=== PATIENT | male | born 1960 | race Caucasian/White ===

== ENCOUNTER 2020-03-19 06:40 | Emergency (ER) | payer MEDICARE, MEDICAID, SELFPAY ==
[2020-03-19] VITALS (7 sets, daily range): BP systolic 140–151; BP diastolic 86–101; PULSE 89–94; RESP 12–20; TEMP 36.6; O2SAT 95–98; BMI 44.0
--- NOTE | 2020-03-19 06:55 | CT_ITS ---
EXAMINATION: CT ANGIOGRAM OF THE CHEST WITH AND WITHOUT CONTRAST (CT PULMONARY ANGIOGRAM FOR PE) CLINICAL INFORMATION: Reason for Exam Chest pain with history of PE. COMPARISON: None TECHNIQUE: Prior to contrast administration, noncontrast localization images were obtained. Subsequently, multidetector volumetric imaging was performed from the thoracic inlet to below the diaphragms following the administration of 65 mL Omnipaque 350 intravenous contrast. No contrast reaction reported Sagittal, coronal, and MIP oblique sagittal reformatted images were obtained on the CT workstation, uploaded to PACS, and reviewed. This CT examination was performed using dose optimization techniques as appropriate, variously including the following: *Automated exposure control *Adjustment of mA and/or kV according to patient size (this includes techniques or standardized protocols for targeted exams where dose is matched to indication/reason for exam; i.e. extremities or head) *Use of iterative reconstruction technique Total exam dose-length product 615 mGy-cm FINDINGS: QUALITY OF STUDY/CONTRAST BOLUS: Satisfactory. PULMONARY ARTERIES: No central or segmental pulmonary emboli. THORACIC AORTA: No evidence of numerous on. LUNG: No focal consolidation, nodules or masses. PLEURA: No pleural effusion or pneumothorax. MEDIASTINUM: Normal heart size. No pericardial effusion. No hilar or mediastinal lymphadenopathy. No evidence of septal bowing or right heart strain. CHEST WALL/AXILLA: No axillary or internal mammary lymphadenopathy. OSSEOUS STRUCTURES: There is a healing right lateral sixth rib fracture. No additional fracture seen. There is moderate spondylosis seen throughout dorsal spine. UPPER ABDOMEN: Visualized liver, spleen and pancreas appears unremarkable. There is a gastric bypass/sleeve surgery. The gallbladder has been surgically removed. No reflux of contrast into the hepatic veins to suggest elevated right heart pressures. CT/CT angio chest PE protocol IMPRESSION: No acute intrathoracic process seen. No evidence of PE. No evidence of aortic dissection. The lungs are clear. Healing right lateral sixth rib fracture. VTE: negative
--- NOTE | 2020-03-19 06:56 | ED_ITS ---
HPI - Chest Pain General Chief Complaint: Chest Pain Stated Complaint: CHEST PAIN Time Seen by Provider: 03/19/20 06:55 Source: patient and EMS Mode of arrival: EMS Limitations: no limitations History of Present Illness HPI narrative: Left-sided chest pain, patient describes the pain as a constant dull aching pain to the left side of the chest radiating to the left shoulder, patient stated that the pain is constant started 2 days ago, associated with cannot take a deep breath, nothing worsens the pain or improve the pain. Patient stated he was evaluated at [facility] yesterday for the pain and he was told is not cardiac related. 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 Related Data Allergies Allergy/AdvReac Type Severity Reaction Status Date / Time bupropion [From WELLBUTRIN] AdvReac Unknown SEIZURE Verified 03/19/20 06:59 Review of Systems Review of Systems: All other systems are reviewed and are negative Constitutional: Reports as per HPI and Reports no additional constitutional complaints Eyes: Reports as per HPI and Reports no additional eye complaints Reports system reviewed and no additional complaints, except as documented Cardiovascular: Reports as per HPI and Reports no additional cardiovascular complaints Respiratory: Reports as per HPI and Reports no additional respiratory complaints Gastrointestinal: Reports as per HPI and Reports no additional gastrointestinal complaints Genitourinary: Reports no additional female genitourinary complaints Musculoskeletal: Reports no additional musculoskeletal complaints Skin/Breast: Reports system reviewed and no additional complaints, except as docu Psychiatric: Reports no additional psychiatric complaints Endocrine: Reports no additional endocrine complaints Hematologic/Lymphatic: Reports no additional hematologic/lymphatic complaints Allergic/Immunologic: Reports no additional allergic/immunologic complaints Reports system reviewed and no additional complaints, except as documented and R eports Abnormal speech present [facility] Past Medical History Medical History (Updated 03/19/20 @ 13:48 by Santosh Camejo MD) Atrial fibrillation Obesity Pulmonary embolism Surgical History History of inguinal hernia repair Hx of gastric bypass S/P cholecystectomy Social History Social History Alcohol intake: current Alcohol intake frequency: 3 or more drinks per day Alcohol type: hard liquor Smoking Status: Never smoker Use of substances other than those prescribed or required for medical reasons: No Advance Directives: No Advance Directives Information Provided: No Physical Exam Vital Signs: Vital Signs: Last Vital Signs Temp 98 F 03/19/20 06:49 Pulse 94 03/19/20 11:46 Resp 20 03/19/20 11:46 BP 140/91 H 03/19/20 11:46 Pulse Ox 97 03/19/20 11:46 Body Mass Index 44.0 Vital signs have been reviewed as normal and appeared to be correct. Blood pressure normal. Heart rate normal. Respiration rate normal. Temperature normal. Oxygen saturation normal. Appearance: Alert. Oriented X3. No acute distress. Head: Normal external exam. Normocephalic. Atraumatic. No Richardson signs noted. No raccoon eyes noted Eyes: PERRLA. EOMI. Conjunctiva and sclera normal. Eyelids normal. ENT: EAC normal. TM's Normal. Pharynx normal. Uvula midline. Moist mucous membranes. No trismus noted. No drooling noted. No muffled voice noted. Neck: Normal inspection. Neck supple. FROM. No adenopathy. Thyroid Normal. No meningeal signs. No neck mass noted. CVS: Normal heart rate and rhythm. Heart sound normal. No murmurs noted. Pulses normal throughout. Respiratory: No respiratory distress. Painless inspiration. Breath sounds normal. No wheezes/rales/rhonchi noted. Chest nontender. No accessory muscle usage noted or decreased air movement noted. Abdomen: Soft and nontender. Bowel sounds normal in all 4 quadrants. No distention noted. No organomegaly noted. No visible injury noted. Back: No CVA tenderness. Full range of motion noted. Skin: Skin warm and dry. Normal skin color. Normal skin turgor. No rashes/lesions/lacerations noted. Extremities: No lower extremity edema. Extremities exhibit normal range of motion. Extremities nontender. Neuro: Oriented X 3. No motor deficit. No sensory deficit. Reflexes normal. MDM - Chest Pain MDM Narrative Medical decision making narrative: Assessment and plan. This is a 59-year-old male presented with left-sided constant chest pain for the past few days, patient has been evaluated at [facility] yesterday and patient was discharged home after he was reassured, patient today had 2-ve troponin, unremarkable CT of the chest for intrathoracic pathology, EKG is unremarkable. Given patient had a negative cardiac marker at a different facility acute ACS is extremely unlikely. Patient now is more concern of detoxing from alcohol, care team input is appreciated, patient will be discharged to a detox place at [facility]. Lab Data Result diagrams: 03/19/20 07:37 03/19/20 07:37 Labs: Lab Results 03/19/20 03/19/20 03/19/20 Range/Units 07:37 07:37 07:37 WBC 7.1 (4.8-10.8) X10*3/uL RBC 3.85 L (4.60-5.80) X10*6/uL Hgb 10.2 L (14.0-18.0) g/dl Hct 32.9 L (42-52) % MCV 85.5 (80-98) fL MCH 26.5 L (27.0-33.0) pg MCHC 31.0 (31.0-36.0) g/dl RDW 16.5 H (11.0-16.0) % Plt Count 172 (160-400) X10*3/uL MPV 10.3 (9.4-12.4) fL Immature Gran % (Auto) 0.6 H (0.0-0.4) % Neut % (Auto) 78.7 H (45-73) % Lymph % (Auto) 10.4 L (20-40) % [place] % (Auto) 8.0 (2-11) % Eos % (Auto) 1.7 (0-4) % Baso % (Auto) 0.6 (0-2) % Lymph # (Auto) 0.7 L (1.2-4.9) X10*3/uL [place] # (Auto) 0.6 (0.1-1.2) X10*3/uL Eos # (Auto) 0.1 (0.0-0.4) X10*3/uL Baso # (Auto) 0.0 (0.0-0.2) X10*3/uL Abs Immat Gran (auto) 0.04 H (0.00-0.03) X10*3/uL Absolute Neuts (auto) 5.6 (2.0-8.3) X10*3/uL Absolute Nucleated RBC 0.000 (0.0-0.012) X10*3/uL Nucleated RBC % (auto) 0.0 (0.0-0.2) /100WBC D-Dimer 250 NG/ML Sodium 144 (135-145) mmol/L Potassium 4.2 (3.3-5.1) mmol/l Chloride 113 H (96-108) mmol/L Carbon Dioxide 22 (22-29) mmol/L Anion Gap 13 (12-20) BUN 17 H (9-16) mg/dL Creatinine 0.82 (0.5-1.4) mg/dL Estim Creat Clear Calc 141.2 Estimated GFR > 60 Random Glucose 91 (60-115) mg/dL Calcium 7.8 L (8.4-10.2) mg/dL Total Bilirubin 0.4 (0.0-1.0) mg/dL Direct Bilirubin 0.2 (0.0-0.5) mg/dL AST 32 (5-37) U/L ALT 40 (0-40) U/L Alkaline Phosphatase 80 (39-117) U/L Troponin I High Sens (<3.5-35.0) ng/L B-Natriuretic Peptide (<100) pg/mL Total Protein 6.1 L (6.5-8.0) g/dL Albumin 3.5 (3.5-5.0) g/dL Lipase 25 (8-78) U/L Urine Color Urine Appearance Urine pH (5.0-8.0) Ur Specific [place] (1.005-1.025) Urine Protein (NEG-TRACE) MG/DL Urine Glucose (UA) (NEG) MG/DL Urine Ketones (NEG) MG/DL Urine Blood (NEG) Urine Nitrite (NEG) Ur Leukocyte Esterase (NEG) Urine RBC (0) /HPF Urine WBC (0-4) /HPF Ur Squamous Epith Cells /LPF Urine Bacteria /LPF 03/19/20 03/19/20 03/19/20 Range/Units 07:37 07:59 11:18 WBC (4.8-10.8) X10*3/uL RBC (4.60-5.80) X10*6/uL Hgb (14.0-18.0) g/dl Hct (42-52) % MCV (80-98) fL MCH (27.0-33.0) pg MCHC (31.0-36.0) g/dl RDW (11.0-16.0) % Plt Count (160-400) X10*3/uL MPV (9.4-12.4) fL Immature Gran % (Auto) (0.0-0.4) % Neut % (Auto) (45-73) % Lymph % (Auto) (20-40) % [place] % (Auto) (2-11) % Eos % (Auto) (0-4) % Baso % (Auto) (0-2) % Lymph # (Auto) (1.2-4.9) X10*3/uL [place] # (Auto) (0.1-1.2) X10*3/uL Eos # (Auto) (0.0-0.4) X10*3/uL Baso # (Auto) (0.0-0.2) X10*3/uL Abs Immat Gran (auto) (0.00-0.03) X10*3/uL Absolute Neuts (auto) (2.0-8.3) X10*3/uL Absolute Nucleated RBC (0.0-0.012) X10*3/uL Nucleated RBC % (auto) (0.0-0.2) /100WBC D-Dimer NG/ML Sodium (135-145) mmol/L Potassium (3.3-5.1) mmol/l Chloride (96-108) mmol/L Carbon Dioxide (22-29) mmol/L Anion Gap (12-20) BUN (9-16) mg/dL Creatinine (0.5-1.4) mg/dL Estim Creat Clear Calc Estimated GFR Random Glucose (60-115) mg/dL Calcium (8.4-10.2) mg/dL Total Bilirubin (0.0-1.0) mg/dL Direct Bilirubin (0.0-0.5) mg/dL AST (5-37) U/L ALT (0-40) U/L Alkaline Phosphatase (39-117) U/L Troponin I High Sens 20.9 19.1 (<3.5-35.0) ng/L B-Natriuretic Peptide 286 H (<100) pg/mL Total Protein (6.5-8.0) g/dL Albumin (3.5-5.0) g/dL Lipase (8-78) U/L Urine Color YELLOW Urine Appearance CLEAR Urine pH 5.5 (5.0-8.0) Ur Specific [place] >= 1.030 H (1.005-1.025) Urine Protein TRACE (NEG-TRACE) MG/DL Urine Glucose (UA) NEG (NEG) MG/DL Urine Ketones NEG (NEG) MG/DL Urine Blood 1+ H (NEG) Urine Nitrite NEG (NEG) Ur Leukocyte Esterase NEG (NEG) Urine RBC 1-4 (0) /HPF Urine WBC 0 (0-4) /HPF Ur Squamous Epith Cells TRACE /LPF Urine Bacteria NONE /LPF Imaging Data CT angio chest: Radiologist's impression: No acute intrathoracic process seen. No evidence of PE. No evidence of aortic dissection. The lungs are clear. Healing right lateral sixth rib fracture. ECG Data ECG #1: Interpretation: Atrial fibrillation at 89 beats per minute, right bundle branch block, normal intervals, no acute ST-T changes. Discharge Plan Discharge Clinical Impression: Chest pain, non-cardiac, Alcohol abuse Patient Disposition: Xfer SNF Instructions: Alcohol Withdrawal (ED), Noncardiac Chest Pain (ED) Referrals: Maty Darnell MD [Primary Care Provider] - 2 days
[2020-03-19 07:54] LABS: MANUAL DIFF FLAG NO
[2020-03-19] MEDS: Morphine Sulfate 2 MG/ML CARTRIDGE 1 MG IVPUSH (07:55)
--- NOTE | 2020-03-19 08:02 | ECG_ITS ---
Test Reason : CHEST WALL PAIN Blood Pressure : / mmHG Vent. Rate : 089 BPM Atrial Rate : 090 BPM P-R Int : 000 ms QRS Dur : 138 ms QT Int : 408 ms P-R-T Axes : 000 016 001 degrees QTc Int : 496 ms Atrial fibrillation Right bundle branch block Abnormal ECG When compared with ECG of 20-SEP-2019 07:09, Right bundle branch block is now Present Referred By: Santosh Camejo Electronically Signed By:SARA CERVANTES
[2020-03-19 08:04] LABS: Basophils Percent Auto 0.6 % (0-2); Eosinophils Absolute Auto 0.1 X10*3/uL (0.0-0.4); Eosinophils Percent Auto 1.7 % (0-4); Hematocrit 32.9 % (42-52); Hemoglobin 10.2 g/dl (14.0-18.0); Imm Gran Abs Auto 0.04 X10*3/uL (0.00-0.03); Imm Gran Pct Auto 0.6 % (0.0-0.4); Lymphocytes Absolute Auto 0.7 X10*3/uL (1.2-4.9); Lymphocytes Percent Auto 10.4 % (20-40); Mean Corpuscular Hemoglobin 26.5 pg (27.0-33.0); Mean Corpuscular Volume 85.5 fL (80-98); Mean Platelet Volume 10.3 fL (9.4-12.4); Monocytes Absolute Auto 0.6 X10*3/uL (0.1-1.2); Neutrophils Absolute Auto 5.6 X10*3/uL (2.0-8.3); Neutrophils Percent Auto 78.7 % (45-73); Platelet Count 172 X10*3/uL (160-400); Red Blood Count 3.85 X10*6/uL (4.60-5.80); Red Cell Distribution Width 16.5 % (11.0-16.0); White Blood Count 7.1 X10*3/uL (4.8-10.8)
[2020-03-19 08:09] LABS: Glucose Urine UA NEG (NEG); Leukocyte Esterase Urine NEG (NEG); Nitrite Urine NEG (NEG); PH 5.5 (5.0-8.0); Specific Gravity - Urine >= 1.030 (1.005-1.025); Urine Blood 1+ (NEG); Urine Ketones NEG (NEG); Urine Protein TRACE MG/DL (NEG-TRACE)
[2020-03-19 08:11] LABS: Appearance Urine CLEAR; Color Urine YELLOW
[2020-03-19 08:19] LABS: D Dimer 250 NG/ML
[2020-03-19 08:28] LABS: Squamous Epithelial Cell Urine TRACE /LPF; WBC Urine 0 /HPF (0-4)
[2020-03-19 08:29] LABS: Alanine Aminotransferase 40 U/L (0-40); Albumin Level 3.5 g/dL (3.5-5.0); Alkaline Phosphatase 80 U/L (39-117); Anion Gap 13 (12-20); Aspartate Amino Transferase 32 U/L (5-37); Bilirubin Direct 0.2 mg/dL (0.0-0.5); Bilirubin Total 0.4 mg/dL (0.0-1.0); Blood Urea Nitrogen 17 mg/dL (9-16); Calcium 7.8 mg/dL (8.4-10.2); Carbon Dioxide 22 mmol/L (22-29); Chloride 113 mmol/L (96-108); Creatinine Clr Calc Pharmacy 141.2; Estimated Glomerular Filt Rate > 60; Glucose Random 91 mg/dL (60-115); Lipase 25 U/L (8-78); Potassium 4.2 mmol/l (3.3-5.1); Sodium 144 mmol/L (135-145); Total Protein 6.1 g/dL (6.5-8.0)
[2020-03-19 08:32] LABS: B Type Natriuretic Peptide 286 pg/mL (<100); Troponin-I High Sensitivity 20.9 ng/L (<3.5-35.0)
[2020-03-19] MEDS: iohexoL 350 MG/ML 100 ML INFUS..BTL IV (09:34)
--- NOTE | 2020-03-19 11:58 | PC.NURSE ---
Pt expressed a need to go to detox for etoh withdrawal. Stated he has been trying to get into [facility]. Dr Camejo made aware and ordered a care team consult. Call placed to care to notify them of consult.
[2020-03-19 12:07] LABS: Troponin-I High Sensitivity 19.1 ng/L (<3.5-35.0)
--- NOTE | 2020-03-19 14:00 | MHC.CARE ---
1245 Met with patient in ED bed 9 who came to the ED by ambulance with reported chest pain and requested help to detox from alcohol today. He stated that yesterday afternoon he went to [facility] as a walk-in and after a 5hr wait there were no beds, still seeking help at this time. Multiple calls to [facility] and [place], [facility] had opening but was unable do an intake with patient. Ultimately they advised him to come for a walk-in now--said coming by taxi from [place] to [place] he would be in good shape to secure a bed today. Called [employer], patient will pay for this himself, sent all patient's labs, test results and summary with him. Communicated with MD and RN
[2020-03-19 14:07] LABS: COVID-19 Test Negative (Negative)
== END 2020-03-19 13:57 | disposition skilled nursing facility (03) ==
PROVIDERS: Emergency Provider Emergency Medicine
DX: R07.89 Other chest pain (principal); F10.10 Alcohol abuse, uncomplicated; Y90.9 Presence of alcohol in blood, level not specified; Z20.828 Contact with and (suspected) exposure to other viral communicable diseases; I48.91 Unspecified atrial fibrillation; Z86.711 Personal history of pulmonary embolism; Z90.49 Acquired absence of other specified parts of digestive tract; Z98.84 Bariatric surgery status
CPT/HCPCS: 36415; 71275; 80048; 80076; 81001; 83690; 83880; 84484; 85025; 85379; 87635; 93005; 96374; 99285; J2270; Q9967

== ENCOUNTER → 2020-06-14 15:13 | Outpatient (BNVA) | payer MEDICARE, MEDICAID, SELFPAY | PROVIDERS: PCP Internal Medicine; Visit Provider Internal Medicine Cardiovascular Disease | DX: I48.20 Chronic atrial fibrillation, unspecified (principal) | CPT/HCPCS: 93005; 99212 ==

== ENCOUNTER → 2020-07-22 08:09 | Outpatient (REF) | payer MEDICARE, MEDICAID, SELFPAY ==
--- NOTE | 2020-07-22 08:12 | CA_ITS ---
Transthoracic Echocardiogram Patient (Last, First, Middle): Bennie Potts X Gender: Male Date of : 1960 Age: 60 Procedure Date: 07/22/2020 Procedure Type: Transthoracic Echocardiogram Location: OP Height: 182.88 cm Weight: 145.15 kg BSA: 2.60 m2 Heart Rate: bpm BP: 132 / 78 mmHg Mechanical Sound Technician: RADHA Referring MD: Jose Huff MD Symptoms: I48.20 - Chronic atrial fibrillation, unspecified Study Quality: Fair ECG Rhythm: Atrial Fibrillation Conclusions: - The left ventricular systolic function is normal. The visually estimated ejection fraction is between 60-65%. - The left atrium is severely dilated. - There is mild dilatation of the ascending aorta measuring 4.33 cm. - No obvious valvular pathology seen on this study. Findings Left Ventricle Normal left ventricular cavity size. There is mildly increased left ventricular wall thickness. The left ventricular systolic function is normal. The visually estimated ejection fraction is between 60-65%. There is no evidence of regional wall motion abnormalities. Diastolic function is indeterminate on the basis of available data. Right Ventricle Normal right ventricular cavity size and systolic function. Atria The left atrium is severely dilated. The right atrium is mildly dilated. Aortic Valve The aortic valve was not well visualized. There is no aortic valve stenosis. There is trace (trivial) aortic valve regurgitation. Mitral Valve The mitral valve appears normal. There is trace mitral valve regurgitation. There is no mitral valve stenosis. Pulmonic Valve The pulmonic valve was not well visualized. Tricuspid Valve There is trace tricuspid valve regurgitation. The pulmonary artery systolic pressure is normal. Great Vessels There is mild dilatation of the ascending aorta measuring 4.33 cm. Venous The inferior vena cava is normal in size and collapses greater than 50% with inspiration. Pericardium/Pleural There is no evidence of pericardial effusion. Prior Study Comparison Changes noted compared to prior study dated: 09/14/2015. LVEF improved. See comments on ascending aorta. Recommendations, Care & Conclusions No obvious valvular pathology seen on this study. Measurements 2D Linear Measurements IVSd: 1.16 0.6-0.9/0.6-1.0 cm LVIDd: 5.33 3.9-5.3/4.2-5.9 cm LVIDs: 4.28 2.0-3.6 cm LVPWd: 1.14 0.7-1.1 cm LV Mass: 302.97 67-162/88-224 g LVOT Diam: 1.99 3.0+(-)1.3 cm 2D Systolic Function EF 4C: 65.00 >55% EF 2C: 56.00 >55% EF BiP: 60.00 >55% Mitral Valve MV Pk E: 0.12 MV Decel Time: 243.01 Aortic Valve AoV Pk Marvin: 1.79 AoV Pk Grad: 12.78 AI Pk Marvin: 3.63 AI Hinds: 1.61 LVOT LVOT Pk Marvin: 1.22 LVOT Mn Marvin: 0.81 LVOT VTI: 0.21 LVOT Pk Grad: 6.00 LVOT Mn Grad: 3.06 LVOT Diam: 1.99 LVOT Area: 3.12 Diastolic Function MV Pk E: 0.12 Tricuspid Valve TR Pk Marvin: 2.59 TR Pk Grad: 26.93 RA Press: 3.00 RVSP: 30.00 Great Vessels Aorta Ao Asc: 4.33 2.1-3.4 cm Updated in Other Vendor System with Status of Final Sigifredo Kearns MD electronically signed on 07/26/2020 10:52:22 AM with status of Final
--- NOTE | 2020-07-22 08:12 | ECG_ITS ---
Hook-up date: 2020-07-22 09:48:00 Duration: 47:59:00 Test Indications: i48.20 CHRONIC AFIB Medications: 054380 QRS complexes 442 Ventricular ectopics which represent <1 % of total QRS comp. * Supraventricular ectopics which represent % of total QRS comp. * Paced QRS complexs which represent % of total QRS comp. VENTRICULAR ECTOPY 416 Isolated 3 Bigeminal Cycles 13 Couplets 0 Runs 0 Beats in Runs * Beats LONGEST at * BPM at :: -- * Beats FASTEST at * BPM at :: -- SUPRAVENTRICULAR ECTOPY * Isolated * Couplets * Runs * Beats in Runs * Beats LONGEST at * BPM at :: -- * Beats FASTEST at * BPM at :: -- HEART RATES 60 MIN at 12:25:12 2020-07-22 105 AVG 190 MAX at 04:31:07 2020-07-23 LONGEST RR 1.7840 secs at 06:46:17 2020-07-23 S-T LEVELS Channel 1 - 128 mm at 09:48:00 2020-07-22 - 128 mm at 09:48:00 2020-07-22 Channel 2 - 128 mm at 09:48:00 2020-07-22 - 128 mm at 09:48:00 2020-07-22 Channel 3 - 128 mm at 02:90:71 -- - 128 mm at 02:90:71 Underlying rhythm is atrial fbrillation; Average ventricular rate 105/min; About 58% of the time, rate >100/min; There is tachycardia during sleep hours as well; Occasional PVCs; isolated; Patient did not report any symptoms in the diary Referred By: Jose Huff Overread By: SARA CERVANTES
== END ==
LOC: HO.CARD 08:09
PROVIDERS: Visit Provider Internal Medicine Cardiovascular Disease
DX: I48.20 Chronic atrial fibrillation, unspecified (principal); I49.3 Ventricular premature depolarization
CPT/HCPCS: 93225; 93226; 93306

== ENCOUNTER → 2020-08-08 14:06 | Outpatient (BNVA) | payer MEDICARE, MEDICAID, SELFPAY | PROVIDERS: PCP Internal Medicine; Referring Provider Internal Medicine; Visit Provider Internal Medicine Cardiovascular Disease | DX: I48.20 Chronic atrial fibrillation, unspecified (principal); I71.2 Thoracic aortic aneurysm, without rupture; Z79.899 Other long term (current) drug therapy | CPT/HCPCS: 99212 ==

== ENCOUNTER 2020-08-23 23:26 | Emergency (ER) | payer MEDICARE, MEDICAID, SELFPAY ==
--- NOTE | 2020-08-23 | ECG_ITS ---
Test Reason : CP Blood Pressure : / mmHG Vent. Rate : 096 BPM Atrial Rate : 159 BPM P-R Int : 000 ms QRS Dur : 148 ms QT Int : 392 ms P-R-T Axes : 000 -01 -07 degrees QTc Int : 495 ms Atrial fibrillation Right bundle branch block Abnormal ECG When compared with ECG of 19-MAR-2020 08:14, T wave inversion now evident in Anterior leads Referred By: Generic ED Physician Electronically Signed By:JASWANT PAYNE MD
--- NOTE | ~2020-08-23 | XR_ITS ---
EXAMINATION: XR CHEST CLINICAL INFORMATION: Chest pain COMPARISON: 03/19/2020 TECHNIQUE: Frontal view of the chest was obtained. FINDINGS: The lungs are hypoinflated. No focal consolidation is seen. No evidence of pneumothorax, pleural effusion, or pulmonary edema. Mildly enlarged cardiac silhouette. No acute osseous findings are seen. XR/XR chest 1V IMPRESSION: Low lung volumes without acute findings.
[2020-08-23 23:31] VITALS: BP 130/86; PULSE 90; O2SAT 95
[2020-08-23 23:33] VITALS: BP 107/70; PULSE 98; RESP 20; TEMP 37.2; O2SAT 96; BMI 45.1
[2020-08-23 23:41] VITALS: PULSE 95
--- NOTE | 2020-08-23 23:53 | ED.CHESTPAIN ---
HPI - Chest Pain General Chief Complaint: Chest Pain Stated Complaint: chest pain Time Seen by Provider: 08/23/20 23:41 Source: patient and EMS Mode of arrival: EMS Limitations: no limitations History of Present Illness HPI narrative: 60-year-old male came in by ambulance for evaluation of chest pain. Chest pain started about 2 hours ago, patient was watching TV, pain started to the left side of his chest going down his left arm, patient reported was associated with shortness of breath, felt like sharp pain to his left side of the chest, severe 10/10, and constant for 2 hours, nothing relieves the pain, nothing make it worse. Patient had history of chest pain patient was evaluated 5 months ago in the emergency department for exactly similar presentation patient was alcohol intoxicated then. Patient admitted that he drank alcohol last night. Related Data Previous Rx's Medication Instructions Recorded apixaban 5 mg tablet 5 mg PO BID 90 Days #180 tab 05/25/20 aripiprazole 5 mg tablet 5 mg PO DAILY 90 Days #90 tab 05/25/20 atorvastatin 40 mg tablet 40 mg PO BEDTIME 90 Days #90 tab 05/25/20 venlafaxine 150 mg 150 mg PO DAILY 90 Days #90 cap 05/25/20 capsule,extended release 24 hr zolpidem 10 mg tablet 10 mg PO BEDTIME PRN 30 Days #30 05/25/20 tab venlafaxine 75 mg tablet 75 mg PO DAILY 90 Days #90 tab 05/26/20 diltiazem HCl 240 mg 240 mg PO DAILY #30 cap 08/02/20 capsule,extended release 24 hr metoprolol tartrate 100 mg tablet 100 mg PO TID 30 Days #90 tab 08/08/20 Allergies Allergy/AdvReac Type Severity Reaction Status Date / Time No Known Allergies Allergy Verified 05/25/20 15:45 Review of Systems Review of Systems: All other systems are reviewed and are negative Constitutional: Reports as per HPI and Reports no additional constitutional complaints Eyes: Reports as per HPI and Reports no additional eye complaints Reports system reviewed and no additional complaints, except as documented Cardiovascular: Reports as per HPI and Reports no additional cardiovascular complaints Respiratory: Reports as per HPI and Reports no additional respiratory complaints Gastrointestinal: Reports as per HPI and Reports no additional gastrointestinal complaints Genitourinary: Reports no additional female genitourinary complaints Musculoskeletal: Reports no additional musculoskeletal complaints Skin/Breast: Reports system reviewed and no additional complaints, except as docu Psychiatric: Reports no additional psychiatric complaints Endocrine: Reports no additional endocrine complaints Hematologic/Lymphatic: Reports no additional hematologic/lymphatic complaints Allergic/Immunologic: Reports no additional allergic/immunologic complaints Reports system reviewed and no additional complaints, except as documented and Reports Abnormal speech present [facility] Past Medical History Medical History Anemia Chronic atrial fibrillation Depression Dyslipidemia History of alcohol abuse Insomnia Morbid obesity Obesity Pulmonary embolism Thoracic aortic aneurysm Toenail deformity Surgical History History of inguinal hernia repair Hx of gastric bypass S/P cholecystectomy Family History Family History Mother No problems noted. Father No problems noted. Social History Social History Alcohol intake: current Alcohol intake frequency: 0-2 drinks per day Alcohol type: wine Smoking Status: Never smoker Smoked in Last 30 Days: No Use of substances other than those prescribed or required for medical reasons: No Advance Directives: No Advance Directives Information Provided: No Physical Exam Vital Signs: Vital Signs: Last Vital Signs Temp 98.9 F 08/23/20 23:33 Pulse 98 08/23/20 23:33 Resp 20 08/23/20 23:33 BP 107/70 08/23/20 23:33 Pulse Ox 96 08/23/20 23:33 Body Mass Index 45.1 Vital signs have been reviewed as appeared to be correct. Blood pressure normal. Heart rate normal. Respiration rate normal. Temperature normal. Oxygen saturation normal. Appearance: Alert. Oriented X3. No acute distress. Head: Normal external exam. Normocephalic. Atraumatic. No Richardson signs noted. No raccoon eyes noted Eyes: PERRLA. EOMI. Conjunctiva and sclera normal. Eyelids normal. ENT: TM's Normal. Pharynx normal. Uvula midline. Moist mucous membranes. No trismus noted. No drooling noted. No muffled voice noted. Neck: Normal inspection. Neck supple. FROM. No adenopathy. Thyroid Normal. No meningeal signs. No neck mass noted. CVS: Normal heart rate and rhythm. Heart sound normal. No murmurs noted. Pulses normal throughout. Respiratory: No respiratory distress. Painless inspiration. Breath sounds normal. No wheezes/rales/rhonchi noted. Chest nontender. No accessory muscle usage noted or decreased air movement noted. Abdomen: Soft and nontender. Bowel sounds normal in all 4 quadrants. No distention noted. No organomegaly noted. No visible injury noted. Back: No CVA tenderness. Full range of motion noted. Skin: Skin warm and dry. Normal skin color. Normal skin turgor. No rashes/lesions/lacerations noted. Extremities: No lower extremity edema. Extremities exhibit normal range of motion. Extremities nontender. Neuro: Oriented X 3. No motor deficit. No sensory deficit. Reflexes normal. Course Course Course Narrative: Assessment and plan. 60-year-old male came in with chest pain patient has unchanged EKG with known history of atrial fibrillation, initial troponin is undetermined, patient is intoxicated with alcohol alcohol level is 198. Will sign out patient for repeat troponin in 3 hours, and re-evaluate patient was more sober. MDM - Chest Pain Lab Data Result diagrams: 08/23/20 23:51 08/23/20 23:51 Labs: Lab Results 08/23/20 08/23/20 08/23/20 Range/Units 23:51 23:51 23:51 WBC 7.8 (4.8-10.8) X10*3/uL RBC 4.27 L (4.60-5.80) X10*6/uL Hgb 11.1 L (14.0-18.0) g/dl Hct 36.0 L (42-52) % MCV 84.3 (80-98) fL MCH 26.0 L (27.0-33.0) pg MCHC 30.8 L (31.0-36.0) g/dl RDW 20.3 H (11.0-16.0) % Plt Count 263 D (160-400) X10*3/uL MPV 9.5 (9.4-12.4) fL Immature Gran % (Auto) 0.8 H (0.0-0.4) % Neut % (Auto) 68.7 (45-73) % Lymph % (Auto) 18.8 L (20-40) % [place] % (Auto) 9.3 (2-11) % Eos % (Auto) 1.9 (0-4) % Baso % (Auto) 0.5 (0-2) % Lymph # (Auto) 1.5 (1.2-4.9) X10*3/uL [place] # (Auto) 0.7 (0.1-1.2) X10*3/uL Eos # (Auto) 0.2 (0.0-0.4) X10*3/uL Baso # (Auto) 0.0 (0.0-0.2) X10*3/uL Abs Immat Gran (auto) 0.06 H (0.00-0.03) X10*3/uL Absolute Neuts (auto) 5.4 (2.0-8.3) X10*3/uL Absolute Nucleated RBC 0.000 (0.0-0.012) X10*3/uL Nucleated RBC % (auto) 0.0 (0.0-0.2) /100WBC PT 12.6 (10.8-13.0) SEC INR 1.1 (0.9-1.1) APTT 31.4 (24.1-38.0) SEC Sodium 144 (135-145) mmol/L Potassium 4.0 (3.3-5.1) mmol/L Chloride 112 H (96-108) mmol/L Carbon Dioxide 22 (22-29) mmol/L Anion Gap 14 (12-20) BUN 10 (9-16) mg/dL Creatinine 0.85 (0.5-1.4) mg/dL Estim Creat Clear Calc 136.3 Estimated GFR > 60 Random Glucose 88 (60-115) mg/dL Calcium 8.3 L D (8.4-10.2) mg/dL Total Bilirubin < 0.2 (0.0-1.0) mg/dL Direct Bilirubin < 0.2 (0.0-0.5) mg/dL AST 21 (5-37) U/L ALT 23 (0-40) U/L Alkaline Phosphatase 78 (39-117) U/L Troponin I High Sens (<3.5-35.0) ng/L B-Natriuretic Peptide (<100) pg/mL Total Protein 6.4 L (6.5-8.0) g/dL Albumin 3.6 (3.5-5.0) g/dL Ethyl Alcohol mg/dL COVID-19 ([facility]OLAN) (Negative) COVID-19 Clin Com 08/23/20 08/23/20 08/23/20 Range/Units 23:52 23:52 23:53 WBC (4.8-10.8) X10*3/uL RBC (4.60-5.80) X10*6/uL Hgb (14.0-18.0) g/dl Hct (42-52) % MCV (80-98) fL MCH (27.0-33.0) pg MCHC (31.0-36.0) g/dl RDW (11.0-16.0) % Plt Count (160-400) X10*3/uL MPV (9.4-12.4) fL Immature Gran % (Auto) (0.0-0.4) % Neut % (Auto) (45-73) % Lymph % (Auto) (20-40) % [place] % (Auto) (2-11) % Eos % (Auto) (0-4) % Baso % (Auto) (0-2) % Lymph # (Auto) (1.2-4.9) X10*3/uL [place] # (Auto) (0.1-1.2) X10*3/uL Eos # (Auto) (0.0-0.4) X10*3/uL Baso # (Auto) (0.0-0.2) X10*3/uL Abs Immat Gran (auto) (0.00-0.03) X10*3/uL Absolute Neuts (auto) (2.0-8.3) X10*3/uL Absolute Nucleated RBC (0.0-0.012) X10*3/uL Nucleated RBC % (auto) (0.0-0.2) /100WBC PT (10.8-13.0) SEC INR (0.9-1.1) APTT (24.1-38.0) SEC Sodium (135-145) mmol/L Potassium (3.3-5.1) mmol/L Chloride (96-108) mmol/L Carbon Dioxide (22-29) mmol/L Anion Gap (12-20) BUN (9-16) mg/dL Creatinine (0.5-1.4) mg/dL Estim Creat Clear Calc Estimated GFR Random Glucose (60-115) mg/dL Calcium (8.4-10.2) mg/dL Total Bilirubin (0.0-1.0) mg/dL Direct Bilirubin (0.0-0.5) mg/dL AST (5-37) U/L ALT (0-40) U/L Alkaline Phosphatase (39-117) U/L Troponin I High Sens 13.4 (<3.5-35.0) ng/L B-Natriuretic Peptide 125 H (<100) pg/mL Total Protein (6.5-8.0) g/dL Albumin (3.5-5.0) g/dL Ethyl Alcohol 194 mg/dL COVID-19 ([facility]OLAN) Negative (Negative) COVID-19 Clin Com See Note Imaging Data Chest x-ray: Radiologist's impression: Known lung volumes without acute findings. ECG Data ECG #1: Interpretation: Atrial fibrillation at 96 beats per minute, right bundle branch block, normal axis deviation. No change from old EKG on 03/19/2020. Discharge Plan Discharge Clinical Impression: Chest pain, Alcohol intoxication Prescriptions: No Action venlafaxine 75 mg tablet 75 mg PO DAILY 90 Days Qty: 90 RF: 3 diltiazem HCl [Cardizem CD] 240 mg capsule,extended release 24hr 240 mg PO DAILY Qty: 30 RF: 5 Eliquis 5 mg tablet 5 mg PO BID 90 Days Qty: 180 RF: 3 aripiprazole [Abilify] 5 mg tablet 5 mg PO DAILY 90 Days Qty: 90 RF: 1 atorvastatin 40 mg tablet 40 mg PO BEDTIME 90 Days Qty: 90 RF: 3 venlafaxine [Effexor XR] 150 mg capsule,extended release 24hr 150 mg PO DAILY 90 Days Qty: 90 RF: 3 zolpidem [Ambien] 10 mg tablet 10 mg PO BEDTIME PRN (Reason: insomnia) 30 Days Qty: 30 RF: 0 metoprolol tartrate 100 mg tablet 100 mg PO TID 30 Days Qty: 90 RF: 5
[2020-08-23 23:57] LABS: MANUAL DIFF FLAG NO
[2020-08-23 23:59] LABS: Basophils Percent Auto 0.5 % (0-2); Eosinophils Absolute Auto 0.2 X10*3/uL (0.0-0.4); Eosinophils Percent Auto 1.9 % (0-4); Hemoglobin 11.1 g/dl (14.0-18.0); Imm Gran Abs Auto 0.06 X10*3/uL (0.00-0.03); Imm Gran Pct Auto 0.8 % (0.0-0.4); Lymphocytes Absolute Auto 1.5 X10*3/uL (1.2-4.9); Lymphocytes Percent Auto 18.8 % (20-40); Mean Corpuscular HGB Conc 30.8 g/dl (31.0-36.0); Mean Corpuscular Volume 84.3 fL (80-98); Mean Platelet Volume 9.5 fL (9.4-12.4); Monocytes Absolute Auto 0.7 X10*3/uL (0.1-1.2); Monocytes Percent Auto 9.3 % (2-11); Neutrophils Absolute Auto 5.4 X10*3/uL (2.0-8.3); Neutrophils Percent Auto 68.7 % (45-73); Platelet Count 263 X10*3/uL (160-400); Red Blood Count 4.27 X10*6/uL (4.60-5.80); Red Cell Distribution Width 20.3 % (11.0-16.0); White Blood Count 7.8 X10*3/uL (4.8-10.8)
[2020-08-24 00:08] LABS: INTERNATIONAL NORM RATIO 1.1 (0.9-1.1); Prothrombin Time 12.6 SEC (10.8-13.0)
[2020-08-24 00:11] LABS: Partial Thromboplastin Time 31.4 SEC (24.1-38.0)
[2020-08-24 00:14] LABS: COVID-19 Test Negative (Negative); IDNOW Serial# 9DD0AD1C
[2020-08-24 00:28] LABS: Alanine Aminotransferase 23 U/L (0-40); Albumin Level 3.6 g/dL (3.5-5.0); Alkaline Phosphatase 78 U/L (39-117); Anion Gap 14 (12-20); Aspartate Amino Transferase 21 U/L (5-37); Bilirubin Direct < 0.2 mg/dL (0.0-0.5); Bilirubin Total < 0.2 mg/dL (0.0-1.0); Blood Urea Nitrogen 10 mg/dL (9-16); Calcium 8.3 mg/dL (8.4-10.2); Carbon Dioxide 22 mmol/L (22-29); Chloride 112 mmol/L (96-108); Creatinine Clr Calc Pharmacy 136.3; Estimated Glomerular Filt Rate > 60; Glucose Random 88 mg/dL (60-115); Sodium 144 mmol/L (135-145); Total Protein 6.4 g/dL (6.5-8.0)
[2020-08-24 00:29] LABS: Ethanol 194 mg/dL
[2020-08-24 00:32] LABS: B Type Natriuretic Peptide 125 pg/mL (<100); Troponin-I High Sensitivity 13.4 ng/L (<3.5-35.0)
[2020-08-24 01:00] LABS: Glucose Urine UA NEG (NEG); Leukocyte Esterase Urine NEG (NEG); Nitrite Urine NEG (NEG); PH 5.5 (5.0-8.0); Specific Gravity - Urine <= 1.005 (1.005-1.025); Urine Blood NEG (NEG); Urine Ketones NEG (NEG); Urine Protein NEG (NEG-TRACE)
[2020-08-24] MEDS: 0.9 % Sodium Chloride 1,000 ML 999 ML IVCONT (01:00)
[2020-08-24 01:02] LABS: Appearance Urine CLEAR; Color Urine YELLOW
[2020-08-24 02:00] VITALS: BP 108/68; PULSE 98; RESP 20; TEMP 37.2; O2SAT 96
[2020-08-24 03:31] LABS: Troponin-I High Sensitivity 13.3 ng/L (<3.5-35.0)
[2020-08-24 04:00] VITALS: BP 138/85; BP 94/55; PULSE 89; PULSE 98; RESP 15; RESP 22; O2SAT 97
== END 2020-08-24 05:25 | disposition home or self-care (01) ==
PROVIDERS: Emergency Provider Emergency Medicine
DX: R07.9 Chest pain, unspecified (principal); F10.120 Alcohol abuse with intoxication, uncomplicated; Y90.9 Presence of alcohol in blood, level not specified; Z20.822 Contact with and (suspected) exposure to COVID-19; E78.5 Hyperlipidemia, unspecified; I48.20 Chronic atrial fibrillation, unspecified; Z86.711 Personal history of pulmonary embolism; Z79.02 Long term (current) use of antithrombotics/antiplatelets; Z79.01 Long term (current) use of anticoagulants
CPT/HCPCS: 36415; 71045; 80048; 80076; 80320; 81003; 83880; 84484; 85025; 85610; 85730; 87635; 93005; 96360; 99284; 99285

== ENCOUNTER 2020-10-24 02:34 | Emergency (ER) | payer MEDICARE, MEDICAID, SELFPAY ==
[2020-10-24] VITALS (9 sets, daily range): BP systolic 100–154; BP diastolic 50–92; PULSE 112–170; RESP 14–22; TEMP 36.6; O2SAT 93–96; BMI 43.7
--- NOTE | ~2020-10-24 | XR_ITS ---
EXAMINATION: XR CHEST CLINICAL INFORMATION: Chest pain, shortness of breath COMPARISON: 08/23/2020 TECHNIQUE: Frontal view of the chest was obtained. FINDINGS: The lungs are clear with no focal consolidation. No evidence of pneumothorax, pulmonary edema, or pleural effusions. The cardiomediastinal silhouette is unremarkable. No acute osseous findings. XR/XR chest 1V IMPRESSION: No acute cardiopulmonary findings.
--- NOTE | ~2020-10-24 | CT_ITS ---
EXAMINATION: CT CHEST WITHOUT CONTRAST CLINICAL INFORMATION: Suspect left rib fracture, fall yesterday COMPARISON: 03/19/2020 TECHNIQUE: Multidetector volumetric CT imaging of the chest was done. Axial MIP volume rendering provided. Sagittal and coronal reformatted images were obtained. This CT examination was performed using dose optimization techniques as appropriate, variously including the following: *Automated exposure control *Adjustment of mA and/or kV according to patient size (this includes techniques or standardized protocols for targeted exams where dose is matched to indication/reason for exam; i.e. extremities or head) *Use of iterative reconstruction technique DLP: 739 mGy-cm FINDINGS: LUNGS: Mild streaky bilateral lower lobe opacities favor subsegmental atelectasis or scarring. No additional consolidation is seen. A right middle lobe nodule measuring 4-5 mm on image [id number] appears unchanged from 07/11/2017, most consistent with a benign etiology. A subpleural 4 mm right lower lobe nodule on image 339 appears new from prior. MEDIASTINUM: The visualized thyroid gland is unremarkable. Small hiatal hernia is present. There are subcentimeter mediastinal lymph nodes within the range of normal variation. Cardiac size is within normal limits; no pericardial effusion. The aorta appears mildly prominent, measuring approximately 4.0 cm in diameter. Calcification is present at the aortic arch. PLEURA: There is no pleural effusion. No pleural mass or thickening. AXILLA: No lymphadenopathy. UPPER ABDOMEN: Patient is status post cholecystectomy. Suture line is present along the stomach. OSSEOUS STRUCTURES: No acute rib fracture is seen. A few healed bilateral rib fractures are redemonstrated. There are changes of diffuse idiopathic skeletal hyperostosis in the spine. CT/CT chest wo con IMPRESSION: 1. No acute fracture identified. 2. Subpleural 4 mm right lower lobe nodule appears new from prior. According to the UPDATED 2017 Fleischner Society recommendations, the advised follow-up imaging for solid nodules < 6 mm is: LOW RISK PATIENT: No routine follow-up. HIGH RISK PATIENT: Optional CT at 12 months. 3. Mildly prominent aorta measuring 4.0 cm in diameter. 4. Small hiatal hernia.
--- NOTE | 2020-10-24 02:50 | ECG_ITS ---
Test Reason : CHEST PAIN Blood Pressure : / mmHG Vent. Rate : 115 BPM Atrial Rate : 110 BPM P-R Int : 000 ms QRS Dur : 140 ms QT Int : 354 ms P-R-T Axes : 000 -08 -18 degrees QTc Int : 489 ms Atrial fibrillation with rapid ventricular response Right bundle branch block Abnormal ECG When compared to the previous EKG of Vent. rate has increased Referred By: Doris Snowden Electronically Signed By:JASWANT PAYNE MD
--- NOTE | 2020-10-24 02:51 | ED_ITS ---
HPI - Chest Pain General Chief Complaint: Chest Pain Stated Complaint: sob/cp Time Seen by Provider: 10/24/20 02:49 Source: patient and EMS Mode of arrival: EMS History of Present Illness HPI narrative: 60-year-old male who is morbidly obese in brought in by EMS for onset of epigastric/chest pain that started while watching TV and he states radiates down his left arm and worsens with deep inspiration and movement. He denies any fever, chills, nausea, vomiting, diarrhea and states that he had 4 glasses of wine yesterday after he was discharged from [facility]. He states his last drink was at approximately 3:30 p.m. yesterday afternoon. He states he took all of his prescribed medications yesterday. As per EMS patient was noted to be diaphoretic and pale on arrival. Related Data Previous Rx's Medication Instructions Recorded apixaban 5 mg tablet 5 mg PO BID 90 Days #180 tab 05/25/20 aripiprazole 5 mg tablet 5 mg PO DAILY 90 Days #90 tab 05/25/20 atorvastatin 40 mg tablet 40 mg PO BEDTIME 90 Days #90 tab 05/25/20 venlafaxine 150 mg 150 mg PO DAILY 90 Days #90 cap 05/25/20 capsule,extended release 24 hr zolpidem 10 mg tablet 10 mg PO BEDTIME PRN 30 Days #30 05/25/20 tab diltiazem HCl 240 mg 240 mg PO DAILY #30 cap 08/02/20 capsule,extended release 24 hr metoprolol tartrate 100 mg tablet 100 mg PO TID 30 Days #90 tab 08/08/20 Allergies Allergy/AdvReac Type Severity Reaction Status Date / Time No Known Allergies Allergy Verified 10/24/20 02:47 Review of Systems Review of Systems: Pertinent positives and negatives as stated in HPI 10 point review of systems is otherwise negative. [facility] Past Medical History Source: nursing notes reviewed Medical History Anemia Chronic atrial fibrillation Depression Dyslipidemia History of alcohol abuse Insomnia Morbid obesity Obesity Pulmonary embolism Thoracic aortic aneurysm Toenail deformity Surgical History History of inguinal hernia repair Hx of gastric bypass S/P cholecystectomy Family History Family History Mother No problems noted. Father No problems noted. Family/Other Substance use disorder Social History Social History Housing: House Alcohol intake: current Alcohol intake frequency: 0-2 drinks per day Patient Tobacco Use Status: Never used Tobacco e-Cigarette/Vaping Use: Never Used Second Hand Smoke Exposure: No Use of substances other than those prescribed or required for medical reasons: No Advance Directives: No Advance Directives Information Provided: No service: No Current occupational status: retired Physical Exam Vital Signs: Vital Signs: Last Vital Signs Temp 98 F 10/24/20 02:48 Pulse 129 H 10/24/20 09:04 Resp 20 10/24/20 09:03 BP 124/82 10/24/20 09:04 Pulse Ox 96 10/24/20 09:03 Body Mass Index 43.7 VITAL SIGNS: Reviewed. GENERAL: Well developed, well nourished, in no acute distress. HEAD: Normocephalic/atraumatic EYES: PERRLA, EOMI intact without pain, no nystagmus EARS: Ext canals without abnormality, TMs non-bulging and non-erythematous NOSE: Nares patent bilateral OROPHARYNX: no oral lesions noted, posterior pharynx clear, tacky mucosa NECK: Supple, no adenopathy LUNGS: Normal breath sounds, no tachypnea, no rales/rhonchi. SpO2<93>, reproducible pain on palpation at lower sternum and epigastrium as well as along left lower ribs CARDIOVASCULAR: Regular rate and rhythm without noted murmurs, no JVD but 1+ pitting edema to right lower extremity, symmetrical pulses bilaterally ABDOMEN: Morbidly obese, exam limited by body habitus, Soft, non-tender, non-distended with bowel sounds. MUSCULOSKELETAL: No tenderness, deformities, or effusions noted on gross in spection. EXTREMITIES: No cyanosis, clubbing or edema. SKIN: Inspection of the skin reveals no rashes NEUROLOGIC: Alert and oriented x 4. Strength and sensation to light touch were grossly intact x 4. Course Course Course Narrative: This is a 60-year-old male with history and clinical presentation possible pancreatitis, gastritis, rib fracture (given recent fall), less likely felt to be pneumonia or cardiac in nature as quick review of EKG is without acute changes and pain is reproducible on palpation and on deep inspiration. Of note, patient has reported history of PE and thoracic aortic an eurysm (on review of CTA from 03/2020 there is no mention of thoracic aortic aneurysm). Reviewed collateral information obtained from [facility] [place]: Patient was evaluated 10/23 for fall chest pain and had received aspirin and nitro EN route by EMS. Patient underwent CT of head and C-spine as well as cardiac workup without acute findings. Patient was then discharged home. It was noted in the records that patient drinks a qt of liquor a day. Review of all investigations without acute findings and serial troponins without reaching delta 50% and no changes in EKG tracing when compared to prior. The patient is currently chest pain-free and review of imaging negative for acute findings to suggest rib fracture. Patient was informed of results and discharged in stable condition with instructions follow-up with his primary care provider. MDM - Chest Pain Lab Data Result diagrams: 10/24/20 03:23 10/24/20 03:22 Labs: Lab Results 10/24/20 10/24/20 10/24/20 Range/Units 03:22 03:22 03:22 WBC (4.8-10.8) X10*3/uL RBC (4.60-5.80) X10*6/uL Hgb (14.0-18.0) g/dl Hct (42-52) % MCV (80-98) fL MCH (27.0-33.0) pg MCHC (31.0-36.0) g/dl RDW (11.0-16.0) % Plt Count (160-400) X10*3/uL MPV (9.4-12.4) fL Immature Gran % (Auto) (0.0-0.4) % Neut % (Auto) (45-73) % Lymph % (Auto) (20-40) % [place] % (Auto) (2-11) % Eos % (Auto) (0-4) % Baso % (Auto) (0-2) % Lymph # (Auto) (1.2-4.9) X10*3/uL [place] # (Auto) (0.1-1.2) X10*3/uL Eos # (Auto) (0.0-0.4) X10*3/uL Baso # (Auto) (0.0-0.2) X10*3/uL Abs Immat Gran (auto) (0.00-0.03) X10*3/uL Absolute Neuts (auto) (2.0-8.3) X10*3/uL Absolute Nucleated RBC (0.0-0.012) X10*3/uL Nucleated RBC % (auto) (0.0-0.2) /100WBC PT 12.1 (9.9-13.0) SEC INR 1.1 (0.9-1.1) Sodium 144 (135-145) mmol/L Potassium 3.9 (3.3-5.1) mmol/L Chloride 113 H (96-108) mmol/L Carbon Dioxide 20 L (22-29) mmol/L Anion Gap 15 (12-20) BUN 20 H D (9-16) mg/dL Creatinine 1.00 (0.5-1.4) mg/dL Estim Creat Clear Calc 113.7 Estimated GFR > 60 Random Glucose 94 (60-115) mg/dL Lactic Acid (0.5-2.0) mmol/L Calcium 8.2 L (8.4-10.2) mg/dL Magnesium 2.2 (1.6-2.6) mg/dL Total Bilirubin 0.4 (0.0-1.0) mg/dL AST 29 (5-37) U/L ALT 23 (0-40) U/L Alkaline Phosphatase 90 (39-117) U/L Troponin I High Sens 24.3 D (<3.5-35.0) ng/L B-Natriuretic Peptide 104 H (<100) pg/mL Total Protein 6.7 (6.5-8.0) g/dL Albumin 3.7 (3.5-5.0) g/dL Lipase 55 (8-78) U/L Urine Color Urine Appearance Urine pH (5.0-8.0) Ur Specific [place] (1.005-1.025) Urine Protein (NEG-TRACE) MG/DL Urine Glucose (UA) (NEG) MG/DL Urine Ketones (NEG) MG/DL Urine Blood (NEG) Urine Nitrite (NEG) Ur Leukocyte Esterase (NEG) Urine RBC (0) /HPF Urine WBC (0-4) /HPF Ur Squamous Epith Cells /LPF Urine Bacteria /LPF Urine Mucus /LPF Urine Opiates Screen (Not Detect) Ur Barbiturates Screen (Not Detect) Ur Phencyclidine Scrn (Not Detect) Ur Amphetamines Screen (Not Detect) U Benzodiazepines Scrn (Not Detect) Urine Cocaine Screen (Not Detect) U Marijuana (THC) Screen (Not Detect) Ethyl Alcohol mg/dL 10/24/20 10/24/20 10/24/20 Range/Units 03:22 03:23 03:23 WBC 6.4 (4.8-10.8) X10*3/uL RBC 4.17 L (4.60-5.80) X10*6/uL Hgb 11.3 L (14.0-18.0) g/dl Hct 37.3 L (42-52) % MCV 89.4 (80-98) fL MCH 27.1 (27.0-33.0) pg MCHC 30.3 L (31.0-36.0) g/dl RDW 20.2 H (11.0-16.0) % Plt Count 191 D (160-400) X10*3/uL MPV 9.5 (9.4-12.4) fL Immature Gran % (Auto) 0.3 (0.0-0.4) % Neut % (Auto) 75.3 H (45-73) % Lymph % (Auto) 12.6 L (20-40) % [place] % (Auto) 9.3 (2-11) % Eos % (Auto) 1.9 (0-4) % Baso % (Auto) 0.6 (0-2) % Lymph # (Auto) 0.8 L (1.2-4.9) X10*3/uL [place] # (Auto) 0.6 (0.1-1.2) X10*3/uL Eos # (Auto) 0.1 (0.0-0.4) X10*3/uL Baso # (Auto) 0.0 (0.0-0.2) X10*3/uL Abs Immat Gran (auto) 0.02 (0.00-0.03) X10*3/uL Absolute Neuts (auto) 4.8 (2.0-8.3) X10*3/uL Absolute Nucleated RBC 0.000 (0.0-0.012) X10*3/uL Nucleated RBC % (auto) 0.0 (0.0-0.2) /100WBC PT (9.9-13.0) SEC INR (0.9-1.1) Sodium (135-145) mmol/L Potassium (3.3-5.1) mmol/L Chloride (96-108) mmol/L Carbon Dioxide (22-29) mmol/L Anion Gap (12-20) BUN (9-16) mg/dL Creatinine (0.5-1.4) mg/dL Estim Creat Clear Calc Estimated GFR Random Glucose (60-115) mg/dL Lactic Acid 1.4 (0.5-2.0) mmol/L Calcium (8.4-10.2) mg/dL Magnesium (1.6-2.6) mg/dL Total Bilirubin (0.0-1.0) mg/dL AST (5-37) U/L ALT (0-40) U/L Alkaline Phosphatase (39-117) U/L Troponin I High Sens (<3.5-35.0) ng/L B-Natriuretic Peptide (<100) pg/mL Total Protein (6.5-8.0) g/dL Albumin (3.5-5.0) g/dL Lipase (8-78) U/L Urine Color Urine Appearance Urine pH (5.0-8.0) Ur Specific [place] (1.005-1.025) Urine Protein (NEG-TRACE) MG/DL Urine Glucose (UA) (NEG) MG/DL Urine Ketones (NEG) MG/DL Urine Blood (NEG) Urine Nitrite (NEG) Ur Leukocyte Esterase (NEG) Urine RBC (0) /HPF Urine WBC (0-4) /HPF Ur Squamous Epith Cells /LPF Urine Bacteria /LPF Urine Mucus /LPF Urine Opiates Screen (Not Detect) Ur Barbiturates Screen (Not Detect) Ur Phencyclidine Scrn (Not Detect) Ur Amphetamines Screen (Not Detect) U Benzodiazepines Scrn (Not Detect) Urine Cocaine Screen (Not Detect) U Marijuana (THC) Screen (Not Detect) Ethyl Alcohol 163 mg/dL 10/24/20 10/24/20 10/24/20 Range/Units 05:22 05:22 07:20 WBC (4.8-10.8) X10*3/uL RBC (4.60-5.80) X10*6/uL Hgb (14.0-18.0) g/dl Hct (42-52) % MCV (80-98) fL MCH (27.0-33.0) pg MCHC (31.0-36.0) g/dl RDW (11.0-16.0) % Plt Count (160-400) X10*3/uL MPV (9.4-12.4) fL Immature Gran % (Auto) (0.0-0.4) % Neut % (Auto) (45-73) % Lymph % (Auto) (20-40) % [place] % (Auto) (2-11) % Eos % (Auto) (0-4) % Baso % (Auto) (0-2) % Lymph # (Auto) (1.2-4.9) X10*3/uL [place] # (Auto) (0.1-1.2) X10*3/uL Eos # (Auto) (0.0-0.4) X10*3/uL Baso # (Auto) (0.0-0.2) X10*3/uL Abs Immat Gran (auto) (0.00-0.03) X10*3/uL Absolute Neuts (auto) (2.0-8.3) X10*3/uL Absolute Nucleated RBC (0.0-0.012) X10*3/uL Nucleated RBC % (auto) (0.0-0.2) /100WBC PT (9.9-13.0) SEC INR (0.9-1.1) Sodium (135-145) mmol/L Potassium (3.3-5.1) mmol/L Chloride (96-108) mmol/L Carbon Dioxide (22-29) mmol/L Anion Gap (12-20) BUN (9-16) mg/dL Creatinine (0.5-1.4) mg/dL Estim Creat Clear Calc Estimated GFR Random Glucose (60-115) mg/dL Lactic Acid (0.5-2.0) mmol/L Calcium (8.4-10.2) mg/dL Magnesium (1.6-2.6) mg/dL Total Bilirubin (0.0-1.0) mg/dL AST (5-37) U/L ALT (0-40) U/L Alkaline Phosphatase (39-117) U/L Troponin I High Sens 28.6 (<3.5-35.0) ng/L B-Natriuretic Peptide (<100) pg/mL Total Protein (6.5-8.0) g/dL Albumin (3.5-5.0) g/dL Lipase (8-78) U/L Urine Color YELLOW Urine Appearance CLEAR Urine pH 5.5 (5.0-8.0) Ur Specific [place] >= 1.030 H (1.005-1.025) Urine Protein TRACE (NEG-TRACE) MG/DL Urine Glucose (UA) NEG (NEG) MG/DL Urine Ketones NEG (NEG) MG/DL Urine Blood TRACE (NEG) Urine Nitrite NEG (NEG) Ur Leukocyte Esterase NEG (NEG) Urine RBC 0-2 (0) /HPF Urine WBC 0 (0-4) /HPF Ur Squamous Epith Cells 1+ /LPF Urine Bacteria NONE /LPF Urine Mucus 1+ /LPF Urine Opiates Screen Not Detected (Not Detect) Ur Barbiturates Screen Not Detected (Not Detect) Ur Phencyclidine Scrn Not Detected (Not Detect) Ur Amphetamines Screen Not Detected (Not Detect) U Benzodiazepines Scrn Not Detected (Not Detect) Urine Cocaine Screen Not Detected (Not Detect) U Marijuana (THC) Screen Not Detected (Not Detect) Ethyl Alcohol mg/dL ECG Data ECG #1: Attestation: I personally reviewed and interpreted this ECG as follows: Prior ECG tracings: available for review (08/23/2020 no acute changes on comparison) Interpretation: Atrial fibrillation with RVR, heart rate-115, RBBB, no STEMI Discharge Plan Discharge Clinical Impression: Atypical chest pain, Costochondritis, Alcohol intoxication Patient Disposition: Home, Self-Care Instructions: Costochondritis (ED) Additional Instructions: 1. Resume all home medications as prescribed. 2. 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 3. Recommend [id number] Tylenol/lidocaine patch for symptom relief of suspected costochondritis. Return to the ER for acute worsening of symptoms. Prescriptions: No Action diltiazem HCl [Cardizem CD] 240 mg capsule,extended release 24hr 240 mg PO DAILY Qty: 30 RF: 5 Eliquis 5 mg tablet 5 mg PO BID 90 Days Qty: 180 RF: 3 aripiprazole [Abilify] 5 mg tablet 5 mg PO DAILY 90 Days Qty: 90 RF: 1 atorvastatin 40 mg tablet 40 mg PO BEDTIME 90 Days Qty: 90 RF: 3 venlafaxine [Effexor XR] 150 mg capsule,extended release 24hr 150 mg PO DAILY 90 Days Qty: 90 RF: 3 zolpidem [Ambien] 10 mg tablet 10 mg PO BEDTIME PRN (Reason: insomnia) 30 Days Qty: 30 RF: 0 metoprolol tartrate 100 mg tablet 100 mg PO TID 30 Days Qty: 90 RF: 5 Referrals: Physician,Unknown [Primary Care Provider] - 2 days
--- NOTE | 2020-10-24 02:56 | PC.NURSE ---
Called [facility] at [phone] for medical records per
[2020-10-24 03:29] LABS: MANUAL DIFF FLAG NO
[2020-10-24 03:31] LABS: Basophils Percent Auto 0.6 % (0-2); Eosinophils Absolute Auto 0.1 X10*3/uL (0.0-0.4); Eosinophils Percent Auto 1.9 % (0-4); Hematocrit 37.3 % (42-52); Hemoglobin 11.3 g/dl (14.0-18.0); Imm Gran Abs Auto 0.02 X10*3/uL (0.00-0.03); Imm Gran Pct Auto 0.3 % (0.0-0.4); Lymphocytes Absolute Auto 0.8 X10*3/uL (1.2-4.9); Lymphocytes Percent Auto 12.6 % (20-40); Mean Corpuscular HGB Conc 30.3 g/dl (31.0-36.0); Mean Corpuscular Hemoglobin 27.1 pg (27.0-33.0); Mean Corpuscular Volume 89.4 fL (80-98); Mean Platelet Volume 9.5 fL (9.4-12.4); Monocytes Absolute Auto 0.6 X10*3/uL (0.1-1.2); Monocytes Percent Auto 9.3 % (2-11); Neutrophils Absolute Auto 4.8 X10*3/uL (2.0-8.3); Neutrophils Percent Auto 75.3 % (45-73); Platelet Count 191 X10*3/uL (160-400); Red Blood Count 4.17 X10*6/uL (4.60-5.80); Red Cell Distribution Width 20.2 % (11.0-16.0); White Blood Count 6.4 X10*3/uL (4.8-10.8)
[2020-10-24 03:36] LABS: INTERNATIONAL NORM RATIO 1.1 (0.9-1.1); Prothrombin Time 12.1 SEC (9.9-13.0)
[2020-10-24 03:50] LABS: Ethanol 163 mg/dL
[2020-10-24 03:50] LABS: Lactic Acid 1.4 mmol/L (0.5-2.0)
[2020-10-24 03:54] LABS: Alanine Aminotransferase 23 U/L (0-40); Albumin Level 3.7 g/dL (3.5-5.0); Alkaline Phosphatase 90 U/L (39-117); Anion Gap 15 (12-20); Aspartate Amino Transferase 29 U/L (5-37); Bilirubin Total 0.4 mg/dL (0.0-1.0); Blood Urea Nitrogen 20 mg/dL (9-16); Calcium 8.2 mg/dL (8.4-10.2); Carbon Dioxide 20 mmol/L (22-29); Chloride 113 mmol/L (96-108); Creatinine Clr Calc Pharmacy 113.7; Estimated Glomerular Filt Rate > 60; Glucose Random 94 mg/dL (60-115); Lipase 55 U/L (8-78); Magnesium 2.2 mg/dL (1.6-2.6); Potassium 3.9 mmol/L (3.3-5.1); Sodium 144 mmol/L (135-145); Total Protein 6.7 g/dL (6.5-8.0)
[2020-10-24 03:56] LABS: Troponin-I High Sensitivity 24.3 ng/L (<3.5-35.0)
[2020-10-24] MEDS: Magnesium Hydrox/Alum Hydrox 30 ML ORAL.SUSP PO (04:34)
[2020-10-24] MEDS: Lidocaine HCl Viscous 2 % 15 ML SOLUTION 10 ML MUCOUS MEM (04:34)
[2020-10-24 04:38] LABS: B Type Natriuretic Peptide 104 pg/mL (<100)
[2020-10-24 05:28] LABS: Appearance Urine CLEAR; Color Urine YELLOW; Glucose Urine UA NEG (NEG); Leukocyte Esterase Urine NEG (NEG); Nitrite Urine NEG (NEG); PH 5.5 (5.0-8.0); Specific Gravity - Urine >= 1.030 (1.005-1.025); Urine Blood TRACE (NEG); Urine Ketones NEG (NEG); Urine Protein TRACE MG/DL (NEG-TRACE)
[2020-10-24] MEDS: LORazepam 2 MG/ML VIAL 1 MG IVPUSH ×2 (05:36→08:42)
[2020-10-24 05:37] LABS: Mucus Urine 1+ /LPF; RBC Urine 0-2 /HPF (0); Squamous Epithelial Cell Urine 1+ /LPF; WBC Urine 0 /HPF (0-4)
[2020-10-24 05:49] LABS: Amphetamine Screen Urine Not Detected (Not Detect); Barbiturates, Urine Not Detected (Not Detect); Benzodiazepines Screen Urine Not Detected (Not Detect); Cannabinoid Screen Urine Not Detected (Not Detect); Cocaine Screen Urine Not Detected (Not Detect); Opiate Screen Urine Not Detected (Not Detect); Phencyclidine Screen Urine Not Detected (Not Detect)
[2020-10-24] MEDS: Metoprolol Tartrate 5 MG/5 ML VIAL IVPUSH ×2 (07:00→09:04)
[2020-10-24 08:00] LABS: Troponin-I High Sensitivity 28.6 ng/L (<3.5-35.0)
--- NOTE | 2020-10-24 08:57 | PC.NURSE ---
pt states that he wants to leave, aware.
--- NOTE | 2020-10-24 09:05 | PC.NURSE ---
dr. gabriel at bedside conversing/explaining with/to pt that all his lab work were negative and he needs to take his prescribed meds when he gets home and he needs to follow up with his pcp.
== END 2020-10-24 09:33 | disposition home or self-care (01) ==
PROVIDERS: Emergency Provider Student in an Organized Health Care Education/Training Program
DX: M94.0 Chondrocostal junction syndrome [Tietze] (principal); F10.129 Alcohol abuse with intoxication, unspecified; Y90.6 Blood alcohol level of 120-199 mg/100 ml; I48.20 Chronic atrial fibrillation, unspecified; E78.5 Hyperlipidemia, unspecified; Z86.711 Personal history of pulmonary embolism; Z79.01 Long term (current) use of anticoagulants; Z79.899 Other long term (current) drug therapy
CPT/HCPCS: 36415; 71045; 71250; 80053; 80307; 81001; 82077; 83605; 83690; 83735; 83880; 84484; 85025; 85610; 87040; 93005; 96374; 96375; 96376; 99285; J2060

== ENCOUNTER 2020-12-15 05:09 | Inpatient (IN) | payer MEDICARE, MEDICAID, SELFPAY ==
[2020-12-15] VITALS (21 sets, daily range): BP systolic 106–147; BP diastolic 57–93; PULSE 90–149; RESP 12–20; TEMP 36.3–36.9; O2SAT 83–99; BMI 47.9
--- NOTE | 2020-12-15 | ECG_ITS ---
Test Reason : CP Blood Pressure : / mmHG Vent. Rate : 086 BPM Atrial Rate : 127 BPM P-R Int : 000 ms QRS Dur : 148 ms QT Int : 420 ms P-R-T Axes : 000 -04 -07 degrees QTc Int : 502 ms Atrial fibrillation Right bundle branch block Abnormal ECG When compared with ECG of 15-DEC-2020 05:20, Premature ventricular complexes are no longer Present Vent. rate has decreased Referred By: Wanda Saucedo Electronically Signed By:ADEEL ARMENDARIZ
--- NOTE | 2020-12-15 | ECG_ITS ---
Test Reason : CP Blood Pressure : / mmHG Vent. Rate : 147 BPM Atrial Rate : 131 BPM P-R Int : 000 ms QRS Dur : 140 ms QT Int : 322 ms P-R-T Axes : 000 -10 -12 degrees QTc Int : 503 ms Atrial fibrillation with rapid ventricular response with premature ventricular or aberrantly conducted complexes Right bundle branch block Abnormal ECG When compared with ECG of 24-OCT-2020 02:49, No significant change was found Referred By: Doris Snowden Electronically Signed By:ADEEL ARMENDARIZ
--- NOTE | ~2020-12-15 | CT_ITS ---
EXAMINATION: CT ANGIOGRAM OF THE CHEST WITH AND WITHOUT CONTRAST (CT PULMONARY ANGIOGRAM FOR PE) CLINICAL INFORMATION: Reason for Exam chest pain, SOB COMPARISON: Previous chest x-ray from earlier the same day chest CT scans most recent October 2020 TECHNIQUE: Prior to contrast administration, noncontrast localization images were obtained. Subsequently, multidetector volumetric imaging was performed from the thoracic inlet to below the diaphragms following the administration of 80 mL Omnipaque 350 intravenous contrast. No contrast reaction reported Sagittal, coronal, and MIP oblique sagittal reformatted images were obtained on the CT workstation, uploaded to PACS, and reviewed. This CT examination was performed using dose optimization techniques as appropriate, variously including the following: *Automated exposure control *Adjustment of mA and/or kV according to patient size (this includes techniques or standardized protocols for targeted exams where dose is matched to indication/reason for exam; i.e. extremities or head) *Use of iterative reconstruction technique Total exam dose-length product 717 mGy-cm FINDINGS: QUALITY OF STUDY/CONTRAST BOLUS: Satisfactory. PULMONARY ARTERIES: No central or segmental pulmonary emboli. THORACIC AORTA: No aneurysm or dissection. LUNG: The lung volumes are low. There is subsegmental atelectasis at the lung bases. PLEURA: No pleural effusion or pneumothorax. MEDIASTINUM: The heart is enlarged. No pericardial effusion. No hilar or mediastinal lymphadenopathy. No evidence of septal bowing or right heart strain. CHEST WALL/AXILLA: No axillary or internal mammary lymphadenopathy. OSSEOUS STRUCTURES: No acute or suspicious osseous abnormality. There are degenerative changes of the spine. UPPER ABDOMEN: There are postsurgical changes to the stomach. There may be a small esophageal hernia.. The liver is low in attenuation. The gallbladder is been removed. No reflux of contrast into the hepatic veins to suggest elevated right heart pressures. CT/CT angio chest PE protocol IMPRESSION: No evidence of pulmonary embolism. Low lung volumes and bibasilar subsegmental atelectasis. Enlarged heart. VTE: negative
--- NOTE | ~2020-12-15 | XR_ITS ---
EXAMINATION: XR CHEST CLINICAL INFORMATION: Chest pain COMPARISON: Chest radiograph and chest CT 10/24/2020 TECHNIQUE: Frontal view of the chest was obtained. FINDINGS: Lungs are hypoinflated. No other Significant abnormality is noted involving the heart, lungs, mediastinum, bony thorax or soft tissues. XR/XR chest 1V IMPRESSION: No acute intrathoracic disease
--- NOTE | ~2020-12-15 | US_ITS ---
EXAMINATION: US VENOUS ULTRASOUND WITH DOPPLER LOWER EXTREMITY, RIGHT CLINICAL INFORMATION: Right lower extremity erythema, swelling. Assess for occult DVT. COMPARISON: Bilateral leg venous ultrasound 09/20/2015 TECHNIQUE: Ultrasound of the deep veins is performed from the hip to the calf with compression sonography and color and pulse Doppler assessment. Spectral analysis with color-flow imaging is performed. FINDINGS: There is normal venous compression and respiratory variation and augmented flow. The visualized common femoral vein, superficial femoral vein, profunda femoral vein, popliteal vein, and the trifurcation region shows no evidence of deep venous thrombosis. Assessment of the calf veins is limited due to the edema/habitus. Visualized calf veins show no thrombus. No visible popliteal fossa cyst. US/US venous duplex LE RT IMPRESSION: 1. No DVT demonstrated in the right lower extremity. 2. Technical limitations in region of the calf. Visualized calf veins are unremarkable. If the patient's symptoms persist, followup ultrasound in 5 days 7 days might be of value to exclude proximal propagation from a non-visualized calf vein.
[2020-12-15] MEDS: Metoprolol Tartrate 5 MG/5 ML VIAL IVPUSH ×2 (05:40→06:16)
--- NOTE | 2020-12-15 05:47 | ED_ITS ---
HPI - Chest Pain General Chief Complaint: Chest Pain Stated Complaint: CHEST PAIN X'S 2 HOURS Time Seen by Provider: 12/15/20 05:30 Source: patient Mode of arrival: EMS History of Present Illness HPI narrative: 60-year-old male with history of alcohol dependency, atrial fibrillation who is brought in by EMS for complaints midsternal chest pain for approximately 6 hours. Patient states that he woke from sleep with chest pain, tried calling 911 but was not able to get through. Patient endorses that he has been drinking alcohol with his last drink last night and states that he developed abdominal pain with nausea/vomiting/diarrhea approximately 2 hours ago. As per EMS patient was noted to be on atrial fibrillation in 140s and endorses that he is anticoagulated with Eliquis. Patient is noted to be on 2 L nasal cannula for findings of 80% oxygenation on room air. Related Data Previous Rx's Medication Instructions Recorded apixaban 5 mg tablet (Eliquis) 5 mg PO BID 90 Days #180 tab 05/25/20 aripiprazole 5 mg tablet (Abilify) 5 mg PO DAILY 90 Days #90 tab 05/25/20 atorvastatin 40 mg tablet 40 mg PO BEDTIME 90 Days #90 tab 05/25/20 venlafaxine 150 mg 150 mg PO DAILY 90 Days #90 cap 05/25/20 capsule,extended release 24 hr (Effexor XR) zolpidem 10 mg tablet (Ambien) 10 mg PO BEDTIME PRN 30 Days #30 05/25/20 tab diltiazem HCl 240 mg 240 mg PO DAILY #30 cap 11/23/20 capsule,extended release 24 hr (Cardizem CD) metoprolol tartrate 100 mg tablet 100 mg PO TID 30 Days #90 tab 11/23/20 Allergies Allergy/AdvReac Type Severity Reaction Status Date / Time No Known Allergies Allergy Verified 12/15/20 05:52 Review of Systems Review of Systems: Pertinent positives and negatives as stated in HPI 10 point review of systems is otherwise negative. [facility] Past Medical History Source: nursing notes reviewed Medical History Anemia Chronic atrial fibrillation Depression Dyslipidemia History of alcohol abuse Insomnia Morbid obesity Obesity Pulmonary embolism Thoracic aortic aneurysm Toenail deformity Surgical History History of inguinal hernia repair Hx of gastric bypass S/P cholecystectomy Family History Family History Mother No problems noted. Father No problems noted. Family/Other Substance use disorder Social History Social History Housing: House Alcohol intake: current Alcohol intake frequency: 0-2 drinks per day Patient Tobacco Use Status: Never used Tobacco e-Cigarette/Vaping Use: Never Used Second Hand Smoke Exposure: No Advance Directives: No Advance Directives Information Provided: Yes service: No Current occupational status: retired Physical Exam Vital Signs: Vital Signs: Last Vital Signs Temp 97.9 F 12/15/20 06:17 Pulse 116 H 12/15/20 06:53 Resp 17 12/15/20 06:53 BP 114/75 12/15/20 06:53 Pulse Ox 97 12/15/20 06:53 Oxygen Flow Rate 2 12/15/20 05:24 Body Mass Index 47.9 VITAL SIGNS: Reviewed. GENERAL: Morbidly obese, chronically ill, in no acute distress. HEAD: Normocephalic/atraumatic EYES: PERRLA, EOMI OROPHARYNX: no oral lesions noted, posterior pharynx clear, dry mucous LUNGS: Decreased in both bases, No adventitious sounds or accessory muscle use. SpO2<98> CARDIOVASCULAR: Regular rate and rhythm without noted murmurs, no JVD but right greater than left edema with 2 to 3+ pitting on the right ABDOMEN: Morbidly obese, Soft, non-tender, non-distended with bowel sounds. MUSCULOSKELETAL: No tenderness, deformities, or effusions noted on gross inspe ction, abrasions noted to the posterior aspect of a lower extremity EXTREMITIES: No cyanosis, clubbing. SKIN: Inspection of the skin reveals no rashes NEUROLOGIC: Alert and oriented x 4. Strength and sensation to light touch were grossly intact x 4. Course Course Course Narrative: 60-year-old male history of alcohol dependency and abuse presenting with likely alcohol related symptoms. Patient was treated twice with 5mg of IV Lopressor and gradual reduction in heart rate. Otherwise BAL-272 and D-dimer noted to be slightly elevated and taken in conjunction with right lower extremity swelling and patient's requirement of nasal cannula will pursue CT angio with PE protocol. Signed out to Dr Choi: f/u CTA and rpt Trop MDM - Chest Pain Lab Data Result diagrams: 12/15/20 05:44 12/15/20 05:44 Labs: Lab Results 12/15/20 12/15/20 12/15/20 Range/Units 05:32 05:44 05:44 WBC 5.1 (4.8-10.8) X10*3/uL RBC 4.15 L (4.60-5.80) X10*6/uL Hgb 11.6 L (14.0-18.0) g/dl Hct 37.8 L (42-52) % MCV 91.1 (80-98) fL MCH 28.0 (27.0-33.0) pg MCHC 30.7 L (31.0-36.0) g/dl RDW 19.8 H (11.0-16.0) % Plt Count 188 (160-400) X10*3/uL MPV 9.6 (9.4-12.4) fL Immature Gran % (Auto) 0.6 H (0.0-0.4) % Neut % (Auto) 64.7 (45-73) % Lymph % (Auto) 20.9 (20-40) % [place] % (Auto) 10.4 (2-11) % Eos % (Auto) 2.4 (0-4) % Baso % (Auto) 1.0 (0-2) % Lymph # (Auto) 1.1 L (1.2-4.9) X10*3/uL [place] # (Auto) 0.5 (0.1-1.2) X10*3/uL Eos # (Auto) 0.1 (0.0-0.4) X10*3/uL Baso # (Auto) 0.1 (0.0-0.2) X10*3/uL Abs Immat Gran (auto) 0.03 (0.00-0.03) X10*3/uL Absolute Neuts (auto) 3.3 (2.0-8.3) X10*3/uL Absolute Nucleated RBC 0.000 (0.0-0.012) X10*3/uL Nucleated RBC % (auto) 0.0 (0.0-0.2) /100WBC PT (9.9-13.0) SEC INR (0.9-1.1) D-Dimer NG/ML Sodium 145 (135-145) mmol/L Potassium 4.0 (3.3-5.1) mmol/L Chloride 110 H (96-108) mmol/L Carbon Dioxide 21 L (22-29) mmol/L Anion Gap 18 (12-20) BUN 13 (9-16) mg/dL Creatinine 1.10 (0.5-1.4) mg/dL Estim Creat Clear Calc 115.3 Estimated GFR > 60 Random Glucose 95 (60-115) mg/dL Lactic Acid (0.5-2.0) mmol/L Calcium 8.5 (8.4-10.2) mg/dL Total Bilirubin 0.4 (0.0-1.0) mg/dL AST 56 H (5-37) U/L ALT 30 (0-40) U/L Alkaline Phosphatase 84 (39-117) U/L Troponin I High Sens (<3.5-35.0) ng/L B-Natriuretic Peptide Total Protein 6.9 (6.5-8.0) g/dL Albumin 4.0 (3.5-5.0) g/dL Ethyl Alcohol mg/dL COVID-19 (NOLAN) Negative (Negative) COVID-19 Clin Com See Note 12/15/20 12/15/20 12/15/20 Range/Units 05:44 05:44 05:44 WBC (4.8-10.8) X10*3/uL RBC (4.60-5.80) X10*6/uL Hgb (14.0-18.0) g/dl Hct (42-52) % MCV (80-98) fL MCH (27.0-33.0) pg MCHC (31.0-36.0) g/dl RDW (11.0-16.0) % Plt Count (160-400) X10*3/uL MPV (9.4-12.4) fL Immature Gran % (Auto) (0.0-0.4) % Neut % (Auto) (45-73) % Lymph % (Auto) (20-40) % [place] % (Auto) (2-11) % Eos % (Auto) (0-4) % Baso % (Auto) (0-2) % Lymph # (Auto) (1.2-4.9) X10*3/uL [place] # (Auto) (0.1-1.2) X10*3/uL Eos # (Auto) (0.0-0.4) X10*3/uL Baso # (Auto) (0.0-0.2) X10*3/uL Abs Immat Gran (auto) (0.00-0.03) X10*3/uL Absolute Neuts (auto) (2.0-8.3) X10*3/uL Absolute Nucleated RBC (0.0-0.012) X10*3/uL Nucleated RBC % (auto) (0.0-0.2) /100WBC PT 11.9 (9.9-13.0) SEC INR 1.0 (0.9-1.1) D-Dimer 394 NG/ML Sodium (135-145) mmol/L Potassium (3.3-5.1) mmol/L Chloride (96-108) mmol/L Carbon Dioxide (22-29) mmol/L Anion Gap (12-20) BUN (9-16) mg/dL Creatinine (0.5-1.4) mg/dL Estim Creat Clear Calc Estimated GFR Random Glucose (60-115) mg/dL Lactic Acid 2.2 H* (0.5-2.0) mmol/L Calcium (8.4-10.2) mg/dL Total Bilirubin (0.0-1.0) mg/dL AST (5-37) U/L ALT (0-40) U/L Alkaline Phosphatase (39-117) U/L Troponin I High Sens (<3.5-35.0) ng/L B-Natriuretic Peptide Cancelled Total Protein (6.5-8.0) g/dL Albumin (3.5-5.0) g/dL Ethyl Alcohol mg/dL COVID-19 (NOLAN) (Negative) COVID-19 Clin Com 12/15/20 12/15/20 Range/Units 05:44 05:45 WBC (4.8-10.8) X10*3/uL RBC (4.60-5.80) X10*6/uL Hgb (14.0-18.0) g/dl Hct (42-52) % MCV (80-98) fL MCH (27.0-33.0) pg MCHC (31.0-36.0) g/dl RDW (11.0-16.0) % Plt Count (160-400) X10*3/uL MPV (9.4-12.4) fL Immature Gran % (Auto) (0.0-0.4) % Neut % (Auto) (45-73) % Lymph % (Auto) (20-40) % [place] % (Auto) (2-11) % Eos % (Auto) (0-4) % Baso % (Auto) (0-2) % Lymph # (Auto) (1.2-4.9) X10*3/uL [place] # (Auto) (0.1-1.2) X10*3/uL Eos # (Auto) (0.0-0.4) X10*3/uL Baso # (Auto) (0.0-0.2) X10*3/uL Abs Immat Gran (auto) (0.00-0.03) X10*3/uL Absolute Neuts (auto) (2.0-8.3) X10*3/uL Absolute Nucleated RBC (0.0-0.012) X10*3/uL Nucleated RBC % (auto) (0.0-0.2) /100WBC PT (9.9-13.0) SEC INR (0.9-1.1) D-Dimer NG/ML Sodium (135-145) mmol/L Potassium (3.3-5.1) mmol/L Chloride (96-108) mmol/L Carbon Dioxide (22-29) mmol/L Anion Gap (12-20) BUN (9-16) mg/dL Creatinine (0.5-1.4) mg/dL Estim Creat Clear Calc Estimated GFR Random Glucose (60-115) mg/dL Lactic Acid (0.5-2.0) mmol/L Calcium (8.4-10.2) mg/dL Total Bilirubin (0.0-1.0) mg/dL AST (5-37) U/L ALT (0-40) U/L Alkaline Phosphatase (39-117) U/L Troponin I High Sens 35.0 (<3.5-35.0) ng/L B-Natriuretic Peptide 42 Total Protein (6.5-8.0) g/dL Albumin (3.5-5.0) g/dL Ethyl Alcohol 272 mg/dL COVID-19 (NOLAN) (Negative) COVID-19 Clin Com ECG Data ECG #1: Attestation: I personally reviewed and interpreted this ECG as follows: Prior ECG tracings: available for review (10/24/2020 no acute changes on comparison other than currently in atrial fibrillation with RVR) Interpretation: Atrial fibrillation with RVR, HR -147, RBBB Discharge Plan Discharge Clinical Impression: Alcohol intoxication, Alcohol dependence, Atrial fibrillation with RVR Prescriptions: No Action diltiazem HCl [Cardizem CD] 240 mg capsule,extended release 24hr 240 mg PO DAILY Qty: 30 RF: 5 metoprolol tartrate 100 mg tablet 100 mg PO TID 30 Days Qty: 90 RF: 5 Eliquis 5 mg tablet 5 mg PO BID 90 Days Qty: 180 RF: 3 aripiprazole [Abilify] 5 mg tablet 5 mg PO DAILY 90 Days Qty: 90 RF: 1 atorvastatin 40 mg tablet 40 mg PO BEDTIME 90 Days Qty: 90 RF: 3 venlafaxine [Effexor XR] 150 mg capsule,extended release 24hr 150 mg PO DAILY 90 Days Qty: 90 RF: 3 zolpidem [Ambien] 10 mg tablet 10 mg PO BEDTIME PRN (Reason: insomnia) 30 Days Qty: 30 RF: 0
[2020-12-15 05:55] LABS: COVID-19 Test Negative (Negative)
[2020-12-15 05:55] LABS: MANUAL DIFF FLAG NO
[2020-12-15 05:57] LABS: Basophils Absolute Auto 0.1 X10*3/uL (0.0-0.2); Eosinophils Absolute Auto 0.1 X10*3/uL (0.0-0.4); Eosinophils Percent Auto 2.4 % (0-4); Hematocrit 37.8 % (42-52); Hemoglobin 11.6 g/dl (14.0-18.0); Imm Gran Abs Auto 0.03 X10*3/uL (0.00-0.03); Imm Gran Pct Auto 0.6 % (0.0-0.4); Lymphocytes Absolute Auto 1.1 X10*3/uL (1.2-4.9); Lymphocytes Percent Auto 20.9 % (20-40); Mean Corpuscular HGB Conc 30.7 g/dl (31.0-36.0); Mean Corpuscular Volume 91.1 fL (80-98); Mean Platelet Volume 9.6 fL (9.4-12.4); Monocytes Absolute Auto 0.5 X10*3/uL (0.1-1.2); Monocytes Percent Auto 10.4 % (2-11); Neutrophils Absolute Auto 3.3 X10*3/uL (2.0-8.3); Neutrophils Percent Auto 64.7 % (45-73); Platelet Count 188 X10*3/uL (160-400); Red Blood Count 4.15 X10*6/uL (4.60-5.80); Red Cell Distribution Width 19.8 % (11.0-16.0); White Blood Count 5.1 X10*3/uL (4.8-10.8)
[2020-12-15 06:04] LABS: Prothrombin Time 11.9 SEC (9.9-13.0)
[2020-12-15 06:11] LABS: Ethanol 272 mg/dL; Lactic Acid 2.2 mmol/L (0.5-2.0)
[2020-12-15 06:13] LABS: Alanine Aminotransferase 30 U/L (0-40); Alkaline Phosphatase 84 U/L (39-117); Anion Gap 18 (12-20); Aspartate Amino Transferase 56 U/L (5-37); Bilirubin Total 0.4 mg/dL (0.0-1.0); Blood Urea Nitrogen 13 mg/dL (9-16); Calcium 8.5 mg/dL (8.4-10.2); Carbon Dioxide 21 mmol/L (22-29); Chloride 110 mmol/L (96-108); Creatinine Clr Calc Pharmacy 115.3; Estimated Glomerular Filt Rate > 60; Glucose Random 95 mg/dL (60-115); Sodium 145 mmol/L (135-145); Total Protein 6.9 g/dL (6.5-8.0)
[2020-12-15 06:20] LABS: B Type Natriuretic Peptide 42 pg/mL (<100)
[2020-12-15 07:02] LABS: D Dimer 394 NG/ML
--- NOTE | 2020-12-15 07:51 | PC.NURSE ---
Pt sleeping at this rn arrival. wakes to voice. reports CP radiating to left arm. rapid afib in 110-120 range on monitor. no pitting edema,, redness, warmth BLE R>L. no palpable pulse but extremities are warm. awaits U/S Pt denies withdrawal sx at this time. no tremor noted. LS dim throughout.
[2020-12-15 07:52] LABS: Reflex Lactate? Lactic Acid Added
[2020-12-15] MEDS: iohexoL 350 MG/ML 100 ML INFUS..BTL 65 ML IV (08:44)
[2020-12-15 09:12] LABS: ~Lactic Acid-LAB USE ONLY 1.5 mmol/L (0.5-2.0)
[2020-12-15 09:21] LABS: Troponin-I High Sensitivity 33.4 ng/L (<3.5-35.0)
--- NOTE | 2020-12-15 10:05 | PC.NURSE ---
sao2 dropped to low/mid 80's when sleeping. quickly improves when awake. 95/rokm air when awake
--- NOTE | 2020-12-15 11:12 | PC.NURSE ---
Pt was able to stand and ambulate to bed 13 without incident, SOB, or dizziness. HR up to 135. At rest in bed HR is upper 120's even after recovering.
[2020-12-15] MEDS: Metoprolol Tartrate 5 MG in 0.9 % Sodium Chloride 50 ML 230 MG IV (11:46)
--- NOTE | 2020-12-15 11:57 | PHA.MEDREC ---
Pharmacy Consult ? Medication Reconciliation Pharmacy has completed the medication reconciliation. There are no remarkable issues. Patient seem to be out of it, I called [facility] to verify that all his medications he reported were filled and picked up. Kerry Farris, NoraD
[2020-12-15 12:05] LABS: Magnesium 2.3 mg/dL (1.6-2.6)
[2020-12-15 13:36] LABS: Prothrombin Time 11.8 SEC (9.9-13.0)
[2020-12-15 13:39] LABS: Partial Thromboplastin Time 29.6 SEC (24.1-38.0)
[2020-12-15] MEDS: PHENobarbitaL sodium 130 MG/ML VIAL 329 MG IM (14:37)
[2020-12-15] MEDS: Metoprolol Tartrate 100 MG TABLET PO ×2 (14:45→21:07)
[2020-12-15] MEDS: dilTIAZem HCL CD 240 MG CAP.ER.DEG PO (14:55)
--- NOTE | 2020-12-15 15:04 | PC.NURSE ---
pharmacy called to switch schedule of phenobarbital d/t late admin
--- NOTE | 2020-12-15 15:13 | PM.IMHP ---
History of Present Illness Date of Service: 12/15/20 Chief Complaint: Palpitation, difficulty breathing A 60 years old male with PMH of alcohol abuse, atrial fibrillation, obesity among others who presented to the hospital with a complaint of chest tightness and palpitations. The patient reported that he woke up from sleep feeding chest tightness and difficulty breathing and he called EMS who brought home to the hospital with reported nausea, vomiting as he was drinking alcohol the night before and started having nausea and vomiting 2 hours prior to this chest pain. Noted to have atrial fibrillation with rapid ventricular response in the emergency treated with IV metoprolol with fair response. He was noted to have a drop in his oxygen to 80% on 2 L of oxygen. In the emergency CT scan, ultrasound were negative for PE or DVT. Oxygen level improved but continued to feel shortness of breath as his heart rate was around 150 responded to IV metoprolol. Review of Systems Review of Systems: No fever, chills or weakness No chest pain, palpitation Shortness of breath and dyspnea on exertion No abdominal pain, nausea or vomiting No urinary symptoms No any rash or wounds [facility] Medical History Anemia Chronic atrial fibrillation Depression Dyslipidemia History of alcohol abuse Insomnia Morbid obesity Obesity Pulmonary embolism Thoracic aortic aneurysm Toenail deformity Family History Mother No problems noted. Father No problems noted. Family/Other Substance use disorder Surgical History History of inguinal hernia repair Hx of gastric bypass S/P cholecystectomy Social History Housing: House Alcohol intake: current Alcohol intake frequency: 3 or more drinks per day Patient Tobacco Use Status: Never used Tobacco e-Cigarette/Vaping Use: Never Used Second Hand Smoke Exposure: No Advance Directives: No Advance Directives Information Provided: Yes service: No Current occupational status: retired Meds Allergies Allergy/AdvReac Type Severity Reaction Status Date / Time No Known Allergies Allergy Verified 12/15/20 05:52 Active Medications: Current Medications Generic Name Dose Route Start Last Admin Trade Name Freq PRN Reason Stop Dose Admin Acetaminophen 650 mg 12/15/20 12:40 Acetaminophen 325 Mg Tablet PO Q6H PRN Pain, Mild (Pain Scale 1-3) Aripiprazole 5 mg 12/16/20 09:00 Aripiprazole 5 Mg Tablet PO DAILY [facility] Atorvastatin Calcium 40 mg 12/15/20 21:00 Atorvastatin Calcium 40 Mg Tablet PO BEDTIME [facility] Diltiazem HCl 240 mg 12/15/20 12:40 12/15/20 14:55 Diltiazem Hcl Cd 240 Mg Cap.Er.Deg PO 240 mg DAILY [facility] Administration Protocol Enoxaparin Sodium 120 mg 12/15/20 17:00 Enoxaparin Sodium 120 Mg/0.8 Ml Syringe SUBCUT Q12H [facility] Medication 1 each 12/15/20 12:00 No Benzodiazepines MISCELLANE DAILY [facility] Metoprolol Tartrate 100 mg 12/15/20 15:00 12/15/20 14:45 Metoprolol Tartrate 100 Mg Tablet PO 100 mg TID [facility] Administration Protocol Ondansetron HCl 4 mg 12/15/20 12:40 Ondansetron Hcl 4 Mg/2 Ml Vial IVPUSH Q8H PRN Nausea and Vomiting Pharmacy Consult 1 each 12/15/20 11:29 Consult Rx Perform Med Rec MISCELLANE ONCE PRN Consult order Phenobarbital 60 mg 12/16/20 09:00 Phenobarbital 30 Mg Tablet PO 12/17/20 21:01 BID [facility] Protocol Phenobarbital 30 mg 12/18/20 09:00 Phenobarbital 30 Mg Tablet PO 12/19/20 21:01 BID [facility] Protocol Phenobarbital 30 mg 12/20/20 09:00 Phenobarbital 30 Mg Tablet PO 12/21/20 09:01 DAILY [facility] Protocol Phenobarbital Sodium 246 mg 12/15/20 15:15 Phenobarbital Sodium 130 Mg/Ml Vial IM 12/15/20 18:16 Q3H [facility] Protocol Sodium Chloride 3 ml 12/15/20 16:00 0.9 % Sodium Chloride Flush 3 [facility] HCl 150 mg 12/16/20 09:00 Venlafaxine Hcl Er 150 Mg Cap.Er.24h PO DAILY [facility] Venlafaxine HCl 75 mg 12/16/20 09:00 Venlafaxine Hcl Er 75 Mg Cap.Er.24h PO DAILY [facility] Zolpidem Tartrate 10 mg 12/15/20 21:00 Zolpidem Tartrate 5 Mg Tablet PO BEDTIME [facility] Home Medications Medication Instructions Recorded Confirmed Last Taken Type venlafaxine 75 mg capsule,extended 75 mg PO DAILY 12/15/20 12/15/20 Unknown History release 24 hr zolpidem 10 mg tablet (Ambien) 10 mg PO BEDTIME 12/15/20 12/15/20 Unknown History Physical Exam Vital Signs and Narrative: Vital Signs: Last Vital Signs Temp 97.6 F 12/15/20 10:47 Pulse 111 H 12/15/20 14:45 Resp 18 12/15/20 11:51 BP 124/84 12/15/20 14:55 Pulse Ox 93 12/15/20 11:51 Oxygen Flow Rate 2 12/15/20 05:24 Body Mass Index 47.9 Const: Other: Constitutional : Alert with stimulation, oriented about self but not place not in distress, morbidly obese Neck : Normal inspection, Supple Cardiovascular : RRR, S1 S2, no lower extremity edema Respiratory : Decreased bilateral air entry, no crackles, wheezes or rhonchi Gastrointestinal: soft, lax, Normal bowel sounds, Non tender Skin : Warm, Dry Neurological : Alert & oriented about self, No focal deficit Results Labs CBC and Chem 7: 12/15/20 05:44 12/15/20 05:44 Labs: Laboratory Results - last 24 hr 12/15/20 12/15/20 12/15/20 05:32 05:44 05:44 MCV 91.1 MCH 28.0 MCHC 30.7 L RDW 19.8 H Plt Count 188 MPV 9.6 Immature Gran % (Auto) 0.6 H Neut % (Auto) 64.7 Lymph % (Auto) 20.9 [place] % (Auto) 10.4 Eos % (Auto) 2.4 Baso % (Auto) 1.0 Lymph # (Auto) 1.1 L [place] # (Auto) 0.5 Eos # (Auto) 0.1 Baso # (Auto) 0.1 Abs Immat Gran (auto) 0.03 Absolute Neuts (auto) 3.3 Absolute Nucleated RBC 0.000 Nucleated RBC % (auto) 0.0 PT INR APTT D-Dimer Anion Gap 18 Estim Creat Clear Calc 115.3 Estimated GFR > 60 Random Glucose 95 Lactic Acid Lactic Acid Fup @ 2Hr Calcium 8.5 Magnesium 2.3 Total Bilirubin 0.4 AST 56 H ALT 30 Alkaline Phosphatase 84 Troponin I High Sens B-Natriuretic Peptide Total Protein 6.9 Albumin 4.0 Ethyl Alcohol COVID-19 (NOLAN) Negative [employer] See Note 12/15/20 12/15/20 12/15/20 05:44 05:44 05:44 MCV MCH MCHC RDW Plt Count MPV Immature Gran % (Auto) Neut % (Auto) Lymph % (Auto) [place] % (Auto) Eos % (Auto) Baso % (Auto) Lymph # (Auto) [place] # (Auto) Eos # (Auto) Baso # (Auto) Abs Immat Gran (auto) Absolute Neuts (auto) Absolute Nucleated RBC Nucleated RBC % (auto) PT 11.9 INR 1.0 APTT D-Dimer 394 Anion Gap Estim Creat Clear Calc Estimated GFR Random Glucose Lactic Acid 2.2 H* Lactic Acid Fup @ 2Hr Calcium Magnesium Total Bilirubin AST ALT Alkaline Phosphatase Troponin I High Sens B-Natriuretic Peptide Cancelled Total Protein Albumin Ethyl Alcohol COVID-19 (NOLAN) [place] 12/15/20 12/15/20 12/15/20 05:44 05:45 08:54 MCV MCH MCHC RDW Plt Count MPV Immature Gran % (Auto) Neut % (Auto) Lymph % (Auto) [place] % (Auto) Eos % (Auto) Baso % (Auto) Lymph # (Auto) [place] # (Auto) Eos # (Auto) Baso # (Auto) Abs Immat Gran (auto) Absolute Neuts (auto) Absolute Nucleated RBC Nucleated RBC % (auto) PT INR APTT D-Dimer Anion Gap Estim Creat Clear Calc Estimated GFR Random Glucose Lactic Acid Lactic Acid Fup @ 2Hr Calcium Magnesium Total Bilirubin AST ALT Alkaline Phosphatase Troponin I High Sens 35.0 33.4 B-Natriuretic Peptide 42 Total Protein Albumin Ethyl Alcohol 272 COVID-19 (NOLAN) [facility]-[employer] 12/15/20 12/15/20 08:54 13:23 MCV MCH MCHC RDW Plt Count MPV Immature Gran % (Auto) Neut % (Auto) Lymph % (Auto) [place] % (Auto) Eos % (Auto) Baso % (Auto) Lymph # (Auto) [place] # (Auto) Eos # (Auto) Baso # (Auto) Abs Immat Gran (auto) Absolute Neuts (auto) Absolute Nucleated RBC Nucleated RBC % (auto) PT 11.8 INR 1.0 APTT 29.6 D-Dimer Anion Gap Estim Creat Clear Calc Estimated GFR Random Glucose Lactic Acid Lactic Acid Fup @ 2Hr 1.5 Calcium Magnesium Total Bilirubin AST ALT Alkaline Phosphatase Troponin I High Sens B-Natriuretic Peptide Total Protein Albumin Ethyl Alcohol COVID-19 (NOLAN) COVID-19 Clin Com Imaging Radiologist's Impressions: Impressions Chest X-Ray 12/15/20 05:30 IMPRESSION: No acute intrathoracic disease Venous Duplex 12/15/20 06:25 IMPRESSION: 1. No DVT demonstrated in the right lower extremity. 2. Technical limitations in region of the calf. Visualized calf veins are unremarkable. If the patient's symptoms persist, followup ultrasound in 5 days 7 days might be of value to exclude proximal propagation from a non-visualized calf vein. Chest CTA 12/15/20 07:18 IMPRESSION: No evidence of pulmonary embolism. Low lung volumes and bibasilar subsegmental atelectasis. Enlarged heart. VTE: negative Assessment and Plan (1) Atrial fibrillation with RVR: Status: Acute (2) Alcohol withdrawal: Status: Acute (3) Alcohol dependence: Status: Acute A 60 years old male with PMH of alcohol abuse, atrial fibrillation, obesity among others who presented to the hospital with a complaint of chest tightness and palpitations. Atrial fibrillation with RVR Heart rate 110 to 130s Received metoprolol IV Start home medication of p.o. metoprolol and Cardizem Change Eliquis to Lovenox for anticoagulation Given telemetry Alcohol withdrawal Start patient on phenobarbital protocol Start thiamine and folic acid To get care team involved HLD Atorvastatin Depression Venlafaxine DVT PPX Lovenox Quality Stroke Does the patient have a stroke diagnosis?: No VTE Prior VTE?: No VTE Risk Level:: Medical - moderate - high VTE Device Contraindication: Treatment Not Indicated VTE Drug Contraindication: N/A - Med Ordered
[2020-12-15] MEDS: Thiamine HCL 100 MG TABLET PO (16:29)
[2020-12-15] MEDS: Folic Acid 1 MG TABLET PO (16:29)
[2020-12-15] MEDS: PHENobarbitaL sodium 130 MG/ML VIAL 246 MG IM ×2 (17:44→21:06)
[2020-12-15] MEDS: 0.9 % Sodium Chloride Flush 3 ML SYRINGE IVFLUSH ×2 (17:44→21:19)
[2020-12-15] MEDS: Enoxaparin Sodium 120 MG/0.8 ML SYRINGE SUBCUT (18:06)
[2020-12-15] MEDS: Zolpidem Tartrate 5 MG TABLET 10 MG PO (21:07)
[2020-12-15] MEDS: Atorvastatin Calcium 40 MG TABLET PO (21:07)
[2020-12-15] MEDS: Acetaminophen 325 MG TABLET 650 MG PO (21:07)
[2020-12-15 22:55] LABS: Troponin-I High Sensitivity 24.9 ng/L (<3.5-35.0)
[2020-12-15] MEDS: Morphine Sulfate 2 MG/ML CARTRIDGE IVPUSH (23:11)
[2020-12-16] VITALS (10 sets, daily range): BP systolic 104–136; BP diastolic 72–98; PULSE 80–98; RESP 18–20; TEMP 36.1–36.9; O2SAT 93–96
[2020-12-16] MEDS: oxyCODONE HCl Immed Release 5 MG TABLET PO (02:57)
[2020-12-16] MEDS: Enoxaparin Sodium 120 MG/0.8 ML SYRINGE SUBCUT ×2 (05:53→17:24)
[2020-12-16 07:07] LABS: Hematocrit 36.6 % (42-52); Hemoglobin 11.2 g/dl (14.0-18.0); Mean Corpuscular HGB Conc 30.6 g/dl (31.0-36.0); Mean Corpuscular Hemoglobin 28.1 pg (27.0-33.0); Platelet Count 158 X10*3/uL (160-400); Red Blood Count 3.98 X10*6/uL (4.60-5.80); Red Cell Distribution Width 19.4 % (11.0-16.0); White Blood Count 5.8 X10*3/uL (4.8-10.8)
[2020-12-16 07:36] LABS: Anion Gap 14 (12-20); Blood Urea Nitrogen 15 mg/dL (9-16); Carbon Dioxide 25 mmol/L (22-29); Chloride 105 mmol/L (96-108); Creatinine Clr Calc Pharmacy 121.9; Estimated Glomerular Filt Rate > 60; Glucose Random 84 mg/dL (60-115); Potassium 3.7 mmol/L (3.3-5.1); Sodium 140 mmol/L (135-145)
[2020-12-16 07:57] LABS: Thyroid Stimulating Hormone 4.21 uIU/mL (0.32-4.0)
[2020-12-16] MEDS: Venlafaxine HCl ER 75 MG CAP.ER.24H PO (10:19)
[2020-12-16] MEDS: Venlafaxine HCl ER 150 MG CAP.ER.24H PO (10:19)
[2020-12-16] MEDS: Metoprolol Tartrate 100 MG TABLET PO ×3 (10:19→20:08)
[2020-12-16] MEDS: ARIPiprazole 5 MG TABLET PO (10:19)
[2020-12-16] MEDS: Folic Acid 1 MG TABLET PO (10:20)
[2020-12-16] MEDS: PHENobarbitaL 30 MG TABLET 60 MG PO ×2 (10:20→20:08)
[2020-12-16] MEDS: dilTIAZem HCL CD 240 MG CAP.ER.DEG PO (10:20)
[2020-12-16] MEDS: 0.9 % Sodium Chloride Flush 3 ML SYRINGE IVFLUSH ×3 (10:20→20:08)
[2020-12-16] MEDS: Thiamine HCL 100 MG TABLET PO (10:20)
--- NOTE | 2020-12-16 11:11 | P.CDIC_ITS ---
CDI Concurrent Query Documentation Clarification: PHYSICIAN'S DOCUMENTATION REQUEST Date of Query: 12/16/20 1113 Patient Name: Bennie Potts JR Admit Date: 12/15/20 Dear Doctor, A review of the medical record indicates additional documentation may be needed. Please review below and update the documentation accordingly. Clinical Indicators: Risk Factors/Clinical Indicators/Treatments HR 150 history Chronic Atrial Fibrillation On Elaquis Per ED Impression: Atrial Fibrillation rapid ventricular response If possible, please provide further specificity regarding atrial fibrillation, such as: * Paroxysmal atrial fibrillation: terminates spontaneously or with intervention within 7 days of onset. * Persistent atrial fibrillation: episodes of continuous AF that last more than 7 days and do not self-terminate. * Long lasting persistent atrial fibrillation: episodes of continuous AF that last more than 12 months, * Chronic or Permanent atrial fibrillation: when a decision has been made to accept the presence of AF and there is no further attempt to restore or maintain sinus rhythm. * Other (please specify) * Unable to determine Use of terms such as suspected, likely, concern for, or probable (associated with a specific diagnosis that is being evaluated, monitored, or treated as if it exists) are acceptable and can be coded in the inpatient setting, when documented at the time of discharge. Thank you, Latisha Harris RN Extension: [phone] Please use your independent medical judgment in providing your response. THIS QUERY IS PART OF THE PERMANENT MEDICAL RECORD Provider Response: Other Other Diagnosis: Chronic atrial fibrillation with acute rapid ventricular response
--- NOTE | 2020-12-16 11:41 | MHC.CM.PN ---
Addendum entered by Valencia Schaeffer 12/16/20 13:13: CM MET WITH PT WHO REPORTS HE LIVES NEARBY AND IS FULLY INDEPENDENT WITH ALL CARE AND MOBILITY. PT DENIES USING ANY DME. PT REPORTS BEING ACTIVE WITH [facility]. PT REPORTS HE HAS A HCP COMPLETED NAMING HIS BROTHER HIS AGENT. PTS PCP IS MATTHEW MARTINES. P-T WILL NEED THE SHUTTLE VS [facility]. CM DID DISCUSS THE CONCERNS PRESENTED BY THE A TO PT WHO WAS MINIMALLY ENGAGED. PT DID ACKNOWLEDGE HE RELAPSED ON ALCOHOL AND STATED HE WOULD BE WILLING TO CONSIDER TREATMENT WHEN HE MEETS WITH THE CARE TEAM. Addendum entered by Valencia Schaeffer 12/16/20 11:54: CM DID ATTEMPT TO SEE PT EARLIER TODAY. PT SLEEPING. CM TO RETURN Original Note: JACKIE RECEIVED A CALL FROM AMADOU ([phone]) AT [facility]. SHE REPORTS THE NURSE WHO WAS SEEING THE PT AT HOME REPORTED CONCERNS TO HER SO SHE CONTACTED THE PTS MOTHER WITH WHOM HE LIVES. AMADOU REPORTS THE PTS MOTHER TOLD HER THE PT HAD RECENTLY RELAPSED AND WAS DRINKING DAILY. SHE REPORTS, WHILE INTOXICATED, THE PT WAS YELLING AT THE MOTHER AND MAKING HER FEEL UNSAFE . AMADOU REPORTS THE PTS MOTHER SAYS UNLESS THE PT GOES TO SOME TYPE OF TREATMENT FOR THE ALCOHOL USE, HE CANNOT RETURN TO HER HOME. JACKIE AGREED TO DISCUSS THIS WITH THE PT HOWEVER ENCOURAGED AMADOU TO HAVE PTS MOTHER CONTACT HIM DIRECTLY TO INFORM HIM HE CANNOT RETURN. CM WILL ALSO INFORM PT OF CONCERNS AND ENCOURAGE HE ENTER TREATMENT AND FURTHER DISCUSS THESE CONCERNS WITH HIS MOTHER. AMADOU ALSO INDICATED SHE WOULD BE FILING AN ELDER AT RISK. PT WILL ALSO BE SEEN BY CARE TEAM
[2020-12-16] MEDS: ondansetron HCL 4 MG/2 ML VIAL IVPUSH (13:40)
--- NOTE | 2020-12-16 16:02 | P.PNIM_ITS ---
Subjective Subjective Date of Service: 12/16/20 Interval History: The patient was seen and evaluated this morning Laying in bed, feels little bit better today with decreased chest tightness Denies any fever, chills or chest pain No reported other overnight events. Review of Systems No fever, chills or weakness No chest pain, palpitation Shortness of breath and dyspnea on exertion No abdominal pain, nausea or vomiting No urinary symptoms No any rash or wounds Physical Exam Vital Signs: Vital Signs: Last Vital Signs Temp 97.0 F 12/16/20 15:20 Pulse 83 12/16/20 15:20 Resp 18 12/16/20 15:20 BP 104/72 12/16/20 15:20 Pulse Ox 94 12/16/20 15:20 Oxygen Flow Rate 2 12/15/20 05:24 Body Mass Index 47.9 Const: Other: Constitutional : Alert with stimulation, oriented about self and place, not in distress, morbidly obese Neck : Normal inspection, Supple Cardiovascular : RRR, S1 S2, no lower extremity edema Respiratory : Decreased bilateral air entry, no crackles, wheezes or rhonchi Gastrointestinal: soft, lax, Normal bowel sounds, Non tender Skin : Warm, Dry Neurological : Alert & oriented about self, No focal deficit Objective Data Active Medications Acetaminophen (Acetaminophen 325 Mg Tablet) 650 mg PO Q6H PRN PRN Reason: Pain, Mild (Pain Scale 1-3) Last Admin: 12/15/20 21:07 Dose: 650 mg Documented by: ZULY Aripiprazole (Aripiprazole 5 Mg Tablet) 5 mg PO DAILY [facility] Last Admin: 12/16/20 10:19 Dose: 5 mg Documented by: NADIA Atorvastatin Calcium (Atorvastatin Calcium 40 Mg Tablet) 40 mg PO BEDTIME [facility] Last Admin: 12/15/20 21:07 Dose: 40 mg Documented by: ZULY Diltiazem HCl (Diltiazem Hcl Cd 240 Mg Cap.Er.Deg) 240 mg PO DAILY [facility]; Protocol Last Admin: 12/16/20 10:20 Dose: 240 mg Documented by: NADIA Enoxaparin Sodium (Enoxaparin Sodium 120 Mg/0.8 Ml Syringe) 120 mg SUBCUT Q12H [facility] Last Admin: 12/16/20 05:53 Dose: 120 mg Documented by: ZULY Folic Acid (Folic Acid 1 Mg Tablet) 1 mg PO DAILY [facility] Last Admin: 12/16/20 10:20 Dose: 1 mg Documented by: NADIA Medication (No Benzodiazepines) 1 each MISCELLANE DAILY [facility] Metoprolol Tartrate (Metoprolol Tartrate 100 Mg Tablet) 100 mg PO TID [facility]; Protocol Last Admin: 12/16/20 10:19 Dose: 100 mg Documented by: NADIA Ondansetron HCl (Ondansetron Hcl 4 Mg/2 Ml Vial) 4 mg IVPUSH Q8H PRN PRN Reason: Nausea and Vomiting Last Admin: 12/16/20 13:40 Dose: 4 mg Documented by: NADIA Pharmacy Consult (Consult Rx Perform Med Rec) 1 each MISCELLANE ONCE PRN PRN Reason: Consult order Phenobarbital (Phenobarbital 30 Mg Tablet) 60 mg PO BID [facility]; Protocol Stop: 12/17/20 21:01 Last Admin: 12/16/20 10:20 Dose: 60 mg Documented by: NADIA Phenobarbital (Phenobarbital 30 Mg Tablet) 30 mg PO BID [facility]; Protocol Stop: 12/19/20 21:01 Phenobarbital (Phenobarbital 30 Mg Tablet) 30 mg PO DAILY [facility]; Protocol Stop: 12/21/20 09:01 Sodium Chloride (0.9 % Sodium Chloride Flush 3 Ml Syringe) 3 ml IV[facility] Last Admin: 12/16/20 10:20 Dose: 3 ml Documented by: NADIA Thiamine HCl (Thiamine Hcl 100 Mg Tablet) 100 mg PO DAILY [facility] Last Admin: 12/16/20 10:20 Dose: 100 mg Documented by: NADIA Venlafaxine HCl (Venlafaxine Hcl Er 150 Mg Cap.Er.24h) 150 mg PO DAILY [facility] Last Admin: 12/16/20 10:19 Dose: 150 mg Documented by: NADIA Venlafaxine HCl (Venlafaxine Hcl Er 75 Mg Cap.Er.24h) 75 mg PO DAILY [facility] Last Admin: 12/16/20 10:19 Dose: 75 mg Documented by: NADIA Zolpidem Tartrate (Zolpidem Tartrate 5 Mg Tablet) 10 mg PO BEDTIME [facility] Last Admin: 12/15/20 21:07 Dose: 10 mg Documented by: ZULY Labs CBC & Chem 7: 12/16/20 06:05 12/16/20 06:05 Labs: Laboratory Results - last 24 hr 12/15/20 12/16/20 12/16/20 22:30 06:05 06:05 MCV 92.0 MCH 28.1 MCHC 30.6 L RDW 19.4 H Plt Count 158 L MPV 10.0 Absolute Nucleated RBC 0.000 Nucleated RBC % (auto) 0.0 Anion Gap 14 Estim Creat Clear Calc 121.9 Estimated GFR > 60 Random Glucose 84 Calcium 8.0 L Magnesium 2.0 Troponin I High Sens 24.9 TSH 4.21 H Microbiology Microbiology Results: Microbiology 12/15/20 05:48 Blood Culture - Preliminary Blood - Venous No growth after 24 hours. 12/15/20 05:48 Blood Culture - Preliminary Blood - Venous No growth after 24 hours. Assessment and Plan (1) Alcohol withdrawal: Status: Acute (2) Atrial fibrillation with RVR: Status: Acute (3) Alcohol dependence: Status: Acute Assessment and Plan: A 60 years old male with PMH of alcohol abuse, atrial fibrillation, obesity among others who presented to the hospital with a complaint of chest tightness and palpitations. Atrial fibrillation with RVR Heart rate better controlled today in 80s Continue home medication of p.o. metoprolol and Cardizem Change Eliquis to Lovenox for anticoagulation while on phenobarbital Given telemetry Alcohol withdrawal Less symptomatic continue phenobarbital protocol Continue thiamine and folic acid care team evaluation HLD Atorvastatin Depression Venlafaxine DVT PPX Lovenox Quality Stroke Does the patient have a stroke diagnosis?: No VTE Prior VTE?: No VTE Risk Level:: Medical - moderate - high VTE Device Contraindication: Treatment Not Indicated VTE Drug Contraindication: N/A - Med Ordered
[2020-12-16] MEDS: Atorvastatin Calcium 40 MG TABLET PO (20:08)
[2020-12-16] MEDS: Zolpidem Tartrate 5 MG TABLET 10 MG PO (20:08)
[2020-12-17] VITALS (9 sets, daily range): BP systolic 118–136; BP diastolic 79–86; PULSE 72–90; RESP 16–20; TEMP 36.1–36.6; O2SAT 94–96
[2020-12-17] MEDS: Enoxaparin Sodium 120 MG/0.8 ML SYRINGE SUBCUT ×2 (04:13→16:44)
[2020-12-17] MEDS: Acetaminophen 325 MG TABLET 650 MG PO (04:13)
[2020-12-17 07:46] LABS: Hematocrit 36.1 % (42-52); Mean Corpuscular HGB Conc 30.5 g/dl (31.0-36.0); Mean Corpuscular Hemoglobin 27.9 pg (27.0-33.0); Mean Corpuscular Volume 91.6 fL (80-98); Mean Platelet Volume 10.3 fL (9.4-12.4); Platelet Count 140 X10*3/uL (160-400); Red Blood Count 3.94 X10*6/uL (4.60-5.80); Red Cell Distribution Width 19.2 % (11.0-16.0); White Blood Count 4.3 X10*3/uL (4.8-10.8)
[2020-12-17 08:04] LABS: Anion Gap 12 (12-20); Blood Urea Nitrogen 16 mg/dL (9-16); Calcium 8.2 mg/dL (8.4-10.2); Carbon Dioxide 26 mmol/L (22-29); Chloride 106 mmol/L (96-108); Creatinine Clr Calc Pharmacy 136.3; Estimated Glomerular Filt Rate > 60; Glucose Random 80 mg/dL (60-115); Potassium 3.6 mmol/L (3.3-5.1); Sodium 140 mmol/L (135-145)
[2020-12-17] MEDS: Venlafaxine HCl ER 150 MG CAP.ER.24H PO (08:20)
[2020-12-17] MEDS: dilTIAZem HCL CD 240 MG CAP.ER.DEG PO (08:20)
[2020-12-17] MEDS: Venlafaxine HCl ER 75 MG CAP.ER.24H PO (08:20)
[2020-12-17] MEDS: ARIPiprazole 5 MG TABLET PO (08:21)
[2020-12-17] MEDS: Metoprolol Tartrate 100 MG TABLET PO ×3 (08:21→20:13)
[2020-12-17] MEDS: Omeprazole 40 MG CAPSULE.DR PO (08:21)
[2020-12-17] MEDS: Magnesium Hydrox/Alum Hydrox 30 ML ORAL.SUSP PO (08:21)
[2020-12-17] MEDS: Thiamine HCL 100 MG TABLET PO (08:21)
[2020-12-17] MEDS: PHENobarbitaL 30 MG TABLET 60 MG PO ×2 (08:21→20:13)
[2020-12-17] MEDS: Folic Acid 1 MG TABLET PO (08:21)
[2020-12-17] MEDS: 0.9 % Sodium Chloride Flush 3 ML SYRINGE IVFLUSH ×3 (08:22→20:13)
[2020-12-17] MEDS: Cyclobenzaprine HCl 5 MG TABLET PO (11:40)
[2020-12-17] MEDS: oxyCODONE HCl Immed Release 5 MG TABLET PO (11:41)
--- NOTE | 2020-12-17 13:39 | HO.PM.IMPN ---
Subjective Subjective Date of Service: 12/17/20 Interval History: The patient was seen and evaluated this morning Laying in bed, comfortable overall Feels better today but continue to have episodes of chest tightness No reported other overnight events. Review of Systems No fever, chills or weakness No chest pain, palpitation Shortness of breath and dyspnea on exertion No abdominal pain, nausea or vomiting No urinary symptoms No any rash or wounds Physical Exam Vital Signs: Vital Signs: Last Vital Signs Temp 97.0 F 12/17/20 12:00 Pulse 86 12/17/20 12:00 Resp 20 12/17/20 12:00 BP 136/86 12/17/20 12:00 Pulse Ox 94 12/17/20 12:00 Oxygen Flow Rate 2 12/15/20 05:24 Body Mass Index 47.9 Const: Other: Constitutional : Alert with stimulation, oriented about self and place, not in distress, morbidly obese Neck : Normal inspection, Supple Cardiovascular : RRR, S1 S2, no lower extremity edema Respiratory : Decreased bilateral air entry, no crackles, wheezes or rhonchi Gastrointestinal: soft, lax, Normal bowel sounds, Non tender Skin : Warm, Dry Neurological : Alert & oriented about self, No focal deficit Objective Data Active Medications Acetaminophen (Acetaminophen 325 Mg Tablet) 650 mg PO Q6H PRN PRN Reason: Pain, Mild (Pain Scale 1-3) Last Admin: 12/17/20 04:13 Dose: 650 mg Documented by: MELI Aripiprazole (Aripiprazole 5 Mg Tablet) 5 mg PO DAILY [facility] Last Admin: 12/17/20 08:21 Dose: 5 mg Documented by: NADIA Atorvastatin Calcium (Atorvastatin Calcium 40 Mg Tablet) 40 mg PO BEDTIME [facility] Last Admin: 12/16/20 20:08 Dose: 40 mg Documented by: MELI Diltiazem HCl (Diltiazem Hcl Cd 240 Mg Cap.Er.Deg) 240 mg PO DAILY [facility]; Protocol Last Admin: 12/17/20 08:20 Dose: 240 mg Documented by: NADIA Enoxaparin Sodium (Enoxaparin Sodium 120 Mg/0.8 Ml Syringe) 120 mg SUBCUT Q12H [facility] Last Admin: 12/17/20 04:13 Dose: 120 mg Documented by: MELI Folic Acid (Folic Acid 1 Mg Tablet) 1 mg PO DAILY [facility] Last Admin: 12/17/20 08:21 Dose: 1 mg Documented by: NADIA Medication (No Benzodiazepines) 1 each MISCELLANE DAILY [facility] Metoprolol Tartrate (Metoprolol Tartrate 100 Mg Tablet) 100 mg PO TID [facility]; Protocol Last Admin: 12/17/20 08:21 Dose: 100 mg Documented by: NADIA Omeprazole (Omeprazole 40 Mg Capsule.Dr) 40 mg PO DAILY@0630 [facility] Last Admin: 12/17/20 08:21 Dose: 40 mg Documented by: NADIA Ondansetron HCl (Ondansetron Hcl 4 Mg/2 Ml Vial) 4 mg IVPUSH Q8H PRN PRN Reason: Nausea and Vomiting Last Admin: 12/16/20 13:40 Dose: 4 mg Documented by: NADIA Pharmacy Consult (Consult Rx Perform Med Rec) 1 each MISCELLANE ONCE PRN PRN Reason: Consult order Phenobarbital (Phenobarbital 30 Mg Tablet) 60 mg PO BID [facility]; Protocol Stop: 12/17/20 21:01 Last Admin: 12/17/20 08:21 Dose: 60 mg Documented by: NAIDA Phenobarbital (Phenobarbital 30 Mg Tablet) 30 mg PO BID [facility]; Protocol Stop: 12/19/20 21:01 Phenobarbital (Phenobarbital 30 Mg Tablet) 30 mg PO DAILY [facility]; Protocol Stop: 12/21/20 09:01 Sodium Chloride (0.9 % Sodium Chloride Flush 3 Ml Syringe) [facility] Last Admin: 12/17/20 08:22 Dose: 3 ml Documented by: NADIA Thiamine HCl (Thiamine Hcl 100 Mg Tablet) 100 mg PO DAILY [facility] Last Admin: 12/17/20 08:21 Dose: 100 mg Documented by: NADIA Venlafaxine HCl (Venlafaxine Hcl Er 150 Mg Cap.Er.24h) 150 mg PO DAILY [facility] Last Admin: 12/17/20 08:20 Dose: 150 mg Documented by: NADIA Venlafaxine HCl (Venlafaxine Hcl Er 75 Mg Cap.Er.24h) 75 mg PO DAILY [facility] Last Admin: 12/17/20 08:20 Dose: 75 mg Documented by: NADIA Zolpidem Tartrate (Zolpidem Tartrate 5 Mg Tablet) 10 mg PO BEDTIME [facility] Last Admin: 12/16/20 20:08 Dose: 10 mg Documented by: MELI Labs CBC & Chem 7: 12/17/20 06:37 12/17/20 06:37 Labs: Laboratory Results - last 24 hr 12/17/20 12/17/20 06:37 06:37 MCV 91.6 MCH 27.9 MCHC 30.5 L RDW 19.2 H Plt Count 140 L MPV 10.3 Absolute Nucleated RBC 0.000 Nucleated RBC % (auto) 0.0 Anion Gap 12 Estim Creat Clear Calc 136.3 Estimated GFR > 60 Random Glucose 80 Calcium 8.2 L Microbiology Microbiology Results: Microbiology 12/15/20 05:48 Blood Culture - Preliminary Blood - Venous No growth after 48 hours. 12/15/20 05:48 Blood Culture - Preliminary Blood - Venous No growth after 48 hours. Assessment and Plan (1) Alcohol withdrawal: Status: Acute (2) Alcohol dependence: Status: Acute (3) Atrial fibrillation with RVR: Status: Acute Assessment and Plan: A 60 years old male with PMH of alcohol abuse, atrial fibrillation, obesity among others who presented to the hospital with a complaint of chest tightness and palpitations. Atrial fibrillation with RVR Heart rate better controlled today Continue home medication of p.o. metoprolol and Cardizem Change Eliquis to Lovenox for anticoagulation while on phenobarbital Given telemetry Alcohol withdrawal Less symptomatic continue phenobarbital protocol Continue thiamine and folic acid care team evaluation Chest discomfort Likely musculoskeletal in origin with negative EKG for any acute changes and troponin Use pain medication as needed HLD Atorvastatin Depression Venlafaxine DVT PPX Lovenox Quality Stroke Does the patient have a stroke diagnosis?: No VTE Prior VTE?: No VTE Risk Level:: Medical - moderate - high VTE Device Contraindication: Treatment Not Indicated VTE Drug Contraindication: N/A - Med Ordered
[2020-12-17] MEDS: Atorvastatin Calcium 40 MG TABLET PO (20:13)
[2020-12-17] MEDS: Zolpidem Tartrate 5 MG TABLET 10 MG PO (20:13)
[2020-12-18] VITALS: BP 107/58; PULSE 85; RESP 18; TEMP 36.5; O2SAT 94
[2020-12-18 04:00] VITALS: BP 118/82; PULSE 79; RESP 18; TEMP 36.8; O2SAT 96
[2020-12-18] MEDS: Acetaminophen 325 MG TABLET 650 MG PO (04:29)
[2020-12-18] MEDS: Enoxaparin Sodium 120 MG/0.8 ML SYRINGE SUBCUT (04:29)
[2020-12-18] MEDS: Omeprazole 40 MG CAPSULE.DR PO (04:29)
[2020-12-18 07:38] VITALS: BP 116/73; PULSE 77; RESP 20; TEMP 36.5; O2SAT 93
[2020-12-18] MEDS: ARIPiprazole 5 MG TABLET PO (08:55)
[2020-12-18] MEDS: Venlafaxine HCl ER 75 MG CAP.ER.24H PO (08:55)
[2020-12-18] MEDS: Folic Acid 1 MG TABLET PO (08:55)
[2020-12-18] MEDS: dilTIAZem HCL CD 240 MG CAP.ER.DEG PO (08:55)
[2020-12-18] MEDS: Thiamine HCL 100 MG TABLET PO (08:55)
[2020-12-18] MEDS: Metoprolol Tartrate 100 MG TABLET PO (08:55)
[2020-12-18] MEDS: Venlafaxine HCl ER 150 MG CAP.ER.24H PO (08:55)
[2020-12-18] MEDS: PHENobarbitaL 30 MG TABLET PO (08:56)
[2020-12-18] MEDS: 0.9 % Sodium Chloride Flush 3 ML SYRINGE IVFLUSH (08:57)
[2020-12-18 10:52] VITALS: BP 125/87; PULSE 77; RESP 20; TEMP 36.1; O2SAT 97
--- NOTE | 2020-12-18 10:58 | PM.DS ---
DS: Providers Provider Date of Service: 12/18/20 Date of admission: 12/15/20 12:41 Primary care physician: Unknown Physician DS: Diagnosis Discharge Diagnosis (1) Alcohol withdrawal: Status: Acute (2) Alcohol dependence: Status: Acute (3) Atrial fibrillation with RVR: Status: Acute DS: Summary Hospital Course Hospital Course: Admission note HPI A 60 years old male with PMH of alcohol abuse, atrial fibrillation, obesity among others who presented to the hospital with a complaint of chest tightness and palpitations.? The patient reported that he woke up from sleep feeding chest tightness and difficulty breathing and he called EMS who brought home to the hospital with reported nausea, vomiting as he was drinking alcohol the night before and started having nausea and vomiting 2 hours prior to this chest pain. Noted to have atrial fibrillation with rapid ventricular response in the emergency treated with IV metoprolol with fair response.? He was noted to have a drop in his oxygen to 80% on 2 L of oxygen. In the emergency CT scan, ultrasound were negative for PE or DVT.? Oxygen level improved but continued to feel shortness of breath as his heart rate was around 150 responded to IV metoprolol. Hospital course The patient was admitted for atrial fibrillation with rapid resistant regular response as a result of alcohol withdrawal. Treated with IV doses of metoprolol and addition of his home medications with some of movement in the heart rate as he was treated with phenobarbital protocol for withdrawal with good response over the course hospital stay as withdrawal symptoms resolved and he was able to ambulate and tolerate diet well. His heart rhythm remained irregular but rate controlled in 70s. To be discharged home on folic acid and thiamine. Time Spent with Patient Time attestation: Total time spent providing and/or coordinating discharge services: Discharge coordination time: Greater than 30 minutes Quality: Stroke Does the patient have a stroke diagnosis?: No Physical Exam Vital Signs: Vital Signs: Last Vital Signs Temp 97.0 F 12/18/20 10:52 Pulse 77 12/18/20 10:52 Resp 20 12/18/20 10:52 BP 125/87 12/18/20 10:52 Pulse Ox 97 12/18/20 10:52 Oxygen Flow Rate 2 12/15/20 05:24 Body Mass Index 47.9 Const: Other: Constitutional : Alert with stimulation, oriented about self and place, not in distress, morbidly obese Neck : Normal inspection, Supple Cardiovascular : RRR, S1 S2, no lower extremity edema Respiratory : Decreased bilateral air entry, no crackles, wheezes or rhonchi Gastrointestinal: soft, lax, Normal bowel sounds, Non tender Skin : Warm, Dry Neurological : Alert & oriented about self, No focal deficit DS: Data Data Completed and Pending Labs on day of discharge: Preliminary micro results at discharge 12/15/20 05:48 Blood Culture - Preliminary Blood - Venous No growth after 48 hours. 12/15/20 05:48 Blood Culture - Preliminary Blood - Venous No growth after 48 hours. Discharge Plan Discharge Patient Disposition: Home, Self-Care Discharge Diagnosis: Alcohol withdrawal Atrial fibrillation with rapid ventricular response Referrals: Physician,Unknown [Primary Care Provider] - 1 Week Discharge Medications: New folic acid 1 mg Tablet 1 mg PO DAILY 210 Days Qty: 30 RF: 0 thiamine mononitrate (vit B1) 100 mg Tablet 100 mg PO DAILY Qty: 30 RF: 0 oxycodone 5 mg tablet 2.5 mg PO Q8H PRN (Reason: pain (scale score 7-10)) Qty: 7 RF: 0 Continued diltiazem HCl [Cardizem CD] 240 mg capsule,extended release 24hr 240 mg PO DAILY Qty: 30 RF: 5 metoprolol tartrate 100 mg tablet 100 mg PO TID 30 Days Qty: 90 RF: 5 venlafaxine 75 mg Capsule,Extended Release 24hr 75 mg PO DAILY RF: 0 zolpidem [Ambien] 10 mg tablet 10 mg PO BEDTIME RF: 0 Eliquis 5 mg tablet 5 mg PO BID 90 Days Qty: 180 RF: 3 aripiprazole [Abilify] 5 mg tablet 5 mg PO DAILY 90 Days Qty: 90 RF: 1 atorvastatin 40 mg tablet 40 mg PO BEDTIME 90 Days Qty: 90 RF: 3 venlafaxine [Effexor XR] 150 mg capsule,extended release 24hr 150 mg PO DAILY 90 Days Qty: 90 RF: 3 Discharge Orders: Discharge Order (Routine); Ordered 12/18/20 Ordered By: Wanda Saucedo Diet: advance to usual diet Activity on Discharge: As tolerated Stand Alone Forms: Patient Portal Discharge page Care Plan Goals: Read below Health Concerns: Read below Plan of Treatment: You were admitted to the hospital with rapid irregular heart rhythm and alcohol withdrawal treated with IV medications, phenobarbital and vitamins with good response over the course of hospital stay. Assessment: Advise you complete abstinence from alcohol To use folic acid and thiamine daily Oxycodone can be used for pain control as needed
--- NOTE | 2020-12-18 12:18 | MHC.CM.PN ---
MD order: home, self care; per CM sticky note, cab needed. Cab voucher formulated and printed. Upon arroval to patient's room, he already left. Voucher put in shredder bin.
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
== END 2020-12-18 12:18 | disposition home or self-care (01) | DRG 309 ==
LOC: HO.ED 11:45 → HO.EDOVER 13:09 → HO.IMC 15:58
PROVIDERS: Internal Medicine; Student in an Organized Health Care Education/Training Program; Admitting Provider Student in an Organized Health Care Education/Training Program; Emergency Provider Emergency Medicine; Visit Provider Student in an Organized Health Care Education/Training Program
DX: I48.20 Chronic atrial fibrillation, unspecified (principal); F10.239 Alcohol dependence with withdrawal, unspecified; F10.229 Alcohol dependence with intoxication, unspecified; F32.9 Major depressive disorder, single episode, unspecified; E78.5 Hyperlipidemia, unspecified; Z20.822 Contact with and (suspected) exposure to COVID-19; Z79.01 Long term (current) use of anticoagulants; Z79.899 Other long term (current) drug therapy
CPT/HCPCS: 36415; 71045; 71275; 80048; 80053; 82077; 83605; 83735; 83880; 84443; 84484; 85025; 85027; 85379; 85610; 85730; 87040; 87635; 93005; 93971; 96374; 96375; 96376; 99285; J1650; J2270; J2405; J2560; Q9967

== ENCOUNTER 2021-02-08 01:13 | Inpatient (IN) | payer MEDICARE, MEDICAID, SELFPAY ==
[2021-02-08] VITALS (32 sets, daily range): BP systolic 102–194; BP diastolic 33–116; PULSE 81–160; RESP 16–24; TEMP 35.8–37.6; O2SAT 89–100; BMI 46.2
--- NOTE | ~2021-02-08 | CT_ITS ---
EXAMINATION: CT CHEST WITH CONTRAST CT ABDOMEN AND PELVIS WITH CONTRAST CLINICAL INFORMATION: Pain. Tachycardia. COMPARISON: CT chest dated 12/15/2020 and abdomen pelvis dated 04/19/2015.. TECHNIQUE: Multidetector volumetric imaging was performed from the thoracic inlet through the pubic symphysis following administration of intravenous contrast material. A total of 100 mL Omnipaque 350 was administered intravenously. Sagittal and coronal images were reformatted. This CT examination was performed using dose optimization techniques as appropriate, variously including the following: *Automated exposure control *Adjustment of mA and/or kV according to patient size (this includes techniques or standardized protocols for targeted exams where dose is matched to indication/reason for exam; i.e. extremities or head) *Use of iterative reconstruction technique DOSE: 2635 mGy-cm FINDINGS: -CHEST- LUNG: Minimal dependent atelectasis in the posterior aspect of the right lower lobe. The lungs are otherwise clear without focal opacity or nodule. The supraspinatus tendon limited by respiratory motion. MEDIASTINUM: Global cardiomegaly. Calcific atherosclerosis in the thoracic aorta. No aneurysmal dilatation. The pulmonary vascular structures are unremarkable. No hilar or mediastinal lymphadenopathy. There is circumferential wall thickening at the distal esophagus with a small hiatal hernia. PERICARDIUM/PLEURA: No significant effusion. No pleural mass or thickening. CHEST WALL/AXILLA: Unremarkable. -ABDOMEN/PELVIS- LIVER, GALLBLADDER, BILIARY TREE: Relative hypoattenuation of the hepatic parenchyma is consistent with steatosis. Liver measures 23 cm craniocaudally, consistent with hepatomegaly. Hepatic contour is normal. Gallbladder is surgically absent. No focal hepatic lesions are identified. No biliary ductal dilatation. PANCREAS: Normal; no mass or surrounding fluid. SPLEEN: Normal size. No focal lesion. ADRENAL GLANDS: Normal; no mass. KIDNEYS AND URETERS: The kidneys are normal in size, shape, and attenuation. No hydronephrosis, hydroureter, or calculi seen. No perinephric stranding. BLADDER: Moderately distended. No wall thickening, surrounding fat stranding, or calcifications. GASTROINTESTINAL TRACT: Status post Luis Fernando-en-Y gastric bypass. There is mild generalized small bowel distention throughout the abdomen without a discrete transition point. There are 2 tandem Ovalle's type hernias involving the transverse colon in the mid abdomen (image 53/111 of series 11). There is mild surrounding fat stranding in this region, likely due to local irritation. No evidence of strangulation. There is mild colonic diverticulosis. No evidence of acute diverticulitis. Air-fluid levels are evident within the colon, consistent with liquid stool. No hemorrhage. No free fluid or free air. Of note, there is also mild wall thickening in the distal ileum which is of uncertain etiology. There is mild surrounding fat stranding in this region. Appendix is normal. ABDOMINAL WALL: In addition to the 2 bowel containing ventral abdominal hernias noted above, there are additional adjacent fat-containing ventral abdominal hernias in the supraumbilical region. No inguinal hernias. VASCULATURE: Aorta is normal in size. No significant calcific atherosclerotic disease. LYMPH NODES: No lymphadenopathy. PELVIC VISCERA: Unremarkable. OSSEUS STRUCTURES: Diffuse idiopathic skeletal hyperostosis is evident in the thoracic spine large bridging anterior osteophytes. There is mild multilevel degenerative spondylosis. No acute fractures are identified. Ribs appear intact. CT/CT abdomen pelvis w con IMPRESSION: 1..Two tandem Ovalle's type hernias in the ventral abdomen involving the transverse colon. Subtle surrounding inflammatory changes and wall thickening in this region suggest local irritation and possible strangulation. No pneumatosis. Additional fat-containing mental abdominal hernias are noted. 2. Diffuse small bowel distention, most likely corresponding to a reactive ileus related to the aforementioned hernias. Small bowel obstruction is felt to be less likely. 3. Focal wall thickening at the terminal ileum is of uncertain etiology. This may correspond to a second region of inflammation, but is not specific. Query symptoms of terminal ileitis. 4. Small hiatal hernia. Circumferential wall thickening in distal esophagus may be due to reflux esophagitis. 5. Global cardiomegaly. No acute pulmonary findings. 6. Hepatic steatosis. 7. Moderately distended bladder.
--- NOTE | ~2021-02-08 | US_ITS ---
EXAMINATION: US VENOUS ULTRASOUND WITH DOPPLER LOWER EXTREMITY, RIGHT CLINICAL INFORMATION: Edema. Erythema. COMPARISON: 12/15/2020 TECHNIQUE: Ultrasound of the deep veins is performed from the hip to the calf with compression sonography and color and pulse Doppler assessment. Spectral analysis with color-flow imaging is performed. FINDINGS: There is normal venous compression and respiratory variation and augmented flow. The visualized common femoral vein, superficial femoral vein, profunda femoral vein, popliteal vein, and the trifurcation region shows no evidence of deep venous thrombosis. There is no significant popliteal fossa cyst. If the patient's symptoms persist, followup ultrasound in 5 days 7 days might be of value to exclude proximal propagation from a non-visualized calf vein. US/US venous duplex LE RT IMPRESSION: No DVT demonstrated in the right lower extremity.
--- NOTE | ~2021-02-08 | XR_ITS ---
EXAMINATION: XR chest 1V CLINICAL INFORMATION: Reason for Exam new CVP line COMPARISON: Prior chest x-ray 02/08/2021 TECHNIQUE: XR chest 1V Tubes and lines: Right IJ central line catheter tip projecting over the right atrium. Endotracheal tube tip is about 4 cm above aneesh. Gastric tube passing below the diaphragm into the stomach. Lungs and pleura: Linear density at right lung base probably platelike atelectasis. No radiographic evidence of infiltrates or failure. Heart and mediastinum: The mediastinum is within normal limits.. Bones/soft tissue: Skeletal structures included are normal for patient's age. XR/XR chest 1V IMPRESSION: ET tube, gastric tube and right IJ central line in place properly positioned. Probably platelike atelectasis right lung base.
--- NOTE | ~2021-02-08 | XR_ITS ---
EXAMINATION: XR CHEST CLINICAL INFORMATION: Chest pain COMPARISON: 12/15/2020 TECHNIQUE: Frontal view of the chest was obtained. FINDINGS: Cardiac silhouette is borderline enlarged for technique. Pulmonary vasculature is normal. No pneumothorax or pleural effusion. No pulmonary edema or focal consolidation. Osseous structures are unremarkable. XR/XR chest 1V IMPRESSION: Borderline cardiomegaly. No acute pulmonary findings.
--- NOTE | 2021-02-08 01:16 | ECG_ITS ---
Test Reason : cp Blood Pressure : / mmHG Vent. Rate : 146 BPM Atrial Rate : 000 BPM P-R Int : 000 ms QRS Dur : 144 ms QT Int : 282 ms P-R-T Axes : 000 -22 -26 degrees QTc Int : 439 ms Atrial fibrillation with rapid ventricular response Right bundle branch block T wave abnormality, consider lateral ischemia Abnormal ECG Heart rate has increased T-wave inversion in Anterolateral leads is new Referred By: Doris Snowden Electronically Signed By:JACKELYN BARON MD
--- NOTE | 2021-02-08 01:28 | ED.CHESTPAIN ---
HPI - Chest Pain General Chief Complaint: Chest Pain Stated Complaint: MID SUBSTERNAL CHEST PAIN/UNMEDICATED AFIB Time Seen by Provider: 02/08/21 01:15 Source: patient Mode of arrival: EMS History of Present Illness HPI narrative: 60-year-old male presents via EMS for chest pain that is substernal in nature and has been present since this morning and patient states that it radiates into his left arm, has remained constant, and worsens with deep inspiration but denies any association with movement or change in position. He states he did feel nauseous as well as sweaty and reports his last alcoholic drink was approximately an hour ago and that was also his last episode of vomiting. Patient states he has not been taking his medications for couple of days. Related Data Home Medications Medication Instructions Recorded Confirmed venlafaxine 75 mg capsule,extended 75 mg PO DAILY 12/15/20 12/15/20 release 24 hr zolpidem 10 mg tablet (Ambien) 10 mg PO BEDTIME 12/15/20 12/15/20 Previous Rx's Medication Instructions Recorded apixaban 5 mg tablet (Eliquis) 5 mg PO BID 90 Days #180 tab 05/25/20 aripiprazole 5 mg tablet (Abilify) 5 mg PO DAILY 90 Days #90 tab 05/25/20 atorvastatin 40 mg tablet 40 mg PO BEDTIME 90 Days #90 tab 05/25/20 venlafaxine 150 mg 150 mg PO DAILY 90 Days #90 cap 05/25/20 capsule,extended release 24 hr (Effexor XR) diltiazem HCl 240 mg 240 mg PO DAILY #30 cap 11/23/20 capsule,extended release 24 hr (Cardizem CD) metoprolol tartrate 100 mg tablet 100 mg PO TID 30 Days #90 tab 11/23/20 folic acid 1 mg tablet 1 mg PO DAILY 210 Days #30 tab 12/18/20 oxycodone 5 mg tablet 2.5 mg PO Q8H PRN #7 tab 12/18/20 thiamine mononitrate (vit B1) 100 100 mg PO DAILY #30 tab 12/18/20 mg tablet Allergies Allergy/AdvReac Type Severity Reaction Status Date / Time No Known Allergies Allergy Verified 12/15/20 05:52 Review of Systems Review of Systems: Pertinent positives and negatives as stated in HPI 10 point review of symptoms is otherwise negative. PMFSH Past Medical History Source: nursing notes reviewed Medical History Alcohol dependence Alcohol intoxication Anemia Chronic atrial fibrillation Depression Dyslipidemia History of alcohol abuse Insomnia Morbid obesity Obesity Pulmonary embolism Thoracic aortic aneurysm Toenail deformity Surgical History History of inguinal hernia repair Hx of gastric bypass S/P cholecystectomy Family History Family History Mother No problems noted. Father No problems noted. Family/Other Substance use disorder Social History Social History Household Members: Family Household Members Other:: lives with mother Housing: House Alcohol intake: current Alcohol intake frequency: 3 or more drinks per day Alcohol type: beer and wine Patient Tobacco Use Status: Never used Tobacco e-Cigarette/Vaping Use: Never Used Second Hand Smoke Exposure: No Use of substances other than those prescribed or required for medical reasons: No Advance Directives: No Advance Directives Information Provided: No service: No Current occupational status: retired Physical Exam Vital Signs: Vital Signs: Last Vital Signs Temp 98.7 F 02/08/21 07:12 Pulse 118 H 02/08/21 07:12 Resp 18 02/08/21 07:12 BP 121/79 02/08/21 07:12 Pulse Ox 98 02/08/21 07:12 Body Mass Index 46.2 VITAL SIGNS: Reviewed. GENERAL: Morbidly obese, intoxicated, in mild distress. HEAD: Normocephalic/atraumatic EYES: PERRLA, EOMI EARS: Ext canals without abnormality NOSE: Nares patent bilateral OROPHARYNX: no oral lesions noted, posterior pharynx clear LUNGS: Normal breath sounds. No adventitious sounds or accessory muscle use. SpO2<95> CARDIOVASCULAR: Regular rate and rhythm without noted murmurs, no JVD but there is right lower extremity 2 to 3+ pitting edema up to the knee ABDOMEN: Obese, exam is limited by body habitus, Soft, tenderness in epigastrium/left lower quadrant without rebound, non-distended with bowel sounds. MUSCULOSKELETAL: No tenderness, deformities, or effusions noted on gross inspection. EXTREMITIES: No cyanosis, clubbing or edema. SKIN: Inspection of the skin reveals no rashes NEUROLOGIC: Alert and oriented x 4. Course Course Course Narrative: This is a 60-year-old male with history and clinical presentation consistent with atrial fibrillation with RVR likely secondary to poor medication compliance as well as alcohol intoxication. Patient is hemodynamically stable and review of EKG is negative for STEMI consistent with an atypical presentation. Will obtain rate control, treat for pain, and follow remaining investigations.. Review of all investigations consistent with persistent atrial fibrillation with RVR, CT scan read for small-bowel ileus felt to be reactive to questionable Ovalle hernia and surrounding inflammation. Patient was noted to be in urinary retention and Young catheter was placed. He has remained hemodynamically stable, receiving IV fluids/pain medication as well as rate control medication. Reevaluation(s) Reevaluation #1: Consulted surgical services, Dr Blunt, who recommends OR if patient medically cleared. Time: 07:00 Reevaluation #2: I discussed the case with the inpatient hospitalist who accepts admission and discussed surgery recommendations. Time: 07:20 MDM - Chest Pain Lab Data Result diagrams: 02/08/21 01:30 02/08/21 01:30 Labs: Lab Results 02/08/21 02/08/21 02/08/21 Range/Units 01:30 01:30 01:30 WBC 4.7 L (4.8-10.8) X10*3/uL RBC 4.70 (4.60-5.80) X10*6/uL Hgb 13.4 L (14.0-18.0) g/dl Hct 40.9 L (42.0-52.0) % MCV 87.0 (80.0-98.0) fL MCH 28.5 (27.0-33.0) pg MCHC 32.8 (31.0-36.0) g/dl RDW 19.8 H (11.0-16.0) % Plt Count 164 (160-400) X10*3/uL MPV 10.5 (9.4-12.4) fL Immature Gran % (Auto) 0.2 (0.0-0.4) % Neut % (Auto) 72.5 (45-73) % Lymph % (Auto) 5.3 L (20-40) % [place] % (Auto) 21.6 H (2-11) % Eos % (Auto) 0.0 (0-4) % Baso % (Auto) 0.4 (0-2) % Lymph # (Auto) 0.3 L (1.2-4.9) X10*3/uL [place] # (Auto) 1.0 (0.1-1.2) X10*3/uL Eos # (Auto) 0.0 (0.0-0.4) X10*3/uL Baso # (Auto) 0.0 (0.0-0.2) X10*3/uL Abs Immat Gran (auto) 0.01 (0.00-0.03) X10*3/uL Absolute Neuts (auto) 3.39 (2.0-8.3) x10*3/uL Absolute Nucleated RBC 0.000 (0.0-0.012) X10*3/uL Nucleated RBC % (auto) 0.0 (0.0-0.2) /100WBC Smear Tech's Comments VERIFIED PT 12.7 (9.9-13.0) SEC INR 1.1 (0.9-1.1) Sodium 135 (135-145) mmol/L Potassium 3.8 (3.3-5.1) mmol/L Chloride 99 (96-108) mmol/L Carbon Dioxide 17 L (22-29) mmol/L Anion Gap 23 H (12-20) BUN 15 (9-16) mg/dL Creatinine 0.95 (0.5-1.4) mg/dL Estim Creat Clear Calc 123.6 Estimated GFR > 60 Random Glucose 108 (60-115) mg/dL Calcium 8.0 L (8.4-10.2) mg/dL Magnesium 2.3 (1.6-2.6) mg/dL Total Bilirubin 0.5 (0.0-1.0) mg/dL AST 38 H (5-37) U/L ALT 28 (0-40) U/L Alkaline Phosphatase 100 (39-117) U/L Troponin I High Sens (<3.5-35.0) ng/L B-Natriuretic Peptide (<100) pg/mL Total Protein 7.1 (6.5-8.0) g/dL Albumin 3.9 (3.5-5.0) g/dL Lipase 16 (8-78) U/L Urine Color Urine Appearance Urine pH (5.0-8.0) Ur Specific [place] (1.005-1.025) Urine Protein (NEG-TRACE) MG/DL Urine Glucose (UA) (NEG) MG/DL Urine Ketones (NEG) MG/DL Urine Blood (NEG) Urine Nitrite (NEG) Ur Leukocyte Esterase (NEG) Urine RBC (0) /HPF Urine WBC (0-4) /HPF Ur Squamous Epith Cells /LPF Urine Bacteria /LPF Hyaline Casts /LPF Granular Casts /LPF Urine Mucus /LPF Ethyl Alcohol mg/dL COVID-19 (NOLAN) (Negative) COVID-19 Clin Com 02/08/21 02/08/21 02/08/21 Range/Units 01:30 01:30 01:30 WBC (4.8-10.8) X10*3/uL RBC (4.60-5.80) X10*6/uL Hgb (14.0-18.0) g/dl Hct (42.0-52.0) % MCV (80.0-98.0) fL MCH (27.0-33.0) pg MCHC (31.0-36.0) g/dl RDW (11.0-16.0) % Plt Count (160-400) X10*3/uL MPV (9.4-12.4) fL Immature Gran % (Auto) (0.0-0.4) % Neut % (Auto) (45-73) % Lymph % (Auto) (20-40) % [place] % (Auto) (2-11) % Eos % (Auto) (0-4) % Baso % (Auto) (0-2) % Lymph # (Auto) (1.2-4.9) X10*3/uL [place] # (Auto) (0.1-1.2) X10*3/uL Eos # (Auto) (0.0-0.4) X10*3/uL Baso # (Auto) (0.0-0.2) X10*3/uL Abs Immat Gran (auto) (0.00-0.03) X10*3/uL Absolute Neuts (auto) (2.0-8.3) x10*3/uL Absolute Nucleated RBC (0.0-0.012) X10*3/uL Nucleated RBC % (auto) (0.0-0.2) /100WBC Smear Tech's Comments PT (9.9-13.0) SEC INR (0.9-1.1) Sodium (135-145) mmol/L Potassium (3.3-5.1) mmol/L Chloride (96-108) mmol/L Carbon Dioxide (22-29) mmol/L Anion Gap (12-20) BUN (9-16) mg/dL Creatinine (0.5-1.4) mg/dL Estim Creat Clear Calc Estimated GFR Random Glucose (60-115) mg/dL Calcium (8.4-10.2) mg/dL Magnesium (1.6-2.6) mg/dL Total Bilirubin (0.0-1.0) mg/dL AST (5-37) U/L ALT (0-40) U/L Alkaline Phosphatase (39-117) U/L Troponin I High Sens 25.4 (<3.5-35.0) ng/L B-Natriuretic Peptide 54 (<100) pg/mL Total Protein (6.5-8.0) g/dL Albumin (3.5-5.0) g/dL Lipase (8-78) U/L Urine Color Urine Appearance Urine pH (5.0-8.0) Ur Specific [place] (1.005-1.025) Urine Protein (NEG-TRACE) MG/DL Urine Glucose (UA) (NEG) MG/DL Urine Ketones (NEG) MG/DL Urine Blood (NEG) Urine Nitrite (NEG) Ur Leukocyte Esterase (NEG) Urine RBC (0) /HPF Urine WBC (0-4) /HPF Ur Squamous Epith Cells /LPF Urine Bacteria /LPF Hyaline Casts /LPF Granular Casts /LPF Urine Mucus /LPF Ethyl Alcohol 279 mg/dL COVID-19 (NOLAN) Negative (Negative) COVID-19 Clin Com See Note 02/08/21 Range/Units 06:27 WBC (4.8-10.8) X10*3/uL RBC (4.60-5.80) X10*6/uL Hgb (14.0-18.0) g/dl Hct (42.0-52.0) % MCV (80.0-98.0) fL MCH (27.0-33.0) pg MCHC (31.0-36.0) g/dl RDW (11.0-16.0) % Plt Count (160-400) X10*3/uL MPV (9.4-12.4) fL Immature Gran % (Auto) (0.0-0.4) % Neut % (Auto) (45-73) % Lymph % (Auto) (20-40) % [place] % (Auto) (2-11) % Eos % (Auto) (0-4) % Baso % (Auto) (0-2) % Lymph # (Auto) (1.2-4.9) X10*3/uL [place] # (Auto) (0.1-1.2) X10*3/uL Eos # (Auto) (0.0-0.4) X10*3/uL Baso # (Auto) (0.0-0.2) X10*3/uL Abs Immat Gran (auto) (0.00-0.03) X10*3/uL Absolute Neuts (auto) (2.0-8.3) x10*3/uL Absolute Nucleated RBC (0.0-0.012) X10*3/uL Nucleated RBC % (auto) (0.0-0.2) /100WBC Smear Tech's Comments PT (9.9-13.0) SEC INR (0.9-1.1) Sodium (135-145) mmol/L Potassium (3.3-5.1) mmol/L Chloride (96-108) mmol/L Carbon Dioxide (22-29) mmol/L Anion Gap (12-20) BUN (9-16) mg/dL Creatinine (0.5-1.4) mg/dL Estim Creat Clear Calc Estimated GFR Random Glucose (60-115) mg/dL Calcium (8.4-10.2) mg/dL Magnesium (1.6-2.6) mg/dL Total Bilirubin (0.0-1.0) mg/dL AST (5-37) U/L ALT (0-40) U/L Alkaline Phosphatase (39-117) U/L Troponin I High Sens (<3.5-35.0) ng/L B-Natriuretic Peptide (<100) pg/mL Total Protein (6.5-8.0) g/dL Albumin (3.5-5.0) g/dL Lipase (8-78) U/L Urine Color YELLOW Urine Appearance CLEAR Urine pH 6.0 (5.0-8.0) Ur Specific [place] 1.025 (1.005-1.025) Urine Protein 2+ H (NEG-TRACE) MG/DL Urine Glucose (UA) NEG (NEG) MG/DL Urine Ketones 15 (NEG) MG/DL Urine Blood 1+ H (NEG) Urine Nitrite NEG (NEG) Ur Leukocyte Esterase NEG (NEG) Urine RBC 1-4 (0) /HPF Urine WBC 1-4 (0-4) /HPF Ur Squamous Epith Cells 2+ /LPF Urine Bacteria 2+ /LPF Hyaline Casts 1-4 /LPF Granular Casts 1-4 /LPF Urine Mucus 2+ /LPF Ethyl Alcohol mg/dL COVID-19 (NOLAN) (Negative) COVID-19 Clin Com Discharge Plan Discharge Clinical Impression: Atrial fibrillation with RVR, Urinary retention, Alcohol intoxication, Ileus, Incisional hernia Patient Disposition: Admitted As Inpatient
[2021-02-08] MEDS: Metoprolol Tartrate 5 MG/5 ML VIAL IVPUSH ×2 (01:31→02:54)
[2021-02-08 01:40] LABS: Basophils Percent Auto 0.4 % (0-2); Hematocrit 40.9 % (42.0-52.0); Hemoglobin 13.4 g/dl (14.0-18.0); Imm Gran Abs Auto 0.01 X10*3/uL (0.00-0.03); Imm Gran Pct Auto 0.2 % (0.0-0.4); Lymphocytes Absolute Auto 0.3 X10*3/uL (1.2-4.9); Lymphocytes Percent Auto 5.3 % (20-40); MANUAL DIFF FLAG SCAN; Mean Corpuscular HGB Conc 32.8 g/dl (31.0-36.0); Mean Corpuscular Hemoglobin 28.5 pg (27.0-33.0); Mean Platelet Volume 10.5 fL (9.4-12.4); Monocytes Percent Auto 21.6 % (2-11); Neutrophils Absolute Auto 3.39 x10*3/uL (2.0-8.3); Neutrophils Percent Auto 72.5 % (45-73); Platelet Count 164 X10*3/uL (160-400); Red Cell Distribution Width 19.8 % (11.0-16.0); SCAN SMEAR FLAG 1; White Blood Count 4.7 X10*3/uL (4.8-10.8)
[2021-02-08 01:45] LABS: INTERNATIONAL NORM RATIO 1.1 (0.9-1.1); Prothrombin Time 12.7 SEC (9.9-13.0)
[2021-02-08 02:00] LABS: Alanine Aminotransferase 28 U/L (0-40); Albumin Level 3.9 g/dL (3.5-5.0); Alkaline Phosphatase 100 U/L (39-117); Anion Gap 23 (12-20); Aspartate Amino Transferase 38 U/L (5-37); Bilirubin Total 0.5 mg/dL (0.0-1.0); Blood Urea Nitrogen 15 mg/dL (9-16); Carbon Dioxide 17 mmol/L (22-29); Chloride 99 mmol/L (96-108); Creatinine Clr Calc Pharmacy 123.6; Estimated Glomerular Filt Rate > 60; Glucose Random 108 mg/dL (60-115); Lipase 16 U/L (8-78); Magnesium 2.3 mg/dL (1.6-2.6); Potassium 3.8 mmol/L (3.3-5.1); Sodium 135 mmol/L (135-145); Total Protein 7.1 g/dL (6.5-8.0)
[2021-02-08] MEDS: Morphine Sulfate 2 MG/ML CARTRIDGE 1 MG IVPUSH (02:01)
[2021-02-08] MEDS: Pantoprazole Sodium 40 MG/10 ML VIAL IVPUSH ×2 (02:01→17:17)
[2021-02-08 02:04] LABS: B Type Natriuretic Peptide 54 pg/mL (<100); Troponin-I High Sensitivity 25.4 ng/L (<3.5-35.0)
[2021-02-08 02:09] LABS: SLIDE REVIEW VERIFIED
[2021-02-08 02:17] LABS: Ethanol 279 mg/dL
[2021-02-08 02:53] LABS: COVID-19 Test Negative (Negative)
[2021-02-08] MEDS: dilTIAZem HCL 50 MG/10 ML VIAL 10 MG IVPUSH (03:36)
[2021-02-08] MEDS: Morphine Sulfate 2 MG/ML CARTRIDGE IVPUSH (04:11)
[2021-02-08] MEDS: dilTIAZem HCL 125 MG in 0.9 % Sodium Chloride 100 ML IVCONT (04:52)
[2021-02-08] MEDS: iohexoL 350 MG/ML 100 ML INFUS..BTL IV (06:09)
[2021-02-08 06:37] LABS: Appearance Urine CLEAR; Color Urine YELLOW; Glucose Urine UA NEG (NEG); Leukocyte Esterase Urine NEG (NEG); Nitrite Urine NEG (NEG); Specific Gravity - Urine 1.025 (1.005-1.025); UACC Culture Trigger NO; Urine Blood 1+ (NEG); Urine Ketones 15 MG/DL (NEG); Urine Protein 2+ MG/DL (NEG-TRACE)
[2021-02-08 06:51] LABS: Bacteria Urine 2+ /LPF; Mucus Urine 2+ /LPF; Squamous Epithelial Cell Urine 2+ /LPF
[2021-02-08] MEDS: LORazepam 2 MG/ML VIAL 1 MG IVPUSH (07:15)
--- NOTE | 2021-02-08 07:56 | PC.NURSE ---
a/o x 3 no sob/funmi noted, diarrhea x 1. pt aware of plan of care for admission to hosp.
[2021-02-08] MEDS: 0.9 % Sodium Chloride 1,000 ML 999 ML IV (07:58)
[2021-02-08 08:12] LABS: Lactic Acid 2.5 mmol/L (0.5-2.0)
--- NOTE | 2021-02-08 09:00 | PC.NURSE ---
pt is on the commode.
--- NOTE | 2021-02-08 09:25 | PM.CNGS ---
History of Present Illness Consult details Consult date: 02/08/21 Requesting physician: Dorsi Snowden Narrative: 60-year-old male patient presenting to the emergency department intoxicated in atrial fibrillation presenting with chest pain and abdominal pain. He was transported to emergency department by EMS for chest pain and a substernal location with pain radiating down the left arm which is constant in nature. He also reports nausea, vomiting, chills and shakiness. His last alcoholic drink was 1 hour prior to presentation. He apparently has not been taking his cardiac medications and was found to be in rapid AFib. Workup in the emergency department with CT of the abdomen and pelvis reveals strangulated Ovalle's hernia which is associated with his previous abdominal surgery. He reports a previous midline incision for a gastric bypass surgery. Patient was found to have an elevated lactate level but normal WBC. Review of Systems Constitutional: Constitutional: Reports anorexia, Reports chills, Reports fatigue and Reports night sweats Eyes: Eyes: Reports no additional eye complaints ENT: Denies sore throat Cardiovascular: Cardiovascular: Reports chest pain, Reports Epigastric Pain and Reports palpitations Respiratory: Respiratory: Denies cough and Reports pain on inspiration Gastrointestinal: Gastrointestinal: Reports abdominal pain, Reports diarrhea, Reports nausea and Reports vomiting Genitourinary: Genitourinary: Reports no additional male genitourinary complaints Neurologic: Reports system reviewed and no additional complaints, except as documented Psychiatric: Comments: Alcohol intoxication Endocrine: Endocrine: Reports fatigue and Reports palpitations PMFSH Past Medical History Medical History Alcohol dependence Alcohol intoxication Anemia Chronic atrial fibrillation Depression Dyslipidemia History of alcohol abuse Insomnia Morbid obesity Obesity Pulmonary embolism Thoracic aortic aneurysm Toenail deformity Family History Family History Mother No problems noted. Father No problems noted. Family/Other Substance use disorder Surgical History Surgical History History of inguinal hernia repair Hx of gastric bypass S/P cholecystectomy Social History Social History Household Members: Family Household Members Other:: lives with mother Housing: House Alcohol intake: current Alcohol intake frequency: 3 or more drinks per day Alcohol type: beer and wine Patient Tobacco Use Status: Never used Tobacco e-Cigarette/Vaping Use: Never Used Second Hand Smoke Exposure: No Use of substances other than those prescribed or required for medical reasons: No Advance Directives: No Advance Directives Information Provided: No service: No Current occupational status: retired Meds Allergies Allergy/AdvReac Type Severity Reaction Status Date / Time No Known Allergies Allergy Verified 12/15/20 05:52 Active Medications: Current Medications Diltiazem HCl 125 mg/ Sodium (Chloride) 125 mls @ 0 mls/hr IVCONT .Q0M MARILEE; Protocol Last Admin: 02/08/21 04:52 Dose: 5 mg/hr, 5 mls/hr Documented by: Piperacillin Sod/Tazobactam (Sod 3.375 gm/ Sodium Chloride) 50 mls @ 100 mls/hr IV ONCE ONE Stop: 02/08/21 09:50 Home Medications Medication Instructions Recorded Confirmed Last Taken Type venlafaxine 75 mg capsule,extended 75 mg PO DAILY 12/15/20 12/15/20 Unknown History release 24 hr zolpidem 10 mg tablet (Ambien) 10 mg PO BEDTIME 12/15/20 12/15/20 Unknown History Physical Exam Vital Signs: Vital Signs: Last Vital Signs Temp 98.7 F 02/08/21 07:12 Pulse 118 H 02/08/21 07:12 Resp 18 02/08/21 07:12 BP 121/79 02/08/21 07:12 Pulse Ox 98 02/08/21 07:12 Body Mass Index 46.2 Const: General: alert and anxious Nutritional Appearance: obese Orientation/consciousness: patient oriented x3 Limitations: no limitations Eyes: Sclerae: sclerae normal EOM: EOMs intact bilaterally Cardio: Rate: tachycardic Rhythm: abnormal rhythm GI: Inspection: Yes obesity Palpation (GI): Tenderness to palpation present (GI) and Hernia present Percussion: Yes tympanic to percussion Auscultation: abnormal bowel sounds Rectal Exam - Male: Yes deferred Abdomen image: 1. Palpable hernia Skin: General skin exam: no rashes or lesions noted Neuro: General: patient oriented x3 Results Labs Result diagrams: 02/08/21 01:30 02/08/21 01:30 Labs: Abnormal lab results 02/08/21 02/08/21 02/08/21 Range/Units 01:30 01:30 06:27 WBC 4.7 L (4.8-10.8) X10*3/uL Hgb 13.4 L (14.0-18.0) g/dl Hct 40.9 L (42.0-52.0) % RDW 19.8 H (11.0-16.0) % Lymph % (Auto) 5.3 L (20-40) % [place] % (Auto) 21.6 H (2-11) % Lymph # (Auto) 0.3 L (1.2-4.9) X10*3/uL Carbon Dioxide 17 L (22-29) mmol/L Anion Gap 23 H (12-20) Lactic Acid (0.5-2.0) mmol/L Calcium 8.0 L (8.4-10.2) mg/dL AST 38 H (5-37) U/L Urine Protein 2+ H (NEG-TRACE) MG/DL Urine Blood 1+ H (NEG) 02/08/21 Range/Units 07:23 WBC (4.8-10.8) X10*3/uL Hgb (14.0-18.0) g/dl Hct (42.0-52.0) % RDW (11.0-16.0) % Lymph % (Auto) (20-40) % [place] % (Auto) (2-11) % Lymph # (Auto) (1.2-4.9) X10*3/uL Carbon Dioxide (22-29) mmol/L Anion Gap (12-20) Lactic Acid 2.5 H* (0.5-2.0) mmol/L Calcium (8.4-10.2) mg/dL AST (5-37) U/L Urine Protein (NEG-TRACE) MG/DL Urine Blood (NEG) Short CBC 02/08/21 Range/Units 01:30 WBC 4.7 L (4.8-10.8) X10*3/uL Hgb 13.4 L (14.0-18.0) g/dl Hct 40.9 L (42.0-52.0) % Plt Count 164 (160-400) X10*3/uL BMP 02/08/21 01:30 Sodium 135 Potassium 3.8 Chloride 99 Carbon Dioxide 17 L BUN 15 Creatinine 0.95 Calcium 8.0 L Liver Function 02/08/21 Range/Units 01:30 Total Bilirubin 0.5 (0.0-1.0) mg/dL AST 38 H (5-37) U/L ALT 28 (0-40) U/L Alkaline Phosphatase 100 (39-117) U/L Albumin 3.9 (3.5-5.0) g/dL Urine 02/08/21 Range/Units 06:27 Urine Color YELLOW Urine Appearance CLEAR Urine pH 6.0 (5.0-8.0) Ur Specific [place] 1.025 (1.005-1.025) Urine Protein 2+ H (NEG-TRACE) MG/DL Urine Glucose (UA) NEG (NEG) MG/DL All other labs normal. Assessment and Plan (1) Morbid obesity: Status: Acute (2) Alcohol intoxication: Status: Acute (3) Atrial fibrillation with RVR: Status: Acute (4) Incarcerated incisional hernia: Status: Acute 60-year-old male patient with multiple medical problems including AFib with a rapid ventricular response, alcohol intoxication, morbid obesity presenting with an incarcerated incisional/Ovalle's hernia in the upper midline. Patient has an elevated lactate level which may indicate bowel ischemia/necrosis. Patient will need an emergent repair of incisional hernia with possible bowel resection. I reviewed the procedure, risks, and alternatives with the patient he consents to the surgery. He has been added onto the operative schedule for today. Patient is at high risk due to his multiple co-morbidities with surgery is necessary to prevent bowel perforation. Procedures Date of Service Date of Service: 02/08/21
[2021-02-08 09:26] LABS: Reflex Lactate? Lactic Acid Added
--- NOTE | 2021-02-08 09:26 | PC.NURSE ---
pt seen by dr. handy, pt aware of plan of care.
--- NOTE | 2021-02-08 09:27 | PM.CNCAR ---
History of Present Illness History of Present Illness Date of Service: 02/08/21 Requesting physician: [facility] Consult reason: chest pain, atrial fibrillation and pre-op evaluation Chief complaint: MID SUBSTERNAL CHEST PAIN/UNMEDICATED AFIB Narrative: I was requested to see Bennie in cardiology consultation today emergently for patient needing to go to the operating room urgently/emergently for possible bowel strangulation suspected. Patient said he has been having abdominal plain and not been able to take his medications or has been not taking his medications for rate control for atrial fibrillation for last 2 days. Not sure if he is also taking any oral anticoagulation. Came to the hospital with retrosternal chest pressure along with abdominal pain. His initial EKG shows atrial fibrillation rapid ventricular response with right bundle-branch block with no acute ST T wave changes. His troponin is in the mid 24 range, similar to his troponin when he presented in December with atrial fibrillation rapid ventricular response. On questioning why he had atrial fibrillation rapid ventricular response December, he said he drinks alcohol and sometimes forgets to take his medications and has atrial fibrillation. He has a last myocardial perfusion imaging in 2014 which was negative for myocardial ischemia. He does not recall having ever been told that he has coronary artery disease or has had any coronary revascularization a myocardial infarction. Currently appears comfortable and says his pain got better after he got IV morphine and his rate is better controlled on IV Cardizem but still remains difficult control. He is currently on 10 mg an hour of Cardizem drip. Plan to undergo surgery as mention as soon as possible for pending bowel strangulation for Ovalle's hernia. Patient has continued to use alcohol and was using alcohol up to an however before his presentation to the emergency room. He also had episodes of vomiting. Review of Systems Constitutional: Constitutional: Reports no additional constitutional complaints Eyes: Eyes: Reports no additional eye complaints Cardiovascular: Cardiovascular: Reports chest pain, Denies lightheadedness, Denies Loss of Consciousness, Reports palpitations and Denies dyspnea Respiratory: Respiratory: Reports no additional respiratory complaints and Denies dyspnea Gastrointestinal: Gastrointestinal: Reports abdominal pain, Reports diarrhea and Reports vomiting Genitourinary: Genitourinary: Reports no additional male genitourinary complaints Musculoskeletal: Musculoskeletal: Reports no additional musculoskeletal complaints Integumentary/Breasts: Skin/Breast: Reports system reviewed and no additional complaints, except as docu Neurologic: Reports system reviewed and no additional complaints, except as documented Psychiatric: Psychiatric: Reports no additional psychiatric complaints Endocrine: Endocrine: Reports no additional endocrine complaints and Reports palpitations Hematologic/Lymphatic: Hematologic/Lymphatic: Reports no additional hematologic/lymphatic complaints [facility] Past Medical History Medical History Alcohol dependence Alcohol intoxication Anemia Chronic atrial fibrillation Depression Dyslipidemia History of alcohol abuse Insomnia Morbid obesity Obesity Pulmonary embolism Thoracic aortic aneurysm Toenail deformity Family History Family History Mother No problems noted. Father No problems noted. Family/Other Substance use disorder Surgical History Surgical History History of inguinal hernia repair Hx of gastric bypass S/P cholecystectomy Social History Social History Household Members: Family Household Members Other:: lives with mother Housing: House Alcohol intake: current Alcohol intake frequency: 3 or more drinks per day Alcohol type: beer and wine Patient Tobacco Use Status: Never used Tobacco e-Cigarette/Vaping Use: Never Used Second Hand Smoke Exposure: No Use of substances other than those prescribed or required for medical reasons: No Advance Directives: No Advance Directives Information Provided: No service: No Current occupational status: retired [employer] Allergies Allergy/AdvReac Type Severity Reaction Status Date / Time No Known Allergies Allergy Verified 12/15/20 05:52 Active Medications: Current Medications Diltiazem HCl 125 mg/ Sodium (Chloride) 125 mls @ 0 mls/hr IVCONT .Q0M [facility]; Protocol Last Admin: 02/08/21 04:52 Dose: 5 mg/hr, 5 mls/hr Documented by: Piperacillin Sod/Tazobactam (Sod 3.375 gm/ Sodium Chloride) 50 mls @ 100 mls/hr IV ONCE ONE Stop: 02/08/21 09:50 Home Medications Medication Instructions Recorded Confirmed Last Taken Type venlafaxine 75 mg capsule,extended 75 mg PO DAILY 12/15/20 12/15/20 Unknown History release 24 hr zolpidem 10 mg tablet (Ambien) 10 mg PO BEDTIME 12/15/20 12/15/20 Unknown History Physical Exam Vital Signs: Vital Signs: Last Vital Signs Temp 98.7 F 02/08/21 07:12 Pulse 118 H 02/08/21 07:12 Resp 18 02/08/21 07:12 BP 121/79 02/08/21 07:12 Pulse Ox 98 02/08/21 07:12 Body Mass Index 46.2 Const: General: cooperative, alert, awake, anxious and ill appearing Nutritional Appearance: obese morbidly obese Orientation/consciousness: patient oriented x3 HENMT: Head: Yes normocephalic and Yes atraumatic Neck: Neck: Yes trachea midline, Yes supple and Yes no JVD Chest: Chest palpation & inspection: normal inspection of the chest Resp: Effort & Inspection: decreased respiratory effort Auscultation: clear to auscultation bilaterally and diminished lung sounds Cardio: Jugular venous distension: no JVD Rate: tachycardic Rhythm: abnormal rhythm irregularly irregular Heart sounds: S1 normal heart sound present, S2 normal heart sound present, no click, no gallops, no murmurs and no rubs GI: Inspection: Yes distended and Yes obesity Auscultation: Absent bowel sounds Skin: General skin exam: no rashes or lesions noted and erythema (Bilateral lower extremities) Neuro: General: patient oriented x3 and no focal motor deficits Extrem: General: No clubbing, No cyanosis and Yes edema Psych: Appearance: grossly normal Results Labs and Meds Result diagrams: 02/08/21 01:30 02/08/21 01:30 Lab results: Laboratory Results - last 24 hr 02/08/21 02/08/21 02/08/21 01:30 01:30 01:30 WBC 4.7 L RBC 4.70 Hgb 13.4 L Hct 40.9 L MCV 87.0 MCH 28.5 MCHC 32.8 RDW 19.8 H Plt Count 164 MPV 10.5 Immature Gran % (Auto) 0.2 Neut % (Auto) 72.5 Lymph % (Auto) 5.3 L [place] % (Auto) 21.6 H Eos % (Auto) 0.0 Baso % (Auto) 0.4 Lymph # (Auto) 0.3 L [place] # (Auto) 1.0 Eos # (Auto) 0.0 Baso # (Auto) 0.0 Abs Immat Gran (auto) 0.01 Absolute Neuts (auto) 3.39 Absolute Nucleated RBC 0.000 Nucleated RBC % (auto) 0.0 Smear Tech's Comments VERIFIED PT 12.7 INR 1.1 Sodium 135 Potassium 3.8 Chloride 99 Carbon Dioxide 17 L Anion Gap 23 H BUN 15 Creatinine 0.95 Estim Creat Clear Calc 123.6 Estimated GFR > 60 Random Glucose 108 Lactic Acid Calcium 8.0 L Magnesium 2.3 Total Bilirubin 0.5 AST 38 H ALT 28 Alkaline Phosphatase 100 Troponin I High Sens B-Natriuretic Peptide Total Protein 7.1 Albumin 3.9 Lipase 16 Urine Color Urine Appearance Urine pH Ur Specific [place] Urine Protein Urine Glucose (UA) Urine Ketones Urine Blood Urine Nitrite Ur Leukocyte Esterase Urine RBC Urine WBC Ur Squamous Epith Cells Urine Bacteria Hyaline Casts Granular Casts Urine Mucus Ethyl Alcohol COVID-19 ([facility]) CN [employer] 02/08/21 02/08/21 02/08/21 01:30 01:30 01:30 WBC RBC Hgb Hct MCV MCH MCHC RDW Plt Count MPV Immature Gran % (Auto) Neut % (Auto) Lymph % (Auto) [place] % (Auto) Eos % (Auto) Baso % (Auto) Lymph # (Auto) [place] # (Auto) Eos # (Auto) Baso # (Auto) Abs Immat Gran (auto) Absolute Neuts (auto) Absolute Nucleated RBC Nucleated RBC % (auto) Smear Tech's Comments PT INR Sodium Potassium Chloride Carbon Dioxide Anion Gap BUN Creatinine Estim Creat Clear Calc Estimated GFR Random Glucose Lactic Acid Calcium Magnesium Total Bilirubin AST ALT Alkaline Phosphatase Troponin I High Sens 25.4 B-Natriuretic Peptide 54 Total Protein Albumin Lipase Urine Color Urine Appearance Urine pH Ur Specific [place] Urine Protein Urine Glucose (UA) Urine Ketones Urine Blood Urine Nitrite Ur Leukocyte Esterase Urine RBC Urine WBC Ur Squamous Epith Cells Urine Bacteria Hyaline Casts Granular Casts Urine Mucus Ethyl Alcohol 279 COVID-19 ([facility]) Negative [employer] See Note 02/08/21 02/08/21 06:27 07:23 WBC RBC Hgb Hct MCV MCH MCHC RDW Plt Count MPV Immature Gran % (Auto) Neut % (Auto) Lymph % (Auto) [place] % (Auto) Eos % (Auto) Baso % (Auto) Lymph # (Auto) [place] # (Auto) Eos # (Auto) Baso # (Auto) Abs Immat Gran (auto) Absolute Neuts (auto) Absolute Nucleated RBC Nucleated RBC % (auto) Smear Tech's Comments PT INR Sodium Potassium Chloride Carbon Dioxide Anion Gap BUN Creatinine Estim Creat Clear Calc Estimated GFR Random Glucose Lactic Acid 2.5 H* Calcium Magnesium Total Bilirubin AST ALT Alkaline Phosphatase Troponin I High Sens B-Natriuretic Peptide Total Protein Albumin Lipase Urine Color YELLOW Urine Appearance CLEAR Urine pH 6.0 Ur Specific [place] 1.025 Urine Protein 2+ H Urine Glucose (UA) NEG Urine Ketones 15 Urine Blood 1+ H Urine Nitrite NEG Ur Leukocyte Esterase NEG Urine RBC 1-4 Urine WBC 1-4 Ur Squamous Epith Cells 2+ Urine Bacteria 2+ Hyaline Casts 1-4 Granular Casts 1-4 Urine Mucus 2+ Ethyl Alcohol COVID-19 ([facility]) COVID-19 Clin Com EKG shows atrial fibrillation rapid ventricular response with right bundle-branch block which is chronic with no acute ST T wave changes in non precordial leads Imaging Radiologist's impression: Impressions Chest X-Ray 02/08/21 01:16 IMPRESSION: Borderline cardiomegaly. No acute pulmonary findings. Venous Duplex 02/08/21 01:55 IMPRESSION: No DVT demonstrated in the right lower extremity. Abdomen/Pelvis CT 02/08/21 04:07 IMPRESSION: 1..Two tandem Ovalle's type hernias in the ventral abdomen involving the transverse colon. Subtle surrounding inflammatory changes and wall thickening in this region suggest local irritation and possible strangulation. No pneumatosis. Additional fat-containing mental abdominal hernias are noted. 2. Diffuse small bowel distention, most likely corresponding to a reactive ileus related to the aforementioned hernias. Small bowel obstruction is felt to be less likely. 3. Focal wall thickening at the terminal ileum is of uncertain etiology. This may correspond to a second region of inflammation, but is not specific. Query symptoms of terminal ileitis. 4. Small hiatal hernia. Circumferential wall thickening in distal esophagus may be due to reflux esophagitis. 5. Global cardiomegaly. No acute pulmonary findings. 6. Hepatic steatosis. 7. Moderately distended bladder. Chest CT 02/08/21 04:07 IMPRESSION: 1..Two tandem Ovalle's type hernias in the ventral abdomen involving the transverse colon. Subtle surrounding inflammatory changes and wall thickening in this region suggest local irritation and possible strangulation. No pneumatosis. Additional fat-containing mental abdominal hernias are noted. 2. Diffuse small bowel distention, most likely corresponding to a reactive ileus related to the aforementioned hernias. Small bowel obstruction is felt to be less likely. 3. Focal wall thickening at the terminal ileum is of uncertain etiology. This may correspond to a second region of inflammation, but is not specific. Query symptoms of terminal ileitis. 4. Small hiatal hernia. Circumferential wall thickening in distal esophagus may be due to reflux esophagitis. 5. Global cardiomegaly. No acute pulmonary findings. 6. Hepatic steatosis. 7. Moderately distended bladder. Assessment and Plan (1) Pre-operative cardiovascular examination: Status: Acute Preoperative cardiovascular examination in this middle-aged man with severe obesity, chronic atrial fibrillation, alcohol use and having active chest pain. Patient also currently in atrial fibrillation with rapid ventricular response related to both the medical/surgical acute process going on as well as not taking his medications. He also appears mildly toxic. It seems like his surgical intervention is deemed to be emergent/urgent. I do not thing is active chest pain is related to myocardial ischemia. He has had similar presentation in the past with atrial fibrillation rapid ventricular response and chest pain is been control with rate control. His chest pain is better with rate control and morphine. Currently not having any signs of acute myocardial ischemia by troponins as well as EKG changes. Would repeat under troponin. Given the unstable nature of his presentation, he is high risk for surgery but currently seems like that is his only option given his incarcerated hernia. Continue IV Cardizem for rate control. May add IV esmolol for rate control as well. Use morphine p.r.n.. Close hemodynamic monitoring during surgery. Please consult us in the perioperative time if needed. I think given patient's acute presentation and multiple abnormalities may be monitor in ICU setting. Discussed the case with Dr. Calvin who will evaluate the patient as well. (2) Atrial fibrillation with RVR: Status: Acute Atrial fibrillation rapid ventricular response secondary to not taking his medications for 2 days as well as acute medical/surgical process. This is causing his chest pain syndrome as it has in the past. Unfortunately he has issues with noncompliance related to alcohol use. Has had alcohol intake up to an hour before his presentation to the emergency room. Discussed importance of medical compliance. For now continue IV Cardizem and may add IV esmolol if blood pressure allows for rate control through the acute process. Eventually once the oral route is established can switch to his chronic medications. He also has not taken his oral anticoagulation. This can be reestablished after surgery when deemed appropriate by surgery. S abstinence from alcohol was discussed. Will follow with the patient. Procedures Date of Service Date of Service: 02/08/21
--- NOTE | 2021-02-08 10:06 | PC.NURSE ---
atemped lab draw times 2 going to call lab for help
--- NOTE | 2021-02-08 10:12 | PC.NURSE ---
dr. koroma (icu) at bedside, pt aware of plan of care.
--- NOTE | 2021-02-08 10:32 | PC.NURSE ---
diarrhea x 1
--- NOTE | 2021-02-08 10:49 | W.PM.CCCN ---
History of Present Illness Data of Consult Service Date: 02/08/21 Requesting physician: Jose Huff Primary Care Provider: Unknown Physician HPI Reason for consult: Atrial fibrillation with RVR/restrictive diastolic dysfunction/chest pain/a 60-year-old obese male status post gastric bypass surgery who had a 200 lb weight loss but a regain of 100 lb and is known to be chronic atrial fibrillation with right bundle branch block and diffuse nonspecific ST-T changes and currently on Cardizem drip for some degree of rate control who presents with combination of abdominal pain which is which is overwhelmingly hypogastric with inability to eat or drink for 4 days but he did drink alcohol last drink last night well over 12 hours ago any presented with an alcohol level of 279 at 1:30 a.m. this morning currently shaky he feels he is having withdrawal problems but he remains oriented at this point and says he has got sharp chest discomfort which before was helped by a morphine He did have fever or shaking chills at home and he did have nausea vomiting just severe diarrhea Bedside echo shows a small hyperdynamic left ventricle with all valve structures normal and no significant mitral regurgitation but there is significant dilatation of the left atrium therefore presumably based on diastolic dysfunction coupled with the persistent atrial fibrillation and he has got significant 4+ bilateral pretibial edema No respiratory distress and lab work shows lactic acid 2.5 with an elevated anion gap of 23 and reduced serum bicarb to [address] scan in a just shows the left atrial dilatation no other particular chest pathology and the abdomen is no free air a distended loops of small bowel with some bowel wall thickening and transverse colon in 2 spots in the ventral wall appears to be in hernia sac Review of Systems Review of Systems: Pertinent positives on 10 point review of systems were a waxing waning degree of sharp chest discomfort and a sense of withdrawal in by virtue of the shakes and some degree of that tachycardia Yes all other systems are reviewed and are negative [facility] Past Medical History Medical History (Updated 02/08/21 @ 11:00 by Zully Calix MD) Alcohol dependence Alcohol intoxication Anemia Chronic atrial fibrillation Depression Dyslipidemia Heart failure with left ventricular ejection fraction greater than or equal to 50 percent History of alcohol abuse Insomnia Morbid obesity Obesity Pulmonary embolism Thoracic aortic aneurysm Toenail deformity Family History Family History Mother No problems noted. Father No problems noted. Family/Other Substance use disorder Surgical History Surgical History History of inguinal hernia repair Hx of gastric bypass S/P cholecystectomy Social History Social History Household Members: Family Household Members Other:: lives with mother Housing: House Alcohol intake: current Alcohol intake frequency: 3 or more drinks per day Alcohol type: beer and wine Patient Tobacco Use Status: Never used Tobacco e-Cigarette/Vaping Use: Never Used Second Hand Smoke Exposure: No Use of substances other than those prescribed or required for medical reasons: No Advance Directives: No Advance Directives Information Provided: No service: No Current occupational status: retired [employer] Allergies Allergy/AdvReac Type Severity Reaction Status Date / Time No Known Allergies Allergy Verified 12/15/20 05:52 Active Medications: Current Medications Diltiazem HCl 125 mg/ Sodium (Chloride) 125 mls @ 0 mls/hr IVCONT .Q0M [facility]; Protocol Last Admin: 02/08/21 04:52 Dose: 5 mg/hr, 5 mls/hr Documented by: Home Medications Medication Instructions Recorded Confirmed Last Taken Type venlafaxine 75 mg capsule,extended 75 mg PO DAILY 12/15/20 12/15/20 Unknown History release 24 hr zolpidem 10 mg tablet (Ambien) 10 mg PO BEDTIME 12/15/20 12/15/20 Unknown History Physical Exam Vital Signs: Vital Signs: Last Vital Signs Temp 98.7 F 02/08/21 07:12 Pulse 112 H 02/08/21 10:12 Resp 17 02/08/21 10:12 BP 102/33 L 02/08/21 10:12 Pulse Ox 95 02/08/21 10:12 Body Mass Index 46.2 Currently normotensive and afebrile with modest elevation of heart rate in AFib at about 115 very significant increase in body mass index of 46 and by pulse ox saturation is 95% Awaken oriented and nonfocal Lungs clear by CT scan and cardiac function hyperdynamic with globally normal systolic wall motion normal right and left ventricular systolic reserve just dilatation of left atrium Abdomen is silent no guarding no palpable organomegaly 4+ bilateral pretibial edema with some stasis dermatitis Results Labs CBC & Chem 7: 02/08/21 01:30 02/08/21 01:30 Labs: Short CBC 02/08/21 Range/Units 01:30 WBC 4.7 L (4.8-10.8) X10*3/uL Hgb 13.4 L (14.0-18.0) g/dl Hct 40.9 L (42.0-52.0) % Plt Count 164 (160-400) X10*3/uL BMP 02/08/21 01:30 Sodium 135 Potassium 3.8 Chloride 99 Carbon Dioxide 17 L BUN 15 Creatinine 0.95 Calcium 8.0 L Liver Function 02/08/21 Range/Units 01:30 Total Bilirubin 0.5 (0.0-1.0) mg/dL AST 38 H (5-37) U/L ALT 28 (0-40) U/L Alkaline Phosphatase 100 (39-117) U/L Albumin 3.9 (3.5-5.0) g/dL Urine 02/08/21 Range/Units 06:27 Urine Color YELLOW Urine Appearance CLEAR Urine pH 6.0 (5.0-8.0) Ur Specific [place] 1.025 (1.005-1.025) Urine Protein 2+ H (NEG-TRACE) MG/DL Urine Glucose (UA) NEG (NEG) MG/DL Assessment and Plan (1) Incarcerated incisional hernia: Status: Acute (2) Atrial fibrillation with RVR: Status: Acute (3) Urinary retention: Status: Acute (4) Alcohol intoxication: Status: Acute (5) Depression: Status: Acute (6) Insomnia: Status: Acute (7) Morbid obesity: Status: Acute (8) Dyslipidemia: Status: Acute (9) Chronic atrial fibrillation: Status: Acute (10) Thoracic aortic aneurysm: Status: Acute (11) Incisional hernia: Status: Acute (12) Ileus: Status: Acute (13) Heart failure with left ventricular ejection fraction greater than or equal to 50 percent: Status: Acute (14) Alcohol withdrawal: Status: Acute (15) Metabolic acidosis with increased anion gap and accumulation of organic acids: Status: Acute Spoke with Anesthesia and then hopefully with surgery about placing a central line to guide fluid management and probably to keep him intubated postoperatively at least for 24-36 hours to help with the acute alcohol withdrawal and continue with the IV Zosyn until we find out what the appearance of the bowel is from the surgeon and control heart rate to a degree with the ability to follow central venous oxygen saturation to follow cardiac output and potentially follow troponins as well
--- NOTE | 2021-02-08 11:08 | PC.NURSE ---
pt is npo, to have surgery sometime today per dr. koroma(icu). dr. handy at bedside, pt aware of plan of care.
[2021-02-08] MEDS: Piperacillin Sodium/Tazobactam 3.375 GM in 0.9 % Sodium Chloride 50 ML IV (11:35)
[2021-02-08] MEDS: Lactated Ringers 1,000 ML 150 ML IVCONT (11:46)
[2021-02-08 11:56] LABS: ~Lactic Acid-LAB USE ONLY 2.5 mmol/L (0.5-2.0)
[2021-02-08 12:29] LABS: CDiff Gene PCR NEGATIVE (Negative)
--- NOTE | 2021-02-08 13:18 | P.CONAN_ITS ---
HPI - Anesthesia Eval Consult details Narrative: repair incarcer hernia. [facility]LY [facility] Active Problems Active Problems: All Active Problems (Updated 02/08/21 @ 11:00 by Zully Calix MD) Metabolic acidosis with increased anion gap and accumulation of organic acids (Acute) Alcohol withdrawal (Acute) Heart failure with left ventricular ejection fraction greater than or equal to 50 percent (Acute) Pre-operative cardiovascular examination (Acute) Incarcerated incisional hernia (Acute) Atrial fibrillation with RVR (Acute) Urinary retention (Acute) Alcohol intoxication (Acute) Ileus (Acute) Incisional hernia (Acute) Thoracic aortic aneurysm (Acute) Chronic atrial fibrillation (Acute) Toenail deformity (Acute) Dyslipidemia (Acute) Anemia (Acute) Morbid obesity (Acute) Insomnia (Acute) Depression (Acute) Past Medical History Medical History (Updated 02/08/21 @ 11:00 by Zully Calix MD) Alcohol dependence Alcohol intoxication Anemia Chronic atrial fibrillation Depression Dyslipidemia Heart failure with left ventricular ejection fraction greater than or equal to 50 percent History of alcohol abuse Insomnia Morbid obesity Obesity Pulmonary embolism Thoracic aortic aneurysm Toenail deformity Family History Family History Mother No problems noted. Father No problems noted. Family/Other Substance use disorder Family history of problems with anesthesia: No Surgical History Surgical History History of inguinal hernia repair Hx of gastric bypass S/P cholecystectomy History of Problems with Anesthesia: No Social History Social History Household Members: Family Household Members Other:: lives with mother Housing: House Alcohol intake: current Alcohol intake frequency: other Alcohol type: beer and wine Patient Tobacco Use Status: Never used Tobacco e-Cigarette/Vaping Use: Never Used Second Hand Smoke Exposure: No Use of substances other than those prescribed or required for medical reasons: No Are you DNR?: No Advance Directives: No Advance Directives Information Provided: No service: No Current occupational status: retired Meds Allergies Allergy/AdvReac Type Severity Reaction Status Date / Time No Known Allergies Allergy Verified 12/15/20 05:52 Active Medications: Current Medications Diltiazem HCl 125 mg/ Sodium (Chloride) 125 mls @ 0 mls/hr IVCONT .Q0M MARILEE; Protocol Last Titration: 02/08/21 11:45 Dose: 15 mg/hr, 15 mls/hr Documented by: Lactated Ringer's (Lr) 1,000 mls @ 150 mls/hr IVCONT .Q6H40M [facility] Last Admin: 02/08/21 11:46 Dose: 150 mls/hr Documented by: Cefazolin Sodium/Dextrose (Ancef) 2 gm in 50 mls @ 100 mls/hr IV PREOP ONE Stop: 02/08/21 13:25 Ondansetron HCl (Ondansetron Hcl 4 Mg/2 Ml Vial) 4 mg IVPUSH QID PRN PRN Reason: Nausea Home Medications Medication Instructions Recorded Confirmed Last Taken Type venlafaxine 75 mg capsule,extended 75 mg PO DAILY 12/15/20 12/15/20 Unknown History release 24 hr zolpidem 10 mg tablet (Ambien) 10 mg PO BEDTIME 12/15/20 12/15/20 Unknown History Exam Exam Date and Time: February 08, 2021 1318 Height,Weight and Vital Signs: Height 6 ft Weight 154.675 kg Last Vital Signs Temp 98.9 F 02/08/21 12:43 Pulse 114 H 02/08/21 12:43 Resp 18 02/08/21 12:43 BP 106/76 02/08/21 12:43 Pulse Ox 96 02/08/21 12:43 Pertinent Lab Results Pertinent Lab Results: Laboratory Tests 02/08/21 02/08/21 02/08/21 01:30 01:30 01:30 WBC 4.7 L RBC 4.70 Hgb 13.4 L Hct 40.9 L MCV 87.0 MCH 28.5 MCHC 32.8 RDW 19.8 H Plt Count 164 MPV 10.5 Immature Gran % (Auto) 0.2 Neut % (Auto) 72.5 Lymph % (Auto) 5.3 L Stephens % (Auto) 21.6 H Eos % (Auto) 0.0 Baso % (Auto) 0.4 Lymph # (Auto) 0.3 L Stephens # (Auto) 1.0 Eos # (Auto) 0.0 Baso # (Auto) 0.0 Abs Immat Gran (auto) 0.01 Absolute Neuts (auto) 3.39 Absolute Nucleated RBC 0.000 Nucleated RBC % (auto) 0.0 Smear Tech's Comments VERIFIED PT 12.7 INR 1.1 Sodium 135 Potassium 3.8 Chloride 99 Carbon Dioxide 17 L Anion Gap 23 H BUN 15 Creatinine 0.95 Estim Creat Clear Calc 123.6 Estimated GFR > 60 Random Glucose 108 Lactic Acid Lactic Acid Fup @ 2Hr Calcium 8.0 L Magnesium 2.3 Total Bilirubin 0.5 AST 38 H ALT 28 Alkaline Phosphatase 100 Troponin I High Sens B-Natriuretic Peptide Total Protein 7.1 Albumin 3.9 Lipase 16 Urine Color Urine Appearance Urine pH Ur Specific [place] Urine Protein Urine Glucose (UA) Urine Ketones Urine Blood Urine Nitrite Ur Leukocyte Esterase Urine RBC Urine WBC Ur Squamous Epith Cells Urine Bacteria Hyaline Casts Granular Casts Urine Mucus Ethyl Alcohol C. difficile Tox B Gene COVID-19 (NOLNA) [employer] 02/08/21 02/08/21 02/08/21 01:30 01:30 01:30 WBC RBC Hgb Hct MCV MCH MCHC RDW Plt Count MPV Immature Gran % (Auto) Neut % (Auto) Lymph % (Auto) Stephens % (Auto) Eos % (Auto) Baso % (Auto) Lymph # (Auto) Stephens # (Auto) Eos # (Auto) Baso # (Auto) Abs Immat Gran (auto) Absolute Neuts (auto) Absolute Nucleated RBC Nucleated RBC % (auto) Smear Tech's Comments PT INR Sodium Potassium Chloride Carbon Dioxide Anion Gap BUN Creatinine Estim Creat Clear Calc Estimated GFR Random Glucose Lactic Acid Lactic Acid Fup @ 2Hr Calcium Magnesium Total Bilirubin AST ALT Alkaline Phosphatase Troponin I High Sens 25.4 B-Natriuretic Peptide 54 Total Protein Albumin Lipase Urine Color Urine Appearance Urine pH Ur Specific [place] Urine Protein Urine Glucose (UA) Urine Ketones Urine Blood Urine Nitrite Ur Leukocyte Esterase Urine RBC Urine WBC Ur Squamous Epith Cells Urine Bacteria Hyaline Casts Granular Casts Urine Mucus Ethyl Alcohol 279 C. difficile Tox B Gene COVID-19 (NOLAN) Negative COVID-[employer] See Note 02/08/21 02/08/21 02/08/21 06:27 07:23 10:00 WBC RBC Hgb Hct MCV MCH MCHC RDW Plt Count MPV Immature Gran % (Auto) Neut % (Auto) Lymph % (Auto) Stephens % (Auto) Eos % (Auto) Baso % (Auto) Lymph # (Auto) Stephens # (Auto) Eos # (Auto) Baso # (Auto) Abs Immat Gran (auto) Absolute Neuts (auto) Absolute Nucleated RBC Nucleated RBC % (auto) Smear Tech's Comments PT INR Sodium Potassium Chloride Carbon Dioxide Anion Gap BUN Creatinine Estim Creat Clear Calc Estimated GFR Random Glucose Lactic Acid 2.5 H* Lactic Acid Fup @ 2Hr Calcium Magnesium Total Bilirubin AST ALT Alkaline Phosphatase Troponin I High Sens B-Natriuretic Peptide Total Protein Albumin Lipase Urine Color YELLOW Urine Appearance CLEAR Urine pH 6.0 Ur Specific [place] 1.025 Urine Protein 2+ H Urine Glucose (UA) NEG Urine Ketones 15 Urine Blood 1+ H Urine Nitrite NEG Ur Leukocyte Esterase NEG Urine RBC 1-4 Urine WBC 1-4 Ur Squamous Epith Cells 2+ Urine Bacteria 2+ Hyaline Casts 1-4 Granular Casts 1-4 Urine Mucus 2+ Ethyl Alcohol C. difficile Tox B Gene NEGATIVE COVID-19 (NOLAN) COVID-[employer] 02/08/21 02/08/21 11:15 11:18 WBC RBC Hgb Hct MCV MCH MCHC RDW Plt Count MPV Immature Gran % (Auto) Neut % (Auto) Lymph % (Auto) Stephens % (Auto) Eos % (Auto) Baso % (Auto) Lymph # (Auto) Stephens # (Auto) Eos # (Auto) Baso # (Auto) Abs Immat Gran (auto) Absolute Neuts (auto) Absolute Nucleated RBC Nucleated RBC % (auto) Smear Tech's Comments PT INR Sodium Potassium Chloride Carbon Dioxide Anion Gap BUN Creatinine Estim Creat Clear Calc Estimated GFR Random Glucose Lactic Acid Lactic Acid Fup @ 2Hr 2.5 H* Calcium Magnesium Total Bilirubin AST ALT Alkaline Phosphatase Troponin I High Sens 27.0 B-Natriuretic Peptide Total Protein Albumin Lipase Urine Color Urine Appearance Urine pH Ur Specific [place] Urine Protein Urine Glucose (UA) Urine Ketones Urine Blood Urine Nitrite Ur Leukocyte Esterase Urine RBC Urine WBC Ur Squamous Epith Cells Urine Bacteria Hyaline Casts Granular Casts Urine Mucus Ethyl Alcohol C. difficile Tox B Gene COVID-19 (NOLAN) COVID-19 [employer] Surve[employer] Com Airway Mallampati Class: II TM Dist: >3cm Neck ROM: Full Denture: Upper Loose/Missing/Broken Teeth: Yes and Lower Heart: afib, diast HF Lungs: clear. Other: Sat 94% on rm air. Incipient alcohol withdrawal. Uncontrolled afib, on dilt gtt 15mg/hr. Assessment and Plan Assessment Anesthesia Assessment: Anesthesia Plan Discussed and Chart Reviewed Final Anesthetic Review Family History of Problems with Anesthesia: No History of Problems with Anesthesia: No NPO: Yes ASA Class: IV and Emergency Final Preanesthetic Review: No Changes in Pt Med Stat, Meds/Allgs Chart Reviewed, Consent Obtained/Reviewed, Anes Risks/Benef Reviewed and DNR Form (If Appl.) Patient Risk: High Procedure Risk: High Anesthetic Plan Anesthetic Plan: GA and Agree w/ Assess. and Plan Disposition: Inp. Admit - ICU
[2021-02-08 13:25] LABS: Reflex Lactate? 2 Y
--- NOTE | 2021-02-08 15:18 | P.OP_ITS ---
Operative Note Operative Note Date of Service: 02/08/21 Narrative: Preoperative diagnosis: Strangulated incisional hernia Postoperative diagnosis: Incarcerated incisional hernia Procedure: Repair of incisional hernia without mesh Surgeon: Parker Blunt MD Tax Manager Public: Iman Conway PA-C Anesthesia: General endotracheal Indications for procedure: 60-year-old male patient with multiple medical problems presenting with complaints of chest and abdominal pain found on CT of the abdomen and pelvis to have a possible strangulated Ovalle's hernia. Operative findings: Incarcerated incisional hernia with multiple openings involving the upper midline abdomen. Ovalle's hernia was identified but bowel remained viable without evidence of necrosis. Specimen: None Estimated blood loss: 20 mL Complications: None Procedure details: Patient was brought to the OR placed in a supine position. After administering general anesthesia the patient's abdomen was prepped with ChloraPrep and draped in a sterile fashion. A surgical time-out was called and the consent confirmed. Patient received preoperative antibiotics and Venodyne boots were in place. Local anesthesia consisting of 0.5% Sensorcaine without epinephrine was infiltrated in the midline. Midline incision was then created with scalpel. This carried out through subcutaneous tissue up to the hernia sac. The multiple hernia sacs were identified with a [place]-cheese type deformity. Each individual hernia was freed from the subcutaneous tissue and the fascial defects combined into 1 defect measuring approximately 15 cm in diameter. Each of the hernia sacs were opened and any bowel released from the hernia sac. No infarcted/necrotic bowel was identified. The bowel and omentum returned to the abdominal cavity. The edges of the fascia were then freshened. Fascia was then closed transversely using a running 1 Maxon suture and tied in the center. Wounds were then irrigated with saline and suctioned dry. Subcutaneous tissue and dermis were then reapproximated using interrupted 3-0 Polysorb sutures. Skin was then closed using skin atif. Sterile dressings were applied. The patient tolerated the procedure well. Sponge, instrument, needle counts reported as correct. The patient was transferred to intensive care unit in stable condition.
[2021-02-08] MEDS: propofoL 200 MG/20 ML VIAL 40 MG IVPUSH ×2 (15:20→16:00)
[2021-02-08] MEDS: fentaNYL citrate/PF 100 MCG/2 ML VIAL 200 MCG IVPUSH (15:25)
[2021-02-08] MEDS: propofoL 1,000 MG/100 ML VIAL 23.2 MG IVCONT (15:30)
[2021-02-08] MEDS: propofoL 200 MG/20 ML VIAL 20 MG IVPUSH (16:25)
--- NOTE | 2021-02-08 16:26 | P.CONCC_ITS ---
History of Present Illness Data of Consult Service Date: 02/08/21 Primary Care Provider: Unknown Physician [facility] Past Medical History Medical History (Updated 02/08/21 @ 11:00 by Zully Calix MD) Alcohol dependence Alcohol intoxication Anemia Chronic atrial fibrillation Depression Dyslipidemia Heart failure with left ventricular ejection fraction greater than or equal to 50 percent History of alcohol abuse Insomnia Morbid obesity Obesity Pulmonary embolism Thoracic aortic aneurysm Toenail deformity Family History Family History Mother No problems noted. Father No problems noted. Family/Other Substance use disorder Surgical History Surgical History History of inguinal hernia repair Hx of gastric bypass S/P cholecystectomy Social History Social History Household Members: Family Household Members Other:: lives with mother Housing: House Alcohol intake: current Alcohol intake frequency: other Alcohol type: beer and wine Patient Tobacco Use Status: Never used Tobacco e-Cigarette/Vaping Use: Never Used Second Hand Smoke Exposure: No Use of substances other than those prescribed or required for medical reasons: No Are you DNR?: No Advance Directives: No Advance Directives Information Provided: No service: No Current occupational status: retired Meds Allergies Allergy/AdvReac Type Severity Reaction Status Date / Time No Known Allergies Allergy Verified 12/15/20 05:52 Active Medications: Current Medications Chlorhexidine Gluconate (Chlorhexidine Gluc Oral Rinse 15 Ml Mouthwash) 15 ml BUCCAL TID MARILEE Heparin Sodium (Porcine) (Heparin Sodium,Porcine 5,000 Unit/Ml Vial) 5,000 unit SUBCUT Q8H MARILEE Diltiazem HCl 125 mg/ Sodium (Chloride) 125 mls @ 0 mls/hr IVCONT .Q0M MARILEE; Protocol Last Titration: 02/08/21 11:45 Dose: 15 mg/hr, 15 mls/hr Documented by: Propofol (Diprivan) 1,000 mg in 100 mls @ 0 mls/hr IVCONT .Q0M MARILEE; Protocol Fentanyl (Sublimaze/Ns) 1,000 mcg in 100 mls @ 0 mls/hr IVCONT .Q0M [facility]ILEE; Protocol Lactated Ringer's (Lr) 1,000 mls @ 150 mls/hr IVCONT .Q6H40M [facility] Thiamine HCl 100 mg/ Sodium (Chloride) 101 mls @ 202 mls/hr IV DAILY [facility] Metoprolol Tartrate (Metoprolol Tartrate 5 Mg/5 Ml Vial) 2.5 mg IVPUSH Q6H PRN PRN Reason: Heart Rate >100 Naloxone HCl (Naloxone Hcl 0.4 Mg/Ml Vial) 0.2 mg IVPUSH Q2M PRN PRN Reason: Excessive sedation or RR < 8 Ondansetron HCl (Ondansetron Hcl 4 Mg/2 Ml Vial) 4 mg IVPUSH QID PRN PRN Reason: Nausea Pantoprazole Sodium (Pantoprazole Sodium 40 Mg/10 Ml Vial) 40 mg IVPUSH DAILY@0630 [facility] Home Medications Medication Instructions Recorded Confirmed Last Taken Type venlafaxine 75 mg capsule,extended 75 mg PO DAILY 12/15/20 12/15/20 Unknown History release 24 hr zolpidem 10 mg tablet (Ambien) 10 mg PO BEDTIME 12/15/20 12/15/20 Unknown History Physical Exam Vital Signs: Vital Signs: Last Vital Signs Temp 98.9 F 02/08/21 12:43 Pulse 113 H 02/08/21 16:00 Resp 16 02/08/21 16:00 BP 134/88 02/08/21 16:00 Pulse Ox 96 02/08/21 16:00 Body Mass Index 46.2 Results Labs CBC & Chem 7: 02/08/21 01:30 02/08/21 01:30 Labs: Short CBC 02/08/21 Range/Units 01:30 WBC 4.7 L (4.8-10.8) X10*3/uL Hgb 13.4 L (14.0-18.0) g/dl Hct 40.9 L (42.0-52.0) % Plt Count 164 (160-400) X10*3/uL BMP 02/08/21 01:30 Sodium 135 Potassium 3.8 Chloride 99 Carbon Dioxide 17 L BUN 15 Creatinine 0.95 Calcium 8.0 L Liver Function 02/08/21 Range/Units 01:30 Total Bilirubin 0.5 (0.0-1.0) mg/dL AST 38 H (5-37) U/L ALT 28 (0-40) U/L Alkaline Phosphatase 100 (39-117) U/L Albumin 3.9 (3.5-5.0) g/dL Urine 02/08/21 Range/Units 06:27 Urine Color YELLOW Urine Appearance CLEAR Urine pH 6.0 (5.0-8.0) Ur Specific [place] 1.025 (1.005-1.025) Urine Protein 2+ H (NEG-TRACE) MG/DL Urine Glucose (UA) NEG (NEG) MG/DL
--- NOTE | 2021-02-08 16:29 | W.PM.CCHP ---
Procedures Date of Service Date of Service: 02/08/21 Central Line Placement Right IJ: Central Line Comments: Due to persistent rapid atrial fibrillation and apparent significant diastolic CHF in a patient with postoperative ileus and combined with acute alcohol withdrawal central line placement was deemed necessary After sterile preparation and draping and utilizing ultrasound guidance gained easy entry to the right internal jugular vein passing retrograde with Seldinger technique a J tipped guidewire to the right atrium over which a triple-lumen 20 cm length central venous pressure line was then advanced and it was sewn into place and secured and a and sterilely dressed and awaiting chest x-ray and will set up central venous pressure measurement Consent for Procedure: Emergent-no informed consent obtained Time out performed: Yes Sterile Technique Used: Yes Patient placed on monitor/pulse ox: Yes prep: mask, gown and gloves Central line prep: Chlorhexidine scrub Ultrasound used for placement: Yes Central line lumen inserted: triple Post procedure: sutured in place, good blood return, all ports aspirated, flushed, capped and sterile dressing applied Post procedure x-ray: tip of catheter in good position and no pneumothorax seen Patient tolerated procedure: well and no complications
[2021-02-08] MEDS: Lactated Ringers 1,000 ML 75 ML IVCONT (17:14)
[2021-02-08] MEDS: Heparin Sodium,Porcine 5,000 UNIT/ML VIAL 5000 UNIT SUBCUT (17:17)
[2021-02-08] MEDS: fentaNYL citrate/NS 1,000 MCG/100 ML PLAST..BAG 10 MCG IVCONT (17:17)
[2021-02-08] MEDS: propofoL 1,000 MG/100 ML VIAL 46.4 MG IVCONT ×4 (17:22→23:10)
[2021-02-08] MEDS: dilTIAZem HCL 125 MG in 0.9 % Sodium Chloride 100 ML 15 MG IVCONT ×2 (17:56→21:51)
--- NOTE | 2021-02-08 19:21 | PC.NURSE ---
Patient received from OR at 1530. Sedation started of Propofol and Fentanyl drips after IVP doses given by provider. Fluids of LR started at 75mL/hr. Cardizem infusing at 15mg/hr upon arrival. TLC cath placed to Right IJ. 16Fr OGT placed. PCXR obtained, confirming placement. Remains intubated. Vent settingsAC 16, vT 500, FiO2 60% with PEEP 5. Spo2 99% Oral secretions suctioned with mouth care. Mouth moisturizer used for dry, flaky lips. Lower lip has a notable pencil eraser size bruise/hematoma. Tele shows Afib, controlled Vrate since sedation took effect. Abdomen with surgical dressing C/D/I, abdominal binder present. Medium loose stool cleaned at 1800. Young draining clear yellow urine. Airloss bariatric bed in use, Prevalon pad and boots also in use. SCDs on bilateral lower extremities.
[2021-02-08] MEDS: Chlorhexidine Gluc Oral Rinse 15 ML MOUTHWASH BUCCAL (21:13)
[2021-02-09] VITALS (30 sets, daily range): BP systolic 99–139; BP diastolic 49–89; PULSE 77–128; RESP 15–17; TEMP 37.1–38; O2SAT 94–100; BMI 42.0
[2021-02-09] MEDS: Metoprolol Tartrate 5 MG/5 ML VIAL 2.5 MG IVPUSH (00:47)
[2021-02-09] MEDS: fentaNYL citrate/NS 1,000 MCG/100 ML PLAST..BAG 12.5 MCG IVCONT ×3 (00:58→16:57)
[2021-02-09] MEDS: propofoL 1,000 MG/100 ML VIAL 46.4 MG IVCONT ×12 (00:58→23:07)
[2021-02-09] MEDS: Heparin Sodium,Porcine 5,000 UNIT/ML VIAL 5000 UNIT SUBCUT ×3 (00:59→17:00)
[2021-02-09] MEDS: Lactated Ringers 1,000 ML 75 ML IVCONT ×2 (04:45→16:59)
[2021-02-09 05:48] LABS: PLT CLUMP 1
[2021-02-09 05:50] LABS: Hematocrit 36.4 % (42.0-52.0); Hemoglobin 11.1 g/dl (14.0-18.0); Mean Corpuscular HGB Conc 30.5 g/dl (31.0-36.0); Mean Corpuscular Hemoglobin 27.8 pg (27.0-33.0); Mean Platelet Volume 11.3 fL (9.4-12.4); Platelet Count 128 X10*3/uL (160-400); Red Cell Distribution Width 20.1 % (11.0-16.0)
[2021-02-09 05:55] LABS: WBC ABN SCTR FOR CBC 1; White Blood Count 3.8 X10*3/uL (4.8-10.8)
[2021-02-09] MEDS: dilTIAZem HCL 125 MG in 0.9 % Sodium Chloride 100 ML 15 MG IVCONT (06:01)
[2021-02-09] MEDS: Pantoprazole Sodium 40 MG/10 ML VIAL IVPUSH (06:01)
[2021-02-09 06:08] LABS: Alanine Aminotransferase 21 U/L (0-40); Albumin Level 3.2 g/dL (3.5-5.0); Alkaline Phosphatase 75 U/L (39-117); Anion Gap 13 (12-20); Aspartate Amino Transferase 22 U/L (5-37); Bilirubin Total 0.4 mg/dL (0.0-1.0); Blood Urea Nitrogen 12 mg/dL (9-16); Calcium 7.6 mg/dL (8.4-10.2); Carbon Dioxide 28 mmol/L (22-29); Chloride 101 mmol/L (96-108); Creatinine Clr Calc Pharmacy 106.7; Estimated Glomerular Filt Rate > 60; Glucose Random 102 mg/dL (60-115); Magnesium 2.2 mg/dL (1.6-2.6); Phosphorus 2.3 mg/dL (2.7-4.5); Potassium 3.8 mmol/L (3.3-5.1); Sodium 138 mmol/L (135-145); Total Protein 5.9 g/dL (6.5-8.0)
[2021-02-09 06:23] LABS: Band Neutrophils Percent 29 % (3-5); Lymphocytes Absolute Manual 0.3 X10*3/uL (1.2-4.9); Lymphocytes Percent Manual 9 % (20-40); Monocytes Absolute Manual 0.8 X10*3/uL (0.1-1.2); Monocytes Percent Manual 22 % (2-11); Neutrophils Absolute Manual 2.6 X10*3/uL (2.0-8.3); Neutrophils Percent Manual 40 % (45-73)
[2021-02-09 06:24] LABS: Large Platelet PRESENT; Platelet Estimate SLIGHTLY DECREASED (NORMAL); Platelet Morphology Comment NORMAL
[2021-02-09 06:25] LABS: RBC Morphology NOTED
[2021-02-09 06:26] LABS: Burr Cells 1+ (0-2) /OIF; Hypochromasia 1+ (5-14) /OIF; Ovalocytes 1+ (5-14) /OIF
[2021-02-09 06:27] LABS: Dohle Bodies PRES; Toxic Vacuolation PRESENT
--- NOTE | 2021-02-09 08:03 | PM.PNGS ---
Subjective Subjective Date of Service: 02/09/21 <Iman Conway PA-C - Last Filed: 02/09/21 08:11> 02/09/21 <Parker Blunt MD - Last Filed: 02/09/21 08:19> Interval history: No significant events overnight. Central line placed for a fib with RVR and fluid management. Remains on vent. <Iman Conway PA-C - Last Filed: 02/09/21 08:11> Physical Exam Vital Signs: Vital Signs: Last Vital Signs Temp 99.9 F 02/09/21 07:00 Pulse 102 H 02/09/21 07:00 Resp 16 02/09/21 07:00 BP 115/68 02/09/21 07:00 Pulse Ox 98 02/09/21 07:00 Body Mass Index 42.0 <Iman Conway PA-C - Last Filed: 02/09/21 08:11> Const: General: no acute distress <Iman Conway PA-C - Last Filed: 02/09/21 08:11> Resp: Other: intubated on vent <Iman Conway PA-C - Last Filed: 02/09/21 08:11> Cardio: Rate: tachycardic <Iman Conway PA-C - Last Filed: 02/09/21 08:11> GI: Other: protuberant, abdominal binder in place, dressing clean, abdomen very soft to palpation, nondistended, no tympany <Iman Conway PA-C - Last Filed: 02/09/21 08:11> : Other: hernandez in place <Iman Conway PA-C - Last Filed: 02/09/21 08:11> Skin: General skin exam: no rashes or lesions noted <Iman Conway PA-C - Last Filed: 02/09/21 08:11> Procedures Date of Service Date of Service: 02/09/21 <Iman Conway PA-C - Last Filed: 02/09/21 08:11> Progress Note: A&P Assessment and plan (1) Incarcerated incisional hernia: Status: Acute <Iman Conway PA-C - Last Filed: 02/09/21 08:11> (2) Morbid obesity: Status: Acute <Iman Conway PA-C - Last Filed: 02/09/21 08:11> (3) Alcohol withdrawal: Status: Acute <Iman Conway PA-C - Last Filed: 02/09/21 08:11> (4) Atrial fibrillation with RVR: Status: Acute <Iman Conway PA-C - Last Filed: 02/09/21 08:11> Assessment and Plan: 60 year old male admitted with incisional hernias containing bowel with concern for strangulation, ETOH withdrawals now POD #1 s/p repair of incarcerated incisional hernias. Found to have incarcerated incisional hernia with multiple defects involving the upper midline abdomen. Ovalle's hernia was identified but bowel remained viable without evidence of necrosis. He remained intubated post operatively and transferred to ICU with plans to keep intubated for 24-48h largely on the basis of comorbidities including his rapid atrial fibrillation along with his alcohol withdrawal. His abdomen is benign- soft, nondistended, dressing clean. No acute surgical issues. Cont abdominal binder. Remainder of care per ICU team. <Iman Conway PA-C - Last Filed: 02/09/21 08:11> 60 year old male admitted with incisional hernias containing bowel with concern for strangulation, ETOH withdrawals now POD #1 s/p repair of incarcerated incisional hernias. Found to have incarcerated incisional hernia with multiple defects involving the upper midline abdomen. Ovalle's hernia was identified but bowel remained viable without evidence of necrosis. He remained intubated post operatively and transferred to ICU with plans to keep intubated for 24-48h largely on the basis of comorbidities including his rapid atrial fibrillation along with his alcohol withdrawal. His abdomen is benign- soft, nondistended, dressing clean. No acute surgical issues. Cont abdominal binder. Remainder of care per ICU team. Patient and examined independently and care discussed with ICU team. He remains intubated and sedated due to ETOH withdrawal. He is hemodynamically stable. Abdominal wounds are clean, dry, and abdominal binder is intact. Agree with the above assessment and plan. Will continue to monitor with you. <Parker Blunt MD - Last Filed: 02/09/21 08:19> Fall Risk Details Current Medications: Current Medications Chlorhexidine Gluconate (Chlorhexidine Gluc Oral Rinse 15 Ml Mouthwash) 15 ml BUCCAL TID [facility] Last Admin: 02/08/21 21:13 Dose: 15 ml Documented by: Heparin Sodium (Porcine) (Heparin Sodium,Porcine 5,000 Unit/Ml Vial) 5,000 unit SUBCUT Q8H [facility] Last Admin: 02/09/21 00:59 Dose: 5,000 unit Documented by: Diltiazem HCl 125 mg/ Sodium (Chloride) 125 mls @ 0 mls/hr IVCONT .Q0M [facility]; Protocol Last Admin: 02/09/21 06:01 Dose: 15 mg/hr, 15 mls/hr Documented by: Propofol (Diprivan) 1,000 mg in 100 mls @ 0 mls/hr IVCONT .Q0M [facility]; Protocol Last Admin: 02/09/21 07:30 Dose: 50 mcg/kg/min, 46.4 mls/hr Documented by: Fentanyl (Sublimaze/Ns) 1,000 mcg in 100 mls @ 0 mls/hr IVCONT .Q0M [facility]; Protocol Last Admin: 02/09/21 00:58 Dose: 125 mcg/hr, 12.5 mls/hr Documented by: Lactated Ringer's (Lr) 1,000 mls @ 75 mls/hr IVCONT .[id number] [facility] Last Admin: 02/09/21 04:45 Dose: 75 mls/hr Documented by: Thiamine HCl 100 mg/ Sodium (Chloride) 101 mls @ 202 mls/hr IV DAILY [facility] Metoprolol Tartrate (Metoprolol Tartrate 5 Mg/5 Ml Vial) 2.5 mg IVPUSH Q6H PRN PRN Reason: Heart Rate >100 Last Admin: 02/09/21 00:47 Dose: 2.5 mg Documented by: Naloxone HCl (Naloxone Hcl 0.4 Mg/Ml Vial) 0.2 mg IVPUSH Q2M PRN PRN Reason: Excessive sedation or RR < 8 Pantoprazole Sodium (Pantoprazole Sodium 40 Mg/10 Ml Vial) 40 mg IVPUSH DAILY@0630 [facility] Last Admin: 02/09/21 06:01 Dose: 40 mg Documented by: <Iman Conway PA-C - Last Filed: 02/09/21 08:11> Time Spent With Patient Time: Total time spent is greater than 50% in coordination of care (as documented) at patient's floor/unit and/or counseling patient: <Iman Conway PA-C - Last Filed: 02/09/21 08:11> Time with patient: 15 - 24 minutes <Iman Conway PA-C - Last Filed: 02/09/21 08:11> Quality Stroke Does the patient have a stroke diagnosis?: No <Iman Conway PA-C - Last Filed: 02/09/21 08:11> VTE Prior VTE?: No <Iman Conway PA-C - Last Filed: 02/09/21 08:11> VTE Risk Level:: Surgical - high <CARLO Gong Last Filed: 02/09/21 08:11> VTE Device Contraindication: N/A - Device Ordered <Iman Conway PA-C - Last Filed: 02/09/21 08:11> VTE Drug Contraindication: N/A - Med Ordered <Iman Conway PA-C - Last Filed: 02/09/21 08:11>
[2021-02-09] MEDS: Thiamine HCL 100 MG in 0.9 % Sodium Chloride 100 ML 202 MG IV (09:10)
[2021-02-09] MEDS: Chlorhexidine Gluc Oral Rinse 15 ML MOUTHWASH BUCCAL ×3 (09:10→22:17)
--- NOTE | 2021-02-09 16:11 | PM.CCPN ---
Subjective Subjective Date of Service: 02/09/21 Interval History: 60-year-old morbidly obese male status post previous gastric bypass procedure and subsequently lost 200 lb and regained 100 of that now is over 300 lb presented with acute hypogastric abdominal pain 4 days of no eating or drinking except for alcohol and came in with a significant alcohol level of 279 and was already beginning to withdraw about 12 hours after his last drink when I saw him in the emergency room and he also has persistent atrial fibrillation but with a rapid ventricular response and partially driven by the withdrawal process He went to the OR and found to have a partial small-bowel obstruction he had 2 areas of incarcerated transverse colon in a ventral scar which was fixed and there was no compromised bowel he is doing very well but he remains on the ventilator and in a because of the active withdrawal issue and and remains on IV Cardizem along with propofol sedation maintaining heart rates of about 90 excellent end-tidal CO2 excellent oxygen saturation excellent urine output excellent laboratory work doing beautifully during this withdrawal. Critical Care Time (minutes): 45 Physical Exam Vital Signs: Vital Signs: Last Vital Signs Temp 99.3 F 02/09/21 16:00 Pulse 97 02/09/21 16:00 Resp 16 02/09/21 16:00 BP 112/74 02/09/21 16:00 Pulse Ox 96 02/09/21 16:00 Body Mass Index 42.0 Sedated and intubated CVP on IV fluid remained stable at 14 as are the rest of his vital signs Bedside echo with with preserved left ventricular function and no primary valve or pericardial disease Chest is clear without adventitious sounds Abdomen still quiet but soft no organomegaly Peripheral edema substantial with bilateral stasis dermatitis Objective Data Labs CBC & Chem 7: 02/09/21 05:17 02/09/21 05:17 Labs: Laboratory Results - last 24 hr 02/08/21 02/09/21 02/09/21 16:31 05:17 05:17 WBC 3.8 L RBC 4.00 L Hgb 11.1 L Hct 36.4 L MCV 91.0 MCH 27.8 MCHC 30.5 L RDW 20.1 H Plt Count 128 L MPV 11.3 Immature Gran % (Auto) Cancelled Neut % (Auto) Cancelled Lymph % (Auto) Cancelled [place] % (Auto) Cancelled Eos % (Auto) Cancelled Baso % (Auto) Cancelled Lymph # (Auto) Cancelled [place] # (Auto) Cancelled Eos # (Auto) Cancelled Baso # (Auto) Cancelled Abs Immat Gran (auto) Cancelled Absolute Neuts (auto) Cancelled Absolute Nucleated RBC 0.000 Nucleated RBC % (auto) 0.0 Neutrophils % (Manual) 40 L Band Neutrophils % 29 H Lymphocytes % (Manual) 9 L Monocytes % (Manual) 22 H Abs Neuts (Manual) 2.6 Lymphocytes # (Manual) 0.3 L Monocytes # (Manual) 0.8 Toxic Vacuolation PRESENT Dohle Bodies PRES Platelet Estimate SLIGHTLY DECREASED Large Platelets PRESENT Plt Morphology Comment NORMAL RBC Morphology NOTED Hypochromasia 1+ (5-14) Ovalocytes 1+ (5-14) Vanessa Cells 1+ (0-2) Sodium 138 Potassium 3.8 Chloride 101 Carbon Dioxide 28 Anion Gap 13 BUN 12 Creatinine 1.10 Estim Creat Clear Calc 106.7 Estimated GFR > 60 Random Glucose 102 Lactic Acid Fup @ 4Hr 1.0 Calcium 7.6 L Phosphorus 2.3 L Magnesium 2.2 Total Bilirubin 0.4 AST 22 D ALT 21 Alkaline Phosphatase 75 D Total Protein 5.9 L Albumin 3.2 L Microbiology Microbiology Results: Microbiology 02/08/21 11:14 Blood - Venous Blood Culture - Preliminary No growth after 24 hours. 02/08/21 11:19 Blood - Venous Blood Culture - Preliminary No growth after 24 hours. Quality Stroke Does the patient have a stroke diagnosis?: No VTE Prior VTE?: No VTE Risk Level:: Surgical - high VTE Device Contraindication: N/A - Device Ordered VTE Drug Contraindication: N/A - Med Ordered Progress Note: A&P Assessment and plan (1) Metabolic acidosis with increased anion gap and accumulation of organic acids: Status: Acute (2) Alcohol withdrawal: Status: Acute (3) Heart failure with left ventricular ejection fraction greater than or equal to 50 percent: Status: Acute (4) Pre-operative cardiovascular examination: Status: Acute (5) Incarcerated incisional hernia: Status: Acute (6) Atrial fibrillation with RVR: Status: Acute (7) Urinary retention: Status: Acute (8) Alcohol intoxication: Status: Acute (9) Ileus: Status: Acute (10) Incisional hernia: Status: Acute (11) Thoracic aortic aneurysm: Status: Acute (12) Chronic atrial fibrillation: Status: Acute (13) Toenail deformity: Status: Acute (14) Dyslipidemia: Status: Acute (15) Anemia: Status: Acute (16) Morbid obesity: Status: Acute (17) Insomnia: Status: Acute (18) Depression: Status: Acute Assessment and Plan: Plan is to keep him sedated and intubated least until tomorrow morning at which point I am going to withhold sedation awaken him and if cognitive function looks adequate I will try to wean the ventilator if he appears delirious I am just going to recent date for another 24 hours
[2021-02-09] MEDS: Albumin Human 25 % 100 ML IV ×2 (19:41→21:25)
[2021-02-09] MEDS: Folic Acid 1 MG in 0.9 % Sodium Chloride 50 ML 100.4 MG IV (20:14)
[2021-02-10] VITALS (28 sets, daily range): BP systolic 93–133; BP diastolic 61–89; PULSE 81–123; RESP 8–18; TEMP 36.2–37.6; O2SAT 2–100; BMI 41.5
[2021-02-10] MEDS: fentaNYL citrate/NS 1,000 MCG/100 ML PLAST..BAG 15 MCG IVCONT (00:42)
[2021-02-10] MEDS: propofoL 1,000 MG/100 ML VIAL 46.4 MG IVCONT ×4 (01:18→07:55)
[2021-02-10] MEDS: Heparin Sodium,Porcine 5,000 UNIT/ML VIAL 5000 UNIT SUBCUT ×3 (01:19→17:38)
[2021-02-10] MEDS: Lactated Ringers 1,000 ML 75 ML IVCONT (05:26)
[2021-02-10 05:29] LABS: Venous Blood Gas Refer to POC result
[2021-02-10] MEDS: Pantoprazole Sodium 40 MG/10 ML VIAL IVPUSH (05:29)
[2021-02-10 05:30] LABS: VBG HCO3 33 mmol/L (22-26); VBG pCO2 48 mmHg; VBG pH 7.44 (7.32-7.43); VBG pO2 70 mmHg
[2021-02-10 05:41] LABS: Eosinophils Percent Auto 0.5 % (0-4); Neutrophils Absolute Auto 2.6 x10*3/uL (2.0-8.3); PLT CLUMP 1; Red Blood Count 3.37 X10*6/uL (4.60-5.80); Red Cell Distribution Width 19.9 % (11.0-16.0); SCAN SMEAR FLAG 1
[2021-02-10 05:43] LABS: Basophils Percent Auto 0.3 % (0-2); Hematocrit 31.1 % (42.0-52.0); Hemoglobin 9.5 g/dl (14.0-18.0); Imm Gran Abs Auto 0.04 X10*3/uL (0.00-0.03); Imm Gran Pct Auto 1.1 % (0.0-0.4); Lymphocytes Absolute Auto 0.4 X10*3/uL (1.2-4.9); Lymphocytes Percent Auto 11.2 % (20-40); Mean Corpuscular HGB Conc 30.5 g/dl (31.0-36.0); Mean Corpuscular Hemoglobin 28.2 pg (27.0-33.0); Mean Corpuscular Volume 92.3 fL (80.0-98.0); Mean Platelet Volume 10.9 fL (9.4-12.4); Monocytes Absolute Auto 0.6 X10*3/uL (0.1-1.2); Monocytes Percent Auto 15.6 % (2-11); Neutrophils Percent Auto 71.3 % (45-73); Platelet Count 106 X10*3/uL (160-400); White Blood Count 3.7 X10*3/uL (4.8-10.8)
[2021-02-10 05:53] LABS: Alanine Aminotransferase 15 U/L (0-40); Alkaline Phosphatase 58 U/L (39-117); Anion Gap 9 (12-20); Aspartate Amino Transferase 20 U/L (5-37); Bilirubin Total 0.6 mg/dL (0.0-1.0); Blood Urea Nitrogen 11 mg/dL (9-16); Calcium 7.5 mg/dL (8.4-10.2); Carbon Dioxide 30 mmol/L (22-29); Chloride 104 mmol/L (96-108); Creatinine Clr Calc Pharmacy 123.7; Estimated Glomerular Filt Rate > 60; Glucose Random 90 mg/dL (60-115); Magnesium 2.3 mg/dL (1.6-2.6); Phosphorus 1.1 mg/dL (2.7-4.5); Potassium 3.1 mmol/L (3.3-5.1); Sodium 140 mmol/L (135-145); Total Protein 5.1 g/dL (6.5-8.0)
[2021-02-10 06:02] LABS: MANUAL DIFF FLAG no
[2021-02-10] MEDS: fentaNYL citrate/NS 1,000 MCG/100 ML PLAST..BAG 12.5 MCG IVCONT (07:55)
[2021-02-10] MEDS: Folic Acid 1 MG in 0.9 % Sodium Chloride 50 ML 100.4 MG IV (08:00)
[2021-02-10] MEDS: Thiamine HCL 100 MG in 0.9 % Sodium Chloride 100 ML 202 MG IV (08:00)
[2021-02-10] MEDS: Chlorhexidine Gluc Oral Rinse 15 ML MOUTHWASH BUCCAL (08:00)
[2021-02-10] MEDS: Metoprolol Tartrate 5 MG/5 ML VIAL 2.5 MG IVPUSH (09:12)
--- NOTE | 2021-02-10 09:57 | MHC.CM.PN ---
Pt continues care in ICU : plans are to vent wean today: pt has not exhibited ETOH w/d signs: s/p emergent hernia repair: DC planning dependent on pt's ability to self manage: referred to VNA - may need STR but doubtful pt would accept: Unsure of VAX status and no HCP on file. CM to follow
--- NOTE | 2021-02-10 10:07 | P.PNGS_ITS ---
Subjective Subjective Date of Service: 02/10/21 <Iman Conway PA-C - Last Filed: 02/10/21 10:15> 02/10/21 <Parker Blunt MD - Last Filed: 02/10/21 13:14> Interval history: Remains vented, on sedation vacation. <Iman Conway PA-C - Last Filed: 02/10/21 10:15> Physical Exam Vital Signs: Vital Signs: Last Vital Signs Temp 99.5 F 02/10/21 10:00 Pulse 100 02/10/21 10:00 Resp 11 L 02/10/21 10:00 BP 119/75 02/10/21 10:00 Pulse Ox 95 02/10/21 10:00 Body Mass Index 41.5 <Iman Conway PA-C - Last Filed: 02/10/21 10:15> Const: General: no acute distress and other (opening eyes) <Iman Conway PA-C - Last Filed: 02/10/21 10:15> GI: Inspection: No distended and Yes incision (clean, no erythema) <Iman Conway PA-C - Last Filed: 02/10/21 10:15> Palpation (GI): Soft to palpation, no guarding and not rigid <Iman Conway PA-C - Last Filed: 02/10/21 10:15> Percussion: Yes normal to percussion <Iman Conway PA-C - Last Filed: 02/10/21 10:15> Rectal Exam - Male: Yes other (rectal tube in place, brown stool present) <Iman Conway PA-C - Last Filed: 02/10/21 10:15> Skin: General skin exam: no rashes or lesions noted <Iman Conway PA-C - Last Filed: 02/10/21 10:15> Extrem: Other: anasarca <Iman Conway PA-C - Last Filed: 02/10/21 10:15> Procedures Date of Service Date of Service: 02/10/21 <Iman Conway PA-C - Last Filed: 02/10/21 10:15> Progress Note: A&P Assessment and plan (1) Alcohol withdrawal: Status: Acute <Iman Conway PA-C - Last Filed: 02/10/21 10:15> (2) Incarcerated incisional hernia: Status: Acute <Iman Conway PA-C - Last Filed: 02/10/21 10:15> (3) Atrial fibrillation with RVR: Status: Acute <Iman Conway PA-C - Last Filed: 02/10/21 10:15> Assessment and Plan: ??60 year old male admitted with incisional hernias containing bowel with concern for strangulation, ETOH withdrawals now POD #2 s/p repair of incarcerated incisional hernias. Found to have incarcerated incisional hernia with multiple defects involving the upper midline abdomen.? Ovalle's hernia was identified but bowel remained viable without evidence of necrosis. Transferred to ICU post op and remains intubated for his active alcohol withdrawal. He remains hemodynamically stable and doing well. His abdomen is benign- soft, nondistended, incision clean. Stool in rectal tube. No acute surgical issues. Will continue to follow. Remainder of care per ICU team. Currently on sedation vacation- they will attempt to wean from the ventilator if he does not appear delirious. <Iman Conway PA-C - Last Filed: 02/10/21 10:15> ??60 year old male admitted with incisional hernias containing bowel with concern for strangulation, ETOH withdrawals now POD #2 s/p repair of incarcerated incisional hernias. Found to have incarcerated incisional hernia with multiple defects involving the upper midline abdomen.? Ovalle's hernia was identified but bowel remained viable without evidence of necrosis. Transferred to ICU post op and remains intubated for his active alcohol withdrawal. He remains hemodynamically stable and doing well. His abdomen is benign- soft, nondistended, incision clean. Stool in rectal tube. No acute surgical issues. Will continue to follow. Remainder of care per ICU team. Currently on sedation vacation- they will attempt to wean from the ventilator if he does not appear delirious. Agree with the above assessment and plan. Management per ICU team. <Parker Blunt MD - Last Filed: 02/10/21 13:14> Fall Risk Details Current Medications: Current Medications Chlorhexidine Gluconate (Chlorhexidine Gluc Oral Rinse 15 Ml Mouthwash) 15 ml BUCCAL TID [facility] Last Admin: 02/10/21 08:00 Dose: 15 ml Documented by: Heparin Sodium (Porcine) (Heparin Sodium,Porcine 5,000 Unit/Ml Vial) 5,000 unit SUBCUT Q8H [facility] Last Admin: 02/10/21 09:14 Dose: 5,000 unit Documented by: Diltiazem HCl 125 mg/ Sodium (Chloride) 125 mls @ 0 mls/hr IVCONT .Q0M [facility]; Protocol Last Titration: 02/09/21 13:58 Dose: 0 mg/hr, 0 mls/hr Documented by: Propofol (Diprivan) 1,000 mg in 100 mls @ 0 mls/hr IVCONT .Q0M [facility]; Protocol Last Titration: 02/10/21 09:20 Dose: 0 mcg/kg/min, 0 mls/hr Documented by: Fentanyl (Sublimaze/Ns) 1,000 mcg in 100 mls @ 0 mls/hr IVCONT .Q0M [facility]; Protocol Last Titration: 02/10/21 09:20 Dose: 0 mcg/hr, 0 mls/hr Documented by: Thiamine HCl 100 mg/ Sodium (Chloride) 101 mls @ 202 mls/hr IV DAILY [facility] Last Infusion: 02/10/21 08:56 Dose: Infused Documented by: Folic Acid 1 mg/ Sodium (Chloride) 50.2 mls @ 100.4 mls/hr IV DAILY [facility] Last Infusion: 02/10/21 08:56 Dose: Infused Documented by: Potassium Phosphate 15 mmol/ (Sodium Chloride) 505 mls @ 84.17 mls/hr IV Q6H [facility] Stop: 02/10/21 19:59 Last Admin: 02/10/21 07:59 Dose: 84.17 mls/hr Documented by: Metoprolol Tartrate (Metoprolol Tartrate 5 Mg/5 Ml Vial) 2.5 mg IVPUSH Q6H PRN PRN Reason: Heart Rate >100 Last Admin: 02/10/21 09:12 Dose: 2.5 mg Documented by: Naloxone HCl (Naloxone Hcl 0.4 Mg/Ml Vial) 0.2 mg IVPUSH Q2M PRN PRN Reason: Excessive sedation or RR < 8 Pantoprazole Sodium (Pantoprazole Sodium 40 Mg/10 Ml Vial) 40 mg IVPUSH DAILY@0630 [facility] Last Admin: 02/10/21 05:29 Dose: 40 mg Documented by: <Iman Conway PA-C - Last Filed: 02/10/21 10:15> Time Spent With Patient Time: Total time spent is greater than 50% in coordination of care (as documented) at patient's floor/unit and/or counseling patient: <Iman Conway PA-C - Last Filed: 02/10/21 10:15> Time with patient: less than 15 minutes <Iman Conway PA-C - Last Filed: 02/10/21 10:15> Quality Stroke Does the patient have a stroke diagnosis?: No <Iman Conway PA-C - Last Filed: 02/10/21 10:15> VTE Prior VTE?: No <Iman Conway PA-C - Last Filed: 02/10/21 10:15> VTE Risk Level:: Surgical - high <Iman Conway PA-C - Last Filed: 02/10/21 10:15> VTE Device Contraindication: N/A - Device Ordered <Iman Conway PA-C - Last Filed: 02/10/21 10:15> VTE Drug Contraindication: N/A - Med Ordered <Iman Conway PA-C - Last Filed: 02/10/21 10:15>
--- NOTE | 2021-02-10 10:09 | HO.POSTANES ---
Post Anesthesia Evaluation Post Anesthesia Evaluation Vital Signs: Vital Signs Temp Pulse Resp BP Pulse Ox 02/10/21 10:00 99.5 F 100 11 L 119/75 95 02/10/21 09:12 123 H 100/63 02/10/21 09:00 99.3 F 102 H 12 100/63 95 02/10/21 08:00 99.1 F 95 16 100/63 96 02/10/21 07:00 99.3 F 90 16 100/67 98 02/10/21 06:00 99.3 F 90 16 94/72 97 02/10/21 05:00 99.0 F 91 16 99/61 99 02/10/21 04:00 99.1 F 103 H 16 93/72 100 02/10/21 03:00 99.0 F 84 16 98/68 97 02/10/21 02:00 98.8 F 81 14 102/67 97 02/10/21 01:00 98.6 F 89 16 111/69 98 02/10/21 00:00 87 104/63 02/09/21 23:00 99.0 F 95 16 106/71 95 Anesthesia: General Endotracheal-GETA Mental Status: Sedated (Still on ventilator due to ETOH withdrawal) Pain Control: Satisfactory Nausea/Vomiting: None Hydration: Adequate Anesthesia-Related Issues: No Anes. Related Issues
--- NOTE | 2021-02-10 11:33 | MHC.CLN ---
Addendum entered by Sis Cadena RD 02/10/21 14:01: AGREE WITH PROVIDER'S ASSESSMENT BELOW Original Note: F/U THE PLAN IS TO EXTUBATE THE PT TODAY PER MD IF EXTUBATION IS UNSUCCESSFUL RECOMMEND TUBE FEEDING OF PROMOTE AT MAX GOAL RATE 35 ML/HOUR AND 30 ML PROSOURCE BID TO PROVIDE 960 KCALS (1820 KCALS WITH SEDATION), 82 GRAMS PROTEIN, 705 CC FREE WATER FROM FORMULA WITH 240 CC WATER FLUSHES Q 4 HOURS TO PROVIDE 2145 CC TOTAL FREE WATER MONITOR LYTES AND TOLERANCE IF TPN NEEDED SECONDARY TO PARTIAL SBO CONSULT RD
[2021-02-10] MEDS: Metoprolol Tartrate 12.5 MG HALFTAB PO (12:27)
[2021-02-10] MEDS: LORazepam 2 MG/ML VIAL 0.25 MG IVPUSH ×3 (12:28→23:50)
--- NOTE | 2021-02-10 15:28 | PM.CCPN ---
Subjective Subjective Date of Service: 02/10/21 Interval History: 60-year-old morbidly obese male who is status post gastric bypass surgery and as result had lost 200 lb initially regained 100 lb back and he is a chronic persistent atrial fibrillation on metoprolol and diltiazem hypertensive with the chronic diastolic CHF and a dyslipidemic and a chronic alcoholic who presented to the hospital with the hypogastric abdominal pain and had not been eating or drinking the no for 4 days prior except you continue to drink alcohol and had an alcohol level of 279 and less than 12 hours later was already beginning to withdraw in the emergency room He underwent a laparotomy they found that he had incarcerated transverse colon with small bowel obstruction this was relieved and all bowel was viable and so there was no resection of any sort and he was simply reclosed kept on the ventilator for a day and half and when he awoke he had good cognitive function and no signs of alcohol withdrawal so he is now extubated starting on clear liquids and out of bed no antibiotics because there was no evidence of infection and there are pending blood cultures which are negative to date Critical Care Time (minutes): 60 Physical Exam Vital Signs: Vital Signs: Last Vital Signs Temp 99.0 F 02/10/21 12:00 Pulse 99 02/10/21 15:00 Resp 12 02/10/21 15:00 BP 127/76 02/10/21 15:00 Pulse Ox 97 02/10/21 15:00 Body Mass Index 41.5 He did awaken briskly after stopping his fentanyl and propofol drips with good cognitive function and excellent ventilatory status and he was successfully extubated and doing very well Cardiac showed bedside echo with normal LV function if anything hyperdynamic and controlled atrial fib with good bilateral carotid upstrokes Lungs are clear Good bowel sounds soft abdomen no again a megaly Skin intact Objective Data Labs CBC & Chem 7: 02/10/21 05:14 02/10/21 05:14 Labs: Laboratory Results - last 24 hr 02/10/21 02/10/21 02/10/21 05:14 05:14 05:22 WBC 3.7 L RBC 3.37 L Hgb 9.5 L Hct 31.1 L MCV 92.3 MCH 28.2 MCHC 30.5 L RDW 19.9 H Plt Count 106 L MPV 10.9 Immature Gran % (Auto) 1.1 H Neut % (Auto) 71.3 Lymph % (Auto) 11.2 L [place] % (Auto) 15.6 H Eos % (Auto) 0.5 Baso % (Auto) 0.3 Lymph # (Auto) 0.4 L [place] # (Auto) 0.6 Eos # (Auto) 0.0 Baso # (Auto) 0.0 Abs Immat Gran (auto) 0.04 H Absolute Neuts (auto) 2.6 Absolute Nucleated RBC 0.000 Nucleated RBC % (auto) 0.0 VBG pH 7.44 H VBG pCO2 48 VBG pO2 70 VBG HCO3 33 H VBG O2 Saturation 93.0 VBG Base Excess 8.0 Sodium 140 Potassium 3.1 L Chloride 104 Carbon Dioxide 30 H Anion Gap 9 L BUN 11 Creatinine 0.90 Estim Creat Clear Calc 123.7 Estimated GFR > 60 Random Glucose 90 Calcium 7.5 L Phosphorus 1.1 L Magnesium 2.3 Total Bilirubin 0.6 AST 20 ALT 15 Alkaline Phosphatase 58 D Total Protein 5.1 L Albumin 3.0 L Microbiology Microbiology Results: Microbiology 02/08/21 11:19 Blood - Venous Blood Culture - Preliminary No growth after 48 hours. 02/08/21 11:14 Blood - Venous Blood Culture - Preliminary No growth after 48 hours. Quality Stroke Does the patient have a stroke diagnosis?: No VTE Prior VTE?: No VTE Risk Level:: Surgical - high VTE Device Contraindication: N/A - Device Ordered VTE Drug Contraindication: N/A - Med Ordered Progress Note: A&P Assessment and plan (1) Metabolic acidosis with increased anion gap and accumulation of organic acids: Status: Acute (2) Alcohol withdrawal: Status: Acute (3) Heart failure with left ventricular ejection fraction greater than or equal to 50 percent: Status: Acute (4) Pre-operative cardiovascular examination: Status: Acute (5) Incarcerated incisional hernia: Status: Acute (6) Atrial fibrillation with RVR: Status: Acute (7) Urinary retention: Status: Acute (8) Alcohol intoxication: Status: Acute (9) Ileus: Status: Acute (10) Incisional hernia: Status: Acute (11) Thoracic aortic aneurysm: Status: Acute (12) Chronic atrial fibrillation: Status: Acute (13) Toenail deformity: Status: Acute (14) Dyslipidemia: Status: Acute (15) Anemia: Status: Acute (16) Morbid obesity: Status: Acute (17) Insomnia: Status: Acute (18) Depression: Status: Acute Assessment and Plan: Doing beautifully now that he is extubated with no signs of alcohol withdrawal on going to put him on a prophylactic dose of Ativan and being that he was using Oxy code own at home and he is asking for pain medicine up probably start him on something in that category for pain control and diet can be advanced as tolerated
[2021-02-10] MEDS: HYDROmorphone HCl 0.5 MG/0.5 ML SYRINGE IVPUSH ×2 (16:03→20:47)
[2021-02-10] MEDS: Metoprolol Tartrate 25 MG TABLET PO (20:48)
[2021-02-11] MEDS: Heparin Sodium,Porcine 5,000 UNIT/ML VIAL 5000 UNIT SUBCUT ×3 (01:18→17:29)
[2021-02-11] MEDS: HYDROmorphone HCl 0.5 MG/0.5 ML SYRINGE IVPUSH ×5 (01:38→20:39)
[2021-02-11 04:00] VITALS: BP 160/69; PULSE 98; RESP 18; TEMP 36; O2SAT 98
[2021-02-11] MEDS: Pantoprazole Sodium 40 MG/10 ML VIAL IVPUSH (05:35)
[2021-02-11] MEDS: LORazepam 2 MG/ML VIAL 0.25 MG IVPUSH ×4 (05:35→23:30)
[2021-02-11 08:00] VITALS: BP 125/75; PULSE 111; RESP 20; TEMP 36.3; O2SAT 96
[2021-02-11] MEDS: Metoprolol Tartrate 25 MG TABLET PO ×2 (09:11→20:35)
[2021-02-11] MEDS: Venlafaxine HCl ER 150 MG CAP.ER.24H PO (09:11)
[2021-02-11] MEDS: Folic Acid 1 MG in 0.9 % Sodium Chloride 50 ML 100.4 MG IV (09:58)
[2021-02-11] MEDS: Thiamine HCL 100 MG in 0.9 % Sodium Chloride 100 ML 202 MG IV (09:59)
[2021-02-11 12:00] VITALS: BP 134/83; PULSE 107; RESP 18; TEMP 36.6; O2SAT 97
[2021-02-11 16:00] VITALS: BP 142/84; PULSE 99; RESP 16; TEMP 36.1; O2SAT 95
[2021-02-11 20:00] VITALS: BP 123/96; PULSE 108; RESP 14; TEMP 36.2; O2SAT 97
[2021-02-11 20:35] VITALS: BP 123/96; PULSE 108
[2021-02-12] VITALS (8 sets, daily range): BP systolic 132–170; BP diastolic 86–98; PULSE 92–118; RESP 18; TEMP 35.9–36.8; O2SAT 94–97
[2021-02-12] MEDS: Heparin Sodium,Porcine 5,000 UNIT/ML VIAL 5000 UNIT SUBCUT ×3 (01:27→17:07)
[2021-02-12] MEDS: HYDROmorphone HCl 0.5 MG/0.5 ML SYRINGE IVPUSH ×4 (01:27→21:11)
[2021-02-12] MEDS: LORazepam 2 MG/ML VIAL 0.25 MG IVPUSH ×4 (05:51→23:54)
[2021-02-12] MEDS: Folic Acid 1 MG in 0.9 % Sodium Chloride 50 ML 100.4 MG IV (10:00)
[2021-02-12] MEDS: Metoprolol Tartrate 25 MG TABLET PO (10:00)
[2021-02-12] MEDS: Venlafaxine HCl ER 150 MG CAP.ER.24H PO (10:00)
[2021-02-12] MEDS: Thiamine HCL 100 MG in 0.9 % Sodium Chloride 100 ML 202 MG IV (10:34)
--- NOTE | 2021-02-12 13:48 | PM.PNGS ---
Subjective Subjective Date of Service: 02/12/21 Interval history: pt awake and communicating but a little confused complaining of having diarrhea and with stool rectal bag Physical Exam Vital Signs: Vital Signs: Last Vital Signs Temp 97.4 F 02/12/21 12:00 Pulse 109 H 02/12/21 12:00 Resp 18 02/12/21 12:00 BP 152/86 H 02/12/21 12:00 Pulse Ox 95 02/12/21 12:00 Body Mass Index 41.5 Const: General: cooperative, comfortable and no acute distress Nutritional Appearance: obese Resp: Effort & Inspection: normal respiratory effort Auscultation: clear to auscultation bilaterally Cardio: Rate: regular rate Rhythm: abnormal rhythm GI: Other: abdo - obese, soft, incsion clean and intact - having good bowel sounds and loose stools : Other: hernandez in and looks like good urine output Skin: Other: healthy abdo incision Procedures Date of Service Date of Service: 02/11/21 Progress Note: A&P Assessment and plan (1) Incarcerated incisional hernia: Status: Acute Assessment and Plan: pt sp open repair of incarcerated but not strangulated ventral hernia -s/p gastric bypass surgery and lost nd gained lots of weight again - now etoh abuse and afib extubated yesterday from icu and doing well - hemodynamics etc plan to slow advance diet as tolerated and med team to help with other issues. ? his risk with afib as well at DT from etoh. Fall Risk Details Current Medications: Current Medications Heparin Sodium (Porcine) (Heparin Sodium,Porcine 5,000 Unit/Ml Vial) 5,000 unit SUBCUT Q8H [facility] Last Admin: 02/12/21 10:00 Dose: 5,000 unit Documented by: Hydromorphone HCl (Hydromorphone Hcl 0.5 Mg/0.5 Ml Syringe) 0.5 mg IVPUSH Q4H PRN; Protocol PRN Reason: Pain, Moderate (Pain Scale 4-6 Last Admin: 02/12/21 12:52 Dose: 0.5 mg Documented by: Folic Acid 1 mg/ Sodium (Chloride) 50.2 mls @ 100.4 mls/hr IV DAILY [facility] Last Infusion: 02/12/21 10:35 Dose: Infused Documented by: Thiamine HCl 100 mg/ Sodium (Chloride) 101 mls @ 202 mls/hr IV DAILY [facility] Last Infusion: 02/12/21 11:04 Dose: Infused Documented by: Lorazepam (Lorazepam 2 Mg/Ml Vial) 0.25 mg IVPUSH Q6H [facility] Last Admin: 02/12/21 11:34 Dose: 0.25 mg Documented by: Metoprolol Tartrate (Metoprolol Tartrate 5 Mg/5 Ml Vial) 2.5 mg IVPUSH Q6H PRN PRN Reason: Heart Rate >100 Last Admin: 02/10/21 09:12 Dose: 2.5 mg Documented by: Metoprolol Tartrate (Metoprolol Tartrate 25 Mg Tablet) 25 mg PO BID [facility]; Protocol Last Admin: 02/12/21 10:00 Dose: 25 mg Documented by: Venlafaxine HCl (Venlafaxine Hcl Er 150 Mg Cap.Er.24h) 150 mg PO DAILY [facility] Last Admin: 02/12/21 10:00 Dose: 150 mg Documented by: Time Spent With Patient Time: Total time spent is greater than 50% in coordination of care (as documented) at patient's floor/unit and/or counseling patient: Time with patient: 25 - 35 minutes Quality Stroke Does the patient have a stroke diagnosis?: No VTE Prior VTE?: No VTE Risk Level:: Surgical - high VTE Device Contraindication: N/A - Device Ordered VTE Drug Contraindication: N/A - Med Ordered
--- NOTE | 2021-02-12 14:07 | PM.PNGS ---
Subjective Subjective Date of Service: 02/12/21 Interval history: pt more awake and alert today, talking feeing well, less pain, moving all limbs Physical Exam Vital Signs: Vital Signs: Last Vital Signs Temp 97.4 F 02/12/21 12:00 Pulse 109 H 02/12/21 12:00 Resp 18 02/12/21 12:00 BP 152/86 H 02/12/21 12:00 Pulse Ox 95 02/12/21 12:00 Body Mass Index 41.5 Const: General: cooperative, alert and awake Nutritional Appearance: obese Orientation/consciousness: oriented to person, oriented to place and oriented to time Eyes: General: appearance normal, both eyes and all related structures Neck: Other: right side central line Resp: Effort & Inspection: normal respiratory effort Auscultation: clear to auscultation bilaterally tactile fremitus present: other (little decreased at bases) Cardio: Other: irregular GI: Other: soft nontender- incision ok active bowel sounds : Other: hernandez in Skin: Other: fine Neuro: General: oriented to person, oriented to place and oriented to time Cranial nerves: Yes CN's II-XII intact bilaterally Procedures Date of Service Date of Service: 02/12/21 Progress Note: A&P Assessment and plan (1) Incarcerated incisional hernia: Status: Acute Assessment and Plan: 60 year old male with etoh abuse hx and afib presented with incarcerated ventral wall abdo hernias and elevated lactate -? ischemci bowel so underwent urgery explor surgery but bowel was fine and viable and hernias reduced and fascia reapproximated.- postop was icu for DT and rapid afib then extubated and now day 2 on floor doing well neuro - iv pain meds as needed - will start some po resp - doing well but large man so needs to be oob ambulating in chair and incentive spirometer to be ordered cardiac - still afib, hr ok - on iv metoprolol =- med team to follow and adjust to po as needed gi -pt with diarrhea and rectal tube an stool collecting -? why will check cdif, bowel functioning so keep on clear liquid diet now gu- hernandez in good u/o - keep in for strict ins and outs after surgery fen- cont with clear liquids - on thiamine, folic acid etc for etoh abuse, needs good protein intake - nutrition to see and adjust as we advance his diet heme- not anticoagulated - on hep sq q 8 hrs - by tomorrow should be ok to resume therapeutic anticoagulation re afib - check his labs first though, needs to ambulate with PT - cont with compression stockings id - no ongoing issues wounds - abdominal binder is helpful for support but he is at risk for recurrent hernia Fall Risk Details Current Medications: Current Medications Heparin Sodium (Porcine) (Heparin Sodium,Porcine 5,000 Unit/Ml Vial) 5,000 unit SUBCUT Q8H [facility] Last Admin: 02/12/21 10:00 Dose: 5,000 unit Documented by: Hydromorphone HCl (Hydromorphone Hcl 0.5 Mg/0.5 Ml Syringe) 0.5 mg IVPUSH Q4H PRN; Protocol PRN Reason: Pain, Moderate (Pain Scale 4-6 Last Admin: 02/12/21 12:52 Dose: 0.5 mg Documented by: Folic Acid 1 mg/ Sodium (Chloride) 50.2 mls @ 100.4 mls/hr IV DAILY [facility] Last Infusion: 02/12/21 10:35 Dose: Infused Documented by: Thiamine HCl 100 mg/ Sodium (Chloride) 101 mls @ 202 mls/hr IV DAILY [facility] Last Infusion: 02/12/21 11:04 Dose: Infused Documented by: Lorazepam (Lorazepam 2 Mg/Ml Vial) 0.25 mg IVPUSH Q6H [facility] Last Admin: 02/12/21 11:34 Dose: 0.25 mg Documented by: Metoprolol Tartrate (Metoprolol Tartrate 5 Mg/5 Ml Vial) 2.5 mg IVPUSH Q6H PRN PRN Reason: Heart Rate >100 Last Admin: 02/10/21 09:12 Dose: 2.5 mg Documented by: Metoprolol Tartrate (Metoprolol Tartrate 25 Mg Tablet) 25 mg PO BID [facility]; Protocol Last Admin: 02/12/21 10:00 Dose: 25 mg Documented by: Venlafaxine HCl (Venlafaxine Hcl Er 150 Mg Cap.Er.24h) 150 mg PO DAILY [facility] Last Admin: 02/12/21 10:00 Dose: 150 mg Documented by: Time Spent With Patient Time: Total time spent is greater than 50% in coordination of care (as documented) at patient's floor/unit and/or counseling patient: Time with patient: Greater than 35 minutes Quality Stroke Does the patient have a stroke diagnosis?: No VTE Prior VTE?: No VTE Risk Level:: Surgical - high VTE Device Contraindication: N/A - Device Ordered VTE Drug Contraindication: N/A - Med Ordered
[2021-02-12 14:57] LABS: MANUAL DIFF FLAG NO
[2021-02-12 14:59] LABS: Basophils Percent Auto 0.3 % (0-2); Eosinophils Percent Auto 0.3 % (0-4); Hematocrit 36.8 % (42.0-52.0); Hemoglobin 11.4 g/dl (14.0-18.0); Imm Gran Abs Auto 0.29 X10*3/uL (0.00-0.03); Imm Gran Pct Auto 4.7 % (0.0-0.4); Lymphocytes Absolute Auto 0.5 X10*3/uL (1.2-4.9); Lymphocytes Percent Auto 8.5 % (20-40); Mean Corpuscular Hemoglobin 28.6 pg (27.0-33.0); Mean Corpuscular Volume 92.2 fL (80.0-98.0); Mean Platelet Volume 10.1 fL (9.4-12.4); Monocytes Absolute Auto 1.1 X10*3/uL (0.1-1.2); Monocytes Percent Auto 16.9 % (2-11); Neutrophils Absolute Auto 4.3 x10*3/uL (2.0-8.3); Neutrophils Percent Auto 69.3 % (45-73); Platelet Count 157 X10*3/uL (160-400); Red Blood Count 3.99 X10*6/uL (4.60-5.80); Red Cell Distribution Width 19.2 % (11.0-16.0); White Blood Count 6.2 X10*3/uL (4.8-10.8)
[2021-02-12 15:15] LABS: Anion Gap 10 (12-20); Blood Urea Nitrogen 13 mg/dL (9-16); Carbon Dioxide 30 mmol/L (22-29); Chloride 104 mmol/L (96-108); Creatinine Clr Calc Pharmacy 143.8; Estimated Glomerular Filt Rate > 60; Glucose Random 99 mg/dL (60-115); Magnesium 2.2 mg/dL (1.6-2.6); Phosphorus 1.8 mg/dL (2.7-4.5); Potassium 3.3 mmol/L (3.3-5.1); Sodium 141 mmol/L (135-145)
--- NOTE | 2021-02-12 16:32 | PM.IMCN ---
History of Present Illness Data of Consult Service Date: 02/12/21 Requesting physician: Ca Doe Primary Care Provider: Unknown Physician HPI Reason for consult: Medical co-morbidities This is a 60-year-old male with history of atrial fibrillation on Eliquis, morbid obesity, dyslipidemia, alcohol abuse who presented on 02/08 with chest pain, abdominal pain, nausea, vomiting. He was acutely intoxicated with alcohol, and noted to be in atrial fibrillation with rapid ventricular response. Workup in the emergency department was significant for strangulated hernia and he was admitted to the surgical service and taken to the OR for emergent repair of incarcerated hernia. He remained intubated postoperatively primarily for control of alcohol withdrawal in AFib with RVR. He was extubated on February 10 and downgraded to the medical floor. The hospitalists were asked to see him in consultation for assistance in managing comorbid medical conditions. He has ongoing abdominal pain around the surgical site. His main concern is his ongoing diarrhea. C diff was checked on February 08 return negative. He is currently not eating much because of his diarrhea. He denies any chest pain, palpitations, shortness of breath. Review of Systems Review of Systems: Yes all other systems are reviewed and are negative Constitutional: Constitutional: Denies chills and Denies fever(s) Cardiovascular: Cardiovascular: Denies chest pain, Denies palpitations and Denies dyspnea Respiratory: Respiratory: Denies cough and Denies dyspnea Gastrointestinal: Gastrointestinal: Reports diarrhea, Denies nausea and Denies vomiting Endocrine: Endocrine: Denies palpitations [facility] Medical History Alcohol dependence Alcohol intoxication Anemia Chronic atrial fibrillation Depression Dyslipidemia Heart failure with left ventricular ejection fraction greater than or equal to 50 percent History of alcohol abuse Insomnia Morbid obesity Obesity Pulmonary embolism Thoracic aortic aneurysm Toenail deformity Family History Mother No problems noted. Father No problems noted. Family/Other Substance use disorder Surgical History History of inguinal hernia repair Hx of gastric bypass S/P cholecystectomy Social History Household Members: Unknown / Unable to assess Household Members Other:: lives with mother Housing: Unknown / Unable to assess Unable to assess alcohol history related to: Unable to respond Alcohol intake: current Alcohol intake frequency: other Alcohol type: beer and wine Patient Tobacco Use Status: Never used Tobacco e-Cigarette/Vaping Use: Never Used Second Hand Smoke Exposure: No service: No Current occupational status: retired Meds Allergies Allergy/AdvReac Type Severity Reaction Status Date / Time No Known Allergies Allergy Verified 12/15/20 05:52 Active Medications: Current Medications Heparin Sodium (Porcine) (Heparin Sodium,Porcine 5,000 Unit/Ml Vial) 5,000 unit SUBCUT Q8H [facility] Last Admin: 02/12/21 10:00 Dose: 5,000 unit Documented by: Hydromorphone HCl (Hydromorphone Hcl 0.5 Mg/0.5 Ml Syringe) 0.5 mg IVPUSH Q4H PRN; Protocol PRN Reason: Pain, Moderate (Pain Scale 4-6 Last Admin: 02/12/21 12:52 Dose: 0.5 mg Documented by: Folic Acid 1 mg/ Sodium (Chloride) 50.2 mls @ 100.4 mls/hr IV DAILY [facility] Last Infusion: 02/12/21 10:35 Dose: Infused Documented by: Thiamine HCl 100 mg/ Sodium (Chloride) 101 mls @ 202 mls/hr IV DAILY [facility] Last Infusion: 02/12/21 11:04 Dose: Infused Documented by: Lorazepam (Lorazepam 2 Mg/Ml Vial) 0.25 mg IVPUSH Q6H [facility] Last Admin: 02/12/21 11:34 Dose: 0.25 mg Documented by: Metoprolol Tartrate (Metoprolol Tartrate 5 Mg/5 Ml Vial) 2.5 mg IVPUSH Q6H PRN PRN Reason: Heart Rate >100 Last Admin: 02/10/21 09:12 Dose: 2.5 mg Documented by: Metoprolol Tartrate (Metoprolol Tartrate 25 Mg Tablet) 25 mg PO BID [facility]; Protocol Last Admin: 02/12/21 10:00 Dose: 25 mg Documented by: Oxycodone HCl (Oxycodone Hcl Immed Release 5 Mg Tablet) 10 mg PO Q4H PRN PRN Reason: Pain, Severe (Pain Scale 7-10) Venlafaxine HCl (Venlafaxine Hcl Er 150 Mg Cap.Er.24h) 150 mg PO DAILY [facility] Last Admin: 02/12/21 10:00 Dose: 150 mg Documented by: Home Medications Medication Instructions Recorded Confirmed Last Taken Type venlafaxine 75 mg capsule,extended 75 mg PO DAILY 12/15/20 12/15/20 Unknown History release 24 hr zolpidem 10 mg tablet (Ambien) 10 mg PO BEDTIME 12/15/20 12/15/20 Unknown History Physical Exam Vital Signs and Narrative: Vital Signs: Last Vital Signs Temp 98.3 F 02/12/21 16:00 Pulse 118 H 02/12/21 16:00 Resp 18 02/12/21 16:00 BP 140/98 H 02/12/21 16:00 Pulse Ox 94 02/12/21 16:00 Body Mass Index 41.5 Const: General: comfortable, alert, awake and Physically active Nutritional Appearance: obese Orientation/consciousness: patient oriented x3 HENMT: Head: Yes normocephalic and Yes atraumatic Eyes: Sclerae: sclerae normal Pupils: Equal, round and reactive pupils present Neck: Other: Right IJ Resp: Effort & Inspection: normal respiratory effort and no respiratory distress Cardio: Rate: bradycardic Rhythm: abnormal rhythm irregularly irregular GI: Other: abdominal binder in place; rectal tube Palpation (GI): Soft to palpation : Other: hernandez in place Neuro: General: patient oriented x3 Cranial nerves: Yes CN's II-XII intact bilaterally, Yes Equal, round and reactive pupils present and Yes Bilaterally intact EOM present Extrem: Other: b/l leg edema Results Labs CBC and Chem 7: 02/12/21 14:45 02/12/21 14:45 Labs: Laboratory Results - last 24 hr 02/12/21 02/12/21 14:45 14:45 MCV 92.2 MCH 28.6 MCHC 31.0 RDW 19.2 H Plt Count 157 L D MPV 10.1 Immature Gran % (Auto) 4.7 H Neut % (Auto) 69.3 Lymph % (Auto) 8.5 L [place] % (Auto) 16.9 H Eos % (Auto) 0.3 Baso % (Auto) 0.3 Lymph # (Auto) 0.5 L [place] # (Auto) 1.1 Eos # (Auto) 0.0 Baso # (Auto) 0.0 Abs Immat Gran (auto) 0.29 H Absolute Neuts (auto) 4.3 Absolute Nucleated RBC 0.000 Nucleated RBC % (auto) 0.0 Anion Gap 10 L Estim Creat Clear Calc 143.8 Estimated GFR > 60 Random Glucose 99 Calcium 8.0 L D Phosphorus 1.8 L Magnesium 2.2 Prealbumin 10.0 L Assessment and Plan (1) Alcohol withdrawal: Status: Acute (2) Atrial fibrillation with RVR: Status: Acute This is a 60-year-old male with history of atrial fibrillation on Eliquis, morbid obesity, dyslipidemia, alcohol abuse who presented on 02/08 with chest pain, abdominal pain, nausea, vomiting. He was acutely intoxicated with alcohol, and noted to be in atrial fibrillation with rapid ventricular response. Workup in the emergency department was significant for strangulated hernia and he was admitted to the surgical service and taken to the OR for emergent repair of incarcerated hernia. He remained intubated postoperatively primarily for control of alcohol withdrawal in AFib with RVR. He was extubated on February 10 and downgraded to the medical floor. Chronic atrial fibrillation HR continues to be uncontrolled Currently receiving Lopressor 25 mg b.i.d, will increase to 50bid Eliquis on hold following surgery, plan to resume tomorrow per surgical team Alcohol withdrawal Has been receiving scheduled Ativan since extubation Does not appear to be in acute alcohol withdrawal at this time change ativan to prn care team eval diarrhea cdif negative mood continue effexor s/p repair of incarcerated incisional hernia management per surgical team morbid obesity bmi 41.6 s/p gastric bypass, has since gained back 100 lbs Med reconciliation never completed. Will discuss with pharmacy dvt ppx - heparin Thank you for allowing us to participate in the care of this patient. We will follow along with you attending - dr. mcdonnell
[2021-02-12] MEDS: Loperamide HCl 2 MG CAPSULE 4 MG PO (17:16)
--- NOTE | 2021-02-12 20:04 | MHC.CARE ---
CARE team consult received for alcohol use/withdrawal. Recovery team will be made aware of this pt in the morning.
[2021-02-12] MEDS: Metoprolol Tartrate 50 MG TABLET PO (21:07)
[2021-02-13] VITALS (8 sets, daily range): BP systolic 133–163; BP diastolic 90–104; PULSE 86–104; RESP 16–20; TEMP 35.7–36.4; O2SAT 95–97
[2021-02-13] MEDS: Heparin Sodium,Porcine 5,000 UNIT/ML VIAL 5000 UNIT SUBCUT ×2 (01:47→09:58)
[2021-02-13] MEDS: HYDROmorphone HCl 0.5 MG/0.5 ML SYRINGE IVPUSH ×4 (01:51→21:20)
[2021-02-13 07:57] LABS: Hematocrit 35.3 % (42.0-52.0); Mean Corpuscular HGB Conc 31.2 g/dl (31.0-36.0); Mean Corpuscular Hemoglobin 28.4 pg (27.0-33.0); Mean Corpuscular Volume 91.2 fL (80.0-98.0); Platelet Count 168 X10*3/uL (160-400); Red Blood Count 3.87 X10*6/uL (4.60-5.80); Red Cell Distribution Width 19.2 % (11.0-16.0); White Blood Count 5.2 X10*3/uL (4.8-10.8)
[2021-02-13 08:06] LABS: Anion Gap 10 (12-20); Blood Urea Nitrogen 13 mg/dL (9-16); Calcium 7.7 mg/dL (8.4-10.2); Carbon Dioxide 30 mmol/L (22-29); Chloride 105 mmol/L (96-108); Creatinine Clr Calc Pharmacy 151.7; Estimated Glomerular Filt Rate > 60; Glucose Random 91 mg/dL (60-115); Sodium 142 mmol/L (135-145)
[2021-02-13 08:21] LABS: Atypical Lymph Absolute Manual 0.1 x10*3/uL; Atypical Lymphs Percent Manual 1 % (0-6); Band Neutrophils Percent 2 % (3-5); Lymphocytes Absolute Manual 0.4 X10*3/uL (1.2-4.9); Lymphocytes Percent Manual 7 % (20-40); Metamyelocytes Absolute 0.1 X10*3/uL; Metamyelocytes Percent 2 %; Monocytes Absolute Manual 0.6 X10*3/uL (0.1-1.2); Monocytes Percent Manual 11 % (2-11); Neutrophils Absolute Manual 4.1 X10*3/uL (2.0-8.3); Neutrophils Percent Manual 77 % (45-73)
[2021-02-13 08:22] LABS: Hypochromasia 1+ (5-14) /OIF; Ovalocytes 1+ (5-14) /OIF; Platelet Estimate NORMAL (NORMAL); Platelet Morphology Comment NORMAL; RBC Morphology NOTED
--- NOTE | 2021-02-13 08:36 | PM.PNGS ---
Subjective Subjective Date of Service: 02/13/21 Interval history: Patient reports some incisional pain but otherwise feeling improved. He reports drinking liquids and Jell-O. Not interested in much more. Feels too weak to get out of bed today over like to try. Physical Exam Vital Signs: Vital Signs: Last Vital Signs Temp 97.2 F 02/13/21 08:00 Pulse 96 02/13/21 08:00 Resp 20 02/13/21 08:00 BP 133/97 H 02/13/21 08:00 Pulse Ox 95 02/13/21 08:00 Body Mass Index 41.5 Const: General: cooperative and no acute distress Nutritional Appearance: obese Orientation/consciousness: patient oriented x3 Resp: Other: Breathing comfortably on room air, no respiratory distress GI: Other: Soft, nondistended, incision is clean, dry, intact without redness or discharge. Auscultation: normal bowel sounds Skin: Other: Warm, dry, no rash, normal color Neuro: General: patient oriented x3 Extrem: Other: Mild peripheral edema Procedures Date of Service Date of Service: 02/13/21 Progress Note: A&P Assessment and plan (1) Alcohol withdrawal: Status: Acute (2) Incarcerated incisional hernia: Status: Acute (3) Atrial fibrillation with RVR: Status: Acute Assessment and Plan: 60-year-old male patient presenting with an incarcerated and possibly strangulated incisional hernia in the abdomen following open gastric bypass surgery. He subsequently was taken to the OR for exploration and repair of the incisional hernias. No necrotic bowel was identified. The incisional hernia was repaired primarily. He was kept intubated for several days postoperatively due to alcohol withdrawal. He is now on the 3rd floor and is awake and oriented. Abdominal exam is improved with his abdominal incision clean, dry, and intact. He will continue with physical therapy and occupation therapy today. He will probably require short-term rehab upon discharge. Will keep on clear liquids for now. Fall Risk Details Current Medications: Current Medications Folic Acid (Folic Acid 1 Mg Tablet) 1 mg PO DAILY [facility] Heparin Sodium (Porcine) (Heparin Sodium,Porcine 5,000 Unit/Ml Vial) 5,000 unit SUBCUT Q8H [facility] Last Admin: 02/13/21 01:47 Dose: 5,000 unit Documented by: Hydromorphone HCl (Hydromorphone Hcl 0.5 Mg/0.5 Ml Syringe) 0.5 mg IVPUSH Q4H PRN; Protocol PRN Reason: Pain, Moderate (Pain Scale 4-6 Last Admin: 02/13/21 06:15 Dose: 0.5 mg Documented by: Lorazepam (Lorazepam 2 Mg/Ml Vial) 0.25 mg IVPUSH Q6H PRN PRN Reason: Alcohol Withdrawal Last Admin: 02/12/21 23:54 Dose: 0.25 mg Documented by: Metoprolol Tartrate (Metoprolol Tartrate 50 Mg Tablet) 50 mg PO BID [facility]; Protocol Last Admin: 02/12/21 21:07 Dose: 50 mg Documented by: Oxycodone HCl (Oxycodone Hcl Immed Release 5 Mg Tablet) 10 mg PO Q4H PRN PRN Reason: Pain, Severe (Pain Scale 7-10) Thiamine HCl (Thiamine Hcl 100 Mg Tablet) 100 mg PO DAILY [facility] Venlafaxine HCl (Venlafaxine Hcl Er 150 Mg Cap.Er.24h) 150 mg PO DAILY [facility] Last Admin: 02/12/21 10:00 Dose: 150 mg Documented by: Time Spent With Patient Time: Total time spent is greater than 50% in coordination of care (as documented) at patient's floor/unit and/or counseling patient: Time with patient: 15 - 24 minutes Quality Stroke Does the patient have a stroke diagnosis?: No VTE Prior VTE?: No VTE Risk Level:: Surgical - high VTE Device Contraindication: N/A - Device Ordered VTE Drug Contraindication: N/A - Med Ordered
--- NOTE | 2021-02-13 09:13 | PHA.MEDREC ---
Pharmacy Consult ? Medication Reconciliation Pharmacy has completed the medication reconciliation. Patient reports that he goes to [facility]. He was able to confirm medication previously on his medication list. I contacted [facility] to verify that the medications were being picked. All medications are delivered to the patient. Pharmacist report that Jesse was DC'd by the doctor on 02/09/2021. There were also additional medication not on the medical record that the patient should be taking; Campral and Viibyrd. Kerry Farris, NoraD
[2021-02-13] MEDS: Venlafaxine HCl ER 150 MG CAP.ER.24H PO (09:58)
[2021-02-13] MEDS: Metoprolol Tartrate 50 MG TABLET PO ×2 (09:58→21:20)
[2021-02-13] MEDS: oxyCODONE HCl Immed Release 5 MG TABLET 10 MG PO (09:58)
[2021-02-13] MEDS: Thiamine HCL 100 MG TABLET PO (09:58)
[2021-02-13] MEDS: Nystatin Oral Susp 500,000 UNIT/5 ML ORAL.SUSP 500000 UNIT PO ×2 (09:58→21:20)
[2021-02-13] MEDS: Folic Acid 1 MG TABLET PO (09:58)
--- NOTE | 2021-02-13 10:54 | HO.PM.IMPN ---
Subjective Subjective Date of Service: 02/13/21 <IRAM Rendon - Last Filed: 02/13/21 11:07> 03/04/21 <Harvey Oro MD - Last Filed: 03/04/21 16:23> Interval History: seen and examined this morning follow up medical consultation some pain at surgical site; ongoing diarrhea not eating much <IRAM Rendon - Last Filed: 02/13/21 11:07> Review of Systems Review of Systems: Yes all other systems are reviewed and are negative <IRAM Rendon - Last Filed: 02/13/21 11:07> Constitutional Constitutional: Denies chills and Denies fever(s) <IRAM Rendon - Last Filed: 02/13/21 11:07> Cardiovascular Cardiovascular: Denies chest pain <IRAM Rendon - Last Filed: 02/13/21 11:07> Respiratory Respiratory: Denies cough <IRAM Rendon - Last Filed: 02/13/21 11:07> Gastrointestinal Gastrointestinal: Reports diarrhea <IRAM Rendon - Last Filed: 02/13/21 11:07> Physical Exam Vital Signs: Vital Signs: Last Vital Signs Temp 97.2 F 02/13/21 08:00 Pulse 96 02/13/21 10:43 Resp 20 02/13/21 08:00 BP 133/97 H 02/13/21 10:43 Pulse Ox 95 02/13/21 10:43 Body Mass Index 41.5 <IRAM Rendon - Last Filed: 02/13/21 11:07> Const: General: comfortable, alert, awake and Physically active <IRAM Rendon - Last Filed: 02/13/21 11:07> Nutritional Appearance: obese <IRAM Rendon - Last Filed: 02/13/21 11:07> Orientation/consciousness: patient oriented x3 <IRAM Rendon - Last Filed: 02/13/21 11:07> HENMT: Head: Yes normocephalic and Yes atraumatic <IRAM Rendon - Last Filed: 02/13/21 11:07> Eyes: Sclerae: sclerae normal <IRAM Rendon - Last Filed: 02/13/21 11:07> Pupils: Equal, round and reactive pupils present <IRAM Rendon - Last Filed: 02/13/21 11:07> Neck: Other: Right IJ <IRAM Rendon - Last Filed: 02/13/21 11:07> Resp: Effort & Inspection: normal respiratory effort and no respiratory distress <IRAM Rendon - Last Filed: 02/13/21 11:07> Cardio: Rate: regular rate <IRAM Rendon - Last Filed: 02/13/21 11:07> Rhythm: abnormal rhythm irregularly irregular <IRAM Rendon - Last Filed: 02/13/21 11:07> GI: Other: abdominal binder in place; rectal tube <IRAM Rendon - Last Filed: 02/13/21 11:07> Palpation (GI): Soft to palpation <IRAM Rendon - Last Filed: 02/13/21 11:07> : Other: hernandez in place <IRAM Rendon - Last Filed: 02/13/21 11:07> Neuro: General: patient oriented x3 <IRAM Rendon - Last Filed: 02/13/21 11:07> Cranial nerves: Yes CN's II-XII intact bilaterally, Yes Equal, round and reactive pupils present and Yes Bilaterally intact EOM present <IRAM Rendon - Last Filed: 02/13/21 11:07> Extrem: Other: b/l leg edema <IRAM Rendon - Last Filed: 02/13/21 11:07> Objective Data Active Medications Folic Acid (Folic Acid 1 Mg Tablet) 1 mg PO DAILY [facility] Last Admin: 02/13/21 09:58 Dose: 1 mg Documented by: LYNN Heparin Sodium (Porcine) (Heparin Sodium,Porcine 5,000 Unit/Ml Vial) 5,000 unit SUBCUT Q8H [facility] Last Admin: 02/13/21 09:58 Dose: 5,000 unit Documented by: LYNN Hydromorphone HCl (Hydromorphone Hcl 0.5 Mg/0.5 Ml Syringe) 0.5 mg IVPUSH Q4H PRN; Protocol PRN Reason: Pain, Moderate (Pain Scale 4-6 Last Admin: 02/13/21 06:15 Dose: 0.5 mg Documented by: CLAYTON Lorazepam (Lorazepam 2 Mg/Ml Vial) 0.25 mg IVPUSH Q6H PRN PRN Reason: Alcohol Withdrawal Last Admin: 02/12/21 23:54 Dose: 0.25 mg Documented by: CLAYTON Metoprolol Tartrate (Metoprolol Tartrate 50 Mg Tablet) 50 mg PO BID [facility]; Protocol Last Admin: 02/13/21 09:58 Dose: 50 mg Documented by: LYNN Nystatin (Nystatin Oral Susp 500,000 Unit/5 Ml Oral.Susp) 500,000 unit PO QID [facility]; Protocol Stop: 02/23/21 09:44 Last Admin: 02/13/21 09:58 Dose: 500,000 unit Documented by: LYNN Oxycodone HCl (Oxycodone Hcl Immed Release 5 Mg Tablet) 10 mg PO Q4H PRN PRN Reason: Pain, Severe (Pain Scale 7-10) Last Admin: 02/13/21 09:58 Dose: 10 mg Documented by: LYNN Pharmacy Consult (Consult Rx Perform Med Rec) 1 each MISCELLANE ONCE PRN PRN Reason: Consult order Thiamine HCl (Thiamine Hcl 100 Mg Tablet) 100 mg PO DAILY [facility] Last Admin: 02/13/21 09:58 Dose: 100 mg Documented by: LYNN Venlafaxine HCl (Venlafaxine Hcl Er 150 Mg Cap.Er.24h) 150 mg PO DAILY [facility] Last Admin: 02/13/21 09:58 Dose: 150 mg Documented by: LYNN <IRAM Rendon - Last Filed: 02/13/21 11:07> Labs CBC & Chem 7: : 02/16/21 05:52 02/16/21 05:52 <IRAM Rendon - Last Filed: 02/13/21 11:07> Labs: Laboratory Results - last 24 hr 02/12/21 02/12/21 02/13/21 14:45 14:45 07:43 MCV 92.2 91.2 MCH 28.6 28.4 MCHC 31.0 31.2 RDW 19.2 H 19.2 H Plt Count 157 L D 168 MPV 10.1 10.0 Immature Gran % (Auto) 4.7 H Cancelled Neut % (Auto) 69.3 Cancelled Lymph % (Auto) 8.5 L Cancelled [place] % (Auto) 16.9 H Cancelled Eos % (Auto) 0.3 Cancelled Baso % (Auto) 0.3 Cancelled Lymph # (Auto) 0.5 L Cancelled [place] # (Auto) 1.1 Cancelled Eos # (Auto) 0.0 Cancelled Baso # (Auto) 0.0 Cancelled Abs Immat Gran (auto) 0.29 H Cancelled Absolute Neuts (auto) 4.3 Cancelled Absolute Nucleated RBC 0.000 0.000 Nucleated RBC % (auto) 0.0 0.0 Neutrophils % (Manual) 77 H Band Neutrophils % 2 L Lymphocytes % (Manual) 7 L Atypical Lymphs % (Man) 1 Monocytes % (Manual) 11 Metamyelocytes % 2 Abs Neuts (Manual) 4.1 Lymphocytes # (Manual) 0.4 L Atyp Lymphs # (Manual) 0.1 Monocytes # (Manual) 0.6 Metamyelocytes # 0.1 Platelet Estimate NORMAL Plt Morphology Comment NORMAL RBC Morphology NOTED Hypochromasia 1+ (5-14) Ovalocytes 1+ (5-14) Anion Gap 10 L Estim Creat Clear Calc 143.8 Estimated GFR > 60 Random Glucose 99 Calcium 8.0 L D Phosphorus 1.8 L Magnesium 2.2 Prealbumin 10.0 L 02/13/21 07:43 MCV MCH MCHC RDW Plt Count MPV Immature Gran % (Auto) Neut % (Auto) Lymph % (Auto) [place] % (Auto) Eos % (Auto) Baso % (Auto) Lymph # (Auto) [place] # (Auto) Eos # (Auto) Baso # (Auto) Abs Immat Gran (auto) Absolute Neuts (auto) Absolute Nucleated RBC Nucleated RBC % (auto) Neutrophils % (Manual) Band Neutrophils % Lymphocytes % (Manual) Atypical Lymphs % (Man) Monocytes % (Manual) Metamyelocytes % Abs Neuts (Manual) Lymphocytes # (Manual) Atyp Lymphs # (Manual) Monocytes # (Manual) Metamyelocytes # Platelet Estimate Plt Morphology Comment RBC Morphology Hypochromasia Ovalocytes Anion Gap 10 L Estim Creat Clear Calc 151.7 Estimated GFR > 60 Random Glucose 91 Calcium 7.7 L Phosphorus Magnesium Prealbumin <IRAM Rendon - Last Filed: 02/13/21 11:07> Assessment and Plan (1) Alcohol withdrawal: (2) Atrial fibrillation with RVR: (3) Oral thrush: Assessment and Plan: This is a 60-year-old male with history of atrial fibrillation on Eliquis, morbid obesity, dyslipidemia, alcohol abuse who presented on 02/08 with chest pain, abdominal pain, nausea, vomiting. He was acutely intoxicated with alcohol, and noted to be in atrial fibrillation with rapid ventricular response. Workup in the emergency department was significant for strangulated hernia and he was admitted to the surgical service and taken to the OR for emergent repair of incarcerated hernia. He remained intubated postoperatively primarily for control of alcohol withdrawal in AFib with RVR. He was extubated on February 10 and downgraded to the medical floor. Chronic atrial fibrillation HR improving Continue lopressor 50 bid, may need further med titration discussed with surgery, will resume Eliquis oral thrush nystatin [id number] Alcohol withdrawal Has been receiving scheduled Ativan since extubation Does not appear to be in acute alcohol withdrawal at this time change ativan to prn care team eval diarrhea cdif negative prn imodium mood continue effexor s/p repair of incarcerated incisional hernia management per surgical team morbid obesity bmi 41.6 s/p gastric bypass, has since gained back 100 lbs dvt ppx - eliquis attending - dr. oro <IRAM Rendon - Last Filed: 02/13/21 11:07> This is a 60-year-old male with history of atrial fibrillation on Eliquis, morbid obesity, dyslipidemia, alcohol abuse who presented on 02/08 with chest pain, abdominal pain, nausea, vomiting. He was acutely intoxicated with alcohol, and noted to be in atrial fibrillation with rapid ventricular response. Workup in the emergency department was significant for strangulated hernia and he was admitted to the surgical service and taken to the OR for emergent repair of incarcerated hernia. He remained intubated postoperatively primarily for control of alcohol withdrawal in AFib with RVR. He was extubated on February 10 and downgraded to the medical floor. Chronic atrial fibrillation HR improving Continue lopressor 50 bid, may need further med titration discussed with surgery, will resume Eliquis oral thrush nystatin [id number] Alcohol withdrawal Has been receiving scheduled Ativan since extubation Does not appear to be in acute alcohol withdrawal at this time change ativan to prn care team eval diarrhea cdif negative prn imodium mood continue effexor s/p repair of incarcerated incisional hernia management per surgical team morbid obesity bmi 41.6 s/p gastric bypass, has since gained back 100 lbs dvt ppx - eliquis attending - dr. oro I saw patient and discussed finding with midlevel provider and i agree with the above <Harveyjeanette Oro MD - Last Filed: 03/04/21 16:23> Quality Stroke Does the patient have a stroke diagnosis?: No <IRAM Rendon - Last Filed: 02/13/21 11:07> VTE Prior VTE?: No <IRAM Rendon - Last Filed: 02/13/21 11:07> VTE Risk Level:: Surgical - high <IRAM Rendon - Last Filed: 02/13/21 11:07> VTE Device Contraindication: N/A - Device Ordered <IRAM Rendon - Last Filed: 02/13/21 11:07> VTE Drug Contraindication: N/A - Med Ordered <IRAM Rendon - Last Filed: 02/13/21 11:07>
[2021-02-13] MEDS: Apixaban 5 MG TABLET PO ×2 (11:54→21:20)
[2021-02-13] MEDS: Potassium Chloride Packet 20 MEQ PACKET 60 MEQ PO (11:54)
[2021-02-13] MEDS: LORazepam 2 MG/ML VIAL 0.25 MG IVPUSH ×2 (12:33→21:29)
--- NOTE | 2021-02-13 13:05 | MHC.RECOVRN ---
60 year old male presented to [facility] ED on 02/08 via EMS due to chest pain onset 02/07, has not been taking meds for a couple of days per bandmill operator. Upon evaluation, pt admitted for management of atrial fibrillation with RVR, urinary retention, alcohol intoxication, ileus, and incisional hernia. Pt underwent surgery, postoperative findings were incarcerated hernia but no strangulation. Pt brought to ICU and remained intubated due to comorbidities which included persistently rapid atrial fibrillation along with progressive alcohol withdrawal. Pt extubated on 02/10 and downgraded to the medical floor.? T/w met with pt in 360 after consult placed to CARE Team for alcohol use. Pt reports drinking 1 liter of wine daily x 4-5 days, last drink prior to admission. Prior to recent use, pt had been in recovery x 3 months. Pts first drink at age 9 and has been drinking on and off since then. Pts longest time in recovery was 5 years, 5 years ago. Pt attributes this to AA and the associated camaraderie.? Pt reports hx AUD treatment including ATS a bunch, , CSS, [facility] x 1 year in 2019, as well as medications for AUD. Pt has trialed campral and naltrexone, however, states I don't think medications are going to help. If I'm going to not drink, I'm going to do it without medication. ? Pts current supports include kids, mother, and ex-. 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 Pt interested in returning to , is aware of local in person meetings as pt prefers in person.? Pt provided with information regarding other resources and supports, declines referrals at this time.? Also provided pt with t/w card if questions arise or if pt would like to discuss other resources. Discussed with Aury Hernandez APRN.? T/w available if needed.??
--- NOTE | 2021-02-13 13:12 | MHC.CM.PN ---
NURSE WAREHOUSE SORTER NOTE ELECTRONIC MEDICAL RECORD REVIEWED ALONG WITH CASE DISCUSSED ON MULTIPLE DISCIPLINARY ROUNDS. S/P INCARCERATED HERNIA S/P REP[AIRE OF INCARCERATED HERNIA WITH MESH, CONTINUES WITH IV HYDROMORPHINE AND PO OANALGEICS , REMAISN O LIQUID DIET DISCHARGE PLAN HOME WITH NEW [facility] FOR NURSING
--- NOTE | 2021-02-13 13:36 | MHC.CLN ---
F/U PATIENT EXTUBATED 02/10. ON CLEAR LIQUID DIET. ADD ENSURE CLEAR TID TO PROVIDE ADDITIONAL 720 KCAL, 24 G PROTEIN.
[2021-02-14] VITALS (8 sets, daily range): BP systolic 111–146; BP diastolic 75–96; PULSE 85–99; RESP 16–18; TEMP 36–37; O2SAT 94–97
[2021-02-14] MEDS: HYDROmorphone HCl 0.5 MG/0.5 ML SYRINGE IVPUSH ×3 (02:21→11:12)
[2021-02-14 06:32] LABS: Anion Gap 9 (12-20); Blood Urea Nitrogen 14 mg/dL (9-16); Calcium 7.9 mg/dL (8.4-10.2); Carbon Dioxide 31 mmol/L (22-29); Chloride 107 mmol/L (96-108); Estimated Glomerular Filt Rate > 60; Glucose Random 88 mg/dL (60-115); Potassium 3.1 mmol/L (3.3-5.1); Sodium 144 mmol/L (135-145)
[2021-02-14] MEDS: LORazepam 2 MG/ML VIAL 0.25 MG IVPUSH ×2 (06:42→12:59)
--- NOTE | 2021-02-14 08:19 | PM.PNGS ---
Subjective Subjective Date of Service: 02/14/21 Interval history: Patient out of bed sitting up in chair. Reports he did not tolerate liquid diet yesterday, wants to remain on liquids. Complaining of wounds stool still. Denies significant abdominal pain, well controlled with current medications. Physical Exam Vital Signs: Vital Signs: Last Vital Signs Temp 97.4 F 02/14/21 07:40 Pulse 92 02/14/21 07:40 Resp 16 02/14/21 07:40 BP 134/96 H 02/14/21 07:40 Pulse Ox 96 02/14/21 07:40 Body Mass Index 41.5 Const: General: cooperative and no acute distress Nutritional Appearance: obese Orientation/consciousness: patient oriented x3 Limitations: physical limitations HENMT: Head: Yes normocephalic and Yes atraumatic Ears: hearing grossly normal bilaterally Resp: Effort & Inspection: normal respiratory effort and no stridor GI: Inspection: Yes normal to inspection, Yes incision and Yes Abdominal panniculus present Palpation (GI): Soft to palpation, nontender and no guarding Percussion: Yes normal to percussion Auscultation: normal bowel sounds Skin: Other: Warm, dry, no rash Neuro: General: patient oriented x3 Extrem: Other: pedal edema Procedures Date of Service Date of Service: 02/14/21 Progress Note: A&P Assessment and plan (1) Incarcerated incisional hernia: Status: Acute (2) Alcohol withdrawal: Status: Acute (3) Atrial fibrillation with RVR: Status: Acute Assessment and Plan: 60-year-old male patient presenting with an incarcerated incisional hernia, alcohol intoxication, AFib with rapid ventricular response, status post repair of incisional hernia without mesh. Patient with a prolonged intubation due to a home withdrawal. Patient is making slow progress, taking a liquid diet. Diarrhea is still a problem. Rectal tube and hernandez in place. PT/OT underway; recommend STR. Discussed with patient and he agrees. Fall Risk Details Current Medications: Current Medications Apixaban (Apixaban 5 Mg Tablet) 5 mg PO BID [facility] Last Admin: 02/13/21 21:20 Dose: 5 mg Documented by: Folic Acid (Folic Acid 1 Mg Tablet) 1 mg PO DAILY [facility] Last Admin: 02/13/21 09:58 Dose: 1 mg Documented by: Hydromorphone HCl (Hydromorphone Hcl 0.5 Mg/0.5 Ml Syringe) 0.5 mg IVPUSH Q4H PRN; Protocol PRN Reason: Pain, Moderate (Pain Scale 4-6 Last Admin: 02/14/21 06:42 Dose: 0.5 mg Documented by: Loperamide HCl (Loperamide Hcl 2 Mg Capsule) 4 mg PO Q6H PRN PRN Reason: Diarrhea Lorazepam (Lorazepam 2 Mg/Ml Vial) 0.25 mg IVPUSH Q6H PRN PRN Reason: Alcohol Withdrawal Last Admin: 02/14/21 06:42 Dose: 0.25 mg Documented by: Metoprolol Tartrate (Metoprolol Tartrate 50 Mg Tablet) 50 mg PO BID [facility]; Protocol Last Admin: 02/13/21 21:20 Dose: 50 mg Documented by: Nystatin (Nystatin Oral Susp 500,000 Unit/5 Ml Oral.Susp) 500,000 unit PO QID [facility]; Protocol Stop: 02/23/21 09:44 Last Admin: 02/13/21 21:20 Dose: 500,000 unit Documented by: Oxycodone HCl (Oxycodone Hcl Immed Release 5 Mg Tablet) 10 mg PO Q4H PRN PRN Reason: Pain, Severe (Pain Scale 7-10) Last Admin: 02/13/21 09:58 Dose: 10 mg Documented by: Pharmacy Consult (Consult Rx Perform Med Rec) 1 each MISCELLANE ONCE PRN PRN Reason: Consult order Thiamine HCl (Thiamine Hcl 100 Mg Tablet) 100 mg PO DAILY [facility] Last Admin: 02/13/21 09:58 Dose: 100 mg Documented by: Venlafaxine HCl (Venlafaxine Hcl Er 150 Mg Cap.Er.24h) 150 mg PO DAILY [facility] Last Admin: 02/13/21 09:58 Dose: 150 mg Documented by: Time Spent With Patient Time: Total time spent is greater than 50% in coordination of care (as documented) at patient's floor/unit and/or counseling patient: Time with patient: 15 - 24 minutes Quality Stroke Does the patient have a stroke diagnosis?: No VTE Prior VTE?: No VTE Risk Level:: Surgical - high VTE Device Contraindication: N/A - Device Ordered VTE Drug Contraindication: N/A - Med Ordered
--- NOTE | 2021-02-14 09:14 | HO.PM.IMPN ---
Subjective Subjective Date of Service: 02/14/21 Interval History: seen and examined this morning follow up consult; afib, alcohol withdrawal having diarrhea, some abdominal pain at incision site Review of Systems Review of Systems: Yes all other systems are reviewed and are negative Constitutional Constitutional: Denies chills and Denies fever(s) Cardiovascular Cardiovascular: Denies chest pain Respiratory Respiratory: Denies cough Physical Exam Vital Signs: Vital Signs: Last Vital Signs Temp 97.4 F 02/14/21 07:40 Pulse 92 02/14/21 08:19 Resp 16 02/14/21 07:40 BP 134/96 H 02/14/21 08:19 Pulse Ox 96 02/14/21 08:19 Body Mass Index 41.5 Const: General: comfortable, alert, awake and Physically active Nutritional Appearance: obese Orientation/consciousness: patient oriented x3 HENMT: Head: Yes normocephalic and Yes atraumatic Eyes: Sclerae: sclerae normal Pupils: Equal, round and reactive pupils present Neck: Other: Right IJ Resp: Effort & Inspection: normal respiratory effort and no respiratory distress Cardio: Rate: regular rate Rhythm: abnormal rhythm irregularly irregular GI: Other: rectal tube Palpation (GI): Soft to palpation : Other: hernandez in place Neuro: General: patient oriented x3 Cranial nerves: Yes CN's II-XII intact bilaterally, Yes Equal, round and reactive pupils present and Yes Bilaterally intact EOM present Objective Data Active Medications Apixaban (Apixaban 5 Mg Tablet) 5 mg PO BID [facility] Last Admin: 02/13/21 21:20 Dose: 5 mg Documented by: CLAYTON Folic Acid (Folic Acid 1 Mg Tablet) 1 mg PO DAILY [facility] Last Admin: 02/13/21 09:58 Dose: 1 mg Documented by: LYNN Hydromorphone HCl (Hydromorphone Hcl 0.5 Mg/0.5 Ml Syringe) 0.5 mg IVPUSH Q4H PRN; Protocol PRN Reason: Pain, Moderate (Pain Scale 4-6 Last Admin: 02/14/21 06:42 Dose: 0.5 mg Documented by: CLAYTON Loperamide HCl (Loperamide Hcl 2 Mg Capsule) 4 mg PO Q6H PRN PRN Reason: Diarrhea Lorazepam (Lorazepam 2 Mg/Ml Vial) 0.25 mg IVPUSH Q6H PRN PRN Reason: Alcohol Withdrawal Last Admin: 02/14/21 06:42 Dose: 0.25 mg Documented by: CLAYTON Metoprolol Tartrate (Metoprolol Tartrate 50 Mg Tablet) 50 mg PO BID [facility]; Protocol Last Admin: 02/13/21 21:20 Dose: 50 mg Documented by: CLAYTON Nystatin (Nystatin Oral Susp 500,000 Unit/5 Ml Oral.Susp) 500,000 unit PO QID [facility]; Protocol Stop: 02/23/21 09:44 Last Admin: 02/13/21 21:20 Dose: 500,000 unit Documented by: CLAYTON Oxycodone HCl (Oxycodone Hcl Immed Release 5 Mg Tablet) 10 mg PO Q4H PRN PRN Reason: Pain, Severe (Pain Scale 7-10) Last Admin: 02/13/21 09:58 Dose: 10 mg Documented by: LYNN Pharmacy Consult (Consult Rx Perform Med Rec) 1 each MISCELLANE ONCE PRN PRN Reason: Consult order Thiamine HCl (Thiamine Hcl 100 Mg Tablet) 100 mg PO DAILY [facility] Last Admin: 02/13/21 09:58 Dose: 100 mg Documented by: LYNN Venlafaxine HCl (Venlafaxine Hcl Er 150 Mg Cap.Er.24h) 150 mg PO DAILY [facility] Last Admin: 02/13/21 09:58 Dose: 150 mg Documented by: LYNN Labs CBC & Chem 7: 02/13/21 07:43 02/14/21 05:27 Labs: Laboratory Results - last 24 hr 02/14/21 05:27 Anion Gap 9 L Estim Creat Clear Calc 156.0 Estimated GFR > 60 Random Glucose 88 Calcium 7.9 L Microbiology Microbiology Results: Microbiology 02/08/21 11:19 Blood Culture - Final Blood - Venous No growth after 5 days. 02/08/21 11:14 Blood Culture - Final Blood - Venous No growth after 5 days. Assessment and Plan (1) Alcohol withdrawal: Status: Acute (2) Atrial fibrillation with RVR: Status: Acute (3) Oral thrush: Status: Acute Assessment and Plan: This is a 60-year-old male with history of atrial fibrillation on Eliquis, morbid obesity, dyslipidemia, alcohol abuse who presented on 02/08 with chest pain, abdominal pain, nausea, vomiting. He was acutely intoxicated with alcohol, and noted to be in atrial fibrillation with rapid ventricular response. Workup in the emergency department was significant for strangulated hernia and he was admitted to the surgical service and taken to the OR for emergent repair of incarcerated hernia. He remained intubated postoperatively primarily for control of alcohol withdrawal in AFib with RVR. He was extubated on February 10 and downgraded to the medical floor. Chronic atrial fibrillation HR improving Continue lopressor 50 bid, may need further med titration Eliquis resumed 02/14 oral thrush nystatin [id number] hypokalemia likely secondary to GI losses replace prn follow BMP Alcohol withdrawal Has been receiving scheduled Ativan since extubation Does not appear to be in acute alcohol withdrawal at this time seen by care team, resources provided wean ativan diarrhea cdif negative prn imodium mood continue effexor s/p repair of incarcerated incisional hernia management per surgical team morbid obesity bmi 41.6 s/p gastric bypass, has since gained back 100 lbs dvt ppx - barbara attending - dr. mcdonnell Quality Stroke Does the patient have a stroke diagnosis?: No VTE Prior VTE?: No VTE Risk Level:: Surgical - high VTE Device Contraindication: N/A - Device Ordered VTE Drug Contraindication: N/A - Med Ordered
[2021-02-14] MEDS: Potassium Chloride Packet 20 MEQ PACKET 40 MEQ PO (09:31)
[2021-02-14] MEDS: Loperamide HCl 2 MG CAPSULE 4 MG PO (09:33)
[2021-02-14] MEDS: Metoprolol Tartrate 50 MG TABLET PO ×2 (09:34→20:21)
[2021-02-14] MEDS: Apixaban 5 MG TABLET PO ×2 (09:34→20:21)
[2021-02-14] MEDS: Folic Acid 1 MG TABLET PO (09:35)
[2021-02-14] MEDS: Thiamine HCL 100 MG TABLET PO (09:35)
[2021-02-14] MEDS: Venlafaxine HCl ER 150 MG CAP.ER.24H PO (09:35)
[2021-02-14] MEDS: Nystatin Oral Susp 500,000 UNIT/5 ML ORAL.SUSP 500000 UNIT PO ×4 (09:35→20:21)
--- NOTE | 2021-02-14 11:11 | MHC.RECOVSUP ---
? Reason for consult:Recovery Support o Current location: [facility] o Identified substance use concern: ETOH - Withdrawal - Support ? Intervention: o Community resources provided o Harm reduction discussion ? Plan: o Follow up tomorrow o Patient to follow up with [facility] after discharge ? Additional information: Referred patient to a [facility] Insurance Agents Supervisor. salesperson sheet music:Reinaldo. Referred patient to AA meetings, [facility], and gave patient a copy of the calendar for [facility] and it's meetings.
--- NOTE | 2021-02-14 12:38 | MHC.CM.PN ---
Addendum entered by Josie Gill 02/14/21 14:03: CORRECTION: CALL FROM BRENDA AT [facility] PATIENT IS ACTIVE WITH THEM. [facility] REFERRAL UPDATED TO REFLECT THIS Original Note: PER BILL FROM [facility], PATIENT IS ACTIVE WITH [facility] (NOT [facility]) AGENCY FOUND IN INTERNET SEARCH [address] [place] [id number] CALL TO BE PLACED OT AGENCY ONCE DC IS NEAR. FAX NUMBER FOR DC PAPERWORK TO BE OBTAINED
--- NOTE | 2021-02-14 15:59 | MHC.CM.PN ---
nurse critical care technician cynthia met with patient and explained that the physicians and physical and occuptaional thearpist recomends short term rehab and could possibly be d/c tomorrow [facility] as he was there in the past, he will need a bariatric bed. other referrals sent to [facility], [facility] , [facility] ,[facility] and ([facility]- do not take bariatric patient s) he reported he recived his moderma vaccines february and march of 2020 and has not as yet recived a booster. he will complete hcp tomorrow after he is able to reach his son and get his new address caseworker protective services to follow up with str offers tomorrow
[2021-02-14] MEDS: oxyCODONE HCl Immed Release 5 MG TABLET 10 MG PO ×2 (16:50→20:43)
[2021-02-15] VITALS (11 sets, daily range): BP systolic 127–158; BP diastolic 84–97; PULSE 97–116; RESP 15–20; TEMP 36.1–37.7; O2SAT 95–98
[2021-02-15] MEDS: HYDROmorphone HCl 0.5 MG/0.5 ML SYRINGE IVPUSH ×5 (00:29→21:48)
[2021-02-15 06:25] LABS: Anion Gap 11 (12-20); Blood Urea Nitrogen 15 mg/dL (9-16); Calcium 8.2 mg/dL (8.4-10.2); Carbon Dioxide 31 mmol/L (22-29); Chloride 106 mmol/L (96-108); Creatinine Clr Calc Pharmacy 151.7; Estimated Glomerular Filt Rate > 60; Glucose Random 91 mg/dL (60-115); Potassium 3.1 mmol/L (3.3-5.1); Sodium 145 mmol/L (135-145)
--- NOTE | 2021-02-15 08:29 | P.PNGS_ITS ---
Subjective Subjective Date of Service: 02/15/21 Interval history: Bowels improved today; tolerated removal of hernandez, voiding well. Still not hungry. Physical Exam Vital Signs: Vital Signs: Last Vital Signs Temp 98.5 F 02/15/21 08:00 Pulse 101 H 02/15/21 08:00 Resp 16 02/15/21 08:00 BP 140/84 H 02/15/21 08:00 Pulse Ox 98 02/15/21 08:00 Body Mass Index 41.5 Const: General: cooperative and no acute distress Nutritional Appearance: obese Orientation/consciousness: patient oriented x3 Resp: Effort & Inspection: normal respiratory effort GI: Inspection: Yes normal to inspection, Yes incision (CD, and I) and Yes Abdominal panniculus present Palpation (GI): Soft to palpation, nontender, no guarding and not rigid Percussion: Yes normal to percussion Auscultation: normal bowel sounds Skin: General skin exam: no rashes or lesions noted Neuro: General: patient oriented x3 Extrem: General: Yes no clubbing, cyanosis or edema Procedures Date of Service Date of Service: 02/15/21 Progress Note: A&P Assessment and plan (1) Incarcerated incisional hernia: Status: Acute (2) Alcohol withdrawal: Status: Acute (3) Atrial fibrillation with RVR: Status: Acute Assessment and Plan: S/P repair of large incisional hernia without mesh, wounds clean, dry and intact. Patient tolerating liquid diet, will advance to regular diet tomorrow. Continue PT. Diarrhea is improved. HR controlled. Patient back on oral anticoagulant. No evidence of EtOH withdrawal at this time. Fall Risk Details Current Medications: Current Medications Apixaban (Apixaban 5 Mg Tablet) 5 mg PO BID [facility] Last Admin: 02/14/21 20:21 Dose: 5 mg Documented by: Folic Acid (Folic Acid 1 Mg Tablet) 1 mg PO DAILY [facility] Last Admin: 02/14/21 09:35 Dose: 1 mg Documented by: Hydromorphone HCl (Hydromorphone Hcl 0.5 Mg/0.5 Ml Syringe) 0.5 mg IVPUSH Q4H PRN; Protocol PRN Reason: Pain, Moderate (Pain Scale 4-6 Last Admin: 02/15/21 04:32 Dose: 0.5 mg Documented by: Loperamide HCl (Loperamide Hcl 2 Mg Capsule) 4 mg PO Q6H PRN PRN Reason: Diarrhea Last Admin: 02/14/21 09:33 Dose: 4 mg Documented by: Lorazepam (Lorazepam 2 Mg/Ml Vial) 0.25 mg IVPUSH Q6H PRN PRN Reason: Alcohol Withdrawal Last Admin: 02/14/21 12:59 Dose: 0.25 mg Documented by: Metoprolol Tartrate (Metoprolol Tartrate 50 Mg Tablet) 50 mg PO BID [facility]; Pr otocol Last Admin: 02/14/21 20:21 Dose: 50 mg Documented by: Nystatin (Nystatin Oral Susp 500,000 Unit/5 Ml Oral.Susp) 500,000 unit PO QID [facility]; Protocol Stop: 02/23/21 09:44 Last Admin: 02/14/21 20:21 Dose: 500,000 unit Documented by: Oxycodone HCl (Oxycodone Hcl Immed Release 5 Mg Tablet) 10 mg PO Q4H PRN PRN Reason: Pain, Severe (Pain Scale 7-10) Last Admin: 02/14/21 20:43 Dose: 10 mg Documented by: Pharmacy Consult (Consult Rx Perform Med Rec) 1 each MISCELLANE ONCE PRN PRN Reason: Consult order Thiamine HCl (Thiamine Hcl 100 Mg Tablet) 100 mg PO DAILY [facility] Last Admin: 02/14/21 09:35 Dose: 100 mg Documented by: Venlafaxine HCl (Venlafaxine Hcl Er 150 Mg Cap.Er.24h) 150 mg PO DAILY [facility] Last Admin: 02/14/21 09:35 Dose: 150 mg Documented by: Time Spent With Patient Time: Total time spent is greater than 50% in coordination of care (as documented) at patient's floor/unit and/or counseling patient: Time with patient: 15 - 24 minutes Quality Stroke Does the patient have a stroke diagnosis?: No VTE Prior VTE?: No VTE Risk Level:: Surgical - high VTE Device Contraindication: N/A - Device Ordered VTE Drug Contraindication: N/A - Med Ordered
[2021-02-15] MEDS: Thiamine HCL 100 MG TABLET PO (08:43)
[2021-02-15] MEDS: oxyCODONE HCl Immed Release 5 MG TABLET 10 MG PO ×3 (08:43→18:50)
[2021-02-15] MEDS: Nystatin Oral Susp 500,000 UNIT/5 ML ORAL.SUSP 500000 UNIT PO ×4 (08:43→20:25)
[2021-02-15] MEDS: Metoprolol Tartrate 50 MG TABLET PO ×2 (08:43→20:24)
[2021-02-15] MEDS: Apixaban 5 MG TABLET PO ×2 (08:43→20:25)
[2021-02-15] MEDS: Venlafaxine HCl ER 150 MG CAP.ER.24H PO (08:43)
[2021-02-15] MEDS: Folic Acid 1 MG TABLET PO (08:43)
--- NOTE | 2021-02-15 09:43 | MHC.CM.PN ---
nurse watch caser note electronic medical record reviewed along with case discussed with staff nurse and surgeron, plan is for discharge tomorrow if tolerating regular diet . patient will need str per pt/ot recomendations. patient is in agreement referrals to [facility] ist choice they arw following him , and [facility] pending reviews . updates sent today
--- NOTE | 2021-02-15 12:45 | MHC.CM.PN ---
nurse career coach note jarod discussed with surgeon cristi durbin hospit[facility] PLAN TO START REG DIET LATE TODAY OR TOMORROW AND SEE IF PATIENT WILL TOPLERATE IT PATIENT ISS STILL HAVING DIARRHEA BUT IMPROVED IN NUMBER OF ACCURANCES PLAN FOR DISCHARGE 1-2 DAYS PER SURGEON REFERRA;S INIATED HOWEVER PATIENT NEEDS TO BE OFF ATIVAN FOR 24 HRS , HE HAS BEEN OFF THE CIWA SCORING FOR SOME TIME NOW DISCHARGE TO SHORT TERM REHAB WHEN MEDICALLY STABLE [facility] FOLLOWING WT 302 NEED BARIATRIC BED, [facility]SO FOLLOWING HE WILL NEED PT/OT SERVICES AND NEED AMBULANCE TRANSFER ONCE DISCHARGE MEDICARE UPDATE 02/14/21
[2021-02-15] MEDS: LORazepam 1 MG TABLET PO (12:48)
--- NOTE | 2021-02-15 13:14 | MHC.RECOVSUP ---
? Reason for consult:Recovery Support o Current location:[facility] o Identified substance use concern: ETOH - Withdrawal - Support ? Intervention: ? Plan:Bed search in progress to o Follow up tomorrow ? Additional information: F/U on the referral to our Recovery Coachs to see if patient was contacted. Patient was not, but will F/U tomorrow
--- NOTE | 2021-02-15 13:36 | HO.PM.IMPN ---
Subjective Subjective Date of Service: 02/15/21 Interval History: cc: abd pain interval history: feels a little jittery Cardiovascular Cardiovascular: Reports no additional cardiovascular complaints Gastrointestinal Gastrointestinal: Reports no additional gastrointestinal complaints Physical Exam Vital Signs: Vital Signs: Last Vital Signs Temp 99.9 F 02/15/21 12:00 Pulse 105 H 02/15/21 12:00 Resp 15 02/15/21 12:00 BP 158/95 H 02/15/21 12:00 Pulse Ox 95 02/15/21 12:00 Body Mass Index 41.5 General: AO X 3, no acute distress, tremulous Resp: CTA bilateral, no accessory muscles used CVS: S1,S2,RRR GI: soft, non tender, non distended Neuro: motor grossly intact, alert Psych: appropriate affect, appropriate insight Objective Data Active Medications Apixaban (Apixaban 5 Mg Tablet) 5 mg PO BID [facility] Last Admin: 02/15/21 08:43 Dose: 5 mg Documented by: LYNN Folic Acid (Folic Acid 1 Mg Tablet) 1 mg PO DAILY [facility] Last Admin: 02/15/21 08:43 Dose: 1 mg Documented by: LYNN Hydromorphone HCl (Hydromorphone Hcl 0.5 Mg/0.5 Ml Syringe) 0.5 mg IVPUSH Q4H PRN; Protocol PRN Reason: Pain, Moderate (Pain Scale 4-6 Last Admin: 02/15/21 10:02 Dose: 0.5 mg Documented by: SHIV Loperamide HCl (Loperamide Hcl 2 Mg Capsule) 4 mg PO Q6H PRN PRN Reason: Diarrhea Last Admin: 02/14/21 09:33 Dose: 4 mg Documented by: MARIA ELENA Lorazepam (Lorazepam 2 Mg/Ml Vial) 0.25 mg IVPUSH Q6H PRN PRN Reason: Alcohol Withdrawal Last Admin: 02/14/21 12:59 Dose: 0.25 mg Documented by: MARIA ELENA Lorazepam (Lorazepam 1 Mg Tablet) 1 mg PO Q4H PRN PRN Reason: anxiety Last Admin: 02/15/21 12:48 Dose: 1 mg Documented by: SHIV Metoprolol Tartrate (Metoprolol Tartrate 50 Mg Tablet) 50 mg PO BID [facility]; Protocol Last Admin: 02/15/21 08:43 Dose: 50 mg Documented by: LYNN Nystatin (Nystatin Oral Susp 500,000 Unit/5 Ml Oral.Susp) 500,000 unit PO QID [facility]; Protocol Stop: 02/23/21 09:44 Last Admin: 02/15/21 08:43 Dose: 500,000 unit Documented by: LYNN Oxycodone HCl (Oxycodone Hcl Immed Release 5 Mg Tablet) 10 mg PO Q4H PRN PRN Reason: Pain, Severe (Pain Scale 7-10) Last Admin: 02/15/21 08:43 Dose: 10 mg Documented by: LYNN Pharmacy Consult (Consult Rx Perform Med Rec) 1 each MISCELLANE ONCE PRN PRN Reason: Consult order Thiamine HCl (Thiamine Hcl 100 Mg Tablet) 100 mg PO DAILY [facility] Last Admin: 02/15/21 08:43 Dose: 100 mg Documented by: LYNN Venlafaxine HCl (Venlafaxine Hcl Er 150 Mg Cap.Er.24h) 150 mg PO DAILY [facility] Last Admin: 02/15/21 08:43 Dose: 150 mg Documented by: LYNN Labs CBC & Chem 7: 02/13/21 07:43 02/15/21 05:48 Labs: Laboratory Results - last 24 hr 02/15/21 05:48 Anion Gap 11 L Estim Creat Clear Calc 151.7 Estimated GFR > 60 Random Glucose 91 Calcium 8.2 L Assessment and Plan (1) Alcohol withdrawal: Status: Acute (2) Atrial fibrillation with RVR: Status: Acute (3) Oral thrush: Status: Acute Assessment and Plan: This is a 60-year-old male with history of atrial fibrillation on Eliquis, morbid obesity, dyslipidemia, alcohol abuse who presented on 02/08 with chest pain, abdominal pain, nausea, vomiting. He was acutely intoxicated with alcohol, and noted to be in atrial fibrillation with rapid ventricular response. Workup in the emergency department was significant for strangulated hernia and he was admitted to the surgical service and taken to the OR for emergent repair of incarcerated hernia. He remained intubated postoperatively primarily for control of alcohol withdrawal in AFib with RVR. He was extubated on February 10 and downgraded to the medical floor. Chronic atrial fibrillation HR improving, now low 100s Continue lopressor 50 bid, may need further med titration Eliquis resumed 02/14 oral thrush nystatin [id number] hypokalemia replace follow BMP Alcohol dependence with withdrawal as needed ativan diarrhea cdif negative prn imodium mood continue effexor s/p repair of incarcerated incisional hernia management per surgical team morbid obesity bmi 41.6 s/p gastric bypass, has since gained back 100 lbs dvt ppx - eliquis Quality Stroke Does the patient have a stroke diagnosis?: No VTE Prior VTE?: No VTE Risk Level:: Surgical - high VTE Device Contraindication: N/A - Device Ordered VTE Drug Contraindication: N/A - Med Ordered
[2021-02-15] MEDS: Potassium Chloride ER 20 MEQ TAB.ER.PRT 40 MEQ PO (14:26)
[2021-02-15] MEDS: Loperamide HCl 2 MG CAPSULE 4 MG PO (14:26)
--- NOTE | 2021-02-15 16:34 | PC.NURSE ---
surgical atif intact in the middle of abdomen,bruises present around surgical site
[2021-02-16] VITALS (8 sets, daily range): BP systolic 137–154; BP diastolic 87–100; PULSE 89–100; RESP 16–18; TEMP 36–36.3; O2SAT 94–98
[2021-02-16] MEDS: oxyCODONE HCl Immed Release 5 MG TABLET 10 MG PO ×5 (00:38→23:59)
[2021-02-16] MEDS: HYDROmorphone HCl 0.5 MG/0.5 ML SYRINGE IVPUSH ×3 (02:19→21:59)
[2021-02-16] MEDS: Loperamide HCl 2 MG CAPSULE 4 MG PO (03:35)
[2021-02-16 06:19] LABS: Hematocrit 35.6 % (42.0-52.0); Mean Corpuscular HGB Conc 30.9 g/dl (31.0-36.0); Mean Corpuscular Hemoglobin 28.3 pg (27.0-33.0); Mean Corpuscular Volume 91.5 fL (80.0-98.0); Mean Platelet Volume 10.4 fL (9.4-12.4); Platelet Count 239 X10*3/uL (160-400); Red Blood Count 3.89 X10*6/uL (4.60-5.80); Red Cell Distribution Width 19.7 % (11.0-16.0)
[2021-02-16 06:47] LABS: Anion Gap 14 (12-20); Blood Urea Nitrogen 12 mg/dL (9-16); Carbon Dioxide 28 mmol/L (22-29); Chloride 104 mmol/L (96-108); Creatinine Clr Calc Pharmacy 158.2; Estimated Glomerular Filt Rate > 60; Glucose Fasting 86 mg/dL (60-99); Magnesium 2.1 mg/dL (1.6-2.6); Potassium 3.6 mmol/L (3.3-5.1); Sodium 142 mmol/L (135-145)
--- NOTE | 2021-02-16 08:01 | PM.PNGS ---
Subjective Subjective Date of Service: 02/16/21 Interval history: Patient reports ambulating yesterday and sitting up in a chair for approximately 2 hours. He did develop some back pain while sitting. His bowels remain solid without any further diarrhea. He is willing to try regular diet today. Physical Exam Vital Signs: Vital Signs: Last Vital Signs Temp 97 F 02/16/21 03:52 Pulse 89 02/16/21 03:52 Resp 18 02/16/21 03:52 BP 140/87 H 02/16/21 03:52 Pulse Ox 95 02/16/21 03:52 Body Mass Index 41.5 Const: General: cooperative and no acute distress Nutritional Appearance: obese Orientation/consciousness: patient oriented x3 Limitations: no limitations HENMT: Head: Yes normocephalic and Yes atraumatic Ears: hearing grossly normal bilaterally Resp: Effort & Inspection: normal respiratory effort, no audible wheezes, no cough and no respiratory distress GI: Inspection: Yes normal to inspection and Yes incision (Clean dry and intact) Palpation (GI): Soft to palpation, nontender, no guarding and not rigid Percussion: Yes normal to percussion Auscultation: normal bowel sounds Skin: Other: Warm, dry, no rash Neuro: General: patient oriented x3 Extrem: General: No edema Procedures Date of Service Date of Service: 02/16/21 Progress Note: A&P Assessment and plan (1) Incarcerated incisional hernia: Status: Acute (2) Alcohol withdrawal: Status: Acute (3) Atrial fibrillation with RVR: Status: Acute Assessment and Plan: 60-year-old male presenting with an incarcerated incisional hernia, alcohol withdrawal, AFib with RVR, now S/P repair of incisional hernia without mesh. He is making great improvement with ambulation. He will start regular diet today. If this is tolerated he would be ready for discharge tomorrow to [facility] if medically cleared. Continue physical and occupational therapy. Will order COVID test today. Fall Risk Details Current Medications: Current Medications Apixaban (Apixaban 5 Mg Tablet) 5 mg PO BID [facility] Last Admin: 02/15/21 20:25 Dose: 5 mg Documented by: Folic Acid (Folic Acid 1 Mg Tablet) 1 mg PO DAILY [facility] Last Admin: 02/15/21 08:43 Dose: 1 mg Documented by: Hydromorphone HCl (Hydromorphone Hcl 0.5 Mg/0.5 Ml Syringe) 0.5 mg IVPUSH Q4H PRN; Protocol PRN Reason: Pain, Moderate (Pain Scale 4-6 Last Admin: 02/16/21 06:42 Dose: 0.5 mg Documented by: Loperamide HCl (Loperamide Hcl 2 Mg Capsule) 4 mg PO Q6H PRN PRN Reason: Diarrhea Last Admin: 02/16/21 03:35 Dose: 4 mg Documented by: Lorazepam (Lorazepam 2 Mg/Ml Vial) 0.25 mg IVPUSH Q6H PRN PRN Reason: Alcohol Withdrawal Last Admin: 02/14/21 12:59 Dose: 0.25 mg Documented by: Lorazepam (Lorazepam 1 Mg Tablet) 1 mg PO Q4H PRN PRN Reason: anxiety Last Admin: 02/15/21 12:48 Dose: 1 mg Documented by: Metoprolol Tartrate (Metoprolol Tartrate 50 Mg Tablet) 50 mg PO BID [facility]; Protocol Last Admin: 02/15/21 20:24 Dose: 50 mg Documented by: Nystatin (Nystatin Oral Susp 500,000 Unit/5 Ml Oral.Susp) 500,000 unit PO QID [facility]; Protocol Stop: 02/23/21 09:44 Last Admin: 02/15/21 20:25 Dose: 500,000 unit Documented by: Oxycodone HCl (Oxycodone Hcl Immed Release 5 Mg Tablet) 10 mg PO Q4H PRN PRN Reason: Pain, Severe (Pain Scale 7-10) Last Admin: 02/16/21 00:38 Dose: 10 mg Documented by: Pharmacy Consult (Consult Rx Perform Med Rec) 1 each MISCELLANE ONCE PRN PRN Reason: Consult order Thiamine HCl (Thiamine Hcl 100 Mg Tablet) 100 mg PO DAILY [facility] Last Admin: 02/15/21 08:43 Dose: 100 mg Documented by: Venlafaxine HCl (Venlafaxine Hcl Er 150 Mg Cap.Er.24h) 150 mg PO DAILY [facility] Last Admin: 02/15/21 08:43 Dose: 150 mg Documented by: Time Spent With Patient Time: Total time spent is greater than 50% in coordination of care (as documented) at patient's floor/unit and/or counseling patient: Time with patient: 15 - 24 minutes Quality Stroke Does the patient have a stroke diagnosis?: No VTE Prior VTE?: No VTE Risk Level:: Surgical - high VTE Device Contraindication: N/A - Device Ordered VTE Drug Contraindication: N/A - Med Ordered
[2021-02-16] MEDS: Metoprolol Tartrate 50 MG TABLET PO (09:16)
[2021-02-16] MEDS: Folic Acid 1 MG TABLET PO (09:16)
[2021-02-16] MEDS: Nystatin Oral Susp 500,000 UNIT/5 ML ORAL.SUSP 500000 UNIT PO ×4 (09:17→21:27)
[2021-02-16] MEDS: Apixaban 5 MG TABLET PO ×2 (09:17→21:27)
[2021-02-16] MEDS: Thiamine HCL 100 MG TABLET PO (09:17)
[2021-02-16] MEDS: Venlafaxine HCl ER 150 MG CAP.ER.24H PO (09:17)
[2021-02-16 09:47] LABS: COVID-19 Test Negative (Negative)
--- NOTE | 2021-02-16 11:13 | HO.PM.IMPN ---
Subjective Subjective Date of Service: 02/16/21 Interval History: cc: abd pain interval history: less jittery Cardiovascular Cardiovascular: Reports no additional cardiovascular complaints Respiratory Respiratory: Reports no additional respiratory complaints Physical Exam Vital Signs: Vital Signs: Last Vital Signs Temp 96.8 F 02/16/21 08:00 Pulse 100 02/16/21 09:10 Resp 18 02/16/21 08:00 BP 137/100 H 02/16/21 08:00 Pulse Ox 98 02/16/21 09:10 Body Mass Index 41.5 General: AO X 3, no acute distress, Resp:? CTA bilateral, no accessory muscles used CVS: S1,S2,RRR GI: soft, non tender, non distended Neuro:? motor grossly intact, alert Psych: appropriate affect, appropriate insight? Objective Data Active Medications Apixaban (Apixaban 5 Mg Tablet) 5 mg PO BID [facility] Last Admin: 02/16/21 09:17 Dose: 5 mg Documented by: EUNICE Folic Acid (Folic Acid 1 Mg Tablet) 1 mg PO DAILY [facility] Last Admin: 02/16/21 09:16 Dose: 1 mg Documented by: EUNICE Hydromorphone HCl (Hydromorphone Hcl 0.5 Mg/0.5 Ml Syringe) 0.5 mg IVPUSH Q4H PRN; Protocol PRN Reason: Pain, Moderate (Pain Scale 4-6 Last Admin: 02/16/21 06:42 Dose: 0.5 mg Documented by: MENDEZ Loperamide HCl (Loperamide Hcl 2 Mg Capsule) 4 mg PO Q6H PRN PRN Reason: Diarrhea Last Admin: 02/16/21 03:35 Dose: 4 mg Documented by: MENDEZ Lorazepam (Lorazepam 2 Mg/Ml Vial) 0.25 mg IVPUSH Q6H PRN PRN Reason: Alcohol Withdrawal Last Admin: 02/14/21 12:59 Dose: 0.25 mg Documented by: MARIA ELENA Lorazepam (Lorazepam 1 Mg Tablet) 1 mg PO Q4H PRN PRN Reason: anxiety Last Admin: 02/15/21 12:48 Dose: 1 mg Documented by: SHIV Metoprolol Tartrate (Metoprolol Tartrate 50 Mg Tablet) 50 mg PO BID [facility]; Protocol Last Admin: 02/16/21 09:16 Dose: 50 mg Documented by: EUNICE Nystatin (Nystatin Oral Susp 500,000 Unit/5 Ml Oral.Susp) 500,000 unit PO QID [facility]; Protocol Stop: 02/23/21 09:44 Last Admin: 02/16/21 09:17 Dose: 500,000 unit Documented by: EUNICE Oxycodone HCl (Oxycodone Hcl Immed Release 5 Mg Tablet) 10 mg PO Q4H PRN PRN Reason: Pain, Severe (Pain Scale 7-10) Last Admin: 02/16/21 09:33 Dose: 10 mg Documented by: EUNICE Pharmacy Consult (Consult Rx Perform Med Rec) 1 each MISCELLANE ONCE PRN PRN Reason: Consult order Thiamine HCl (Thiamine Hcl 100 Mg Tablet) 100 mg PO DAILY [facility] Last Admin: 02/16/21 09:17 Dose: 100 mg Documented by: EUNICE Venlafaxine HCl (Venlafaxine Hcl Er 150 Mg Cap.Er.24h) 150 mg PO DAILY [facility] Last Admin: 02/16/21 09:17 Dose: 150 mg Documented by: EUNICE Labs CBC & Chem 7: 02/16/21 05:52 02/16/21 05:52 Labs: Laboratory Results - last 24 hr 02/16/21 02/16/21 02/16/21 05:52 05:52 09:10 MCV 91.5 MCH 28.3 MCHC 30.9 L RDW 19.7 H Plt Count 239 D MPV 10.4 Absolute Nucleated RBC 0.000 Nucleated RBC % (auto) 0.0 Anion Gap 14 Estim Creat Clear Calc 158.2 Estimated GFR > 60 Fasting Glucose 86 Calcium 8.0 L Magnesium 2.1 COVID-19 ([facility]) Negative COVID-19 Clin Com See Note Assessment and Plan (1) Alcohol withdrawal: Status: Acute (2) Atrial fibrillation with RVR: Status: Acute (3) Oral thrush: Status: Acute Assessment and Plan: This is a 60-year-old male with history of atrial fibrillation on Eliquis, morbid obesity, dyslipidemia, alcohol abuse who presented on 02/08 with chest pain, abdominal pain, nausea, vomiting. He was acutely intoxicated with alcohol, and noted to be in atrial fibrillation with rapid ventricular response. Workup in the emergency department was significant for strangulated hernia and he was admitted to the surgical service and taken to the OR for emergent repair of incarcerated hernia. He remained intubated postoperatively primarily for control of alcohol withdrawal in AFib with RVR. He was extubated on February 10 and downgraded to the medical floor. Chronic atrial fibrillation HR improving, now low 100s Continue lopressor will increase to 75mg bid Eliquis resumed 02/14 oral thrush nystatin [id number] hypokalemia resolved Alcohol dependence with withdrawal as needed ativan much improved diarrhea cdif negative prn imodium mood continue effexor s/p repair of incarcerated incisional hernia management per surgical team morbid obesity bmi 41.6 s/p gastric bypass, has since gained back 100 lbs dvt ppx - eliquis Quality Stroke Does the patient have a stroke diagnosis?: No VTE Prior VTE?: No VTE Risk Level:: Surgical - high VTE Device Contraindication: N/A - Device Ordered VTE Drug Contraindication: N/A - Med Ordered
[2021-02-16] MEDS: Metoprolol Tartrate 25 MG TABLET 75 MG PO (21:27)
[2021-02-17] VITALS (8 sets, daily range): BP systolic 131–173; BP diastolic 87–96; PULSE 82–97; RESP 17–18; TEMP 36.2–36.8; O2SAT 96–98
[2021-02-17] MEDS: oxyCODONE HCl Immed Release 5 MG TABLET 10 MG PO ×6 (04:59→21:02)
--- NOTE | 2021-02-17 07:57 | PM.PNGS ---
Subjective Subjective Date of Service: 02/17/21 Interval history: Patient feels improved and tolerated a regular diet. He was able to get out of bed and walk yesterday as well. Bowels are solid without diarrhea. He has not received Ativan 3 days. Physical Exam Vital Signs: Vital Signs: Last Vital Signs Temp 97.6 F 02/17/21 07:44 Pulse 87 02/17/21 07:44 Resp 18 02/17/21 07:44 BP 158/96 H 02/17/21 07:44 Pulse Ox 98 02/17/21 07:44 Body Mass Index 41.5 Const: General: cooperative, comfortable and no acute distress Nutritional Appearance: obese Orientation/consciousness: patient oriented x3 HENMT: Head: Yes normocephalic and Yes atraumatic Ears: hearing grossly normal bilaterally Resp: Effort & Inspection: normal respiratory effort, no audible wheezes, no cough and no respiratory distress GI: Other: Soft and nondistended, incision clean, dry, and intact without redness or discharge. Skin: Other: Warm, dry, no rash Neuro: General: patient oriented x3 Extrem: Other: No edema Procedures Date of Service Date of Service: 02/17/21 Progress Note: A&P Assessment and plan (1) Incarcerated incisional hernia: Status: Acute (2) Alcohol withdrawal: Status: Acute (3) Atrial fibrillation with RVR: Status: Acute Assessment and Plan: Patient tolerated a regular diet without nausea or vomiting. He is ambulating and tolerating this well. Bowels are normal once again. Incisions clean, dry, and intact without evidence of hernia recurrence or infection. Patient is ready for discharge to short-term rehab today if bed is available. COVID-19 testing performed yesterday and was negative. Fall Risk Details Current Medications: Current Medications Apixaban (Apixaban 5 Mg Tablet) 5 mg PO BID [facility] Last Admin: 02/16/21 21:27 Dose: 5 mg Documented by: Folic Acid (Folic Acid 1 Mg Tablet) 1 mg PO DAILY [facility] Last Admin: 02/16/21 09:16 Dose: 1 mg Documented by: Hydromorphone HCl (Hydromorphone Hcl 0.5 Mg/0.5 Ml Syringe) 0.5 mg IVPUSH Q4H PRN; Protocol PRN Reason: Pain, Moderate (Pain Scale 4-6 Last Admin: 02/16/21 21:59 Dose: 0.5 mg Documented by: Loperamide HCl (Loperamide Hcl 2 Mg Capsule) 4 mg PO Q6H PRN PRN Reason: Diarrhea Last Admin: 02/16/21 03:35 Dose: 4 mg Documented by: Lorazepam (Lorazepam 2 Mg/Ml Vial) 0.25 mg IVPUSH Q6H PRN PRN Reason: Alcohol Withdrawal Last Admin: 02/14/21 12:59 Dose: 0.25 mg Documented by: Lorazepam (Lorazepam 1 Mg Tablet) 1 mg PO Q4H PRN PRN Reason: anxiety Last Admin: 02/15/21 12:48 Dose: 1 mg Documented by: Metoprolol Tartrate (Metoprolol Tartrate 25 Mg Tablet) 75 mg PO BID [facility]; Protocol Last Admin: 02/16/21 21:27 Dose: 75 mg Documented by: Nystatin (Nystatin Oral Susp 500,000 Unit/5 Ml Oral.Susp) 500,000 unit PO QID [facility]; Protocol Stop: 02/23/21 09:44 Last Admin: 02/16/21 21:27 Dose: 500,000 unit Documented by: Oxycodone HCl (Oxycodone Hcl Immed Release 5 Mg Tablet) 10 mg PO Q4H PRN PRN Reason: Pain, Severe (Pain Scale 7-10) Last Admin: 02/17/21 04:59 Dose: 10 mg Documented by: Pharmacy Consult (Consult Rx Perform Med Rec) 1 each MISCELLANE ONCE PRN PRN Reason: Consult order Thiamine HCl (Thiamine Hcl 100 Mg Tablet) 100 mg PO DAILY [facility] Last Admin: 02/16/21 09:17 Dose: 100 mg Documented by: Venlafaxine HCl (Venlafaxine Hcl Er 150 Mg Cap.Er.24h) 150 mg PO DAILY [facility] Last Admin: 02/16/21 09:17 Dose: 150 mg Documented by: Time Spent With Patient Time: Total time spent is greater than 50% in coordination of care (as documented) at patient's floor/unit and/or counseling patient: Time with patient: 15 - 24 minutes Quality Stroke Does the patient have a stroke diagnosis?: No VTE Prior VTE?: No VTE Risk Level:: Surgical - high VTE Device Contraindication: N/A - Device Ordered VTE Drug Contraindication: N/A - Med Ordered
[2021-02-17] MEDS: Nystatin Oral Susp 500,000 UNIT/5 ML ORAL.SUSP 500000 UNIT PO ×4 (08:22→21:02)
[2021-02-17] MEDS: Thiamine HCL 100 MG TABLET PO (08:22)
[2021-02-17] MEDS: Metoprolol Tartrate 25 MG TABLET 75 MG PO ×2 (08:22→21:01)
[2021-02-17] MEDS: Folic Acid 1 MG TABLET PO (08:22)
[2021-02-17] MEDS: Venlafaxine HCl ER 150 MG CAP.ER.24H PO (08:22)
[2021-02-17] MEDS: Apixaban 5 MG TABLET PO ×2 (08:22→21:02)
--- NOTE | 2021-02-17 10:11 | HO.PM.IMPN ---
Subjective Subjective Date of Service: 02/17/21 Interval History: cc: abd pain interval history: feels well Cardiovascular Cardiovascular: Reports no additional cardiovascular complaints Respiratory Respiratory: Reports no additional respiratory complaints Physical Exam Vital Signs: Vital Signs: Last Vital Signs Temp 97.6 F 02/17/21 07:44 Pulse 87 02/17/21 09:53 Resp 18 02/17/21 07:44 BP 158/96 H 02/17/21 09:53 Pulse Ox 98 02/17/21 09:53 Body Mass Index 41.5 General: AO X 3, no acute distress, Resp:? CTA bilateral, no accessory muscles used CVS: S1,S2,RRR GI: soft, non tender, non distended Neuro:? motor grossly intact, alert Psych: appropriate affect, appropriate insight? Objective Data Active Medications Apixaban (Apixaban 5 Mg Tablet) 5 mg PO BID [facility] Last Admin: 02/17/21 08:22 Dose: 5 mg Documented by: LYNN Folic Acid (Folic Acid 1 Mg Tablet) 1 mg PO DAILY [facility] Last Admin: 02/17/21 08:22 Dose: 1 mg Documented by: LYNN Hydromorphone HCl (Hydromorphone Hcl 0.5 Mg/0.5 Ml Syringe) 0.5 mg IVPUSH Q4H PRN; Protocol PRN Reason: Pain, Moderate (Pain Scale 4-6 Last Admin: 02/16/21 21:59 Dose: 0.5 mg Documented by: BAL Loperamide HCl (Loperamide Hcl 2 Mg Capsule) 4 mg PO Q6H PRN PRN Reason: Diarrhea Last Admin: 02/16/21 03:35 Dose: 4 mg Documented by: MENDEZ Lorazepam (Lorazepam 2 Mg/Ml Vial) 0.25 mg IVPUSH Q6H PRN PRN Reason: Alcohol Withdrawal Last Admin: 02/14/21 12:59 Dose: 0.25 mg Documented by: MARIA ELENA Lorazepam (Lorazepam 1 Mg Tablet) 1 mg PO Q4H PRN PRN Reason: anxiety Last Admin: 02/15/21 12:48 Dose: 1 mg Documented by: SHIV Metoprolol Tartrate (Metoprolol Tartrate 25 Mg Tablet) 75 mg PO BID [facility]; Protocol Last Admin: 02/17/21 08:22 Dose: 75 mg Documented by: LYNN Nystatin (Nystatin Oral Susp 500,000 Unit/5 Ml Oral.Susp) 500,000 unit PO QID [facility]; Protocol Stop: 02/23/21 09:44 Last Admin: 02/17/21 08:22 Dose: 500,000 unit Documented by: LYNN Oxycodone HCl (Oxycodone Hcl Immed Release 5 Mg Tablet) 10 mg PO Q4H PRN PRN Reason: Pain, Severe (Pain Scale 7-10) Last Admin: 02/17/21 08:53 Dose: 10 mg Documented by: LYNN Pharmacy Consult (Consult Rx Perform Med Rec) 1 each MISCELLANE ONCE PRN PRN Reason: Consult order Thiamine HCl (Thiamine Hcl 100 Mg Tablet) 100 mg PO DAILY [facility] Last Admin: 02/17/21 08:22 Dose: 100 mg Documented by: LYNN Venlafaxine HCl (Venlafaxine Hcl Er 150 Mg Cap.Er.24h) 150 mg PO DAILY [facility] Last Admin: 02/17/21 08:22 Dose: 150 mg Documented by: LYNN Labs CBC & Chem 7: 02/16/21 05:52 02/16/21 05:52 Assessment and Plan (1) Alcohol withdrawal: Status: Acute (2) Atrial fibrillation with RVR: Status: Acute (3) Oral thrush: Status: Acute Assessment and Plan: This is a 60-year-old male with history of atrial fibrillation on Eliquis, morbid obesity, dyslipidemia, alcohol abuse who presented on 02/08 with chest pain, abdominal pain, nausea, vomiting. He was acutely intoxicated with alcohol, and noted to be in atrial fibrillation with rapid ventricular response. Workup in the emergency department was significant for strangulated hernia and he was admitted to the surgical service and taken to the OR for emergent repair of incarcerated hernia. He remained intubated postoperatively primarily for control of alcohol withdrawal in AFib with RVR. He was extubated on February 10 and downgraded to the medical floor. Chronic atrial fibrillation rate controlled Continue lopressor increased to 75mg bid on 02/16 Eliquis resumed 02/14 hypokalemia resolved Alcohol dependence with withdrawal resolved diarrhea cdif negative prn imodium mood continue effexor s/p repair of incarcerated incisional hernia management per surgical team morbid obesity bmi 41.6 s/p gastric bypass, has since gained back 100 lbs dvt ppx - eliquis Quality Stroke Does the patient have a stroke diagnosis?: No VTE Prior VTE?: No VTE Risk Level:: Surgical - high VTE Device Contraindication: N/A - Device Ordered VTE Drug Contraindication: N/A - Med Ordered
--- NOTE | 2021-02-17 12:03 | MHC.CM.PN ---
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 will need bariatric bed discharge plan short term rehab <length of stay less than 30 days transportation action blella
[2021-02-18] VITALS (8 sets, daily range): BP systolic 136–165; BP diastolic 87–110; PULSE 72–95; RESP 16–18; TEMP 36–36.7; O2SAT 97–98
[2021-02-18] MEDS: oxyCODONE HCl Immed Release 5 MG TABLET 10 MG PO ×5 (01:16→20:59)
[2021-02-18] MEDS: Thiamine HCL 100 MG TABLET PO (09:31)
[2021-02-18] MEDS: Metoprolol Tartrate 25 MG TABLET 75 MG PO ×2 (09:31→21:00)
[2021-02-18] MEDS: Venlafaxine HCl ER 150 MG CAP.ER.24H PO (09:31)
[2021-02-18] MEDS: Folic Acid 1 MG TABLET PO (09:31)
[2021-02-18] MEDS: Apixaban 5 MG TABLET PO ×2 (09:31→21:00)
[2021-02-18] MEDS: Nystatin Oral Susp 500,000 UNIT/5 ML ORAL.SUSP 500000 UNIT PO ×2 (09:32→14:37)
--- NOTE | 2021-02-18 10:01 | HO.PM.IMPN ---
Subjective Subjective Date of Service: 02/18/21 Interval History: cc: abd pain interval history: feels well Cardiovascular Cardiovascular: Reports no additional cardiovascular complaints Respiratory Respiratory: Reports no additional respiratory complaints Physical Exam Vital Signs: Vital Signs: Last Vital Signs Temp 96.8 F 02/18/21 08:00 Pulse 76 02/18/21 09:31 Resp 18 02/18/21 08:00 BP 157/110 H 02/18/21 09:31 Pulse Ox 98 02/18/21 08:00 Body Mass Index 41.5 General: AO X 3, no acute distress, Resp:? CTA bilateral, no accessory muscles used CVS: S1,S2,RRR GI: soft, non tender, non distended Neuro:? motor grossly intact, alert Psych: appropriate affect, appropriate insight? Objective Data Active Medications Apixaban (Apixaban 5 Mg Tablet) 5 mg PO BID [facility] Last Admin: 02/18/21 09:31 Dose: 5 mg Documented by: WENDIE Folic Acid (Folic Acid 1 Mg Tablet) 1 mg PO DAILY [facility] Last Admin: 02/18/21 09:31 Dose: 1 mg Documented by: WENDIE Hydromorphone HCl (Hydromorphone Hcl 0.5 Mg/0.5 Ml Syringe) 0.5 mg IVPUSH Q4H PRN; Protocol PRN Reason: Pain, Moderate (Pain Scale 4-6 Last Admin: 02/16/21 21:59 Dose: 0.5 mg Documented by: BAL Loperamide HCl (Loperamide Hcl 2 Mg Capsule) 4 mg PO Q6H PRN PRN Reason: Diarrhea Last Admin: 02/16/21 03:35 Dose: 4 mg Documented by: MENDEZ Lorazepam (Lorazepam 2 Mg/Ml Vial) 0.25 mg IVPUSH Q6H PRN PRN Reason: Alcohol Withdrawal Last Admin: 02/14/21 12:59 Dose: 0.25 mg Documented by: MARIA ELENA Lorazepam (Lorazepam 1 Mg Tablet) 1 mg PO Q4H PRN PRN Reason: anxiety Last Admin: 02/15/21 12:48 Dose: 1 mg Documented by: SHIV Metoprolol Tartrate (Metoprolol Tartrate 25 Mg Tablet) 75 mg PO BID [facility]; Protocol Last Admin: 02/18/21 09:31 Dose: 75 mg Documented by: WENDIE Nystatin (Nystatin Oral Susp 500,000 Unit/5 Ml Oral.Susp) 500,000 unit PO QID [facility]; Protocol Stop: 02/23/21 09:44 Last Admin: 02/18/21 09:32 Dose: 500,000 unit Documented by: WENDIE Oxycodone HCl (Oxycodone Hcl Immed Release 5 Mg Tablet) 10 mg PO Q4H PRN PRN Reason: Pain, Severe (Pain Scale 7-10) Last Admin: 02/18/21 09:32 Dose: 10 mg Documented by: WENDIE Pharmacy Consult (Consult Rx Perform Med Rec) 1 each MISCELLANE ONCE PRN PRN Reason: Consult order Thiamine HCl (Thiamine Hcl 100 Mg Tablet) 100 mg PO DAILY [facility] Last Admin: 02/18/21 09:31 Dose: 100 mg Documented by: WENDIE Venlafaxine HCl (Venlafaxine Hcl Er 150 Mg Cap.Er.24h) 150 mg PO DAILY [facility] Last Admin: 02/18/21 09:31 Dose: 150 mg Documented by: WENDIE Labs CBC & Chem 7: 02/16/21 05:52 02/16/21 05:52 Assessment and Plan (1) Alcohol withdrawal: Status: Acute (2) Atrial fibrillation with RVR: Status: Acute (3) Oral thrush: Status: Acute Assessment and Plan: This is a 60-year-old male with history of atrial fibrillation on Eliquis, morbid obesity, dyslipidemia, alcohol abuse who presented on 02/08 with chest pain, abdominal pain, nausea, vomiting. He was acutely intoxicated with alcohol, and noted to be in atrial fibrillation with rapid ventricular response. Workup in the emergency department was significant for strangulated hernia and he was admitted to the surgical service and taken to the OR for emergent repair of incarcerated hernia. He remained intubated postoperatively primarily for control of alcohol withdrawal in AFib with RVR. He was extubated on February 10 and downgraded to the medical floor. Chronic atrial fibrillation rate controlled Continue lopressor 75mg bid Eliquis resumed 02/14 hypokalemia resolved Alcohol dependence with withdrawal resolved diarrhea cdif negative prn imodium mood continue effexor s/p repair of incarcerated incisional hernia management per surgical team morbid obesity bmi 41.6 s/p gastric bypass, has since gained back 100 lbs dvt ppx - eliquis Quality Stroke Does the patient have a stroke diagnosis?: No VTE Prior VTE?: No VTE Risk Level:: Surgical - high VTE Device Contraindication: N/A - Device Ordered VTE Drug Contraindication: N/A - Med Ordered
[2021-02-18] MEDS: HYDROmorphone HCl 0.5 MG/0.5 ML SYRINGE IVPUSH (12:48)
--- NOTE | 2021-02-18 13:21 | PM.PNGS ---
Subjective Subjective Date of Service: 02/18/21 Interval history: No new complaints. Reports incision area is still quite sore. Tolerating solid diet. Looking forward to rehab transfer. Physical Exam Vital Signs: Vital Signs: Last Vital Signs Temp 98.1 F 02/18/21 11:48 Pulse 84 02/18/21 11:48 Resp 18 02/18/21 11:48 BP 165/99 H 02/18/21 11:48 Pulse Ox 97 02/18/21 11:48 Body Mass Index 41.5 Const: General: cooperative, no acute distress and well developed Resp: Effort & Inspection: normal respiratory effort Auscultation: clear to auscultation bilaterally Cardio: Rate: regular rate Rhythm: regular rhythm GI: Other: Slightly round, soft, incision clean dry and intact, bowel sounds active, tender centrally in area of incision Objective Data Active Medications Apixaban (Apixaban 5 Mg Tablet) 5 mg PO BID [facility] Last Admin: 02/18/21 09:31 Dose: 5 mg Documented by: WENDIE Folic Acid (Folic Acid 1 Mg Tablet) 1 mg PO DAILY [facility] Last Admin: 02/18/21 09:31 Dose: 1 mg Documented by: WENDIE Hydromorphone HCl (Hydromorphone Hcl 0.5 Mg/0.5 Ml Syringe) 0.5 mg IVPUSH Q4H PRN; Protocol PRN Reason: Pain, Moderate (Pain Scale 4-6 Last Admin: 02/18/21 12:48 Dose: 0.5 mg Documented by: WENDIE Loperamide HCl (Loperamide Hcl 2 Mg Capsule) 4 mg PO Q6H PRN PRN Reason: Diarrhea Last Admin: 02/16/21 03:35 Dose: 4 mg Documented by: MENDEZ Lorazepam (Lorazepam 2 Mg/Ml Vial) 0.25 mg IVPUSH Q6H PRN PRN Reason: Alcohol Withdrawal Last Admin: 02/14/21 12:59 Dose: 0.25 mg Documented by: MARIA ELENA Lorazepam (Lorazepam 1 Mg Tablet) 1 mg PO Q4H PRN PRN Reason: anxiety Last Admin: 02/15/21 12:48 Dose: 1 mg Documented by: SHIV Metoprolol Tartrate (Metoprolol Tartrate 25 Mg Tablet) 75 mg PO BID [facility]; Protocol Last Admin: 02/18/21 09:31 Dose: 75 mg Documented by: WENDIE Nystatin (Nystatin Oral Susp 500,000 Unit/5 Ml Oral.Susp) 500,000 unit PO QID [facility]; Protocol Stop: 02/23/21 09:44 Last Admin: 02/18/21 09:32 Dose: 500,000 unit Documented by: WENDIE Oxycodone HCl (Oxycodone Hcl Immed Release 5 Mg Tablet) 10 mg PO Q4H PRN PRN Reason: Pain, Severe (Pain Scale 7-10) Last Admin: 02/18/21 09:32 Dose: 10 mg Documented by: WENDIE Pharmacy Consult (Consult Rx Perform Med Rec) 1 each MISCELLANE ONCE PRN PRN Reason: Consult order Thiamine HCl (Thiamine Hcl 100 Mg Tablet) 100 mg PO DAILY [facility] Last Admin: 02/18/21 09:31 Dose: 100 mg Documented by: WENDIE Venlafaxine HCl (Venlafaxine Hcl Er 150 Mg Cap.Er.24h) 150 mg PO DAILY [facility] Last Admin: 02/18/21 09:31 Dose: 150 mg Documented by: WENDIE Labs CBC & Chem 7: 02/16/21 05:52 02/16/21 05:52 Procedures Date of Service Date of Service: 02/18/21 Progress Note: A&P Assessment and plan (1) Incarcerated incisional hernia: Status: Acute Assessment and Plan: He appears stable following repair of incarcerated incisional hernia. Tolerating solid diet. Ambulate with assist as tolerated. Transfer to short-term rehabilitation once bed is available. Fall Risk Details Current Medications: Current Medications Apixaban (Apixaban 5 Mg Tablet) 5 mg PO BID [facility] Last Admin: 02/18/21 09:31 Dose: 5 mg Documented by: Folic Acid (Folic Acid 1 Mg Tablet) 1 mg PO DAILY [facility] Last Admin: 02/18/21 09:31 Dose: 1 mg Documented by: Hydromorphone HCl (Hydromorphone Hcl 0.5 Mg/0.5 Ml Syringe) 0.5 mg IVPUSH Q4H PRN; Protocol PRN Reason: Pain, Moderate (Pain Scale 4-6 Last Admin: 02/18/21 12:48 Dose: 0.5 mg Documented by: Loperamide HCl (Loperamide Hcl 2 Mg Capsule) 4 mg PO Q6H PRN PRN Reason: Diarrhea Last Admin: 02/16/21 03:35 Dose: 4 mg Documented by: Lorazepam (Lorazepam 2 Mg/Ml Vial) 0.25 mg IVPUSH Q6H PRN PRN Reason: Alcohol Withdrawal Last Admin: 02/14/21 12:59 Dose: 0.25 mg Documented by: Lorazepam (Lorazepam 1 Mg Tablet) 1 mg PO Q4H PRN PRN Reason: anxiety Last Admin: 02/15/21 12:48 Dose: 1 mg Documented by: Metoprolol Tartrate (Metoprolol Tartrate 25 Mg Tablet) 75 mg PO BID [facility]; Protocol Last Admin: 02/18/21 09:31 Dose: 75 mg Documented by: Nystatin (Nystatin Oral Susp 500,000 Unit/5 Ml Oral.Susp) 500,000 unit PO QID [facility]; Protocol Stop: 02/23/21 09:44 Last Admin: 02/18/21 09:32 Dose: 500,000 unit Documented by: Oxycodone HCl (Oxycodone Hcl Immed Release 5 Mg Tablet) 10 mg PO Q4H PRN PRN Reason: Pain, Severe (Pain Scale 7-10) Last Admin: 02/18/21 09:32 Dose: 10 mg Documented by: Pharmacy Consult (Consult Rx Perform Med Rec) 1 each MISCELLANE ONCE PRN PRN Reason: Consult order Thiamine HCl (Thiamine Hcl 100 Mg Tablet) 100 mg PO DAILY [facility] Last Admin: 02/18/21 09:31 Dose: 100 mg Documented by: Venlafaxine HCl (Venlafaxine Hcl Er 150 Mg Cap.Er.24h) 150 mg PO DAILY [facility] Last Admin: 02/18/21 09:31 Dose: 150 mg Documented by: Time Spent With Patient Time: Total time spent is greater than 50% in coordination of care (as documented) at patient's floor/unit and/or counseling patient: Time with patient: less than 15 minutes Quality Stroke Does the patient have a stroke diagnosis?: No VTE Prior VTE?: No VTE Risk Level:: Surgical - high VTE Device Contraindication: N/A - Device Ordered VTE Drug Contraindication: N/A - Med Ordered
[2021-02-19] VITALS (7 sets, daily range): BP systolic 157–173; BP diastolic 83–104; PULSE 77–86; RESP 17–20; TEMP 36–37; O2SAT 94–98
[2021-02-19] MEDS: oxyCODONE HCl Immed Release 5 MG TABLET 10 MG PO ×6 (01:17→22:38)
[2021-02-19] MEDS: Folic Acid 1 MG TABLET PO (07:50)
[2021-02-19] MEDS: Venlafaxine HCl ER 150 MG CAP.ER.24H PO (07:50)
[2021-02-19] MEDS: Metoprolol Tartrate 25 MG TABLET 75 MG PO ×2 (07:50→21:17)
[2021-02-19] MEDS: Thiamine HCL 100 MG TABLET PO (07:50)
[2021-02-19] MEDS: Nystatin Oral Susp 500,000 UNIT/5 ML ORAL.SUSP 500000 UNIT PO ×4 (07:50→21:18)
[2021-02-19] MEDS: Apixaban 5 MG TABLET PO ×2 (07:51→21:17)
--- NOTE | 2021-02-19 10:05 | P.PNIM_ITS ---
Subjective Subjective Date of Service: 02/19/21 Interval History: cc: abd pain interval history: feels well Cardiovascular Cardiovascular: Reports no additional cardiovascular complaints Gastrointestinal Gastrointestinal: Reports no additional gastrointestinal complaints Physical Exam Vital Signs: Vital Signs: Last Vital Signs Temp 96.8 F 02/19/21 07:42 Pulse 80 02/19/21 07:50 Resp 18 02/19/21 07:42 BP 159/104 H 02/19/21 07:50 Pulse Ox 96 02/19/21 07:42 Body Mass Index 41.5 General: AO X 3, no acute distress, Resp:? CTA bilateral, no accessory muscles used CVS: S1,S2,RRR GI: soft, non tender, non distended Neuro:? motor grossly intact, alert Psych: appropriate affect, appropriate insight? Objective Data Active Medications Apixaban (Apixaban 5 Mg Tablet) 5 mg PO BID [facility] Last Admin: 02/19/21 07:51 Dose: 5 mg Documented by: WENDIE Folic Acid (Folic Acid 1 Mg Tablet) 1 mg PO DAILY [facility] Last Admin: 02/19/21 07:50 Dose: 1 mg Documented by: WENDIE Hydromorphone HCl (Hydromorphone Hcl 0.5 Mg/0.5 Ml Syringe) 0.5 mg IVPUSH Q4H PRN; Protocol PRN Reason: Pain, Moderate (Pain Scale 4-6 Last Admin: 02/18/21 12:48 Dose: 0.5 mg Documented by: WENDIE Loperamide HCl (Loperamide Hcl 2 Mg Capsule) 4 mg PO Q6H PRN PRN Reason: Diarrhea Last Admin: 02/16/21 03:35 Dose: 4 mg Documented by: MENDEZ Lorazepam (Lorazepam 2 Mg/Ml Vial) 0.25 mg IVPUSH Q6H PRN PRN Reason: Alcohol Withdrawal Last Admin: 02/14/21 12:59 Dose: 0.25 mg Documented by: MARIA ELENA Lorazepam (Lorazepam 1 Mg Tablet) 1 mg PO Q4H PRN PRN Reason: anxiety Last Admin: 02/15/21 12:48 Dose: 1 mg Documented by: SHIV Metoprolol Tartrate (Metoprolol Tartrate 25 Mg Tablet) 75 mg PO BID [facility]; Protocol Last Admin: 02/19/21 07:50 Dose: 75 mg Documented by: WENDIE Nystatin (Nystatin Oral Susp 500,000 Unit/5 Ml Oral.Susp) 500,000 unit PO QID [facility]; Protocol Stop: 02/23/21 09:44 Last Admin: 02/19/21 07:50 Dose: 500,000 unit Documented by: WENDIE Oxycodone HCl (Oxycodone Hcl Immed Release 5 Mg Tablet) 10 mg PO Q4H PRN PRN Reason: Pain, Severe (Pain Scale 7-10) Last Admin: 02/19/21 10:02 Dose: 10 mg Documented by: WENDIE Pharmacy Consult (Consult Rx Perform Med Rec) 1 each MISCELLANE ONCE PRN PRN Reason: Consult order Thiamine HCl (Thiamine Hcl 100 Mg Tablet) 100 mg PO DAILY [facility] Last Admin: 02/19/21 07:50 Dose: 100 mg Documented by: WENDIE Venlafaxine HCl (Venlafaxine Hcl Er 150 Mg Cap.Er.24h) 150 mg PO DAILY [facility] Last Admin: 02/19/21 07:50 Dose: 150 mg Documented by: WENDIE Labs CBC & Chem 7: 02/16/21 05:52 02/16/21 05:52 Assessment and Plan (1) Alcohol withdrawal: Status: Acute (2) Atrial fibrillation with RVR: Status: Acute (3) Oral thrush: Status: Acute Assessment and Plan: This is a 60-year-old male with history of atrial fibrillation on Eliquis, morbid obesity, dyslipidemia, alcohol abuse who presented on 02/08 with chest pain, abdominal pain, nausea, vomiting. He was acutely intoxicated with alcohol, and noted to be in atrial fibrillation with rapid ventricular response. Workup in the emergency department was significant for strangulated hernia and he was admitted to the surgical service and taken to the OR for emergent repair of incarcerated hernia. He remained intubated postoperatively primarily for control of alcohol withdrawal in AFib with RVR. He was extubated on February 10 and downgraded to the medical floor. Chronic atrial fibrillation rate controlled Continue lopressor 75mg bid Eliquis resumed 02/14 HTN elevated, will restart diltiazem cd 240mg daily monitor hypokalemia resolved Alcohol dependence with withdrawal resolved diarrhea cdif negative prn imodium mood continue effexor s/p repair of incarcerated incisional hernia management per surgical team morbid obesity bmi 41.6 s/p gastric bypass, has since gained back 100 lbs dvt ppx - eliquis Quality Stroke Does the patient have a stroke diagnosis?: No VTE Prior VTE?: No VTE Risk Level:: Surgical - high VTE Device Contraindication: N/A - Device Ordered VTE Drug Contraindication: N/A - Med Ordered
--- NOTE | 2021-02-19 13:09 | PM.PNGS ---
Subjective Subjective Date of Service: 02/19/21 Interval history: No new complaints. Continues to have incisional soreness. Would like to get out of bed, but afraid to do so without assistance of physical therapy. Physical Exam Vital Signs: Vital Signs: Last Vital Signs Temp 98.6 F 02/19/21 11:35 Pulse 86 02/19/21 11:35 Resp 18 02/19/21 11:35 BP 157/104 H 02/19/21 11:35 Pulse Ox 98 02/19/21 11:35 Body Mass Index 41.5 Const: General: cooperative, alert and awake Resp: Effort & Inspection: normal respiratory effort Auscultation: clear to auscultation bilaterally Cardio: Rate: regular rate Rhythm: regular rhythm GI: Other: Round, soft, mildly tender centrally in area of midline incision. Incision clean dry and intact. Bowel sounds active. Skin: Other: Warm and dry General skin exam: no rashes or lesions noted Objective Data Active Medications Apixaban (Apixaban 5 Mg Tablet) 5 mg PO BID [facility] Last Admin: 02/19/21 07:51 Dose: 5 mg Documented by: WENDIE Diltiazem HCl (Diltiazem Hcl Cd 240 Mg Cap.Er.Deg) 240 mg PO DAILY [facility]; Protocol Folic Acid (Folic Acid 1 Mg Tablet) 1 mg PO DAILY [facility] Last Admin: 02/19/21 07:50 Dose: 1 mg Documented by: WENDIE Hydromorphone HCl (Hydromorphone Hcl 0.5 Mg/0.5 Ml Syringe) 0.5 mg IVPUSH Q4H PRN; Protocol PRN Reason: Pain, Moderate (Pain Scale 4-6 Last Admin: 02/18/21 12:48 Dose: 0.5 mg Documented by: WENDIE Loperamide HCl (Loperamide Hcl 2 Mg Capsule) 4 mg PO Q6H PRN PRN Reason: Diarrhea Last Admin: 02/16/21 03:35 Dose: 4 mg Documented by: MENDEZ Lorazepam (Lorazepam 2 Mg/Ml Vial) 0.25 mg IVPUSH Q6H PRN PRN Reason: Alcohol Withdrawal Last Admin: 02/14/21 12:59 Dose: 0.25 mg Documented by: MARIA ELENA Lorazepam (Lorazepam 1 Mg Tablet) 1 mg PO Q4H PRN PRN Reason: anxiety Last Admin: 02/15/21 12:48 Dose: 1 mg Documented by: SHIV Metoprolol Tartrate (Metoprolol Tartrate 25 Mg Tablet) 75 mg PO BID [facility]; Protocol Last Admin: 02/19/21 07:50 Dose: 75 mg Documented by: WENIDE Nystatin (Nystatin Oral Susp 500,000 Unit/5 Ml Oral.Susp) 500,000 unit PO QID [facility]; Protocol Stop: 02/23/21 09:44 Last Admin: 02/19/21 07:50 Dose: 500,000 unit Documented by: WENDIE Oxycodone HCl (Oxycodone Hcl Immed Release 5 Mg Tablet) 10 mg PO Q4H PRN PRN Reason: Pain, Severe (Pain Scale 7-10) Last Admin: 02/19/21 10:02 Dose: 10 mg Documented by: WENDIE Pharmacy Consult (Consult Rx Perform Med Rec) 1 each MISCELLANE ONCE PRN PRN Reason: Consult order Thiamine HCl (Thiamine Hcl 100 Mg Tablet) 100 mg PO DAILY [facility] Last Admin: 02/19/21 07:50 Dose: 100 mg Documented by: WENDIE Venlafaxine HCl (Venlafaxine Hcl Er 150 Mg Cap.Er.24h) 150 mg PO DAILY [facility] Last Admin: 02/19/21 07:50 Dose: 150 mg Documented by: WENDIE Labs CBC & Chem 7: 02/16/21 05:52 02/16/21 05:52 Procedures Date of Service Date of Service: 02/19/21 Progress Note: A&P Assessment and plan (1) Incarcerated incisional hernia: Status: Acute (2) Morbid obesity: Status: Acute Assessment and Plan: 60-year-old male with history of heart failure, atrial fibrillation, morbid obesity and alcohol use disorder, presented with incarcerated incisional hernia, now status post repair and awaiting transfer to short-term rehabilitation. Continue physical therapy. Hypertension-diltiazem restarted today Fall Risk Details Current Medications: Current Medications Apixaban (Apixaban 5 Mg Tablet) 5 mg PO BID [facility] Last Admin: 02/19/21 07:51 Dose: 5 mg Documented by: Diltiazem HCl (Diltiazem Hcl Cd 240 Mg Cap.Er.Deg) 240 mg PO DAILY [facility]; Protocol Folic Acid (Folic Acid 1 Mg Tablet) 1 mg PO DAILY [facility] Last Admin: 02/19/21 07:50 Dose: 1 mg Documented by: Hydromorphone HCl (Hydromorphone Hcl 0.5 Mg/0.5 Ml Syringe) 0.5 mg IVPUSH Q4H PRN; Protocol PRN Reason: Pain, Moderate (Pain Scale 4-6 Last Admin: 02/18/21 12:48 Dose: 0.5 mg Documented by: Loperamide HCl (Loperamide Hcl 2 Mg Capsule) 4 mg PO Q6H PRN PRN Reason: Diarrhea Last Admin: 02/16/21 03:35 Dose: 4 mg Documented by: Lorazepam (Lorazepam 2 Mg/Ml Vial) 0.25 mg IVPUSH Q6H PRN PRN Reason: Alcohol Withdrawal Last Admin: 02/14/21 12:59 Dose: 0.25 mg Documented by: Lorazepam (Lorazepam 1 Mg Tablet) 1 mg PO Q4H PRN PRN Reason: anxiety Last Admin: 02/15/21 12:48 Dose: 1 mg Documented by: Metoprolol Tartrate (Metoprolol Tartrate 25 Mg Tablet) 75 mg PO BID [facility]; Protocol Last Admin: 02/19/21 07:50 Dose: 75 mg Documented by: Nystatin (Nystatin Oral Susp 500,000 Unit/5 Ml Oral.Susp) 500,000 unit PO QID [facility]; Protocol Stop: 02/23/21 09:44 Last Admin: 02/19/21 07:50 Dose: 500,000 unit Documented by: Oxycodone HCl (Oxycodone Hcl Immed Release 5 Mg Tablet) 10 mg PO Q4H PRN PRN Reason: Pain, Severe (Pain Scale 7-10) Last Admin: 02/19/21 10:02 Dose: 10 mg Documented by: Pharmacy Consult (Consult Rx Perform Med Rec) 1 each MISCELLANE ONCE PRN PRN Reason: Consult order Thiamine HCl (Thiamine Hcl 100 Mg Tablet) 100 mg PO DAILY [facility] Last Admin: 02/19/21 07:50 Dose: 100 mg Documented by: Venlafaxine HCl (Venlafaxine Hcl Er 150 Mg Cap.Er.24h) 150 mg PO DAILY [facility] Last Admin: 02/19/21 07:50 Dose: 150 mg Documented by: Time Spent With Patient Time: Total time spent is greater than 50% in coordination of care (as documented) at patient's floor/unit and/or counseling patient: Time with patient: less than 15 minutes Quality Stroke Does the patient have a stroke diagnosis?: No VTE Prior VTE?: No VTE Risk Level:: Surgical - high VTE Device Contraindication: N/A - Device Ordered VTE Drug Contraindication: N/A - Med Ordered
--- NOTE | 2021-02-19 19:34 | MHC.HEMONC ---
Patient called at 15:30 that his PICC line got dislodged/removed. Pressure dressing was applied to the site (neck). Both MD and nurse supervisor heading aware.
[2021-02-20] VITALS: BP 161/100; PULSE 82; RESP 18; TEMP 36.4; O2SAT 97
[2021-02-20] MEDS: oxyCODONE HCl Immed Release 5 MG TABLET 10 MG PO ×5 (02:37→17:56)
[2021-02-20 04:00] VITALS: BP 171/104; PULSE 80; RESP 20; TEMP 36.1; O2SAT 97
[2021-02-20 07:40] VITALS: BP 165/107; PULSE 88; RESP 18; TEMP 37.2; O2SAT 96
--- NOTE | 2021-02-20 08:50 | P.PNIM_ITS ---
Subjective Subjective Date of Service: 02/20/21 Interval History: cc: abd pain interval history: feels well Cardiovascular Cardiovascular: Reports no additional cardiovascular complaints Respiratory Respiratory: Reports no additional respiratory complaints Physical Exam Vital Signs: Vital Signs: Last Vital Signs Temp 98.9 F 02/20/21 07:40 Pulse 88 02/20/21 07:40 Resp 18 02/20/21 07:40 BP 165/107 H 02/20/21 07:40 Pulse Ox 96 02/20/21 07:40 Body Mass Index 41.5 General: AO X 3, no acute distress, Resp:? CTA bilateral, no accessory muscles used CVS: S1,S2,RRR GI: soft, non tender, non distended Neuro:? motor grossly intact, alert Psych: appropriate affect, appropriate insight? Objective Data Active Medications Apixaban (Apixaban 5 Mg Tablet) 5 mg PO BID [facility] Last Admin: 02/19/21 21:17 Dose: 5 mg Documented by: YFN Diltiazem HCl (Diltiazem Hcl Cd 240 Mg Cap.Er.Deg) 240 mg PO DAILY [facility]; Protocol Folic Acid (Folic Acid 1 Mg Tablet) 1 mg PO DAILY [facility] Last Admin: 02/19/21 07:50 Dose: 1 mg Documented by: WENDIE Loperamide HCl (Loperamide Hcl 2 Mg Capsule) 4 mg PO Q6H PRN PRN Reason: Diarrhea Last Admin: 02/16/21 03:35 Dose: 4 mg Documented by: MENDEZ Lorazepam (Lorazepam 2 Mg/Ml Vial) 0.25 mg IVPUSH Q6H PRN PRN Reason: Alcohol Withdrawal Last Admin: 02/14/21 12:59 Dose: 0.25 mg Documented by: CORNELIOEHBRENDAC Lorazepam (Lorazepam 1 Mg Tablet) 1 mg PO Q4H PRN PRN Reason: anxiety Last Admin: 02/15/21 12:48 Dose: 1 mg Documented by: SHIV Metoprolol Tartrate (Metoprolol Tartrate 25 Mg Tablet) 75 mg PO BID [facility]; Protocol Last Admin: 02/19/21 21:17 Dose: 75 mg Documented by: YFN Nystatin (Nystatin Oral Susp 500,000 Unit/5 Ml Oral.Susp) 500,000 unit PO QID [facility]; Protocol Stop: 02/23/21 09:44 Last Admin: 02/19/21 21:18 Dose: 500,000 unit Documented by: YFN Oxycodone HCl (Oxycodone Hcl Immed Release 5 Mg Tablet) 10 mg PO Q4H PRN PRN Reason: Pain, Severe (Pain Scale 7-10) Last Admin: 02/20/21 06:44 Dose: 10 mg Documented by: CHARITY Pharmacy Consult (Consult Rx Perform Med Rec) 1 each MISCELLANE ONCE PRN PRN Reason: Consult order Thiamine HCl (Thiamine Hcl 100 Mg Tablet) 100 mg PO DAILY [facility] Last Admin: 02/19/21 07:50 Dose: 100 mg Documented by: WENDIE Venlafaxine HCl (Venlafaxine Hcl Er 150 Mg Cap.Er.24h) 150 mg PO DAILY [facility] Last Admin: 02/19/21 07:50 Dose: 150 mg Documented by: WENDIE Labs CBC & Chem 7: 02/16/21 05:52 02/16/21 05:52 Assessment and Plan (1) Alcohol withdrawal: Status: Acute (2) Atrial fibrillation with RVR: Status: Acute (3) Oral thrush: Status: Acute Assessment and Plan: This is a 60-year-old male with history of atrial fibrillation on Eliquis, morbid obesity, dyslipidemia, alcohol abuse who presented on 02/08 with chest pain, abdominal pain, nausea, vomiting. He was acutely intoxicated with alcohol, and noted to be in atrial fibrillation with rapid ventricular response. Workup in the emergency department was significant for strangulated hernia and he was admitted to the surgical service and taken to the OR for emergent repair of incarcerated hernia. He remained intubated postoperatively primarily for control of alcohol withdrawal in AFib with RVR. He was extubated on February 10 and downgraded to the medical floor. Chronic atrial fibrillation rate controlled Continue lopressor 75mg bid Eliquis resumed 02/14 HTN elevated, restarted diltiazem cd 240mg daily monitor hypokalemia resolved Alcohol dependence with withdrawal resolved diarrhea cdif negative prn imodium mood continue effexor s/p repair of incarcerated incisional hernia management per surgical team morbid obesity bmi 41.6 s/p gastric bypass, has since gained back 100 lbs dvt ppx - eliquis Quality Stroke Does the patient have a stroke diagnosis?: No VTE Prior VTE?: No VTE Risk Level:: Surgical - high VTE Device Contraindication: N/A - Device Ordered VTE Drug Contraindication: N/A - Med Ordered
--- NOTE | 2021-02-20 09:12 | P.PNGS_ITS ---
Subjective Subjective Date of Service: 02/20/21 Interval history: Minimal abdominal pain, denies diarrhea, nausea, vomiting. Tolerating regular diet without increased pain. Physical Exam Vital Signs: Vital Signs: Last Vital Signs Temp 98.9 F 02/20/21 07:40 Pulse 88 02/20/21 07:40 Resp 18 02/20/21 07:40 BP 165/107 H 02/20/21 07:40 Pulse Ox 96 02/20/21 07:40 Body Mass Index 41.5 Const: General: comfortable and no acute distress Nutritional Appearance: obese Orientation/consciousness: patient oriented x3 Limitations: no limitations Resp: Effort & Inspection: normal respiratory effort, no audible wheezes, no cough and no respiratory distress GI: Inspection: Yes normal to inspection and Yes incision (C,D,I) Palpation (GI): Soft to palpation, nontender, no guarding and not rigid Skin: General skin exam: no rashes or lesions noted, no ecchymosis and no erythema Neuro: General: patient oriented x3 Extrem: General: Yes normal to inspection and Yes no clubbing, cyanosis or edema Objective Data Active Medications Apixaban (Apixaban 5 Mg Tablet) 5 mg PO BID [facility] BEDS AT [facility] Last Admin: 02/19/21 21:17 Dose: 5 mg Documented by: YFN Diltiazem HCl (Diltiazem Hcl Cd 240 Mg Cap.Er.Deg) 240 mg PO DAILY [facility] 234 BEDS AT [facility]; Protocol Folic Acid (Folic Acid 1 Mg Tablet) 1 mg PO DAILY [facility] 234 BEDS AT [facility] Last Admin: 02/19/21 07:50 Dose: 1 mg Documented by: WENDIE Loperamide HCl (Loperamide Hcl 2 Mg Capsule) 4 mg PO Q6H PRN PRN Reason: Diarrhea Last Admin: 02/16/21 03:35 Dose: 4 mg Documented by: MENDEZ Lorazepam (Lorazepam 2 Mg/Ml Vial) 0.25 mg IVPUSH Q6H PRN PRN Reason: Alcohol Withdrawal Last Admin: 02/14/21 12:59 Dose: 0.25 mg Documented by: MARIA ELENA Lorazepam (Lorazepam 1 Mg Tablet) 1 mg PO Q4H PRN PRN Reason: anxiety Last Admin: 02/15/21 12:48 Dose: 1 mg Documented by: SHIV Metoprolol Tartrate (Metoprolol Tartrate 25 Mg Tablet) 75 mg PO BID [facility]CLUDE 234 BEDS AT [facility]; Protoc ol Last Admin: 02/19/21 21:17 Dose: 75 mg Documented by: YFN Nystatin (Nystatin Oral Susp 500,000 Unit/5 Ml Oral.Susp) 500,000 unit PO QID [facility] 234 BEDS AT [facility]; Protocol Stop: 02/23/21 09:44 Last Admin: 02/19/21 21:18 Dose: 500,000 unit Documented by: YFN Oxycodone HCl (Oxycodone Hcl Immed Release 5 Mg Tablet) 10 mg PO Q4H PRN PRN Reason: Pain, Severe (Pain Scale 7-10) Last Admin: 02/20/21 06:44 Dose: 10 mg Documented by: CHARITY Pharmacy Consult (Consult Rx Perform Med Rec) 1 each MISCELLANE ONCE PRN PRN Reason: Consult order Thiamine HCl (Thiamine Hcl 100 Mg Tablet) 100 mg PO DAILY [facility] 234 BEDS AT [facility] Last Admin: 02/19/21 07:50 Dose: 100 mg Documented by: WENDIE Venlafaxine HCl (Venlafaxine Hcl Er 150 Mg Cap.Er.24h) 150 mg PO DAILY [facility] 234 BEDS AT [facility] Last Admin: 02/19/21 07:50 Dose: 150 mg Documented by: WENDIE Labs CBC & Chem 7: 02/16/21 05:52 02/16/21 05:52 Procedures Date of Service Date of Service: 02/20/21 Progress Note: A&P Assessment and plan (1) Incarcerated incisional hernia: Status: Acute (2) Alcohol withdrawal: Status: Acute (3) Atrial fibrillation with RVR: Status: Acute Assessment and Plan: Patient remains hemodynamically stable incision, incision is clean, dry, and intact without evidence of recurrence hernia. Patient is tolerating regular diet without issues. Patient is awaiting placement and short-term rehab. He should continue physical therapy in the meantime. Fall Risk Details Current Medications: Current Medications Apixaban (Apixaban 5 Mg Tablet) 5 mg PO BID [facility]CLUDE 234 BEDS AT [facility] Last Admin: 02/19/21 21:17 Dose: 5 mg Documented by: Diltiazem HCl (Diltiazem Hcl Cd 240 Mg Cap.Er.Deg) 240 mg PO DAILY [facility] 234 BEDS AT [facility]; Protocol Folic Acid (Folic Acid 1 Mg Tablet) 1 mg PO DAILY [facility] 234 BEDS AT [facility] Last Admin: 02/19/21 07:50 Dose: 1 mg Documented by: Loperamide HCl (Loperamide Hcl 2 Mg Capsule) 4 mg PO Q6H PRN PRN Reason: Diarrhea Last Admin: 02/16/21 03:35 Dose: 4 mg Documented by: Lorazepam (Lorazepam 2 Mg/Ml Vial) 0.25 mg IVPUSH Q6H PRN PRN Reason: Alcohol Withdrawal Last Admin: 02/14/21 12:59 Dose: 0.25 mg Documented by: Lorazepam (Lorazepam 1 Mg Tablet) 1 mg PO Q4H PRN PRN Reason: anxiety Last Admin: 02/15/21 12:48 Dose: 1 mg Documented by: Metoprolol Tartrate (Metoprolol Tartrate 25 Mg Tablet) 75 mg PO BID [facility]S INCLUDE 234 BEDS AT THE [facility]; Antoinette col Last Admin: 02/19/21 21:17 Dose: 75 mg Documented by: Nystatin (Nystatin Oral Susp 500,000 Unit/5 Ml Oral.Susp) 500,000 unit PO QID [facility]CLUDE 234 BEDS AT THE [facility]; Protocol Stop: 02/23/21 09:44 Last Admin: 02/19/21 21:18 Dose: 500,000 unit Documented by: Oxycodone HCl (Oxycodone Hcl Immed Release 5 Mg Tablet) 10 mg PO Q4H PRN PRN Reason: Pain, Severe (Pain Scale 7-10) Last Admin: 02/20/21 06:44 Dose: 10 mg Documented by: Pharmacy Consult (Consult Rx Perform Med Rec) 1 each MISCELLANE ONCE PRN PRN Reason: Consult order Thiamine HCl (Thiamine Hcl 100 Mg Tablet) 100 mg PO DAILY [facility]CLUDE 234 BEDS AT [facility] Last Admin: 02/19/21 07:50 Dose: 100 mg Documented by: Venlafaxine HCl (Venlafaxine Hcl Er 150 Mg Cap.Er.24h) 150 mg PO DAILY [facility]CLUDE 234 BEDS AT [facility] Last Admin: 02/19/21 07:50 Dose: 150 mg Documented by: Time Spent With Patient Time: Total time spent is greater than 50% in coordination of care (as documented) at patient's floor/unit and/or counseling patient: Time with patient: 15 - 24 minutes Quality Stroke Does the patient have a stroke diagnosis?: No VTE Prior VTE?: No VTE Risk Level:: Surgical - high VTE Device Contraindication: N/A - Device Ordered VTE Drug Contraindication: N/A - Med Ordered
[2021-02-20] MEDS: Venlafaxine HCl ER 150 MG CAP.ER.24H PO (09:48)
[2021-02-20] MEDS: Folic Acid 1 MG TABLET PO (09:48)
[2021-02-20] MEDS: Nystatin Oral Susp 500,000 UNIT/5 ML ORAL.SUSP 500000 UNIT PO ×3 (09:48→17:09)
[2021-02-20] MEDS: Apixaban 5 MG TABLET PO (09:48)
[2021-02-20] MEDS: Thiamine HCL 100 MG TABLET PO (09:48)
[2021-02-20] MEDS: Metoprolol Tartrate 25 MG TABLET 75 MG PO (09:48)
[2021-02-20] MEDS: dilTIAZem HCL CD 240 MG CAP.ER.DEG PO (09:48)
[2021-02-20 09:52] VITALS: BP 165/107; PULSE 88; O2SAT 96
[2021-02-20 11:41] VITALS: BP 142/88; PULSE 75; RESP 18; TEMP 36.3; O2SAT 97
--- NOTE | 2021-02-20 12:23 | MHC.CM.PN ---
Addendum entered by Valencia Schaeffer 02/20/21 16:10: PT WILL DC AT 1800 HOURS TO [facility] DC SUMMARY SENT VIA [facility] TRANSPORT ARRANGED Addendum entered by Valencia Schaeffer 02/20/21 14:19: CM SPOKE TO PT WHO REPORTS HIS FIRST CHOICE FACILITY IS [facility]. [facility] IS OFFERING A BED PENDING A NEW COVID SWAB. PT IS AWARE HE WILL DC TO [facility] TODAY VIA BLS TIME TBD Original Note: CM RECEIVED A MESSAGE FROM [facility] THIS MORNING INDICATING THE DON HAD REVIEWED AND DETERMINED THEY WOULD NOT BE ABLE TO OFFER PT A BED. UPDATES WERE ATTACHED AND THE REFERRAL WAS RESENT TO ALL AREA STRS
--- NOTE | 2021-02-20 14:13 | PM.DS ---
DS: Providers Provider Date of Service: 02/18/21 <Iman Conway PA-C - Last Filed: 02/17/21 14:42> Date of admission: 02/08/21 16:01 <Iman Conway PA-C - Last Filed: 02/17/21 14:42> Primary care physician: Bambi Kim MD <Iman Conway PA-C - Last Filed: 02/17/21 14:42> Attending physician on admission: Parker Blunt <Iman Conway PA-C - Last Filed: 02/17/21 14:42> Consults: 02/08/21 08:54 Consult to Cardiology Routine Consulting Provider: Jose Huff Reason for consultation: chest pain, AFIB with RVR, and needs preo-op clearance Has provider been notified: No 02/12/21 13:56 Consult to Hospitalist Routine Consulting Provider: Hospitalist Reason For Exam: help w med issues- text Dr Doe 02/12/21 16:50 Consult to Care Team Routine Comment: Reason for consultation: alcohol abuse/withdrawal <Iman Conway PA-C - Last Filed: 02/17/21 14:42> DS: Transfer Hospital Acceptance Reason for Transfer: s/p repair of incarcerated incisional hernias requiring intubation post op for 3 days due to medical comorbidities and alcohol withdrawal; deconditioned <Iman Conway PA-C - Last Filed: 02/17/21 14:42> DS: Diagnosis Discharge Diagnosis (1) Alcohol withdrawal: Status: Acute <Iman Conway PA-C - Last Filed: 02/17/21 14:42> (2) Atrial fibrillation with RVR: Status: Acute <Iman Conway PA-C - Last Filed: 02/17/21 14:42> (3) Oral thrush: Status: Acute <mIan Conway PA-C - Last Filed: 02/17/21 14:42> DS: Summary Hospital Course Hospital Course: BRIEF HPI: 60-year-old male patient with multiple medical problems including AFib with a rapid ventricular response, alcohol intoxication, morbid obesity presenting with an incarcerated incisional/Ovalle's hernia in the upper midline.? Patient has an elevated lactate level which may indicate bowel ischemia/necrosis.? Patient will need an emergent repair of incisional hernia with possible bowel resection.? I reviewed the procedure, risks, and alternatives with the patient he consents to the surgery.? He has been added onto the operative schedule for today.? Patient is at high risk due to his multiple co-morbidities with surgery is necessary to prevent bowel perforation. HOSPITAL COURSE: On 02/08/21, repair of incarcerated incisional hernias was performed by Dr. Blunt without complication. Intraoperative findings included an incarcerated incisional hernia with multiple defects involving the upper midline abdomen.? Ovalle's hernia was identified but bowel remained viable without evidence of necrosis. The patient was transferred to ICU intubated with plans to keep intubated for 24-48h largely on the basis of comorbidities including his rapid atrial fibrillation along with his alcohol withdrawal. The patient had no acute surgical issues post operatively and a fairly uncomplicated recovery course. He remained intubated for 2 days post op. On Feb 10, his sedation was weaned. He had good cognitive function and no signs of alcohol withdrawal?and was therefore extubated. He remained stable and was transferred to the medical/surgical floor. He was started on scheduled ativan for withdrawal which was eventually changed to PRN. He was also seen by the CARE/recovery team regarding his alcohol abuse during his stay. Hospitalist consult was obtained for management of his medical comorbidities. He was started on nystatin for oral thrush. He was started on metoprolol 25 mg PO BID which was titrated up to metoprolol 75mg PO BID with good HR control. His home diltiazem was held. His eliquis was resumed. He was started on clear liquids. His PO intake remained poor because of his diarrhea. C diff was checked which was negative and he was started on PRN imodium. He was ambulated. PT consult was obtained to get the patient OOB, increase his activity and disposition planning. His PO intake began to increase as his diarrhea resolved. His diet was advanced to solid diet. His pain was well controlled on PRN analgesics. His abdomen remained benign with clean incision and no evidence of hernia recurrence. He felt ready for discharge to [facility]. He was discharged on 02/20/21 with 3 more days in his nystatin course. <Iman Conway PA-C - Last Filed: 02/17/21 14:42> Time spent discussing smoking cessation with patient: 3 to 10 minutes <Parker Blunt MD - Last Filed: 02/20/21 14:12> Status at Discharge Functional status at discharge: uses cane/walker <Iman Conway PA-C - Last Filed: 02/17/21 14:42> Overall status at discharge: patient is progressing back to baseline <Iman Conway PA-C - Last Filed: 02/17/21 14:42> Time Spent with Patient Time attestation: Total time spent providing and/or coordinating discharge services: <Iman Conway PA-C - Last Filed: 02/17/21 14:42> Discharge coordination time: Greater than 30 minutes <Iman Conway PA-C - Last Filed: 02/17/21 14:42> Quality: Stroke Does the patient have a stroke diagnosis?: No <Iman Conway PA-C - Last Filed: 02/17/21 14:42> Physical Exam Vital Signs: Vital Signs: Last Vital Signs Temp 97.6 F 02/17/21 07:44 Pulse 87 02/17/21 09:53 Resp 18 02/17/21 07:44 BP 158/96 H 02/17/21 09:53 Pulse Ox 98 02/17/21 09:53 Body Mass Index 41.5 <Iman Conway PA-C - Last Filed: 02/17/21 14:42> Const: General: comfortable, no acute distress and alert <Iman Conway PA-C - Last Filed: 02/17/21 14:42> Orientation/consciousness: patient oriented x3 <Iman Conway PA-C - Last Filed: 02/17/21 14:42> Resp: Effort & Inspection: normal respiratory effort <Iman Conway PA-C - Last Filed: 02/17/21 14:42> Cardio: Rate: regular rate <Iman Conway PA-C - Last Filed: 02/17/21 14:42> Rhythm: abnormal rhythm <Iman Conway PA-C - Last Filed: 02/17/21 14:42> GI: Inspection: No distended, Yes incision (clean) and Yes obesity <Iman Conway PA-C - Last Filed: 02/17/21 14:42> Palpation (GI): Soft to palpation, Tenderness to palpation present (GI) (very mild, incisional), no guarding and not rigid <Iman Conway PA-C - Last Filed: 02/17/21 14:42> Percussion: Yes normal to percussion <Iman Conway PA-C - Last Filed: 02/17/21 14:42> Skin: General skin exam: no rashes or lesions noted <Iman Conway PA-C - Last Filed: 02/17/21 14:42> Neuro: General: patient oriented x3 <Iman Conway PA-C - Last Filed: 02/17/21 14:42> DS: Data Data Completed and Pending Completed studies during hospitalization [Text1]: Procedures Detoxification Services for Substance Abuse Treatment (12/15/20) <Iman Conway PA-C - Last Filed: 02/17/21 14:42> Discharge Plan Discharge Patient Disposition: Xfer SNF <Iman Conway PA-C - Last Filed: 02/17/21 14:42> Discharge Diagnosis: incarcerated incisional hernias, alcohol withdrawal <Iman Conway PA-C - Last Filed: 02/17/21 14:42> incarcerated incisional hernias, alcohol withdrawal <Parker Blunt MD - Last Filed: 02/20/21 14:12> Referrals: [facility] [Other] - 1 Week Parker Blunt MD [Physician] - 1 Week Bambi Machuca MD [Primary Care Provider] - 1 Week <Iman Conway PA-C - Last Filed: 02/17/21 14:42> Discharge Medications: New metoprolol tartrate 25 mg Tablet 75 mg PO BID 60 Days Qty: 360 RF: 0 loperamide [Imodium A-D] 2 mg capsule 2 mg PO Q6H PRN (Reason: diarrhea) Qty: 30 RF: 0 nystatin 100,000 unit/mL suspension 500,000 unit PO QID 6 Days Qty: 120 RF: 0 Continued venlafaxine 75 mg Capsule,Extended Release 24hr 75 mg PO DAILY RF: 0 acamprosate 333 mg tablet,delayed release (DR/EC) 666 mg PO TID RF: 0 Viibryd 20 mg Tablet 20 mg PO DAILY RF: 0 Eliquis 5 mg tablet 5 mg PO BID 90 Days Qty: 180 RF: 3 aripiprazole [Abilify] 5 mg tablet 5 mg PO DAILY 90 Days Qty: 90 RF: 1 atorvastatin 40 mg tablet 40 mg PO BEDTIME 90 Days Qty: 90 RF: 3 venlafaxine [Effexor XR] 150 mg capsule,extended release 24hr 150 mg PO DAILY 90 Days Qty: 90 RF: 3 Held diltiazem HCl [Cardizem CD] 240 mg capsule,extended release 24hr 240 mg PO DAILY Qty: 30 RF: 5 Hold Instructions: Resume on 03/03/21. Until you follow up with PCP Discontinued metoprolol tartrate 100 mg tablet 100 mg PO TID 30 Days Qty: 90 RF: 5 <Iman Conway PA-C - Last Filed: 02/17/21 14:42> Discharge Orders: Discharge Order (Routine); Ordered 02/20/21 Ordered By: Parker Blunt <Iman Conway PA-C - Last Filed: 02/17/21 14:42> Diet: advance to usual diet <Iman Conway PA-C - Last Filed: 02/17/21 14:42> advance to usual diet <Parker Blunt MD - Last Filed: 02/20/21 14:12> Activity on Discharge: No heavy lifting <Iman Conway PA-C - Last Filed: 02/17/21 14:42> No heavy lifting <Parker Blunt MD - Last Filed: 02/20/21 14:12> Stand Alone Forms: Patient Portal Discharge page <Iman Conway PA-C - Last Filed: 02/17/21 14:42> Activity Restrictions/Additional Instructions: If the incision area is tender, you may apply an ice pack for short intervals (No more than 20 minutes on, followed by at least 20 minutes off). Do not apply heat. Do not use creams, lotions, or topical antibiotics unless instructed to do so by your surgeon. These can cause infection or allergic reaction. Ok to shower. You have atif closing your incision and these will be removed approximately 10-14 days after surgery. NO HEAVY LIFTING (>10lbs). Follow up in office. ([phone]) Call Your Doctor If: -Your temperature exceeds 101.5? F -You experience excessive pain or swelling -You have an unexpected reaction to medication -You have excessive bleeding -You experience continued vomiting/nausea -Your incision begins to separate -Your incision shows signs of infection such as increased redness, swelling, excessive pain, drainage (light blood or clear fluid is normal) or heat <Iman Conway PA-C - Last Filed: 02/17/21 14:42> Care Plan Goals: Return to baseline health and gradual return to activity following recovery period. Abstain from alcohol. <Iman Conway PA-C - Last Filed: 02/17/21 14:42> Health Concerns: s/p repair of incarcerated incisional hernias, alcohol withdrawal, A fib, CHF, <Iman Conway PA-C - Last Filed: 02/17/21 14:42> Plan of Treatment: Discharge to [facility]. F/u in offce with Dr. Blunt F/u with PCP <Iman Conway PA-C - Last Filed: 02/17/21 14:42> Assessment: Improved. <Iman Conway PA-C - Last Filed: 02/17/21 14:42>
[2021-02-20 14:42] LABS: COVID-19 Test Negative (Negative); IDNOW Serial# 9DD0AD1C
[2021-02-20 15:35] VITALS: BP 157/88; PULSE 88; RESP 16; TEMP 36.4; O2SAT 96
== END 2021-02-20 18:43 | disposition skilled nursing facility (03) | DRG 354 ==
LOC: HO.ED 10:39 → HO.SSS 11:34 → HO.ICU 16:15 → HO.S3 02-10 16:57
PROVIDERS: Emergency Medicine; Internal Medicine; Physician Assistant Medical; Surgery; Admitting Provider Surgery; Emergency Provider Student in an Organized Health Care Education/Training Program; PCP Internal Medicine; Visit Provider Surgery
PROC: 0WQF0ZZ Repair Abdominal Wall, Open Approach (ICD-10-PCS; principal; 2021-02-08 13:40)
DX: K43.0 Incisional hernia with obstruction, without gangrene (principal); Z68.41 Body mass index [BMI] 40.0-44.9, adult; I48.20 Chronic atrial fibrillation, unspecified; E87.2 Acidosis; B37.0 Candidal stomatitis; F10.239 Alcohol dependence with withdrawal, unspecified; E66.01 Morbid (severe) obesity due to excess calories; Z98.84 Bariatric surgery status; Y90.8 Blood alcohol level of 240 mg/100 ml or more; F10.229 Alcohol dependence with intoxication, unspecified; R19.7 Diarrhea, unspecified; E87.6 Hypokalemia; F32.A Depression, unspecified; E78.5 Hyperlipidemia, unspecified; G47.00 Insomnia, unspecified; Z20.822 Contact with and (suspected) exposure to COVID-19; Z79.01 Long term (current) use of anticoagulants; Z79.899 Other long term (current) drug therapy
CPT/HCPCS: 36415; 71045; 71260; 74177; 80048; 80053; 81001; 82077; 82803; 83605; 83690; 83735; 83880; 84100; 84134; 84484; 85007; 85025; 85027; 85610; 87040; 87493; 87635; 93005; 93971; 94002; 94003; 94799; 96361; 96365; 96367; 96375; 96376; 97110; 97116; 97163; 97166; 97167; 97535; 99024; 99285; J0690; J1170; J2060; J2250; J2270; J3010; J3411; P9047; Q9967

== ENCOUNTER 2021-03-06 01:03 | Inpatient (IN) | payer MEDICARE, MEDICAID, SELFPAY ==
[2021-03-06] VITALS (23 sets, daily range): BP systolic 108–151; BP diastolic 51–97; PULSE 85–155; RESP 16–23; TEMP 36.2–36.9; O2SAT 96–98; BMI 43.5; BMI 42.7
--- NOTE | 2021-03-06 | ECG_ITS ---
Test Reason : SEPSIS Blood Pressure : / mmHG Vent. Rate : 120 BPM Atrial Rate : 000 BPM P-R Int : 000 ms QRS Dur : 156 ms QT Int : 380 ms P-R-T Axes : 000 -17 006 degrees QTc Int : 537 ms Atrial fibrillation with rapid ventricular response with premature ventricular or aberrantly conducted complexes Right bundle branch block Abnormal ECG When compared with ECG of 08-FEB-2021 01:26, T wave inversion less evident in Inferior leads T wave inversion no longer evident in Lateral leads Referred By: Generic ED Physician Electronically Signed By:JACKELYN BARON MD
--- NOTE | ~2021-03-06 | XR_ITS ---
EXAMINATION: XR CHEST CLINICAL INFORMATION: Shortness of breath COMPARISON: 02/08/2021 TECHNIQUE: Frontal view of the chest was obtained. FINDINGS: The lungs are symmetrically expanded. No focal consolidation is seen. No evidence of pneumothorax, pleural effusion, or pulmonary edema. Cardiac silhouette appears near the upper limits of normal in size. No acute osseous findings are seen. XR/XR chest 1V IMPRESSION: No acute cardiopulmonary findings.
--- NOTE | ~2021-03-06 | CT_ITS ---
EXAMINATION: CT HEAD WITHOUT CONTRAST CLINICAL INFORMATION: Altered mental status COMPARISON: 09/15/2019 TECHNIQUE: Contiguous axial imaging was performed from the skull base to vertex without intravenous administration of contrast. This CT examination was performed using dose optimization techniques as appropriate, variously including the following: *Automated exposure control *Adjustment of mA and/or kV according to patient size (this includes techniques or standardized protocols for targeted exams where dose is matched to indication/reason for exam; i.e. extremities or head) *Use of iterative reconstruction technique DLP: 906 mGy-cm FINDINGS: There is no evidence of acute intracranial hemorrhage or territorial infarction. No abnormal mass effect or midline shift is seen. [place] to white matter differentiation is well preserved. No extra-axial fluid collections are identified. The ventricles are normal in size. There is no abnormal attenuation within the brain parenchyma. The osseous structures and soft tissues are normal. The mastoid air cells and visualized portions of the paranasal sinuses are well aerated. CT/CT head/brain wo con IMPRESSION: No acute intracranial pathology.
[2021-03-06 01:24] LABS: Glucose, Whole Blood 100 mg/dL (60-115)
[2021-03-06 01:26] LABS: MANUAL DIFF FLAG NO
[2021-03-06 01:29] LABS: Basophils Percent Auto 0.3 % (0-2); Eosinophils Absolute Auto 0.1 X10*3/uL (0.0-0.4); Eosinophils Percent Auto 1.2 % (0-4); Hemoglobin 11.5 g/dl (14.0-18.0); PLT ABN DIST 1; Red Cell Distribution Width 19.4 % (11.0-16.0); SCAN SMEAR FLAG 1
[2021-03-06 01:31] LABS: Hematocrit 36.4 % (42.0-52.0); Imm Gran Abs Auto 0.03 X10*3/uL (0.00-0.03); Imm Gran Pct Auto 0.4 % (0.0-0.4); Lymphocytes Absolute Auto 0.5 X10*3/uL (1.2-4.9); Lymphocytes Percent Auto 7.1 % (20-40); Mean Corpuscular HGB Conc 31.6 g/dl (31.0-36.0); Mean Corpuscular Volume 88.6 fL (80.0-98.0); Monocytes Absolute Auto 0.5 X10*3/uL (0.1-1.2); Monocytes Percent Auto 7.7 % (2-11); Neutrophils Absolute Auto 5.6 x10*3/uL (2.0-8.3); Neutrophils Percent Auto 83.3 % (45-73); PLT CLUMP 1; Red Blood Count 4.11 X10*6/uL (4.60-5.80)
[2021-03-06 01:35] LABS: White Blood Count 6.7 X10*3/uL (4.8-10.8)
[2021-03-06 01:39] LABS: Lactic Acid 1.3 mmol/L (0.5-2.0)
[2021-03-06 01:42] LABS: Ammonia 30 umol/L (13-55)
[2021-03-06 01:43] LABS: COVID-19 Test Negative (Negative); IDNOW Serial# 9DD0AD1C
[2021-03-06 01:46] LABS: Platelet Count 144 X10*3/uL (160-400)
--- NOTE | 2021-03-06 01:56 | ED_ITS ---
HPI - Altered Mental Status General Chief Complaint: Altered Mental Status Stated Complaint: sepsis Time Seen by Provider: 03/06/21 01:26 Source: patient and EMS Mode of arrival: EMS History of Present Illness HPI narrative: 60-year-old male with history of chronic atrial fibrillation currently on anticoagulation, morbid obesity as well as alcohol dependence is brought in for altered mental status that started today. There is a reported history of UTI being treated for 3 days on p.o. antibiotics of Keflex. Patient himself denies any pain or shortness of breath, although he appears to be altered as he is not answering questions appropriately and seems to be picking at things that are not there. Related Data Home Medications Medication Instructions Recorded Confirmed venlafaxine 75 mg capsule,extended 75 mg PO DAILY 12/15/20 02/13/21 release 24 hr acamprosate 333 mg tablet,delayed 666 mg PO TID 02/13/21 02/13/21 release vilazodone 20 mg tablet (Viibryd) 20 mg PO DAILY 02/13/21 02/13/21 Previous Rx's Medication Instructions Recorded apixaban 5 mg tablet (Eliquis) 5 mg PO BID 90 Days #180 tab 05/25/20 aripiprazole 5 mg tablet (Abilify) 5 mg PO DAILY 90 Days #90 tab 05/25/20 atorvastatin 40 mg tablet 40 mg PO BEDTIME 90 Days #90 tab 05/25/20 venlafaxine 150 mg 150 mg PO DAILY 90 Days #90 cap 05/25/20 capsule,extended release 24 hr (Effexor XR) diltiazem HCl 240 mg 240 mg PO DAILY #30 cap 11/23/20 capsule,extended release 24 hr (Cardizem CD) loperamide 2 mg capsule (Imodium 2 mg PO Q6H PRN #30 cap 02/17/21 A-D) metoprolol tartrate 25 mg tablet 75 mg PO BID 60 Days #360 tab 02/17/21 nystatin 100,000 unit/mL oral 500,000 unit (5 mL) PO QID 6 Days 02/17/21 suspension #120 ml oxycodone 5 mg tablet 10 mg PO Q4H PRN #20 tab 02/20/21 zolpidem 5 mg tablet (Ambien) 5 mg PO BEDTIME PRN #30 tab 02/20/21 Allergies Allergy/AdvReac Type Severity Reaction Status Date / Time No Known Allergies Allergy Verified 12/15/20 05:52 Review of Systems Review of Systems: Yes Unobtainable due to mental condition [facility] Past Medical History Source: nursing notes reviewed Medical History Alcohol dependence Alcohol intoxication Alcohol withdrawal Anemia Atrial fibrillation with RVR Chronic atrial fibrillation Depression Dyslipidemia Heart failure with left ventricular ejection fraction greater than or equal to 50 percent History of alcohol abuse Incarcerated incisional hernia Insomnia Metabolic acidosis with increased anion gap and accumulation of organic acids Morbid obesity Obesity Oral thrush Pulmonary embolism Thoracic aortic aneurysm Toenail deformity Surgical History History of inguinal hernia repair Hx of gastric bypass S/P cholecystectomy Family History Family History Mother No problems noted. Father No problems noted. Family/Other Substance use disorder Social History Social History Household Members: Unknown / Unable to assess Household Members Other:: lives with mother Housing: Unknown / Unable to assess Unable to assess alcohol history related to: Unable to respond Alcohol intake: current Alcohol intake frequency: other Alcohol type: beer and wine Patient Tobacco Use Status: Never used Tobacco e-Cigarette/Vaping Use: Never Used Second Hand Smoke Exposure: No Advance Directives: No service: No Current occupational status: retired Physical Exam Vital Signs: Vital Signs: Last Vital Signs Temp 98.5 F 03/06/21 01:09 Pulse 108 H 03/06/21 03:07 Resp 17 03/06/21 03:07 BP 117/89 03/06/21 03:07 Pulse Ox 97 03/06/21 03:07 Body Mass Index 43.5 VITAL SIGNS: Reviewed. GENERAL: Morbidly obese, chronically ill, in no acute distress. HEAD: Normocephalic/atraumatic EYES: PERRLA, EOMI OROPHARYNX: no oral lesions noted, posterior pharynx clear, dry mucosa NECK: Supple, no adenopathy LUNGS: Normal breath sounds. No adventitious sounds or accessory muscle use. SpO2<97> CARDIOVASCULAR: Regular rate and rhythm without noted murmurs, no JVD but bilateral 1 to 2+ pitting edema to mid tibia ABDOMEN: Obese, Soft, non-tender, midline/well-healing incision with intact atif and no surrounding erythema or induration, non-distended with bowel sounds. SKIN: Inspection of the skin reveals no rashes NEUROLOGIC: Alert and oriented x 2. Strength and sensation to light touch were grossly intact x 4, nonfocal PSYCH: Appears to be picking at non-existent items in the air Course Course Course Narrative: 60-year-old male with history and clinical presentation consistent with after review of all laboratory and imaging workup with alcohol delirium. There is no evidence of acute anemia or infection, of note patient does have ARIAN and otherwise ammonia level is negligible. This case was discussed with inpatient hospitalist who accepts admission. MDM - Altered Mental Status Lab Data Result diagrams: 03/06/21 01:21 03/06/21 01:40 Labs: Lab Results 03/06/21 03/06/21 03/06/21 Range/Units 01:21 01:21 01:21 WBC 6.7 (4.8-10.8) X10*3/uL RBC 4.11 L (4.60-5.80) X10*6/uL Hgb 11.5 L (14.0-18.0) g/dl Hct 36.4 L (42.0-52.0) % MCV 88.6 (80.0-98.0) fL MCH 28.0 (27.0-33.0) pg MCHC 31.6 (31.0-36.0) g/dl RDW 19.4 H (11.0-16.0) % Plt Count 144 L D (160-400) X10*3/uL MPV TNP Immature Gran % (Auto) 0.4 (0.0-0.4) % Neut % (Auto) 83.3 H (45-73) % Lymph % (Auto) 7.1 L (20-40) % [place] % (Auto) 7.7 (2-11) % Eos % (Auto) 1.2 (0-4) % Baso % (Auto) 0.3 (0-2) % Lymph # (Auto) 0.5 L (1.2-4.9) X10*3/uL [place] # (Auto) 0.5 (0.1-1.2) X10*3/uL Eos # (Auto) 0.1 (0.0-0.4) X10*3/uL Baso # (Auto) 0.0 (0.0-0.2) X10*3/uL Abs Immat Gran (auto) 0.03 (0.00-0.03) X10*3/uL Absolute Neuts (auto) 5.6 (2.0-8.3) x10*3/uL Absolute Nucleated RBC 0.000 (0.0-0.012) X10*3/uL Nucleated RBC % (auto) 0.0 (0.0-0.2) /100WBC Sodium (135-145) mmol/L Potassium (3.3-5.1) mmol/L Chloride (96-108) mmol/L Carbon Dioxide (22-29) mmol/L Anion Gap (12-20) BUN (9-16) mg/dL Creatinine (0.5-1.4) mg/dL Estim Creat Clear Calc Estimated GFR POC Glucose (60-115) mg/dL Random Glucose (60-115) mg/dL Lactic Acid 1.3 (0.5-2.0) mmol/L Calcium (8.4-10.2) mg/dL Magnesium (1.6-2.6) mg/dL Ammonia 30 (13-55) umol/L B-Natriuretic Peptide (<100) pg/mL Ethyl Alcohol mg/dL COVID-19 (NOLAN) (Negative) COVID-19 Clin Com 03/06/21 03/06/21 03/06/21 Range/Units 01:21 01:21 01:40 WBC (4.8-10.8) X10*3/uL RBC (4.60-5.80) X10*6/uL Hgb (14.0-18.0) g/dl Hct (42.0-52.0) % MCV (80.0-98.0) fL MCH (27.0-33.0) pg MCHC (31.0-36.0) g/dl RDW (11.0-16.0) % Plt Count (160-400) X10*3/uL MPV Immature Gran % (Auto) (0.0-0.4) % Neut % (Auto) (45-73) % Lymph % (Auto) (20-40) % [place] % (Auto) (2-11) % Eos % (Auto) (0-4) % Baso % (Auto) (0-2) % Lymph # (Auto) (1.2-4.9) X10*3/uL [place] # (Auto) (0.1-1.2) X10*3/uL Eos # (Auto) (0.0-0.4) X10*3/uL Baso # (Auto) (0.0-0.2) X10*3/uL Abs Immat Gran (auto) (0.00-0.03) X10*3/uL Absolute Neuts (auto) (2.0-8.3) x10*3/uL Absolute Nucleated RBC (0.0-0.012) X10*3/uL Nucleated RBC % (auto) (0.0-0.2) /100WBC Sodium 140 (135-145) mmol/L Potassium 3.2 L (3.3-5.1) mmol/L Chloride 104 (96-108) mmol/L Carbon Dioxide 22 (22-29) mmol/L Anion Gap 17 (12-20) BUN 25 H D (9-16) mg/dL Creatinine 1.45 H (0.5-1.4) mg/dL Estim Creat Clear Calc 78.3 Estimated GFR 49 POC Glucose 100 (60-115) mg/dL Random Glucose 101 (60-115) mg/dL Lactic Acid (0.5-2.0) mmol/L Calcium 8.1 L (8.4-10.2) mg/dL Magnesium 2.4 (1.6-2.6) mg/dL Ammonia (13-55) umol/L B-Natriuretic Peptide (<100) pg/mL Ethyl Alcohol mg/dL COVID-19 (NOLAN) Negative (Negative) COVID-19 Clin Com See Note 03/06/21 03/06/21 Range/Units 01:40 01:40 WBC (4.8-10.8) X10*3/uL RBC (4.60-5.80) X10*6/uL Hgb (14.0-18.0) g/dl Hct (42.0-52.0) % MCV (80.0-98.0) fL MCH (27.0-33.0) pg MCHC (31.0-36.0) g/dl RDW (11.0-16.0) % Plt Count (160-400) X10*3/uL MPV Immature Gran % (Auto) (0.0-0.4) % Neut % (Auto) (45-73) % Lymph % (Auto) (20-40) % [place] % (Auto) (2-11) % Eos % (Auto) (0-4) % Baso % (Auto) (0-2) % Lymph # (Auto) (1.2-4.9) X10*3/uL [place] # (Auto) (0.1-1.2) X10*3/uL Eos # (Auto) (0.0-0.4) X10*3/uL Baso # (Auto) (0.0-0.2) X10*3/uL Abs Immat Gran (auto) (0.00-0.03) X10*3/uL Absolute Neuts (auto) (2.0-8.3) x10*3/uL Absolute Nucleated RBC (0.0-0.012) X10*3/uL Nucleated RBC % (auto) (0.0-0.2) /100WBC Sodium (135-145) mmol/L Potassium (3.3-5.1) mmol/L Chloride (96-108) mmol/L Carbon Dioxide (22-29) mmol/L Anion Gap (12-20) BUN (9-16) mg/dL Creatinine (0.5-1.4) mg/dL Estim Creat Clear Calc Estimated GFR POC Glucose (60-115) mg/dL Random Glucose (60-115) mg/dL Lactic Acid (0.5-2.0) mmol/L Calcium (8.4-10.2) mg/dL Magnesium (1.6-2.6) mg/dL Ammonia (13-55) umol/L B-Natriuretic Peptide 126 H (<100) pg/mL Ethyl Alcohol < 10 mg/dL COVID-19 (NOLAN) (Negative) COVID-19 Clin Com ECG Data ECG #1: Attestation: I personally reviewed and interpreted this ECG as follows: Prior ECG tracings: available for review (02/08/2021 no acute changes on comparison) Interpretation: Atrial fibrillation with RVR, HR-120, no STEMI Critical Care Time Critical Care Time Critical Care Time: Yes Total Critical Care Time: 30 Attestation: I personally attest to this time spent taking care of the patient. Discharge Plan Discharge Clinical Impression: Alcohol withdrawal delirium, Atrial fibrillation with RVR, ARIAN (acute kidney injury) Patient Disposition: Admitted As Inpatient
[2021-03-06 02:08] LABS: B Type Natriuretic Peptide 126 pg/mL (<100)
[2021-03-06 02:15] LABS: Ethanol < 10 mg/dL
[2021-03-06 02:16] LABS: Anion Gap 17 (12-20); Blood Urea Nitrogen 25 mg/dL (9-16); Calcium 8.1 mg/dL (8.4-10.2); Carbon Dioxide 22 mmol/L (22-29); Chloride 104 mmol/L (96-108); Creatinine Clr Calc Pharmacy 78.3; Estimated Glomerular Filt Rate 49; Glucose Random 101 mg/dL (60-115); Potassium 3.2 mmol/L (3.3-5.1); Sodium 140 mmol/L (135-145)
[2021-03-06] MEDS: Metoprolol Tartrate 5 MG/5 ML VIAL IVPUSH (02:39)
[2021-03-06 02:50] LABS: Magnesium 2.4 mg/dL (1.6-2.6)
--- NOTE | 2021-03-06 03:30 | PC.NURSE ---
This PCT and PCT Symone inserted a straight cath with zero output.
[2021-03-06] MEDS: 0.9 % Sodium Chloride 1,000 ML 999 ML IV (04:11)
[2021-03-06] MEDS: LORazepam 2 MG/ML VIAL IVPUSH (04:55)
[2021-03-06] MEDS: PHENobarbitaL sodium 130 MG/ML VIAL 310 MG IM (05:14)
--- NOTE | 2021-03-06 05:18 | P.HPHOSP_ITS ---
History of Present Illness Date of Service: 03/06/21 Chief Complaint: confusion 60-year-old male with a past medical history of hypertension, hyperlipidemia, CHF, history of pulmonary embolism, AFib on Eliquis, anemia, anxiety, depression, history of thoracic aortic aneurysm, history of gastric bypass surgery, alcohol abuse presented to the hospital today with a chief complaint of confusion. Patient is alert and awake, oriented times 1-2, most of the history obtained from the ER staff/ records. I tried to call the patient's son Royer unable to reach over the phone-left voice message with call back number. Reportedly patient was sent to the hospital because of the confusion. Patient recently finished antibiotic course for urinary tract infection. patient denied any chest pain or palpitations. Denied any cough or sputum production. Denied any fevers. review of the systems is limited as patient is confused. ER course: Per ER team patient labs noted to have elevated creatinine consistent with ARIAN; CT head showed no acute findings; grossly nonfocal examination; patient noted to be tachycardic and tachypneic, hallucinating and confused in the ER concern for alcohol withdrawal; patient was given phenobarbital. On telemetry patient also noted to be in rapid ventricular response. Chest x-ray showed no acute findings; admitted to the hospital for further management. [facility] Medical History Alcohol dependence Alcohol intoxication Alcohol withdrawal Anemia Atrial fibrillation with RVR Chronic atrial fibrillation Depression Dyslipidemia Heart failure with left ventricular ejection fraction greater than or equal to 50 percent History of alcohol abuse Incarcerated incisional hernia Insomnia Metabolic acidosis with increased anion gap and accumulation of organic acids Morbid obesity Obesity Oral thrush Pulmonary embolism Thoracic aortic aneurysm Toenail deformity Family History Mother No problems noted. Father No problems noted. Family/Other Substance use disorder Pertinent family history: as above Surgical History History of inguinal hernia repair Hx of gastric bypass S/P cholecystectomy Social History Household Members: Unknown / Unable to assess Household Members Other:: lives with mother Housing: Unknown / Unable to assess Unable to assess alcohol history related to: Unable to respond Alcohol intake: current Alcohol intake frequency: other Alcohol type: beer and wine Patient Tobacco Use Status: Never used Tobacco e-Cigarette/Vaping Use: Never Used Second Hand Smoke Exposure: No Advance Directives: No service: No Current occupational status: retired Meds Allergies Allergy/AdvReac Type Severity Reaction Status Date / Time No Known Allergies Allergy Verified 12/15/20 05:52 Active Medications: Current Medications Acetaminophen (Acetaminophen 325 Mg Tablet) 650 mg PO Q6H PRN PRN Reason: Pain, Mild (Pain Scale 1-3) Apixaban (Apixaban 5 Mg Tablet) 5 mg PO BID [facility] Aripiprazole (Aripiprazole 5 Mg Tablet) 5 mg PO DAILY [facility] Atorvastatin Calcium (Atorvastatin Calcium 40 Mg Tablet) 40 mg PO BEDTIME [facility] Diltiazem HCl (Diltiazem Hcl Cd 240 Mg Cap.Er.Deg) 240 mg PO DAILY [facility]; Protocol Famotidine (Famotidine 20 Mg Tablet) 20 mg PO BID [facility] Folic Acid (Folic Acid 1 Mg Tablet) 1 mg PO DAILY [facility] Stop: 03/09/21 08:59 Dextrose/Sodium Chloride (D51/2ns) 1,000 mls @ 50 mls/hr IVCONT .Q20H [facility] Medication (No Benzodiazepines) 1 each MISCELLANE DAILY [facility] Melatonin (Melatonin 3 Mg Tablet) 6 mg PO BEDTIME PRN PRN Reason: Insomnia Metoprolol Tartrate (Metoprolol Tartrate 25 Mg Tablet) 75 mg PO BID [facility]; Protocol Multivitamins/Vitamin C (Multivitamin Tablet) 1 tab PO DAILY [facility] Stop: 03/09/21 08:59 Phenobarbital Sodium (Phenobarbital Sodium 130 Mg/Ml Vial) 233 mg IM Q3H [facility] Stop: 03/06/21 11:31 Senna (Sennosides 8.6 Mg Tablet) 17.2 mg PO BEDTIME PRN PRN Reason: Constipation Sodium Chloride (0.9 % Sodium Chloride Flush 3 Ml Syringe) 3 ml IVFLUSH QSHIFT [facility] Thiamine HCl (Thiamine Hcl 100 Mg Tablet) 100 mg PO DAILY [facility] Stop: 03/09/21 08:59 Vilazodone HCl (Vilazodone Hcl 20 Mg Tablet) 20 mg PO DAILY [facility] Home Medications Medication Instructions Recorded Confirmed Last Taken Type venlafaxine 75 mg capsule,extended 75 mg PO DAILY 12/15/20 03/06/21 Unknown History release 24 hr acamprosate 333 mg tablet,delayed 666 mg PO TID 02/13/21 03/06/21 Unknown His tory release vilazodone 20 mg tablet (Viibryd) 20 mg PO DAILY 02/13/21 03/06/21 Unknown Hist ory Physical Exam Vital Signs and Narrative: Vital Signs: Last Vital Signs Temp 98.5 F 03/06/21 01:09 Pulse 129 H 03/06/21 04:58 Resp 23 H 03/06/21 04:58 BP 130/93 H 03/06/21 04:58 Pulse Ox 96 03/06/21 04:58 Body Mass Index 43.5 Results Labs CBC and Chem 7: 03/06/21 01:21 03/06/21 01:40 Labs: Laboratory Results - last 24 hr 03/06/21 03/06/21 03/06/21 01:21 01:21 01:21 MCV 88.6 MCH 28.0 MCHC 31.6 RDW 19.4 H Plt Count 144 L D MPV TNP Immature Gran % (Auto) 0.4 Neut % (Auto) 83.3 H Lymph % (Auto) 7.1 L [place] % (Auto) 7.7 Eos % (Auto) 1.2 Baso % (Auto) 0.3 Lymph # (Auto) 0.5 L [place] # (Auto) 0.5 Eos # (Auto) 0.1 Baso # (Auto) 0.0 Abs Immat Gran (auto) 0.03 Absolute Neuts (auto) 5.6 Absolute Nucleated RBC 0.000 Nucleated RBC % (auto) 0.0 Anion Gap Estim Creat Clear Calc Estimated GFR POC Glucose Random Glucose Lactic Acid 1.3 Calcium Magnesium Ammonia 30 B-Natriuretic Peptide Ethyl Alcohol COVID-19 ([facility]) COVID-19 Clin Com 03/06/21 03/06/21 03/06/21 01:21 01:21 01:40 MCV MCH MCHC RDW Plt Count MPV Immature Gran % (Auto) Neut % (Auto) Lymph % (Auto) [place] % (Auto) Eos % (Auto) Baso % (Auto) Lymph # (Auto) [place] # (Auto) Eos # (Auto) Baso # (Auto) Abs Immat Gran (auto) Absolute Neuts (auto) Absolute Nucleated RBC Nucleated RBC % (auto) Anion Gap 17 Estim Creat Clear Calc 78.3 Estimated GFR 49 POC Glucose 100 Random Glucose 101 Lactic Acid Calcium 8.1 L Magnesium 2.4 Ammonia B-Natriuretic Peptide Ethyl Alcohol COVID-19 ([facility]) Negative COVID-19 Clin Com See Note 03/06/21 03/06/21 01:40 01:40 MCV MCH MCHC RDW Plt Count MPV Immature Gran % (Auto) Neut % (Auto) Lymph % (Auto) [place] % (Auto) Eos % (Auto) Baso % (Auto) Lymph # (Auto) [place] # (Auto) Eos # (Auto) Baso # (Auto) Abs Immat Gran (auto) Absolute Neuts (auto) Absolute Nucleated RBC Nucleated RBC % (auto) Anion Gap Estim Creat Clear Calc Estimated GFR POC Glucose Random Glucose Lactic Acid Calcium Magnesium Ammonia B-Natriuretic Peptide 126 H Ethyl Alcohol < 10 COVID-19 ([facility]) COVID-19 Clin Com Imaging Radiologist's Impressions: Impressions Chest X-Ray 03/06/21 02:15 IMPRESSION: No acute cardiopulmonary findings. Head CT 03/06/21 02:43 IMPRESSION: No acute intracranial pathology. Assessment and Plan (1) Atrial fibrillation with RVR: Status: Acute (2) Alcohol withdrawal delirium: Status: Acute (3) ARIAN (acute kidney injury): Status: Acute 60-year-old male with a past medical history of hypertension, hyperlipidemia, CHF, history of pulmonary embolism, AFib on Eliquis, anemia, anxiety, depression, history of thoracic aortic aneurysm, history of gastric bypass surgery, alcohol abuse presented to the hospital today with a chief complaint of confusion. Altered mental status: Likely toxic metabolic encephalopathy/ alcohol withdrawal. Supportive care. CT head showed no acute findings. Fall precautions. PT /OT eventually. Ammonia level within normal limits Liver panel pending Alcohol withdrawal: Continue phenobarb protocol. Thiamine, folate, multivitamins. ARIAN: Likely prerenal. Gentle IV fluids. Avoid nephrotoxins. hypokalemia: Repleted Recent UTI: Patient finished course of Keflex as outpatient. Repeat urinalysis pending. AFib with rapid ventricular response: Likely in the setting of alcohol withdrawal. Monitor telemetry. Continue home metoprolol and diltiazem. If not improving will defer to the a.m. team to consider Cardiology consul. continue home Eliquis. History of thoracic aortic aneurysm: Patient denies any chest pain. Blood pressure control. History of hypertension /hyperlipidemia: Continue home medications. history of anxiety / depression: Continue home medications. DVT prophylaxis: Patient on Eliquis Code status: Presumed full code For now. Unable to reach the patient's son over the phone. Will defer to the a.m. team to confirm. Off note: things to follow up by the day hospitalist once care taken over at 7:00 a.m. on 03/06/2021: Urinalysis Tachycardia / cardiology consult if needed code status with the family. Quality Stroke Does the patient have a stroke diagnosis?: No VTE Prior VTE?: No VTE Risk Level:: Medical - moderate - high VTE Device Contraindication: Treatment Not Indicated VTE Drug Contraindication: N/A - Med Ordered
[2021-03-06] MEDS: Dextrose 5 % and 0.45 % NaCl 1,000 ML 50 ML IVCONT (05:25)
[2021-03-06 05:30] LABS: Alanine Aminotransferase 280 U/L (0-40); Albumin Level 3.1 g/dL (3.5-5.0); Alkaline Phosphatase 131 U/L (39-117); Aspartate Amino Transferase 565 U/L (5-37); Bilirubin Direct 0.4 mg/dL (0.0-0.5); Bilirubin Total 0.5 mg/dL (0.0-1.0); Total Protein 6.1 g/dL (6.5-8.0)
[2021-03-06] MEDS: Potassium Chloride Packet 20 MEQ PACKET 40 MEQ PO (06:09)
--- NOTE | 2021-03-06 06:44 | PC.NURSE ---
pt heart rate elevated, MD aware nothing to be given at this time. Pt remains confused, pt tries to climb out of bed at times, very re-directable.
[2021-03-06 06:48] LABS: Appearance Urine CLEAR; Color Urine YELLOW; Glucose Urine UA NEG (NEG); Leukocyte Esterase Urine NEG (NEG); Nitrite Urine NEG (NEG); Specific Gravity - Urine >= 1.030 (1.005-1.025); UACC Culture Trigger NO; Urine Blood 2+ (NEG); Urine Ketones 15 MG/DL (NEG); Urine Protein 2+ MG/DL (NEG-TRACE)
--- NOTE | 2021-03-06 07:19 | PC.NURSE ---
tigered dr mcdonnell in regards to this pt's elevated hr, requesting cardizem iv or something to control the rate, he currently in the 150's
[2021-03-06 07:27] LABS: UACC CULT YES
[2021-03-06 07:28] LABS: Calcium Oxalate Crystals Urine TRACE /LPF; Mucus Urine 1+ /LPF; Squamous Epithelial Cell Urine TRACE /LPF
[2021-03-06] MEDS: PHENobarbitaL sodium 130 MG/ML VIAL 233 MG IM ×2 (08:11→11:49)
[2021-03-06] MEDS: dilTIAZem HCL 50 MG/10 ML VIAL 10 MG IVPUSH (08:11)
[2021-03-06] MEDS: 0.9 % Sodium Chloride Flush 3 ML SYRINGE IVFLUSH ×3 (08:12→20:07)
--- NOTE | 2021-03-06 08:24 | PC.NURSE ---
pt oriented, to self only, pt restless attempting to get out of bed but at this time is redirectable, pt has a slight visible tremor, keeps having visual hallucinations hr in a-fib anywhere from 155-125, bp stable
[2021-03-06] MEDS: Famotidine 20 MG TABLET PO ×2 (08:49→20:06)
[2021-03-06] MEDS: Multivitamin TABLET 1 TAB PO (08:49)
[2021-03-06] MEDS: Thiamine HCL 100 MG TABLET PO (08:49)
[2021-03-06] MEDS: Apixaban 5 MG TABLET PO ×2 (08:49→20:06)
[2021-03-06] MEDS: Folic Acid 1 MG TABLET PO (08:49)
[2021-03-06] MEDS: Vilazodone HCL 20 MG TABLET PO (08:50)
[2021-03-06] MEDS: dilTIAZem HCL CD 240 MG CAP.ER.DEG PO (08:50)
[2021-03-06] MEDS: Metoprolol Tartrate 25 MG TABLET 75 MG PO ×2 (08:53→20:06)
[2021-03-06] MEDS: ARIPiprazole 5 MG TABLET PO (08:57)
--- NOTE | 2021-03-06 10:59 | PHA.MEDREC ---
Pharmacy Consult ? Medication Reconciliation Pharmacy has reviewed the medication reconciliation compeleted by Joan. Patient came from [facility]. There were multiple discprenacies with list from SNF and home medication list. Patient is only taking Effexor 150 mg however 150 mg and 75 mg were on list as well as being filled at [facility]. Patient is no longer taking Ambien per SNF list and [facility]. Patient is on Ciprofloxacin 500 mg Q12H which was no included on the home medication list. Patient is also no on oxycodone at the SNF, there are recent fills on PDMP. Kerry Farris, NoraD
--- NOTE | 2021-03-06 11:54 | PC.NURSE ---
pt is currently calmer, not as restless, continuous on reaching out for things, slight visible tremor hr improved ranges from 110-90 s still in a-fib
--- NOTE | 2021-03-06 12:05 | PM.EVENT ---
Event Note Date of Service: 03/06/21 Event Note: 60-year-old gentleman with past medical history of hypertension, hyperlipidemia, history of PE, AFib on Eliquis anemia, anxiety depression history of thoracic aortic aneurysm history of gastric bypass surgery history of alcohol abuse was brought into [facility] due to confusion 60-year-old male with a past medical history of hypertension, hyperlipidemia, CHF, history of pulmonary embolism, AFib on Eliquis, anemia, anxiety, depression, history of thoracic aortic aneurysm, history of gastric bypass surgery, alcohol abuse presented to the hospital today with a chief complaint of confusion. Toxic metabolic encephalopathy/ alcohol withdrawal.? Supportive care.? CT head showed no acute findings, normal ammonia level Fall precautions.? PT /OT eventually.? Ammonia level within normal limits Alcoholic hepatitis, will obtain care team consult for alcohol abuse continue supportive care follow LFTs, avoid hepatotoxins. Alcohol withdrawal: Continue phenobarb protocol.? Thiamine, folate, multivitamins.? ARIAN: Likely prerenal.? Continue IV fluids avoid nephrotoxins follow BMP Hypokalemia:? Repleted follow labs at a.m. Recent UTI:? Patient finished course of? Keflex as outpatient.? Repeat urinalysis negative Chronic atrial fibrillation with rapid ventricular response Give 1 dose of IV Cardizem 10 mg, will give home dose of metoprolol and diltiazem early and follow ventricular rate continue tele monitor , continue Eliquis History of thoracic aortic aneurysm: Maintain good blood pressure control no complain of chest pain. History of hypertension /hyperlipidemia:? Continue home medications.? History of anxiety / depression: Continue home medications. DVT prophylaxis:? Patient on Eliquis Code status:? full code?spoke with patient's son Royer Pierson [phone] and he wishes him to be full code.
--- NOTE | 2021-03-06 14:20 | MHC.CM.PN ---
CM MET WITH PT WHO REPORTS HE LEFT [facility] TWO DAYS AGO. HE REPORTS HE IS STILL ACTIVE WITH [facility] AT HOME. PT DENIES USING DME PT CONFIRMS HIS PCP IS JOAQUIN TADEO AND HE HAS A HCP ON FILE PT CONFIRMS HE RECEIVED THE MODERNA COVID VACCINES IN FEBRUARY AND MARCH OF 2020. IMM DELIVERED AND A COPY WAS SENT TO [facility] CURRENTLY DC PLAN IS TBD PENDING PT AND CARE TEAM [facility] VS RETURN TO STR VS ETOH TREATMENT FACILITY
[2021-03-06 18:53] LABS: Glucose, Whole Blood 91 mg/dL (60-115)
[2021-03-06] MEDS: Atorvastatin Calcium 40 MG TABLET PO (20:06)
[2021-03-06] MEDS: PHENobarbitaL 30 MG TABLET 60 MG PO (20:06)
--- NOTE | 2021-03-06 21:28 | PC.NURSE ---
Report given to Susanna BEAVERS on [facility].
[2021-03-07] VITALS (9 sets, daily range): BP systolic 112–134; BP diastolic 70–88; PULSE 70–100; RESP 16–20; TEMP 36.2–36.6; O2SAT 95–98
[2021-03-07] MEDS: Dextrose 5 % and 0.45 % NaCl 1,000 ML 50 ML IVCONT (01:51)
[2021-03-07 05:49] LABS: MANUAL DIFF FLAG NO
[2021-03-07 05:55] LABS: Basophils Percent Auto 0.2 % (0-2); Eosinophils Absolute Auto 0.1 X10*3/uL (0.0-0.4); Eosinophils Percent Auto 0.9 % (0-4); Hematocrit 36.6 % (42.0-52.0); Imm Gran Abs Auto 0.03 X10*3/uL (0.00-0.03); Imm Gran Pct Auto 0.5 % (0.0-0.4); Lymphocytes Absolute Auto 0.5 X10*3/uL (1.2-4.9); Mean Corpuscular HGB Conc 30.1 g/dl (31.0-36.0); Mean Corpuscular Hemoglobin 27.3 pg (27.0-33.0); Mean Corpuscular Volume 90.8 fL (80.0-98.0); Mean Platelet Volume 12.7 fL (9.4-12.4); Monocytes Absolute Auto 0.4 X10*3/uL (0.1-1.2); Monocytes Percent Auto 7.4 % (2-11); Neutrophils Absolute Auto 4.6 x10*3/uL (2.0-8.3); Platelet Count 174 X10*3/uL (160-400); Red Blood Count 4.03 X10*6/uL (4.60-5.80); Red Cell Distribution Width 19.7 % (11.0-16.0); White Blood Count 5.6 X10*3/uL (4.8-10.8)
[2021-03-07 06:34] LABS: Alanine Aminotransferase 210 U/L (0-40); Albumin Level 2.9 g/dL (3.5-5.0); Alkaline Phosphatase 122 U/L (39-117); Anion Gap 14 (12-20); Aspartate Amino Transferase 250 U/L (5-37); Bilirubin Direct 0.4 mg/dL (0.0-0.5); Bilirubin Total 0.6 mg/dL (0.0-1.0); Blood Urea Nitrogen 17 mg/dL (9-16); Calcium 8.2 mg/dL (8.4-10.2); Carbon Dioxide 26 mmol/L (22-29); Chloride 108 mmol/L (96-108); Creatinine Clr Calc Pharmacy 109.1; Estimated Glomerular Filt Rate > 60; Glucose Random 98 mg/dL (60-115); Potassium 3.5 mmol/L (3.3-5.1); Sodium 144 mmol/L (135-145); Total Protein 5.7 g/dL (6.5-8.0)
[2021-03-07] MEDS: PHENobarbitaL 30 MG TABLET 60 MG PO ×2 (07:49→20:16)
[2021-03-07] MEDS: Apixaban 5 MG TABLET PO ×2 (07:49→20:15)
[2021-03-07] MEDS: Multivitamin TABLET 1 TAB PO (07:50)
[2021-03-07] MEDS: dilTIAZem HCL CD 240 MG CAP.ER.DEG PO (07:50)
[2021-03-07] MEDS: Vilazodone HCL 20 MG TABLET PO (07:51)
[2021-03-07] MEDS: ARIPiprazole 5 MG TABLET PO (07:51)
[2021-03-07] MEDS: Folic Acid 1 MG TABLET PO (07:51)
[2021-03-07] MEDS: Venlafaxine HCl ER 150 MG CAP.ER.24H PO (07:51)
[2021-03-07] MEDS: Metoprolol Tartrate 25 MG TABLET 75 MG PO ×2 (07:52→20:15)
[2021-03-07] MEDS: Famotidine 20 MG TABLET PO ×2 (07:53→20:15)
[2021-03-07] MEDS: Thiamine HCL 100 MG TABLET PO (07:53)
[2021-03-07] MEDS: 0.9 % Sodium Chloride Flush 3 ML SYRINGE IVFLUSH ×2 (07:54→20:15)
[2021-03-07] MEDS: ondansetron HCL 4 MG/2 ML VIAL IVPUSH (10:32)
--- NOTE | 2021-03-07 13:07 | P.PNIM_ITS ---
Subjective Subjective Date of Service: 03/07/21 Interval History: Patient awake alert this morning answering questions appropriately feels nauseous, otherwise offers no other acute complaints. No issues overnight Review of Systems General no headache, no dizziness, no fever chills. CVS no chest pain, no palpitation. Respiratory no cough, no sob Gastrointestinal nausea, no vomiting, no abdominal pain Review of Systems: Yes all other systems are reviewed and are negative Physical Exam Vital Signs: Vital Signs: Last Vital Signs Temp 97.8 F 03/07/21 11:41 Pulse 77 03/07/21 11:41 Resp 18 03/07/21 11:41 BP 119/72 03/07/21 11:41 Pulse Ox 95 03/07/21 11:41 Body Mass Index 42.7 General awake alert x3, no acute distress. Neck no JVD. CVS irregular rate rhythm, Respiratory lungs clear to auscultation, no respiratory distress, no wheeze, no rhonchi. Gastrointestinal abdomen soft,obese, nontender, bowel sounds audible,no guarding , no rigidity. Extremities no edema. Neuro nonfocal , speech clear. Skin no rash Musculoskeletal no deformity Objective Data Active Medications Acetaminophen (Acetaminophen 325 Mg Tablet) 650 mg PO Q6H PRN PRN Reason: Pain, Mild (Pain Scale 1-3) Apixaban (Apixaban 5 Mg Tablet) 5 mg PO BID [facility] Last Admin: 03/07/21 07:49 Dose: 5 mg Documented by: [facility] Aripiprazole (Aripiprazole 5 Mg Tablet) 5 mg PO DAILY [facility] Last Admin: 03/07/21 07:51 Dose: 5 mg Documented by: VALERIA Atorvastatin Calcium (Atorvastatin Calcium 40 Mg Tablet) 40 mg PO BEDTIME [facility] Last Admin: 03/06/21 20:06 Dose: 40 mg Documented by: [facility] Diltiazem HCl (Diltiazem Hcl Cd 240 Mg Cap.Er.Deg) 240 mg PO DAILY [facility]; Protocol Last Admin: 03/07/21 07:50 Dose: 240 mg Documented by: VALERIA Famotidine (Famotidine 20 Mg Tablet) 20 mg PO BID [facility] Last Admin: 03/07/21 07:53 Dose: 20 mg Documented by: VALERIA Folic Acid (Folic Acid 1 Mg Tablet) 1 mg PO DAILY [facility] Stop: 03/09/21 08:59 Last Admin: 03/07/21 07:51 Dose: 1 mg Documented by: VALERIA Loperamide HCl (Loperamide Hcl 2 Mg Capsule) 2 mg PO Q6H PRN PRN Reason: diarrhea Medication (No Benzodiazepines) 1 each MISCELLANE DAILY [facility] Melatonin (Melatonin 3 Mg Tablet) 6 mg PO BEDTIME PRN PRN Reason: Insomnia Metoprolol Tartrate (Metoprolol Tartrate 25 Mg Tablet) 75 mg PO BID [facility]; Protocol Last Admin: 03/07/21 07:52 Dose: 75 mg Documented by: VALERIA Multivitamins/Vitamin C (Multivitamin Tablet) 1 tab PO DAILY [facility] Stop: 03/09/21 08:59 Last Admin: 03/07/21 07:50 Dose: 1 tab Documented by: VALERIA Ondansetron HCl (Ondansetron Hcl 4 Mg/2 Ml Vial) 4 mg IVPUSH Q8H PRN PRN Reason: Nausea Last Admin: 03/07/21 10:32 Dose: 4 mg Documented by: VALERIA Phenobarbital (Phenobarbital 30 Mg Tablet) 60 mg PO BID [facility]; Protocol Stop: 03/08/21 09:01 Last Admin: 03/07/21 07:49 Dose: 60 mg Documented by: VALERIA Phenobarbital (Phenobarbital 30 Mg Tablet) 30 mg PO BID [facility]; Protocol Stop: 03/10/21 09:01 Phenobarbital (Phenobarbital 30 Mg Tablet) 30 mg PO DAILY [facility]; Protocol Stop: 03/12/21 09:01 Senna (Sennosides 8.6 Mg Tablet) 17.2 mg PO BEDTIME PRN PRN Reason: Constipation Sodium Chloride (0.9 % Sodium Chloride Flush 3 Ml Syringe) 3 ml IVFLUSH QSHIFT [facility] Last Admin: 03/07/21 07:54 Dose: 3 ml Documented by: VALERIA Thiamine HCl (Thiamine Hcl 100 Mg Tablet) 100 mg PO DAILY [facility] Stop: 03/09/21 08:59 Last Admin: 03/07/21 07:53 Dose: 100 mg Documented by: VALERIA Venlafaxine HCl (Venlafaxine Hcl Er 150 Mg Cap.Er.24h) 150 mg PO DAILY [facility] Last Admin: 03/07/21 07:51 Dose: 150 mg Documented by: VALERIA Vilazodone HCl (Vilazodone Hcl 20 Mg Tablet) 20 mg PO DAILY [facility] Last Admin: 03/07/21 07:51 Dose: 20 mg Documented by: VALERIA Labs CBC & Chem 7: 03/07/21 05:07 03/07/21 05:07 Labs: Laboratory Results - last 24 hr 03/06/21 03/07/21 03/07/21 18:33 05:07 05:07 MCV 90.8 MCH 27.3 MCHC 30.1 L RDW 19.7 H Plt Count 174 MPV 12.7 H Immature Gran % (Auto) 0.5 H Neut % (Auto) 82.0 H Lymph % (Auto) 9.0 L [place] % (Auto) 7.4 Eos % (Auto) 0.9 Baso % (Auto) 0.2 Lymph # (Auto) 0.5 L [place] # (Auto) 0.4 Eos # (Auto) 0.1 Baso # (Auto) 0.0 Abs Immat Gran (auto) 0.03 Absolute Neuts (auto) 4.6 Absolute Nucleated RBC 0.000 Nucleated RBC % (auto) 0.0 Anion Gap 14 Estim Creat Clear Calc 109.1 Estimated GFR > 60 POC Glucose 91 Random Glucose 98 Calcium 8.2 L Total Bilirubin 0.6 Direct Bilirubin 0.4 AST 250 H ALT 210 H Alkaline Phosphatase 122 H Total Protein 5.7 L Albumin 2.9 L 03/07/21 05:07 MCV MCH MCHC RDW Plt Count MPV Immature Gran % (Auto) Neut % (Auto) Lymph % (Auto) [place] % (Auto) Eos % (Auto) Baso % (Auto) Lymph # (Auto) [place] # (Auto) Eos # (Auto) Baso # (Auto) Abs Immat Gran (auto) Absolute Neuts (auto) Absolute Nucleated RBC Nucleated RBC % (auto) Anion Gap Estim Creat Clear Calc Estimated GFR POC Glucose Random Glucose Calcium Total Bilirubin Cancelled Direct Bilirubin Cancelled AST Cancelled ALT Cancelled Alkaline Phosphatase Cancelled Total Protein Cancelled Albumin Cancelled Microbiology Microbiology Results: Microbiology 03/06/21 Unknown Urine Culture - Final Urine clean catch - Urine mane top No growth. 03/06/21 01:21 Blood Culture - Preliminary Blood - Venous No growth after 24 hours. 03/06/21 01:21 Blood Culture - Preliminary Blood - Venous No growth after 24 hours. Assessment and Plan (1) Atrial fibrillation with RVR: Status: Acute (2) ARIAN (acute kidney injury): Status: Acute (3) Morbid obesity: Status: Acute (4) Dyslipidemia: Status: Acute Assessment and Plan: 60-year-old male with a past medical history of hypertension, hyperlipidemia, CHF, history of pulmonary embolism, AFib on Eliquis, anemia, anxiety, depression, history of thoracic aortic aneurysm, history of gastric bypass surgery, alcohol abuse presented to the hospital today with a chief complaint of confusion. Toxic metabolic encephalopathy/ alcohol withdrawal.? Resolved patient awake alert seems to be at baseline CT head showed no acute findings, normal ammonia level Alcoholic hepatitis, mild nausea otherwise no abdominal pain, LFTs trending down, will strongly recommend to abstain from alcohol , continue supportive care follow LFTs, avoid hepatotoxins. Alcohol abuse and withdrawal: Continue phenobarb protocol.? Thiamine, folate, multivitamins.? Care team consult. ARIAN: Likely prerenal.? Creatinine normalized will discontinue IV fluids Hypokalemia:? Repleted and normalized. Recent UTI:? Patient finished course of? Keflex as outpatient.? Repeat urinalysis negative Chronic atrial fibrillation with rapid ventricular response Ventricular rate improved after IV Cardizem, continue home dose of metoprolol and diltiazem , continue Eliquis History of thoracic aortic aneurysm:? Maintain good blood pressure control no complain of chest pain. Morbid obesity will recommend weight reduction and low-calorie diet History of hypertension /hyperlipidemia:? Continue home medications.? History of anxiety / depression: Continue home medications. DVT prophylaxis:?on Eliquis Code status:? full code?spoke with patient's son Royer Pierson [phone] and he wishes him to be full code. Quality Stroke Does the patient have a stroke diagnosis?: No VTE Prior VTE?: No VTE Risk Level:: Medical - moderate - high VTE Device Contraindication: Treatment Not Indicated VTE Drug Contraindication: N/A - Med Ordered
--- NOTE | 2021-03-07 19:54 | MHC.RECOVSUP ---
? Reason for consult:Recovery Support o ? ? ?Current location: ?[facility] o ? ? ?Identified substance use concern: Alcohol? Support ? ?Intervention: o Harm reduction discussion ? Plan: o Follow up tomorrow ? Patient to follow up with [facility] after discharge ? Additional information:?Was able to connect with patient and reviewed harm reduction strategies. Patient is interested in treatment for substance use disorder to alcohol. Care team was notified.
[2021-03-07] MEDS: Atorvastatin Calcium 40 MG TABLET PO (20:16)
[2021-03-07] MEDS: Zolpidem Tartrate 5 MG TABLET PO (23:41)
[2021-03-08] VITALS (7 sets, daily range): BP systolic 111–165; BP diastolic 70–90; PULSE 78–114; RESP 18–20; TEMP 35.7–36.8; O2SAT 95–97
[2021-03-08] MEDS: Acetaminophen 325 MG TABLET 650 MG PO ×2 (00:19→16:39)
--- NOTE | 2021-03-08 03:17 | MHC.PIE ---
P: Pt requested for Ambien for sleep and refused Melatonin at around 2100 I: Dr. Boyd was notified and ordered Ambien, pt was asleep when med was available then awaken around midnight, med given. E: slept fairly after.
[2021-03-08] MEDS: Multivitamin TABLET 1 TAB PO (09:11)
[2021-03-08] MEDS: Metoprolol Tartrate 25 MG TABLET 75 MG PO ×2 (09:11→20:06)
[2021-03-08] MEDS: Thiamine HCL 100 MG TABLET PO (09:11)
[2021-03-08] MEDS: dilTIAZem HCL CD 240 MG CAP.ER.DEG PO (09:11)
[2021-03-08] MEDS: ARIPiprazole 5 MG TABLET PO (09:11)
[2021-03-08] MEDS: Vilazodone HCL 20 MG TABLET PO (09:11)
[2021-03-08] MEDS: Famotidine 20 MG TABLET PO ×2 (09:11→20:09)
[2021-03-08] MEDS: Venlafaxine HCl ER 150 MG CAP.ER.24H PO (09:12)
[2021-03-08] MEDS: Folic Acid 1 MG TABLET PO (09:12)
[2021-03-08] MEDS: PHENobarbitaL 30 MG TABLET 60 MG PO (09:12)
[2021-03-08] MEDS: Apixaban 5 MG TABLET PO ×2 (09:12→20:06)
[2021-03-08] MEDS: 0.9 % Sodium Chloride Flush 3 ML SYRINGE IVFLUSH ×3 (09:14→20:08)
--- NOTE | 2021-03-08 10:27 | HO.PM.IMPN ---
Subjective Subjective Date of Service: 03/08/21 Interval History: Being followed for confusion/alcohol withdrawal patient awake alert this morning complaining of lack of sleep, admits that he takes Ambien 10 mg at night, denies chest pain, no palpitation, no fever no chills tolerating diet. Review of Systems General no headache, no dizziness, no fever chills.? CVS no chest pain, no palpitation.? Respiratory no cough, no sob Gastrointestinal? no nausea, no vomiting, no abdominal pain Review of Systems: Yes all other systems are reviewed and are negative Physical Exam Vital Signs: Vital Signs: Last Vital Signs Temp 97.2 F 03/08/21 08:00 Pulse 114 H 03/08/21 08:00 Resp 18 03/08/21 08:00 BP 165/90 H 03/08/21 08:00 Pulse Ox 97 03/08/21 08:00 Body Mass Index 42.7 General awake alert x3, no acute distress.? Neck? no JVD. CVS? irregular rate rhythm, tachy Respiratory lungs clear to auscultation, no respiratory distress, no wheeze, no rhonchi. Gastrointestinal abdomen soft,obese, nontender, bowel sounds audible,no guarding , no rigidity. Extremities no edema. Neuro nonfocal , speech clear. Skin no rash Musculoskeletal no deformity Objective Data Active Medications Acetaminophen (Acetaminophen 325 Mg Tablet) 650 mg PO Q6H PRN PRN Reason: Pain, Mild (Pain Scale 1-3) Last Admin: 03/08/21 00:19 Dose: 650 mg Documented by: HUSEYIN Apixaban (Apixaban 5 Mg Tablet) 5 mg PO BID [facility] Last Admin: 03/08/21 09:12 Dose: 5 mg Documented by: EMMA Aripiprazole (Aripiprazole 5 Mg Tablet) 5 mg PO DAILY [facility] Last Admin: 03/08/21 09:11 Dose: 5 mg Documented by: EMMA Atorvastatin Calcium (Atorvastatin Calcium 40 Mg Tablet) 40 mg PO BEDTIME [facility] Last Admin: 03/07/21 20:16 Dose: 40 mg Documented by: HUSEYIN Diltiazem HCl (Diltiazem Hcl Cd 240 Mg Cap.Er.Deg) 240 mg PO DAILY [facility]; Protocol Last Admin: 03/08/21 09:11 Dose: 240 mg Documented by: EMMA Famotidine (Famotidine 20 Mg Tablet) 20 mg PO BID [facility] Last Admin: 03/08/21 09:11 Dose: 20 mg Documented by: EMMA Folic Acid (Folic Acid 1 Mg Tablet) 1 mg PO DAILY [facility] Stop: 03/09/21 08:59 Last Admin: 03/08/21 09:12 Dose: 1 mg Documented by: EMMA Loperamide HCl (Loperamide Hcl 2 Mg Capsule) 2 mg PO Q6H PRN PRN Reason: diarrhea Medication (No Benzodiazepines) 1 each MISCELLANE DAILY [facility] Melatonin (Melatonin 3 Mg Tablet) 6 mg PO BEDTIME PRN PRN Reason: Insomnia Metoprolol Tartrate (Metoprolol Tartrate 25 Mg Tablet) 75 mg PO BID [facility]; Protocol Last Admin: 03/08/21 09:11 Dose: 75 mg Documented by: EMMA Multivitamins/Vitamin C (Multivitamin Tablet) 1 tab PO DAILY [facility] Stop: 03/09/21 08:59 Last Admin: 03/08/21 09:11 Dose: 1 tab Documented by: EMMA Ondansetron HCl (Ondansetron Hcl 4 Mg/2 Ml Vial) 4 mg IVPUSH Q8H PRN PRN Reason: Nausea Last Admin: 03/07/21 10:32 Dose: 4 mg Documented by: VALERIA Phenobarbital (Phenobarbital 30 Mg Tablet) 30 mg PO BID [facility]; Protocol Stop: 03/10/21 09:01 Phenobarbital (Phenobarbital 30 Mg Tablet) 30 mg PO DAILY [facility]; Protocol Stop: 03/12/21 09:01 Senna (Sennosides 8.6 Mg Tablet) 17.2 mg PO BEDTIME PRN PRN Reason: Constipation Sodium Chloride (0.9 % Sodium Chloride Flush 3 Ml Syringe) 3 ml IVFLUSH QSHIFT [facility] Last Admin: 03/08/21 09:14 Dose: 3 ml Documented by: EMMA Thiamine HCl (Thiamine Hcl 100 Mg Tablet) 100 mg PO DAILY [facility] Stop: 03/09/21 08:59 Last Admin: 03/08/21 09:11 Dose: 100 mg Documented by: EMMA Venlafaxine HCl (Venlafaxine Hcl Er 150 Mg Cap.Er.24h) 150 mg PO DAILY [facility] Last Admin: 03/08/21 09:12 Dose: 150 mg Documented by: EMMA Vilazodone HCl (Vilazodone Hcl 20 Mg Tablet) 20 mg PO DAILY [facility] Last Admin: 03/08/21 09:11 Dose: 20 mg Documented by: EMMA Labs CBC & Chem 7: 03/07/21 05:07 03/07/21 05:07 Microbiology Microbiology Results: Microbiology 03/06/21 01:21 Blood Culture - Preliminary Blood - Venous No growth after 48 hours. 03/06/21 01:21 Blood Culture - Preliminary Blood - Venous No growth after 48 hours. 03/06/21 Unknown Urine Culture - Final Urine clean catch - Urine mane top No growth. Assessment and Plan (1) Alcohol withdrawal delirium: Status: Acute (2) Atrial fibrillation with RVR: Status: Acute (3) ARIAN (acute kidney injury): Status: Acute (4) Morbid obesity: Status: Acute (5) Insomnia: Status: Acute Assessment and Plan: 60-year-old male with a past medical history of hypertension, hyperlipidemia, CHF, history of pulmonary embolism, AFib on Eliquis, anemia, anxiety, depression, history of thoracic aortic aneurysm, history of gastric bypass surgery, alcohol abuse presented to the hospital today with a chief complaint of confusion. Toxic metabolic encephalopathy/ alcohol withdrawal Resolved patient awake alert seems to be at baseline CT head showed no acute findings, normal ammonia level Alcoholic hepatitis, no abdominal pain, LFTs trending down, strongly recommend to abstain from alcohol , continue supportive care follow LFTs, avoid hepatotoxins. Low albumin receiving supplements. Alcohol abuse and withdrawal: Continue phenobarb protocol.? Thiamine, folate, multivitamins.? Care team consult pending ARIAN: Resolved was Likely prerenal.? Hypokalemia:? Repleted and normalized. Recent UTI:? Patient finished course of? Keflex as outpatient.? Repeat urinalysis negative Chronic atrial fibrillation with rapid ventricular response Noted to have rapid ventricular rate this morning likely due to lack of sleep, continue home dose of metoprolol and diltiazem , continue Eliquis If continued to have rapid ventricular rate will increase dose of metoprolol History of thoracic aortic aneurysm:? Maintain good blood pressure control no complain of chest pain. Morbid obesity recommend weight reduction and low-calorie diet History of hypertension /hyperlipidemia:? Continue home medications.? History of anxiety / depression: Continue home medications. History of insomnia will place on Ambien 10 mg at bedtime DVT prophylaxis:?on Eliquis Code status:? full code? Quality Stroke Does the patient have a stroke diagnosis?: No VTE Prior VTE?: No VTE Risk Level:: Medical - moderate - high VTE Device Contraindication: Treatment Not Indicated VTE Drug Contraindication: N/A - Med Ordered
--- NOTE | 2021-03-08 14:25 | MHC.RECOVRN ---
T/w met with pt in 443 after consult placed to CARE Team for alcohol use. T/w familiar with pt from previous consults. Pt disinterested in discussion regarding alcohol use and recovery. Pt denies alcohol use since last admission and declines all supports and services, including medication for alcohol use disorder. Pt reports interest in CSS down the road. Pt provided with resources and list of CSS facilities. Denies questions or concerns. T/w available as needed.
--- NOTE | 2021-03-08 14:44 | MHC.CM.PN ---
per rounds pt not ready for dc the plan remanins home with cher
[2021-03-08] MEDS: Atorvastatin Calcium 40 MG TABLET PO (20:06)
[2021-03-08] MEDS: Zolpidem Tartrate 5 MG TABLET 10 MG PO (20:07)
[2021-03-08] MEDS: traMADoL HCL 50 MG TABLET PO (20:07)
[2021-03-08] MEDS: PHENobarbitaL 30 MG TABLET PO (20:07)
[2021-03-09] VITALS (8 sets, daily range): BP systolic 116–152; BP diastolic 75–95; PULSE 78–110; RESP 16–20; TEMP 36.1–36.2; O2SAT 95–97
[2021-03-09] MEDS: Acetaminophen 325 MG TABLET 650 MG PO ×3 (00:09→21:20)
[2021-03-09 07:14] LABS: Alanine Aminotransferase 151 U/L (0-40); Alkaline Phosphatase 114 U/L (39-117); Anion Gap 13 (12-20); Aspartate Amino Transferase 110 U/L (5-37); Bilirubin Direct 0.3 mg/dL (0.0-0.5); Bilirubin Total 0.5 mg/dL (0.0-1.0); Blood Urea Nitrogen 12 mg/dL (9-16); Calcium 8.5 mg/dL (8.4-10.2); Carbon Dioxide 27 mmol/L (22-29); Chloride 105 mmol/L (96-108); Creatinine Clr Calc Pharmacy 119.5; Estimated Glomerular Filt Rate > 60; Glucose Random 92 mg/dL (60-115); Potassium 3.6 mmol/L (3.3-5.1); Sodium 141 mmol/L (135-145); Total Protein 6.1 g/dL (6.5-8.0)
[2021-03-09] MEDS: PHENobarbitaL 30 MG TABLET PO (08:35)
[2021-03-09] MEDS: ARIPiprazole 5 MG TABLET PO (08:35)
[2021-03-09] MEDS: Vilazodone HCL 20 MG TABLET PO (08:35)
[2021-03-09] MEDS: Venlafaxine HCl ER 150 MG CAP.ER.24H PO (08:35)
[2021-03-09] MEDS: Apixaban 5 MG TABLET PO ×2 (08:35→21:18)
[2021-03-09] MEDS: 0.9 % Sodium Chloride Flush 3 ML SYRINGE IVFLUSH ×3 (08:35→21:20)
[2021-03-09] MEDS: dilTIAZem HCL CD 240 MG CAP.ER.DEG PO (08:35)
[2021-03-09] MEDS: Famotidine 20 MG TABLET PO ×2 (08:36→21:18)
[2021-03-09] MEDS: Metoprolol Tartrate 25 MG TABLET 75 MG PO ×2 (08:36→21:18)
--- NOTE | 2021-03-09 12:23 | MHC.CM.PN ---
pt cannot return to [facility] today as he had pheno at 8:30 this am
--- NOTE | 2021-03-09 12:30 | HO.PM.IMPN ---
Subjective Subjective Date of Service: 03/09/21 Interval History: Being followed for confusion, at present patient awake alert complaining of right hip and leg pain requesting for narcotics, denies fall, denies use of alcohol since in nursing facility, denies illicit drug use, has been ambulating in room with walker, feels he needs more help in rehab due to poor balance. Review of Systems General no headache, no dizziness, no fever chills.? CVS no chest pain, no palpitation.? Respiratory no cough, no sob Gastrointestinal? no nausea, no vomiting, no abdominal pain Skin no rash Musculoskeletal right hip and leg pain Review of Systems: Yes all other systems are reviewed and are negative Physical Exam Vital Signs: Vital Signs: Last Vital Signs Temp 97.2 F 03/09/21 11:13 Pulse 87 03/09/21 11:13 Resp 16 03/09/21 11:13 BP 122/91 H 03/09/21 11:13 Pulse Ox 95 03/09/21 11:13 BMI result Body Mass Index 42.7 General awake aler t x3, no acute dis tress.? Neck? no J VD. CVS? irregular rate rhythm, tach y Respiratory lung s clear to auscult ation, no respirat ory distress, no w heeze, no rhonchi. Gastrointestinal abdomen soft,obese , nontender, bowel sounds audible,no guarding , no rig idity. Extremities no edema. Neuro n onfocal , speech c lear. Skin no rash Musculoskeletal r ight hip, right kn ee ,good range of motion, no limitat ion of activity, n o deformity Objective Data Active Medications Acetaminophen (Acetaminophen 325 Mg Tablet) 650 mg PO Q6H PRN PRN Reason: Pain, Mild (Pain Scale 1-3) Last Admin: 03/09/21 00:09 Dose: 650 mg Documented by: NAZARIO Apixaban (Apixaban 5 Mg Tablet) 5 mg PO BID [facility] Last Admin: 03/09/21 08:35 Dose: 5 mg Documented by: MARIBEL Aripiprazole (Aripiprazole 5 Mg Tablet) 5 mg PO DAILY [facility] Last Admin: 03/09/21 08:35 Dose: 5 mg Documented by: MARIBEL Atorvastatin Calcium (Atorvastatin Calcium 40 Mg Tablet) 40 mg PO BEDTIME [facility] Last Admin: 03/08/21 20:06 Dose: 40 mg Documented by: NAZARIO Diltiazem HCl (Diltiazem Hcl Cd 240 Mg Cap.Er.Deg) 240 mg PO DAILY [facility]; Protocol Last Admin: 03/09/21 08:35 Dose: 240 mg Documented by: MARIBEL Famotidine (Famotidine 20 Mg Tablet) 20 mg PO BID [facility] Last Admin: 03/09/21 08:36 Dose: 20 mg Documented by: MARIBEL Loperamide HCl (Loperamide Hcl 2 Mg Capsule) 2 mg PO Q6H PRN PRN Reason: diarrhea Medication (No Benzodiazepines) 1 each MISCELLANE DAILY [facility] Melatonin (Melatonin 3 Mg Tablet) 6 mg PO BEDTIME PRN PRN Reason: Insomnia Metoprolol Tartrate (Metoprolol Tartrate 25 Mg Tablet) 75 mg PO BID [facility]; Protocol Last Admin: 03/09/21 08:36 Dose: 75 mg Documented by: MARIBEL Ondansetron HCl (Ondansetron Hcl 4 Mg/2 Ml Vial) 4 mg IVPUSH Q8H PRN PRN Reason: Nausea Last Admin: 03/07/21 10:32 Dose: 4 mg Documented by: VALERIA Senna (Sennosides 8.6 Mg Tablet) 17.2 mg PO BEDTIME PRN PRN Reason: Constipation Sodium Chloride (0.9 % Sodium Chloride Flush 3 Ml Syringe) 3 ml IVFLUSH QSHIFT [facility] Last Admin: 03/09/21 08:35 Dose: 3 ml Documented by: MARIBEL Venlafaxine HCl (Venlafaxine Hcl Er 150 Mg Cap.Er.24h) 150 mg PO DAILY [facility] Last Admin: 03/09/21 08:35 Dose: 150 mg Documented by: MARIBEL Vilazodone HCl (Vilazodone Hcl 20 Mg Tablet) 20 mg PO DAILY [facility] Last Admin: 03/09/21 08:35 Dose: 20 mg Documented by: MARIBEL Zolpidem Tartrate (Zolpidem Tartrate 5 Mg Tablet) 10 mg PO BEDTIME [facility] Last Admin: 03/08/21 20:07 Dose: 10 mg Documented by: NAZARIO Labs CBC & Chem 7: 03/07/21 05:07 03/09/21 05:56 Labs: Laboratory Results - last 24 hr 03/09/21 05:56 Anion Gap 13 Estim Creat Clear Calc 119.5 Estimated GFR > 60 Random Glucose 92 Calcium 8.5 Total Bilirubin 0.5 Direct Bilirubin 0.3 AST 110 H ALT 151 H Alkaline Phosphatase 114 Total Protein 6.1 L Albumin 3.0 L Assessment and Plan (1) Atrial fibrillation with RVR: Status: Acute (2) ARIAN (acute kidney injury): Status: Acute (3) Chronic atrial fibrillation: Status: Acute (4) Morbid obesity: Status: Acute (5) Insomnia: Status: Acute Assessment and Plan: 60-year-old male with a past medical history of hypertension, hyperlipidemia, CHF, history of pulmonary embolism, AFib on Eliquis, anemia, anxiety, depression, history of thoracic aortic aneurysm, history of gastric bypass surgery, alcohol abuse presented to the hospital today with a chief complaint of confusion. Toxic metabolic encephalopathy Unknown etiology, all workup including CT head, ammonia level, lactic acid, urinalysis all within normal range, except noted to have elevated LFTs Confusion resolved, patient awake alert denies alcohol use currently residing in rehab recuperating from recent abdominal surgery Initially confusion thought to be related to alcohol withdrawal therefore treated with phenobarb Will DC phenobarb protocol, alcohol level less than 10 on admission. Transaminitis, patient denies recent use of alcohol, question viral hepatitis versus Alcoholic hepatitis, no abdominal pain, LFTs trending down, strongly recommend to abstain from alcohol , continue supportive care avoid hepatotoxins. Check hepatitis serology, no new medication. Low albumin receiving supplements. History of Alcohol abuse and withdrawal: Treated with phenobarb protocol initially with concern for alcohol withdrawal, however patient denies use of alcohol. Continue Thiamine, folate, multivitamins. Seen by care team? ARIAN:? Resolved was Likely prerenal.? Hypokalemia:? Repleted and normalized. Recent UTI:? Patient finished course of? Keflex as outpatient.? Repeat urinalysis negative Chronic atrial fibrillation with rapid ventricular response Noted to have rapid ventricular rate initially treated with IV Cardizem, now on metoprolol and diltiazem , continue Eliquis, noted to have few elevated heart rates patient remained asymptomatic. If continued to have rapid ventricular rate will increase dose of metoprolol History of thoracic aortic aneurysm:? Maintain good blood pressure control, no complain of chest pain. Morbid obesity recommend weight reduction and low-calorie diet History of hypertension /hyperlipidemia:? Continue home medications.? History of anxiety / depression: Continue home medications. History of insomnia will place on Ambien 10 mg at bedtime DVT prophylaxis:?on Eliquis Disposition seen by physical therapy they recommend to return back to nursing facility Code status:? full code? Quality Stroke Does the patient have a stroke diagnosis?: No VTE Prior VTE?: No VTE Risk Level:: Medical - moderate - high VTE Device Contraindication: Treatment Not Indicated VTE Drug Contraindication: N/A - Med Ordered
[2021-03-09] MEDS: Atorvastatin Calcium 40 MG TABLET PO (21:18)
[2021-03-09] MEDS: Zolpidem Tartrate 5 MG TABLET 10 MG PO (21:20)
[2021-03-10] VITALS (8 sets, daily range): BP systolic 109–153; BP diastolic 62–90; PULSE 85–105; RESP 18–20; TEMP 36.1–36.9; O2SAT 94–99
[2021-03-10 05:02] LABS: Hepatitis A Antibody IgM 0.15 Index (0-0.79); Hepatitis B Core Antibody Nonreactive (Nonreactive); Hepatitis B Surface Antigen Negative (Negative); ~Hepatitis A Antibody IgM Nonreactive (Nonreactive)
[2021-03-10 05:06] LABS: ~Hepatitis B Surface Antibody NONREACTIVE (Nonreactive); ~Hepatitis C Antibody Nonreactive (Nonreactive)
[2021-03-10 05:23] LABS: Appearance Urine CLEAR; Color Urine YELLOW; Glucose Urine UA NEG (NEG); Leukocyte Esterase Urine NEG (NEG); Nitrite Urine NEG (NEG); Specific Gravity - Urine <= 1.005 (1.005-1.025); Urine Blood TRACE (NEG); Urine Ketones NEG (NEG); Urine Protein NEG (NEG-TRACE)
[2021-03-10 08:39] LABS: RBC Urine 0-2 /HPF (0); WBC Urine 0-2 /HPF (0-4)
[2021-03-10] MEDS: Apixaban 5 MG TABLET PO ×2 (08:57→20:41)
[2021-03-10] MEDS: Vilazodone HCL 20 MG TABLET PO (08:57)
[2021-03-10] MEDS: Famotidine 20 MG TABLET PO ×2 (08:57→20:40)
[2021-03-10] MEDS: dilTIAZem HCL CD 240 MG CAP.ER.DEG PO (08:57)
[2021-03-10] MEDS: ARIPiprazole 5 MG TABLET PO (08:57)
[2021-03-10] MEDS: Venlafaxine HCl ER 150 MG CAP.ER.24H PO (08:57)
[2021-03-10] MEDS: Metoprolol Tartrate 25 MG TABLET 75 MG PO (08:57)
[2021-03-10] MEDS: 0.9 % Sodium Chloride Flush 3 ML SYRINGE IVFLUSH ×3 (08:58→20:41)
--- NOTE | 2021-03-10 10:39 | PC.NURSE ---
1030 HR elevated to 160's when ambulating. Denies any s/s
--- NOTE | 2021-03-10 12:15 | MHC.CM.PN ---
pt denied by [facility] , before he was dcd from [facility] he was defacating on facilities chairs and running around the facility naked he has azar to [facility] in in [place] referrals made to additional rehab facilities
[2021-03-10] MEDS: Loperamide HCl 2 MG CAPSULE PO (14:35)
--- NOTE | 2021-03-10 16:00 | P.PNIM_ITS ---
Subjective Subjective Date of Service: 03/10/21 Interval History: HR up to 160s with ambulation/asymptomatic c/o back pain Review of Systems Review of Systems: Yes all other systems are reviewed and are negative Physical Exam Vital Signs: Vital Signs: Last Vital Signs Temp 98.1 F 03/10/21 15:17 Pulse 89 03/10/21 15:17 Resp 18 03/10/21 15:17 BP 109/62 03/10/21 15:17 Pulse Ox 98 03/10/21 15:17 BMI result Body Mass Index 42.7 Gen: in no acute distress HEENT: sclera anicteric, moist mucus membranes Neck: supple Lungs: clear to auscultation bilaterally Heart: irregularly irregular Abd: soft, non-tender, non-distended Ext: no edema Skin: warm/well-perfused Neuro: alert and oriented x3, no focal findings Psych: appropriate affect Objective Data Active Medications Acetaminophen (Acetaminophen 325 Mg Tablet) 650 mg PO Q6H PRN PRN Reason: Pain, Mild (Pain Scale 1-3) Last Admin: 03/09/21 21:20 Dose: 650 mg Documented by: AMBER Apixaban (Apixaban 5 Mg Tablet) 5 mg PO BID [facility] BEDS AT [facility] Last Admin: 03/10/21 08:57 Dose: 5 mg Documented by: QUIN Aripiprazole (Aripiprazole 5 Mg Tablet) 5 mg PO DAILY [facility] 234 BEDS AT [facility] Last Admin: 03/10/21 08:57 Dose: 5 mg Documented by: QUIN Atorvastatin Calcium (Atorvastatin Calcium 40 Mg Tablet) 40 mg PO BEDTIME [facility] 234 BEDS AT [facility] Last Admin: 03/09/21 21:18 Dose: 40 mg Documented by: AMBER Diltiazem HCl (Diltiazem Hcl Cd 240 Mg Cap.Er.Deg) 240 mg PO DAILY [facility] 234 BEDS AT [facility]; Protocol Last Admin: 03/10/21 08:57 Dose: 240 mg Documented by: QUIN Famotidine (Famotidine 20 Mg Tablet) 20 mg PO BID [facility] 234 BEDS AT [facility] Last Admin: 03/10/21 08:57 Dose: 20 mg Documented by: QUIN Loperamide HCl (Loperamide Hcl 2 Mg Capsule) 2 mg PO Q6H PRN PRN Reason: diarrhea Last Admin: 03/10/21 14:35 Dose: 2 mg Documented by: QUIN Medication (No Benzodiazepines) 1 each MISCELLANE DAILY [facility] 234 BEDS AT [facility] Melatonin (Melatonin 3 Mg Tablet) 6 mg PO BEDTIME PRN PRN Reason: Insomnia Metoprolol Tartrate (Metoprolol Tartrate 25 Mg Tablet) 75 mg PO BID [facility] 234 BEDS AT [facility]; Protocol Last Admin: 03/10/21 08:57 Dose: 75 mg Documented by: QUIN Ondansetron HCl (Ondansetron Hcl 4 Mg/2 Ml Vial) 4 mg IVPUSH Q8H PRN PRN Reason: Nausea Last Admin: 03/07/21 10:32 Dose: 4 mg Documented by: VALERIA Senna (Sennosides 8.6 Mg Tablet) 17.2 mg PO BEDTIME PRN PRN Reason: Constipation Sodium Chloride (0.9 % Sodium Chloride Flush 3 Ml Syringe) 3 ml IVFLUSH QSHIFT [facility]S [facility]CLUDE 234 BEDS AT [facility] Last Admin: 03/10/21 14:36 Dose: 3 ml Documented by: QUIN Venlafaxine HCl (Venlafaxine Hcl Er 150 Mg Cap.Er.24h) 150 mg PO DAILY [facility] 234 BEDS AT [facility] Last Admin: 03/10/21 08:57 Dose: 150 mg Documented by: QUIN Vilazodone HCl (Vilazodone Hcl 20 Mg Tablet) 20 mg PO DAILY [facility] 234 BEDS AT [facility] Last Admin: 03/10/21 08:57 Dose: 20 mg Documented by: QUIN Zolpidem Tartrate (Zolpidem Tartrate 5 Mg Tablet) 10 mg PO BEDTIME [facility] 234 BEDS AT [facility] Last Admin: 03/09/21 21:20 Dose: 10 mg Documented by: AMBER Labs CBC & Chem 7: 03/07/21 05:07 03/09/21 05:56 Labs: Laboratory Results - last 24 hr 03/09/21 03/10/21 14:15 05:08 Urine Color YELLOW Urine Appearance CLEAR Urine pH 6.0 Ur Specific [place] <= 1.005 Urine Protein NEG Urine Glucose (UA) NEG Urine Ketones NEG Urine Blood TRACE Urine Nitrite NEG Ur Leukocyte Esterase NEG Urine RBC 0-2 Urine WBC 0-2 Ur Squamous Epith Cells NONE Urine Bacteria NONE Hepatitis A IgM Ab Nonreactive Hep Bs Antigen Negative Hep Bs Antibody NONREACTIVE Hep B Core Total Ab Nonreactive Hepatitis C Ab (EIA) Nonreactive Assessment and Plan (1) Atrial fibrillation with RVR: Status: Acute (2) ARIAN (acute kidney injury): Status: Acute (3) Chronic atrial fibrillation: Status: Acute (4) Morbid obesity: Status: Acute (5) Insomnia: Status: Acute Assessment and Plan: hospital d#5 60yo M with HTN, HLD, HFpEF, hx PE, AF on apxiaban, anxiety, depression, thoracic aortic aneurysm, hx gastric bypass surgery, EtOH abuse admitted with confusion, encephalopathy # AF/RVR - initially got IV diltiazem; now on diltiazem PO + metoprolol. increase metoprolol dose. # toxic metabolic encephalopathy - unknown etiology; all workup including CT head, ammonia level, lactic acid, urinalysis all within normal range, except noted to have elevated LFTs - confusion resolved; patient awake and alert and denies alcohol use for past month; currently residing in rehab recuperating from recent abdominal surgery - initially confusion thought to be related to alcohol withdrawal and therefore treated with phenobarb- discontinued # transaminasemia - AST>ALT but pt denies EtOH - viral serologies negative - LFTs improving - recommended abstinence from EtOH # hx alcohol abuse - continue MVI, thiamine, folate # malnutrition - dietary supplements # ARIAN - resolved, likely was prerenal # hypoK - repleted # recent UTI - s/p cephalexin course # thoracic aortic aneurysm - tight BP control # HTN - diltiazem, metoprolol # HLD - statin # morbid obesity - consider outpt bariatrics referral # anxiety/depression - continue vilazodone, aripiprazole, venlafaxine # VTE ppx - apixaban # dispo - plan STR @ [facility] Quality Stroke Does the patient have a stroke diagnosis?: No VTE Prior VTE?: No VTE Risk Level:: Medical - moderate - high VTE Device Contraindication: Treatment Not Indicated VTE Drug Contraindication: N/A - Med Ordered
[2021-03-10] MEDS: Cyclobenzaprine HCl 5 MG TABLET PO (17:53)
[2021-03-10] MEDS: Zolpidem Tartrate 5 MG TABLET 10 MG PO (20:40)
[2021-03-10] MEDS: Metoprolol Tartrate 100 MG TABLET PO (20:40)
[2021-03-10] MEDS: Atorvastatin Calcium 40 MG TABLET PO (20:41)
[2021-03-10] MEDS: Melatonin 3 MG TABLET 6 MG PO (20:50)
[2021-03-10] MEDS: oxyCODONE HCl ER 10 MG TAB.ER.12H PO (23:05)
[2021-03-11] VITALS (9 sets, daily range): BP systolic 119–147; BP diastolic 65–98; PULSE 80–92; RESP 18–20; TEMP 36.1–37.3; O2SAT 96–98
[2021-03-11] MEDS: Cyclobenzaprine HCl 5 MG TABLET PO (02:22)
[2021-03-11] MEDS: Famotidine 20 MG TABLET PO ×2 (08:00→20:15)
[2021-03-11] MEDS: ARIPiprazole 5 MG TABLET PO (08:00)
[2021-03-11] MEDS: Apixaban 5 MG TABLET PO ×2 (08:00→20:15)
[2021-03-11] MEDS: Vilazodone HCL 20 MG TABLET PO (08:00)
[2021-03-11] MEDS: 0.9 % Sodium Chloride Flush 3 ML SYRINGE IVFLUSH ×2 (08:01→16:16)
[2021-03-11] MEDS: dilTIAZem HCL CD 240 MG CAP.ER.DEG PO (08:01)
[2021-03-11] MEDS: Venlafaxine HCl ER 150 MG CAP.ER.24H PO (08:01)
[2021-03-11] MEDS: Metoprolol Tartrate 100 MG TABLET PO ×2 (08:01→20:15)
--- NOTE | 2021-03-11 10:03 | P.CONGS_ITS ---
History of Present Illness Consult details Consult date: 03/11/21 Narrative: 60M admitted last [id number] for confusion, referred for removal of skin atif. He had undergone repair of an incisionl hernia asn an inpatient with Dr. Blunt last February 08, 2021. It does not appear that he has gone for his office ffup. He has multiple medical problems, including ETOH, obesity, and now has atrial fibrillation. He currently denies Gi complaints or any complaints with regards to his hernia repair. Review of Systems Constitutional: Constitutional: Denies chills and Denies fever(s) Cardiovascular: Cardiovascular: Denies chest pain, Denies dyspnea and Denies dyspnea on exertion Respiratory: Respiratory: Denies cough, Denies dyspnea and Denies dyspnea on exertion Gastrointestinal: Gastrointestinal: Denies hematochezia and Denies change in bowel habits Genitourinary: Genitourinary: Denies hematuria and Denies difficulty urinating Musculoskeletal: Musculoskeletal: Reports back pain, Reports arthralgias and Reports limited range of motion Neurologic: Denies focal weakness and Denies convulsions Psychiatric: Psychiatric: Denies depression and Denies mood swings [facility] Past Medical History Medical History Alcohol dependence Alcohol intoxication Alcohol withdrawal Anemia Atrial fibrillation with RVR Chronic atrial fibrillation Depression Dyslipidemia Heart failure with left ventricular ejection fraction greater than or equal to 50 percent History of alcohol abuse Incarcerated incisional hernia Insomnia Metabolic acidosis with increased anion gap and accumulation of organic acids Morbid obesity Obesity Oral thrush Pulmonary embolism Thoracic aortic aneurysm Toenail deformity Family History Family History Mother No problems noted. Father No problems noted. Family/Other Substance use disorder Surgical History Surgical History (Updated 03/11/21 @ 10:04 by Bennie Rangel MD) History of incisional hernia repair History of inguinal hernia repair Hx of gastric bypass S/P cholecystectomy Social History Social History Household Members: None Household Members Other:: lives with mother Housing: Apartment Do you presently have visiting nurse or other home services: Yes Unable to assess alcohol history related to: Unable to respond Alcohol intake: current Alcohol intake frequency: other Alcohol type: beer and wine Patient Tobacco Use Status: Never used Tobacco e-Cigarette/Vaping Use: Never Used Second Hand Smoke Exposure: No Use of substances other than those prescribed or required for medical reasons: No Currently Displaying Signs/Symptoms of Drug Intoxication Withdrawal: No Advance Directives: No Advance Directives Information Provided: No (declined) Advance Directives on File: No Do you have thoughts of harming others: None Do you have a plan to hurt others: No Plan Recently lost weight without trying: Unsure How much weight loss: Unsure Nutrition Risks: No Nutritional Risk Poor oral hygiene: No service: No Current occupational status: retired [employer] Allergies Allergy/AdvReac Type Severity Reaction Status Date / Time No Known Allergies Allergy Verified 12/15/20 05:52 Active Medications: Current Medications Acetaminophen (Acetaminophen 325 Mg Tablet) 650 mg PO Q6H PRN PRN Reason: Pain, Mild (Pain Scale 1-3) Last Admin: 03/09/21 21:20 Dose: 650 mg Documented by: Apixaban (Apixaban 5 Mg Tablet) 5 mg PO BID [facility] Last Admin: 03/11/21 08:00 Dose: 5 mg Documented by: Aripiprazole (Aripiprazole 5 Mg Tablet) 5 mg PO DAILY [facility] Last Admin: 03/11/21 08:00 Dose: 5 mg Documented by: Atorvastatin Calcium (Atorvastatin Calcium 40 Mg Tablet) 40 mg PO BEDTIME [facility] Last Admin: 03/10/21 20:41 Dose: 40 mg Documented by: Cyclobenzaprine HCl (Cyclobenzaprine Hcl 5 Mg Tablet) 5 mg PO TID PRN PRN Reason: back pain Last Admin: 03/11/21 02:22 Dose: 5 mg Documented by: Diltiazem HCl (Diltiazem Hcl Cd 240 Mg Cap.Er.Deg) 240 mg PO DAILY [facility]; Protocol Last Admin: 03/11/21 08:01 Dose: 240 mg Documented by: Famotidine (Famotidine 20 Mg Tablet) 20 mg PO BID [facility] Last Admin: 03/11/21 08:00 Dose: 20 mg Documented by: Loperamide HCl (Loperamide Hcl 2 Mg Capsule) 2 mg PO Q6H PRN PRN Reason: diarrhea Last Admin: 03/10/21 14:35 Dose: 2 mg Documented by: Medication (No Benzodiazepines) 1 each MISCELLANE DAILY [facility] Melatonin (Melatonin 3 Mg Tablet) 6 mg PO BEDTIME PRN PRN Reason: Insomnia Last Admin: 03/10/21 20:50 Dose: 6 mg Documented by: Metoprolol Tartrate (Metoprolol Tartrate 100 Mg Tablet) 100 mg PO BID [facility]; Protocol Last Admin: 03/11/21 08:01 Dose: 100 mg Documented by: Ondansetron HCl (Ondansetron Hcl 4 Mg/2 Ml Vial) 4 mg IVPUSH Q8H PRN PRN Reason: Nausea Last Admin: 03/07/21 10:32 Dose: 4 mg Documented by: Senna (Sennosides 8.6 Mg Tablet) 17.2 mg PO BEDTIME PRN PRN Reason: Constipation Sodium Chloride (0.9 % Sodium Chloride Flush 3 Ml Syringe) 3 ml IVFLUSH QSHIFT [facility] Last Admin: 03/11/21 08:01 Dose: 3 ml Documented by: Venlafaxine HCl (Venlafaxine Hcl Er 150 Mg Cap.Er.24h) 150 mg PO DAILY [facility] Last Admin: 03/11/21 08:01 Dose: 150 mg Documented by: Vilazodone HCl (Vilazodone Hcl 20 Mg Tablet) 20 mg PO DAILY [facility] Last Admin: 03/11/21 08:00 Dose: 20 mg Documented by: Zolpidem Tartrate (Zolpidem Tartrate 5 Mg Tablet) 10 mg PO BEDTIME [facility] Last Admin: 03/10/21 20:40 Dose: 10 mg Documented by: Home Medications Medication Instructions Recorded Confirmed Last Taken Type acamprosate 333 mg tablet,delayed 666 mg PO TID 02/13/21 03/06/21 Unknown History release vilazodone 20 mg tablet (Viibryd) 20 mg PO DAILY 02/13/21 03/06/21 Unknown History Lactobacillus acidophilus 1 cap PO BID 03/06/21 03/06/21 Unknown History ciprofloxacin HCl 500 mg tablet 500 mg PO BID 03/06/21 03/06/21 Unknown History ondansetron HCl 4 mg tablet 4 mg PO Q8H PRN 03/06/21 03/06/21 Unknown History (Mindy) Physical Exam Vital Signs: Vital Signs: Last Vital Signs Temp 97.4 F 03/11/21 07:24 Pulse 81 03/11/21 08:01 Resp 18 03/11/21 07:24 BP 147/98 H 03/11/21 08:01 Pulse Ox 97 03/11/21 07:24 BMI result Body Mass Index 42.7 Const: General: comfortable and no acute distress Orientation/consciousness: patient oriented x3 Neck: Neck: Yes no lymphadenopathy Resp: Auscultation: clear to auscultation bilaterally Cardio: Rhythm: abnormal rhythm GI: Other: midline incision wellhealed, repair intact, atif in place Palpation (GI): Soft to palpation, nontender and no guarding Neuro: General: patient oriented x3 Results Labs Result diagrams: 03/07/21 05:07 03/09/21 05:56 Labs: Urine 03/06/21 03/10/21 Range/Units 06:40 05:08 Urine Color YELLOW YELLOW Urine Appearance CLEAR CLEAR Urine pH 6.0 6.0 (5.0-8.0) Ur Specific Orange >= 1.030 H <= 1.005 (1.005-1.025) Urine Protein 2+ H NEG (NEG-TRACE) MG/DL Urine Glucose (UA) NEG NEG (NEG) MG/DL All other labs normal. Assessment and Plan (1) History of incisional hernia repair: Status: Acute S/P repair of an incisional hernia last February 08. His incision is wellhealed. I removed all his skin atif. He is admitted for an unrelated medical problem. Ther rest of his management will be as per the Hospitalist service. Procedures Date of Service Date of Service: 03/11/21
[2021-03-11 10:33] LABS: COVID-19 Test Negative (Negative); IDNOW Serial# 08D9AD1C
[2021-03-11 10:37] LABS: Hematocrit 38.8 % (42.0-52.0); Mean Corpuscular HGB Conc 30.9 g/dl (31.0-36.0); Mean Corpuscular Hemoglobin 27.8 pg (27.0-33.0); Mean Corpuscular Volume 89.8 fL (80.0-98.0); Mean Platelet Volume 10.5 fL (9.4-12.4); Platelet Count 307 X10*3/uL (160-400); Red Blood Count 4.32 X10*6/uL (4.60-5.80); Red Cell Distribution Width 19.5 % (11.0-16.0); White Blood Count 7.1 X10*3/uL (4.8-10.8)
[2021-03-11 11:23] LABS: Alanine Aminotransferase 130 U/L (0-40); Albumin Level 3.3 g/dL (3.5-5.0); Alkaline Phosphatase 113 U/L (39-117); Anion Gap 10 (12-20); Aspartate Amino Transferase 104 U/L (5-37); Bilirubin Total 0.5 mg/dL (0.0-1.0); Blood Urea Nitrogen 12 mg/dL (9-16); Calcium 8.6 mg/dL (8.4-10.2); Carbon Dioxide 27 mmol/L (22-29); Chloride 106 mmol/L (96-108); Creatinine Clr Calc Pharmacy 130.7; Estimated Glomerular Filt Rate > 60; Glucose Random 102 mg/dL (60-115); Magnesium 2.1 mg/dL (1.6-2.6); Potassium 3.4 mmol/L (3.3-5.1); Sodium 140 mmol/L (135-145); Total Protein 6.4 g/dL (6.5-8.0)
--- NOTE | 2021-03-11 11:41 | HO.PM.IMPN ---
Subjective Subjective Date of Service: 03/11/21 Interval History: C/o R lower back pain radiating down leg No saddle anesthesia No bladder/bowel dysfunction No LE weakness but c/o R foot numbness RVR up to 120s this am; asymptomatic Review of Systems Review of Systems: Yes all other systems are reviewed and are negative Physical Exam Vital Signs: Vital Signs: Last Vital Signs Temp 97.0 F 03/11/21 11:10 Pulse 86 03/11/21 11:10 Resp 18 03/11/21 11:10 BP 138/91 H 03/11/21 11:10 Pulse Ox 98 03/11/21 11:10 BMI result Body Mass Index 42.7 Gen: in no acute distress HEENT: sclera anicteric, moist mucus membranes Neck: supple Lungs: clear to auscultation bilaterally Heart: irregularly irregular Abd: soft, non-tender, non-distended Ext: no edema Skin: warm/well-perfused Neuro: alert and oriented x3, no focal findings Psych: appropriate affect Objective Data Active Medications Acetaminophen (Acetaminophen 325 Mg Tablet) 650 mg PO Q6H PRN PRN Reason: Pain, Mild (Pain Scale 1-3) Last Admin: 03/09/21 21:20 Dose: 650 mg Documented by: AMBER Apixaban (Apixaban 5 Mg Tablet) 5 mg PO BID [facility] Last Admin: 03/11/21 08:00 Dose: 5 mg Documented by: FLORY Aripiprazole (Aripiprazole 5 Mg Tablet) 5 mg PO DAILY [facility] Last Admin: 03/11/21 08:00 Dose: 5 mg Documented by: FLORY Atorvastatin Calcium (Atorvastatin Calcium 40 Mg Tablet) 40 mg PO BEDTIME [facility] Last Admin: 03/10/21 20:41 Dose: 40 mg Documented by: NAZARIO Cyclobenzaprine HCl (Cyclobenzaprine Hcl 5 Mg Tablet) 5 mg PO TID PRN PRN Reason: back pain Last Admin: 03/11/21 02:22 Dose: 5 mg Documented by: YADY Diltiazem HCl (Diltiazem Hcl Cd 240 Mg Cap.Er.Deg) 240 mg PO DAILY [facility]; Protocol Last Admin: 03/11/21 08:01 Dose: 240 mg Documented by: FLORY Famotidine (Famotidine 20 Mg Tablet) 20 mg PO BID [facility] Last Admin: 03/11/21 08:00 Dose: 20 mg Documented by: FLORY Loperamide HCl (Loperamide Hcl 2 Mg Capsule) 2 mg PO Q6H PRN PRN Reason: diarrhea Last Admin: 03/10/21 14:35 Dose: 2 mg Documented by: QUIN Medication (No Benzodiazepines) 1 each MISCELLANE DAILY [facility] Melatonin (Melatonin 3 Mg Tablet) 6 mg PO BEDTIME PRN PRN Reason: Insomnia Last Admin: 03/10/21 20:50 Dose: 6 mg Documented by: NAZARIO Metoprolol Tartrate (Metoprolol Tartrate 100 Mg Tablet) 100 mg PO BID [facility]; Protocol Last Admin: 03/11/21 08:01 Dose: 100 mg Documented by: FLORY Ondansetron HCl (Ondansetron Hcl 4 Mg/2 Ml Vial) 4 mg IVPUSH Q8H PRN PRN Reason: Nausea Last Admin: 03/07/21 10:32 Dose: 4 mg Documented by: VALERIA Senna (Sennosides 8.6 Mg Tablet) 17.2 mg PO BEDTIME PRN PRN Reason: Constipation Sodium Chloride (0.9 % Sodium Chloride Flush 3 Ml Syringe) 3 ml IVFLUSH QSHIFT [facility] Last Admin: 03/11/21 08:01 Dose: 3 ml Documented by: FLORY Venlafaxine HCl (Venlafaxine Hcl Er 150 Mg Cap.Er.24h) 150 mg PO DAILY [facility] Last Admin: 03/11/21 08:01 Dose: 150 mg Documented by: FLORY Vilazodone HCl (Vilazodone Hcl 20 Mg Tablet) 20 mg PO DAILY [facility] Last Admin: 03/11/21 08:00 Dose: 20 mg Documented by: FLORY Zolpidem Tartrate (Zolpidem Tartrate 5 Mg Tablet) 10 mg PO BEDTIME [facility] Last Admin: 03/10/21 20:40 Dose: 10 mg Documented by: NAZARIO Labs CBC & Chem 7: 03/11/21 10:26 03/11/21 10:26 Labs: Laboratory Results - last 24 hr 03/11/21 03/11/21 03/11/21 10:10 10:26 10:26 MCV 89.8 MCH 27.8 MCHC 30.9 L RDW 19.5 H Plt Count 307 D MPV 10.5 Absolute Nucleated RBC 0.000 Nucleated RBC % (auto) 0.0 Anion Gap 10 L Estim Creat Clear Calc 130.7 Estimated GFR > 60 Random Glucose 102 Calcium 8.6 Magnesium 2.1 Total Bilirubin 0.5 AST 104 H ALT 130 H Alkaline Phosphatase 113 Total Protein 6.4 L Albumin 3.3 L COVID-19 (NOLAN) Negative COVID-19 Clin Com See Note Microbiology Microbiology Results: Microbiology 03/06/21 01:21 Blood Culture - Final Blood - Venous No growth after 5 days. 03/06/21 01:21 Blood Culture - Final Blood - Venous No growth after 5 days. Assessment and Plan (1) Atrial fibrillation with RVR: Status: Acute (2) ARIAN (acute kidney injury): Status: Acute (3) Chronic atrial fibrillation: Status: Acute (4) Morbid obesity: Status: Acute (5) Insomnia: Status: Acute Assessment and Plan: hospital d#6 60yo M with HTN, HLD, HFpEF, hx PE, AF on apxiaban, anxiety, depression, thoracic aortic aneurysm, hx gastric bypass surgery, EtOH abuse admitted with confusion, encephalopathy # AF/RVR - initially got IV diltiazem; now on diltiazem PO + metoprolol. metoprolol dose increased yesterday, will increase diltiazem today - AC with apixaban # toxic metabolic encephalopathy - unknown etiology; all workup including CT head, ammonia level, lactic acid, urinalysis all within normal range, except noted to have elevated LFTs - confusion resolved; patient awake and alert and denies alcohol use for past month; currently residing in rehab recuperating from recent abdominal surgery - initially confusion thought to be related to alcohol withdrawal and therefore treated with phenobarb- discontinued # transaminasemia - AST>ALT but pt denies EtOH - viral serologies negative - LFTs improving - recommended abstinence from EtOH # hx alcohol abuse - continue MVI, thiamine, folate # malnutrition - dietary supplements # ARIAN - resolved, likely was prerenal # hypoK - repleted # recent UTI - s/p cephalexin course # thoracic aortic aneurysm - tight BP control # HTN - diltiazem, metoprolol # HLD - statin # morbid obesity - consider outpt bariatrics referral # anxiety/depression - continue vilazodone, aripiprazole, venlafaxine # VTE ppx - apixaban # dispo - plan STR @ [facility], possibly tomorrow Quality Stroke Does the patient have a stroke diagnosis?: No VTE Prior VTE?: No VTE Risk Level:: Medical - moderate - high VTE Device Contraindication: Treatment Not Indicated VTE Drug Contraindication: N/A - Med Ordered
[2021-03-11] MEDS: Cyclobenzaprine HCl 10 MG TABLET PO (11:58)
[2021-03-11] MEDS: dilTIAZem HCL CD 120 MG CAP.ER.DEG PO (11:59)
[2021-03-11] MEDS: oxyCODONE HCl Immed Release 5 MG TABLET PO ×2 (16:16→22:37)
[2021-03-11] MEDS: Atorvastatin Calcium 40 MG TABLET PO (20:15)
[2021-03-11] MEDS: Zolpidem Tartrate 5 MG TABLET 10 MG PO (20:17)
[2021-03-12] MEDS: 0.9 % Sodium Chloride Flush 3 ML SYRINGE IVFLUSH ×3 (00:07→15:42)
[2021-03-12 03:17] VITALS: BP 133/88; PULSE 93; RESP 18; TEMP 36.3; O2SAT 96
[2021-03-12] MEDS: oxyCODONE HCl Immed Release 5 MG TABLET PO ×3 (04:21→16:54)
[2021-03-12 07:47] VITALS: BP 138/84; PULSE 82; RESP 18; TEMP 36.3; O2SAT 94
[2021-03-12 08:54] VITALS: BP 143/94; PULSE 77
[2021-03-12] MEDS: Famotidine 20 MG TABLET PO (08:54)
[2021-03-12] MEDS: Vilazodone HCL 20 MG TABLET PO (08:54)
[2021-03-12] MEDS: ARIPiprazole 5 MG TABLET PO (08:54)
[2021-03-12] MEDS: Apixaban 5 MG TABLET PO (08:54)
[2021-03-12] MEDS: Metoprolol Tartrate 100 MG TABLET PO (08:54)
[2021-03-12 08:55] VITALS: BP 143/94; PULSE 77
[2021-03-12] MEDS: dilTIAZem HCL CD 180 MG CAP.ER.24H 360 MG PO (08:55)
[2021-03-12] MEDS: Venlafaxine HCl ER 150 MG CAP.ER.24H PO (08:55)
[2021-03-12 11:58] VITALS: BP 124/82; PULSE 74; RESP 18; TEMP 35.9; O2SAT 95
--- NOTE | 2021-03-12 14:42 | HO.PM.IMPN ---
Subjective Subjective Date of Service: 03/12/21 Interval History: Sciatica improved Short bursts of RVR without symptoms Review of Systems Review of Systems: Yes all other systems are reviewed and are negative Physical Exam Vital Signs: Vital Signs: Last Vital Signs Temp 96.6 F L 03/12/21 11:58 Pulse 74 03/12/21 11:58 Resp 18 03/12/21 11:58 BP 124/82 03/12/21 11:58 Pulse Ox 95 03/12/21 11:58 BMI result Body Mass Index 42.7 Gen: in no acute distress HEENT: sclera anicteric, moist mucus membranes Neck: supple Lungs: clear to auscultation bilaterally Heart: irregularly irregular Abd: soft, non-tender, non-distended, morbidly obese Ext: no edema Skin: warm/well-perfused Neuro: alert and oriented x3, no focal findings Psych: appropriate affect Objective Data Active Medications Acetaminophen (Acetaminophen 325 Mg Tablet) 650 mg PO Q6H PRN PRN Reason: Pain, Mild (Pain Scale 1-3) Last Admin: 03/09/21 21:20 Dose: 650 mg Documented by: AMBER Apixaban (Apixaban 5 Mg Tablet) 5 mg PO BID [facility] Last Admin: 03/12/21 08:54 Dose: 5 mg Documented by: GABRIELLE Aripiprazole (Aripiprazole 5 Mg Tablet) 5 mg PO DAILY [facility] Last Admin: 03/12/21 08:54 Dose: 5 mg Documented by: GABRIELLE Atorvastatin Calcium (Atorvastatin Calcium 40 Mg Tablet) 40 mg PO BEDTIME [facility] Last Admin: 03/11/21 20:15 Dose: 40 mg Documented by: DON Cyclobenzaprine HCl (Cyclobenzaprine Hcl 10 Mg Tablet) 10 mg PO TID PRN PRN Reason: back pain Last Admin: 03/11/21 11:58 Dose: 10 mg Documented by: FLORY Diltiazem HCl (Diltiazem Hcl Cd 180 Mg Cap.Er.24h) 360 mg PO DAILY [facility]; Protocol Last Admin: 03/12/21 08:55 Dose: 360 mg Documented by: GABRIELLE Famotidine (Famotidine 20 Mg Tablet) 20 mg PO BID [facility] Last Admin: 03/12/21 08:54 Dose: 20 mg Documented by: GABRIELLE Loperamide HCl (Loperamide Hcl 2 Mg Capsule) 2 mg PO Q6H PRN PRN Reason: diarrhea Last Admin: 03/10/21 14:35 Dose: 2 mg Documented by: QUIN Medication (No Benzodiazepines) 1 each MISCELLANE DAILY [facility] Melatonin (Melatonin 3 Mg Tablet) 6 mg PO BEDTIME PRN PRN Reason: Insomnia Last Admin: 03/10/21 20:50 Dose: 6 mg Documented by: NAZARIO Metoprolol Tartrate (Metoprolol Tartrate 100 Mg Tablet) 100 mg PO BID [facility]; Protocol Last Admin: 03/12/21 08:54 Dose: 100 mg Documented by: GABRIELLE Ondansetron HCl (Ondansetron Hcl 4 Mg/2 Ml Vial) 4 mg IVPUSH Q8H PRN PRN Reason: Nausea Last Admin: 03/07/21 10:32 Dose: 4 mg Documented by: VALERIA Oxycodone HCl (Oxycodone Hcl Immed Release 5 Mg Tablet) 5 mg PO Q6H PRN PRN Reason: severe pain Last Admin: 03/12/21 11:02 Dose: 5 mg Documented by: GABRIELLE Senna (Sennosides 8.6 Mg Tablet) 17.2 mg PO BEDTIME PRN PRN Reason: Constipation Sodium Chloride (0.9 % Sodium Chloride Flush 3 Ml Syringe) 3 ml IVFLUSH QSHIFT [facility] Last Admin: 03/12/21 08:53 Dose: 3 ml Documented by: GABRIELLE Venlafaxine HCl (Venlafaxine Hcl Er 150 Mg Cap.Er.24h) 150 mg PO DAILY [facility] Last Admin: 03/12/21 08:55 Dose: 150 mg Documented by: GABRIELLE Vilazodone HCl (Vilazodone Hcl 20 Mg Tablet) 20 mg PO DAILY [facility] Last Admin: 03/12/21 08:54 Dose: 20 mg Documented by: GABRIELLE Zolpidem Tartrate (Zolpidem Tartrate 5 Mg Tablet) 10 mg PO BEDTIME [facility] Last Admin: 03/11/21 20:17 Dose: 10 mg Documented by: DON Labs CBC & Chem 7: 03/11/21 10:26 03/11/21 10:26 Assessment and Plan (1) Atrial fibrillation with RVR: Status: Acute (2) ARIAN (acute kidney injury): Status: Acute (3) Chronic atrial fibrillation: Status: Acute (4) Morbid obesity: Status: Acute (5) Insomnia: Status: Acute Assessment and Plan: hospital d#7 60yo M with HTN, HLD, HFpEF, hx PE, AF on apxiaban, anxiety, depression, thoracic aortic aneurysm, hx gastric bypass surgery, EtOH abuse admitted with confusion, encephalopathy # AF/RVR - initially got IV diltiazem; now on diltiazem PO + metoprolol- doses increased - AC with apixaban # toxic metabolic encephalopathy - unknown etiology; all workup including CT head, ammonia level, lactic acid, urinalysis all within normal range, except noted to have elevated LFTs - confusion resolved; patient awake and alert and denies alcohol use for past month; currently residing in rehab recuperating from recent abdominal surgery - initially confusion thought to be related to alcohol withdrawal and therefore treated with phenobarb- discontinued # transaminasemia - AST>ALT but pt denies EtOH - viral serologies negative - LFTs improving- monitor - recommended abstinence from EtOH # hx alcohol abuse - continue MVI, thiamine, folate # malnutrition - dietary supplements # ARIAN - resolved, likely was prerenal # hypoK - repleted # recent UTI - s/p cephalexin course # thoracic aortic aneurysm - tight BP control # HTN - diltiazem, metoprolol # HLD - statin # morbid obesity - consider outpt bariatrics referral # anxiety/depression - continue vilazodone, aripiprazole, venlafaxine # VTE ppx - apixaban # dispo - plan STR but cannot return to [facility] [see CM note for details]; awaiting bed at [facility] Stroke Does the patient have a stroke diagnosis?: No VTE Prior VTE?: No VTE Risk Level:: Medical - moderate - high VTE Device Contraindication: Treatment Not Indicated VTE Drug Contraindication: N/A - Med Ordered
[2021-03-12 15:13] VITALS: BP 128/79; PULSE 80; RESP 18; TEMP 36.1; O2SAT 98
--- NOTE | 2021-03-12 15:23 | PM.DS ---
DS: Providers Provider Date of Service: 03/12/21 Date of admission: 03/06/21 05:08 Primary care physician: Bambi Kim MD Consults: 03/07/21 13:17 Consult to Care Team Routine Comment: Reason for consultation: etoh 03/10/21 17:45 Consult to General Surgery Routine Consulting Provider: [facility] General Surgeons Reason for consultation: hernai repair 02/08- wound check + staple removal DS: Diagnosis Discharge Diagnosis (1) Atrial fibrillation with RVR: Status: Acute (2) ARIAN (acute kidney injury): Status: Acute (3) Chronic atrial fibrillation: Status: Acute (4) Morbid obesity: Status: Acute (5) Insomnia: Status: Acute (6) History of incisional hernia repair: Status: Acute (7) Encephalopathy: Status: Acute (8) Sciatica: Status: Acute (9) Transaminasemia: Status: Acute DS: Summary Hospital Course Hospital Course: Per admission H+P by hospitalist Dieter Gama, 03/06/21: 60-year-old male with a past medical history of hypertension, hyperlipidemia, CHF, history of pulmonary embolism, AFib on Eliquis, anemia, anxiety, depression, history of thoracic aortic aneurysm, history of gastric bypass surgery, alcohol abuse presented to the hospital today with a chief complaint of confusion. Patient is alert and awake, oriented times 1-2, most of the history obtained from the ER staff/ records.? I tried to call the patient's son Royer unable to reach over the phone-left voice message with call back number. Reportedly patient was sent to the hospital because of the confusion.? Patient recently finished antibiotic course for urinary tract infection. ?patient denied any chest pain or palpitations.? Denied any cough or sputum production.? Denied any fevers. ?review of the systems is limited as patient is confused.? ER course: Per ER team patient labs noted to have elevated creatinine consistent with ARIAN; CT head showed no acute findings; grossly nonfocal examination; patient noted to be tachycardic and tachypneic, hallucinating and confused in the ER concern for alcohol withdrawal; patient was given phenobarbital.? On telemetry patient also noted to be in rapid ventricular response. Chest x-ray showed no acute findings; admitted to the hospital for further management. This 60yo M with HTN, HLD, HFpEF, anticaouglated with apixaban for hx PE and atrial fibrillation, anxiety, depression, thoracic aortic aneurysm, hx gastric bypass surgery, and EtOH abuse was admitted with confusion/encephalopathy to the [facility]. Hospital course by problem: # AF/RVR Initially got IV diltiazem then back on PO diltiazem and metoprolol; doses of these were increased. Apixaban was continued for anticoagulation. # toxic metabolic encephalopathy Unknown etiology; all workup including CT head, ammonia level, lactic acid, urinalysis all within normal range, except noted to have elevated LFTs. Confusion resolved; patient awake and alert and denies alcohol use for past month; currently residing in rehab recuperating from recent abdominal surgery. But initially, confusion thought to be related to alcohol withdrawal and therefore treated with phenobarbital taper, which was discontinued after a few days. # transaminasemia AST>ALT but patient denied recent alcohol intake. Viral serologies negative. LFTs improving. Recommend abstinence from alcohol for life and repeat CMP in 1 week. # alcohol use disorder Continue acamprosate and vitamins # acute kidney injury Resolved with IV hydration; likely was prerenal. # hypokalemia Repleted. # recent incisional hernia surgery Surgery was consulted and atif were removed. Wound is healing as expected. # sciatica Started on cyclobenzaprine; also received a few doses of oxycodone. Pain was relieved appropriately. He was discharged to [facility] for short-term rehabilitation. Time Spent with Patient Time attestation: Total time spent providing and/or coordinating discharge services: Discharge coordination time: Greater than 30 minutes Quality: Stroke Does the patient have a stroke diagnosis?: No Physical Exam Vital Signs: Vital Signs: Last Vital Signs Temp 97 F 03/12/21 15:13 Pulse 80 03/12/21 15:13 Resp 18 03/12/21 15:13 BP 128/79 03/12/21 15:13 Pulse Ox 98 03/12/21 15:13 BMI result Body Mass Index 42.7 Gen: in no acute distress HEENT: sclera anicteric, moist mucus membranes Neck: supple Lungs: clear to auscultation bilaterally Heart: irregularly irregular Abd: soft, non-tender, non-distended, morbidly obese Ext: no edema Skin: warm/well-perfused Neuro: alert and oriented x3, no focal findings Psych: appropriate affect DS: Data Data Completed and Pending Completed studies during hospitalization [Text1]: Laboratory Results WBC 7.1 X10*3/uL (4.8-10.8) 03/11/21 10:26 RBC 4.32 X10*6/uL (4.60-5.80) L 03/11/21 10:26 Hgb 12.0 g/dl (14.0-18.0) L 03/11/21 10:26 Hct 38.8 % (42.0-52.0) L 03/11/21 10:26 MCV 89.8 fL (80.0-98.0) 03/11/21 10:26 MCH 27.8 pg (27.0-33.0) 03/11/21 10:26 MCHC 30.9 g/dl (31.0-36.0) L 03/11/21 10:26 RDW 19.5 % (11.0-16.0) H 03/11/21 10:26 Plt Count 307 X10*3/uL (160-400) D 03/11/21 10:26 MPV 10.5 fL (9.4-12.4) 03/11/21 10:26 Immature Gran % (Auto) 0.5 % (0.0-0.4) H 03/07/21 05:07 Neut % (Auto) 82.0 % (45-73) H 03/07/21 05:07 Lymph % (Auto) 9.0 % (20-40) L 03/07/21 05:07 Fisher % (Auto) 7.4 % (2-11) 03/07/21 05:07 Eos % (Auto) 0.9 % (0-4) 03/07/21 05:07 Baso % (Auto) 0.2 % (0-2) 03/07/21 05:07 Lymph # (Auto) 0.5 X10*3/uL (1.2-4.9) L 03/07/21 05:07 Fisher # (Auto) 0.4 X10*3/uL (0.1-1.2) 03/07/21 05:07 Eos # (Auto) 0.1 X10*3/uL (0.0-0.4) 03/07/21 05:07 Baso # (Auto) 0.0 X10*3/uL (0.0-0.2) 03/07/21 05:07 Abs Immat Gran (auto) 0.03 X10*3/uL (0.00-0.03) 03/07/21 05:07 Absolute Neuts (auto) 4.6 x10*3/uL (2.0-8.3) 03/07/21 05:07 Absolute Nucleated RBC 0.000 X10*3/uL (0.0-0.012) 03/11/21 10:26 Nucleated RBC % (auto) 0.0 /100WBC (0.0-0.2) 03/11/21 10:26 Sodium 140 mmol/L (135-145) 03/11/21 10:26 Potassium 3.4 mmol/L (3.3-5.1) 03/11/21 10:26 Chloride 106 mmol/L (96-108) 03/11/21 10:26 Carbon Dioxide 27 mmol/L (22-29) 03/11/21 10:26 Anion Gap 10 (12-20) L 03/11/21 10:26 BUN 12 mg/dL (9-16) 03/11/21 10:26 Creatinine 0.86 mg/dL (0.5-1.4) 03/11/21 10:26 Estim Creat Clear Calc 130.7 03/11/21 10:26 Estimated GFR > 60 03/11/21 10:26 POC Glucose 91 mg/dL (60-115) 03/06/21 18:33 Random Glucose 102 mg/dL (60-115) 03/11/21 10:26 Lactic Acid 1.3 mmol/L (0.5-2.0) 03/06/21 01:21 Calcium 8.6 mg/dL (8.4-10.2) 03/11/21 10:26 Magnesium 2.1 mg/dL (1.6-2.6) 03/11/21 10:26 Total Bilirubin 0.5 mg/dL (0.0-1.0) 03/11/21 10:26 Direct Bilirubin 0.3 mg/dL (0.0-0.5) 03/09/21 05:56 AST 104 U/L (5-37) H 03/11/21 10:26 ALT 130 U/L (0-40) H 03/11/21 10:26 Alkaline Phosphatase 113 U/L (39-117) 03/11/21 10:26 Ammonia 30 umol/L (13-55) 03/06/21 01:21 B-Natriuretic Peptide 126 pg/mL (<100) H 03/06/21 01:40 Total Protein 6.4 g/dL (6.5-8.0) L 03/11/21 10:26 Albumin 3.3 g/dL (3.5-5.0) L 03/11/21 10:26 Urine Color YELLOW 03/10/21 05:08 Urine Appearance CLEAR 03/10/21 05:08 Urine pH 6.0 (5.0-8.0) 03/10/21 05:08 Ur Specific [place] <= 1.005 (1.005-1.025) 03/10/21 05:08 Urine Protein NEG MG/DL (NEG-TRACE) 03/10/21 05:08 Urine Glucose (UA) NEG MG/DL (NEG) 03/10/21 05:08 Urine Ketones NEG MG/DL (NEG) 03/10/21 05:08 Urine Blood TRACE (NEG) 03/10/21 05:08 Urine Nitrite NEG (NEG) 03/10/21 05:08 Ur Leukocyte Esterase NEG (NEG) 03/10/21 05:08 Urine RBC 0-2 /HPF (0) 03/10/21 05:08 Urine WBC 0-2 /HPF (0-4) 03/10/21 05:08 Ur Squamous Epith Cells NONE /LPF 03/10/21 05:08 Calcium Oxalate Crystal TRACE /LPF 03/06/21 06:40 Urine Bacteria NONE /LPF 03/10/21 05:08 Urine Mucus 1+ /LPF 03/06/21 06:40 Ethyl Alcohol < 10 mg/dL 03/06/21 01:40 COVID-19 (NOLAN) Negative (Negative) 03/11/21 10:10 COVID-19 Clin Com See Note 03/11/21 10:10 Hepatitis A IgM Ab Nonreactive (Nonreactive) 03/09/21 14:15 Hep Bs Antigen Negative (Negative) 03/09/21 14:15 Hep Bs Antibody NONREACTIVE (Nonreactive) 03/09/21 14:15 Hep B Core Total Ab Nonreactive (Nonreactive) 03/09/21 14:15 Hepatitis C Ab (EIA) Nonreactive (Nonreactive) 03/09/21 14:15 Impressions Chest X-Ray 03/06/21 02:15 IMPRESSION: No acute cardiopulmonary findings. Head CT 03/06/21 02:43 IMPRESSION: No acute intracranial pathology. Discharge Plan Discharge Patient Disposition: [facility] Discharge Diagnosis: atrial fibrillation, encephalopathy, transaminasemia, alcohol use disorder, acute kidney injury Referrals: [facility] [Outside] - 1 Week Bambi Machuca MD [Primary Care Provider] - 1 Week Jose Huff MD [Physician] - 1 Week Discharge Medications: New cyclobenzaprine 10 mg Tablet 10 mg PO TID PRN (Reason: back pain) Qty: 30 RF: 0 diltiazem HCl [Cardizem CD] 180 mg Capsule,Extended Release 24hr 360 mg PO DAILY Qty: 30 RF: 0 metoprolol tartrate 100 mg Tablet 100 mg PO BID Qty: 60 RF: 0 Continued acamprosate 333 mg tablet,delayed release (DR/EC) 666 mg PO TID RF: 0 Viibryd 20 mg Tablet 20 mg PO DAILY RF: 0 loperamide [Imodium A-D] 2 mg capsule 2 mg PO Q6H PRN (Reason: diarrhea) Qty: 30 RF: 0 nystatin 100,000 unit/mL suspension 500,000 unit PO QID 6 Days Qty: 120 RF: 0 ondansetron HCl [Zofran] 4 mg Tablet 4 mg PO Q8H PRN (Reason: Nausea) RF: 0 Eliquis 5 mg tablet 5 mg PO BID 90 Days Qty: 180 RF: 3 aripiprazole [Abilify] 5 mg tablet 5 mg PO DAILY 90 Days Qty: 90 RF: 1 atorvastatin 40 mg tablet 40 mg PO BEDTIME 90 Days Qty: 90 RF: 3 venlafaxine [Effexor XR] 150 mg capsule,extended release 24hr 150 mg PO DAILY 90 Days Qty: 90 RF: 3 Discontinued diltiazem HCl [Cardizem CD] 240 mg capsule,extended release 24hr 240 mg PO DAILY Qty: 30 RF: 5 Hold Instructions: Resume on 03/03/21. Until you follow up with PCP metoprolol tartrate 25 mg Tablet 75 mg PO BID 60 Days Qty: 360 RF: 0 ciprofloxacin HCl 500 mg Tablet 500 mg PO BID RF: 0 Lactobacillus acidophilus 1 cap PO BID RF: 0 Discharge Orders: Discharge Order (Routine); Ordered 03/12/21 Ordered By: Darcy Parisi Diet: advance to usual diet Activity on Discharge: no alcohol Stand Alone Forms: Patient Portal Discharge page Other Ambulatory Orders: Comprehensive Met. Panel (Routine) Timeframe: 1 Week Facility: [facility] - Location: Laboratory Ordered By: Darcy Parisi Activity Restrictions/Additional Instructions: anticipated length of stay <30 days at [facility]/SNF Care Plan Goals: avoid hospitalization Health Concerns: atrial fibrillation, encephalopathy, transaminasemia, alcohol use disorder, acute kidney injury Plan of Treatment: increase metoprolol to 100 mg 2x a day increase diltiazem to 360 mg 1x a day follow up with [facility] Cardiology within 2 weeks avoid all alcohol recheck labs [CMP] in 1 week Assessment: see Discharge Summary Patient Instructions: A-fib (Atrial Fibrillation) (DC)
--- NOTE | 2021-03-12 15:24 | MHC.CM.PN ---
per MD, Patient is medically cleared for dc to SNF/STR today.Patient will dc to [facility] today at 5:30 PM, via [facility].Second IMM addressed with Patient at bedside and original has been given to Patient and a copy has been placed on the chart.Patient is aware of and in agreement with the dc plan.
[2021-03-12] MEDS: Cyclobenzaprine HCl 10 MG TABLET PO (15:44)
--- NOTE | 2021-03-12 15:56 | MHC.CM.PN ---
CM met with Patient, who had questions about how he will get his belongings from [facility].CM left a detailed message for [employer]/Tee and spoke with the Nurse, who answered the phone at [facility]. The Nurse indicated that he is sure that Patient's belongings have been packed up and are safely being stored somewhere. Per this Nurse's recommendation, CM asked Patient if his Friend/Temo would be able to picking table worker his belongings tomorrow morning, rather than tonight. Patient is agreeable to wait for tomorrow for his Friend to retrieve his belongings.
== END 2021-03-12 17:45 | disposition skilled nursing facility (03) | DRG 308 ==
LOC: HO.ED 03:53 → HO.EDOVER 05:19 → HO.IMC 19:42
PROVIDERS: Hospitalist; Admitting Provider Hospitalist; Emergency Provider Student in an Organized Health Care Education/Training Program; PCP Internal Medicine; Visit Provider Family Medicine
DX: I48.20 Chronic atrial fibrillation, unspecified (principal); G92.8 Other toxic encephalopathy; N17.9 Acute kidney failure, unspecified; Z68.41 Body mass index [BMI] 40.0-44.9, adult; I50.32 Chronic diastolic (congestive) heart failure; K70.10 Alcoholic hepatitis without ascites; I10 Essential (primary) hypertension; I71.2 Thoracic aortic aneurysm, without rupture; E87.6 Hypokalemia; E66.01 Morbid (severe) obesity due to excess calories; G47.00 Insomnia, unspecified; M54.30 Sciatica, unspecified side; R74.01 Elevation of levels of liver transaminase levels; E78.5 Hyperlipidemia, unspecified; I11.0 Hypertensive heart disease with heart failure; F10.10 Alcohol abuse, uncomplicated; F41.9 Anxiety disorder, unspecified; Z86.711 Personal history of pulmonary embolism; F32.A Depression, unspecified; Z20.822 Contact with and (suspected) exposure to COVID-19; Z98.84 Bariatric surgery status; Z79.01 Long term (current) use of anticoagulants; Z79.899 Other long term (current) drug therapy
CPT/HCPCS: 36415; 70450; 71045; 80048; 80053; 80076; 81001; 81003; 82077; 82140; 82947; 83605; 83735; 83880; 85025; 85027; 86704; 86706; 86709; 86803; 87040; 87086; 87340; 87635; 93005; 96361; 96372; 96374; 96375; 97116; 97162; 99285; J2060; J2405; J2560

== ENCOUNTER → 2021-03-20 11:49 | Outpatient (BNVA) | payer MEDICARE, MEDICAID, SELFPAY | PROVIDERS: PCP Internal Medicine; Referring Provider Internal Medicine; Visit Provider Internal Medicine Cardiovascular Disease | DX: I48.20 Chronic atrial fibrillation, unspecified (principal); I71.2 Thoracic aortic aneurysm, without rupture | CPT/HCPCS: 93005; 99212 ==

== ENCOUNTER 2021-03-25 16:43 | Inpatient (IN) | payer MEDICARE, MEDICAID, SELFPAY ==
[2021-03-25] VITALS (11 sets, daily range): BP systolic 119–160; BP diastolic 83–105; PULSE 85–148; RESP 16–18; TEMP 36.7; O2SAT 95–99; BMI 41.6
--- NOTE | 2021-03-25 | ECG_ITS ---
Test Reason : RAPID HEART RATE Blood Pressure : / mmHG Vent. Rate : 156 BPM Atrial Rate : 000 BPM P-R Int : 000 ms QRS Dur : 130 ms QT Int : 302 ms P-R-T Axes : 000 -13 -14 degrees QTc Int : 486 ms Atrial fibrillation with rapid ventricular response Right bundle branch block Abnormal ECG When compared with ECG of 06-MAR-2021 01:14, QRS duration has decreased Referred By: Kristen Choi Electronically Signed By:JASWANT PAYNE MD
--- NOTE | ~2021-03-25 | CT_ITS ---
EXAMINATION: CT HEAD WITHOUT CONTRAST CLINICAL INFORMATION: Fall, on blood thinners. COMPARISON: CT head dated from 03/06/2021. TECHNIQUE: Contiguous axial imaging was performed from the skull base to vertex without intravenous administration of contrast. This CT examination was performed using dose optimization techniques as appropriate, variously including the following: *Automated exposure control *Adjustment of mA and/or kV according to patient size (this includes techniques or standardized protocols for targeted exams where dose is matched to indication/reason for exam; i.e. extremities or head) *Use of iterative reconstruction technique DLP: 849 mGy-cm FINDINGS: Evaluation is significantly limited due to streak artifacts. There is no evidence of acute intracranial hemorrhage or edematous territorial infarction. A few foci of hypoattenuation in the periventricular and deep white matter are consistent with mild microangiopathy. [place]-white matter differentiation is preserved. The ventricles are normal in size and configuration. No evidence for obstructive hydrocephalus. No abnormal mass effect or midline shift. No extra-axial fluid collections. No acute soft tissue or osseous abnormalities. The mastoid air cells and paranasal sinuses are clear. CT/CT head/brain wo con IMPRESSION: Limited evaluation as above. Accounting for these limitations, there is no evidence of acute intracranial hemorrhage or edematous territorial infarction.
--- NOTE | ~2021-03-25 | CT_ITS ---
EXAMINATION: CT ANGIOGRAM OF THE CHEST WITH AND WITHOUT CONTRAST (CT PULMONARY ANGIOGRAM FOR PE) CLINICAL INFORMATION: Reason for Exam chest pain with pmh of thoracic AA and PE COMPARISON: CT chest dated from 02/08/2021. TECHNIQUE: Prior to contrast administration, noncontrast localization images were obtained. Subsequently, multidetector volumetric imaging was performed from the thoracic inlet to below the diaphragms following the administration of 75 mL Omnipaque 350 intravenous contrast. No contrast reaction reported Sagittal, coronal, and MIP oblique sagittal reformatted images were obtained on the CT workstation, uploaded to PACS, and reviewed. This CT examination was performed using dose optimization techniques as appropriate, variously including the following: *Automated exposure control *Adjustment of mA and/or kV according to patient size (this includes techniques or standardized protocols for targeted exams where dose is matched to indication/reason for exam; i.e. extremities or head) *Use of iterative reconstruction technique Total exam dose-length product 529 mGy-cm FINDINGS: QUALITY OF STUDY/CONTRAST BOLUS: Satisfactory. PULMONARY ARTERIES: No central or segmental pulmonary emboli. THORACIC AORTA: No aneurysm or dissection. Atherosclerotic disease. LUNG: Low lung volumes with subsegmental atelectases. No focal airspace opacities. The main airways are patent. PLEURA: No pleural effusion or pneumothorax. MEDIASTINUM: Global cardiomegaly. No pericardial effusion. Coronary calcifications. No mediastinal or hilar lymphadenopathy. No evidence of septal bowing or right heart strain. CHEST WALL/AXILLA: No axillary or internal mammary lymphadenopathy. OSSEOUS STRUCTURES: Diffuse idiopathic skeletal hyperostosis is identified in the thoracic spine with large bridging anterior osteophytes. No acute fractures or malalignment. UPPER ABDOMEN: As before, there is mild circumferential thickening of the lower esophagus with a small hiatal hernia and postoperative changes from prior Luis Fernando-en-Y gastric bypass. Hypoattenuation of the liver parenchyma suggesting hepatic steatosis. Cholecystectomy. There is mild reflux of contrast into the IVC but not up to the level of the hepatic veins. CT/CT angio chest PE protocol IMPRESSION: No evidence of pulmonary embolism. Cardiomegaly with some degree of reflux of contrast into the IVC but not into the hepatic veins questioning the presence of increased right-sided heart pressures. Low lung volumes with subsegmental atelectasis. Small hiatal hernia with circumferential wall thickening of the distal esophagus which might be due to reflux esophagitis. Hepatic steatosis. VTE: negative
--- NOTE | 2021-03-25 17:14 | ED_ITS ---
HPI - General Adult General Chief complaint: Back Pain/Injury Stated complaint: BACK PAIN Time Seen by Provider: 03/25/21 17:02 Source: patient Mode of arrival: EMS Limitations: no limitations History of Present Illness HPI narrative: 60-year-old male who left his intermediate rehab facility a week ago and checked himself into a hotel, presents with chest pain, palpitations, left shoulder pain, cramps in his left foot and cramps in his left arm. Patient states the chest pain and palpitations and extremity cramping started yesterday. No PND, no leg edema, no orthopnea, no bleeding. Patient is not currently short of breath, no fevers, no cough. Patient states he drank 2 beers prior to arrival. States sometimes he drinks more than 10 beers at a time, sometimes he does not. States he has not been taking his medication for the last week. Patient recently had abdominal surgery for an incarcerated ventral hernia. He was in a care home facility for rehab. Recently, he has been having trouble walking and having frequent falls. Patient on Cardizem and metoprolol for AFib, as well as Eliquis, per cardiology note March 22, 2021 Patient has a history of alcohol abuse, AFib with RVR in Eliquis, pulmonary embolism, toxic metabolic encephalopathy, morbid obesity, alcohol abuse, congestive heart failure, ARIAN, depression, thoracic aortic aneurysm, and sciatica. Patient has had multiple emergency rooms visits for alcohol intoxication. Patient states he would like to go back to care home facility, he is having a hard time caring for himself in the hotel Onset (ago): day(s) (1) Related Data Home Medications Medication Instructions Recorded Confirmed melatonin 3 mg capsule 3 mg PO BEDTIME PRN 03/20/21 03/25/21 zolpidem 10 mg tablet 10 mg PO BEDTIME PRN 03/25/21 03/25/21 Previous Rx's Medication Instructions Recorded apixaban 5 mg tablet (Eliquis) 5 mg PO BID 90 Days #180 tab 05/25/20 aripiprazole 5 mg tablet (Abilify) 5 mg PO DAILY 90 Days #90 tab 05/25/20 atorvastatin 40 mg tablet 40 mg PO BEDTIME 90 Days #90 tab 05/25/20 venlafaxine 150 mg 150 mg PO DAILY 90 Days #90 cap 05/25/20 capsule,extended release 24 hr (Effexor XR) loperamide 2 mg capsule (Imodium 2 mg PO Q6H PRN #30 cap 02/17/21 A-D) cyclobenzaprine 10 mg tablet 10 mg PO TID PRN #30 tab 03/12/21 diltiazem HCl 180 mg 360 mg PO DAILY #30 cap 03/12/21 capsule,extended release 24 hr (Cardizem CD) metoprolol tartrate 100 mg tablet 100 mg PO BID #60 tab 03/12/21 Allergies Allergy/AdvReac Type Severity Reaction Status Date / Time No Known Allergies Allergy Verified 12/15/20 05:52 Review of Systems Constitutional: Constitutional: Reports body ache(s), Denies chills, Reports fatigue, Denies fever(s), Denies headache(s), Reports malaise and Reports weakness Eyes: Eyes: Denies blurry vision, Denies change in vision and Denies diplopia ENT: Denies vertigo, Denies dizziness, Denies headache(s), Denies post nasal drip and Denies sore throat Cardiovascular: Cardiovascular: Reports chest pain, Denies syncope, Denies lightheadedness, Denies Loss of Consciousness, Reports palpitations and Denies dyspnea Respiratory: Respiratory: Denies chest congestion, Denies cough and Denies dyspnea Gastrointestinal: Gastrointestinal: Denies abdominal pain, Denies hematochezia, Denies constipation, Denies diarrhea and Denies vomiting Genitourinary: Genitourinary: Reports no additional male genitourinary complaints Musculoskeletal: Musculoskeletal: Reports myalgias and Reports muscle cramps Neurologic: Reports Abnormal speech present, Denies confusion, Denies vertigo, Denies dizziness, Denies syncope, Denies headache(s) and Reports weakness Psychiatric: Psychiatric: Denies anxiety, Denies confusion and Denies depression Endocrine: Endocrine: Reports fatigue and Reports palpitations PMFSH Past Medical History Medical History ARIAN (acute kidney injury) Alcohol dependence Alcohol intoxication Alcohol withdrawal Alcohol withdrawal delirium Anemia Atrial fibrillation with RVR Atrial fibrillation with RVR Chronic atrial fibrillation Depression Dyslipidemia Heart failure with left ventricular ejection fraction greater than or equal to 50 percent History of alcohol abuse Incarcerated incisional hernia Insomnia Metabolic acidosis with increased anion gap and accumulation of organic acids Morbid obesity Obesity Oral thrush Pulmonary embolism Thoracic aortic aneurysm Toenail deformity Surgical History History of incisional hernia repair History of inguinal hernia repair Hx of gastric bypass S/P cholecystectomy Family History Family History Mother No problems noted. Father No problems noted. Family/Other Substance use disorder Social History Social History Household Members: None Household Members Other:: lives with mother Housing: Apartment Do you presently have visiting nurse or other home services: Yes Unable to assess alcohol history related to: Unable to respond Alcohol intake: current Alcohol intake frequency: other Alcohol type: beer and wine Patient Tobacco Use Status: Never used Tobacco e-Cigarette/Vaping Use: Never Used Second Hand Smoke Exposure: No Advance Directives: No Advance Directives Information Provided: No service: No Current occupational status: retired Physical Exam Vital Signs: Vital Signs: Last Vital Signs Temp 98.0 F 03/25/21 16:58 Pulse 107 H 03/25/21 22:40 Resp 16 03/25/21 22:40 BP 152/104 H 03/25/21 22:05 Pulse Ox 99 03/25/21 22:05 BMI result Body Mass Index 41.6 Const: General: alert, awake and poor hygiene; No confusion or diaphoretic Nutritional Appearance: well nourished and obese morbidly obese Orientation/consciousness: patient oriented x3 and No confusion Limitations: no limitations HENMT: Head: Yes abrasion Head images: 1. abrasion Ears: hearing grossly normal bilaterally General nose exam: Normal external nose present Face and sinus: Yes normal facial exam Mouth: Normal oral and palatal mucosa present Throat: Yes posterior oropharynx normal Eyes: Conjunctivae: conjunctivae normal Pupils: Equal, round and reactive pupils present EOM: EOMs intact bilaterally Neck: Neck: Yes full ROM, Yes no lymphadenopathy and Yes supple Resp: Effort & Inspection: normal respiratory effort and able to speak in complete sentences Auscultation: clear to auscultation bilaterally, no crackles, no rales, no rhonchi and no wheezes Cardio: Rate: regular rate and tachycardic Rhythm: abnormal rhythm GI: Inspection: Yes incision, Yes Abdominal panniculus present and Yes obesity Palpation (GI): Soft to palpation, nontender, no guarding and not rigid Percussion: Yes normal to percussion Auscultation: normal bowel sounds Skin: Other: Healing incision mid abdomen, abrasion right forehead, abrasion left knee Avulsion injury right knee, right anterior lower blackburn is erythematous Neuro: General: patient oriented x3, No confusion and Unable to assess gait Cranial nerves: Yes CN's II-XII intact bilaterally, Yes Facial sensation int act/muscles of mastication intact, Yes Equal, round and reactive pupils present, Yes Bilaterally intact EOM present, Yes Nystagmus not present, Yes Ability to bilaterally rotate head present and Yes Ability to bilaterally elevate shoulders present Cognition (Neuro): normal cognition Speech: Abnormal speech present slurred (mildly) Gait exam (Neuro): Unable to assess gait Extrem: Right lower extremity: knee Details: tenderness Location: of the medial joint line, abnormal ROM and abrasion knee lateral Psych: Appearance: grossly normal Affect: normal affect Attitude: cooperative Thought process: Normal thought process present Course Course Course Narrative: 60-year-old male with a past medical history of atrial fibrillation with RVR, alcohol abuse, congestive heart failure, depression, thoracic aortic aneurysm, sciatica, morbid obesity, acute kidney injury, pulmonary embolism, and toxic metabolic encephalopathy presents for chest pain, left shoulder pain, and cramps in his left arm and left foot. Patient states he has not been taking his medications since he left the intermediate He is unable to care for himself, and would like to be admitted to a different care home facility On exam, patient is in a fib with RVR, rate of 156. Patient is alert and oriented, has mildly slurred speech, patient has an abrasion in his right forehead, and an abrasion and effusion in his left knee, and an avulsion on his right knee, with mild erythema his anterior right blackburn. Patient states he had a fall at the intermediate 6 days ago. Will give diltiazem, 10 mg IV push, as this is what patient takes at home. Patient's blood pressure is 119/83, Will get EKG, chest x-ray, troponin, BNP, labs, magnesium phosphorus, alcohol level, will CT head as patient is on Eliquis and has not had head injury evaluated. Reevaluation(s) Reevaluation #1: Patient has obstructive sleep apnea and was dropping his oxygen saturation and is now on 4 L of oxygen After 10 mg diltiazem, patient is still in AFib with RVR with a rate of 136. Blood pressure now 146/82. Will give another 10 of diltiazem With 2nd dose diltiazem, patient's heart rate is between 100-110 Patient's heart rate back up in the 140s, AFib with RVR. Started diltiazem drip. Reevaluation #2: Patient's heart rate still AFib in RVR, rate in the 140s, despite being on a diltiazem drip. Gave 5 mg of Lopressor. Reevaluation #3: CT/CT angio chest PE protocol IMPRESSION: No evidence of pulmonary embolism. ? Cardiomegaly with some degree of reflux of contrast into the IVC but not into the hepatic veins questioning the presence of increased right-sided heart pressures. ? Low lung volumes with subsegmental atelectasis. ? Small hiatal hernia with circumferential wall thickening of the distal esophagus which might be due to reflux esophagitis. ? Hepatic steatosis. ? VTE: negative CT/CT head/brain wo con IMPRESSION: Limited evaluation as above. Accounting for these limitations, there is no evidence of acute intracranial hemorrhage or edematous territorial infarction. ? EKG shows AFib with RVR, no elevated troponin, no elevated BNP. Labs are remarkable for sodium of 146. COVID negative, urine negative. CT of head and CTA of chest are as above. Will admit for a fib with RVR Medical Decision Making Lab Data Result diagrams: 03/25/21 19:47 03/25/21 19:59 Labs: Lab Results 03/25/21 03/25/21 03/25/21 Range/Units 19:47 19:47 19:47 WBC 5.1 (4.8-10.8) X10*3/uL RBC 3.81 L (4.60-5.80) X10*6/uL Hgb 11.0 L (14.0-18.0) g/dl Hct 36.2 L (42.0-52.0) % MCV 95.0 (80.0-98.0) fL MCH 28.9 (27.0-33.0) pg MCHC 30.4 L (31.0-36.0) g/dl RDW 20.7 H (11.0-16.0) % Plt Count 218 D (160-400) X10*3/uL MPV 10.7 (9.4-12.4) fL Immature Gran % (Auto) 1.6 H (0.0-0.4) % Neut % (Auto) 67.6 (45-73) % Lymph % (Auto) 19.7 L (20-40) % [place] % (Auto) 8.5 (2-11) % Eos % (Auto) 2.0 (0-4) % Baso % (Auto) 0.6 (0-2) % Lymph # (Auto) 1.0 L (1.2-4.9) X10*3/uL [place] # (Auto) 0.4 (0.1-1.2) X10*3/uL Eos # (Auto) 0.1 (0.0-0.4) X10*3/uL Baso # (Auto) 0.0 (0.0-0.2) X10*3/uL Abs Immat Gran (auto) 0.08 H (0.00-0.03) X10*3/uL Absolute Neuts (auto) 3.4 (2.0-8.3) x10*3/uL Absolute Nucleated RBC 0.000 (0.0-0.012) X10*3/uL Nucleated RBC % (auto) 0.0 (0.0-0.2) /100WBC Sodium (135-145) mmol/L Potassium (3.3-5.1) mmol/L Chloride (96-108) mmol/L Carbon Dioxide (22-29) mmol/L Anion Gap (12-20) BUN (9-16) mg/dL Creatinine (0.5-1.4) mg/dL Estim Creat Clear Calc Estimated GFR Random Glucose (60-115) mg/dL Calcium (8.4-10.2) mg/dL Phosphorus (2.7-4.5) mg/dL Magnesium (1.6-2.6) mg/dL Total Bilirubin (0.0-1.0) mg/dL AST (5-37) U/L ALT (0-40) U/L Alkaline Phosphatase (39-117) U/L Troponin I High Sens (<3.5-35.0) ng/L B-Natriuretic Peptide (<100) pg/mL Total Protein (6.5-8.0) g/dL Albumin (3.5-5.0) g/dL Urine Color Urine Appearance Urine pH (5.0-8.0) Ur Specific [place] (1.005-1.025) Urine Protein (NEG-TRACE) MG/DL Urine Glucose (UA) (NEG) MG/DL Urine Ketones (NEG) MG/DL Urine Blood (NEG) Urine Nitrite (NEG) Ur Leukocyte Esterase (NEG) Urine RBC (0) /HPF Urine WBC (0-4) /HPF Ur Squamous Epith Cells /LPF Amorphous Sediment /LPF Urine Bacteria /LPF Ethyl Alcohol 17 mg/dL COVID-19 (NOLAN) Negative (Negative) COVID-19 Clin Com See Note 03/25/21 03/25/21 03/25/21 Range/Units 19:47 19:59 19:59 WBC (4.8-10.8) X10*3/uL RBC (4.60-5.80) X10*6/uL Hgb (14.0-18.0) g/dl Hct (42.0-52.0) % MCV (80.0-98.0) fL MCH (27.0-33.0) pg MCHC (31.0-36.0) g/dl RDW (11.0-16.0) % Plt Count (160-400) X10*3/uL MPV (9.4-12.4) fL Immature Gran % (Auto) (0.0-0.4) % Neut % (Auto) (45-73) % Lymph % (Auto) (20-40) % [place] % (Auto) (2-11) % Eos % (Auto) (0-4) % Baso % (Auto) (0-2) % Lymph # (Auto) (1.2-4.9) X10*3/uL [place] # (Auto) (0.1-1.2) X10*3/uL Eos # (Auto) (0.0-0.4) X10*3/uL Baso # (Auto) (0.0-0.2) X10*3/uL Abs Immat Gran (auto) (0.00-0.03) X10*3/uL Absolute Neuts (auto) (2.0-8.3) x10*3/uL Absolute Nucleated RBC (0.0-0.012) X10*3/uL Nucleated RBC % (auto) (0.0-0.2) /100WBC Sodium 146 H (135-145) mmol/L Potassium 4.0 (3.3-5.1) mmol/L Chloride 114 H (96-108) mmol/L Carbon Dioxide 21 L (22-29) mmol/L Anion Gap 15 (12-20) BUN 6 L (9-16) mg/dL Creatinine 0.84 (0.5-1.4) mg/dL Estim Creat Clear Calc 131.8 Estimated GFR > 60 Random Glucose 84 (60-115) mg/dL Calcium 8.5 (8.4-10.2) mg/dL Phosphorus 2.2 L (2.7-4.5) mg/dL Magnesium 2.6 (1.6-2.6) mg/dL Total Bilirubin 0.3 (0.0-1.0) mg/dL AST 29 D (5-37) U/L ALT 47 H (0-40) U/L Alkaline Phosphatase 89 D (39-117) U/L Troponin I High Sens 31.0 (<3.5-35.0) ng/L B-Natriuretic Peptide 62 (<100) pg/mL Total Protein 6.5 (6.5-8.0) g/dL Albumin 3.5 (3.5-5.0) g/dL Urine Color YELLOW Urine Appearance CLEAR Urine pH 5.5 (5.0-8.0) Ur Specific [place] 1.025 (1.005-1.025) Urine Protein NEG (NEG-TRACE) MG/DL Urine Glucose (UA) NEG (NEG) MG/DL Urine Ketones NEG (NEG) MG/DL Urine Blood NEG (NEG) Urine Nitrite NEG (NEG) Ur Leukocyte Esterase NEG (NEG) Urine RBC 0 (0) /HPF Urine WBC 0 (0-4) /HPF Ur Squamous Epith Cells TRACE /LPF Amorphous Sediment TRACE /LPF Urine Bacteria NONE /LPF Ethyl Alcohol mg/dL COVID-19 (NOLAN) (Negative) COVID-19 Clin Com ECG Data Interpretation: Atrial fibrillation with rapid ventricular response of a rate of 156. QRS 130, QTC 486. Discharge Plan Discharge Clinical Impression: Atrial fibrillation with RVR Patient Disposition: Home, Self-Care Prescriptions: No Action loperamide [Imodium A-D] 2 mg capsule 2 mg PO Q6H PRN (Reason: diarrhea) Qty: 30 RF: 0 cyclobenzaprine 10 mg Tablet 10 mg PO TID PRN (Reason: back pain) Qty: 30 RF: 0 diltiazem HCl [Cardizem CD] 180 mg Capsule,Extended Release 24hr 360 mg PO DAILY Qty: 30 RF: 0 metoprolol tartrate 100 mg Tablet 100 mg PO BID Qty: 60 RF: 0 zolpidem 10 mg Tablet 10 mg PO BEDTIME PRN (Reason: Sleep) RF: 0 Eliquis 5 mg tablet 5 mg PO BID 90 Days Qty: 180 RF: 3 aripiprazole [Abilify] 5 mg tablet 5 mg PO DAILY 90 Days Qty: 90 RF: 1 atorvastatin 40 mg tablet 40 mg PO BEDTIME 90 Days Qty: 90 RF: 3 venlafaxine [Effexor XR] 150 mg capsule,extended release 24hr 150 mg PO DAILY 90 Days Qty: 90 RF: 3 melatonin 3 mg capsule 3 mg PO BEDTIME PRN (Reason: Sleep) RF: 0
[2021-03-25] MEDS: dilTIAZem HCL 50 MG/10 ML VIAL 10 MG IVPUSH ×2 (17:54→18:39)
[2021-03-25] MEDS: 0.9 % Sodium Chloride 1,000 ML 999 ML IV (17:58)
[2021-03-25] MEDS: dilTIAZem HCL 125 MG in 0.9 % Sodium Chloride 100 ML 10 MG IVCONT (19:32)
[2021-03-25 19:50] LABS: Appearance Urine CLEAR; Basophils Percent Auto 0.6 % (0-2); Color Urine YELLOW; Eosinophils Absolute Auto 0.1 X10*3/uL (0.0-0.4); Glucose Urine UA NEG (NEG); Hematocrit 36.2 % (42.0-52.0); Imm Gran Abs Auto 0.08 X10*3/uL (0.00-0.03); Imm Gran Pct Auto 1.6 % (0.0-0.4); Leukocyte Esterase Urine NEG (NEG); Lymphocytes Percent Auto 19.7 % (20-40); Mean Corpuscular HGB Conc 30.4 g/dl (31.0-36.0); Mean Corpuscular Hemoglobin 28.9 pg (27.0-33.0); Mean Platelet Volume 10.7 fL (9.4-12.4); Monocytes Absolute Auto 0.4 X10*3/uL (0.1-1.2); Monocytes Percent Auto 8.5 % (2-11); Neutrophils Absolute Auto 3.4 x10*3/uL (2.0-8.3); Neutrophils Percent Auto 67.6 % (45-73); Nitrite Urine NEG (NEG); PH 5.5 (5.0-8.0); Platelet Count 218 X10*3/uL (160-400); Red Blood Count 3.81 X10*6/uL (4.60-5.80); Red Cell Distribution Width 20.7 % (11.0-16.0); Specific Gravity - Urine 1.025 (1.005-1.025); Urine Blood NEG (NEG); Urine Ketones NEG (NEG); Urine Protein NEG (NEG-TRACE); White Blood Count 5.1 X10*3/uL (4.8-10.8)
[2021-03-25 19:51] LABS: MANUAL DIFF FLAG NO
[2021-03-25] MEDS: HYDROmorphone HCl 0.5 MG/0.5 ML SYRINGE IVPUSH (19:54)
[2021-03-25 19:56] LABS: Amorphous Sediment Urine TRACE /LPF; RBC Urine 0 /HPF (0); Squamous Epithelial Cell Urine TRACE /LPF; WBC Urine 0 /HPF (0-4)
[2021-03-25 20:07] LABS: COVID-19 Test Negative (Negative)
[2021-03-25 20:08] LABS: Ethanol 17 mg/dL
[2021-03-25 20:26] LABS: Alanine Aminotransferase 47 U/L (0-40); Albumin Level 3.5 g/dL (3.5-5.0); Alkaline Phosphatase 89 U/L (39-117); Anion Gap 15 (12-20); Aspartate Amino Transferase 29 U/L (5-37); Bilirubin Total 0.3 mg/dL (0.0-1.0); Blood Urea Nitrogen 6 mg/dL (9-16); Calcium 8.5 mg/dL (8.4-10.2); Carbon Dioxide 21 mmol/L (22-29); Chloride 114 mmol/L (96-108); Creatinine Clr Calc Pharmacy 131.8; Estimated Glomerular Filt Rate > 60; Glucose Random 84 mg/dL (60-115); Magnesium 2.6 mg/dL (1.6-2.6); Phosphorus 2.2 mg/dL (2.7-4.5); Sodium 146 mmol/L (135-145); Total Protein 6.5 g/dL (6.5-8.0)
[2021-03-25 20:28] LABS: B Type Natriuretic Peptide 62 pg/mL (<100)
[2021-03-25] MEDS: iohexoL 350 MG/ML 100 ML INFUS..BTL IV (21:42)
[2021-03-25] MEDS: Metoprolol Tartrate 5 MG/5 ML VIAL IVPUSH (21:54)
[2021-03-25] MEDS: oxyCODONE HCl Immed Release 5 MG TABLET 10 MG PO (22:41)
--- NOTE | 2021-03-25 23:46 | P.HPHOSP_ITS ---
History of Present Illness Date of Service: 03/25/21 Chief Complaint: chest pain 60-year-old male with a past medical history of hypertension, hyperlipidemia, CHF, history of pulmonary embolism, AFib on Eliquis,, PE, anemia, anxiety, depression, history of thoracic aortic aneurysm, history of gastric bypass surge ry, alcohol abuse presented to the hospital today with complaints of chest pain, dizziness, and sciatic pain. Patient reports that he was at the jail up until Saturday when he left because he felt that the jail was very dirty and eating 1 to stay there, after leaving the jail he went to a hotel but had none of his medications. And has been without his medication for the past 2 days. He describes the chest pain as midsternal, radiating to his left arm, 810, started at rest, currently resolving, improves with bending over. He has also been feeling palpitations. He otherwise is any headache, change in vision no abdominal pain nausea or vomiting, no diarrhea constipation, no urinary symptoms and no lower extremity edema. On arrival to the ED patient found to have a heart rate in the 140s, blood pressure in the 160s/90s, afebrile, Labs are significant for WBC count of 5.1, hemoglobin of 11, hematocrit 36.2, phosphorus of 2.2, UA negative, BNP negative, troponin negative x2 chest CT angiogram shows no PE, but shows cardiomegaly with some degree of reflux of contrast into the IVC but not into the hepatic veins questioning the presence of increased right heart pressure, low lung volumes with subsegmental atelectasis. EKG shows AFib with RVR with elevated QTC of 486 Patient was started on Cardizem drip and will be admitted for further management Review of Systems Review of Systems: Yes all other systems are reviewed and are negative [facility] Medical History ARIAN (acute kidney injury) Alcohol dependence Alcohol intoxication Alcohol withdrawal Alcohol withdrawal delirium Anemia Atrial fibrillation with RVR Atrial fibrillation with RVR Chronic atrial fibrillation Depression Dyslipidemia Heart failure with left ventricular ejection fraction greater than or equal to 50 percent History of alcohol abuse Incarcerated incisional hernia Insomnia Metabolic acidosis with increased anion gap and accumulation of organic acids Morbid obesity Obesity Oral thrush Pulmonary embolism Thoracic aortic aneurysm Toenail deformity Family History Mother No problems noted. Father No problems noted. Family/Other Substance use disorder Surgical History History of incisional hernia repair History of inguinal hernia repair Hx of gastric bypass S/P cholecystectomy Social History Household Members: None Household Members Other:: lives with mother Housing: Apartment Do you presently have visiting nurse or other home services: Yes Unable to assess alcohol history related to: Unable to respond Alcohol intake: current Alcohol intake frequency: other Alcohol type: beer and wine Patient Tobacco Use Status: Never used Tobacco e-Cigarette/Vaping Use: Never Used Second Hand Smoke Exposure: No Advance Directives: No Advance Directives Information Provided: No service: No Current occupational status: retired [employer] Allergies Allergy/AdvReac Type Severity Reaction Status Date / Time No Known Allergies Allergy Verified 12/15/20 05:52 Active Medications: Current Medications Diltiazem HCl (Diltiazem Hcl Cd 180 Mg Cap.Er.24h) 360 mg PO DAILY [facility]; Protocol Diltiazem HCl 125 mg/ Sodium (Chloride) 125 mls @ 0 mls/hr IVCONT .Q0M [facility]; Protocol Last Titration: 03/25/21 19:47 Dose: 15 mg/hr, 15 mls/hr Documented by: Metoprolol Tartrate (Metoprolol Tartrate 100 Mg Tablet) 100 mg PO BID [facility]E; Protocol Pharmacy Consult (Consult Rx Perform Med Rec) 1 each MISCELLANE ONCE PRN PRN Reason: Consult order Home Medications Medication Instructions Recorded Confirmed Last Taken Type melatonin 3 mg capsule 3 mg PO BEDTIME PRN 03/20/21 03/25/21 Unknown History Physical Exam Vital Signs and Narrative: Vital Signs: Last Vital Signs Temp 98.0 F 03/25/21 16:58 Pulse 107 H 03/25/21 22:40 Resp 16 03/25/21 22:40 BP 152/104 H 03/25/21 22:05 Pulse Ox 99 03/25/21 22:05 BMI result Body Mass Index 41.6 Const: Other: Poor hygiene General: cooperative and no acute distress Orientation/consciousness: patient oriented x3 Eyes: General: appearance normal, both eyes and all related structures Pupils: Equal, round and reactive pupils present Resp: Effort & Inspection: normal respiratory effort Auscultation: clear to auscultation bilaterally Cardio: Other: Irregular rhythm, tachycardic GI: Palpation (GI): Soft to palpation Auscultation: normal bowel sounds Skin: General skin exam: no rashes or lesions noted Neuro: General: patient oriented x3 Cranial nerves: Yes Equal, round and reactive pupils present Cognition (Neuro): normal cognition Extrem: General: Yes normal to inspection and Yes no pedal edema Results Labs CBC and Chem 7: 03/25/21 19:47 03/25/21 19:59 Labs: Laboratory Results - last 24 hr 03/25/21 03/25/21 03/25/21 19:47 19:47 19:47 MCV 95.0 MCH 28.9 MCHC 30.4 L RDW 20.7 H Plt Count 218 D MPV 10.7 Immature Gran % (Auto) 1.6 H Neut % (Auto) 67.6 Lymph % (Auto) 19.7 L [place] % (Auto) 8.5 Eos % (Auto) 2.0 Baso % (Auto) 0.6 Lymph # (Auto) 1.0 L [place] # (Auto) 0.4 Eos # (Auto) 0.1 Baso # (Auto) 0.0 Abs Immat Gran (auto) 0.08 H Absolute Neuts (auto) 3.4 Absolute Nucleated RBC 0.000 Nucleated RBC % (auto) 0.0 Anion Gap Estim Creat Clear Calc Estimated GFR Random Glucose Calcium Phosphorus Magnesium Total Bilirubin AST ALT Alkaline Phosphatase Troponin I High Sens B-Natriuretic Peptide Total Protein Albumin Urine Color Urine Appearance Urine pH Ur Specific [place] Urine Protein Urine Glucose (UA) Urine Ketones Urine Blood Urine Nitrite Ur Leukocyte Esterase Urine RBC Urine WBC Ur Squamous Epith Cells Amorphous Sediment Urine Bacteria Ethyl Alcohol 17 COVID-19 (NOLAN) Negative COVID-19 Clin Com See Note 03/25/21 03/25/21 03/25/21 19:47 19:59 19:59 MCV MCH MCHC RDW Plt Count MPV Immature Gran % (Auto) Neut % (Auto) Lymph % (Auto) [place] % (Auto) Eos % (Auto) Baso % (Auto) Lymph # (Auto) [place] # (Auto) Eos # (Auto) Baso # (Auto) Abs Immat Gran (auto) Absolute Neuts (auto) Absolute Nucleated RBC Nucleated RBC % (auto) Anion Gap 15 Estim Creat Clear Calc 131.8 Estimated GFR > 60 Random Glucose 84 Calcium 8.5 Phosphorus 2.2 L Magnesium 2.6 Total Bilirubin 0.3 AST 29 D ALT 47 H Alkaline Phosphatase 89 D Troponin I High Sens 31.0 B-Natriuretic Peptide 62 Total Protein 6.5 Albumin 3.5 Urine Color YELLOW Urine Appearance CLEAR Urine pH 5.5 Ur Specific [place] 1.025 Urine Protein NEG Urine Glucose (UA) NEG Urine Ketones NEG Urine Blood NEG Urine Nitrite NEG Ur Leukocyte Esterase NEG Urine RBC 0 Urine WBC 0 Ur Squamous Epith Cells TRACE Amorphous Sediment TRACE Urine Bacteria NONE Ethyl Alcohol COVID-19 (NOLAN) COVID-19 Clin Com Imaging Radiologist's Impressions: Impressions Head CT 03/25/21 20:27 IMPRESSION: Limited evaluation as above. Accounting for these limitations, there is no evidence of acute intracranial hemorrhage or edematous territorial infarction. Chest CTA 03/25/21 21:39 IMPRESSION: No evidence of pulmonary embolism. Cardiomegaly with some degree of reflux of contrast into the IVC but not into the hepatic veins questioning the presence of increased right-sided heart pressures. Low lung volumes with subsegmental atelectasis. Small hiatal hernia with circumferential wall thickening of the distal esophagus which might be due to reflux esophagitis. Hepatic steatosis. VTE: negative Assessment and Plan (1) Atrial fibrillation with RVR: Status: Acute (2) Hypophosphatemia: Status: Acute (3) Sciatica: Status: Acute (4) Chest pain: Status: Acute 60-year-old male with 6 stents past medical history that includes AFib presents to the hospital with complaints of chest pain found to have a above with RVR # AFib with RVR - most likely secondary to his noncompliance with his medications for the past 2 days - no evidence of acute infection - UA negative, chest CT negative, afebrile, no leukocytosis - Started on Cardizem drip - will resume his p.o. 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
[2021-03-26] VITALS (10 sets, daily range): BP systolic 101–146; BP diastolic 50–103; PULSE 65–121; RESP 13–18; TEMP 36.4–36.8; O2SAT 64–98
[2021-03-26] MEDS: dilTIAZem HCL CD 180 MG CAP.ER.24H 360 MG PO ×2 (00:08→08:34)
[2021-03-26] MEDS: Metoprolol Tartrate 100 MG TABLET PO ×3 (00:08→21:44)
--- NOTE | 2021-03-26 00:09 | PC.NURSE ---
pt noticed to have o2 sat at 86% on RA while asleep, placed on 2L NC, sat improved to 95%
[2021-03-26] MEDS: Apixaban 5 MG TABLET PO ×3 (02:30→21:44)
[2021-03-26] MEDS: Atorvastatin Calcium 40 MG TABLET PO ×2 (02:30→21:44)
[2021-03-26] MEDS: Lidocaine 4 % Patch ADH..PATCH 1 PATCH TRANSDERMA ×2 (03:16→08:32)
[2021-03-26] MEDS: traMADoL HCL 50 MG TABLET PO (05:56)
[2021-03-26] MEDS: 0.9 % Sodium Chloride Flush 3 ML SYRINGE IVFLUSH ×2 (07:23→15:16)
[2021-03-26 07:28] LABS: MANUAL DIFF FLAG NO
[2021-03-26] MEDS: Acetaminophen 325 MG TABLET 650 MG PO (07:28)
[2021-03-26] MEDS: Cyclobenzaprine HCl 10 MG TABLET PO ×2 (07:28→18:48)
[2021-03-26 07:30] LABS: Basophils Percent Auto 0.7 % (0-2); Eosinophils Absolute Auto 0.1 X10*3/uL (0.0-0.4); Eosinophils Percent Auto 2.6 % (0-4); Hematocrit 35.8 % (42.0-52.0); Hemoglobin 10.7 g/dl (14.0-18.0); Imm Gran Abs Auto 0.04 X10*3/uL (0.00-0.03); Imm Gran Pct Auto 0.7 % (0.0-0.4); Lymphocytes Absolute Auto 0.8 X10*3/uL (1.2-4.9); Lymphocytes Percent Auto 15.3 % (20-40); Mean Corpuscular HGB Conc 29.9 g/dl (31.0-36.0); Mean Corpuscular Hemoglobin 28.4 pg (27.0-33.0); Mean Platelet Volume 10.7 fL (9.4-12.4); Monocytes Absolute Auto 0.5 X10*3/uL (0.1-1.2); Monocytes Percent Auto 8.9 % (2-11); Neutrophils Absolute Auto 3.9 x10*3/uL (2.0-8.3); Neutrophils Percent Auto 71.8 % (45-73); Platelet Count 205 X10*3/uL (160-400); Red Blood Count 3.77 X10*6/uL (4.60-5.80); Red Cell Distribution Width 21.2 % (11.0-16.0); White Blood Count 5.5 X10*3/uL (4.8-10.8)
[2021-03-26 07:47] LABS: Anion Gap 14 (12-20); Blood Urea Nitrogen 9 mg/dL (9-16); Calcium 8.2 mg/dL (8.4-10.2); Carbon Dioxide 22 mmol/L (22-29); Chloride 110 mmol/L (96-108); Creatinine Clr Calc Pharmacy 153.8; Estimated Glomerular Filt Rate > 60; Glucose Random 91 mg/dL (60-115); Potassium 4.6 mmol/L (3.3-5.1); Sodium 141 mmol/L (135-145)
--- NOTE | 2021-03-26 08:23 | HO.PM.IMPN ---
Subjective Subjective Date of Service: 03/26/21 Interval History: uti, afib Review of Systems ventricular rate seem to be improving, was going into 50 and 40s even in the early mornin, Cardizem drip was stopped. Denies any chest pain or shortness of breath or abdominal pain or fever chills or cough or phlegm Physical Exam Vital Signs: Vital Signs: Last Vital Signs Temp 98.2 F 03/26/21 07:24 Pulse 93 03/26/21 07:24 Resp 14 03/26/21 07:24 BP 115/61 03/26/21 07:24 Pulse Ox 97 03/26/21 07:24 BMI result Body Mass Index 41.6 Appearance: Alert.? Oriented X3.? not in distress.? Eyes: Pupils equal, round and reactive to light.? Sclera nonicteric.? ENT: Pharynx normal.? Moist mucous membranes. cvs: irregular rythem, [id number]. res: clear to auscultation ,no rhonchii or wheezing abd: no rebound or guarding ,nt, bs present. ext pulses present , no cyanosis , ch pain neuro: axo3 , nonfocal. Objective Data Active Medications Acetaminophen (Acetaminophen 325 Mg Tablet) 650 mg PO Q6H PRN PRN Reason: Pain, Mild (Pain Scale 1-3) Last Admin: 03/26/21 07:28 Dose: 650 mg Documented by: GABRIELLE Apixaban (Apixaban 5 Mg Tablet) 5 mg PO BID [facility] Last Admin: 03/26/21 02:30 Dose: 5 mg Documented by: SARAH Aripiprazole (Aripiprazole 5 Mg Tablet) 5 mg PO DAILY [facility] Atorvastatin Calcium (Atorvastatin Calcium 40 Mg Tablet) 40 mg PO BEDTIME [facility] Last Admin: 03/26/21 02:30 Dose: 40 mg Documented by: SARAH Cyclobenzaprine HCl (Cyclobenzaprine Hcl 10 Mg Tablet) 10 mg PO TID PRN PRN Reason: back pain Last Admin: 03/26/21 07:28 Dose: 10 mg Documented by: GABRIELLE Diltiazem HCl (Diltiazem Hcl Cd 180 Mg Cap.Er.24h) 360 mg PO DAILY [facility]; Protocol Last Admin: 03/26/21 00:08 Dose: 360 mg Documented by: SARAH Docusate Sodium (Docusate Sodium 100 Mg Capsule) 100 mg PO DAILY PRN PRN Reason: Constipation Diltiazem HCl 125 mg/ Sodium (Chloride) 125 mls @ 0 mls/hr IVCONT .Q0M [facility]; Protocol Last Titration: 03/26/21 05:24 Dose: 0 mg/hr, 0 mls/hr Documented by: AIDA Potassium Phosphate 30 mmol/ (Sodium Chloride) 510 mls @ 85 mls/hr IV ONCE ONE Stop: 03/26/21 13:59 Lidocaine (Lidocaine 4 % Patch Adh..Patch) 1 patch TRANSDERMA DAILY [facility]; Protocol Last Admin: 03/26/21 03:16 Dose: 1 patch Documented by: AIDA Loperamide HCl (Loperamide Hcl 2 Mg Capsule) 2 mg PO Q6H PRN PRN Reason: diarrhea Melatonin (Melatonin 3 Mg Tablet) 3 mg PO BEDTIME PRN PRN Reason: Sleep Metoprolol Tartrate (Metoprolol Tartrate 100 Mg Tablet) 100 mg PO BID [facility]; Protocol Last Admin: 03/26/21 00:08 Dose: 100 mg Documented by: SARAH Ondansetron HCl (Ondansetron Hcl 4 Mg/2 Ml Vial) 4 mg IVPUSH Q8H PRN PRN Reason: Nausea and Vomiting Pharmacy Consult (Consult Rx Perform Med Rec) 1 each MISCELLANE ONCE PRN PRN Reason: Consult order Sodium Chloride (0.9 % Sodium Chloride Flush 3 Ml Syringe) 3 ml IVFLUSH QSHIFT [facility] Last Admin: 03/26/21 07:23 Dose: 3 ml Documented by: GABRIELLE Venlafaxine HCl (Venlafaxine Hcl Er 150 Mg Cap.Er.24h) 150 mg PO DAILY [facility] Labs CBC & Chem 7: 03/26/21 07:06 03/26/21 07:06 Labs: Laboratory Results - last 24 hr 03/25/21 03/25/21 03/25/21 19:47 19:47 19:47 MCV 95.0 MCH 28.9 MCHC 30.4 L RDW 20.7 H Plt Count 218 D MPV 10.7 Immature Gran % (Auto) 1.6 H Neut % (Auto) 67.6 Lymph % (Auto) 19.7 L [place] % (Auto) 8.5 Eos % (Auto) 2.0 Baso % (Auto) 0.6 Lymph # (Auto) 1.0 L [place] # (Auto) 0.4 Eos # (Auto) 0.1 Baso # (Auto) 0.0 Abs Immat Gran (auto) 0.08 H Absolute Neuts (auto) 3.4 Absolute Nucleated RBC 0.000 Nucleated RBC % (auto) 0.0 Anion Gap Estim Creat Clear Calc Estimated GFR Random Glucose Calcium Phosphorus Magnesium Total Bilirubin AST ALT Alkaline Phosphatase Troponin I High Sens B-Natriuretic Peptide Total Protein Albumin Urine Color Urine Appearance Urine pH Ur Specific [place] Urine Protein Urine Glucose (UA) Urine Ketones Urine Blood Urine Nitrite Ur Leukocyte Esterase Urine RBC Urine WBC Ur Squamous Epith Cells Amorphous Sediment Urine Bacteria Ethyl Alcohol 17 COVID-19 ([facility]) Negative COVID-19 Clin Com See Note 03/25/21 03/25/21 03/25/21 19:47 19:59 19:59 MCV MCH MCHC RDW Plt Count MPV Immature Gran % (Auto) Neut % (Auto) Lymph % (Auto) [place] % (Auto) Eos % (Auto) Baso % (Auto) Lymph # (Auto) [place] # (Auto) Eos # (Auto) Baso # (Auto) Abs Immat Gran (auto) Absolute Neuts (auto) Absolute Nucleated RBC Nucleated RBC % (auto) Anion Gap 15 Estim Creat Clear Calc 131.8 Estimated GFR > 60 Random Glucose 84 Calcium 8.5 Phosphorus 2.2 L Magnesium 2.6 Total Bilirubin 0.3 AST 29 D ALT 47 H Alkaline Phosphatase 89 D Troponin I High Sens 31.0 B-Natriuretic Peptide 62 Total Protein 6.5 Albumin 3.5 Urine Color YELLOW Urine Appearance CLEAR Urine pH 5.5 Ur Specific [place] 1.025 Urine Protein NEG Urine Glucose (UA) NEG Urine Ketones NEG Urine Blood NEG Urine Nitrite NEG Ur Leukocyte Esterase NEG Urine RBC 0 Urine WBC 0 Ur Squamous Epith Cells TRACE Amorphous Sediment TRACE Urine Bacteria NONE Ethyl Alcohol COVID-19 ([facility]) COVID-19 Clin Com 03/26/21 03/26/21 03/26/21 00:20 07:06 07:06 MCV 95.0 MCH 28.4 MCHC 29.9 L RDW 21.2 H Plt Count 205 MPV 10.7 Immature Gran % (Auto) 0.7 H Neut % (Auto) 71.8 Lymph % (Auto) 15.3 L [place] % (Auto) 8.9 Eos % (Auto) 2.6 Baso % (Auto) 0.7 Lymph # (Auto) 0.8 L [place] # (Auto) 0.5 Eos # (Auto) 0.1 Baso # (Auto) 0.0 Abs Immat Gran (auto) 0.04 H Absolute Neuts (auto) 3.9 Absolute Nucleated RBC 0.000 Nucleated RBC % (auto) 0.0 Anion Gap 14 Estim Creat Clear Calc 153.8 Estimated GFR > 60 Random Glucose 91 Calcium 8.2 L Phosphorus Magnesium Total Bilirubin AST ALT Alkaline Phosphatase Troponin I High Sens 27.0 B-Natriuretic Peptide Total Protein Albumin Urine Color Urine Appearance Urine pH Ur Specific [place] Urine Protein Urine Glucose (UA) Urine Ketones Urine Blood Urine Nitrite Ur Leukocyte Esterase Urine RBC Urine WBC Ur Squamous Epith Cells Amorphous Sediment Urine Bacteria Ethyl Alcohol COVID-19 ([facility]) COVID-19 Clin Com Assessment and Plan (1) Atrial fibrillation with RVR: Status: Acute (2) UTI (urinary tract infection): Status: Acute Assessment and Plan: 60-year-old male with 6 stents past medical history that includes AFib presents to the hospital with complaints of chest pain found to have a above with RVR 1. AFib with RVR- most likely secondary to his noncompliance with his medications for the past 2 days - no evidence of acute infection UA negative, chest CT negative, afebrile, no leukocytosis off Cardizem drip, resume his p.o. 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 sciatica pain - complaining of flare - will give him 1 dose of oxycodone and lidocaine patch 5.hypophosphatemia: improving , still low - repleted - will repeat level Quality Stroke Does the patient have a stroke diagnosis?: No VTE Prior VTE?: No VTE Risk Level:: Medical - moderate - high VTE Device Contraindication: Treatment Not Indicated VTE Drug Contraindication: N/A - Med Ordered
[2021-03-26] MEDS: Potassium Phosphate 30 MMOL in 0.9 % Sodium Chloride 500 ML 85 MMOL IV (08:34)
[2021-03-26] MEDS: Venlafaxine HCl ER 150 MG CAP.ER.24H PO (08:35)
[2021-03-26] MEDS: ARIPiprazole 5 MG TABLET PO (08:35)
[2021-03-26] MEDS: Nystatin Oral Susp 500,000 UNIT/5 ML ORAL.SUSP 500000 UNIT PO ×3 (11:43→21:45)
[2021-03-26] MEDS: Acamprosate Calcium 333 MG TABLET.DR 666 MG PO ×3 (11:43→21:44)
[2021-03-26] MEDS: oxyCODONE HCl Immed Release 5 MG TABLET 10 MG PO ×2 (11:43→18:48)
[2021-03-26] MEDS: Vilazodone HCL 20 MG TABLET PO (11:44)
[2021-03-26] MEDS: Ibuprofen 400 MG TABLET PO (11:48)
--- NOTE | 2021-03-26 14:26 | MHC.CM.PN ---
IMM 03/25/21 Male 60 DX AFIB RVR. Patient recently discharged from [facility] for STR. He was staying in a hotel at discharge. He did not obtain any medications prescribed. He comes in with weakness deconditioning and AFIB/RVR. He has been ordered a PT evaluation. Met with patient to discuss dc planning. Preferences for STRs were obtained. The referrals have been sent. [facility] [address] [facility] 3rd [facility]. DP STR via BLS.
--- NOTE | 2021-03-26 15:21 | PC.NURSE ---
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
--- NOTE | 2021-03-26 16:01 | PC.NURSE ---
called pharmacy for missing medications
--- NOTE | 2021-03-26 16:12 | PC.NURSE ---
patient medicated for pain per order, poc obtained
--- NOTE | 2021-03-26 16:14 | PC.NURSE ---
Pt oob and assisted to bathroom with Shandra Pepe. RN Aware
[2021-03-26] MEDS: Sodium,Potassium Phosphates POWD.PACK 1 PACKET PO (16:20)
[2021-03-26] MEDS: Sennosides 8.6 MG TABLET 17.2 MG PO (21:44)
[2021-03-26] MEDS: Docusate Sodium 100 MG CAPSULE PO (21:44)
[2021-03-27] MEDS: oxyCODONE HCl Immed Release 5 MG TABLET 10 MG PO ×4 (01:04→21:06)
[2021-03-27] MEDS: Cyclobenzaprine HCl 10 MG TABLET PO ×2 (01:05→14:49)
[2021-03-27 06:20] VITALS: BP 118/60; PULSE 70; RESP 14; TEMP 36.7; O2SAT 96
[2021-03-27] MEDS: Acamprosate Calcium 333 MG TABLET.DR 666 MG PO ×3 (08:54→21:00)
[2021-03-27 08:55] VITALS: BP 126/73; PULSE 87
[2021-03-27] MEDS: Lidocaine 4 % Patch ADH..PATCH 1 PATCH TRANSDERMA ×2 (08:55→08:56)
[2021-03-27] MEDS: dilTIAZem HCL CD 180 MG CAP.ER.24H 360 MG PO (08:55)
[2021-03-27 08:56] VITALS: BP 126/73; PULSE 101
[2021-03-27] MEDS: Metoprolol Tartrate 100 MG TABLET PO ×2 (08:56→21:00)
[2021-03-27] MEDS: ARIPiprazole 5 MG TABLET PO (08:56)
[2021-03-27] MEDS: Vilazodone HCL 20 MG TABLET PO (08:57)
[2021-03-27] MEDS: Venlafaxine HCl ER 150 MG CAP.ER.24H PO (08:57)
[2021-03-27] MEDS: Nystatin Oral Susp 500,000 UNIT/5 ML ORAL.SUSP 500000 UNIT PO ×4 (08:57→20:59)
[2021-03-27] MEDS: 0.9 % Sodium Chloride Flush 3 ML SYRINGE IVFLUSH ×2 (08:59)
--- NOTE | 2021-03-27 09:15 | PC.NURSE ---
Pt Alert and Oriented x 3, pain 8/10 to lower back at this time. A fib on the monitor. Asking why his pain medication isn't just given to him when it is due. Explained the need for pt to request it and he will not be woken up by RN to give pain medication. Pt is aware of how to request pain medication at this time. VS as charted, awaiting bed assignment, approx 75% of breakfast eaten at this time. Will continue to moitor.
--- NOTE | 2021-03-27 10:18 | P.CDIC_ITS ---
CDI Concurrent Query Documentation Clarification: PHYSICIAN'S DOCUMENTATION REQUEST Date of Query: 03/27/21 1019 Patient Name: Bennie Potts JR Admit Date: 03/26/21 Dear Doctor, A review of the medical record indicates additional documentation may be needed. Please review below and update the documentation accordingly. Clinical Indicators: Risk Factors/Clinical Indicators/Treatments PMH Atrial fibrillation on Eliquis HR 138 IV Diltiazem, Lopressor. Patient noncompliant with medications, chest pain. Abnormal ECG If possible, please provide further specificity regarding atrial fibrillation, such as: * Paroxysmal atrial fibrillation: terminates spontaneously or with intervention within 7 days of onset. * Persistent atrial fibrillation: episodes of continuous AF that last more than 7 days and do not self-terminate. * Long lasting persistent atrial fibrillation: episodes of continuous AF that last more than 12 months, * Chronic or Permanent atrial fibrillation: when a decision has been made to accept the presence of AF and there is no further attempt to restore or maintain sinus rhythm. * Other * Unable to determine Use of terms such as suspected, likely, concern for, or probable (associated with a specific diagnosis that is being evaluated, monitored, or treated as if it exists) are acceptable and can be coded in the inpatient setting, when documented at the time of discharge. Thank you, Padmini Duran [facility], CDIS Extension: [phone] Please use your independent medical judgment in providing your response. THIS QUERY IS PART OF THE PERMANENT MEDICAL RECORD Provider Response: Other Other Diagnosis: chronic A fib.
[2021-03-27] MEDS: Apixaban 5 MG TABLET PO ×2 (10:33→21:07)
[2021-03-27] MEDS: Sodium,Potassium Phosphates POWD.PACK 1 PACKET PO (12:01)
[2021-03-27] MEDS: predniSONE 20 MG TABLET 40 MG PO (12:01)
--- NOTE | 2021-03-27 12:07 | PC.NURSE ---
Pt resting at this time, awakes to voice, pt questioning what he is waiting for, explained pt told MD he doesn't have a home, he is waiting for a PT eval and then most likely case management to see how we can help him. Call ortiz within reach, will continue to monitor.
--- NOTE | 2021-03-27 13:07 | PM.DS ---
DS: Providers Provider Date of Service: 03/27/21 Date of admission: 03/26/21 01:28 Primary care physician: Unknown Physician DS: Diagnosis Discharge Diagnosis (1) UTI (urinary tract infection): Status: Acute DS: Summary Hospital Course Hospital Course: Chief Complaint: chest pain 60-year-old male with a past medical history of hypertension, hyperlipidemia, CHF, history of pulmonary embolism, AFib on Eliquis,, PE, anemia, anxiety, depression, history of thoracic aortic aneurysm, history of gastric bypass surgery, alcohol abuse presented to the hospital today with complaints of chest pain, dizziness, and sciatic pain.? Patient reports that he was at [facility] Saturday when he left because he felt that the [facility] was very [facility] and eating 1 to stay there, after leaving the [facility] he went to a hotel but had none of his medications.? And has been without his medication for the past 2 days.? He describes the chest pain as midsternal, radiating to his left arm, 810, started at rest, currently resolving, improves with bending over.? He has also been feeling palpitations. He otherwise is any headache, change in vision no abdominal pain nausea or vomiting, no diarrhea constipation, no urinary symptoms and no lower extremity edema. On arrival to the ED patient found to have a heart rate in the 140s, blood pressure in the 160s/90s, afebrile, Labs are significant for WBC count of 5.1, hemoglobin of 11, hematocrit 36.2, phosphorus of 2.2, UA negative, BNP negative, troponin negative x2 chest CT angiogram shows no PE, but shows cardiomegaly with some degree of reflux of contrast into the IVC but not into the hepatic veins questioning the presence of increased right heart pressure, low lung volumes with subsegmental atelectasis. EKG shows AFib with RVR with elevated QTC of 486 Patient was started on Cardizem drip and will be admitted for further management. Hospital course: 1. Chronic AFib with RVR- most likely secondary to his noncompliance with his medications for the past 2 days, was briefly on cardizem drip and was transitioned back to his home med and to continue Eliquis for stroke prevention. 2.Chest pain-resolved, no evidence of ACS 3. Chronic diastolic CHF, euvolemic - appears volume depleted - continue metoprolol 4. sciatica pain - complaining of flare ?tylenol,oxycodone and lidocaine patch, short course of prednisone 5.hypophosphatemia Supplement given Time Spent with Patient Time attestation: Total time spent providing and/or coordinating discharge services: Discharge coordination time: Greater than 30 minutes Quality: Stroke Does the patient have a stroke diagnosis?: No Physical Exam Vital Signs: Vital Signs: Last Vital Signs Temp 98.0 F 03/27/21 06:20 Pulse 101 H 03/27/21 08:56 Resp 14 03/27/21 06:20 BP 126/73 03/27/21 08:56 Pulse Ox 96 03/27/21 06:20 BMI result Body Mass Index 41.6 DS: Data Data Completed and Pending Completed studies during hospitalization [Text1]: Procedures Detoxification Services for Substance Abuse Treatment (03/06/21) Insertion of Infusion Device into Right Atrium, Percutaneous Approach (02/08/21) Repair Abdominal Wall, Open Approach (02/08/21) Respiratory Ventilation, 24-96 Consecutive Hours (02/08/21) Discharge Plan Discharge Anticipated Discharge Date/Time: 03/28/21 11:10 Patient Disposition: Home Health Service Discharge Diagnosis: afib with rvr , uti Referrals: [facility] [Outside] - 1 Week Physician,Unknown J [Primary Care Provider] - 1 Week Discharge Medications: New omeprazole 20 mg capsule,delayed release(DR/EC) 20 mg PO DAILY Qty: 30 RF: 0 sennosides [Senna Lax] 8.6 mg Tablet 17.2 mg PO BEDTIME Qty: 30 RF: 0 lidocaine [Lidocaine Pain Relief] 4 % Adhesive Patch,Medicated 1 patch transdermal DAILY Qty: 10 RF: 0 docusate sodium [Colace] 100 mg capsule 100 mg PO DAILY PRN (Reason: constipation) Qty: 30 RF: 0 prednisone 20 mg tablet 20 mg PO DAILY Qty: 5 RF: 0 acetaminophen 325 mg Tablet 650 mg PO Q6H PRN (Reason: Pain, Mild (Pain Scale 1-3)) Qty: 30 RF: 0 oxycodone 5 mg Tablet 5 mg PO Q6H PRN (Reason: Pain, Mild (Pain Scale 1-3)) Qty: 5 RF: 0 prednisone 20 mg tablet 20 mg PO DAILY Qty: 3 RF: 0 Continued loperamide [Imodium A-D] 2 mg capsule 2 mg PO Q6H PRN (Reason: diarrhea) Qty: 30 RF: 0 cyclobenzaprine 10 mg Tablet 10 mg PO TID PRN (Reason: back pain) Qty: 30 RF: 0 diltiazem HCl [Cardizem CD] 180 mg Capsule,Extended Release 24hr 360 mg PO DAILY Qty: 30 RF: 0 metoprolol tartrate 100 mg Tablet 100 mg PO BID Qty: 60 RF: 0 nystatin 100,000 unit/mL Suspension 500,000 unit PO QID RF: 0 ondansetron 4 mg Tablet,Disintegrating 4 mg PO Q8H PRN (Reason: Nausea And Vomiting) RF: 0 acamprosate 333 mg tablet,delayed release (DR/EC) 2 tab PO TID RF: 0 vilazodone 20 mg Tablet 20 mg PO DAILY RF: 0 Eliquis 5 mg tablet 5 mg PO BID 90 Days Qty: 180 RF: 3 aripiprazole [Abilify] 5 mg tablet 5 mg PO DAILY 90 Days Qty: 90 RF: 1 atorvastatin 40 mg tablet 40 mg PO BEDTIME 90 Days Qty: 90 RF: 3 venlafaxine [Effexor XR] 150 mg capsule,extended release 24hr 150 mg PO DAILY 90 Days Qty: 90 RF: 3 melatonin 3 mg capsule 3 mg PO BEDTIME PRN (Reason: Sleep) RF: 0 Discharge Orders: Discharge Order (Routine); Ordered 03/28/21 Ordered By: Harvey Oro Diet: advance to usual diet, low fat, low cholesterol and low salt diet Activity on Discharge: As tolerated Stand Alone Forms: Patient Portal Discharge page Care Plan Goals: patient came to the hospital because of AFib with RVR possible related to medication noncompliance. Patient briefly refer received diltiazem drip and seems to be improved, going home with home AFib medications. Strongly encouraged to be compliant with medication. UTI boyd: Seems to be improving, will give antibiotic, complete the course at home. sciatica flare-Leg pain seems to be improving also: : Given prednisone, continue cyclobenzaprine, PT saw the patient. Health Concerns: As above. Plan of Treatment: As above. Assessment: As above. Discharge Date/Time: 03/28/21 15:58
--- NOTE | 2021-03-27 13:08 | P.PNIM_ITS ---
Subjective Subjective Date of Service: 03/27/21 Interval History: uti, afib Review of Systems says heart rate boyd seems to be improving, Denies any chest pain or shortness of breath or abdominal pain or fever chills or cough or phlegm Physical Exam Vital Signs: Vital Signs: Last Vital Signs Temp 98.0 F 03/27/21 06:20 Pulse 101 H 03/27/21 08:56 Resp 14 03/27/21 06:20 BP 126/73 03/27/21 08:56 Pulse Ox 96 03/27/21 06:20 BMI result Body Mass Index 41.6 Appearance: Alert.? Oriented X3.? not in distress.? Eyes: Pupils equal, round and reactive to light.? Sclera nonicteric.? ENT: Pharynx normal.? Moist mucous membranes. cvs: irregular rythem, [id number]. res: clear to auscultation ,no rhonchii or wheezing abd: no rebound or guarding ,nt, bs present. ext pulses present , no cyanosis , ch pain neuro: axo3 , nonfocal. Objective Data Active Medications Acamprosate (Acamprosate Calcium 333 Mg Tablet.) 666 mg PO TID COUNT INCLUDES THE [facility] Last Admin: 03/27/21 08:54 Dose: 666 mg Documented by: VERONICA Acetaminophen (Acetaminophen 325 Mg Tablet) 650 mg PO Q6H PRN PRN Reason: Pain, Mild (Pain Scale 1-3) Last Admin: 03/26/21 07:28 Dose: 650 mg Documented by: COOPEB Apixaban (Apixaban 5 Mg Tablet) 5 mg PO BID COUNT INCLUDES THE [facility] Last Admin: 03/27/21 10:33 Dose: 5 mg Documented by: VERONICA Aripiprazole (Aripiprazole 5 Mg Tablet) 5 mg PO DAILY COUNT INCLUDES THE [facility] Last Admin: 03/27/21 08:56 Dose: 5 mg Documented by: VERONICA Atorvastatin Calcium (Atorvastatin Calcium 40 Mg Tablet) 40 mg PO BEDTIME COUNT INCLUDES THE [facility] Last Admin: 03/26/21 21:44 Dose: 40 mg Documented by: KATTY Cyclobenzaprine HCl (Cyclobenzaprine Hcl 10 Mg Tablet) 10 mg PO TID PRN PRN Reason: back pain Last Admin: 03/27/21 01:05 Dose: 10 mg Documented by: KATTY Diltiazem HCl (Diltiazem Hcl Cd 180 Mg Cap.Er.24h) 360 mg PO DAILY COUNT INCLUDES THE [facility]; Protocol Last Admin: 03/27/21 08:55 Dose: 360 mg Documented by: VERONICA Docusate Sodium (Docusate Sodium 100 Mg Capsule) 100 mg PO DAILY PRN PRN Reason: Constipation Docusate Sodium (Docusate Sodium 100 Mg Capsule) 100 mg PO BEDTIME MARILEE Last Admin: 03/26/21 21:44 Dose: 100 mg Documented by: KATTY Diltiazem HCl 125 mg/ Sodium (Chloride) 125 mls @ 0 mls/hr IVCONT .Q0M COUNT INCLUDES THE [facility]; Protocol Last Titration: 03/26/21 05:24 Dose: 0 mg/hr, 0 mls/hr Documented by: AIDA Lidocaine (Lidocaine 4 % Patch Adh..Patch) 1 patch TRANSDERMA DAILY COUNT INCLUDES THE [facility]; Protocol Last Admin: 03/27/21 08:55 Dose: 1 patch Documented by: VERONICA Lidocaine (Lidocaine 4 % Patch Adh..Patch) 1 patch TRANSDERMA DAILY COUNT INCLUDES THE [facility]; Protocol Last Admin: 03/27/21 08:56 Dose: 1 patch Documented by: VERONICA Loperamide HCl (Loperamide Hcl 2 Mg Capsule) 2 mg PO Q6H PRN PRN Reason: diarrhea Melatonin (Melatonin 3 Mg Tablet) 3 mg PO BEDTIME PRN PRN Reason: Sleep Metoprolol Tartrate (Metoprolol Tartrate 100 Mg Tablet) 100 mg PO BID COUNT INCLUDES THE [facility]; Protocol Last Admin: 03/27/21 08:56 Dose: 100 mg Documented by: VERONICA Nystatin (Nystatin Oral Susp 500,000 Unit/5 Ml Oral.Susp) 500,000 unit PO QID COUNT INCLUDES THE [facility]; Protocol Last Admin: 03/27/21 08:57 Dose: 500,000 unit Documented by: VERONICA Ondansetron HCl (Ondansetron Hcl 4 Mg/2 Ml Vial) 4 mg IVPUSH Q8H PRN PRN Reason: Nausea and Vomiting Ondansetron HCl (Ondansetron Odt 4 Mg Tab.Rapdis) 4 mg TRANSLINGU Q8H PRN PRN Reason: Nausea And Vomiting Oxycodone HCl (Oxycodone Hcl Immed Release 5 Mg Tablet) 10 mg PO Q6H PRN PRN Reason: Pain, Mild (Pain Scale 1-3) Last Admin: 03/27/21 08:56 Dose: 10 mg Documented by: VERONICA Pharmacy Consult (Consult Rx Perform Med Rec) 1 each MISCELLANE ONCE PRN PRN Reason: Consult order Potassium Phos/Sodium Phos (Sodium,Potassium Phosphates Powd.Pack) 1 packet PO DAILY COUNT INCLUDES THE [facility] Last Admin: 03/27/21 12:01 Dose: 1 packet Documented by: VERONICA Senna (Sennosides 8.6 Mg Tablet) 17.2 mg PO BEDTIME COUNT INCLUDES THE [facility] Last Admin: 03/26/21 21:44 Dose: 17.2 mg Documented by: KATTY Sodium Chloride (0.9 % Sodium Chloride Flush 3 Ml Syringe) 3 ml IVFLUSH QSHIFT COUNT INCLUDES THE [facility] Last Admin: 03/27/21 08:59 Dose: 3 ml Documented by: VERONICA Venlafaxine HCl (Venlafaxine Hcl Er 150 Mg Cap.Er.24h) 150 mg PO DAILY COUNT INCLUDES THE [facility] Last Admin: 03/27/21 08:57 Dose: 150 mg Documented by: VERONICA Vilazodone HCl (Vilazodone Hcl 20 Mg Tablet) 20 mg PO DAILY COUNT INCLUDES THE [facility] Last Admin: 03/27/21 08:57 Dose: 20 mg Documented by: VERONICA Labs CBC & Chem 7: 03/26/21 07:06 03/26/21 07:06 Assessment and Plan (1) UTI (urinary tract infection): Status: Acute (2) Hypophosphatemia: Status: Acute (3) Atrial fibrillation with RVR: Status: Acute Assessment and Plan: 60-year-old male with 6 stents past medical history that includes AFib presents to the hospital with complaints of chest pain found to have a above with RVR 1. AFib with RVR- most likely secondary to his noncompliance with his medications for the past 2 days - no evidence of acute infection ?UA negative, chest CT negative, afebrile, no leukocytosis off? Cardizem drip, resume his p.o. medications,continue Eliquis 2.chest pain- denies any chest pain this morning, has no elevated troponin x2, no EKG changes suggestive of ACS will admit to media monitor 3.history of heart failure - appears volume depleted - continue metoprolol 4. sciatica pain - complaining of flare tylenol,oxycodone and lidocaine patch, added small dose prednisone. 5.hypophosphatemia: improving , still low added neutrophos Pt eval - recommended more therapy at present. awaiting placement Quality Stroke Does the patient have a stroke diagnosis?: No VTE Prior VTE?: No VTE Risk Level:: Medical - moderate - high VTE Device Contraindication: Treatment Not Indicated VTE Drug Contraindication: N/A - Med Ordered
--- NOTE | 2021-03-27 14:18 | MHC.CM.PN ---
Received notification from Dr Perez that he would like to discharge patient. Physical therapy eval completed. Physical therapy feels patient is at baseline functional status. Met with patient in regards to discharge planning. Patient doesn't feel he can safely be discharged at this time because I can't walk . Patient is agreeable to referral being broadcasted and understands, placement may be in the [place] area. Referral broadcasted with in [address] Perez aware. Continue to monitor for d/c needs.
--- NOTE | 2021-03-27 14:58 | PC.NURSE ---
Pt A&Ox3, pain 11/15 at this time, medicated as per MAR orders. Pt ambulatory with steady gait, awaiting PT eval. Call ortiz within reach, will continue to monitor.
[2021-03-27 16:24] VITALS: BP 91/66; PULSE 85; RESP 20; TEMP 36.2; O2SAT 96
--- NOTE | 2021-03-27 18:26 | PC.NURSE ---
Pt sitting on side of bed, pain 4/10, pt is aware of when he can ask for more pain medication. A&Ox3, will continue to monitor.
[2021-03-27 21:00] VITALS: BP 122/90; PULSE 92
[2021-03-27] MEDS: Atorvastatin Calcium 40 MG TABLET PO (21:00)
[2021-03-27] MEDS: Docusate Sodium 100 MG CAPSULE PO (21:00)
[2021-03-27 21:05] VITALS: BP 122/90; PULSE 85; RESP 16; O2SAT 96
[2021-03-27] MEDS: Sennosides 8.6 MG TABLET 17.2 MG PO (21:06)
[2021-03-28] MEDS: Cyclobenzaprine HCl 10 MG TABLET PO ×2 (00:58→09:56)
[2021-03-28] MEDS: Melatonin 3 MG TABLET PO (00:58)
[2021-03-28] MEDS: 0.9 % Sodium Chloride Flush 3 ML SYRINGE IVFLUSH ×2 (00:59→09:57)
[2021-03-28] MEDS: oxyCODONE HCl Immed Release 5 MG TABLET 10 MG PO ×2 (03:19→09:56)
[2021-03-28 06:28] VITALS: BP 116/79; PULSE 90; RESP 10; TEMP 36.3; O2SAT 100
[2021-03-28] MEDS: Vilazodone HCL 20 MG TABLET PO (08:50)
[2021-03-28] MEDS: ARIPiprazole 5 MG TABLET PO (08:50)
[2021-03-28] MEDS: Venlafaxine HCl ER 150 MG CAP.ER.24H PO (08:50)
[2021-03-28 08:51] VITALS: BP 111/78; PULSE 104; PULSE 98
[2021-03-28] MEDS: Metoprolol Tartrate 100 MG TABLET PO (08:51)
[2021-03-28] MEDS: dilTIAZem HCL CD 180 MG CAP.ER.24H 360 MG PO (08:51)
[2021-03-28] MEDS: Acamprosate Calcium 333 MG TABLET.DR 666 MG PO ×2 (08:51→15:38)
[2021-03-28] MEDS: Apixaban 5 MG TABLET PO (08:51)
[2021-03-28] MEDS: Nystatin Oral Susp 500,000 UNIT/5 ML ORAL.SUSP 500000 UNIT PO ×2 (08:52→12:26)
--- NOTE | 2021-03-28 08:54 | PC.NURSE ---
Pt A&Ox3, awaiting PT eval at this time, states he is unable to ambulate and needs a facility, explained to pt PT will eval and make recommendations. Pt c/o pain 11/15, explained pain medication not due until 929, but pt refusing lido patches at this time. Otherakrissa offers no complaints, A fib on the monitor, no signs of distres noted, call ortiz within reach. Will continue to monitor.
[2021-03-28] MEDS: Sodium,Potassium Phosphates POWD.PACK 1 PACKET PO (09:56)
--- NOTE | 2021-03-28 11:02 | P.DS_ITS ---
DS: Providers Provider Date of Service: 03/28/21 Date of admission: 03/26/21 01:28 Primary care physician: Unknown Physician DS: Diagnosis Discharge Diagnosis (1) Atrial fibrillation with RVR: (2) UTI (urinary tract infection): Status: Acute DS: Summary Hospital Course Hospital Course: Chief Complaint: chest pain 60-year-old male with a past medical history of hypertension, hyperlipidemia, CHF, history of pulmonary embolism, AFib on Eliquis,, PE, anemia, anxiety, d epression, history of thoracic aortic aneurysm, history of gastric bypass surgery, alcohol abuse presented to the hospital today with complaints of chest pain, dizziness, and sciatic pain.? [facility] when [facility] because he felt that the [facility] was very [facility] and eating 1 to stay there, after leaving the [facility] he went to a hotel but had none of his medications.? And has been without his medication for the past 2 days.? He describes the chest pain as midsternal, radiating to his left arm, 810, started at rest, currently resolving, improves with bending over.? He has also been feeling palpitations. He otherwise is any headache, change in vision no abdominal pain nausea or vomiting, no diarrhea constipation, no urinary symptoms and no lower extremity edema. On arrival to the ED patient found to have a heart rate in the 140s, blood pressure in the 160s/90s, afebrile, Labs are significant for WBC count of 5.1, hemoglobin of 11, hematocrit 36.2, phosphorus of 2.2, UA negative, BNP negative, troponin negative x2 chest CT angiogram shows no PE, but shows cardiomegaly with some degree of reflux of contrast into the IVC but not into the hepatic veins questioning the presence of increased right heart pressure, low lung volumes with subsegmental atelectasis. EKG shows AFib with RVR with elevated QTC of 486 Patient was started on Cardizem drip and will be admitted for further management. Hospital course: 1. Chronic AFib with RVR- most likely secondary to his noncompliance with his medications for the past 2 days, was briefly on cardizem drip and was transitioned back to his home med and to continue Eliquis for stroke prevention. 2.Chest pain... resolved, no evidence of ACS 3. Chronic diastolic CHF, euvolemic - appears volume depleted - continue metoprolol 4. sciatica pain - complaining of flare ?tylenol,oxycodone and lidocaine patch, short course of prednisone 5.hypophosphatemia Supplement given Time Spent with Patient Time attestation: Total time spent providing and/or coordinating discharge services: Discharge coordination time: Greater than 30 minutes Quality: Stroke Does the patient have a stroke diagnosis?: No Physical Exam Verdana 4l Vital Signs: Verdana 4d Verdana 4d Vital Signs: Verdana 4d Verdana 4Bd Last Vital Signs Verdana 4d Extrusion Press Operator New 4d Extrusion Press Operator New 4d Temp 97.3 F 03/28/21 06:28 Extrusion Press Operator New 4d Pulse 98 03/28/21 08:51 Extrusion Press Operator NewNew 4d Resp 10 L 03/28/21 06:28 BP 111/78 03/28/21 08:51 Pulse Ox 100 03/28/21 06:28 BMI result Body Mass Index 41.6 Const: Other: General: AO X 3, no acute distress Resp: CTA bilateral CVS: S1,S2,RRR GI: +BS, NT, no distention Skin: No rash Neuro: motor grossly intact Psych: appropriate affect DS: Data Data Completed and Pending Completed studies during hospitalization [Text1]: Procedures Detoxification Services for Substance Abuse Treatment (03/06/21) Insertion of Infusion Device into Right Atrium, Percutaneous Approach (02/08/21) Repair Abdominal Wall, Open Approach (02/08/21) Respiratory Ventilation, 24-96 Consecutive Hours (02/08/21) Discharge Plan Discharge Anticipated Discharge Date/Time: 03/28/21 11:10 Patient Disposition: Home Health Service Discharge Diagnosis: afib with rvr , uti Referrals: [facility] [Outside] - 1 Week Physician,Unknown J [Primary Care Provider] - 1 Week Discharge Medications: New omeprazole 20 mg capsule,delayed release(DR/EC) 20 mg PO DAILY Qty: 30 RF: 0 sennosides [Senna Lax] 8.6 mg Tablet 17.2 mg PO BEDTIME Qty: 30 RF: 0 lidocaine [Lidocaine Pain Relief] 4 % Adhesive Patch,Medicated 1 patch transdermal DAILY Qty: 10 RF: 0 docusate sodium [Colace] 100 mg capsule 100 mg PO DAILY PRN (Reason: constipation) Qty: 30 RF: 0 prednisone 20 mg tablet 20 mg PO DAILY Qty: 5 RF: 0 acetaminophen 325 mg Tablet 650 mg PO Q6H PRN (Reason: Pain, Mild (Pain Scale 1-3)) Qty: 30 RF: 0 oxycodone 5 mg Tablet 5 mg PO Q6H PRN (Reason: Pain, Mild (Pain Scale 1-3)) Qty: 5 RF: 0 prednisone 20 mg tablet 20 mg PO DAILY Qty: 3 RF: 0 Continued loperamide [Imodium A-D] 2 mg capsule 2 mg PO Q6H PRN (Reason: diarrhea) Qty: 30 RF: 0 cyclobenzaprine 10 mg Tablet 10 mg PO TID PRN (Reason: back pain) Qty: 30 RF: 0 diltiazem HCl [Cardizem CD] 180 mg Capsule,Extended Release 24hr 360 mg PO DAILY Qty: 30 RF: 0 metoprolol tartrate 100 mg Tablet 100 mg PO BID Qty: 60 RF: 0 nystatin 100,000 unit/mL Suspension 500,000 unit PO QID RF: 0 ondansetron 4 mg Tablet,Disintegrating 4 mg PO Q8H PRN (Reason: Nausea And Vomiting) RF: 0 acamprosate 333 mg tablet,delayed release (DR/EC) 2 tab PO TID RF: 0 vilazodone 20 mg Tablet 20 mg PO DAILY RF: 0 Eliquis 5 mg tablet 5 mg PO BID 90 Days Qty: 180 RF: 3 aripiprazole [Abilify] 5 mg tablet 5 mg PO DAILY 90 Days Qty: 90 RF: 1 atorvastatin 40 mg tablet 40 mg PO BEDTIME 90 Days Qty: 90 RF: 3 venlafaxine [Effexor XR] 150 mg capsule,extended release 24hr 150 mg PO DAILY 90 Days Qty: 90 RF: 3 melatonin 3 mg capsule 3 mg PO BEDTIME PRN (Reason: Sleep) RF: 0 Discharge Orders: Discharge Order (Routine); Ordered 03/28/21 Ordered By: Harvey Oro Diet: advance to usual diet, low fat, low cholesterol and low salt diet Activity on Discharge: As tolerated Stand Alone Forms: Patient Portal Discharge page Care Plan Goals: patient came to the hospital because of AFib with RVR possible related to medication noncompliance. Patient briefly refer received diltiazem drip and seems to be improved, going home with home AFib medications. Strongly encouraged to be compliant with medication. UTI boyd: Seems to be improving, will give antibiotic, complete the course at home. sciatica flare-Leg pain seems to be improving also: : Given prednisone, continue cyclobenzaprine, PT saw the patient. Health Concerns: As above. Plan of Treatment: As above. Assessment: As above.
--- NOTE | 2021-03-28 11:20 | MHC.CM.PN ---
Pt is active [facility], a ref has been made. dc plan is for patient to return home c this [facility]na svcs. cm to cont. to follow.
--- NOTE | 2021-03-28 12:10 | P.CDIC_ITS ---
CDI Concurrent Query Documentation Clarification: PHYSICIAN'S DOCUMENTATION REQUEST Date of Query: 03/28/21 1212 Patient Name: Bennie Potts JR Admit Date: 03/26/21 Dear Doctor, A review of the medical record indicates additional documentation may be needed. Please review below and update the documentation accordingly. Clinical Indicators: Risk Factors/Clinical Indicators/Treatments H&P: PMH - CHF No edema BNP 60 Continue Metoprolol PN: Heart failure w left ventricle EF greater than or equal to 50%. Please provide further specificity regarding the most likely type and acuity of CHF you are evaluating, treating, or monitoring. Examples include: Type: * Systolic * Diastolic * Combined Systolic/Diastolic * Other ? please specify * Unable to determine Acuity: * Acute * Chronic * Unable to determine Use of terms such as suspected, likely, concern for, or probable (associated with a specific diagnosis that is being evaluated, monitored, or treated as if it exists) are acceptable and can be coded in the inpatient setting, when documented at the time of discharge. Thank you, Padmini Duran [facility], CDIS Extension: [phone] Please use your independent medical judgment in providing your response. THIS QUERY IS PART OF THE PERMANENT MEDICAL RECORD Provider Response: Other Other Diagnosis: Chronic diastolic CHF
[2021-03-28] MEDS: predniSONE 20 MG TABLET PO (12:26)
--- NOTE | 2021-03-28 14:54 | MHC.CM.PN ---
pt has asked to go to [facility], a ref. was made and facility is willing to take him back. pt is leaving at 330 pm [facility]. md and rn are aware of this dc plan. cm to cont. to follow.
--- NOTE | 2021-03-28 16:12 | PC.NURSE ---
Pt A&Ox3, [facility] at bedside, report given, pt to facility at this time.
== END 2021-03-28 15:58 | disposition home health service (06) | DRG 309 ==
LOC: HO.ED 23:20 → HO.EDOVER 03-26 01:31
PROVIDERS: Physician Assistant; Admitting Provider Internal Medicine; Emergency Provider Emergency Medicine; Visit Provider Internal Medicine
DX: I48.20 Chronic atrial fibrillation, unspecified (principal); N39.0 Urinary tract infection, site not specified; I50.32 Chronic diastolic (congestive) heart failure; E78.5 Hyperlipidemia, unspecified; E83.39 Other disorders of phosphorus metabolism; Z86.711 Personal history of pulmonary embolism; Z91.14 Patient's other noncompliance with medication regimen; M54.30 Sciatica, unspecified side; R29.6 Repeated falls; Z91.81 History of falling; Z98.84 Bariatric surgery status; Z20.822 Contact with and (suspected) exposure to COVID-19; Z79.01 Long term (current) use of anticoagulants; Z79.899 Other long term (current) drug therapy
CPT/HCPCS: 36415; 70450; 71275; 80048; 80053; 81001; 82077; 83735; 83880; 84100; 84484; 85025; 87635; 93005; 96361; 96365; 96366; 96375; 96376; 97161; 99285; J1170; Q9967

== ENCOUNTER 2022-01-18 12:35 | Emergency (ER) | payer MEDICARE, MEDICAID, SELFPAY ==
--- NOTE | 2022-01-18 12:44 | ECG_ITS ---
Test Reason : heart problems Blood Pressure : / mmHG Vent. Rate : 121 BPM Atrial Rate : 000 BPM P-R Int : 000 ms QRS Dur : 148 ms QT Int : 316 ms P-R-T Axes : 000 -23 012 degrees QTc Int : 448 ms Atrial fibrillation with rapid ventricular response Right bundle branch block Abnormal ECG When compared with ECG of 25-MAR-2021 17:16, No significant change was found Referred By: Doris Snowden Electronically Signed By:JACKELYN BARON MD
--- NOTE | 2022-01-18 12:48 | ED.AMS ---
HPI - Altered Mental Status General Chief Complaint: General Medical Stated Complaint: AMS,RT LEG PAIN,ETOH Time Seen by Provider: 01/18/22 12:44 Source: patient Mode of arrival: EMS History of Present Illness HPI narrative: 61-year-old male with history of atrial fibrillation alcohol dependence is brought in by EMS when he was kicked out of his sniff at 01:30 this morning for having non prescribed medications hidden in his cane, however patient reports that he did not have any medications hidden. Patient denies any shortness of breath, chest pain/palpitations, fever, chills, GI or symptoms. Patient states that he and a friend were ?messing around? and drink a couple of beers as well as taking ?a couple of Ambien?. Patient does report that his right lower extremity is red and swollen. Related Data Home Medications Medication Instructions Recorded Confirmed melatonin 3 mg capsule 3 mg PO BEDTIME PRN Sleep 03/20/21 03/25/21 acamprosate 333 mg tablet,delayed 2 tab PO TID 03/26/21 03/26/21 release nystatin 100,000 unit/mL oral 500,000 unit PO QID 03/26/21 03/26/21 suspension ondansetron 4 mg disintegrating 4 mg PO Q8H PRN Nausea And Vomiting 03/26/21 03/26/21 tablet vilazodone 20 mg tablet 20 mg PO DAILY 03/26/21 03/26/21 Previous Rx's Medication Instructions Recorded apixaban 5 mg tablet (Eliquis) 5 mg PO BID 90 days #180 tabs 05/25/20 aripiprazole 5 mg tablet (Abilify) 5 mg PO DAILY 90 days #90 tabs 05/25/20 atorvastatin 40 mg tablet 40 mg PO BEDTIME 90 days #90 tabs 05/25/20 venlafaxine 150 mg 150 mg PO DAILY 90 days #90 caps 05/25/20 capsule,extended release 24 hr (Effexor XR) loperamide 2 mg capsule (Imodium 2 mg PO Q6H PRN diarrhea #30 caps 02/17/21 A-D) cyclobenzaprine 10 mg tablet 10 mg PO TID PRN back pain #30 tabs 03/12/21 diltiazem HCl 180 mg 360 mg PO DAILY #30 caps 03/12/21 capsule,extended release 24 hr (Cardizem CD) metoprolol tartrate 100 mg tablet 100 mg PO BID #60 tabs 03/12/21 acetaminophen 325 mg tablet 650 mg PO Q6H PRN Pain, Mild (Pain 03/27/21 Scale 1-3) #30 tabs docusate sodium 100 mg capsule 100 mg PO DAILY PRN constipation 03/27/21 (Colace) #30 caps lidocaine 4 % topical patch 1 patch transdermal DAILY #10 ea 03/27/21 (Lidocaine Pain Relief) omeprazole 20 mg capsule,delayed 20 mg PO DAILY #30 caps 03/27/21 release oxycodone 5 mg tablet 5 mg PO Q6H PRN Pain, Mild (Pain 03/27/21 Scale 1-3) #5 tabs prednisone 20 mg tablet 20 mg PO DAILY #5 tabs 03/27/21 sennosides 8.6 mg tablet (Senna 17.2 mg PO BEDTIME #30 tabs 03/27/21 Lax) prednisone 20 mg tablet 20 mg PO DAILY #3 tabs 03/28/21 Allergies Allergy/AdvReac Type Severity Reaction Status Date / Time No Known Allergies Allergy Verified 12/15/20 05:52 Review of Systems Review of Systems: Pertinent positives and negatives as stated in HPI 10 point review of systems is otherwise negative. [facility] Past Medical History Source: nursing notes reviewed Medical History ARIAN (acute kidney injury) Alcohol dependence Alcohol intoxication Alcohol withdrawal Alcohol withdrawal delirium Anemia Atrial fibrillation with RVR Atrial fibrillation with RVR Atrial fibrillation with RVR Chest pain Chronic atrial fibrillation Depression Dyslipidemia Heart failure with left ventricular ejection fraction greater than or equal to 50 percent History of alcohol abuse Incarcerated incisional hernia Insomnia Metabolic acidosis with increased anion gap and accumulation of organic acids Morbid obesity Obesity Oral thrush Pulmonary embolism Sciatica Thoracic aortic aneurysm Toenail deformity Surgical History History of incisional hernia repair History of inguinal hernia repair Hx of gastric bypass S/P cholecystectomy Family History Family History Mother No problems noted. Father No problems noted. Family/Other Substance use disorder Social History Social History Household Members: None Household Members Other:: lives with mother Housing: Apartment Do you presently have visiting nurse or other home services: Yes Unable to assess alcohol history related to: Unable to respond Alcohol intake: current Alcohol intake frequency: other Alcohol type: beer and wine Patient Tobacco Use Status: Never used Tobacco e-Cigarette/Vaping Use: Never Used Second Hand Smoke Exposure: No service: No Current occupational status: retired Physical Exam ED Vital Signs: Vital Signs - 24 hr 01/18/22 12:55 Temperature 98.4 F Pulse Rate 100 Respiratory Rate 18 Blood Pressure 102/69 Pulse Oximetry 97 Oxygen Delivery Method Room Air BMI result Body Mass Index 39.5 VITAL SIGNS: Reviewed. GENERAL: Well developed, well nourished, in no acute distress. HEAD: Normocephalic/atraumatic EYES: PERRLA, EOMI EARS: Ext canals without abnormality OROPHARYNX: no oral lesions noted, posterior pharynx clear LUNGS: Normal breath sounds. No adventitious sounds or accessory muscle use. SpO2<97> CARDIOVASCULAR: Regular rate and rhythm without noted murmurs, no JVD or lower extremity edema. ABDOMEN: Soft, non-tender, non-distended with bowel sounds. MUSCULOSKELETAL: No tenderness, deformities, or effusions noted on gross inspection. EXTREMITIES: No cyanosis, clubbing or edema; RIGHT LOWER EXTREMITY: Erythematous and swollen and warm to touch. SKIN: Inspection of the skin reveals no rashes, ulcerations, jaundice, pallor, or petechiae. NEUROLOGIC: Alert and oriented x 4. Strength and sensation to light touch were grossly intact x 4, patient noted to have a steady gait. Course Course Course Narrative: 61-year-old male with history and clinical presentation suggestive of possible lower extremity cellulitis, however he does not appear to be altered. He is not febrile nor is he tachycardic or tachypneic. Patient is requesting to leave and multiple attempts were made to encourage him to stay for complete evaluation but then he is noted to have eloped. Discharge Plan Discharge Clinical Impression: Leg pain, right, Alcohol use disorder, mild, abuse, Polysubstance use disorder Patient Disposition: Elopement Prescriptions: No Action loperamide [Imodium A-D] 2 mg capsule 2 mg PO Q6H PRN (Reason: diarrhea) Qty: 30 0RF cyclobenzaprine 10 mg Tablet 10 mg PO TID PRN (Reason: back pain) Qty: 30 0RF diltiazem HCl [Cardizem CD] 180 mg Capsule,Extended Release 24hr 360 mg PO DAILY Qty: 30 0RF Protocol: Hold for SBP/HR < HOLD for SBP < : 90 HOLD for HR < : 60 metoprolol tartrate 100 mg Tablet 100 mg PO BID Qty: 60 0RF Protocol: Hold for SBP/HR < HOLD for SBP < : 90 HOLD for HR < : 60 nystatin 100,000 unit/mL Suspension 500,000 unit PO QID ondansetron 4 mg Tablet,Disintegrating 4 mg PO Q8H PRN (Reason: Nausea And Vomiting) acamprosate 333 mg tablet,delayed release (DR/EC) 2 tab PO TID vilazodone 20 mg Tablet 20 mg PO DAILY omeprazole 20 mg capsule,delayed release(DR/EC) 20 mg PO DAILY Qty: 30 0RF sennosides [Senna Lax] 8.6 mg Tablet 17.2 mg PO BEDTIME Qty: 30 0RF lidocaine [Lidocaine Pain Relief] 4 % Adhesive Patch,Medicated 1 patch transdermal DAILY Qty: 10 0RF Protocol: Apply to: Apply to: back docusate sodium [Colace] 100 mg capsule 100 mg PO DAILY PRN (Reason: constipation) Qty: 30 0RF prednisone 20 mg tablet 20 mg PO DAILY Qty: 5 0RF acetaminophen 325 mg Tablet 650 mg PO Q6H PRN (Reason: Pain, Mild (Pain Scale 1-3)) Qty: 30 0RF oxycodone 5 mg Tablet 5 mg PO Q6H PRN (Reason: Pain, Mild (Pain Scale 1-3)) Qty: 5 0RF prednisone 20 mg tablet 20 mg PO DAILY Qty: 3 0RF Eliquis 5 mg tablet 5 mg PO BID 90 Days Qty: 180 3RF aripiprazole [Abilify] 5 mg tablet 5 mg PO DAILY 90 Days Qty: 90 1RF atorvastatin 40 mg tablet 40 mg PO BEDTIME 90 Days Qty: 90 3RF venlafaxine [Effexor XR] 150 mg capsule,extended release 24hr 150 mg PO DAILY 90 Days Qty: 90 3RF melatonin 3 mg capsule 3 mg PO BEDTIME PRN (Reason: Sleep)
[2022-01-18 12:55] VITALS: BP 102/69; BP 142/92; PULSE 100; PULSE 115; RESP 18; TEMP 36.9; O2SAT 96; O2SAT 97; BMI 39.5
--- NOTE | 2022-01-18 13:22 | PC.NURSE ---
Pt ambulated to bathroom using cane with a steady gait.
--- OUTSIDE RECORDS SUMMARY | 2022-01-18 13:56 | XMS_ITS | Encounter Summary ---
:1960 Author Care Team Providers Name Role Phone Bambi Kim MD Primary Care Provider [phone] Jose Daria OTHER [phone] [facility] OTHER [phone] Reason for Visit Acute Rounding Visit RLE edema, hyponantremia Assessment and Plan 1. Edema of lower extremity Chronically asymmetric with R >L Back to baseline No pulm sx Continue current diuretic regimen f/u prn 2. Drug-induced hyponatremia Resolved Cr up a tad Follow divalents and renal function Discussion Note: None recorded.Patient educational handouts: No information available. Plan of Care Reminders Provider Appointments None recorded. ? ? Lab None recorded. ? ? Referral None recorded. ? ? Procedures None recorded. ? ? Surgeries None recorded. ? ? Imaging None recorded. ? ? Medications No Medications Reported Notes: meds reviewed; see MAR for deta ils Medications Administered None recorded. Vitals Height Blood Pressure 5 ft 9 in 118/74 mm[Hg] Results Lab Results None recorded. Allergies Code Code System Name Reaction Severity Onset NKDA ? ? ? Problems Name Status Onset Date Source ? Candidiasis of Mouth Active 03/13/2021 ? Dyslipidemia Active 03/13/2021 ? Anemia Active 03/13/2021 ? Major Depressive Disorder Active 03/13/2021 ? Alcohol Dependence Active 03/13/2021 ? Pulmonary Embolism Active 03/13/2021 ? Persistent Atrial Fibrillation Active 03/13/2021 ? Chronic Diastolic Heart Failure Active 03/13/2021 ? Alcoholic Hepatitis Active 03/13/2021 ? Chronic Sciatica Active 03/13/2021 ? Insomnia Co-occurrent and Due to Medical Condition Active 03/13/2021 ? Anxiety Active 03/29/2021 ? Hypertensive Disorder Active 03/29/2021 ? Aneurysm of Thoracic Aorta Active 03/29/2021 ? Gastroesophageal Reflux Disease Active 03/29/2021 ? Constipation Active 03/29/2021 ? SARS-CoV-2 Active 04/27/2021 ? Procedures None recorded. Vaccine List Vaccine Type COVID-19, mRNA, LNP-S, PF, 30 mcg/0.3 mL dose ([employer]) 07/21/2020 08/18/2020 08/10/2021 pneumococcal, unspecified formulation 02/23/2018 Notes: Immunizations reconciled as of 08/11/21 Refused seasonal influenza PCV20 ordered Social History Tobacco Smoking Status Never Smoker What is your level of alcohol Moderate consumption? Has tobacco cessation counseling N Notes: N/A been provided? How many times per week do you 5-7 times per week consume alcohol? 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 not invoked What was the date of your most 05/02/2021 recent tobacco screening? Do you have an advanced directive? N Legal Guardian? N Do you have an out of hospital DNR? N Do you or have you ever used any N other forms of tobacco or nicotine? Have you ever been counseled for Y unhealthy alcohol use? How many years have you consumed 30 alcohol? Do you use any illicit or N recreational drugs? How many days in the past year have 300 you consumed 5 or more drinks? Family History Relation Problem Onset Age of Age Notes Father Coronary arteriosclerosis (No Information) N/A (No Notes) Mother Coronary arteriosclerosis (No Information) N/A (No Notes) Functional Status Unknown. Past Encounters 12/19/2021 Edema of Lower Extremity; Drug-induced H yponatremia YESSICA TorresC: [address] [place], [place] [address] [address], Ph. 12/08/2021 Chronic Diastolic Heart Failure; Persist ent Atrial Fibrillation; Dyslipidemia; Mixed Anxiety and Depressive Disorder; Hypertensive Disorder; Gastroesophageal Reflux Disease; Chronic Pain; Alcohol Dependence Phyllis Harper MD: [address] [place], [place] [address] [address], Ph. 12/05/2021 Edema of Lower Extremity; Drug-induced H yponatremia; Always Hungry; Drug-induced Hypokalemia; Persistent Atrial Fibrillation YESSICA TorresC: [address] [place], [place] [address] [address], Ph. 11/24/2021 Malaise Iesha Reece PA-C: [address] [place] [address], [place] [address], Ph. 11/23/2021 Malaise; Edema of Lower Extremity; Drug- induced Hyponatremia; Drug-induced Hypokalemia; Acute Nontraumatic Kidney Injury Iesha Reece PA-C: [address] [place] [address], [place] [address], Ph. History of Present Illness Note: <div>Pt seen for acute rounding visit today for RLE edema and hyponatremia.</div><div>
</div><div>Pt being followed for the above. See previous notes for details.</div><div>
</div><div>Leg feels good but bruising where previous blister was. Upset that he might have to start contributing financially to his stay at .</div><div>
</div>Review of Systems: ROS as noted in the HPI Review of Systems None recorded. Physical Exam ? Notes: <div>Sitting on edge of bed in NAD</div><div>Breathing non-labored</div><div>Lungs diminished, clear</div><div>Heart irreg irreg without M</div><div>Ext w ith 1+ RLE edema and no LLE edema</div><div>
</div><d iv>Recent diagnostics:</div><div>12/19:</div><div>lytes, BUN/Cr, glu: 135/4.6/96/26, 27/1.7, 122</div><div>Ca 9.5 </div>
--- OUTSIDE RECORDS SUMMARY | 2022-01-18 13:56 | XMS_ITS | Encounter Summary ---
:1960 Author Care Team Providers Name Role Phone Bambi Kim MD Primary Care Provider [phone] Jose Daria OTHER [phone] [facility] OTHER [phone] Reason for Visit Acute Rounding Visit general malaise Assessment and Plan 1. Malaise non-specific labs ok U/A neg Follow clinically 2. Edema of lower extremity Chronically asymmetric with R >L Back to baseline No evidence of cellulitis 3. Drug-induced hyponatremia Continues to improve with increased K Monitor and f/u prn 4. Drug-induced hypokalemia Still therapeutic but trending up May need to adjust dosing Follow divalents 5. Acute nontraumatic kidney injury Lasix held then decreased U/A neg Remains on metolazone and spironolactone BUN slightly improved but Cr slightly up Follow labs Discussion Note: None recorded.Patient educational handouts: No [...] Height Blood Pressure 5 ft 9 in 132/64 mm[Hg] Results Lab Results None recorded. Allergies [...] mRNA, LNP-S, PF, 30 mcg/0.3 mL dose ([employer]) 07/21/2020 08/18/2020 08/10/2021 pneumococcal, unspecified formulation 02/23/2018 [...] of Y Notes: valid copy on chart, city attorney? not invoked What was the date of [...] (No Notes) Functional Status Unknown. Past Encounters 11/23/2021 Malaise; Edema of Lower Extremity; Drug- induced Hyponatremia; Drug-induced Hypokalemia; Acute Nontraumatic Kidney Injury Iesha Reece PA-C: [address] [place], [place] [address] [address], Ph. 11/17/2021 Edema of Lower Extremity; Drug-induced H yponatremia; Acute Nontraumatic Kidney Injury Iesha Reece PA-C: [address] [place] [address], [place] [address], Ph. 11/09/2021 Drug-induced Hyponatremia; Edema of Lowe r Extremity; Drug-induced Hypokalemia Iesha ReeceIRAM-C: [address], [place] [address], Ph. 11/02/2021 Edema of Lower Extremity; Drug-induced H yponatremia Iesha Grover IRAM Reece-C: [address], [place] [address], Ph. 10/27/2021 Serous Bulla of Skin Iesha ReeceIRAM-C: [address], [place] [address], Ph. 10/26/2021 Edema of Lower Extremity; Drug-induced H yponatremia Iesha ReeceIRAM-C: [address], [place] [address], Ph. 10/23/2021 Edema of Lower Extremity; Drug-induced H yponatremia; Serous Bulla of Skin Iesha ReeceIRAM-C: [address], [place] [address], Ph. History of Present Illness Note: <div>Pt seen for acute rounding visit today for general malaise.</div><div>
</div><div>Approached patient because he didn't look to be at his baseline. Says he has not been feeling well. No specific concerns. No pain, dyspnea, f/c/s. Staff says he's been off today. No recent ANDIE or visitors. No recent significant med changes.Is being followed for RLE edema, hypokalemia, and hyponatremia.</div><div>
</div><div>U/A ordered 2 days ago for completeness due to ARIAN.</div><div>
</div><div>PMHx reviewed</div><div>
</div><div>Meds reviewed</div>Review of Systems: ROS as noted in the HPI Review of Systems None recorded. Physical Exam ? Notes: <div>Standing in abdi; defin itely does not look ok</div><div>Speech slow but not dysarthric</div><div>Ski n pasty, warm, moist</div><div>HEENT face symmetric; PERRLA; EOMI with out nystagmus; pink and moist mucous membranes</div><div>Lungs di minished, clear (baseline)</div><div>Heart irreg irreg without M</div><div>Ab d obese, soft, NT, ND with normoactive BS</div><div>Ext with 1+ RLE edema and no LLE edema</div><div>Unsteady gait - holding on to yu, doors</ div><div>Sliver Chopper strong = bilaterally</div><div>Muscle strength 5/5 throughout</div><div>
</d iv><div>Recent diagnostics:</div><div>11/23:</div><div>lytes, BUN/Cr, glu: 129/86/4.7/29, 43/1.6, 95</div><div>Ca 9.7< /div><div>
</div><div>11/21/21: U/A neg</div><div>
</div><div >11/16/21: </div><div>lytes, BUN/Cr, glu: 128/3.6/84/27, 53/1.5, 86 </ div><div>Ca 9.2 </div><div>
</div><div>: </div><div>lytes, BUN/Cr, glu: 128/3.9/85/28, 34/1.4, 60 </ div><div>Ca 9.5 </div><div>
</div><div >10/20/21: </div><div>lytes, BUN/Cr, glu: 124/3.6/82/30, 25/1.2, 84 </ div><div>Ca 8.9 </div><div>SOSM 265 </div><div>UOSM 182 </div><d iv>UCr 20 </div><div>Dov 47 </div><div>
</div><div>: </div><div>lytes, BUN/Cr, glu: 125/3.8/84/26, 29/1.2, 92 </ div><div>Ca 9.3 </div><div>
</div><div>: </div><div>lytes, BUN/Cr, glu: 124/3.3/82/30, 35/1.3, 124 < /div><div>SOsm 268 (289-308) </div><div>UOsm 292, UCr 55, Dov 27 </div><div><b r></div><div>10/11/21: </div><div>lytes, BUN/Cr,glu: 125/3.4/82/29, 3 8/1.3, 88 </div><div>Ca 9.2, Mg 2.2</div>
--- OUTSIDE RECORDS SUMMARY | 2022-01-18 13:56 | XMS_ITS | Encounter Summary ---
:1960 Author Care Team Providers Name Role Phone Bambi Kim MD Primary Care Provider [phone] Jose Daria OTHER [phone] [facility] OTHER [phone] Reason for Visit Acute Rounding Visit ED f/u Assessment and Plan 1. Contusion of face diagnostics non-acute educated pt that ecchymosis will likely spread caudally given Eliquis exam otherwise benign f/u prn 2. Fall on same level from slipping, tr ipping or stumbling Post-fall neuro and nursing assessments per facility protocol PT/OT prn Discussion Note: None recorded.Patient educational handouts: No information available. Plan of Care Reminders Provider Appointments None recorded. ? ? Lab None recorded. ? ? Referral None recorded. ? ? Procedures None recorded. ? ? Surgeries None recorded. ? ? Imaging None recorded. ? ? Medications No Medications Reported Notes: meds reviewed; see MAR for deta ils Medications Administered None recorded. Vitals Height Weight BMI Blood Pressure 5 ft 9 in 291.3 lbs 43 kg/m2 122/68 mm[Hg] Results Lab Results None recorded. Allergies [...] mRNA, LNP-S, PF, 30 mcg/0.3 mL dose ([employer]) 07/21/2020 08/18/2020 08/10/2021 pneumococcal, unspecified formulation 02/23/2018 [...] of Y Notes: valid copy on chart, insurance attorney? not invoked What was the date [...] (No Notes) Functional Status Unknown. Past Encounters 12/25/2021 Contusion of Face; Fall on Same Level fr om Slipping, Tripping or Stumbling Iesha Reece PA-C: [address] [place], [place] [address] [address], Ph. 12/19/2021 Edema of Lower Extremity; Drug-induced H yponatremia Iesha Reece PA-C: [address] [place], [place] [address] [address], Ph. 12/08/2021 Chronic Diastolic Heart Failure; Persist ent Atrial Fibrillation; Dyslipidemia; Mixed Anxiety and Depressive Disorder; Hypertensive Disorder; Gastroesophageal Reflux Disease; Chronic Pain; Alcohol Dependence Phyllis Harper MD: [address] [place], [place] [address] [address], Ph. 12/05/2021 Edema of Lower Extremity; Drug-induced H yponatremia; Always Hungry; Drug-induced Hypokalemia; Persistent Atrial Fibrillation Iesha Reece PA-C: [address] [place], [place] [address], [place], [place] [address], Ph. 11/24/2021 Malaise Iesha Reece PA-C: [address] [place] [address], [place] [address], Ph. History of Present Illness Note: <div>Pt seen today for acute rounding visit for ED f/u.</div><div>
</d iv><div>Pt sent to [facility] ED overnight for eval of fall. Says his roommate woke him up for assistance and he got his feet caught in the privacy curtain and fell, striking his R head/face on the floor. No LOC. Because of being on anticoagulation and associated risk of intracranial bleed, he was sent for eval. Work-up was negative and he returned to for ongoing care.</div><div><b r></div><div>No head, neck, or back pain. No focal neuro complaints.</div><di v>
</div><div>PMHx reviewed</div><div>
</div><div>Meds reviewed</div> Review of Systems: ROS as noted in the HPI Review of Systems None recorded. Physical Exam ? Notes: <div>Weights:</div><div> 8: 291.3 lbs</div><div>12/07: 295.4 lbs</div><div>11/06: 305.6 l bs</div><div>
</div><div>Standing in doorway in NAD; appears comfortable</di v><div>HEENT ecchymosis R forehead and nose without tenderness, crepitus , or deformity; no evidence of bleeding from nares; face symmetric</div&g t;<div>Neck supple without posterior cervical tenderness or deformity</div ><div>Back neg</div><div>Mri Technician strong = bilaterally</div><div>
</ div><div>
</div><div>Recent diagnostics:</div><div>12/25 @ [facility] ED:</div><div>Brain CT- NAD: chronic small vessel ischemic change s</div><div>CT c-spine NAD; multilevel DDD</div><div>CT face NAD</d iv><div>EKG: sinus at 65; QTc 449</div><div>POC 95, 95</div>
--- OUTSIDE RECORDS SUMMARY | 2022-01-18 13:56 | XMS_ITS | Encounter Summary ---
:1960 Author Care Team Providers Name Role Phone Bambi Kim MD Primary Care Provider [phone] Jose Daria OTHER [phone] [facility] OTHER [phone] Reason for Visit Acute Rounding Visit RLE edema, hyponatremia Assessment and Plan 1. Drug-induced hyponatremia Improved with increased K Monitor and f/u prn 2. Edema of lower extremity Chronically asymmetric with R >L Improved and essentially back to baselin e No evidence of cellulitis 3. Drug-induced hypokalemia Therapeutic and tolerated recent increa se in supplement Follow divalents Discussion Note: None recorded.Patient educational handouts: No [...] BMI Blood Pressure 5 ft 9 in 305.6 lbs 45.1 kg/m2 132/64 mm[Hg] Results Lab Results None recorded. [...] mRNA, LNP-S, PF, 30 mcg/0.3 mL dose ([employer]) 07/21/2020 08/18/2020 08/10/2021 pneumococcal, unspecified formulation 02/23/2018 [...] of Y Notes: valid copy on chart, patent prosecution attorney? not invoked What was the date [...] (No Notes) Functional Status Unknown. Past Encounters 11/09/2021 Drug-induced Hyponatremia; Edema of Lowe r Extremity; Drug-induced Hypokalemia Iesha Reece PA-C: [address] [place] [address], [place] [address], Ph. 11/02/2021 Edema of Lower Extremity; Drug-induced H yponatremia Iesha Reece PA-C: [address] [place] [address], [place] [address], Ph. 10/27/2021 Serous Bulla of Skin Iesha Reece PA-C: [address] [place], [place] [address], [place] [address], Ph. 10/26/2021 Edema of Lower Extremity; Drug-induced H yponatremia Iesha Reilly YESSICA ReeceC: [address], [place] [address], Ph. 10/23/2021 Edema of Lower Extremity; Drug-induced H yponatremia; Serous Bulla of Skin YESSICA TorresC: [address], [place] [address], Ph. 10/20/2021 Edema of Lower Extremity; Drug-induced H yponatremia YESSICA TorresC: [address], [place] [address], Ph. 10/17/2021 Drug-induced Hyponatremia YESSICA TorresC: [address], [place] [address], Ph. 10/13/2021 Chronic Hyponatremia; Edema of Lower Ext remity YESSICA TorresC: [address], [place] [address], Ph. 10/11/2021 Drug-induced Hyponatremia; Chronic Diast olic Heart Failure; Persistent Atrial Fibrillation; Edema of Lower Extremity; Obstructive Sleep Apnea Syndrome; Venous Stasis Ulcer with Edema of Right Lower Leg YESSICA TorresC: [address], [place] [address], Ph. History of Present Illness Note: <div>Pt seen today for acute rounding visit for hyponatremia and RLE edema.</div><div>
</div><div>Pt being followed for the above.See prior notes for details. Leg better. Old blistered area better. Upset that double portions were eliminated as an option without RD order.</div><div>
</div><div>PMHx reviewed</div><div>
</div><div>Meds reviewed</div>Review of Systems: ROS as noted in the HPI Review of Systems None recorded. Physical Exam ? Notes: <div>Sitting on edge of bed in NAD; breathing non-labored</div><div>Lungs diminished, clear</div><div> Heart irreg irreg without M</div><div>Abd soft, NT, ND with normoactive BS</ div><div>Ext: RLE with 1+ edema; distal dressing clean, dry, and intact; visi ble skin without erythema, increased warmth, or tenderness; LLE with trace e ike</div><div>
</div><div>Recent diagnostics:</div><div>11/08:</div><div>lytes, BUN/Cr, glu: 128/3.9/85/28, 34/1.4, 60</d iv><div>Ca 9.5</div><div>
</div>< div>10/20/21: </div><div>lytes, BUN/Cr, glu: 124/3.6/82/30, 25/1.2, 84 </ div><div>Ca 8.9 </div><div>SOSM 265 </div><div>UOSM 182 </div><d iv>UCr 20 </div><div>Dov 47 </div><div>
</div><div>: </div><div>lytes, BUN/Cr, glu: 125/3.8/84/26, 29/1.2, 92 </ div><div>Ca 9.3 </div><div>
</div><div>: </div><div>lytes, BUN/Cr, glu: 124/3.3/82/30, 35/1.3, 124 < /div><div>SOsm 268 (289-308) </div><div>UOsm 292, UCr 55, Dov 27 </div><div><b r></div><div>10/11/21: </div><div>lytes, BUN/Cr, glu: 125/3.4/82/29, 38/1.3, 88 </div><div>Ca 9.2, Mg 2.2 </div><div>
</div><div>: </div><div>lytes, BUN/Cr, glu: 126/3.4/83/23, 34/1.2, 95 </ div><div>Ca 9.3 </div><div>
</div><div>: </div><div>lytes, BUN/Cr,glu: 127/3.6/82/31, 36/1.6,122 </ div><div>Ca 9.4 </div><div>
</div><div >09/26/21: </div><div>lytes, BUN/Cr glu: 128/3.4/82/34, 35/1.6, 101 < /div><div>Ca 9.7 </div><div>
</div><div>: </div><div>lytes, BUN/Cr, glu: 129/3.6/85/27, 37/1.3, 102 < /div><div>Ca 9.5 </div><div>Metolazone 2.5 mg po increased to q M-W-F from q T/Sa </div><div>
</div><div>09/07/21: </div><div>lytes, BUN/Cr, gl u: 135/4/93/31, 22/1.3, 98 </div><div>Ca 9.2</div>
--- OUTSIDE RECORDS SUMMARY | 2022-01-18 13:56 | XMS_ITS | Encounter Summary ---
:1960 Author Care Team Providers Name Role Phone Bambi Kim MD Primary Care Provider [phone] Jose Daria OTHER [phone] [facility] OTHER [phone] Reason for Visit Acute Rounding Visit f/u RLE edema Assessment and Plan 1. Edema of lower extremity Chronically asymmetric with R >L Improved and essentially back to baselin e No evidence of cellulitis 2. Drug-induced hyponatremia Clarify status of previously ordered la bs Discussion Note: None recorded.Patient educational handouts: No [...] Height Blood Pressure 5 ft 9 in 126/70 mm[Hg] Results Lab Results None recorded. Allergies [...] mRNA, LNP-S, PF, 30 mcg/0.3 mL dose ([employer]) 07/21/2020 08/18/2020 08/10/2021 pneumococcal, unspecified formulation 02/23/2018 [...] of Y Notes: valid copy on chart, wellness program manager? not invoked What was the date of [...] (No Notes) Functional Status Unknown. Past Encounters 11/02/2021 Edema of Lower Extremity; Drug-induced H yponatremia Iesha Reece PA-C: [address] [place] [address], [place] [address], Ph. 10/27/2021 Serous Bulla of Skin Iesha Reece PA-C: [address] [place] [address], [place] [address], Ph. 10/26/2021 Edema of Lower Extremity; Drug-induced H yponatremia Iesha Reece PA-C: [address] [place] [address], [facility] [place] [address], Ph. 10/23/2021 Edema of Lower Extremity; Drug-induced H yponatremia; Serous Bulla of Skin Iesha Reece PA-C: [address] [place] [address], [facility] [place] [address], Ph. 10/20/2021 Edema of Lower Extremity; Drug-induced H yponatremia YESSICA TorresC: [address], [place] [address], Ph. 10/17/2021 Drug-induced Hyponatremia YESSICA TorresC: [address], [place] [address], Ph. 10/13/2021 Chronic Hyponatremia; Edema of Lower Ext remity YESSICA TorresC: [address], [place] [address], Ph. 10/11/2021 Drug-induced Hyponatremia; Chronic Diast olic Heart Failure; Persistent Atrial Fibrillation; Edema of Lower Extremity; Obstructive Sleep Apnea Syndrome; Venous Stasis Ulcer with Edema of Right Lower Leg YESSICA TorresC: [address], [place] [address], Ph. 10/03/2021 Drug-induced Hyponatremia YESSICA TorresC: [address], [place] [address], Ph. History of Present Illness Note: <div>Pt seen for acute rounding visit today for f/u RLE edema.</div><div>
</div><div>Pt being followed for the above. See prior notes for details. Seen last weekfor edema with bulla. Edema at that time had improved with increased Lasix. Blister burst spontaneously last week. Followed by wound TREATING MACHINE OPERATOR. No evidence of infection when seen last week. Says leg feels bett er. Does not think the area is infected and looks better. Swelling better. No INFANTE. KCl recently increased to help raise serum Na. Folllw-up labs ordered but not yet drawn.</div><div>
</div><div>PMHx reviewed</div><div>
</div><div>Meds reviewed</div>Review of Systems: ROS as noted in the HPI Review of Systems None recorded. Physical Exam ? Notes: <div>Sitting on edge of bed in NAD</div><div>Breathing non-labored</div><div>RLE wi th 1+ edema; distal bandage clean, dry, intact; surrounding skin without inc reased erythema, warmth, or tenderness.</div><div>
</ div><div>No recent diagnostics</div>
--- OUTSIDE RECORDS SUMMARY | 2022-01-18 13:56 | XMS_ITS | Encounter Summary ---
:1960 Author Care Team Providers Name Role Phone Bambi Kim MD Primary Care Provider [phone] Jose Daria OTHER [phone] [facility] OTHER [phone] Reason for Visit Acute Rounding Visit RLE edema, hunger Assessment and Plan 1. 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 Drug-induced hyponatremia near-normal with increased K Follow divalents Monitor and f/u prn 3. Always hungry RD consult 4. Drug-induced hypokalemia Therapeutic Prior Mg ok Follow labs 5. Persistent atrial fibrillation Overall rate-controlled Remains on full anticoagulation with Reina nathan Monitor and f/u prn Discussion Note BMP in 2 weeks -- 12/19/21 Patient educational handouts: No information available. Plan of [...] Height Blood Pressure 5 ft 9 in 122/74 mm[Hg] Results Lab Results None recorded. Allergies [...] mRNA, LNP-S, PF, 30 mcg/0.3 mL dose ([employer]) 07/21/2020 08/18/2020 08/10/2021 pneumococcal, unspecified formulation 02/23/2018 [...] of Y Notes: valid copy on chart, body and frame technician? not invoked What was the date of [...] (No Notes) Functional Status Unknown. Past Encounters 12/05/2021 Edema of Lower Extremity; Drug-induced H yponatremia; Always Hungry; Drug-induced Hypokalemia; Persistent Atrial Fibrillation Iehsa Reece PA-C: [address] [place] [address], Ph. 11/24/2021 Malaise Iesha Reece PA-C: [address] [place], [place] [address] [address], Ph. 11/23/2021 Malaise; Edema of Lower Extremity; Drug- induced Hyponatremia; Drug-induced Hypokalemia; Acute Nontraumatic Kidney Injury Iesha Reece PA-C: [address], [place] [address], Ph. 11/17/2021 Edema of Lower Extremity; Drug-induced H yponatremia; Acute Nontraumatic Kidney Injury Iesha Reece PA-C: [address] [place] [address], [place] [address], Ph. 11/09/2021 Drug-induced Hyponatremia; Edema of Lowe r Extremity; Drug-induced Hypokalemia Iesha Reece PA-C: [address] [place] [address], [place] [address], Ph. History of Present Illness Note: <div>Pt seen for acute rounding visit today for RLE edema and hunger.</div><div>
</div><div>Pt being followed for RLE edema. See prior note for details. Divalents being carefully monitored due to hyponatremia and hypokalemia secondary to diuretics. Had bullae from edema RLE, which have since ruptured. Wound KNIT GOODS MENDER follows him for this. Concerned that RLE dressing &a mp;quot;wet. No RLE pain. Swelling overall down and breathing without issues. Upset that double portions were d/c'd. Continues to feel hungry despite meals and snacks.</div><div>
</div><div>PMHx reviewed</div><div>
</div><div>Meds reviewed</div>Review of Systems: ROS as noted in the HPI Review of Systems None recorded. Physical Exam ? Notes: <div>Sitting on edge of bed in NAD; breathing non-labored</div><div>Lungs diminished, clear</div><div> Heart irreg irreg without M</div><div>Abd obese, soft, NT, ND with normoactiv e BS</div><div>RLE dressing saturated distally without evidence of bleeding ; 1+ RLE edema; no LLE edema; RLE dressing not removed since seen this am b y wound KNIT GOODS MENDER.</div><div>
</div><div>Recent diagnostics:</div><div>12/05 @ 0800: (unclear why drawn twice today)</div><div>lytes, BUN/ Cr, glu: 134/4.1/90/29, 34/1.5, 85</div><div>Ca 9.9</div><div>
</div><div >12/05/21 @ 0541:</div><div>lytes, BUN/Cr, glu: 133/4.2/90/28, 34/1.4, 83</d iv><div>Ca 9.6, Mg 2</div><div>
</div><div>< br></div><div>11/23/21: </div><div>lytes, BUN/Cr, glu: 129/86/4.7/29, 43/1.6, 95 </div><div>Ca 9.7 </div><div>
</div><div>: U/A neg </div><div>
</div><div>: </div><div>lytes, BUN/Cr, glu: 128/3.6/84/27, 53/1.5, 86 </ div><div>Ca 9.2 </div><div>
</div><div>: </div><div>lytes, BUN/Cr, glu: 128/3.9/85/28, 34/1.4, 60 </ div><div>Ca 9.5 </div><div>
</div><div>: </div><div>lytes, BUN/Cr, glu: 124/3.6/82/30, 25/1.2, 84 </ div><div>Ca 8.9 </div><div>SOSM 265 </div><div>UOSM 182 </div><d iv>UCr 20 </div><div>Dov 47 </div><div>
</div><div >10/17/21: </div><div>lytes, BUN/Cr, glu: 125/3.8/84/26, 29/1.2, 92 </ div><div>Ca 9.3 </div><div>
</div><div>: </div><div>lytes, BUN/Cr, glu: 124/3.3/82/30, 35/1.3, 124 < /div><div>SOs 268 ([id number]) </div><div>UOsm 292, UCr 55, Dov 27 </div><div><b r></div><div>10/11/21: </div><div>lytes, BUN/Cr,glu: 125/3.4/82/29, 3 8/1.3, 88 </div><div>Ca 9.2, Mg 2.2</div>
--- OUTSIDE RECORDS SUMMARY | 2022-01-18 13:56 | XMS_ITS | Encounter Summary ---
:1960 Author Care Team Providers Name Role Phone Bambi Kim MD Primary Care Provider [phone] Jose Daria OTHER [phone] [facility] OTHER [phone] Reason for Visit Acute Rounding Visit RLE cellulitis Assessment and Plan 1. Cellulitis of right lower limb Already on Augmentin -benefits of abx outweigh risks of non-t reatment in this patient Follow clinically Discussion Note: None recorded.Patient educational handouts: No [...] Height Blood Pressure 5 ft 9 in 122/68 mm[Hg] Results Lab Results None recorded. [...] mRNA, LNP-S, PF, 30 mcg/0.3 mL dose ([employer]) 07/21/2020 08/18/2020 08/10/2021 pneumococcal, unspecified formulation 02/23/2018 [...] of Y Notes: valid copy on chart, research attorney? not invoked What was the date [...] (No Notes) Functional Status Unknown. Past Encounters 12/28/2021 Cellulitis of Right Lower Limb Iesha Reece PA-C: [address] [place] [address] [facility] [place] [place] [address], Ph. 12/27/2021 Painful Mouth Iesha Reece PA-C: [address] [place] [address] [place] [address], Ph. 12/25/2021 Contusion of Face; Fall on Same Level fr om Slipping, Tripping or Stumbling Iesha Reece PA-C: [address] [place] [address] [facility] [place] [place] [address], Ph. 12/19/2021 Edema of Lower Extremity; Drug-induced H yponatremia Iesha Reece PA-C: [address] [place] [address] [facility] [place] [place] [address], Ph. 12/08/2021 Chronic Diastolic Heart Failure; Persist ent Atrial Fibrillation; Dyslipidemia; Mixed Anxiety and Depressive Disorder; Hypertensive Disorder; Gastroesophageal Reflux Disease; Chronic Pain; Alcohol Dependence Phyllis Harper MD: [address] [place] [address], [place] [address], Ph. 12/05/2021 Edema of Lower Extremity; Drug-induced H yponatremia; Always Hungry; Drug-induced Hypokalemia; Persistent Atrial Fibrillation Iesha Reece PA-C: [address] [place] [address], [place] [address], Ph. History of Present Illness Note: <div>Pt seen today for acute rounding visit for RLE cellulitis.</div><div>
</div><div>Asked to see pt for the above. Was seen this am by wound MAIL CARRIER for RLE open area from site of prior bulla. Concerned that leg cellulitic. Happens to be on Augmentin post dental ext ractions.</div><div>
</div><div>No significant RLE pain. No f/c/s.&l t;/div><div>
</div><div>PMHx reviewed</div><div>
</div><div>Meds reviewed</div>Review of Systems: ROS as noted in the HPI Review of Systems None recorded. Physical Exam ? Notes: <div>In bed in NAD; breathin g non-labored</div><div>RLE with 1+ edema; shiny erythema without increased w armth or tenderness</div>
--- OUTSIDE RECORDS SUMMARY | 2022-01-18 13:56 | XMS_ITS ---
:1960 Author Care Team Providers Name Role Phone MATTHEW MARTINES MD Primary Care Provider [phone] JASWANT PAYNE OTHER [phone] [facility] ([facility] OTHER [phone] Allergies Code Code System Name Reaction Severity Status Onset NKDA ? Medications No Medications Reported Notes: meds reviewed; see MAR for deta ils Problems Name Status Onset Date Source ? [...] SARS-CoV-2 Active 04/27/2021 ? Procedures None recorded. Results Lab Results None recorded. Past Encounters 01/16/2022 Iesha Reece PA-C: [address], [place] [address], Ph. 01/08/2022 Iesha Reece PA-C: [address], [place] [address], Ph. 12/28/2021 Cellulitis of Right Lower Limb Iesha Reece PA-C: [address], [place] [address], Ph. 12/27/2021 Painful Mouth Iesha Reece PA-C: [address] [place] [address], [place] [address], Ph. 12/25/2021 Contusion of Face; Fall on Same Level fr om Slipping, Tripping or Stumbling Iesha Reece PA-C: [address] [place], [place] [address], [place] [address], Ph. 12/19/2021 Edema of Lower Extremity; Drug-induced H yponatremia Iesha Reece PA-C: [address] [place] [address], [place] [address], Ph. 12/08/2021 Chronic Diastolic Heart Failure; Persist ent Atrial Fibrillation; Dyslipidemia; Mixed Anxiety and Depressive Disorder; Hypertensive Disorder; Gastroesophageal Reflux Disease; Chronic Pain; Alcohol Dependence Phyllis Harper MD: [address] [place] [address], [place] [address], Ph. 12/05/2021 Edema of Lower Extremity; Drug-induced H yponatremia; Always Hungry; Drug-induced Hypokalemia; Persistent Atrial Fibrillation Iesha Reece PA-C: [address] [place] [address], [place] [address], Ph. 11/24/2021 Malaise Iesha Reece PA-C: [address] [place] [address], [place] [address], Ph. 11/23/2021 Malaise; Edema of Lower Extremity; Drug- induced Hyponatremia; Drug-induced Hypokalemia; Acute Nontraumatic Kidney Injury Iesha Reece PA-C: [address] [place] [address], [place] [address], Ph. 11/17/2021 Edema of Lower Extremity; Drug-induced H yponatremia; Acute Nontraumatic Kidney Injury Iesha Reece PA-C: [address] [place] [address], [place] [address], Ph. 11/09/2021 Drug-induced Hyponatremia; Edema of Lowe r Extremity; Drug-induced Hypokalemia Iesha H Reece, PA-C: [address], [place] [address], Ph. 11/02/2021 Edema of Lower Extremity; Drug-induced H yponatremia Iesha Grover IRAM Reece-C: [address], [place] [address], Ph. 10/27/2021 Serous Bulla of Skin Iesha Grover Chevy PA-C: [address], [place] [address], Ph. 10/26/2021 Edema of Lower Extremity; Drug-induced H yponatremia Iesha Reece PA-C: [address], [place] [address], Ph. 10/23/2021 Edema of Lower Extremity; Drug-induced H yponatremia; Serous Bulla of Skin Iesha H IRAM Reece-C: [address], [place] [address], Ph. 10/20/2021 Edema of Lower Extremity; Drug-induced H yponatremia Iesha Grover IRAM Reece-C: [address], [place] [address], Ph. 10/17/2021 Drug-induced Hyponatremia Iesha Grover IRAM Reece-C: [address], [place] [address], Ph. 10/13/2021 Chronic Hyponatremia; Edema of Lower Ext remity Iesha Reilly IRAM Reece-C: [address], [place] [address], Ph. 10/11/2021 Drug-induced Hyponatremia; Chronic Diast olic Heart Failure; Persistent Atrial Fibrillation; Edema of Lower Extremity; Obstructive Sleep Apnea Syndrome; Venous Stasis Ulcer with Edema of Right Lower Leg Iesha Reilly IRAM Reece-C: [address], [place] [address], Ph. 10/03/2021 Drug-induced Hyponatremia Iesha Relily IRAM Reece-C: [address], [place] [address], Ph. 09/27/2021 Drug-induced Hyponatremia Iesha Reece PA-C: [address], [place] [address], Ph. 09/26/2021 Edema of Lower Extremity; Drug-induced H yponatremia; Drug-induced Hypokalemia; Azotemia Iesha Reece PA-C: [address], [place] [address], Ph. 09/19/2021 Edema of Lower Extremity; Chronic Diasto lic Heart Failure; Persistent Atrial Fibrillation; Orthopnea; Obstructive Sleep Apnea Syndrome Iesha Reece PA-C: [address], [place] [address], Ph. 09/07/2021 Edema of Lower Extremity; Drug-induced H ypokalemia Iesha Reece PA-C: [address], [place] [address], Ph. 09/06/2021 Edema of Lower Extremity; Persistent Atr ial Fibrillation Iesha Reece PA-C: [address], [place] [address], Ph. 09/01/2021 Edema of Lower Extremity; Drug-induced H ypokalemia Iesha Reece PA-C: [address], [place] [address], Ph. 08/30/2021 Edema of Lower Extremity Iesha Reece PA-C: [address], [place] [address], Ph. 08/29/2021 Edema of Lower Extremity; Drug-induced H ypokalemia; Persistent Atrial Fibrillation Iesha Reece PA-C: [address], [place] [address], Ph. 08/24/2021 Edema of Lower Extremity; Drug-induced H ypokalemia; Chronic Diastolic Heart Failure; Persistent Atrial Fibrillation Iesha Reece PA-C: [address], [place] [address], Ph. 08/22/2021 Edema of Lower Extremity; Drug-induced H ypokalemia Iesha Reece PA-C: [address], [place] [address], Ph. 08/21/2021 Edema of Lower Extremity; Insomnia Co-oc current and Due to Medical Condition; Fall on Same Level from Slipping, Tripping or Stumbling Iesha Reece PA-C: [address], [place] [address], Ph. 08/18/2021 Chronic Diastolic Heart Failure; Chronic Sciatica; Persistent Atrial Fibrillation; Alcohol Dependence; Mixed Anxiety and Depressive Disorder; Hyperlipidemia; Peripheral Edema Phyllis Harper MD: [address], [place] [address], Ph. 08/17/2021 Edema of Lower Extremity; Chronic Diasto lic Heart Failure; Persistent Atrial Fibrillation Iesha Reece PA-C: [address], [place] [address], Ph. 08/14/2021 Edema of Lower Extremity; Pain in Right Lower Limb; Longstanding Persistent Atrial Fibrillation Iesha Reece PA-C: [address], [place] [address], Ph. 08/11/2021 Edema of Lower Extremity Iesha Reece PA-C: [address], [place] [address], Ph. 08/09/2021 Chronic Diastolic Heart Failure; Edema o f Lower Extremity; Persistent Atrial Fibrillation Iesha Reece PA-C: [address], [place] [address], Ph. 08/07/2021 Chronic Diastolic Heart Failure; Edema o f Lower Extremity; Persistent Atrial Fibrillation Iesha Reece PA-C: [address], [place] [address], Ph. 08/04/2021 Chronic Diastolic Heart Failure; Persist ent Atrial Fibrillation Iesha Reece PA-C: [address], [place] [address], Ph. 08/03/2021 Acute on Chronic Diastolic Heart Failure ; Pain in Right Lower Limb; Persistent Atrial Fibrillation YESSICA TorresC: [address], [place] [address], Ph. 08/02/2021 Edema of Lower Extremity; Acute on Chron ic Diastolic Heart Failure YESSICA TorresC: [address], [place] [address], Ph. 08/01/2021 Edema of Lower Extremity; Acute on Chron ic Diastolic Heart Failure YESSICA TorresC: [address], [place] [address], Ph. 07/31/2021 Weight Gain; Edema of Lower Extremity; C hronic Diastolic Heart Failure; Orthopnea; Persistent Atrial Fibrillation; Drug-induced Hypokalemia YESSICA TorresC: [address], [place] [address], Ph. 07/28/2021 Weight Gain; Obstructive Sleep Apnea Syn drome; Drug-induced Hypokalemia; Persistent Atrial Fibrillation YESSICA TorresC: [address], [place] [address], Ph. 07/27/2021 Weight Gain; Drug-induced Hypokalemia YESSICA TorresC: [address], [place] [address], Ph. 07/26/2021 Chronic Diastolic Heart Failure; Chronic Sciatica; Alcohol Dependence; Persistent Atrial Fibrillation; Gastroesophageal Reflux Disease; Hypertensive Disorder; Mixed Anxiety and Depressive Disorder; Peripheral Edema Phyllis Harper MD: [address], [place] [address], Ph. 07/25/2021 Dyspnea; Edema of Lower Extremity Iesha Reece PA-C: [address], [place] [address], Ph. 07/24/2021 Chronic Diastolic Heart Failure; Drug-in duced Hypokalemia; Longstanding Persistent Atrial Fibrillation; Obstructive Sleep Apnea Syndrome Iesha Reece PA-C: [address], [place] [address], Ph. 07/21/2021 Obstructive Sleep Apnea Syndrome; Edema of Lower Extremity; Chronic Diastolic Heart Failure; Drug-induced Hypokalemia Iesha Reece PA-C: [address], [place] [address], Ph. 07/20/2021 Obstructive Sleep Apnea Syndrome Iesha Reece PA-C: [address], [place] [address], Ph. 07/19/2021 Drug-induced Hypokalemia; Acute on Chron ic Diastolic Heart Failure; Orthopnea; Persistent Atrial Fibrillation; Hyponatremia Iesha Reece PA-C: [address], [place] [address], Ph. 07/17/2021 Edema of Lower Extremity; Acute on Chron ic Diastolic Heart Failure; Drug-induced Hypokalemia; Persistent Atrial Fibrillation; Chronic Pain Syndrome Iesha Reece PA-C: [address], [place] [address], Ph. 07/13/2021 Acute on Chronic Diastolic Heart Failure ; Edema of Lower Extremity; Drug-induced Hypokalemia; Persistent Atrial Fibrillation Iesha Reece PA-C: [address], [place] [address], Ph. 07/10/2021 Persistent Atrial Fibrillation Iesha Reece PA-C: [address], [place] [address], Ph. 07/07/2021 Acute on Chronic Diastolic Heart Failure Iesha Reece PA-C: [address], [place] [address], Ph. 07/06/2021 Weight Gain; Drug-induced Hypokalemia Iesha Reece PA-C: [address], [place] [address], Ph. 07/04/2021 Acute on Chronic Diastolic Heart Failure ; Drug-induced Hypokalemia; Persistent Atrial Fibrillation; Dyspnea Iesha Reece PA-C: [address], [place] [address], Ph. 07/03/2021 Chronic Diastolic Heart Failure; Drug-in duced Hypokalemia; Pain in Right Foot Gayle NorrisDANIELLAP: [address], [place] [address], Ph. 06/27/2021 Chronic Diastolic Heart Failure; Drug-in duced Hypokalemia; Tachycardia; Dyspnea Iesha Reece PA-C: [address], [place] [address], Ph. 06/23/2021 Chronic Diastolic Heart Failure Iesha Reece PA-C: [address], [place] [address], Ph. 06/22/2021 Acute on Chronic Diastolic Heart Failure ; Persistent Atrial Fibrillation; Edema of Lower Extremity; Chronic Anemia; Chronic Cough Iesha Reece PA-C: [address], [place] [address], Ph. 06/16/2021 Acute on Chronic Diastolic Heart Failure ; Persistent Atrial Fibrillation Iesha Reece PA-C: [address], [place] [address], Ph. 06/13/2021 Acute on Chronic Diastolic Heart Failure Iesha Reece PA-C: [address], [place] [address], Ph. 06/12/2021 Acute on Chronic Diastolic Heart Failure ; Persistent Atrial Fibrillation Iesha Reece PA-C: [address], [place] [address], Ph. 06/08/2021 Acute on Chronic Diastolic Heart Failure Iesha Reece PA-C: [address], [place] [address], Ph. 06/06/2021 Acute on Chronic Diastolic Heart Failure ; Edema of Lower Extremity Iesha Reece PA-C: [address], [place] [address], Ph. 06/05/2021 Edema of Lower Extremity; Acute on Chron ic Diastolic Heart Failure; Benign Prostatic Hyperplasia without Outflow Obstruction; Insomnia Co-occurrent and Due to Medical Condition Iesha Reece PA-C: [facility] [address], [place] [address], Ph. 05/31/2021 Acute on Chronic Diastolic Heart Failure Iesha Reece PA-C: [address], [place] [place] [address], Ph. 05/30/2021 Acute on Chronic Diastolic Heart Failure Iesha Reece PA-C: [facility] [address], [place] [address], Ph. 05/29/2021 Acute on Chronic Diastolic Heart Failure ; Anemia; Persistent Atrial Fibrillation; Edema of Lower Extremity Iesha Reece PA-C: [address] [place] [address], [place] [address], Ph. 05/26/2021 Chronic Diastolic Heart Failure; Alcohol Dependence; Chronic Sciatica; Dyslipidemia; Hypertensive Disorder; Persistent Atrial Fibrillation; Primary Insomnia; Benign Prostatic Hyperplasia without Outflow Obstruction; Peripheral Edema Phyllis Harper MD: [address] [place] [address], Ph. 05/24/2021 Edema of Lower Extremity; Increased Freq uency of Urination DANIELLA ConradP: [address] [place] [address], Ph. 05/17/2021 Edema of Lower Extremity; Increased Freq uency of Urination; SARS-CoV-2 AMA Conrad: [address] [place] [address], Ph. 05/15/2021 Edema of Lower Extremity AMA Conrad: [address] [place] [address], Ph. 05/01/2021 Weight Loss; Covid-19; Persistent Atrial Fibrillation Iesha Reece PA-C: [facility] [address], [place] [address], Ph. 04/28/2021 Covid-19; Anemia Iesha Reece PA-C: [address] [place] [address], [place] [address], Ph. 04/27/2021 SARS-CoV-2 Tori Batistazak [facility]: [address] [place] [address], [place] [address], Ph. 04/26/2021 Edema Tori Mayaforeign Tidwell [facility]: [address] [place] [address], [place] [address], Ph. 04/21/2021 Chronic Low Back Pain; Recurrent Falls Iesha Reece PA-C: [address] [place] [address], [place] [address], Ph. 04/06/2021 Altered Mental Status Iesha Reece PA-C: [address] [place] [address], [place] [address], Ph. 04/04/2021 Chronic Sciatica; Insomnia Co-occurrent and Due to Medical Condition; Weight Loss; Persistent Atrial Fibrillation; Chronic Diastolic Heart Failure Iesha Reece PA-C: [address] [place] [address], [place] [address], Ph. 03/31/2021 Alcohol Dependence; Chronic Sciatica; Dy slipidemia; Gastroesophageal Reflux Disease; Hypertensive Disorder; Persistent Atrial Fibrillation; Mixed Anxiety and Depressive Disorder; Chronic Diastolic Heart Failure Phyllis Harper MD: [address] [place] [address], [place] [address], Ph. 03/29/2021 Persistent Atrial Fibrillation; Hyperten sive Disorder; Dyslipidemia; Chronic Diastolic Heart Failure; Pulmonary Embolism; Anemia; Major Depressive Disorder; Anxiety; Aneurysm of Thoracic Aorta; Alcohol Dependence; Chronic Sciatica; Gastroesop hageal Reflux Disease; Constipation; Dry Skin Tori Ca Tidwell [facility]: [address] [place] [address], [place] [address], Ph. 03/22/2021 Persistent Atrial Fibrillation; Chronic Sciatica; Chronic Diastolic Heart Failure Iesha Reece PA-C: [address] [place] [address], Ph. 03/20/2021 Insomnia Co-occurrent and Due to Medical Condition; Alcoholic Hepatitis; Chronic Sciatica; Persistent Atrial Fibrillation; Pulmonary Embolism; Chronic Diastolic Heart Failure; Anemia; Alcohol Dependence ; Dyslipidemia; Major Depressive Disorde r; Irreducible Incisional Hernia DANIELLA ConradP: [address] [place] [address], Ph. 03/16/2021 Persistent Atrial Fibrillation; Alcoholi c Hepatitis; Asthenia; Chronic Sciatica; Insomnia; Pulmonary Embolism; Chronic Diastolic Heart Failure; Anemia; Alcohol Dependence; Dyslipidemia; Major Depressive Disorder; Irreducible Incisional Hernia ; Altered Mental Status Allegra Peterson MD: [address] [place] [address], Ph. 03/14/2021 Insomnia Co-occurrent and Due to Medical Condition; Alcoholic Hepatitis; Chronic Sciatica YESSICA TorresC: [address] [place] [address], Ph. 03/13/2021 Persistent Atrial Fibrillation; Pulmonar y Embolism; Chronic Sciatica; Chronic Diastolic Heart Failure; Candidiasis of Mouth; Anemia; Alcoholic Hepatitis; Alcohol Dependence; Dyslipidemia; Insomnia Co-oc current and Due to Medical Condition; Ma josé Depressive Disorder; Irreducible Incisional Hernia; Altered Mental Status Iesha Reece PA-C: [address] [place] [phone], Ph. Social History Tobacco Smoking Status Never Smoker Vaccine List Vaccine Type COVID-19, mRNA, LNP-S, PF, 30 mcg/0.3 mL dose (Contour) 07/21/2020 08/18/2020 08/10/2021 pneumococcal, unspecified formulation 02/23/2018 Notes: Immunizations reconciled as of 08/11/21 Refused seasonal influenza PCV20 ordered Plan of Care Reminders Provider Appointments None recorded. ? ? Lab None recorded. ? ? Referral None recorded. ? ? Procedures None recorded. ? ? Surgeries None recorded. ? ? Imaging None recorded. ? ? Vitals 12/28/2021 04:06PM Acute Rounding Visit Height Blood Pressure 5 ft 9 in 122/68 mm[Hg] 12/27/2021 11:01AM Acute Rounding Visit Height Blood Pressure 5 ft 9 in 122/68 mm[Hg] 12/25/2021 03:38PM Acute Rounding Visit Height Weight BMI Blood Pressure 5 ft 9 in 291.3 lbs 43 kg/m2 122/68 mm[Hg] 12/19/2021 04:37PM Acute Rounding Visit Height Blood Pressure 5 ft 9 in 118/74 mm[Hg] 12/08/2021 08:32AM Routine Rounding Visit Height Blood Pressure 5 ft 9 in 122/74 mm[Hg] 12/05/2021 10:43AM Acute Rounding Visit Height Blood Pressure 5 ft 9 in 122/74 mm[Hg] 11/24/2021 04:14PM Acute Rounding Visit Height Blood Pressure 5 ft 9 in 157/105 mm[Hg] 11/23/2021 02:59PM Acute Rounding Visit Height Blood Pressure 5 ft 9 in 132/64 mm[Hg] 11/17/2021 01:16PM Acute Rounding Visit Height Blood Pressure 5 ft 9 in 132/64 mm[Hg] 11/09/2021 05:55PM Acute Rounding Visit Height Weight BMI Blood Pressure 5 ft 9 in 305.6 lbs 45.1 kg/m2 132/64 mm[Hg] 11/02/2021 04:34PM Acute Rounding Visit Height Blood Pressure 5 ft 9 in 126/70 mm[Hg] 10/27/2021 02:11PM Acute Rounding Visit Height Blood Pressure 5 ft 9 in 126/70 mm[Hg] 10/26/2021 02:04PM Acute Rounding Visit Height Blood Pressure 5 ft 9 in 132/74 mm[Hg] 10/23/2021 04:53PM Acute Rounding Visit Height Blood Pressure 5 ft 9 in 132/74 mm[Hg] 10/20/2021 05:56PM Acute Rounding Visit Height Blood Pressure 5 ft 9 in 132/74 mm[Hg] 10/17/2021 01:43PM Acute Rounding Visit Height Blood Pressure 5 ft 9 in 122/70 mm[Hg] 10/13/2021 02:38PM Acute Rounding Visit Height Blood Pressure 5 ft 9 in 122/70 mm[Hg] 10/11/2021 11:22AM Routine Rounding Visit Height Weight BMI Blood Pressure 5 ft 9 in 306.9 lbs 45.3 kg/m2 130/68 mm[Hg] 10/03/2021 02:08PM Acute Rounding Visit Height Blood Pressure 5 ft 9 in 126/70 mm[Hg] 09/27/2021 08:11PM Acute Rounding Visit Height Blood Pressure 5 ft 9 in 126/74 mm[Hg] 09/26/2021 01:32PM Acute Rounding Visit Height Blood Pressure 5 ft 9 in 126/74 mm[Hg] 09/19/2021 02:02PM Acute Rounding Visit Height Blood Pressure 5 ft 9 in 118/70 mm[Hg] 09/07/2021 12:31PM Acute Rounding Visit Height Blood Pressure 5 ft 9 in 120/76 mm[Hg] 09/06/2021 08:11PM Acute Rounding Visit Height Weight BMI Blood Pressure 5 ft 9 in 315.6 lbs 46.6 kg/m2 120/76 mm[Hg] 09/01/2021 02:26PM Acute Rounding Visit Height Blood Pressure 5 ft 9 in 120/76 mm[Hg] 08/30/2021 06:48PM Acute Rounding Visit Height Blood Pressure 5 ft 9 in 132/70 mm[Hg] 08/29/2021 10:39AM Acute Rounding Visit Height Blood Pressure 5 ft 9 in 132/70 mm[Hg] 08/24/2021 11:24AM Acute Rounding Visit Height Blood Pressure 5 ft 9 in 126/68 mm[Hg] 08/22/2021 02:13PM Acute Rounding Visit Height Blood Pressure 5 ft 9 in 126/68 mm[Hg] 08/21/2021 10:16AM Acute Rounding Visit Height Blood Pressure 5 ft 9 in 126/68 mm[Hg] 08/18/2021 06:54AM Routine Rounding Visit Height Blood Pressure 5 ft 9 in 122/76 mm[Hg] 08/17/2021 04:18PM Acute Rounding Visit Height Blood Pressure 5 ft 9 in 122/76 mm[Hg] 08/14/2021 01:14PM Acute Rounding Visit Height Blood Pressure 5 ft 9 in 122/76 mm[Hg] 08/11/2021 09:35AM Acute Rounding Visit Height Blood Pressure 5 ft 9 in 121/80 mm[Hg] 08/09/2021 09:16AM Acute Rounding Visit Height Blood Pressure 5 ft 9 in 113/71 mm[Hg] 08/07/2021 09:58AM Acute Rounding Visit Height Weight BMI Blood Pressure 5 ft 9 in 326.2 lbs 48.2 kg/m2 113/71 mm[Hg] 08/04/2021 10:20AM Acute Rounding Visit Height Weight BMI Blood Pressure 5 ft 9 in 336.1 lbs 49.6 kg/m2 113/71 mm[Hg] 08/03/2021 02:56PM Acute Rounding Visit Height Weight BMI Blood Pressure 5 ft 9 in 340.1 lbs 50.2 kg/m2 140/92 mm[Hg] 08/02/2021 09:34AM Acute Rounding Visit Height Weight BMI Blood Pressure 5 ft 9 in 339.2 lbs 50.1 kg/m2 140/92 mm[Hg] 08/01/2021 11:05AM Acute Rounding Visit Height Weight BMI Blood Pressure 5 ft 9 in 331.4 lbs 48.9 kg/m2 118/76 mm[Hg] 07/31/2021 11:56AM Acute Rounding Visit Height Weight BMI Blood Pressure 5 ft 9 in 331.2 lbs 48.9 kg/m2 125/77 mm[Hg] 07/28/2021 01:25PM Acute Rounding Visit Height Weight BMI Blood Pressure 5 ft 9 in 336.2 lbs 49.6 kg/m2 125/77 mm[Hg] 07/27/2021 10:48AM Acute Rounding Visit Height Weight BMI Blood Pressure 5 ft 9 in 334.8 lbs 49.4 kg/m2 118/65 mm[Hg] 07/26/2021 07:17AM Acute Rounding Visit Height Blood Pressure 5 ft 9 in 103/70 mm[Hg] 07/25/2021 02:51PM Acute Rounding Visit Height Weight BMI Blood Pressure 5 ft 9 in 324.1 lbs 47.9 kg/m2 103/70 mm[Hg] 07/24/2021 10:44AM Acute Rounding Visit Height Weight BMI Blood Pressure 5 ft 9 in 324.1 lbs 47.9 kg/m2 103/70 mm[Hg] 07/21/2021 01:25PM Acute Rounding Visit Height Weight BMI Blood Pressure 5 ft 9 in 323.4 lbs 47.8 kg/m2 149/86 mm[Hg] 07/20/2021 02:52PM Acute Rounding Visit Height Weight BMI Blood Pressure 5 ft 9 in 321.6 lbs 47.5 kg/m2 102/68 mm[Hg] 07/19/2021 10:40AM Acute Rounding Visit Height Weight BMI Blood Pressure 5 ft 9 in 322.6 lbs 47.6 kg/m2 102/68 mm[Hg] 07/17/2021 09:44AM Acute Rounding Visit Height Weight BMI Blood Pressure 5 ft 9 in 322.6 lbs 47.6 kg/m2 100/65 mm[Hg] 07/13/2021 01:45PM Acute Rounding Visit Height Weight BMI Blood Pressure 5 ft 9 in 321.8 lbs 47.5 kg/m2 120/71 mm[Hg] 07/10/2021 02:46PM Acute Rounding Visit Height Blood Pressure 5 ft 9 in 121/68 mm[Hg] 07/07/2021 03:09PM Acute Rounding Visit Height Weight BMI Blood Pressure 5 ft 9 in 323.2 lbs 47.7 kg/m2 120/80 mm[Hg] 07/06/2021 11:14AM Acute Rounding Visit Height Weight BMI Blood Pressure 5 ft 9 in 322.2 lbs 47.6 kg/m2 115/72 mm[Hg] 07/04/2021 09:52AM Acute Rounding Visit Height Weight BMI Blood Pressure 5 ft 9 in 311 lbs 45.9 kg/m2 118/47 mm[Hg] 07/03/2021 11:32AM Acute Rounding Visit Height Blood Pressure 5 ft 9 in 118/47 mm[Hg] 06/27/2021 10:27AM Acute Rounding Visit Height Blood Pressure 5 ft 9 in 116/75 mm[Hg] 06/23/2021 03:53PM Acute Rounding Visit Height Weight BMI Blood Pressure 5 ft 9 in 317.4 lbs 46.9 kg/m2 115/76 mm[Hg] 06/22/2021 10:16AM Routine Rounding Visit Height Blood Pressure 5 ft 9 in 136/74 mm[Hg] 06/16/2021 12:09PM Acute Rounding Visit Height Blood Pressure 5 ft 9 in 166/86 mm[Hg] 06/13/2021 09:57AM Acute Rounding Visit Height Weight BMI Blood Pressure 5 ft 9 in 323.6 lbs 47.8 kg/m2 166/86 mm[Hg] 06/12/2021 12:39PM Acute Rounding Visit Height Weight BMI Blood Pressure 5 ft 9 in 323.6 lbs 47.8 kg/m2 166/86 mm[Hg] 06/08/2021 11:23AM Acute Rounding Visit Height Weight BMI Blood Pressure 5 ft 9 in 323.6 lbs 47.8 kg/m2 154/88 mm[Hg] 06/06/2021 04:13PM Acute Rounding Visit Height Weight BMI Blood Pressure 5 ft 9 in 325 lbs 48 kg/m2 154/88 mm[Hg] 06/05/2021 02:42PM Acute Rounding Visit Height Weight BMI Blood Pressure 5 ft 9 in 325 lbs 48 kg/m2 164/84 mm[Hg] 05/31/2021 03:37PM Acute Rounding Visit Height Blood Pressure 5 ft 9 in 138/96 mm[Hg] 05/30/2021 05:03PM Acute Rounding Visit Height Blood Pressure 5 ft 9 in 128/74 mm[Hg] 05/29/2021 09:25AM Acute Rounding Visit Height Weight BMI Blood Pressure 5 ft 9 in 318 lbs 47 kg/m2 128/74 mm[Hg] 05/26/2021 08:45AM Routine Rounding Visit Height Blood Pressure 5 ft 9 in 128/74 mm[Hg] 05/24/2021 09:04AM Acute Rounding Visit Height Blood Pressure 5 ft 9 in 128/74 mm[Hg] 05/17/2021 10:25AM Acute Rounding Visit Height Blood Pressure 5 ft 9 in 128/74 mm[Hg] 05/15/2021 08:47AM Acute Rounding Visit Height Blood Pressure 5 ft 9 in 128/74 mm[Hg] 05/01/2021 02:50PM Routine Rounding Visit Height Weight BMI Blood Pressure 5 ft 9 in 299.8 lbs 44.3 kg/m2 105/75 mm[Hg] 04/28/2021 05:39PM Acute Rounding Visit Height Blood Pressure 5 ft 9 in 105/75 mm[Hg] 04/27/2021 11:11AM Acute Rounding Visit Height Blood Pressure 5 ft 9 in 131/50 mm[Hg] 04/26/2021 01:40PM Acute Rounding Visit Height Blood Pressure 5 ft 9 in 105/75 mm[Hg] 04/21/2021 12:01PM Acute Rounding Visit Height Weight BMI Blood Pressure 5 ft 9 in 299.8 lbs 44.3 kg/m2 105/75 mm[Hg] 04/06/2021 05:38PM Acute Rounding Visit Height Blood Pressure 5 ft 9 in 105/75 mm[Hg] 04/04/2021 02:26PM Acute Rounding Visit Height Weight BMI Blood Pressure 5 ft 9 in 298 lbs 44 kg/m2 105/75 mm[Hg] 03/31/2021 07:03AM Admitting H&P Height Blood Pressure 5 ft 9 in 105/75 mm[Hg] 03/29/2021 09:45AM Initial Intake Note Height Blood Pressure 5 ft 9 in 151/85 mm[Hg] 03/22/2021 10:34AM Discharge Summary Height Weight BMI Blood Pressure 5 ft 9 in 308.4 lbs 45.5 kg/m2 151/85 mm[Hg] 03/20/2021 02:12PM Acute Rounding Visit Height Blood Pressure 5 ft 9 in 151/85 mm[Hg] 03/16/2021 03:03PM Admitting H&P Height Weight BMI Blood Pressure 5 ft 9 in 308.4 lbs 45.5 kg/m2 123/89 mm[Hg] 03/14/2021 04:14PM Acute Rounding Visit Blood Pressure 137/98 mm[Hg] 03/13/2021 09:50AM Initial Intake Note Blood Pressure 128/79 mm[Hg]
--- OUTSIDE RECORDS SUMMARY | 2022-01-18 13:56 | XMS_ITS | Encounter Summary ---
:1960 Author Care Team Providers Name Role Phone Bambi Kim MD Primary Care Provider [phone] Jose Daria OTHER [phone] [facility] ([facility] OTHER [phone] Reason for Visit Acute Rounding Visit RLE edema with blister Assessment and Plan 1. Edema of lower extremity Chronically asymmetric with R >L Worse on decreased Lasix -will give Lasix 40 mg po x 1 extra dose today then increase back to 60 mg po bid Follow clinically 2. Drug-induced hyponatremia Has BMP pend again this week Will increase KCl from 20 mEq po daily t o 40 mEq since has room based on prior serum K -increased KCl should also help improve hyponatremia although still may need fluid restriction 3. 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 Allergies [...] mRNA, LNP-S, PF, 30 mcg/0.3 mL dose ([employer]) 07/21/2020 08/18/2020 08/10/2021 pneumococcal, unspecified formulation 02/23/2018 [...] of Y Notes: valid copy on chart, commonwealth attorney? not invoked What was the date [...] (No Notes) Functional Status Unknown. Past Encounters 10/23/2021 Edema of Lower Extremity; Drug-induced H yponatremia; Serous Bulla of Skin Iesha Reece PA-C: [address] [place] [address], [facility] [place] [address], Ph. 10/20/2021 Edema of Lower Extremity; Drug-induced H yponatremia Iesha Reece PA-C: [address] [place], [place] [address] [address], Ph. 10/17/2021 Drug-induced Hyponatremia Iesha Reece PA-C: [address], [place] [address], Ph. 10/13/2021 Chronic Hyponatremia; Edema of Lower Ext remity Iesha Reece PA-C: [address], [place] [address], Ph. 10/11/2021 Drug-induced Hyponatremia; Chronic Diast olic Heart Failure; Persistent Atrial Fibrillation; Edema of Lower Extremity; Obstructive Sleep Apnea Syndrome; Venous Stasis Ulcer with Edema of Right Lower Leg Iesha Reece PA-C: [address], [place] [address], Ph. 10/03/2021 Drug-induced Hyponatremia Iesha Reece PA-C: [address], [place] [address], Ph. 09/27/2021 Drug-induced Hyponatremia Iesha Reece PA-C: [address] [place] [address], [place] [address], Ph. 09/26/2021 Edema of Lower Extremity; Drug-induced H yponatremia; Drug-induced Hypokalemia; Azotemia Iesha Reece PA-C: [address] [place], [place] [address], [place] [address], Ph. History of Present Illness Note: <div>Pt seen for acute rounding visit for edema.</div><div>
</div>& lt;div>Pt being followed for BLE, R>L. See prior notes for details.</div><div>& lt;br></div><div>RLE edema worse on reduced Lasix. Developed a very large blister on lower leg that has not popped. Breathing ok. No leg pain. No f/c/s. Had smaller blister RLE earlier this month.</div><div>
</div><div>PMHx reviewed</div><div>
</div><div>
</div><div>Meds reviewed</div>Review of Systems: ROS as noted in the HPI Review of Systems None recorded. Physical Exam ? Notes: <div>Inn bed in NAD; breathi ng non-labored</div><div>Lungs diminished, clear</div><div>Heart irreg irreg without M</div><div>Abd obese, soft, NT, ND with normoactive BS</div><di v>LLE with trace edema and chronic venous stasis changes</div><div>RLE with 2 + edema, chronic venous stasis changes, and a very large tense bulla mid-distal leg anteromedially and slightly adjacent to previous blister site. Surro unding skin dry but without increased erythema, warmth, or tenderness.</div> <div>
</div><div>Recent diagnostics:</div><div>10/20:</div><div>lytes, BUN/Cr, glu: 124/3.6/82/30, 25/1.2, 84 </div><div>Ca 8.9 </div><div>SOSM 265</div><div>UOSM 182</div><div>UCr 20</div><d iv>Dov 47</div><div>
</div><div>10/17/21: </div><div>lytes, BUN/Cr, gl u: 125/3.8/84/26, 29/1.2, 92 </div><div>Ca 9.3 </div><div>
</div><div>: </div><div>lytes, BUN/Cr, glu: 124/3.3/82/30, 35/1.3, 124 < /div><div>SOsm 268 (289-308) </div><div>UOsm 292, UCr 55, Dov 27 </div><d iv>
</div><div>10/11/21: </div><div>lytes, BUN/Cr, glu: 125/3.4/82/29, 38/1.3, 88 </div><div>Ca 9.2, Mg 2.2 </div><div>
</div><div>: </div><div>lytes, BUN/Cr, glu: 126/3.4/83/23, 34/1.2, 95 </ div><div>Ca 9.3 </div><div>
</div><div>: </div><div>lytes, BUN/Cr, glu: 127/3.6/82/31, 36/1.6,122 </ div><div>Ca 9.4 </div><div>
</div><div>: </div><div>lytes, BUN/Cr glu: 128/3.4/82/34, 35/1.6, 101 < /div><div>Ca 9.7 </div><div>
</div><div>: </div><div>lytes, BUN/Cr, glu: 129/3.6/85/27, 37/1.3, 102 < /div><div>Ca 9.5 </div><div>Metolazone 2.5 mg po increased to q M-W-F from q T/Sa </div><div>
</div><div>09/07/21: </div><div>lytes, BUN/Cr, gl u: 135/4/93/31, 22/1.3, 98 </div><div>Ca 9.2</div>
--- OUTSIDE RECORDS SUMMARY | 2022-01-18 13:56 | XMS_ITS | Encounter Summary ---
:1960 Author Care Team Providers Name Role Phone Bambi Kim MD Primary Care Provider [phone] Jose Daria OTHER [phone] [facility] ([facility]) OTHER [phone] Reason for Visit Acute Rounding Visit edema, hyponatremia Assessment and Plan 1. Edema of lower extremity tolerating decreased Lasix Monitor and f/u prn 2. Drug-induced hyponatremia Wasn't an issue until metolazone was in troduced, which is a thiazide diuretic Could increase spironolactone (max 200 m g/d) to manage edema and allow for d/c KCl and taper of metolazone Follow divalents Discussion Note: None recorded.Patient educational [...] mRNA, LNP-S, PF, 30 mcg/0.3 mL dose ([employer]) 07/21/2020 08/18/2020 08/10/2021 pneumococcal, unspecified formulation 02/23/2018 [...] of Y Notes: valid copy on chart, collections attorney? not invoked What was the date [...] (No Notes) Functional Status Unknown. Past Encounters 10/20/2021 Edema of Lower Extremity; Drug-induced H yponatremia Iesha Reece PA-C: [address] [place], [place] [address], [place] [address], Ph. 10/17/2021 Drug-induced Hyponatremia Iesha Reece PA-C: [address] [place] [address], [facility] [place] [address], Ph. 10/13/2021 Chronic Hyponatremia; Edema of Lower Ext remity Iesha Reece PA-C: [address] [place] [address], [facility] [place] [address], Ph. 10/11/2021 Drug-induced Hyponatremia; Chronic Diast olic Heart Failure; Persistent Atrial Fibrillation; Edema of Lower Extremity; Obstructive Sleep Apnea Syndrome; Venous Stasis Ulcer with Edema of Right Lower Leg Iesha Reilly CARLO Reece: [address], [place] [address], Ph. 10/03/2021 Drug-induced Hyponatremia Iesha Reilly YESSICA ReeceC: [address] [place], [place] [address], [place] [address], Ph. 09/27/2021 Drug-induced Hyponatremia Iesha Reilly YESSICA ReeceC: [address] [place], [place] [address], [place] [address], Ph. 09/26/2021 Edema of Lower Extremity; Drug-induced H yponatremia; Drug-induced Hypokalemia; Azotemia Iesha Reilly CARLO Reece: [address] [place] [address], [place] [address], Ph. History of Present Illness Note: <div>Pt seen for acute rounding visit for edema and hyponatremia.</div><div>
</div><div>Pt being followed for the above. See prior notes for details. Lasix decreased last week from 60 mg po bid to 40 mg po bid. Remains on Aldactone 75 mg po bid and metolazone 2.5 mg po q . No issues with breathing. Edema still under control.</div><div>
</div><div>PMHx reviewed</div><div>
</div><div>Meds reviewed</div>Review of Systems: ROS as noted in the HPI Review of Systems None recorded. Physical Exam ? Notes: <div>In bed in NAD; breathin g non-labored</div><div>Lungs diminished, clear</div><div>Heart irreg irreg without M</div><div>Ext: Trace RLE edema; no LLE edema; chronic venous st asis changes</div><div>
</div><div>Recent diagnostics:</div><div>10/20: </div><div>lytes, BUN/Cr, glu: 124/3.6/82/30, 25/1.2, 84</div><div>Ca 8.9< /div><div>SOSM 265</div><div>
</div><div >10/17/21: </div><div>lytes, BUN/Cr, glu: 125/3.8/84/26, 29/1.2, 92 </ div><div>Ca 9.3 </div><div>
</div><div>: </div><div>lytes, BUN/Cr, glu: 124/3.3/82/30, 35/1.3, 124 < /div><div>SOsm 268 (289-308) </div><div>UOsm 292, UCr 55, Dov 27 </div><div><b r></div><div>10/11/21: </div><div>lytes, BUN/Cr, glu: 125/3.4/82/29, 38/1.3, 88 </div><div>Ca 9.2, Mg 2.2 </div><div>
</div><div>: </div><div>lytes, BUN/Cr, glu: 126/3.4/83/23, 34/1.2, 95 </ div><div>Ca 9.3 </div><div>
</div><div>: </div><div>lytes, BUN/Cr, glu: 127/3.6/82/31, 36/1.6, 122 < /div><div>Ca 9.4 </div><div>
</div><div>: </div><div>lytes, BUN/Cr glu: 128/3.4/82/34, 35/1.6, 101 < /div><div>Ca 9.7 </div><div>
</div><div>: </div><div>lytes, BUN/Cr, glu: 129/3.6/85/27, 37/1.3, 102 < /div><div>Ca 9.5 </div><div>
</div><div >Metolazone 2.5 mg po increased to q M-W- from q T/</div><div>
</div><di v>09/07/21: </div><div>lytes, BUN/Cr, glu: 135/4/93/31, 22/1.3, 98 </di v><div>Ca 9.2</div>
--- OUTSIDE RECORDS SUMMARY | 2022-01-18 13:56 | XMS_ITS | Encounter Summary ---
:1960 Author Care Team Providers Name Role Phone Bambi Kim MD Primary Care Provider [phone] Jose Daria OTHER [phone] [facility] ([facility]) OTHER [phone] Reason for Visit Acute Rounding Visit RLE open area Assessment and Plan 1. 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 not invoked What was the date of [...] (No Notes) Functional Status Unknown. Past Encounters 10/27/2021 Serous Bulla of Skin Iesha Reece PA-C: [address] [place] [address], [place] [address], Ph. 10/26/2021 Edema of Lower Extremity; Drug-induced H yponatremia Iesha Reece PA-C: [address] [place] [address], [place] [address], Ph. 10/23/2021 Edema of Lower Extremity; Drug-induced H yponatremia; Serous Bulla of Skin Iesha Reece PA-C: [address] [place] [address], [place] [address], Ph. 10/20/2021 Edema of Lower Extremity; Drug-induced H yponatremia Iesha Reece PA-C: [address] [place] [address], [place] [address], Ph. 10/17/2021 Drug-induced Hyponatremia Iesha Reece PA-C: [address], [place] [address], Ph. 10/13/2021 Chronic Hyponatremia; Edema of Lower Ext remity Iesha Reece PA-C: [address], [place] [address], Ph. 10/11/2021 Drug-induced Hyponatremia; Chronic Diast olic Heart Failure; Persistent Atrial Fibrillation; Edema of Lower Extremity; Obstructive Sleep Apnea Syndrome; Venous Stasis Ulcer with Edema of Right Lower Leg Iesha Reece PA-C: [address], [place] [address], Ph. 10/03/2021 Drug-induced Hyponatremia Iesha Reece PA-C: [address], [place] [address], Ph. 09/27/2021 Drug-induced Hyponatremia Iesha Reece PA-C: [address], [place] [address], Ph. History of Present Illness Note: <div>Pt seen for acute rounding visit today for RLE open area.</div><div>
</div><div>Pt being followed for RLE edema. Recently developed bulla, which burst. Asked by nurse and patient to assess for possible infection. Denies pain, f/c/s. Thinks it justlooks bad but isn't really infected. </div><div>
</div><div>PMHx reviewed</div><div>
</div><div>Meds reviewed</div>Review of Systems: ROS as noted in the HPI Review of Systems None recorded. Physical Exam ? Notes: <div>In bed in NAD. See colo r pics in Amanda</div><div>RLE with superficial ulceration at site of recent blister with a significant amount of yellow slough. No significant surro unding erythema. No malodor. No increased warmth or tenderness. Slight serous drainage.</div>
--- OUTSIDE RECORDS SUMMARY | 2022-01-18 13:56 | XMS_ITS | Encounter Summary ---
:1960 Author Care Team Providers Name Role Phone Bambi Kim MD Primary Care Provider [phone] Jose Daria OTHER [phone] [facility] ([facility]) OTHER [phone] Reason for Visit Acute Rounding Visit f/u RLE edema Assessment and Plan 1. Edema of lower extremity Chronically asymmetric with R >L Improved with latter day of previous La six dose although was on 80 mg po bid at one point Follow clinically 2. Drug-induced hyponatremia Await labs Discussion Note: None recorded.Patient educational handouts: [...] mRNA, LNP-S, PF, 30 mcg/0.3 mL dose ([employer]) 07/21/2020 08/18/2020 08/10/2021 pneumococcal, unspecified formulation 02/23/2018 [...] of Y Notes: valid copy on chart, managing attorney? not invoked What was the date [...] (No Notes) Functional Status Unknown. Past Encounters 10/26/2021 Edema of Lower Extremity; Drug-induced H yponatremia Iesha Reece PA-C: [address] [place] [address], [place] [address], Ph. 10/23/2021 Edema of Lower Extremity; Drug-induced H yponatremia; Serous Bulla of Skin Iesha Reece PA-C: [address] [place] [address], [facility] [place] [address], Ph. 10/20/2021 Edema of Lower Extremity; Drug-induced H yponatremia Iesha Reece PA-C: [address] [place] [address], [facility] [place] [address], Ph. 10/17/2021 Drug-induced Hyponatremia Iesha Reece PA-C: [address] [place] [address], [place] [address], Ph. 10/13/2021 Chronic Hyponatremia; Edema of Lower Ext remity YESSICA TorresC: [address], [place] [address], Ph. 10/11/2021 Drug-induced Hyponatremia; Chronic Diast olic Heart Failure; Persistent Atrial Fibrillation; Edema of Lower Extremity; Obstructive Sleep Apnea Syndrome; Venous Stasis Ulcer with Edema of Right Lower Leg YESSICA TorresC: [address], [place] [address], Ph. 10/03/2021 Drug-induced Hyponatremia YESSICA TorresC: [address], [place] [address], Ph. 09/27/2021 Drug-induced Hyponatremia YESSICA TorresC: [address], [place] [address], Ph. 09/26/2021 Edema of Lower Extremity; Drug-induced H yponatremia; Drug-induced Hypokalemia; Azotemia YESSICA TorresC: [address], [place] [address], Ph. History of Present Illness Note: <div>Pt seen for acute rounding visit today for f/u RLE edema.</div><div>
</div><div>Pt being followed for the above. See prior notes for details.</div><div>
</div><div>Lasix increased back to 60 mg po bid 3 days ago due to worsening edema with bullae. KCl increased from 20 to 40 mEq po daily since there was room would hopefullyimprove hyponatremia.</div><div>
</div><div>Feeling much better on the increased Lasix. No other recent med changes. Edema better, no CP/INFANTE.</div><div><b r></div><div>PMHx reviewed</div><div>
</div><div>Meds reviewed</div>Review of Systems: ROS as noted in the HPI Review of Systems None recorded. Physical Exam ? Notes: <div>Sitting on edge of bed in NAD; speaks full sentences per breath</div><div>Skin p/w/d< /div><div>HEENT pink and moist mucous membranes</div><div>Neck sup ple</div><div>Lungs diminished, clear</div><div>Heart irreg irreg without M</div><div>Abd obese, soft, NT, ND with normoactive BS</div><di v>Ext with 1+ RLE edema and trace LLE edema</div><div>
</div>
--- OUTSIDE RECORDS SUMMARY | 2022-01-18 13:56 | XMS_ITS | Encounter Summary ---
:1960 Author Care Team Providers Name Role Phone Bambi Kim MD Primary Care Provider [phone] Jose Daria OTHER [phone] [facility] ([facility]) OTHER [phone] Reason for Visit Acute Rounding Visit mouth pain s/p extractions Assessment and Plan 1. Painful mouth s/p extractions continue oxycodone IR 5 mg po qid schedu led Add oxycodone IR 5 mg po q 8 h prn sever e mouth pain x 1 week -ok to give anytime relative to schedule d dose script for oxycodone IR 5 mg #90 no refi lls given to nurse Augmentin as recommended by dentist -benefits of treatment outweigh risks of no-treatment in this patient Follow clinically Discussion Note: [...] mRNA, LNP-S, PF, 30 mcg/0.3 mL dose ([employer]) 07/21/2020 08/18/2020 08/10/2021 pneumococcal, unspecified formulation 02/23/2018 [...] of Y Notes: valid copy on chart, direct mail coordinator? not invoked What was the date of [...] (No Notes) Functional Status Unknown. Past Encounters 12/27/2021 Painful Mouth Iesha Reece PA-C: [address] [place], [place] [address] [address], Ph. 12/25/2021 Contusion of Face; Fall on Same Level fr om Slipping, Tripping or Stumbling Iesha Reece PA-C: [address] [place], [place] [address] [address], Ph. 12/19/2021 Edema of Lower Extremity; Drug-induced H yponatremia Iesha Reece PA-C: [address] [place], [place] [address] [address], Ph. 12/08/2021 Chronic Diastolic Heart Failure; Persist ent Atrial Fibrillation; Dyslipidemia; Mixed Anxiety and Depressive Disorder; Hypertensive Disorder; Gastroesophageal Reflux Disease; Chronic Pain; Alcohol Dependence Phyllis Harper MD: [address] [place], [place] [address] [address], Ph. 12/05/2021 Edema of Lower Extremity; Drug-induced H yponatremia; Always Hungry; Drug-induced Hypokalemia; Persistent Atrial Fibrillation YESSICA TorresC: [address] [place] [address], [place] [address], Ph. History of Present Illness Note: <div>Pt seen today for acute rounding visit for post-dental extraction pain.</div><div>
</div><div>Approached by pt who reported the aforementioned. Says the dentist gave him a rx for Percocet but he told the nurse he didn't need to fill it since he's already on oxycodone. Is requesting a brief course of prn oxycodone to target the acute pain. On Augmentin per dentist.</div><div>
</div><div>PMHx reviewed</div><div>
</div><div>Meds reviewed</div>Review of Systems: ROS as noted in the HPI Review of Systems None recorded. Physical Exam ? Notes: <div>Ambulatory in NAD</div> <div>Mouth with minor bleeding; now full edentulous; face with slight edema</div><div>Neck supple</div>
--- OUTSIDE RECORDS SUMMARY | 2022-01-18 13:56 | XMS_ITS | Encounter Summary ---
:1960 Author Care Team Providers Name Role Phone Bambi Kim MD Primary Care Provider [phone] Jose Daria OTHER [phone] [facility] ([facility]) OTHER [phone] Reason for Visit Acute Rounding Visit f/u malaise Assessment and Plan 1. Malaise Resolved f/u prn Discussion Note: None recorded.Patient educational handouts: [...] Pressure 5 ft 9 in 157/105 mm[Hg] Results Lab Results None recorded. Allergies [...] mRNA, LNP-S, PF, 30 mcg/0.3 mL dose ([employer]) 07/21/2020 08/18/2020 08/10/2021 pneumococcal, unspecified formulation 02/23/2018 [...] of Y Notes: valid copy on chart, commercial real estate attorney? not invoked What was the date [...] (No Notes) Functional Status Unknown. Past Encounters 11/24/2021 Malaise Iesha Reece PA-C: [address] [place] [address] [place] [address], Ph. 11/23/2021 Malaise; Edema of Lower Extremity; Drug- induced Hyponatremia; Drug-induced Hypokalemia; Acute Nontraumatic Kidney Injury Iesha Reece PA-C: [address] [place] [address] [place] [address], Ph. 11/17/2021 Edema of Lower Extremity; Drug-induced H yponatremia; Acute Nontraumatic Kidney Injury Iesha Reece PA-C: [address] [place] [address] [place] [address], Ph. 11/09/2021 Drug-induced Hyponatremia; Edema of Lowe r Extremity; Drug-induced Hypokalemia Iesha Reece PA-C: [address] [place] [address] [place] [address], Ph. 11/02/2021 Edema of Lower Extremity; Drug-induced H yponatremia YESSICA TorresC: [address], [place] [address], Ph. 10/27/2021 Serous Bulla of Skin YESSICA TorresC: [address], [place] [address], Ph. 10/26/2021 Edema of Lower Extremity; Drug-induced H yponatremia YESSICA TorresC: [address], [place] [address], Ph. History of Present Illness Note: <div>Pt seen for acute rounding visit today for f/u malaise.</div><div>
</div><div>Pt seen yesterday for the above. Labs were ok, exam was unrevealing, and plan was to f/u today. Says he feels back to his usual self and still has no explanation as to why he feltpoorly yesterday.</div><div>
</div><div>PMHx reviewed</div>&lt ;div>
</div><div>Meds reviewed</div>Review of Systems: ROS as noted in the HPI Review of Systems None recorded. Physical Exam ? Notes: <div>Sitting on edge of bed in NAD; breathing non-labored</div><div>Skin p/w/d</div><div>HEENT pink a nd moist mucous membranes</div><div>Neck supple</div><div>Lungs dimin ished, clear</div><div>Heart irreg irreg without M</div><div>Abd obese, soft, NT, ND with normoactive BS</div><div>Ext with 1+ RLE edema and no LLE edema</ div>
--- OUTSIDE RECORDS SUMMARY | 2022-01-18 13:56 | XMS_ITS | Encounter Summary ---
:1960 Author Care Team Providers Name Role Phone Bambi Kim MD Primary Care Provider [phone] Jose Daria OTHER [phone] [facility] OTHER [phone] Reason for Visit Acute Rounding Visit hyponatremia, edema, ARIAN Assessment and Plan 1. Edema of lower extremity Chronically asymmetric with R >L Back to baseline No evidence of cellulitis 2. Drug-induced hyponatremia Improved with increased K Monitor and f/u prn 3. Acute nontraumatic kidney injury Trial decrease Lasix from 60 mg po bid to 60 mg po bid alternating with 40 mg po bid - start 11/19 Hold Lasix 11/18 U/A for completeness Repeat labs 1 week Discussion Note: None recorded.Patient educational handouts: No [...] mRNA, LNP-S, PF, 30 mcg/0.3 mL dose ([employer]) 07/21/2020 08/18/2020 08/10/2021 pneumococcal, unspecified formulation 02/23/2018 [...] of Y Notes: valid copy on chart, workers compensation defense attorney? not invoked What was the date [...] (No Notes) Functional Status Unknown. Past Encounters 11/17/2021 Edema of Lower Extremity; Drug-induced H yponatremia; Acute Nontraumatic Kidney Injury Iesha Reece PA-C: [address] [place] [address], [place] [address], Ph. 11/09/2021 Drug-induced Hyponatremia; Edema of Lowe r Extremity; Drug-induced Hypokalemia Iesha Reece PA-C: [address] [place] [address], [place] [address], Ph. 11/02/2021 Edema of Lower Extremity; Drug-induced H yponatremia Iesha Reece PA-C: [address] [place] [address], [place] [address], Ph. 10/27/2021 Serous Bulla of Skin Iesha Grover IRAM Reece-C: [address], [place] [address], Ph. 10/26/2021 Edema of Lower Extremity; Drug-induced H yponatremia Iesha Reece PA-C: [address], [place] [address], Ph. 10/23/2021 Edema of Lower Extremity; Drug-induced H yponatremia; Serous Bulla of Skin Iesha Grover Chevy PA-C: [address], [place] [address], Ph. 10/20/2021 Edema of Lower Extremity; Drug-induced H yponatremia Iesha Grover IRAM Reece-C: [address], [place] [address], Ph. 10/17/2021 Drug-induced Hyponatremia Iesha Grover IRAM Reece-C: [address], [place] [address], Ph. History of Present Illness Note: <div>Pt seen today for acute rounding visit for f/u hyponatremia, edema, and ARIAN.</div><div>
</div><div>Pt being followed for RLE edema and hyponatremia. See prior notes for details. Leg feels better. Still making plenty of urine. No dyspnea.</div><div>
</div><div>PMHx reviewed</div><div>
</div><div>Meds reviewed</div>Review of Systems: ROS as noted in the HPI Review of Systems None recorded. Physical Exam ? Notes: <div>Sitting on edge of bed in NAD</div><div>Skin p/w/d</div><div>HEENT pink and moist mucous membranes</ div><div>Neck supple</div><div>Lungs diminished, clear</div><div>Heart irreg irreg without M</div><div>Abd obese, soft, NT, ND with normoactive BS</div><di v>Ext with 1+ RLE edema and no LLE edema</div><div>
</div ><div>Recent diagnostics:</div><div>11/16:</div><div>lytes, BUN/Cr, glu: 128/3.6/84/27, 53/1.5, 86</div><div>Ca 9.2< /div><div>
</div><div>11/08/21: </div><div>lytes, BUN/Cr, gl u: 128/3.9/85/28, 34/1.4, 60 </div><div>Ca 9.5 </div><div>
</div><div>: </div><div>lytes, BUN/Cr, glu: 124/3.6/82/30, [...]
--- OUTSIDE RECORDS SUMMARY | 2022-01-18 13:56 | XMS_ITS | Encounter Summary ---
:1960 Author Care Team Providers Name Role Phone Bambi Kim MD Primary Care Provider [phone] Jose Daria OTHER [phone] [facility] OTHER [phone] Reason for Visit Routine Rounding routine rounding visit Assessment and Plan 1. Chronic diastolic heart failure metoprolol 100 mg bid digoxin 0.25 mg daily spironolactone 75 mg bid metolazone 2.5 mg daily on M, W, F furosemide 40 mg bid alternating with 60 mg bid fu cardiology 2. Persistent atrial fibrillation diltiazem ER 300 mg daily for rate cont rol metoprolol 100 mg bid for rate control digoxin 0.25 mg daily apixaban 5 mg bid will monitor 3. Dyslipidemia atorvastatin 40 mg daily will monitor 4. Mixed anxiety and depressive disorde r aripiprazole 2.5 mg daily venlafaxine ER 150 mg daily vilazodone 20 mg daily zolpidem 5 mg at hs for insomnia will monitor 5. Hypertensive disorder diltiazem ER 300 mg daily furosemide 40 mg bid alternate with 60 m g bid metolazone 2.5 mg daily on M, W, F spironolactone 75 mg bid metoprolol 100 mg bid will monitor 6. Gastroesophageal reflux disease omeprazole 20 mg daily will monitor 7. Chronic pain cyclobenzaprine 10 mg tid oxycodone 5 mg qid APAP 650 mg q6h prn PT/OT prn will monitor 8. Alcohol dependence acamprosate 666 mg tid social service for support, offer AA, ot her interdisciplinary resources for continued sobriety will monitor Discussion Note: None recorded.Patient educational handouts: No [...] mRNA, LNP-S, PF, 30 mcg/0.3 mL dose ([employer]) 07/21/2020 08/18/2020 08/10/2021 pneumococcal, unspecified formulation 02/23/2018 Notes: Immunizations reconciled as of 08/11/21 Refused seasonal influenza PCV20 ordered Social History Tobacco Smoking Status Never Smoker Do you have a medical power of Y Notes: valid copy on chart, divorce attorney? not invoked What is your level of alcohol Moderate consumption? Legal Guardian? N Do you have an out of hospital DNR? N Do you or have you ever used any N other forms of tobacco or nicotine? Have you ever been counseled for Y unhealthy alcohol use? How many days in the past year have 300 you consumed 5 or more drinks? Has tobacco cessation counseling N Notes: N/A been provided? What was the date of your most 05/02/2021 recent tobacco screening? Do you have an advanced directive? N How many years have you consumed 30 alcohol? Do you use any illicit or N recreational drugs? How many times per week do you 5-7 times per week consume alcohol? Family History Relation Problem Onset Age of Age Notes Father Coronary arteriosclerosis (No Information) N/A (No Notes) Mother Coronary arteriosclerosis (No Information) N/A (No Notes) Functional Status Unknown. Past Encounters 12/08/2021 Chronic Diastolic Heart Failure; Persist ent Atrial Fibrillation; Dyslipidemia; Mixed Anxiety and Depressive Disorder; Hypertensive Disorder; Gastroesophageal Reflux Disease; Chronic Pain; Alcohol Dependence Phyllis Harper MD: [address] [place] [address], [place] [address], Ph. 12/05/2021 Edema of Lower Extremity; Drug-induced H yponatremia; Always Hungry; Drug-induced Hypokalemia; Persistent Atrial Fibrillation YESSICA TorresC: [address] [place] [address], [place] [address], Ph. 11/24/2021 Malaise Iesha Reece PA-C: [address] [place] [address], [place] [address], Ph. 11/23/2021 Malaise; Edema of Lower Extremity; Drug- induced Hyponatremia; Drug-induced Hypokalemia; Acute Nontraumatic Kidney Injury Iesha Reece PA-C: [address] [place] [address], [place] [address], Ph. 11/17/2021 Edema of Lower Extremity; Drug-induced H yponatremia; Acute Nontraumatic Kidney Injury Iesha Reece PA-C: [address] [place] [address], [place] [address], Ph. 11/09/2021 Drug-induced Hyponatremia; Edema of Lowe r Extremity; Drug-induced Hypokalemia Iesha Reece PA-C: [address] [place] [address], [place] [address], Ph. 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 </div><div>
</div><div>Medical history is remarkable for HTN, HLD, CHF, PE, Afib, anemia, anxiety/depression, thoracic aortic aneurysm, gastric bypass surgery, alcohol use disorder</div><div>
</div><div>Patient is followed closely for peripheral edema as well as some malaise over last month. It is of note that GDR of aripiprazole was started 10/18/21 with decrease in dose from 5.0 mg to 2.5 mg daily.</div><div>
</div><div>Today patient is sitting in bed playing a game on his phone. He tells me that he is doing much better, has less swelling in his leg. He complains that he doesn't get enough for supper.</div><div>
</div><div>MOLST: full code - signed 03/28/21</div> Review of Systems: ROS as noted in the HPI Review of Systems ? Notes: <div>All others reviewed and negative unless otherwise stated in the HPI.</div> Physical Exam ? General Adult Exam Reported By: Patient Constitutional: General Appearance: well-nou rished, well-developed. Level of Distress: NAD. Ambulation: a mbulation with walker; sitting on bed Psychiatric: Insight: good judgement. Men ed Status: active and alert, normal mood, normal affect. Orienta tion: to time, to place, to person. Memory: recent memory normal , remote memory normal Head: Head: normocephalic, atrauma tic Eyes: Lids and Conjunctivae: non-i njected. Sclerae: non-icteric ENMT: Hearing: no hearing loss. Or opharynx: moist mucous membranes Neck: Neck: supple Lungs: Auscultation: breath sounds normal Cardiovascular: Heart Auscultation: irregula rly irregular Abdomen: Bowel Sounds: normal, no ten derness Musculoskeletal:: Extremities: no cyanosis, ed sridhar; +1 BLE. Joints, Bones, and Muscles normal movement of all extre mities Neurologic: Cranial Nerves: grossly inta ct Notes: <div>11/23/21: sodium 139, po tassium 4.7, cr 1.4, BUN 23, glucose 83</div><div>12/05/21: sodium 132, potassium 4.1, cr 1.5, BUN 34, glucose 85</div>
--- OUTSIDE RECORDS SUMMARY | 2022-01-18 13:56 | XMS_ITS ---
:1960 Author Name BelenSarai parkerkalen Care Team Providers Name Role Phone Maty Darnell Unavailable Unavailable PROBLEMS Unknown Problems ALLERGIES No Known Allergies ENCOUNTERS Encounter Location Date Diagnosis [address] Feb, [place] [address] Dec, Xer osis cutis L85.3 ; [place] Tinea unguium B 35.1 ; [id number] Pain in left toe (s) M79.675 and Pain in right toe(s) M79 .674 [facility] [address] Nov, [place] [place] [address] Sep, Tin ea unguium B35.1 ; [place] Xerosis cutis L 85.3 ; [address] Pain in right to e(s) M79.674 and Pain in left toe(s) M79.[address] Jun, [place] [address] Jun, Tin ea unguium B35.1 ; [place] Xerosis cutis L 85.3 ; [address] Pain in right to e(s) M79.674 ; Pain i n left toe(s) M79.675 a nd Plantar fascial fibromatosis M72 .[address] Jan, [place] [address] [facility] [address] Oct, Tin ea unguium B35.1 and [place] Pain in left to e(s) [address] M79.[address] [facility] Oct, [place] [address] IMMUNIZATIONS Vaccine Route Administration Date Status COVID-19 Moderna Vaccine Unknown July 21, 2020 Adminis tered SOCIAL HISTORY Qualifiers Date Never Smoker REASON FOR REFERRAL FUNCTIONAL STATUS PLAN OF CARE VITAL SIGNS Height 6 ft in 2020-12-09 Weight 300 lbs 2020-12-09 BMI 40.68 kg/m2 2020-12-09 Heart Rate 111 /min 2017-10-25 Temperature 98.1 degrees Fahrenheit 2020-07-06 Blood pressure systolic 137 mm Hg 2020-12-09 Blood pressure diastolic 82 mm Hg 2020-12-09 MEDICATIONS Medication Instructions Dosage Frequency Start Date End Date Duration S tatus Atorvastatin Active Calcium Effexor Active Eliquis Active Abilify Active Metoprolol Active Succinate ER Ambien Active PROCEDURES Procedure Date Ordered Result Body Site DEBRIDE NAIL, 6 OR MORE September 14, 2020 DEBRIDE NAIL, 6 OR MORE Dec 09, 2020 DEBRIDE NAIL, 6 OR MORE July 06, 2020 DEBRIDE NAIL, 6 OR MORE Nov 22, 2020 RESULTS No Results REASON FOR VISIT Insurance Providers [facility] Health Member Patient Patient Patient Patient Patient Subscriber Subscriber Subscriber Group Insurance Plan Plan Plan Plan ID Relationship Address Phone Name Date of ID Name Date of No Type Insurance Insurance Insurance Coverage to Subscriber Address Phone Name Dates Medicare National [id number] Medicare self Bennie 1960 [address] [id number] [employer] [address] [employer] [address] [place] [address] MEDICAL (GENERAL) HISTORY Type Description Date Medical History Angina Medical History Back,Hip,and Knee pain Medical History Heart disease Medical History Mumps Medical History Measles Medical History Chicken pox Medical History Joint implants/screws Surgical History stomach surgery Surgical History gall bladder Surgical History tendon repair X3 PLanter Fasture
== END 2022-01-18 14:09 | disposition left against medical advice (07) ==
LOC: HO.ED 13:54
PROVIDERS: Emergency Provider Student in an Organized Health Care Education/Training Program
DX: M79.661 Pain in right lower leg (principal); F19.10 Other psychoactive substance abuse, uncomplicated; F10.10 Alcohol abuse, uncomplicated; Y90.9 Presence of alcohol in blood, level not specified; E78.5 Hyperlipidemia, unspecified; I48.20 Chronic atrial fibrillation, unspecified; E66.9 Obesity, unspecified; Z68.39 Body mass index [BMI] 39.0-39.9, adult; Z86.711 Personal history of pulmonary embolism; Z79.01 Long term (current) use of anticoagulants; Z79.899 Other long term (current) drug therapy; Z79.02 Long term (current) use of antithrombotics/antiplatelets
CPT/HCPCS: 93005; 99282; 99283

== ENCOUNTER 2022-01-18 16:48 | Emergency (ER) | payer MEDICARE, MEDICAID, SELFPAY ==
--- NOTE | ~2022-01-18 | US_ITS ---
EXAMINATION: US VENOUS ULTRASOUND WITH DOPPLER LOWER EXTREMITY, BILATERAL CLINICAL INFORMATION: Bilateral leg pain COMPARISON: February 08, 2021, December 15, 2020, and September 20, 2015. TECHNIQUE: Ultrasound of the deep veins is performed from the hip to the calf with compression sonography and color and pulse Doppler assessment. Spectral analysis with color-flow imaging is performed. FINDINGS: RIGHT: There is normal venous compression and respiratory variation and augmented flow. The visualized common femoral vein, superficial femoral vein, profunda femoral vein, popliteal vein, and the trifurcation region shows no evidence of deep venous thrombosis. There is no significant popliteal fossa cyst. No popliteal artery aneurysm. LEFT: There is normal venous compression and respiratory variation and augmented flow. The visualized common femoral vein, superficial femoral vein, profunda femoral vein, popliteal vein, and the trifurcation region shows no evidence of deep venous thrombosis. There is no significant popliteal fossa cyst. No popliteal artery aneurysm. If the patient's symptoms persist, followup ultrasound in 5 days 7 days might be of value to exclude proximal propagation from a non-visualized calf vein. US/US venous duplex LE BI IMPRESSION: No acute DVT demonstrated in the bilateral lower extremity.
--- NOTE | ~2022-01-18 | XR_ITS ---
EXAMINATION: XR CHEST CLINICAL INFORMATION: Atrial fibrillation COMPARISON: Chest 03/06/2021 TECHNIQUE: Frontal view of the chest was obtained. FINDINGS: The lungs are well-expanded and clear. The heart size enlarged. Pulmonary vascularity is within normal limits. No gross bony abnormality seen. XR/XR chest 1V IMPRESSION: Cardiomegaly. No acute process.
--- NOTE | ~2022-01-18 | US_ITS ---
EXAMINATION: US VENOUS ULTRASOUND WITH DOPPLER LOWER EXTREMITY, bilateral CLINICAL INFORMATION: Leg swelling worse on the right. COMPARISON: None TECHNIQUE: Ultrasound of the deep veins is performed from the hip to the calf with compression sonography and color and pulse Doppler assessment. Spectral analysis with color-flow imaging is performed. FINDINGS: RIGHT LEG: There is normal venous compression and respiratory variation and augmented flow. The visualized common femoral vein, superficial femoral vein, profunda femoral vein shows no evidence of deep venous thrombosis. The popliteal and calf veins was not evaluated as patient refused imaging further scanning. There is no significant popliteal fossa cyst. LEFT LEG: The left leg was not imaged as patient terminated the procedure. If the patient's symptoms persist, followup ultrasound in 5 days 7 days might be of value to exclude proximal propagation from a non-visualized calf vein. US/US venous duplex LE RT IMPRESSION: No DVT demonstrated in the right lower extremity above the palpable fossa. Patient refused and terminated the exam hence the right calf and left leg was not evaluated..
[2022-01-18 17:01] VITALS: BP 120/68; PULSE 120; RESP 18; TEMP 36.4; O2SAT 97; BMI 38.2
[2022-01-18 17:37] LABS: MANUAL DIFF FLAG NO
[2022-01-18 17:45] LABS: Basophils Absolute Auto 0.1 X10*3/uL (0.0-0.2); Basophils Percent Auto 0.9 % (0-2); Hematocrit 34.2 % (42.0-52.0); Imm Gran Abs Auto 0.12 X10*3/uL (0.00-0.03); Imm Gran Pct Auto 1.1 % (0.0-0.4); Lymphocytes Absolute Auto 0.8 X10*3/uL (1.2-4.9); Lymphocytes Percent Auto 7.1 % (20-40); Mean Corpuscular HGB Conc 32.2 g/dl (31.0-36.0); Mean Corpuscular Hemoglobin 30.4 pg (27.0-33.0); Mean Corpuscular Volume 94.5 fL (80.0-98.0); Mean Platelet Volume 9.5 fL (9.4-12.4); Monocytes Absolute Auto 0.9 X10*3/uL (0.1-1.2); Monocytes Percent Auto 8.2 % (2-11); Neutrophils Absolute Auto 9.2 x10*3/uL (2.0-8.3); Neutrophils Percent Auto 82.7 % (45-73); Platelet Count 331 X10*3/uL (160-400); Red Blood Count 3.62 X10*6/uL (4.60-5.80); White Blood Count 11.2 X10*3/uL (4.8-10.8)
[2022-01-18 18:01] LABS: B Type Natriuretic Peptide 46 pg/mL (<100); Troponin-I High Sensitivity 63.1 ng/L (<3.5-35.0)
[2022-01-18] MEDS: dilTIAZem HCL 50 MG/10 ML VIAL 10 MG IVPUSH (18:07)
[2022-01-18] MEDS: Thiamine HCL 200 MG in 0.9 % Sodium Chloride 100 ML 204 MG IV (18:07)
[2022-01-18] MEDS: LORazepam 1 MG TABLET 2 MG PO (18:07)
[2022-01-18 18:08] LABS: Alanine Aminotransferase 25 U/L (0-40); Albumin Level 4.2 g/dL (3.5-5.0); Alkaline Phosphatase 90 U/L (39-117); Anion Gap 21 (12-20); Aspartate Amino Transferase 23 U/L (5-37); Bilirubin Total 0.6 mg/dL (0.0-1.0); Blood Urea Nitrogen 26 mg/dL (9-16); Calcium 9.6 mg/dL (8.4-10.2); Carbon Dioxide 22 mmol/L (22-29); Chloride 96 mmol/L (96-108); Creatinine Clr Calc Pharmacy 67.4; Estimated Glomerular Filt Rate 46; Ethanol < 10 mg/dL; Glucose Random 90 mg/dL (60-115); Magnesium 2.4 mg/dL (1.6-2.6); Sodium 135 mmol/L (135-145); Total Protein 7.5 g/dL (6.5-8.0)
[2022-01-18 18:15] VITALS: BP 118/67; PULSE 99; RESP 18; TEMP 36.7; O2SAT 100
--- NOTE | 2022-01-18 18:19 | ED_ITS ---
HPI - Chest Pain General Chief Complaint: Arrhythmia/Palpitations Stated Complaint: mental check, heart problem Time Seen by Provider: 01/18/22 17:08 Source: patient and EMS Mode of arrival: EMS Limitations: other (Poor historian) History of Present Illness HPI narrative: 61-year-old male with a past medical history of anemia, anxiety, depression, history of thoracic aortic aneurysm, hypertension, hyperlipidemia, CHF, history of pulmonary embolism, atrial fibrillation on Eliquis taking as prescribed per patient, alcohol dependence was brought in by EMS was found by [facility] staff in a bar drinking beer after he eloped from here while he was being evaluated earlier today after he was kicked out of the sniff at 01:30 this morning for having non prescribed medications hit in his cane, however patient r eports that he did not have any medications head in. He reports that he is having some right-sided chest pain that radiates to left side of the chest that started earlier today when he was running and hiding behind the bushes. He reports that the pain has been constant. This started shortly after he eloped from here. He reports that he was at the bar and he drank 1 beer. From the earlier providers know it appears that he told them that he took a couple of Ambien. He also endorses pain to bilateral lower extremity and reports it is more swollen than normal. He denies any dizziness, change in vision, lightheadedness, headaches, nausea/vomiting, jaw pain, paresthesias, dyspnea on exertion, orthopnea, palpitations, paresthesias, abdominal pain, back pain, dysuria, hematuria, abnormal penile discharge, black or bloody stools, recent travel or sick contacts, SI/HI/auditory visualizations thoughts of self-injury. Denies any drug usage. 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) Timing of current episode: constant Prior episodes: Yes Onset: during exertion Pain location: left chest and right chest Pain radiation: none Severity: mild Quality: aching Relieving factors: nothing Exacerbating factors: nothing Associated symptoms: leg swelling Treatment prior to arrival: none Risk Factors Coronary artery disease risk factors: hyperlipidemia and hypertension Thoracic aortic dissection risk factors: none Pulmonary embolism risk factors: history of pulmonary embolism Related Data Home Medications Medication Instructions Recorded Confirmed melatonin 3 mg capsule 3 mg PO BEDTIME PRN Sleep 03/20/21 03/25/21 acamprosate 333 mg tablet,delayed 2 tab PO TID 03/26/21 03/26/21 release nystatin 100,000 unit/mL oral 500,000 unit PO QID 03/26/21 03/26/21 suspension ondansetron 4 mg disintegrating 4 mg PO Q8H PRN Nausea And Vomiting 03/26/21 03/26/21 tablet vilazodone 20 mg tablet 20 mg PO DAILY 03/26/21 03/26/21 Previous Rx's Medication Instructions Recorded apixaban 5 mg tablet (Eliquis) 5 mg PO BID 90 days #180 tabs 05/25/20 aripiprazole 5 mg tablet (Abilify) 5 mg PO DAILY 90 days #90 tabs 05/25/20 atorvastatin 40 mg tablet 40 mg PO BEDTIME 90 days #90 tabs 05/25/20 venlafaxine 150 mg 150 mg PO DAILY 90 days #90 caps 05/25/20 capsule,extended release 24 hr (Effexor XR) loperamide 2 mg capsule (Imodium 2 mg PO Q6H PRN diarrhea #30 caps 02/17/21 A-D) cyclobenzaprine 10 mg tablet 10 mg PO TID PRN back pain #30 tabs 03/12/21 diltiazem HCl 180 mg 360 mg PO DAILY #30 caps 03/12/21 capsule,extended release 24 hr (Cardizem CD) metoprolol tartrate 100 mg tablet 100 mg PO BID #60 tabs 03/12/21 acetaminophen 325 mg tablet 650 mg PO Q6H PRN Pain, Mild (Pain 03/27/21 Scale 1-3) #30 tabs docusate sodium 100 mg capsule 100 mg PO DAILY PRN constipation 03/27/21 (Colace) #30 caps lidocaine 4 % topical patch 1 patch transdermal DAILY #10 ea 03/27/21 (Lidocaine Pain Relief) omeprazole 20 mg capsule,delayed 20 mg PO DAILY #30 caps 03/27/21 release oxycodone 5 mg tablet 5 mg PO Q6H PRN Pain, Mild (Pain 03/27/21 Scale 1-3) #5 tabs prednisone 20 mg tablet 20 mg PO DAILY #5 tabs 03/27/21 sennosides 8.6 mg tablet (Senna 17.2 mg PO BEDTIME #30 tabs 03/27/21 Lax) prednisone 20 mg tablet 20 mg PO DAILY #3 tabs 03/28/21 Allergies Allergy/AdvReac Type Severity Reaction Status Date / Time No Known Allergies Allergy Verified 12/15/20 05:52 Review of Systems Review of Systems: Constitutional : No Weight loss, No Fever, No Chills, No Night Sweats, No Fatigue, No Malaise ENT/Mouth : No Hearing loss, No Ear Pain, No Nasal Congestion, No Sinus Pain, No Hoarseness, No sore throat, No Rhinorrhea, No Swallowing Difficulty Eyes: No Eye Pain, No Swelling, No Redness, No Foreign Body, No Discharge, No Vision Changes Cardiovascular : + Chest Pain, + RLE edema, No SOB, No Dyspnea on Exertion, No Orthopnea, No Palpitations Respiratory : No Cough, No Sputum, No Wheezing, No Smoke Exposure, No Dyspnea Gastrointestinal : No Nausea, No Vomiting, No Diarrhea, No Constipation, No a bdominal Pain, No Hematochezia, No Melena Genitourinary : no irregular bleeding, No Dysuria, No Urinary Frequency, No Hematuria, No Urinary Incontinence, No Urgency, No Flank Pain, No Urinary Flow Changes, No Hesitancy Musculoskeletal : No joint pain, No Myalgias, No Joint Swelling Skin : No Skin Lesions, No rash Neuro : No Weakness, No Numbness, No Paresthesias, No Loss of Consciousness, No Dizziness, No Headache Psych : No Anxiety/Panic, No Depression, No SI/HI/AH/VH, No Social Issues, Heme/Lymph: No Bruising, No Bleeding,No Lymphadenopathy Endocrine : No Polyuria, No Polydipsia, No Temperature Intolerance Yes all other systems are reviewed and are negative [facility] Past Medical History Attestation statement: The following information was validated with the patient. Source: old records reviewed and nursing notes reviewed Medical History ARIAN (acute kidney injury) Alcohol dependence Alcohol intoxication Alcohol withdrawal Alcohol withdrawal delirium Anemia Atrial fibrillation with RVR Atrial fibrillation with RVR Atrial fibrillation with RVR Chest pain Chronic atrial fibrillation Depression Dyslipidemia Heart failure with left ventricular ejection fraction greater than or equal to 50 percent History of alcohol abuse Incarcerated incisional hernia Insomnia Metabolic acidosis with increased anion gap and accumulation of organic acids Morbid obesity Obesity Oral thrush Pulmonary embolism Sciatica Thoracic aortic aneurysm Toenail deformity Surgical History History of incisional hernia repair History of inguinal hernia repair Hx of gastric bypass S/P cholecystectomy Family History Family History Mother No problems noted. Father No problems noted. Family/Other Substance use disorder Social History Social History Household Members: None Household Members Other:: lives with mother Housing: Apartment Do you presently have visiting nurse or other home services: Yes Unable to assess alcohol history related to: Unable to respond Alcohol intake: current Alcohol intake frequency: a few times a week Alcohol type: beer Patient Tobacco Use Status: Never used Tobacco e-Cigarette/Vaping Use: Never Used Second Hand Smoke Exposure: No Advance Directives: Yes Advance Directives on File: Yes Advance Directives Date on File: 03/13/21 service: No Current occupational status: retired Physical Exam Vital Signs: Vital Signs: Last Vital Signs Temp 98.0 F 01/18/22 18:15 Pulse 99 01/18/22 18:15 Resp 18 01/18/22 18:15 BP 118/67 01/18/22 18:15 Pulse Ox 100 01/18/22 18:15 O2 Del Method 01/18/22 18:15 BMI result Body Mass Index 38.2 vital signs have been reviewed as normal and appeared to be correct. Blood pressure normal. Heart rate 120 Respiration rate normal. Temperature normal. Oxygen saturation normal. Appearance: Alert. Oriented X3. No acute distress. Head: Normal external exam. Normocephalic. Atraumatic. No Richardson signs noted. No raccoon eyes noted Eyes: PERRLA. EOMI. Conjunctiva and sclera normal. Eyelids normal. ENT: EAC normal. TM's Normal. No septal hematoma noted. No hemotympanum noted. Pharynx normal. Uvula midline. Moist mucous membranes. No lesions/ulcerations or masses noted on the tongue. Normal voice. No trismus noted. No drooling noted. No muffled voice noted. Neck: Normal inspection. Neck supple. FROM. No adenopathy. Thyroid Normal. No tracheal deviation noted. No crepitus is noted. No meningeal signs. No neck mass noted. No signs of trauma noted. CVS: Normal heart rate and rhythm. Heart sound normal. Pulses normal throughout. No murmurs/rales/gallops. Respiratory: No respiratory distress. Painless inspiration. Breath sounds normal. No wheezes/rales/rhonchi noted. Chest nontender. No crepitus is noted. No accessory muscle usage noted or decreased air movement noted. No signs of trauma. Abdomen: Soft and nontender. Nondistended. No guarding. No rigidity. Bowel sounds normal in all 4 quadrants. No distention noted. No organomegaly noted. No visible injury noted. No rebound tenderness. Negative Rovsing sign. Negative obturator's sign. Negative psoas sign. Negative Fregoso sign. Back: No CVA tenderness. Full range of motion noted. Nontender. No signs of trauma. Patient neuro intact bilaterally and distally on all 4 extremities. Patient's reflexes intact bilaterally and distally on all 4 extremities. No rashes/lesion/induration/fluctuance or signs of infection noted. Skin: Skin warm and dry. Normal skin color. Normal skin turgor. No rashes/lesions/lacerations noted. Extremities: Pitting edema to bilateral lower extremity worse on the right side. Patient noted to have bilateral lower extremity calf tenderness. Extremities exhibit normal range of motion and nontender. Neuro: Oriented X 3. No motor deficit. No sensory deficit. Reflexes normal. Normal steady gait. No focal neuro deficits noted. CN's II-XII intact bilaterally? Vascular: + radial pulses/+ 2 distal pedal pulses/+2 dorsalis pedis b/l. Normal cap refill. No cyanosis noted to upper extremity nails and lower extremity toes nails. Course Course Course Narrative: 17pm - 61yoM c PMHx of anemia, anxiety, depression, history of thoracic aortic aneurysm, HTN, HLD, CHF, history of pulmonary embolism, atrial fibrillation on Eliquis taking as prescribed per patient, alcohol dependence was brought in by EMS was found by [facility] staff in a bar drinking beer after he eloped from here while he was being evaluated earlier today after he was kicked out of the sniff at 01:30 this morning for having non prescribed medications hit in his cane, however patient reports that he did not have any medications head in. He reports that he is having some right-sided chest pain that radiates to left side of the chest that started earlier today when he was running and hiding behind the bushes. He reports that the pain has been constant. This started shortly after he eloped from here. He reports that he was at the bar and he drank 1 beer. From the earlier providers know it appears that he told them that he took a couple of Ambien. He also endorses pain to bilateral lower extremity and reports it is more swollen than normal. Patient had an EKG and revealed atrial fibrillation with RVR with ventricular rate of 121 with a right bundle-branch block. Plan: Therefore placed patient on a monitoring analyst, see wall score ordered, chest x-ray, blood cultures, lactic acid, labs, venous duplex ultrasound of bilateral lower extremity. Provide 2 mg of Ativan, 200 mg of IV thiamine, 10 mg of diltiazem, and 2 g of magnesium and re-evaluate. Reevaluation(s) Reevaluation #1: - labs return patient with elevated white blood cell count at 11,000. Mild baseline anemia which is improved when compared to prior with a H&H of 11.0/34.2. - Patient's BUN/creatinine 26/1.55. - Total CPK 246. - Troponin 63.1. Will be repeated. - Ethanol level negative. - Otherwise all other labs are within normal limits. - CXR revealed Cardiomegaly. - Patient is now in normal sinus rhythm. - Therefore will order a L of IV fluids and reassess the patients Kidney function. Time: 19:16 Reevaluation #2: - Sign out to CARLO Abel pending repeat troponin, basic metabolic to assess the patient's kidney function. - then she can assess if the patient needs to go to a new short-term rehab due to patient no longer has an apartment. Denies having a legal guardian. Reports he can make his own decisions. He is alert oriented x3. Time: 20:47 MDM - Chest Pain Medical Records Data Attestation: I reviewed the patient's medical records. Lab Data Attestation: I reviewed the patient's lab results. Result diagrams: 01/18/22 17:28 01/18/22 17:26 Labs: Lab Results 01/18/22 01/18/22 01/18/22 Range/Units 17:26 17:26 17:28 WBC 11.2 H (4.8-10.8) X10*3/uL RBC 3.62 L (4.60-5.80) X10*6/uL Hgb 11.0 L (14.0-18.0) g/dl Hct 34.2 L (42.0-52.0) % MCV 94.5 (80.0-98.0) fL MCH 30.4 (27.0-33.0) pg MCHC 32.2 (31.0-36.0) g/dl RDW 16.0 (11.0-16.0) % Plt Count 331 D (160-400) X10*3/uL MPV 9.5 (9.4-12.4) fL Immature Gran % (Auto) 1.1 H (0.0-0.4) % Neut % (Auto) 82.7 H (45-73) % Lymph % (Auto) 7.1 L (20-40) % [place] % (Auto) 8.2 (2-11) % Eos % (Auto) 0.0 (0-4) % Baso % (Auto) 0.9 (0-2) % Lymph # (Auto) 0.8 L (1.2-4.9) X10*3/uL [place] # (Auto) 0.9 (0.1-1.2) X10*3/uL Eos # (Auto) 0.0 (0.0-0.4) X10*3/uL Baso # (Auto) 0.1 (0.0-0.2) X10*3/uL Abs Immat Gran (auto) 0.12 H (0.00-0.03) X10*3/uL Absolute Neuts (auto) 9.2 H (2.0-8.3) x10*3/uL Absolute Nucleated RBC 0.000 (0.0-0.012) X10*3/uL Nucleated RBC % (auto) 0.0 (0.0-0.2) /100WBC PT (10.0-13.1) SEC INR (0.9-1.1) Sodium 135 (135-145) mmol/L Potassium 4.0 (3.3-5.1) mmol/L Chloride 96 (96-108) mmol/L Carbon Dioxide 22 (22-29) mmol/L Anion Gap 21 H (12-20) BUN 26 H D (9-16) mg/dL Creatinine 1.55 H (0.5-1.4) mg/dL Estim Creat Clear Calc 67.4 Estimated GFR 46 Random Glucose 90 (60-115) mg/dL Lactic Acid (0.5-2.0) mmol/L Calcium 9.6 D (8.4-10.2) mg/dL Magnesium 2.4 (1.6-2.6) mg/dL Total Bilirubin 0.6 (0.0-1.0) mg/dL AST 23 (5-37) U/L ALT 25 (0-40) U/L Alkaline Phosphatase 90 (39-117) U/L Total Creatine Kinase 246 H (38-174) U/L Troponin I High Sens 63.1 H D (<3.5-35.0) ng/L B-Natriuretic Peptide 46 (<100) pg/mL Total Protein 7.5 (6.5-8.0) g/dL Albumin 4.2 (3.5-5.0) g/dL Ethyl Alcohol < 10 mg/dL COVID-19 (NOLAN) (Negative) COVID-19 Clin Com 01/18/22 01/18/22 01/18/22 Range/Units 17:55 18:13 20:06 WBC (4.8-10.8) X10*3/uL RBC (4.60-5.80) X10*6/uL Hgb (14.0-18.0) g/dl Hct (42.0-52.0) % MCV (80.0-98.0) fL MCH (27.0-33.0) pg MCHC (31.0-36.0) g/dl RDW (11.0-16.0) % Plt Count (160-400) X10*3/uL MPV (9.4-12.4) fL Immature Gran % (Auto) (0.0-0.4) % Neut % (Auto) (45-73) % Lymph % (Auto) (20-40) % [place] % (Auto) (2-11) % Eos % (Auto) (0-4) % Baso % (Auto) (0-2) % Lymph # (Auto) (1.2-4.9) X10*3/uL [place] # (Auto) (0.1-1.2) X10*3/uL Eos # (Auto) (0.0-0.4) X10*3/uL Baso # (Auto) (0.0-0.2) X10*3/uL Abs Immat Gran (auto) (0.00-0.03) X10*3/uL Absolute Neuts (auto) (2.0-8.3) x10*3/uL Absolute Nucleated RBC (0.0-0.012) X10*3/uL Nucleated RBC % (auto) (0.0-0.2) /100WBC PT 13.5 H (10.0-13.1) SEC INR 1.2 H (0.9-1.1) Sodium (135-145) mmol/L Potassium (3.3-5.1) mmol/L Chloride (96-108) mmol/L Carbon Dioxide (22-29) mmol/L Anion Gap (12-20) BUN (9-16) mg/dL Creatinine (0.5-1.4) mg/dL Estim Creat Clear Calc Estimated GFR Random Glucose (60-115) mg/dL Lactic Acid 1.7 (0.5-2.0) mmol/L Calcium (8.4-10.2) mg/dL Magnesium (1.6-2.6) mg/dL Total Bilirubin (0.0-1.0) mg/dL AST (5-37) U/L ALT (0-40) U/L Alkaline Phosphatase (39-117) U/L Total Creatine Kinase (38-174) U/L Troponin I High Sens (<3.5-35.0) ng/L B-Natriuretic Peptide (<100) pg/mL Total Protein (6.5-8.0) g/dL Albumin (3.5-5.0) g/dL Ethyl Alcohol mg/dL COVID-19 (NOLAN) Negative (Negative) COVID-19 Clin Com See Note Imaging Data Chest x-ray: Attestation: I personally reviewed and interpreted this imaging study as follows: Radiologist's impression: FINDINGS: The lungs are well-expanded and clear. The heart size enlarged. Pulmonary vascularity is within normal limits. No gross bony abnormality seen. XR/XR chest 1V IMPRESSION: Cardiomegaly. No acute process. ECG Data ECG #1: Attestation: I personally reviewed and interpreted this ECG as follows: ECG interpretation date: 01/18/22 ECG interpretation time: 16:55 Interpretation: Atrial fibrillation with RVR with ventricular rate of 121 with right bundle- branch block no acute ischemic change are noted. Similar compared to prior EKG on 03/25/2021. Critical Care Time Critical Care Time Critical Care Time: Yes Total Critical Care Time: 60 Attestation: I personally attest to this time spent taking care of the patient Discharge Plan Discharge Clinical Impression: Atrial fibrillation with RVR, ARIAN (acute kidney injury), Cardiomegaly Patient Disposition: Still a Patient Prescriptions: No Action loperamide [Imodium A-D] 2 mg capsule 2 mg PO Q6H PRN (Reason: diarrhea) Qty: 30 0RF cyclobenzaprine 10 mg Tablet 10 mg PO TID PRN (Reason: back pain) Qty: 30 0RF diltiazem HCl [Cardizem CD] 180 mg Capsule,Extended Release 24hr 360 mg PO DAILY Qty: 30 0RF Protocol: Hold for SBP/HR < HOLD for SBP < : 90 HOLD for HR < : 60 metoprolol tartrate 100 mg Tablet 100 mg PO BID Qty: 60 0RF Protocol: Hold for SBP/HR < HOLD for SBP < : 90 HOLD for HR < : 60 nystatin 100,000 unit/mL Suspension 500,000 unit PO QID ondansetron 4 mg Tablet,Disintegrating 4 mg PO Q8H PRN (Reason: Nausea And Vomiting) acamprosate 333 mg tablet,delayed release (DR/EC) 2 tab PO TID vilazodone 20 mg Tablet 20 mg PO DAILY omeprazole 20 mg capsule,delayed release(DR/EC) 20 mg PO DAILY Qty: 30 0RF sennosides [Senna Lax] 8.6 mg Tablet 17.2 mg PO BEDTIME Qty: 30 0RF lidocaine [Lidocaine Pain Relief] 4 % Adhesive Patch,Medicated 1 patch transdermal DAILY Qty: 10 0RF Protocol: Apply to: Apply to: back docusate sodium [Colace] 100 mg capsule 100 mg PO DAILY PRN (Reason: constipation) Qty: 30 0RF prednisone 20 mg tablet 20 mg PO DAILY Qty: 5 0RF acetaminophen 325 mg Tablet 650 mg PO Q6H PRN (Reason: Pain, Mild (Pain Scale 1-3)) Qty: 30 0RF oxycodone 5 mg Tablet 5 mg PO Q6H PRN (Reason: Pain, Mild (Pain Scale 1-3)) Qty: 5 0RF prednisone 20 mg tablet 20 mg PO DAILY Qty: 3 0RF Eliquis 5 mg tablet 5 mg PO BID 90 Days Qty: 180 3RF aripiprazole [Abilify] 5 mg tablet 5 mg PO DAILY 90 Days Qty: 90 1RF atorvastatin 40 mg tablet 40 mg PO BEDTIME 90 Days Qty: 90 3RF venlafaxine [Effexor XR] 150 mg capsule,extended release 24hr 150 mg PO DAILY 90 Days Qty: 90 3RF melatonin 3 mg capsule 3 mg PO BEDTIME PRN (Reason: Sleep)
[2022-01-18 18:24] LABS: INTERNATIONAL NORM RATIO 1.2 (0.9-1.1); Prothrombin Time 13.5 SEC (10.0-13.1)
--- OUTSIDE RECORDS SUMMARY | 2022-01-18 18:24 | XMS_ITS | Encounter Summary ---
:1960 Author Care Team Providers Name Role Phone Bambi Kim MD Primary Care Provider [phone] Jose Daria OTHER [phone] [facility] OTHER [phone] Reason for Visit Acute Rounding Visit hyponatremia, [...] mRNA, LNP-S, PF, 30 mcg/0.3 mL dose ([facility]) 07/21/2020 08/18/2020 08/10/2021 pneumococcal, unspecified formulation 02/23/2018 [...] of Y Notes: valid copy on chart, family law attorney? not invoked What was the date [...] Acute Nontraumatic Kidney Injury Iesha Reece PA-C: [address] [place] [address], [place] [address], Ph. 11/09/2021 Drug-induced Hyponatremia; Edema of Lowe r Extremity; Drug-induced Hypokalemia Iesha Reece PA-C: [address] [place] [address], [facility] [place] [address], Ph. 11/02/2021 Edema of Lower Extremity; Drug-induced H yponatremia Iesha Reece PA-C: [address] [place] [address], [place] [phone], Ph. 10/27/2021 Serous Bulla of Skin Iesha Grover IARM Reece-C: [address], [place] [address], Ph. 10/26/2021 Edema of Lower Extremity; Drug-induced H yponatremia Iesha Reece PA-C: [address], [place] [address], Ph. 10/23/2021 Edema of Lower Extremity; Drug-induced H yponatremia; Serous Bulla of Skin Iesha Grover Chevy PA-C: [address], [place] [address], Ph. 10/20/2021 Edema of Lower Extremity; Drug-induced H yponatremia Iesha Grover IRAM Reece-C: [address], [place] [address], Ph. 10/17/2021 Drug-induced Hyponatremia Iesha Grover IRAM Reece-C: [address], [place] [address], Ph. History of Present Illness Note: <div>Pt [...]
--- OUTSIDE RECORDS SUMMARY | 2022-01-18 18:24 | XMS_ITS | Encounter Summary ---
:1960 Author Care Team Providers Name Role Phone Bambi Kim MD Primary Care Provider [phone] Jose Daria OTHER [phone] [facility] OTHER [phone] Reason for Visit Acute Rounding Visit mouth [...] mRNA, LNP-S, PF, 30 mcg/0.3 mL dose ([facility]) 07/21/2020 08/18/2020 08/10/2021 pneumococcal, unspecified formulation 02/23/2018 [...] of Y Notes: valid copy on chart, take away man? not invoked What was the date of [...] Encounters 12/27/2021 Painful Mouth Iesha Reece PA-C: [address] [place], [place] [address] [address], Ph. 12/25/2021 Contusion of Face; Fall on Same Level fr om Slipping, Tripping or Stumbling Iesha Reece PA-C: [address] [place], [place] [address] [address], Ph. 12/19/2021 Edema of Lower Extremity; Drug-induced H yponatremia Iesha Reece PA-C: [address] [place], [place] [address] [address], Ph. 12/08/2021 Chronic Diastolic Heart Failure; Persist ent Atrial Fibrillation; Dyslipidemia; Mixed Anxiety and Depressive Disorder; Hypertensive Disorder; Gastroesophageal Reflux Disease; Chronic Pain; Alcohol Dependence Phyllis Harper MD: [address] [place], [place] [address] [phone], Ph. 12/05/2021 Edema of Lower Extremity; Drug-induced H yponatremia; Always Hungry; Drug-induced Hypokalemia; Persistent Atrial Fibrillation YESSICA TorresC: [address] [place] [address], [place] [address], Ph. History of Present Illness Note: <div>Pt [...]
--- OUTSIDE RECORDS SUMMARY | 2022-01-18 18:24 | XMS_ITS | Encounter Summary ---
:1960 Author Care Team Providers Name Role Phone Bambi Kim MD Primary Care Provider [phone] Jose Daria OTHER [phone] [facility] OTHER [phone] Reason for Visit Routine Rounding routine rounding [...] mRNA, LNP-S, PF, 30 mcg/0.3 mL dose (opentabs) 07/21/2020 08/18/2020 08/10/2021 pneumococcal, unspecified formulation 02/23/2018 [...] of Y Notes: valid copy on chart, deputy commonwealth's attorney? not invoked What was the date [...] Pain; Alcohol Dependence Phyllis Harper MD: [address] [place] [address], [place] [address], Ph. 12/05/2021 Edema of Lower Extremity; Drug-induced H yponatremia; Always Hungry; Drug-induced Hypokalemia; Persistent Atrial Fibrillation YESSICA TorresC: [address] [place] [address], [place] [address], Ph. 11/24/2021 Malaise Iesha Reece PA-C: [address] [place] [address], [place] [address], Ph. 11/23/2021 Malaise; Edema of Lower Extremity; Drug- induced Hyponatremia; Drug-induced Hypokalemia; Acute Nontraumatic Kidney Injury Iesha Reece PA-C: [address] [place] [address], [place] [address], Ph. 11/17/2021 Edema of Lower Extremity; Drug-induced H yponatremia; Acute Nontraumatic Kidney Injury Iesha Reece PA-C: [address] [place] [address], [place] [address], Ph. 11/09/2021 Drug-induced Hyponatremia; Edema of Lowe r Extremity; Drug-induced Hypokalemia Iesha Reece PA-C: [address] [place] [address], [place] [phone], Ph. 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
--- OUTSIDE RECORDS SUMMARY | 2022-01-18 18:24 | XMS_ITS | Encounter Summary ---
:1960 Author Care Team Providers Name Role Phone Bambi Kim MD Primary Care Provider [phone] Jose Daria OTHER [phone] [facility] ([facility] Unit) OTHER [phone] Reason for Visit Acute Rounding Visit general [...] mRNA, LNP-S, PF, 30 mcg/0.3 mL dose ([employer]) 07/21/2020 08/18/2020 08/10/2021 pneumococcal, unspecified formulation 02/23/2018 Notes: Immunizations reconciled as of 08/11/21 Refused seasonal influenza PCV20 ordered Social History Tobacco Smoking Status Never Smoker Has tobacco cessation counseling N Notes: N/A been provided? Do you have a medical power of Y Notes: valid copy on chart, deputy attorney general? not invoked What was the date of your most 05/02/2021 recent tobacco screening? Do you have an advanced directive? N How many years have you consumed 30 alcohol? Do you use any illicit or N recreational drugs? What is your level of alcohol Moderate consumption? How many times per week do you 5-7 times per week consume alcohol? Legal Guardian? N Do you have an [...] Acute Nontraumatic Kidney Injury Iesha Reece PA-C: [address] [place], [place] [address] [address], Ph. 11/17/2021 Edema of Lower Extremity; Drug-induced H yponatremia; Acute Nontraumatic Kidney Injury Iesha Reece PA-C: [address] [place] [address], [place] [address], Ph. 11/09/2021 Drug-induced Hyponatremia; Edema of Lowe r Extremity; Drug-induced Hypokalemia Iesha ReeceIRAM-C: [address], [place] [address], Ph. 11/02/2021 Edema of Lower Extremity; Drug-induced H yponatremia Iesha Grover IRAM Reece-C: [address], [place] [address], Ph. 10/27/2021 Serous Bulla of Skin Iesha ReeceIRAM-C: [address], [place] [address], Ph. 10/26/2021 Edema of Lower Extremity; Drug-induced H yponatremia Iesha ReeceIRAM-C: [address], [place] [address], Ph. 10/23/2021 Edema of Lower Extremity; Drug-induced H yponatremia; Serous Bulla of Skin Iesha ReeceIRAM-C: [address], [place] [address], Ph. 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
</d [...]
--- OUTSIDE RECORDS SUMMARY | 2022-01-18 18:24 | XMS_ITS | Encounter Summary ---
:1960 Author Care Team Providers Name Role Phone Bambi Kim MD Primary Care Provider [phone] Jose Daria OTHER [phone] [facility] ([facility]) OTHER [phone] Reason for Visit Acute Rounding Visit ED [...] mRNA, LNP-S, PF, 30 mcg/0.3 mL dose ([employer] 07/21/2020 08/18/2020 08/10/2021 pneumococcal, unspecified formulation 02/23/2018 [...] of Y Notes: valid copy on chart, business attorney? not invoked What was the date [...] Slipping, Tripping or Stumbling Iesha Reece PA-C: [address] [place], [place] [address] [address], Ph. 12/19/2021 Edema of Lower Extremity; Drug-induced H yponatremia Iesha Reece PA-C: [address] [place], [place] [address] [address], Ph. 12/08/2021 Chronic Diastolic Heart Failure; Persist ent Atrial Fibrillation; Dyslipidemia; Mixed Anxiety and Depressive Disorder; Hypertensive Disorder; Gastroesophageal Reflux Disease; Chronic Pain; Alcohol Dependence Phyllis Harper MD: [address] [place], [place] [address] [address], Ph. 12/05/2021 Edema of Lower Extremity; Drug-induced H yponatremia; Always Hungry; Drug-induced Hypokalemia; Persistent Atrial Fibrillation Iesha Reece PA-C: [address] [place], [place] [address], [place], [place] [address], Ph. 11/24/2021 Malaise Iesha Reece PA-C: [address] [place] [address], [place] [address], Ph. History of Present Illness Note: <div>Pt seen today for acute rounding visit for ED f/u.</div><div>
</d iv><div>Pt sent to [facility] ED overnight for eval of fall. 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
</ div><div>
</div><div>Recent diagnostics:</div><div>12/25 @ [facility] ED:</div><div>Brain CT- NAD: chronic small vessel ischemic change s</div><div>CT c-spine NAD; multilevel DDD</div><div>CT face NAD</d iv><div>EKG: sinus at 65; QTc 449</div><div>POC 95, 95</div>
--- OUTSIDE RECORDS SUMMARY | 2022-01-18 18:24 | XMS_ITS | Encounter Summary ---
:1960 Author Care Team Providers Name Role Phone Bambi Kim MD Primary Care Provider [phone] Jose Daria OTHER [phone] [facility] ([facility] Unit) OTHER [phone] Reason for Visit Acute Rounding Visit RLE edema, hunger Assessment and Plan 1. Edema of lower extremity Chronically asymmetric with R >L Back to baseline No evidence of cellulitis Increase RLE dressing changes to bid due to increased drainage -wound CLIENT SERVICES VICE PRESIDENT following 2. Drug-induced hyponatremia near-normal with increased [...] mRNA, LNP-S, PF, 30 mcg/0.3 mL dose ([employer]) 07/21/2020 08/18/2020 08/10/2021 pneumococcal, unspecified formulation 02/23/2018 [...] of Y Notes: valid copy on chart, banking attorney? not invoked What was the date [...] Hypokalemia; Persistent Atrial Fibrillation Iesha Reece PA-C: [address] [place] [address], Ph. 11/24/2021 Malaise Iesha Reece PA-C: [address] [place], [place] [address] [address], Ph. 11/23/2021 Malaise; Edema of Lower Extremity; Drug- induced Hyponatremia; Drug-induced Hypokalemia; Acute Nontraumatic Kidney Injury Iesha Reece PA-C: [address] [address], Ph. 11/17/2021 Edema of Lower Extremity; Drug-induced H yponatremia; Acute Nontraumatic Kidney Injury Iesha Reece PA-C: [address] [place] [address], [place] [address], Ph. 11/09/2021 Drug-induced Hyponatremia; Edema of Lowe r Extremity; Drug-induced Hypokalemia Iesha Reece PA-C: [address] [place] [address], [facility] [place] [address], Ph. History of Present Illness Note: <div>Pt seen for acute rounding visit today for RLE edema and hunger.</div><div>
</div><div>Pt being followed for RLE edema. See prior note for details. Divalents being carefully monitored due to hyponatremia and hypokalemia secondary to diuretics. Had bullae from edema RLE, which have since ruptured. Wound CLIENT SERVICES VICE PRESIDENT follows him for this. Concerned that RLE [...] since seen this am b y wound CLIENT SERVICES VICE PRESIDENT.</div><div>
</div><div>Recent diagnostics:</div><div>12/05 @ 0800: (unclear why drawn [...]
--- OUTSIDE RECORDS SUMMARY | 2022-01-18 18:24 | XMS_ITS | Encounter Summary ---
:1960 Author Care Team Providers Name Role Phone Bambi Kim MD Primary Care Provider [phone] Jose Daria OTHER [phone] [facility] ([facility] Unit) OTHER [phone] Reason for Visit Acute Rounding Visit f/u [...] mRNA, LNP-S, PF, 30 mcg/0.3 mL dose ([employer]) 07/21/2020 08/18/2020 08/10/2021 pneumococcal, unspecified formulation 02/23/2018 [...] of Y Notes: valid copy on chart, foam dispenser? not invoked What was the date of your most 05/02/2021 recent tobacco screening? Do you have an advanced directive? N Do you have an out of hospital DNR? N Legal Guardian? N Do you or have you ever [...] Past Encounters 11/24/2021 Malaise Iesha Reece PA-C: [address] [place] [address] [place] [address], Ph. 11/23/2021 Malaise; Edema of Lower Extremity; Drug- induced Hyponatremia; Drug-induced Hypokalemia; Acute Nontraumatic Kidney Injury Iesha Reece PA-C: [address] [place] [address] [place] [address], Ph. 11/17/2021 Edema of Lower Extremity; Drug-induced H yponatremia; Acute Nontraumatic Kidney Injury Iesha Reece PA-C: [address] [place] [address] [place] [address], Ph. 11/09/2021 Drug-induced Hyponatremia; Edema of Lowe r Extremity; Drug-induced Hypokalemia Iesha Reece PA-C: [address] [place] [address] [place] [address], Ph. 11/02/2021 Edema of Lower Extremity; Drug-induced H yponatremia YESSICA TorresC: [address], [place] [address], Ph. 10/27/2021 Serous Bulla of Skin YESSICA TorresC: [address], [place] [address], Ph. 10/26/2021 Edema of Lower Extremity; Drug-induced H yponatremia YESSICA TorresC: [address], [place] [address], Ph. History of Present Illness Note: <div>Pt [...]
--- OUTSIDE RECORDS SUMMARY | 2022-01-18 18:24 | XMS_ITS | Encounter Summary ---
:1960 Author Care Team Providers Name Role Phone Bambi Kim MD Primary Care Provider [phone] Jose Daria OTHER [phone] [facility] ([facility]) OTHER [phone] Reason for Visit Acute Rounding Visit RLE [...] mRNA, LNP-S, PF, 30 mcg/0.3 mL dose ([employer]) 07/21/2020 08/18/2020 08/10/2021 pneumococcal, unspecified formulation 02/23/2018 [...] of Right Lower Limb Iesha Reece PA-C: [address] [place] [address] [facility] [address], Ph. 12/27/2021 Painful Mouth Iesha Reece PA-C: [address] [place] [address] [place] [address], Ph. 12/25/2021 Contusion of Face; Fall on Same Level fr om Slipping, Tripping or Stumbling Iesha Reece PA-C: [address] [place] [address] [place] [address], Ph. 12/19/2021 Edema of Lower Extremity; Drug-induced H yponatremia Iesha Reece PA-C: [address] [place] [address] [place] [address], Ph. 12/08/2021 Chronic Diastolic Heart Failure; Persist ent Atrial Fibrillation; Dyslipidemia; Mixed Anxiety and Depressive Disorder; Hypertensive Disorder; Gastroesophageal Reflux Disease; Chronic Pain; Alcohol Dependence Phyllis Harper MD: [address] [place] [address], [place] [address], Ph. 12/05/2021 Edema of Lower Extremity; Drug-induced H yponatremia; Always Hungry; Drug-induced Hypokalemia; Persistent Atrial Fibrillation Iesha Reece PA-C: [address] [place] [address], [place] [address], Ph. History of Present Illness Note: <div>Pt seen today for acute rounding visit for RLE cellulitis.</div><div>
</div><div>Asked to see pt for the above. Was seen this am by wound TRANSPORTATION REFRIGERATION TECHNICIAN for RLE open area from site of [...]
--- OUTSIDE RECORDS SUMMARY | 2022-01-18 18:24 | XMS_ITS | Encounter Summary ---
:1960 Author Care Team Providers Name Role Phone Bambi Kim MD Primary Care Provider [phone] Jose Daria OTHER [phone] [facility] ([facility]) OTHER [phone] Reason for Visit Acute Rounding Visit RLE [...] mRNA, LNP-S, PF, 30 mcg/0.3 mL dose ([employer]) 07/21/2020 08/18/2020 08/10/2021 pneumococcal, unspecified formulation 02/23/2018 Notes: Immunizations reconciled as of 08/11/21 Refused seasonal influenza PCV20 ordered Social History Tobacco Smoking Status Never Smoker Do you have a medical power of Y Notes: valid copy on chart, mastic sprayer? not invoked What is your level of alcohol Moderate consumption? Do you have an out of hospital [...] r Extremity; Drug-induced Hypokalemia Iesha Reece PA-C: [address] [place] [address], [place] [address], Ph. 11/02/2021 Edema of Lower Extremity; Drug-induced H yponatremia Iesha Reece PA-C: [address] [place] [address], [facility] [place] [address], Ph. 10/27/2021 Serous Bulla of Skin Iesha Reece PA-C: [address] [place] [address], [place] [address], Ph. 10/26/2021 Edema of Lower Extremity; Drug-induced H yponatremia Iesha Reilly YESSICA ReeceC: [address], [place] [address], Ph. 10/23/2021 Edema of Lower Extremity; Drug-induced H yponatremia; Serous Bulla of Skin YESSICA TorresC: [address], [place] [address], Ph. 10/20/2021 Edema of Lower Extremity; Drug-induced H yponatremia YESSICA TorresC: [address], [place] [address], Ph. 10/17/2021 Drug-induced Hyponatremia YESSICA TorresC: [address], [place] [address], Ph. 10/13/2021 Chronic Hyponatremia; Edema of Lower Ext remity YESSICA TorresC: [address], [place] [address], Ph. 10/11/2021 Drug-induced Hyponatremia; Chronic Diast olic Heart Failure; Persistent Atrial Fibrillation; Edema of Lower Extremity; Obstructive Sleep Apnea Syndrome; Venous Stasis Ulcer with Edema of Right Lower Leg YESSICA TorresC: [address], [place] [address], Ph. History of Present Illness Note: <div>Pt [...]
--- OUTSIDE RECORDS SUMMARY | 2022-01-18 18:24 | XMS_ITS | Encounter Summary ---
:1960 Author Care Team Providers Name Role Phone Bambi Kim MD Primary Care Provider [phone] Jose Daria OTHER [phone] [facility] ([facility] Unit) OTHER [phone] Reason for Visit Acute Rounding Visit f/u [...] mRNA, LNP-S, PF, 30 mcg/0.3 mL dose ([employer]) 07/21/2020 08/18/2020 08/10/2021 pneumococcal, unspecified formulation 02/23/2018 [...] per week consume alcohol? Do you have an out of hospital [...] Drug-induced H yponatremia Iesha Reece PA-C: [address] [place] [address], [place] [address], Ph. 10/27/2021 Serous Bulla of Skin Iesha Reece PA-C: [address] [place] [address], [place] [address], Ph. 10/26/2021 Edema of Lower Extremity; Drug-induced H yponatremia eIsha Reece PA-C: [address] [place] [address], [facility] [place] [address], Ph. 10/23/2021 Edema of Lower Extremity; Drug-induced H yponatremia; Serous Bulla of Skin Iesha Reece PA-C: [address] [place] [address], [facility] [place] [address], Ph. 10/20/2021 Edema of Lower Extremity; Drug-induced H yponatremia YESSICA TorresC: [address], [place] [address], Ph. 10/17/2021 Drug-induced Hyponatremia YESSICA TorresC: [address], [place] [address], Ph. 10/13/2021 Chronic Hyponatremia; Edema of Lower Ext remity YESSICA TorresC: [address], [place] [address], Ph. 10/11/2021 Drug-induced Hyponatremia; Chronic Diast olic Heart Failure; Persistent Atrial Fibrillation; Edema of Lower Extremity; Obstructive Sleep Apnea Syndrome; Venous Stasis Ulcer with Edema of Right Lower Leg YESSICA TorresC: [address], [place] [address], Ph. 10/03/2021 Drug-induced Hyponatremia YESSICA TorresC: [address], [place] [address], Ph. History of Present Illness Note: <div>Pt seen for acute rounding visit today for f/u RLE edema.</div><div>
</div><div>Pt being followed for the above. See prior notes for details. Seen last weekfor edema with bulla. Edema at that time had improved with increased Lasix. Blister burst spontaneously last week. 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 No evidence of infection when seen last [...]
--- OUTSIDE RECORDS SUMMARY | 2022-01-18 18:24 | XMS_ITS ---
:1960 Author Care Team Providers Name Role Phone MATTHEW MARTINES MD Primary Care Provider [phone] JASWANT PAYNE OTHER [phone] [facility] ([facility]) OTHER [phone] Allergies Code Code System Name Reaction Severity [...] Past Encounters 01/16/2022 Iesha Reece PA-C: [address], [facility] [place] [address], Ph. 01/08/2022 Iesha Reece PA-C: [address], [place] [address], Ph. 12/28/2021 Cellulitis of Right Lower Limb Iesha Reece PA-C: [address], [place] [address], Ph. 12/27/2021 Painful Mouth Iesha Reece PA-C: [address] [place] [address], [place] [address], Ph. 12/25/2021 Contusion of Face; Fall on Same Level fr om Slipping, Tripping or Stumbling Iesha Reece PA-C: [address] [place] [place] [address], [place] [address], Ph. 12/19/2021 Edema of Lower Extremity; Drug-induced H yponatremia Iesha Reece PA-C: [address] [place] [address], [place] [address], Ph. 12/08/2021 Chronic Diastolic Heart Failure; Persist ent Atrial Fibrillation; Dyslipidemia; Mixed Anxiety and Depressive Disorder; Hypertensive Disorder; Gastroesophageal Reflux Disease; Chronic Pain; Alcohol Dependence Phyllis Harper MD: [address] [place] [address], [place] [address], Ph. 12/05/2021 Edema of Lower Extremity; Drug-induced H yponatremia; Always Hungry; Drug-induced Hypokalemia; Persistent Atrial Fibrillation Iesha Reece PA-C: [address] [place] [address], [place] [address], Ph. 11/24/2021 Malaise Iesha Reece PA-C: [address] [place] [address], [place] [address], Ph. 11/23/2021 Malaise; Edema of Lower Extremity; Drug- induced Hyponatremia; Drug-induced Hypokalemia; Acute Nontraumatic Kidney Injury Iesha Reece PA-C: [address] [place] [address], [place] [address], Ph. 11/17/2021 Edema of Lower Extremity; Drug-induced H yponatremia; Acute Nontraumatic Kidney Injury Iesha Reece PA-C: [address] [place] [address], [place] [address], Ph. 11/09/2021 Drug-induced Hyponatremia; Edema of Lowe r Extremity; Drug-induced Hypokalemia Iesha H Reece, PA-C: [address], [place] [address], Ph. 11/02/2021 Edema of Lower Extremity; Drug-induced H yponatremia Iesha Grover IRAM Reece-C: [address], [place] [address], Ph. 10/27/2021 Serous Bulla of Skin Iesha Grover Chevy PA-C: [address], [place] [address], Ph. 10/26/2021 Edema of Lower Extremity; Drug-induced H yponatremia Iesha Reece PA-C: [address], [place] [address], Ph. 10/23/2021 Edema of Lower Extremity; Drug-induced H yponatremia; Serous Bulla of Skin Iesha H IRAM Reece-C: [address], [place] [address], Ph. 10/20/2021 Edema of Lower Extremity; Drug-induced H yponatremia Iesha Grover IRAM Reece-C: [address], [place] [address], Ph. 10/17/2021 Drug-induced Hyponatremia Iesha Grover IRAM Reece-C: [address], [place] [address], Ph. 10/13/2021 Chronic Hyponatremia; Edema of Lower Ext remity Iesha Reilly IRAM Reece-C: [address], [place] [address], Ph. 10/11/2021 Drug-induced Hyponatremia; Chronic Diast olic Heart Failure; Persistent Atrial Fibrillation; Edema of Lower Extremity; Obstructive Sleep Apnea Syndrome; Venous Stasis Ulcer with Edema of Right Lower Leg Iesha Reilly IRAM Reece-C: [address], [place] [address], Ph. 10/03/2021 Drug-induced Hyponatremia Iesha Reilly IRAM Reece-C: [address], [place] [address], Ph. 09/27/2021 Drug-induced Hyponatremia Iesha Reece PA-C: [address], [place] [address], Ph. 09/26/2021 Edema of Lower Extremity; Drug-induced H yponatremia; Drug-induced Hypokalemia; Azotemia Iesha Reece PA-C: [address], [place] [address], Ph. 09/19/2021 Edema of Lower Extremity; Chronic Diasto lic Heart Failure; Persistent Atrial Fibrillation; Orthopnea; Obstructive Sleep Apnea Syndrome Iesha Reece PA-C: [address], [place] [address], Ph. 09/07/2021 Edema of Lower Extremity; Drug-induced H ypokalemia Iesha Reece PA-C: [address], [place] [address], Ph. 09/06/2021 Edema of Lower Extremity; Persistent Atr ial Fibrillation Iesha Reece PA-C: [address], [place] [address], Ph. 09/01/2021 Edema of Lower Extremity; Drug-induced H ypokalemia Iesha Reece PA-C: [address], [place] [address], Ph. 08/30/2021 Edema of Lower Extremity Iesha Reece PA-C: [address], [place] [address], Ph. 08/29/2021 Edema of Lower Extremity; Drug-induced H ypokalemia; Persistent Atrial Fibrillation Iesha Reece PA-C: [address], [place] [address], Ph. 08/24/2021 Edema of Lower Extremity; Drug-induced H ypokalemia; Chronic Diastolic Heart Failure; Persistent Atrial Fibrillation Iesha Reece PA-C: [address], [place] [address], Ph. 08/22/2021 Edema of Lower Extremity; Drug-induced H ypokalemia Iesha Reece PA-C: [address], [place] [address], Ph. 08/21/2021 Edema of Lower Extremity; Insomnia Co-oc current and Due to Medical Condition; Fall on Same Level from Slipping, Tripping or Stumbling Iesha Reece PA-C: [address], [place] [address], Ph. 08/18/2021 Chronic Diastolic Heart Failure; Chronic Sciatica; Persistent Atrial Fibrillation; Alcohol Dependence; Mixed Anxiety and Depressive Disorder; Hyperlipidemia; Peripheral Edema Phyllis Harper MD: [address], [place] [address], Ph. 08/17/2021 Edema of Lower Extremity; Chronic Diasto lic Heart Failure; Persistent Atrial Fibrillation Iesha Reece PA-C: [address], [place] [address], Ph. 08/14/2021 Edema of Lower Extremity; Pain in Right Lower Limb; Longstanding Persistent Atrial Fibrillation Iesha Reece PA-C: [address], [place] [address], Ph. 08/11/2021 Edema of Lower Extremity Iesha Reece PA-C: [address], [place] [address], Ph. 08/09/2021 Chronic Diastolic Heart Failure; Edema o f Lower Extremity; Persistent Atrial Fibrillation Iesha Reece PA-C: [address], [place] [address], Ph. 08/07/2021 Chronic Diastolic Heart Failure; Edema o f Lower Extremity; Persistent Atrial Fibrillation Iesha Reece PA-C: [address], [place] [address], Ph. 08/04/2021 Chronic Diastolic Heart Failure; Persist ent Atrial Fibrillation Iesha Reece PA-C: [address], [place] [address], Ph. 08/03/2021 Acute on Chronic Diastolic Heart Failure ; Pain in Right Lower Limb; Persistent Atrial Fibrillation YESSICA TorresC: [address], [place] [address], Ph. 08/02/2021 Edema of Lower Extremity; Acute on Chron ic Diastolic Heart Failure YESSICA TorresC: [address], [place] [address], Ph. 08/01/2021 Edema of Lower Extremity; Acute on Chron ic Diastolic Heart Failure YESSICA TorresC: [address], [place] [address], Ph. 07/31/2021 Weight Gain; Edema of Lower Extremity; C hronic Diastolic Heart Failure; Orthopnea; Persistent Atrial Fibrillation; Drug-induced Hypokalemia YESSICA TorresC: [address], [place] [address], Ph. 07/28/2021 Weight Gain; Obstructive Sleep Apnea Syn drome; Drug-induced Hypokalemia; Persistent Atrial Fibrillation YESSICA TorresC: [address], [place] [address], Ph. 07/27/2021 Weight Gain; Drug-induced Hypokalemia YESSICA TorresC: [address], [place] [address], Ph. 07/26/2021 Chronic Diastolic Heart Failure; Chronic Sciatica; Alcohol Dependence; Persistent Atrial Fibrillation; Gastroesophageal Reflux Disease; Hypertensive Disorder; Mixed Anxiety and Depressive Disorder; Peripheral Edema Phyllis Harper MD: [address], [place] [address], Ph. 07/25/2021 Dyspnea; Edema of Lower Extremity Iesha Reece PA-C: [address], [place] [address], Ph. 07/24/2021 Chronic Diastolic Heart Failure; Drug-in duced Hypokalemia; Longstanding Persistent Atrial Fibrillation; Obstructive Sleep Apnea Syndrome Iesha Reece PA-C: [address], [place] [address], Ph. 07/21/2021 Obstructive Sleep Apnea Syndrome; Edema of Lower Extremity; Chronic Diastolic Heart Failure; Drug-induced Hypokalemia Iesha Reece PA-C: [address], [place] [address], Ph. 07/20/2021 Obstructive Sleep Apnea Syndrome Iesha Reece PA-C: [address], [place] [address], Ph. 07/19/2021 Drug-induced Hypokalemia; Acute on Chron ic Diastolic Heart Failure; Orthopnea; Persistent Atrial Fibrillation; Hyponatremia Iesha Reece PA-C: [address], [place] [address], Ph. 07/17/2021 Edema of Lower Extremity; Acute on Chron ic Diastolic Heart Failure; Drug-induced Hypokalemia; Persistent Atrial Fibrillation; Chronic Pain Syndrome Iesha Reece PA-C: [address], [place] [address], Ph. 07/13/2021 Acute on Chronic Diastolic Heart Failure ; Edema of Lower Extremity; Drug-induced Hypokalemia; Persistent Atrial Fibrillation Iesha Reece PA-C: [address], [place] [address], Ph. 07/10/2021 Persistent Atrial Fibrillation Iesha Reece PA-C: [address], [place] [address], Ph. 07/07/2021 Acute on Chronic Diastolic Heart Failure Iesha Reece PA-C: [address], [place] [address], Ph. 07/06/2021 Weight Gain; Drug-induced Hypokalemia Iesha Reece PA-C: [address], [place] [address], Ph. 07/04/2021 Acute on Chronic Diastolic Heart Failure ; Drug-induced Hypokalemia; Persistent Atrial Fibrillation; Dyspnea Iesha Reece PA-C: [address], [place] [address], Ph. 07/03/2021 Chronic Diastolic Heart Failure; Drug-in duced Hypokalemia; Pain in Right Foot Gayle NorrisDANIELLAP: [address], [place] [address], Ph. 06/27/2021 Chronic Diastolic Heart Failure; Drug-in duced Hypokalemia; Tachycardia; Dyspnea Iesha Reece PA-C: [address], [place] [address], Ph. 06/23/2021 Chronic Diastolic Heart Failure Iesha Reece PA-C: [address], [place] [address], Ph. 06/22/2021 Acute on Chronic Diastolic Heart Failure ; Persistent Atrial Fibrillation; Edema of Lower Extremity; Chronic Anemia; Chronic Cough Iesha Reece PA-C: [address], [place] [address], Ph. 06/16/2021 Acute on Chronic Diastolic Heart Failure ; Persistent Atrial Fibrillation Iesha Reece PA-C: [address], [place] [address], Ph. 06/13/2021 Acute on Chronic Diastolic Heart Failure Iesha Reece PA-C: [address], [place] [address], Ph. 06/12/2021 Acute on Chronic Diastolic Heart Failure ; Persistent Atrial Fibrillation Iesha Reece PA-C: [address], [place] [address], Ph. 06/08/2021 Acute on Chronic Diastolic Heart Failure Iesha Reece PA-C: [address], [place] [address], Ph. 06/06/2021 Acute on Chronic Diastolic Heart Failure ; Edema of Lower Extremity Iesha Reece PA-C: [address], [place] [address], Ph. 06/05/2021 Edema of Lower Extremity; Acute on Chron ic Diastolic Heart Failure; Benign Prostatic Hyperplasia without Outflow Obstruction; Insomnia Co-occurrent and Due to Medical Condition Iesha Reece PA-C: [facility] [address], [facility] [place] [address], Ph. 05/31/2021 Acute on Chronic Diastolic Heart Failure Iesha Reece PA-C: [address], [place] [place] [address], Ph. 05/30/2021 Acute on Chronic Diastolic Heart Failure Iesha Reece PA-C: [facility] [address], [facility] [place] [address], Ph. 05/29/2021 Acute on Chronic Diastolic Heart Failure ; Anemia; Persistent Atrial Fibrillation; Edema of Lower Extremity Iesha Reece PA-C: [address] [place] [address], [facility] [place] [address], Ph. 05/26/2021 Chronic Diastolic Heart Failure; Alcohol Dependence; Chronic Sciatica; Dyslipidemia; Hypertensive Disorder; Persistent Atrial Fibrillation; Primary Insomnia; Benign Prostatic Hyperplasia without Outflow Obstruction; Peripheral Edema Phyllis Harper MD: [address] [place] [address], Ph. 05/24/2021 Edema of Lower Extremity; Increased Freq uency of Urination DANIELLA ConradP: [address] [place] [address], Ph. 05/17/2021 Edema of Lower Extremity; Increased Freq uency of Urination; SARS-CoV-2 AMA Conrad: [address] [place] [address], Ph. 05/15/2021 Edema of Lower Extremity AMA Conrad: [address] [place] [address], Ph. 05/01/2021 Weight Loss; Covid-19; Persistent Atrial Fibrillation Iesha Reece PA-C: [facility] [address], [facility] [place] [address], Ph. 04/28/2021 Covid-19; Anemia Iesha Reece PA-C: [address] [place] [address], [facility] [address], Ph. 04/27/2021 SARS-CoV-2 Tori Batistazak [facility]: [address] [place] [address], [place] [address], Ph. 04/26/2021 Edema Tori Mayaforeign [place] [facility]: [address] [place] [address], [place] [address], Ph. 04/21/2021 Chronic Low Back Pain; Recurrent Falls Iesha Reece PA-C: [address] [place] [address], [facility] [place] [address], Ph. 04/06/2021 Altered Mental Status Iesha Reece PA-C: [address] [place] [address], [facility] [place] [address], Ph. 04/04/2021 Chronic Sciatica; Insomnia Co-occurrent and Due to Medical Condition; Weight Loss; Persistent Atrial Fibrillation; Chronic Diastolic Heart Failure Iesha Reece PA-C: [address] [place] [address], [place] [address], Ph. 03/31/2021 Alcohol Dependence; Chronic Sciatica; Dy slipidemia; Gastroesophageal Reflux Disease; Hypertensive Disorder; Persistent Atrial Fibrillation; Mixed Anxiety and Depressive Disorder; Chronic Diastolic Heart Failure Phyllis Harper MD: [address] [place] [address], [place] [address], Ph. 03/29/2021 Persistent Atrial Fibrillation; Hyperten sive Disorder; Dyslipidemia; Chronic Diastolic Heart Failure; Pulmonary Embolism; Anemia; Major Depressive Disorder; Anxiety; Aneurysm of Thoracic Aorta; Alcohol Dependence; Chronic Sciatica; Gastroesop hageal Reflux Disease; Constipation; Dry Skin Tori Ca [place] [facility]: [address] [place] [address], [place] [address], Ph. 03/22/2021 Persistent Atrial Fibrillation; Chronic Sciatica; Chronic Diastolic Heart Failure Iesha Reece PA-C: [address] [place] [address], Ph. 03/20/2021 Insomnia Co-occurrent and Due to Medical Condition; Alcoholic Hepatitis; Chronic Sciatica; Persistent Atrial Fibrillation; Pulmonary Embolism; Chronic Diastolic Heart Failure; Anemia; Alcohol Dependence ; Dyslipidemia; Major Depressive Disorde r; Irreducible Incisional Hernia DANIELLA ConradP: [address] [place] [address], Ph. 03/16/2021 Persistent Atrial Fibrillation; Alcoholi c Hepatitis; Asthenia; Chronic Sciatica; Insomnia; Pulmonary Embolism; Chronic Diastolic Heart Failure; Anemia; Alcohol Dependence; Dyslipidemia; Major Depressive Disorder; Irreducible Incisional Hernia ; Altered Mental Status Allegra Peterson MD: [address] [place] [address], Ph. 03/14/2021 Insomnia Co-occurrent and Due to Medical Condition; Alcoholic Hepatitis; Chronic Sciatica YESSICA TorresC: [address] [place] [address], Ph. 03/13/2021 Persistent Atrial Fibrillation; Pulmonar y Embolism; Chronic Sciatica; Chronic Diastolic Heart Failure; Candidiasis of Mouth; Anemia; Alcoholic Hepatitis; Alcohol Dependence; Dyslipidemia; Insomnia Co-oc current and Due to Medical Condition; Ma josé Depressive Disorder; Irreducible Incisional Hernia; Altered Mental Status Iesha Reece PA-C: [address] [place] [address], Ph. Social History Tobacco Smoking Status Never Smoker Vaccine List Vaccine Type COVID-19, mRNA, LNP-S, PF, 30 mcg/0.3 mL dose (Gtxh) 07/21/2020 08/18/2020 08/10/2021 pneumococcal, unspecified formulation 02/23/2018 [...]
--- OUTSIDE RECORDS SUMMARY | 2022-01-18 18:24 | XMS_ITS | Encounter Summary ---
:1960 Author Care Team Providers Name Role Phone Bambi Kim MD Primary Care Provider [phone] Jose Daria OTHER [phone] [facility] OTHER [phone] Reason for Visit Acute Rounding Visit RLE [...] mRNA, LNP-S, PF, 30 mcg/0.3 mL dose (LYYN) 07/21/2020 08/18/2020 08/10/2021 pneumococcal, unspecified formulation 02/23/2018 [...] of Y Notes: valid copy on chart, attorney at law? not invoked What was the date of [...] Lower Extremity; Drug-induced H yponatremia YESSICA TorresC: [address] [place], [place] [address] [address], Ph. 12/08/2021 Chronic Diastolic Heart Failure; Persist ent Atrial Fibrillation; Dyslipidemia; Mixed Anxiety and Depressive Disorder; Hypertensive Disorder; Gastroesophageal Reflux Disease; Chronic Pain; Alcohol Dependence Phyllis Harper MD: [address] [place], [place] [address] [address], Ph. 12/05/2021 Edema of Lower Extremity; Drug-induced H yponatremia; Always Hungry; Drug-induced Hypokalemia; Persistent Atrial Fibrillation YESSICA TorresC: [address] [place], [place] [address] [address], Ph. 11/24/2021 Malaise Iesha Reece PA-C: [address] [place] [address], [place] [address], Ph. 11/23/2021 Malaise; Edema of Lower Extremity; Drug- induced Hyponatremia; Drug-induced Hypokalemia; Acute Nontraumatic Kidney Injury Iesha Reece PA-C: [address] [place] [address], [place] [address], Ph. History of Present Illness Note: <div>Pt [...]
[2022-01-18 18:25] LABS: Lactic Acid 1.7 mmol/L (0.5-2.0)
--- OUTSIDE RECORDS SUMMARY | 2022-01-18 18:25 | XMS_ITS | Encounter Summary ---
:1960 Author Care Team Providers Name Role Phone Bambi Kim MD Primary Care Provider [phone] Jose Daria OTHER [phone] [facility] OTHER [phone] Reason for Visit Acute Rounding Visit RLE open area Assessment and Plan 1. 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 not invoked What was the date [...] Serous Bulla of Skin Iesha Reece PA-C: [address] [place] [address], [place] [address], Ph. 10/26/2021 Edema of Lower Extremity; Drug-induced H yponatremia Iesha Reece PA-C: [address] [place] [address], [place] [address], Ph. 10/23/2021 Edema of Lower Extremity; Drug-induced H yponatremia; Serous Bulla of Skin Iesha Reece PA-C: [address] [place] [address], [place] [address], Ph. 10/20/2021 Edema of Lower Extremity; Drug-induced H yponatremia Iesha Reece PA-C: [address] [place] [address], [place] [address], Ph. 10/17/2021 Drug-induced Hyponatremia Iesha Reece PA-C: [address], [place] [address], Ph. 10/13/2021 Chronic Hyponatremia; Edema of Lower Ext remity Iesha Reece PA-C: [address], [place] [address], Ph. 10/11/2021 Drug-induced Hyponatremia; Chronic Diast olic Heart Failure; Persistent Atrial Fibrillation; Edema of Lower Extremity; Obstructive Sleep Apnea Syndrome; Venous Stasis Ulcer with Edema of Right Lower Leg Iesha Reece PA-C: [address], [place] [address], Ph. 10/03/2021 Drug-induced Hyponatremia Iesha Reece PA-C: [address], [place] [address], Ph. 09/27/2021 Drug-induced Hyponatremia Iesha Reece PA-C: [address], [place] [address], Ph. History of Present Illness Note: <div>Pt [...]
--- OUTSIDE RECORDS SUMMARY | 2022-01-18 18:25 | XMS_ITS | Encounter Summary ---
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 not invoked What was the date [...] Serous Bulla of Skin Iesha Reece PA-C: [address] [place] [address], [facility] [place] [address], Ph. 10/20/2021 Edema of Lower Extremity; Drug-induced H yponatremia Iesha Reece PA-C: [address] [place], [place] [address] [address], Ph. 10/17/2021 Drug-induced Hyponatremia Iesha Reece PA-C: [address] [place], [place] [address], Ph. 10/13/2021 Chronic Hyponatremia; Edema of Lower Ext remity Iesha Reece PA-C: [address], [place] [address], Ph. 10/11/2021 Drug-induced Hyponatremia; Chronic Diast olic Heart Failure; Persistent Atrial Fibrillation; Edema of Lower Extremity; Obstructive Sleep Apnea Syndrome; Venous Stasis Ulcer with Edema of Right Lower Leg Iesha Reece PA-C: [address] [place], [place] [address], Ph. 10/03/2021 Drug-induced Hyponatremia Iesha Reece PA-C: [address] [place], [place] [address], Ph. 09/27/2021 Drug-induced Hyponatremia Iesha Reece PA-C: [address] [place] [address], [place] [address], Ph. 09/26/2021 Edema of Lower Extremity; Drug-induced H yponatremia; Drug-induced Hypokalemia; Azotemia Iesha Reece PA-C: [address] [place], [place] [address], [place] [address], Ph. History of Present Illness Note: <div>Pt [...]
--- OUTSIDE RECORDS SUMMARY | 2022-01-18 18:25 | XMS_ITS | Encounter Summary ---
:1960 Author Care Team Providers Name Role Phone Bambi Kim MD Primary Care Provider [phone] Jose Daria OTHER [phone] [facility] OTHER [phone] Reason for Visit Acute Rounding Visit edema, [...] mRNA, LNP-S, PF, 30 mcg/0.3 mL dose (Genomatica) 07/21/2020 08/18/2020 08/10/2021 pneumococcal, unspecified formulation 02/23/2018 [...] of Y Notes: valid copy on chart, civil rights attorney? not invoked What was the date [...] Extremity; Drug-induced H yponatremia Iesha Reece PA-C: [address] [place], [place] [address], [place] [address], Ph. 10/17/2021 Drug-induced Hyponatremia Iesha Reece PA-C: [address] [place] [address], [facility] [place] [address], Ph. 10/13/2021 Chronic Hyponatremia; Edema of Lower Ext remity Iesha Reece PA-C: [address] [place] [address], [facility] [place] [id number], Ph. 10/11/2021 Drug-induced Hyponatremia; Chronic Diast olic Heart Failure; Persistent Atrial Fibrillation; Edema of Lower Extremity; Obstructive Sleep Apnea Syndrome; Venous Stasis Ulcer with Edema of Right Lower Leg Iesha Reilly CARLO Reece: [address], [place] [address], Ph. 10/03/2021 Drug-induced Hyponatremia Iesha Reilly YESSICA ReeceC: [address] [place], [place] [address], [place] [address], Ph. 09/27/2021 Drug-induced Hyponatremia Iesha Reilly YESSICA ReeceC: [address] [place], [place] [address], [place] [address], Ph. 09/26/2021 Edema of Lower Extremity; Drug-induced H yponatremia; Drug-induced Hypokalemia; Azotemia Iesha Reilly CARLO Reece: [address] [place] [address], [place] [address], Ph. History of Present Illness Note: <div>Pt [...]
--- OUTSIDE RECORDS SUMMARY | 2022-01-18 18:25 | XMS_ITS | Encounter Summary ---
:1960 Author Care Team Providers Name Role Phone Bambi Kim MD Primary Care Provider [phone] Jose Daria OTHER [phone] [facility] OTHER [phone] Reason for Visit Acute Rounding Visit f/u RLE edema Assessment and Plan 1. Edema of lower extremity Chronically asymmetric with R >L Improved with restorationist of previous La six dose although was [...] mRNA, LNP-S, PF, 30 mcg/0.3 mL dose ([employer]) 07/21/2020 08/18/2020 08/10/2021 pneumococcal, unspecified formulation 02/23/2018 [...] of Y Notes: valid copy on chart, associate attorney? not invoked What was the date [...] Extremity; Drug-induced H yponatremia Iesha Reece PA-C: [address] [place] [address], [facility] [place] [address], Ph. 10/23/2021 Edema of Lower Extremity; Drug-induced H yponatremia; Serous Bulla of Skin Iesha Reece PA-C: [address] [place] [address], [facility] [place] [address], Ph. 10/20/2021 Edema of Lower Extremity; Drug-induced H yponatremia Iesha Reece PA-C: [address] [place] [address], [facility] [place] [address], Ph. 10/17/2021 Drug-induced Hyponatremia Iesha Reece PA-C: [address] [place] [address], [facility] [place] [address], Ph. 10/13/2021 Chronic Hyponatremia; Edema of Lower Ext remity YESSICA TorresC: [address], [place] [address], Ph. 10/11/2021 Drug-induced Hyponatremia; Chronic Diast olic Heart Failure; Persistent Atrial Fibrillation; Edema of Lower Extremity; Obstructive Sleep Apnea Syndrome; Venous Stasis Ulcer with Edema of Right Lower Leg YESSICA TorresC: [address], [place] [address], Ph. 10/03/2021 Drug-induced Hyponatremia YESSICA TorresC: [address], [place] [address], Ph. 09/27/2021 Drug-induced Hyponatremia YESSICA TorresC: [address], [place] [address], Ph. 09/26/2021 Edema of Lower Extremity; Drug-induced H yponatremia; Drug-induced Hypokalemia; Azotemia YESSICA TorresC: [address], [place] [address], Ph. History of Present Illness Note: <div>Pt [...]
--- OUTSIDE RECORDS SUMMARY | 2022-01-18 18:25 | XMS_ITS ---
:1960 Author Name BelenSarai parkerkalen Care Team Providers Name Role Phone Maty Darnell Unavailable Unavailable PROBLEMS Unknown Problems ALLERGIES No Known Allergies ENCOUNTERS Encounter Location Date Diagnosis [address] Feb, [place] [address] Dec, Xer osis cutis L85.3 ; [place] Tinea unguium B 35.1 ; [address] Pain in left toe (s) M79.675 and Pain in right toe(s) M79 .674 [facility] [address] Nov, [place] [address] Sep, Tin ea unguium B35.1 ; [place] Xerosis cutis L 85.3 ; [address] Pain in right to e(s) M79.674 and Pain in left toe(s) M79.[address] Jun, [place] [address] Jun, Tin ea unguium B35.1 ; [place] Xerosis cutis L 85.3 ; [address] Pain in right to e(s) M79.674 ; Pain i n left toe(s) M79.675 a nd Plantar fascial fibromatosis M72 .[address] Jan, [place] [address] [facility] [address] Oct, Tin ea unguium B35.1 and [place] Pain in left to e(s) [address] M79.[address] [facility] Oct, [place] [address] IMMUNIZATIONS Vaccine Route Administration Date Status COVID-19 [...] 09, 2020 DEBRIDE NAIL, 6 OR MORE Nov 22, 2020 DEBRIDE NAIL, 6 OR MORE July 06, 2020 RESULTS No Results REASON FOR VISIT Insurance Providers [facility] Patient Patient Patient Patient Patient Subscriber Subscriber Subscriber Group Insurance Plan Plan Plan Plan ID Relationship Address Phone Name Date of ID Name Date of No Type Insurance Insurance Insurance Coverage to Subscriber Address Phone Name Dates Medicare National [id number] Medicare self Bennie 1960 115 [id number] [employer] [address] [employer] [address] [place] [address] MEDICAL (GENERAL) HISTORY Type Description Date Medical History Angina Medical History Back,Hip,and Knee pain Medical History Heart disease Medical History Mumps Medical History Measles Medical History Chicken pox Medical History Joint implants/screws Surgical History stomach surgery Surgical History gall bladder Surgical History tendon repair X3 PLanter Fasture
[2022-01-18] MEDS: Magnesium Sulfate/H2O 2 GM/50 ML PIGGYBACK IV (19:16)
[2022-01-18] MEDS: 0.9 % Sodium Chloride 1,000 ML 999 ML IVCONT (19:40)
[2022-01-18] MEDS: LORazepam 1 MG TABLET PO (20:00)
[2022-01-18 20:28] LABS: COVID-19 Test Negative (Negative)
[2022-01-18 22:09] LABS: Anion Gap 18 (12-20); Blood Urea Nitrogen 24 mg/dL (9-16); Calcium 8.7 mg/dL (8.4-10.2); Carbon Dioxide 21 mmol/L (22-29); Chloride 101 mmol/L (96-108); Creatinine Clr Calc Pharmacy 84.9; Estimated Glomerular Filt Rate 59; Glucose Random 116 mg/dL (60-115); Potassium 3.9 mmol/L (3.3-5.1); Sodium 136 mmol/L (135-145)
[2022-01-18 22:15] LABS: Troponin-I High Sensitivity 54.7 ng/L (<3.5-35.0)
[2022-01-19] VITALS: BP 117/67; PULSE 85; RESP 12; TEMP 36.9; O2SAT 97
[2022-01-19 02:02] LABS: Troponin-I High Sensitivity 52.8 ng/L (<3.5-35.0)
[2022-01-19 04:40] VITALS: BP 121/69; PULSE 67; RESP 18; TEMP 36.2; O2SAT 96
--- NOTE | 2022-01-19 06:03 | PC.NURSE ---
PT ambulatory to BR, gait steady. He was in the BR before staff was aware and urine sample was not obtained. PT reminded we need a urine sample.
[2022-01-19] MEDS: Acetaminophen 325 MG TABLET 650 MG PO ×2 (06:48→12:06)
[2022-01-19] MEDS: oxyCODONE HCl Immed Release 5 MG TABLET PO ×3 (06:48→21:44)
[2022-01-19 15:21] VITALS: BP 125/78; PULSE 91; RESP 18; O2SAT 97
--- NOTE | 2022-01-19 15:26 | MHC.CM.ED ---
Addendum entered by Chantal Mckinney 01/19/22 16:01: Spoke with patient's caregiver, Taylor via telephone at [phone], with patient's approval. T/W explained situation with [facility] and patient leaving AMA and balanced owed. Taylor verbalized understanding. Still waiting to hear if [facility] will accept $2000 of $7000 owed. Original Note: Received case management consult. Patient came to the ER on 01/18. Left AMA from ER and returned to the ER. Patient was at [facility] and wants to return. Referral made to [facility]. He owes the facility $7,000. They will need that money before patient can return to their facility. Patient has $2000 he can give them. T/w reached out to Johanny at [facility] with this info. Waiting to hear back. Continue to monitor for d/c needs.
[2022-01-19 19:04] VITALS: BP 114/61; PULSE 91; RESP 18; TEMP 36.2; O2SAT 100
[2022-01-19 21:19] VITALS: BP 129/71; PULSE 93; RESP 19; O2SAT 95
[2022-01-19 23:53] VITALS: BP 119/76; PULSE 89; RESP 18; TEMP 36.5; O2SAT 98
[2022-01-20 01:05] VITALS: RESP 18
[2022-01-20 02:18] VITALS: BP 108/70; PULSE 79; RESP 18; O2SAT 98
[2022-01-20] MEDS: oxyCODONE HCl Immed Release 5 MG TABLET PO ×5 (03:58→23:29)
[2022-01-20 06:09] VITALS: BP 129/79; PULSE 91; RESP 17; TEMP 36.2; O2SAT 100
--- NOTE | 2022-01-20 08:36 | PC.NURSE ---
pt requesting pain medication. t/w informed pt that he has no pain meds due until 10am. pt tearful, reporting that he ruined his life and now has no where to go. to verbally consoled. informed CM team is working to figure out a plan
--- NOTE | 2022-01-20 12:18 | MHC.CM.ED ---
Addendum entered by Chantal Mckinney 01/20/22 12:26: Patient has expressed to T/W that he is currently homeless. He is requesting to find mcc care in a [facility] facility due to this. He doesn't feel he can safely discharge to a mcc or the streets. Original Note: Patient remains in ER. [facility] will not answer about being able to accept $2000 for admission until Saturday. Referral broadcasted in [employer] to all facilities contracted with [facility] within 40 miles looking for a mcc bed. Continue to monitor for d/c needs.
--- NOTE | 2022-01-20 14:20 | PHA.MEDREC ---
Addendum entered by Rebecca Marroquin [facility] 01/22/22 07:56: Spoke to TATE Adair at [facility] (pharmacy used by [facility]). Was able to confirm the rest of the patients medications. Addendum entered by Wily Torre [facility] 01/20/22 15:23: Patient discharged from [facility] on 01/17. Chart moved from floor to medical record but not open until saturday. technology strategist spoke with patient who confirmed a few of the medications but patient was unsure of others. Medication pended in pharmacy queue to be followed up on saturday. Only continued medications patient was 100 confident in taking per Radha. Pharmacy will call [facility] and confirm remaining meds saturday Original Note: Pharmacy Consult ? Medication Reconciliation Pharmacy has completed the medication reconciliation. Spoke to patient and was able to verify confirmed meds. Patient is unsure whether they take vilazodone, venlafaxine, and metoprolol. Patient states they take zolpidem 10mg at bedtime as well.
[2022-01-20 15:17] VITALS: BP 104/68; PULSE 83; RESP 18; TEMP 36.5; O2SAT 100
--- NOTE | 2022-01-20 15:25 | PC.NURSE ---
report received from NIMESH Jacques Pt is currently resting on stretcher, tearfully stating I am 61 years old and homeless, I cannot take care of myself. This nurse sat and comforted pt and explained that the case management is working to assist in finding somewhere for him to live. Pt states he is grateful for that. Pt also picking at small wound (dime size) on leg, this nurse cleaned wound with saline and placed gauze over it.
[2022-01-20] MEDS: dilTIAZem HCL CD 180 MG CAP.ER.24H 360 MG PO (15:49)
[2022-01-20] MEDS: Apixaban 5 MG TABLET PO ×2 (15:50→20:52)
[2022-01-20] MEDS: ARIPiprazole 5 MG TABLET PO (15:50)
[2022-01-20 19:07] VITALS: BP 109/75; PULSE 80; RESP 18; TEMP 36.4; O2SAT 98
--- NOTE | 2022-01-20 20:19 | PC.NURSE ---
pt called this nurse in the room, pt states the wound began bleeding again so he removed the bandage. Dime size wound present now with redness and warmth surrounding, PA aware
[2022-01-20] MEDS: Zolpidem Tartrate 5 MG TABLET 10 MG PO (20:51)
[2022-01-20 20:52] VITALS: BP 106/70; PULSE 69; RESP 14; TEMP 36.9; O2SAT 98
[2022-01-20] MEDS: Atorvastatin Calcium 40 MG TABLET PO (20:52)
[2022-01-20] MEDS: Amoxicillin/Potassium Clav 875 MG TABLET PO (20:52)
--- NOTE | 2022-01-20 22:46 | PC.NURSE ---
Float RN to bedside to medicate pt per request and MAR for 8/10 right foot pain. Pt up to nurses station to request food with even and steady gait, independently without assistance required. Pt provided with food and beverage per request. Float RN to discuss with primary RN Sherine recommendations for consult with covering physician to discuss alternative interventions for pain management that better aligns with the pt's pain level/reports.
[2022-01-21] MEDS: oxyCODONE HCl Immed Release 5 MG TABLET PO ×3 (05:08→17:48)
[2022-01-21 06:00] VITALS: BP 110/71; PULSE 70; RESP 17
[2022-01-21 06:54] VITALS: BP 131/69; PULSE 81; RESP 16; O2SAT 98
[2022-01-21] MEDS: Apixaban 5 MG TABLET PO ×2 (07:06→19:56)
[2022-01-21] MEDS: ARIPiprazole 5 MG TABLET PO (07:06)
[2022-01-21] MEDS: Amoxicillin/Potassium Clav 875 MG TABLET PO ×2 (07:06→19:56)
[2022-01-21] MEDS: dilTIAZem HCL CD 180 MG CAP.ER.24H 360 MG PO (07:06)
[2022-01-21] MEDS: Zolpidem Tartrate 5 MG TABLET 10 MG PO (19:56)
[2022-01-21] MEDS: Atorvastatin Calcium 40 MG TABLET PO (20:03)
[2022-01-22] VITALS: BP 112/56; PULSE 71; RESP 20; TEMP 36.6; O2SAT 97
[2022-01-22] MEDS: oxyCODONE HCl Immed Release 5 MG TABLET PO ×4 (00:19→18:55)
[2022-01-22 07:24] VITALS: BP 115/75; PULSE 77; RESP 12; TEMP 36.9; O2SAT 97
[2022-01-22] MEDS: dilTIAZem HCL CD 180 MG CAP.ER.24H 360 MG PO (09:31)
[2022-01-22] MEDS: Venlafaxine HCl ER 150 MG CAP.ER.24H PO ×2 (09:31→11:16)
[2022-01-22] MEDS: Amoxicillin/Potassium Clav 875 MG TABLET PO ×2 (09:32→20:35)
[2022-01-22] MEDS: Apixaban 5 MG TABLET PO ×2 (09:32→20:35)
[2022-01-22] MEDS: Metoprolol Tartrate 100 MG TABLET PO ×3 (09:32→20:34)
[2022-01-22] MEDS: ARIPiprazole 5 MG TABLET PO (11:16)
--- NOTE | 2022-01-22 12:36 | PC.NURSE ---
RN called pharmacy requesting missing meds at 1230.
--- NOTE | 2022-01-22 13:38 | MHC.CM.ED ---
[facility] UNABLE TO OFFER A RETURN BED. SNF REFERRALS UPDATED, INDICATING THAT PATIENT IS READY FOR DC IF THEY CAN OFFER.
--- NOTE | 2022-01-22 13:49 | PC.NURSE ---
RN called the pharmacist to order pt 1230 pm meds.
--- NOTE | 2022-01-22 13:54 | PC.NURSE ---
Pt is a/o x4, pt has no apparent of distress. Pt needs placed to lived but the old SNF is not accepting him back. RN has spoken to case management about his living situation. RN will contact healthcare social worker.
[2022-01-22 14:00] VITALS: BP 105/65; PULSE 54; RESP 16; TEMP 36.4; O2SAT 94
[2022-01-22] MEDS: Vilazodone HCL 20 MG TABLET PO (14:03)
--- NOTE | 2022-01-22 14:03 | PC.NURSE ---
PT meds were administered, Pt reported he is not able to leave to a fci d/t he needs assistance with ADLs. RN send a massage to [facility] case management for further assistance.
--- NOTE | 2022-01-22 15:20 | MHC.CM.ED ---
CURRENTLY AWAITING Roya JOHNSON. PATIENT STATES I CAN'T DO ANYTHING FOR MYSELF WHEN ASKED WHAT ADLS HE IS UNABLE TO PERFORM, HE REPLIES I CAN'T BATHE MYSELF. 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 T/W REMINDED PATIENT THAT HE HAS BEEN WALKING IN HIS ROOM. PATIENT STATES THAT HE IS ABLE TO WALK AROUND HIS ED ROOM ONLY.
--- NOTE | 2022-01-22 15:25 | MHC.RECOVRN ---
T/W met w/ pt, pt alert, laying in bed. Pt reports went on a 3 day herbert, pt states drinking at least 12-30 alcoholic beverages per day, beers and hard ETOH. Pt reports drank enough until I blacked out for 3 days . Pt states prior to reoccurrence had one year in recovery, as pt states was staying at a retirement. Pt reports has supports, spoke w/ AA friend Alex today. Pt reports various levels of treatment in the past detox, [facility]. Pt states had [facility] to [facility] the past. Pt states has difficulty ambulating, bathing and ADL's. T/W and pt reviewed that CSS requires pts able to perform ADL's. Pt feels does not meet that level of care at this time. CM aware.
--- NOTE | 2022-01-22 15:27 | PC.NURSE ---
patient a&ox3, vss, c/o 09/15 pain, rle dressing intact, recovery room rn in to see patient, will continue to monitor
--- NOTE | 2022-01-22 18:21 | PC.NURSE ---
PATIENT ASK FOR 6 CANS OF MERLE MARIO .
--- NOTE | 2022-01-22 18:56 | PC.NURSE ---
pt medicated per order
[2022-01-22 19:19] VITALS: BP 108/68; PULSE 70; RESP 16; TEMP 36.7; O2SAT 95
--- NOTE | 2022-01-22 19:20 | PC.NURSE ---
patient a&ox3, pt ambulated with steady gait out to nursing station for pain medications, pt was medicated per order, pt ate dinner, vss, dressing to leg intact, call ortiz within reach, pt able to make needs known, will continue to monitor
[2022-01-22] MEDS: Atorvastatin Calcium 40 MG TABLET PO (20:35)
[2022-01-22 20:36] VITALS: BP 130/88; PULSE 69; RESP 20; TEMP 37; O2SAT 99
--- NOTE | 2022-01-22 20:36 | PC.NURSE ---
Pt meds were administered as order by the provider.
[2022-01-22] MEDS: Zolpidem Tartrate 5 MG TABLET 10 MG PO ×2 (20:58→20:59)
--- NOTE | 2022-01-22 21:00 | PC.NURSE ---
patient a&ox3, pt ambulated out to the nursing station requesting his ambien, also requesting additional po in the form of 2 sandwiches and 6 gingerale, this pt was told we were out of sandwiches and he could have 1 gingerale, pt requested cheese sticks and crackers instead.
--- NOTE | 2022-01-22 23:41 | PC.NURSE ---
this RN assumed care of patient at 2330. pt resting comfortably on stretcher. no apparent distress. will continue to monitor
[2022-01-23] MEDS: oxyCODONE HCl Immed Release 5 MG TABLET PO ×4 (01:56→21:27)
[2022-01-23 05:39] VITALS: BP 125/82; PULSE 72; RESP 18; O2SAT 99
--- NOTE | 2022-01-23 05:39 | PC.NURSE ---
Pt ambulatory to and from room out to nurses station requesting po food and liquids. ambulatory with steady gait.
[2022-01-23 07:35] VITALS: BP 125/82; PULSE 72; O2SAT 99
[2022-01-23] MEDS: Metoprolol Tartrate 100 MG TABLET PO ×2 (08:15→21:27)
[2022-01-23] MEDS: Amoxicillin/Potassium Clav 875 MG TABLET PO ×2 (08:15→21:27)
[2022-01-23] MEDS: Venlafaxine HCl ER 150 MG CAP.ER.24H PO (08:15)
[2022-01-23] MEDS: Apixaban 5 MG TABLET PO ×2 (08:15→21:27)
[2022-01-23] MEDS: dilTIAZem HCL CD 180 MG CAP.ER.24H 360 MG PO (08:15)
[2022-01-23] MEDS: ARIPiprazole 5 MG TABLET PO (08:15)
[2022-01-23] MEDS: Vilazodone HCL 20 MG TABLET PO (08:20)
--- NOTE | 2022-01-23 10:41 | MHC.CM.ED ---
Addendum entered by Chantal Mckinney 01/24/22 16:04: [facility] is able to offer a bed. Patient can leave our ER on 01/25 at 10am. Harper CASTRO booked. [facility] with chart. Patient and Anna KAUFMAN aware. Taylor made aware via telephone at [phone]. Original Note: Patient remains in ER. Physical therapy eval completed. Short term rehab is recommendation. [facility] is not willing to offer a bed. Referral broadcasted in [facility]. Referral broadcasted to [facility] facilities. Continue to monitor for d/c needs.
--- NOTE | 2022-01-23 11:36 | PC.NURSE ---
PT A&Ox3, PO meds given as documented. Ambulates with steady gait to BR and nurses station. No apparent distress. Will continue to observe.
[2022-01-23 15:53] VITALS: BP 111/64; PULSE 67; RESP 18; TEMP 36.5; O2SAT 97
[2022-01-23 21:25] VITALS: BP 127/77; PULSE 64; RESP 18; O2SAT 97
[2022-01-23] MEDS: Zolpidem Tartrate 5 MG TABLET 10 MG PO (21:26)
[2022-01-23] MEDS: Atorvastatin Calcium 40 MG TABLET PO (21:26)
[2022-01-24 00:50] VITALS: BP 93/54; PULSE 58; O2SAT 95
[2022-01-24] MEDS: oxyCODONE HCl Immed Release 5 MG TABLET PO ×4 (03:28→23:19)
[2022-01-24 06:34] VITALS: BP 129/72; PULSE 71; RESP 16; O2SAT 95
[2022-01-24] MEDS: dilTIAZem HCL CD 180 MG CAP.ER.24H 360 MG PO (07:44)
[2022-01-24] MEDS: Metoprolol Tartrate 100 MG TABLET PO ×2 (07:45→20:07)
[2022-01-24] MEDS: Amoxicillin/Potassium Clav 875 MG TABLET PO ×2 (07:45→20:07)
[2022-01-24] MEDS: Venlafaxine HCl ER 150 MG CAP.ER.24H PO (07:45)
[2022-01-24] MEDS: Apixaban 5 MG TABLET PO ×2 (07:45→20:07)
[2022-01-24] MEDS: ARIPiprazole 5 MG TABLET PO (07:45)
[2022-01-24] MEDS: Vilazodone HCL 20 MG TABLET PO (08:29)
--- NOTE | 2022-01-24 10:34 | PC.NURSE ---
pt ate breakfast, took all of hs medications. able to ambulate in room and hallways w slow, steady gait. pt pleasant in conversation. awaiting snf bed for placement.
[2022-01-24 12:15] VITALS: BP 97/61; PULSE 58; RESP 16; O2SAT 97
[2022-01-24 16:01] VITALS: BP 114/59; PULSE 64; RESP 18; TEMP 36.4; O2SAT 98
[2022-01-24 16:29] LABS: COVID-19 Test Negative (Negative)
[2022-01-24 20:06] VITALS: BP 123/65; PULSE 64; RESP 19; TEMP 36.4; O2SAT 98
[2022-01-24] MEDS: Zolpidem Tartrate 5 MG TABLET 10 MG PO (20:07)
[2022-01-24] MEDS: Atorvastatin Calcium 40 MG TABLET PO (20:07)
--- NOTE | 2022-01-24 20:07 | PC.NURSE ---
care of patient assumed this evening. he is alert, oriented x4, and ambulatory around his room. he is changed into a fresh gown before bed. he denies any pain or physical symptoms, states he's excited to be transferred to [facility] tomorrow. call ortiz is within reach.
[2022-01-24 21:38] VITALS: RESP 17
--- NOTE | 2022-01-24 23:20 | PC.NURSE ---
Patient ambulatory into [facility] to request his prn oxycodone. It was due at 10pm. This RN informs patient that he was asleep at that time and appeared comfortable, so he wasn't awoken. He now endorses 8/10 generalized/foot pain bilaterally. He is provided with prn pain medication and is now seated on the side of the bed eating pasta his son brought in for him.Call ortiz is within reach.
[2022-01-25 00:20] VITALS: BP 139/71; PULSE 73; RESP 18; TEMP 36.6; O2SAT 97
[2022-01-25 01:25] VITALS: RESP 20
[2022-01-25 01:38] VITALS: RESP 17
[2022-01-25] MEDS: oxyCODONE HCl Immed Release 5 MG TABLET PO ×2 (05:33→11:06)
[2022-01-25 05:49] VITALS: BP 118/68; PULSE 71; RESP 18; TEMP 36.7; O2SAT 96
[2022-01-25 07:27] VITALS: BP 100/71; PULSE 74; RESP 14; TEMP 36.5; O2SAT 97
[2022-01-25] MEDS: ARIPiprazole 5 MG TABLET PO (07:57)
[2022-01-25] MEDS: Vilazodone HCL 20 MG TABLET PO (07:57)
[2022-01-25] MEDS: Apixaban 5 MG TABLET PO (07:58)
[2022-01-25] MEDS: dilTIAZem HCL CD 180 MG CAP.ER.24H 360 MG PO (07:58)
[2022-01-25] MEDS: Venlafaxine HCl ER 150 MG CAP.ER.24H PO (07:59)
[2022-01-25] MEDS: Metoprolol Tartrate 100 MG TABLET PO (07:59)
[2022-01-25] MEDS: Amoxicillin/Potassium Clav 875 MG TABLET PO (07:59)
== END 2022-01-25 11:29 | disposition skilled nursing facility (03) ==
PROVIDERS: Nurse Practitioner Family; Physician Assistant; Physician Assistant Medical; Emergency Provider Emergency Medicine; PCP Internal Medicine
DX: I48.20 Chronic atrial fibrillation, unspecified (principal); N17.9 Acute kidney failure, unspecified; I51.7 Cardiomegaly; L03.115 Cellulitis of right lower limb; M79.662 Pain in left lower leg; M79.661 Pain in right lower leg; R60.0 Localized edema; E78.5 Hyperlipidemia, unspecified; F10.20 Alcohol dependence, uncomplicated; Y90.0 Blood alcohol level of less than 20 mg/100 ml; Z79.01 Long term (current) use of anticoagulants; Z20.822 Contact with and (suspected) exposure to COVID-19
CPT/HCPCS: 36415; 71045; 80048; 80053; 82077; 82550; 83605; 83735; 83880; 84484; 85025; 85610; 87040; 87635; 93005; 93970; 93971; 96365; 96367; 96375; 97162; 99282; 99283; 99285; J3411; J3475

== ENCOUNTER 2022-03-02 19:20 | Inpatient (IN) | payer MEDICARE, MEDICAID, SELFPAY ==
--- NOTE | ~2022-03-02 | US_ITS ---
EXAMINATION: US VENOUS ULTRASOUND WITH DOPPLER LOWER EXTREMITY, RIGHT CLINICAL INFORMATION: Right lower extremity pain and swelling COMPARISON: DVT study right leg 01/19/2022 TECHNIQUE: Ultrasound of the deep veins is performed from the hip to the calf with compression sonography and color and pulse Doppler assessment. Spectral analysis with color-flow imaging is performed. FINDINGS: There is normal venous compression and respiratory variation and augmented flow. The visualized common femoral vein, superficial femoral vein, profunda femoral vein and popliteal vein shows no evidence of deep venous thrombosis. Posterior tibial veins are seen but the peroneal veins were not visualized as was the case previously. There is no significant popliteal fossa cyst. If the patient's symptoms persist, followup ultrasound in 5 days 7 days might be of value to exclude proximal propagation from a non-visualized calf vein. US/US venous duplex LE RT IMPRESSION: No DVT demonstrated in the right lower extremity.
--- NOTE | ~2022-03-02 | XR_ITS ---
EXAMINATION: XR CHEST CLINICAL INFORMATION: Shortness of breath. COMPARISON: 01/18/2022 chest radiographs. TECHNIQUE: Frontal view of the chest was obtained. FINDINGS: The lungs are clear. The heart is mildly enlarged. The mediastinal structures are unremarkable. XR/XR chest 1V IMPRESSION: Mild cardiac enlargement without significant change. No acute cardiopulmonary process.
--- NOTE | ~2022-03-02 | US_ITS ---
EXAMINATION: NONINVASIVE ASSESSMENT OF THE RIGHT LOWER EXTREMITY Damir Hoffman MD CLINICAL INFORMATION: Redness, swelling and pain TECHNIQUE: Right lower extremity duplex ultrasound was performed with velocity measurements and waveform analysis in the common femoral arteries, profunda femoris arteries, proximal mid and distal superficial femoral arteries, popliteal arteries and tibial vessels. This study was performed only at rest. COMPARISON: CT abdomen pelvis 02/08/2021 FINDINGS: Velocities in cm/sec and phasicity are reported below. It is difficult to assess for the presence of plaque as no images were obtained without color flow. RIGHT LEG: Common Femoral: 125 -triphasic Profunda Femoris: 53 -triphasic Proximal SFA: 134 -triphasic Mid SFA: 150 -triphasic Distal SFA: 119 -triphasic Popliteal: 146 -biphasic Posterior tibial: 75 -biphasic Peroneal: Not seen secondary to edema US/US arterial duplex LE RT IMPRESSION: There is no evidence of any hemodynamically significant lower extremity arterial disease by velocity, waveform or duplex Doppler criteria at rest.
[2022-03-02 19:43] VITALS: BP 106/60; BP 115/58; PULSE 85; PULSE 95; RESP 16; TEMP 36.8; O2SAT 95; O2SAT 96; BMI 41.8
[2022-03-02 19:52] VITALS: BP 106/60; PULSE 95; RESP 16; TEMP 36.8; O2SAT 96
--- NOTE | 2022-03-02 19:54 | PC.NURSE ---
Pt. is on materials management clerk at this time
[2022-03-02 20:42] VITALS: BP 107/56; PULSE 90; RESP 14; TEMP 36.5; O2SAT 95
--- NOTE | 2022-03-02 20:56 | ECG_ITS ---
Test Reason : EXTREMITY PAIN Blood Pressure : / mmHG Vent. Rate : 092 BPM Atrial Rate : 000 BPM P-R Int : 000 ms QRS Dur : 154 ms QT Int : 394 ms P-R-T Axes : 000 -21 -07 degrees QTc Int : 487 ms Atrial fibrillation Right bundle branch block Abnormal ECG When compared with ECG of 18-JAN-2022 16:55, Heart rate has decreased Referred By: Garrison Schmidt Electronically Signed By:JACKELYN BARON MD
--- NOTE | 2022-03-02 21:17 | ED_ITS ---
HPI - Extremity Problem General Chief complaint: Extremity Problem Stated complaint: R LEG ADEMA Time Seen by Provider: 03/02/22 20:55 Source: patient Mode of arrival: ambulatory Limitations: no limitations History of Present Illness HPI Narrative: 61-year-old male history of atrial fibrillation on apixaban, elevated transaminases, thoracic aortic aneurysm, anemia, depression presenting to the emergency department with a red, hot, swollen right lower extremity from the knee down. Patient tells me his lower extremities have been progressively worsening in terms of swelling bilaterally for the past month or so he notes that he has had wounds on his right lower extremity for a week or so that been progressively worsening, he tells me over the past 2 days the wounds have turned infected looking. He tells me his right lower extremities very painful to the touch, he tells me it is weeping fluid and it feels very warm. Patient tells me he has had chills and fevers however unable to tell me what his temperature was. Patient denies chest pain, shortness of breath, nausea, vomiting, abdominal pain, headache, vision changes, dizziness. Patient has not tried any antibiotics for this right lower extremity. Related Data Home Medications Medication Instructions Recorded Confirmed vilazodone 20 mg tablet 20 mg PO DAILY 03/26/21 01/22/22 zolpidem 10 mg tablet 10 mg PO BEDTIME PRN Insomnia 01/20/22 01/20/22 Previous Rx's Medication Instructions Recorded apixaban 5 mg tablet (Eliquis) 5 mg PO BID 90 days #180 tabs 05/25/20 aripiprazole 5 mg tablet (Abilify) 5 mg PO DAILY 90 days #90 tabs 05/25/20 atorvastatin 40 mg tablet 40 mg PO BEDTIME 90 days #90 tabs 05/25/20 venlafaxine 150 mg 150 mg PO DAILY 90 days #90 caps 05/25/20 capsule,extended release 24 hr (Effexor XR) diltiazem HCl 180 mg 360 mg PO DAILY #30 caps 03/12/21 capsule,extended release 24 hr (Cardizem CD) metoprolol tartrate 100 mg tablet 100 mg PO BID #60 tabs 03/12/21 oxycodone 5 mg tablet 5 mg PO Q6H PRN Pain, Mild (Pain 03/27/21 Scale 1-3) #5 tabs oxycodone 5 mg tablet 5 mg PO Q6H PRN pain #14 tabs 01/24/22 zolpidem 10 mg tablet 10 mg PO BEDTIME PRN insomnia #5 01/24/22 tabs Allergies Allergy/AdvReac Type Severity Reaction Status Date / Time No Known Allergies Allergy Verified 12/15/20 05:52 Review of Systems Review of Systems: Constitutional : No Weight loss, + Fever, + Chills, No Fatigue, No Malaise ENT/Mouth : No sore throat, No Rhinorrhea Eyes: No Eye Pain, No Swelling, No Redness Cardiovascular : No Chest Pain, No SOB, No Dyspnea on Exertion, No Orthopnea, No Edema, No Palpitations Respiratory : No Cough, No Sputum, No Wheezing Gastrointestinal : No Nausea, No Vomiting, No Diarrhea, No Constipation, No abdominal Pain, No Hematochezia, No Melena Genitourinary : No Dysuria, No Urinary Frequency, No Hematuria, Musculoskeletal : No joint pain, No Myalgias, No Joint Swelling Skin : No Skin Lesions, + rash Neuro : No Weakness, No Numbness, No Dizziness, No Headache Psych : No Anxiety/Panic, No Depression All other systems reviewed and are negative Yes all other systems are reviewed and are negative [facility] Past Medical History Attestation statement: The following information was validated with the patient. Source: old records reviewed and nursing notes reviewed Medical History ARIAN (acute kidney injury) Alcohol dependence Alcohol intoxication Alcohol withdrawal Alcohol withdrawal delirium Anemia Atrial fibrillation with RVR Atrial fibrillation with RVR Atrial fibrillation with RVR Chest pain Chronic atrial fibrillation Depression Dyslipidemia Heart failure with left ventricular ejection fraction greater than or equal to 50 percent History of alcohol abuse Incarcerated incisional hernia Insomnia Metabolic acidosis with increased anion gap and accumulation of organic acids Morbid obesity Obesity Oral thrush Pulmonary embolism Sciatica Thoracic aortic aneurysm Toenail deformity Surgical History History of incisional hernia repair History of inguinal hernia repair Hx of gastric bypass S/P cholecystectomy Family History Family History Mother No problems noted. Father No problems noted. Family/Other Substance use disorder Social History Social History Household Members: None Household Members Other:: lives with mother Housing: Apartment Do you presently have visiting nurse or other home services: Yes Unable to assess alcohol history related to: Unable to respond Alcohol intake: never Patient Tobacco Use Status: Never used Tobacco Smoked in Last 30 Days: No e-Cigarette/Vaping Use: Never Used Second Hand Smoke Exposure: No Use of substances other than those prescribed or required for medical reasons: No Advance Directives: Yes Advance Directives on File: Yes Advance Directives Date on File: 03/13/21 service: No Current occupational status: retired Physical Exam Vital Signs: Vital Signs: Last Vital Signs Temp 97.7 F 03/02/22 20:42 Pulse 90 03/02/22 20:42 Resp 16 03/02/22 23:18 BP 107/56 L 03/02/22 20:42 Pulse Ox 95 03/02/22 20:42 O2 Del Method 03/02/22 20:42 BMI result Body Mass Index 41.8 vss Appearance: Alert.? Oriented X3.? No acute distress.? Head: Normocephalic, atraumatic, no step-offs or deformities Eyes: Pupils equal, round and reactive to light.? Neck: Normal inspection.? Neck supple.? CVS: Normal heart rate and rhythm.? Pulses normal.? Respiratory: No respiratory distress.? Breath sounds normal.? Abdomen: Soft and nontender.? Skin: Skin warm and dry.? Normal skin color.? Normal skin turgor.? Extremities: 3+ pitting edema b/l? No calf ttp. 5/5 strength to bilateral upper and lower extremities + erythematous, warm, tender right lower extremity from the knee down with abnormal sensation, patient unable to feel microfilament from right ankle down to the toes.. 2+ dorsalis pedis, anterior tibialis and posterior tibialis pulses equal bilateral. There are open wounds to the right lower extremity some of which appear to be blisters. (images below) Neuro: Oriented X 3.? No motor deficit.? No sensory deficit. CN 2-12 intact Course Reevaluation(s) Reevaluation #1: Patient noted to have a leukocytosis and normocytic anemia. Chemistry with no acute electrolyte abnormalities requiring intervention patient's sodium was low however normal saline ordered. Lactic negative. Transaminases elevated however this appears to be around patient's baseline, no tenderness to palpation of abdomen. Troponin slightly elevated ekg appears to be at base line with no s igns of acute ischemia, BNP 109. DVT study negative. Arterial scan pending. Patient's blood pressure soft reporting severe pain will give fentanyl for pain. Time: 23:15 Medications Administered Discontinued Medications Generic Name Dose Route Start Last Admin Trade Name Angel PRN Reason Stop Dose Admin Fentanyl 25 mcg 03/02/22 23:00 03/02/22 23:18 Fentanyl Citrate/Pf 100 Mcg/2 Ml Vial IVPUSH 03/02/22 23:01 25 mcg ONCE ONE Administration Protocol Ceftriaxone Sodium 1 gm/ 50 mls @ 100 mls/hr 03/02/22 21:13 03/02/22 22:30 Sodium Chloride IV 03/02/22 21:42 100 mls/hr ONCE ONE Administration Vancomycin HCl 2,000 mg in 520 mls @ 260 mls/hr 03/02/22 21:13 03/02/22 22:32 Vancomycin/Ns IV 03/02/22 23:12 260 mls/hr ONCE ONE Administration Sodium Chloride 1,000 mls @ 999 mls/hr 03/02/22 21:30 03/02/22 22:27 Ns IV 03/02/22 22:30 999 mls/hr .Q1H1M MARILEE Administration Sodium Chloride 1,000 mls @ 999 mls/hr 03/02/22 22:15 03/02/22 23:18 Ns IV 03/02/22 23:15 999 mls/hr .Q1H1M MARILEE Administration MDM - Extremity (Nontraumatic) MDM Narrative Medical decision making narrative: 2121 61-year-old male presents with red, tender, warm right lower extremity from the knee down. With decreased sensation. Worsening over the past 2 days. Chronic wounds to right lower extremity however worsening over the past few days. Physical examination with redness, swelling and warmth to right lower extremity, images in chart. Decreased sensation from right ankle to toes. 3+ pitting edema bilaterally. Concerns for cellulitis versus erysipelas. Normal neurovascular status in pulses low suspicion for arterial or venous occlusion however will rule these out due to severe pain. Unlikely that this is SJS or necrotizing infection. Plan at this time is labs, cultures, lactic, EKG, troponin, BNP. Will give ceftriaxone and vancomycin for suspected infection. Medical Records Attestation: I reviewed the patient's medical records. Lab Data Attestation: I reviewed the patient's lab results. Result diagrams: 03/02/22 21:41 03/02/22 21:41 Labs: Lab Results 03/02/22 03/02/22 03/02/22 Range/Units 21:41 21:41 21:41 WBC 13.2 H (4.8-10.8) X10*3/uL RBC 3.46 L (4.60-5.80) X10*6/uL Hgb 9.2 L (14.0-18.0) g/dl Hct 30.2 L (42.0-52.0) % MCV 87.3 (80.0-98.0) fL MCH 26.6 L (27.0-33.0) pg MCHC 30.5 L (31.0-36.0) g/dl RDW 16.7 H (11.0-16.0) % Plt Count 273 (160-400) X10*3/uL MPV 10.3 (9.4-12.4) fL Immature Gran % (Auto) 0.5 H (0.0-0.4) % Neut % (Auto) 86.2 H (45-73) % Lymph % (Auto) 4.3 L (20-40) % Curry % (Auto) 8.4 (2-11) % Eos % (Auto) 0.2 (0-4) % Baso % (Auto) 0.4 (0-2) % Lymph # (Auto) 0.6 L (1.2-4.9) X10*3/uL Curry # (Auto) 1.1 (0.1-1.2) X10*3/uL Eos # (Auto) 0.0 (0.0-0.4) X10*3/uL Baso # (Auto) 0.1 (0.0-0.2) X10*3/uL Abs Immat Gran (auto) 0.06 H (0.00-0.03) X10*3/uL Absolute Neuts (auto) 11.4 H (2.0-8.3) x10*3/uL Absolute Nucleated RBC 0.020 H (0.0-0.012) X10*3/uL Nucleated RBC % (auto) 0.2 (0.0-0.2) /100WBC Sodium 133 L (135-145) mmol/L Potassium 3.6 (3.3-5.1) mmol/L Chloride 96 (96-108) mmol/L Carbon Dioxide 25 (22-29) mmol/L Anion Gap 16 (12-20) BUN 21 H (9-16) mg/dL Creatinine 1.15 (0.5-1.4) mg/dL Estim Creat Clear Calc 95.2 Estimated GFR > 60 Random Glucose 94 (60-115) mg/dL Lactic Acid (0.5-2.0) mmol/L Calcium 8.4 (8.4-10.2) mg/dL Magnesium 2.3 (1.6-2.6) mg/dL Total Bilirubin 0.9 (0.0-1.0) mg/dL AST 177 H (5-37) U/L ALT 123 H (0-40) U/L Alkaline Phosphatase 81 (39-117) U/L Troponin I High Sens 17.1 D (<3.5-35.0) ng/L B-Natriuretic Peptide (<100) pg/mL Total Protein 6.7 (6.5-8.0) g/dL Albumin 3.5 (3.5-5.0) g/dL COVID-19 (NOLAN) (Negative) COVID-19 Clin Com 03/02/22 03/02/22 03/02/22 Range/Units 21:41 21:42 21:43 WBC (4.8-10.8) X10*3/uL RBC (4.60-5.80) X10*6/uL Hgb (14.0-18.0) g/dl Hct (42.0-52.0) % MCV (80.0-98.0) fL MCH (27.0-33.0) pg MCHC (31.0-36.0) g/dl RDW (11.0-16.0) % Plt Count (160-400) X10*3/uL MPV (9.4-12.4) fL Immature Gran % (Auto) (0.0-0.4) % Neut % (Auto) (45-73) % Lymph % (Auto) (20-40) % Curry % (Auto) (2-11) % Eos % (Auto) (0-4) % Baso % (Auto) (0-2) % Lymph # (Auto) (1.2-4.9) X10*3/uL Curry # (Auto) (0.1-1.2) X10*3/uL Eos # (Auto) (0.0-0.4) X10*3/uL Baso # (Auto) (0.0-0.2) X10*3/uL Abs Immat Gran (auto) (0.00-0.03) X10*3/uL Absolute Neuts (auto) (2.0-8.3) x10*3/uL Absolute Nucleated RBC (0.0-0.012) X10*3/uL Nucleated RBC % (auto) (0.0-0.2) /100WBC Sodium (135-145) mmol/L Potassium (3.3-5.1) mmol/L Chloride (96-108) mmol/L Carbon Dioxide (22-29) mmol/L Anion Gap (12-20) BUN (9-16) mg/dL Creatinine (0.5-1.4) mg/dL Estim Creat Clear Calc Estimated GFR Random Glucose (60-115) mg/dL Lactic Acid 0.9 (0.5-2.0) mmol/L Calcium (8.4-10.2) mg/dL Magnesium (1.6-2.6) mg/dL Total Bilirubin (0.0-1.0) mg/dL AST (5-37) U/L ALT (0-40) U/L Alkaline Phosphatase (39-117) U/L Troponin I High Sens (<3.5-35.0) ng/L B-Natriuretic Peptide 109 H (<100) pg/mL Total Protein (6.5-8.0) g/dL Albumin (3.5-5.0) g/dL COVID-19 (NOLAN) Negative (Negative) COVID-19 Clin Com See Note Critical Care Time Critical Care Time Critical Care Time: Yes Total Critical Care Time: 35 Attestation: I attest to this time spent taking care of the patient, obtaining history, physical, reviewing labs, imaging, speaking to my attending,. Discharge Plan Discharge Clinical Impression: Erselvinipelas Patient Disposition: Admitted As Inpatient
[2022-03-02 21:54] LABS: MANUAL DIFF FLAG NO
[2022-03-02 21:55] LABS: Basophils Absolute Auto 0.1 X10*3/uL (0.0-0.2); Basophils Percent Auto 0.4 % (0-2); Eosinophils Percent Auto 0.2 % (0-4); Hematocrit 30.2 % (42.0-52.0); Hemoglobin 9.2 g/dl (14.0-18.0); Imm Gran Abs Auto 0.06 X10*3/uL (0.00-0.03); Imm Gran Pct Auto 0.5 % (0.0-0.4); Lymphocytes Absolute Auto 0.6 X10*3/uL (1.2-4.9); Lymphocytes Percent Auto 4.3 % (20-40); Mean Corpuscular HGB Conc 30.5 g/dl (31.0-36.0); Mean Corpuscular Hemoglobin 26.6 pg (27.0-33.0); Mean Corpuscular Volume 87.3 fL (80.0-98.0); Mean Platelet Volume 10.3 fL (9.4-12.4); Monocytes Absolute Auto 1.1 X10*3/uL (0.1-1.2); Monocytes Percent Auto 8.4 % (2-11); NRBC Pct Auto 0.2 /100WBC (0.0-0.2); Neutrophils Absolute Auto 11.4 x10*3/uL (2.0-8.3); Neutrophils Percent Auto 86.2 % (45-73); Platelet Count 273 X10*3/uL (160-400); Red Blood Count 3.46 X10*6/uL (4.60-5.80); Red Cell Distribution Width 16.7 % (11.0-16.0); White Blood Count 13.2 X10*3/uL (4.8-10.8)
[2022-03-02 22:07] LABS: Lactic Acid 0.9 mmol/L (0.5-2.0)
[2022-03-02 22:11] LABS: Alanine Aminotransferase 123 U/L (0-40); Albumin Level 3.5 g/dL (3.5-5.0); Alkaline Phosphatase 81 U/L (39-117); Anion Gap 16 (12-20); Aspartate Amino Transferase 177 U/L (5-37); Bilirubin Total 0.9 mg/dL (0.0-1.0); Blood Urea Nitrogen 21 mg/dL (9-16); Calcium 8.4 mg/dL (8.4-10.2); Carbon Dioxide 25 mmol/L (22-29); Chloride 96 mmol/L (96-108); Creatinine Clr Calc Pharmacy 95.2; Estimated Glomerular Filt Rate > 60; Glucose Random 94 mg/dL (60-115); Magnesium 2.3 mg/dL (1.6-2.6); Potassium 3.6 mmol/L (3.3-5.1); Sodium 133 mmol/L (135-145); Total Protein 6.7 g/dL (6.5-8.0)
[2022-03-02 22:12] LABS: COVID-19 Test Negative (Negative)
[2022-03-02 22:14] LABS: B Type Natriuretic Peptide 109 pg/mL (<100); Troponin-I High Sensitivity 17.1 ng/L (<3.5-35.0)
[2022-03-02] MEDS: 0.9 % Sodium Chloride 1,000 ML 999 ML IV ×2 (22:27→23:18)
[2022-03-02] MEDS: cefTRIAXone sodium 1 GM in 0.9 % Sodium Chloride 50 ML IV (22:30)
[2022-03-02 23:18] VITALS: RESP 16
[2022-03-02] MEDS: fentaNYL citrate/PF 100 MCG/2 ML VIAL 25 MCG IVPUSH (23:18)
[2022-03-03] VITALS (9 sets, daily range): BP systolic 107–130; BP diastolic 66–79; PULSE 72–92; RESP 11–18; TEMP 36.1–36.6; O2SAT 95–100; BMI 43.2
--- NOTE | 2022-03-03 00:23 | PM.IMHP ---
History of Present Illness Date of Service: 03/03/22 Chief Complaint: leg redness 61-year-old male with past medical history of hyperlipidemia hypertension, mood disorder presents to the hospital with complaints of swollen red right lower extremity. Patient reports that he noticed to the day prior, significantly swollen, red, he reports that he has 2 ulcers at the front of his leg which he follows with wound clinic for and have been doing well. He reports feeling febrile and having chills, reports throbbing pain in his right lower extremity. Reports no chest pain, no shortness of breath, no abdominal pain nausea vomiting, diarrhea constipation, and no urinary symptoms. On arrival to the ED patient hemodynamically stable with no significant abnormal vitals Labs are significant for WBC count of 13.2, hemoglobin of 9.2, hematocrit 30.2, sodium 133, AST of 177, ALT of 123, Arterial duplex of lower extremity shows no evidence of any hemodynamically significant lower extremity artery disease by velocity waveform or duplex Doppler Venous duplex shows no DVT Patient started on IV antibiotics will be admitted for further management Review of Systems Review of Systems: Yes all other systems are reviewed and are negative [facility] Medical History ARIAN (acute kidney injury) Alcohol dependence Alcohol intoxication Alcohol withdrawal Alcohol withdrawal delirium Anemia Atrial fibrillation with RVR Atrial fibrillation with RVR Atrial fibrillation with RVR Chest pain Chronic atrial fibrillation Depression Dyslipidemia Heart failure with left ventricular ejection fraction greater than or equal to 50 percent History of alcohol abuse Incarcerated incisional hernia Insomnia Metabolic acidosis with increased anion gap and accumulation of organic acids Morbid obesity Obesity Oral thrush Pulmonary embolism Sciatica Thoracic aortic aneurysm Toenail deformity Family History Mother No problems noted. Father No problems noted. Family/Other Substance use disorder Surgical History History of incisional hernia repair History of inguinal hernia repair Hx of gastric bypass S/P cholecystectomy Social History Household Members: Other Household Members Other:: lives with mother Housing: [facility] Do you presently have visiting nurse or other home services: No Unable to assess alcohol history related to: Unable to respond Alcohol intake: never Patient Tobacco Use Status: Never used Tobacco Smoked in Last 30 Days: No e-Cigarette/Vaping Use: Never Used Second Hand Smoke Exposure: No Use of substances other than those prescribed or required for medical reasons: No Currently Displaying Signs/Symptoms of Drug Intoxication Withdrawal: No Any prior treatment program specific to substance use: No Have you been hit, kicked, punched, or otherwise hurt by someone within the past year? If so, by whom?: No Do you feel safe in your current relationship?: No Current Relationship Is there a partner from a previous relationship who is making you feel unsafe now?: No Are you made to feel afraid or neglected: No Spiritual Healthcare Practices: NA Congregational Healthcare Practices: NA Cultural Healthcare Practices: NA Advance Directives: Yes Advance Directives on File: Yes Advance Directives Date on File: 03/13/21 Do you have thoughts of harming others: None Do you have a plan to hurt others: No Plan Recently lost weight without trying: No Eating poorly because of decreased appetite: No Nutrition Risks: No Nutritional Risk Poor oral hygiene: No service: No Current occupational status: retired [employer] Allergies Allergy/AdvReac Type Severity Reaction Status Date / Time No Known Allergies Allergy Verified 12/15/20 05:52 Active Medications: Current Medications Pharmacy Consult (Consult Rx Perform Med Rec) 1 each MISCELLANE ONCE PRN PRN Reason: Consult order Home Medications Medication Instructions Recorded Confirmed Last Taken Type zolpidem 10 mg tablet 10 mg PO BEDTIME PRN Insomnia 01/20/22 03/03/22 Unknown History Physical Exam Vital Signs and Narrative: Vital Signs: Last Vital Signs Temp 97.6 F 03/03/22 00:08 Pulse 92 03/03/22 00:08 Resp 11 L 03/03/22 00:08 BP 107/71 03/03/22 00:08 Pulse Ox 96 03/03/22 00:08 O2 Del Method 03/03/22 00:08 BMI result Body Mass Index 41.8 Const: General: cooperative and no acute distress Orientation/consciousness: patient oriented x3 Eyes: General: appearance normal, both eyes and all related structures Resp: Effort & Inspection: normal respiratory effort Auscultation: clear to auscultation bilaterally Cardio: Rate: regular rate Rhythm: regular rhythm GI: Palpation (GI): Soft to palpation Auscultation: normal bowel sounds Skin: Other: Right lower extremity erythema, warmth, tenderness, as well as significant edema Has 2 blisters at the anterior of blackburn, with serosanguineous drainage Neuro: General: patient oriented x3 Cognition (Neuro): normal cognition Results Labs CBC and Chem 7: 03/02/22 21:41 03/02/22 21:41 Labs: Laboratory Results - last 24 hr 03/02/22 03/02/22 03/02/22 21:41 21:41 21:41 MCV 87.3 MCH 26.6 L MCHC 30.5 L RDW 16.7 H Plt Count 273 MPV 10.3 Immature Gran % (Auto) 0.5 H Neut % (Auto) 86.2 H Lymph % (Auto) 4.3 L Conway % (Auto) 8.4 Eos % (Auto) 0.2 Baso % (Auto) 0.4 Lymph # (Auto) 0.6 L Conway # (Auto) 1.1 Eos # (Auto) 0.0 Baso # (Auto) 0.1 Abs Immat Gran (auto) 0.06 H Absolute Neuts (auto) 11.4 H Absolute Nucleated RBC 0.020 H Nucleated RBC % (auto) 0.2 Anion Gap 16 Estim Creat Clear Calc 95.2 Estimated GFR > 60 Random Glucose 94 Lactic Acid Calcium 8.4 Magnesium 2.3 Total Bilirubin 0.9 AST 177 H ALT 123 H Alkaline Phosphatase 81 Troponin I High Sens 17.1 D B-Natriuretic Peptide Total Protein 6.7 Albumin 3.5 COVID-19 (NOLAN) COVID-19 Clin Com 03/02/22 03/02/22 03/02/22 21:41 21:42 21:43 MCV MCH MCHC RDW Plt Count MPV Immature Gran % (Auto) Neut % (Auto) Lymph % (Auto) Conway % (Auto) Eos % (Auto) Baso % (Auto) Lymph # (Auto) Conway # (Auto) Eos # (Auto) Baso # (Auto) Abs Immat Gran (auto) Absolute Neuts (auto) Absolute Nucleated RBC Nucleated RBC % (auto) Anion Gap Estim Creat Clear Calc Estimated GFR Random Glucose Lactic Acid 0.9 Calcium Magnesium Total Bilirubin AST ALT Alkaline Phosphatase Troponin I High Sens B-Natriuretic Peptide 109 H Total Protein Albumin COVID-19 (NOLAN) Negative COVID-19 Clin Com See Note Imaging Radiologist's Impressions: Impressions Venous Duplex 03/02/22 22:16 IMPRESSION: No DVT demonstrated in the right lower extremity. Duplex Scan Lower Extremity Artery 03/02/22 22:29 IMPRESSION: There is no evidence of any hemodynamically significant lower extremity arterial disease by velocity, waveform or duplex Doppler criteria at rest. Assessment and Plan (1) Erysipelas: Status: Acute (2) Cellulitis of right lower extremity: Status: Acute Plan 61-year-old male with past medical history of chronic AFib, hypertension, history of alcohol abuse, history of pulmonary embolism presents to the hospital with complaints of right lower extremity edema on redness # acute erysipelas/cellulitis of right lower extremity - erythema, warmth, tenderness and edema right lower extremity - will treat with IV vancomycin given the blackburn blisters and drainage - follow cultures - wound care # chronic AFib - continue metoprolol and Eliquis # mood disorder - continue mood stabilizers # hypertension =- stable - continue home antihypertensive DVT prophylaxis: Eliquis Given patient's significant cellulitis requiring IV antibiotics patient required minimum 2 night inpatient hospitals stay for further management and monitoring Quality Stroke Does the patient have a stroke diagnosis?: No VTE Prior VTE?: No VTE Risk Level:: Medical - moderate - high VTE Device Contraindication: Treatment Not Indicated VTE Drug Contraindication: N/A - Med Ordered
[2022-03-03 01:22] LABS: Troponin-I High Sensitivity 14.4 ng/L (<3.5-35.0)
--- NOTE | 2022-03-03 02:44 | PC.NURSE ---
Pt. requesting HS medications. Notifying Yasmeen Boyd MD
[2022-03-03] MEDS: Atorvastatin Calcium 40 MG TABLET PO ×2 (03:14→20:32)
[2022-03-03] MEDS: Apixaban 5 MG TABLET PO ×3 (03:14→20:32)
[2022-03-03] MEDS: Metoprolol Tartrate 100 MG TABLET PO ×3 (03:15→20:32)
--- NOTE | 2022-03-03 03:17 | PC.NURSE ---
Pt. requesting additional pain medication and dose of HS Ambien (home med.). Notifying Yasmeen Boyd MD at this time for orders.
[2022-03-03] MEDS: oxyCODONE HCl Immed Release 5 MG TABLET PO ×4 (03:31→23:27)
[2022-03-03] MEDS: Zolpidem Tartrate 5 MG TABLET 10 MG PO ×2 (03:31→20:33)
--- NOTE | 2022-03-03 05:33 | PC.NURSE ---
PT has a $100 bill in his pants pocket, which is with PT at bedside.
[2022-03-03 06:09] LABS: MANUAL DIFF FLAG NO
[2022-03-03 06:29] LABS: Basophils Percent Auto 0.3 % (0-2); Eosinophils Absolute Auto 0.1 X10*3/uL (0.0-0.4); Eosinophils Percent Auto 0.8 % (0-4); Hematocrit 28.4 % (42.0-52.0); Hemoglobin 8.6 g/dl (14.0-18.0); Imm Gran Abs Auto 0.05 X10*3/uL (0.00-0.03); Imm Gran Pct Auto 0.4 % (0.0-0.4); Lymphocytes Absolute Auto 0.6 X10*3/uL (1.2-4.9); Lymphocytes Percent Auto 5.1 % (20-40); Mean Corpuscular HGB Conc 30.3 g/dl (31.0-36.0); Mean Corpuscular Volume 89.3 fL (80.0-98.0); Mean Platelet Volume 10.9 fL (9.4-12.4); Monocytes Percent Auto 8.1 % (2-11); Neutrophils Percent Auto 85.3 % (45-73); Platelet Count 257 X10*3/uL (160-400); Red Blood Count 3.18 X10*6/uL (4.60-5.80); Red Cell Distribution Width 16.7 % (11.0-16.0); White Blood Count 11.7 X10*3/uL (4.8-10.8)
[2022-03-03 06:32] LABS: Anion Gap 12 (12-20); Blood Urea Nitrogen 17 mg/dL (9-16); Calcium 7.8 mg/dL (8.4-10.2); Carbon Dioxide 24 mmol/L (22-29); Chloride 99 mmol/L (96-108); Creatinine Clr Calc Pharmacy 121.3; Estimated Glomerular Filt Rate > 60; Glucose Random 89 mg/dL (60-115); Potassium 3.7 mmol/L (3.3-5.1); Sodium 131 mmol/L (135-145)
[2022-03-03] MEDS: ARIPiprazole 5 MG TABLET PO (09:33)
[2022-03-03] MEDS: 0.9 % Sodium Chloride Flush 3 ML SYRINGE IVFLUSH ×3 (09:34→20:35)
[2022-03-03] MEDS: dilTIAZem HCL CD 180 MG CAP.ER.24H 360 MG PO (09:34)
[2022-03-03] MEDS: Venlafaxine HCl ER 150 MG CAP.ER.24H PO (09:34)
--- NOTE | 2022-03-03 10:06 | PHA.PROG ---
Admission Date/Time: March 03, 2022 00:20 Indication: Cellulitis Weight in k.5 kg Adjusted body weight in K kg [place] body weight in K.6 kg Obesity Dosing Indication % IBW: 186% Serum Creatinine - Last 168 Hours 03/02/22 03/03/22 21:41 05:58 Creatinine 1.15 0.92 Estimated CrCl and GFR - Last 168 Hours 03/02/22 03/03/22 21:41 05:58 Estim Creat Clear Calc 95.2 121.3 Estimated GFR > 60 > 60 Vancomycin Loading Dose: 2000 mg Current Vancomycin Dosing Regimen: 1000 mg Q12H Date and Time for next Vancomycin Level to be drawn: 03/04 @ 0900 Pharmacist Comments on Vancomycin Plan: Patient is morbidly obese therefore required careful monitor due to high Vd. Confirmed weight with RNAllegra. Patient received loading dose vanco 2g in the ER 03/02 @ 2232. Maintenance dose vanco 1000 mg Q12H scheduled to start 03/03 @ 1100. Expected AUC 445 with a trough of 12.2. Trough to be drawn prior to 4th dose Pharmacy will monitor renal function daily. Kerry Farris, Blue Vancomycin dosing will take advantage of [employer] as a clinical decision support tool that uses Bayesian modeling to calculate individual patient's pharmacokinetic parameters and forecast the patient's drug concentration time course with the target goal AUC 24 range of 400 - 600 mg/L/hr.
[2022-03-03] MEDS: vancomycin HCL 1,000 MG in 0.9 % Sodium Chloride 250 ML 270 MG IV ×2 (10:52→23:21)
--- NOTE | 2022-03-03 11:09 | PM.EVENT ---
Event Note Date of Service: 03/03/22 Event Note: 61-year-old male with past medical history of chronic AFib, hypertension, history of alcohol abuse, history of pulmonary embolism presents to the hospital with complaints of right lower extremity edema on redness # acute erysipelas/cellulitis of right lower extremity - erythema, warmth, tenderness and edema right lower extremity - will treat with IV vancomycin given the blackburn blisters and drainage - follow cultures - wound care # chronic AFib - continue metoprolol and Eliquis # mood disorder - continue mood stabilizers # hypertension =- stable - continue home antihypertensive DVT prophylaxis: Eliquis Given patient's significant cellulitis requiring IV antibiotics patient required minimum 2 night inpatient hospitals stay for further management and monitoring
--- NOTE | 2022-03-03 11:10 | PHA.MEDREC ---
Pharmacy Consult ? Medication Reconciliation Pharmacy has completed the medication reconciliation. Completed medication reconciliation based on medication list from long term.
[2022-03-03] MEDS: Morphine Sulfate 2 MG/ML CARTRIDGE IVPUSH ×2 (14:46→20:57)
--- NOTE | 2022-03-03 15:11 | MHC.CM.PN ---
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
[2022-03-04] VITALS (7 sets, daily range): BP systolic 111–130; BP diastolic 60–77; PULSE 77–88; RESP 18; TEMP 36–36.8; O2SAT 98–99
[2022-03-04] MEDS: Morphine Sulfate 2 MG/ML CARTRIDGE IVPUSH ×4 (02:57→20:00)
[2022-03-04] MEDS: oxyCODONE HCl Immed Release 5 MG TABLET PO ×4 (05:27→21:01)
[2022-03-04 06:32] LABS: Creatinine Clr Calc Pharmacy 128.2; Estimated Glomerular Filt Rate > 60
[2022-03-04] MEDS: Apixaban 5 MG TABLET PO ×2 (08:43→20:01)
[2022-03-04] MEDS: ARIPiprazole 5 MG TABLET PO (08:43)
[2022-03-04] MEDS: dilTIAZem HCL CD 180 MG CAP.ER.24H 360 MG PO (08:43)
[2022-03-04] MEDS: Metoprolol Tartrate 100 MG TABLET PO ×2 (08:43→20:01)
[2022-03-04] MEDS: Venlafaxine HCl ER 150 MG CAP.ER.24H PO (08:44)
[2022-03-04] MEDS: 0.9 % Sodium Chloride Flush 3 ML SYRINGE IVFLUSH ×2 (08:44→15:50)
[2022-03-04 10:04] LABS: Vancomycin Trough 10.8 mcg/mL (10.0-20.0)
--- NOTE | 2022-03-04 10:08 | HE.PHANOTE ---
RE: vanco Trough on 03/04 came back at 10.8 with predicted AUC 371mg/L; increased dose to 1250mg Q12H with predicted AUC 464mg/L. Next level to be drawn 03/05 @2100
[2022-03-04] MEDS: vancomycin HCL 1,250 MG in 0.9 % Sodium Chloride 250 ML 166.67 MG IV ×2 (10:21→22:29)
--- NOTE | 2022-03-04 13:43 | P.PNIM_ITS ---
Subjective Subjective Date of Service: 03/04/22 Interval History: Follow up cellulitis feeling better but still with pain Review of Systems says heart rate boyd seems to be improving, Denies any chest pain or shortness of breath or abdominal pain or fever chills or cough or phlegm Physical Exam Vital Signs: Vital Signs: Last Vital Signs Temp 98.2 F 03/04/22 11:20 Pulse 79 03/04/22 11:20 Resp 18 03/04/22 11:20 BP 111/66 03/04/22 11:20 Pulse Ox 98 03/04/22 11:20 O2 Del Method 03/04/22 11:20 BMI result Body Mass Index 43.2 Appearing in no acute distress lung sounds are clear to auscultation heart regular rate rhythm, clear S1, S2 positive bowel sounds, abdomen is soft, nontender neuro patient is alert x3, no focal deficits Right LE Objective Data Active Medications Acetaminophen (Acetaminophen 325 Mg Tablet) 650 mg PO Q6H PRN PRN Reason: Pain, Mild (Pain Scale 1-3) Apixaban (Apixaban 5 Mg Tablet) 5 mg PO BID [facility] Last Admin: 03/04/22 08:43 Dose: 5 mg Documented By: ISAIAH Aripiprazole (Aripiprazole 5 Mg Tablet) 5 mg PO DAILY [facility] Last Admin: 03/04/22 08:43 Dose: 5 mg Documented By: ISAIAH Atorvastatin Calcium (Atorvastatin Calcium 40 Mg Tablet) 40 mg PO BEDTIME [facility] Last Admin: 03/03/22 20:32 Dose: 40 mg Documented By: MORRINL Diltiazem HCl (Diltiazem Hcl Cd 180 Mg Cap.Er.24h) 360 mg PO DAILY [facility]; Protocol Last Admin: 03/04/22 08:43 Dose: 360 mg Documented By: ISAIAH Docusate Sodium (Docusate Sodium 100 Mg Capsule) 100 mg PO DAILY PRN PRN Reason: Constipation Vancomycin HCl 1,250 mg/ (Sodium Chloride) 250 mls @ 166.667 mls/hr IV Q12H [facility] Last Infusion: 03/04/22 11:58 Dose: 0 mls/hr Documented By: ISAIAH Metoprolol Tartrate (Metoprolol Tartrate 100 Mg Tablet) 100 mg PO BID [facility]; Protocol Last Admin: 03/04/22 08:43 Dose: 100 mg Documented By: ISAIAH Morphine Sulfate (Morphine Sulfate 2 Mg/Ml Cartridge) 2 mg IVPUSH Q4H PRN; Protocol PRN Reason: Pain, Mild (Pain Scale 1-3) Last Admin: 03/04/22 08:43 Dose: 2 mg Documented By: ISAIAH Ondansetron HCl (Ondansetron Hcl 4 Mg/2 Ml Vial) 4 mg IVPUSH Q8H PRN PRN Reason: Nausea and Vomiting Oxycodone HCl (Oxycodone Hcl Immed Release 5 Mg Tablet) 5 mg PO Q4H PRN PRN Reason: Pain, Mild (Pain Scale 1-3) Last Admin: 03/04/22 12:17 Dose: 5 mg Documented By: ISAIAH Pharmacy Consult (Consult Rx Perform Med Rec) 1 each MISCELLANE ONCE PRN PRN Reason: Consult order Pharmacy Consult (Consult Rx Vancomycin Dosing) 1 each MISCELLANE DAILY PRN PRN Reason: Consult order Sodium Chloride (0.9 % Sodium Chloride Flush 3 Ml Syringe) [facility] Last Admin: 03/04/22 08:44 Dose: 3 ml Documented By: ISAIAH Venlafaxine HCl (Venlafaxine Hcl Er 150 Mg Cap.Er.24h) 150 mg PO DAILY [facility] Last Admin: 03/04/22 08:44 Dose: 150 mg Documented By: ISAIAH Zolpidem Tartrate (Zolpidem Tartrate 5 Mg Tablet) 10 mg PO BEDTIME PRN PRN Reason: Insomnia Last Admin: 03/03/22 20:33 Dose: 10 mg Documented By: ERUM Labs CBC & Chem 7: 03/03/22 05:58 03/04/22 05:56 Labs: Laboratory Results - last 24 hr 03/04/22 03/04/22 05:56 09:09 Estim Creat Clear Calc 128.2 Estimated GFR > 60 Vancomycin Trough 10.8 Microbiology Microbiology Results: Microbiology 03/02/22 21:41 Blood Culture - Preliminary Blood - Venous No growth after 24 hours. 03/02/22 21:41 Blood Culture - Preliminary Blood - Venous No growth after 24 hours. Assessment and Plan (1) Cellulitis of right lower extremity: Status: Acute Plan 61-year-old male with past medical history of chronic AFib, hypertension, history of alcohol abuse, history of pulmonary embolism presents to the hospital with complaints of right lower extremity edema on redness acute erysipelas/cellulitis of right lower extremity. Improving erythema, warmth, tenderness and edema right lower extremity IV vancomycin given the blackburn blisters and drainage follow cultures wound care chronic AFib continue metoprolol and Eliquis mood disorder continue mood stabilizers hypertension stable continue home antihypertensive DVT prophylaxis: Katharina Attending Dr. Oro continue hospitalization for treatment of right lower extremity cellulitis requiring IV antibiotics Quality Stroke Does the patient have a stroke diagnosis?: No VTE Prior VTE?: No VTE Risk Level:: Medical - moderate - high VTE Device Contraindication: Treatment Not Indicated VTE Drug Contraindication: N/A - Med Ordered
[2022-03-04] MEDS: Atorvastatin Calcium 40 MG TABLET PO (20:01)
[2022-03-04] MEDS: Zolpidem Tartrate 5 MG TABLET 10 MG PO (20:07)
[2022-03-05] VITALS (7 sets, daily range): BP systolic 99–133; BP diastolic 54–69; PULSE 70–80; RESP 16–19; TEMP 36–36.6; O2SAT 94–99
[2022-03-05] MEDS: Morphine Sulfate 2 MG/ML CARTRIDGE IVPUSH ×3 (00:01→09:05)
[2022-03-05] MEDS: 0.9 % Sodium Chloride Flush 3 ML SYRINGE IVFLUSH ×5 (00:01→23:02)
[2022-03-05] MEDS: oxyCODONE HCl Immed Release 5 MG TABLET PO ×3 (01:11→10:38)
[2022-03-05 06:40] LABS: Creatinine Clr Calc Pharmacy 146.8; Estimated Glomerular Filt Rate > 60
[2022-03-05] MEDS: Metoprolol Tartrate 100 MG TABLET PO ×2 (08:58→21:00)
[2022-03-05] MEDS: dilTIAZem HCL CD 180 MG CAP.ER.24H 360 MG PO (08:58)
[2022-03-05] MEDS: ARIPiprazole 5 MG TABLET PO (08:58)
[2022-03-05] MEDS: Venlafaxine HCl ER 150 MG CAP.ER.24H PO (08:58)
[2022-03-05] MEDS: Apixaban 5 MG TABLET PO ×2 (08:59→21:00)
--- NOTE | 2022-03-05 09:34 | HO.PM.IMPN ---
Subjective Subjective Date of Service: 03/05/22 Interval History: Follow up cellulitis feeling better but still with pain Review of Systems says heart rate boyd seems to be improving, Denies any chest pain or shortness of breath or abdominal pain or fever chills or cough or phlegm Physical Exam Vital Signs: Vital Signs: Last Vital Signs Temp 98 F 03/05/22 07:19 Pulse 72 03/05/22 07:19 Resp 19 03/05/22 07:19 BP 130/69 03/05/22 07:19 Pulse Ox 98 03/05/22 07:19 O2 Del Method 03/05/22 07:19 BMI result Body Mass Index 43.2 Appearing in no acute distress lung sounds are clear to auscultation heart regular rate rhythm, clear S1, S2 positive bowel sounds, abdomen is soft, nontender neuro patient is alert x3, no focal deficits Objective Data Active Medications Acetaminophen (Acetaminophen 325 Mg Tablet) 650 mg PO Q6H PRN PRN Reason: Pain, Mild (Pain Scale 1-3) Apixaban (Apixaban 5 Mg Tablet) 5 mg PO BID [facility] Last Admin: 03/05/22 08:59 Dose: 5 mg Documented By: EUNICE Aripiprazole (Aripiprazole 5 Mg Tablet) 5 mg PO DAILY [facility] Last Admin: 03/05/22 08:58 Dose: 5 mg Documented By: EUNICE Atorvastatin Calcium (Atorvastatin Calcium 40 Mg Tablet) 40 mg PO BEDTIME [facility] Last Admin: 03/04/22 20:01 Dose: 40 mg Documented By: MIMA Diltiazem HCl (Diltiazem Hcl Cd 180 Mg Cap.Er.24h) 360 mg PO DAILY [facility]; Protocol Last Admin: 03/05/22 08:58 Dose: 360 mg Documented By: EUNICE Docusate Sodium (Docusate Sodium 100 Mg Capsule) 100 mg PO DAILY PRN PRN Reason: Constipation Vancomycin HCl 1,250 mg/ (Sodium Chloride) 250 mls @ 166.667 mls/hr IV Q12H [facility] Last Infusion: 03/05/22 00:05 Dose: 0 mls/hr Documented By: MICHELLE Metoprolol Tartrate (Metoprolol Tartrate 100 Mg Tablet) 100 mg PO BID [facility]; Protocol Last Admin: 03/05/22 08:58 Dose: 100 mg Documented By: EUNICE Morphine Sulfate (Morphine Sulfate 2 Mg/Ml Cartridge) 2 mg IVPUSH Q4H PRN; Protocol PRN Reason: Pain, Mild (Pain Scale 1-3) Last Admin: 03/05/22 09:05 Dose: 2 mg Documented By: EUNICE Ondansetron HCl (Ondansetron Hcl 4 Mg/2 Ml Vial) 4 mg IVPUSH Q8H PRN PRN Reason: Nausea and Vomiting Oxycodone HCl (Oxycodone Hcl Immed Release 5 Mg Tablet) 5 mg PO Q4H PRN PRN Reason: Pain, Mild (Pain Scale 1-3) Last Admin: 03/05/22 06:18 Dose: 5 mg Documented By: MICHELLE Pharmacy Consult (Consult Rx Perform Med Rec) 1 each MISCELLANE ONCE PRN PRN Reason: Consult order Pharmacy Consult (Consult Rx Vancomycin Dosing) 1 each MISCELLANE DAILY PRN PRN Reason: Consult order Sodium Chloride (0.9 % Sodium Chloride Flush 3 Ml Syringe) 3 ml IVFLUSH QSHIFT [facility] Last Admin: 03/05/22 08:59 Dose: 3 ml Documented By: EUNICE Venlafaxine HCl (Venlafaxine Hcl Er 150 Mg Cap.Er.24h) 150 mg PO DAILY [facility] Last Admin: 03/05/22 08:58 Dose: 150 mg Documented By: EUNICE Zolpidem Tartrate (Zolpidem Tartrate 5 Mg Tablet) 10 mg PO BEDTIME PRN PRN Reason: Insomnia Last Admin: 03/04/22 20:07 Dose: 10 mg Documented By: MIMA Labs CBC & Chem 7: 03/03/22 05:58 03/05/22 05:11 Labs: Laboratory Results - last 24 hr 03/04/22 03/05/22 09:09 05:11 Estim Creat Clear Calc 146.8 Estimated GFR > 60 Vancomycin Trough 10.8 Microbiology Microbiology Results: Microbiology 03/02/22 21:41 Blood Culture - Preliminary Blood - Venous No growth after 48 hours. 03/02/22 21:41 Blood Culture - Preliminary Blood - Venous No growth after 48 hours. Assessment and Plan (1) Cellulitis of right lower extremity: Status: Acute Plan 61-year-old male with past medical history of chronic AFib, hypertension, history of alcohol abuse, history of pulmonary embolism presents to the hospital with complaints of right lower extremity edema on redness acute erysipelas/cellulitis of right lower extremity. Improving erythema, warmth, tenderness and edema right lower extremity IV vancomycin given the blackburn blisters and drainage follow cultures wound care pain control chronic AFib continue metoprolol and Eliquis mood disorder continue mood stabilizers hypertension stable continue home antihypertensive DVT prophylaxis: Katharina Attending Dr. Duarte continue hospitalization for treatment of right lower extremity cellulitis requiring IV antibiotics Quality Stroke Does the patient have a stroke diagnosis?: No VTE Prior VTE?: No VTE Risk Level:: Medical - moderate - high VTE Device Contraindication: Treatment Not Indicated VTE Drug Contraindication: N/A - Med Ordered
[2022-03-05] MEDS: vancomycin HCL 1,250 MG in 0.9 % Sodium Chloride 250 ML 166.67 MG IV ×2 (10:57→23:02)
[2022-03-05] MEDS: oxyCODONE HCl Immed Release 5 MG TABLET 10 MG PO ×3 (14:28→23:04)
[2022-03-05] MEDS: Zolpidem Tartrate 5 MG TABLET 10 MG PO (21:00)
[2022-03-05] MEDS: Atorvastatin Calcium 40 MG TABLET PO (21:00)
--- NOTE | 2022-03-05 22:12 | HE.PHANOTE ---
VANCO TROUGH 16. KEEP CURRENT DOSE OF 1250 MG Q12H. EXPECT AUC OF 528
[2022-03-06] MEDS: oxyCODONE HCl Immed Release 5 MG TABLET 10 MG PO ×5 (02:44→21:05)
[2022-03-06 06:38] LABS: Creatinine Clr Calc Pharmacy 128.2; Estimated Glomerular Filt Rate > 60
[2022-03-06] MEDS: Venlafaxine HCl ER 150 MG CAP.ER.24H PO (07:22)
[2022-03-06] MEDS: Metoprolol Tartrate 100 MG TABLET PO ×2 (07:22→21:06)
[2022-03-06] MEDS: ARIPiprazole 5 MG TABLET PO (07:22)
[2022-03-06] MEDS: Apixaban 5 MG TABLET PO ×2 (07:22→21:06)
[2022-03-06] MEDS: dilTIAZem HCL CD 180 MG CAP.ER.24H 360 MG PO (07:22)
[2022-03-06] MEDS: 0.9 % Sodium Chloride Flush 3 ML SYRINGE IVFLUSH ×3 (07:23→22:57)
[2022-03-06 07:25] VITALS: BP 124/81; PULSE 70; RESP 19; TEMP 35.7; O2SAT 98
--- NOTE | 2022-03-06 08:10 | HE.PHANOTE ---
DENNIS ABDI CONTINUE CURRENT DOSE, NEXT TROUGH SCHEDULED 03/07 @0900
[2022-03-06 08:47] LABS: Hematocrit 33.6 % (42.0-52.0); Hemoglobin 9.9 g/dl (14.0-18.0); Mean Corpuscular HGB Conc 29.5 g/dl (31.0-36.0); Mean Corpuscular Hemoglobin 26.5 pg (27.0-33.0); Mean Corpuscular Volume 90.1 fL (80.0-98.0); Mean Platelet Volume 9.9 fL (9.4-12.4); Platelet Count 433 X10*3/uL (160-400); Red Blood Count 3.73 X10*6/uL (4.60-5.80); Red Cell Distribution Width 17.1 % (11.0-16.0); White Blood Count 11.1 X10*3/uL (4.8-10.8)
[2022-03-06 09:46] LABS: Anion Gap 15 (12-20); Blood Urea Nitrogen 17 mg/dL (9-16); Calcium 8.5 mg/dL (8.4-10.2); Carbon Dioxide 23 mmol/L (22-29); Chloride 103 mmol/L (96-108); Creatinine Clr Calc Pharmacy 136.1; Estimated Glomerular Filt Rate > 60; Glucose Random 109 mg/dL (60-115); Potassium 4.3 mmol/L (3.3-5.1); Sodium 137 mmol/L (135-145)
[2022-03-06 10:57] VITALS: BP 126/58; PULSE 55; RESP 19; TEMP 36.2; O2SAT 98
[2022-03-06] MEDS: vancomycin HCL 1,250 MG in 0.9 % Sodium Chloride 250 ML 166.67 MG IV ×2 (11:10→23:09)
--- NOTE | 2022-03-06 14:29 | P.PNIM_ITS ---
Subjective Subjective Date of Service: 03/06/22 Interval History: Follow up cellulitis feeling better but still with pain Review of Systems says heart rate boyd seems to be improving, Denies any chest pain or shortness of breath or abdominal pain or fever chills or cough or phlegm Physical Exam Vital Signs: Vital Signs: Last Vital Signs Temp 97.2 F 03/06/22 10:57 Pulse 55 03/06/22 10:57 Resp 19 03/06/22 10:57 BP 126/58 L 03/06/22 10:57 Pulse Ox 98 03/06/22 10:57 O2 Del Method 03/06/22 10:57 BMI result Body Mass Index 43.2 Appearing in no acute distress lung sounds are clear to auscultation heart regular rate rhythm, clear S1, S2 positive bowel sounds, abdomen is soft, nontender neuro patient is alert x3, no focal deficits Objective Data Active Medications Acetaminophen (Acetaminophen 325 Mg Tablet) 650 mg PO Q6H PRN PRN Reason: Pain, Mild (Pain Scale 1-3) Apixaban (Apixaban 5 Mg Tablet) 5 mg PO BID [facility] Last Admin: 03/06/22 07:22 Dose: 5 mg Documented By: EUNICE Aripiprazole (Aripiprazole 5 Mg Tablet) 5 mg PO DAILY [facility] Last Admin: 03/06/22 07:22 Dose: 5 mg Documented By: EUNICE Atorvastatin Calcium (Atorvastatin Calcium 40 Mg Tablet) 40 mg PO BEDTIME [facility] Last Admin: 03/05/22 21:00 Dose: 40 mg Documented By: DRAKE Diltiazem HCl (Diltiazem Hcl Cd 180 Mg Cap.Er.24h) 360 mg PO DAILY [facility]; Protocol Last Admin: 03/06/22 07:22 Dose: 360 mg Documented By: EUNICE Docusate Sodium (Docusate Sodium 100 Mg Capsule) 100 mg PO DAILY PRN PRN Reason: Constipation Vancomycin HCl 1,250 mg/ (Sodium Chloride) 250 mls @ 166.667 mls/hr IV Q12H [facility] Last Infusion: 03/06/22 13:15 Dose: 166.67 mls/hr Documented By: EUNICE Metoprolol Tartrate (Metoprolol Tartrate 100 Mg Tablet) 100 mg PO BID [facility]; Protocol Last Admin: 03/06/22 07:22 Dose: 100 mg Documented By: EUNICE Ondansetron HCl (Ondansetron Hcl 4 Mg/2 Ml Vial) 4 mg IVPUSH Q8H PRN PRN Reason: Nausea and Vomiting Oxycodone HCl (Oxycodone Hcl Immed Release 5 Mg Tablet) 10 mg PO Q4H PRN PRN Reason: Pain, Mild (Pain Scale 1-3) Last Admin: 03/06/22 11:11 Dose: 10 mg Documented By: EUNICE Pharmacy Consult (Consult Rx Perform Med Rec) 1 each MISCELLANE ONCE PRN PRN Reason: Consult order Pharmacy Consult (Consult Rx Vancomycin Dosing) 1 each MISCELLANE DAILY PRN PRN Reason: Consult order Sodium Chloride (0.9 % Sodium Chloride Flush 3 Ml Syringe) 3 ml IVFLUSH QSHIFT [facility] Last Admin: 03/06/22 07:23 Dose: 3 ml Documented By: EUNICE Venlafaxine HCl (Venlafaxine Hcl Er 150 Mg Cap.Er.24h) 150 mg PO DAILY [facility] Last Admin: 03/06/22 07:22 Dose: 150 mg Documented By: EUNICE Zolpidem Tartrate (Zolpidem Tartrate 5 Mg Tablet) 10 mg PO BEDTIME PRN PRN Reason: Insomnia Last Admin: 03/05/22 21:00 Dose: 10 mg Documented By: DRAKE Labs CBC & Chem 7: 03/06/22 08:42 03/06/22 08:42 Labs: Laboratory Results - last 24 hr 03/05/22 03/06/22 03/06/22 21:04 05:14 08:42 MCV 90.1 MCH 26.5 L MCHC 29.5 L RDW 17.1 H Plt Count 433 H D MPV 9.9 Absolute Nucleated RBC 0.000 Nucleated RBC % (auto) 0.0 Anion Gap Estim Creat Clear Calc 128.2 Estimated GFR > 60 Random Glucose Calcium Vancomycin Trough 16.0 03/06/22 08:42 MCV MCH MCHC RDW Plt Count MPV Absolute Nucleated RBC Nucleated RBC % (auto) Anion Gap 15 Estim Creat Clear Calc 136.1 Estimated GFR > 60 Random Glucose 109 Calcium 8.5 D Vancomycin Trough Assessment and Plan (1) Cellulitis of right lower extremity: Status: Acute Plan 61-year-old male with past medical history of chronic AFib, hypertension, history of alcohol abuse, history of pulmonary embolism presents to the hospital with complaints of right lower extremity edema on redness acute erysipelas/cellulitis of right lower extremity. Improving daily erythema, warmth, tenderness and edema right lower extremity IV vancomycin given the blackburn blisters and drainage cultures neg wound care pain control chronic AFib continue metoprolol and Eliquis mood disorder continue mood stabilizers hypertension stable continue home antihypertensive DVT prophylaxis: Katharina Attending Dr. Duarte DISPSalina 2 more days of IV abx then back to SNF continue hospitalization for treatment of right lower extremity cellulitis requiring IV antibiotics Quality Stroke Does the patient have a stroke diagnosis?: No VTE Prior VTE?: No VTE Risk Level:: Medical - moderate - high VTE Device Contraindication: Treatment Not Indicated VTE Drug Contraindication: N/A - Med Ordered
--- NOTE | 2022-03-06 14:54 | MHC.CM.PN ---
PATIENT UPDATES SENT TO [facility] VIA [employer]. PLAN IS 1-2 MORE DAYS OF IV ABX
[2022-03-06 19:21] VITALS: BP 101/60; PULSE 75; RESP 18; TEMP 36.5; O2SAT 96
[2022-03-06] MEDS: Zolpidem Tartrate 5 MG TABLET 10 MG PO (21:05)
[2022-03-06] MEDS: Atorvastatin Calcium 40 MG TABLET PO (21:06)
[2022-03-06 23:55] VITALS: BP 107/67; PULSE 66; RESP 16; TEMP 36.6; O2SAT 98
[2022-03-07] MEDS: oxyCODONE HCl Immed Release 5 MG TABLET 10 MG PO ×6 (00:42→21:42)
[2022-03-07] MEDS: Apixaban 5 MG TABLET PO ×2 (07:22→19:23)
[2022-03-07] MEDS: Metoprolol Tartrate 100 MG TABLET PO (07:22)
[2022-03-07] MEDS: ARIPiprazole 5 MG TABLET PO (07:23)
[2022-03-07] MEDS: Venlafaxine HCl ER 150 MG CAP.ER.24H PO (07:23)
[2022-03-07] MEDS: 0.9 % Sodium Chloride Flush 3 ML SYRINGE IVFLUSH ×3 (07:23→23:41)
[2022-03-07] MEDS: dilTIAZem HCL CD 180 MG CAP.ER.24H 360 MG PO (07:23)
[2022-03-07 07:35] VITALS: BP 96/53; PULSE 70; RESP 19; TEMP 35.8; O2SAT 98
--- NOTE | 2022-03-07 08:00 | P.PNIM_ITS ---
Subjective Subjective Date of Service: 03/07/22 Interval History: Follow up cellulitis feeling better but still with pain Review of Systems says heart rate boyd seems to be improving, Denies any chest pain or shortness of breath or abdominal pain or fever chills or cough or phlegm Physical Exam Vital Signs: Vital Signs: Last Vital Signs Temp 96.4 F L 03/07/22 07:35 Pulse 70 03/07/22 07:35 Resp 19 03/07/22 07:35 BP 96/53 L 03/07/22 07:35 Pulse Ox 98 03/07/22 07:35 O2 Del Method 03/07/22 07:35 BMI result Body Mass Index 43.2 Appearing in no acute distress lung sounds are clear to auscultation heart regular rate rhythm, clear S1, S2 positive bowel sounds, abdomen is soft, nontender neuro patient is alert x3, no focal deficits Objective Data Active Medications Acetaminophen (Acetaminophen 325 Mg Tablet) 650 mg PO Q6H PRN PRN Reason: Pain, Mild (Pain Scale 1-3) Apixaban (Apixaban 5 Mg Tablet) 5 mg PO BID [facility] Last Admin: 03/07/22 07:22 Dose: 5 mg Documented By: EUNICE Aripiprazole (Aripiprazole 5 Mg Tablet) 5 mg PO DAILY [facility] Last Admin: 03/07/22 07:23 Dose: 5 mg Documented By: EUNICE Atorvastatin Calcium (Atorvastatin Calcium 40 Mg Tablet) 40 mg PO BEDTIME [facility] Last Admin: 03/06/22 21:06 Dose: 40 mg Documented By: DRAKE Diltiazem HCl (Diltiazem Hcl Cd 180 Mg Cap.Er.24h) 360 mg PO DAILY [facility]; Protocol Last Admin: 03/07/22 07:23 Dose: 360 mg Documented By: EUNICE Docusate Sodium (Docusate Sodium 100 Mg Capsule) 100 mg PO DAILY PRN PRN Reason: Constipation Vancomycin HCl 1,250 mg/ (Sodium Chloride) 250 mls @ 166.667 mls/hr IV Q12H [facility] Last Infusion: 03/07/22 00:41 Dose: 0 mls/hr Documented By: DRAKE Metoprolol Tartrate (Metoprolol Tartrate 100 Mg Tablet) 100 mg PO BID [facility]; Protocol Last Admin: 03/07/22 07:22 Dose: 100 mg Documented By: EUNICE Ondansetron HCl (Ondansetron Hcl 4 Mg/2 Ml Vial) 4 mg IVPUSH Q8H PRN PRN Reason: Nausea and Vomiting Oxycodone HCl (Oxycodone Hcl Immed Release 5 Mg Tablet) 10 mg PO Q4H PRN PRN Reason: Pain, Mild (Pain Scale 1-3) Last Admin: 03/07/22 04:35 Dose: 10 mg Documented By: DRAKE Pharmacy Consult (Consult Rx Perform Med Rec) 1 each MISCELLANE ONCE PRN PRN Reason: Consult order Pharmacy Consult (Consult Rx Vancomycin Dosing) 1 each MISCELLANE DAILY PRN PRN Reason: Consult order Sodium Chloride (0.9 % Sodium Chloride Flush 3 Ml Syringe) 3 ml IVFLUSH QSHIFT [facility] Last Admin: 03/07/22 07:23 Dose: 3 ml Documented By: EUNICE Venlafaxine HCl (Venlafaxine Hcl Er 150 Mg Cap.Er.24h) 150 mg PO DAILY [facility] Last Admin: 03/07/22 07:23 Dose: 150 mg Documented By: EUNICE Zolpidem Tartrate (Zolpidem Tartrate 5 Mg Tablet) 10 mg PO BEDTIME PRN PRN Reason: Insomnia Last Admin: 03/06/22 21:05 Dose: 10 mg Documented By: DRAKE Labs CBC & Chem 7: 03/06/22 08:42 03/07/22 05:42 Labs: Laboratory Results - last 24 hr 03/06/22 03/06/22 08:42 08:42 MCV 90.1 MCH 26.5 L MCHC 29.5 L RDW 17.1 H Plt Count 433 H D MPV 9.9 Absolute Nucleated RBC 0.000 Nucleated RBC % (auto) 0.0 Anion Gap 15 Estim Creat Clear Calc 136.1 Estimated GFR > 60 Random Glucose 109 Calcium 8.5 D Assessment and Plan (1) Cellulitis of right lower extremity: Status: Acute Plan 61-year-old male with past medical history of chronic AFib, hypertension, hist ory of alcohol abuse, history of pulmonary embolism presents to the hospital with complaints of right lower extremity edema on redness acute erysipelas/cellulitis of right lower extremity. Improving daily erythema, warmth, tenderness and edema right lower extremity IV vancomycin given the blackburn blisters and drainage cultures neg wound care - silver alginate, Alexandro wrap lower extremity and foot, daily pain control ID consult for recommendation of oral antibiotics chronic AFib continue metoprolol and Katharina mood disorder continue mood stabilizers hypertension stable continue home antihypertensive DVT prophylaxis: Katharina Attending Dr. Gerald FUNES 1 more days of IV abx then back to SNF on oral antibiotics continue hospitalization for treatment of right lower extremity cellulitis requ iring IV antibiotics Quality Stroke Does the patient have a stroke diagnosis?: No VTE Prior VTE?: No VTE Risk Level:: Medical - moderate - high VTE Device Contraindication: Treatment Not Indicated VTE Drug Contraindication: N/A - Med Ordered
[2022-03-07 08:02] LABS: Creatinine Clr Calc Pharmacy 132.8; Estimated Glomerular Filt Rate > 60
[2022-03-07 09:59] LABS: Vancomycin Trough 17.2 mcg/mL (10.0-20.0)
[2022-03-07] MEDS: vancomycin HCL 1,250 MG in 0.9 % Sodium Chloride 250 ML 166.67 MG IV ×2 (10:51→21:47)
[2022-03-07 11:08] VITALS: BP 121/84; PULSE 70; RESP 18; TEMP 35.6; O2SAT 98
--- NOTE | 2022-03-07 12:57 | MHC.CM.PN ---
PLAN IS ONE MORE DAY OF IV ABX AND RETURN TO [facility] Saturday03/08/22 [facility] UPDATED IN [facility].
[2022-03-07 15:27] VITALS: BP 122/70; PULSE 76; RESP 18; TEMP 36.7; O2SAT 99
[2022-03-07] MEDS: Atorvastatin Calcium 40 MG TABLET PO (19:23)
[2022-03-07] MEDS: Zolpidem Tartrate 5 MG TABLET 10 MG PO (19:27)
[2022-03-07 20:00] VITALS: BP 124/68; PULSE 89; RESP 18; TEMP 36.7; O2SAT 99
--- NOTE | 2022-03-07 21:02 | W.PM.IDCN ---
History of Present Illness Data of Consult Service Date: 03/07/22 Requesting physician: Stephanie Recio Primary Care Provider: Bambi Kim MD HPI Reason for consult: right leg cellulitis He presents with at least two weeks weepy hot red leg. He has had leg swelling as well and redness towards knee. He denies fever or chills at this time. Review of Systems Review of Systems: Yes all other systems are reviewed and are negative PMFSH Past Medical History Medical History ARIAN (acute kidney injury) Alcohol dependence Alcohol intoxication Alcohol withdrawal Alcohol withdrawal delirium Anemia Atrial fibrillation with RVR Atrial fibrillation with RVR Atrial fibrillation with RVR Chest pain Chronic atrial fibrillation Depression Dyslipidemia Heart failure with left ventricular ejection fraction greater than or equal to 50 percent History of alcohol abuse Incarcerated incisional hernia Insomnia Metabolic acidosis with increased anion gap and accumulation of organic acids Morbid obesity Obesity Oral thrush Pulmonary embolism Sciatica Thoracic aortic aneurysm Toenail deformity Family History Family History Mother No problems noted. Father No problems noted. Family/Other Substance use disorder Family history: reviewed and not pertinent Surgical History Surgical History History of incisional hernia repair History of inguinal hernia repair Hx of gastric bypass S/P cholecystectomy Social History Social History Household Members: Other Household Members Other:: lives with mother [facility]: [facility] Do you presently have visiting nurse or other home services: No Unable to assess alcohol history related to: Unable to respond Alcohol intake: never Patient Tobacco Use Status: Never used Tobacco Smoked in Last 30 Days: No e-Cigarette/Vaping Use: Never Used Second Hand Smoke Exposure: No Use of substances other than those prescribed or required for medical reasons: No Currently Displaying Signs/Symptoms of Drug Intoxication Withdrawal: No Any prior treatment program specific to substance use: No Have you been hit, kicked, punched, or otherwise hurt by someone within the past year? If so, by whom?: No Do you feel safe in your current relationship?: No Current Relationship Is there a partner from a previous relationship who is making you feel unsafe now?: No Are you made to feel afraid or neglected: No Spiritual Healthcare Practices: NA [facility] Practices: NA Cultural Healthcare Practices: NA Advance Directives: Yes Advance Directives on File: Yes Advance Directives Date on File: 03/13/21 Do you have thoughts of harming others: None Do you have a plan to hurt others: No Plan Recently lost weight without trying: No Eating poorly because of decreased appetite: No Nutrition Risks: No Nutritional Risk Poor oral hygiene: No service: No Current occupational status: retired [employer] Allergies Allergy/AdvReac Type Severity Reaction Status Date / Time No Known Allergies Allergy Verified 12/15/20 05:52 Active Medications: Current Medications Acetaminophen (Acetaminophen 325 Mg Tablet) 650 mg PO Q6H PRN PRN Reason: Pain, Mild (Pain Scale 1-3) Apixaban (Apixaban 5 Mg Tablet) 5 mg PO BID [facility] Last Admin: 03/07/22 19:23 Dose: 5 mg Aripiprazole (Aripiprazole 5 Mg Tablet) 5 mg PO DAILY [facility] Last Admin: 03/07/22 07:23 Dose: 5 mg Atorvastatin Calcium (Atorvastatin Calcium 40 Mg Tablet) 40 mg PO BEDTIME [facility] Last Admin: 03/07/22 19:23 Dose: 40 mg Diltiazem HCl (Diltiazem Hcl Cd 180 Mg Cap.Er.24h) 360 mg PO DAILY [facility]; Protocol Last Admin: 03/07/22 07:23 Dose: 360 mg Docusate Sodium (Docusate Sodium 100 Mg Capsule) 100 mg PO DAILY PRN PRN Reason: Constipation Vancomycin HCl 1,250 mg/ (Sodium Chloride) 250 mls @ 166.667 mls/hr IV Q12H [facility] Last Infusion: 03/07/22 12:26 Dose: Infused Metoprolol Tartrate (Metoprolol Tartrate 100 Mg Tablet) 100 mg PO BID [facility]; Protocol Last Admin: 03/07/22 07:22 Dose: 100 mg Ondansetron HCl (Ondansetron Hcl 4 Mg/2 Ml Vial) 4 mg IVPUSH Q8H PRN PRN Reason: Nausea and Vomiting Oxycodone HCl (Oxycodone Hcl Immed Release 5 Mg Tablet) 10 mg PO Q4H PRN PRN Reason: Pain, Mild (Pain Scale 1-3) Last Admin: 03/07/22 17:21 Dose: 10 mg Pharmacy Consult (Consult Rx Perform Med Rec) 1 each MISCELLANE ONCE PRN PRN Reason: Consult order Pharmacy Consult (Consult Rx Vancomycin Dosing) 1 each MISCELLANE DAILY PRN PRN Reason: Consult order Sodium Chloride (0.9 % Sodium Chloride Flush 3 Ml Syringe) 3 ml IVFLUSH QSHIFT [facility] Last Admin: 03/07/22 17:22 Dose: 3 ml Venlafaxine HCl (Venlafaxine Hcl Er 150 Mg Cap.Er.24h) 150 mg PO DAILY [facility] Last Admin: 03/07/22 07:23 Dose: 150 mg Zolpidem Tartrate (Zolpidem Tartrate 5 Mg Tablet) 10 mg PO BEDTIME PRN PRN Reason: Insomnia Last Admin: 03/07/22 19:27 Dose: 10 mg Home Medications Medication Instructions Recorded Confirmed Last Taken Type zolpidem 10 mg tablet 10 mg PO BEDTIME PRN Insomnia 01/20/22 03/03/22 Unknown History acetaminophen 325 mg tablet 650 mg PO Q4H PRN Fever Or Pain 03/03/22 03/03/22 Unknown History diltiazem HCl 180 mg 180 mg PO DAILY 03/03/22 03/03/22 03/02/22 History capsule,extended release 24 hr, controlled (DILT-XR) doxycycline hyclate 100 mg tablet 100 mg PO BID 03/03/22 03/03/22 03/02/22 History furosemide 80 mg tablet 80 mg PO BID PRN Edema 03/03/22 03/03/22 Unknown History gabapentin 100 mg capsule 200 mg PO TID 03/03/22 03/03/22 03/02/22 History gabapentin 300 mg capsule 300 mg PO TID 03/03/22 03/03/22 03/02/22 History spironolactone 50 mg tablet 50 mg PO BID 03/03/22 03/03/22 03/02/22 History vilazodone 20 mg tablet 20 mg PO DAILY DEPRESSION 03/03/22 03/03/22 03/02/22 History Physical Exam Vital Signs: Vital Signs: Last Vital Signs Temp 98.0 F 03/07/22 20:00 Pulse 89 03/07/22 20:00 Resp 18 03/07/22 20:00 BP 124/68 03/07/22 20:00 Pulse Ox 99 03/07/22 20:00 O2 Del Method 03/07/22 20:00 BMI result Body Mass Index 43.2 Extrem: Other: right leg hot and red Results Labs CBC & Chem 7: 03/06/22 08:42 03/07/22 05:42 Labs: BMP 03/07/22 05:42 Creatinine 0.84 Microbiology Microbiology Results: Microbiology 03/02/22 21:41 Blood - Venous Blood Culture - Preliminary No growth after 48 hours. 03/02/22 21:41 Blood - Venous Blood Culture - Preliminary No growth after 48 hours. Assessment and Plan (1) Cellulitis of right lower extremity: Status: Acute He has gram positive such as MRSA or MSSA. He has worsening redness and swelling Plan Would continue Vancomycin and elevate. Venous stasis treatment per Dr Galarza Possible po Doxycycline 100 mg bid for a week after
[2022-03-08] VITALS: BP 111/66; PULSE 81; RESP 14; TEMP 36; O2SAT 99
[2022-03-08] MEDS: oxyCODONE HCl Immed Release 5 MG TABLET 10 MG PO ×4 (01:36→13:06)
[2022-03-08 04:00] VITALS: BP 103/50; PULSE 79; RESP 14; TEMP 36.1; O2SAT 94
[2022-03-08 06:41] LABS: Creatinine Clr Calc Pharmacy 128.2; Estimated Glomerular Filt Rate > 60
[2022-03-08] MEDS: Venlafaxine HCl ER 150 MG CAP.ER.24H PO (07:21)
[2022-03-08] MEDS: Acetaminophen 325 MG TABLET 650 MG PO (07:21)
[2022-03-08] MEDS: ARIPiprazole 5 MG TABLET PO (07:21)
[2022-03-08] MEDS: Apixaban 5 MG TABLET PO (07:21)
[2022-03-08] MEDS: 0.9 % Sodium Chloride Flush 3 ML SYRINGE IVFLUSH (07:22)
[2022-03-08 07:33] VITALS: BP 120/76; PULSE 88; RESP 16; TEMP 36; O2SAT 100
[2022-03-08 09:30] LABS: Vancomycin Trough 19.5 mcg/mL (10.0-20.0)
--- NOTE | 2022-03-08 10:01 | HE.PHANOTE ---
RE: yeceniao Pt's trough on 03/08 came back at 19.5; decreasing dose to 1000mg Q12H with predicted AUC of 421mg/L. Next level to be drawn 03/09/22 @0900
[2022-03-08] MEDS: vancomycin HCL 1,000 MG in 0.9 % Sodium Chloride 250 ML 270 MG IV (10:17)
[2022-03-08 11:06] VITALS: BP 111/66; PULSE 80; RESP 15; TEMP 35.8; O2SAT 95
--- NOTE | 2022-03-08 12:18 | P.DS_ITS ---
DS: Providers Provider Date of Service: 03/08/22 Date of admission: 03/03/22 00:20 Date of discharge: 03/08/22 Primary care physician: Bambi Kim MD Consults: 03/07/22 08:02 Consult to Infectious Diseases Routine Consulting Provider: Leanne Garcia Reason for consultation: cellulitis Has provider been notified: No Attending physician on discharge: Sudeep Duarte Discharging clinician: Chapis Toussanit DS: Diagnosis Discharge Diagnosis (1) Cellulitis of right lower extremity: Status: Acute DS: Summary Hospital Course Hospital Course: From H&P on day of admission 61-year-old male with past medical history of hyperlipidemia hypertension, mood disorder presents to the hospital with complaints of swollen red right lower extremity.? Patient reports that he noticed to the day prior, significantly swollen, red, he reports that he has 2 ulcers at the front of his leg which he follows with wound clinic for and have been doing well.? He reports feeling febrile and having chills, reports throbbing pain in his right lower extremity.? Reports no chest pain, no shortness of breath, no abdominal pain nausea vomiting, diarrhea constipation, and no urinary symptoms.? On arrival to the ED patient hemodynamically stable with no significant abnormal vitals Labs are significant for WBC count of 13.2, hemoglobin of 9.2, hematocrit 30.2, sodium 133, AST of 177, ALT of 123, Arterial duplex of lower extremity shows no evidence of any hemodynamically significant lower extremity artery disease by velocity waveform or duplex Doppler Venous duplex shows no DVT Patient started on IV antibiotics will be admitted for further management For right leg cellulitis, patient was treated with IV vancomycin. He has been afebrile and wbc trended down. Arterial duplex showed no evidence of hemodynamically significant lower extremity arterial disease. Venous ultrasound demonstrated no evidence of DVT in the right leg. He was seen by infectious diseases who recommended discharge with oral doxycycline for 1 week. Time Spent with Patient Time attestation: Total time spent providing and/or coordinating discharge services: Discharge coordination time: Greater than 30 minutes Quality: Safe Use of Opioids Does Pt have an Active Cancer Diagnosis on the Problem List?: No Quality: Stroke Does the patient have a stroke diagnosis?: No Physical Exam Vital Signs: Vital Signs: Last Vital Signs Temp 96.4 F L 03/08/22 11:06 Pulse 80 03/08/22 11:06 Resp 15 03/08/22 11:06 BP 111/66 03/08/22 11:06 Pulse Ox 95 03/08/22 11:06 O2 Del Method 03/08/22 11:06 BMI result Body Mass Index 43.2 Const: General: cooperative, comfortable, alert and awake Nutritional Appearance: obese Resp: Effort & Inspection: normal respiratory effort and able to speak in complete sentences Cardio: Rate: regular rate Heart sounds: S1 normal heart sound present and S2 normal heart sound present GI: Inspection: No distended Palpation (GI): Soft to palpation Skin: Other: DS: Data Data Completed and Pending Completed studies during hospitalization [Text1]: Procedures Detoxification Services for Substance Abuse Treatment (03/06/21) Insertion of Infusion Device into Right Atrium, Percutaneous Approach (02/08/21) Repair Abdominal Wall, Open Approach (02/08/21) Respiratory Ventilation, 24-96 Consecutive Hours (02/08/21) Labs on day of discharge: Laboratory Results - last 24 hr 03/08/22 03/08/22 05:09 08:44 Creatinine 0.87 Estim Creat Clear Calc 128.2 Estimated GFR > 60 Vancomycin Trough 19.5 Discharge Plan Discharge Anticipated Discharge Date/Time: 03/08/22 12:05 Patient Disposition: Xfer SNF Discharge Diagnosis: Right leg cellulitis Referrals: Lilia Nunez PA [Physician Motion Picture Set Up Worker] - 1 Week Bambi Machuca MD [Primary Care Provider] - 1 Week Discharge Medications: New doxycycline hyclate 100 mg tablet 100 mg PO BID 7 Days Qty: 14 0RF Continued metoprolol tartrate 100 mg Tablet 100 mg PO BID Qty: 60 0RF Protocol: Hold for SBP/HR < HOLD for SBP < : 90 HOLD for HR < : 60 oxycodone 5 mg Tablet 5 mg PO Q6H PRN (Reason: Pain, Mild (Pain Scale 1-3)) Qty: 5 0RF zolpidem 10 mg Tablet 10 mg PO BEDTIME PRN (Reason: Insomnia) acetaminophen 325 mg Tablet 650 mg PO Q4H PRN (Reason: Fever Or Pain) diltiazem HCl [DILT-XR] 180 mg Capsule,Ext.Rel 24h Degradable 180 mg PO DAILY furosemide 80 mg Tablet 80 mg PO BID PRN (Reason: Edema) gabapentin 300 mg Capsule 300 mg PO TID Rx Instructions: TOTAL DAILY DOSE 500 MG TID gabapentin 100 mg Capsule 200 mg PO TID Rx Instructions: TOTAL DAILY DOSE 500 MG TID spironolactone 50 mg Tablet 50 mg PO BID vilazodone 20 mg Tablet 20 mg PO DAILY Rx Instructions: must administer with a meal/food Eliquis 5 mg tablet 5 mg PO BID 90 Days Qty: 180 3RF aripiprazole [Abilify] 5 mg tablet 5 mg PO DAILY 90 Days Qty: 90 1RF atorvastatin 40 mg tablet 40 mg PO BEDTIME 90 Days Qty: 90 3RF venlafaxine [Effexor XR] 150 mg capsule,extended release 24hr 150 mg PO DAILY 90 Days Qty: 90 3RF Discontinued doxycycline hyclate 100 mg Tablet 100 mg PO BID Rx Instructions: FOR INFECTION RELATED TO CELLULITIS OF RIGHT LOWER LIMB FOR 10 DAYS STARTING 03/02/22 Discharge Orders: Discharge Order (Routine); Ordered 03/08/22 Ordered By: Chapis Toussaint Activity on Discharge: As tolerated Stand Alone Forms: Patient Portal Discharge page Care Plan Goals: see below Health Concerns: right leg cellulitis Plan of Treatment: complete course of antibiotics - 7 days of doxycycline follow up in wound care clinic - call to schedule appointment change silver alginate and ryan wrap dressings daily or more if dressing saturated. Recommend to keep leg elevated when able No med changes were made to baseline medications. Assessment: see discharge summary Discharge Date/Time: 03/08/22 15:10
--- NOTE | 2022-03-08 12:51 | MHC.CM.PN ---
PT CLEARED TO DC TODAY BACK TO LTC AT [facility] INFORMED OF PENDING DC VIA [facility] AWAITING RESPONSE WITH TIME THEY ARE ABLE TO ACCEPT
[2022-03-08 13:16] LABS: COVID-19 Test Negative (Negative); IDNOW Serial# 9DB6401D
== END 2022-03-08 15:10 | disposition skilled nursing facility (03) | DRG 603 ==
LOC: HO.ED 21:25 → HO.EDOVER 03-03 00:34 → HO.S3 03-03 04:19
PROVIDERS: Nurse Practitioner Acute Care; Physician Assistant; Admitting Provider Internal Medicine; Emergency Provider Emergency Medicine; PCP Internal Medicine; Visit Provider Physician Assistant Medical
DX: L03.115 Cellulitis of right lower limb (principal); Z68.41 Body mass index [BMI] 40.0-44.9, adult; I48.20 Chronic atrial fibrillation, unspecified; A46 Erysipelas; I11.0 Hypertensive heart disease with heart failure; I50.9 Heart failure, unspecified; F32.A Depression, unspecified; E78.5 Hyperlipidemia, unspecified; E66.01 Morbid (severe) obesity due to excess calories; Z20.822 Contact with and (suspected) exposure to COVID-19; Z86.711 Personal history of pulmonary embolism; Z98.84 Bariatric surgery status; Z79.01 Long term (current) use of anticoagulants; Z79.899 Other long term (current) drug therapy
CPT/HCPCS: 36415; 71045; 80048; 80053; 80202; 82565; 83605; 83735; 83880; 84484; 85025; 85027; 87040; 87635; 93005; 93926; 93971; 99285; J0696; J2270; J3010; J3370

== ENCOUNTER 2022-03-23 07:24 | Outpatient (RCR) | payer MEDICARE, MEDICAID, SELFPAY | END 2022-04-05 14:15 | disposition home or self-care (01) | LOC: HO.WCC 07:24 | PROVIDERS: Visit Provider Physician Assistant | DX: L97.811 Non-pressure chronic ulcer of other part of right lower leg limited to breakdown of skin (principal); L03.115 Cellulitis of right lower limb; I87.2 Venous insufficiency (chronic) (peripheral); R60.9 Edema, unspecified; I48.91 Unspecified atrial fibrillation; G62.9 Polyneuropathy, unspecified; Z86.718 Personal history of other venous thrombosis and embolism | CPT/HCPCS: 99213 ==

== ENCOUNTER 2022-03-30 09:13 | Emergency (ER) | payer MEDICARE, MEDICAID, SELFPAY ==
[2022-03-30 09:25] VITALS: BP 122/69; BP 128/81; PULSE 105; PULSE 99; RESP 18; TEMP 36.5; O2SAT 96; BMI 42.3
--- NOTE | 2022-03-30 11:40 | ED.GENADULT ---
HPI - General Adult General Chief complaint: Extremity Injury, Lower Stated complaint: COMING FROM WOUND CARE FOR ULTRASOUND Time Seen by Provider: 03/30/22 09:26 History of Present Illness HPI narrative: Patient sent in from wound clinic for increased swelling in the right leg to rule out DVT No shortness of breath no chest pain no fever no chills no significant pain from the leg Related Data Home Medications Medication Instructions Recorded Confirmed zolpidem 10 mg tablet 10 mg PO BEDTIME PRN Insomnia 01/20/22 03/03/22 acetaminophen 325 mg tablet 650 mg PO Q4H PRN Fever Or Pain 03/03/22 03/03/22 diltiazem HCl 180 mg 180 mg PO DAILY 03/03/22 03/03/22 capsule,extended release 24 hr, controlled (DILT-XR) furosemide 80 mg tablet 80 mg PO BID PRN Edema 03/03/22 03/03/22 gabapentin 100 mg capsule 200 mg PO TID 03/03/22 03/03/22 gabapentin 300 mg capsule 300 mg PO TID 03/03/22 03/03/22 spironolactone 50 mg tablet 50 mg PO BID 03/03/22 03/03/22 vilazodone 20 mg tablet 20 mg PO DAILY DEPRESSION 03/03/22 03/03/22 Previous Rx's Medication Instructions Recorded apixaban 5 mg tablet (Eliquis) 5 mg PO BID 90 days #180 tabs 05/25/20 aripiprazole 5 mg tablet (Abilify) 5 mg PO DAILY 90 days #90 tabs 05/25/20 atorvastatin 40 mg tablet 40 mg PO BEDTIME 90 days #90 tabs 05/25/20 venlafaxine 150 mg 150 mg PO DAILY 90 days #90 caps 05/25/20 capsule,extended release 24 hr (Effexor XR) metoprolol tartrate 100 mg tablet 100 mg PO BID #60 tabs 03/12/21 oxycodone 5 mg tablet 5 mg PO Q6H PRN Pain, Mild (Pain 03/27/21 Scale 1-3) #5 tabs doxycycline hyclate 100 mg tablet 100 mg PO BID 7 days #14 tabs 03/08/22 cephalexin 500 mg tablet 500 mg PO QID 7 days #28 tabs 03/30/22 doxycycline hyclate 100 mg capsule 100 mg PO BID 7 days #14 caps 03/30/22 Allergies Allergy/AdvReac Type Severity Reaction Status Date / Time No Known Allergies Allergy Verified 12/15/20 05:52 Review of Systems Review of Systems: Positive for right leg redness and swelling Negatives no fever no chills no dizziness no fainting no feeling faint no headache no chest pain no shortness of breath no abdominal pain no nausea or vomiting Yes all other systems are reviewed and are negative PMFSH Past Medical History Source: nursing notes reviewed Medical History ARIAN (acute kidney injury) Alcohol dependence Alcohol intoxication Alcohol withdrawal Alcohol withdrawal delirium Anemia Atrial fibrillation with RVR Atrial fibrillation with RVR Atrial fibrillation with RVR Chest pain Chronic atrial fibrillation Depression Dyslipidemia Heart failure with left ventricular ejection fraction greater than or equal to 50 percent History of alcohol abuse Incarcerated incisional hernia Insomnia Metabolic acidosis with increased anion gap and accumulation of organic acids Morbid obesity Obesity Oral thrush Pulmonary embolism Sciatica Thoracic aortic aneurysm Toenail deformity Surgical History History of incisional hernia repair History of inguinal hernia repair Hx of gastric bypass S/P cholecystectomy Family History Family History Mother No problems noted. Father No problems noted. Family/Other Substance use disorder Social History Social History Household Members: Other Household Members Other:: lives with mother Housing: [facility] Do you presently have visiting nurse or other home services: No Unable to assess alcohol history related to: Unable to respond Alcohol intake: never Patient Tobacco Use Status: Never used Tobacco e-Cigarette/Vaping Use: Never Used Second Hand Smoke Exposure: No Advance Directives: Yes Advance Directives on File: Yes Advance Directives Date on File: 03/13/21 service: No Current occupational status: retired Physical Exam ED Vital Signs: Vital Signs - 24 hr 03/30/22 09:25 Temperature 97.7 F Pulse Rate 99 Respiratory Rate 18 Blood Pressure 122/69 Pulse Oximetry 96 Oxygen Delivery Method Room Air BMI result Body Mass Index 42.3 General appearance is no acute distress, cooperative Head is normocephalic atraumatic Neck is supple Respiratory no distress Abdomen soft nontender Extremities the right leg is swollen in the lower leg area and the skin is red and there is some tenderness There is full range of motion in the right leg Pulses are intact distal The neuro motor is 5/5 x4, patient is A&O x3, comprehension and expression are intact Course Course Course Narrative: Patient sent from Wound Clinic for increased redness and swelling of the right leg The wound he is followed for has actually improved but they noted that the right leg was red and swollen he was sent here for an ultrasound The ultrasound did not show any DVT and we are treating for cellulitis with Keflex and doxycycline I called the bandage assisted in [place] to make them aware of the diagnosis, I spoke to the nurse who said that they can check the leg every day and that the nurse practitioner can follow it and check in 2 or 3 days so he will be discharged on oral antibiotics back to the assisted Right now he is afebrile, comfortable and is being treated for an isolated cellulitis of the right leg with no evidence of systemic disease or sepsis Medications Administered Discontinued Medications Generic Name Dose Route Start Last Admin Trade Name Freq PRN Reason Stop Dose Admin Cephalexin HCl 500 mg 03/30/22 11:46 03/30/22 12:25 Cephalexin 500 Mg Capsule PO 03/30/22 11:47 500 mg ONCE ONE Administration Doxycycline Monohydrate 100 mg 03/30/22 11:46 03/30/22 12:25 Doxycycline Monohydrate 100 Mg Capsule PO 03/30/22 11:47 100 mg ONCE ONE Administration Discharge Plan Discharge Clinical Impression: Cellulitis of leg, right Patient Disposition: Home, Self-Care Additional Instructions: Ultrasound was negative for blood clot As the leg is getting redder and more swollen this is likely a skin infection cellulitis which we are treating with doxycycline and Keflex I gave paper prescriptions, this should be checked daily to make sure it is not spreading and should be checked by the nurse every day If possible nurse practitioner should check as well within 2-3 days Return to the ER any time for spreading redness, worse pain and swelling, fever confusion any worse condition or any concerns Prescriptions: New doxycycline hyclate 100 mg capsule 100 mg PO BID 7 Days Qty: 14 0RF cephalexin 500 mg tablet 500 mg PO QID 7 Days Qty: 28 0RF No Action metoprolol tartrate 100 mg Tablet 100 mg PO BID Qty: 60 0RF Protocol: Hold for SBP/HR < HOLD for SBP < : 90 HOLD for HR < : 60 oxycodone 5 mg Tablet 5 mg PO Q6H PRN (Reason: Pain, Mild (Pain Scale 1-3)) Qty: 5 0RF zolpidem 10 mg Tablet 10 mg PO BEDTIME PRN (Reason: Insomnia) acetaminophen 325 mg Tablet 650 mg PO Q4H PRN (Reason: Fever Or Pain) diltiazem HCl [DILT-XR] 180 mg Capsule,Ext.Rel 24h Degradable 180 mg PO DAILY furosemide 80 mg Tablet 80 mg PO BID PRN (Reason: Edema) gabapentin 300 mg Capsule 300 mg PO TID Rx Instructions: TOTAL DAILY DOSE 500 MG TID gabapentin 100 mg Capsule 200 mg PO TID Rx Instructions: TOTAL DAILY DOSE 500 MG TID spironolactone 50 mg Tablet 50 mg PO BID vilazodone 20 mg Tablet 20 mg PO DAILY Rx Instructions: must administer with a meal/food doxycycline hyclate 100 mg tablet 100 mg PO BID 7 Days Qty: 14 0RF Eliquis 5 mg tablet 5 mg PO BID 90 Days Qty: 180 3RF aripiprazole [Abilify] 5 mg tablet 5 mg PO DAILY 90 Days Qty: 90 1RF atorvastatin 40 mg tablet 40 mg PO BEDTIME 90 Days Qty: 90 3RF venlafaxine [Effexor XR] 150 mg capsule,extended release 24hr 150 mg PO DAILY 90 Days Qty: 90 3RF
[2022-03-30] MEDS: Doxycycline Monohydrate 100 MG CAPSULE PO (12:25)
[2022-03-30] MEDS: cephALEXin 500 MG CAPSULE PO (12:25)
== END 2022-03-30 14:47 | disposition home or self-care (01) ==
PROVIDERS: Emergency Provider Student in an Organized Health Care Education/Training Program; PCP Internal Medicine
DX: R60.0 Localized edema (principal); L03.115 Cellulitis of right lower limb; Z79.899 Other long term (current) drug therapy
CPT/HCPCS: 93971; 99283; 99284

== ENCOUNTER 2022-04-19 01:13 | Inpatient (IN) | payer MEDICARE, MEDICAID, SELFPAY ==
[2022-04-19] VITALS (10 sets, daily range): BP systolic 109–136; BP diastolic 66–84; PULSE 89–116; RESP 11–18; TEMP 36.3–36.8; O2SAT 95–99; BMI 42.0
--- NOTE | ~2022-04-19 | XR_ITS ---
EXAMINATION: XR CHEST CLINICAL INFORMATION: Rule out CHF COMPARISON: 02/25/2022 TECHNIQUE: Frontal view of the chest was obtained. FINDINGS: Cardiac leads overlie the chest. The lungs are well expanded. No consolidation, edema, or effusion. No pneumothorax. The cardiomediastinal silhouette remains enlarged. XR/XR chest 1V IMPRESSION: No acute pulmonary disease. Enlarged cardiac silhouette.
--- NOTE | 2022-04-19 02:01 | ECG_ITS ---
Test Reason : ABD Pain Blood Pressure : / mmHG Vent. Rate : 116 BPM Atrial Rate : 000 BPM P-R Int : 000 ms QRS Dur : 154 ms QT Int : 346 ms P-R-T Axes : 000 -19 009 degrees QTc Int : 480 ms Atrial fibrillation with rapid ventricular response with premature ventricular or aberrantly conducted complexes Right bundle branch block Abnormal ECG When compared with ECG of 19-APR-2022 02:09, No significant changes seen Referred By: Generic ED Physician Electronically Signed By:Jose Elias Bishop
--- NOTE | 2022-04-19 02:20 | ED.GENADULT ---
HPI - General Adult General Chief complaint: General Medical Stated complaint: LEG PAIN Time Seen by Provider: 04/19/22 02:07 Source: patient and EMS Mode of arrival: EMS Limitations: no limitations History of Present Illness HPI narrative: Patient comes to the emergency room Complaining of chronic bilateral leg pain and more swelling than usual. Patient states that the swelling in his legs is chronic, states that he has had multiple ultrasounds in the past and has been negative for blood clots. Patient states that he has not taken his oxycodone today and that is making his legs hurt more. Patient arrived in AFib with a heart rate of 130. Patient states that he is compliant with his medications. Patient admits to drinking 6 beers tonight. Related Data Home Medications Medication Instructions Recorded Confirmed zolpidem 10 mg tablet 10 mg PO BEDTIME PRN Insomnia 01/20/22 03/03/22 acetaminophen 325 mg tablet 650 mg PO Q4H PRN Fever Or Pain 03/03/22 03/03/22 diltiazem HCl 180 mg 180 mg PO DAILY 03/03/22 03/03/22 capsule,extended release 24 hr, controlled (DILT-XR) furosemide 80 mg tablet 80 mg PO BID PRN Edema 03/03/22 03/03/22 gabapentin 100 mg capsule 200 mg PO TID 03/03/22 03/03/22 gabapentin 300 mg capsule 300 mg PO TID 03/03/22 03/03/22 spironolactone 50 mg tablet 50 mg PO BID 03/03/22 03/03/22 vilazodone 20 mg tablet 20 mg PO DAILY DEPRESSION 03/03/22 03/03/22 Previous Rx's Medication Instructions Recorded apixaban 5 mg tablet (Eliquis) 5 mg PO BID 90 days #180 tabs 05/25/20 aripiprazole 5 mg tablet (Abilify) 5 mg PO DAILY 90 days #90 tabs 05/25/20 atorvastatin 40 mg tablet 40 mg PO BEDTIME 90 days #90 tabs 05/25/20 venlafaxine 150 mg 150 mg PO DAILY 90 days #90 caps 05/25/20 capsule,extended release 24 hr (Effexor XR) metoprolol tartrate 100 mg tablet 100 mg PO BID #60 tabs 03/12/21 oxycodone 5 mg tablet 5 mg PO Q6H PRN Pain, Mild (Pain 03/27/21 Scale 1-3) #5 tabs doxycycline hyclate 100 mg tablet 100 mg PO BID 7 days #14 tabs 03/08/22 cephalexin 500 mg tablet 500 mg PO QID 7 days #28 tabs 03/30/22 doxycycline hyclate 100 mg capsule 100 mg PO BID 7 days #14 caps 03/30/22 Allergies Allergy/AdvReac Type Severity Reaction Status Date / Time No Known Allergies Allergy Verified 12/15/20 05:52 Review of Systems Review of Systems: Constitutional : No Weight loss, No Fever, No Chills, No Night Sweats, No Fatigue, No Malaise ENT/Mouth : No Hearing loss, No Ear Pain, No Nasal Congestion, No Sinus Pain, No Hoarseness, No sore throat, No Rhinorrhea, No Swallowing Difficulty Eyes: No Eye Pain, No Swelling, No Redness, No Foreign Body, No Discharge, No Vision Changes Cardiovascular : No Chest Pain, No SOB, No Dyspnea on Exertion, No Orthopnea, No Edema, No Palpitations Respiratory : No Cough, No Sputum, No Wheezing, No Smoke Exposure, No Dyspnea Gastrointestinal : No Nausea, No Vomiting, No Diarrhea, No Constipation, No abdominal Pain, No Hematochezia, No Melena Genitourinary : no irregular bleeding, No Dysuria, No Urinary Frequency, No Hematuria, No Urinary Incontinence, No Urgency, No Flank Pain, No Urinary Flow Changes, No Hesitancy Musculoskeletal : Complaining of bilateral lower extremity pain and swelling which is chronic Skin : No Skin Lesions, No rash Neuro : No Weakness, No Numbness, No Paresthesias, No Loss of Consciousness, No Dizziness, No Headache Psych : No Anxiety/Panic, No Depression, No SI/HI/AH/VH, No Social Issues, Heme/Lymph: No Bruising, No Bleeding,No Lymphadenopathy Endocrine : No Polyuria, No Polydipsia, No Temperature Intolerance [facility] Past Medical History Medical History ARIAN (acute kidney injury) Alcohol dependence Alcohol intoxication Alcohol withdrawal Alcohol withdrawal delirium Anemia Atrial fibrillation with RVR Atrial fibrillation with RVR Atrial fibrillation with RVR Chest pain Chronic atrial fibrillation Depression Dyslipidemia Heart failure with left ventricular ejection fraction greater than or equal to 50 percent History of alcohol abuse Incarcerated incisional hernia Insomnia Metabolic acidosis with increased anion gap and accumulation of organic acids Morbid obesity Obesity Oral thrush Pulmonary embolism Sciatica Thoracic aortic aneurysm Toenail deformity Surgical History History of incisional hernia repair History of inguinal hernia repair Hx of gastric bypass S/P cholecystectomy Family History Family History Mother No problems noted. Father No problems noted. Family/Other Substance use disorder Social History Social History Household Members: Other Household Members Other:: lives with mother Housing: Intermediate Do you presently have visiting nurse or other home services: No Unable to assess alcohol history related to: Unable to respond Alcohol intake: current Alcohol intake frequency: a few times a week Alcohol type: beer Patient Tobacco Use Status: Never used Tobacco Smoked in Last 30 Days: No e-Cigarette/Vaping Use: Never Used Second Hand Smoke Exposure: No Use of substances other than those prescribed or required for medical reasons: No Advance Directives: Yes Advance Directives on File: Yes Advance Directives Date on File: 03/13/21 service: No Current occupational status: retired Physical Exam ED Vital Signs: Vital Signs - 24 hr 04/19/22 01:18 04/19/22 03:25 Temperature 98.2 F Pulse Rate 115 H 112 H Respiratory Rate 16 16 Blood Pressure 112/74 131/66 Pulse Oximetry 96 96 Oxygen Delivery Method Room Air Room Air BMI result Body Mass Index 42.0 Const Other: Appearance: Alert. Oriented X3. No acute distress. Eyes: Pupils equal, round and reactive to light. ENT: Pharynx normal. Neck: Normal inspection. Neck supple. No lymph nodes noted. No crepitus CVS: Heart rate irregularly irregular, tachycardic in the 120s, Pulses normal. Normal S1 and S2 Respiratory: No respiratory distress. Breath sounds normal. No Wheezing. No rales Abdomen: Soft and nontender. No rigidity. No distention. Skin: Skin warm and dry. Normal skin color. Normal skin turgor. Extremities: Patient has +1 nonpitting edema, chronic venous stasis, legs look the same as the picture posted on patient's discharge documents Neuro: Oriented X 3. No motor deficit. No sensory deficit. Moving all extremities. No slurred speech. CN 2 through 12 grossly intact Psych: calm, cooperative, normal affect Course Course Course Narrative: Patient has chronic lower extremity edema and pain. Patient does not have active cellulitis at this time. No pain to palpation on the calves. Patient had a Doppler ultrasound of the lower extremities less than a month ago and it was negative for DVT. Patient is anticoagulated on Eliquis. DVT not suspected at this time. Patient's basic labs are pending. Patient receiving 1 dose of IV metoprolol which is 1 of his home medications. Patient AFib with RVR. No chest pain or shortness of breath. Patient's heart rate improved to the low 80s. Patient has no chest pain or shortness of breath, no palpitations. Blood pressure stable. However, patient's sodium is 124 which is new. Patient is not hyperglycemic. Patient being admitted by hospitalist Medications Administered Discontinued Medications Generic Name Dose Route Start Last Admin Trade Name Freq PRN Reason Stop Dose Admin Metoprolol Tartrate 5 mg 04/19/22 02:17 04/19/22 03:36 Metoprolol Tartrate 5 Mg/5 Ml Vial IVPUSH 04/19/22 02:18 5 mg ONCE ONE Administration Oxycodone HCl 5 mg 04/19/22 02:22 04/19/22 03:29 Oxycodone Hcl Immed Release 5 Mg Tablet PO 04/19/22 02:23 5 mg ONCE ONE Administration Medical Decision Making Differential Diagnosis Differential Diagnoses: The differential diagnosis associated with the presentation includes (Bilateral lower extremity edema, CHF, hypernatremia) Admission/Observation Consideration of admission/observation: Escalation of care including admission/observation considered (Patient's sodium is 124, patient has not been this hypernatremic in the past. Likely secondary to increase intake of fluids/beer) Consult Healthcare Provider Management of the patient was discussed with: Hospitalist (Dr Mary Boyd accepted the pt) Lab Data MDM Lab Attestation statement: I reviewed the patient's lab results. 04/19/22 02:24 04/19/22 02:24 Labs: Lab Results 04/19/22 04/19/22 04/19/22 Range/Units 02: 02:24 02:24 WBC 9.9 (4.8-10.8) X10*3/uL RBC 4.13 L (4.60-5.80) X10*6/uL Hgb 10.3 L (14.0-18.0) g/dl Hct 33.3 L (42.0-52.0) % MCV 80.6 (80.0-98.0) fL MCH 24.9 L (27.0-33.0) pg MCHC 30.9 L (31.0-36.0) g/dl RDW 18.4 H (11.0-16.0) % Plt Count 314 D (160-400) X10*3/uL MPV 9.4 (9.4-12.4) fL Immature Gran % (Auto) 0.5 H (0.0-0.4) % Neut % (Auto) 77.6 H (45-73) % Lymph % (Auto) 10.7 L (20-40) % Douglas % (Auto) 10.8 (2-11) % Eos % (Auto) 0.1 (0-4) % Baso % (Auto) 0.3 (0-2) % Lymph # (Auto) 1.1 L (1.2-4.9) X10*3/uL Douglas # (Auto) 1.1 (0.1-1.2) X10*3/uL Eos # (Auto) 0.0 (0.0-0.4) X10*3/uL Baso # (Auto) 0.0 (0.0-0.2) X10*3/uL Abs Immat Gran (auto) 0.05 H (0.00-0.03) X10*3/uL Absolute Neuts (auto) 7.7 (2.0-8.3) x10*3/uL Absolute Nucleated RBC 0.000 (0.0-0.012) X10*3/uL Nucleated RBC % (auto) 0.0 (0.0-0.2) /100WBC Sodium 124 L (135-145) mmol/L Potassium 3.7 (3.3-5.1) mmol/L Chloride 85 L (96-108) mmol/L Carbon Dioxide 26 (22-29) mmol/L Anion Gap 17 (12-20) BUN 55 H (9-16) mg/dL Creatinine 1.28 (0.5-1.4) mg/dL Estim Creat Clear Calc 85.8 Estimated GFR 57 Random Glucose 93 (60-115) mg/dL Calcium 8.5 (8.4-10.2) mg/dL Magnesium 2.5 (1.6-2.6) mg/dL Total Bilirubin 0.6 (0.0-1.0) mg/dL Direct Bilirubin 0.3 (0.0-0.5) mg/dL AST 25 (5-37) U/L ALT 21 (0-40) U/L Alkaline Phosphatase 99 (39-117) U/L Troponin I High Sens (<3.5-35.0) ng/L B-Natriuretic Peptide (<100) pg/mL Total Protein 7.0 (6.5-8.0) g/dL Albumin 3.6 (3.5-5.0) g/dL Urine Color Urine Appearance Urine pH (5.0-9.0) Ur Specific [place] (1.005-1.025) Urine Protein (Neg-Trace) mg/dL Urine Glucose (UA) (Negative) mg/dL Urine Ketones (Negative) mg/dL Urine Blood (Negative) Urine Nitrite (Negative) Ur Leukocyte Esterase (Negative) Urine RBC (0-2) /HPF Urine WBC (0-5) /HPF Ur Squamous Epith Cells (0-2) /HPF Urine Bacteria (None Seen) Hyaline Casts (0-2) /LPF Urine Osmolality (373-1093) mosm/kg Ur Random Sodium mmol/L Urine Opiates Screen (Not Detect) Urine Fentanyl Screen (Not Detect) Ur Barbiturates Screen (Not Detect) Ur Phencyclidine Scrn (Not Detect) Ur Amphetamines Screen (Not Detect) U Benzodiazepines Scrn (Not Detect) Urine Cocaine Screen (Not Detect) U Marijuana (THC) Screen (Not Detect) COVID-19 (NOLAN) Negative (Negative) COVID-19 Clin Com See Note 04/19/22 04/19/22 04/19/22 Range/Units 02:24 02:24 03:56 WBC (4.8-10.8) X10*3/uL RBC (4.60-5.80) X10*6/uL Hgb (14.0-18.0) g/dl Hct (42.0-52.0) % MCV (80.0-98.0) fL MCH (27.0-33.0) pg MCHC (31.0-36.0) g/dl RDW (11.0-16.0) % Plt Count (160-400) X10*3/uL MPV (9.4-12.4) fL Immature Gran % (Auto) (0.0-0.4) % Neut % (Auto) (45-73) % Lymph % (Auto) (20-40) % [place] % (Auto) (2-11) % Eos % (Auto) (0-4) % Baso % (Auto) (0-2) % Lymph # (Auto) (1.2-4.9) X10*3/uL [place] # (Auto) (0.1-1.2) X10*3/uL Eos # (Auto) (0.0-0.4) X10*3/uL Baso # (Auto) (0.0-0.2) X10*3/uL Abs Immat Gran (auto) (0.00-0.03) X10*3/uL Absolute Neuts (auto) (2.0-8.3) x10*3/uL Absolute Nucleated RBC (0.0-0.012) X10*3/uL Nucleated RBC % (auto) (0.0-0.2) /100WBC Sodium (135-145) mmol/L Potassium (3.3-5.1) mmol/L Chloride (96-108) mmol/L Carbon Dioxide (22-29) mmol/L Anion Gap (12-20) BUN (9-16) mg/dL Creatinine (0.5-1.4) mg/dL Estim Creat Clear Calc Estimated GFR Random Glucose (60-115) mg/dL Calcium (8.4-10.2) mg/dL Magnesium (1.6-2.6) mg/dL Total Bilirubin (0.0-1.0) mg/dL Direct Bilirubin (0.0-0.5) mg/dL AST (5-37) U/L ALT (0-40) U/L Alkaline Phosphatase (39-117) U/L Troponin I High Sens 14.4 (<3.5-35.0) ng/L B-Natriuretic Peptide 65 (<100) pg/mL Total Protein (6.5-8.0) g/dL Albumin (3.5-5.0) g/dL Urine Color Urine Appearance Urine pH (5.0-9.0) Ur Specific [place] (1.005-1.025) Urine Protein (Neg-Trace) mg/dL Urine Glucose (UA) (Negative) mg/dL Urine Ketones (Negative) mg/dL Urine Blood (Negative) Urine Nitrite (Negative) Ur Leukocyte Esterase (Negative) Urine RBC (0-2) /HPF Urine WBC (0-5) /HPF Ur Squamous Epith Cells (0-2) /HPF Urine Bacteria (None Seen) Hyaline Casts (0-2) /LPF Urine Osmolality (373-1093) mosm/kg Ur Random Sodium mmol/L Urine Opiates Screen Not Detected (Not Detect) Urine Fentanyl Screen Not Detected (Not Detect) Ur Barbiturates Screen Not Detected (Not Detect) Ur Phencyclidine Scrn Not Detected (Not Detect) Ur Amphetamines Screen Not Detected (Not Detect) U Benzodiazepines Scrn Not Detected (Not Detect) Urine Cocaine Screen Not Detected (Not Detect) U Marijuana (THC) Screen Not Detected (Not Detect) COVID-19 (NOLAN) (Negative) COVID-19 Clin Com 04/19/22 04/19/22 04/19/22 Range/Units 03:56 03:56 03:56 WBC (4.8-10.8) X10*3/uL RBC (4.60-5.80) X10*6/uL Hgb (14.0-18.0) g/dl Hct (42.0-52.0) % MCV (80.0-98.0) fL MCH (27.0-33.0) pg MCHC (31.0-36.0) g/dl RDW (11.0-16.0) % Plt Count (160-400) X10*3/uL MPV (9.4-12.4) fL Immature Gran % (Auto) (0.0-0.4) % Neut % (Auto) (45-73) % Lymph % (Auto) (20-40) % [place] % (Auto) (2-11) % Eos % (Auto) (0-4) % Baso % (Auto) (0-2) % Lymph # (Auto) (1.2-4.9) X10*3/uL [place] # (Auto) (0.1-1.2) X10*3/uL Eos # (Auto) (0.0-0.4) X10*3/uL Baso # (Auto) (0.0-0.2) X10*3/uL Abs Immat Gran (auto) (0.00-0.03) X10*3/uL Absolute Neuts (auto) (2.0-8.3) x10*3/uL Absolute Nucleated RBC (0.0-0.012) X10*3/uL Nucleated RBC % (auto) (0.0-0.2) /100WBC Sodium (135-145) mmol/L Potassium (3.3-5.1) mmol/L Chloride (96-108) mmol/L Carbon Dioxide (22-29) mmol/L Anion Gap (12-20) BUN (9-16) mg/dL Creatinine (0.5-1.4) mg/dL Estim Creat Clear Calc Estimated GFR Random Glucose (60-115) mg/dL Calcium (8.4-10.2) mg/dL Magnesium (1.6-2.6) mg/dL Total Bilirubin (0.0-1.0) mg/dL Direct Bilirubin (0.0-0.5) mg/dL AST (5-37) U/L ALT (0-40) U/L Alkaline Phosphatase (39-117) U/L Troponin I High Sens (<3.5-35.0) ng/L B-Natriuretic Peptide (<100) pg/mL Total Protein (6.5-8.0) g/dL Albumin (3.5-5.0) g/dL Urine Color Straw Urine Appearance Clear Urine pH 6.0 (5.0-9.0) Ur Specific [place] <= 1.005 (1.005-1.025) Urine Protein Negative (Neg-Trace) mg/dL Urine Glucose (UA) Negative (Negative) mg/dL Urine Ketones Negative (Negative) mg/dL Urine Blood Trace (Negative) Urine Nitrite Negative (Negative) Ur Leukocyte Esterase Negative (Negative) Urine RBC 0-2 (0-2) /HPF Urine WBC 0-5 (0-5) /HPF Ur Squamous Epith Cells 0-2 (0-2) /HPF Urine Bacteria None Seen (None Seen) Hyaline Casts 0-2 (0-2) /LPF Urine Osmolality 275 L (373-1093) mosm/kg Ur Random Sodium 47.0 mmol/L Urine Opiates Screen (Not Detect) Urine Fentanyl Screen (Not Detect) Ur Barbiturates Screen (Not Detect) Ur Phencyclidine Scrn (Not Detect) Ur Amphetamines Screen (Not Detect) U Benzodiazepines Scrn (Not Detect) Urine Cocaine Screen (Not Detect) U Marijuana (THC) Screen (Not Detect) COVID-19 (NOLAN) (Negative) COVID-19 Clin Com Radiology Impression Discussion of test interpretation with radiology: I have reviewed the radiologist's reading. Radiologist Impression: TECHNIQUE: Frontal view of the chest was obtained. FINDINGS: Cardiac leads overlie the chest. The lungs are well expanded. No consolidation, edema, or effusion. No pneumothorax. The cardiomediastinal silhouette remains enlarged. XR/XR chest 1V IMPRESSION: No acute pulmonary disease. Enlarged cardiac silhouette. ? Critical Care Time Critical Care Time Critical Care Time: Yes Total Critical Care Time: 60 Attestation: I have personally provided critical care time. Time includes review of lab data, radiology results, discussion with consultants, and monitoring for potential decompensation. Intervention performed as documented. Discharge Plan Discharge Clinical Impression: Lower extremity pain, Atrial fibrillation with RVR, Acute hyponatremia Patient Disposition: Admitted As Inpatient Prescriptions: No Action doxycycline hyclate 100 mg capsule 100 mg PO BID 7 Days Qty: 14 0RF cephalexin 500 mg tablet 500 mg PO QID 7 Days Qty: 28 0RF metoprolol tartrate 100 mg Tablet 100 mg PO BID Qty: 60 0RF Protocol: Hold for SBP/HR < HOLD for SBP < : 90 HOLD for HR < : 60 oxycodone 5 mg Tablet 5 mg PO Q6H PRN (Reason: Pain, Mild (Pain Scale 1-3)) Qty: 5 0RF zolpidem 10 mg Tablet 10 mg PO BEDTIME PRN (Reason: Insomnia) acetaminophen 325 mg Tablet 650 mg PO Q4H PRN (Reason: Fever Or Pain) diltiazem HCl [DILT-XR] 180 mg Capsule,Ext.Rel 24h Degradable 180 mg PO DAILY furosemide 80 mg Tablet 80 mg PO BID PRN (Reason: Edema) gabapentin 300 mg Capsule 300 mg PO TID Rx Instructions: TOTAL DAILY DOSE 500 MG TID gabapentin 100 mg Capsule 200 mg PO TID Rx Instructions: TOTAL DAILY DOSE 500 MG TID spironolactone 50 mg Tablet 50 mg PO BID vilazodone 20 mg Tablet 20 mg PO DAILY Rx Instructions: must administer with a meal/food doxycycline hyclate 100 mg tablet 100 mg PO BID 7 Days Qty: 14 0RF Eliquis 5 mg tablet 5 mg PO BID 90 Days Qty: 180 3RF aripiprazole [Abilify] 5 mg tablet 5 mg PO DAILY 90 Days Qty: 90 1RF atorvastatin 40 mg tablet 40 mg PO BEDTIME 90 Days Qty: 90 3RF venlafaxine [Effexor XR] 150 mg capsule,extended release 24hr 150 mg PO DAILY 90 Days Qty: 90 3RF
[2022-04-19 02:31] LABS: Basophils Percent Auto 0.3 % (0-2); Eosinophils Percent Auto 0.1 % (0-4); Hematocrit 33.3 % (42.0-52.0); Hemoglobin 10.3 g/dl (14.0-18.0); Imm Gran Abs Auto 0.05 X10*3/uL (0.00-0.03); Imm Gran Pct Auto 0.5 % (0.0-0.4); Lymphocytes Absolute Auto 1.1 X10*3/uL (1.2-4.9); Lymphocytes Percent Auto 10.7 % (20-40); MANUAL DIFF FLAG NO; Mean Corpuscular HGB Conc 30.9 g/dl (31.0-36.0); Mean Corpuscular Hemoglobin 24.9 pg (27.0-33.0); Mean Corpuscular Volume 80.6 fL (80.0-98.0); Mean Platelet Volume 9.4 fL (9.4-12.4); Monocytes Absolute Auto 1.1 X10*3/uL (0.1-1.2); Monocytes Percent Auto 10.8 % (2-11); Neutrophils Absolute Auto 7.7 x10*3/uL (2.0-8.3); Neutrophils Percent Auto 77.6 % (45-73); Platelet Count 314 X10*3/uL (160-400); Red Blood Count 4.13 X10*6/uL (4.60-5.80); Red Cell Distribution Width 18.4 % (11.0-16.0); White Blood Count 9.9 X10*3/uL (4.8-10.8)
[2022-04-19 02:44] LABS: COVID-19 Test Negative (Negative); IDNOW Serial# BCCEAD1C
[2022-04-19 02:51] LABS: Alanine Aminotransferase 21 U/L (0-40); Albumin Level 3.6 g/dL (3.5-5.0); Alkaline Phosphatase 99 U/L (39-117); Anion Gap 17 (12-20); Aspartate Amino Transferase 25 U/L (5-37); Bilirubin Direct 0.3 mg/dL (0.0-0.5); Bilirubin Total 0.6 mg/dL (0.0-1.0); Blood Urea Nitrogen 55 mg/dL (9-16); Calcium 8.5 mg/dL (8.4-10.2); Carbon Dioxide 26 mmol/L (22-29); Chloride 85 mmol/L (96-108); Creatinine Clr Calc Pharmacy 85.8; Estimated Glomerular Filt Rate 57; Glucose Random 93 mg/dL (60-115); Magnesium 2.5 mg/dL (1.6-2.6); Potassium 3.7 mmol/L (3.3-5.1); Sodium 124 mmol/L (135-145)
[2022-04-19 02:54] LABS: B Type Natriuretic Peptide 65 pg/mL (<100); Troponin-I High Sensitivity 14.4 ng/L (<3.5-35.0)
[2022-04-19] MEDS: oxyCODONE HCl Immed Release 5 MG TABLET PO ×4 (03:29→21:09)
[2022-04-19] MEDS: Metoprolol Tartrate 5 MG/5 ML VIAL IVPUSH (03:36)
--- NOTE | 2022-04-19 03:40 | PC.NURSE ---
Pt aox3. Sinus tach on monitor with HR 130's. Pt medicated as ordered. aware.
[2022-04-19 04:12] LABS: Amphetamine Screen Urine Not Detected (Not Detect); Barbiturates, Urine Not Detected (Not Detect); Benzodiazepines Screen Urine Not Detected (Not Detect); Cannabinoid Screen Urine Not Detected (Not Detect); Cocaine Screen Urine Not Detected (Not Detect); Fentanyl, urine Not Detected (Not Detect); Opiate Screen Urine Not Detected (Not Detect); Phencyclidine Screen Urine Not Detected (Not Detect)
[2022-04-19 04:19] LABS: Appearance Urine Clear; Color Urine Straw; Glucose Urine UA Negative (Negative); Leukocyte Esterase Urine Negative (Negative); Nitrite Urine Negative (Negative); Specific Gravity - Urine <= 1.005 (1.005-1.025); UMIC TRIGGER UACC YES; Urine Blood Trace (Negative); Urine Ketones Negative (Negative); Urine Protein Negative (Neg-Trace)
[2022-04-19 04:24] LABS: Bacteria Urine None Seen (None Seen); Hyaline Casts Urine 0-2 /LPF (0-2); RBC Urine 0-2 /HPF (0-2); Squamous Epithelial Cell Urine 0-2 /HPF (0-2); WBC Urine 0-5 /HPF (0-5)
[2022-04-19 04:45] LABS: Osmolality Urine 275 mosm/kg (373-1093)
--- NOTE | 2022-04-19 06:24 | P.HPHOSP_ITS ---
History of Present Illness Date of Service: 04/19/22 Chief Complaint: not taken meds this is a 61 yo M with with pmhx of A fib on Eliquis, history of heart failure with preserved ejection fraction, history of alcohol abuse, history of pulmonary embolism, among others who presents to the hospital stating that he went to visit his mother today and forgot to take his meds specifically his oxycodone and he started having shakes. patient is also stating that he has lower extremity edema that is chronic, denies any chest pain, no shortness of breath, no abdominal pain nausea or vomiting, no diarrhea constipation, no urinary symptoms . Patient reports no increase water intake and but he does drink beer daily, last drink was last night, he does have history of withdrawals but currently denies withdrawing. On arrival to the ED patient found to have temp of 98.2 degrees, heart rate of 115 otherwise no acute findings, heart rate is in AFib with RVR, patient received IV metoprolol with improvement in his heart rate. Labs significant for WBC count of 9.9, hemoglobin of 10.3, hematocrit 33.3, sodium of 124 previously normal Chest x-ray shows no acute pulmonary disease patient will be admitted for further management Review of Systems Review of Systems: Yes all other systems are reviewed and are negative [facility] Medical History ARIAN (acute kidney injury) Alcohol dependence Alcohol intoxication Alcohol withdrawal Alcohol withdrawal delirium Anemia Atrial fibrillation with RVR Atrial fibrillation with RVR Atrial fibrillation with RVR Chest pain Chronic atrial fibrillation Depression Dyslipidemia Heart failure with left ventricular ejection fraction greater than or equal to 50 percent History of alcohol abuse Incarcerated incisional hernia Insomnia Metabolic acidosis with increased anion gap and accumulation of organic acids Morbid obesity Obesity Oral thrush Pulmonary embolism Sciatica Thoracic aortic aneurysm Toenail deformity Family History Mother No problems noted. Father No problems noted. Family/Other Substance use disorder Surgical History History of incisional hernia repair History of inguinal hernia repair Hx of gastric bypass S/P cholecystectomy Social History Household Members: Other Household Members Other:: lives with mother Housing: Detention Do you presently have visiting nurse or other home services: No Unable to assess alcohol history related to: Unable to respond Alcohol intake: current Alcohol intake frequency: a few times a week Alcohol type: beer Patient Tobacco Use Status: Never used Tobacco Smoked in Last 30 Days: No e-Cigarette/Vaping Use: Never Used Second Hand Smoke Exposure: No Use of substances other than those prescribed or required for medical reasons: No Advance Directives: Yes Advance Directives on File: Yes Advance Directives Date on File: 03/13/21 service: No Current occupational status: retired Meds Allergies Allergy/AdvReac Type Severity Reaction Status Date / Time No Known Allergies Allergy Verified 12/15/20 05:52 Active Medications: Current Medications Sodium Chloride (Ns) 1,000 mls @ 80 mls/hr IVCONT .[id number] [facility] Home Medications Medication Instructions Recorded Confirmed Last Taken Type zolpidem 10 mg tablet 10 mg PO BEDTIME PRN Insomnia 01/20/22 03/03/22 Unknown History acetaminophen 325 mg tablet 650 mg PO Q4H PRN Fever Or Pain 03/03/22 03/03/22 Unknown History diltiazem HCl 180 mg 180 mg PO DAILY 03/03/22 03/03/22 03/02/22 History capsule,extended release 24 hr, controlled (DILT-XR) furosemide 80 mg tablet 80 mg PO BID PRN Edema 03/03/22 03/03/22 Unknown History gabapentin 100 mg capsule 200 mg PO TID 03/03/22 03/03/22 03/02/22 History gabapentin 300 mg capsule 300 mg PO TID 03/03/22 03/03/22 03/02/22 History spironolactone 50 mg tablet 50 mg PO BID 03/03/22 03/03/22 03/02/22 History vilazodone 20 mg tablet 20 mg PO DAILY DEPRESSION 03/03/22 03/03/22 03/02/22 History Physical Exam Vital Signs and Narrative: Vital Signs: Last Vital Signs Temp 98.2 F 04/19/22 01:18 Pulse 108 H 04/19/22 06:14 Resp 18 04/19/22 06:14 BP 136/71 04/19/22 06:14 Pulse Ox 95 04/19/22 06:14 O2 Del Method 04/19/22 06:14 BMI result Body Mass Index 42.0 Const: Other: slightly somnolent but arousable, it appears the patient received oxycodone and is very sleepy according to him General: cooperative and no acute distress Orientation/consciousness: patient oriented x3 Eyes: General: appearance normal, both eyes and all related structures Resp: Effort & Inspection: normal respiratory effort Auscultation: clear to auscultation bilaterally Cardio: Rate: regular rate Rhythm: regular rhythm GI: Palpation (GI): Soft to palpation Auscultation: normal bowel sounds Skin: Other: skin changes of chronic lymphedema General skin exam: no rashes or lesions noted Neuro: General: patient oriented x3 Cognition (Neuro): normal cognition Extrem: Other: 2+ pitting edema bilaterally Results Labs 04/19/22 02:24 04/19/22 02:24 Labs: Laboratory Results - last 24 hr 04/19/22 04/19/22 04/19/22 02:23 02:24 02:24 MCV 80.6 MCH 24.9 L MCHC 30.9 L RDW 18.4 H Plt Count 314 D MPV 9.4 Immature Gran % (Auto) 0.5 H Neut % (Auto) 77.6 H Lymph % (Auto) 10.7 L [place] % (Auto) 10.8 Eos % (Auto) 0.1 Baso % (Auto) 0.3 Lymph # (Auto) 1.1 L [place] # (Auto) 1.1 Eos # (Auto) 0.0 Baso # (Auto) 0.0 Abs Immat Gran (auto) 0.05 H Absolute Neuts (auto) 7.7 Absolute Nucleated RBC 0.000 Nucleated RBC % (auto) 0.0 Anion Gap 17 Estim Creat Clear Calc 85.8 Estimated GFR 57 Random Glucose 93 Calcium 8.5 Magnesium 2.5 Total Bilirubin 0.6 Direct Bilirubin 0.3 AST 25 ALT 21 Alkaline Phosphatase 99 Troponin I High Sens B-Natriuretic Peptide Total Protein 7.0 Albumin 3.6 Urine Color Urine Appearance Urine pH Ur Specific [place] Urine Protein Urine Glucose (UA) Urine Ketones Urine Blood Urine Nitrite Ur Leukocyte Esterase Urine RBC Urine WBC Ur Squamous Epith Cells Urine Bacteria Hyaline Casts Urine Osmolality Ur Random Sodium Urine Opiates Screen Urine Fentanyl Screen Ur Barbiturates Screen Ur Phencyclidine Scrn Ur Amphetamines Screen U Benzodiazepines Scrn Urine Cocaine Screen U Marijuana (THC) Screen COVID-19 (NOLAN) Negative COVID-19 Clin Com See Note 04/19/22 04/19/22 04/19/22 02:24 02:24 03:56 MCV MCH MCHC RDW Plt Count MPV Immature Gran % (Auto) Neut % (Auto) Lymph % (Auto) [place] % (Auto) Eos % (Auto) Baso % (Auto) Lymph # (Auto) [place] # (Auto) Eos # (Auto) Baso # (Auto) Abs Immat Gran (auto) Absolute Neuts (auto) Absolute Nucleated RBC Nucleated RBC % (auto) Anion Gap Estim Creat Clear Calc Estimated GFR Random Glucose Calcium Magnesium Total Bilirubin Direct Bilirubin AST ALT Alkaline Phosphatase Troponin I High Sens 14.4 B-Natriuretic Peptide 65 Total Protein Albumin Urine Color Urine Appearance Urine pH Ur Specific [place] Urine Protein Urine Glucose (UA) Urine Ketones Urine Blood Urine Nitrite Ur Leukocyte Esterase Urine RBC Urine WBC Ur Squamous Epith Cells Urine Bacteria Hyaline Casts Urine Osmolality Ur Random Sodium Urine Opiates Screen Not Detected Urine Fentanyl Screen Not Detected Ur Barbiturates Screen Not Detected Ur Phencyclidine Scrn Not Detected Ur Amphetamines Screen Not Detected U Benzodiazepines Scrn Not Detected Urine Cocaine Screen Not Detected U Marijuana (THC) Screen Not Detected COVID-19 (NOLAN) COVID-19 Clin Com 04/19/22 04/19/22 04/19/22 03:56 03:56 03:56 MCV MCH MCHC RDW Plt Count MPV Immature Gran % (Auto) Neut % (Auto) Lymph % (Auto) [place] % (Auto) Eos % (Auto) Baso % (Auto) Lymph # (Auto) [place] # (Auto) Eos # (Auto) Baso # (Auto) Abs Immat Gran (auto) Absolute Neuts (auto) Absolute Nucleated RBC Nucleated RBC % (auto) Anion Gap Estim Creat Clear Calc Estimated GFR Random Glucose Calcium Magnesium Total Bilirubin Direct Bilirubin AST ALT Alkaline Phosphatase Troponin I High Sens B-Natriuretic Peptide Total Protein Albumin Urine Color Straw Urine Appearance Clear Urine pH 6.0 Ur Specific [place] <= 1.005 Urine Protein Negative Urine Glucose (UA) Negative Urine Ketones Negative Urine Blood Trace Urine Nitrite Negative Ur Leukocyte Esterase Negative Urine RBC 0-2 Urine WBC 0-5 Ur Squamous Epith Cells 0-2 Urine Bacteria None Seen Hyaline Casts 0-2 Urine Osmolality 275 L Ur Random Sodium 47.0 Urine Opiates Screen Urine Fentanyl Screen Ur Barbiturates Screen Ur Phencyclidine Scrn Ur Amphetamines Screen U Benzodiazepines Scrn Urine Cocaine Screen U Marijuana (THC) Screen COVID-19 (NOLAN) COVID-19 Clin Com Imaging Radiologist's Impressions: Impressions Chest X-Ray 04/19/22 03:30 IMPRESSION: No acute pulmonary disease. Enlarged cardiac silhouette. Assessment and Plan (1) Acute hyponatremia: Status: Acute (2) Atrial fibrillation with RVR: Status: Acute (3) Opioid withdrawal: Status: Acute (4) Alcohol abuse with withdrawal: Status: Acute Plan 61-year-old male with past medical history of AFib, CHF, alcohol abuse presents to the hospital with complaints of missing his opioid meds and feeling Withdrawal symptoms. # Acute hyponatremia - possibly secondary to beer proteinemia given the fact that he drinks 6-10 beers daily - pending plasma osmolality, urine osmolality less than 300 - urine sodium, creatinine pending - at this time will treat with fluid restriction - nephrology consulted - follow BMP # AFib with RVR - likely secondary to withdrawal - treated with metoprolol - will resume his home medications - continue Eliquis # alcohol abuse with withdrawal - at this time patient received oxycodone, symptoms do not seem to be secondary to alcohol withdrawal but has history of alcohol withdrawal therefore will place him on CIWA with low threshold to start phenobarb protocol - monitor for withdrawal symptoms # opioid withdrawal - resume oxycodone # hyperlipidemia - continue statin # CHF with preserved ejection fraction - not in exacerbation - continue Lasix DVT prophylaxis: Eliquis given patient's hyponatremia patient will require minimum 2 nights inpatient hospital stay for further management and monitoring Time Spent With Patient Time: Total time managing care of this patient today ____ minutes. Quality Stroke Does the patient have a stroke diagnosis?: No VTE Prior VTE?: No VTE Risk Level:: Medical - moderate - high VTE Device Contraindication: Treatment Not Indicated VTE Drug Contraindication: N/A - Med Ordered
[2022-04-19] MEDS: 0.9 % Sodium Chloride 1,000 ML 80 ML IVCONT (06:32)
[2022-04-19 06:46] LABS: Anion Gap 14 (12-20); Blood Urea Nitrogen 49 mg/dL (9-16); Calcium 8.6 mg/dL (8.4-10.2); Carbon Dioxide 30 mmol/L (22-29); Chloride 86 mmol/L (96-108); Creatinine Clr Calc Pharmacy 86.5; Estimated Glomerular Filt Rate 57; Glucose Random 94 mg/dL (60-115); Potassium 3.3 mmol/L (3.3-5.1); Sodium 127 mmol/L (135-145)
[2022-04-19 06:49] LABS: Osmolality, Serum 290 mosm/kg (281-305)
--- NOTE | 2022-04-19 07:09 | ECG_ITS ---
Test Reason : abd pain Blood Pressure : / mmHG Vent. Rate : 108 BPM Atrial Rate : 000 BPM P-R Int : 000 ms QRS Dur : 150 ms QT Int : 402 ms P-R-T Axes : 000 -17 -07 degrees QTc Int : 538 ms Atrial fibrillation with rapid ventricular response with premature ventricular or aberrantly conducted complexes Right bundle branch block Abnormal ECG When compared with ECG of 19-APR-2022 02:26, No significant change was found Referred By: Kristen Choi Electronically Signed By:Jose Elias Bishop
--- NOTE | 2022-04-19 07:45 | PC.NURSE ---
Patient sleeping easily aroused no distress noted denies chest pain or SOB continues on IVF with no ill effect. No facial droop or deviation of tongue no slurring of words. Scaly red skin to BLE noted will CTM
--- NOTE | 2022-04-19 08:40 | PC.NURSE ---
Patient ambulatory to bathroom independently will CTM
[2022-04-19] MEDS: Folic Acid 1 MG TABLET PO (08:57)
[2022-04-19] MEDS: Thiamine HCL 100 MG TABLET PO (08:57)
[2022-04-19] MEDS: Acetaminophen 325 MG TABLET 650 MG PO (08:57)
[2022-04-19 10:43] LABS: Anion Gap 12 (12-20); Blood Urea Nitrogen 45 mg/dL (9-16); Calcium 8.9 mg/dL (8.4-10.2); Carbon Dioxide 33 mmol/L (22-29); Chloride 87 mmol/L (96-108); Creatinine Clr Calc Pharmacy 83.9; Estimated Glomerular Filt Rate 55; Glucose Random 105 mg/dL (60-115); Potassium 3.8 mmol/L (3.3-5.1); Sodium 128 mmol/L (135-145)
--- NOTE | 2022-04-19 10:57 | HE.PHANOTE ---
Spoke to Dr Perez regarding phenobarbital consult, he would only like the maintenance doses not the loading doses.
--- NOTE | 2022-04-19 11:25 | PHA.MEDREC ---
Pharmacy Consult ? Medication Reconciliation Pharmacy has completed the medication reconciliation. After multiple attempts finally got list faxed from [facility]
--- NOTE | 2022-04-19 11:34 | MHC.RECOVRN ---
This gag writer met w/ patient after addiction consult placed. Patient resting in bed under sheets, alert to verbal stimuli. 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 Patient reports has been to detox in the past. Patient request to end conversation, patient reporting in a lot of pain in legs. Patient denied to answer further questions about leg pain and alcohol use. No withdrawal symptoms visibly present.
--- NOTE | 2022-04-19 11:42 | PC.NURSE ---
.pt stood at bedside to use the urinal, recommender per this RN not to ambulate to the BR given pts a.fib RVR. pt standing at bedside and HR 175. I notified MD Perez. order for Diltiazem 5mg IV Push and Dilt gtt. pt sitting back in bed at this time,. HR had a steady decline once pt sitting back to one-teens. pt at rest now, HR low 100s, per dr perez, hold diltiazem gtt and IV Push medication at this time, pt encouraged to stay in bed and use urinal. awaiting continuation of pts home medications at this time.
[2022-04-19 11:52] LABS: Creatinine Urine 24.12 mg/dL
[2022-04-19] MEDS: dilTIAZem HCL CD 180 MG CAP.ER.24H PO (12:04)
[2022-04-19] MEDS: PHENobarbitaL 30 MG TABLET 60 MG PO ×2 (12:04→20:51)
--- NOTE | 2022-04-19 12:09 | PC.NURSE ---
pt standing at bedside, redirected again to use urinal at bedside. pt refusing to listen, pulled of his cardiac leads, last HR 175bpm. pt ambulated to the bathroom independently, Dr Perez made aware for ? new orders. no new orders at this time. pt returned to bad, allowed for HR to slow down. 120s at thsi time.
--- NOTE | 2022-04-19 13:00 | CA_ITS ---
Transthoracic Echocardiogram Patient (Last, First, Middle): Bennie Potts X Gender: Male Date of : 1960 Age: 61 Procedure Date: 04/19/2022 Procedure Type: Transthoracic Echocardiogram Location: ER Height: 182. cm Weight: 140.62 kg BSA: 2.56 m2 Heart Rate: bpm BP: 114 / 77 mmHg Respiratory Care Technician: ROCÍO Referring MD: Josemanuel Perez MD Symptoms: AFIB Study Quality: Technically Difficult, contrast used Conclusions: - Normal left ventricular size and systolic function. There is mildly increased left ventricular wall thickness. The visually estimated ejection fraction is between 55-60%. - There is mildly decreased right ventricular systolic function. Poorly visualized, size appears to be normal. Findings Procedure Information Contrast agent, definity, is being given per protocol without apparent complications. Left Ventricle Normal left ventricular size and systolic function. There is mildly increased left ventricular wall thickness. The visually estimated ejection fraction is between 55-60%. Regional wall motion abnormalities can not be excluded due to suboptimal endocardial definition. Diastolic function is indeterminate on the basis of available data. Right Ventricle There is mildly decreased right ventricular systolic function. Poorly visualized, size appears to be normal. Atria The left atrium is mildly dilated. Aortic Valve The aortic valve was not well visualized. There is no aortic valve stenosis. There is no aortic valve regurgitation. Mitral Valve The mitral valve was not well visualized. There is no mitral valve regurgitation. There is no mitral valve stenosis. Pulmonic Valve The pulmonic valve was not well visualized. Tricuspid Valve Likely normal tricuspid valve structure and function. Tricuspid regurgitation envelope is inadequate for calculation of right ventricular systolic pressure. Normal right atrial pressure. Great Vessels All visible segments of the aorta are normal in size. Venous The inferior vena cava is normal in size and collapses greater than 50% with inspiration. Pericardium/Pleural There is no evidence of pericardial effusion. Measurements 2D Linear Measurements IVSd: 0.93 0.6-0.9/0.6-1.0 cm LVIDd: 4.90 3.9-5.3/4.2-5.9 cm LVIDd Index: 1.91 2.4-3.2/2.2-3.1 cm/m2 LVIDs: 3.42 2.0-3.6 cm LVPWd: 0.98 0.7-1.1 cm LA Diam: 4.80 2.7-3.8/3.0-4.0 cm LAIDs Index: 1.88 1.5-2.3 cm/m2 LV Mass: 206.24 67-162/88-224 g LV Mass Index: 80.56 43-95/49-115 g/m2 LVOT Diam: 2.30 3.0+(-)1.3 cm 2D Systolic Function EF 4C: 67.80 >55% EF 2C: 65.20 >55% EF BiP: 65.80 >55% Mitral Valve E'Lateral: 16.30 E'Medial: 7.94 Aortic Valve AoV Pk Marvin: 1.22 AoV Mn Marvin: 0.89 AoV VTI: 0.21 AoV Pk Grad: 6.00 Aov Mn Grad: 4.00 NILS Cont.VTI: 2.92 LVOT LVOT Pk Marvin: 0.90 LVOT Mn Marvin: 0.64 LVOT VTI: 0.15 LVOT Pk Grad: 3.00 LVOT Mn Grad: 2.00 LVOT Diam: 2.30 LVOT Area: 4.15 Diastolic Function E'Medial: 7.94 E' Laterial: 16.30 Right Ventricle TAPSE (mm): 20.70 TVS' Marvin: 8.27 Tricuspid Valve RA Press: 3.00 Great Vessels Aorta Sinus of Valsalva: 3.90 2.0-3.5 cm Ao Asc: 3.40 2.1-3.4 cm Updated in Other Vendor System with Status of Final Jose Elias Bishop MD electronically signed on 04/19/2022 4:52:40 PM with status of Final
[2022-04-19] MEDS: Metoprolol Tartrate 50 MG TABLET PO (13:09)
--- NOTE | 2022-04-19 14:58 | MHC.CM.PN ---
Met with patient in regards to discharge planning. Patient is a intermediate care resident of [facility]. Patient went out to visit his mother on a day pass and didn't return to the facility. Patient had to come to the ER due to leg pain and was admitted. Patient hoping to return to [facility] via chair van when medically stable. Referral made via [facility]. PCP verified. Copy of HCP verified to be on file. Patient received 2 Moderna vaccines and 3 Pfizer vaccines. IMM explained and signed. Continue to monitor for d/c needs.
--- NOTE | 2022-04-19 15:59 | PM.EVENT ---
Event Note Date of Service: 04/19/22 Event Note: This patient is seen and examined . Patient was admitted for hyponatremia, AFib with RVR, alcohol withdrawal. Lab reviewed Sodium improving Heart rate was in 130s with exertion unfortunately medical reconciliation was not done-given IV metoprolol and started home medications heart rate is improving 100s now. Also ciwa around 2-3 but seems somewhat anxious. Physical exam : unchanged from h&p. assessment and plan coordinated in APCs note, Agree with the plan in addition: hyponatremia : serum andurine labs noted d/w nephro: placed on fluid restrictions moniter for hyponatremia afib: rvr : likely due to missed meds and alcohol withdrawal given iv metoprolol , started on home meds , moniter on tele echo added alcohol withdrawal added po phenobarbital taper moniter ciwa,thiamine,folic acid morbid obesity-encouraged to lose weight. Time Spent With Patient Time: Total time managing care of this patient today ____ minutes.
[2022-04-19] MEDS: Gabapentin 400 MG CAPSULE PO ×2 (16:21→20:51)
[2022-04-19] MEDS: 0.9 % Sodium Chloride Flush 3 ML SYRINGE IVFLUSH (16:21)
[2022-04-19 17:16] LABS: Sodium 130 mmol/L (135-145)
--- NOTE | 2022-04-19 19:01 | P.CONNP_ITS ---
History of Present Illness Reason for Consult Consult date: 04/19/22 Chief Complaint Chief complaint: Hyponatremia History of Present Illness Narrative: 61 yo M with history of alcohol abuse presented to hospital with alcohol withdrawl..? patient is also stating that he has lower extremity edema that is chronic. He denies any chest pain, no shortness of breath, no abdominal pain nausea or vomiting, no diarrhea constipation, no urinary symptoms .? Patient reports no increase? water intake and? but he does drink? beer daily, last drink was last night. His sodium at presentation was 124 which was previously normal. He was admitted for further management. Nephrology has been consulted to assist in his clinical care Review of Systems Review of Systems Yes all other systems are reviewed and are negative [facility] Past Medical History Medical History ARIAN (acute kidney injury) Alcohol dependence Alcohol intoxication Alcohol withdrawal Alcohol withdrawal delirium Anemia Atrial fibrillation with RVR Atrial fibrillation with RVR Atrial fibrillation with RVR Chest pain Chronic atrial fibrillation Depression Dyslipidemia Heart failure with left ventricular ejection fraction greater than or equal to 50 percent History of alcohol abuse Incarcerated incisional hernia Insomnia Metabolic acidosis with increased anion gap and accumulation of organic acids Morbid obesity Obesity Oral thrush Pulmonary embolism Sciatica Thoracic aortic aneurysm Toenail deformity Family History Family History Mother No problems noted. Father No problems noted. Family/Other Substance use disorder Surgical History Surgical History History of incisional hernia repair History of inguinal hernia repair Hx of gastric bypass S/P cholecystectomy Social History Social History Household Members: Other Household Members Other:: lives with mother Housing: Retirement Do you presently have visiting nurse or other home services: No Unable to assess alcohol history related to: Unable to respond Alcohol intake: current Alcohol intake frequency: a few times a week Alcohol type: beer Patient Tobacco Use Status: Never used Tobacco Smoked in Last 30 Days: No e-Cigarette/Vaping Use: Never Used Second Hand Smoke Exposure: No Use of substances other than those prescribed or required for medical reasons: No Advance Directives: Yes Advance Directives on File: Yes Advance Directives Date on File: 03/13/21 service: No Current occupational status: retired Meds Allergies Allergy/AdvReac Type Severity Reaction Status Date / Time No Known Allergies Allergy Verified 12/15/20 05:52 Active Medications: Current Medications Acetaminophen (Acetaminophen 325 Mg Tablet) 650 mg PO Q6H PRN PRN Reason: Pain, Mild (Pain Scale 1-3) Last Admin: 04/19/22 08:57 Dose: 650 mg Acetaminophen (Acetaminophen 325 Mg Tablet) 650 mg PO Q4H PRN PRN Reason: Fever Or Pain Apixaban (Apixaban 5 Mg Tablet) 5 mg PO BID [facility] Aripiprazole (Aripiprazole 5 Mg Tablet) 5 mg PO DAILY [facility] Atorvastatin Calcium (Atorvastatin Calcium 40 Mg Tablet) 40 mg PO BEDTIME [facility] Bisacodyl (Bisacodyl 10 Mg Supp.Rect) 10 mg [place] DAILY PRN PRN Reason: Constipation Diltiazem HCl (Diltiazem Hcl Cd 180 Mg Cap.Er.24h) 180 mg PO DAILY [facility]; Protocol Docusate Sodium (Docusate Sodium 100 Mg Capsule) 100 mg PO DAILY PRN PRN Reason: Constipation Folic Acid (Folic Acid 1 Mg Tablet) 1 mg PO DAILY [facility] Last Admin: 04/19/22 08:57 Dose: 1 mg Furosemide (Furosemide 40 Mg Tablet) 80 mg PO BID PRN; Protocol PRN Reason: Edema Gabapentin (Gabapentin 400 Mg Capsule) 400 mg PO TID [facility] Last Admin: 04/19/22 16:21 Dose: 400 mg Guaifenesin (Guaifenesin 100 Mg/5 Ml Liquid) 10 ml PO Q4H PRN PRN Reason: Cough Lactic Acid (Ammonium Lactate 12 % Cream 140 Gm Tube) 1 appl TOPICAL DAILY [facility]; Protocol Metolazone (Metolazone 2.5 Mg Tablet) 2.5 mg PO DAILY [facility] Metoprolol Tartrate (Metoprolol Tartrate 100 Mg Tablet) 100 mg PO BID [facility]; Protocol Naloxone HCl (Naloxone Hcl Nasal 4 Mg [place]) 4 mg NOSTRILALT Q24H PRN PRN Reason: opioid depression Ondansetron HCl (Ondansetron Hcl 4 Mg/2 Ml Vial) 4 mg IVPUSH Q8H PRN PRN Reason: Nausea and Vomiting Oxycodone HCl (Oxycodone Hcl Immed Release 5 Mg Tablet) 5 mg PO Q4H PRN PRN Reason: Pain, Mild (Pain Scale 1-3) Last Admin: 04/19/22 16:21 Dose: 5 mg Pharmacy Consult (Consult Rx Perform Med Rec) 1 each MISCELLANE ONCE PRN PRN Reason: Consult order Pharmacy Consult (Consult Rx Etoh Phenob Po Only) 1 each MISCELLANE ONCE PRN; Protocol PRN Reason: Consult order Phenobarbital (Phenobarbital 30 Mg Tablet) 60 mg PO BID [facility] Stop: 04/20/22 21:01 Last Admin: 04/19/22 12:04 Dose: 60 mg Phenobarbital (Phenobarbital 30 Mg Tablet) 30 mg PO BID [facility] Stop: 04/22/22 21:01 Phenobarbital (Phenobarbital 30 Mg Tablet) 30 mg PO DAILY [facility] Stop: 04/24/22 09:01 Sodium Chloride (0.9 % Sodium Chloride Flush 3 Ml Syringe) [facility] Last Admin: 04/19/22 16:21 Dose: 3 ml Spironolactone (Spironolactone 25 Mg Tablet) 100 mg PO BID [facility]; Protocol Thiamine HCl (Thiamine Hcl 100 Mg Tablet) 100 mg PO DAILY [facility] Last Admin: 04/19/22 08:57 Dose: 100 mg Venlafaxine HCl (Venlafaxine Hcl Er 150 Mg Cap.Er.24h) 150 mg PO DAILY [facility] Vilazodone HCl (Vilazodone Hcl 20 Mg Tablet) 20 mg PO DAILY [facility] Zolpidem Tartrate (Zolpidem Tartrate 5 Mg Tablet) 5 mg PO BEDTIME PRN PRN Reason: Insomnia Home Medications Medication Instructions Recorded Confirmed Last Taken Type zolpidem 10 mg tablet 10 mg PO BEDTIME PRN Insomnia 01/20/22 04/19/22 Unknown History acetaminophen 325 mg tablet 650 mg PO Q4H PRN Fever Or Pain 03/03/22 04/19/22 Unknown History diltiazem HCl 180 mg 180 mg PO DAILY 03/03/22 04/19/22 03/02/22 History capsule,extended release 24 hr, controlled (DILT-XR) furosemide 80 mg tablet 80 mg PO BID PRN Edema 03/03/22 04/19/22 Unknown History spironolactone 50 mg tablet 100 mg PO BID 03/03/22 04/19/22 03/02/22 History vilazodone 20 mg tablet 20 mg PO DAILY DEPRESSION 03/03/22 04/19/22 03/02/22 History ammonium lactate 12 % topical cream 1 appl topical DAILY 04/19/22 04/19/22 Unknown History bisacodyl 10 mg rectal suppository 10 mg TN DAILY PRN Constipation 04/19/22 04/19/22 Unknown History gabapentin 400 mg capsule 400 mg PO TID 04/19/22 04/19/22 Unknown History guaifenesin 100 mg/5 mL oral liquid 200 mg PO Q4H PRN Cough 04/19/22 04/19/22 Unknown History metolazone 2.5 mg tablet 2.5 mg PO DAILY 04/19/22 04/19/22 Unknown History naloxone 4 mg/actuation nasal 4 mg intranasal Q24H PRN opioid 04/19/22 04/19/22 Unknown History spray (Narcan) depression oxycodone 5 mg tablet 5 mg PO Q4H PRN Pain, Mild (Pain 04/19/22 04/19/22 Unknown History Scale 1-3) Physical Exam Vital Signs: Last Vital Signs Temp 97.3 F 04/19/22 18:20 Pulse 92 04/19/22 18:20 Resp 14 04/19/22 18:20 BP 129/73 04/19/22 18:20 Pulse Ox 98 04/19/22 18:20 O2 Del Method 04/19/22 18:20 BMI result Body Mass Index 42.0 Const General: no acute distress Eyes EOM: EOMs intact bilaterally Neck Neck: Yes supple Resp Auscultation: diminished lung sounds Cardio Rate: regular rate Neuro General: moves all extremities Results Lab Results 04/19/22 02:24 04/19/22 16:41 Lab results: Chemistry 04/19/22 04/19/22 04/19/22 02:24 06:19 10:09 Sodium 124 L 127 L 128 L Potassium 3.7 3.3 3.8 Carbon Dioxide 26 30 H 33 H BUN 55 H 49 H 45 H Creatinine 1.28 1.27 1.31 Calcium 8.5 8.6 8.9 04/19/22 16:41 Sodium 130 L Potassium Carbon Dioxide BUN Creatinine Calcium Hematology 04/19/22 02:24 WBC 9.9 Hgb 10.3 L Plt Count 314 D Urinalysis 04/19/22 03:56 Urine Color Straw Urine Appearance Clear Urine pH 6.0 Ur Specific [place] <= 1.005 Urine Protein Negative Urine Glucose (UA) Negative Urine Ketones Negative Urine Blood Trace Urine Nitrite Negative Ur Leukocyte Esterase Negative Urine RBC 0-2 Urine WBC 0-5 Ur Squamous Epith Cells 0-2 Hyaline Casts 0-2 Urine Studies 04/19/22 04/19/22 03:56 11:24 Urine Osmolality 275 L Urine Creatinine 24.12 Assessment and Plan (1) Hyponatremia: Status: Acute Plan Hyponatremia Low sodium multifactorial Urine studies reviewed Sodium correcting appropriately Shall fluid restrict for now Shall closely follow up Time Spent With Patient Time: Total time managing care of this patient today ____ minutes. Procedures Date of Service Date of Service: 04/19/22
--- NOTE | 2022-04-19 19:19 | PC.NURSE ---
Pt sleeping VSS.
[2022-04-19] MEDS: Metoprolol Tartrate 100 MG TABLET PO (20:51)
[2022-04-19] MEDS: Apixaban 5 MG TABLET PO (20:51)
[2022-04-19] MEDS: Atorvastatin Calcium 40 MG TABLET PO (20:51)
[2022-04-19] MEDS: Spironolactone 25 MG TABLET 100 MG PO (20:51)
--- NOTE | 2022-04-19 21:18 | PC.NURSE ---
Pt resting quietly, pt ambulated to restroom. Pt has steady gait.
[2022-04-19] MEDS: Zolpidem Tartrate 5 MG TABLET PO (22:01)
[2022-04-19 22:23] LABS: Anion Gap 15 (12-20); Blood Urea Nitrogen 40 mg/dL (9-16); Calcium 8.9 mg/dL (8.4-10.2); Carbon Dioxide 28 mmol/L (22-29); Chloride 94 mmol/L (96-108); Estimated Glomerular Filt Rate 41; Glucose Random 76 mg/dL (60-115); Potassium 4.4 mmol/L (3.3-5.1); Sodium 133 mmol/L (135-145)
[2022-04-20 01:04] VITALS: BP 106/56; PULSE 89; RESP 14; O2SAT 98
--- NOTE | 2022-04-20 01:36 | PC.NURSE ---
Pt sleeping at this time, respirations regular.
[2022-04-20] MEDS: oxyCODONE HCl Immed Release 5 MG TABLET PO ×5 (03:17→20:23)
--- NOTE | 2022-04-20 03:27 | PC.NURSE ---
Pt requesting pain med, pt given PRN meds. Pt ambulated to restroom, pt has steady gait.
--- NOTE | 2022-04-20 05:08 | PC.NURSE ---
Pt sleeping, respirations regular.
--- NOTE | 2022-04-20 06:02 | PC.NURSE ---
billing and quality technician at bedside, no needs expressed at this time.
[2022-04-20 06:16] VITALS: BP 128/78; PULSE 78; RESP 14; TEMP 36.4; O2SAT 99
[2022-04-20 07:55] LABS: MANUAL DIFF FLAG NO
[2022-04-20 07:59] LABS: Basophils Percent Auto 0.4 % (0-2); Hematocrit 37.4 % (42.0-52.0); Hemoglobin 11.2 g/dl (14.0-18.0); Imm Gran Abs Auto 0.08 X10*3/uL (0.00-0.03); Imm Gran Pct Auto 0.8 % (0.0-0.4); Lymphocytes Absolute Auto 1.3 X10*3/uL (1.2-4.9); Lymphocytes Percent Auto 13.2 % (20-40); Mean Corpuscular HGB Conc 29.9 g/dl (31.0-36.0); Mean Corpuscular Hemoglobin 25.2 pg (27.0-33.0); Mean Corpuscular Volume 84.2 fL (80.0-98.0); Mean Platelet Volume 9.5 fL (9.4-12.4); Monocytes Absolute Auto 0.6 X10*3/uL (0.1-1.2); Monocytes Percent Auto 6.1 % (2-11); Neutrophils Absolute Auto 7.9 x10*3/uL (2.0-8.3); Neutrophils Percent Auto 79.5 % (45-73); Platelet Count 382 X10*3/uL (160-400); Red Blood Count 4.44 X10*6/uL (4.60-5.80); Red Cell Distribution Width 19.2 % (11.0-16.0)
[2022-04-20 08:17] LABS: Anion Gap 13 (12-20); Blood Urea Nitrogen 37 mg/dL (9-16); Calcium 8.8 mg/dL (8.4-10.2); Carbon Dioxide 27 mmol/L (22-29); Chloride 97 mmol/L (96-108); Creatinine Clr Calc Pharmacy 95.6; Estimated Glomerular Filt Rate > 60; Glucose Random 109 mg/dL (60-115); Potassium 3.8 mmol/L (3.3-5.1); Sodium 133 mmol/L (135-145)
--- NOTE | 2022-04-20 09:09 | MHC.CM.PN ---
Patient remains admitted. Per [facility], they will not accept patient back due to leaving AMA. Referral broadcasted in [facility] within 20 miles. Continue to monitor for d/c needs.
[2022-04-20] MEDS: Thiamine HCL 100 MG TABLET PO (10:45)
[2022-04-20] MEDS: Apixaban 5 MG TABLET PO ×2 (10:45→20:22)
[2022-04-20] MEDS: ARIPiprazole 5 MG TABLET PO (10:45)
[2022-04-20] MEDS: Gabapentin 400 MG CAPSULE PO ×3 (10:45→20:22)
[2022-04-20] MEDS: Venlafaxine HCl ER 150 MG CAP.ER.24H PO (10:45)
[2022-04-20] MEDS: dilTIAZem HCL CD 180 MG CAP.ER.24H PO (10:45)
[2022-04-20] MEDS: Metoprolol Tartrate 100 MG TABLET PO ×2 (10:45→20:24)
[2022-04-20] MEDS: PHENobarbitaL 30 MG TABLET PO (10:46)
[2022-04-20] MEDS: Folic Acid 1 MG TABLET PO (10:46)
[2022-04-20] MEDS: Vilazodone HCL 20 MG TABLET PO (10:50)
[2022-04-20] MEDS: PHENobarbitaL 30 MG TABLET 60 MG PO ×2 (11:00→20:24)
[2022-04-20 11:38] VITALS: BMI 31.3
--- NOTE | 2022-04-20 12:22 | P.PNNP_ITS ---
Subjective Subjective Date of Service: 04/20/22 Interval history: seen and examined no complaints Physical Exam Vital Signs: Vital Signs: Last Vital Signs Temp 97.6 F 04/20/22 06:16 Pulse 78 04/20/22 06:16 Resp 14 04/20/22 06:16 BP 128/78 04/20/22 06:16 Pulse Ox 99 04/20/22 06:16 O2 Del Method 04/20/22 06:16 BMI result Body Mass Index 31.3 Const: General: no acute distress HEENT: Head: Yes normocephalic and Yes atraumatic Neck: Neck: Yes supple Resp: Auscultation: diminished lung sounds Cardio: Heart sounds: S1 normal heart sound present and S2 normal heart sound present GI: Palpation (GI): Soft to palpation and nontender Extrem: Right upper extremity: edema Objective Data Labs 04/20/22 07:42 04/20/22 07:42 Labs: Laboratory Results - last 24 hr 04/19/22 04/19/22 04/20/22 16:41 21:58 07:42 WBC 10.0 RBC 4.44 L Hgb 11.2 L Hct 37.4 L MCV 84.2 MCH 25.2 L MCHC 29.9 L RDW 19.2 H Plt Count 382 MPV 9.5 Immature Gran % (Auto) 0.8 H Neut % (Auto) 79.5 H Lymph % (Auto) 13.2 L [place] % (Auto) 6.1 Eos % (Auto) 0.0 Baso % (Auto) 0.4 Lymph # (Auto) 1.3 [place] # (Auto) 0.6 Eos # (Auto) 0.0 Baso # (Auto) 0.0 Abs Immat Gran (auto) 0.08 H Absolute Neuts (auto) 7.9 Absolute Nucleated RBC 0.000 Nucleated RBC % (auto) 0.0 Sodium 130 L 133 L Potassium 4.4 Chloride 94 L Carbon Dioxide 28 Anion Gap 15 BUN 40 H Creatinine 1.69 H Estim Creat Clear Calc 65.0 Estimated GFR 41 Random Glucose 76 Calcium 8.9 04/20/22 07:42 WBC RBC Hgb Hct MCV MCH MCHC RDW Plt Count MPV Immature Gran % (Auto) Neut % (Auto) Lymph % (Auto) [place] % (Auto) Eos % (Auto) Baso % (Auto) Lymph # (Auto) [place] # (Auto) Eos # (Auto) Baso # (Auto) Abs Immat Gran (auto) Absolute Neuts (auto) Absolute Nucleated RBC Nucleated RBC % (auto) Sodium 133 L Potassium 3.8 Chloride 97 Carbon Dioxide 27 Anion Gap 13 BUN 37 H Creatinine 1.15 Estim Creat Clear Calc 95.6 Estimated GFR > 60 Random Glucose 109 Calcium 8.8 Procedures Date of Service Date of Service: 04/20/22 Assessment & Plan Assessment and plan (1) Hyponatremia: Status: Acute Plan Sna normalizing euvolemic hyponatremia low Uosm high Nathalia c/w poor solute excretion REC fluid restriction follow electrolytes Time Spent With Patient Time: Total time managing care of this patient today ____ minutes. Progress Note: Quality Stroke Does the patient have a stroke diagnosis?: No
--- NOTE | 2022-04-20 12:58 | HO.PM.IMPN ---
Subjective Subjective Date of Service: 04/20/22 Interval History: afib ,arian,alcoholwithdrawal hyponatremia Review of Systems Heart rate seems somewhat improvin -now in 100's Still has some tremors, p.o. intake improving Denies any nausea or vomiting or fever or chills or cough as Physical Exam Vital Signs: Vital Signs: Last Vital Signs Temp 97.6 F 04/20/22 06:16 Pulse 78 04/20/22 06:16 Resp 14 04/20/22 06:16 BP 128/78 04/20/22 06:16 Pulse Ox 99 04/20/22 06:16 O2 Del Method 04/20/22 06:16 BMI result Body Mass Index 31.3 Appearance: Alert.? Oriented X3.? Eyes: Pupils equal, round and reactive to light.? Sclera nonicteric.? ENT: Pharynx normal.? Moist mucous membranes. cvs: irregular rythem, [id number]. res: clear to auscultation ,no rhonchii or wheezing abd: no rebound or guarding ,nt, bs present. ext pulses present , no cyanosis . neuro: axo3 , nonfocal. Objective Data Active Medications Acetaminophen (Acetaminophen 325 Mg Tablet) 650 mg PO Q6H PRN PRN Reason: Pain, Mild (Pain Scale 1-3) Last Admin: 04/19/22 08:57 Dose: 650 mg Documented By: LEONIDAS Acetaminophen (Acetaminophen 325 Mg Tablet) 650 mg PO Q4H PRN PRN Reason: Fever Or Pain Apixaban (Apixaban 5 Mg Tablet) 5 mg PO BID [facility] Last Admin: 04/20/22 10:45 Dose: 5 mg Documented By: BLANCA Aripiprazole (Aripiprazole 5 Mg Tablet) 5 mg PO DAILY [facility] Last Admin: 04/20/22 10:45 Dose: 5 mg Documented By: BLANCA Atorvastatin Calcium (Atorvastatin Calcium 40 Mg Tablet) 40 mg PO BEDTIME [facility] Last Admin: 04/19/22 20:51 Dose: 40 mg Documented By: JONATHAN Bisacodyl (Bisacodyl 10 Mg Supp.Rect) 10 mg [place] DAILY PRN PRN Reason: Constipation Diltiazem HCl (Diltiazem Hcl Cd 180 Mg Cap.Er.24h) 180 mg PO DAILY [facility]; Protocol Last Admin: 04/20/22 10:45 Dose: 180 mg Documented By: BLANCA Docusate Sodium (Docusate Sodium 100 Mg Capsule) 100 mg PO DAILY PRN PRN Reason: Constipation Folic Acid (Folic Acid 1 Mg Tablet) 1 mg PO DAILY [facility] Last Admin: 04/20/22 10:46 Dose: 1 mg Documented By: BLANCA Gabapentin (Gabapentin 400 Mg Capsule) 400 mg PO TID [facility] Last Admin: 04/20/22 10:45 Dose: 400 mg Documented By: BLANCA Guaifenesin (Guaifenesin 100 Mg/5 Ml Liquid) 10 ml PO Q4H PRN PRN Reason: Cough Lactic Acid (Ammonium Lactate 12 % Cream 140 Gm Tube) 1 appl TOPICAL DAILY [facility]; Protocol Last Admin: 04/20/22 11:23 Dose: Not Given Documented By: PAVEL Non-Admin Reason: med not available at this time Metoprolol Tartrate (Metoprolol Tartrate 100 Mg Tablet) 100 mg PO BID [facility]; Protocol Last Admin: 04/20/22 10:45 Dose: 100 mg Documented By: BLANCA Naloxone HCl (Naloxone Hcl Nasal 4 Mg [place]) 4 mg NOSTRILALT Q24H PRN PRN Reason: opioid depression Ondansetron HCl (Ondansetron Hcl 4 Mg/2 Ml Vial) 4 mg IVPUSH Q8H PRN PRN Reason: Nausea and Vomiting Oxycodone HCl (Oxycodone Hcl Immed Release 5 Mg Tablet) 5 mg PO Q4H PRN PRN Reason: Pain, Mild (Pain Scale 1-3) Last Admin: 04/20/22 11:42 Dose: 5 mg Documented By: PAVEL Pharmacy Consult (Consult Rx Perform Med Rec) 1 each MISCELLANE ONCE PRN PRN Reason: Consult order Pharmacy Consult (Consult Rx Etoh Phenob Po Only) 1 each MISCELLANE ONCE PRN; Protocol PRN Reason: Consult order Phenobarbital (Phenobarbital 30 Mg Tablet) 60 mg PO BID [facility] Stop: 04/20/22 21:01 Last Admin: 04/20/22 11:00 Dose: 60 mg Documented By: BLANCA Phenobarbital (Phenobarbital 30 Mg Tablet) 30 mg PO BID [facility] Stop: 04/22/22 21:01 Last Admin: 04/20/22 10:46 Dose: 30 mg Documented By: BLANCA Phenobarbital (Phenobarbital 30 Mg Tablet) 30 mg PO DAILY [facility] Stop: 04/24/22 09:01 Sodium Chloride (0.9 % Sodium Chloride Flush 3 Ml Syringe) 3 ml IVFLUSH QSHIFT [facility] Last Admin: 04/20/22 11:20 Dose: Not Given Documented By: PAVEL Non-Admin Reason: Med Not Available Spironolactone (Spironolactone 25 Mg Tablet) 100 mg PO BID [facility]; Protocol Last Admin: 04/19/22 20:51 Dose: 100 mg Documented By: JONATHAN Thiamine HCl (Thiamine Hcl 100 Mg Tablet) 100 mg PO DAILY [facility] Last Admin: 04/20/22 10:45 Dose: 100 mg Documented By: BLANCA Venlafaxine HCl (Venlafaxine Hcl Er 150 Mg Cap.Er.24h) 150 mg PO DAILY [facility] Last Admin: 04/20/22 10:45 Dose: 150 mg Documented By: BLANCA Vilazodone HCl (Vilazodone Hcl 20 Mg Tablet) 20 mg PO DAILY [facility] Last Admin: 04/20/22 10:50 Dose: 20 mg Documented By: BLANCA Zolpidem Tartrate (Zolpidem Tartrate 5 Mg Tablet) 5 mg PO BEDTIME PRN PRN Reason: Insomnia Last Admin: 04/19/22 22:01 Dose: 5 mg Documented By: JONATHAN Labs 04/20/22 07:42 04/20/22 07:42 Labs: Laboratory Results - last 24 hr 04/19/22 04/20/22 04/20/22 21:58 07:42 07:42 MCV 84.2 MCH 25.2 L MCHC 29.9 L RDW 19.2 H Plt Count 382 MPV 9.5 Immature Gran % (Auto) 0.8 H Neut % (Auto) 79.5 H Lymph % (Auto) 13.2 L [place] % (Auto) 6.1 Eos % (Auto) 0.0 Baso % (Auto) 0.4 Lymph # (Auto) 1.3 [place] # (Auto) 0.6 Eos # (Auto) 0.0 Baso # (Auto) 0.0 Abs Immat Gran (auto) 0.08 H Absolute Neuts (auto) 7.9 Absolute Nucleated RBC 0.000 Nucleated RBC % (auto) 0.0 Anion Gap 15 13 Estim Creat Clear Calc 65.0 95.6 Estimated GFR 41 > 60 Random Glucose 76 109 Calcium 8.9 8.8 Assessment and Plan (1) ARIAN (acute kidney injury): Status: Acute Plan 61-year-old male with past medical history of AFib, CHF, alcohol abuse presents to the hospital with complaints of missing his opioid meds and feeling? Withdrawal symptoms. hyponatremia :hyponatremia improivng serum andurine labs noted d/w nephro: placed on fluid restrictions moniter for hyponatremia/elctrolytes Chronic afib with rvr :hr seems improving, likely due to missed meds and alcohol withdrawal HR still goes in 110-115 range with walkin given iv metoprolol in ed echo seems ef 55-60%- Normal left ventricular size and systolic function. There is ? mildly increased left ventricular wall thickness.? The visually? estimated ejection fraction is between 55-60%. ? - There is mildly decreased right ventricular systolic function. Poorly visualized, size appears to be normal.? continue on cardizem /metorprolol , moniter on tele arian:possible sec to decreased po intake ,diuretics hold diuretics moniter bmp. alcohol withdrawal still tramulous continue po phenobarbital taper,moniter ciwa,thiamine,folic acid morbid obesity-encouraged to lose weight. # opioid withdrawal -? resume oxycodone #? hyperlipidemia -? continue statin #? CHF with preserved ejection fraction -? not in exacerbation -? continue? Lasix ?DVT prophylaxis: Katharina ongoing hospitlisation need:arian, hyponatremia ,alcohol withdrawal,afib -need telemoniterin,ciwa moniterin,renal funtionand electrolytic moniterin Time Spent With Patient Time: Total time managing care of this patient today ____ minutes. Quality Stroke Does the patient have a stroke diagnosis?: No VTE Prior VTE?: No VTE Risk Level:: Medical - moderate - high VTE Device Contraindication: Treatment Not Indicated VTE Drug Contraindication: N/A - Med Ordered
[2022-04-20] MEDS: Ammonium Lactate 12 % Cream 140 GM TUBE 1 APPL TOPICAL (14:13)
--- NOTE | 2022-04-20 14:55 | PC.NURSE ---
all diuretics on hold today per attending, CKD is becoming worse.
[2022-04-20 15:41] VITALS: BP 119/79; PULSE 84; RESP 18; TEMP 36.2; O2SAT 96
--- NOTE | 2022-04-20 16:04 | MHC.RECOVRN ---
Met with pt in ED Overflow after consult placed to Addiction Medicine. Pt sitting in bed, awake, alert, difficult to engage in conversation, watching TV. Pt states I'm not even drinking, I only had a few beers. Pt reports feeling comfortable with where he is at as far as substance use. Declines recovery support/services at this time. Aury Hernandez APRN, aware.
--- NOTE | 2022-04-20 16:19 | PC.NURSE ---
PATIENT REFUSES BED ALARM ,CHAIR ALARM,ALSO REFUSES TELESITER,PRIMARY RN DOMINGO NOTIFIED
[2022-04-20] MEDS: 0.9 % Sodium Chloride Flush 3 ML SYRINGE IVFLUSH (18:42)
[2022-04-20 19:26] VITALS: BP 103/62; PULSE 89; RESP 20; TEMP 36.6; O2SAT 96
--- NOTE | 2022-04-20 20:11 | PC.NURSE ---
patient ambulating himself in the hallway,refuses assistance,steady .
[2022-04-20] MEDS: Atorvastatin Calcium 40 MG TABLET PO (20:22)
[2022-04-20] MEDS: Zolpidem Tartrate 5 MG TABLET PO (20:32)
[2022-04-20 23:51] VITALS: BP 104/67; PULSE 82; RESP 18; TEMP 36; O2SAT 96
[2022-04-21] MEDS: 0.9 % Sodium Chloride Flush 3 ML SYRINGE IVFLUSH ×3 (00:04→16:08)
[2022-04-21] MEDS: oxyCODONE HCl Immed Release 5 MG TABLET PO ×6 (00:30→21:40)
--- NOTE | 2022-04-21 01:10 | PC.NURSE ---
DISCUSSED CIWA MONITORING AND HFR SAFETY WITH A BED ALARM AND OR CAMERA AND PT CONTINUES TO DECLINE BOTH. HE STATES EVERYTIME HE MOVES IN BED THE ALARM SOUNDS. HE DENIES FEELING WEAK, LIGHTHEADED, OR ANY DIZZINESS, BUT TOLD THIS MANAGER LICENSING HE WOULD USE CALL HATCH IF HE DID OR NEEDED ASSISTANCE. PROTOCOL REVIEWED WITH PT AND WILL MONITOR CLOSELY. A/O X3, COLOR GOOD, VSS, ANSWERING APPROPRIATELY, CIWA SCORE =0 AT THIS TIME ON 0000 ASSESSMENT.
[2022-04-21 04:00] VITALS: BP 114/69; PULSE 89; RESP 18; TEMP 36.4; O2SAT 100
[2022-04-21 06:00] VITALS: BMI 42.7
[2022-04-21 06:58] VITALS: BP 120/58; PULSE 84; RESP 19; TEMP 36.4; O2SAT 96
[2022-04-21 07:39] VITALS: BMI 42.1
[2022-04-21 07:40] VITALS: TEMP 36.6
[2022-04-21] MEDS: Apixaban 5 MG TABLET PO ×2 (08:51→20:05)
[2022-04-21] MEDS: Thiamine HCL 100 MG TABLET PO (08:52)
[2022-04-21] MEDS: Metoprolol Tartrate 100 MG TABLET PO ×2 (08:52→20:06)
[2022-04-21] MEDS: ARIPiprazole 5 MG TABLET PO (08:53)
[2022-04-21] MEDS: Gabapentin 400 MG CAPSULE PO ×3 (08:53→20:05)
[2022-04-21] MEDS: Vilazodone HCL 20 MG TABLET PO (08:53)
[2022-04-21] MEDS: Folic Acid 1 MG TABLET PO (08:53)
[2022-04-21] MEDS: Venlafaxine HCl ER 150 MG CAP.ER.24H PO (08:53)
[2022-04-21] MEDS: dilTIAZem HCL CD 180 MG CAP.ER.24H PO (08:53)
--- NOTE | 2022-04-21 09:46 | PM.PNNEP ---
Subjective Subjective Date of Service: 04/21/22 Interval history: seen and examined no complaints Physical Exam Vital Signs: Vital Signs: Last Vital Signs Temp 98 F 04/21/22 07:40 Pulse 84 04/21/22 06:58 Resp 19 04/21/22 06:58 BP 120/58 L 04/21/22 06:58 Pulse Ox 96 04/21/22 06:58 O2 Del Method 04/21/22 06:58 BMI result Body Mass Index 42.1 Const: General: no acute distress HEENT: Head: Yes normocephalic and Yes atraumatic Neck: Neck: Yes supple Resp: Auscultation: diminished lung sounds Cardio: Heart sounds: S1 normal heart sound present and S2 normal heart sound present GI: Palpation (GI): Soft to palpation and nontender Extrem: Right upper extremity: edema Objective Data Labs 04/20/22 07:42 04/20/22 07:42 Procedures Date of Service Date of Service: 04/21/22 Assessment & Plan Assessment and plan (1) Hyponatremia: Status: Acute Plan Sna better euvolemic hyponatremia low Uosm high Nathalia c/w poor solute excretion REC continue fluid restriction follow electrolytes Time Spent With Patient Time: Total time managing care of this patient today ____ minutes. Progress Note: Quality Stroke Does the patient have a stroke diagnosis?: No
--- NOTE | 2022-04-21 10:38 | MHC.CM.PN ---
EMR REVIEWED, NUHA CASTILLO WILLING TO FOLLOW HOWEVER DO NOT HAVE A BED TODAY, HOSPITALIST AWARE. CM WILL CONT TO FOLLOW.
[2022-04-21 11:13] VITALS: PULSE 80; O2SAT 97
--- NOTE | 2022-04-21 15:19 | HO.PM.IMPN ---
Subjective Subjective Date of Service: 04/22/22 Interval History: afib ,arian,alcoholwithdrawal,hyponatremia Review of Systems Tremor seems to be improving denies any chest pain or shortness of breath or abdominal pain Heart rate also improving. Physical Exam Vital Signs: Vital Signs: Last Vital Signs Temp 98 F 04/21/22 07:40 Pulse 80 04/21/22 11:13 Resp 19 04/21/22 06:58 BP 120/58 L 04/21/22 06:58 Pulse Ox 97 04/21/22 11:13 O2 Del Method 04/21/22 06:58 BMI result Body Mass Index 42.1 Appearance: Alert.? Oriented X3.? Eyes: Pupils equal, round and reactive to light.? Sclera nonicteric.? ENT: Pharynx normal.? Moist mucous membranes. cvs: irregular rythem, [id number]. res: clear to auscultation ,no rhonchii or wheezing abd: no rebound or guarding ,nt, bs present. ext pulses present , no cyanosis . neuro: axo3 , nonfocal. Objective Data Active Medications Acetaminophen (Acetaminophen 325 Mg Tablet) 650 mg PO Q6H PRN PRN Reason: Pain, Mild (Pain Scale 1-3) Last Admin: 04/19/22 08:57 Dose: 650 mg Documented By: LEONIDAS Acetaminophen (Acetaminophen 325 Mg Tablet) 650 mg PO Q4H PRN PRN Reason: Fever Or Pain Apixaban (Apixaban 5 Mg Tablet) 5 mg PO BID [facility] Last Admin: 04/21/22 08:51 Dose: 5 mg Documented By: EUNICE Aripiprazole (Aripiprazole 5 Mg Tablet) 5 mg PO DAILY [facility] Last Admin: 04/21/22 08:53 Dose: 5 mg Documented By: EUNICE Atorvastatin Calcium (Atorvastatin Calcium 40 Mg Tablet) 40 mg PO BEDTIME [facility] Last Admin: 04/20/22 20:22 Dose: 40 mg Documented By: KATHE Bisacodyl (Bisacodyl 10 Mg Supp.Rect) 10 mg [place] DAILY PRN PRN Reason: Constipation Diltiazem HCl (Diltiazem Hcl Cd 180 Mg Cap.Er.24h) 180 mg PO DAILY [facility]; Protocol Last Admin: 04/21/22 08:53 Dose: 180 mg Documented By: EUNICE Docusate Sodium (Docusate Sodium 100 Mg Capsule) 100 mg PO DAILY PRN PRN Reason: Constipation Folic Acid (Folic Acid 1 Mg Tablet) 1 mg PO DAILY [facility] Last Admin: 04/21/22 08:53 Dose: 1 mg Documented By: EUNICE Gabapentin (Gabapentin 400 Mg Capsule) 400 mg PO TID [facility] Last Admin: 04/21/22 14:40 Dose: 400 mg Documented By: EUNICE Guaifenesin (Guaifenesin 100 Mg/5 Ml Liquid) 10 ml PO Q4H PRN PRN Reason: Cough Lactic Acid (Ammonium Lactate 12 % Cream 140 Gm Tube) 1 appl TOPICAL DAILY [facility]; Protocol Last Admin: 04/20/22 14:13 Dose: 1 appl Documented By: BLANCA Metoprolol Tartrate (Metoprolol Tartrate 100 Mg Tablet) 100 mg PO BID [facility]; Protocol Last Admin: 04/21/22 08:52 Dose: 100 mg Documented By: EUNICE Naloxone HCl (Naloxone Hcl Nasal 4 Mg [place]) 4 mg NOSTRILALT Q24H PRN PRN Reason: opioid depression Ondansetron HCl (Ondansetron Hcl 4 Mg/2 Ml Vial) 4 mg IVPUSH Q8H PRN PRN Reason: Nausea and Vomiting Oxycodone HCl (Oxycodone Hcl Immed Release 5 Mg Tablet) 5 mg PO Q4H PRN PRN Reason: Pain, Mild (Pain Scale 1-3) Last Admin: 04/21/22 13:26 Dose: 5 mg Documented By: EUNICE Pharmacy Consult (Consult Rx Perform Med Rec) 1 each MISCELLANE ONCE PRN PRN Reason: Consult order Pharmacy Consult (Consult Rx Etoh Phenob Po Only) 1 each MISCELLANE ONCE PRN; Protocol PRN Reason: Consult order Phenobarbital (Phenobarbital 30 Mg Tablet) 30 mg PO BID [facility] Stop: 04/22/22 21:01 Last Admin: 04/20/22 10:46 Dose: 30 mg Documented By: BLANCA Phenobarbital (Phenobarbital 30 Mg Tablet) 30 mg PO DAILY [facility] Stop: 04/24/22 09:01 Sodium Chloride (0.9 % Sodium Chloride Flush 3 Ml Syringe) 3 ml IVFLUSH QSHIFT [facility] Last Admin: 04/21/22 08:53 Dose: 3 ml Documented By: EUNICE Spironolactone (Spironolactone 25 Mg Tablet) 100 mg PO BID [facility]; Protocol Last Admin: 04/19/22 20:51 Dose: 100 mg Documented By: SEE-LITALEXEI Thiamine HCl (Thiamine Hcl 100 Mg Tablet) 100 mg PO DAILY [facility] Last Admin: 04/21/22 08:52 Dose: 100 mg Documented By: EUNICE Venlafaxine HCl (Venlafaxine Hcl Er 150 Mg Cap.Er.24h) 150 mg PO DAILY [facility] Last Admin: 04/21/22 08:53 Dose: 150 mg Documented By: EUNICE Vilazodone HCl (Vilazodone Hcl 20 Mg Tablet) 20 mg PO DAILY [facility] Last Admin: 04/21/22 08:53 Dose: 20 mg Documented By: EUNICE Zolpidem Tartrate (Zolpidem Tartrate 5 Mg Tablet) 5 mg PO BEDTIME PRN PRN Reason: Insomnia Last Admin: 04/20/22 20:32 Dose: 5 mg Documented By: BEIT Labs 04/20/22 07:42 04/20/22 07:42 Assessment and Plan (1) ARIAN (acute kidney injury): Status: Acute (2) Atrial fibrillation with RVR: Status: Acute Plan 61-year-old male with past medical history of AFib, CHF, alcohol abuse presents to the hospital with complaints of missing his opioid meds and feeling? Withdrawal symptoms. hyponatremia :hyponatremia improivng serum andurine labs noted d/w nephro: placed on fluid restrictions moniter for hyponatremia/elctrolytes Chronic afib with rvr :hr seems improving, likely due to missed meds and alcohol withdrawal HR still goes in 110-115 range with walkin given iv metoprolol in ed? echo seems ef? 55-60%- Normal left ventricular size and systolic function. There is ? mildly increased left ventricular wall thickness.? The visually? estimated ejection fraction is between 55-60%. ? - There is mildly decreased right ventricular systolic function. Poorly visualized, size appears to be normal.? continue? on cardizem /metorprolol , moniter on tele arian:possible sec to decreased po intake ,diuretics hold diuretics moniter bmp. alcohol withdrawal still tramulous continue? po phenobarbital taper,moniter ciwa,thiamine,folic acid morbid obesity-encouraged to lose weight. # opioid withdrawal -? resume oxycodone #? hyperlipidemia -? continue statin #? CHF with preserved ejection fraction -? not in exacerbation -? continue? Lasix ?DVT prophylaxis: Katharina ongoing hospitlisation need:snf placement Time Spent With Patient Time: Total time managing care of this patient today ____ minutes. Quality Stroke Does the patient have a stroke diagnosis?: No VTE Prior VTE?: No VTE Risk Level:: Medical - moderate - high VTE Device Contraindication: Treatment Not Indicated VTE Drug Contraindication: N/A - Med Ordered
[2022-04-21 15:56] VITALS: BP 130/77; PULSE 100; RESP 20; TEMP 36.6; O2SAT 97
[2022-04-21] MEDS: Acetaminophen 325 MG TABLET 650 MG PO (16:25)
[2022-04-21 20:00] VITALS: BP 122/77; PULSE 94; RESP 20; TEMP 35.9; O2SAT 100
[2022-04-21] MEDS: Atorvastatin Calcium 40 MG TABLET PO (20:05)
[2022-04-21] MEDS: PHENobarbitaL 30 MG TABLET PO (20:05)
[2022-04-21] MEDS: Zolpidem Tartrate 5 MG TABLET PO (20:12)
[2022-04-22] VITALS (8 sets, daily range): BP systolic 96–134; BP diastolic 55–78; PULSE 84–100; RESP 17–20; TEMP 36–36.8; O2SAT 98–100
[2022-04-22] MEDS: 0.9 % Sodium Chloride Flush 3 ML SYRINGE IVFLUSH ×4 (00:15→23:46)
[2022-04-22] MEDS: oxyCODONE HCl Immed Release 5 MG TABLET PO ×6 (01:41→21:54)
--- NOTE | 2022-04-22 08:31 | PM.PNNEP ---
Subjective Subjective Date of Service: 04/22/22 Interval history: seen and examined complains of lower extremity edema Physical Exam Vital Signs: Vital Signs: Last Vital Signs Temp 96.8 F 04/22/22 07:55 Pulse 100 04/22/22 07:55 Resp 17 04/22/22 07:55 BP 96/55 L 04/22/22 07:55 Pulse Ox 98 04/22/22 07:55 O2 Del Method 04/22/22 07:55 BMI result Body Mass Index 42.1 Const: General: no acute distress HEENT: Head: Yes normocephalic and Yes atraumatic Neck: Neck: Yes supple Resp: Auscultation: diminished lung sounds Cardio: Heart sounds: S1 normal heart sound present and S2 normal heart sound present GI: Palpation (GI): Soft to palpation and nontender Extrem: Right upper extremity: edema Objective Data Labs 04/20/22 07:42 04/20/22 07:42 Procedures Date of Service Date of Service: 04/22/22 Assessment & Plan Assessment and plan (1) Hyponatremia: Status: Acute Plan Sna better euvolemic hyponatremia low Uosm high Nathalia c/w poor solute excretion LVEF 55-60% REC resume oral furosemide 40 mg daily continue fluid restriction follow electrolytes Time Spent With Patient Time: Total time managing care of this patient today ____ minutes. Progress Note: Quality Stroke Does the patient have a stroke diagnosis?: No
[2022-04-22] MEDS: dilTIAZem HCL CD 180 MG CAP.ER.24H PO (09:56)
[2022-04-22] MEDS: Metoprolol Tartrate 100 MG TABLET PO ×2 (09:56→20:06)
[2022-04-22] MEDS: Thiamine HCL 100 MG TABLET PO (09:57)
[2022-04-22] MEDS: Venlafaxine HCl ER 150 MG CAP.ER.24H PO (09:57)
[2022-04-22] MEDS: Gabapentin 400 MG CAPSULE PO ×3 (09:57→20:06)
[2022-04-22] MEDS: PHENobarbitaL 30 MG TABLET PO ×2 (09:57→20:06)
[2022-04-22] MEDS: Ammonium Lactate 12 % Cream 140 GM TUBE 1 APPL TOPICAL (09:57)
[2022-04-22] MEDS: Vilazodone HCL 20 MG TABLET PO (09:57)
[2022-04-22] MEDS: ARIPiprazole 5 MG TABLET PO (09:57)
[2022-04-22] MEDS: Apixaban 5 MG TABLET PO ×2 (09:57→20:06)
[2022-04-22] MEDS: Folic Acid 1 MG TABLET PO (09:57)
--- NOTE | 2022-04-22 11:58 | HO.PM.IMPN ---
Subjective Subjective Date of Service: 04/23/22 Interval History: afib ,arian,alcoholwithdrawal,hyponatremia Review of Systems Tremor improved, denies any chest pain or shortness of breath or abdominal pain Heart rate also acceptable. Asymptomatic Physical Exam Vital Signs: Vital Signs: Last Vital Signs Temp 96.8 F 04/22/22 07:55 Pulse 88 04/22/22 09:54 Resp 20 04/22/22 09:54 BP 127/78 04/22/22 09:54 Pulse Ox 98 04/22/22 09:54 O2 Del Method 04/22/22 09:54 BMI result Body Mass Index 42.1 Appearance: Alert.? Oriented X3.? Eyes: Pupils equal, round and reactive to light.? Sclera nonicteric.? ENT: Pharynx normal.? Moist mucous membranes. cvs: irregular rythem, [id number]. res: clear to auscultation ,no rhonchii or wheezing abd: no rebound or guarding ,nt, bs present. ext pulses present , no cyanosis . neuro: axo3 , nonfocal. Objective Data Active Medications Acetaminophen (Acetaminophen 325 Mg Tablet) 650 mg PO Q6H PRN PRN Reason: Pain, Mild (Pain Scale 1-3) Last Admin: 04/21/22 16:25 Dose: 650 mg Documented By: KATHE Acetaminophen (Acetaminophen 325 Mg Tablet) 650 mg PO Q4H PRN PRN Reason: Fever Or Pain Apixaban (Apixaban 5 Mg Tablet) 5 mg PO BID [facility] Last Admin: 04/22/22 09:57 Dose: 5 mg Documented By: MIRIAM Aripiprazole (Aripiprazole 5 Mg Tablet) 5 mg PO DAILY [facility] Last Admin: 04/22/22 09:57 Dose: 5 mg Documented By: MIRIAM Atorvastatin Calcium (Atorvastatin Calcium 40 Mg Tablet) 40 mg PO BEDTIME [facility] Last Admin: 04/21/22 20:05 Dose: 40 mg Documented By: KATHE Bisacodyl (Bisacodyl 10 Mg Supp.Rect) 10 mg [place] DAILY PRN PRN Reason: Constipation Diltiazem HCl (Diltiazem Hcl Cd 180 Mg Cap.Er.24h) 180 mg PO DAILY [facility]; Protocol Last Admin: 04/22/22 09:56 Dose: 180 mg Documented By: MIRIAM Docusate Sodium (Docusate Sodium 100 Mg Capsule) 100 mg PO DAILY PRN PRN Reason: Constipation Folic Acid (Folic Acid 1 Mg Tablet) 1 mg PO DAILY [facility] Last Admin: 04/22/22 09:57 Dose: 1 mg Documented By: MIRIAM Gabapentin (Gabapentin 400 Mg Capsule) 400 mg PO TID [facility] Last Admin: 04/22/22 09:57 Dose: 400 mg Documented By: MIRIAM Guaifenesin (Guaifenesin 100 Mg/5 Ml Liquid) 10 ml PO Q4H PRN PRN Reason: Cough Lactic Acid (Ammonium Lactate 12 % Cream 140 Gm Tube) 1 appl TOPICAL DAILY [facility]; Protocol Last Admin: 04/22/22 09:57 Dose: 1 appl Documented By: MIRIAM Metoprolol Tartrate (Metoprolol Tartrate 100 Mg Tablet) 100 mg PO BID [facility]; Protocol Last Admin: 04/22/22 09:56 Dose: 100 mg Documented By: MIRIAM Naloxone HCl (Naloxone Hcl Nasal 4 Mg [place]) 4 mg NOSTRILALT Q24H PRN PRN Reason: opioid depression Ondansetron HCl (Ondansetron Hcl 4 Mg/2 Ml Vial) 4 mg IVPUSH Q8H PRN PRN Reason: Nausea and Vomiting Oxycodone HCl (Oxycodone Hcl Immed Release 5 Mg Tablet) 5 mg PO Q4H PRN PRN Reason: Pain, Mild (Pain Scale 1-3) Last Admin: 04/22/22 09:56 Dose: 5 mg Documented By: MIRIAM Pharmacy Consult (Consult Rx Perform Med Rec) 1 each MISCELLANE ONCE PRN PRN Reason: Consult order Pharmacy Consult (Consult Rx Etoh Phenob Po Only) 1 each MISCELLANE ONCE PRN; Protocol PRN Reason: Consult order Phenobarbital (Phenobarbital 30 Mg Tablet) 30 mg PO BID [facility] Stop: 04/22/22 21:01 Last Admin: 04/22/22 09:57 Dose: 30 mg Documented By: MIRIAM Phenobarbital (Phenobarbital 30 Mg Tablet) 30 mg PO DAILY [facility] Stop: 04/24/22 09:01 Sodium Chloride (0.9 % Sodium Chloride Flush 3 Ml Syringe) [facility] Last Admin: 04/22/22 09:56 Dose: 3 ml Documented By: MIRIAM Spironolactone (Spironolactone 25 Mg Tablet) 100 mg PO BID [facility]; Protocol Last Admin: 04/19/22 20:51 Dose: 100 mg Documented By: SEE-LITTA Thiamine HCl (Thiamine Hcl 100 Mg Tablet) 100 mg PO DAILY [facility] Last Admin: 04/22/22 09:57 Dose: 100 mg Documented By: MIRIAM Venlafaxine HCl (Venlafaxine Hcl Er 150 Mg Cap.Er.24h) 150 mg PO DAILY [facility] Last Admin: 04/22/22 09:57 Dose: 150 mg Documented By: MIRIAM Vilazodone HCl (Vilazodone Hcl 20 Mg Tablet) 20 mg PO DAILY [facility] Last Admin: 04/22/22 09:57 Dose: 20 mg Documented By: MIRIAM Zolpidem Tartrate (Zolpidem Tartrate 5 Mg Tablet) 5 mg PO BEDTIME PRN PRN Reason: Insomnia Last Admin: 04/21/22 20:12 Dose: 5 mg Documented By: BEIT Labs 04/20/22 07:42 04/20/22 07:42 Assessment and Plan (1) ARIAN (acute kidney injury): Status: Acute (2) Atrial fibrillation with RVR: Status: Acute Plan 61-year-old male with past medical history of AFib, CHF, alcohol abuse presents to the hospital with complaints of missing his opioid meds and feeling? Withdrawal symptoms. hyponatremia :hyponatremia improivng serum andurine labs noted d/w nephro: placed on fluid restrictions moniter for hyponatremia/elctrolytes Chronic afib with rvr :hr seems improving, likely due to missed meds and alcohol withdrawal HR still goes in 110-115 range with walkin given iv metoprolol in ed? echo seems ef? 55-60%- Normal left ventricular size and systolic function. There is ? mildly increased left ventricular wall thickness.? The visually? estimated ejection fraction is between 55-60%. ? - There is mildly decreased right ventricular systolic function. Poorly visualized, size appears to be normal.? continue? on cardizem /metorprolol , moniter on tele arian:possible sec to decreased po intake ,diuretics hold diuretics moniter bmp. alcohol withdrawal still tramulous continue? po phenobarbital taper,moniter ciwa,thiamine,folic acid morbid obesity-encouraged to lose weight. # opioid withdrawal -? resume oxycodone #? hyperlipidemia -? continue statin #? CHF with preserved ejection fraction -? not in exacerbation -? continue? Lasix ?DVT prophylaxis: Eliquis ongoing hospitlisation need:snf placement Time Spent With Patient Time: Total time managing care of this patient today ____ minutes. Quality Stroke Does the patient have a stroke diagnosis?: No VTE Prior VTE?: No VTE Risk Level:: Medical - moderate - high VTE Device Contraindication: Treatment Not Indicated VTE Drug Contraindication: N/A - Med Ordered
[2022-04-22] MEDS: Atorvastatin Calcium 40 MG TABLET PO (20:06)
[2022-04-22] MEDS: Zolpidem Tartrate 5 MG TABLET PO (20:07)
[2022-04-23] MEDS: oxyCODONE HCl Immed Release 5 MG TABLET PO ×6 (01:59→22:32)
[2022-04-23 03:21] VITALS: BP 114/61; PULSE 98; RESP 18; TEMP 36.6; O2SAT 100
[2022-04-23 08:00] VITALS: BP 99/68; PULSE 93; RESP 17; TEMP 36.1; O2SAT 99
--- NOTE | 2022-04-23 08:32 | P.PNIM_ITS ---
Subjective Subjective Date of Service: 04/23/22 Interval History: afib ,alcohol abuse Review of Systems Tremor improved, denies any chest pain or shortness of breath or abdominal pain Heart rate also acceptable.? Asymptomatic Physical Exam Vital Signs: Vital Signs: Last Vital Signs Temp 96.9 F 04/23/22 08:00 Pulse 93 04/23/22 08:00 Resp 17 04/23/22 08:00 BP 99/68 04/23/22 08:00 Pulse Ox 99 04/23/22 08:00 O2 Del Method 04/23/22 08:00 BMI result Body Mass Index 42.1 Appearance: Alert.? Oriented X3.? cvs: irregular rythem, [id number]. res: clear to auscultation ,no rhonchii or wheezing abd: no rebound or guarding ,nt, bs present. ext pulses present , no cyanosis . neuro: axo3 , nonfocal. Objective Data Active Medications Acetaminophen (Acetaminophen 325 Mg Tablet) 650 mg PO Q6H PRN PRN Reason: Pain, Mild (Pain Scale 1-3) Last Admin: 04/21/22 16:25 Dose: 650 mg Documented By: KATHE Acetaminophen (Acetaminophen 325 Mg Tablet) 650 mg PO Q4H PRN PRN Reason: Fever Or Pain Apixaban (Apixaban 5 Mg Tablet) 5 mg PO BID [facility] Last Admin: 04/22/22 20:06 Dose: 5 mg Documented By: KATHE Aripiprazole (Aripiprazole 5 Mg Tablet) 5 mg PO DAILY [facility] Last Admin: 04/22/22 09:57 Dose: 5 mg Documented By: MIRIAM Atorvastatin Calcium (Atorvastatin Calcium 40 Mg Tablet) 40 mg PO BEDTIME [facility] Last Admin: 04/22/22 20:06 Dose: 40 mg Documented By: KATHE Bisacodyl (Bisacodyl 10 Mg Supp.Rect) 10 mg [place] DAILY PRN PRN Reason: Constipation Diltiazem HCl (Diltiazem Hcl Cd 180 Mg Cap.Er.24h) 180 mg PO DAILY [facility]; Protocol Last Admin: 04/22/22 09:56 Dose: 180 mg Documented By: MIRIAM Docusate Sodium (Docusate Sodium 100 Mg Capsule) 100 mg PO DAILY PRN PRN Reason: Constipation Folic Acid (Folic Acid 1 Mg Tablet) 1 mg PO DAILY [facility] Last Admin: 04/22/22 09:57 Dose: 1 mg Documented By: MIRIAM Gabapentin (Gabapentin 400 Mg Capsule) 400 mg PO TID [facility] Last Admin: 04/22/22 20:06 Dose: 400 mg Documented By: KATHE Guaifenesin (Guaifenesin 100 Mg/5 Ml Liquid) 10 ml PO Q4H PRN PRN Reason: Cough Lactic Acid (Ammonium Lactate 12 % Cream 140 Gm Tube) 1 appl TOPICAL DAILY [facility]; Protocol Last Admin: 04/22/22 09:57 Dose: 1 appl Documented By: MIRIAM Metoprolol Tartrate (Metoprolol Tartrate 100 Mg Tablet) 100 mg PO BID [facility]; Protocol Last Admin: 04/22/22 20:06 Dose: 100 mg Documented By: KATHE Naloxone HCl (Naloxone Hcl Nasal 4 Mg [place]) 4 mg NOSTRILALT Q24H PRN PRN Reason: opioid depression Ondansetron HCl (Ondansetron Hcl 4 Mg/2 Ml Vial) 4 mg IVPUSH Q8H PRN PRN Reason: Nausea and Vomiting Oxycodone HCl (Oxycodone Hcl Immed Release 5 Mg Tablet) 5 mg PO Q4H PRN PRN Reason: Pain, Mild (Pain Scale 1-3) Last Admin: 04/23/22 05:59 Dose: 5 mg Documented By: JAIME Pharmacy Consult (Consult Rx Perform Med Rec) 1 each MISCELLANE ONCE PRN PRN Reason: Consult order Pharmacy Consult (Consult Rx Etoh Phenob Po Only) 1 each MISCELLANE ONCE PRN; Protocol PRN Reason: Consult order Phenobarbital (Phenobarbital 30 Mg Tablet) 30 mg PO DAILY [facility] Stop: 04/24/22 09:01 Sodium Chloride (0.9 % Sodium Chloride Flush 3 Ml Syringe) 3 ml IVFLUSH QSHIFT [facility] Last Admin: 04/22/22 23:46 Dose: 3 ml Documented By: JAIME Spironolactone (Spironolactone 25 Mg Tablet) 100 mg PO BID [facility]; Protocol Last Admin: 04/19/22 20:51 Dose: 100 mg Documented By: SEE-LITTA Thiamine HCl (Thiamine Hcl 100 Mg Tablet) 100 mg PO DAILY [facility] Last Admin: 04/22/22 09:57 Dose: 100 mg Documented By: MIRIAM Venlafaxine HCl (Venlafaxine Hcl Er 150 Mg Cap.Er.24h) 150 mg PO DAILY [facility] Last Admin: 04/22/22 09:57 Dose: 150 mg Documented By: MIRIAM Vilazodone HCl (Vilazodone Hcl 20 Mg Tablet) 20 mg PO DAILY [facility] Last Admin: 04/22/22 09:57 Dose: 20 mg Documented By: MIRIAM Zolpidem Tartrate (Zolpidem Tartrate 5 Mg Tablet) 5 mg PO BEDTIME PRN PRN Reason: Insomnia Last Admin: 04/22/22 20:07 Dose: 5 mg Documented By: BEIT Labs 04/20/22 07:42 04/20/22 07:42 Assessment and Plan (1) ARIAN (acute kidney injury): Status: Acute (2) Atrial fibrillation with RVR: Status: Acute Plan 61-year-old male with past medical history of AFib, CHF, alcohol abuse presents to the hospital with complaints of missing his opioid meds and feeling? Withdrawal symptoms. hyponatremia :hyponatremia improivng serum andurine labs noted d/w nephro: placed on fluid restrictions moniter for hyponatremia/elctrolytes Chronic afib with rvr :hr seems improving, likely due to missed meds and alcohol withdrawal HR still goes in 110-115 range with walkin given iv metoprolol in ed? echo seems ef? 55-60%- Normal left ventricular size and systolic function. There is ? mildly increased left ventricular wall thickness.? The visually? estimated ejection fraction is between 55-60%. ? - There is mildly decreased right ventricular systolic function. Poorly visualized, size appears to be normal.? continue? on cardizem /metorprolol , moniter on tele arian:possible sec to decreased po intake ,diuretics hold diuretics moniter bmp. alcohol withdrawal still tramulous continue? po phenobarbital taper,moniter ciwa,thiamine,folic acid morbid obesity-encouraged to lose weight. # opioid withdrawal -? resume oxycodone #? hyperlipidemia -? continue statin #? CHF with preserved ejection fraction -? not in exacerbation -? continue? Lasix ?DVT prophylaxis: Eliquis ongoing hospitlisation need:snf placement Time Spent With Patient Time: Total time managing care of this patient today ____ minutes. Quality Stroke Does the patient have a stroke diagnosis?: No VTE Prior VTE?: No VTE Risk Level:: Medical - moderate - high VTE Device Contraindication: Treatment Not Indicated VTE Drug Contraindication: N/A - Med Ordered
--- NOTE | 2022-04-23 09:31 | PM.PNNEP ---
Subjective Subjective Date of Service: 04/23/22 Interval history: seen and examined sitting out bed c/o lower extremity edema Physical Exam Vital Signs: Vital Signs: Last Vital Signs Temp 96.9 F 04/23/22 08:00 Pulse 93 04/23/22 08:00 Resp 17 04/23/22 08:00 BP 99/68 04/23/22 08:00 Pulse Ox 99 04/23/22 08:00 O2 Del Method 04/23/22 08:00 BMI result Body Mass Index 42.1 Const: General: no acute distress HEENT: Head: Yes normocephalic and Yes atraumatic Neck: Neck: Yes supple Resp: Auscultation: diminished lung sounds Cardio: Heart sounds: S1 normal heart sound present and S2 normal heart sound present GI: Palpation (GI): Soft to palpation and nontender Extrem: Right upper extremity: edema Objective Data Labs 04/20/22 07:42 04/20/22 07:42 Procedures Date of Service Date of Service: 04/23/22 Assessment & Plan Assessment and plan (1) Hyponatremia: Status: Acute Plan Sna stable euvolemic hyponatremia low Uosm high Nathalia c/w poor solute excretion LVEF 55-60% REC resume home dose diuretics continue fluid restriction follow electrolytes Time Spent With Patient Time: Total time managing care of this patient today ____ minutes. Progress Note: Quality Stroke Does the patient have a stroke diagnosis?: No
[2022-04-23] MEDS: Thiamine HCL 100 MG TABLET PO (10:21)
[2022-04-23] MEDS: Gabapentin 400 MG CAPSULE PO ×3 (10:21→20:32)
[2022-04-23] MEDS: Venlafaxine HCl ER 150 MG CAP.ER.24H PO (10:21)
[2022-04-23] MEDS: Vilazodone HCL 20 MG TABLET PO (10:22)
[2022-04-23] MEDS: ARIPiprazole 5 MG TABLET PO (10:22)
[2022-04-23] MEDS: PHENobarbitaL 30 MG TABLET PO (10:22)
[2022-04-23] MEDS: dilTIAZem HCL CD 180 MG CAP.ER.24H PO (10:22)
[2022-04-23] MEDS: Folic Acid 1 MG TABLET PO (10:22)
[2022-04-23] MEDS: Apixaban 5 MG TABLET PO ×2 (10:22→20:32)
[2022-04-23] MEDS: Ammonium Lactate 12 % Cream 140 GM TUBE 1 APPL TOPICAL (10:23)
[2022-04-23] MEDS: Metoprolol Tartrate 100 MG TABLET PO (10:23)
[2022-04-23] MEDS: 0.9 % Sodium Chloride Flush 3 ML SYRINGE IVFLUSH ×3 (10:23→20:32)
[2022-04-23 11:15] VITALS: BP 105/58; PULSE 92; RESP 17; TEMP 36.2; O2SAT 99
[2022-04-23 15:42] VITALS: BP 97/59; PULSE 85; RESP 16; TEMP 36.3; O2SAT 99
[2022-04-23 19:39] VITALS: BP 96/64; PULSE 73; RESP 16; TEMP 36.6; O2SAT 100
[2022-04-23] MEDS: Zolpidem Tartrate 5 MG TABLET PO (20:32)
[2022-04-23] MEDS: Atorvastatin Calcium 40 MG TABLET PO (20:32)
[2022-04-24] MEDS: oxyCODONE HCl Immed Release 5 MG TABLET PO ×5 (02:29→20:17)
[2022-04-24 04:00] VITALS: BP 111/63; PULSE 86; RESP 18; TEMP 36.1; O2SAT 97
[2022-04-24 07:30] VITALS: BP 103/58; PULSE 93; RESP 16; O2SAT 100
[2022-04-24] MEDS: Apixaban 5 MG TABLET PO ×2 (07:36→20:15)
[2022-04-24] MEDS: Vilazodone HCL 20 MG TABLET PO (07:36)
[2022-04-24] MEDS: dilTIAZem HCL CD 180 MG CAP.ER.24H PO (07:36)
[2022-04-24] MEDS: ARIPiprazole 5 MG TABLET PO (07:36)
[2022-04-24] MEDS: Gabapentin 400 MG CAPSULE PO ×3 (07:36→20:23)
[2022-04-24] MEDS: Venlafaxine HCl ER 150 MG CAP.ER.24H PO (07:36)
[2022-04-24] MEDS: Thiamine HCL 100 MG TABLET PO (07:36)
[2022-04-24] MEDS: Folic Acid 1 MG TABLET PO (07:36)
[2022-04-24] MEDS: Metoprolol Tartrate 100 MG TABLET PO ×2 (07:36→20:17)
[2022-04-24] MEDS: PHENobarbitaL 30 MG TABLET PO (07:37)
[2022-04-24] MEDS: 0.9 % Sodium Chloride Flush 3 ML SYRINGE IVFLUSH ×3 (07:37→20:17)
[2022-04-24] MEDS: Ammonium Lactate 12 % Cream 140 GM TUBE 1 APPL TOPICAL (07:38)
[2022-04-24 08:43] LABS: Anion Gap 10 (12-20); Blood Urea Nitrogen 16 mg/dL (9-16); Calcium 8.2 mg/dL (8.4-10.2); Carbon Dioxide 24 mmol/L (22-29); Chloride 103 mmol/L (96-108); Creatinine Clr Calc Pharmacy 123.5; Estimated Glomerular Filt Rate > 60; Glucose Random 105 mg/dL (60-115); Potassium 4.4 mmol/L (3.3-5.1); Sodium 133 mmol/L (135-145)
--- NOTE | 2022-04-24 09:42 | MHC.CM.PN ---
[facility] [place]PD[facility] (ONLY SNF FACILITIES FOLLOWING)
--- NOTE | 2022-04-24 10:18 | PM.PNNEP ---
Subjective Subjective Date of Service: 04/24/22 Interval history: Events noted c/o edema Physical Exam Vital Signs: Vital Signs: Last Vital Signs Temp 97 F 04/24/22 04:00 Pulse 93 04/24/22 07:30 Resp 16 04/24/22 07:30 BP 103/58 L 04/24/22 07:30 Pulse Ox 100 04/24/22 07:30 O2 Del Method 04/24/22 07:30 BMI result Body Mass Index 42.1 Const: General: cooperative Orientation/consciousness: patient oriented x3 Neck: Neck: Yes supple Resp: Auscultation: clear to auscultation bilaterally Cardio: Jugular venous distension: no JVD Palpation: no palpable S3 GI: Inspection: Yes normal to inspection Palpation (GI): Soft to palpation Auscultation: normal bowel sounds Neuro: General: patient oriented x3 Motor exam (neuro): 5/5 motor strength present throughout Extrem: Right upper extremity: edema Objective Data Labs 04/20/22 07:42 04/24/22 08:17 Labs: Laboratory Results - last 24 hr 04/24/22 08:17 Sodium 133 L Potassium 4.4 Chloride 103 Carbon Dioxide 24 Anion Gap 10 L BUN 16 Creatinine 0.88 Estim Creat Clear Calc 123.5 Estimated GFR > 60 Random Glucose 105 Calcium 8.2 L D Procedures Date of Service Date of Service: 04/24/22 Assessment & Plan Assessment and plan (1) ARIAN (acute kidney injury): Status: Acute (2) Hyponatremia: Status: Acute Plan Renal function at baseline Mild hyponatremia Restrict Free water intake Edema Keep O > I with Loop diuretics if needed Time Spent With Patient Time: Total time managing care of this patient today ____ minutes. Progress Note: Quality Stroke Does the patient have a stroke diagnosis?: No
--- NOTE | 2022-04-24 10:27 | MHC.CM.PN ---
PATIENT TO BE READY FOR DC TUESDAY 04/25. [facility]
[2022-04-24 11:08] VITALS: BP 103/58; PULSE 93; O2SAT 100
[2022-04-24 12:00] VITALS: BP 116/68; PULSE 81; RESP 18; TEMP 36.4; O2SAT 96
--- NOTE | 2022-04-24 14:35 | PM.DS ---
DS: Providers Provider Date of Service: 04/24/22 Date of admission: 04/19/22 06:18 Primary care physician: Bambi Kim MD Consults: 04/19/22 06:07 Consult to Nephrology Stat Consulting Provider: [facility] Reason for consultation: hyponatremia Has provider been notified: No 04/19/22 08:23 Addiction Medicine Routine Consulting Provider: Addiction Covering Reason for consultation: alcohol use Has provider been notified: No DS: Diagnosis Discharge Diagnosis (1) ARIAN (acute kidney injury): Status: Acute (2) Hyponatremia: Status: Acute DS: Summary Hospital Course Hospital Course: Chief Complaint: not taken meds this is a 61 yo M with with pmhx of A fib on Eliquis, history of heart failure with preserved ejection fraction, history of alcohol abuse, history of pulmonary embolism, among others who? presents to the hospital stating that he went to visit his mother today and forgot to take his meds specifically his oxycodone and he started having shakes.? patient is also stating that he has lower extremity edema that is chronic, denies any chest pain, no shortness of breath, no abdominal pain nausea or vomiting, no diarrhea constipation, no urinary symptoms .? Patient reports no increase? water intake and? but he does drink? beer daily, last drink was last night, he does have history of withdrawals but currently denies withdrawing. ? On arrival to the ED patient found to have temp of 98.2 degrees, heart rate of 115 otherwise no acute findings, heart rate is in AFib with RVR, patient received IV metoprolol with improvement in his heart rate. Labs significant for WBC count of 9.9, hemoglobin of 10.3, hematocrit 33.3, sodium of 124 previously normal Chest x-ray shows no acute pulmonary disease ?patient will be admitted for further management Hospital course: Patient presented as above and noted to have ARIAN, hyponatremia and reported has not been taken his opioid and may have exhibited signs opioid withdrawal hyponatremia: Thought to be related to alcohol (beer), sodium has improved and from 124 and stabilized around 130 now and he is assymptomatic. advised to avoid excess water and alcohol. Chronic afib, he presented with RVR due to non compliance withmeds . Was treated with IV metoprolol with now good control of heart rate Echo EF 55-60%- Normal left ventricular size and systolic function. To continue usual metoprolol and cardizem Alcohol withdrawal, treated with phenobarbital and resolved. morbid obesity-encouraged to lose weight. # opioid withdrawal -? resume oxycodone #? hyperlipidemia -? continue statin #? CHF with preserved ejection fraction -? not in exacerbation -? continue? Lasix Time Spent with Patient Time attestation: Total time managing care of this patient today ____ minutes. Discharge coordination time: Greater than 30 minutes Quality: Safe Use of Opioids Does Pt have an Active Cancer Diagnosis on the Problem List?: No Quality: Stroke Does the patient have a stroke diagnosis?: No Physical Exam Vital Signs: Vital Signs: Last Vital Signs Temp 97.5 F 04/24/22 12:00 Pulse 81 04/24/22 12:00 Resp 18 04/24/22 12:00 BP 116/68 04/24/22 12:00 Pulse Ox 96 04/24/22 12:00 O2 Del Method 04/24/22 12:00 BMI result Body Mass Index 42.1 DS: Data Data Completed and Pending Completed studies during hospitalization [Text1]: Procedures Detoxification Services for Substance Abuse Treatment (03/06/21) Insertion of Infusion Device into Right Atrium, Percutaneous Approach (02/08/21) Repair Abdominal Wall, Open Approach (02/08/21) Respiratory Ventilation, 24-96 Consecutive Hours (02/08/21) Labs on day of discharge: Laboratory Results - last 24 hr 04/24/22 08:17 Sodium 133 L Potassium 4.4 Chloride 103 Carbon Dioxide 24 Anion Gap 10 L BUN 16 Creatinine 0.88 Estim Creat Clear Calc 123.5 Estimated GFR > 60 Random Glucose 105 Calcium 8.2 L D Discharge Plan Discharge Anticipated Discharge Date/Time: 04/24/22 14:26 Patient Disposition: Home, Self-Care Discharge Diagnosis: acute hyponatremia Referrals: Bambi Machuca MD [Primary Care Provider] - 1 Week Discharge Medications: Continued naloxone [Narcan] 4 mg/actuation [place],Non-Aerosol 4 mg INTRANASAL Q24H PRN (Reason: opioid depression) Rx Instructions: spray 1 dose into ONE nostril; alternate nostrils w each dose until help arrives oxycodone 5 mg tablet 5 mg PO Q4H PRN (Reason: Pain, Mild (Pain Scale 1-3)) metolazone 2.5 mg Tablet 2.5 mg PO DAILY gabapentin 400 mg Capsule 400 mg PO TID guaifenesin 100 mg/5 mL Liquid 200 mg PO Q4H PRN (Reason: Cough) bisacodyl 10 mg Suppository 10 mg [place] DAILY PRN (Reason: Constipation) ammonium lactate 12 % Cream 1 appl TOPICAL DAILY metoprolol tartrate 100 mg Tablet 100 mg PO BID Qty: 60 0RF Protocol: Hold for SBP/HR < HOLD for SBP < : 90 HOLD for HR < : 60 zolpidem 10 mg Tablet 10 mg PO BEDTIME PRN (Reason: Insomnia) acetaminophen 325 mg Tablet 650 mg PO Q4H PRN (Reason: Fever Or Pain) diltiazem HCl [DILT-XR] 180 mg Capsule,Ext.Rel 24h Degradable 180 mg PO DAILY furosemide 80 mg Tablet 80 mg PO BID PRN (Reason: Edema) spironolactone 50 mg Tablet 100 mg PO BID vilazodone 20 mg Tablet 20 mg PO DAILY Rx Instructions: must administer with a meal/food Eliquis 5 mg tablet 5 mg PO BID 90 Days Qty: 180 3RF aripiprazole [Abilify] 5 mg tablet 5 mg PO DAILY 90 Days Qty: 90 1RF atorvastatin 40 mg tablet 40 mg PO BEDTIME 90 Days Qty: 90 3RF venlafaxine [Effexor XR] 150 mg capsule,extended release 24hr 150 mg PO DAILY 90 Days Qty: 90 3RF Discharge Orders: Discharge Order (Routine); Ordered 04/24/22 Ordered By: Harvey Oro Diet: Advance to usual diet Activity on Discharge: As tolerated Stand Alone Forms: Patient Portal Discharge page Care Plan Goals: recovery from hyponatremia Health Concerns: recovery from hyponatremia Plan of Treatment: hyponatrema alcohol use leg pain renal failure avoid alcohol Assessment: Take all your medication as prescribied, avoid drinking water in excess no more 1500cc a day
--- NOTE | 2022-04-24 14:57 | MHC.CM.PN ---
PATIENT IS DC HOME TODAY - PATIENT HAS BEEN SEEN AMBULATING IN [facility] AND IN ROOM SNF REFERRALS UPDATED TO INFORM THEM.
[2022-04-24 15:17] VITALS: BP 129/62; PULSE 103; RESP 17; TEMP 36.6; O2SAT 99
--- NOTE | 2022-04-24 15:20 | MHC.CM.PN ---
Addendum entered by Josie Gill RN 04/24/22 15:29: T/W ATTEMPTED TO REFER TO [facility] IS CLOSED TO ADMISSIONS ACCORDING TO CAREPORT Original Note: PATIENT REFUSED TO SIGN HIS IMM. PATIENT MADE AWARE THAT T/W IS WRITING A NOTE INDICATING SO ON HIS IMM AND LEFT IT ON THE BEDSIDE TABLE. COPY PLACED IN CHART PATIENT STATES HE REFUSES TO LEAVE. T/W INFORMED PATIENT THAT HE HAS BEEN WALKING AROUND THE ROOM AND HALLS AND CAN DC HOME WITH SERVICES. PATIENT STATES I CAN'T TAKE CARE OF MYSELF WHEN ASKED FOR CLARIFICATION, PATIENT STATES I CAN'T DRESS MYSELF T/W THEN REMINDED PATIENT THAT HE IS DRESSED. PATIENT KNOWS THAT BECAUSE HE LEFT [facility], HE IS NOT ABLE TO [facility] THAT PATIENT IS A FINANCIAL DENIAL.
--- NOTE | 2022-04-24 16:39 | MHC.CM.PN ---
Addendum entered by Josie Gill RN 04/24/22 16:43: REFERRALS UPDATED TO INCLUDE [facility] Original Note: MESSAGE LEFT FOR HCPGEORGE AT NUMBER LISTED IN CONTACT INFORMATION. T/W REQUESTED A CALL BACK TO DISCUSS DC PLAN
[2022-04-24 19:52] VITALS: BP 127/67; PULSE 84; RESP 16; TEMP 36.2; O2SAT 100
[2022-04-24] MEDS: Atorvastatin Calcium 40 MG TABLET PO (20:23)
[2022-04-24] MEDS: Zolpidem Tartrate 5 MG TABLET 10 MG PO (20:52)
[2022-04-25] VITALS (7 sets, daily range): BP systolic 102–132; BP diastolic 58–83; PULSE 60–101; RESP 16–20; TEMP 36.1–36.6; O2SAT 97–99; BMI 42.1
[2022-04-25] MEDS: oxyCODONE HCl Immed Release 5 MG TABLET PO ×6 (00:08→20:23)
[2022-04-25] MEDS: Acetaminophen 325 MG TABLET 650 MG PO ×4 (04:11→16:33)
[2022-04-25] MEDS: Folic Acid 1 MG TABLET PO (08:08)
[2022-04-25] MEDS: Metoprolol Tartrate 100 MG TABLET PO ×2 (08:08→20:22)
[2022-04-25] MEDS: ARIPiprazole 5 MG TABLET PO (08:08)
[2022-04-25] MEDS: Vilazodone HCL 20 MG TABLET PO (08:09)
[2022-04-25] MEDS: dilTIAZem HCL CD 180 MG CAP.ER.24H PO (08:09)
[2022-04-25] MEDS: Apixaban 5 MG TABLET PO ×2 (08:09→20:22)
[2022-04-25] MEDS: Gabapentin 400 MG CAPSULE PO ×3 (08:09→20:22)
[2022-04-25] MEDS: Thiamine HCL 100 MG TABLET PO (08:09)
[2022-04-25] MEDS: Venlafaxine HCl ER 150 MG CAP.ER.24H PO (08:09)
[2022-04-25] MEDS: 0.9 % Sodium Chloride Flush 3 ML SYRINGE IVFLUSH ×3 (08:09→20:23)
[2022-04-25] MEDS: Ammonium Lactate 12 % Cream 140 GM TUBE 1 APPL TOPICAL (08:12)
--- NOTE | 2022-04-25 10:17 | HO.PM.IMPN ---
Subjective Subjective Date of Service: 04/25/22 Interval History: f/u on hyponatremia no new issues, swollen legs Physical Exam Vital Signs: Vital Signs: Last Vital Signs Temp 97.8 F 04/25/22 07:20 Pulse 94 04/25/22 07:20 Resp 20 04/25/22 07:20 BP 122/64 04/25/22 07:20 Pulse Ox 97 04/25/22 07:20 O2 Del Method 04/25/22 07:20 BMI result Body Mass Index 42.1 Const: Other: General: AO X 3, no acute distress Resp: CTA bilateral CVS: S1,S2,RRR GI: +BS, NT, no distention Skin: No rash, swollen legs chronic Neuro: motor grossly intact Psych: appropriate affect Objective Data Active Medications Acetaminophen (Acetaminophen 325 Mg Tablet) 650 mg PO Q6H PRN PRN Reason: Pain, Mild (Pain Scale 1-3) Last Admin: 04/25/22 04:11 Dose: 650 mg Documented By: CLAYTON Acetaminophen (Acetaminophen 325 Mg Tablet) 650 mg PO Q4H PRN PRN Reason: Fever Or Pain Last Admin: 04/25/22 08:11 Dose: 650 mg Documented By: ISAIAH Apixaban (Apixaban 5 Mg Tablet) 5 mg PO BID [facility] Last Admin: 04/25/22 08:09 Dose: 5 mg Documented By: ISAIAH Aripiprazole (Aripiprazole 5 Mg Tablet) 5 mg PO DAILY [facility] Last Admin: 04/25/22 08:08 Dose: 5 mg Documented By: ISAIAH Atorvastatin Calcium (Atorvastatin Calcium 40 Mg Tablet) 40 mg PO BEDTIME [facility] Last Admin: 04/24/22 20:23 Dose: 40 mg Documented By: CLAYTON Bisacodyl (Bisacodyl 10 Mg Supp.Rect) 10 mg [place] DAILY PRN PRN Reason: Constipation Diltiazem HCl (Diltiazem Hcl Cd 180 Mg Cap.Er.24h) 180 mg PO DAILY [facility]; Protocol Last Admin: 04/25/22 08:09 Dose: 180 mg Documented By: ISAIAH Docusate Sodium (Docusate Sodium 100 Mg Capsule) 100 mg PO DAILY PRN PRN Reason: Constipation Folic Acid (Folic Acid 1 Mg Tablet) 1 mg PO DAILY [facility] Last Admin: 04/25/22 08:08 Dose: 1 mg Documented By: ISAIAH Gabapentin (Gabapentin 400 Mg Capsule) 400 mg PO TID [facility] Last Admin: 04/25/22 08:09 Dose: 400 mg Documented By: ISAIAH Guaifenesin (Guaifenesin 100 Mg/5 Ml Liquid) 10 ml PO Q4H PRN PRN Reason: Cough Lactic Acid (Ammonium Lactate 12 % Cream 140 Gm Tube) 1 appl TOPICAL DAILY [facility]; Protocol Last Admin: 04/25/22 08:12 Dose: 1 appl Documented By: ISAIAH Metoprolol Tartrate (Metoprolol Tartrate 100 Mg Tablet) 100 mg PO BID [facility]; Protocol Last Admin: 04/25/22 08:08 Dose: 100 mg Documented By: ISAIAH Naloxone HCl (Naloxone Hcl Nasal 4 Mg [place]) 4 mg NOSTRILALT Q24H PRN PRN Reason: opioid depression Ondansetron HCl (Ondansetron Hcl 4 Mg/2 Ml Vial) 4 mg IVPUSH Q8H PRN PRN Reason: Nausea and Vomiting Oxycodone HCl (Oxycodone Hcl Immed Release 5 Mg Tablet) 5 mg PO Q4H PRN PRN Reason: Pain, Severe (Pain Scale 7-10) Last Admin: 04/25/22 08:09 Dose: 5 mg Documented By: ISAIAH Pharmacy Consult (Consult Rx Perform Med Rec) 1 each MISCELLANE ONCE PRN PRN Reason: Consult order Pharmacy Consult (Consult Rx Etoh Phenob Po Only) 1 each MISCELLANE ONCE PRN; Protocol PRN Reason: Consult order Sodium Chloride (0.9 % Sodium Chloride Flush 3 Ml Syringe) 3 ml [facility] Last Admin: 04/25/22 08:09 Dose: 3 ml Documented By: ISAIAH Spironolactone (Spironolactone 25 Mg Tablet) 100 mg PO BID [facility]; Protocol Last Admin: 04/19/22 20:51 Dose: 100 mg Documented By: SEE-SUNSHINE Thiamine HCl (Thiamine Hcl 100 Mg Tablet) 100 mg PO DAILY [facility] Last Admin: 04/25/22 08:09 Dose: 100 mg Documented By: ISAIAH Venlafaxine HCl (Venlafaxine Hcl Er 150 Mg Cap.Er.24h) 150 mg PO DAILY [facility] Last Admin: 04/25/22 08:09 Dose: 150 mg Documented By: ISAIAH Vilazodone HCl (Vilazodone Hcl 20 Mg Tablet) 20 mg PO DAILY [facility] Last Admin: 04/25/22 08:09 Dose: 20 mg Documented By: ISAIAH Labs 04/20/22 07:42 04/24/22 08:17 Assessment and Plan (1) ARIAN (acute kidney injury): Status: Acute (2) Atrial fibrillation with RVR: Status: Acute Plan 61-year-old male with past medical history of AFib, CHF, alcohol abuse presents to the hospital with complaints of missing his opioid meds and feeling? Withdrawal symptoms. hyponatremia d/t beer potomania, resolved, to follow fluid restriction Chronic afib, rate controlled on metoprolol and cardizem, continue eliquis ARIAN, pre renal, resolved. alcohol withdrawal, assymptomatic continue? po phenobarbital taper,moniter ciwa,thiamine,folic acid morbid obesity-encouraged to lose weight. # chronic opioid use l -? continue oxycodone #? hyperlipidemia -? continue statin #?chronic CHF with preserved ejection fraction -? not in exacerbation -? continue? Lasix ?DVT prophylaxis: Eliquis ongoing hospitlisation need:snf placement Time Spent With Patient Time: Total time managing care of this patient today ____ minutes. Quality Stroke Does the patient have a stroke diagnosis?: No VTE Prior VTE?: No VTE Risk Level:: Medical - moderate - high VTE Device Contraindication: Treatment Not Indicated VTE Drug Contraindication: N/A - Med Ordered
--- NOTE | 2022-04-25 10:18 | PM.PNNEP ---
Subjective Subjective Date of Service: 04/26/22 Interval history: Events noted c/o edema Physical Exam Vital Signs: Vital Signs: Last Vital Signs Temp 97.8 F 04/25/22 07:20 Pulse 94 04/25/22 07:20 Resp 20 04/25/22 07:20 BP 122/64 04/25/22 07:20 Pulse Ox 97 04/25/22 07:20 O2 Del Method 04/25/22 07:20 BMI result Body Mass Index 42.1 Const: General: cooperative Orientation/consciousness: patient oriented x3 Neck: Neck: Yes supple Resp: Auscultation: clear to auscultation bilaterally Cardio: Jugular venous distension: no JVD Palpation: no palpable S3 GI: Inspection: Yes normal to inspection Palpation (GI): Soft to palpation Auscultation: normal bowel sounds Neuro: General: patient oriented x3 Motor exam (neuro): 5/5 motor strength present throughout Extrem: Right upper extremity: edema Objective Data Labs 04/20/22 07:42 04/24/22 08:17 Procedures Date of Service Date of Service: 04/25/22 Assessment & Plan Assessment and plan (1) ARIAN (acute kidney injury): Status: Acute (2) Hyponatremia: Status: Acute Plan Renal function at baseline Mild hyponatremia Restrict Free water intake Edema Keep O > I with Loop diuretics if needed Time Spent With Patient Time: Total time managing care of this patient today ____ minutes. Progress Note: Quality Stroke Does the patient have a stroke diagnosis?: No
--- NOTE | 2022-04-25 11:08 | MHC.CM.PN ---
CALL FROM [employer]OCIATE. LIAISON REPORT THAT PATIENT SEEMS LIKE LTC CANDIDATE AND NOT MUCH FOR REHAB [facility] HAS NO LTC AVAILABLE FOR PATIENT TO TRANSFER INTO
--- NOTE | 2022-04-25 11:26 | MHC.CM.PN ---
CALL TO RACHEL OF [facility] [phone] (PATIENT AGREEABLE TO THIS PROCESS) RACHEL DOES NOT HAVE ANY BED FOR PATIENT IF ONE OPENS IN THE NEXT FEW DAYS, RACHEL REPORTS THAT HE WILL CALL THIS IMPROVEMENT MANAGER BACK. CALL TO NESSA PARSONS @ [phone]. LINE CONTINUES TO BE BUSY CALL TO HEIKE AT [facility] ([phone] [facility] HAS A BED AND IS ASKING FOR CLINICALS AND THE APPLICATION FOR ADMISSION. CASE MANAGEMENT TO WORK ON AND UPDATE IN A NOTE
--- NOTE | 2022-04-25 13:42 | MHC.CM.PN ---
COMPLETED REST [facility] APPLICATION FAXED TO ATTENTION; HEIKE @ [phone] ([facility])
[2022-04-25] MEDS: Atorvastatin Calcium 40 MG TABLET PO (20:22)
[2022-04-25] MEDS: Zolpidem Tartrate 5 MG TABLET 10 MG PO (20:52)
[2022-04-26] MEDS: oxyCODONE HCl Immed Release 5 MG TABLET PO ×6 (01:41→22:33)
[2022-04-26 04:00] VITALS: BP 110/54; PULSE 94; RESP 16; TEMP 36; O2SAT 97
[2022-04-26 06:00] VITALS: BMI 42.2
[2022-04-26 07:32] VITALS: BP 132/83; PULSE 103; RESP 18; TEMP 36.4; O2SAT 97
--- NOTE | 2022-04-26 08:50 | MHC.CM.PN ---
CALL TO HEIKE AT [facility] [phone] FAXED APPLICATION WAS RECEIVED AND WILL BE REVIEWED TODAY HEIKE WILL REPORTEDLY CALL THIS HELP AID BACK THIS AFTERNOON
--- NOTE | 2022-04-26 09:02 | P.PNIM_ITS ---
Subjective Subjective Date of Service: 04/26/22 Interval History: f/u on hyponatremia no new issues, seen walking in abdi Physical Exam 2 Vital Signs: Vital Signs: Last Vital Signs Temp 97.5 F 04/26/22 07:32 Pulse 103 H 04/26/22 07:32 Resp 18 04/26/22 07:32 BP 132/83 04/26/22 07:32 Pulse Ox 97 04/26/22 07:32 O2 Del Method 04/26/22 07:32 BMI result Body Mass Index 42.2 Const: Other: General: AO X 3, no acute distress Resp: CTA bilateral CVS: S1,S2,RRR GI: +BS, NT, no distention Skin: No rash, swollen legs chronic Neuro: motor grossly intact Psych: appropriate affect Objective Data Active Medications Acetaminophen (Acetaminophen 325 Mg Tablet) 650 mg PO Q6H PRN PRN Reason: Pain, Mild (Pain Scale 1-3) Last Admin: 04/25/22 12:14 Dose: 650 mg Documented By: ISAIAH Acetaminophen (Acetaminophen 325 Mg Tablet) 650 mg PO Q4H PRN PRN Reason: Fever Or Pain Last Admin: 04/25/22 16:33 Dose: 650 mg Documented By: ISAIAH Apixaban (Apixaban 5 Mg Tablet) 5 mg PO BID [facility] OF [facility] Last Admin: 04/25/22 20:22 Dose: 5 mg Documented By: HUSEYIN Aripiprazole (Aripiprazole 5 Mg Tablet) 5 mg PO DAILY ON LICENSE OF [facility] Last Admin: 04/25/22 08:08 Dose: 5 mg Documented By: ISAIAH Atorvastatin Calcium (Atorvastatin Calcium 40 Mg Tablet) 40 mg PO BEDTIME ON [facility] OF [facility] Last Admin: 04/25/22 20:22 Dose: 40 mg Documented By: HUSEYIN Bisacodyl (Bisacodyl 10 Mg Supp.Rect) 10 mg [place] DAILY PRN PRN Reason: Constipation Diltiazem HCl (Diltiazem Hcl Cd 180 Mg Cap.Er.24h) 180 mg PO DAILY [facility]; Protocol Last Admin: 04/25/22 08:09 Dose: 180 mg Documented By: ISAIAH Docusate Sodium (Docusate Sodium 100 Mg Capsule) 100 mg PO DAILY PRN PRN Reason: Constipation Folic Acid (Folic Acid 1 Mg Tablet) 1 mg PO DAILY [facility] Last Admin: 04/25/22 08:08 Dose: 1 mg Documented By: ISAIAH Gabapentin (Gabapentin 400 Mg Capsule) 400 mg PO TID ON LICENSE OF [facility] Last Admin: 04/25/22 20:22 Dose: 400 mg Documented By: HUSEYIN Guaifenesin (Guaifenesin 100 Mg/5 Ml Liquid) 10 ml PO Q4H PRN PRN Reason: Cough Lactic Acid (Ammonium Lactate 12 % Cream 140 Gm Tube) 1 appl TOPICAL DAILY ON [facility]; Protocol Last Admin: 04/25/22 08:12 Dose: 1 appl Documented By: ISAIAH Metoprolol Tartrate (Metoprolol Tartrate 100 Mg Tablet) 100 mg PO BID ON LICENSE OF [facility]; Protocol Last Admin: 04/25/22 20:22 Dose: 100 mg Documented By: HUSEYIN Comments: BP= 132/67 H 101 Naloxone HCl (Naloxone Hcl Nasal 4 Mg [place]) 4 mg NOSTRILALT Q24H PRN PRN Reason: opioid depression Ondansetron HCl (Ondansetron Hcl 4 Mg/2 Ml Vial) 4 mg IVPUSH Q8H PRN PRN Reason: Nausea and Vomiting Oxycodone HCl (Oxycodone Hcl Immed Release 5 Mg Tablet) 5 mg PO Q4H PRN PRN Reason: Pain, Severe (Pain Scale 7-10) Last Admin: 04/26/22 05:45 Dose: 5 mg Documented By: HUSEYIN Pharmacy Consult (Consult Rx Perform Med Rec) 1 each MISCELLANE ONCE PRN PRN Reason: Consult order Pharmacy Consult (Consult Rx Etoh Phenob Po Only) 1 each MISCELLANE ONCE PRN; Protocol PRN Reason: Consult order Sodium Chloride (0.9 % Sodium Chloride Flush 3 Ml Syringe) 3 ml IVFLUSH QSHIFT ON LICENSE OF [facility] Last Admin: 04/25/22 20:23 Dose: 3 ml Documented By: HUSEYIN Spironolactone (Spironolactone 25 Mg Tablet) 100 mg PO BID ON LICENSE OF [facility]; Protocol Last Admin: 04/19/22 20:51 Dose: 100 mg Documented By: SEE-SUNSHINE Thiamine HCl (Thiamine Hcl 100 Mg Tablet) 100 mg PO DAILY ON [facility] OF [facility] Last Admin: 04/25/22 08:09 Dose: 100 mg Documented By: ISAIAH Venlafaxine HCl (Venlafaxine Hcl Er 150 Mg Cap.Er.24h) 150 mg PO DAILY [facility] Last Admin: 04/25/22 08:09 Dose: 150 mg Documented By: ISAIAH Vilazodone HCl (Vilazodone Hcl 20 Mg Tablet) 20 mg PO DAILY [facility] Last Admin: 04/25/22 08:09 Dose: 20 mg Documented By: ISAIAH Zolpidem Tartrate (Zolpidem Tartrate 5 Mg Tablet) 10 mg PO BEDTIME PRN PRN Reason: Insomnia Last Admin: 04/25/22 20:52 Dose: 10 mg Documented By: HUSEYIN Falcon 04/20/22 07:42 04/24/22 08:17 Assessment and Plan (1) ARIAN (acute kidney injury): Status: Acute (2) Atrial fibrillation with RVR: Status: Acute Plan 61-year-old male with past medical history of AFib, CHF, alcohol abuse presents to the hospital with complaints of missing his opioid meds and feeling? Withdrawal symptoms. hyponatremia d/t beer potomania, resolved, to follow fluid restriction check lab tomorrow Chronic afib, rate controlled on metoprolol and cardizem, continue eliquis ARIAN, pre renal, resolved. alcohol withdrawal, assymptomatic continue? po phenobarbital taper,moniter ciwa,thiamine,folic acid morbid obesity-encouraged to lose weight. # chronic opioid use l -? continue oxycodone #? hyperlipidemia -? continue statin #?chronic CHF with preserved ejection fraction -? not in exacerbation -? continue? Lasix ?DVT prophylaxis: Eliquis ongoing hospitlisation need:snf placement Time Spent With Patient Time: Total time managing care of this patient today ____ minutes. Quality Stroke Does the patient have a stroke diagnosis?: No VTE Prior VTE?: No VTE Risk Level:: Medical - moderate - high VTE Device Contraindication: Treatment Not Indicated VTE Drug Contraindication: N/A - Med Ordered
[2022-04-26] MEDS: Metoprolol Tartrate 100 MG TABLET PO ×2 (09:54→20:01)
[2022-04-26] MEDS: Thiamine HCL 100 MG TABLET PO (09:54)
[2022-04-26] MEDS: Gabapentin 400 MG CAPSULE PO ×3 (09:54→20:01)
[2022-04-26] MEDS: Acetaminophen 325 MG TABLET 650 MG PO ×3 (09:54→18:29)
[2022-04-26] MEDS: Ammonium Lactate 12 % Cream 140 GM TUBE 1 APPL TOPICAL (09:55)
[2022-04-26] MEDS: Venlafaxine HCl ER 150 MG CAP.ER.24H PO (09:55)
[2022-04-26] MEDS: Vilazodone HCL 20 MG TABLET PO (09:55)
[2022-04-26] MEDS: Apixaban 5 MG TABLET PO ×2 (09:55→20:01)
[2022-04-26] MEDS: 0.9 % Sodium Chloride Flush 3 ML SYRINGE IVFLUSH ×3 (09:55→20:01)
[2022-04-26] MEDS: dilTIAZem HCL CD 180 MG CAP.ER.24H PO (09:55)
[2022-04-26] MEDS: ARIPiprazole 5 MG TABLET PO (09:55)
[2022-04-26] MEDS: Folic Acid 1 MG TABLET PO (09:55)
[2022-04-26 11:44] VITALS: BP 125/86; PULSE 97; RESP 17; TEMP 36.3; O2SAT 97
--- NOTE | 2022-04-26 13:50 | PM.PNNEP ---
Subjective Subjective Date of Service: 05/14/22 Interval history: Events noted seen walking in abdi Physical Exam Vital Signs: Vital Signs: Last Vital Signs Temp 97.4 F 04/26/22 11:44 Pulse 97 04/26/22 11:44 Resp 17 04/26/22 11:44 BP 125/86 04/26/22 11:44 Pulse Ox 97 04/26/22 11:44 O2 Del Method 04/26/22 11:44 BMI result Body Mass Index 42.2 Const: General: cooperative Orientation/consciousness: patient oriented x3 Neck: Neck: Yes supple Resp: Auscultation: clear to auscultation bilaterally Cardio: Jugular venous distension: no JVD Palpation: no palpable S3 GI: Inspection: Yes normal to inspection Palpation (GI): Soft to palpation Auscultation: normal bowel sounds Neuro: General: patient oriented x3 Motor exam (neuro): 5/5 motor strength present throughout Extrem: Right upper extremity: edema Objective Data Labs 04/20/22 07:42 04/24/22 08:17 Procedures Date of Service Date of Service: 04/26/22 Assessment & Plan Assessment and plan (1) ARIAN (acute kidney injury): Status: Resolved (2) Hyponatremia: Status: Deleted Plan Renal function at baseline Mild hyponatremia Restrict Free water intake Edema Keep O > I with Loop diuretics if needed Time Spent With Patient Time: Total time managing care of this patient today ____ minutes. Progress Note: Quality Stroke Does the patient have a stroke diagnosis?: No
[2022-04-26 15:41] VITALS: BP 109/66; PULSE 85; RESP 18; TEMP 36.2; O2SAT 98
[2022-04-26 19:55] VITALS: BP 132/78; PULSE 92; RESP 18; TEMP 36.4; O2SAT 98
[2022-04-26] MEDS: Zolpidem Tartrate 5 MG TABLET 10 MG PO (20:01)
[2022-04-26] MEDS: Atorvastatin Calcium 40 MG TABLET PO (20:01)
[2022-04-26 23:04] VITALS: BP 115/64; PULSE 88; RESP 18; TEMP 36.5; O2SAT 97
[2022-04-27] MEDS: oxyCODONE HCl Immed Release 5 MG TABLET PO ×4 (02:55→15:32)
[2022-04-27 03:16] VITALS: BP 127/76; PULSE 86; RESP 18; TEMP 36.4; O2SAT 97
[2022-04-27 05:11] VITALS: BMI 42.1
[2022-04-27 07:48] VITALS: BP 110/77; PULSE 92; RESP 18; TEMP 36.9; O2SAT 97
--- NOTE | 2022-04-27 09:22 | MHC.CM.PN ---
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 Addendum entered by Valencia Schaeffer 04/27/22 12:10: PT CURRENTLY COMPLETING [facility] APPLICATION [facility] FROM [facility] [employer] [facility] IF SHE RECEIVES KATHY THIS AFTERNOON SHE CAN SCHEDULE AN ON SITE VISIT FOR SATURDAY Addendum entered by Valencia Schaeffer 04/27/22 11:53: CM RECEIVED RETURN CALLS FROM NESSA PARSONS ([place]) AND [facility] ([facility], BOTH HAVE MALE BEDS AVAILABLE AND WILL BE SENDING T/W THE APPLICATIONS KATHY WILL BE COMPLETED AND RETURNED TODAY Original Note: CM ATTEMPTED TO CONTACT HEIKE ([phone]) AT [facility] ' HEIKE IS OFF UNTIL SATURDAY MESSAGE LEFT CM HAS LEFT MESSAGES FOR [facility], NESSA PARSONS, AND [facility] REQUESTING RETURN CALLS FOR BED AVAILABILITY
--- NOTE | 2022-04-27 09:24 | HO.PM.IMPN ---
Subjective Subjective Date of Service: 04/27/22 Interval History: seen in f/u for hyponatremia interval history no new issues doesn't have a place Review of Systems Tremor improved, denies any chest pain or shortness of breath or abdominal pain Heart rate also acceptable.? Asymptomatic Physical Exam Vital Signs: Vital Signs: Last Vital Signs Temp 98.5 F 04/27/22 07:48 Pulse 92 04/27/22 07:48 Resp 18 04/27/22 07:48 BP 110/77 04/27/22 07:48 Pulse Ox 97 04/27/22 07:48 O2 Del Method 04/27/22 07:48 BMI result Body Mass Index 42.1 Const: Other: General: AO X 3, no acute distress Resp: CTA bilateral CVS: S1,S2,RRR GI: +BS, NT, no distention Skin: No rash, swollen legs chronic Neuro: motor grossly intact Psych: appropriate affect Objective Data Active Medications Acetaminophen (Acetaminophen 325 Mg Tablet) 650 mg PO Q6H PRN PRN Reason: Pain, Mild (Pain Scale 1-3) Last Admin: 04/25/22 12:14 Dose: 650 mg Documented By: ISAIAH Acetaminophen (Acetaminophen 325 Mg Tablet) 650 mg PO Q4H PRN PRN Reason: Fever Or Pain Last Admin: 04/26/22 18:29 Dose: 650 mg Documented By: ISAIAH Apixaban (Apixaban 5 Mg Tablet) 5 mg PO BID [facility] Last Admin: 04/26/22 20:01 Dose: 5 mg Documented By: HUSEYIN Aripiprazole (Aripiprazole 5 Mg Tablet) 5 mg PO DAILY [facility] Last Admin: 04/26/22 09:55 Dose: 5 mg Documented By: ISAIAH Atorvastatin Calcium (Atorvastatin Calcium 40 Mg Tablet) 40 mg PO BEDTIME [facility] Last Admin: 04/26/22 20:01 Dose: 40 mg Documented By: CASTBERRY Bisacodyl (Bisacodyl 10 Mg Supp.Rect) 10 mg [place] DAILY PRN PRN Reason: Constipation Diltiazem HCl (Diltiazem Hcl Cd 180 Mg Cap.Er.24h) 180 mg PO DAILY [facility]; Protocol Last Admin: 04/26/22 09:55 Dose: 180 mg Documented By: ISAIAH Docusate Sodium (Docusate Sodium 100 Mg Capsule) 100 mg PO DAILY PRN PRN Reason: Constipation Folic Acid (Folic Acid 1 Mg Tablet) 1 mg PO DAILY [facility] Last Admin: 04/26/22 09:55 Dose: 1 mg Documented By: ISAIAH Gabapentin (Gabapentin 400 Mg Capsule) 400 mg PO TID [facility] Last Admin: 04/26/22 20:01 Dose: 400 mg Documented By: HUSEYIN Guaifenesin (Guaifenesin 100 Mg/5 Ml Liquid) 10 ml PO Q4H PRN PRN Reason: Cough Lactic Acid (Ammonium Lactate 12 % Cream 140 Gm Tube) 1 appl TOPICAL DAILY [facility]; Protocol Last Admin: 04/26/22 09:55 Dose: 1 appl Documented By: ISAIAH Metoprolol Tartrate (Metoprolol Tartrate 100 Mg Tablet) 100 mg PO BID [facility]; Protocol Last Admin: 04/26/22 20:01 Dose: 100 mg Documented By: HUSEYIN Comments: RT=956/78 H 92 Naloxone HCl (Naloxone Hcl Nasal 4 Mg [place]) 4 mg NOSTRILALT Q24H PRN PRN Reason: opioid depression Ondansetron HCl (Ondansetron Hcl 4 Mg/2 Ml Vial) 4 mg IVPUSH Q8H PRN PRN Reason: Nausea and Vomiting Oxycodone HCl (Oxycodone Hcl Immed Release 5 Mg Tablet) 5 mg PO Q4H PRN PRN Reason: Pain, Severe (Pain Scale 7-10) Last Admin: 04/27/22 07:03 Dose: 5 mg Documented By: HUSEYIN Pharmacy Consult (Consult Rx Perform Med Rec) 1 each MISCELLANE ONCE PRN PRN Reason: Consult order Pharmacy Consult (Consult Rx Etoh Phenob Po Only) 1 each MISCELLANE ONCE PRN; Protocol PRN Reason: Consult order Sodium Chloride (0.9 % Sodium Chloride Flush 3 Ml Syringe) 3 ml IVFLUSH QSHIFT [facility] Last Admin: 04/26/22 20:01 Dose: 3 ml Documented By: HUSEYIN Spironolactone (Spironolactone 25 Mg Tablet) 100 mg PO BID [facility]; Protocol Last Admin: 04/19/22 20:51 Dose: 100 mg Documented By: JONATHAN Thiamine HCl (Thiamine Hcl 100 Mg Tablet) 100 mg PO DAILY [facility] Last Admin: 04/26/22 09:54 Dose: 100 mg Documented By: ISAIAH Venlafaxine HCl (Venlafaxine Hcl Er 150 Mg Cap.Er.24h) 150 mg PO DAILY [facility] Last Admin: 04/26/22 09:55 Dose: 150 mg Documented By: ISAIAH Vilazodone HCl (Vilazodone Hcl 20 Mg Tablet) 20 mg PO DAILY [facility] Last Admin: 04/26/22 09:55 Dose: 20 mg Documented By: ISAIAH Zolpidem Tartrate (Zolpidem Tartrate 5 Mg Tablet) 10 mg PO BEDTIME PRN PRN Reason: Insomnia Last Admin: 04/26/22 20:01 Dose: 10 mg Documented By: CASTILM Labs 04/20/22 07:42 04/24/22 08:17 Assessment and Plan (1) ARIAN (acute kidney injury): Status: Acute (2) Atrial fibrillation with RVR: Status: Acute Plan 61-year-old male with past medical history of AFib, CHF, alcohol abuse presents to the hospital with complaints of missing his opioid meds and feeling? Withdrawal symptoms. hyponatremia d/t beer potomania, resolved, to follow fluid restriction check lab today Chronic afib, rate controlled on metoprolol and cardizem, continue eliquis ARIAN, pre renal, resolved. #alcohol withdrawal, assymptomatic continue? po phenobarbital taper,moniter ciwa,thiamine,folic acid # morbid obesity-encouraged to lose weight. # chronic opioid use l -? continue oxycodone #? hyperlipidemia -? continue statin #?chronic CHF with preserved ejection fraction -? not in exacerbation -? continue? Lasix ?DVT prophylaxis: Eliquis ongoing hospitlisation need:snf placement Time Spent With Patient Time: Total time managing care of this patient today ____ minutes. Quality Stroke Does the patient have a stroke diagnosis?: No VTE Prior VTE?: No VTE Risk Level:: Medical - moderate - high VTE Device Contraindication: Treatment Not Indicated VTE Drug Contraindication: N/A - Med Ordered
[2022-04-27] MEDS: ARIPiprazole 5 MG TABLET PO (09:44)
[2022-04-27] MEDS: dilTIAZem HCL CD 180 MG CAP.ER.24H PO (09:44)
[2022-04-27] MEDS: Thiamine HCL 100 MG TABLET PO (09:44)
[2022-04-27] MEDS: Folic Acid 1 MG TABLET PO (09:44)
[2022-04-27] MEDS: Gabapentin 400 MG CAPSULE PO ×2 (09:44→15:32)
[2022-04-27] MEDS: Apixaban 5 MG TABLET PO (09:44)
[2022-04-27] MEDS: Metoprolol Tartrate 100 MG TABLET PO (09:44)
[2022-04-27] MEDS: Vilazodone HCL 20 MG TABLET PO (09:44)
[2022-04-27] MEDS: 0.9 % Sodium Chloride Flush 3 ML SYRINGE IVFLUSH (09:45)
[2022-04-27] MEDS: Ammonium Lactate 12 % Cream 140 GM TUBE 1 APPL TOPICAL (09:45)
[2022-04-27] MEDS: Venlafaxine HCl ER 150 MG CAP.ER.24H PO (09:45)
[2022-04-27 10:00] LABS: Anion Gap 6 (12-20); Blood Urea Nitrogen 18 mg/dL (9-16); Calcium 8.1 mg/dL (8.4-10.2); Carbon Dioxide 28 mmol/L (22-29); Chloride 105 mmol/L (96-108); Creatinine Clr Calc Pharmacy 115.5; Estimated Glomerular Filt Rate > 60; Glucose Random 104 mg/dL (60-115); Potassium 4.6 mmol/L (3.3-5.1); Sodium 134 mmol/L (135-145)
--- NOTE | 2022-04-27 11:49 | P.PNNP_ITS ---
Subjective Subjective Date of Service: 04/27/22 Interval history: seen in f/u for hyponatremia interval history no new issues Physical Exam Vital Signs: Vital Signs: Last Vital Signs Temp 98.5 F 04/27/22 07:48 Pulse 92 04/27/22 07:48 Resp 18 04/27/22 07:48 BP 110/77 04/27/22 07:48 Pulse Ox 97 04/27/22 07:48 O2 Del Method 04/27/22 07:48 BMI result Body Mass Index 42.1 Const: Other: General: AO X 3, no acute distress Resp: CTA bilateral CVS: S1,S2,RRR GI: +BS, NT, no distention Skin: No rash, swollen legs chronic Neuro: motor grossly intact Psych: appropriate affect Objective Data Labs 04/20/22 07:42 04/27/22 09:38 Labs: Laboratory Results - last 24 hr 04/27/22 09:38 Sodium 134 L Potassium 4.6 Chloride 105 Carbon Dioxide 28 Anion Gap 6 L BUN 18 H Creatinine 0.94 Estim Creat Clear Calc 115.5 Estimated GFR > 60 Random Glucose 104 Calcium 8.1 L Procedures Date of Service Date of Service: 04/27/22 Assessment & Plan Assessment and plan (1) ARIAN (acute kidney injury): Status: Acute (2) Hyponatremia: Status: Acute Plan Renal function at baseline Mild hyponatremia Restrict Free water intake Edema Keep O > I with Loop diuretics if needed For [facility] per pt today Time Spent With Patient Time: Total time managing care of this patient today ____ minutes. Progress Note: Quality Stroke Does the patient have a stroke diagnosis?: No
[2022-04-27 11:51] VITALS: BP 123/78; PULSE 90; RESP 18; TEMP 36.2; O2SAT 97
--- NOTE | 2022-04-27 14:02 | PM.DS ---
DS: Providers Provider Date of Service: 04/27/22 Date of admission: 04/19/22 06:18 Primary care physician: Bambi Kim MD Consults: 04/19/22 06:07 Consult to Nephrology Stat Consulting Provider: [facility] Reason for consultation: hyponatremia Has provider been notified: No 04/19/22 08:23 Addiction Medicine Routine Consulting Provider: Addiction Covering Reason for consultation: alcohol use Has provider been notified: No DS: Diagnosis Discharge Diagnosis (1) ARIAN (acute kidney injury): Status: Acute (2) Hyponatremia: Status: Acute DS: Summary Hospital Course Hospital Course: Chief Complaint: not taken meds this is a 61 yo M with with pmhx of A fib on Eliquis, history of heart failure with preserved ejection fraction, history of alcohol abuse, history of pulmonary embolism, among others who? presents to the hospital stating that he went to visit his mother today and forgot to take his meds specifically his oxycodone and he started having shakes.? patient is also stating that he has lower extremity edema that is chronic, denies any chest pain, no shortness of breath, no abdominal pain nausea or vomiting, no diarrhea constipation, no urinary symptoms .? Patient reports no increase? water intake and? but he does drink? beer daily, last drink was last night, he does have history of withdrawals but currently denies withdrawing. ? On arrival to the ED patient found to have temp of 98.2 degrees, heart rate of 115 otherwise no acute findings, heart rate is in AFib with RVR, patient received IV metoprolol with improvement in his heart rate. Labs significant for WBC count of 9.9, hemoglobin of 10.3, hematocrit 33.3, sodium of 124 previously normal Chest x-ray shows no acute pulmonary disease ?patient will be admitted for further management Hospital course: Patient presented as above and noted to have ARIAN, hyponatremia and reported has not been taken his opioid and may have exhibited signs opioid withdrawal #hyponatremia: Thought to be related to alcohol (beer), sodium has improved and from 124 and stabilized and now 134 and he is assymptomatic. advised to avoid excess water and alcohol. #Chronic afib, he presented with RVR due to non compliance with meds . Was treated with IV metoprolol with now good control of heart rate < 100 Echo EF 55-60%- Normal left ventricular size and systolic function. To continue usual metoprolol and cardizem and Apixiban for stroke prevention #Alcohol withdrawal, treated with phenobarbital and resolved. #morbid obesity-encouraged to lose weight. # opioid withdrawal -? resume oxycodone #? hyperlipidemia -? continue statin #? CHF with preserved ejection fraction -? not in exacerbation -? continue? Lasix Time Spent with Patient Time attestation: Total time managing care of this patient today ____ minutes. Discharge coordination time: Greater than 30 minutes Quality: Safe Use of Opioids Does Pt have an Active Cancer Diagnosis on the Problem List?: No Quality: Stroke Does the patient have a stroke diagnosis?: No Physical Exam Vital Signs: Vital Signs: Last Vital Signs Temp 97.1 F 04/27/22 11:51 Pulse 90 04/27/22 11:51 Resp 18 04/27/22 11:51 BP 123/78 04/27/22 11:51 Pulse Ox 97 04/27/22 11:51 O2 Del Method 04/27/22 11:51 BMI result Body Mass Index 42.1 DS: Data Data Completed and Pending Completed studies during hospitalization [Text1]: Procedures Detoxification Services for Substance Abuse Treatment (03/06/21) Insertion of Infusion Device into Right Atrium, Percutaneous Approach (02/08/21) Repair Abdominal Wall, Open Approach (02/08/21) Respiratory Ventilation, 24-96 Consecutive Hours (02/08/21) Labs on day of discharge: Laboratory Results - last 24 hr 04/27/22 09:38 Sodium 134 L Potassium 4.6 Chloride 105 Carbon Dioxide 28 Anion Gap 6 L BUN 18 H Creatinine 0.94 Estim Creat Clear Calc 115.5 Estimated GFR > 60 Random Glucose 104 Calcium 8.1 L Discharge Plan Discharge Anticipated Discharge Date/Time: 04/24/22 14:26 Patient Disposition: Home, Self-Care Discharge Diagnosis: acute hyponatremia Referrals: Bambi Machuca MD [Primary Care Provider] - 1 Week Discharge Medications: Continued naloxone [Narcan] 4 mg/actuation [place],Non-Aerosol 4 mg INTRANASAL Q24H PRN (Reason: opioid depression) Rx Instructions: spray 1 dose into ONE nostril; alternate nostrils w each dose until help arrives oxycodone 5 mg tablet 5 mg PO Q4H PRN (Reason: Pain, Mild (Pain Scale 1-3)) metolazone 2.5 mg Tablet 2.5 mg PO DAILY gabapentin 400 mg Capsule 400 mg PO TID guaifenesin 100 mg/5 mL Liquid 200 mg PO Q4H PRN (Reason: Cough) bisacodyl 10 mg Suppository 10 mg [place] DAILY PRN (Reason: Constipation) ammonium lactate 12 % Cream 1 appl TOPICAL DAILY metoprolol tartrate 100 mg Tablet 100 mg PO BID Qty: 60 0RF Protocol: Hold for SBP/HR < HOLD for SBP < : 90 HOLD for HR < : 60 zolpidem 10 mg Tablet 10 mg PO BEDTIME PRN (Reason: Insomnia) acetaminophen 325 mg Tablet 650 mg PO Q4H PRN (Reason: Fever Or Pain) diltiazem HCl [DILT-XR] 180 mg Capsule,Ext.Rel 24h Degradable 180 mg PO DAILY furosemide 80 mg Tablet 80 mg PO BID PRN (Reason: Edema) spironolactone 50 mg Tablet 100 mg PO BID vilazodone 20 mg Tablet 20 mg PO DAILY Rx Instructions: must administer with a meal/food Eliquis 5 mg tablet 5 mg PO BID 90 Days Qty: 180 3RF aripiprazole [Abilify] 5 mg tablet 5 mg PO DAILY 90 Days Qty: 90 1RF atorvastatin 40 mg tablet 40 mg PO BEDTIME 90 Days Qty: 90 3RF venlafaxine [Effexor XR] 150 mg capsule,extended release 24hr 150 mg PO DAILY 90 Days Qty: 90 3RF Discharge Orders: Discharge Order (Routine); Ordered 04/24/22 Ordered By: Harvey Oro Diet: Advance to usual diet Activity on Discharge: As tolerated Stand Alone Forms: Patient Portal Discharge page Care Plan Goals: recovery from hyponatremia Health Concerns: recovery from hyponatremia Plan of Treatment: hyponatrema alcohol use leg pain renal failure avoid alcohol Assessment: Take all your medication as prescribied, avoid drinking water in excess no more 1500cc a day
[2022-04-27 15:13] VITALS: BP 127/86; PULSE 84; RESP 18; TEMP 36.5; O2SAT 97
== END 2022-04-27 18:31 | disposition home or self-care (01) | DRG 641 ==
LOC: HO.ED 05:34 → HO.EDOVER 06:25 → HO.S3 04-20 14:01
PROVIDERS: Internal Medicine; Admitting Provider Internal Medicine; Emergency Provider Emergency Medicine; PCP Internal Medicine; Visit Provider Internal Medicine
DX: E87.1 Hypo-osmolality and hyponatremia (principal); I48.20 Chronic atrial fibrillation, unspecified; N17.9 Acute kidney failure, unspecified; I50.32 Chronic diastolic (congestive) heart failure; Z68.41 Body mass index [BMI] 40.0-44.9, adult; F10.139 Alcohol abuse with withdrawal, unspecified; F11.93 Opioid use, unspecified with withdrawal; G89.29 Other chronic pain; E78.5 Hyperlipidemia, unspecified; Z86.711 Personal history of pulmonary embolism; E66.01 Morbid (severe) obesity due to excess calories; Z20.822 Contact with and (suspected) exposure to COVID-19; Z79.01 Long term (current) use of anticoagulants; Z79.899 Other long term (current) drug therapy
CPT/HCPCS: 36415; 71045; 80048; 80076; 80307; 81001; 83735; 83880; 83930; 83935; 84295; 84300; 84484; 85025; 87635; 93005; 93306; 97116; 97163; 99285; Q9957

== ENCOUNTER 2022-08-12 21:03 | Emergency (ER) | payer MEDICARE, MEDICAID, SELFPAY ==
--- NOTE | ~2022-08-12 | CT_ITS ---
EXAMINATION: NONCONTRAST HEAD CT NONCONTRAST CERVICAL SPINE CT INDICATION INFORMATION: Fall COMPARISON: 03/25/2021 TECHNIQUE: Separate noncontrast CT examinations of the head and cervical spine were performed. Coronal head CT images and coronal and sagittal cervical spine images were created at the technologist workstation. DLP: 2149 mGy-cm DOSE LOWERING TECHNIQUES: This CT examination was performed using dose optimization techniques as appropriate, variously including the following: - Automated exposure control - Adjustment of mA and/or kV according to patient size (this includes techniques or standardized protocols for targeted exams were dose is matched to indication/reason for exam; i.e. extremities or head) - Use of iterative reconstruction technique FINDINGS: Head: There is no evidence of acute intracranial hemorrhage or territorial infarction. No abnormal mass-effect or midline shift is seen. [place] to white matter differentiation is well preserved. No extra-axial fluid collections are identified. The ventricles are normal in size. There is mild periventricular white matter hypoattenuation consistent with chronic small vessel ischemic disease. The osseous structures and soft tissues are normal. Slight opacification of the left maxillary sinus. The mastoid air cells are well-aerated. Cervical spine: There is anatomic alignment of the vertebral bodies and posterior elements. Vertebral body heights are maintained. There is disc space narrowing and endplate osteophyte formation in the lower cervical spine. No evidence of acute fracture. No prevertebral soft tissue swelling. Visualized portions of the thyroid gland are grossly unremarkable. CT/CT cervical spine wo IV con IMPRESSION: No acute findings identified in the head or cervical spine.
--- NOTE | ~2022-08-12 | CT_ITS ---
EXAMINATION: NONCONTRAST HEAD CT NONCONTRAST CERVICAL SPINE CT INDICATION INFORMATION: Fall COMPARISON: 03/25/2021 TECHNIQUE: Separate noncontrast CT examinations of the head and cervical spine were performed. Coronal head CT images and coronal and sagittal cervical spine images were created at the technologist workstation. DLP: 2149 mGy-cm DOSE LOWERING TECHNIQUES: This CT examination was performed using dose optimization techniques as appropriate, variously including the following: - Automated exposure control - Adjustment of mA and/or kV according to patient size (this includes techniques or standardized protocols for targeted exams were dose is matched to indication/reason for exam; i.e. extremities or head) - Use of iterative reconstruction technique FINDINGS: Head: There is no evidence of acute intracranial hemorrhage or territorial infarction. No abnormal mass-effect or midline shift is seen. [place] to white matter differentiation is well preserved. No extra-axial fluid collections are identified. The ventricles are normal in size. There is mild periventricular white matter hypoattenuation consistent with chronic small vessel ischemic disease. The osseous structures and soft tissues are normal. Slight opacification of the left maxillary sinus. The mastoid air cells are well-aerated. Cervical spine: There is anatomic alignment of the vertebral bodies and posterior elements. Vertebral body heights are maintained. There is disc space narrowing and endplate osteophyte formation in the lower cervical spine. No evidence of acute fracture. No prevertebral soft tissue swelling. Visualized portions of the thyroid gland are grossly unremarkable. CT/CT head/brain wo IV con IMPRESSION: No acute findings identified in the head or cervical spine.
--- NOTE | ~2022-08-12 | XR_ITS ---
EXAMINATION: XR CHEST CLINICAL INFORMATION: Shortness of breath COMPARISON: 04/19/2022 TECHNIQUE: Frontal view of the chest was obtained. FINDINGS: The lungs are clear with no focal consolidation. No evidence of pneumothorax, pulmonary edema, or pleural effusions. Cardiac silhouette remains enlarged. No acute osseous findings are seen. XR/XR chest 1V IMPRESSION: No acute pulmonary findings. Cardiac silhouette remains enlarged.
[2022-08-12 21:10] VITALS: BP 148/70; PULSE 109; O2SAT 97
[2022-08-12 21:11] VITALS: BP 99/66; PULSE 124; RESP 16; TEMP 36.6; O2SAT 96; BMI 46.5
--- NOTE | 2022-08-12 21:17 | ECG_ITS ---
Test Reason : tachycardia Blood Pressure : / mmHG Vent. Rate : 117 BPM Atrial Rate : 000 BPM P-R Int : 000 ms QRS Dur : 140 ms QT Int : 360 ms P-R-T Axes : 000 -28 -05 degrees QTc Int : 502 ms Atrial fibrillation with rapid ventricular response with premature ventricular or aberrantly conducted complexes Right bundle branch block Abnormal ECG When compared with ECG of 19-APR-2022 07:27, No significant change was found Referred By: Generic ED Physician Electronically Signed By:SARA CERVANTES
[2022-08-12 21:52] LABS: MANUAL DIFF FLAG NO
[2022-08-12 21:54] LABS: Basophils Absolute Auto 0.1 X10*3/uL (0.0-0.2); Basophils Percent Auto 0.8 % (0-2); Hematocrit 33.1 % (42.0-52.0); Hemoglobin 9.7 g/dl (14.0-18.0); Imm Gran Abs Auto 0.05 X10*3/uL (0.00-0.03); Imm Gran Pct Auto 0.6 % (0.0-0.4); Lymphocytes Percent Auto 12.5 % (20-40); Mean Corpuscular HGB Conc 29.3 g/dl (31.0-36.0); Mean Corpuscular Hemoglobin 25.4 pg (27.0-33.0); Mean Corpuscular Volume 86.6 fL (80.0-98.0); Mean Platelet Volume 8.6 fL (9.4-12.4); Monocytes Absolute Auto 0.7 X10*3/uL (0.1-1.2); Monocytes Percent Auto 8.8 % (2-11); Neutrophils Absolute Auto 6.2 x10*3/uL (2.0-8.3); Neutrophils Percent Auto 77.3 % (45-73); Platelet Count 443 X10*3/uL (160-400); Red Blood Count 3.82 X10*6/uL (4.60-5.80); Red Cell Distribution Width 19.9 % (11.0-16.0)
[2022-08-12 22:10] LABS: Anion Gap 13 (12-20); Blood Urea Nitrogen 29 mg/dL (9-16); Calcium 8.7 mg/dL (8.4-10.2); Carbon Dioxide 33 mmol/L (22-29); Chloride 99 mmol/L (96-108); Creatinine Clr Calc Pharmacy 110.4; Estimated Glomerular Filt Rate > 60; Glucose Random 87 mg/dL (60-115); Sodium 141 mmol/L (135-145)
[2022-08-12 22:15] LABS: Troponin-I High Sensitivity 11.8 ng/L (<3.5-35.0)
[2022-08-12] MEDS: Metoprolol Tartrate 5 MG/5 ML VIAL IVPUSH (22:15)
[2022-08-12 22:16] LABS: INTERNATIONAL NORM RATIO 1.1 (0.9-1.1); Prothrombin Time 12.4 SEC (10.0-13.1)
--- NOTE | 2022-08-12 22:57 | ED_ITS ---
HPI - Weakness General Chief complaint: Weakness Stated complaint: Generalized Weakness Time Seen by Provider: 08/12/22 21:55 Source: patient Mode of arrival: EMS History of Present Illness HPI Narrative: 62-year-old male who presents via EMS after being discharged from the [facility] yesterday patient states that he fell off of his stool but denies any head strike or loss of consciousness. Patient does endorse that he consumed drugs this evening but denies any alcohol use. Patient states that he has a roommate, but that he is supposed to be set up with visiting nurse assistance but that they never showed up today. As per EMS this patient is renting a room in someone's house and they did not want him to return if he is not able to ambulate. Related Data Home Medications Medication Instructions Recorded Confirmed zolpidem 10 mg tablet 10 mg PO BEDTIME PRN Insomnia 01/20/22 04/19/22 acetaminophen 325 mg tablet 650 mg PO Q4H PRN Fever Or Pain 03/03/22 04/19/22 diltiazem HCl 180 mg 180 mg PO DAILY 03/03/22 04/19/22 capsule,extended release 24 hr, controlled (DILT-XR) furosemide 80 mg tablet 80 mg PO BID PRN Edema 03/03/22 04/19/22 spironolactone 50 mg tablet 100 mg PO BID 03/03/22 04/19/22 vilazodone 20 mg tablet 20 mg PO DAILY DEPRESSION 03/03/22 04/19/22 ammonium lactate 12 % topical cream 1 appl topical DAILY 04/19/22 04/19/22 bisacodyl 10 mg rectal suppository 10 mg VT DAILY PRN Constipation 04/19/22 04/19/22 gabapentin 400 mg capsule 400 mg PO TID 04/19/22 04/19/22 guaifenesin 100 mg/5 mL oral liquid 200 mg PO Q4H PRN Cough 04/19/22 04/19/22 metolazone 2.5 mg tablet 2.5 mg PO DAILY 04/19/22 04/19/22 naloxone 4 mg/actuation nasal 4 mg intranasal Q24H PRN opioid 04/19/22 04/19/22 spray (Narcan) depression Previous Rx's Medication Instructions Recorded apixaban 5 mg tablet (Eliquis) 5 mg PO BID 90 days #180 tabs 05/25/20 aripiprazole 5 mg tablet (Abilify) 5 mg PO DAILY 90 days #90 tabs 05/25/20 atorvastatin 40 mg tablet 40 mg PO BEDTIME 90 days #90 tabs 05/25/20 venlafaxine 150 mg 150 mg PO DAILY 90 days #90 caps 05/25/20 capsule,extended release 24 hr (Effexor XR) metoprolol tartrate 100 mg tablet 100 mg PO BID #60 tabs 03/12/21 oxycodone 5 mg tablet 5 mg PO Q4H PRN Pain, Mild (Pain 04/27/22 Scale 1-3) #10 tabs Allergies Allergy/AdvReac Type Severity Reaction Status Date / Time No Known Allergies Allergy Verified 08/12/22 21:16 Review of Systems Review of Systems: Pertinent positives and negatives as stated in [facility] Past Medical History Source: nursing notes reviewed Medical History ARIAN (acute kidney injury) Alcohol dependence Alcohol intoxication Alcohol withdrawal Alcohol withdrawal delirium Anemia Atrial fibrillation with RVR Atrial fibrillation with RVR Atrial fibrillation with RVR Atrial fibrillation with RVR Chest pain Chronic atrial fibrillation Depression Dyslipidemia Heart failure with left ventricular ejection fraction greater than or equal to 50 percent History of alcohol abuse Incarcerated incisional hernia Insomnia Metabolic acidosis with increased anion gap and accumulation of organic acids Morbid obesity Obesity Oral thrush Pulmonary embolism Sciatica Thoracic aortic aneurysm Toenail deformity Surgical History History of incisional hernia repair History of inguinal hernia repair Hx of gastric bypass S/P cholecystectomy Family History Family History Mother No problems noted. Father No problems noted. Family/Other Substance use disorder Social History Social History Household Members: Other Household Members Other:: lives with mother Housing: Alf Do you presently have visiting nurse or other home services: No Unable to assess alcohol history related to: Unable to respond Alcohol intake: current Alcohol intake frequency: a few times a week Alcohol type: beer Patient Tobacco Use Status: Never used Tobacco e-Cigarette/Vaping Use: Never Used Second Hand Smoke Exposure: No Substance Use Type: Other Advance Directives: Yes Advance Directives on File: Yes Advance Directives Date on File: 03/13/21 service: No Current occupational status: retired Physical Exam Vital Signs: Vital Signs: Last Vital Signs Temp 97.8 F 08/12/22 21:11 Pulse 104 H 08/12/22 22:59 Resp 20 08/12/22 22:59 BP 112/67 08/12/22 22:59 Pulse Ox 96 08/12/22 22:59 O2 Del Method Room Air 08/12/22 22:59 BMI result Body Mass Index 46.5 VITAL SIGNS: Reviewed. GENERAL: Chronically ill, unkempt, in no acute distress. HEAD: Normocephalic/atraumatic EYES: PERRLA, EOMI EARS: Ext canals without abnormality NOSE: Nares patent bilateral OROPHARYNX: no oral lesions noted, posterior pharynx clear NECK: Supple, no adenopathy LUNGS: Normal breath sounds. No adventitious sounds or accessory muscle use. SpO2<96> CARDIOVASCULAR: Regular rate and rhythm without noted murmurs, no JVD but bilateral lower extremity 1 to 2+ pitting edema. ABDOMEN: Soft, non-tender, non-distended with bowel sounds. MUSCULOSKELETAL: No tenderness, deformities, or effusions noted on gross inspection. EXTREMITIES: No cyanosis, clubbing or edema, patient has chronic wounds to bilateral lower extremities likely secondary to underlying edema.. SKIN: Inspection of the skin reveals no rashes NEUROLOGIC: Alert and oriented x 3. Strength and sensation to light touch were grossly intact x 4. Medications Administered Discontinued Medications Generic Name Dose Route Start Last Admin Trade Name Freq PRN Reason Stop Dose Admin Diltiazem HCl 10 mg 08/13/22 00:55 08/13/22 00:57 Diltiazem Hcl 50 Mg/10 Ml Vial IVPUSH 08/13/22 00:56 10 mg STAT STA Administration Metoprolol Tartrate 5 mg 08/12/22 21:55 08/12/22 22:15 Metoprolol Tartrate 5 Mg/5 Ml Vial IVPUSH 08/12/22 21:56 5 mg ONCE ONE Administration Medical Decision Making Medical Decision Making [facility] Narrative: 62-year-old male with history and clinical presentation of atrial fibrillation with RVR, patient readily endorses that he has not taken his heart rate control medication today as he is unable to assess which medications he should be taking because he has 2 bags of them. He states that the nurse did not show up today. Will obtain basic lab work, EKG, CT scan of the head and neck as he is on anticoagulation. On review of all investigations to include imaging studies my interpretation is that this patient has all findings consistent with chronically stable lab work and vital sign values consistent with poor adherence to his medications for today. This appears to be secondary to a gap in communication and Services between discharge for the patient from the SNF to receiving in-home services. I will place a consult for case management to further assist patient with in- home services and potentially coordinate discharge the patient with arrival of in a Services, specifically patient will need assistance with his medications so that he does not miss any of them. Patient is otherwise medically cleared for evaluation by case management and physical therapy. Differential Diagnosis Please see the discussion above Lab Data Please see the discussion above 08/12/22 21:48 08/12/22 21:48 Labs: Lab Results 08/12/22 08/12/22 08/12/22 Range/Units 21:48 21:48 21:48 WBC 8.0 (4.8-10.8) X10*3/uL RBC 3.82 L (4.60-5.80) X10*6/uL Hgb 9.7 L (14.0-18.0) g/dl Hct 33.1 L (42.0-52.0) % MCV 86.6 (80.0-98.0) fL MCH 25.4 L (27.0-33.0) pg MCHC 29.3 L (31.0-36.0) g/dl RDW 19.9 H (11.0-16.0) % Plt Count 443 H (160-400) X10*3/uL MPV 8.6 L (9.4-12.4) fL Immature Gran % (Auto) 0.6 H (0.0-0.4) % Neut % (Auto) 77.3 H (45-73) % Lymph % (Auto) 12.5 L (20-40) % [place] % (Auto) 8.8 (2-11) % Eos % (Auto) 0.0 (0-4) % Baso % (Auto) 0.8 (0-2) % Lymph # (Auto) 1.0 L (1.2-4.9) X10*3/uL [place] # (Auto) 0.7 (0.1-1.2) X10*3/uL Eos # (Auto) 0.0 (0.0-0.4) X10*3/uL Baso # (Auto) 0.1 (0.0-0.2) X10*3/uL Abs Immat Gran (auto) 0.05 H (0.00-0.03) X10*3/uL Absolute Neuts (auto) 6.2 (2.0-8.3) x10*3/uL Absolute Nucleated RBC 0.000 (0.0-0.012) X10*3/uL Nucleated RBC % (auto) 0.0 (0.0-0.2) /100WBC PT (10.0-13.1) SEC INR (0.9-1.1) Sodium 141 (135-145) mmol/L Potassium 4.0 (3.3-5.1) mmol/L Chloride 99 (96-108) mmol/L Carbon Dioxide 33 H (22-29) mmol/L Anion Gap 13 (12-20) BUN 29 H (9-16) mg/dL Creatinine 1.04 (0.5-1.4) mg/dL Estim Creat Clear Calc 110.4 Estimated GFR > 60 Random Glucose 87 (60-115) mg/dL Lactic Acid (0.5-2.0) mmol/L Calcium 8.7 D (8.4-10.2) mg/dL Magnesium 2.2 (1.6-2.6) mg/dL Total Bilirubin 0.4 (0.0-1.0) mg/dL Direct Bilirubin 0.2 (0.0-0.5) mg/dL AST 23 (5-37) U/L ALT 31 (0-40) U/L Alkaline Phosphatase 73 (39-117) U/L Troponin I High Sens 11.8 (<3.5-35.0) ng/L B-Natriuretic Peptide (<100) pg/mL Total Protein 7.2 (6.5-8.0) g/dL Albumin 3.0 L (3.5-5.0) g/dL Ethyl Alcohol < 10 mg/dL 08/12/22 08/12/22 08/12/22 Range/Units 21:48 21:48 21:50 WBC (4.8-10.8) X10*3/uL RBC (4.60-5.80) X10*6/uL Hgb (14.0-18.0) g/dl Hct (42.0-52.0) % MCV (80.0-98.0) fL MCH (27.0-33.0) pg MCHC (31.0-36.0) g/dl RDW (11.0-16.0) % Plt Count (160-400) X10*3/uL MPV (9.4-12.4) fL Immature Gran % (Auto) (0.0-0.4) % Neut % (Auto) (45-73) % Lymph % (Auto) (20-40) % Carroll % (Auto) (2-11) % Eos % (Auto) (0-4) % Baso % (Auto) (0-2) % Lymph # (Auto) (1.2-4.9) X10*3/uL Carroll # (Auto) (0.1-1.2) X10*3/uL Eos # (Auto) (0.0-0.4) X10*3/uL Baso # (Auto) (0.0-0.2) X10*3/uL Abs Immat Gran (auto) (0.00-0.03) X10*3/uL Absolute Neuts (auto) (2.0-8.3) x10*3/uL Absolute Nucleated RBC (0.0-0.012) X10*3/uL Nucleated RBC % (auto) (0.0-0.2) /100WBC PT 12.4 (10.0-13.1) SEC INR 1.1 (0.9-1.1) Sodium (135-145) mmol/L Potassium (3.3-5.1) mmol/L Chloride (96-108) mmol/L Carbon Dioxide (22-29) mmol/L Anion Gap (12-20) BUN (9-16) mg/dL Creatinine (0.5-1.4) mg/dL Estim Creat Clear Calc Estimated GFR Random Glucose (60-115) mg/dL Lactic Acid 2.0 (0.5-2.0) mmol/L Calcium (8.4-10.2) mg/dL Magnesium (1.6-2.6) mg/dL Total Bilirubin (0.0-1.0) mg/dL Direct Bilirubin (0.0-0.5) mg/dL AST (5-37) U/L ALT (0-40) U/L Alkaline Phosphatase (39-117) U/L Troponin I High Sens (<3.5-35.0) ng/L B-Natriuretic Peptide 97 (<100) pg/mL Total Protein (6.5-8.0) g/dL Albumin (3.5-5.0) g/dL Ethyl Alcohol mg/dL Independent Interpretation I performed an independent interpretation of an: EKG Interpretation: Atrial fibrillation with RVR, no STEMI, QRS-140, QTC-502 Radiology Impression Radiologist Impression: My interpretation is in agreement with radiology's impression of the imaging studies. External Record Review External record reviewed: Outpatient record and Prior outpatient labs Chronic Conditions Patient?s care impacted by: Diabetes Discharge Plan Discharge Clinical Impression: Atrial fibrillation with RVR, CHF (congestive heart failure) Patient Disposition: Still a Patient Prescriptions: No Action naloxone [Narcan] 4 mg/actuation [place],Non-Aerosol 4 mg INTRANASAL Q24H PRN (Reason: opioid depression) Rx Instructions: spray 1 dose into ONE nostril; alternate nostrils w each dose until help arrives metolazone 2.5 mg Tablet 2.5 mg PO DAILY gabapentin 400 mg Capsule 400 mg PO TID guaifenesin 100 mg/5 mL Liquid 200 mg PO Q4H PRN (Reason: Cough) bisacodyl 10 mg Suppository 10 mg VT DAILY PRN (Reason: Constipation) ammonium lactate 12 % Cream 1 appl TOPICAL DAILY oxycodone 5 mg tablet 5 mg PO Q4H PRN (Reason: Pain, Mild (Pain Scale 1-3)) Qty: 10 0RF metoprolol tartrate 100 mg Tablet 100 mg PO BID Qty: 60 0RF Protocol: Hold for SBP/HR < HOLD for SBP < : 90 HOLD for HR < : 60 zolpidem 10 mg Tablet 10 mg PO BEDTIME PRN (Reason: Insomnia) acetaminophen 325 mg Tablet 650 mg PO Q4H PRN (Reason: Fever Or Pain) diltiazem HCl [DILT-XR] 180 mg Capsule,Ext.Rel 24h Degradable 180 mg PO DAILY furosemide 80 mg Tablet 80 mg PO BID PRN (Reason: Edema) spironolactone 50 mg Tablet 100 mg PO BID vilazodone 20 mg Tablet 20 mg PO DAILY Rx Instructions: must administer with a meal/food Eliquis 5 mg tablet 5 mg PO BID 90 Days Qty: 180 3RF aripiprazole [Abilify] 5 mg tablet 5 mg PO DAILY 90 Days Qty: 90 1RF atorvastatin 40 mg tablet 40 mg PO BEDTIME 90 Days Qty: 90 3RF venlafaxine [Effexor XR] 150 mg capsule,extended release 24hr 150 mg PO DAILY 90 Days Qty: 90 3RF
[2022-08-12 22:59] VITALS: BP 112/67; PULSE 104; RESP 20; O2SAT 96
[2022-08-12 23:21] LABS: Alanine Aminotransferase 31 U/L (0-40); Alkaline Phosphatase 73 U/L (39-117); Aspartate Amino Transferase 23 U/L (5-37); Bilirubin Direct 0.2 mg/dL (0.0-0.5); Bilirubin Total 0.4 mg/dL (0.0-1.0); Ethanol < 10 mg/dL; Magnesium 2.2 mg/dL (1.6-2.6); Total Protein 7.2 g/dL (6.5-8.0)
[2022-08-12 23:25] LABS: B Type Natriuretic Peptide 97 pg/mL (<100)
[2022-08-13] MEDS: dilTIAZem HCL 50 MG/10 ML VIAL 10 MG IVPUSH (00:57)
[2022-08-13] MEDS: dilTIAZem HCL SR 90 MG CAP.ER.12H 180 MG PO (03:49)
[2022-08-13] MEDS: Furosemide 100 MG/10 ML VIAL 60 MG IVPUSH (03:55)
[2022-08-13 04:52] VITALS: BP 115/75; PULSE 120; RESP 16; TEMP 36.7; O2SAT 93
[2022-08-13 05:06] LABS: Amphetamine Screen Urine Not Detected (Not Detect); Barbiturates, Urine Not Detected (Not Detect); Benzodiazepines Screen Urine Not Detected (Not Detect); Cannabinoid Screen Urine Not Detected (Not Detect); Cocaine Screen Urine Not Detected (Not Detect); Fentanyl, urine Not Detected (Not Detect); Opiate Screen Urine POSITIVE (Not Detect); Phencyclidine Screen Urine Not Detected (Not Detect)
[2022-08-13 05:10] VITALS: PULSE 102; O2SAT 98
--- NOTE | 2022-08-13 08:21 | PC.NURSE ---
pt walking toward cafeteria reporting he wants to go home. offered pt change of clothes and food, informed him we are waiting for PT to eval him for his ambulation as he has had increased falls at home. PT at this time was at bedside, cleared pt as he was ambulating independently down the abdi way. Thao WALDEN ok with pt d/c at this time as he refused services. pt d/c home via [facility] van
--- NOTE | 2022-08-13 13:01 | MHC.CM.ED ---
Receive case management consult. Patient was already discharged from the ER. Patient was recently discharged from [facility]. Feels he needs SN to help with his medication. Patient is well known to case management. PCP is Valerie Mercer. [facility] accepted patient.
== END 2022-08-13 09:40 | disposition home or self-care (01) ==
PROVIDERS: Emergency Provider Student in an Organized Health Care Education/Training Program
DX: I48.20 Chronic atrial fibrillation, unspecified (principal); M54.2 Cervicalgia; R51.9 Headache, unspecified; R00.0 Tachycardia, unspecified; I50.9 Heart failure, unspecified; R53.1 Weakness; R06.02 Shortness of breath; R26.2 Difficulty in walking, not elsewhere classified; Z79.899 Other long term (current) drug therapy
CPT/HCPCS: 36415; 70450; 71045; 72125; 80048; 80076; 80307; 83605; 83735; 83880; 84484; 85025; 85610; 93005; 96374; 96375; 97161; 99284; J1940

== ENCOUNTER 2024-06-19 11:48 | Inpatient (IN) | payer MEDICARE, MEDICAID, SELFPAY ==
--- NOTE | ~2024-06-19 | XR_ITS ---
EXAMINATION: XR FOOT 1-2 VIEWS RIGHT HISTORY: pain, swelling, concern for osteo COMPARISON: There are no prior studies available for comparison. FINDINGS: Three views of the right foot are submitted. The bones are osteopenic. There is a minimally displaced intra-articular fracture of the base of the proximal phalanx of the great toe. There is difficult to exclude a pathologic fracture related to osteomyelitis given marked osteopenia. The joint spaces are preserved. There are vascular calcifications. XR/XR foot RT 2V IMPRESSION: Minimally displaced intra-articular fracture of the proximal phalanx of the great toe. A pathologic fracture secondary to osteomyelitis is not excluded due to marked osteopenia. Electronically signed by: Ilia Garcia MD 06/19/2024 01:44 PM EDT
--- NOTE | ~2024-06-19 | MR_ITS ---
CLINICAL HISTORY: Rule out osteomylelitis MR of the right footwith and without gadolinium Comparison: CR/SR - XR FOOT RT 2V - 06/19/24 13:29 EDT Findings: There is a comminuted, mildly displaced fracture of the proximal aspect of the proximal phalanx of the 1st digit with articular surface extension to the 1st metatarsophalangeal joint. Moderate surrounding ill-defined T2 signal elevation is present. There is a possible mildly displaced fracture of the proximal aspect of the proximal phalanx of the 3rd digit. Moderate ill-defined T2 signal elevation and low T1 signal throughout the proximal phalanx of the 3rd digit. Visualized soft tissues are grossly unremarkable. No fluid collections. Visualized flexor and extensor tendons are intact. IMPRESSION: 1. 1st digit fracture with surrounding contusion. 2. Possible 3rd digit fracture. Abnormal signal intensity within the proximal phalanx of the 3rd digit is present which could indicate contusion or osteomyelitis. This document has been electronically signed by: Berenice Verduzco MD on 06/19/2024 18:01:31
--- NOTE | ~2024-06-19 | XR_ITS ---
EXAMINATION: XR TIBIA FIBULA 2 VIEWS RIGHT HISTORY: pain, swelling, concern for osteo COMPARISON: There are no prior studies available for comparison. FINDINGS: AP and lateral views of the right tibia and fibula are submitted. Osseous mineralization is normal. There is no fracture or dislocation. There are degenerative changes involving the knee. The soft tissues are unremarkable. XR/XR tibia fibula RT 2V IMPRESSION: No plain film evidence of osteomyelitis of the right tibia or fibula. If this remains a clinical concern, three-phase bone scan or MRI could be performed. Electronically signed by: Ilia Garcia MD 06/19/2024 01:46 PM EDT
[2024-06-19 11:54] VITALS: BP 130/98; BP 164/98; PULSE 101; PULSE 94; RESP 20; TEMP 36.1; O2SAT 94; O2SAT 96; BMI 41.4
[2024-06-19 12:01] VITALS: BP 130/98; PULSE 101; RESP 20; TEMP 36.1; O2SAT 94
--- NOTE | 2024-06-19 12:05 | ED_ITS ---
HPI - General Adult General Chief complaint: Extremity Problem Stated complaint: NEUROPATHY, INFECTION RT FOOT PER EMS Time Seen by Provider: 06/19/24 12:05 Source: patient and EMS Mode of arrival: EMS Limitations: no limitations History of Present Illness ED Provider: Violet Varela PA-C HPI narrative: Patient is a 64 year old assigned male at with a history of HTN, HLD, CHF with preserved ejection fraction, anxiety, depression, atrial fib on elqiuis, chronic back on on oxycodone, and alcohol use presenting to the emergency department today with worsening right lower leg cellulitis. Patient states that he has been having issues with this right lower leg and has previously needed IV antibiotics. Patient states that he was admitted at [facility] on 06/15 and admitted until 06/18 for right lower leg cellulitis + syncope. Patient states that he was discharged on oral antibiotics but his leg has worsened significantly over the last 24 hours. Patient denies any dizziness, lightheadedness, abdominal pain, nausea, vomiting, fever, chills, blurry vision, double vision, loss of vision, chest pain, difficulty breathing, shortness of breath, back pain, night sweats, pain with urination, increased urinary frequency, increased urinary urgency, blood in his urine or stool, syncope or a near syncopal episode, recent trauma or falls, bowel incontinence, bladder incontinence, or any other complaints at this time. Onset (ago): day(s) Relieving factors: none Exacerbating factors: none Associated symptoms: denies other symptoms Treatments prior to arrival: other (oral antibiotics) Related Data Home Medications ?Medication ?Instructions ?Recorded ?Confirmed zolpidem 10 mg tablet 10 mg PO BEDTIME PRN Insomnia 01/20/22 04/19/22 acetaminophen 325 mg tablet 650 mg PO Q4H PRN Fever Or Pain 03/03/22 04/19/22 diltiazem HCl 180 mg 180 mg PO DAILY 03/03/22 04/19/22 capsule,extended release 24 hr, controlled (DILT-XR) furosemide 80 mg tablet 80 mg PO BID PRN Edema 03/03/22 04/19/22 spironolactone 50 mg tablet 100 mg PO BID 03/03/22 04/19/22 vilazodone 20 mg tablet 20 mg PO DAILY DEPRESSION 03/03/22 04/19/22 ammonium lactate 12 % topical cream 1 appl topical DAILY 04/19/22 04/19/22 bisacodyl 10 mg rectal suppository 10 mg [place] DAILY PRN Constipation 04/19/22 04/19/22 gabapentin 400 mg capsule 400 mg PO TID 04/19/22 04/19/22 guaifenesin 100 mg/5 mL oral liquid 200 mg PO Q4H PRN Cough 04/19/22 04/19/22 metolazone 2.5 mg tablet 2.5 mg PO DAILY 04/19/22 04/19/22 naloxone 4 mg/actuation nasal 4 mg intranasal Q24H PRN opioid 04/19/22 04/19/22 spray (Narcan) depression Previous Rx's ?Medication ?Instructions ?Recorded apixaban 5 mg tablet (Eliquis) 5 mg PO BID 90 days #180 tabs 05/25/20 aripiprazole 5 mg tablet (Abilify) 5 mg PO DAILY 90 days #90 tabs 05/25/20 atorvastatin 40 mg tablet 40 mg PO BEDTIME 90 days #90 tabs 05/25/20 venlafaxine 150 mg 150 mg PO DAILY 90 days #90 caps 05/25/20 capsule,extended release 24 hr (Effexor XR) metoprolol tartrate 100 mg tablet 100 mg PO BID #60 tabs 03/12/21 oxycodone 5 mg tablet 5 mg PO Q4H PRN Pain, Mild (Pain 04/27/22 Scale 1-3) #10 tabs Allergies Allergy/AdvReac Type Severity Reaction Status Date / Time No Known Allergies Allergy Verified 06/19/24 11:55 Review of Systems 2 Constitutional: Constitutional: Reports no additional constitutional complaints, Denies chills, Denies fever(s) and Denies night sweats Eyes: Eyes: Reports no additional eye complaints, Denies blurry vision, Denies change in vision, Denies diplopia, Denies eye discharge, Denies loss of vision and Denies eye pain ENT: Denies dizziness Cardiovascular: Cardiovascular: Reports no additional cardiovascular complaints, Denies chest pain, Denies lightheadedness, Denies Loss of Consciousness and Denies dyspnea Respiratory: Respiratory: Reports no additional respiratory complaints and Denies dyspnea Gastrointestinal: Gastrointestinal: Reports no additional gastrointestinal complaints, Denies abdominal pain, Denies melena, Denies hematochezia, Denies change in bowel habits and Denies change in stool character Genitourinary: Genitourinary: Reports no additional male genitourinary complaints, Denies hematuria, Denies oliguria, Denies difficulty urinating, Denies dysuria, Denies urinary frequency, Denies urinary hesitancy, Denies urinary incontinence and Denies urinary urgency Musculoskeletal: Musculoskeletal: Reports no additional musculoskeletal complaints, Denies numbness and Denies tingling Comments: right lower leg pain + swelling Neurologic: Denies dizziness, Denies loss of vision, Denies numbness and Denies tingling Psychiatric: Psychiatric: Reports no additional psychiatric complaints Endocrine: Endocrine: Reports no additional endocrine complaints Hematologic/Lymphatic: Hematologic/Lymphatic: Reports no additional hematologic/lymphatic complaints Allergic/Immunologic: Allergic/Immunologic: Reports no additional allergic/immunologic complaints [facility] Past Medical History Attestation statement: The following information was validated with the patient. Source: old records reviewed and nursing notes reviewed Medical History Atrial fibrillation with RVR Chest pain Atrial fibrillation with RVR Sciatica ARIAN (acute kidney injury) Atrial fibrillation with RVR Alcohol withdrawal delirium Oral thrush Metabolic acidosis with increased anion gap and accumulation of organic acids Alcohol withdrawal Heart failure with left ventricular ejection fraction greater than or equal to 50 percent Incarcerated incisional hernia Atrial fibrillation with RVR Alcohol dependence Alcohol intoxication Thoracic aortic aneurysm Chronic atrial fibrillation Toenail deformity Dyslipidemia Anemia History of alcohol abuse Morbid obesity Insomnia Depression Pulmonary embolism Obesity Surgical History History of incisional hernia repair S/P cholecystectomy History of inguinal hernia repair Hx of gastric bypass Family History Family History Mother No problems noted. Father No problems noted. Family/Other Substance use disorder Social History Social History Household Members: Other Household Members Other:: lives with mother Housing: [facility] Do you presently have visiting nurse or other home services: No Unable to assess alcohol history related to: Unable to respond Alcohol intake: current Alcohol intake frequency: a few times a week Alcohol type: beer Comment: pt refusing alarms Patient Tobacco Use Status: Never used Tobacco Smoked in Last 30 Days: No e-Cigarette/Vaping Use: Never Used Second Hand Smoke Exposure: No Use of substances other than those prescribed or required for medical reasons: No Substance Use Type: Other Advance Directives: Yes Advance Directives on File: Yes Advance Directives Date on File: 03/13/21 Do you have a plan to hurt others: No Plan service: No Current occupational status: retired Physical Exam ED Vital Signs: Vital Signs - 24 hr 06/19/24 11:54 06/19/24 12:01 06/19/24 14:46 Temperature 97.0 F 97.0 F Pulse Rate 101 H 101 H 75 Respiratory Rate 20 20 16 Blood Pressure 130/98 H 130/98 H 124/82 Pulse Oximetry 94 94 96 Oxygen Delivery Method Room Air Room Air Room Air BMI result Body Mass Index 41.4 Const General: cooperative, no acute distress, alert and awake Nutritional Appearance: well nourished Orientation/consciousness: patient oriented x3 Limitations: no limitations HENMT Head: Yes normal to inspection and Yes atraumatic Ears: hearing grossly normal bilaterally and external ears normal General nose exam: Normal external nose present, no nasal discharge noted and no epistaxis Face and sinus: Yes normal facial exam, No abrasion and No laceration Mouth: Normal oral and palatal mucosa present, no drooling and no muffled voice Eyes General: appearance normal, both eyes and all related structures Periorbital: periorbital findings normal Eyelids: Yes eyelids normal Conjunctivae: conjunctivae normal Pupils: Equal, round and reactive pupils present EOM: EOMs intact bilaterally Neck Neck: Yes normal visual inspection, Yes full ROM and Yes no lymphadenopathy Chest Chest palpation & inspection: normal inspection of the chest Resp Effort & Inspection: normal respiratory effort and able to speak in complete sentences GI Inspection: Yes normal to inspection Neuro General: patient oriented x3, moves all extremities and CN's II-XI intact bilaterally Cranial nerves: Yes Equal, round and reactive pupils present Cognition (Neuro): normal cognition Extrem Other: General: Yes full ROM and Yes capillary refill normal Psych Appearance: grossly normal Mental Status: mental status grossly normal Affect: normal affect Attitude: cooperative Thought process: Normal thought process present Thought content: Normal thought content present Insight: Good insight present (Psych) Medications Administered Generic Name Dose Route Start Last Admin Trade Name Freq PRN Reason Stop Dose Admin Vancomycin HCl 2,000 mg in 500 mls @ 250 mls/hr 06/19/24 15:00 06/19/24 15:26 Vancomycin/Ns IV 06/19/24 16:59 250 mls/hr ONCE ONE Administration Discontinued Medications Generic Name Dose Route Start Last Admin Trade Name Angel PRN Reason Stop Dose Admin Piperacillin Sod/Tazobactam 50 mls @ 100 mls/hr 06/19/24 12:10 06/19/24 13:53 Sod 3.375 gm/ Sodium Chloride IV 06/19/24 12:39 Infused ONCE ONE Infusion Oxycodone HCl 10 mg 06/19/24 12:11 06/19/24 12:18 Oxycodone Hcl Immed Release 5 Mg Tablet PO 06/19/24 12:12 10 mg ONCE ONE Administration Oxycodone HCl 10 mg 06/19/24 15:38 06/19/24 15:47 Oxycodone Hcl Immed Release 5 Mg Tablet PO 06/19/24 15:39 10 mg ONCE ONE Administration Medical Decision Making Medical Decision Making MDM Narrative: Patient is a 64 year old assigned male at with a history of HTN, HLD, CHF with preserved ejection fraction, anxiety, depression, atrial fib on elqiuis, chronic back on on oxycodone, and alcohol use presenting to the emergency department today with worsening right lower leg cellulitis. Patient's physical exam was as noted in the physical exam portion of this note. Patient's blood work showed an elevated ESR of 36 and CRP of 1.55. Patient's right tib fib x-ray showed no acute process. Patient's right foot x-ray showed evidence of a minimally displaced intra-articular fracture of hte proximal phalanx of the great toe which may be secondary to osteomyelitis. Given the patient's clinical presentation, I am suspicious of right foot osteomyelitis. Patient was given IV Zosyn and Vancomycin. I was not concerned for sepsis in this patient (@1500). I spoke to the hospitalist team who agreed to admission. I explained my physical exam findings as well as all test results to the patient. I answered all questions asked by the patient. Patient verbalized agreement and understanding with this treatment plan and admission. Differential Diagnosis Differential Diagnoses: The differential diagnosis associated with the presentation includes RLE cellulitis Right foot osteomyelitis Admission/Observation Consideration of admission/observation: Escalation of care including admission/observation considered Patient admitted as noted in the MDM Rationale portion of this note. Consult Healthcare Provider Management of the patient was discussed with: Hospitalist (agreed to admission as noted in the MDM Rationale portion of this note. ) Lab Data [facility] Lab Attestation statement: I reviewed the patient's lab results. My interpretation of these results are in the MDM Rationale portion of this note. 06/19/24 12:36 06/19/24 13:09 Labs: Lab Results 06/19/24 06/19/24 06/19/24 Range/Units 12:36 12:45 13:09 WBC 8.3 (4.8-10.8) X10*3/uL RBC 4.83 D (4.60-5.80) X10*6/uL Hgb 14.1 D (14.0-18.0) g/dl Hct 42.9 D (42.0-52.0) % MCV 88.8 (80.0-98.0) fL MCH 29.2 (27.0-33.0) pg MCHC 32.9 (31.0-36.0) g/dl RDW 16.5 H (11.0-16.0) % Plt Count 182 D (160-400) X10*3/uL MPV 10.3 (9.4-12.4) fL Immature Gran % (Auto) 0.4 (0.0-0.4) % Neut % (Auto) 85.9 H (45-73) % Lymph % (Auto) 5.6 L (20-40) % [place] % (Auto) 6.9 (2-11) % Eos % (Auto) 0.6 (0-4) % Baso % (Auto) 0.6 (0-2) % Lymph # (Auto) 0.5 L (1.2-4.9) X10*3/uL [place] # (Auto) 0.6 (0.1-1.2) X10*3/uL Eos # (Auto) 0.1 (0.0-0.4) X10*3/uL Baso # (Auto) 0.1 (0.0-0.2) X10*3/uL Abs Immat Gran (auto) 0.03 (0.00-0.03) X10*3/uL Absolute Neuts (auto) 7.1 (2.0-8.3) x10*3/uL Absolute Nucleated RBC 0.000 (0.0-0.012) X10*3/uL Nucleated RBC % (auto) 0.0 (0.0-0.2) /100WBC ESR 36 H (0-15) MM/HR Hold Blue Top SEE NOTE Sodium 137 (135-145) mmol/L Potassium 3.5 (3.3-5.1) mmol/L Chloride 102 (96-108) mmol/L Carbon Dioxide 26 (22-29) mmol/L Anion Gap 13 (12-20) BUN 12 (9-16) mg/dL Creatinine 0.74 (0.5-1.4) mg/dL Estim Creat Clear Calc 141.5 Estimated GFR > 60 Random Glucose 101 (60-115) mg/dL Lactic Acid 1.1 (0.5-2.0) mmol/L Calcium 8.1 L D (8.4-10.2) mg/dL Magnesium 2.0 (1.6-2.6) mg/dL Total Bilirubin 0.6 (0.0-1.0) mg/dL AST 40 H (5-37) U/L ALT 30 (0-40) U/L Alkaline Phosphatase 110 (39-117) U/L C-Reactive Protein 1.55 H (< or = 0.50) mg/dL Total Protein 7.4 (6.5-8.0) g/dL Albumin 3.5 (3.5-5.0) g/dL Independent Interpretation I performed an independent interpretation of an: Plain X-Ray Interpretation: My interpretation is in agreement with the radiologist's impression of these imaging studies. L EXAMINATION: XR FOOT 1-2 VIEWS RIGHT HISTORY: pain, swelling, concern for osteo COMPARISON: There are no prior studies available for comparison. FINDINGS: Three views of the right foot are submitted. The bones are osteopenic. There is a minimally displaced intra-articular fracture of the base of the proximal phalanx of the great toe. There is difficult to exclude a pathologic fracture related to osteomyelitis given marked osteopenia. The joint spaces are preserved. There are vascular calcifications. XR/XR foot RT 2V IMPRESSION: Minimally displaced intra-articular fracture of the proximal phalanx of the great toe. A pathologic fracture secondary to osteomyelitis is not excluded due to marked osteopenia. Electronically signed by: Ilia Garcia MD 06/19/2024 01:44 PM EDT RP Dictated By: Ilia Garcia MD Signed By: Electronically signed by Ilia Garica MD 06/19/24 1344 EXAMINATION: XR TIBIA FIBULA 2 VIEWS RIGHT HISTORY: pain, swelling, concern for osteo COMPARISON: There are no prior studies available for comparison. FINDINGS: AP and lateral views of the right tibia and fibula are submitted. Osseous mineralization is normal. There is no fracture or dislocation. There are degenerative changes involving the knee. The soft tissues are unremarkable. XR/XR tibia fibula RT 2V IMPRESSION: No plain film evidence of osteomyelitis of the right tibia or fibula. If this remains a clinical concern, three-phase bone scan or MRI could be performed. Electronically signed by: Ilia Garcia MD 06/19/2024 01:46 PM EDT Dictated By: Ilia Garcia MD Signed By: Electronically signed by Ilia Garcia MD 06/19/24 1346 Radiology Impression Discussion of test interpretation with radiology: I have reviewed the radiologist's reading. Independent Historian Clinical information obtained from an independent historian. History obtained from or confirmed by: EMS (EMS provided additional history and confirmed the history provided by the patient.) Critical Care Time Critical Care Time Critical Care Time: Yes Total Critical Care Time: 36 Attestation: I spent 36 minutes of Critical Care Time with this patient. This does not include time spent on separately reported billable procedures. Discharge Plan Discharge Clinical Impression: Osteomyelitis, Cellulitis Patient Disposition: Admitted As Inpatient Prescriptions: No Action naloxone [Narcan] 4 mg/actuation [place],Non-Aerosol 4 mg INTRANASAL Q24H PRN (Reason: opioid depression) Rx Instructions: spray 1 dose into ONE nostril; alternate nostrils w each dose until help arrives metolazone 2.5 mg Tablet 2.5 mg PO DAILY gabapentin 400 mg Capsule 400 mg PO TID guaifenesin 100 mg/5 mL Liquid 200 mg PO Q4H PRN (Reason: Cough) bisacodyl 10 mg Suppository 10 mg VA DAILY PRN (Reason: Constipation) ammonium lactate 12 % Cream 1 appl TOPICAL DAILY oxycodone 5 mg tablet 5 mg PO Q4H PRN (Reason: Pain, Mild (Pain Scale 1-3)) Qty: 10 0RF metoprolol tartrate 100 mg Tablet 100 mg PO BID Qty: 60 0RF Protocol: Hold for SBP/HR < HOLD for SBP < : 90 HOLD for HR < : 60 zolpidem 10 mg Tablet 10 mg PO BEDTIME PRN (Reason: Insomnia) acetaminophen 325 mg Tablet 650 mg PO Q4H PRN (Reason: Fever Or Pain) diltiazem HCl [DILT-XR] 180 mg Capsule,Ext.Rel 24h Degradable 180 mg PO DAILY furosemide 80 mg Tablet 80 mg PO BID PRN (Reason: Edema) spironolactone 50 mg Tablet 100 mg PO BID vilazodone 20 mg Tablet 20 mg PO DAILY Rx Instructions: must administer with a meal/food Eliquis 5 mg tablet 5 mg PO BID 90 Days Qty: 180 3RF aripiprazole [Abilify] 5 mg tablet 5 mg PO DAILY 90 Days Qty: 90 1RF atorvastatin 40 mg tablet 40 mg PO BEDTIME 90 Days Qty: 90 3RF venlafaxine [Effexor XR] 150 mg capsule,extended release 24hr 150 mg PO DAILY 90 Days Qty: 90 3RF Print Language: Sami
--- NOTE | 2024-06-19 12:05 | PC.NURSE ---
Pt comes to ED today via EMS from home for infection to RLE. Pt reports RLE has had an on going intermittent infection with 8/10 throbbing pain. Pt reports he was seen at [facility] [place] [place] earlier this week and received IV Abx inpatient, then was d/c'd with PO Abx in which he states they do not work. Pt reports VNA x2 per week but states he needs more help at home. A&Ox3, VSS, afebrile. RLE presents with erythema, dry scaly skin, and swelling.
[2024-06-19] MEDS: oxyCODONE HCl Immed Release 5 MG TABLET 10 MG PO ×2 (12:18→15:47)
[2024-06-19 12:43] LABS: MANUAL DIFF FLAG NO
[2024-06-19 12:45] LABS: Basophils Absolute Auto 0.1 X10*3/uL (0.0-0.2); Basophils Percent Auto 0.6 % (0-2); Eosinophils Absolute Auto 0.1 X10*3/uL (0.0-0.4); Eosinophils Percent Auto 0.6 % (0-4); Hematocrit 42.9 % (42.0-52.0); Hemoglobin 14.1 g/dl (14.0-18.0); Imm Gran Abs Auto 0.03 X10*3/uL (0.00-0.03); Imm Gran Pct Auto 0.4 % (0.0-0.4); Lymphocytes Absolute Auto 0.5 X10*3/uL (1.2-4.9); Lymphocytes Percent Auto 5.6 % (20-40); Mean Corpuscular HGB Conc 32.9 g/dl (31.0-36.0); Mean Corpuscular Hemoglobin 29.2 pg (27.0-33.0); Mean Corpuscular Volume 88.8 fL (80.0-98.0); Mean Platelet Volume 10.3 fL (9.4-12.4); Monocytes Absolute Auto 0.6 X10*3/uL (0.1-1.2); Monocytes Percent Auto 6.9 % (2-11); Neutrophils Absolute Auto 7.1 x10*3/uL (2.0-8.3); Neutrophils Percent Auto 85.9 % (45-73); Platelet Count 182 X10*3/uL (160-400); Red Blood Count 4.83 X10*6/uL (4.60-5.80); Red Cell Distribution Width 16.5 % (11.0-16.0); White Blood Count 8.3 X10*3/uL (4.8-10.8)
[2024-06-19] MEDS: Piperacillin Sodium/Tazobactam 3.375 GM in 0.9 % Sodium Chloride 50 ML IV ×2 (12:53→18:24)
[2024-06-19 13:03] LABS: Lactic Acid 1.1 mmol/L (0.5-2.0)
[2024-06-19 13:25] LABS: Erythrocyte Sedimentation Rate 36 MM/HR (0-15)
[2024-06-19 13:32] LABS: Alanine Aminotransferase 30 U/L (0-40); Albumin Level 3.5 g/dL (3.5-5.0); Alkaline Phosphatase 110 U/L (39-117); Anion Gap 13 (12-20); Aspartate Amino Transferase 40 U/L (5-37); Bilirubin Total 0.6 mg/dL (0.0-1.0); Blood Urea Nitrogen 12 mg/dL (9-16); C Reactive Protein 1.55 mg/dL (< or = 0.50); Calcium 8.1 mg/dL (8.4-10.2); Carbon Dioxide 26 mmol/L (22-29); Chloride 102 mmol/L (96-108); Creatinine Clr Calc Pharmacy 141.5; Estimated Glomerular Filt Rate > 60; Glucose Random 101 mg/dL (60-115); Potassium 3.5 mmol/L (3.3-5.1); Sodium 137 mmol/L (135-145); Total Protein 7.4 g/dL (6.5-8.0)
--- OUTSIDE RECORDS SUMMARY | 2024-06-19 13:56 | XMS_ITS | Encounter Summary ---
Author Organization [employer] Address [address] [place] [address] [address] [place] [address] Care Team Providers Care Nut Feeder Name Role Phone Rick Arcos MD Primary Care Prov ider Encounter Details Date Type Department Care Team (Latest Contact Info) Description 11/14/2021 Abstract [facility] CONVERSIONS Dental, Provider, DDS Social History Tobacco Use Types Packs/Day Years Used Date Smoking Tobacco: Never Assessed Sex and Gender Information Value Date Recorded Sex Assigned at Male 02/05/2022 10:20 AM EDT Legal Sex Male 10:20 AM EDT Gender Identity Male 02/05/2022 10:20 AM EDT Sexual Orientation Straight 02/05/2022 10 :20 AM EDT documented as of this encounter Plan of Treatment Upcoming Encounters Date Type Department Care Team (Late st Contact Info) Description 06/25/2024 10:45 AM EDT Office Visit [facility] MED & PEDS [address] [place] [address] Rick Arcos MD [address] [place] [address] documented as of this encounter Visit Diagnoses Not on filedocumented in this encounter Care Teams Nut Feeder Relationship Specialty Start Date End Date Rick Arcos MD [address] [place] [address] PCP - General Internal Medicine 05/28/24 Rodrick Arguello 06/09/24 documented as of this encounter
--- OUTSIDE RECORDS SUMMARY | 2024-06-19 13:56 | XMS_ITS | Encounter Summary ---
Author Organization [facility] [employer] Address [address] [place] [address] Care Team Providers Care Campus Police Officer Name Role Phone Rick Arcos MD Primary Care Prov ider Encounter Details Date Type Department Care Team (Late Contact Info) Description 05/28/2024 Telephone [facility] MED & PEDS [address] [place], [place] [phone] Barbara Velazquez RN [address] [place], [place] [phone] Social History Tobacco Use Types Packs/Day Years Used Date Smoking Tobacco: Never Smokeless Tobacco: Never Alcohol Use Standard Drinks/Week Comments Not Currently 0 (1 standard drink = 0.6 oz pur e alcohol) Sex and Gender Information Value Date Recorded Sex Assigned at Male 02/05/2022 10:20 AM EDT Legal Sex Male 10:20 AM EDT Gender Identity Male 02/05/2022 10:20 AM EDT Sexual Orientation Straight 02/05/2022 10 :20 AM EDT documented as of this encounter Miscellaneous Notes * Telephone Encounter - Barbara Velazquez RN - 05/28/2024 3:55 PM EST Pt stats she takes Oxycodone 5mg 5 tab/ day. Asking for a full month supply. documented in this encounter Plan of Treatment Upcoming Encounters Date Type Department Care Team (Late Contact Info) Description 06/25/2024 10:45 AM EDT Office Visit [facility] MED & PEDS [address] [place], [place] [phone] Rick Arcos MD [address] [place] [address] documented as of this encounter Visit Diagnoses Not on filedocumented in this encounter Care Teams Campus Police Officer Relationship Specialty Start Date End Date Rick Arcos MD [address] [place] [address] PCP - General Internal Medicine 05/28/24 documented as of this encounter
--- OUTSIDE RECORDS SUMMARY | 2024-06-19 13:56 | XMS_ITS | Clinical Summary ---
Author Organization [facility] Address [address] [place] [address] Care Team Providers Care Hay Stacker Operator Name Role Phone Maty Darnell MD Primary Care Provider [phone] Allergies No known active allergies Medications Medication Sig Dispensed Refills Start Date End Date Status atorvastatin (LIPITOR) tablet 40 mg Take 40 mg by mouth daily. 0 Active apixaban (ELIQUIS) 5 MG TABS tablet Take 5 mg by mouth every 12 (twelve) hours. 0 Active metoprolol tartrate (LOPRESSOR) 50 MG tablet Take 50 mg by mouth 2 (two) times a day. 0 Active ARIPiprazole (ABILIFY) 5 MG tablet Take 5 mg by mouth every morning. 0 Active dilTIAZem (CARDIZEM CD) 120 MG 24 hr capsule Take 120 mg by mouth daily. 0 Active zolpidem (AMBIEN) 10 MG tablet Take 10 mg by mouth every night at bedtime as needed for sleep. 0 Active venlafaxine (EFFEXOR-XR) 75 MG 24 hr capsule Take 75 mg by mouth daily. (Total Daily Dose 225 mg) 0 Active venlafaxine (EFFEXOR-XR) 150 MG 24 hr capsule Take 150 mg by mouth daily. (Total Daily Dose 225 mg QAM) 0 Active Active Problems Problem Noted Date Diagnosed Date Chest pain 11/23/2019 Other chest pain 11/14/2019 Atrial fibrillation with RVR 11/12/2019 Anxiety 11/12/2019 Early onset Alzheimer's disease with behavioral disturbance 11/12/2019 Secondary hypercoagulable state 11/12/2019 Morbid obesity 11/12/2019 A-fib 10/24/2019 Family History Medical History Relation Name Comments No Sig Med Hx Father No Sig Med Hx Mother Relation Name Status Comments Father Mother Social History Tobacco Use Types Packs/Day Years Used Date Smoking Tobacco: Never Smokeless Tobacco: Never Alcohol Use Standard Drinks/Week Comments No 0 (1 standard drink = 0.6 oz pur e alcohol) Sex and Gender Information Value Date Recorded Sex Assigned at Male 10/27/2019 9:32 AM EDT Gender Identity Not on file Sexual Orientation Not on file Last Filed Vital Signs Vital Sign Reading Time Taken Comments Blood Pressure 138/94 11/23/2019 9:19 AM EDT Pulse 76 11/23/2019 9:19 AM EDT Temperature 36.7 ??C (98.1 ??F) 11/23/2019 9:19 AM ED T Respiratory Rate 19 11/23/2019 9:19 AM EDT Oxygen Saturation 97% 11/23/2019 9:19 AM EDT Inhaled Oxygen Concentration - - Weight 152 kg (335 lb 3.2 oz) 11/23/2019 1:24 AM EDT Height 182.9 cm (6') 11/23/2019 1:24 AM EDT Body Mass Index 45.46 11/23/2019 1:24 AM EDT Plan of Treatment Health Maintenance Due Date Last Done Comments Hepatitis C Screening 1958 COVID-19 Vaccine (#1) 1958 Depression Screening 1970 BMI Counseling 1976 Preventative Health Evaluation 1976 DTap / Tdap / Td (1 - Tdap) 1977 Colon Cancer Screening (Colonoscopy) 2003 Shingrix-Zoster Vaccine (1 of 2) 2008 Fall Risk Assessment 2023 Pneumococcal Vaccine (1 of 1 - PCV) 2023 Influenza Vaccine (#1) 2023 04/05/2010 RSV Adult > 60+ Yrs or Pregn ant (1 - 1-dose 75+ series) 2033 Hepatitis B Vaccines Aged Out No long er eligible based on patient's age to complete this topic RSV Ped < 20 months Aged Out No longe r eligible based on patient's age to complete this topic Advance Directives For more information, please contact: [phone] Latest Code Status on File Code Status Date Activated Date Inactivated Comments Full Code 11/23/2019 12:35 AM 11/23/2019 8:10 PM This code status was ascertained in the following way: discussion with patient . Code Status History Code Status Date Activated Date Inactivated Comments Full Code 11/12/2019 9:55 PM 11/15/2019 10:49 PM This c ode status was ascertained in the following way: Patient was explained the meaning of full code and DNR with regards to CPR intubation and mechanical ventilation. All questions were answered . Full Code 10/24/2019 7:56 PM 10/26/2019 8:34 PM This code status was ascertained in the following way: discussion with patient . Full Code 10/24/2019 6:25 PM 10/24/2019 7:56 PM This code status was ascertained in the following way:. . Care Teams Hay Stacker Operator Relationship Specialty Start Date End Date Maty Darnell MD [address] [place] [address] [address] [place] [address] PCP - General Internal Medicine 10/24/19
--- OUTSIDE RECORDS SUMMARY | 2024-06-19 13:56 | XMS_ITS | Encounter Summary ---
Author Organization [employer] Address [address] [facility] 7 [place] [address] Care Team Providers Care Hatchery Laborer Name Role Phone Rick Arcos MD Primary Care Prov ider Reason for Visit * Reason Onset Date Comments Care Coordination 06/09/2024 Medication Question 06/09/2024 Encounter Details Date Type Department Care Team (Late st Contact Info) Description 06/09/2024 Telephone [facility] MEDICINE [address] [place] [address] Rick Arcos MD [address] [place], [place] [id number] Care Coordination; Medication Question Social History Tobacco Use Types Packs/Day Years [...] encounter Miscellaneous Notes * Telephone Encounter - Chapis Arias RN - 06/09/2024 4:08 PM EST TC to Dany[facility] with [facility] using phone number below. No answer. Voicemail identified self and organization. Message left instructing Danyelle to call office back. * Telephone Encounter - Tadeo Lincoln - 06/09/2024 12:52 PM EST Tc from [facility] Visiting Nurse looking for approval of plan of care for pt and also requesting a call back to reconcile all pt medication and also discuss interactions of pt medication. Danyelle (Visiting Nurse): [phone] documented in this encounter Plan of Treatment Upcoming Encounters Date Type Department Care Team (Late st Contact Info) Description 06/25/2024 10:45 AM EDT Office Visit [facility] P[facility] [address] [place] [address] Rick Arcos MD [address] [place] [address] documented as of this encounter Visit Diagnoses Not on filedocumented in this encounter Care Teams Hatchery Laborer Relationship Specialty Start Date End Date Rick Arcos MD [address] [place] [address] PCP - General Internal Medicine 05/28/24 Rodrick Arguello 06/09/24 documented as of this encounter
--- OUTSIDE RECORDS SUMMARY | 2024-06-19 13:56 | XMS_ITS | Clinical Summary ---
Author Organization [employer] Address [address] [facility] 7[address] [place] [address] Care Team Providers Care Delivery Specialist Name Role Phone Rick Arcos MD Primary Care Prov ider Allergies No known active allergies Medications METOPROLOL SUCCINATE PO Take 1 tablet by mouth Once per day. 50mg 3 tablet BID Active ARIPiprazole (Abilify) 5 MG tablet Take 1 tablet by mouth at bed time. Active acamprosate (Campral) 333 MG EC tablet Take 2 tablets by mouth every 8 (eight) hours. Active bisacodyl (Dulcolax) 10 MG suppository Insert 1 suppository into the rectum at bed time. Active sodium phosphate (Fleets) 7-19 GM/118ML enema enema Active naloxone (Narcan) 4 mg/0.1 mL nasal spray Administer 0.1 mL into affected nostril(s). Active dextromethorph an-guaiFENesin (Robitussin-DM ) 10-100 MG/5ML liquid Take 10 mL by mouth every 4 (four) hours. Active Methylcobalami n 1 MG chewable tablet Active Multiple Vitamin (multivitamin) capsule Take 1 capsule by mouth Once per day. Active metoprolol tartrate (Lopressor) 100 MG tablet Take 100 mg by mouth 2 times daily. 02/20/20 24 Active acetaminophen (Tylenol) 325 MG capsule Take 1 capsule (325 mg) by mouth every 6 (six) hours if needed for mild pain. 120 capsule 3 05/22/19 25 026 Active Albuterol Sulfate, sensor, (ProAir Digihaler) 108 (90 Base) MCG/ACT aerosol powder Inhale 2 puffs every 4 (four) hours. 1 each 3 05/22/19 25 Active allopurinol (Zyloprim) 100 MG tablet Take 1 tablet (100 mg) by mouth Once per day. 90 tablet 3 05/22/19 Active apixaban (Eliquis) 2.5 MG tablet Take 2 tablets (5 mg) by mouth 2 times daily. 360 tablet 3 05/22/19 Active atorvastatin (Lipitor) 40 MG tablet Take 1 tablet (40 mg) by mouth Once per day. 90 tablet 3 05/22/19 Active cyclobenzaprin e (Flexeril) 10 MG tabletIndicati ons:Muscle spasm Take 1 tablet (10 mg) by mouth every 12 (twelve) hours. 60 tablet 05/22/19 Active digoxin (Lanoxin) 250 MCG tab;et Take 1 tablet (250 mcg) by mouth Once per day. 30 tablet 1 05/22/19 Active dilTIAZem XR (Dilacor XR) 120 MG 24 hr capsule Take 1 capsule (120 mg) by mouth Once per day. 180mg daily 30 capsule 05/22/19 Active gabapentin (Neurontin) 400 MG capsule Take 1 capsule (400 mg) by mouth 3 times daily. 90 capsule 05/22/19 Active omeprazole (PriLOSEC) [address] capsule Take 1 capsule (40 mg) by mouth before breakfast. Do not crush or chew. 90 capsule 05/22/19 Active potassium chloride CR (Klor-Con M20) 20 MEQ ER tablet Take 1 tablet (20 mEq) by mouth Once per day. 90 tablet 05/22/19 Active Sennosides 8.6 MG capsule Take 2 capsules (17.2 mg) by mouth Once per day. 60 capsule 1 05/22/19 Active spironolactone (Aldactone) 50 MG tablet Take 1 tablet (50 mg) by mouth Once per day. 90 tablet 05/22/19 Active tamsulosin (Flomax) 0.4 MG 24 hr capsule Take 1 capsule (0.4 mg) by mouth Once per day. 90 capsule 3 05/22/19 Active torsemide (Demadex) 20 MG tablet Take 1 tablet (20 mg) by mouth 2 times daily. 180 tablet 3 05/22/19 25 Active venlafaxine XR (Effexor XR) 37.5 MG 24 hr capsule Take 1 capsule (37.5 mg) by mouth Once per day. 90 capsule 3 05/22/19 25 Active vilazodone (Viibryd) 20 MG tablet Take 2 tablets (40 mg) by mouth with evening meal. 7 tablet 3 05/22/19 25 Active zolpidem (Ambien) 10 MG tablet Take 1 tablet (10 mg) by mouth if needed at bedtime for sleep. 30 tablet 05/28/19 25 Active oxyCODONE (Oxy-IR) 5 MG immediate release capsuleIndicat ions:Other chronic pain Take 1 capsule (5 mg) by mouth every 6 (six) hours. 2 tablet in the morning for pain, 1 tablet tid 112 capsule 05/29/19 Active apixaban (Eliquis) 2.5 MG tablet Take 5 mg by mouth 2 times daily. 025 Discontinued(R eorder (will not trigger notification to Pharmacy)) venlafaxine XR (Effexor XR) 37.5 MG 24 hr capsule Take 1 capsule by mouth at bed time. 11/03/19 15 025 Discontinued(R eorder (will not trigger notification to Pharmacy)) zolpidem (Ambien) 10 MG tablet Take 1 tablet by mouth at bed time. 11/03/19 15 025 Discontinued(R eorder (will not trigger notification to Pharmacy)) dilTIAZem XR (Dilacor XR) 120 MG 24 hr capsule Take 1 capsule by mouth at bed time. 180mg daily 025 Discontinued(R eorder (will not trigger notification to Pharmacy)) acetaminophen (Tylenol) 325 MG capsule 025 Discontinued(R eorder (will not trigger notification to Pharmacy)) Albuterol Sulfate, sensor, (ProAir Digihaler) 108 (90 Base) MCG/ACT aerosol powder Inhale 2 puffs every 4 (four) hours. 025 Discontinued(R eorder (will not trigger notification to Pharmacy)) atorvastatin (Lipitor) 40 MG tablet Take 1 tablet by mouth at bed time. Discontinued(R eorder (will not trigger notification to Pharmacy)) cyclobenzaprin e (Flexeril) 10 MG tablet Take 1 tablet by mouth every 12 (twelve) hours. Discontinued(R eorder (will not trigger notification to Pharmacy)) digoxin (Lanoxin) 250 MCG tab;et Take 1 tablet by mouth at bed time. Discontinued(R eorder (will not trigger notification to Pharmacy)) potassium chloride CR (Klor-Con M20) 20 MEQ ER tablet Take 1 tablet by mouth at bed time. Discontinued(R eorder (will not trigger notification to Pharmacy)) Sennosides 8.6 MG capsule Take 2 capsules by mouth at bed time. Discontinued(R eorder (will not trigger notification to Pharmacy)) oxyCODONE (Oxy-IR) 5 MG immediate release capsule Take 1 capsule by mouth every 6 (six) hours. 2 tablet in the morning for pain, 1 tablet tid Discontinued(R eorder (will not trigger notification to Pharmacy)) vilazodone (Viibryd) 20 MG tablet Take 2 tablets by mouth at bed time. Discontinued(R eorder (will not trigger notification to Pharmacy)) gabapentin (Neurontin) 400 MG capsule Take 300 mg by mouth 3 times daily. Discontinued(R eorder (will not trigger notification to Pharmacy)) allopurinol (Zyloprim) 100 MG tablet Take 100 mg by mouth Once per day. Discontinued(R eorder (will not trigger notification to Pharmacy)) spironolactone (Aldactone) 50 MG tablet Take 50 mg by mouth Once per day. Discontinued(R eorder (will not trigger notification to Pharmacy)) omeprazole (PriLOSEC) [address] capsule Take 40 mg by mouth before breakfast. Do not crush or chew. Discontinued(R eorder (will not trigger notification to Pharmacy)) torsemide (Demadex) 20 MG tablet Take 20 mg by mouth 2 times daily. 025 Discontinued(R eorder (will not trigger notification to Pharmacy)) tamsulosin (Flomax) 0.4 MG 24 hr capsule Take 0.4 mg by mouth Once per day. 025 Discontinued(R eorder (will not trigger notification to Pharmacy)) oxyCODONE (Oxy-IR) 5 MG immediate release capsuleIndicat ions:Other chronic pain Take 1 capsule (5 mg) by mouth every 6 (six) hours. 2 tablet in the morning for pain, 1 tablet tid 15 capsule 05/27/19 25 025 Discontinued(R eorder (will not trigger notification to Pharmacy)) Active Problems Problem Noted Date Diagnosed Date Protein-calorie malnutrition, moderate Congestive heart failure, un specified HF chronicity, unspecified heart failure type 05/14/2024 Early onset Alzheimer's disease with behavioral disturbance 05/14/2024 Mood disorder 05/14/2024 Atrial fibrillation, chronic 05/14/2024 Alcohol dependence in remission 05/14/2024 Secondary hypercoagulable state 05/14/2024 BMI 40.0-44.9, adult 05/14/2024 Alcoholic hepatitis, unspecified whether ascites present 05/14/2024 Encounter for medical examination to establish c are 05/05/2024 Assessment & Plan (05/05/2024 11:21 AM EST): Patient lives on a senior living [facility] years [facility] Pmhx: Afib, severe neuropathy, Pshx: exploratory laparotomy due to obstruction 2019, stomach bypass 1994, deviated septum, prostate 1989', plantar fasciatis both feet, All:- Meds: as above Encounters Date Type Department Care Team Description 06/19/2024 Telephone [facility] MEDICINE [address] [place] [address] Rcik Arcos MD verbal order 06/19/2024 Telephone [facility] MEDICINE [address] [place] [address] Rick Arcos MD Nurse Triage 06/18/2024 Patient Outreach [facility] MED & PEDS [address] [place] [address] Rick Arcos MD Pre-visit Planning (SDOH will need to be completed in office. ) 06/10/2024 Telephone [facility] [address] [place] [address] Rick Arcos MD Record Request 06/09/2024 Telephone [facility] MEDICINE [address] [place] [address] Rick Arcos MD Care Coordination; Medication Question 06/05/2024 Telephone [facility] MEDICINE [address] [place] [address] Rick Arcos MD Verbal Orders 06/03/2024 Orders Only [facility] [address] [place] [address] Rick Arcos MD 06/03/2024 Telephone [facility] [address] [place] [address] Rick Arcos MD Prior Authorization 05/29/2024 Refill [facility] [address] [place] [address] Barbara Velazquez, RN Other chronic pain 05/28/2024 Telephone [facility] [address] [place] [address] Barbara Velazquez, RN 05/27/2024 Refill [facility] [address] [place] [address] Rick Arcos MD Other chronic pain (Primary Dx) 05/27/2024 Refill [facility] [address] [place] [address] Rick Arcos MD 05/22/2024 Orders Only [facility] [address] [place] [address] Rick Arcos MD Muscle spasm (Primary Dx) 05/11/2024 Telephone [facility] MEDICINE [address] [place] [address] Rick Arcos MD Medication Question 05/05/2024 10:45 AM EST Telemedicine [facility] [address] [place] [address] Rick Arcos MD Encounter for medical examination to establish care (Primary Dx); Screening for colon cancer; Protein-calorie malnutrition, moderate (CMS/HCC); Congestive heart failure, unspecified HF chronicity, unspecified heart failure type (CMS/HCC); Early onset Alzheimer's disease with behavioral disturbance (CMS/HCC); Mood disorder (CMS/HCC); Atrial fibrillation, chronic (CMS/HCC); Alcohol dependence in remission (CMS/HCC); Secondary hypercoagulable state (CMS/HCC); BMI 40.0-44.9, adult (CMS/HCC); Alcoholic hepatitis, unspecified whether ascites present 05/05/2024 Travel 04/15/2024 Patient Outreach [facility] MEDICINE [address] [place] [address] Barrington Morataya MD Transition Of Care (Tcm) (HDF- unscheduled) 04/15/2024 Telephone [facility] MEDICINE [address] [place] [phone] Barrington Morataya MD Hospital Follow-up 04/09/2024 Telephone [facility] MED[facility]INE [address] [place] [address] Barrington Morataya MD Appointment Request from Last 3 Months Family History Medical History Relation Name Comments Heart disease Father Dementia Mother Hypertension Mother Cancer Neg Hx Relation Name Status Comments Father Mother Social History Tobacco Use Types Packs/Day Years Used Date Smoking Tobacco: Never Smokeless Tobacco: Never Tobacco Cessation:Counseling Given: Not Answered Alcohol Use Standard Drinks/Week Comments Not Currently 0 (1 standard drink = 0.6 oz pur e alcohol) Sex and Gender Information Value Date Recorded Sex Assigned at Male 02/05/2022 10:20 AM EDT Legal Sex Male 10:20 AM EDT Gender Identity Male 02/05/2022 10:20 AM EDT Sexual Orientation Straight 02/05/2022 10 :20 AM EDT Plan of Treatment Upcoming Encounters Date Type Department Care Team ([facility] st Contact Info) Description 06/25/2024 10:45 AM EDT Office Visit [facility] [address] [place] [address] Rick Arcos MD [address] [place] [phone] Health Maintenance Due Date Last Done Comments CT Colonography 1958 Colonoscopy 1958 Colorectal Cancer Screening 1958 Dental Oral Exam 1958 Dental Prophylaxis 1958 Dental X-Ray: Bitewings 1958 Dental X-Ray: Full Mouth 1958 Depression Screening 1958 FIT DNA/Cologuard 1958 FIT 1958 FOBT 1958 Lipid Panel 1958 SDOH Screening 1958 Sigmoidoscopy 1958 Alcohol/Substance Use Screening 1970 Hepatitis C Screening 1976 DTaP/Tdap/Td Vaccines (1 - Tdap) 1977 Hepatitis A Vaccines (1 of 2 - Risk 2-dose series) 1977 Zoster Vaccines (1 of 2) 2008 Hepatitis B Vaccines (1 of 3 - Risk 3-dose series) 2018 RSV Patients and Patients Aged 60 years or older (1 - Risk 60-74 years 1-dose series) 2018 Pneumococcal Vaccine: 50+ Years (2 of 2 - PCV) 02/23/2019 02/23/2018, 09/27/2005 COVID-19 Vaccine (4 - 2023-2 5 season) 2023 08/10/2021, 08/18/2020, 07/21/2020 Influenza Vaccine (#1) 2023 6, 04/05/2010 Tobacco Screening 05/14/2025 05/14/2024 HIB Vaccines Aged Out No longer eligi ble based on patient's age to complete this topic HPV Vaccines Aged Out No longer eligi ble based on patient's age to complete this topic IPV Vaccines Aged Out No longer eligi ble based on patient's age to complete this topic Meningococcal Vaccine Aged Out No corky srinivasa eligible based on patient's age to complete this topic RSV under 20 months Aged Out No longe r eligible based on patient's age to complete this topic Rotavirus Vaccines Aged Out No longer eligible based on patient's age to complete this topic Procedures Procedure Name Priority Date/Time Associated Diagnosis Comments LAB COLOGUARD?? COLON CANCER SCREEN- Unsuccessful Attempt Routine 05/31/2024 1:24 AM EST Screening for colon cancer LAB COLOGUARD?? COLON CANCER SCREEN- Unsuccessful Attempt Routine 05/19/2024 3:55 PM EST Screening for colon cancer from Last 3 Months Results * Cologuard?? colon cancer screening (05/31/2024 1:24 AM EST) - Unsuccessful Attempt Only the most recent of2 resultswithin the time period is included. Cologuard Result Sample Could Not Be Processed 9 N/A 05/31/2024 1:24 AM EST [facility] (CLIA #:[id number]) Comment:An empty collection kit was received in the laboratory. The patient will be contacted to initiate a new sample collection. Stool specimen (specimen) Rectal contents / Unknown 05/30/2024 10:41 AM EST Rick Genao MD LAB MOLECULAR DIAG NOSTICS ORDERABLES Final Result [facility] (CLIA #:[id number]) [address] [place] [address], from Last 3 Months Insurance [employer]IC[employer] [place] AD[place] Care Teams Delivery Specialist Relationship Specialty Start Date End Date Rick Arcos MD [address] [place] [phone] PCP - General Internal Medicine 05/28/24 Rodrick Arguello 06/09/24
--- OUTSIDE RECORDS SUMMARY | 2024-06-19 13:56 | XMS_ITS | Clinical Summary ---
Author Organization [facility] Address [address] [place] [address] Care Team Providers Care Pressroom Supervisor Name Role Phone Bambi Machuca MD Primary Care Provider [phone] Social History Tobacco Use Types Packs/Day Years Used Date Smoking Tobacco: Never Assessed Sex and Gender Information Value Date Recorded Sex Assigned at Not on file Legal Sex Male 9:53 AM EST Gender Identity Not on file Sexual Orientation Not on file Plan of Treatment Health Maintenance Due Date Last Done Comments Colorectal Cancer Screening: Annual FOBT 2007 Colorectal Cancer Screening: Colonoscopy 2007 Colorectal Cancer Screening: Sigmoidoscopy 2007 Pneumococcal Vaccine: 65+ Ye ars (1 of 1 - PCV) 2023 Influenza Vaccine (#1) 2023 Hepatitis B Vaccine Aged Out No longe r eligible based on patient's age to complete this [place] [address] MEDICARE [place]ID [place] Care Teams Pressroom Supervisor Relationship Specialty Start Date End Date Bambi Machuca MD [address] [place], [place] PCP - General Internal Medicine 04/24/22
--- OUTSIDE RECORDS SUMMARY | 2024-06-19 13:56 | XMS_ITS | Encounter Summary ---
Author Organization [employer] Address [address] [place] [address] [address] [place] [address] Care Team Providers Care Publication Designer Name Role Phone Rick Arcos MD Primary Care Prov ider Reason for Visit * Reason Onset Date Comments Med Refill 05/27/2024 Encounter Details Date Type Department Care Team ([facility] st Contact Info) Description 05/27/2024 Refill [facility] MED [facility] PEDS [address] [place], [place] [phone] Rick Arcos MD [address] [place] [address] Social History Tobacco Use Types Packs/Day Years [...] Encounter - Barbara Velazquez RN - 05/28/2024 10:14 AM EST Tc back to pt. Pt stated she takes Oxycodone 5mg 5 tab/ day. Asking for a full month supply. * Telephone Encounter - Nathalie Campos - 05/27/2024 1:07 PM EST TC from pt requesting medication refill. Medications needing refill : zolpidem (Ambien) 10 MG tablet To be sent to: [facility] - [place], [place] - [address] [facility] documented in this encounter Plan of Treatment Upcoming Encounters Date Type Department Care Team ([facility] st Contact Info) Description 06/25/2024 10:45 AM EDT Office Visit [facility] MED [facility] PEDS [address] [place] [address] Rick Arcos MD [address] [place] [address] documented as of this encounter Visit Diagnoses Not on filedocumented in this encounter Care Teams Publication Designer Relationship Specialty Start Date End Date Rick Arcos MD [address] [place] [address] PCP - General Internal Medicine 05/28/24 documented as of this encounter
--- OUTSIDE RECORDS SUMMARY | 2024-06-19 13:56 | XMS_ITS | Encounter Summary ---
Author Organization [facility] Address [address] [place] [phone] Care Team Providers Care Mitochondrial Disorders Counselor Name Role Phone Maty Darnell MD Primary Care Provider [phone] Encounter Details Date Type Department Care Team (Late st Contact Info) Description 05/25/2024 Lab Requisition [facility] - Main Lab [address] [place] [address] Herminio Lee MD [address] [place] [address] Essential (primary) hypertension; Fever, unspecified Social History Tobacco Use Types Packs/Day Years Used Date Smoking Tobacco: Never Smokeless Tobacco: Never Alcohol Use Standard Drinks/Week Comments No 0 (1 standard drink = 0.6 oz pur e alcohol) Sex and Gender Information Value Date Recorded Sex Assigned at Not on file Legal Sex Male 2:10 AM EST Gender Identity Not on file Sexual Orientation Not on file documented as of this encounter Plan of Treatment Not on file documented as of this encounter Procedures Procedure Name Priority Date/Time Associated Diagnosis Comments COMPLETE BLOOD COUNT Routine 05/25/2024 7:40 AM EST Essential (primary) hypertension Fever, unspecified BASIC METABOLIC PANEL Routine 05/25/2024 7:40 AM EST Essential (primary) hypertension Fever, unspecified documented in this encounter Results * (ABNORMAL) Basic metabolic panel (05/25/2024 7:40 AM EST) Sodium 136 133 - 145 mmol/L LAB CHEMISTRY METHOD 05/25/2024 11:48 AM EST [facility] Potassium 4.3 3.5 - 5.5 mmol/L LAB CHEMISTRY METHOD 05/25/2024 11:48 AM [facility] Chloride 101 96 - 110 mmol/L LAB CHEMISTRY METHOD 05/25/2024 11:48 AM [facility] CO2 24 21 - 32 mmol/L LAB CHEMISTRY METHOD 05/25/2024 11:48 AM [facility] Anion Gap 11 3 - 11 LAB CHEMISTRY METHOD 05/25/2024 11:48 AM [facility] Glucose 95 70 - 100 mg/dL LAB CHEMISTRY METHOD 05/25/2024 11:48 AM [facility] BUN 21 5 - 25 mg/dL LAB CHEMISTRY METHOD 05/25/2024 11:48 AM [facility] Creatinine 1.36(H) 0.70 - 1.30 mg/dL LAB CHEMISTRY METHOD 05/25/2024 11:48 AM [facility] eGFR 57(L) >=60 mL/min/1. 73m2 LAB CHEMISTRY METHOD 05/25/2024 11:48 AM [facility] Comment:Calculation based on the??Chronic Kidney Disease Epidemiology Collaboration (CKD-EPI) equation refit??without adjustment for race. BUN/Creatinine Ratio 15.4 LAB CHEMISTRY METHOD 05/25/2024 11:48 AM [facility] Calcium 8.1(L) 8.5 - 10.5 mg/dL LAB CHEMISTRY METHOD 05/25/2024 11:48 AM [facility] Blood Venous blood specimen / Unknown Venipuncture / Unknown 05/25/2024 7:40 AM EST 05/25/2024 10:32 AM EST us Herminio Lee MD LAB BLOOD ORDERABLES Final R esult [facility] LAB [address] [place] [address], * (ABNORMAL) Complete blood count (05/25/2024 7:40 AM EST) [facility] WBC 7.4 4.8 - 10.8 K/mcL LAB HEMETOLOGY METHOD 05/25/2024 11:44 AM [facility] RBC 3.90(L) 4.50 - 5.50 M/mcL LAB HEMETOLOGY METHOD 05/25/2024 11:44 AM [facility] Hemoglobin 11.4(L) 13.5 - 17.5 g/dL LAB HEMETOLOGY METHOD 05/25/2024 11:44 AM [facility] Hematocrit 36.9(L) 42.0 - 54.0 % LAB HEMETOLOGY METHOD 05/25/2024 11:44 AM [facility] MCV 95.3 79.0 - 98.0 FL LAB HEMETOLOGY METHOD 05/25/2024 11:44 AM [facility] MCH 29.5 27.0 - 32.0 pcg LAB HEMETOLOGY METHOD 05/25/2024 11:44 AM [facility] MCHC 30.9(L) 32.0 - 37.0 g/dL LAB HEMETOLOGY METHOD 05/25/2024 11:44 AM [facility] RDW 15.0 11.0 - 15.0 % LAB HEMETOLOGY METHOD 05/25/2024 11:44 AM [facility] Platelets 164 130 - 400 K/mcL LAB HEMETOLOGY METHOD 05/25/2024 11:44 AM [facility] MPV 11.5(H) 7.0 - 11.0 FL LAB HEMETOLOGY METHOD 05/25/2024 11:44 AM [facility] NRBC 0.0 <1.0 % LAB HEMETOLOGY METHOD 05/25/2024 11:44 AM [facility] NRBC Absolute 0.00 <0.10 K/mcL LAB HEMETOLOGY METHOD 05/25/2024 11:44 AM EST [facility] Blood Venous blood specimen / Unknown Venipuncture / Unknown 05/25/2024 7:40 AM EST 05/25/2024 10:32 AM EST us Herminio Lee MD LAB BLOOD ORDERABLES Final R esult [facility] [address] [place] [address], documented in this encounter Visit Diagnoses Diagnosis Essential (primary) hypertension Unspecified essential hypertension Fever, unspecified documented in this encounter Additional Health Concerns Infection Onset Date Last Indicated Resolved Time Respiratory Rule-Out 05/26/2024 05/26/2024 025 3:08 PM EST Influenza 05/26/2024 05/26/2024 documented as of this encounter Care Teams Mitochondrial Disorders Counselor Relationship Specialty Start Date End Date Maty Darnell MD [address] [place] [address] [address] ANNEL Arguello PCP - General Internal Medicine 10/24/19 documented as of this encounter
--- OUTSIDE RECORDS SUMMARY | 2024-06-19 13:56 | XMS_ITS | Encounter Summary ---
Author Organization [employer] Address [address] [facility] 7t [place] [address] Care Team Providers Care Planer Offbearer Name Role Phone Rick Arcos MD Primary Care Prov ider Reason for Visit * Reason Onset Date Comments Nurse Triage 06/19/2024 Encounter Details Date Type Department Care Team (Late st Contact Info) Description 06/19/2024 Telephone [facility] MEDICINE [address] [place] [address] Rick Arcos MD [address] [place], [place] [phone] Nurse Triage Social History Tobacco Use Types Packs/Day Years [...] encounter Miscellaneous Notes * Telephone Encounter - Irma Shahid RN - 06/19/2024 10:44 AM EDT Pt. Discharged from [place] on 06/08/24 according to TC note on 06/10/24. Pt. Was also made a pre- visit planning call yesterday for upcoming appt. On 06/25/24. Called pt. He states that he was admitted [place] [facility] [place]18[place]24 for Neuropathy of right leg. Pt was sent home on pain medication and antibiotics. Pt is still in pain. Leg red, lesions on leg, swelling and toes are turning purple. I advised pt. That he needs to go back to [facility] for evaluation. Pt. Agrees with plan and will go back to [facility]. Pt. Does Not have Diabetes. Protocol Used: Leg Swelling and Edema (Adult) Protocol-Based Disposition: Go to ED Now. Pt. Will go to [facility]. Positive Triage Questions: * Entire foot is cool or blue in comparison to other side * Can't walk or can barely stand (new-onset) * Severe swelling (e.g., swelling extends above knee, entire leg is swollen, weeping fluid) * All higher-acuity triage questions were negative * Telephone Encounter - Marcio Moreno - 06/19/2024 10:19 AM EDT Symptom: Leg Pain - Not From Injury Outcome: Schedule an urgent appointment (within 1 hour) or talk to a nurse or provider soon Reason: Trouble walking The caller accepted this outcome. Contact pt at [phone] documented in this encounter Plan of Treatment Upcoming Encounters Date Type Department Care Team (Late st Contact Info) Description 06/25/2024 10:45 AM EDT Office Visit [facility] MED & PEDS [address] [place] [address] Rick Arcos MD [address] [place] [address] documented as of this encounter Visit Diagnoses Not on filedocumented in this encounter Care Teams Planer Offbearer Relationship Specialty Start Date End Date Rick Arcos MD [address] [place] [address] PCP - General Internal Medicine 05/28/24 Rodrick Arguello 06/09/24 documented as of this encounter
--- OUTSIDE RECORDS SUMMARY | 2024-06-19 13:56 | XMS_ITS | Encounter Summary ---
Author Organization [employer] Address [address] [place] [address] [address] [place] [address] Care Team Providers Care Mammalogist Name Role Phone Rick Arcos MD Primary Care Prov ider Reason for Visit * Reason Onset Date Comments Hospital Follow-up 04/15/2024 Encounter Details Date Type Department Care Team (Late st Contact Info) Description 04/15/2024 Telephone [facility] MEDICINE [address] [place], [place] [phone] Barrington Morataya MD [address] [place], [place] [phone] Hospital Follow-up Social History Tobacco Use Types Packs/Day Years Used Date Smoking Tobacco: Never Assessed Sex and Gender Information Value Date Recorded Sex Assigned at Male 02/05/2022 10:20 AM EDT Legal Sex Male 10:20 AM EDT Gender Identity Male 02/05/2022 10:20 AM EDT Sexual Orientation Straight 02/05/2022 10 :20 AM EDT documented as of this encounter Miscellaneous Notes * Telephone Encounter - Tadeo Lincoln - 04/15/2024 11:44 AM EST Tc from pt requesting a HDF appt. Hospital: [facility] Date of admission: 03/17/2024 Discharge date: 05/09/2024 Diagnosed: Discuss with pt. *Send message to [place] Clinical Care Coordinators documented in this encounter Plan of Treatment Upcoming Encounters Date Type Department Care Team (Late st Contact Info) Description 06/25/2024 10:45 AM EDT Office Visit [facility] MED [facility] PEDS [address] [place] [address] Rick Arcos MD [address] [place] [address] documented as of this encounter Visit Diagnoses Not on filedocumented in this encounter Care Teams Mammalogist Relationship Specialty Start Date End Date Rick Arcos MD [address] [place] [address] PCP - General Internal Medicine 05/28/24 Rodrick Arguello 06/09/24 documented as of this encounter
--- OUTSIDE RECORDS SUMMARY | 2024-06-19 13:56 | XMS_ITS | Encounter Summary ---
Author Organization [facility] [employer] Address [address] [place] [address] 7 [place] [address] Care Team Providers Care Rotoprinter Name Role Phone Rick Arcos MD Primary Care Prov ider Encounter Details Date Type Department Care Team (Late Contact Info) Description 06/03/2024 Orders Only [facility] MED [facility] PEDS [address] [place] [address] Rick Arcos MD [address] [place] [address] Social History Tobacco Use Types Packs/Day Years [...] Description 06/25/2024 10:45 AM EDT Office Visit [facility]S [address] [place] [address] Rick Arcos MD [address] [place], [place] [phone] documented as of this encounter Visit Diagnoses Not on filedocumented in this encounter Care Teams Rotoprinter Relationship Specialty Start Date End Date Rick Arcos MD [address] [place] [address] PCP - General Internal Medicine 05/28/24 Rodrick Arguello 06/09/24 documented as of this encounter
--- OUTSIDE RECORDS SUMMARY | 2024-06-19 13:56 | XMS_ITS | Clinical Summary ---
Author Organization [facility] Address [address] [place] [address] Care Team Providers Care Customer Sales Specialist Name Role Phone Provider, Marlee MCKEE Primary Care Provider Un available Immunizations Name Administration Dates Next Due Influenza Inactivated/Split Preservative Free IM 04/05/2010 Social History Tobacco Use Types Packs/Day Years Used Date Smoking Tobacco: Never Assessed Sex and Gender Information Value Date Recorded Sex Assigned at Not on file Gender Identity Not on file Sexual Orientation Not on file Last Filed Vital Signs Vital Sign Reading Time Taken Comments Blood Pressure 120/70 08/11/2010 3:49 PM EDT Pulse 84 08/11/2010 3:49 PM EDT Temperature 36.9 ??C (98.5 ??F) 08/07/2010 11:40 AM E DT Respiratory Rate 16 08/11/2010 3:49 PM EDT Oxygen Saturation - - Inhaled Oxygen Concentration - - Weight 125 kg (275 lb) 08/11/2010 3:49 PM EDT Height - - Body Mass Index - - Plan of Treatment Health Maintenance Due Date Last Done Comments Hepatitis C Virus Screening 1958 HIV Screening 1971 DTaP/Tdap/Td Vaccines (1 - Tdap) 1977 Pneumococcal Vaccines 50+ (1 of 1 - PCV) 2008 Zoster (Shingles) Vaccine (1 of 2) 2008 COVID-19 Vaccine ( - 2023-2 5 season) 2023 RSV Vaccine 60 years and old er and Patients (1 - 1-dose 75+ series) 2033 Hepatitis B Vaccines Aged Out No long er eligible based on patient's age to complete this topic Care Teams Customer Sales Specialist Relationship Specialty Start Date End Date Marlee Lipscomb MD PCP - General 07/16/13
--- OUTSIDE RECORDS SUMMARY | 2024-06-19 13:56 | XMS_ITS | Encounter Summary ---
Author Organization [facility] Address [address] [place] [phone] Care Team Providers Care Skiver Heel Tap Name Role Phone Maty Darnell MD Primary Care Provider [phone] Encounter Details Date Type Department Care Team (Late st Contact Info) Description 04/02/2024 Lab Requisition [facility] - Main Lab [address] [place] [address] Herminio Lee MD [address] [place], [place] [phone] Unspecified atrial fibrillation (CMS/HCC) Social History Tobacco Use Types Packs/Day Years [...] Associated Diagnosis Comments COMPLETE BLOOD COUNT Routine 04/03/2024 7:26 AM EST Unspecified atrial fibrillation (CMS/HCC) COMPREHENSIVE METABOLIC PANEL Routine 04/03/2024 7:26 AM EST Unspecified atrial fibrillation (CMS/HCC) documented in this encounter Results * (ABNORMAL) Comprehensive metabolic panel (04/03/2024 7:26 AM EST) Sodium 139 133 - 145 mmol/L LAB CHEMISTRY METHOD 04/03/2024 10:04 AM EST [facility] Potassium 4.4 3.5 - 5.5 mmol/L LAB CHEMISTRY METHOD 04/03/2024 10:04 AM [facility] LAB Comment:Hemolysis present Chloride 107 96 - 110 mmol/L LAB CHEMISTRY METHOD 04/03/2024 10:04 AM [facility] CO2 28 21 - 32 mmol/L LAB CHEMISTRY METHOD 04/03/2024 10:04 AM [facility] Anion Gap 4 3 - 11 LAB CHEMISTRY METHOD 04/03/2024 10:04 AM [facility] Glucose 85 70 - 100 mg/dL LAB CHEMISTRY METHOD 04/03/2024 10:04 AM [facility] BUN 18 5 - 25 mg/dL LAB CHEMISTRY METHOD 04/03/2024 10:04 AM [facility] Creatinine 1.03 0.70 - 1.30 mg/dL LAB CHEMISTRY METHOD 04/03/2024 10:04 AM [facility] eGFR 81 >=60 mL/min/1. 73m2 LAB CHEMISTRY METHOD 04/03/2024 10:04 AM [facility] Comment:Calculation based on the??Chronic Kidney Disease Epidemiology Collaboration (CKD-EPI) equation refit??without adjustment for race. BUN/Creatinine Ratio 17.5 LAB CHEMISTRY METHOD 04/03/2024 10:04 AM [facility] Calcium 8.7 8.5 - 10.5 mg/dL LAB CHEMISTRY METHOD 04/03/2024 10:04 AM [facility] AST (SGOT) 27 10 - 42 unit/L LAB CHEMISTRY METHOD 04/03/2024 10:04 AM [facility] Comment:Hemolysis present ALT (SGPT) 22 10 - 60 unit/L LAB CHEMISTRY METHOD 04/03/2024 10:04 AM [facility] Alkaline Phosphatase 96 42 - 121 unit/L LAB CHEMISTRY METHOD 04/03/2024 10:04 AM [facility] Total Protein 7.0 6.0 - 8.0 g/dL LAB CHEMISTRY METHOD 04/03/2024 10:04 AM [facility] Albumin 3.1(L) 3.2 - 5.0 g/dL LAB CHEMISTRY METHOD 04/03/2024 10:04 AM [facility] Total Bilirubin 0.3 0.0 - 1.4 mg/dL LAB CHEMISTRY METHOD 04/03/2024 10:04 AM [facility] Blood Venous blood specimen / Unknown Venipuncture / Unknown 04/03/2024 7:26 AM EST 04/03/2024 9:41 AM EST us Herminio Lee MD LAB BLOOD ORDERABLES Final R esult [facility] [address] [place] [address], * (ABNORMAL) Complete blood count (04/03/2024 7:26 AM EST) WBC 7.0 4.8 - 10.8 K/mcL LAB HEMETOLOGY METHOD 04/03/2024 9:49 AM [facility] RBC 4.00(L) 4.50 - 5.50 M/mcL LAB HEMETOLOGY METHOD 04/03/2024 9:49 AM [facility] Hemoglobin 12.2(L) 13.5 - 17.5 g/dL LAB HEMETOLOGY METHOD 04/03/2024 9:49 AM [facility] Hematocrit 40.3(L) 42.0 - 54.0 % LAB HEMETOLOGY METHOD 04/03/2024 9:49 AM [facility] MCV 100.0(H) 79.0 - 98.0 FL LAB HEMETOLOGY METHOD 04/03/2024 9:49 AM [facility] MCH 30.3 27.0 - 32.0 pcg LAB HEMETOLOGY METHOD 04/03/2024 9:49 AM EST [facility] MCHC 30.3(L) 32.0 - 37.0 g/dL LAB HEMETOLOGY METHOD 04/03/2024 9:49 AM [facility] RDW 15.3(H) 11.0 - 15.0 % LAB HEMETOLOGY METHOD 04/03/2024 9:49 AM [facility] Platelets 326 130 - 400 K/mcL LAB HEMETOLOGY METHOD 04/03/2024 9:49 AM EST [facility] MPV 10.2 7.0 - 11.0 FL LAB HEMETOLOGY METHOD 04/03/2024 9:49 AM [facility] NRBC 0.0 <1.0 % LAB HEMETOLOGY METHOD 04/03/2024 9:49 AM [facility] NRBC Absolute 0.00 <0.10 K/mcL LAB HEMETOLOGY METHOD 04/03/2024 9:49 AM [facility] Blood Venous blood specimen / Unknown Venipuncture / Unknown 04/03/2024 7:26 AM EST 04/03/2024 9:42 AM EST us Herminoi Lee MD LAB BLOOD ORDERABLES Final R esult [facility] [address] [place] [address], documented in this encounter Visit Diagnoses Diagnosis Unspecified atrial fibrillation (CMS/HCC) documented in this encounter Additional Health Concerns Infection Onset Date Last Indicated Resolved Time Respiratory Rule-Out 05/26/2024 05/26/2024 025 3:08 PM EST Influenza 05/26/2024 05/26/2024 documented as of this encounter Care Teams Skiver Heel Tap Relationship Specialty Start Date End Date Maty Darnell MD [address] [place] PCP - General Internal Medicine 10/24/19 documented as of this encounter
--- OUTSIDE RECORDS SUMMARY | 2024-06-19 13:56 | XMS_ITS | Encounter Summary ---
Author Organization [facility] Address [address] [place] [phone] Care Team Providers Care Nougat Candy Maker Helper Name Role Phone Maty Darnell MD Primary Care Provider [phone] Encounter Details Date Type Department Care Team (Late st Contact Info) Description 03/26/2024 Lab Requisition [facility] - Main Lab [address] [facility] [place] [address] Herminio Lee MD [address] [place] [address] Cellulitis, unspecified; Unspecified atrial fibrillation (CMS/HCC); Other [place] [facility] (current[facility] drug therapy Social History Tobacco Use Types Packs/Day Years [...] Associated Diagnosis Comments COMPLETE BLOOD COUNT Routine 03/26/2024 8:15 AM EST Cellulitis, unspecified Unspecified atrial fibrillation (CMS/HCC) Other [place] [facility] (current) drug therapy BASIC METABOLIC PANEL Routine 03/26/2024 8:15 AM EST Cellulitis, unspecified Unspecified atrial fibrillation (CMS/HCC) Other intermediate card tender (current) drug therapy documented in this encounter Results * Basic metabolic panel (03/26/2024 8:15 AM EST) Sodium 140 133 - 145 mmol/L LAB CHEMISTRY METHOD 03/26/2024 1:05 PM [facility] Potassium 4.1 3.5 - 5.5 mmol/L LAB CHEMISTRY METHOD 03/26/2024 1:05 PM [facility] Chloride 103 96 - 110 mmol/L LAB CHEMISTRY METHOD 03/26/2024 1:05 PM [facility] CO2 30 21 - 32 mmol/L LAB CHEMISTRY METHOD 03/26/2024 1:05 PM [facility] Anion Gap 7 3 - 11 LAB CHEMISTRY METHOD 03/26/2024 1:05 PM [facility] Glucose 88 70 - 100 mg/dL LAB CHEMISTRY METHOD 03/26/2024 1:05 PM [facility] BUN 13 5 - 25 mg/dL LAB CHEMISTRY METHOD 03/26/2024 1:05 PM [facility] Creatinine 0.95 0.70 - 1.30 mg/dL LAB CHEMISTRY METHOD 03/26/2024 1:05 PM [facility] eGFR 89 >=60 mL/min/1. 73m2 LAB CHEMISTRY METHOD 03/26/2024 1:05 PM [facility] Comment:Calculation based on the??Chronic Kidney Disease Epidemiology Collaboration (CKD-EPI) equation refit??without adjustment for race. BUN/Creatinine Ratio 13.7 LAB CHEMISTRY METHOD 03/26/2024 1:05 PM [facility] Calcium 8.7 8.5 - 10.5 mg/dL LAB CHEMISTRY METHOD 03/26/2024 1:05 PM [facility] Blood Venous blood specimen / Unknown Venipuncture / Unknown 03/26/2024 8:15 AM EST 03/26/2024 11:31 AM EST us Herminio Lee MD LAB BLOOD ORDERABLES Final R esult [facility] [address] [place] [address], * (ABNORMAL) Complete blood count (03/26/2024 8:15 AM EST) [facility] WBC 6.6 4.8 - 10.8 K/mcL LAB HEMETOLOGY METHOD 03/26/2024 12:43 PM [facility] RBC 4.20(L) 4.50 - 5.50 M/mcL LAB HEMETOLOGY METHOD 03/26/2024 12:43 PM [facility] Hemoglobin 12.8(L) 13.5 - 17.5 g/dL LAB HEMETOLOGY METHOD 03/26/2024 12:43 PM [facility] Hematocrit 42.1 42.0 - 54.0 % LAB HEMETOLOGY METHOD 03/26/2024 12:43 PM [facility] MCV 101.0(H) 79.0 - 98.0 FL LAB HEMETOLOGY METHOD 03/26/2024 12:43 PM [facility] MCH 30.7 27.0 - 32.0 pcg LAB HEMETOLOGY METHOD 03/26/2024 12:43 PM [facility] MCHC 30.4(L) 32.0 - 37.0 g/dL LAB HEMETOLOGY METHOD 03/26/2024 12:43 PM [facility] RDW 15.3(H) 11.0 - 15.0 % LAB HEMETOLOGY METHOD 03/26/2024 12:43 PM [facility] Platelets 246 130 - 400 K/mcL LAB HEMETOLOGY METHOD 03/26/2024 12:43 PM [facility] MPV 10.5 7.0 - 11.0 FL LAB HEMETOLOGY METHOD 03/26/2024 12:43 PM [facility] NRBC 0.0 <1.0 % LAB HEMETOLOGY METHOD 03/26/2024 12:43 PM EST [facility] NRBC Absolute 0.00 <0.10 K/[facility] LAB HEMETOLOGY METHOD 03/26/2024 12:43 PM EST [facility] Blood Venous blood specimen / Unknown Venipuncture / Unknown 03/26/2024 8:15 AM EST 03/26/2024 11:31 AM EST us Herminio Lee MD LAB BLOOD ORDERABLES Final R esult [facility] [address] [place] [address], documented in this encounter Visit Diagnoses Diagnosis Cellulitis, unspecified Unspecified atrial fibrillation (CMS/HCC) Other intermediate card tender (current) drug therapy documented in this encounter Additional Health Concerns Infection Onset Date Last Indicated Resolved Time Respiratory Rule-Out 05/26/2024 05/26/2024 025 3:08 PM EST Influenza 05/26/2024 05/26/2024 documented as of this encounter Care Teams Nougat Candy Maker Helper Relationship Specialty Start Date End Date Maty Darnell MD [address] [place] [address] [address] ANNEL Arguello PCP - General Internal Medicine 10/24/19 documented as of this encounter
--- OUTSIDE RECORDS SUMMARY | 2024-06-19 13:56 | XMS_ITS | Clinical Summary ---
Author Organization [address] Address [address] [place] [address] Phone Care Team Providers Care Launch Operator Name Role Phone Maty Darnell MD Primary Care Provider [phone] Encounters Date Type Department Care Team Description 06/01/2024 Lab Requisition [facility] [address] [place] [phone] Herminio Lee MD Shortness of breath 05/26/2024 Lab Requisition [facility] [address] [place] [phone] Herminio Lee MD Acute cough; Fever, unspecified 05/25/2024 Lab Requisition [facility] [address] [place] [phone] Herminio Lee MD Essential (primary) hypertension; Fever, unspecified 04/02/2024 Lab Requisition [facility] [address] [place] [phone] Herminio Lee MD Unspecified atrial fibrillation (CMS/HCC) 03/26/2024 Lab Requisition [facility] [address] [place] [phone] Herminio Lee MD Cellulitis, unspecified; Unspecified atrial fibrillation (CMS/HCC); Other detention (current) drug therapy from Last 3 Months Medical History Medical History Date Comments A-fib (CMS/HCC) DX:A-fib (HCC) Hypertension DX:Hypertension HLD (hyperlipidemia) DX:HLD (hyp erlipidemia) Anxiety DX:Anxiety Family History Medical History Relation Name Comments No Known Problems Father No Known Problems Mother Relation Name Status Comments Father Mother [...] on file Sexual Orientation Not on file Obstetrics History Plan of Treatment Health Maintenance Due Date Last Done Comments DTaP,Tdap,and Td Vaccines (1 - Tdap) 1977 Hepatitis A Vaccines (1 of 2 - Risk 2-dose series) 1977 Zoster Vaccines (1 of 2) 1977 Hepatitis B Vaccines (1 of 3 - Risk 3-dose series) 2018 RSV Immunization Patients 60+ Years Old (1 - Risk 60-74 years 1-dose series) 2018 Pneumococcal Vaccine: 50+ Years (2 of 2 - PCV) 02/23/2019 02/23/2018, 09/27/2005 Cholesterol Screening (Lipid Panel) 03/11/2022 Colorectal Cancer Screening: Colonoscopy 03/11/2022 Depression Screening 03/11/2022 Hepatitis C Screening 03/11/2022 Medicare Annual Wellness Visit 03/11/2022 Social Influencers of Health Screening 03/11/2022 Falls Risk Assessment 2023 COVID-19 Vaccine ( season) 2023 08/10/2021, 08/18/2020, 07/21/2020 Influenza Vaccine (#1) 2023 01/09/2016, 2009 Hypertension/CHF/CAD Annual BMP Blood Test 06/01/2025 06/01/2024, 05/25/2024, 04/03/2024, Additional history exists HIB Vaccines Aged Out No longer eligi ble based on patient's age to complete this topic HPV Vaccines Aged Out No longer eligi ble based on patient's age to complete this topic IPV Vaccines Aged Out No longer eligi ble based on patient's age to complete this topic MMR Vaccines Aged Out No longer eligi ble based on patient's age to complete this topic Meningococcal ACWY Vaccine Aged Out N o longer eligible based on patient's age to complete this topic Meningococcal B Vacine Aged Out No lo nger eligible based on patient's age to complete this topic RSV Immunization Patients Under 20 months Aged Out No longer eligible based on patient's age to complete this topic Varicella Vaccines Aged Out No longer eligible based on patient's age to complete this topic Procedures Procedure Name Priority Date/Time Associated Diagnosis Comments BASIC METABOLIC PANEL Routine 06/01/2024 10:03 AM EST Shortness of breath COMPLETE BLOOD COUNT Routine 06/01/2024 10:03 AM EST Shortness of breath [id number], RSV, FLU A AND B QUALITATIVE RT-PCR, LOCAL REFERENCE LAB Routine 05/26/2024 7:00 AM EST Acute cough Fever, unspecified BASIC METABOLIC PANEL Routine 05/25/2024 7:40 AM EST Essential (primary) hypertension Fever, unspecified COMPLETE BLOOD COUNT Routine 05/25/2024 7:40 AM EST Essential (primary) hypertension Fever, unspecified COMPREHENSIVE METABOLIC PANEL Routine 04/03/2024 7:26 AM EST Unspecified atrial fibrillation (CMS/HCC) COMPLETE BLOOD COUNT Routine 04/03/2024 7:26 AM EST Unspecified atrial fibrillation (CMS/HCC) BASIC METABOLIC PANEL Routine 03/26/2024 8:15 AM EST Cellulitis, unspecified Unspecified atrial fibrillation (CMS/HCC) Other detention (current) drug therapy COMPLETE BLOOD COUNT Routine 03/26/2024 8:15 AM EST Cellulitis, unspecified Unspecified atrial 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 WBC 8.8 4.8 - 10.8 K/[facility] LAB HEMETOLOGY METHOD 06/01/2024 1:47 PM [facility] RBC 4.30(L) 4.50 - 5.50 M/mcL LAB HEMETOLOGY METHOD 06/01/2024 1:47 PM [facility] Hemoglobin 12.6(L) 13.5 - 17.5 g/dL LAB HEMETOLOGY METHOD 06/01/2024 1:47 PM [facility] Hematocrit 40.6(L) 42.0 - 54.0 % LAB HEMETOLOGY METHOD 06/01/2024 1:47 PM [facility] MCV 94.9 79.0 - 98.0 FL LAB HEMETOLOGY METHOD 06/01/2024 1:47 PM [facility] MCH 29.4 27.0 - 32.0 pcg LAB HEMETOLOGY METHOD 06/01/2024 1:47 PM [facility] MCHC 31.0(L) 32.0 - 37.0 g/dL LAB HEMETOLOGY METHOD 06/01/2024 1:47 PM [facility] RDW 15.2(H) 11.0 - 15.0 % LAB HEMETOLOGY METHOD 06/01/2024 1:47 PM [facility] Platelets 282 130 - 400 K/mcL LAB HEMETOLOGY METHOD 06/01/2024 1:47 PM [facility] MPV 10.6 7.0 - 11.0 FL LAB HEMETOLOGY METHOD 06/01/2024 1:47 PM [facility] NRBC 0.0 <1.0 % LAB HEMETOLOGY METHOD 06/01/2024 1:47 PM [facility] LAB NRBC Absolute 0.00 <0.10 K/mcL LAB HEMETOLOGY METHOD 06/01/2024 1:47 PM [facility] Blood Venous blood specimen / Unknown Venipuncture / Unknown 06/01/2024 10:03 AM EST 06/01/2024 11:00 AM EST us Herminio Lee MD LAB BLOOD ORDERABLES Final R esult [facility] [address] [place] [address], [place] [phone] * Basic metabolic panel (06/01/2024 10:03 AM EST) Only the most recent of3 resultswithin the time period is included. Sodium 141 133 - 145 mmol/L LAB CHEMISTRY METHOD 06/01/2024 12:30 PM [facility] Potassium 4.4 3.5 - 5.5 mmol/L LAB CHEMISTRY METHOD 06/01/2024 12:30 PM [facility] Chloride 107 96 - 110 mmol/L LAB CHEMISTRY METHOD 06/01/2024 12:30 PM [facility] CO2 25 21 - 32 mmol/L LAB CHEMISTRY METHOD 06/01/2024 12:30 PM [facility] Anion Gap 9 3 - 11 LAB CHEMISTRY METHOD 06/01/2024 12:30 PM [facility] Glucose 79 70 - 100 mg/dL LAB CHEMISTRY METHOD 06/01/2024 12:30 PM [facility] BUN 18 5 - 25 mg/dL LAB CHEMISTRY METHOD 06/01/2024 12:30 PM [facility] Creatinine 1.16 0.70 - 1.30 mg/dL LAB CHEMISTRY METHOD 06/01/2024 12:30 PM [facility] eGFR 69 >=60 mL/min/1. 73m2 LAB CHEMISTRY METHOD 06/01/2024 12:30 PM [facility] LAB Comment:Calculation based on the??Chronic Kidney Disease Epidemiology Collaboration (CKD-EPI) equation refit??without adjustment for race. BUN/Creatinine Ratio 15.5 LAB CHEMISTRY METHOD 06/01/2024 12:30 PM [facility] Calcium 8.7 8.5 - 10.5 mg/dL LAB CHEMISTRY METHOD 06/01/2024 12:30 PM [facility] Blood Venous blood specimen / Unknown Venipuncture / Unknown 06/01/2024 10:03 AM EST 06/01/2024 11:00 AM EST Herminio Lee MD LAB BLOOD ORDERABLES Final R esult [facility] [address] [place] [address], * (ABNORMAL) [id number], RSV, Influenza A and B qualitative RT-PCR (05/26/2024 7:00 AM EST) SARS COV-2 Not Detected Not Detected LAB MOLECULAR DIAGNOSTICS METHOD 05/26/2024 3:08 PM [facility] Comment: Disclaimer: The manner in which this information is used to guide patient care is the responsibility of the healthcare provider. Testing was performed using the [employer] Alinity m SARS-CoV-2 test. This test has been authorized by FDA under an Emergency Use Authorization (EUA). This test is only authorized for the duration of time the declaration that circumstances exist justifying the authorization of the emergency use of in vitro diagnostic tests for detection of SARS-CoV-2 virus and/or diagnosis of COVID-19 infection under section 564(b)(1) of the Act, 21 U.S.C. 360bbb- 3(b)(1), unless the authorization is terminated or revoked sooner. Fact sheet for Healthcare Providers can be found at: https://www.fda.gov/media/151153/download Fact sheet for Patients can be found at: https://www.fda.gov/media/598324/download Influenza A PCR Detected(A ) Not Detected LAB MOLECULAR DIAGNOSTICS METHOD 05/26/2024 3:08 PM [facility] Comment:This patient is posi tive for influenza A. If the patient is admitted, please order the Respiratory Virus Panel PCR (Epic ID: [id number]) so our lab can subtype the influenza A, per CDC recommendations. Influenza B PCR Not Detected Not Detected LAB MOLECULAR DIAGNOSTICS METHOD 05/26/2024 3:08 PM [facility] RSV PCR Not Detected Not Detected LAB MOLECULAR DIAGNOSTICS METHOD 05/26/2024 3:08 PM [facility] Swab Nasopharyngeal structure / Unknown Non-blood Collection / Unknown 05/26/2024 7:00 AM EST 05/26/2024 11:23 AM EST us Herminio Lee MD LAB MICROBIOLOGY - GENERAL O RDERABLES Final Result [facility] [address] [place] [address], [place] [phone] * (ABNORMAL) Comprehensive metabolic panel (04/03/2024 7:26 AM EST) Sodium 139 133 - 145 mmol/L LAB CHEMISTRY METHOD 04/03/2024 10:04 AM [facility] Potassium 4.4 3.5 - 5.5 mmol/L LAB CHEMISTRY METHOD 04/03/2024 10:04 AM [facility] Comment:Hemolysis present Chloride 107 96 - 110 mmol/L LAB CHEMISTRY METHOD 04/03/2024 10:04 AM [facility] CO2 28 21 - 32 mmol/L LAB CHEMISTRY METHOD 04/03/2024 10:04 AM [facility] Anion Gap 4 3 - 11 LAB CHEMISTRY METHOD 04/03/2024 10:04 AM [facility] Glucose 85 70 - 100 mg/dL LAB CHEMISTRY METHOD 04/03/2024 10:04 AM [facility] BUN 18 5 - 25 mg/dL LAB CHEMISTRY METHOD 04/03/2024 10:04 AM [facility] Creatinine 1.03 0.70 - 1.30 mg/dL LAB CHEMISTRY METHOD 04/03/2024 10:04 AM [facility] eGFR 81 >=60 mL/min/1. 73m2 LAB CHEMISTRY METHOD 04/03/2024 10:04 AM [facility] Comment:Calculation based on the??Chronic Kidney Disease Epidemiology Collaboration (CKD-EPI) equation refit??without adjustment for race. BUN/Creatinine Ratio 17.5 LAB CHEMISTRY METHOD 04/03/2024 10:04 AM [facility] Calcium 8.7 8.5 - 10.5 mg/dL LAB CHEMISTRY METHOD 04/03/2024 10:04 AM [facility] AST (SGOT) 27 10 - 42 unit/L LAB CHEMISTRY METHOD 04/03/2024 10:04 AM [facility] Comment:Hemolysis present ALT (SGPT) 22 10 - 60 unit/L LAB CHEMISTRY METHOD 04/03/2024 10:04 AM [facility] Alkaline Phosphatase 96 42 - 121 unit/L LAB CHEMISTRY METHOD 04/03/2024 10:04 AM [facility] Total Protein 7.0 6.0 - 8.0 g/dL LAB CHEMISTRY METHOD 04/03/2024 10:04 AM [facility] Albumin 3.1(L) 3.2 - 5.0 g/dL LAB CHEMISTRY METHOD 04/03/2024 10:04 AM [facility] Total Bilirubin 0.3 0.0 - 1.4 mg/dL LAB CHEMISTRY METHOD 04/03/2024 10:04 AM [facility] Blood Venous blood specimen / Unknown Venipuncture / Unknown 04/03/2024 7:26 AM EST 04/03/2024 9:41 AM EST us Herminio Lee MD LAB BLOOD ORDERABLES Final R esult [facility] [address] [place] [address], [place] [phone] from Last 3 Months Additional Health Concerns Infection Onset Date Last Indicated Influenza 05/26/2024 05/26/2024 Insurance MEDICARE MEDICAID - [place] Care Teams Launch Operator Relationship Specialty Start Date End Date Maty Darnell MD [address] [place] [address] [address] [place], [place] PCP - General Internal Medicine 10/24/19
--- OUTSIDE RECORDS SUMMARY | 2024-06-19 13:56 | XMS_ITS | Encounter Summary ---
Author Organization [facility] [employer] Address [address] [place] [address] [address] [place] [address] Care Team Providers Care Outplacement Consultant Name Role Phone Rick Arcos MD Primary Care Prov ider Reason for Visit * Reason Onset Date Comments Med Refill 05/29/2024 Encounter Details Date Type Department Care Team ([facility] Contact Info) Description 05/29/2024 Refill [facility] [address] [place] [address] Barbara Velazquez, NIMESH [address] [place] [address] Other chronic pain Social History Tobacco Use Types Packs/Day Years [...] Description 06/25/2024 10:45 AM EDT Office Visit [facility] [address] [place] [address] Rick Arcos MD [address] [place] [address] documented as of this encounter Visit Diagnoses Diagnosis Other chronic pain documented in this encounter Care Teams Outplacement Consultant Relationship Specialty Start Date End Date Rick Arcos MD [address] [place] [address] PCP - General Internal Medicine 05/28/24 documented as of this encounter
--- OUTSIDE RECORDS SUMMARY | 2024-06-19 13:56 | XMS_ITS | Referral Summary ---
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 Active omeprazole (PriLOSEC) 40 mg capsule Take 40 mg by mouth once a day. Active thiamine HCl (VITAMIN B1) 100 mg tablet Take 100 mg by mouth once a day. Active allopurinoL (ZYLOPRIM) 100 mg tablet Take 1 tablet (100 mg total) by mouth once a day. 30 tablet 03/16/2024 Active apixaban (ELIQUIS) 5 mg tablet Take 1 tablet (5 mg total) by mouth every 12 hours. 60 tablet 03/16/2024 Active atorvastatin (LIPITOR) 40 mg tablet Take 1 tablet (40 mg total) by mouth once a day. 30 tablet 03/16/2024 Active dilTIAZem CD (CARDIZEM CD) 180 mg 24 hr capsule Take 1 capsule (180 mg total) by mouth once a day. 30 capsule 03/16/2024 Active metoprolol tartrate (LOPRESSOR) 50 mg tablet Take 1 tablet (50 mg total) by mouth at bed time for 30 days, THEN 2 tablets (100 mg total) once a day. 90 tablet 03/16/2024 Active tamsulosin (FLOMAX) 0.4 mg capsule Take 1 capsule (0.4 mg total) by mouth once a day. 30 capsule 03/16/2024 Active torsemide (DEMADEX) 20 mg tablet Take 2 tablets (40 mg total) by mouth 2 times a day. 120 tablet 03/16/2024 Active Active Problems Problem Noted Date Diagnosed Date Alcohol use disorder 02/22/2024 Assessment & Plan (03/15/2024 10:34 AM EST): Patient reports drinking one quart of hard liquor daily, last drink 2 days prior to admission. Was at [facility] prior to current presentation. Assessed by addiction psych this admission who noted patient not interested in MAT for AUD. He was monitored on CIWA which was discontinued on 02/24. -Follow-up with PCP and AA follow up, encourage alcohol cessation -Continue thiamine 100 mg daily, multivitamin, folate, B12 Assessment & Plan (03/14/2024 5:17 PM EST): Patient reports drinking one quart of hard liquor daily, last drink 2 days prior to admission. Was at [facility] prior to current presentation. Assessed by addiction psych this admission who noted patient not interested in MAT for AUD. He was monitored on CIWA which was discontinued on 02/24. -Follow-up with PCP and AA follow up, encourage alcohol cessation -Continue thiamine 100 mg daily, multivitamin, folate, B12 Assessment & Plan (03/09/2024 7:28 PM EST): Patient reports drinking one quart of hard liquor daily, last drink 2 days prior to admission. Was at [facility] prior to current presentation. Assessed by addiction psych this admission who noted patient not interested in MAT for AUD. He was monitored on CIWA which was discontinued on 02/24. -Follow-up with PCP and AA follow up, encourage alcohol cessation -Continue thiamine 100 mg daily, multivitamin, folate, B12 Assessment & Plan (03/08/2024 10:40 PM EST): Patient reports drinking one quart of hard liquor daily, last drink 2 days prior to admission. Was at [facility] prior to current presentation. Assessed by addiction psych this admission who noted patient not interested in MAT for AUD. He was monitored on CIWA which was discontinued on 02/24. -Follow-up with PCP and AA follow up, encourage alcohol cessation -Continue thiamine 100 mg daily, multivitamin, folate, B12 Assessment & Plan (03/07/2024 1:35 PM EST): Patient reports drinking one quart of hard liquor daily, last drink 2 days prior to admission. Was at [facility] prior to current presentation. Assessed by addiction psych this admission who noted patient not interested in MAT for AUD. He was monitored on CIWA which was discontinued on 02/24. - outpatient PCP and AA follow up Assessment & Plan (02/26/2024 6:00 PM EST): Patient reports drinking one quart of hard liquor daily, last drink 2 days prior to admission. Was at [facility] prior to current presentation. Assessed by addiction psych this admission who noted patient not interested in MAT for AUD. He was monitored on CIWA which was discontinued on 02/24. - outpatient PCP and AA follow up Assessment & Plan (02/25/2024 7:00 PM EST): Patient reports drinking one quart of hard liquor daily, last drink 2 days prior to admission. Was at [facility] prior to current presentation. Assessed by addiction psych this admission who noted patient not interested in MAT for AUD. He was monitored on CIWA which was discontinued on 02/24. - outpatient PCP and AA follow up Depression 02/22/2024 Assessment & Plan (03/15/2024 10:34 AM EST): Continue vilazodone 20 mg and duloxetine 40 mg Assessment & Plan (03/14/2024 5:17 PM EST): Continue vilazodone 20 mg and duloxetine 40 mg Assessment & Plan (03/09/2024 7:28 PM EST): Stable -Continue vilazodone 20 mg and duloxetine 40 mg Assessment & Plan (03/08/2024 10:40 PM EST): Stable -Continue vilazodone 20 mg and duloxetine 40 mg Assessment & Plan (03/07/2024 1:35 PM EST): -Continue vilazodone and cymbalta -he confirmed that he is no longer on Seroquel Assessment & Plan (02/26/2024 6:00 PM EST): -Continue vilazodone and cymbalta -he confirmed that he is no longer on Seroquel Assessment & Plan (02/25/2024 7:00 PM EST): -Continue vilazodone and cymbalta -he confirmed that he is no longer on Seroquel Atrial fibrillation 02/22/2024 Assessment & Plan (03/15/2024 10:34 AM EST): Continue metoprolol 100 mg a.m., 50 mg p.m. Continue diltiazem 180 mg Continue apixaban 5 mg twice daily Assessment & Plan (03/14/2024 5:17 PM EST): Continue metoprolol 100 mg a.m., 50 mg p.m. Continue diltiazem 180 mg Continue apixaban 5 mg twice daily Assessment & Plan (03/09/2024 7:28 PM EST): Stable -Continue metoprolol 100 mg a.m., 50 mg p.m. -Continue diltiazem 180 mg -Continue apixaban 5 mg twice daily Assessment & Plan (03/08/2024 10:40 PM EST): Stable -Continue metoprolol 100 mg a.m., 50 mg p.m. -Continue diltiazem 180 mg -Continue apixaban 5 mg twice daily Assessment & Plan (03/07/2024 1:35 PM EST): -Continue metoprolol and diltiazem - continue eliquis 5 mg po bid Assessment & Plan (02/26/2024 6:00 PM EST): -Continue metoprolol and diltiazem - continue eliquis 5 mg po bid Assessment & Plan (02/25/2024 7:00 PM EST): -Continue metoprolol and diltiazem - continue eliquis 5 mg po bid BMI 40.0-44.9, adult 02/22/2024 Assessment & Plan (03/15/2024 10:34 AM EST): He had prior history of gastric bypass. Reported side effect to ozempic that caused him to have obstruction requiring abdominal adhesion lysis surgery. With comorbidities -Follow-up with PCP outpatient Assessment & Plan (03/14/2024 5:17 PM EST): He had prior history of gastric bypass. Reported side effect to ozempic that caused him to have obstruction requiring abdominal adhesion lysis surgery. With comorbidities -Follow-up with PCP outpatient Assessment & Plan (03/09/2024 7:28 PM EST): He had prior history of gastric bypass. Reported side effect to ozempic that caused him to have obstruction requiring abdominal adhesion lysis surgery. With comorbidities -Follow-up with PCP outpatient Assessment & Plan (03/08/2024 10:40 PM EST): He had prior history of gastric bypass. Reported side effect to ozempic that caused him to have obstruction requiring abdominal adhesion lysis surgery. With comorbidities -Follow-up with PCP outpatient Assessment & Plan (03/07/2024 1:35 PM EST): He had prior history of gastric bypass. Reported side effect to ozempic that caused him to have obstruction requiring abdominal adhesion lysis surgery. -outpatient follow up Assessment & Plan (02/26/2024 6:00 PM EST): He had prior history of gastric bypass. Reported side effect to ozempic that caused him to have obstruction requiring abdominal adhesion lysis surgery. -outpatient follow up Assessment & Plan (02/25/2024 7:00 PM EST): He had prior history of gastric bypass. Reported side effect to ozempic that caused him to have obstruction requiring abdominal adhesion lysis surgery. -outpatient follow up CHF (congestive heart failure) 02/22/2024 Assessment & Plan (03/15/2024 10:34 AM EST): He denied any history of CHF. However suspected history of CHF since he is taking betablocker, aldactone and torsemide on med list. He also has bilateral LE edema and chronic venous stasis. He was hospitalized at [facility] back in July 2023 and at that time there was a mentioning of history of CHF and was getting diuresis for his LE edema and cellulitis. ECHO done here was very limited, could not assess diastolic but EF was 60%. Spironolactone and torsemide held initially the setting of ARIAN, which resolved. Torsemide resumed on 03/10, creatinine uptrending 03/12 and therefore held again on 03/12 and 03/13 -Continue to hold spironolactone -Will restart torsemide at lower dose of 40 mg twice daily Assessment & Plan (03/14/2024 5:17 PM EST): He denied any history of CHF. However suspected history of CHF since he is taking betablocker, aldactone and torsemide on med list. He also has bilateral LE edema and chronic venous stasis. He was hospitalized at [facility] back in July 2023 and at that time there was a mentioning of history of CHF and was getting diuresis for his LE edema and cellulitis. ECHO done here was very limited, could not assess diastolic but EF was 60%. Spironolactone and torsemide held initially the setting of ARIAN, which resolved. Torsemide resumed on 03/10, creatinine uptrending 12/5 and therefore held again on 03/12 and 03/13 -Continue to hold spironolactone and torsemide Assessment & Plan (03/09/2024 7:28 PM EST): He denied any history of CHF. However suspected history of CHF since he is taking betablocker, aldactone and torsemide on med list. He also has bilateral LE edema and chronic venous stasis. He was hospitalized at [facility] back in July 2023 and at that time there was a mentioning of history of CHF and was getting diuresis for his LE edema and cellulitis. ECHO done here was very limited, could not assess diastolic but EF was 60%. -Holding spironolactone and torsemide in setting of elevated kidney function, consider resuming Assessment & Plan (03/08/2024 10:40 PM EST): He denied any history of CHF. However suspected history of CHF since he is taking betablocker, aldactone and torsemide on med list. He also has bilateral LE edema and chronic venous stasis. He was hospitalized at [facility] back in July 2023 and at that time there was a mentioning of history of CHF and was getting diuresis for his LE edema and cellulitis. ECHO done here was very limited, could not assess diastolic but EF was 60%. -Holding spironolactone and torsemide in setting of elevated kidney function Assessment & Plan (03/07/2024 1:35 PM EST): He denied any history of CHF. However suspected history of CHF since he is taking betablocker, aldactone and torsemide. He also has bilateral LE edema and chronic venous stasis. He said he is on Torsemide because he has the leg swelling. He was hospitalized at [facility] back in July 2023 and at that time there was a mentioning of history of CHF and was getting diuresis for his LE edema and cellulitis. ECHO done here was very limited, could not assess diastolic but EF was 60%. -continue home Torsemide 80mg BID Assessment & Plan (02/26/2024 6:00 PM EST): He denied any history of CHF. However suspected history of CHF since he is taking betablocker, aldactone and torsemide. He also has bilateral LE edema and chronic venous stasis. He said he is on Torsemide because he has the leg swelling. He was hospitalized at [facility] back in July 2023 and at that time there was a mentioning of history of CHF and was getting diuresis for his LE edema and cellulitis. ECHO done here was very limited, could not assess diastolic but EF was 60%. -continue home Torsemide 80mg BID Assessment & Plan (02/25/2024 7:00 PM EST): He denied any history of CHF. However suspected history of CHF since he is taking betablocker, aldactone and torsemide. He also has bilateral LE edema and chronic venous stasis. He said he is on Torsemide because he has the leg swelling. He was hospitalized at [facility] back in July 2023 and at that time there was a mentioning of history of CHF and was getting diuresis for his LE edema and cellulitis. ECHO done here was very limited, could not assess diastolic but EF was 60%. -continue home Torsemide 80mg BID Neuropathy 02/22/2024 Assessment & Plan (03/15/2024 10:34 AM EST): History of severe neuropathy thus on chronic oxycodone. Previously on Gabapentin but no longer on this. For his oxycodone, home regimen includes 5mg at 6am, noon, 6pm, 10mg at bedtime (9 PM), additional 5 mg Prn at midnight He reports increasing pain while inpatient and therefore was given 10 mg twice daily, but he one of the timing to better reflect his home regimen. Orders modified on 03/11. -Oxycodone 10 mg at 6 AM, 5 mg at 12 PM, 5 mg at 6 PM, 10 mg at 9 PM -Oxycodone 5 mg as needed nightly Assessment & Plan (03/14/2024 5:17 PM EST): History of severe neuropathy thus on chronic oxycodone. Previously on Gabapentin but no longer on this. For his oxycodone, home regimen includes 5mg at 6am, noon, 6pm, 10mg at bedtime (9 PM), additional 5 mg Prn at midnight He reports increasing pain while inpatient and therefore was given 10 mg twice daily, but he one of the timing to better reflect his home regimen. Orders modified on 03/11. -Oxycodone 10 mg at 6 AM, 5 mg at 12 PM, 5 mg at 6 PM, 10 mg at 9 PM -Oxycodone 5 mg as needed at midnight Assessment & Plan (03/09/2024 7:28 PM EST): He reported history of severe neuropathy thus on chronic oxycodone. Previously on Gabapentin but no longer on this. For his oxycodone he takes 5mg at 8am, noon, 6pm, 10mg at bedtime, and sometimes 5mg at midnight. -continue oxycodone, follow-up with PCP Assessment & Plan (03/08/2024 10:40 PM EST): He reported history of severe neuropathy thus on chronic oxycodone. Previously on Gabapentin but no longer on this. For his oxycodone he takes 5mg at 8am, noon, 6pm, 10mg at bedtime, and sometimes 5mg at midnight. -continue oxycodone, follow-up with PCP Assessment & Plan (03/07/2024 1:35 PM EST): He reported history of severe neuropathy thus on chronic oxycodone. Previously on Gabapentin but no longer on this. For his oxycodone he takes 5mg at 8am, noon, 6pm, 10mg at bedtime, and sometimes 5mg at midnight. -continue oxycodone Assessment & Plan (02/26/2024 6:00 PM EST): He reported history of severe neuropathy thus on chronic oxycodone. Previously on Gabapentin but no longer on this. For his oxycodone he takes 5mg at 8am, noon, 6pm, 10mg at bedtime, and sometimes 5mg at midnight. -continue oxycodone Assessment & Plan (02/25/2024 7:00 PM EST): He reported history of severe neuropathy thus on chronic oxycodone. Previously on Gabapentin but no longer on this. For his oxycodone he takes 5mg at 8am, noon, 6pm, 10mg at bedtime, and sometimes 5mg at midnight. -continue oxycodone Gout 02/22/2024 Assessment & Plan (03/15/2024 10:34 AM EST): Continue allopurinol 100 mg Assessment & Plan (03/14/2024 5:17 PM EST): Continue allopurinol 100 mg Assessment & Plan (03/09/2024 7:28 PM EST): Stable -Continue allopurinol 100 mg Assessment & Plan (03/08/2024 10:40 PM EST): Stable -Continue allopurinol 100 mg Assessment & Plan (03/07/2024 1:35 PM EST): Continue daily allopurinol Assessment & Plan (02/26/2024 6:00 PM EST): Continue daily allopurinol Assessment & Plan (02/25/2024 7:00 PM EST): Continue daily allopurinol Resolved Problems Problem Noted Date Diagnosed Date Resolved Date Hypokalemia 03/09/2024 03/16/2024 Assessment & Plan (03/15/2024 10:34 AM EST): Replete and monitor PRN Assessment & Plan (03/14/2024 5:17 PM EST): Replete and monitor PRN Assessment & Plan (03/09/2024 7:28 PM EST): Low -Replete and monitor PRN Drug rash 02/25/2024 03/08/2024 Assessment & Plan (03/15/2024 10:34 AM EST): This admission developed maculopapular rash over bilateral chest and trunk. Reassuringly without evidence of mucosal involvement. Afebrile and hemodynamically stable. No eosinophilia on labs. Suspect exanthematous (maculopapular) drug eruption due to cefazolin. Rash improving following discontinuation of cefazolin. Cefazolin added to allergy list Assessment & Plan (03/09/2024 7:28 PM EST): This admission developed maculopapular rash over bilateral chest and trunk. Reassuringly without evidence of mucosal involvement. Afebrile and hemodynamically stable. No eosinophilia on labs. Suspect exanthematous (maculopapular) drug eruption due to cefazolin. Rash improving following discontinuation of cefazolin. Cefazolin added to allergy list Assessment & Plan (03/08/2024 10:40 PM EST): This admission developed maculopapular rash over bilateral chest and trunk. Reassuringly without evidence of mucosal involvement. Afebrile and hemodynamically stable. No eosinophilia on labs. Suspect exanthematous (maculopapular) drug eruption due to cefazolin. Rash improving following discontinuation of cefazolin. Cefazolin added to allergy list Assessment & Plan (03/07/2024 1:35 PM EST): This admission developed maculopapular rash over bilateral chest and trunk. Reassuringly without evidence of mucosal involvement. Afebrile and hemodynamically stable. No eosinophilia on labs. Suspect exanthematous (maculopapular) drug eruption due to cefazolin. Rash improving following discontinuation of cefazolin. - cefazolin discontinued - topical triamcinolone - consider dermatology consult if no improvement or if patient develops alarm features Assessment & Plan (02/26/2024 6:00 PM EST): This admission developed maculopapular rash over bilateral chest and trunk. Reassuringly without evidence of mucosal involvement. Afebrile and hemodynamically stable. No eosinophilia on labs. Suspect exanthematous (maculopapular) drug eruption due to cefazolin. Rash improving following discontinuation of cefazolin. - cefazolin discontinued - topical triamcinolone - consider dermatology consult if no improvement or if patient develops alarm features Assessment & Plan (02/25/2024 7:00 PM EST): This admission developed maculopapular rash over bilateral chest and trunk. Reassuringly without evidence of mucosal involvement. Afebrile and hemodynamically stable. No eosinophilia on labs. Suspect exanthematous (maculopapular) drug eruption due to cefazolin. - cefazolin discontinued - topical triamcinolone - consider dermatology consult if no improvement or if patient develops alarm features Cellulitis of right leg 02/22/2024 12/0 12/2023 Assessment & Plan (03/15/2024 10:34 AM EST): Patient presented from [facility] for evaluation of right lower extremity swelling and redness. He was initiated on clindamycin at [facility] but without improvement so sent to [facility] for evaluation. L. Duplex negative for DVT. CT lower extremity reports findings compatible with reported clinical history of cellulitis; no evidence of necrotizing infection or abscess MRSA PCR positive; blood cultures 03/02 no growth Antibiotics review: Vancomycin 02/21, 02/24-02/26, 03/02-03/05, 03/07-03/09 Clindamycin 02/26-03/02 Cefazolin 02/21-02/24 (switched to vancomycin due to concern of drug rash) Zosyn 03/02-03/09 -Transitioned to doxycycline 100mg for 4 days as this would provide coverage for MRSA (no culture data) for approximately 14 days combined. Completed on 03/13 -WOCN consulted and provided wound care recs for lower extremity wounds CWOCN Recommendations: Right leg: cleanse with warm soapy water, pat dry. Moisturize legs with vaseline. Apply xeroform and abd to open areas. Wrap from toe to knee with kerlix and two 4 ryan wraps for light compression. Change daily and prn drainage. Float the heels at all times. -PT/OT consulted for dispo-rehab recommended, however patient has run out of MCR days and will need to clear while inpatient to [facility] vs other housing Assessment & Plan (03/14/2024 5:17 PM EST): Patient presented from [facility] for evaluation of right lower extremity swelling and redness. He was initiated on clindamycin at [facility] but without improvement so sent to [facility] for evaluation. L. Duplex negative for DVT. CT lower extremity reports findings compatible with reported clinical history of cellulitis; no evidence of necrotizing infection or abscess MRSA PCR positive; blood cultures 03/02 no growth Antibiotics review: Vancomycin 02/21, 02/24-02/26, 03/02-03/05, 03/07-03/09 Clindamycin 02/26-03/02 Cefazolin 02/21-02/24 (switched to vancomycin due to concern of drug rash) Zosyn 03/02-03/09 -Transitioned to doxycycline 100mg for 4 days as this would provide coverage for MRSA (no culture data) for approximately 14 days combined. Completed on 03/13 -WOCN consulted and provided wound care recs for lower extremity wounds CWOCN Recommendations: Right leg: cleanse with warm soapy water, pat dry. Moisturize legs with vaseline. Apply xeroform and abd to open areas. Wrap from toe to knee with kerlix and two 4 ryan wraps for light compression. Change daily and prn drainage. Float the heels at all times. -PT/OT consulted for dispo-rehab recommended, however patient has run out of MCR days and will need to clear while inpatient to [facility] vs other housing Assessment & Plan (03/09/2024 7:28 PM EST): Was initiated on clindamycin at [facility] but without improvement so sent to [facility] for evaluation. L. Duplex negative for DVT. CT lower extremity reports findings compatible with reported clinical history of cellulitis; no evidence of necrotizing infection or abscess MRSA PCR positive; blood cultures 03/02 no growth Antibiotics review: Vancomycin 02/21, 02/24-02/26, 03/02-03/05, 03/07-present (over 10 days) Clindamycin 02/26-03/02 Cefazolin 02/21-02/24 (switched to vancomycin due to concern of drug rash) Zosyn 03/02-present (over 7 days) -Discontinued Zosyn and vancomycin empirically last dose 03/09 -Transition to doxycycline 100mg for 4 days as this would provide coverage for MRSA (no culture data) for approximately 14 days combined -WOCN consulted and provided wound care recs for lower extremity wounds CWOCN Recommendations: Right leg: cleanse with warm soapy water, pat dry. Moisturize legs with vaseline. Apply xeroform and abd to open areas. Wrap from toe to knee with kerlix and two 4 ryan wraps for light compression. Change daily and prn drainage. Float the heels at all times. -PT/OT consulted for dispo Assessment & Plan (03/08/2024 10:40 PM EST): Was initiated on clindamycin at [facility] but without improvement so sent to [facility] for evaluation. L. Duplex negative for DVT. CT lower extremity reports findings compatible with reported clinical history of cellulitis; no evidence of necrotizing infection or abscess MRSA PCR positive; blood cultures 03/02 no growth Antibiotics review: Vancomycin 02/21, 02/24-02/26, 03/02-03/05, 03/07-present (over 10 days) Clindamycin 02/26-03/02 Cefazolin 02/21-02/24 (switched to vancomycin due to concern of drug rash) Zosyn 03/02-present (over 7 days) -Continue Zosyn and vancomycin empirically last dose 03/09 -WOCN consulted and provided wound care recs for lower extremity wounds -PT consulted Assessment & Plan (03/07/2024 1:35 PM EST): Presents from [facility] for evaluation of right lower extremity cellulitis. Was initiated on clindamycin at [facility] but without improvement so sent to [facility] for evaluation. He was sent for further evaluation. On exam he has chronic venous stasis with some edema, R calf more swollen and tender and warm compared to L. Duplex negative for DVT. Patient received Vanco in ED. This was switched to cefazolin on admission but patient developed rash on this agent so antibiotic switched back to vancomycin 02/24 (MRSA PCR this admission was positive). - Working Dx:, RLE Cellulits, hospital course complicated by hypotension/lethargic (sepsis? Vs hypovolemia from over diuresis) - Continue Vancomycin/Zosyn, follow cultures (so far negative), and narrow down antibiotics as appropriated. - Will consider transition to oral antibiotics tomorrow, given Cellulitis improvement if no other infectious source. - WOCN consulted and provided wound care recs for lower extremity wounds Assessment & Plan (02/26/2024 6:00 PM EST): Presents from [facility] for evaluation of right lower extremity cellulitis. Was initiated on clindamycin at [facility] but without improvement so sent to [facility] for evaluation. He was sent for further evaluation. On exam he has chronic venous stasis with some edema, R calf more swollen and tender and warm compared to L. Duplex negative for DVT. Patient received Vanco in ED. This was switched to cefazolin on admission but patient developed rash on this agent so antibiotic switched back to vancomycin 02/24 (MRSA PCR this admission was positive). - continue IV vancomycin; anticipate end of therapy ~ 02/27 but will continue to monitor clinical exam and vitals/labs to assess for improvement - WOCN consulted and provided wound care recs for lower extremity wounds Assessment & Plan (02/25/2024 7:00 PM EST): Presents from [facility] for evaluation of right lower extremity cellulitis. Was initiated on clindamycin at [facility] but without improvement so sent to [facility] for evaluation. He was sent for further evaluation. On exam he has chronic venous stasis with some edema, R calf more swollen and tender and warm compared to L. Duplex negative for DVT. Patient received Vanco in ED. This was switched to cefazolin on admission but patient developed rash on this agent so antibiotic switched back to vancomycin 02/24 (MRSA PCR this admission was positive). - continue IV vancomycin; anticipate end of therapy 02/26 but will continue to monitor clinical exam and vitals/labs to assess for improvement - WOCN consulted and provided wound care recs for lower extremity wounds Social History Tobacco Use Types Packs/Day Years Used Date Smoking Tobacco: Never Smokeless Tobacco: Never [facility] Utilities Answer Date Recorded In the past 12 months has th e electric, gas, oil, or water company threatened to shut off services in your home? No 02/22/2024 Hunger Vital Sign Answer Date Recorded Within the past 12 months, y ou worried that your food would run out before you got the money to buy more. Never true 02/22/20 24 Within the past 12 months, t he food you bought just didn't last and you didn't have money to get more. Never true 02/22/2024 Transportation Answer Date Recorded In the past 12 months, has l ack of reliable transportation kept you from medical appointments, meetings, work or from getting things needed for daily living? No 02/22/2024 Housing Answer Date Recorded Housing Risk Low 1 02/22/2024 Housing Risk Medium Not on file 02/22/2024 Housing Risk High 1 02/22/2024 What is your living situation today? [facility] 02/22/2024 Sex and Gender Information Value Date Recorded Sex Assigned at Male 02/22/2024 1:21 PM EST Legal Sex Male 12:27 PM EST Gender Identity Male 02/22/2024 1:21 PM EST Sexual Orientation Not on file Last Filed Vital Signs Vital Sign Reading Time Taken Comments Blood Pressure 114/74 03/16/2024 9:28 AM EST Pulse 87 03/16/2024 9:28 AM EST Temperature 36.4 ??C (97.5 ??F) 03/16/2024 9:28 AM ES T Respiratory Rate 18 03/16/2024 9:28 AM EST Oxygen Saturation 97% 03/16/2024 9:28 AM EST Inhaled Oxygen Concentration - - Weight 142.9 kg (315 lb) 02/24/2024 7:29 AM EST Height 182.9 cm (6') 02/24/2024 7:29 AM EST Body Mass Index 42.72 02/24/2024 7:29 AM EST Plan of Treatment Not on file Additional Health Concerns Infection Onset Date Last Indicated Multidrug resistant organisms MRSA 02/22/2024 02/22/2024 Insurance MEDICARE [facility] [employer] Advance Directives Documents on File Type Date Recorded Patient Automatic Transmission Mechanic Expl anation Health Care Proxy 03/11/2024 2:04 PM 03-11 * Full Code (Latest Code Status on File) Date Activated Date Inactivated Comments 02/22/2024 3:34 PM 03/16/2024 6:28 PM Care Teams Personal Finance Instructor Relationship Specialty Start Date End Date [address] [address] PCP - General 02/22/24
--- OUTSIDE RECORDS SUMMARY | 2024-06-19 13:56 | XMS_ITS | Encounter Summary ---
Author Organization [employer] Address [address] [facility] 7t [place] [address] Care Team Providers Care Protective Signal Repairer Name Role Phone Rick Arcos MD Primary Care Prov ider Reason for Visit * Reason Comments Pre-visit Planning SDOH will need to be completed in office. Encounter Details Date Type Department Care Team ([facility] st Contact Info) Description 06/18/2024 Patient Outreach [facility] MED & PEDS [address] [place], [place] [phone] Rick Arcos MD [address] [place], [place] [phone] Pre-visit Planning (SDOH will need to be completed in office. ) Social History Tobacco Use Types Packs/Day Years [...] AM EDT documented as of this encounter Progress Notes * Joyce Vidal - 06/18/2024 2:08 PM EDT GWEN Lyn placed successful outbound call to patient for pre-visit planning. Patient name and confirmed. Patient confirms appt date and time, and has transportation arrangements. Biggest concern for appointment at this time is no concerns. Appropriate screenings completed in anticipation ofappointment. documented in this encounter Plan of Treatment Upcoming Encounters Date Type Department Care Team (Late st Contact Info) Description 06/25/2024 10:45 AM EDT Office Visit [facility] [address] [place] [address] Rick Arcos MD [address] [place] [address] documented as of this encounter Visit Diagnoses Not on filedocumented in this encounter Care Teams Protective Signal Repairer Relationship Specialty Start Date End Date Rick Arcos MD [address] [place] [address] PCP - General Internal Medicine 05/28/24 Rodrick Arguello 06/09/24 documented as of this encounter
--- OUTSIDE RECORDS SUMMARY | 2024-06-19 13:56 | XMS_ITS | Encounter Summary ---
Author Organization [employer] Address [address] [facility] 7t [place] [address] Care Team Providers Care Kennel Keeper Name Role Phone Rick Arcos MD Primary Care Prov ider Reason for Visit * Reason Onset Date Comments verbal order 06/19/2024 Encounter Details Date Type Department Care Team ([facility] st Contact Info) Description 06/19/2024 Telephone [facility] MEDICINE [address] [place] [address] Rick Arcos MD [address] [place], [place] [phone] verbal order Social History Tobacco Use Types Packs/Day Years [...] encounter Miscellaneous Notes * Telephone Encounter - Brittani Goode RN - 06/19/2024 12:58 PM EDT TC to Sis from [facility] for a verbal order to resume care for pt. Sis verbalized understanding and agreement with plan. * Telephone Encounter - Danyelle Lackey - 06/19/2024 11:57 AM EDT Tc from Sis with Ave requesting order for half-way care on Saturday, pt [facility]. [phone] Sis documented in this encounter Plan of Treatment Upcoming Encounters Date Type Department Care Team (Late st Contact Info) Description 06/25/2024 10:45 AM EDT Office Visit [facility] PEDS [address] [place] [address] Rick Arcos MD [address] [place] [address] documented as of this encounter Visit Diagnoses Not on filedocumented in this encounter Care Teams Kennel Keeper Relationship Specialty Start Date End Date Rick Arcos MD [address] [place] [address] PCP - General Internal Medicine 05/28/24 Ave Jos 06/09/24 documented as of this encounter
--- OUTSIDE RECORDS SUMMARY | 2024-06-19 13:56 | XMS_ITS | Encounter Summary ---
Author Organization [employer] Address [address] [place] [address] 7t [place] [address] Care Team Providers Care Disability Coordinator Name Role Phone Rick Arcos MD Primary Care Prov ider Reason for Visit * Reason Onset Date Comments Med Refill 05/27/2024 Encounter Details Date Type Department Care Team ([facility] st Contact Info) Description 05/27/2024 Refill [facility] PEDS [address] [place], [place] [phone] Rick Arcos MD [address] [place] [address] Other chronic pain (Primary Dx) Social History Tobacco Use Types Packs/Day Years [...] encounter Miscellaneous Notes * Telephone Encounter - Allison Whitaker - 05/28/2024 9:59 AM EST Tc from pt requesting to speak to [employer] nurse regarding the amount of capsules received. Contact pt at [phone] * Telephone Encounter - Nathalie Campos - 05/27/2024 1:08 PM EST TC from pt requesting medication refill. Medications needing refill : oxyCODONE (Oxy-IR) 5 MG immediate release capsule To be sent to: [facility] [place] - [address] [facility] documented in this encounter Plan of Treatment Upcoming Encounters Date Type Department Care Team (Late st Contact Info) Description 06/25/2024 10:45 AM EDT Office Visit [facility] MED & PEDS [address] [place] [id number] Rick Arcos MD [address] [place] [address] documented as of this encounter Visit Diagnoses Diagnosis Other chronic pain- Primary documented in this encounter Care Teams Disability Coordinator Relationship Specialty Start Date End Date Rick Arcos MD [address] [place] [id number] PCP - General Internal Medicine 05/28/24 documented as of this encounter
--- OUTSIDE RECORDS SUMMARY | 2024-06-19 13:56 | XMS_ITS | Encounter Summary ---
Author Organization [employer] Address [address] [facility] 7t [place] [address] Care Team Providers Care Community Educator Name Role Phone Rick Arcos MD Primary Care Prov ider Reason for Visit * Reason Onset Date Comments Appointment 08/22/2022 Encounter Details Date Type Department Care Team (Late st Contact Info) Description 08/22/2022 Telephone [facility] ADULT DENTAL [address] [place], [place] [phone] Martín Dumont DDS [address] [place], [place] [phone] Appointment Social History Tobacco Use Types Packs/Day Years Used Date Smoking Tobacco: Never Assessed Sex and Gender Information Value Date Recorded Sex Assigned at Male 02/05/2022 10:20 AM EDT Legal Sex Male 10:20 AM EDT Gender Identity Male 02/05/2022 10:20 AM EDT Sexual Orientation Straight 02/05/2022 10 :20 AM EDT documented as of this encounter Miscellaneous Notes * Telephone Encounter - Sydney Greenberg - 08/22/2022 1:47 PM EDT Patient was calling in to make try in appt with Dr. Dumont. He states hes been waiting since June.No availability on PAR side. Can you reach out to patient DR documented in this encounter Plan of Treatment Upcoming Encounters Date Type Department Care Team (Late st Contact Info) Description 06/25/2024 10:45 AM EDT Office Visit [facility] MED & PEDS [address] [place], [place] [phone] Rick Arcos MD [address] [place] [address] documented as of this encounter Visit Diagnoses Not on filedocumented in this encounter Care Teams Community Educator Relationship Specialty Start Date End Date Rick Arcos MD [address] [place] [address] PCP - General Internal Medicine 05/28/24 Rodrick Arguello 06/09/24 documented as of this encounter
--- OUTSIDE RECORDS SUMMARY | 2024-06-19 13:56 | XMS_ITS | Encounter Summary ---
Author Organization [employer] Address [address] [facility] 7t [place] [address] Care Team Providers Care Med Dir Name Role Phone Rick Arcos MD Primary Care Prov ider Reason for Visit * Reason Onset Date Comments Medication Question 05/11/2024 Encounter Details Date Type Department Care Team (Late st Contact Info) Description 05/11/2024 Telephone [facility] MEDICINE [address] [place] [address] Rick Arcos MD [address] [place], [place] [phone] Medication Question Social History Tobacco Use Types Packs/Day Years Used Date Smoking Tobacco: Never Smokeless Tobacco: Never Alcohol Use Standard Drinks/Week Comments Never 0 (1 standard drink = 0.6 oz pur e alcohol) Sex and Gender Information Value Date Recorded Sex Assigned at Male 02/05/2022 10:20 AM EDT Legal Sex Male 10:20 AM EDT Gender Identity Male 02/05/2022 10:20 AM EDT Sexual Orientation Straight 02/05/2022 10 :20 AM EDT documented as of this encounter Miscellaneous Notes * Telephone Encounter - Cyrus Machado - 05/11/2024 2:29 PM EST TC from pt reports having a tele with [facility] on 05/05/24 . States pcp was to prescribe medications and send them to [facility] pharmacy . Pt states he gave provider a list of about 20 medications documented in this encounter Plan of Treatment Upcoming Encounters Date Type Department Care Team (Late Contact Info) Description 06/25/2024 10:45 AM EDT Office Visit [facility] MED & PEDS [address] [place] [address] Rick Arcos MD [address] [place] [address] documented as of this encounter Visit Diagnoses Not on filedocumented in this encounter Care Teams Med Dir Relationship Specialty Start Date End Date Rick Arcos MD [address] [place] [address] PCP - General Internal Medicine 05/28/24 Rodrick Arguello 06/09/24 documented as of this encounter
--- OUTSIDE RECORDS SUMMARY | 2024-06-19 13:56 | XMS_ITS | Encounter Summary ---
Author Organization [employer] Address [address] [place] [address] [place] [address] Care Team Providers Care Retail Client Solutions Consultant Name Role Phone Rick Arcos MD Primary Care Prov ider Reason for Visit * Reason Onset Date Comments Record Request 06/10/2024 Encounter Details Date Type Department Care Team ([facility] st Contact Info) Description 06/10/2024 Telephone [facility] MED & PEDS [address] [place], [place] [phone] Rick Arcos MD [address] [place] [address] Record Request Social History Tobacco Use Types Packs/Day Years [...] Telephone Encounter - Chapis Arias RN - 06/10/2024 4:34 PM EST [facility] [place] Spoke with 4th floor answering service operator which is the unit where pt was staying. Author requested that pt discharge summary and med list be faxed to [facility] and fax information provided. secretary stated that nurse was not available to review request. Author gave phone number of office and instructed that if there are questions regarding information request to return call to office before 4:30pm today or to call office tomorrow 06/11/24. secretary verbalized understanding and agreement with instructions on returning phone call. * Telephone Encounter - Chapis Arias RN - 06/10/2024 4:29 PM EST TC received from Danyelle with Ave [facility]. Per Danyelle, pt was discharged from [facility] on06[facility]08[facility]24. Danyelle asked if [facility] had received discharge summary and medication list of pt as [facility] has not received med list only wound care orders. Office has not received med list or discharge summary. Author told Danyelle who stated she would reach out to rehab for information. documented in this encounter Plan of Treatment Upcoming Encounters Date Type Department Care Team (Late st Contact Info) Description 06/25/2024 10:45 AM EDT Office Visit [facility] MED & PEDS [address] [place] [address] Rick Arcos MD [address] [place] [address] documented as of this encounter Visit Diagnoses Not on filedocumented in this encounter Care Teams Retail Client Solutions Consultant Relationship Specialty Start Date End Date Rick Arcos MD [address] [place] [address] PCP - General Internal Medicine 05/28/24 Caretenadri Arguello 06/09/24 documented as of this encounter
--- OUTSIDE RECORDS SUMMARY | 2024-06-19 13:56 | XMS_ITS | Encounter Summary ---
Author Organization [employer] Address [address] [facility] 7t [place] [address] Care Team Providers Care Clinical Appeals Rn Name Role Phone Rick Arcos MD Primary Care Prov ider Reason for Visit * Reason Onset Date Comments Verbal Orders 06/05/2024 Encounter Details Date Type Department Care Team ([facility] st Contact Info) Description 06/05/2024 Telephone [facility] MEDICINE [address] [place] [address] Rick Arcos MD [address] [place], [place] [phone] Verbal Orders Social History Tobacco Use Types Packs/Day Years [...] Telephone Encounter - Chapis Arias RN - 06/05/2024 1:55 PM EST Tc to [facility]. Verbal orders given for fci and OT services for discharge. Orders read back to author for confirmation. * Telephone Encounter - Marcio Nealnandez - 06/05/2024 1:39 PM EST Tc from Sis with [facility] requesting a call back for verbal orders for fci and occupational therapy. Contact Sis at [phone] Ask for Sis documented in this encounter Plan of Treatment Upcoming Encounters Date Type Department Care Team (Late st Contact Info) Description 06/25/2024 10:45 AM EDT Office Visit [facility] MED & PEDS [address] [place] [address] Rick Arcos MD [address] [place] [address] documented as of this encounter Visit Diagnoses Not on filedocumented in this encounter Care Teams Clinical Appeals Rn Relationship Specialty Start Date End Date Rick Arcos MD [address] [place] [address] PCP - General Internal Medicine 05/28/24 documented as of this encounter
--- OUTSIDE RECORDS SUMMARY | 2024-06-19 13:56 | XMS_ITS | Encounter Summary ---
Author Organization [facility] [employer] [facility] Address [address] [place] [address] 7t [place] [address] Care Team Providers Care Air Conditioning Installer Supervisor Name Role Phone Unavailable Primary Care Provider Unavailabl e Reason for Referral * Medications - Closed Specialty Diagnoses / Procedures Referred By Contryann t Referred To Contact Diagnoses Muscle spasm Rick Arcos MD [address] [place] [address] Phone: tel: fax: Referral ID Status Reason Start Date Expiration Date Visits Re quested Visits Authorized [id number] Closed 1 1 Encounter Details Date Type Department Care Team (Late st Contact Info) Description 05/22/2024 Orders Only [facility] MED & PEDS [address] [place] [address] Rick Arcos MD [address] [place] [address] Muscle spasm (Primary Dx) Social History Tobacco Use Types [...] 10:45 AM EDT Office Visit [facility] MED & PEDS [address] [place] [address] Rick Arcos MD [address] [place] [address] documented as of this encounter Visit Diagnoses Diagnosis Muscle spasm- Primary Spasm of muscle documented in this encounter
--- OUTSIDE RECORDS SUMMARY | 2024-06-19 13:56 | XMS_ITS | Encounter Summary ---
Author Organization [facility] Address [address] [place] [id number] Care Team Providers Care Imaging Nurse Name Role Phone Maty Darnell MD Primary Care Provider [phone] Encounter Details Date Type Department Care Team (Late st Contact Info) Description 06/01/2024 Lab Requisition [facility] - Main Lab [address] [place] [address] Herminio Lee MD [address] [place] [address] Shortness of breath Social History Tobacco Use Types Packs/Day Years [...] Associated Diagnosis Comments COMPLETE BLOOD COUNT Routine 06/01/2024 10:03 AM EST Shortness of breath BASIC METABOLIC PANEL Routine 06/01/2024 10:03 AM EST Shortness of breath documented in this encounter Results * Basic metabolic panel (06/01/2024 10:03 AM EST) Sodium 141 133 - 145 mmol/L LAB CHEMISTRY METHOD 06/01/2024 12:30 PM EST [facility] Potassium 4.4 3.5 - 5.5 mmol/L LAB CHEMISTRY METHOD 06/01/2024 12:[address] [facility] Chloride 107 96 - 110 mmol/L LAB CHEMISTRY METHOD 06/01/2024 12:[address] [facility] CO2 25 21 - 32 mmol/L LAB CHEMISTRY METHOD 06/01/2024 12:[address] [facility] Anion Gap 9 3 - 11 LAB CHEMISTRY METHOD 06/01/2024 12:[address] [facility] Glucose 79 70 - 100 mg/dL LAB CHEMISTRY METHOD 06/01/2024 12:[address] [facility] BUN 18 5 - 25 mg/dL LAB CHEMISTRY METHOD 06/01/2024 12:[address] [facility] Creatinine 1.16 0.70 - 1.30 mg/dL LAB CHEMISTRY METHOD 06/01/2024 12:[address] [facility] eGFR 69 >=60 mL/min/1. 73m2 LAB CHEMISTRY METHOD 06/01/2024 12:[address] [facility] Comment:Calculation based on the??Chronic Kidney Disease Epidemiology Collaboration (CKD-EPI) equation refit??without adjustment for race. BUN/Creatinine Ratio 15.5 LAB CHEMISTRY METHOD 06/01/2024 12:[address] [facility] Calcium 8.7 8.5 - 10.5 mg/dL LAB CHEMISTRY METHOD 06/01/2024 12:[address] [facility] Blood Venous blood specimen / Unknown Venipuncture / Unknown 06/01/2024 10:03 AM EST 06/01/2024 11:00 AM EST us Herminio eLe MD LAB BLOOD ORDERABLES Final R esult [facility] [address] [place] [address], * (ABNORMAL) Complete blood count (06/01/2024 10:03 AM EST) WBC 8.8 4.8 - 10.8 K/mcL LAB HEMETOLOGY METHOD 06/01/2024 1:[address] [facility] RBC 4.30(L) 4.50 - 5.50 M/mcL LAB HEMETOLOGY METHOD 06/01/2024 1:[address] [facility] Hemoglobin 12.6(L) 13.5 - 17.5 g/dL LAB HEMETOLOGY METHOD 06/01/2024 1:[address] [facility] Hematocrit 40.6(L) 42.0 - 54.0 % LAB HEMETOLOGY METHOD 06/01/2024 1:[address] [facility] MCV 94.9 79.0 - 98.0 FL LAB HEMETOLOGY METHOD 06/01/2024 1:[address] [facility] MCH 29.4 27.0 - 32.0 pcg LAB HEMETOLOGY METHOD 06/01/2024 1:[address] [facility] MCHC 31.0(L) 32.0 - 37.0 g/dL LAB HEMETOLOGY METHOD 06/01/2024 1:[address] [facility] RDW 15.2(H) 11.0 - 15.0 % LAB HEMETOLOGY METHOD 06/01/2024 1:[address] [facility] Platelets 282 130 - 400 K/mcL LAB HEMETOLOGY METHOD 06/01/2024 1:[address] [facility] MPV 10.6 7.0 - 11.0 FL LAB HEMETOLOGY METHOD 06/01/2024 1:[address] [facility] NRBC 0.0 <1.0 % LAB HEMETOLOGY METHOD 06/01/2024 1:[address] [facility] NRBC Absolute 0.00 <0.10 K/mcL LAB HEMETOLOGY METHOD 06/01/2024 1:[address] [facility] Blood Venous blood specimen / Unknown Venipuncture / Unknown 06/01/2024 10:03 AM EST 06/01/2024 11:00 AM EST Herminio Lee MD LAB BLOOD ORDERABLES Final R esult [facility] [address] [place] [address], documented in this encounter Visit Diagnoses Diagnosis Shortness of breath documented in this encounter Additional Health Concerns Infection Onset Date Last Indicated Resolved Time Influenza 05/26/2024 05/26/2024 documented as of this encounter Care Teams Imaging Nurse Relationship Specialty Start Date End Date Maty Darnell MD [address] [place] [address] [address] [place] PCP - General Internal Medicine 10/24/19 documented as of this encounter
--- OUTSIDE RECORDS SUMMARY | 2024-06-19 13:56 | XMS_ITS | Patient Health Record ---
Author Organization [facility] Address [address] [address] Support Name Relationship Address Phone HUNTER BAIRD JR Guarantor Unknown Allergies No Known Allergies Reason For Referral No Information Medications Medication SIG (Take, Route, Fr equency, Duration) Notes Start Date End Date Status oxyCODONE HCl 5 MG 2 tablets Orally chadwick ry 6 hours/prn 06/07/2022 Active Zolpidem Tartrate 10 MG 1 tablet at bedt savana as needed Orally every night/prn 05/28/2022 Active Problems Problem Type SNOMED Code ICD Code Onset Dates Problem Status W/U Status Risk Notes Problem 273545220 Anxiety disorder, unspecified (F41.9) Active confirmed Problem Paroxysmal atrial fibrillation (820627915) Paroxysmal atrial fibrillation (I48.0) Active confirmed Problem 774483872 Chronic atrial fibrillation (I48.20) Active confirmed Problem Heart failure (94762357) Heart failure (I50.9) Active confirmed Problem 692962467 History of pulmonary embolism (Z86.711) Active confirmed Problem Morbid obesity (122491138) Morbid obesity (E66.01) Active confirmed Problem 332726250 Acute on chronic heart failure with preserved ejection fraction (I50.33) Active confirmed Problem Chronic diastolic heart failure (879884646) Heart failure, diastolic, chronic (I50.32) Active confirmed Problem Depression (298706560) Depression (F32.9) Active confirmed Plan Of Treatment No Information Insurance Providers Payer Name Payer Address Payer Phone Subscriber Number Group Number Insured Name Patient Relationship to Insured Coverage Start Date Coverage End Date Medicare Of [place] [address] [place] [address] [id number] HUNTER BAIRD JR Self - patient is the insured [place] [address] [place] [address] [id number] HUNTER BAIRD JR Self - patient is the insured Medical (General) History Medical History History ICD Code Alcohol dependence Alcohol intoxication Alcohol withdrawal with delirium Atrial fibrillation chronic depression Heart failure with Acute kidney injury Anemia Chest pain Heart failure preserved EF Incarcerated incisional hernia Morbid obesity Metabolic acidosis Oral thrush Pulmonary embolism Thoracic aortic aneurysm Toenail deformity Sciatica History of gastric bypass surgery S/p cholecystectomy Incisional hernia repair Inguinal hernia repair
--- OUTSIDE RECORDS SUMMARY | 2024-06-19 13:56 | XMS_ITS | Encounter Summary ---
Author Organization [facility] Address [id number] [place] [address] Care Team Providers Care Billet Checker Name Role Phone Maty Darnell MD Primary Care Provider [phone] Encounter Details Date Type Department Care Team (Late st Contact Info) Description 05/26/2024 Lab Requisition [facility] - Main Lab [address] [place] [address] Herminio Lee MD [address] [place], [place] [id number] Acute cough; Fever, unspecified Social History Tobacco Use Types [...] Procedure Name Priority Date/Time Associated Diagnosis Comments [id number], RSV, FLU A AND B QUALITATIVE RT-PCR, LOCAL REFERENCE LAB Routine 05/26/2024 7:00 AM EST Acute cough Fever, unspecified documented in this encounter Results * (ABNORMAL) [id number], RSV, Influenza A and B qualitative RT-PCR (05/26/2024 7:00 AM EST) SARS COV-2 Not Detected Not Detected LAB MOLECULAR DIAGNOSTICS METHOD 05/26/2024 3:08 PM EST [facility] Comment: Disclaimer: The manner in which this information is used to guide patient care is the responsibility of the healthcare provider. Testing was performed using the [employer] Alinity m SARS-CoV-2 test. This test has [...] for Healthcare Providers can be found at: https://www.fda.gov/media/314979/download Fact sheet for Patients can be found at: https://www.fda.gov/media/075822/download Influenza A PCR Detected(A ) Not Detected LAB MOLECULAR DIAGNOSTICS METHOD 05/26/2024 3:08 PM [facility] Comment:This patient is posi tive for influenza A. If the patient is admitted, please order the Respiratory Virus Panel PCR (Epic ID: [id number]) so our lab can subtype the influenza A, per CDC recommendations. Influenza B PCR Not Detected Not Detected LAB MOLECULAR DIAGNOSTICS METHOD 05/26/2024 3:08 PM [facility] RSV PCR Not Detected Not Detected LAB MOLECULAR DIAGNOSTICS METHOD 05/26/2024 3:08 PM [facility] Swab Nasopharyngeal structure / Unknown Non-blood Collection / Unknown 05/26/2024 7:00 AM EST 05/26/2024 11:23 AM EST us Herminio Lee MD LAB MICROBIOLOGY - GENERAL O RDERABLES Final Result [facility] [address] [place] [address], documented in this encounter Visit Diagnoses Diagnosis Acute cough Fever, unspecified documented in this encounter Additional Health Concerns Infection Onset Date Last Indicated Resolved Time Respiratory Rule-Out 05/26/2024 05/26/2024 025 3:08 PM EST Influenza 05/26/2024 05/26/2024 documented as of this encounter Care Teams Billet Checker Relationship Specialty Start Date End Date Maty Darnell MD [address] [place] [address] Dr [address] [place], [place] PCP - General Internal Medicine 10/24/19 documented as of this encounter
--- OUTSIDE RECORDS SUMMARY | 2024-06-19 13:56 | XMS_ITS | Encounter Summary ---
Author Organization [employer] Address [address] [place] [address] [address] [place] [address] Care Team Providers Care Lopper Name Role Phone Rick Arcos MD Primary Care Prov ider Reason for Visit * Reason Onset Date Comments Prior Authorization 06/03/2024 Encounter Details Date Type Department Care Team (Late st Contact Info) Description 06/03/2024 Telephone [facility] [address] [place] [address] Rick Arcos MD [address] [place] [address] Prior Authorization Social History Tobacco Use Types Packs/Day Years [...] encounter Miscellaneous Notes * Telephone Encounter - Ayla Glass LPN - 06/03/2024 9:39 AM EST PA generated for Flexeril via [facility] pending insurance decision. documented in this encounter Plan of Treatment Upcoming Encounters Date Type Department Care Team (Late st Contact Info) Description 06/25/2024 10:45 AM EDT Office Visit [facility] [address] [place] [address] Rick Arcos MD [address] [place] [address] documented as of this encounter Visit Diagnoses Not on filedocumented in this encounter Care Teams Lopper Relationship Specialty Start Date End Date Rick Arcos MD [address] [place] [address] PCP - General Internal Medicine 05/28/24 documented as of this encounter
--- OUTSIDE RECORDS SUMMARY | 2024-06-19 13:57 | XMS_ITS | Clinical Summary ---
Author Organization [facility] Address [address] [place] [address] Care Team Providers Care Copy Preparer Name Role Phone Unavailable Primary Care Provider Unavailabl e Social History Tobacco Use Types Packs/Day Years Used Date Smoking Tobacco: Never Assessed Sex and Gender Information Value Date Recorded Sex Assigned at Not on file Legal Sex Male 4:40 AM EST Gender Identity Not on file Sexual Orientation Not on file Plan of Treatment Not on file
--- OUTSIDE RECORDS SUMMARY | 2024-06-19 13:57 | XMS_ITS | Patient Health Record ---
Author Organization [facility] Address [address] [facility] [place] [address] Care Team Providers Care Marketing Mgr Name Role Phone Francisco French Unavailable [phone] Allergies No Known Allergies Reason For Referral No Information Medications Medication SIG (Take, Route, Fr equency, Duration) Notes Start Date End Date Status Eliquis Active Metoprolol Succinate ER Active Atorvastatin Calcium Active Effexor Active Ambien Active Abilify Active Immunizations Vaccine Route Administration Date Status Comme nts COVID-19 Moderna Vaccine Unknown 07/21/2020 Administered Second Dose: 08/18/2020 Social History Tobacco Use: Social History Observation Description Date Details (start date - stop date) Never Smoker NA - NA Tobacco Use/Smoking Question Answer Notes Are you a: nonsmoker Additional Findings: Tobacco Non-User Current no n-smoker Alcohol Screen Question Answer Notes Did you have a drink containing alcohol in the p ast year? No Points 0 Interpretation Negative Tobacco use other than smoking: Question Answer Notes Are you an other tobacco user? No Plan Of Treatment No Information Insurance Providers Payer Name Payer Address Payer Phone Subscriber Number Group Number Insured Name Patient Relationship to Insured Coverage Start Date Coverage End Date Medicare [facility] [address] [place] [address] [id number] KatlynBennie Self - patient is the insured Medical (General) History Medical History History ICD Code Angina Back,Hip,and Knee pain Heart disease Mumps Measles Chicken pox Joint implants/screws Surgical History Surgery Date(Month/Year) stomach surgery gall bladder [facility]
--- OUTSIDE RECORDS SUMMARY | 2024-06-19 13:57 | XMS_ITS | Clinical Summary ---
Author Organization [facility] Address [address] [place] [address] Care Team Providers Care Geothermal Powerplant Mechanic Name Role Phone [facility] Primary Care Provider [phone] Allergies Active Allergy Reactions Criticality Noted Date [...] 2 days prior to admission. Was at [facility] prior to current presentation. Assessed by addiction [...] 2 days prior to admission. Was at [facility] prior to current presentation. Assessed by addiction [...] 2 days prior to admission. Was at [facility] prior to current presentation. Assessed by addiction [...] 2 days prior to admission. Was at [facility] prior to current presentation. Assessed by addiction [...] 2 days prior to admission. Was at [facility] prior to current presentation. Assessed by addiction psych this admission who noted patient not interested in MAT for AUD. He was monitored on CIWA which was discontinued on 02/24. - outpatient PCP and AA follow up Assessment & Plan (02/26/2024 6:00 PM EST): Patient reports drinking one quart of hard liquor daily, last drink 2 days prior to admission. Was at [facility] prior to current presentation. Assessed by addiction psych this admission who noted patient not interested in MAT for AUD. He was monitored on CIWA which was discontinued on 02/24. - outpatient PCP and AA follow up Assessment & Plan (02/25/2024 7:00 PM EST): Patient reports drinking one quart of hard liquor daily, last drink 2 days prior to admission. Was at [facility] prior to current presentation. Assessed by addiction [...] chronic venous stasis. He was hospitalized at [facility] back in July 2023 and [...] chronic venous stasis. He was hospitalized at [facility] back in July 2023 and [...] chronic venous stasis. He was hospitalized at [facility] back in July 2023 and [...] chronic venous stasis. He was hospitalized at [facility] back in July 2023 and [...] the leg swelling. He was hospitalized at [facility] back in July 2023 and [...] the leg swelling. He was hospitalized at [facility] back in July 2023 and [...] the leg swelling. He was hospitalized at [facility] back in July 2023 and [...] (03/15/2024 10:34 AM EST): Patient presented from [facility] for evaluation of right lower extremity swelling and redness. He was initiated on clindamycin at [facility] but without improvement so sent to [facility] for evaluation. L. Duplex negative for DVT. [...] will need to clear while inpatient to assisted vs other housing Assessment & Plan (03/14/2024 5:17 PM EST): Patient presented from [facility] for evaluation of right lower extremity swelling and redness. He was initiated on clindamycin at [facility] but without improvement so sent to [facility] for evaluation. L. Duplex negative for DVT. [...] will need to clear while inpatient to assisted vs other housing Assessment & Plan (03/09/2024 7:28 PM EST): Was initiated on clindamycin at [facility] but without improvement so sent to [facility] for evaluation. L. Duplex negative for DVT. [...] PM EST): Was initiated on clindamycin at [facility] but without improvement so sent to [facility] for evaluation. L. Duplex negative for DVT. [...] Plan (03/07/2024 1:35 PM EST): Presents from [facility] for evaluation of right lower extremity cellulitis. Was initiated on clindamycin at [facility] but without improvement so sent to [facility] for evaluation. He was sent for further [...] Plan (02/26/2024 6:00 PM EST): Presents from [facility] for evaluation of right lower extremity cellulitis. Was initiated on clindamycin at [facility] but without improvement so sent to [facility] for evaluation. He was sent for further [...] Plan (02/25/2024 7:00 PM EST): Presents from [facility] for evaluation of right lower extremity cellulitis. Was initiated on clindamycin at [facility] but without improvement so sent to [facility] for evaluation. He was sent for further [...] Date Smoking Tobacco: Never Smokeless Tobacco: Never [facility] Utilities Answer Date Recorded In the past [...] 02/24/2024 7:29 AM EST Plan of Treatment Health Maintenance Due Date Last Done Comments Cologuard 1960 Colon Cancer Screening 1960 Colonoscopy 1960 FOBT / Fit Test 1958 Hepatitis C Screening 1960 Sigmoidoscopy 1960 Medicare AWV 1959 Pneumococcal Vaccine: 50+ Years (1 of 2 - PCV) 1977 DTaP,Tdap,and Td Vaccines (1 - Tdap) 1980 Zoster Vaccines (1 of 2) 2008 RSV Vaccine (60+ years old a nd patients) (1 - Risk 60-74 years 1-dose series) 2018 COVID-19 Vaccine (4 - 2023-2 5 season) 2023 08/10/2021, 08/18/2020, 07/21/2020 Influenza Vaccine (#1) 2023 04/05/2010 Alcohol/Substance Use Screening 04/08/2024 Depression Evaluation 04/08/2024 Health Care Proxy Review 04/08/2024 Social Drivers of Health Annual Screening 04/08/2024 Hepatitis B Vaccines Aged Out No long er eligible based on patient's age to complete this topic Additional Health Concerns Infection Onset Date Last Indicated Multidrug resistant organisms MRSA 02/22/2024 02/22/2024 Insurance MEDICARE [facility] [employer] Advance Directives Documents on File Type Date Recorded Patient Upper Tier Expl anation Health Care Proxy 03/11/2024 2:04 PM 03-11 * Full Code (Latest Code Status on File) Date Activated Date Inactivated Comments 02/22/2024 3:34 PM 03/16/2024 6:28 PM Care Teams Geothermal Powerplant Mechanic Relationship Specialty Start Date End Date [address] [address] PCP - General 02/22/24
[2024-06-19 14:46] VITALS: BP 124/82; PULSE 75; RESP 16; O2SAT 96
[2024-06-19] MEDS: vancomycin/NS 2,000 MG/500 ML PLAST..BAG 250 MG IV (15:26)
--- NOTE | 2024-06-19 15:30 | P.HPHOSP_ITS ---
History of Present Illness Date of Service: 06/19/24 Attending physician on admission: Rui Choe Chief Complaint: RLE infection Pt is a 64-year-old male with a PMH significant for?paroxysmal on Eliquis, HFpEF, hx of PE, HTN, HLD, chronic back pain on chronic opioids, alcohol use disorder, anxiety, and depression who presents to the ED with?worsening right lower extremity redness, swelling, and pain. Pt reports symptoms began 4-5 days ago. Some chills but no fever. Had a fall at home with syncope likely secondary to alcohol intoxication after binge drinking and attempting to stand from his recliner. Pt denies any significant trauma to right foot or leg. Was seen and evaluated at [facility] on 06/15 where he was admitted for syncope where workup, p.o. abx. No imaging was done at that time of his lower leg. Pt reports since then has been compliant with antibiotics, but this morning noted that his swelling, pain, and redness have increased. Pt reports a long hx of recurrent right lower extremity cellulitis after abdominal surgery in April 2023 in [facility]. States has been treated at least a dozen times for cellulitis that seemingly recurs as soon as antibiotics are done. No difficulty breathing, SOB, or cough. Denies chest pain/pressure, palpitations. No nausea, vomiting, abdominal pain. In the ED pt was tachycardic to 101 and midlly hypertensive at 130/98. Labs were significant for ESR 36, CRP 1.55, and mildly elevated AST 40. No leukocytosis. Stable H&H. No significant electrolyte abnormalities. Renal function baseline. Right foot x-ray shows minimally displaced intra-articular fracture of proximal phalanx of great toe. Pathologic fracture secondary to osteomyelitis not excluded due to marked osteopenia. X-ray of fibula and tibia negative for osteomyelitis. Pt was treated with oxycodone, vancomycin, and Zosyn. Pt will be admitted to the hospital for treatment and further evaluation of right lower extremity cellulitis that failed outpatient therapy. Review of Systems 2 Review of Systems: Negative except for that which is stated in the [facility] Medical History Atrial fibrillation with RVR Chest pain Atrial fibrillation with RVR Sciatica ARIAN (acute kidney injury) Atrial fibrillation with RVR Alcohol withdrawal delirium Oral thrush Metabolic acidosis with increased anion gap and accumulation of organic acids Alcohol withdrawal Heart failure with left ventricular ejection fraction greater than or equal to 50 percent Incarcerated incisional hernia Atrial fibrillation with RVR Alcohol dependence Alcohol intoxication Thoracic aortic aneurysm Chronic atrial fibrillation Toenail deformity Dyslipidemia Anemia History of alcohol abuse Morbid obesity Insomnia Depression Pulmonary embolism Obesity Family History Mother No problems noted. Father No problems noted. Family/Other Substance use disorder Surgical History History of incisional hernia repair S/P cholecystectomy History of inguinal hernia repair Hx of gastric bypass Social History Household Members: Other Household Members Other:: lives with mother Housing: Correction Do you presently have visiting nurse or other home services: No Unable to assess alcohol history related to: Unable to respond Alcohol intake: current Alcohol intake frequency: a few times a week Alcohol type: beer Comment: pt refusing alarms Patient Tobacco Use Status: Never used Tobacco Smoked in Last 30 Days: No e-Cigarette/Vaping Use: Never Used Second Hand Smoke Exposure: No Use of substances other than those prescribed or required for medical reasons: No Substance Use Type: Other Advance Directives: Yes Advance Directives on File: Yes Advance Directives Date on File: 03/13/21 Do you have a plan to hurt others: No Plan service: No Current occupational status: retired Meds Allergies Allergy/AdvReac Type Severity Reaction Status Date / Time No Known Allergies Allergy Verified 06/19/24 11:55 Active Medications: Current Medications Vancomycin HCl (Vancomycin/Ns) 2,000 mg in 500 mls @ 250 mls/hr IV ONCE ONE Stop: 06/19/24 16:59 Last Admin: 06/19/24 15:26 Dose: 250 mls/hr Home Medications ?Medication ?Instructions ?Recorded ?Confirmed ?Last Taken ?Type zolpidem 10 mg tablet 10 mg PO BEDTIME PRN Insomnia 01/20/22 04/19/22 Unknown History acetaminophen 325 mg tablet 650 mg PO Q4H PRN Fever Or Pain 03/03/22 04/19/22 Unknown History diltiazem HCl 180 mg 180 mg PO DAILY 03/03/22 04/19/22 03/02/22 History capsule,extended release 24 hr, controlled (DILT-XR) furosemide 80 mg tablet 80 mg PO BID PRN Edema 03/03/22 04/19/22 Unknown History spironolactone 50 mg tablet 100 mg PO BID 03/03/22 04/19/22 03/02/22 History vilazodone 20 mg tablet 20 mg PO DAILY DEPRESSION 03/03/22 04/19/22 03/02/22 History ammonium lactate 12 % topical cream 1 appl topical DAILY 04/19/22 04/19/22 Unknown History bisacodyl 10 mg rectal suppository 10 mg PA DAILY PRN Constipation 04/19/22 04/19/22 Unknown History gabapentin 400 mg capsule 400 mg PO TID 04/19/22 04/19/22 Unknown History guaifenesin 100 mg/5 mL oral liquid 200 mg PO Q4H PRN Cough 04/19/22 04/19/22 Unknown History metolazone 2.5 mg tablet 2.5 mg PO DAILY 04/19/22 04/19/22 Unknown History naloxone 4 mg/actuation nasal 4 mg intranasal Q24H PRN opioid 04/19/22 04/19/22 Unknown History spray (Narcan) depression Physical Exam 2 Vital Signs and Narrative: Vital Signs: Last Vital Signs Temp 97.0 F 06/19/24 12:01 Pulse 75 06/19/24 14:46 Resp 16 06/19/24 14:46 BP 124/82 06/19/24 14:46 Pulse Ox 96 06/19/24 14:46 O2 Del Method Room Air 06/19/24 14:46 BMI result Body Mass Index 41.4 General: AOx3, no acute distress Resp: CTA bilaterally CVS: S1, S2, RRR GI: +BS, NT, no distention, obese Skin: Warm, dry Neuro: Cranial nerves II-XII grossly intact bilaterally. Motor grossly intact bilaterally Extremities: Non-pitting lower leg edema R >L. Bilateral chronic venous stasis dermatitis changes, right lower extremity with superimposed increased swelling, warmth, erythema, and tenderness. Superficial scabbed over abrasions on anterior blackburn. As pictured below. Psych: Appropriate affect Results Labs 06/19/24 12:36 06/19/24 13:09 Labs: Laboratory Results - last 24 hr 06/19/24 06/19/24 06/19/24 12:36 12:45 13:09 MCV 88.8 MCH 29.2 MCHC 32.9 RDW 16.5 H Plt Count 182 D MPV 10.3 Immature Gran % (Auto) 0.4 Neut % (Auto) 85.9 H Lymph % (Auto) 5.6 L [place] % (Auto) 6.9 Eos % (Auto) 0.6 Baso % (Auto) 0.6 Lymph # (Auto) 0.5 L [place] # (Auto) 0.6 Eos # (Auto) 0.1 Baso # (Auto) 0.1 Abs Immat Gran (auto) 0.03 Absolute Neuts (auto) 7.1 Absolute Nucleated RBC 0.000 Nucleated RBC % (auto) 0.0 ESR 36 H Hold Blue Top SEE NOTE Anion Gap 13 Estim Creat Clear Calc 141.5 Estimated GFR > 60 Random Glucose 101 Lactic Acid 1.1 Calcium 8.1 L D Magnesium 2.0 Total Bilirubin 0.6 AST 40 H ALT 30 Alkaline Phosphatase 110 C-Reactive Protein 1.55 H Total Protein 7.4 Albumin 3.5 Imaging Radiologist's Impressions: Impressions Foot X-Ray 06/19/24 12:10 IMPRESSION: Minimally displaced intra-articular fracture of the proximal phalanx of the great toe. A pathologic fracture secondary to osteomyelitis is not excluded due to marked osteopenia. Electronically signed by: Ilia Garcia MD 06/19/2024 01:44 PM EDT RP Tibia/Fibula X-Ray 06/19/24 12:10 IMPRESSION: No plain film evidence of osteomyelitis of the right tibia or fibula. If this remains a clinical concern, three-phase bone scan or MRI could be performed. Electronically signed by: Ilia Garcia MD 06/19/2024 01:46 PM EDT RP Assessment and Plan (1) Cellulitis: Qualifiers: Site of cellulitis: extremity Site of cellulitis of extremity: lower extremity Status: Acute Plan Pt is a 64-year-old male with a PMH significant for?paroxysmal on Eliquis, HFpEF, hx of PE, HTN, HLD, chronic back pain on chronic opioids, alcohol use disorder, anxiety, and depression who presents to the ED with?worsening right lower extremity redness, swelling, and pain. Pt will be admitted to the hospital for treatment and further evaluation of right lower extremity cellulitis that failed outpatient therapy. Right lower extremity cellulitis Pt with increasing swelling, warmth, erythema, and pain x4-5 days X-ray of foot shows minimally displaced intra-articular fracture of proximal phalanx of great toe, pathologic fracture secondary to osteomyelitis can not be excluded No imaging done of foot at [facility], possibly secondary to fall at home on 06/15/2024 Treated with cefazolin at [facility] on 06/15-06/18, discharged on Augmentin b.i.d. x4 days Reports recurrent right lower extremity cellulitis x12 since abd surgery in [place] in 04/2023 We will get MRI of right foot to rule out osteomyelitis CRP and ESR only mildly elevated Does not meet sepsis criteria: Tachycardia but no fever, tachypnea, or leukocytosis Pt is started on broad-spectrum antibiotics in the ED Will treat with vanc and Zosyn for now, started 06/19/2024 Analgesics for pain management Consider ID consult if records corroborate recurrent cellulitis Consider ortho consult for walking boot fitting PT evaluation Follow blood cultures Alcohol use disorder Reports last drink on Saturday prior to [facility] presentation Pt not in active withdrawal at [facility] Monitor on CIWA tonight HFpEF Not in acute exacerbation: pt appears euvolemic Continue spironolactone, torsemide Paroxysmal AFib Continue metoprolol, diltiazem, and Eliquis HLD Continue statin Chronic back pain Continue home opioids BPH Continue Flomax Gout Continue allopurinol GERD Continue PPI Obesity class III Encourage weight loss Full Code Attending:?Dr. Choe DVT Prophylaxis: On Eliquis Pt will require a hospitalization of at least two nights for treatment of?right lower extremity cellulitis that failed outpatient therapy and requires inpatient level of care for administration of IV antibiotics. Quality Stroke Does the patient have a stroke diagnosis?: No VTE Prior VTE?: No VTE Risk Level:: Medical - moderate - high VTE Device Contraindication: Treatment Not Indicated VTE Drug Contraindication: N/A - Med Ordered
--- NOTE | 2024-06-19 16:51 | PC.NURSE ---
20g placed to Pts RAC significantly positional and Pt having a difficult time remaining still. 20g U/S guided IV placed to L upper arm. Pt will be proceeding to MRI for imaging. MRI screening form completed and faxed to MRI; hard copy placed in chart.
[2024-06-19 17:00] VITALS: BP 113/75; PULSE 61; RESP 16; O2SAT 96
--- NOTE | 2024-06-19 17:09 | PC.NURSE ---
Pt off unit to MRI.
[2024-06-19] MEDS: gadobutroL 10 ML VIAL IVPUSH (17:38)
[2024-06-19] MEDS: oxyCODONE HCl Immed Release 5 MG TABLET PO (17:57)
[2024-06-19 18:41] VITALS: BP 128/72; PULSE 75; RESP 16; O2SAT 95
--- NOTE | 2024-06-19 19:21 | PC.NURSE ---
Pts US guided line pulled out by pt. ICU called for placement of another line Plan of care ongoing.
--- NOTE | 2024-06-19 19:23 | PC.NURSE ---
This RN assumed pt care @ 1900. Pt a&ox4, no signs of distress. Pt resting in bed comfortably, on cell phone. Pt denies pain at this time Plan of care ongoing.
[2024-06-19 19:53] VITALS: BP 101/65; PULSE 74; RESP 20; TEMP 36.2; O2SAT 96
--- NOTE | 2024-06-19 20:00 | PHA.MEDREC ---
Addendum entered by Wily Torre [facility] 06/19/24 20:29: MED REC CHECKED BY [facility] Original Note: Pharmacy Consult ? Medication Reconciliation Pharmacy has completed the medication reconciliation. Spoke with patient to confirm medications and patient was not sure what he was taking right now stating theres too many to remember when I asked him about his medications, he was able to confirm some by name but did not remember dosages of them. I asked where he was filling and he stated he was filling everything at [facility]. I called them and they stated at first he had transferred out to [facility] and gave me their phone number. I called [facility] and they stated they have not started filling anything for the patient except for Tylenol 325mg tabs. I called [facility] back and they stated the patient had some stuff filled in the beginning of the month but stated [facility] in [place] [employer] had called and canceled the medications at the pharmacy to fill at their facility, and they also faxed us a list of medications they had filled from 05/26/24 and 06/01/24. I called and left voicemails and faxed [facility] multiple times with no call back or fax back. I utilize the list from [facility] to confirm the med rec. Patient confirmed he was taking Metoprolol twice a day but didn't know the dosage and there were no fills for that recently at [facility], I added that on the med rec unconfirmed and we will notify provider about the medication. Patient also confirmed his Oxycodone 5mg tab and stated he takes 10mg in the morning on-top of taking 5mg QID, I kept it as 5mg QID as needed since that is how it was recently filled.
[2024-06-19] MEDS: Acetaminophen 325 MG TABLET 650 MG PO (21:46)
--- NOTE | 2024-06-19 21:48 | PC.NURSE ---
Pt medicated per [facility] Plan of care ongoing.
[2024-06-19] MEDS: Zolpidem Tartrate 5 MG TABLET PO (23:06)
[2024-06-19] MEDS: Apixaban 2.5 MG TABLET PO (23:06)
[2024-06-19] MEDS: Gabapentin 400 MG CAPSULE PO (23:06)
[2024-06-19] MEDS: Atorvastatin Calcium 40 MG TABLET PO (23:06)
--- NOTE | 2024-06-19 23:09 | PC.NURSE ---
Pt medicated per [facility] Plan of care ongoing.
[2024-06-20] VITALS (7 sets, daily range): BP systolic 100–120; BP diastolic 62–77; PULSE 62–80; RESP 17–20; TEMP 36.1–36.6; O2SAT 92–97
[2024-06-20] MEDS: oxyCODONE HCl Immed Release 5 MG TABLET PO ×2 (00:10→06:13)
[2024-06-20] MEDS: Piperacillin Sodium/Tazobactam 3.375 GM in 0.9 % Sodium Chloride 50 ML IV ×5 (00:10→23:00)
--- NOTE | 2024-06-20 00:15 | PC.NURSE ---
Pt reporting 10/10 leg pain Pt medicated per [facility] Plan of care ongoing.
--- NOTE | 2024-06-20 03:25 | PC.NURSE ---
patient refused bed alarm, educated him on the purpose but still declined
[2024-06-20] MEDS: Omeprazole 20 MG CAPSULE.DR PO (06:01)
[2024-06-20] MEDS: vancomycin HCL 1,500 MG in 0.9 % Sodium Chloride 500 ML 333.33 MG IV (06:15)
[2024-06-20] MEDS: Torsemide 20 MG TABLET PO (08:44)
[2024-06-20] MEDS: allopurinoL 100 MG TABLET PO (08:44)
[2024-06-20] MEDS: Potassium Chloride ER 20 MEQ TAB.ER.PRT PO (08:44)
[2024-06-20] MEDS: 0.9 % Sodium Chloride Flush 3 ML SYRINGE IVFLUSH (08:44)
[2024-06-20] MEDS: Spironolactone 25 MG TABLET 50 MG PO (08:44)
[2024-06-20] MEDS: Digoxin 0.25 MG TABLET PO (08:44)
[2024-06-20] MEDS: Apixaban 2.5 MG TABLET PO ×2 (08:44→20:00)
[2024-06-20] MEDS: Tamsulosin HCL 0.4 MG CAPSULE PO (08:44)
[2024-06-20] MEDS: dilTIAZem HCL CD 120 MG CAP.ER.DEG PO (08:44)
[2024-06-20] MEDS: Venlafaxine HCl ER 37.5 MG CAP.ER.24H PO (08:44)
[2024-06-20] MEDS: Gabapentin 400 MG CAPSULE PO ×3 (08:44→20:00)
[2024-06-20] MEDS: Acetaminophen 325 MG TABLET 650 MG PO (08:46)
--- NOTE | 2024-06-20 09:39 | P.PNIM_ITS ---
Subjective Subjective Date of Service: 06/20/24 Interval History: pain Physical Exam 2 Vital Signs: Vital Signs: Last Vital Signs Temp 98 F 06/20/24 06:57 Pulse 80 06/20/24 08:31 Resp 17 06/20/24 06:57 BP 117/75 06/20/24 08:31 Pulse Ox 97 06/20/24 06:57 O2 Del Method Room Air 06/20/24 06:57 BMI result Body Mass Index 41.4 improved erythema of rle, chronic venous stasis Objective Data Active Medications Acetaminophen (Acetaminophen 325 Mg Tablet) 650 mg PO Q6H PRN PRN Reason: Pain, Mild 1-3,fever,headache Last Admin: 06/20/24 08:46 Dose: 650 mg Documented By: LISS Albuterol Sulfate (Albuterol Sulfate 90 Mcg 8 Gm Inhaler) 2 puff INHALE Q6H PRN PRN Reason: Shortness Of Breath Or Wheezing Allopurinol (Allopurinol 100 Mg Tablet) 100 mg PO DAILY [facility] Last Admin: 06/20/24 08:44 Dose: 100 mg Documented By: LISS Apixaban (Apixaban 2.5 Mg Tablet) 2.5 mg PO BID [facility] Last Admin: 06/20/24 08:44 Dose: 2.5 mg Documented By: LISS Atorvastatin Calcium (Atorvastatin Calcium 40 Mg Tablet) 40 mg PO BEDTIME [facility] Last Admin: 06/19/24 23:06 Dose: 40 mg Documented By: ELIF Calcium Carbonate (Calcium Carbonate 750 Mg Tab.Chew) 750 mg PO Q4H PRN PRN Reason: Heartburn Digoxin (Digoxin 0.25 Mg Tablet) 0.25 mg PO DAILY [facility]; Protocol Last Admin: 06/20/24 08:44 Dose: 0.25 mg Documented By: LISS Diltiazem HCl (Diltiazem Hcl Cd 120 Mg Cap.Er.Deg) 120 mg PO DAILY [facility]; Protocol Last Admin: 06/20/24 08:44 Dose: 120 mg Documented By: LISS Furosemide (Furosemide 40 Mg Tablet) 80 mg PO BID PRN; Protocol PRN Reason: Edema Gabapentin (Gabapentin 400 Mg Capsule) 400 mg PO TID [facility] Last Admin: 06/20/24 08:44 Dose: 400 mg Documented By: LISS Piperacillin Sod/Tazobactam (Sod 3.375 gm/ Sodium Chloride) 50 mls @ 100 mls/hr IV Q6H [facility] Last Infusion: 06/20/24 06:21 Dose: Infused Documented By: DANIE Vancomycin HCl 1,500 mg/ (Sodium Chloride) 500 mls @ 333.333 mls/hr IV Q12H [facility] Last Infusion: 06/20/24 08:22 Dose: Infused Documented By: LISS Magnesium Hydroxide (Milk Of Magnesia 30 Ml Oral.Susp) 30 ml PO DAILY PRN PRN Reason: Constipation Melatonin (Melatonin 3 Mg Tablet) 6 mg PO BEDTIME PRN PRN Reason: Insomnia Omeprazole (Omeprazole 20 Mg Capsule.Dr) 20 mg PO DAILY@0630 [facility] Last Admin: 06/20/24 06:01 Dose: 20 mg Documented By: DANIE Oxycodone HCl (Oxycodone Hcl Immed Release 5 Mg Tablet) 10 mg PO Q4H PRN PRN Reason: Pain, Severe (Pain Scale 7-10) Pharmacy Consult (Consult Rx Vancomycin Dosing) 1 each MISCELLANE DAILY PRN PRN Reason: Consult order Potassium Chloride (Potassium Chloride Er 20 Meq Tab.Er.Prt) 20 meq PO DAILY [facility] Last Admin: 06/20/24 08:44 Dose: 20 meq Documented By: LISS Senna (Sennosides 8.6 Mg Tablet) 8.6 mg PO BID PRN PRN Reason: Constipation Sodium Chloride (0.9 % Sodium Chloride Flush 3 Ml Syringe) 3 ml IVFLUSH QSHIFT [facility] Last Admin: 06/20/24 08:44 Dose: 3 ml Documented By: LISS Spironolactone (Spironolactone 25 Mg Tablet) 50 mg PO DAILY [facility]; Protocol Last Admin: 06/20/24 08:44 Dose: 50 mg Documented By: LISS Tamsulosin HCl (Tamsulosin Hcl 0.4 Mg Capsule) 0.4 mg PO DAILY [facility] Last Admin: 06/20/24 08:44 Dose: 0.4 mg Documented By: LISS Torsemide (Torsemide 20 Mg Tablet) 20 mg PO DAILY [facility]; Protocol Last Admin: 06/20/24 08:44 Dose: 20 mg Documented By: LISS Venlafaxine HCl (Venlafaxine Hcl Er 37.5 Mg Cap.Er.24h) 37.5 mg PO DAILY [facility] Last Admin: 06/20/24 08:44 Dose: 37.5 mg Documented By: LISS Vilazodone HCl (Vilazodone Hcl 20 Mg Tablet) 20 mg PO DAILY [facility] Zolpidem Tartrate (Zolpidem Tartrate 5 Mg Tablet) 5 mg PO BEDTIME PRN PRN Reason: Sleep Last Admin: 06/19/24 23:06 Dose: 5 mg Documented By: ELIF Labs 06/19/24 12:36 06/19/24 13:09 Labs: Laboratory Results - last 24 hr 06/19/24 06/19/24 06/19/24 12:36 12:45 13:09 MCV 88.8 MCH 29.2 MCHC 32.9 RDW 16.5 H Plt Count 182 D MPV 10.3 Immature Gran % (Auto) 0.4 Neut % (Auto) 85.9 H Lymph % (Auto) 5.6 L [place] % (Auto) 6.9 Eos % (Auto) 0.6 Baso % (Auto) 0.6 Lymph # (Auto) 0.5 L [place] # (Auto) 0.6 Eos # (Auto) 0.1 Baso # (Auto) 0.1 Abs Immat Gran (auto) 0.03 Absolute Neuts (auto) 7.1 Absolute Nucleated RBC 0.000 Nucleated RBC % (auto) 0.0 ESR 36 H Hold Blue Top SEE NOTE Anion Gap 13 Estim Creat Clear Calc 141.5 Estimated GFR > 60 Random Glucose 101 Lactic Acid 1.1 Calcium 8.1 L D Magnesium 2.0 Total Bilirubin 0.6 AST 40 H ALT 30 Alkaline Phosphatase 110 C-Reactive Protein 1.55 H Total Protein 7.4 Albumin 3.5 Assessment and Plan (1) Chronic atrial fibrillation: Status: Acute Plan 64M PMH pafib on eliquis, chronic diastolic CHF, history of pulmonary embolism, hypertension, hyperlipidemia, chronic back pain with opiate dependence, mood disorder, alcohol dependence presented with worsening right lower extremity redness and swelling Acute recurrent right lower extremity cellulitis in the background of chronic venous stasis Continue vanc and Zosyn, follow up cultures, concern for right foot osteomyelitis check MRI PT eval Steroids and local compression Alcohol dependence Monitor for CIWA No signs of withdrawal Chronic diastolic CHF Continue Aldactone and torsemide Paroxysmal AFib Continue metoprolol, diltiazem, Eliquis Morbid obesity Weight loss Chronic back pain Continue oxycodone BPH Flomax Gout Allopurinol History of PE on Eliquis Full Code reason for continued hospitalization: IV antibiotics for recurrent infection awaiting cultures Quality Stroke Does the patient have a stroke diagnosis?: No VTE Prior VTE?: No VTE Risk Level:: Medical - moderate - high VTE Device Contraindication: Treatment Not Indicated VTE Drug Contraindication: N/A - Med Ordered
[2024-06-20] MEDS: Vilazodone HCL 20 MG TABLET PO (09:53)
[2024-06-20] MEDS: oxyCODONE HCl Immed Release 5 MG TABLET 10 MG PO ×4 (10:35→22:58)
--- NOTE | 2024-06-20 16:16 | MHC.CM.PN ---
IMM delivered. Patient lives in a home alone. No DME. Currently independent w/ ADL's, but feels he needs assistance. Reports he is working w/ [facility] and requesting [employer], [employer] and home making services. States he is not active w/ a PCP, but has a new patient appt scheduled for 06/25 w/ Dr Schuster at [facility]. DP: PT rec STR vs home w/ services (if patient is cleared on stairs). Patient prefers STR if eligible and is aware he would not be able to get VNA services until he is active w/ PCP. No facility preference. Referrals sent via [facility]. Transport TBD by dispo - BLS vs patient's landlord. CM will continue to follow.
[2024-06-20 16:22] LABS: Vancomycin Random 18.5 mcg/mL (15-20)
[2024-06-20 16:23] LABS: Creatinine Clr Calc Pharmacy 107.9; Estimated Glomerular Filt Rate > 60
--- NOTE | 2024-06-20 16:37 | HE.PHANOTE ---
re [facility] Patients level came back this evening at 18.5. Patients indication is skin. Patient has only received load and 1 dose of 1500 mg, scr elevated to 0.97 from 0.74 yesterday. Will decrease frequency to Q24H and dose to 1000 mg. Next level to be taken 06/22 @0600. Changing dosing to be Q24H @0800 to ensure pharmacy is inhouse to assess next level. Predicted AUC 512
[2024-06-20] MEDS: Atorvastatin Calcium 40 MG TABLET PO (20:00)
[2024-06-20] MEDS: Zolpidem Tartrate 5 MG TABLET PO ×2 (20:02→20:45)
[2024-06-21] MEDS: 0.9 % Sodium Chloride Flush 3 ML SYRINGE IVFLUSH ×4 (00:44→23:43)
[2024-06-21] MEDS: oxyCODONE HCl Immed Release 5 MG TABLET 10 MG PO ×5 (02:57→20:10)
[2024-06-21 04:00] VITALS: BP 133/83; PULSE 89; RESP 20; TEMP 36.1; O2SAT 96
[2024-06-21] MEDS: Omeprazole 20 MG CAPSULE.DR PO (05:20)
[2024-06-21] MEDS: Piperacillin Sodium/Tazobactam 3.375 GM in 0.9 % Sodium Chloride 50 ML IV ×4 (05:21→23:42)
[2024-06-21 07:30] LABS: Hematocrit 43.7 % (42.0-52.0); Hemoglobin 13.2 g/dl (14.0-18.0); Mean Corpuscular HGB Conc 30.2 g/dl (31.0-36.0); Mean Corpuscular Hemoglobin 28.8 pg (27.0-33.0); Mean Corpuscular Volume 95.2 fL (80.0-98.0); Mean Platelet Volume 11.1 fL (9.4-12.4); Platelet Count 160 X10*3/uL (160-400); Red Blood Count 4.59 X10*6/uL (4.60-5.80); Red Cell Distribution Width 16.9 % (11.0-16.0); White Blood Count 7.7 X10*3/uL (4.8-10.8)
[2024-06-21 07:52] LABS: Anion Gap 10 (12-20); Blood Urea Nitrogen 20 mg/dL (9-16); Calcium 8.8 mg/dL (8.4-10.2); Carbon Dioxide 30 mmol/L (22-29); Chloride 102 mmol/L (96-108); Creatinine Clr Calc Pharmacy 127.7; Estimated Glomerular Filt Rate > 60; Glucose Random 78 mg/dL (60-115); Magnesium 2.3 mg/dL (1.6-2.6); Potassium 3.7 mmol/L (3.3-5.1); Sodium 138 mmol/L (135-145)
[2024-06-21 08:00] VITALS: BP 116/88; PULSE 82; RESP 16; TEMP 36.5; O2SAT 96
[2024-06-21] MEDS: Spironolactone 25 MG TABLET 50 MG PO (08:35)
[2024-06-21] MEDS: vancomycin HCL 1,000 MG in 0.9 % Sodium Chloride 250 ML 270 MG IV (08:35)
[2024-06-21] MEDS: Torsemide 20 MG TABLET PO (08:35)
[2024-06-21] MEDS: allopurinoL 100 MG TABLET PO (08:35)
[2024-06-21] MEDS: Tamsulosin HCL 0.4 MG CAPSULE PO (08:35)
[2024-06-21] MEDS: Venlafaxine HCl ER 37.5 MG CAP.ER.24H PO (08:36)
[2024-06-21] MEDS: Gabapentin 400 MG CAPSULE PO ×3 (08:36→20:10)
[2024-06-21] MEDS: Vilazodone HCL 20 MG TABLET PO (08:36)
[2024-06-21] MEDS: Potassium Chloride ER 20 MEQ TAB.ER.PRT PO (08:36)
[2024-06-21] MEDS: dilTIAZem HCL CD 120 MG CAP.ER.DEG PO (08:36)
[2024-06-21] MEDS: Digoxin 0.25 MG TABLET PO (08:36)
[2024-06-21] MEDS: Apixaban 2.5 MG TABLET PO ×2 (08:36→20:10)
--- NOTE | 2024-06-21 08:36 | P.PNIM_ITS ---
Subjective Subjective Date of Service: 06/21/24 Interval History: pain Physical Exam 2 Vital Signs: Vital Signs: Last Vital Signs Temp 97.7 F 06/21/24 08:00 Pulse 82 06/21/24 08:00 Resp 16 06/21/24 08:00 BP 116/88 06/21/24 08:00 Pulse Ox 96 06/21/24 08:00 O2 Del Method Room Air 06/21/24 08:00 BMI result Body Mass Index 41.4 improved erythema of rle, chronic venous stasis Objective Data Active Medications Acetaminophen (Acetaminophen 325 Mg Tablet) 650 mg PO Q6H PRN PRN Reason: Pain, Mild 1-3,fever,headache Last Admin: 06/20/24 08:46 Dose: 650 mg Documented By: LISS Albuterol Sulfate (Albuterol Sulfate 90 Mcg 8 Gm Inhaler) 2 puff INHALE Q6H PRN PRN Reason: Shortness Of Breath Or Wheezing Allopurinol (Allopurinol 100 Mg Tablet) 100 mg PO DAILY [facility] Last Admin: 06/20/24 08:44 Dose: 100 mg Documented By: LISS Apixaban (Apixaban 2.5 Mg Tablet) 2.5 mg PO BID [facility] Last Admin: 06/20/24 20:00 Dose: 2.5 mg Documented By: DANIE Atorvastatin Calcium (Atorvastatin Calcium 40 Mg Tablet) 40 mg PO BEDTIME [facility] Last Admin: 06/20/24 20:00 Dose: 40 mg Documented By: DANIE Calcium Carbonate (Calcium Carbonate 750 Mg Tab.Chew) 750 mg PO Q4H PRN PRN Reason: Heartburn Digoxin (Digoxin 0.25 Mg Tablet) 0.25 mg PO DAILY [facility]; Protocol Last Admin: 06/20/24 08:44 Dose: 0.25 mg Documented By: LISS Diltiazem HCl (Diltiazem Hcl Cd 120 Mg Cap.Er.Deg) 120 mg PO DAILY [facility]; Protocol Last Admin: 06/20/24 08:44 Dose: 120 mg Documented By: LISS Furosemide (Furosemide 40 Mg Tablet) 80 mg PO BID PRN; Protocol PRN Reason: Edema Gabapentin (Gabapentin 400 Mg Capsule) 400 mg PO TID [facility] Last Admin: 06/20/24 20:00 Dose: 400 mg Documented By: DANIE Piperacillin Sod/Tazobactam (Sod 3.375 gm/ Sodium Chloride) 50 mls @ 100 mls/hr IV Q6H [facility] Last Infusion: 06/21/24 06:00 Dose: Infused Documented By: DANIE Vancomycin HCl 1,000 mg/ (Sodium Chloride) 270 mls @ 270 mls/hr IV Q24H [facility] Magnesium Hydroxide (Milk Of Magnesia 30 Ml Oral.Susp) 30 ml PO DAILY PRN PRN Reason: Constipation Melatonin (Melatonin 3 Mg Tablet) 6 mg PO BEDTIME PRN PRN Reason: Insomnia Omeprazole (Omeprazole 20 Mg Capsule.Dr) 20 mg PO DAILY@0630 [facility] Last Admin: 06/21/24 05:20 Dose: 20 mg Documented By: DANIE Oxycodone HCl (Oxycodone Hcl Immed Release 5 Mg Tablet) 10 mg PO Q4H PRN PRN Reason: Pain, Severe (Pain Scale 7-10) Last Admin: 06/21/24 07:07 Dose: 10 mg Documented By: LISS Pharmacy Consult (Consult Rx Vancomycin Dosing) 1 each MISCELLANE DAILY PRN PRN Reason: Consult order Potassium Chloride (Potassium Chloride Er 20 Meq Tab.Er.Prt) 20 meq PO DAILY [facility] Last Admin: 06/20/24 08:44 Dose: 20 meq Documented By: LISS Senna (Sennosides 8.6 Mg Tablet) 8.6 mg PO BID PRN PRN Reason: Constipation Sodium Chloride (0.9 % Sodium Chloride Flush 3 Ml Syringe) 3 ml IVFLUSH QSHIFT [facility] Last Admin: 06/21/24 07:13 Dose: 3 ml Documented By: LISS Spironolactone (Spironolactone 25 Mg Tablet) 50 mg PO DAILY [facility]; Protocol Last Admin: 06/20/24 08:44 Dose: 50 mg Documented By: LISS Tamsulosin HCl (Tamsulosin Hcl 0.4 Mg Capsule) 0.4 mg PO DAILY [facility] Last Admin: 06/20/24 08:44 Dose: 0.4 mg Documented By: LISS Torsemide (Torsemide 20 Mg Tablet) 20 mg PO DAILY [facility]; Protocol Last Admin: 06/20/24 08:44 Dose: 20 mg Documented By: LISS Triamcinolone Acetonide (Triamcinolone Acet 0.1 % Cream 15 Gm Tube) 1 appl TOPICAL DAILY [facility]; Protocol Venlafaxine HCl (Venlafaxine Hcl Er 37.5 Mg Cap.Er.24h) 37.5 mg PO DAILY [facility] Last Admin: 06/20/24 08:44 Dose: 37.5 mg Documented By: LISS Vilazodone HCl (Vilazodone Hcl 20 Mg Tablet) 20 mg PO DAILY [facility] Last Admin: 06/20/24 09:53 Dose: 20 mg Documented By: LISS Zolpidem Tartrate (Zolpidem Tartrate 5 Mg Tablet) 5 mg PO BEDTIME PRN PRN Reason: Sleep Last Admin: 06/20/24 20:02 Dose: 5 mg Documented By: DANIE Labs 06/21/24 06:58 06/21/24 06:58 Labs: Laboratory Results - last 24 hr 06/20/24 06/21/24 15:56 06:58 MCV 95.2 D MCH 28.8 MCHC 30.2 L RDW 16.9 H Plt Count 160 MPV 11.1 Absolute Nucleated RBC 0.000 Nucleated RBC % (auto) 0.0 Anion Gap 10 L Estim Creat Clear Calc 107.9 127.7 Estimated GFR > 60 > 60 Random Glucose 78 Calcium 8.8 D Magnesium 2.3 Random Vancomycin 18.5 Microbiology Microbiology Results: Microbiology 06/19/24 12:46 Blood Culture - Preliminary Blood - Venous No growth after 24 hours. 06/19/24 12:36 Blood Culture - Preliminary Blood - Venous No growth after 24 hours. Assessment and Plan (1) Chronic atrial fibrillation: Status: Acute Plan 64M PMH pafib on eliquis, chronic diastolic CHF, history of pulmonary embolism, hypertension, hyperlipidemia, chronic back pain with opiate dependence, mood disorder, alcohol dependence presented with worsening right lower extremity redness and swelling Acute recurrent right lower extremity cellulitis in the background of chronic venous stasis Continue vanc and Zosyn, follow up cultures, concern for right foot osteomyelitis MRI unclear, esr and crp mildly elevated ID eval PT eval appreciated - home vs str local Steroids and local compression Alcohol dependence Monitor for CIWA No signs of withdrawal Chronic diastolic CHF Continue Aldactone and torsemide Paroxysmal AFib Continue metoprolol, diltiazem, Eliquis Morbid obesity Weight loss Chronic back pain Continue oxycodone BPH Flomax Gout Allopurinol History of PE on Eliquis Full Code reason for continued hospitalization: IV antibiotics for recurrent infection awaiting cultures Quality Stroke Does the patient have a stroke diagnosis?: No VTE Prior VTE?: No VTE Risk Level:: Medical - moderate - high VTE Device Contraindication: Treatment Not Indicated VTE Drug Contraindication: N/A - Med Ordered
[2024-06-21 15:39] VITALS: BP 121/74; PULSE 85; RESP 14; TEMP 36.3; O2SAT 96
[2024-06-21 20:00] VITALS: BP 124/64; PULSE 80; RESP 18; TEMP 36.3; O2SAT 97
[2024-06-21] MEDS: Atorvastatin Calcium 40 MG TABLET PO (20:10)
[2024-06-21] MEDS: Zolpidem Tartrate 5 MG TABLET PO ×2 (20:23→20:24)
[2024-06-22] MEDS: oxyCODONE HCl Immed Release 5 MG TABLET 10 MG PO ×5 (00:11→15:53)
[2024-06-22 03:02] VITALS: BP 128/60; PULSE 82; RESP 18; TEMP 36.3; O2SAT 96
[2024-06-22] MEDS: Omeprazole 20 MG CAPSULE.DR PO (05:25)
[2024-06-22] MEDS: Piperacillin Sodium/Tazobactam 3.375 GM in 0.9 % Sodium Chloride 50 ML IV ×2 (05:26→12:00)
[2024-06-22 06:21] LABS: Estimated Glomerular Filt Rate > 60; Vancomycin Random 8.7 mcg/mL (15-20)
[2024-06-22 07:27] VITALS: BP 108/59; PULSE 67; RESP 18; TEMP 36.1; O2SAT 98
[2024-06-22] MEDS: dilTIAZem HCL CD 120 MG CAP.ER.DEG PO (08:17)
[2024-06-22] MEDS: 0.9 % Sodium Chloride Flush 3 ML SYRINGE IVFLUSH (08:17)
[2024-06-22] MEDS: Tamsulosin HCL 0.4 MG CAPSULE PO (08:17)
[2024-06-22] MEDS: Digoxin 0.25 MG TABLET PO (08:17)
[2024-06-22] MEDS: Vilazodone HCL 20 MG TABLET PO (08:17)
[2024-06-22] MEDS: allopurinoL 100 MG TABLET PO (08:18)
[2024-06-22] MEDS: Spironolactone 25 MG TABLET 50 MG PO (08:18)
[2024-06-22] MEDS: Gabapentin 400 MG CAPSULE PO ×2 (08:18→15:46)
[2024-06-22] MEDS: Apixaban 2.5 MG TABLET PO (08:18)
[2024-06-22] MEDS: Torsemide 20 MG TABLET PO (08:18)
[2024-06-22] MEDS: Venlafaxine HCl ER 37.5 MG CAP.ER.24H PO (08:18)
[2024-06-22] MEDS: Potassium Chloride ER 20 MEQ TAB.ER.PRT PO (08:18)
[2024-06-22] MEDS: vancomycin HCL 750 MG in 0.9 % Sodium Chloride 250 ML 265 MG IV (08:32)
[2024-06-22] MEDS: Triamcinolone Acet 0.1 % Cream 15 GM TUBE 1 APPL TOPICAL (08:44)
--- NOTE | 2024-06-22 08:51 | P.PNIM_ITS ---
Subjective Subjective Date of Service: 06/22/24 Interval History: much improved Physical Exam 2 Vital Signs: Vital Signs: Last Vital Signs Temp 96.9 F 06/22/24 07:27 Pulse 67 06/22/24 07:27 Resp 18 06/22/24 07:27 BP 108/59 L 06/22/24 07:27 Pulse Ox 98 06/22/24 07:27 O2 Del Method Room Air 06/22/24 07:27 BMI result Body Mass Index 41.4 improved erythema of rle, chronic venous stasis Objective Data Active Medications Acetaminophen (Acetaminophen 325 Mg Tablet) 650 mg PO Q6H PRN PRN Reason: Pain, Mild 1-3,fever,headache Last Admin: 06/20/24 08:46 Dose: 650 mg Documented By: LISS Albuterol Sulfate (Albuterol Sulfate 90 Mcg 8 Gm Inhaler) 2 puff INHALE Q6H PRN PRN Reason: Shortness Of Breath Or Wheezing Allopurinol (Allopurinol 100 Mg Tablet) 100 mg PO DAILY [facility] Last Admin: 06/22/24 08:18 Dose: 100 mg Documented By: KATALINA Apixaban (Apixaban 2.5 Mg Tablet) 2.5 mg PO BID [facility] Last Admin: 06/22/24 08:18 Dose: 2.5 mg Documented By: KATALINA Atorvastatin Calcium (Atorvastatin Calcium 40 Mg Tablet) 40 mg PO BEDTIME [facility] Last Admin: 06/21/24 20:10 Dose: 40 mg Documented By: DANIE Calcium Carbonate (Calcium Carbonate 750 Mg Tab.Chew) 750 mg PO Q4H PRN PRN Reason: Heartburn Digoxin (Digoxin 0.25 Mg Tablet) 0.25 mg PO DAILY [facility]; Protocol Last Admin: 06/22/24 08:17 Dose: 0.25 mg Documented By: KATALINA Diltiazem HCl (Diltiazem Hcl Cd 120 Mg Cap.Er.Deg) 120 mg PO DAILY [facility]; Protocol Last Admin: 06/22/24 08:17 Dose: 120 mg Documented By: KATALINA Furosemide (Furosemide 40 Mg Tablet) 80 mg PO BID PRN; Protocol PRN Reason: Edema Gabapentin (Gabapentin 400 Mg Capsule) 400 mg PO TID [facility] Last Admin: 06/22/24 08:18 Dose: 400 mg Documented By: KATALINA Piperacillin Sod/Tazobactam (Sod 3.375 gm/ Sodium Chloride) 50 mls @ 100 mls/hr IV Q6H [facility] Last Infusion: 06/22/24 06:10 Dose: Infused Documented By: DANIE Vancomycin HCl 750 mg/ Sodium (Chloride) 265 mls @ 265 mls/hr IV Q12H [facility] Last Admin: 06/22/24 08:32 Dose: 265 mls/hr Documented By: KATHE Magnesium Hydroxide (Milk Of Magnesia 30 Ml Oral.Susp) 30 ml PO DAILY PRN PRN Reason: Constipation Melatonin (Melatonin 3 Mg Tablet) 6 mg PO BEDTIME PRN PRN Reason: Insomnia Omeprazole (Omeprazole 20 Mg Capsule.Dr) 20 mg PO DAILY@0630 [facility] Last Admin: 06/22/24 05:25 Dose: 20 mg Documented By: DANIE Oxycodone HCl (Oxycodone Hcl Immed Release 5 Mg Tablet) 10 mg PO Q4H PRN PRN Reason: Pain, Severe (Pain Scale 7-10) Last Admin: 06/22/24 08:17 Dose: 10 mg Documented By: KATALINA Pharmacy Consult (Consult Rx Vancomycin Dosing) 1 each MISCELLANE DAILY PRN PRN Reason: Consult order Potassium Chloride (Potassium Chloride Er 20 Meq Tab.Er.Prt) 20 meq PO DAILY [facility] Last Admin: 06/22/24 08:18 Dose: 20 meq Documented By: KATALINA Senna (Sennosides 8.6 Mg Tablet) 8.6 mg PO BID PRN PRN Reason: Constipation Sodium Chloride (0.9 % Sodium Chloride Flush 3 Ml Syringe) 3 ml IVFLUSH QSHIFT [facility] Last Admin: 06/22/24 08:17 Dose: 3 ml Documented By: KATALINA Spironolactone (Spironolactone 25 Mg Tablet) 50 mg PO DAILY [facility]; Protocol Last Admin: 06/22/24 08:18 Dose: 50 mg Documented By: KATALINA Tamsulosin HCl (Tamsulosin Hcl 0.4 Mg Capsule) 0.4 mg PO DAILY [facility] Last Admin: 06/22/24 08:17 Dose: 0.4 mg Documented By: KATALINA Torsemide (Torsemide 20 Mg Tablet) 20 mg PO DAILY [facility]; Protocol Last Admin: 06/22/24 08:18 Dose: 20 mg Documented By: KATALINA Triamcinolone Acetonide (Triamcinolone Acet 0.1 % Cream 15 Gm Tube) 1 appl TOPICAL DAILY [facility]; Protocol Last Admin: 06/22/24 08:44 Dose: 1 appl Documented By: KATHE Venlafaxine HCl (Venlafaxine Hcl Er 37.5 Mg Cap.Er.24h) 37.5 mg PO DAILY [facility] Last Admin: 06/22/24 08:18 Dose: 37.5 mg Documented By: KATALINA Vilazodone HCl (Vilazodone Hcl 20 Mg Tablet) 20 mg PO DAILY [facility] Last Admin: 06/22/24 08:17 Dose: 20 mg Documented By: KATALINA Zolpidem Tartrate (Zolpidem Tartrate 5 Mg Tablet) 5 mg PO BEDTIME PRN PRN Reason: Sleep Last Admin: 06/21/24 20:24 Dose: 5 mg Documented By: DANIE Labs 06/21/24 06:58 06/22/24 05:50 Labs: Laboratory Results - last 24 hr 06/22/24 05:50 Estim Creat Clear Calc 109.0 Estimated GFR > 60 Random Vancomycin 8.7 L Microbiology Microbiology Results: Microbiology 06/19/24 12:46 Blood Culture - Preliminary Blood - Venous No growth after 48 hours. 06/19/24 12:36 Blood Culture - Preliminary Blood - Venous No growth after 48 hours. Assessment and Plan (1) Chronic atrial fibrillation: Status: Acute Plan 64M PMH pafib on eliquis, chronic diastolic CHF, history of pulmonary embolism, hypertension, hyperlipidemia, chronic back pain with opiate dependence, mood disorder, alcohol dependence presented with worsening right lower extremity redness and swelling Acute recurrent right lower extremity cellulitis in the background of chronic venous stasis Continue vanc and Zosyn, follow up cultures, concern for right foot osteomyelitis MRI unclear, esr and crp mildly elevated ID eval PT eval appreciated - home vs str local Steroids and local compression Alcohol dependence Monitor for CIWA No signs of withdrawal Chronic diastolic CHF Continue Aldactone and torsemide Paroxysmal AFib Continue metoprolol, diltiazem, Eliquis Morbid obesity Weight loss Chronic back pain Continue oxycodone BPH Flomax Gout Allopurinol History of PE on Eliquis Full Code reason for continued hospitalization: IV antibiotics for recurrent infection awaiting cultures Quality Stroke Does the patient have a stroke diagnosis?: No VTE Prior VTE?: No VTE Risk Level:: Medical - moderate - high VTE Device Contraindication: Treatment Not Indicated VTE Drug Contraindication: N/A - Med Ordered
--- NOTE | 2024-06-22 14:29 | PM.DS ---
DS: Providers Provider Date of Service: 06/22/24 Date of admission: 06/19/24 16:30 Date of discharge: 06/22/24 Primary care physician: Shelbie Gaines PA-C Consults: 06/20/24 00:51 Consult to Wound Care Routine Reason for consultation: cellulitis right lower leg 06/21/24 08:36 Consult to Infectious Diseases Routine Consulting Provider: [facility] Reason for consultation: ?OM DS: Diagnosis Discharge Diagnosis (1) Chronic atrial fibrillation: Status: Acute DS: Summary Hospital Course Hospital Course: from initial hpi: 64-year-old male with a PMH significant for?paroxysmal on Eliquis, HFpEF, hx of PE, HTN, HLD, chronic back pain on chronic opioids, alcohol use disorder, anxiety, and depression who presents to the ED with?worsening right lower extremity redness, swelling, and pain. Pt reports symptoms began 4-5 days ago. Some chills but no fever. Had a fall at home with syncope likely secondary to alcohol intoxication after binge drinking and attempting to stand from his recliner. Pt denies any significant trauma to right foot or leg. Was seen and evaluated at [facility] on 06/15 where he was admitted for syncope where workup, p.o. abx. No imaging was done at that time of his lower leg. Pt reports since then has been compliant with antibiotics, but this morning noted that his swelling, pain, and redness have increased. Pt reports a long hx of recurrent right lower extremity cellulitis after abdominal surgery in April 2023 in [facility]. States has been treated at least a dozen times for cellulitis that seemingly recurs as soon as antibiotics are done. No difficulty breathing, SOB, or cough. Denies chest pain/pressure, palpitations. No nausea, vomiting, abdominal pain. In the ED pt was tachycardic to 101 and midlly hypertensive at 130/98. Labs were significant for ESR 36, CRP 1.55, and mildly elevated AST 40. No leukocytosis. Stable H&H. No significant electrolyte abnormalities. Renal function baseline. Right foot x-ray shows minimally displaced intra-articular fracture of proximal phalanx of great toe. Pathologic fracture secondary to osteomyelitis not excluded due to marked osteopenia. X-ray of fibula and tibia negative for osteomyelitis. Pt was treated with oxycodone, vancomycin, and Zosyn. Pt will be admitted to the hospital for treatment and further evaluation of right lower extremity cellulitis that failed outpatient therapy. hospital course: Patient was admitted for acute recurrent right lower extremity cellulitis due to chronic venous stasis. Was initially treated with vancomycin Zosyn, was treated with local compression. MRI could not rule out osteomyelitis but ESR and CRP only mildly elevated. Was seen by infectious disease who felt OM unlikely [facility] doxy and augmentin Expected require less than 30 days Recommend to continue local compression For alcohol dependence did not have any signs of withdrawal. For chronic diastolic CHF was continued on Aldactone torsemide. For paroxysmal AFib metoprolol was held was continued on diltiazem and Eliquis. For morbid obesity weight loss is recommended. For chronic back pain was continued on oxycodone. For BPH continued on Flomax. For gout continue on allopurinol. For history of pulmonary embolism continued on Eliquis. Time Attestation Discharge Coordination Time (in mins): 37 Quality: Safe Use of Opioids Does Pt have an Active Cancer Diagnosis on the Problem List?: No Quality: Stroke Does the patient have a stroke diagnosis?: No Physical Exam Vital Signs: Vital Signs: Last Vital Signs Temp 96.9 F 06/22/24 07:27 Pulse 67 06/22/24 07:27 Resp 18 06/22/24 07:27 BP 108/59 L 06/22/24 07:27 Pulse Ox 98 06/22/24 07:27 O2 Del Method Room Air 06/22/24 07:27 BMI result Body Mass Index 41.4 improved erythema of rle, chronic venous stasis DS: Data Data Completed and Pending Completed studies during hospitalization [Text1]: Procedures Detoxification Services for Substance Abuse Treatment (04/19/22) Insertion of Infusion Device into Right Atrium, Percutaneous Approach (02/08/21) Repair Abdominal Wall, Open Approach (02/08/21) Respiratory Ventilation, 24-96 Consecutive Hours (02/08/21) Labs on day of discharge: Laboratory Results - last 24 hr 06/22/24 05:50 Creatinine 0.96 Estim Creat Clear Calc 109.0 Estimated GFR > 60 Random Vancomycin 8.7 L Preliminary micro results at discharge 06/19/24 12:46 Blood Culture - Preliminary Blood - Venous No growth after 48 hours. 06/19/24 12:36 Blood Culture - Preliminary Blood - Venous No growth after 48 hours. Discharge Plan Discharge Anticipated Discharge Date/Time: 06/22/24 14:27 Patient Disposition: Home, Self-Care Discharge Diagnosis: cellulitis Referrals: Shelbie Gaines PA-C [Primary Care Provider] - 1 Week Discharge Medications: New doxycycline hyclate 100 mg tablet 100 mg PO BID Qty: 28 0RF Continued omeprazole 20 mg Capsule,Delayed Release(Dr/Ec) 20 mg PO DAILY@0630 diltiazem HCl 120 mg Capsule,Extended Release 24hr 120 mg PO DAILY zolpidem 10 mg Tablet 10 mg PO BEDTIME PRN (Reason: Sleep) oxycodone 5 mg Tablet 5 mg PO QID PRN (Reason: Pain) atorvastatin 40 mg Tablet 40 mg PO BEDTIME sennosides [senna] 8.6 mg Tablet 8.6 mg PO BID PRN (Reason: Constipation) venlafaxine 37.5 mg Capsule,Extended Release 24hr 37.5 mg PO DAILY acetaminophen 325 mg Tablet 325 mg PO QID PRN (Reason: Pain) torsemide 20 mg Tablet 20 mg PO DAILY gabapentin 400 mg Capsule 400 mg PO TID allopurinol 100 mg Tablet 100 mg PO DAILY digoxin 250 mcg (0.25 mg) Tablet 250 mcg PO DAILY tamsulosin 0.4 mg Capsule 0.4 mg PO DAILY furosemide 80 mg Tablet 80 mg PO BID PRN (Reason: Edema) albuterol sulfate [Ventolin HFA] 90 mcg/actuation Hfa Aerosol Inhaler 2 puff INHALATION Q6H PRN (Reason: Shortness Of Breath Or Wheezing) spironolactone 50 mg Tablet 50 mg PO DAILY vilazodone 20 mg Tablet 20 mg PO DAILY Rx Instructions: must administer with a meal/food Eliquis 2.5 mg Tablet 2.5 mg PO BID potassium chloride 20 mEq Tablet Extended Release 20 meq PO DAILY amoxicillin-pot clavulanate 875-125 mg tablet 1 tab PO Q12H 14 Days Qty: 0 0RF Discontinued metoprolol tartrate 100 mg Tablet 100 mg PO BID Discharge Orders: Discharge Order (Routine); Ordered 06/22/24 Ordered By: Rui Choe Diet: Advance to usual diet Activity on Discharge: As tolerated Stand Alone Forms: Patient Portal Discharge page Print Language: Indonesian Care Plan Goals: recovery Health Concerns: cellulitis Plan of Treatment: antibiotics, compression Assessment: see above
[2024-06-22 15:14] VITALS: BP 138/81; PULSE 78; RESP 15; TEMP 36.2; O2SAT 97
--- NOTE | 2024-06-22 15:50 | MHC.CM.PN ---
IMM 06/20/24 Patient is discharged today. He will receive STR @ [facility], his 1st choice of facilities. He will transport at 5pm via BLS.
--- NOTE | 2024-06-22 16:32 | P.CNID_ITS ---
History of Present Illness Data of Consult Service Date: 06/22/24 Requesting physician: Rui Choe Primary Care Provider: Shelbie Gaines PA-C HPI Reason for consult: RLE redness He has right lower leg swelling and redness worse over last week. He has no fever or chills. He has neuropathy. Leg has some discomfort. Review of Systems 2 Review of Systems: Yes all other systems are reviewed and are negative PMFSH Past Medical History Medical History Atrial fibrillation with RVR Chest pain Atrial fibrillation with RVR Sciatica ARIAN (acute kidney injury) Atrial fibrillation with RVR Alcohol withdrawal delirium Oral thrush Metabolic acidosis with increased anion gap and accumulation of organic acids Alcohol withdrawal Heart failure with left ventricular ejection fraction greater than or equal to 50 percent Incarcerated incisional hernia Atrial fibrillation with RVR Alcohol dependence Alcohol intoxication Thoracic aortic aneurysm Chronic atrial fibrillation Toenail deformity Dyslipidemia Anemia History of alcohol abuse Morbid obesity Insomnia Depression Pulmonary embolism Obesity Family History Family History Mother No problems noted. Father No problems noted. Family/Other Substance use disorder Family history: reviewed and not pertinent Surgical History Surgical History History of incisional hernia repair S/P cholecystectomy History of inguinal hernia repair Hx of gastric bypass Social History Social History Household Members: None Household Members Other:: lives with mother Housing: Apartment Do you presently have visiting nurse or other home services: No Unable to assess alcohol history related to: Unable to respond Alcohol intake: current Alcohol intake frequency: a few times a week Alcohol type: beer Comment: pt refusing alarms Patient Tobacco Use Status: Never used Tobacco Smoked in Last 30 Days: No e-Cigarette/Vaping Use: Never Used Second Hand Smoke Exposure: No Use of substances other than those prescribed or required for medical reasons: No Substance Use Type: Other Currently Displaying Signs/Symptoms of Drug Intoxication Withdrawal: No Have you been hit, kicked, punched, or otherwise hurt by someone within the past year? If so, by whom?: No Do you feel safe in your current relationship?: No Current Relationship Is there a partner from a previous relationship who is making you feel unsafe now?: No Advance Directives: Yes Advance Directives on File: Yes Advance Directives Date on File: 03/13/21 Do you have a plan to hurt others: No Plan Recently lost weight without trying: No Nutrition Risks: No Nutritional Risk Poor oral hygiene: No service: No Current occupational status: retired Meds Allergies Allergy/AdvReac Type Severity Reaction Status Date / Time No Known Allergies Allergy Verified 06/19/24 11:55 Active Medications: Current Medications Acetaminophen (Acetaminophen 325 Mg Tablet) 650 mg PO Q6H PRN PRN Reason: Pain, Mild 1-3,fever,headache Last Admin: 06/20/24 08:46 Dose: 650 mg Albuterol Sulfate (Albuterol Sulfate 90 Mcg 8 Gm Inhaler) 2 puff INHALE Q6H PRN PRN Reason: Shortness Of Breath Or Wheezing Allopurinol (Allopurinol 100 Mg Tablet) 100 mg PO DAILY [facility] Last Admin: 06/22/24 08:18 Dose: 100 mg Apixaban (Apixaban 2.5 Mg Tablet) 2.5 mg PO BID [facility]E Last Admin: 06/22/24 08:18 Dose: 2.5 mg Atorvastatin Calcium (Atorvastatin Calcium 40 Mg Tablet) 40 mg PO BEDTIME [facility]E Last Admin: 06/21/24 20:10 Dose: 40 mg Calcium Carbonate (Calcium Carbonate 750 Mg Tab.Chew) 750 mg PO Q4H PRN PRN Reason: Heartburn Digoxin (Digoxin 0.25 Mg Tablet) 0.25 mg PO DAILY [facility]; Protocol Last Admin: 06/22/24 08:17 Dose: 0.25 mg Diltiazem HCl (Diltiazem Hcl Cd 120 Mg Cap.Er.Deg) 120 mg PO DAILY [facility]; Protocol Last Admin: 06/22/24 08:17 Dose: 120 mg Furosemide (Furosemide 40 Mg Tablet) 80 mg PO BID PRN; Protocol PRN Reason: Edema Gabapentin (Gabapentin 400 Mg Capsule) 400 mg PO TID MARILEE Last Admin: 06/22/24 15:46 Dose: 400 mg Piperacillin Sod/Tazobactam (Sod 3.375 gm/ Sodium Chloride) 50 mls @ 100 mls/hr IV Q6H [facility] Last Infusion: 06/22/24 13:19 Dose: Infused Vancomycin HCl 750 mg/ Sodium (Chloride) 265 mls @ 265 mls/hr IV Q12H [facility] Last Infusion: 06/22/24 10:16 Dose: Infused Magnesium Hydroxide (Milk Of Magnesia 30 Ml Oral.Susp) 30 ml PO DAILY PRN PRN Reason: Constipation Melatonin (Melatonin 3 Mg Tablet) 6 mg PO BEDTIME PRN PRN Reason: Insomnia Omeprazole (Omeprazole 20 Mg Capsule.Dr) 20 mg PO DAILY@0630 [facility] Last Admin: 06/22/24 05:25 Dose: 20 mg Oxycodone HCl (Oxycodone Hcl Immed Release 5 Mg Tablet) 10 mg PO Q4H PRN PRN Reason: Pain, Severe (Pain Scale 7-10) Last Admin: 06/22/24 15:53 Dose: 10 mg Pharmacy Consult (Consult Rx Vancomycin Dosing) 1 each MISCELLANE DAILY PRN PRN Reason: Consult order Potassium Chloride (Potassium Chloride Er 20 Meq Tab.Er.Prt) 20 meq PO DAILY [facility] Last Admin: 06/22/24 08:18 Dose: 20 meq Senna (Sennosides 8.6 Mg Tablet) 8.6 mg PO BID PRN PRN Reason: Constipation Sodium Chloride (0.9 % Sodium Chloride Flush 3 Ml Syringe) 3 ml IVFLUSH QSHIFT [facility] Last Admin: 06/22/24 15:57 Dose: Not Given Spironolactone (Spironolactone 25 Mg Tablet) 50 mg PO DAILY [facility]; Protocol Last Admin: 06/22/24 08:18 Dose: 50 mg Tamsulosin HCl (Tamsulosin Hcl 0.4 Mg Capsule) 0.4 mg PO DAILY [facility] Last Admin: 06/22/24 08:17 Dose: 0.4 mg Torsemide (Torsemide 20 Mg Tablet) 20 mg PO DAILY [facility]; Protocol Last Admin: 06/22/24 08:18 Dose: 20 mg Triamcinolone Acetonide (Triamcinolone Acet 0.1 % Cream 15 Gm Tube) 1 appl TOPICAL DAILY [facility]; Protocol Last Admin: 06/22/24 08:44 Dose: 1 appl Venlafaxine HCl (Venlafaxine Hcl Er 37.5 Mg Cap.Er.24h) 37.5 mg PO DAILY [facility] Last Admin: 06/22/24 08:18 Dose: 37.5 mg Vilazodone HCl (Vilazodone Hcl 20 Mg Tablet) 20 mg PO DAILY [facility] Last Admin: 06/22/24 08:17 Dose: 20 mg Zolpidem Tartrate (Zolpidem Tartrate 5 Mg Tablet) 5 mg PO BEDTIME PRN PRN Reason: Sleep Last Admin: 06/21/24 20:24 Dose: 5 mg Home Medications ?Medication ?Instructions ?Recorded ?Confirmed ?Last Taken ?Type acetaminophen 325 mg tablet 325 mg PO QID PRN Pain 06/19/24 06/19/24 Unknown History albuterol sulfate 90 mcg/actuation 2 puff inhalation Q6H PRN 06/19/24 06/19/24 Unknown History aerosol inhaler (Ventolin HFA) Shortness Of Breath Or Wheezing allopurinol 100 mg tablet 100 mg PO DAILY 06/19/24 06/19/24 Unknown History apixaban 2.5 mg tablet (Eliquis) 2.5 mg PO BID 06/19/24 06/19/24 Unknown History atorvastatin 40 mg tablet 40 mg PO BEDTIME 06/19/24 06/19/24 Unknown History digoxin 250 mcg (0.25 mg) tablet 250 mcg PO DAILY 06/19/24 06/19/24 Unknown History diltiazem HCl 120 mg 120 mg PO DAILY 06/19/24 06/19/24 Unknown History capsule,extended release 24 hr furosemide 80 mg tablet 80 mg PO BID PRN Edema 06/19/24 06/19/24 Unknown History gabapentin 400 mg capsule 400 mg PO TID 06/19/24 06/19/24 Unknown History omeprazole 20 mg capsule,delayed 20 mg PO DAILY@0630 06/19/24 06/19/24 Unknown History release oxycodone 5 mg tablet 5 mg PO QID PRN Pain 06/19/24 06/19/24 Unknown History potassium chloride 20 mEq 20 meq PO DAILY 06/19/24 06/19/24 Unknown History tablet,extended release sennosides 8.6 mg tablet (senna) 8.6 mg PO BID PRN Constipation 06/19/24 06/19/24 Unknown History spironolactone 50 mg tablet 50 mg PO DAILY 06/19/24 06/19/24 Unknown History tamsulosin 0.4 mg capsule 0.4 mg PO DAILY 06/19/24 06/19/24 Unknown History torsemide 20 mg tablet 20 mg PO DAILY 06/19/24 06/19/24 Unknown History venlafaxine 37.5 mg 37.5 mg PO DAILY 06/19/24 06/19/24 Unknown History capsule,extended release 24 hr vilazodone 20 mg tablet 20 mg PO DAILY 06/19/24 06/19/24 Unknown History zolpidem 10 mg tablet 10 mg PO BEDTIME PRN Sleep 06/19/24 06/19/24 Unknown History Physical Exam 2 Vital Signs: Vital Signs: Last Vital Signs Temp 97.1 F 06/22/24 15:14 Pulse 78 06/22/24 15:14 Resp 15 06/22/24 15:14 BP 138/81 06/22/24 15:14 Pulse Ox 97 06/22/24 15:14 O2 Del Method Room Air 06/22/24 15:14 BMI result Body Mass Index 41.4 Const: General: cooperative HEENT: Head: Yes normal to inspection Face and sinus: Yes normal facial exam Mouth: Normal oral and palatal mucosa present Teeth and gingiva: d entition normal Eyes: General: appearance normal, both eyes and all related structures P upils: Equal, round and reactive pupils present Resp: Effort & Inspection: normal respiratory effort Cardio: Rate: regular rate Rhythm: regular rhythm GI: Palpation (GI): Soft to palpation and nontender : General: Yes no CVA tenderness Back/Spine/Pelvis: Back: no CVA tenderness Skin: General skin exam: no rashes or lesions noted Neuro: General: moves all extremities Cranial nerves: Yes Equal, round and reactive pupils present Extrem: Other: left redness leg improving General: Yes normal to inspection Psych: Appearance: grossly normal Results Labs 06/21/24 06:58 06/22/24 05:50 Labs: BMP 06/22/24 05:50 Creatinine 0.96 Microbiology Microbiology Results: Microbiology 06/19/24 12:46 Blood - Venous Blood Culture - Preliminary No growth after 48 hours. 06/19/24 12:36 Blood - Venous Blood Culture - Preliminary No growth after 48 hours. Assessment and Plan (1) Cellulitis: Qualifiers: Site of cellulitis: extremity Site of cellulitis of extremity: lower extremity Status: Acute (2) Osteomyelitis: Status: Acute Plan Would stop IV antibiotics and give po Augmentin and Doxycycline for 14 days. Stop scratching area.
== END 2024-06-22 17:57 | disposition skilled nursing facility (03) | DRG 603 ==
LOC: HO.ED 16:16 → HO.EDOVER 16:41 → HO.S3 23:33
PROVIDERS: Internal Medicine; Physician Assistant Medical; Admitting Provider Student in an Organized Health Care Education/Training Program; Emergency Provider Emergency Medicine; Visit Provider Internal Medicine
DX: L03.115 Cellulitis of right lower limb (principal); Z68.41 Body mass index [BMI] 40.0-44.9, adult; I50.32 Chronic diastolic (congestive) heart failure; I87.323 Chronic venous hypertension (idiopathic) with inflammation of bilateral lower extremity; I48.0 Paroxysmal atrial fibrillation; I11.0 Hypertensive heart disease with heart failure; E66.01 Morbid (severe) obesity due to excess calories; F10.20 Alcohol dependence, uncomplicated; M54.9 Dorsalgia, unspecified; G89.29 Other chronic pain; N40.0 Benign prostatic hyperplasia without lower urinary tract symptoms; M10.9 Gout, unspecified; Z86.711 Personal history of pulmonary embolism; Z71.3 Dietary counseling and surveillance; Z79.01 Long term (current) use of anticoagulants; Z79.899 Other long term (current) drug therapy
CPT/HCPCS: 36415; 73590; 73620; 73720; 80048; 80053; 80202; 82565; 83605; 83735; 85025; 85027; 85652; 86140; 87040; 97116; 97161; 99285; A9585; J2543; J3370; J3371

== ENCOUNTER → 2024-06-19 12:10 | Outpatient (BNV) | payer MEDICARE, MEDICAID, SELFPAY | PROVIDERS: Emergency Provider Emergency Medicine; Visit Provider Radiology Diagnostic Radiology | DX: S92.424A Nondisplaced fracture of distal phalanx of right great toe, initial encounter for closed fracture (principal); M79.661 Pain in right lower leg | CPT/HCPCS: 73590; 73620 ==

== ENCOUNTER → 2024-06-19 16:30 | Outpatient (BNV) | payer MEDICARE, MEDICAID, SELFPAY | PROVIDERS: Admitting Provider Student in an Organized Health Care Education/Training Program; Emergency Provider Emergency Medicine; Visit Provider Internal Medicine | DX: L03.90 Cellulitis, unspecified (principal); M86.9 Osteomyelitis, unspecified | CPT/HCPCS: 99221 ==

== ENCOUNTER → 2024-06-19 16:30 | Outpatient (BNV) | payer MEDICARE, MEDICAID, SELFPAY | PROVIDERS: Admitting Provider Student in an Organized Health Care Education/Training Program; Emergency Provider Emergency Medicine; Visit Provider Student in an Organized Health Care Education/Training Program | DX: I48.20 Chronic atrial fibrillation, unspecified (principal) | CPT/HCPCS: 99223; 99232 ==

== ENCOUNTER 2024-06-29 05:45 | Outpatient (REF) | payer MEDICARE, MEDICAID, SELFPAY ==
[2024-06-29 05:40] LABS: MANUAL DIFF FLAG NO
[2024-06-29 06:30] LABS: Basophils Absolute Auto 0.1 X10*3/uL (0.0-0.2); Basophils Percent Auto 0.7 % (0-2); Eosinophils Absolute Auto 0.1 X10*3/uL (0.0-0.4); Eosinophils Percent Auto 0.9 % (0-4); Hematocrit 39.9 % (42.0-52.0); Hemoglobin 12.4 g/dl (14.0-18.0); Imm Gran Abs Auto 0.03 X10*3/uL (0.00-0.03); Imm Gran Pct Auto 0.4 % (0.0-0.4); Lymphocytes Absolute Auto 0.4 X10*3/uL (1.2-4.9); Lymphocytes Percent Auto 5.1 % (20-40); Mean Corpuscular HGB Conc 31.1 g/dl (31.0-36.0); Mean Corpuscular Hemoglobin 29.1 pg (27.0-33.0); Mean Corpuscular Volume 93.7 fL (80.0-98.0); Mean Platelet Volume 10.8 fL (9.4-12.4); Monocytes Absolute Auto 0.6 X10*3/uL (0.1-1.2); Monocytes Percent Auto 7.6 % (2-11); Neutrophils Percent Auto 85.3 % (45-73); Platelet Count 207 X10*3/uL (160-400); Red Blood Count 4.26 X10*6/uL (4.60-5.80); White Blood Count 8.2 X10*3/uL (4.8-10.8)
[2024-06-29 06:45] LABS: Anion Gap 11 (12-20); Blood Urea Nitrogen 17 mg/dL (9-16); C Reactive Protein 0.87 mg/dL (< or = 0.50); Calcium 8.4 mg/dL (8.4-10.2); Carbon Dioxide 26 mmol/L (22-29); Chloride 108 mmol/L (96-108); Estimated Glomerular Filt Rate > 60; Glucose Random 77 mg/dL (60-115); Sodium 141 mmol/L (135-145)
[2024-06-29 08:09] LABS: Erythrocyte Sedimentation Rate 28 MM/HR (0-15)
== END 2024-06-29 05:46 | disposition home or self-care (01) ==
LOC: HO.MMNH1L 05:45
PROVIDERS: Visit Provider Student in an Organized Health Care Education/Training Program
DX: Z13.89 Encounter for screening for other disorder (principal)
CPT/HCPCS: 36415; 80048; 85025; 85652; 86140

== ENCOUNTER 2024-07-06 06:39 | Outpatient (REF) | payer SELFPAY | END 2024-07-06 06:40 | disposition home or self-care (01) | LOC: HO.MMNH1L 06:39 | PROVIDERS: Visit Provider Student in an Organized Health Care Education/Training Program | DX: Z13.89 Encounter for screening for other disorder (principal) ==

== ENCOUNTER 2024-07-15 20:02 | Emergency (ER) | payer MEDICARE, MEDICAID, SELFPAY ==
--- NOTE | ~2024-07-15 | CT_ITS ---
CLINICAL HISTORY: ABD pain, N V D CT abdomen and pelvis with contrast Comparison: None Findings: Respiratory motion artifact degrades the images limiting interpretation. The lung bases are clear. Gallbladder is surgically absent. No focal hepatic lesion identified. Pancreas, spleen and adrenal glands are within normal limits. Kidneys enhance symmetrically and are grossly non hydronephrotic. No bowel obstruction, pneumoperitoneum, or pneumatosis. Small hiatal hernia with postsurgical changes in the proximal stomach, likely gastrojejunostomy. Mild diastatic rectus abdominis musculature results in a wide neck ventral abdominal wall hernia. The appendix is not well visualized. Scattered sigmoid diverticula are present without definite CT evidence of diverticulitis. No acute fracture. IMPRESSION: Unremarkable motion limited CT abdomen and pelvis as above. This document has been electronically signed by: Real Javier MD, PHD on 07/16/2024 01:36:50
[2024-07-15 20:14] VITALS: BP 140/80; PULSE 96; O2SAT 96
[2024-07-15 20:18] VITALS: BP 103/70; PULSE 70; RESP 18; TEMP 36.1; O2SAT 96; BMI 40.5
--- OUTSIDE RECORDS SUMMARY | 2024-07-15 20:39 | XMS_ITS | Clinical Summary ---
Author Organization [facility] Facility Address [address] [place] [id number] Care Team Providers Care Chrome Tanner Name Role Phone Bambi Machuca MD Primary Care Provider [phone] Social History Tobacco Use Types Packs/Day Years [...] 2007 Pneumococcal Vaccine: 65+ Ye ars (1 - PCV) 2023 Influenza Vaccine (Season Ended) 2024 Hepatitis B Vaccine Aged Out No longe r eligible based on patient's age to [place] [address] MEDIC[place] Care Teams Chrome Tanner Relationship Specialty Start Date End Date Bambi Machuca MD [address] [place], [place] PCP - General Internal Medicine 04/24/22
--- OUTSIDE RECORDS SUMMARY | 2024-07-15 20:39 | XMS_ITS | Encounter Summary ---
Author Organization [facility] [employer] Address [address] [place] [address] [address] [place] [address] Care Team Providers Care Dialysis Registered Nurse Name Role Phone Rick Arcos MD Primary Care Prov ider Encounter Details Date Type Department Care Team (Late Contact Info) Description 07/15/2024 Telephone [facility] [address] [place] [address] Rick Arcos MD [address] [place] [address] Social History Tobacco Use Types Packs/Day Years [...] Department Care Team (Late Contact Info) Description 07/28/2024 9:45 AM EDT Office Visit [facility] [address] [place] [address] Rick Arcos MD [address], [place] [id number] documented as of this encounter Visit Diagnoses Not on filedocumented in this encounter Care Teams Dialysis Registered Nurse Relationship Specialty Start Date End Date Rick Arcos MD [address] [place] [address] PCP - General Internal Medicine 05/28/24 Rodrick Arguello 06/09/24 documented as of this encounter
--- OUTSIDE RECORDS SUMMARY | 2024-07-15 20:39 | XMS_ITS | Encounter Summary ---
Author Organization [employer] Address [address] [facility] [address] [place] [address] Care Team Providers Care Gang Mower Operator Name Role Phone Rick Arcos MD Primary Care Prov ider Reason for Visit * Reason Comments Transition Of Care ([facility]) HDF scheduled Encounter Details Date Type Department Care Team (Late st Contact Info) Description 07/10/2024 Patient Outreach [facility] [address] [place] [address] Rick Arcos MD [address] [place] [address] Transition Of Care ([facility]) (HDF scheduled) Social History Tobacco Use Types Packs/Day Years [...] as of this encounter Miscellaneous Notes * Significant Event - Stephanie Beth - 07/10/2024 9:25 AM EDT 07/10/24 0925 Hospital Discharges and Admission for [facility] Type of Visit Hospital Admission Date of Admission/Visit 06/22/24 Date of Discharge 07/13/24 Facility [facility] Diagnosis Celullitis/Lower back pain Disposition Discharged Home Follow-Up Actions Follow-Up Needed Provider appointment Follow-Up Outcome Spoke to Caregiver Initial Contact Date 07/10/24 Received incoming call from the [facility]. JACKIE Spoke with Faina from [facility] [phone] Patient has been scheduled for an HDF appointment on 07/28/2024 at 9:[address] Hank MEJIA requested discharge summaries to be faxed to the Care Management Department at [phone]. CC will follow up on discharge summary following patient's discharge. documented in this encounter Plan of Treatment Upcoming Encounters Date Type Department Care Team (Late st Contact Info) Description 07/28/2024 9:45 AM EDT Office Visit [facility] [address] [place] [address] Rick Arcos MD [address] [place] [address] documented as of this encounter Visit Diagnoses Not on filedocumented in this encounter Care Teams Gang Mower Operator Relationship Specialty Start Date End Date Rick Arcos MD [address] [place] [address] PCP - General Internal Medicine 05/28/24 Rodrick Arguello 06/09/24 documented as of this encounter
--- OUTSIDE RECORDS SUMMARY | 2024-07-15 20:39 | XMS_ITS | Clinical Summary ---
Author Organization [facility] Address [address] [place] [address] Care Team Providers Care Veneer Patcher Name Role Phone Provider, Marlee MCKEE Primary [...] age to complete this topic Care Teams Veneer Patcher Relationship Specialty Start Date End Date Marlee Lipscomb MD PCP - General 07/16/13
--- OUTSIDE RECORDS SUMMARY | 2024-07-15 20:39 | XMS_ITS ---
Author Organization [facility] Care Team Providers Care Carbonating Stone Cleaner Name Role Phone Tomeka Mahmood Unavailable Unavailable Valerie Alonzo Unavailable Unavailable Kiara Coronado Unavailable Unavailable Aparna Erika Unavailable Unavailable Benedicto Sainz Unavailable Unavailable Allergies and adverse reactions No Known Allergies Care Team Name Role Address Phone Organization Dates Benedicto Alistair PCP [address] [place] [address], [id number], [facility] (Office): : [facility] 06/22/2024 - 07/13/2024 Tomeka Mahmood Attending Physician [address] [place] [address], [id number], [facility] (Office): : [facility] 06/22/2024 - 07/13/2024 Valerie Alonzo Attending Physician [address] [place] [address], [place], [address], [facility] (Office): : [facility] 06/22/2024 - 07/13/2024 Kiara Coronado Attending Physician [address] [place] [address], [place], [address], [facility] (Office): : [facility] 06/22/2024 - 07/13/2024 Erika Braun Attending Physician [address] [facility], [place], [address], [place] (Office): : [facility] 06/22/2024 - 07/13/2024 Goals Section Description Status Target Date I will be free of infection, pain or bleeding in the oral cavity by/through review date. Active 09/30/2024 I plan to discharge to: Spec [facility]- To community alone, To Community with Family, [facility], LTC Placement, Other- Undecided at current time. Pending outcome of therapy sessions, clinical medical stability progress reviewed weekly. Active 09/30/2024 I will be at reduced risk fo r adverse drug reactions through the review date. Active 09/30/2024 I will be at reduced risk fo r complications of self care performance deficit and impaired mobility daily through the review date. Active 09/30/2024 I will be content with items provided for my leisure through next review. Active 09/30/2024 I will be free from discomfo rt and adverse effects of pain medication through the review date. Active 09/30/2024 I will be free from discomfo rt or adverse side effects of antibiotic therapy through the review date. Active 09/30/2024 I will be free from discomfo rt or adverse side effects of anticoagulant therapy through the review date. Active I will be free from discomfo rt or adverse side effects of diuretic therapy through the review date. Active 09/30/2024 I will be free from discomfo rt or adverse side effects related to anti-depressant therapy through the review date. Active 09/30 I will be free from discomfo rt or adverse side effects related to hypnotic therapy through the review date. Active 09/30/2024 I will be free from s/sx of complications of cardiac problems through the review date. Active 09/30/2024 I will be free from s/sx of dehydration through next review date. Active 09/30/2024 I will be free of fall relat ed injury through the next review date. Active 09/30/2024 I will continue to be indepe ndent and pursue activities of interest through next review. Active 09/30/2024 I will have improved mood state through the revi ew date. Active 09/30/2024 I will improve current level of function Bed Mobility, Transfers, Eating, Dressing, Toilet Use and Personal Hygiene, ADL Score by the review date. Active 09/30/2024 I will maintain adequate nut ritional status as evidenced by maintaining weight within +/-5% of CBW, no s/sx of malnutrition, and consuming at least 76% of at least 2 meals daily through review date. Active 09/30/2024 I will not have discomfort r elated to side effects of analgesia through the review date. Active 09/30/2024 I will not have skin breakdo wn due to incontinence through the review date. Active 09/30/2024 I will not leave the facilit y without notifying staff before next review date. Active 09/30/2024 I will show effectiveness of medication use as evidenced by a reduction in convulsionsymptoms by the review date. Active I will show management of my symptoms [ie: edema, abnormal breath sounds, hypertenion] through the review date. Active 10/01/19 I will verbalize adequate re lief of pain or ability to cope with incompletely relieved pain through the review date. Active I will verbalized understand ing of substance abuse and the impact it has on my health and well-being through the review dates. Active 09/30/2024 My skin integrity will be im proved or maintained by next review date. Active 09/30/2024 The resident's advance direc tives are in effect and their wishes will be carried out through the next review. Active Functional Status Code Name Recorded Time Value Entered By Eating 07/13/2024 Not assessed emuhammad Lying to sitting on side of bed 07/13/2024 Independe nt emuhammad Oral hygiene 07/13/2024 Independent emuhammad Personal hygiene 07/13/2024 Independent emuhammad Shower/bathe self 07/13/2024 Independent emuhammad Sit to lying 07/13/2024 Independent emuhammad Toilet transfer 07/13/2024 Independent emuhammad Toileting hygiene 07/13/2024 Independent emuhammad Immunizations Immunization Status Vaccine Details Vaccine Code CodeSystem Date Notes Tetanus completed tetanus immune globulin 13 CVX created date: 06/23/2024 administere d date: 07/12/2015 (Pneumococcal) PPSV23- Polysaccharide 23-valent Vaccine completed pneumococcal polysaccharide vaccine, 23 valent 33 CVX created date: 06/23/2024 administere d date: 02/13/2018 Medications Section Medication Name Status Code CodeSystem Dose Route Frequency Admin Type Sig Text Start Date End Date Doxycycline Hyclate Tablet 100 MG complete d 336719 3 RXNORM 1 tablet Oral two times a day Routine Give 1 tablet by mouth two times a day for infect ion for 14 Days 07/07 Zolpidem Tartrate Oral Tablet 10 MG aborted 929945 RXNORM 1 tablet Oral as needed PRN Give 1 tablet by mouth as needed for insomn ia 10 mg po bedtim e prn for sleep 06/25 Atorvastatin Calcium Tablet 40 MG active 856281 RXNORM 1 tablet Oral at bedtime Routine Give 1 tablet by mouth at bedtim e for treats hyperl ipidem ia 2024 - Acetaminophen Tablet 325 MG active 664794 RXNORM 1 tablet Oral as needed PRN Give 1 tablet by mouth every 6 hours as needed for Genera l Discom fort Total Dose 650mg * DO NOT EXCEED 3 GRAMS per 24 HOURS 2024 - Cardizem CD Capsule Extended Release 24 Hour 120 MG active 304597 RXNORM 1 capsul e Oral one time a day Routine Give 1 capsul e by mouth one time a day for treats high blood pressu re 2024 - OxyCODONE HCl Capsule 5 MG aborted 025944 6 RXNORM 1 capsul e Oral as needed PRN Give 1 capsul e by mouth every 6 hours as needed for modera te to severe pain 06/23 Omeprazole Capsule Delayed Release 20 MG active 879344 RXNORM 1 capsul e Oral at bedtime Routine Give 1 capsul e by mouth at bedtim e for acid indige stion Give at least 1/2 hour prior to meals, DO NOT CRUSH or CHEW 2024 - Venlafaxine HCl ER Tablet Extended Release 24 Hour 37.5 MG active 667622 RXNORM 1 tablet Oral one time a day Routine Give 1 tablet by mouth one time a day for depres melissa 2024 - Torsemide Tablet 20 MG active 19821006 RXNORM 1 tablet Oral one time a day Routine Give 1 tablet by mouth one time a day for edema Monito r for Side Effect s Diuret ics for signs and sympto ms of dehydr ation, electr olytes , acute kidney injury , monito r for edema, conges tion, weight change s. 2024 - Gabapentin Capsule 400 MG aborted 065068 RXNORM 1 capsul e Oral three times a day Routine Give 1 capsul e by mouth three times a day for nervep ain/se izures Monito r for Side Effect s of Antico nvulsa nts Medica tions every shift which may includ e but is not limite d to: ataxia , dizzin ess, fatigu e, somnol ence, abnorm al thinki ng, amnesi a, depres melissa, dysart hria, incoor dinati on, nervou sness, tremor 06/25 Spironolacton e Tablet 50 MG active 19810511 RXNORM 1 tablet Oral one time a day Routine Give 1 tablet by mouth one time a day for hypert ension Monito r for Side Effect s Diuret ics for signs and sympto ms of dehydr ation, electr olytes , acute kidney injury , monito r for edema, conges tion, weight change s. 2024 - Allopurinol Tablet 100 MG active 19720416 RXNORM 1 tablet Oral one time a day Routine Give 1 tablet by mouth one time a day for Gout 2024 - Sennosides Tablet 8.6 MG active 350655 RXNORM 1 tablet Oral two times a day Routine Give 1 tablet by mouth two times a day for consti pation 2024 - Flomax Capsule 0.4 MG active 837583 RXNORM 1 capsul e Oral at bedtime Routine Give 1 capsul e by mouth at bedtim e for benign prosta tic hyperp lasia 2024 - Furosemide Tablet 80 MG active 19760607 RXNORM 1 tablet Oral as needed PRN Give 1 tablet by mouth every 12 hours as needed for edema 2024 - Albuterol-[place] esonide Inhalation Aerosol 90-80 MCG/ACT aborted 312663 6 RXNORM 2 puff Inhalat ion as needed PRN 2 puff inhale orally every 6 hours as needed for shortn ess of breath or wheezi ng 07/01 Digoxin Tablet 250 MCG aborted 752651 RXNORM 1 tablet Oral one time a day Routine Give 1 tablet by mouth one time a day for heart failur e 06/28 Vilazodone HCl Oral Tablet 20 MG active 112459 8 RXNORM 1 tablet Oral one time a day Routine Give 1 tablet by mouth one time a day for treats depres melissa 2024 - Amoxicillin-P ot Clavulanate Tablet 875-125 MG complete d 896577 RXNORM 1 tablet Oral every 12 hours Routine Give 1 tablet by mouth every 12 hours for bacter ial infect ion for 7 Days 06/30 Eliquis Tablet 2.5 MG active 411144 1 RXNORM 1 tablet Oral every 12 hours Routine Give 1 tablet by mouth every 12 hours for antico agulat ion Monito r for S/S bleedi ng 2024 - Potassium Chloride ER Tablet Extended Release 20 MEQ active 444941 RXNORM 1 tablet Oral one time a day Routine Give 1 tablet by mouth one time a day for supple ment 2024 - OxyCODONE HCl Capsule 5 MG aborted 817746 6 RXNORM 1 capsul e Oral as needed PRN Give 1 capsul e by mouth every 4 hours as needed for modera te to severe pain 07/08 GuaiFENesin ER Tablet Extended Release 12 Hour 600 MG active 183376 RXNORM 1 tablet Oral every 12 hours Routine Give 1 tablet by mouth every 12 hours for cough until 2024 12:31 AND Give 1 tablet by mouth every 12 hours as needed for conges tion 06/26 522854 RXNORM 1 tablet Oral as needed PRN Give 1 tablet by mouth every 12 hours for cough until 2024 12:31 AND Give 1 tablet by mouth every 12 hours as needed for conges tion 2024 - Tubersol Solution 5 UNIT/0.1ML complete d 986934 RXNORM 0.1 ml Intrade rmal one time only One Time Only Inject 0.1 ml intrad ermall y one time only for DIAGNO STIC for 3 Days record indura tion in millim eters; Read PPD in 48 hours, notify physic nancy if positi ve and discon tinue 2-step 06/27 Tubersol Solution 5 UNIT/0.1ML complete d 735462 RXNORM 0.1 ml Intrade rmal one time only One Time Only Inject 0.1 ml intrad ermall y one time only for DIAGNO STIC for 3 Days record indura tion in millim eters; Read PPD in 48 hours, notify physic nancy if positi ve 07/04 Dulcolax Suppository 10 MG active 205687 RXNORM 1 suppos itory Rectal as needed PRN Insert 1 suppos itory rectal ly as needed for Consti pation every 3 days if No Bowel Moveme nt and Milk of Magnes ia ineffe ctive 2024 - Milk of Magnesia Suspension 400 MG/5ML active 167625 RXNORM 30 ml Oral as needed PRN Give 30 ml by mouth as needed for Consti pation daily 2024 - Fleet Enema Enema 7-19 GM/118ML active 581977 RXNORM 1 applic ation Rectal as needed PRN Insert 1 applic ation rectal ly as needed for Consti pation daily 2024 - Lidocaine Patch 4 % aborted 340941 8 RXNORM n/a n/a Topical one time a day Routine Apply to RIGHT SHOULD ER topica lly one time a day for pain for 12 hours then remove 06/25 Gabapentin Tablet 600 MG active 121590 RXNORM 1 tablet Oral three times a day Routine Give 1 tablet by mouth three times a day for pain manang ement Monito r for Side Effect s of Antico nvulsa nts Medica tions every shift which may includ e but is not limite d to: ataxia , dizzin ess, fatigu e, somnol ence, abnorm al thinki ng, amnesi a, depres melissa, dysart hria, incoor dinati on, nervou sness, tremor 2024 - Zolpidem Tartrate Oral Tablet 10 MG complete d 538722 RXNORM 1 tablet Oral as needed PRN Give 1 tablet by mouth every 24 hours as needed for insomn ia for 14 Days 10 mg po bedtim e prn for sleep 07/09 Lidocaine Patch 4 % active 830670 8 RXNORM n/a n/a Topical one time a day Routine Apply to RIGHT SHOULD ER topica lly one time a day for pain for 12 hours then remove and remove per schedu le 2024 - Digoxin Tablet 250 MCG active 188588 RXNORM 1 tablet Oral one time a day Routine Give 1 tablet by mouth one time a day relate d to PAROXY SMAL ATRIAL FIBRIL LATION (I48.0 ) Hold for pulse less than 60 2024 - GuaiFENesin ER Tablet Extended Release 12 Hour 600 MG complete d 303438 RXNORM 1 tablet Oral every 12 hours Routine Give 1 tablet by mouth every 12 hours for conges tion for 7 Days 07/07 Joselin-Tussin Oral Syrup complete d 10 ml Oral as needed PRN Give 10 ml by mouth every 6 hours as needed for cough for 10 Days 07/09 Albuterol-[place] esonide Inhalation Aerosol 90-80 MCG/ACT aborted 048581 6 RXNORM 2 puff Inhalat ion as needed PRN 2 puff inhale orally every 6 hours as needed for shortn ess of breath or wheezi ng AND 2 puff inhale orally two times a day for sob 07/07 459698 6 RXNORM 2 puff Inhalat ion two times a day Routine 2 puff inhale orally every 6 hours as needed for shortn ess of breath or wheezi ng AND 2 puff inhale orally two times a day for sob 07/07 Albuterol Sulfate Nebulization Solution (2.5 MG/3ML) 0.083% active 634294 RXNORM 3 ml Inhalat ion as needed PRN 3 ml inhale orally via nebuli zer every 4 hours as needed for sob 2024 - Triamcinolone Acetonide Injection Suspension 40 MG/ML aborted 245209 4 RXNORM 1 ml Intramu scular one time only One Time Only Inject 1 ml intram uscula rly one time only for Pain for 14 Days RIGHT SHOULD ER Subacr omial inject ion, to be admini stered by physia karo MATOS. 07/03 OxyCODONE HCl Capsule 5 MG aborted 782986 6 RXNORM 1 capsul e Oral as needed PRN Give 1 capsul e by mouth every 5 hours as needed for modera te to severe pain 07/10 Preparation H External Cream 1 % active 1 centim eter Rectal as needed PRN Insert 1 centim eter rectal ly every 4 hours as needed for hemorr hoids 2024 - OxyCODONE HCl Capsule 5 MG active 520182 6 RXNORM 1 tablet Oral as needed PRN Give 1 tablet by mouth every 6 hours as needed for modera te to severe pain for 7 Days 07/17 Ambien Oral Tablet 10 MG active 573010 RXNORM 10 mg Oral in the evening Routine Give 10 mg by mouth in the evenin g for forsle ep for 3 Days 07/13 Mental Status Section Date Assessment Total Score Description 06/30/2024 BIMS 15 cognitively int act 06/26/2024 BIMS 15 cognitively int act CAM 0 No delirium ind icated Problems Problem # Description Date of onset Resolved Date Code CodeSystem Concern Status 1 RESPIRATORY SYNCYTIAL VIRUS THE CAUSE OF DISEASES CLASSIFIED ELSEWHERE 07/01/[address] active 2 MORBID (SEVERE) OBESITY DUE TO EXCESS CALORIES 06/24/[address] active 3 ALCOHOL ABUSE, UNCOMPLICATED 06/23/[address] active 4 ANXIETY DISORDER, UNSPECIFIED 06/23/[address] active 5 BENIGN PROSTATIC HYPERPLASIA WITHOUT LOWER URINARY TRACT SYMPTOMS 06/23/[address] active 6 CELLULITIS OF RIGHT LOWER LIMB 06/23/[address] active 7 ESSENTIAL (PRIMARY) HYPERTENSION 06/23/[address] active 8 GOUT, UNSPECIFIED 06/23/[address] active 9 HISTORY OF FALLING 06/23/[address] active 10 HYPERLIPIDEMIA, UNSPECIFIED 06/23/[address] active 11 INSOMNIA, UNSPECIFIED 06/23/[address] active 12 MAJOR DEPRESSIVE DISORDER, RECURRENT, UNSPECIFIED 06/23/[address] active 13 MAJOR DEPRESSIVE DISORDER, SINGLE EPISODE, UNSPECIFIED 06/23/[address] active 14 MUSCLE WASTING AND ATROPHY, NOT ELSEWHERE CLASSIFIED, MULTIPLE SITES 06/23/[address] active 15 OTHER LOW BACK PAIN 06/23/[address] active 16 PAROXYSMAL ATRIAL FIBRILLATION 06/23/[address] active 17 PERSONAL HISTORY OF PULMONARY EMBOLISM 06/23/[address] active 18 UNSPECIFIED DIASTOLIC (CONGESTIVE) HEART FAILURE 06/23/[address] active 19 UNSPECIFIED PROTEIN-CALORIE MALNUTRITION 06/23/[address] active Reason for Referral No Reasons for Referral Entered Social History Social History Observation Description Start Date End Date Code Code System Current Smoking Status Tobacco smoking consumption unknown 481880640 SNOMED CT Sex Assigned At Male 1960 94612-8 [facility] Vital Signs Code Code System Vitals Name Values and Units Timing Information 8867-4 [facility] Heart rate Value=85.0 Units=/min 10/2024 34255-8 [facility] Weight Zezsg=291.8 Units=Lbs 10/2024 9279-1 [facility] Respiratory Rate Value=20.0 Units=/m in 07/13/2024 8462-4 [facility] Blood Pressure-Diastolic Value=74 Un its=mmHg 07/13/2024 8480-6 [facility] Blood Pressure-Systolic Ujipo=760 Un its=mmHg 07/13/2024 8310-5 [facility] Body Temperature Value=97.8 Units=?? F 07/13/2024 84991-1 [facility] O2 % BldC Oximetry Value=96.0 Units= % 07/13/2024 22552-6 [facility] Pain Level Value=0.0 07/12/2024 8302-2 [facility] Height Value=60.0 Units=Inches 06/23/2024
--- OUTSIDE RECORDS SUMMARY | 2024-07-15 20:39 | XMS_ITS | Encounter Summary ---
Author Organization [employer] Address [address] [facility] [address] [place] [address] Care Team Providers Care Supply Chain Business Analyst Name Role Phone Rick Arcos MD Primary Care Prov ider Reason for Visit * Reason Onset Date Comments Verbal Order 07/15/2024 Encounter Details Date Type Department Care Team (Late st Contact Info) Description 07/15/2024 Telephone [facility] MEDICINE [address] [place] [address] Rick Arcos MD [address] [place], [place] [phone] Verbal Order Social History Tobacco Use Types Packs/Day Years [...] encounter Miscellaneous Notes * Telephone Encounter - Cristina Hanley RN - 07/15/2024 10:52 AM EDT TC to Aleks to give verbal orders for wound care. Verbal ordered for wound care read back. * Telephone Encounter - Danyelle Lackey - 07/15/2024 8:35 AM EDT Tc from Aleks (nurse) with caretenders needing wound care verbal order. Aleks states pt has multiple small wound in the extremities. documented in this encounter Plan of Treatment Upcoming Encounters Date Type Department Care Team (Late st Contact Info) Description 07/28/2024 9:45 AM EDT Office Visit [facility] PEDS [address] [place] [address] Rick Arcos MD [address] [place] [address] documented as of this encounter Visit Diagnoses Not on filedocumented in this encounter Care Teams Supply Chain Business Analyst Relationship Specialty Start Date End Date Rick Arcos MD [address] [place] [address] PCP - General Internal Medicine 05/28/24 Caretensosa- Jos 06/09/24 documented as of this encounter
--- OUTSIDE RECORDS SUMMARY | 2024-07-15 20:39 | XMS_ITS | Encounter Summary ---
Author Organization [employer] Address [address] [place] [address] [address] [place] [address] Care Team Providers Care Communications Editor Name Role Phone Rick Arcos MD Primary Care Prov ider Encounter Details Date Type Department Care Team (Latest Contact Info) Description 11/14/2021 Abstract [facility] CONVERSIONS Dental, Provider, DDS Social History [...] Description 07/28/2024 9:45 AM EDT Office Visit [facility] PEDS [address] [place] [address] Rick Arcos MD [address] [place] [address] documented as of this encounter Visit Diagnoses Not on filedocumented in this encounter Care Teams Communications Editor Relationship Specialty Start Date End Date Rick Arcos MD [address] [place] [address] PCP - General Internal Medicine 05/28/24 Rodrick Arguello 06/09/24 documented as of this encounter
--- OUTSIDE RECORDS SUMMARY | 2024-07-15 20:39 | XMS_ITS | Encounter Summary ---
Author Organization [employer] Address [address] [facility] [address] [place] [address] Care Team Providers Care Command Post Superintendent Name Role Phone Rick Arcos MD Primary Care Prov ider Encounter Details Date Type Department Care Team (Late Contact Info) Description 07/15/2024 Telephone [facility] [address] [place] [address] Rick Arcos MD [address] [place] [address] Social History Tobacco Use Types Packs/Day Years [...] encounter Miscellaneous Notes * Telephone Encounter - Rick Genao MD - 07/15/2024 3:51 PM EDT Patient has been requesting oxycodone, prescription will not be sent due to recent issue with overdose, if he wants pain control he needs to take tylenol PRN. documented in this encounter Plan of Treatment Upcoming Encounters Date Type Department Care Team (Late Contact Info) Description 07/28/2024 9:45 AM EDT Office Visit [facility] [address] [place] [address] Rick Arcos MD [address] [place] [address] documented as of this encounter Visit Diagnoses Not on filedocumented in this encounter Care Teams Command Post Superintendent Relationship Specialty Start Date End Date Rick Arcos MD [address] [place] [address] PCP - General Internal Medicine 05/28/24 Rodrick Arguello 06/09/24 documented as of this encounter
--- OUTSIDE RECORDS SUMMARY | 2024-07-15 20:39 | XMS_ITS | Encounter Summary ---
Author Organization [facility] Address [address] [place] [address] Care Team Providers Care Flight Security Specialist Name Role Phone Maty Darnell MD Primary Care Provider [phone] Encounter Details Date Type Department Care Team (Late st Contact Info) Description 05/25/2024 Lab Requisition [facility] - Main Lab [address] [place] [address] Herminio Lee MD [address] [place] [address] Essential (primary) hypertension; Fever, unspecified Social History [...] LAB CHEMISTRY METHOD 05/25/2024 11:48 AM EST [facility] Potassium 4.3 3.5 - 5.5 mmol/L LAB CHEMISTRY METHOD 05/25/2024 11:48 AM [facility] LAB Chloride 101 96 - 110 mmol/L LAB CHEMISTRY METHOD 05/25/2024 11:48 AM [facility] LAB CO2 24 21 - 32 mmol/L LAB CHEMISTRY METHOD 05/25/2024 11:48 AM [facility] LAB Anion Gap 11 3 - 11 LAB CHEMISTRY METHOD 05/25/2024 11:48 AM [facility] LAB Glucose 95 70 - 100 mg/dL LAB CHEMISTRY METHOD 05/25/2024 11:48 AM [facility] LAB BUN 21 5 - 25 mg/dL LAB CHEMISTRY METHOD 05/25/2024 11:48 AM [facility] LAB Creatinine 1.36(H) 0.70 - 1.30 mg/dL LAB CHEMISTRY METHOD 05/25/2024 11:48 AM [facility] LAB eGFR 57(L) >=60 mL/min/1. 73m2 LAB CHEMISTRY METHOD 05/25/2024 11:48 AM [facility] LAB Comment:Calculation based on the??Chronic Kidney Disease Epidemiology Collaboration (CKD-EPI) equation refit??without adjustment for race. BUN/Creatinine Ratio 15.4 LAB CHEMISTRY METHOD 05/25/2024 11:48 AM [facility] LAB Calcium 8.1(L) 8.5 - 10.5 mg/dL LAB CHEMISTRY METHOD 05/25/2024 11:48 AM [facility] LAB Blood Venous blood specimen / Unknown Venipuncture / Unknown 05/25/2024 7:40 AM EST 05/25/2024 10:32 AM EST us Herminio Lee MD LAB BLOOD ORDERABLES Final R esult [facility] LAB [address] [place] [address], * (ABNORMAL) Complete blood count (05/25/2024 7:40 AM EST) [facility] WBC 7.4 4.8 - 10.8 K/mcL LAB HEMETOLOGY METHOD 05/25/2024 11:44 AM [facility] LAB RBC 3.90(L) 4.50 - 5.50 M/mcL LAB HEMETOLOGY METHOD 05/25/2024 11:44 AM [facility] LAB Hemoglobin 11.4(L) 13.5 - 17.5 g/dL LAB HEMETOLOGY METHOD 05/25/2024 11:44 AM [facility] LAB Hematocrit 36.9(L) 42.0 - 54.0 % LAB HEMETOLOGY METHOD 05/25/2024 11:44 AM [facility] LAB MCV 95.3 79.0 - 98.0 FL LAB HEMETOLOGY METHOD 05/25/2024 11:44 AM [facility] LAB MCH 29.5 27.0 - 32.0 pcg LAB HEMETOLOGY METHOD 05/25/2024 11:44 AM [facility] LAB MCHC 30.9(L) 32.0 - 37.0 g/dL LAB HEMETOLOGY METHOD 05/25/2024 11:44 AM [facility] LAB RDW 15.0 11.0 - 15.0 % LAB HEMETOLOGY METHOD 05/25/2024 11:44 AM [facility] LAB Platelets 164 130 - 400 K/mcL LAB HEMETOLOGY METHOD 05/25/2024 11:44 AM [facility] LAB MPV 11.5(H) 7.0 - 11.0 FL LAB HEMETOLOGY METHOD 05/25/2024 11:44 AM [facility] LAB NRBC 0.0 <1.0 % LAB HEMETOLOGY METHOD 05/25/2024 11:44 AM [facility] LAB NRBC Absolute 0.00 <0.10 K/mcL LAB HEMETOLOGY METHOD 05/25/2024 11:44 AM EST [facility] LAB Blood Venous blood specimen / Unknown Venipuncture / Unknown 05/25/2024 7:40 AM EST 05/25/2024 10:32 AM EST us Herminio Lee MD LAB BLOOD ORDERABLES Final R esult [facility] LAB [address] [place] [address], documented in this encounter Visit Diagnoses Diagnosis Essential (primary) hypertension Unspecified essential hypertension Fever, unspecified documented in this encounter Additional Health Concerns Infection Onset Date Last Indicated Resolved Time Respiratory Rule-Out 05/26/2024 05/26/2024 025 3:08 PM EST Influenza 05/26/2024 05/26/2024 06/19/2024 7:04 PM EDT documented as of this encounter Care Teams Flight Security Specialist Relationship Specialty Start Date End Date Maty Darnell MD [address] [place] PCP - General Internal Medicine 10/24/19 documented as of this encounter
--- OUTSIDE RECORDS SUMMARY | 2024-07-15 20:39 | XMS_ITS | Encounter Summary ---
Author Organization [employer] Address [address] [facility] [address] [place] [address] Care Team Providers Care Financial Institution President Name Role Phone Rick Arcos MD Primary Care Prov ider Reason for Visit * Reason Onset Date Comments Nurse Triage 07/15/2024 Encounter Details Date Type Department Care Team (Late st Contact Info) Description 07/15/[address] [facility] MEDICINE [address] [place] [address] Rick Arcos MD [address] [place], [place] [phone] Nurse Triage Social History Tobacco Use Types [...] encounter Miscellaneous Notes * Telephone Encounter - Lanie Jackson LPN - 07/15/2024 10:59 AM EDT Triage call returned to patient who was discharged from [facility] on Saturday07/13/2024. Though documentation show Oxycodone was filled for 26 tabs on 07/10/24 patient was not allowed to take home medication upon discharge. Per patient it is the [facility] policy. Last Oxycodone taken at 10am on Saturday.Reports symptom of diarrhea and nausea as no medication available. Patient seeking refill for home use pending [facility] appt with PCP on 07/28/24. Disposition reviewed and patient in agreement with plan. Forwarded to PCP and team as FYI to follow up PRN Protocol Used: Diarrhea (Adult) Protocol-Based Disposition: See in Office or Video Visit within 3 Days Override (Final) Disposition: Discuss with PCP and Callback by Nurse Today Override Reason: Prescription issue Video visit offer not recorded Positive Triage Question: * Patient wants to be seen * All higher-acuity triage questions were negative Care Advice Discussed: * Reasons To Call Back - You become worse * Telephone Encounter - Marcio Moreno - 07/15/2024 10:27 AM EDT Symptoms: Diarrhea, Vomiting Outcome: Talk to a nurse or provider within 15 minutes Reason: Severe headache The caller accepted this outcome. Contact pt at [phone] Pt states that the symptoms that he is having are due to him not having his medication oxyCODONE (Oxy-IR) 5 MG immediate release capsule. documented in this encounter Plan of Treatment Upcoming Encounters Date Type Department Care Team (Late st Contact Info) Description 07/28/2024 9:45 AM EDT Office Visit [facility] MED & PEDS [address] [place] [address] Rick Arcos MD [address] [place] [address] documented as of this encounter Visit Diagnoses Not on filedocumented in this encounter Care Teams Financial Institution President Relationship Specialty Start Date End Date Rick Arcos MD [address] [place] [address] PCP - General Internal Medicine 05/28/24 Rodrick Arguello 06/09/24 documented as of this encounter
--- OUTSIDE RECORDS SUMMARY | 2024-07-15 20:39 | XMS_ITS | Encounter Summary ---
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 Social History Tobacco Use [...] Cellulitis, unspecified Unspecified atrial fibrillation (CMS/HCC) 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 BASIC METABOLIC PANEL Routine 03/26/2024 8:15 AM EST Cellulitis, unspecified Unspecified atrial fibrillation (CMS/HCC) Other fpc (current) drug therapy documented in this encounter Results * Basic metabolic panel (03/26/2024 8:15 AM EST) Sodium 140 133 - 145 mmol/L LAB CHEMISTRY METHOD 03/26/2024 1:05 PM [facility] LAB Potassium 4.1 3.5 - 5.5 mmol/L LAB CHEMISTRY METHOD 03/26/2024 1:05 PM [facility] LAB Chloride 103 96 - 110 mmol/L LAB CHEMISTRY METHOD 03/26/2024 1:05 PM [facility] LAB CO2 30 21 - 32 mmol/L LAB CHEMISTRY METHOD 03/26/2024 1:05 PM [facility] LAB Anion Gap 7 3 - 11 LAB CHEMISTRY METHOD 03/26/2024 1:05 PM [facility] LAB Glucose 88 70 - 100 mg/dL LAB CHEMISTRY METHOD 03/26/2024 1:05 PM [facility] LAB BUN 13 5 - 25 mg/dL LAB CHEMISTRY METHOD 03/26/2024 1:05 PM [facility] LAB Creatinine 0.95 0.70 - 1.30 mg/dL LAB CHEMISTRY METHOD 03/26/2024 1:05 PM [facility] LAB eGFR 89 >=60 mL/min/1. 73m2 LAB CHEMISTRY METHOD 03/26/2024 1:05 PM [facility] LAB Comment:Calculation based on the??Chronic Kidney Disease Epidemiology Collaboration (CKD-EPI) equation refit??without adjustment for race. BUN/Creatinine Ratio 13.7 LAB CHEMISTRY METHOD 03/26/2024 1:05 PM [facility] LAB Calcium 8.7 8.5 - 10.5 mg/dL LAB CHEMISTRY METHOD 03/26/2024 1:05 PM [facility] LAB Blood Venous blood specimen / Unknown Venipuncture / Unknown 03/26/2024 8:15 AM EST 03/26/2024 11:31 AM EST us Herminio Lee MD LAB BLOOD ORDERABLES Final R esult [facility] LAB [address] [place] [address], * (ABNORMAL) Complete blood count (03/26/2024 8:15 AM EST) [facility] WBC 6.6 4.8 - 10.8 K/mcL LAB HEMETOLOGY METHOD 03/26/2024 12:43 PM [facility] LAB RBC 4.20(L) 4.50 - 5.50 M/mcL LAB HEMETOLOGY METHOD 03/26/2024 12:43 PM [facility] LAB Hemoglobin 12.8(L) 13.5 - 17.5 g/dL LAB HEMETOLOGY METHOD 03/26/2024 12:43 PM [facility] LAB Hematocrit 42.1 42.0 - 54.0 % LAB HEMETOLOGY METHOD 03/26/2024 12:43 PM [facility] LAB MCV 101.0(H) 79.0 - 98.0 FL LAB HEMETOLOGY METHOD 03/26/2024 12:43 PM [facility] LAB MCH 30.7 27.0 - 32.0 pcg LAB HEMETOLOGY METHOD 03/26/2024 12:43 PM [facility] LAB MCHC 30.4(L) 32.0 - 37.0 g/dL LAB HEMETOLOGY METHOD 03/26/2024 12:43 PM [facility] LAB RDW 15.3(H) 11.0 - 15.0 % LAB HEMETOLOGY METHOD 03/26/2024 12:43 PM [facility] LAB Platelets 246 130 - 400 K/mcL LAB HEMETOLOGY METHOD 03/26/2024 12:43 PM [facility] LAB MPV 10.5 7.0 - 11.0 FL LAB HEMETOLOGY METHOD 03/26/2024 12:43 PM [facility] LAB NRBC 0.0 <1.0 % LAB HEMETOLOGY METHOD 03/26/2024 12:43 PM EST [facility] LAB NRBC Absolute 0.00 <0.10 K/[facility] LAB HEMETOLOGY METHOD 03/26/2024 12:43 PM EST [facility] LAB Blood Venous blood specimen / Unknown Venipuncture / Unknown 03/26/2024 8:15 AM EST 03/26/2024 11:31 AM EST us Herminio Lee MD LAB BLOOD ORDERABLES Final R esult [facility] LAB [address] [place] [address], documented in this encounter Visit Diagnoses Diagnosis Cellulitis, unspecified Unspecified atrial 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
--- OUTSIDE RECORDS SUMMARY | 2024-07-15 20:39 | XMS_ITS | Encounter Summary ---
Author Organization [facility] Address [address] [place] [address] Care Team Providers Care Assistant Department Manager Name Role Phone Maty Darnell MD Primary Care Provider [phone] Encounter Details Date Type Department Care Team (Late st Contact Info) Description 06/01/[address] [facility] - Main Lab [address] [place] [address] Herminio Lee MD [address] [place] [address] Shortness of breath Social History Tobacco Use [...] LAB CHEMISTRY METHOD 06/01/2024 12:30 PM EST [facility] LAB Potassium 4.4 3.5 - 5.5 mmol/L LAB CHEMISTRY METHOD 06/01/2024 12:30 PM [facility] LAB Chloride 107 96 - 110 mmol/L LAB CHEMISTRY METHOD 06/01/2024 12:30 PM [facility] LAB CO2 25 21 - 32 mmol/L LAB CHEMISTRY METHOD 06/01/2024 12:30 PM [facility] LAB Anion Gap 9 3 - 11 LAB CHEMISTRY METHOD 06/01/2024 12:30 PM [facility] LAB Glucose 79 70 - 100 mg/dL LAB CHEMISTRY METHOD 06/01/2024 12:30 PM [facility] LAB BUN 18 5 - 25 mg/dL LAB CHEMISTRY METHOD 06/01/2024 12:30 PM [facility] LAB Creatinine 1.16 0.70 - 1.30 mg/dL LAB CHEMISTRY METHOD 06/01/2024 12:30 PM [facility] LAB eGFR 69 >=60 mL/min/1. 73m2 LAB CHEMISTRY METHOD 06/01/2024 12:30 PM [facility] LAB Comment:Calculation based on the??Chronic Kidney Disease Epidemiology Collaboration (CKD-EPI) equation refit??without adjustment for race. BUN/Creatinine Ratio 15.5 LAB CHEMISTRY METHOD 06/01/2024 12:30 PM [facility] LAB Calcium 8.7 8.5 - 10.5 mg/dL LAB CHEMISTRY METHOD 06/01/2024 12:30 PM [facility] LAB Blood Venous blood specimen / Unknown Venipuncture / Unknown 06/01/2024 10:03 AM EST 06/01/2024 11:00 AM EST us Herminio Lee MD LAB BLOOD ORDERABLES Final R esult [facility] LAB [address] [place] [address], * (ABNORMAL) Complete blood count (06/01/2024 10:03 AM EST) WBC 8.8 4.8 - 10.8 K/mcL LAB HEMETOLOGY METHOD 06/01/2024 1:47 PM [facility] LAB RBC 4.30(L) 4.50 - 5.50 M/mcL LAB HEMETOLOGY METHOD 06/01/2024 1:47 PM [facility] LAB Hemoglobin 12.6(L) 13.5 - 17.5 g/dL LAB HEMETOLOGY METHOD 06/01/2024 1:47 PM [facility] LAB Hematocrit 40.6(L) 42.0 - 54.0 % LAB HEMETOLOGY METHOD 06/01/2024 1:47 PM [facility] LAB MCV 94.9 79.0 - 98.0 FL LAB HEMETOLOGY METHOD 06/01/2024 1:47 PM [facility] LAB MCH 29.4 27.0 - 32.0 pcg LAB HEMETOLOGY METHOD 06/01/2024 1:47 PM [facility] LAB MCHC 31.0(L) 32.0 - 37.0 g/dL LAB HEMETOLOGY METHOD 06/01/2024 1:47 PM [facility] LAB RDW 15.2(H) 11.0 - 15.0 % LAB HEMETOLOGY METHOD 06/01/2024 1:47 PM [facility] LAB Platelets 282 130 - 400 K/mcL LAB HEMETOLOGY METHOD 06/01/2024 1:47 PM [facility] LAB MPV 10.6 7.0 - 11.0 FL LAB HEMETOLOGY METHOD 06/01/2024 1:47 PM [facility] LAB NRBC 0.0 <1.0 % LAB HEMETOLOGY METHOD 06/01/2024 1:47 PM [facility] LAB NRBC Absolute 0.00 <0.10 K/mcL LAB HEMETOLOGY METHOD 06/01/2024 1:47 PM [facility] LAB Blood Venous blood specimen / Unknown Venipuncture / Unknown 06/01/2024 10:03 AM EST 06/01/2024 11:00 AM EST us Herminio Lee MD LAB BLOOD ORDERABLES Final R esult [facility] LAB [address] [place] [address], documented in this encounter Visit Diagnoses Diagnosis Shortness of breath documented in this encounter Additional Health Concerns Infection Onset Date Last Indicated Resolved Time Influenza 05/26/2024 05/26/2024 06/19/2024 7:04 PM EDT documented as of this encounter Care Teams Assistant Department Manager Relationship Specialty Start Date End Date Maty Darnell MD [address] [place] [address] [address] [place], [place] PCP - General Internal Medicine 10/24/19 documented as of this encounter
--- OUTSIDE RECORDS SUMMARY | 2024-07-15 20:39 | XMS_ITS | Encounter Summary ---
Author Organization [employer] Address [address] [facility] 7t [place] [address] Care Team Providers Care Bowl Topper Name Role Phone Rick Arcos MD Primary Care Prov ider Reason for Visit * Reason Onset Date Comments Medication Question 07/14/2024 Encounter Details Date Type Department Care Team ([facility] st Contact Info) Description 07/14/2024 Telephone [facility] MEDICINE [address] [place] [address] Rick Arcos MD [address] [place], [place] [phone] Medication Question Social History Tobacco Use Types [...] encounter Miscellaneous Notes * Telephone Encounter - Danyelle Lackey - 07/15/2024 8:19 AM EDT Tc from pt regarding prior message. * Telephone Encounter - Marcio Moreno - 07/14/2024 9:41 AM EDT TC from pt requesting a call back regarding medication oxyCODONE (Oxy-IR) 5 MG immediate release capsule. Pt wants to kw why he is not getting medication. Contact pt at [phone] documented in this encounter Plan of Treatment Upcoming Encounters Date Type Department Care Team ([facility] st Contact Info) Description 07/28/2024 9:45 AM EDT Office Visit [facility] MED & PEDS [address] [place] [address] Rick Arcos MD [address] [place] [address] documented as of this encounter Visit Diagnoses Not on filedocumented in this encounter Care Teams Bowl Topper Relationship Specialty Start Date End Date Rick Arcos MD [address] [place] [address] PCP - General Internal Medicine 05/28/24 Rodrick Arguello 06/09/24 documented as of this encounter
--- OUTSIDE RECORDS SUMMARY | 2024-07-15 20:39 | XMS_ITS | Encounter Summary ---
Author Organization [employer] Address [address] [place] [address] [address] [place] [address] Care Team Providers Care Chancery Clerk Name Role Phone Rick Arcos MD Primary Care Prov ider Reason for Visit * Reason Onset Date Comments Med Refill 07/15/2024 Encounter Details Date Type Department Care Team ([facility] st Contact Info) Description 07/15/2024 Telephone [facility] MED & PEDS [address] [place], [place] [phone] Rick Arcos MD [address] [place] [address] Med Refill Social History Tobacco Use Types Packs/Day Years [...] Encounter - Cristina Hanley RN - 07/15/2024 4:06 PM EDT TC to patient d/t patient calling multiple times demanding Oxycodone and Ambien. Informed patient Dr. Schuster will not be prescribing any controlled substance for him per Dr. Schuster. Patient stated he was sick as a dog, and what is he suppose to do about that? RN instructed patient to go to ER to be evaluated. Patient ended call. documented in this encounter Plan of Treatment Upcoming Encounters Date Type Department Care Team (Late st Contact Info) Description 07/28/2024 9:45 AM EDT Office Visit [facility] MED & PEDS [address] [place] [address] Rick Arcos MD [address] [place] [address] documented as of this encounter Visit Diagnoses Not on filedocumented in this encounter Care Teams Chancery Clerk Relationship Specialty Start Date End Date Rick Arcos MD [address] [place] [address] PCP - General Internal Medicine 05/28/24 Rodrick Arguello 06/09/24 documented as of this encounter
--- OUTSIDE RECORDS SUMMARY | 2024-07-15 20:39 | XMS_ITS | Encounter Summary ---
Author Organization [facility] Address [id number] [place] [phone] Care Team Providers Care Leather Stripping Machine Operator Name Role Phone Maty Darnell MD Primary Care Provider [phone] Encounter Details Date Type Department Care Team (Late st Contact Info) Description 04/02/2024 Lab Requisition [facility] - Main Lab [address] [place] [address] Herminio Lee MD [address] [place] [address] Unspecified atrial fibrillation (CMS/HCC) Social History Tobacco [...] LAB CHEMISTRY METHOD 04/03/2024 10:04 AM EST [facility] Potassium 4.4 3.5 - 5.5 mmol/L LAB CHEMISTRY METHOD 04/03/2024 10:04 AM [facility] LAB Comment:Hemolysis present Chloride 107 96 - 110 mmol/L LAB CHEMISTRY METHOD 04/03/2024 10:04 AM [facility] CO2 28 21 - 32 mmol/L LAB CHEMISTRY METHOD 04/03/2024 10:04 AM [facility] Anion Gap 4 3 - 11 LAB CHEMISTRY METHOD 04/03/2024 10:04 AM [facility] Glucose 85 70 - 100 mg/dL LAB CHEMISTRY METHOD 04/03/2024 10:04 AM [facility] BUN 18 5 - 25 mg/dL LAB CHEMISTRY METHOD 04/03/2024 10:04 AM [facility] Creatinine 1.03 0.70 - 1.30 mg/dL LAB CHEMISTRY METHOD 04/03/2024 10:04 AM [facility] eGFR 81 >=60 mL/min/1. 73m2 LAB CHEMISTRY METHOD 04/03/2024 10:04 AM [facility] Comment:Calculation based on the??Chronic Kidney Disease Epidemiology Collaboration (CKD-EPI) equation refit??without adjustment for race. BUN/Creatinine Ratio 17.5 LAB CHEMISTRY METHOD 04/03/2024 10:04 AM [facility] Calcium 8.7 8.5 - 10.5 mg/dL LAB CHEMISTRY METHOD 04/03/2024 10:04 AM [facility] AST (SGOT) 27 10 - 42 unit/L LAB CHEMISTRY METHOD 04/03/2024 10:04 AM [facility] Comment:Hemolysis present ALT (SGPT) 22 10 - 60 unit/L LAB CHEMISTRY METHOD 04/03/2024 10:04 AM [facility] Alkaline Phosphatase 96 42 - 121 unit/L LAB CHEMISTRY METHOD 04/03/2024 10:04 AM [facility] Total Protein 7.0 6.0 - 8.0 g/dL LAB CHEMISTRY METHOD 04/03/2024 10:04 AM [facility] Albumin 3.1(L) 3.2 - 5.0 g/dL LAB CHEMISTRY METHOD 04/03/2024 10:04 AM [facility] Total Bilirubin 0.3 0.0 - 1.4 mg/dL LAB CHEMISTRY METHOD 04/03/2024 10:04 AM [facility] Blood Venous blood specimen / Unknown Venipuncture / Unknown 04/03/2024 7:26 AM EST 04/03/2024 9:41 AM EST us Herminio Lee MD LAB BLOOD ORDERABLES Final R esult [facility] [address] [place] [address], * (ABNORMAL) Complete blood count (04/03/2024 7:26 AM EST) WBC 7.0 4.8 - 10.8 K/mcL LAB HEMETOLOGY METHOD 04/03/2024 9:49 AM [facility] RBC 4.00(L) 4.50 - 5.50 M/mcL LAB HEMETOLOGY METHOD 04/03/2024 9:49 AM [facility] Hemoglobin 12.2(L) 13.5 - 17.5 g/dL LAB HEMETOLOGY METHOD 04/03/2024 9:49 AM [facility] Hematocrit 40.3(L) 42.0 - 54.0 % LAB HEMETOLOGY METHOD 04/03/2024 9:49 AM [facility] MCV 100.0(H) 79.0 - 98.0 FL LAB HEMETOLOGY METHOD 04/03/2024 9:49 AM [facility] MCH 30.3 27.0 - 32.0 pcg LAB HEMETOLOGY METHOD 04/03/2024 9:49 AM EST [facility] MCHC 30.3(L) 32.0 - 37.0 g/dL LAB HEMETOLOGY METHOD 04/03/2024 9:49 AM [facility] RDW 15.3(H) 11.0 - 15.0 % LAB HEMETOLOGY METHOD 04/03/2024 9:49 AM EST [facility] Platelets 326 130 - 400 K/mcL LAB HEMETOLOGY METHOD 04/03/2024 9:49 AM EST [facility] MPV 10.2 7.0 - 11.0 FL LAB HEMETOLOGY METHOD 04/03/2024 9:49 AM [facility] NRBC 0.0 <1.0 % LAB HEMETOLOGY METHOD 04/03/2024 9:49 AM [facility] NRBC Absolute 0.00 <0.10 K/mcL LAB HEMETOLOGY METHOD 04/03/2024 9:49 AM [facility] Blood Venous blood specimen / Unknown Venipuncture / Unknown 04/03/2024 7:26 AM EST 04/03/2024 9:42 AM EST us Herminio Lee MD LAB BLOOD ORDERABLES Final R esult [facility] [address] [place] [address], documented in this encounter Visit Diagnoses Diagnosis Unspecified atrial fibrillation (CMS/HCC) documented in this encounter Additional Health Concerns Infection Onset Date Last Indicated Resolved Time Respiratory Rule-Out 05/26/2024 05/26/2024 025 3:08 PM EST Influenza 05/26/2024 05/26/2024 06/19/2024 7:04 PM EDT documented as of this encounter Care Teams Leather Stripping Machine Operator Relationship Specialty Start Date End Date Maty Darnell MD [address] [place] [address] Dr Maximo Arguello [place] PCP - General Internal Medicine 10/24/19 documented as of this encounter
--- OUTSIDE RECORDS SUMMARY | 2024-07-15 20:39 | XMS_ITS | Encounter Summary ---
Author Organization [employer] Address [address] [facility] [address] [place] [address] Care Team Providers Care Fish Hatchery Supervisor Name Role Phone Rick Arcos MD Primary Care Prov ider Reason for Visit * Reason Onset Date Comments verbal order 07/14/2024 Encounter Details Date Type Department Care Team ([facility] st Contact Info) Description 07/14/2024 Telephone [facility] [address] [place] [address] Rick Arcos MD [address] [place], [place] [phone] verbal order Social History Tobacco Use Types [...] Telephone Encounter - Cristina Hanley RN - 07/14/2024 8:47 AM EDT Returned call to [facility] with [facility]. Verbal orders given for resumption of care, PT, and OT. * Telephone Encounter - Danyelle Lackey - 07/14/2024 8:37 AM EDT Tc from [facility] with [facility] needing verbal resumption care order. documented in this encounter Plan of Treatment Upcoming Encounters Date Type Department Care Team (Late st Contact Info) Description 07/28/2024 9:45 AM EDT Office Visit [facility] MED & PEDS [address] [place] [address] Rick Arcos MD [address] [place] [address] documented as of this encounter Visit Diagnoses Not on filedocumented in this encounter Care Teams Fish Hatchery Supervisor Relationship Specialty Start Date End Date Rick Arcos MD [address] [place] [address] PCP - General Internal Medicine 05/28/24 Lilianatensosa Jos 06/09/24 documented as of this encounter
--- OUTSIDE RECORDS SUMMARY | 2024-07-15 20:39 | XMS_ITS | Encounter Summary ---
Author Organization [employer] Address [address] [place] [address] [place] [address] Care Team Providers Care Geriatrics Physician Name Role Phone Rick Arcos MD Primary Care Prov ider Reason for Visit * Reason Onset Date Comments Med Refill 07/14/2024 Encounter Details Date Type Department Care Team ([facility] st Contact Info) Description 07/14/2024 Telephone [facility] MED & PEDS [address] [place], [place] [phone] Rick Arcos MD [address] [place] [address] Med Refill Social History Tobacco Use Types [...] Telephone Encounter - Barbara Velazquez RN - 07/14/2024 4:28 PM EDT Pt asking for refill of Oxycodone 5mg. Has been getting very short refills from outside providers,(see [facility]) last refills 07/07/24 qty 28, then 07/10/24 qty 26. Please advise. * Telephone Encounter - Allison Whitaker - 07/14/2024 4:07 PM EDT TC from pt requesting medication refill. Medications needing refill : zolpidem (Ambien) 10 MG tablet vilazodone (Viibryd) 20 MG tablet To be sent to: [facility] documented in this encounter Plan of Treatment Upcoming Encounters Date Type Department Care Team (Late st Contact Info) Description 07/28/2024 9:45 AM EDT Office Visit [facility] MED & PEDS [address] [place] [address] Rick Arcos MD [address] [place] [address] documented as of this encounter Visit Diagnoses Not on filedocumented in this encounter Care Teams Geriatrics Physician Relationship Specialty Start Date End Date Rick Arcos MD [address] [place] [address] PCP - General Internal Medicine 05/28/24 Rodrick Arguello 06/09/24 documented as of this encounter
--- OUTSIDE RECORDS SUMMARY | 2024-07-15 20:39 | XMS_ITS | Clinical Summary ---
Author Organization [facility] Address [address] [place] [address] Care Team Providers Care Bilingual Customer Service Specialist Name Role Phone Maty Darnell MD Primary Care Provider [phone] Allergies No known active allergies Medications Medication [...] Advance Directives For more information, please contact: [phone] Latest Code Status on File Code Status Date Activated Date Inactivated Comments Full Code 11/23/2019 12:35 AM 11/23/2019 8:10 PM Thi s code status was ascertained in the following [...] in the following way:. . Care Teams Bilingual Customer Service Specialist Relationship Specialty Start Date End Date Maty Darnell MD [address] [place] [address] [address] [place] [address] PCP - General Internal Medicine 10/24/19
--- OUTSIDE RECORDS SUMMARY | 2024-07-15 20:40 | XMS_ITS | Referral Summary ---
Author Organization [facility] Address [address] [place] [address] Care Team Providers Care Director Of Financial Aid Name Role Phone [facility] Primary Care Provider [phone] Allergies Active Allergy Reactions Criticality Noted Date [...] 2 days prior to admission. Was at [facility] prior to current presentation. Assessed by [...] 2 days prior to admission. Was at [facility] prior to current presentation. Assessed by [...] 2 days prior to admission. Was at [facility] prior to current presentation. Assessed by [...] 2 days prior to admission. Was at [facility] prior to current presentation. Assessed by [...] 2 days prior to admission. Was at [facility] prior to current presentation. Assessed by addiction psych this admission who noted patient not interested in MAT for AUD. He was monitored on CIWA which was discontinued on 02/24. - outpatient PCP and AA follow up Assessment & Plan (02/26/2024 6:00 PM EST): Patient reports drinking one quart of hard liquor daily, last drink 2 days prior to admission. Was at [facility] prior to current presentation. Assessed by addiction psych this admission who noted patient not interested in MAT for AUD. He was monitored on CIWA which was discontinued on 02/24. - outpatient PCP and AA follow up Assessment & Plan (02/25/2024 7:00 PM EST): Patient reports drinking one quart of hard liquor daily, last drink 2 days prior to admission. Was at [facility] prior to current presentation. Assessed by [...] chronic venous stasis. He was hospitalized at [facility] back in July 2023 and at that [...] chronic venous stasis. He was hospitalized at [facility] back in July 2023 and at that [...] chronic venous stasis. He was hospitalized at [facility] back in July 2023 and at that [...] chronic venous stasis. He was hospitalized at [facility] back in July 2023 and at that [...] the leg swelling. He was hospitalized at [facility] back in July 2023 and at that [...] the leg swelling. He was hospitalized at [facility] back in July 2023 and at that [...] the leg swelling. He was hospitalized at [facility] back in July 2023 and at that [...] (03/15/2024 10:34 AM EST): Patient presented from [facility] for evaluation of right lower extremity swelling and redness. He was initiated on clindamycin at [facility] but without improvement so sent to [facility] for evaluation. L. Duplex negative for DVT. [...] will need to clear while inpatient to halfway vs other housing Assessment & Plan (03/14/2024 5:17 PM EST): Patient presented from [facility] for evaluation of right lower extremity swelling and redness. He was initiated on clindamycin at [facility] but without improvement so sent to [facility] for evaluation. L. Duplex negative for DVT. [...] will need to clear while inpatient to halfway vs other housing Assessment & Plan (03/09/2024 7:28 PM EST): Was initiated on clindamycin at [facility] but without improvement so sent to [facility] for evaluation. L. Duplex negative for DVT. [...] PM EST): Was initiated on clindamycin at [facility] but without improvement so sent to [facility] for evaluation. L. Duplex negative for DVT. [...] Plan (03/07/2024 1:35 PM EST): Presents from [facility] for evaluation of right lower extremity cellulitis. Was initiated on clindamycin at [facility] but without improvement so sent to [facility] for evaluation. He was sent for further [...] Plan (02/26/2024 6:00 PM EST): Presents from [facility] for evaluation of right lower extremity cellulitis. Was initiated on clindamycin at [facility] but without improvement so sent to [facility] for evaluation. He was sent for further [...] Plan (02/25/2024 7:00 PM EST): Presents from [facility] for evaluation of right lower extremity cellulitis. Was initiated on clindamycin at [facility] but without improvement so sent to [facility] for evaluation. He was sent for further [...] Date Smoking Tobacco: Never Smokeless Tobacco: Never [facility] Utilities Answer Date Recorded In [...] resistant organisms MRSA 02/22/2024 02/22/2024 Insurance MEDICARE [facility] [employer] Advance Directives Documents on File Type Date Recorded Patient Crew Leader Gluing Expl anation Health Care Proxy 03/11/2024 2:04 PM 03-11 * Full Code (Latest Code Status on File) Date Activated Date Inactivated Comments 02/22/2024 3:34 PM 03/16/2024 6:28 PM Care Teams Director Of Financial Aid Relationship Specialty Start Date End Date [address] [address] PCP - General 02/22/24
--- OUTSIDE RECORDS SUMMARY | 2024-07-15 20:40 | XMS_ITS | Encounter Summary ---
Author Organization [facility] Address [address] [place] [address] Care Team Providers Care Vessel Captain Name Role Phone Maty Darnell MD Primary Care Provider [phone] Encounter Details Date Type Department Care Team (Late st Contact Info) Description 05/26/2024 Lab Requisition [facility] - Main Lab [address] [place] [address] Herminio Lee MD [address] [place] [address] Acute cough; Fever, unspecified Social History Tobacco [...] Procedure Name Priority Date/Time Associated Diagnosis Comments [id number], RSV, FLU A AND B QUALITATIVE RT-PCR, LOCAL REFERENCE LAB Routine 05/26/2024 7:00 AM EST Acute cough Fever, unspecified documented in this encounter Results * (ABNORMAL) [id number], RSV, Influenza A and B qualitative RT-PCR (05/26/2024 7:00 AM EST) SARS COV-2 Not Detected Not Detected LAB MOLECULAR DIAGNOSTICS METHOD 05/26/2024 3:08 PM EST [facility] Comment: Disclaimer: The manner in which this information is used to guide patient care is the responsibility of the healthcare provider. Testing was performed using the [employer] m SARS-CoV-2 test. This test has [...] for Healthcare Providers can be found at: https://www.fda.gov/media/074125/download Fact sheet for Patients can be found at: https://www.fda.gov/media/780470/download Influenza A PCR Detected(A ) Not Detected LAB MOLECULAR DIAGNOSTICS METHOD 05/26/2024 3:08 PM [facility] Comment:This patient is posi tive for influenza A. If the patient is admitted, please order the Respiratory Virus Panel PCR (Epic ID: [id number]) so our lab can subtype the influenza A, per CDC recommendations. Influenza B PCR Not Detected Not Detected LAB MOLECULAR DIAGNOSTICS METHOD 05/26/2024 3:08 PM [facility] RSV PCR Not Detected Not Detected LAB MOLECULAR DIAGNOSTICS METHOD 05/26/2024 3:08 PM [facility] Swab Nasopharyngeal structure / Unknown Non-blood Collection / Unknown 05/26/2024 7:00 AM EST 05/26/2024 11:23 AM EST us Herminio Lee MD LAB MICROBIOLOGY - GENERAL O RDERABLES Final Result [facility] [address] [place] [address], documented in this encounter Visit Diagnoses Diagnosis Acute cough Fever, unspecified documented in this encounter Additional Health Concerns Infection Onset Date Last Indicated Resolved Time Respiratory Rule-Out 05/26/2024 05/26/2024 025 3:08 PM EST Influenza 05/26/2024 05/26/2024 06/19/2024 7:04 PM EDT documented as of this encounter Care Teams Vessel Captain Relationship Specialty Start Date End Date Maty Darnell MD [address] [place] [address] Dr [address] ANNEL Arguello PCP - General Internal Medicine 10/24/19 documented as of this encounter
--- OUTSIDE RECORDS SUMMARY | 2024-07-15 20:40 | XMS_ITS | Encounter Summary ---
Author Organization [employer] Address [address] [facility] 7[address] [place] [address] Care Team Providers Care Agricultural Produce Commission Agent Name Role Phone Rick Arcos MD Primary Care Prov ider Reason for Visit * Reason Onset Date Comments Medication Question 05/11/2024 Encounter Details Date Type Department Care Team (Late st Contact Info) Description 05/11/2024 Telephone [facility] MEDICINE [address] [place] [address] Rick Arcos MD [address] [place], [place] [phone] Medication Question Social History Tobacco Use Types [...] to prescribe medications and send them to [facility] pharmacy . Pt states he gave provider a list of about 20 medications documented in this encounter Plan of Treatment Upcoming Encounters Date Type Department Care Team (Late Contact Info) Description 07/28/2024 9:45 AM EDT Office Visit [facility] MED & PEDS [address] [place] [address] Rick Arcos MD [address] [place] [address] documented as of this encounter Visit Diagnoses Not on filedocumented in this encounter Care Teams Agricultural Produce Commission Agent Relationship Specialty Start Date End Date Rick Arcos MD [address] [place] [address] PCP - General Internal Medicine 05/28/24 Rodrick Arguello 06/09/24 documented as of this encounter
--- OUTSIDE RECORDS SUMMARY | 2024-07-15 20:40 | XMS_ITS | Encounter Summary ---
Author Organization [employer] Address [address] [place] [address] 7[address] [place] [address] Care Team Providers Care Social Worker Psychiatric Name Role Phone Rick Arcos MD Primary Care Prov ider Reason for Visit * Reason Onset Date Comments Hospital Follow-up 04/15/2024 Encounter Details Date Type Department Care Team (Late st Contact Info) Description 04/15/2024 Telephone [facility] [address] [place], [place] [phone] Barrington Morataya MD [address] [place], [place] [phone] Hospital Follow-up Social History Tobacco Use Types [...] from pt requesting a HDF appt. Hospital: [facility] Date of admission: 03/17/2024 Discharge date: 05/09/2024 Diagnosed: Discuss with pt. *Send message to [facility] Clinical Care Coordinators documented in this encounter Plan of Treatment Upcoming Encounters Date Type Department Care Team (Late st Contact Info) Description 07/28/2024 9:45 AM EDT Office Visit [facility] [address] [place] [address] Rick Arcos MD [address] [place] [address] documented as of this encounter Visit Diagnoses Not on filedocumented in this encounter Care Teams Social Worker Psychiatric Relationship Specialty Start Date End Date Rick Arcos MD [address] [place] [address] PCP - General Internal Medicine 05/28/24 Rodrick Arguello 06/09/24 documented as of this encounter
--- OUTSIDE RECORDS SUMMARY | 2024-07-15 20:40 | XMS_ITS | Clinical Summary ---
Author Organization [facility] Address [address] [place] [address] Care Team Providers Care Issuing Operator Name Role Phone [facility] Primary Care Provider [phone] Allergies Active Allergy Reactions Criticality Noted Date [...] 2 days prior to admission. Was at [facility] prior to current presentation. Assessed by [...] 2 days prior to admission. Was at [facility] prior to current presentation. Assessed by [...] 2 days prior to admission. Was at [facility] prior to current presentation. Assessed by [...] 2 days prior to admission. Was at [facility] prior to current presentation. Assessed by [...] 2 days prior to admission. Was at [facility] prior to current presentation. Assessed by addiction psych this admission who noted patient not interested in MAT for AUD. He was monitored on CIWA which was discontinued on 02/24. - outpatient PCP and AA follow up Assessment & Plan (02/26/2024 6:00 PM EST): Patient reports drinking one quart of hard liquor daily, last drink 2 days prior to admission. Was at [facility] prior to current presentation. Assessed by addiction psych this admission who noted patient not interested in MAT for AUD. He was monitored on CIWA which was discontinued on 02/24. - outpatient PCP and AA follow up Assessment & Plan (02/25/2024 7:00 PM EST): Patient reports drinking one quart of hard liquor daily, last drink 2 days prior to admission. Was at [facility] prior to current presentation. Assessed by [...] chronic venous stasis. He was hospitalized at [facility] back in July 2023 and at that [...] chronic venous stasis. He was hospitalized at [facility] back in July 2023 and at that [...] chronic venous stasis. He was hospitalized at [facility] back in July 2023 and at that [...] chronic venous stasis. He was hospitalized at [facility] back in July 2023 and at that [...] the leg swelling. He was hospitalized at [facility] back in July 2023 and at that [...] the leg swelling. He was hospitalized at [facility] back in July 2023 and at that [...] the leg swelling. He was hospitalized at [facility] back in July 2023 and at that [...] (03/15/2024 10:34 AM EST): Patient presented from [facility] for evaluation of right lower extremity swelling and redness. He was initiated on clindamycin at [facility] but without improvement so sent to [facility] for evaluation. L. Duplex negative for [...] will need to clear while inpatient to group home vs other housing Assessment & Plan (03/14/2024 5:17 PM EST): Patient presented from [facility] for evaluation of right lower extremity swelling and redness. He was initiated on clindamycin at [facility] but without improvement so sent to [facility] for evaluation. L. Duplex negative for [...] will need to clear while inpatient to group home vs other housing Assessment & Plan (03/09/2024 7:28 PM EST): Was initiated on clindamycin at [facility] but without improvement so sent to [facility] for evaluation. L. Duplex negative for [...] PM EST): Was initiated on clindamycin at [facility] but without improvement so sent to [facility] for evaluation. L. Duplex negative for [...] Plan (03/07/2024 1:35 PM EST): Presents from [facility] for evaluation of right lower extremity cellulitis. Was initiated on clindamycin at [facility] but without improvement so sent to [facility] for evaluation. He was sent for [...] Plan (02/26/2024 6:00 PM EST): Presents from [facility] for evaluation of right lower extremity cellulitis. Was initiated on clindamycin at [facility] but without improvement so sent to [facility] for evaluation. He was sent for [...] Plan (02/25/2024 7:00 PM EST): Presents from [facility] for evaluation of right lower extremity cellulitis. Was initiated on clindamycin at [facility] but without improvement so sent to [facility] for evaluation. He was sent for [...] Date Smoking Tobacco: Never Smokeless Tobacco: Never [facility] Utilities Answer Date Recorded In the past [...] 2023-2 5 season) 2023 08/10/2021, 08/18/2020, 07/21/2020 Alcohol/Substance Use Screening 04/08/2024 Depression Screening and Follow-Up 04/08/2024 Health Care Proxy Review 04/08/2024 Social Drivers of Health Annual Screening 04/08/2024 Influenza Vaccine (Season Ended) 2024 04/05/2010 Hepatitis B Vaccines Aged Out No long er eligible based on patient's age to complete this topic Additional Health Concerns Infection Onset Date Last Indicated 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
--- OUTSIDE RECORDS SUMMARY | 2024-07-15 20:40 | XMS_ITS | Clinical Summary ---
Author Organization [facility] Address [address] [place] [address] Care Team Providers Care Irrigation System Installer Name Role Phone Unavailable Primary Care Provider [...]
--- OUTSIDE RECORDS SUMMARY | 2024-07-15 20:40 | XMS_ITS | Encounter Summary ---
Author Organization [employer] Address [address] [facility] 7[address] [place] [address] Care Team Providers Care Marketing Traffic Manager Name Role Phone Rick Arcos MD Primary Care Prov ider Reason for Visit * Reason Onset Date Comments Appointment 08/22/2022 Encounter Details Date Type Department Care Team (Late st Contact Info) Description 08/22/2022 Telephone [facility] [address] [place], [place] [phone] Martín Dumont DDS [address] [place], [place] [phone] Appointment Social History Tobacco Use Types Packs/Day [...] Description 07/28/2024 9:45 AM EDT Office Visit [facility] [address] [place], [place] [phone] Rick Arcos MD [address] [place] [address] documented as of this encounter Visit Diagnoses Not on filedocumented in this encounter Care Teams Marketing Traffic Manager Relationship Specialty Start Date End Date Rick Arcos MD [address] [place] [address] PCP - General Internal Medicine 05/28/24 Rodrick Arguello 06/09/24 documented as of this encounter
--- OUTSIDE RECORDS SUMMARY | 2024-07-15 20:40 | XMS_ITS | Clinical Summary ---
Author Organization [address] Address [address] [place] [address] Phone Care Team Providers Care Flexographic Printing Machinist Name Role Phone Maty Darnell MD Primary Care Provider [phone] Encounters Date Type Department Care Team Description 06/01/2024 Lab Requisition [facility] Lab [address] [place] [phone] Herminio Lee MD Shortness of breath 05/26/2024 Lab Requisition [facility] Lab [address] [place] [phone] Herminio Lee MD Acute cough; Fever, unspecified 05/25/2024 Lab Requisition [facility] Lab [address] [place] [phone] Herminio Lee MD Essential (primary) hypertension; Fever, unspecified from Last 3 Months Medical History Medical [...] - Risk 3-dose series) 2018 RSV Immunization Adult Patients (1 - Risk 60-74 years 1-dose series) [...] age to complete this topic Meningococcal B Vaccine Aged Out No l onger eligible based on patient's age to complete [...] 06/01/2024 10:03 AM EST Shortness of breath [id number], RSV, FLU A AND B QUALITATIVE RT-PCR, LOCAL REFERENCE LAB Routine 05/26/2024 7:00 AM EST Acute cough Fever, unspecified BASIC METABOLIC PANEL Routine 05/25/2024 7:40 AM EST Essential (primary) hypertension Fever, unspecified COMPLETE BLOOD COUNT Routine 05/25/2024 7:40 AM EST Essential (primary) hypertension Fever, unspecified from Last 3 Months Results * (ABNORMAL) Complete blood count (06/01/2024 10:03 AM EST) Only the most recent of2 resultswithin the time period is included. WBC 8.8 4.8 - 10.8 K/mcL LAB HEMETOLOGY METHOD 06/01/2024 1:47 PM [facility] RBC 4.30(L) 4.50 - 5.50 M/mcL LAB HEMETOLOGY METHOD 06/01/2024 1:47 PM [facility] Hemoglobin 12.6(L) 13.5 - 17.5 g/dL LAB HEMETOLOGY METHOD 06/01/2024 1:47 PM [facility] Hematocrit 40.6(L) 42.0 - 54.0 % LAB HEMETOLOGY METHOD 06/01/2024 1:47 PM [facility] MCV 94.9 79.0 - 98.0 FL LAB HEMETOLOGY METHOD 06/01/2024 1:47 PM [facility] MCH 29.4 27.0 - 32.0 pcg LAB HEMETOLOGY METHOD 06/01/2024 1:47 PM [facility] MCHC 31.0(L) 32.0 - 37.0 g/dL LAB HEMETOLOGY METHOD 06/01/2024 1:47 PM [facility] RDW 15.2(H) 11.0 - 15.0 % LAB HEMETOLOGY METHOD 06/01/2024 1:47 PM [facility] Platelets 282 130 - 400 K/mcL LAB HEMETOLOGY METHOD 06/01/2024 1:47 PM [facility] MPV 10.6 7.0 - 11.0 FL LAB HEMETOLOGY METHOD 06/01/2024 1:47 PM EST [facility] NRBC 0.0 <1.0 % LAB HEMETOLOGY METHOD 06/01/2024 1:47 PM [facility] NRBC Absolute 0.00 <0.10 K/mcL LAB HEMETOLOGY METHOD 06/01/2024 1:47 PM [facility] Blood Venous blood specimen / Unknown Venipuncture / Unknown 06/01/2024 10:03 AM EST 06/01/2024 11:00 AM EST Herminio Lee MD LAB BLOOD ORDERABLES Final R esult [facility] [address] [place] [address], * Basic metabolic panel (06/01/2024 10:03 AM EST) Only the most recent of2 resultswithin the time period is included. Sodium 141 133 - 145 mmol/L LAB CHEMISTRY METHOD 06/01/2024 12:30 PM [facility] Potassium 4.4 3.5 - 5.5 mmol/L LAB CHEMISTRY METHOD 06/01/2024 12:30 PM [facility] Chloride 107 96 - 110 mmol/L LAB CHEMISTRY METHOD 06/01/2024 12:30 PM [facility] CO2 25 21 - 32 mmol/L LAB CHEMISTRY METHOD 06/01/2024 12:30 PM [facility] Anion Gap 9 3 - 11 LAB CHEMISTRY METHOD 06/01/2024 12:30 PM [facility] Glucose 79 70 - 100 mg/dL LAB CHEMISTRY METHOD 06/01/2024 12:30 PM [facility] BUN 18 5 - 25 mg/dL LAB CHEMISTRY METHOD 06/01/2024 12:30 PM [facility] Creatinine 1.16 0.70 - 1.30 mg/dL LAB CHEMISTRY METHOD 06/01/2024 12:30 PM [facility] eGFR 69 >=60 mL/min/1. 73m2 LAB CHEMISTRY METHOD 06/01/2024 12:30 PM [facility] Comment:Calculation based on the??Chronic Kidney Disease Epidemiology Collaboration (CKD-EPI) equation refit??without adjustment for race. BUN/Creatinine Ratio 15.5 LAB CHEMISTRY METHOD 06/01/2024 12:30 PM [facility] Calcium 8.7 8.5 - 10.5 mg/dL LAB CHEMISTRY METHOD 06/01/2024 12:30 PM [facility] Blood Venous blood specimen / Unknown Venipuncture / Unknown 06/01/2024 10:03 AM EST 06/01/2024 11:00 AM EST Herminio Lee MD LAB BLOOD ORDERABLES Final R esult [facility] [address] [place] [address], * (ABNORMAL) [id number], RSV, Influenza A and B qualitative RT-PCR (05/26/2024 7:00 AM EST) SARS COV-2 Not Detected Not Detected LAB MOLECULAR DIAGNOSTICS METHOD 05/26/2024 3:08 PM [facility] Comment: Disclaimer: The manner in which this information is used to guide patient care is the responsibility of the healthcare provider. Testing was performed using the [employer] SARS-CoV-2 test. This test has been authorized [...] for Healthcare Providers can be found at: https://www.fda.gov/media/103675/download Fact sheet for Patients can be found at: https://www.fda.gov/media/612377/download Influenza A PCR Detected(A ) Not Detected LAB MOLECULAR DIAGNOSTICS METHOD 05/26/2024 3:08 PM [facility] Comment:This patient is posi tive for influenza A. If the patient is admitted, please order the Respiratory Virus Panel PCR (Epic ID: [id number]) so our lab can subtype the influenza A, per CDC recommendations. Influenza B PCR Not Detected Not Detected LAB MOLECULAR DIAGNOSTICS METHOD 05/26/2024 3:08 PM [facility] RSV PCR Not Detected Not Detected LAB MOLECULAR DIAGNOSTICS METHOD 05/26/2024 3:08 PM [facility] Swab Nasopharyngeal structure / Unknown Non-blood Collection / Unknown 05/26/2024 7:00 AM EST 05/26/2024 11:23 AM EST Herminio Lee MD LAB MICROBIOLOGY - GENERAL O RDERABLES Final Result [facility] [address] [place] [address], from Last 3 Months Insurance MEDICARE MEDICAID - [place] Care Teams Flexographic Printing Machinist Relationship Specialty Start Date End Date Maty Darnell MD [address] [place] [address] [address] [place], [place] PCP - General Internal Medicine 10/24/19
--- OUTSIDE RECORDS SUMMARY | 2024-07-15 20:40 | XMS_ITS | Clinical Summary ---
Author Organization [employer] Address [address] [facility] 7t [place] [address] Care Team Providers Care Transformer Molder Name Role Phone Rick Arcos MD Primary [...] Administer 0.1 mL into affected nostril(s). Active dextromethorphan -guaiFENesin (Robitussin-DM) 10-100 MG/5ML liquid Take 10 mL by mouth every 4 (four) hours. Active Methylcobalamin 1 MG chewable tablet Active Multiple Vitamin (multivitamin) capsule Take 1 capsule by mouth Once per day. Active metoprolol tartrate (Lopressor) 100 MG tablet Take 100 mg by mouth 2 times daily. 4 Active acetaminophen (Tylenol) 325 MG capsule Take 1 capsule (325 mg) by mouth every 6 (six) hours if needed for mild pain. 120 capsule 3 5 05/22/19 26 Active Albuterol Sulfate, sensor, (ProAir Digihaler) 108 (90 Base) MCG/ACT aerosol powder Inhale 2 puffs every 4 (four) hours. 1 each 3 5 Active allopurinol (Zyloprim) 100 MG tablet Take 1 tablet (100 mg) by mouth Once per day. 90 tablet 3 5 05/22/19 Active apixaban (Eliquis) 2.5 MG tablet Take 2 tablets (5 mg) by mouth 2 times daily. 360 tablet 3 5 05/22/19 Active atorvastatin (Lipitor) 40 MG tablet Take 1 tablet (40 mg) by mouth Once per day. 90 tablet 3 5 05/22/19 Active cyclobenzaprine (Flexeril) 10 MG tabletIndication s:Muscle spasm Take 1 tablet (10 mg) by mouth every 12 (twelve) hours. 60 tablet 5 Active digoxin (Lanoxin) 250 MCG tab;et Take 1 tablet (250 mcg) by mouth Once per day. 30 tablet 1 5 07/22/19 25 Active dilTIAZem XR (Dilacor XR) 120 MG 24 hr capsule Take 1 capsule (120 mg) by mouth Once per day. 180mg daily 30 capsule 1 5 07/22/19 25 Active gabapentin (Neurontin) 400 MG capsule Take 1 capsule (400 mg) by mouth 3 times daily. 90 capsule 1 5 07/22/19 25 Active omeprazole (PriLOSEC) [address] capsule Take 1 capsule (40 mg) by mouth before breakfast. Do not crush or chew. 90 capsule 3 5 05/22/19 Active potassium chloride CR (Klor-Con M20) 20 MEQ ER tablet Take 1 tablet (20 mEq) by mouth Once per day. 90 tablet 5 08/21/19 25 Active Sennosides 8.6 MG capsule Take 2 capsules (17.2 mg) by mouth Once per day. 60 capsule 1 5 07/22/19 25 Active spironolactone (Aldactone) 50 MG tablet Take 1 tablet (50 mg) by mouth Once per day. 90 tablet 5 08/21/19 25 Active tamsulosin (Flomax) 0.4 MG 24 hr capsule Take 1 capsule (0.4 mg) by mouth Once per day. 90 capsule 3 5 05/22/19 26 Active torsemide (Demadex) 20 MG tablet Take 1 tablet (20 mg) by mouth 2 times daily. 180 tablet 3 5 05/22/19 26 Active venlafaxine XR (Effexor XR) 37.5 MG 24 hr capsule Take 1 capsule (37.5 mg) by mouth Once per day. 90 capsule 3 5 05/22/19 26 Active vilazodone (Viibryd) 20 MG tablet Take 2 tablets (40 mg) by mouth with evening meal. 7 tablet 3 5 Active zolpidem (Ambien) 10 MG tablet Take 1 tablet (10 mg) by mouth if needed at bedtime for sleep. 30 tablet 5 Active oxyCODONE (Oxy-IR) 5 MG immediate release capsuleIndicatio ns:Other chronic pain Take 1 capsule (5 mg) by mouth every 6 (six) hours. 2 tablet in the morning for pain, 1 tablet tid 112 capsule 5 Active Active Problems Problem Noted Date Diagnosed [...] 11:21 AM EST): Patient lives on a fpc 3 years [facility] Pmhx: Afib, severe neuropathy, Pshx: exploratory laparotomy due to obstruction 2019, stomach bypass 1994, deviated septum, prostate 1989', plantar fasciatis both feet, All:- Meds: as above Encounters Date Type Department Care Team Description 07/15/2024 Telephone [facility] [address] [place] [address] Rick Arcos MD Med Refill 07/15/2024 Telephone [facility] [address] [place] [address] Rick Arcos MD 07/15/2024 Telephone [facility] [address] [place] [address] Rick Arcos MD 07/15/[address] [address] Rick Arcos MD Nurse Triage 07/15/[address] [address] Rick Arcos MD Verbal Order 07/14/2024 Telephone [facility] [address] [place] [address] Rick Arcos MD Med Refill 07/14/[address] [address] Rick Arcos MD Medication Question 07/14/[address] [address] Rcik Arcos MD verbal order 07/10/2024 Patient Outreach [address] [address] Rick Arcos MD Transition Of Care (Tcm) (HDF scheduled) 06/24/[address] [address] Rick Arcos MD Appointment Request 06/19/[address] [address] Rick Arcos MD verbal order 06/19/[address] [address] Rick Arcos MD Nurse Triage 06/18/2024 Patient Outreach [facility] [address] [place] [address] Rick Arcos MD Pre-visit Planning (SDOH will need to be completed in office. ) 06/10/2024 Telephone [facility] [address] [place] [address] Rick Arcos MD Record Request 06/09/[address] [address] Rick Arcos MD Care Coordination; Medication Question 06/05/[address] [address] Rick Arcos MD Verbal Orders 06/03/2024 Orders Only [facility] [address] [place] [address] Rick Arcos MD 06/03/2024 Telephone [facility] [address] [place] [address] Rick Arcos MD Prior Authorization 05/29/2024 Refill [facility] [address] [place] [address] Barbara Velazquez, RN Other chronic pain 05/28/2024 Telephone [facility] [address] [place] [address] Barbara Velazquez, RN 05/27/2024 Refill [facility] [address] [place] [address] Rick Arcos MD Other chronic pain (Primary Dx) 05/27/2024 Refill [facility] [address] [place] [address] Rick Arcos MD 05/22/2024 Orders Only [facility] [address] [place] [address] Rick Arcos MD Muscle spasm (Primary Dx) 05/11/[address] [address] Rick Arcos MD Medication Question 05/05/2024 10:45 AM EST Telemedicine [facility] [address] [place] [address] Rick Arcos MD Encounter for medical examination [...] hepatitis, unspecified whether ascites present 05/05/2024 Travel from Last 3 Months Family History Medical [...] Description 07/28/2024 9:45 AM EDT Office Visit [facility] [address] [place] [address] Rick Arcos MD [address] [place] [address] Health Maintenance Due Date Last Done Comments [...] - PCV) 02/23/2019 02/23/2018, 09/27/2005 COVID-19 Vaccine ( - 2023-2 5 season) 2023 08/10/2021, 08/18/2020, [...] Processed 9 N/A 05/31/2024 1:24 AM EST [employer] (CLIA #:[id number]) Comment:An empty collection kit was received in the laboratory. The patient will be contacted to initiate a new sample collection. Stool specimen (specimen) Rectal contents / Unknown 05/30/2024 10:41 AM EST Rick Genao MD LAB MOLECULAR DIAG NOSTICS ORDERABLES Final Result [employer] (CLIA #:[id number]) [address] [place] [address], from Last 3 Months Insurance [facility] STANDARD MEDICARE [place] STAND ADULT Care Teams Transformer Molder Relationship Specialty Start Date End Date Rick rAcos MD [address] [place] [id number] PCP - General Internal Medicine 05/28/24 Rodrick Arguello 06/09/24
--- OUTSIDE RECORDS SUMMARY | 2024-07-15 20:40 | XMS_ITS | Encounter Summary ---
Author Organization [employer] Address [address] [place] [address] 7 [place] [address] Care Team Providers Care Orthopedic Radiologic Technologist Name Role Phone Rick Arcos MD Primary Care Prov ider Encounter Details Date Type Department Care Team (Late Contact Info) Description 06/03/2024 Orders Only [facility] [address] [place] [address] Rick Arcos MD [address] [place], [place] [phone] Social History Tobacco Use Types Packs/Day Years [...] 9:45 AM EDT Office Visit [facility] [address] [place] [address] Rick Arcos MD [address] [place], [place] [phone] documented as of this encounter Visit Diagnoses Not on filedocumented in this encounter Care Teams Orthopedic Radiologic Technologist Relationship Specialty Start Date End Date Rick Arcos MD [address] [place] [address] PCP - General Internal Medicine 05/28/24 Rodrick Arguello 06/09/24 documented as of this encounter
--- OUTSIDE RECORDS SUMMARY | 2024-07-15 20:40 | XMS_ITS | Encounter Summary ---
Author Organization [employer] Address [address] [facility] 7t [place] [address] Care Team Providers Care Visual Educator Name Role Phone Rick Arcos MD Primary Care Prov ider Reason for Visit * Reason Onset Date Comments Appointment Request 06/24/2024 Encounter Details Date Type Department Care Team ([facility] st Contact Info) Description 06/24/2024 Telephone [facility] [address] [place] [address] Rick Arcos MD [address] [place], [place] [phone] Appointment Request Social History Tobacco Use Types Packs/Day [...] * Telephone Encounter - Danyelle Lackey - 06/24/2024 3:34 PM EDT Tc from pt requesting r/s 06/25 physical appt with [facility]. Next available appt for September, pt hasconcerns w. Medications. documented in this encounter Plan of Treatment Upcoming Encounters Date Type Department Care Team (Late st Contact Info) Description 07/28/2024 9:45 AM EDT Office Visit [facility]ED[facility] [address] [place] [address] Rick Acros MD [address] [place] [address] documented as of this encounter Visit Diagnoses Not on filedocumented in this encounter Care Teams Visual Educator Relationship Specialty Start Date End Date Rick Arcos MD [address] [place] [address] PCP - General Internal Medicine 05/28/24 Rodrick Arguello 06/09/24 documented as of this encounter
[2024-07-15 20:47] LABS: MANUAL DIFF FLAG NO
[2024-07-15 20:50] LABS: Basophils Percent Auto 0.3 % (0-2); Hematocrit 43.5 % (42.0-52.0); Hemoglobin 14.2 g/dl (14.0-18.0); Imm Gran Abs Auto 0.19 X10*3/uL (0.00-0.03); Imm Gran Pct Auto 1.4 % (0.0-0.4); Lymphocytes Absolute Auto 0.6 X10*3/uL (1.2-4.9); Lymphocytes Percent Auto 4.6 % (20-40); Mean Corpuscular HGB Conc 32.6 g/dl (31.0-36.0); Mean Corpuscular Hemoglobin 28.5 pg (27.0-33.0); Mean Corpuscular Volume 87.2 fL (80.0-98.0); Mean Platelet Volume 10.5 fL (9.4-12.4); Monocytes Absolute Auto 1.1 X10*3/uL (0.1-1.2); Monocytes Percent Auto 7.9 % (2-11); Neutrophils Absolute Auto 11.4 x10*3/uL (2.0-8.3); Neutrophils Percent Auto 85.8 % (45-73); Platelet Count 212 X10*3/uL (160-400); Red Blood Count 4.99 X10*6/uL (4.60-5.80); Red Cell Distribution Width 16.7 % (11.0-16.0); White Blood Count 13.3 X10*3/uL (4.8-10.8)
[2024-07-15 21:04] LABS: Alanine Aminotransferase 42 U/L (0-40); Albumin Level 3.8 g/dL (3.5-5.0); Alkaline Phosphatase 101 U/L (39-117); Anion Gap 10 (12-20); Aspartate Amino Transferase 39 U/L (5-37); Bilirubin Total 0.8 mg/dL (0.0-1.0); Blood Urea Nitrogen 12 mg/dL (9-16); Carbon Dioxide 25 mmol/L (22-29); Chloride 107 mmol/L (96-108); Creatinine Clr Calc Pharmacy 129.4; Estimated Glomerular Filt Rate > 60; Ethanol < 10 mg/dL; Glucose Random 85 mg/dL (60-115); Sodium 138 mmol/L (135-145); Total Protein 7.3 g/dL (6.5-8.0)
[2024-07-15 21:30] LABS: Influenza A PCR NEGATIVE (Negative); Influenza B PCR NEGATIVE (Negative); Resp Syncy Virus RNA Qual PCR POSITIVE (Negative); SARS COV2 PCR INHOUSE NEGATIVE (Negative)
--- NOTE | 2024-07-15 21:30 | PC.NURSE ---
pt ambulated with steady gait to bathroom and back to stretcher. nad. resting comfortably in stretcher watching videos on cellphone. awaiting primary eval by ed provider.
[2024-07-15 21:53] VITALS: BP 121/83; PULSE 76; RESP 20; TEMP 36.6; O2SAT 98
--- NOTE | 2024-07-15 22:18 | PC.NURSE ---
pt oob requesting pain medication. educated awaiting eval by ed provider. no episodes of n/v/d since arrival. pt resting comfortably in stretcher at this time.
[2024-07-15 22:27] VITALS: PULSE 76
--- NOTE | 2024-07-15 23:17 | ED.GENADULT ---
HPI - General Adult General Chief complaint: General Medical Stated complaint: vomiting, abd pain Time Seen by Provider: 07/15/24 22:19 Source: patient Mode of arrival: ambulatory Limitations: no limitations History of Present Illness ED Provider: Anna Burnett NP HPI narrative: Patient is a 64-year-old male who presents emergency department for evaluation. He has personal expressed concern for possible withdrawal from oxycodone. He states for the majority of the past 3 years he has been in and out of multiple [place] [facility] [place] facilities including [facility] in [facility], other hospitals in [place] as well as [facility]. He was recently admitted to this hospital 06/19/2024-06/22/2024 for management of cellulitis to the right lower extremity (has completed course of antibiotics), he states that prior to coming to the hospital in June he had only been discharged from a [place] [facility] [place] facility for a couple of days. At this point, he states he was discharged 3 days ago 07/13/2024. Ultimately he has been receiving chronic opioids for various chronic pains by his account for the better part of the past 3 years, not prescribed by a primary care doctor as his care has primarily been in facilities. He states most recently at [facility] he was receiving oxycodone 5 mg every 4 hours. With anticipation of discharge on 07/11/2024 this was changed to oxycodone 5 mg every 6 hours. Ultimately he was discharged from the facility on 07/13/2024 with no prescription for oxycodone, and no established primary care provider until September of 2024. He states that 2 days ago he began having nausea and diffuse abdominal pain, has been vomiting, not able to tolerate any oral intake. He states that despite fluids or solids he vomits. Yesterday he began having multiple episodes of diarrhea described as liquid stools without hematochezia or melena. Additionally he feels that since yesterday his right lower extremity has increased in redness again, is painful and warm to touch. Denies any open wounds or lesions. Denies associated chest pain, shortness of breath, difficulty breathing. Related Data Home Medications ?Medication ?Instructions ?Recorded ?Confirmed acetaminophen 325 mg tablet 325 mg PO QID PRN Pain 06/19/24 06/19/24 albuterol sulfate 90 mcg/actuation 2 puff inhalation Q6H PRN 06/19/24 06/19/24 aerosol inhaler (Ventolin HFA) Shortness Of Breath Or Wheezing allopurinol 100 mg tablet 100 mg PO DAILY 06/19/24 06/19/24 apixaban 2.5 mg tablet (Eliquis) 2.5 mg PO BID 06/19/24 06/19/24 atorvastatin 40 mg tablet 40 mg PO BEDTIME 06/19/24 06/19/24 digoxin 250 mcg (0.25 mg) tablet 250 mcg PO DAILY 06/19/24 06/19/24 diltiazem HCl 120 mg 120 mg PO DAILY 06/19/24 06/19/24 capsule,extended release 24 hr furosemide 80 mg tablet 80 mg PO BID PRN Edema 06/19/24 06/19/24 gabapentin 400 mg capsule 400 mg PO TID 06/19/24 06/19/24 omeprazole 20 mg capsule,delayed 20 mg PO DAILY@0630 06/19/24 06/19/24 release oxycodone 5 mg tablet 5 mg PO QID PRN Pain 06/19/24 06/19/24 potassium chloride 20 mEq 20 meq PO DAILY 06/19/24 06/19/24 tablet,extended release sennosides 8.6 mg tablet (senna) 8.6 mg PO BID PRN Constipation 06/19/24 06/19/24 spironolactone 50 mg tablet 50 mg PO DAILY 06/19/24 06/19/24 tamsulosin 0.4 mg capsule 0.4 mg PO DAILY 06/19/24 06/19/24 torsemide 20 mg tablet 20 mg PO DAILY 06/19/24 06/19/24 venlafaxine 37.5 mg 37.5 mg PO DAILY 06/19/24 06/19/24 capsule,extended release 24 hr vilazodone 20 mg tablet 20 mg PO DAILY 06/19/24 06/19/24 zolpidem 10 mg tablet 10 mg PO BEDTIME PRN Sleep 06/19/24 06/19/24 Previous Rx's ?Medication ?Instructions ?Recorded amoxicillin 875 mg-potassium 1 tab PO Q12H 14 days #0 tabs 06/22/24 clavulanate 125 mg tablet doxycycline hyclate 100 mg tablet 100 mg PO BID #28 tabs 06/22/24 Allergies Allergy/AdvReac Type Severity Reaction Status Date / Time No Known Allergies Allergy Verified 07/15/24 20:27 Review of Systems Review of Systems: Yes all other systems are reviewed and are negative [facility] Past Medical History Attestation statement: The following information was validated with the patient. Source: old records reviewed Medical History Atrial fibrillation with RVR Chest pain Atrial fibrillation with RVR Sciatica ARIAN (acute kidney injury) Atrial fibrillation with RVR Alcohol withdrawal delirium Oral thrush Metabolic acidosis with increased anion gap and accumulation of organic acids Alcohol withdrawal Heart failure with left ventricular ejection fraction greater than or equal to 50 percent Incarcerated incisional hernia Atrial fibrillation with RVR Alcohol dependence Alcohol intoxication Thoracic aortic aneurysm Chronic atrial fibrillation Toenail deformity Dyslipidemia Anemia History of alcohol abuse Morbid obesity Insomnia Depression Pulmonary embolism Obesity Surgical History History of incisional hernia repair S/P cholecystectomy History of inguinal hernia repair Hx of gastric bypass Family History Family History Mother No problems noted. Father No problems noted. Family/Other Substance use disorder Social History Social History Household Members: None Household Members Other:: lives with mother Housing: Apartment Do you presently have visiting nurse or other home services: No Unable to assess alcohol history related to: Unable to respond Alcohol intake: former Year quit: 2020 Comment: pt refusing alarms Patient Tobacco Use Status: Never used Tobacco Smoked in Last 30 Days: No e-Cigarette/Vaping Use: Never Used Second Hand Smoke Exposure: No Use of substances other than those prescribed or required for medical reasons: No Substance Use Type: Other Advance Directives: Yes Advance Directives on File: Yes Advance Directives Date on File: 03/13/21 Do you have a plan to hurt others: No Plan service: No Current occupational status: retired Physical Exam ED Vital Signs: Vital Signs - 24 hr 07/15/24 20:18 07/15/24 21:53 Temperature 97 F 97.8 F Pulse Rate 70 76 Respiratory Rate 18 20 Blood Pressure 103/70 121/83 Pulse Oximetry 96 98 Oxygen Delivery Method Room Air Room Air BMI result Body Mass Index 40.5 Appearance: Alert.?Oriented to person, place and time. No acute distress.?Normal affect. Eyes: Pupils equal, round and reactive to light.? ENT: Pharynx normal.?? Neck: Normal inspection.? Neck supple.?? CVS: Heart sounds normal. Normal heart rate and rhythm.? Pulses normal.?? Respiratory: No respiratory distress.? Lung sounds clear to auscultation bilaterally?? Abdomen: Soft with diffuse left-sided abdominal pain/tenderness upon palpation. No CVAT. Normoactive bowel sounds. No pulsatile mass.?? Skin: Skin warm and dry.? Normal skin color.? Extremities: Right lower extremity with erythema and warmth from ankle to mid calf, overlying what appears to be a chronic stasis dermatitis, scabbed lesions. 2+ DP/PT pulse bilaterally. Neuro: Moves all extremities spontaneously. Sensation intact bilaterally. No focal neuro deficits. Ambulates with normal steady gait. Medications Administered Discontinued Medications Generic Name Dose Route Start Last Admin Trade Name Freq PRN Reason Stop Dose Admin Sodium Chloride 1,000 mls @ 999 mls/hr 07/15/24 23:45 07/16/24 00:12 Ns IV 07/16/24 00:45 999 mls/hr .Q1H1M MARILEE Administration Ondansetron HCl 4 mg 07/15/24 23:34 07/16/24 00:11 Ondansetron Hcl 4 Mg/2 Ml Vial IVPUSH 07/15/24 23:35 4 mg ONCE ONE Administration Oxycodone HCl 5 mg 07/15/24 23:34 07/16/24 00:11 Oxycodone Hcl Immed Release 5 Mg Tablet PO 07/15/24 23:35 5 mg ONCE ONE Administration Medical Decision Making Medical Decision Making MDM Narrative: Patient is a 64-year-old male with past medical history of paroxysmal atrial fibrillation on Eliquis, heart failure with preserved ejection fraction, history of pulmonary embolism, hypertension, hyperlipidemia, chronic back pain on chronic opioids, alcohol use disorder, anxiety, depression, 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 who presents to the emergency department for evaluation expressing concern for withdrawal from his oxycodone, vomiting and not tolerating oral intake, as well as cellulitis to the right lower extremity as per HPI. Overall he is well-appearing, nontoxic, afebrile. On evaluation in the right lower extremities neurovascularly intact distally, he does appear to have reoccurrence of the cellulitis he is not currently on antibiotics, in comparison to his prior visit to the ED in June, the cellulitis is not as extensive. There is no calf tenderness upon palpation, states he has been compliant with his Eliquis, low suspicion for DVT. He would benefit from a course of antibiotics. Regarding his vomiting and for p.o. intake tolerance, I suspect this may be secondary to his withdrawal from opioids, however he is notably tender in the epigastric region as well as the left upper quadrant, Will obtain CBC to evaluate for leukocytosis/ anemia, CMP and lipase to evaluate for abnormal electrolytes /abnormal renal function/ abnormal hepatic/biliary function, CT of the abdomen and pelvis and Urinalysis. Patient to trial ondansetron for nausea, he will be provided with a dose of oxycodone. I discussed with him at length that he will need to establish care with a primary care doctor to continue receiving his medications, we additionally reviewed consult with pain management clinic/addiction medicine as he may unfortunately have a wait time to get in for new PCP. He is ambulatory with a steady gait in the department. Anticipating [employer] system downtime this evening, remainder of documentation/notes to be in paper record Differential Diagnosis Differential Diagnoses: The differential diagnosis associated with the presentation includes (See narrative above) Admission/Observation Consideration of admission/observation: Escalation of care including admission/observation considered (See narrative above) Lab Data MDM Lab Attestation statement: I reviewed the patient's lab results. CBC reveals a mild leukocytosis, no anemia or thrombocytopenia. No electrolyte derangement. No ARIAN. Urinalysis without compelling evidence of infection. Remains RSV positive as was previously in June of 2024. 07/15/24 20:42 07/15/24 20:42 Labs: Lab Results 07/15/24 07/16/24 Range/Units 20:42 00:14 WBC 13.3 H (4.8-10.8) X10*3/uL RBC 4.99 (4.60-5.80) X10*6/uL Hgb 14.2 (14.0-18.0) g/dl Hct 43.5 (42.0-52.0) % MCV 87.2 (80.0-98.0) fL MCH 28.5 (27.0-33.0) pg MCHC 32.6 (31.0-36.0) g/dl RDW 16.7 H (11.0-16.0) % Plt Count 212 (160-400) X10*3/uL MPV 10.5 (9.4-12.4) fL Immature Gran % (Auto) 1.4 H (0.0-0.4) % Neut % (Auto) 85.8 H (45-73) % Lymph % (Auto) 4.6 L (20-40) % [place] % (Auto) 7.9 (2-11) % Eos % (Auto) 0.0 (0-4) % Baso % (Auto) 0.3 (0-2) % Lymph # (Auto) 0.6 L (1.2-4.9) X10*3/uL [place] # (Auto) 1.1 (0.1-1.2) X10*3/uL Eos # (Auto) 0.0 (0.0-0.4) X10*3/uL Baso # (Auto) 0.0 (0.0-0.2) X10*3/uL Abs Immat Gran (auto) 0.19 H (0.00-0.03) X10*3/uL Absolute Neuts (auto) 11.4 H (2.0-8.3) x10*3/uL Absolute Nucleated RBC 0.000 (0.0-0.012) X10*3/uL Nucleated RBC % (auto) 0.0 (0.0-0.2) /100WBC Sodium 138 (135-145) mmol/L Potassium 4.0 (3.3-5.1) mmol/L Chloride 107 (96-108) mmol/L Carbon Dioxide 25 (22-29) mmol/L Anion Gap 10 L (12-20) BUN 12 (9-16) mg/dL Creatinine 0.80 (0.5-1.4) mg/dL Estim Creat Clear Calc 129.4 Estimated GFR > 60 Random Glucose 85 (60-115) mg/dL Calcium 9.0 D (8.4-10.2) mg/dL Total Bilirubin 0.8 (0.0-1.0) mg/dL AST 39 H (5-37) U/L ALT 42 H (0-40) U/L Alkaline Phosphatase 101 (39-117) U/L Total Protein 7.3 (6.5-8.0) g/dL Albumin 3.8 (3.5-5.0) g/dL Urine Color Dark Yellow Urine Appearance Clear Urine pH 5.5 (5.0-9.0) Ur Specific [place] 1.025 (1.005-1.025) Urine Protein 30 (1+) H (Neg-Trace) mg/dL Urine Glucose (UA) Negative (Negative) mg/dL Urine Ketones 80 (Negative) mg/dL Urine Blood Negative (Negative) Urine Nitrite Negative (Negative) Ur Leukocyte Esterase Negative (Negative) Urine RBC 0-2 (0-2) /HPF Urine WBC 0-5 (0-5) /HPF Ur Squamous Epith Cells 0-2 (0-2) /HPF Urine Bacteria None Seen (None Seen) Hyaline Casts 0-2 (0-2) /LPF Ethyl Alcohol < 10 mg/dL Influenza Type A (PCR) NEGATIVE (Negative) Influenza Type B (PCR) NEGATIVE (Negative) RSV RNA Qual (PCR) POSITIVE A (Negative) SARS-CoV-2 RNA (RT-PCR) NEGATIVE (Negative) Radiology Impression Discussion of test interpretation with radiology: I have reviewed the radiologist's reading. Radiologist Impression: CT abdomen and pelvis with contrast Comparison: None Findings: Respiratory motion artifact degrades the images limiting interpretation. The lung bases are clear. Gallbladder is surgically absent. No focal hepatic lesion identified. Pancreas, spleen and adrenal glands are within normal limits. Kidneys enhance symmetrically and are grossly non hydronephrotic. No bowel obstruction, pneumoperitoneum, or pneumatosis. Small hiatal hernia with postsurgical changes in the proximal stomach, likely gastrojejunostomy. Mild diastatic rectus abdominis musculature results in a wide neck ventral abdominal wall hernia. The appendix is not well visualized. Scattered sigmoid diverticula are present without definite CT evidence of diverticulitis. No acute fracture. IMPRESSION: Unremarkable motion limited CT abdomen and pelvis as above. External Record Review External record reviewed: Outpatient record Chronic Conditions Patient?s care impacted by: Other (See narrative above) Discharge Plan Discharge Clinical Impression: Cellulitis of right leg, Opioid dependence Patient Disposition: Home, Self-Care Prescriptions: No Action omeprazole 20 mg Capsule,Delayed Release(Dr/Ec) 20 mg PO DAILY@0630 diltiazem HCl 120 mg Capsule,Extended Release 24hr 120 mg PO DAILY zolpidem 10 mg Tablet 10 mg PO BEDTIME PRN (Reason: Sleep) oxycodone 5 mg Tablet 5 mg PO QID PRN (Reason: Pain) atorvastatin 40 mg Tablet 40 mg PO BEDTIME sennosides [senna] 8.6 mg Tablet 8.6 mg PO BID PRN (Reason: Constipation) venlafaxine 37.5 mg Capsule,Extended Release 24hr 37.5 mg PO DAILY acetaminophen 325 mg Tablet 325 mg PO QID PRN (Reason: Pain) torsemide 20 mg Tablet 20 mg PO DAILY gabapentin 400 mg Capsule 400 mg PO TID allopurinol 100 mg Tablet 100 mg PO DAILY digoxin 250 mcg (0.25 mg) Tablet 250 mcg PO DAILY tamsulosin 0.4 mg Capsule 0.4 mg PO DAILY furosemide 80 mg Tablet 80 mg PO BID PRN (Reason: Edema) albuterol sulfate [Ventolin HFA] 90 mcg/actuation Hfa Aerosol Inhaler 2 puff INHALATION Q6H PRN (Reason: Shortness Of Breath Or Wheezing) spironolactone 50 mg Tablet 50 mg PO DAILY vilazodone 20 mg Tablet 20 mg PO DAILY Rx Instructions: must administer with a meal/food Eliquis 2.5 mg Tablet 2.5 mg PO BID potassium chloride 20 mEq Tablet Extended Release 20 meq PO DAILY doxycycline hyclate 100 mg tablet 100 mg PO BID Qty: 28 0RF amoxicillin-pot clavulanate 875-125 mg tablet 1 tab PO Q12H 14 Days Qty: 0 0RF Discharge Date/Time: 07/16/24 04:48 Print Language: Unable To Collect
[2024-07-16] MEDS: oxyCODONE HCl Immed Release 5 MG TABLET PO (00:11)
[2024-07-16] MEDS: ondansetron HCL 4 MG/2 ML VIAL IVPUSH (00:11)
[2024-07-16] MEDS: 0.9 % Sodium Chloride 1,000 ML 999 ML IV (00:12)
[2024-07-16 00:32] LABS: Appearance Urine Clear; Color Urine Dark Yellow; Glucose Urine UA Negative (Negative); Leukocyte Esterase Urine Negative (Negative); Nitrite Urine Negative (Negative); PH 5.5 (5.0-9.0); Specific Gravity - Urine 1.025 (1.005-1.025); UMIC TRIGGER UACC YES; Urine Blood Negative (Negative); Urine Ketones 80 mg/dL (Negative); Urine Protein 30 (1+) mg/dL (Neg-Trace)
[2024-07-16 00:39] LABS: Bacteria Urine None Seen (None Seen); Hyaline Casts Urine 0-2 /LPF (0-2); RBC Urine 0-2 /HPF (0-2); Squamous Epithelial Cell Urine 0-2 /HPF (0-2); WBC Urine 0-5 /HPF (0-5)
== END 2024-07-16 04:48 | disposition home or self-care (01) ==
PROVIDERS: Nurse Practitioner Family; Emergency Provider Emergency Medicine
DX: L03.115 Cellulitis of right lower limb (principal); F11.20 Opioid dependence, uncomplicated; R11.2 Nausea with vomiting, unspecified; R10.2 Pelvic and perineal pain; Z51.81 Encounter for therapeutic drug level monitoring; Z79.899 Other long term (current) drug therapy; Z03.818 Encounter for observation for suspected exposure to other biological agents ruled out
CPT/HCPCS: 0241U; 74177; 80053; 80307; 81001; 85025; 96374; 99284; J2405

== ENCOUNTER → 2024-07-16 00:01 | Outpatient (BNV) | payer MEDICARE, MEDICAID, SELFPAY | PROVIDERS: Emergency Provider Emergency Medicine; Visit Provider General Practice | DX: R10.9 Unspecified abdominal pain (principal) | CPT/HCPCS: 74177 ==

== ENCOUNTER 2024-07-21 13:54 | Inpatient (IN) | payer MEDICARE, MEDICAID, SELFPAY ==
[2024-07-21 14:02] VITALS: BP 113/54; BP 140/78; PULSE 101; PULSE 87; RESP 20; TEMP 37; O2SAT 93; O2SAT 96; BMI 41.6
--- NOTE | 2024-07-21 14:12 | ED_ITS ---
HPI - General Adult General Chief complaint: General Medical Stated complaint: ? R LEG INFECTION PER EMS Time Seen by Provider: 07/21/24 14:06 Source: patient Mode of arrival: ambulatory Limitations: no limitations History of Present Illness HPI narrative: This is a 64 years old male presented to the emergency department complaining of redness in the right leg. He has a history of cellulitis in the past that was treated in the past with the IV antibiotic. Denies any fever or chills. He was seen in the emergency room on 07/15 diagnosed with cellulitis sent home on doxycycline Augmentin, he says he has been also vomiting Onset (ago): day(s) Location: lower extremity (Right lower extremity) Radiation: non-radiation Severity: moderate Quality: burning Pain Consistency: constant Associated symptoms: nausea/vomiting Related Data Home Medications ?Medication ?Instructions ?Recorded ?Confirmed acetaminophen 325 mg tablet 325 mg PO QID PRN Pain 06/19/24 06/19/24 albuterol sulfate 90 mcg/actuation 2 puff inhalation Q6H PRN 06/19/24 06/19/24 aerosol inhaler (Ventolin HFA) Shortness Of Breath Or Wheezing allopurinol 100 mg tablet 100 mg PO DAILY 06/19/24 06/19/24 apixaban 2.5 mg tablet (Eliquis) 2.5 mg PO BID 06/19/24 06/19/24 atorvastatin 40 mg tablet 40 mg PO BEDTIME 06/19/24 06/19/24 digoxin 250 mcg (0.25 mg) tablet 250 mcg PO DAILY 06/19/24 06/19/24 diltiazem HCl 120 mg 120 mg PO DAILY 06/19/24 06/19/24 capsule,extended release 24 hr furosemide 80 mg tablet 80 mg PO BID PRN Edema 06/19/24 06/19/24 gabapentin 400 mg capsule 400 mg PO TID 06/19/24 06/19/24 omeprazole 20 mg capsule,delayed 20 mg PO DAILY@0630 06/19/24 06/19/24 release oxycodone 5 mg tablet 5 mg PO QID PRN Pain 06/19/24 06/19/24 potassium chloride 20 mEq 20 meq PO DAILY 06/19/24 06/19/24 tablet,extended release sennosides 8.6 mg tablet (senna) 8.6 mg PO BID PRN Constipation 06/19/24 06/19/24 spironolactone 50 mg tablet 50 mg PO DAILY 06/19/24 06/19/24 tamsulosin 0.4 mg capsule 0.4 mg PO DAILY 06/19/24 06/19/24 torsemide 20 mg tablet 20 mg PO DAILY 06/19/24 06/19/24 venlafaxine 37.5 mg 37.5 mg PO DAILY 06/19/24 06/19/24 capsule,extended release 24 hr vilazodone 20 mg tablet 20 mg PO DAILY 06/19/24 06/19/24 zolpidem 10 mg tablet 10 mg PO BEDTIME PRN Sleep 06/19/24 06/19/24 Previous Rx's ?Medication ?Instructions ?Recorded amoxicillin 875 mg-potassium 1 tab PO Q12H 14 days #0 tabs 06/22/24 clavulanate 125 mg tablet doxycycline hyclate 100 mg tablet 100 mg PO BID #28 tabs 06/22/24 Allergies Allergy/AdvReac Type Severity Reaction Status Date / Time No Known Allergies Allergy Verified 07/21/24 14:07 Review of Systems 2 ENT: Reports system reviewed and no additional complaints, except as documented Musculoskeletal: Musculoskeletal: Reports no additional musculoskeletal complaints Integumentary/Breasts: Skin/Breast: Reports as per [facility] Past Medical History Medical History Atrial fibrillation with RVR Chest pain Atrial fibrillation with RVR Sciatica ARIAN (acute kidney injury) Atrial fibrillation with RVR Alcohol withdrawal delirium Oral thrush Metabolic acidosis with increased anion gap and accumulation of organic acids Alcohol withdrawal Heart failure with left ventricular ejection fraction greater than or equal to 50 percent Incarcerated incisional hernia Atrial fibrillation with RVR Alcohol dependence Alcohol intoxication Thoracic aortic aneurysm Chronic atrial fibrillation Toenail deformity Dyslipidemia Anemia History of alcohol abuse Morbid obesity Insomnia Depression Pulmonary embolism Obesity Surgical History History of incisional hernia repair S/P cholecystectomy History of inguinal hernia repair Hx of gastric bypass Family History Family History Mother No problems noted. Father No problems noted. Family/Other Substance use disorder Social History Social History Household Members: None Household Members Other:: lives with mother Housing: Apartment Do you presently have visiting nurse or other home services: No Unable to assess alcohol history related to: Unable to respond Alcohol intake: former Year quit: 2019 Comment: pt refusing alarms Patient Tobacco Use Status: Never used Tobacco Smoked in Last 30 Days: No e-Cigarette/Vaping Use: Never Used Second Hand Smoke Exposure: No Use of substances other than those prescribed or required for medical reasons: No Substance Use Type: Other Advance Directives: Yes Advance Directives on File: Yes Advance Directives Date on File: 03/13/21 service: No Current occupational status: retired Physical Exam ED Vital Signs: Vital Signs - 24 hr 07/21/24 14:02 07/21/24 15:16 Temperature 98.6 F 98.4 F Pulse Rate 87 91 Respiratory Rate 20 18 Blood Pressure 113/54 L 123/76 Pulse Oximetry 93 96 Oxygen Delivery Method Room Air Room Air BMI result Body Mass Index 41.6 Patient is not acute distress Const General: cooperative and comfortable Nutritional Appearance: well nourished Orientation/consciousness: patient oriented x3 Limitations: no limitations HENMT Head: Yes normal to inspection General nose exam: Normal external nose present Face and sinus: Yes normal facial exam Neck Neck: Yes normal visual inspection Chest Chest palpation & inspection: normal inspection of the chest Resp Effort & Inspection: normal respiratory effort Auscultation: clear to auscultation bilaterally Cardio Palpation: normal PMI Rate: regular rate Rhythm: regular rhythm GI Inspection: Yes normal to inspection Palpation (GI): Soft to palpation and not firm Neuro General: patient oriented x3 Extrem Other: Diffuse redness in the right lower extremity see picture he has good pedal pulses Course Reevaluation(s) Reevaluation #1: Patient presented with a cellulitis of the right leg failed outpatient treatment anticipate admission Time: 15:45 Medications Administered Generic Name Dose Route Start Last Admin Trade Name Freq PRN Reason Stop Dose Admin Vancomycin HCl 2,000 mg in 500 mls @ 250 mls/hr 07/21/24 14:45 07/21/24 15:10 Vancomycin/Ns IV 07/21/24 16:44 250 mls/hr ONCE ONE Administration Discontinued Medications Generic Name Dose Route Start Last Admin Trade Name Freq PRN Reason Stop Dose Admin Oxycodone HCl 5 mg 07/21/24 14:49 07/21/24 15:09 Oxycodone Hcl Immed Release 5 Mg Tablet PO 07/21/24 14:50 5 mg ONCE ONE Administration Medical Decision Making Medical Decision Making [facility] Narrative: Patient is here with cellulitis of the right leg we will check labs administer IV antibiotic Differential Diagnosis Differential Diagnoses: The differential diagnosis associated with the presentation includes Cellulitis, I do not think he as arterial occlusion he has excellent pulses in the foot. Admission/Observation Consideration of admission/observation: Escalation of care including admission/observation considered Consult Healthcare Provider Management of the patient was discussed with: Hospitalist Lab Data [facility] Lab Attestation statement: I reviewed the patient's lab results. 07/21/24 14:36 07/21/24 14:36 Labs: Lab Results 07/21/24 Range/Units 14:36 WBC 8.6 (4.8-10.8) X10*3/uL RBC 4.52 L (4.60-5.80) X10*6/uL Hgb 12.6 L (14.0-18.0) g/dl Hct 40.1 L (42.0-52.0) % MCV 88.7 (80.0-98.0) fL MCH 27.9 (27.0-33.0) pg MCHC 31.4 (31.0-36.0) g/dl RDW 17.2 H (11.0-16.0) % Plt Count 202 (160-400) X10*3/uL MPV 11.1 (9.4-12.4) fL Immature Gran % (Auto) 0.7 H (0.0-0.4) % Neut % (Auto) 80.9 H (45-73) % Lymph % (Auto) 8.8 L (20-40) % [place] % (Auto) 8.9 (2-11) % Eos % (Auto) 0.2 (0-4) % Baso % (Auto) 0.5 (0-2) % Lymph # (Auto) 0.8 L (1.2-4.9) X10*3/uL [place] # (Auto) 0.8 (0.1-1.2) X10*3/uL Eos # (Auto) 0.0 (0.0-0.4) X10*3/uL Baso # (Auto) 0.0 (0.0-0.2) X10*3/uL Abs Immat Gran (auto) 0.06 H (0.00-0.03) X10*3/uL Absolute Neuts (auto) 7.0 (2.0-8.3) x10*3/uL Absolute Nucleated RBC 0.000 (0.0-0.012) X10*3/uL Nucleated RBC % (auto) 0.0 (0.0-0.2) /100WBC ESR 28 H (0-15) MM/HR Sodium 138 (135-145) mmol/L Potassium 4.2 (3.3-5.1) mmol/L Chloride 106 (96-108) mmol/L Carbon Dioxide 25 (22-29) mmol/L Anion Gap 11 L (12-20) BUN 12 (9-16) mg/dL Creatinine 0.78 (0.5-1.4) mg/dL Estim Creat Clear Calc 134.7 Estimated GFR > 60 Random Glucose 76 (60-115) mg/dL Calcium 8.8 (8.4-10.2) mg/dL Total Bilirubin 0.3 (0.0-1.0) mg/dL AST 28 (5-37) U/L ALT 37 (0-40) U/L C-Reactive Protein 0.67 H (< or = 0.50) mg/dL Total Protein 6.8 (6.5-8.0) g/dL Albumin 3.4 L (3.5-5.0) g/dL External Record Review External record reviewed: Inpatient record Prescription Management I considered prescription management with: Antibiotic Discharge Plan Discharge Clinical Impression: Cellulitis of leg, right Patient Disposition: Admitted As Inpatient Print Language: Unable To Collect
[2024-07-21 14:42] LABS: MANUAL DIFF FLAG NO
[2024-07-21 14:44] LABS: Basophils Percent Auto 0.5 % (0-2); Eosinophils Percent Auto 0.2 % (0-4); Hematocrit 40.1 % (42.0-52.0); Hemoglobin 12.6 g/dl (14.0-18.0); Imm Gran Abs Auto 0.06 X10*3/uL (0.00-0.03); Imm Gran Pct Auto 0.7 % (0.0-0.4); Lymphocytes Absolute Auto 0.8 X10*3/uL (1.2-4.9); Lymphocytes Percent Auto 8.8 % (20-40); Mean Corpuscular HGB Conc 31.4 g/dl (31.0-36.0); Mean Corpuscular Hemoglobin 27.9 pg (27.0-33.0); Mean Corpuscular Volume 88.7 fL (80.0-98.0); Mean Platelet Volume 11.1 fL (9.4-12.4); Monocytes Absolute Auto 0.8 X10*3/uL (0.1-1.2); Monocytes Percent Auto 8.9 % (2-11); Neutrophils Percent Auto 80.9 % (45-73); Platelet Count 202 X10*3/uL (160-400); Red Blood Count 4.52 X10*6/uL (4.60-5.80); Red Cell Distribution Width 17.2 % (11.0-16.0); White Blood Count 8.6 X10*3/uL (4.8-10.8)
[2024-07-21] MEDS: oxyCODONE HCl Immed Release 5 MG TABLET PO ×2 (15:09→18:16)
[2024-07-21] MEDS: vancomycin/NS 2,000 MG/500 ML PLAST..BAG 250 MG IV (15:10)
[2024-07-21 15:12] LABS: Alanine Aminotransferase 37 U/L (0-40); Albumin Level 3.4 g/dL (3.5-5.0); Anion Gap 11 (12-20); Aspartate Amino Transferase 28 U/L (5-37); Bilirubin Total 0.3 mg/dL (0.0-1.0); Blood Urea Nitrogen 12 mg/dL (9-16); C Reactive Protein 0.67 mg/dL (< or = 0.50); Calcium 8.8 mg/dL (8.4-10.2); Carbon Dioxide 25 mmol/L (22-29); Chloride 106 mmol/L (96-108); Creatinine Clr Calc Pharmacy 134.7; Estimated Glomerular Filt Rate > 60; Glucose Random 76 mg/dL (60-115); Potassium 4.2 mmol/L (3.3-5.1); Sodium 138 mmol/L (135-145); Total Protein 6.8 g/dL (6.5-8.0)
[2024-07-21 15:16] VITALS: BP 123/76; PULSE 91; RESP 18; TEMP 36.9; O2SAT 96
[2024-07-21 15:21] LABS: Erythrocyte Sedimentation Rate 28 MM/HR (0-15)
--- NOTE | 2024-07-21 15:54 | PM.IMHP ---
History of Present Illness Date of Service: 07/21/24 Chief Complaint: rle erythema 64M PMH chronic venous stasis right greater than left, paroxysmal AFib on Eliquis, chronic diastolic CHF, history of pulmonary embolism on Eliquis, hypertension, hyperlipidemia, chronic back pain with opiate dependence, mood disorder, morbid obese presented with right lower extremity erythema. Patient has had multiple episodes of admissions for right lower extremity cellulitis, most recently June 2024 treated with Augmentin and doxycycline on discharge. Reports improvement, then came back to the ED 07/15/24 and can prescribed Augmentin and doxycycline at reports this time not improving so came back to the ED. Denies any fever or chills. Review of Systems Review of Systems: Yes all other systems are reviewed and are negative REPLACED BY [facility] Medical History Atrial fibrillation with RVR Chest pain Atrial fibrillation with RVR Sciatica ARIAN (acute kidney injury) Atrial fibrillation with RVR Alcohol withdrawal delirium Oral thrush Metabolic acidosis with increased anion gap and accumulation of organic acids Alcohol withdrawal Heart failure with left ventricular ejection fraction greater than or equal to 50 percent Incarcerated incisional hernia Atrial fibrillation with RVR Alcohol dependence Alcohol intoxication Thoracic aortic aneurysm Chronic atrial fibrillation Toenail deformity Dyslipidemia Anemia History of alcohol abuse Morbid obesity Insomnia Depression Pulmonary embolism Obesity Family History Mother No problems noted. Father No problems noted. Family/Other Substance use disorder Surgical History History of incisional hernia repair S/P cholecystectomy History of inguinal hernia repair Hx of gastric bypass Social History Household Members: None Household Members Other:: lives with mother Housing: Apartment Do you presently have visiting nurse or other home services: No Unable to assess alcohol history related to: Unable to respond Alcohol intake: former Year quit: 2019 Comment: pt refusing alarms Patient Tobacco Use Status: Never used Tobacco Smoked in Last 30 Days: No e-Cigarette/Vaping Use: Never Used Second Hand Smoke Exposure: No Use of substances other than those prescribed or required for medical reasons: No Substance Use Type: Other Advance Directives: Yes Advance Directives on File: Yes Advance Directives Date on File: 03/13/21 service: No Current occupational status: retired Meds Allergies Allergy/AdvReac Type Severity Reaction Status Date / Time No Known Allergies Allergy Verified 07/21/24 14:07 Active Medications: Current Medications Vancomycin HCl (Vancomycin/Ns) 2,000 mg in 500 mls @ 250 mls/hr IV ONCE ONE Stop: 07/21/24 16:44 Last Admin: 07/21/24 15:10 Dose: 250 mls/hr Home Medications ?Medication ?Instructions ?Recorded ?Confirmed ?Last Taken ?Type acetaminophen 325 mg tablet 325 mg PO QID PRN Pain 06/19/24 06/19/24 Unknown History albuterol sulfate 90 mcg/actuation 2 puff inhalation Q6H PRN 06/19/24 06/19/24 Unknown History aerosol inhaler (Ventolin HFA) Shortness Of Breath Or Wheezing allopurinol 100 mg tablet 100 mg PO DAILY 06/19/24 06/19/24 Unknown History apixaban 2.5 mg tablet (Eliquis) 2.5 mg PO BID 06/19/24 06/19/24 Unknown History atorvastatin 40 mg tablet 40 mg PO BEDTIME 06/19/24 06/19/24 Unknown History digoxin 250 mcg (0.25 mg) tablet 250 mcg PO DAILY 06/19/24 06/19/24 Unknown History diltiazem HCl 120 mg 120 mg PO DAILY 06/19/24 06/19/24 Unknown History capsule,extended release 24 hr furosemide 80 mg tablet 80 mg PO BID PRN Edema 06/19/24 06/19/24 Unknown History gabapentin 400 mg capsule 400 mg PO TID 06/19/24 06/19/24 Unknown History omeprazole 20 mg capsule,delayed 20 mg PO DAILY@0630 06/19/24 06/19/24 Unknown History release oxycodone 5 mg tablet 5 mg PO QID PRN Pain 06/19/24 06/19/24 Unknown History potassium chloride 20 mEq 20 meq PO DAILY 06/19/24 06/19/24 Unknown History tablet,extended release sennosides 8.6 mg tablet (senna) 8.6 mg PO BID PRN Constipation 06/19/24 06/19/24 Unknown History spironolactone 50 mg tablet 50 mg PO DAILY 06/19/24 06/19/24 Unknown History tamsulosin 0.4 mg capsule 0.4 mg PO DAILY 06/19/24 06/19/24 Unknown History torsemide 20 mg tablet 20 mg PO DAILY 06/19/24 06/19/24 Unknown History venlafaxine 37.5 mg 37.5 mg PO DAILY 06/19/24 06/19/24 Unknown History capsule,extended release 24 hr vilazodone 20 mg tablet 20 mg PO DAILY 06/19/24 06/19/24 Unknown History zolpidem 10 mg tablet 10 mg PO BEDTIME PRN Sleep 06/19/24 06/19/24 Unknown History Physical Exam Vital Signs and Narrative: Vital Signs: Last Vital Signs Temp 98.4 F 07/21/24 15:16 Pulse 91 07/21/24 15:16 Resp 18 07/21/24 15:16 BP 123/76 07/21/24 15:16 Pulse Ox 96 07/21/24 15:16 O2 Del Method Room Air 07/21/24 15:16 BMI result Body Mass Index 41.6 General: AO X 3, no acute distress Resp: CTA bilateral, no accessory muscles used CVS: S1,S2,RRR GI: soft, non tender, non distended Neuro: motor grossly intact, alert Psych: appropriate affect, appropriate insight Results Labs 07/21/24 14:36 07/21/24 14:36 Labs: Laboratory Results - last 24 hr 07/21/24 14:36 MCV 88.7 MCH 27.9 MCHC 31.4 RDW 17.2 H Plt Count 202 MPV 11.1 Immature Gran % (Auto) 0.7 H Neut % (Auto) 80.9 H Lymph % (Auto) 8.8 L [place] % (Auto) 8.9 Eos % (Auto) 0.2 Baso % (Auto) 0.5 Lymph # (Auto) 0.8 L [place] # (Auto) 0.8 Eos # (Auto) 0.0 Baso # (Auto) 0.0 Abs Immat Gran (auto) 0.06 H Absolute Neuts (auto) 7.0 Absolute Nucleated RBC 0.000 Nucleated RBC % (auto) 0.0 ESR 28 H Anion Gap 11 L Estim Creat Clear Calc 134.7 Estimated GFR > 60 Random Glucose 76 Calcium 8.8 Total Bilirubin 0.3 AST 28 ALT 37 C-Reactive Protein 0.67 H Total Protein 6.8 Albumin 3.4 L Assessment and Plan (1) Morbid obesity: Status: Acute Plan 64M PMH chronic venous stasis right greater than left, paroxysmal AFib on Eliquis, chronic diastolic CHF, history of pulmonary embolism on Eliquis, hypertension, hyperlipidemia, chronic back pain with opiate dependence, mood disorder, morbid obese presented with right lower extremity erythema Acute recurrent right lower extremity cellulitis in the background of chronic venous stasis vanc iv local Steroids and local compression will diurese with iv lasix Chronic diastolic CHF Continue Aldactone and lasix Paroxysmal AFib diltiazem, Eliquis Morbid obesity Weight loss Chronic back pain Continue oxycodone BPH Flomax Gout Allopurinol History of PE on Eliquis Full Code patient with possible mrsa cellulitis about 50% of limb, needing iv abx, therefore expected to require atleast 2 midnights in [facility] Stroke Does the patient have a stroke diagnosis?: No VTE Prior VTE?: Yes VTE Risk Level:: Medical - moderate - high VTE Device Contraindication: Treatment Not Indicated VTE Drug Contraindication: N/A - Med Ordered
[2024-07-21] MEDS: 0.9 % Sodium Chloride Flush 3 ML SYRINGE IVFLUSH ×2 (16:12→21:46)
[2024-07-21 16:25] LABS: Appearance Urine Clear; Color Urine Yellow; Glucose Urine UA Negative (Negative); Leukocyte Esterase Urine Trace (Negative); Nitrite Urine Negative (Negative); PH 8.5 (5.0-9.0); Specific Gravity - Urine 1.015 (1.005-1.025); UMIC TRIGGER UACC YES; Urine Blood Negative (Negative); Urine Ketones Negative (Negative); Urine Protein Negative (Neg-Trace)
[2024-07-21 16:30] LABS: Bacteria Urine None Seen (None Seen); Hyaline Casts Urine 0-2 /LPF (0-2); RBC Urine 0-2 /HPF (0-2); Squamous Epithelial Cell Urine 0-2 /HPF (0-2); WBC Urine 0-5 /HPF (0-5)
[2024-07-21 17:32] LABS: Alkaline Phosphatase 85 U/L (39-117)
--- OUTSIDE RECORDS SUMMARY | 2024-07-21 17:32 | XMS_ITS | Encounter Summary ---
Author Organization [facility] [employer] [facility] Address [address] [place] [address] [address] [place] [address] Care Team Providers Care Yam Curer Name Role Phone Rick Arcos MD Primary Care Prov ider Reason for Visit * Reason Comments Med Refill Encounter Details Date Type Department Care Team ([facility] Contact Info) Description 07/20/2024 Refill [facility] [address] [place] [address] Rick Arcos MD [address] [place] [address] Social History Tobacco Use Types Packs/Day Years [...] 9:45 AM EDT Office Visit [facility] [address] [place] [address] Rick Arcos MD [address] [place] [address] documented as of this encounter Visit Diagnoses Not on filedocumented in this encounter Care Teams Yam Curer Relationship Specialty Start Date End Date Rick Arcos MD [address] [place] [id number] PCP - General Internal Medicine 05/28/24 Rodrick Arguello 06/09/24 documented as of this encounter
--- OUTSIDE RECORDS SUMMARY | 2024-07-21 17:32 | XMS_ITS | Encounter Summary ---
Author Organization [employer] Address [address] [facility] [address] [place] [address] Care Team Providers Care Diamond Sawer Name Role Phone Rick Arcos MD Primary Care Prov ider Reason for Visit * Reason Onset Date Comments Verbal Order 07/17/2024 Encounter Details Date Type Department Care Team ([facility] st Contact Info) Description 07/17/[address] [facility] [address] [place] [address] Rick Arcos MD [address] [place], [place] [phone] Verbal Order Social History Tobacco Use Types [...] Telephone Encounter - Chapis Arias RN - 07/20/2024 9:33 AM EDT TC to [facility]. Verbal orders for SW given to [facility]. [facility] informed that pt is non-compliantwith his medications. Author advised if [facility] needs additional orders to contact office. * Telephone Encounter - Danyelle Lackey - 07/17/2024 3:03 PM EDT Tc from [facility] needing a verbal order for social service coordinator. [phone] documented in this encounter Plan of Treatment Upcoming Encounters Date Type Department Care Team (Late st Contact Info) Description 07/28/2024 9:45 AM EDT Office Visit [facility] [address] [place] [address] Rick Arcos MD [address] [place] [address] documented as of this encounter Visit Diagnoses Not on filedocumented in this encounter Care Teams Diamond Sawer Relationship Specialty Start Date End Date Rick Arcos MD [address] [place] [address] PCP - General Internal Medicine 05/28/24 Careherberth- Jos 06/09/24 documented as of this encounter
--- OUTSIDE RECORDS SUMMARY | 2024-07-21 17:32 | XMS_ITS | Encounter Summary ---
Author Organization [employer] Address [address] [place] [address] [place] [address] Care Team Providers Care Bus Mechanic Name Role Phone Rick Arcos MD Primary Care Prov ider Reason for Visit * Reason Onset Date Comments Med Refill 07/14/2024 Encounter Details Date Type Department Care Team ([facility] st Contact Info) Description 07/14/2024 Telephone [facility] [address] [place], [place] [phone] Rick Arcos MD [address] [place] [address] Med Refill Social History Tobacco Use Types [...] 20 MG tablet To be sent to: [facility] documented in this encounter Plan of Treatment Upcoming Encounters Date Type Department Care Team (Late st Contact Info) Description 07/28/2024 9:45 AM EDT Office Visit [facility]ED[facility] [address] [place] [address] Rick Arcos MD [address] [place] [address] documented as of this encounter Visit Diagnoses Not on filedocumented in this encounter Care Teams Bus Mechanic Relationship Specialty Start Date End Date Rick Arcos MD [address] [place] [address] PCP - General Internal Medicine 05/28/24 Rodrick Arguello 06/09/24 documented as of this encounter
--- OUTSIDE RECORDS SUMMARY | 2024-07-21 17:32 | XMS_ITS | Clinical Summary ---
Author Organization [facility] Address [address] [place] [id number] Care Team Providers Care Manager Of Application Development Name Role Phone Bambi Machuca MD Primary Care Provider [phone] Social History Tobacco Use Types Packs/Day Years [...] Colorectal Cancer Screening: Sigmoidoscopy 2007 Pneumococcal Vaccine: 50+ Ye ars (1 - PCV) 2008 Influenza Vaccine (Season Ended) 2024 Hepatitis B Vaccine Aged Out No longe r eligible based on patient's age to complete this [place] [address] Medicare Medicaid [place] Care Teams Manager Of Application Development Relationship Specialty Start Date End Date Bambi Machuca MD [address] [place], [place] PCP - General Internal Medicine 04/24/22
--- OUTSIDE RECORDS SUMMARY | 2024-07-21 17:32 | XMS_ITS | Clinical Summary ---
Author Organization [facility] Address [address] [place] [address] Care Team Providers Care Concession Attendant Name Role Phone [facility] Primary Care Provider [phone] Allergies Active Allergy Reactions Criticality Noted Date [...] 2 days prior to admission. Was at [facility] prior to current presentation. Assessed by addiction [...] 2 days prior to admission. Was at [facility] prior to current presentation. Assessed by addiction [...] 2 days prior to admission. Was at [facility] prior to current presentation. Assessed by addiction [...] 2 days prior to admission. Was at [facility] prior to current presentation. Assessed by addiction [...] 2 days prior to admission. Was at [facility] prior to current presentation. Assessed by addiction psych this admission who noted patient not interested in MAT for AUD. He was monitored on CIWA which was discontinued on 02/24. - outpatient PCP and AA follow up Assessment & Plan (02/26/2024 6:00 PM EST): Patient reports drinking one quart of hard liquor daily, last drink 2 days prior to admission. Was at [facility] prior to current presentation. Assessed by addiction psych this admission who noted patient not interested in MAT for AUD. He was monitored on CIWA which was discontinued on 02/24. - outpatient PCP and AA follow up Assessment & Plan (02/25/2024 7:00 PM EST): Patient reports drinking one quart of hard liquor daily, last drink 2 days prior to admission. Was at [facility] prior to current presentation. Assessed by addiction [...] chronic venous stasis. He was hospitalized at [facility] back in July 2023 and [...] chronic venous stasis. He was hospitalized at [facility] back in July 2023 and [...] chronic venous stasis. He was hospitalized at [facility] back in July 2023 and [...] chronic venous stasis. He was hospitalized at [facility] back in July 2023 and [...] the leg swelling. He was hospitalized at [facility] back in July 2023 and [...] the leg swelling. He was hospitalized at [facility] back in July 2023 and [...] the leg swelling. He was hospitalized at [facility] back in July 2023 and [...] (03/15/2024 10:34 AM EST): Patient presented from [facility] for evaluation of right lower extremity swelling and redness. He was initiated on clindamycin at [facility] but without improvement so sent to [facility] for evaluation. L. Duplex negative for DVT. [...] (03/14/2024 5:17 PM EST): Patient presented from [facility] for evaluation of right lower extremity swelling and redness. He was initiated on clindamycin at [facility] but without improvement so sent to [facility] for evaluation. L. Duplex negative for DVT. [...] PM EST): Was initiated on clindamycin at [facility] but without improvement so sent to [facility] for evaluation. L. Duplex negative for DVT. [...] PM EST): Was initiated on clindamycin at [facility] but without improvement so sent to [facility] for evaluation. L. Duplex negative for DVT. [...] Plan (03/07/2024 1:35 PM EST): Presents from [facility] for evaluation of right lower extremity cellulitis. Was initiated on clindamycin at [facility] but without improvement so sent to [facility] for evaluation. He was sent for further [...] Plan (02/26/2024 6:00 PM EST): Presents from [facility] for evaluation of right lower extremity cellulitis. Was initiated on clindamycin at [facility] but without improvement so sent to [facility] for evaluation. He was sent for further [...] Plan (02/25/2024 7:00 PM EST): Presents from [facility] for evaluation of right lower extremity cellulitis. Was initiated on clindamycin at [facility] but without improvement so sent to [facility] for evaluation. 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
--- OUTSIDE RECORDS SUMMARY | 2024-07-21 17:32 | XMS_ITS | Encounter Summary ---
Author Organization [employer] Address [address] [place] [address] 7 [place] [address] Care Team Providers Care Inclusion Special Education Teacher Name Role Phone Rick Arcos MD Primary Care Prov ider Reason for Visit * Reason Onset Date Comments Durable Medical Equipment 07/21/2024 Encounter Details Date Type Department Care Team ([facility] st Contact Info) Description 07/21/2024 Telephone [facility] CHC MED & PEDS [address] [place], [place] [phone] Rick Arcos MD [address] [place] [address] Durable Medical Equipment Social History Tobacco Use Types Packs/Day Years [...] Telephone Encounter - Ayla Glass LPN - 07/21/2024 11:34 AM EDT Pt inpatient at [facility] Nurse called Sofia [phone] to gather more information no answer. Tc from [place] with [facility] requesting a shower chair for pt. * Telephone Encounter - Allison Whitaker - 07/21/2024 9:38 AM EDT Tc from [place] with [facility] requesting a shower chair for pt. documented in this encounter Plan of Treatment Upcoming Encounters Date Type Department Care Team (Late st Contact Info) Description 07/28/2024 9:45 AM EDT Office Visit [facility] MED & PEDS [address] [place] [address] Rick Arcos MD [address] [place] [address] documented as of this encounter Visit Diagnoses Not on filedocumented in this encounter Care Teams Inclusion Special Education Teacher Relationship Specialty Start Date End Date Rick Arcos MD [address] [place] [address] PCP - General Internal Medicine 05/28/24 Ave Jos 06/09/24 documented as of this encounter
--- OUTSIDE RECORDS SUMMARY | 2024-07-21 17:32 | XMS_ITS | Encounter Summary ---
Author Organization [employer] Address [address] [place] [address] 7t [place] [address] Care Team Providers Care On Air Personality Name Role Phone Rick Arcos MD Primary Care Prov ider Encounter Details Date Type Department Care Team (Latest Contact Info) Description 11/14/2021 Abstract [facility] CONVERSIONS Dental, Provider, DDS Social History [...] Description 07/28/2024 9:45 AM EDT Office Visit [facility] CHC MED & PEDS [address] [place] [address] Rick Arcos MD [address] [place] [address] documented as of this encounter Visit Diagnoses Not on filedocumented in this encounter Care Teams On Air Personality Relationship Specialty Start Date End Date Rick Arcos MD [address] [place] [address] PCP - General Internal Medicine 05/28/24 Rodrick Arguello 06/09/24 documented as of this encounter
--- OUTSIDE RECORDS SUMMARY | 2024-07-21 17:32 | XMS_ITS | Encounter Summary ---
Author Organization [employer] Address [address] [facility] 7t [place] [address] Care Team Providers Care Dip Tube Assembler Machine Name Role Phone Rick Arcos MD Primary Care Prov ider Reason for Visit * Reason Onset Date Comments Appointment Request 06/24/2024 Encounter Details Date Type Department Care Team ([facility] st Contact Info) Description 06/24/2024 Telephone [facility] MEDICINE [address] [place] [address] Rick Arcos MD [address] [place], [place] [phone] Appointment Request Social History Tobacco Use Types [...] Description 07/28/2024 9:45 AM EDT Office Visit [facility] CHC MED & PEDS [address] [place] [address] Rick Arcos MD [address] [place] [address] documented as of this encounter Visit Diagnoses Not on filedocumented in this encounter Care Teams Dip Tube Assembler Machine Relationship Specialty Start Date End Date Rick Arcos MD [address] [place] [address] PCP - General Internal Medicine 05/28/24 Rodrick Arguello 06/09/24 documented as of this encounter
--- OUTSIDE RECORDS SUMMARY | 2024-07-21 17:32 | XMS_ITS | Encounter Summary ---
Author Organization [employer] Address [address] [facility] 7t [place] [address] Care Team Providers Care Chimney Construction Supervisor Name Role Phone Rick Arcos MD Primary Care Prov ider Reason for Visit * Reason Onset Date Comments Appointment 08/22/2022 Encounter Details Date Type Department Care Team (Late st Contact Info) Description 08/22/2022 Telephone [facility] ADULT DENTAL [address] [place], [place] [phone] Martín Dumont DDS [address] [place], [place] [phone] Appointment Social History Tobacco Use Types Packs/Day [...] Description 07/28/2024 9:45 AM EDT Office Visit [facility] MED & PEDS [address] [place], [place] [phone] Rick Arcos MD [address] [place] [address] documented as of this encounter Visit Diagnoses Not on filedocumented in this encounter Care Teams Chimney Construction Supervisor Relationship Specialty Start Date End Date Rick Arcos MD [address] [place] [address] PCP - General Internal Medicine 05/28/24 Rodrick Arguello 06/09/24 documented as of this encounter
--- OUTSIDE RECORDS SUMMARY | 2024-07-21 17:32 | XMS_ITS | Clinical Summary ---
Author Organization [facility] Address [address] [place] [address] Care Team Providers Care Chemical Laboratory Scientist Name Role Phone Provider, Marlee MCKEE Primary [...] age to complete this topic Care Teams Chemical Laboratory Scientist Relationship Specialty Start Date End Date Marlee Lipscomb MD PCP - General 07/16/13
--- OUTSIDE RECORDS SUMMARY | 2024-07-21 17:32 | XMS_ITS | Encounter Summary ---
Author Organization [employer] Address [address] [place] [address] 7t [place] [address] Care Team Providers Care Cook Box Filler Name Role Phone Rick Arcos MD Primary Care Prov ider Reason for Visit * Reason Onset Date Comments Hospital Follow-up 04/15/2024 Encounter Details Date Type Department Care Team (Late st Contact Info) Description 04/15/2024 Telephone [facility] MEDICINE [address] [place], [place] [phone] Barrington Morataya MD [address] [place], [place] [phone] Hospital Follow-up Social History Tobacco Use Types [...] from pt requesting a HDF appt. Hospital: [facility] Date of admission: 03/17/2024 Discharge date: 05/09/2024 Diagnosed: Discuss with pt. *Send message to [place] Clinical Care Coordinators documented in this encounter Plan of Treatment Upcoming Encounters Date Type Department Care Team (Late st Contact Info) Description 07/28/2024 9:45 AM EDT Office Visit [facility] CHC MED & PEDS [address] [place] [address] Rick Arcos MD [address] [place] [address] documented as of this encounter Visit Diagnoses Not on filedocumented in this encounter Care Teams Cook Box Filler Relationship Specialty Start Date End Date Rick Arcos MD [address] [place] [address] PCP - General Internal Medicine 05/28/24 Rodrick Arguello 06/09/24 documented as of this encounter
--- OUTSIDE RECORDS SUMMARY | 2024-07-21 17:32 | XMS_ITS | Encounter Summary ---
Author Organization [employer] Address [address] [facility] 7t [place] [address] Care Team Providers Care Automotive Diagnostic Technician Name Role Phone Rick Arcos MD Primary Care Prov ider Reason for Visit * Reason Onset Date Comments Medication Question 05/11/2024 Encounter Details Date Type Department Care Team (Late st Contact Info) Description 05/11/2024 Telephone [facility] MEDICINE [address] [place] [address] Rick Arcos MD [address] [place], [place] [phone] Medication Question Social History Tobacco Use Types [...] to prescribe medications and send them to [facility] pharmacy . Pt states he gave provider a list of about 20 medications documented in this encounter Plan of Treatment Upcoming Encounters Date Type Department Care Team (Late Contact Info) Description 07/28/2024 9:45 AM EDT Office Visit [facility] MED & PEDS [address] [place] [address] Rick Arcos MD [address] [place] [address] documented as of this encounter Visit Diagnoses Not on filedocumented in this encounter Care Teams Automotive Diagnostic Technician Relationship Specialty Start Date End Date Rick Arcos MD [address] [place] [address] PCP - General Internal Medicine 05/28/24 Rodrick Arguello 06/09/24 documented as of this encounter
--- OUTSIDE RECORDS SUMMARY | 2024-07-21 17:32 | XMS_ITS | Encounter Summary ---
Author Organization [employer] Address [address] [place] [address] 7 [place] [address] Care Team Providers Care Chief Dispatcher Service Name Role Phone Rick Arcos MD Primary Care Prov ider Reason for Visit * Reason Onset Date Comments Nurse Triage 07/21/2024 Encounter Details Date Type Department Care Team ([facility] st Contact Info) Description 07/21/2024 Telephone [facility] CHC MED & PEDS [address] [place], [place] [phone] Rick Arcos MD [address] [place] [address] Nurse Triage Social History Tobacco Use Types [...] Telephone Encounter - Chapis Arias RN - 07/21/2024 2:55 PM EDT [facility] [employer] reviewed. Pt currently in ED at [facility] * Telephone Encounter - Velma Aranda RN - 07/21/2024 1:28 PM EDT Incoming call from [facility] with [facility]. Reports pt having Right LE swelling, redness very warmto touch. Pt also having a weight gain from 8 (weight 295.2 lbs) today's weight is 4/15 (weight 307lbs). [facility] also reports that pt has not taken oral antibiotics that were prescribed at recent ER visit on 07/16/24 (no notes in chart, requested that School Psychological Examiner obtain and scan into chart) Pt hsalso not taken any of the meds set up for the week in his pill box. [facility] is looking for recommendations for patients required level of care. Advised that patient should seek ER for immediate re-evalaution of RLE swelling and redness as well as 12.2 lbs weight gain. Pt agrees to seek [facility] ED now for exam. Sent to team to update and status check tomorrow. Protocol Used: Leg Swelling and Edema (Adult) Protocol-Based Disposition: Go to Office or Video Visit Now Positive Triage Question: * Thigh, calf, or ankle swelling in only one leg * All higher-acuity triage questions were negative Care Advice Discussed: * Reasons To Call Back - You become worse * Telephone Encounter - Allison Whitaker - 07/21/2024 1:24 PM EDT Tc from [place] visiting nurse with care tenders requesting to speak to a triage nurse regarding concerns. English As A Second Language Teacher transferred call to triage manager background VG. documented in this encounter Plan of Treatment Upcoming Encounters Date Type Department Care Team (Late st Contact Info) Description 07/28/2024 9:45 AM EDT Office Visit [facility] MED & PEDS [address] [place] [address] Rick Arcso MD [address] [place] [address] documented as of this encounter Visit Diagnoses Not on filedocumented in this encounter Care Teams Chief Dispatcher Service Relationship Specialty Start Date End Date Rick Arcos MD [address] [place] [address] PCP - General Internal Medicine 05/28/24 Rodrick Arguello 06/09/24 documented as of this encounter
--- OUTSIDE RECORDS SUMMARY | 2024-07-21 17:32 | XMS_ITS | Encounter Summary ---
Author Organization [facility] Address [address] [place] [phone] Care Team Providers Care Group Dynamics Instructor Name Role Phone Maty Darnell MD Primary Care Provider [phone] Encounter Details Date Type Department Care Team (Late st Contact Info) Description 05/25/2024 Lab Requisition [facility] - Main Lab [address] [place] [address] Herminio Lee MD [address] [place] [address] Essential (primary) hypertension; Fever, unspecified Social History [...] LAB CHEMISTRY METHOD 05/25/2024 11:48 AM EST [facility] Potassium 4.3 3.5 - 5.5 mmol/L LAB CHEMISTRY METHOD 05/25/2024 11:48 AM [facility] LAB Chloride 101 96 - 110 mmol/L LAB CHEMISTRY METHOD 05/25/2024 11:48 AM [facility] CO2 24 21 - 32 mmol/L LAB CHEMISTRY METHOD 05/25/2024 11:48 AM [facility] Anion Gap 11 3 - 11 LAB CHEMISTRY METHOD 05/25/2024 11:48 AM [facility] LAB Glucose 95 70 - 100 mg/dL LAB CHEMISTRY METHOD 05/25/2024 11:48 AM [facility] BUN 21 5 - 25 mg/dL LAB CHEMISTRY METHOD 05/25/2024 11:48 AM [facility] LAB Creatinine 1.36(H) 0.70 - 1.30 mg/dL LAB CHEMISTRY METHOD 05/25/2024 11:48 AM [facility] LAB eGFR 57(L) >=60 mL/min/1. 73m2 LAB CHEMISTRY METHOD 05/25/2024 11:48 AM [facility] Comment:Calculation based on the??Chronic Kidney Disease Epidemiology Collaboration (CKD-EPI) equation refit??without adjustment for race. BUN/Creatinine Ratio 15.4 LAB CHEMISTRY METHOD 05/25/2024 11:48 AM [facility] Calcium 8.1(L) 8.5 - 10.5 mg/dL LAB CHEMISTRY METHOD 05/25/2024 11:48 AM [facility] Blood Venous blood specimen / Unknown Venipuncture / Unknown 05/25/2024 7:40 AM EST 05/25/2024 10:32 AM EST us Herminio Lee MD LAB BLOOD ORDERABLES Final R esult [facility] [address] [place] [address], * (ABNORMAL) Complete blood count (05/25/2024 7:40 AM EST) [facility] WBC 7.4 4.8 - 10.8 K/mcL LAB HEMETOLOGY METHOD 05/25/2024 11:44 AM [facility] RBC 3.90(L) 4.50 - 5.50 M/mcL LAB HEMETOLOGY METHOD 05/25/2024 11:44 AM [facility] Hemoglobin 11.4(L) 13.5 - 17.5 g/dL LAB HEMETOLOGY METHOD 05/25/2024 11:44 AM [facility] Hematocrit 36.9(L) 42.0 - 54.0 % LAB HEMETOLOGY METHOD 05/25/2024 11:44 AM [facility] MCV 95.3 79.0 - 98.0 FL LAB HEMETOLOGY METHOD 05/25/2024 11:44 AM [facility] MCH 29.5 27.0 - 32.0 pcg LAB HEMETOLOGY METHOD 05/25/2024 11:44 AM [facility] MCHC 30.9(L) 32.0 - 37.0 g/dL LAB HEMETOLOGY METHOD 05/25/2024 11:44 AM [facility] RDW 15.0 11.0 - 15.0 % LAB HEMETOLOGY METHOD 05/25/2024 11:44 AM [facility] Platelets 164 130 - 400 K/mcL LAB HEMETOLOGY METHOD 05/25/2024 11:44 AM [facility] MPV 11.5(H) 7.0 - 11.0 FL LAB HEMETOLOGY METHOD 05/25/2024 11:44 AM [facility] NRBC 0.0 <1.0 % LAB HEMETOLOGY METHOD 05/25/2024 11:44 AM [facility] NRBC Absolute 0.00 <0.10 K/mcL LAB HEMETOLOGY METHOD 05/25/2024 11:44 AM EST [facility] Blood Venous blood specimen / Unknown Venipuncture / Unknown 05/25/2024 7:40 AM EST 05/25/2024 10:32 AM EST us Herminio Lee MD LAB BLOOD ORDERABLES Final R esult [facility] [address] [place] [address], documented in this encounter Visit Diagnoses Diagnosis Essential (primary) hypertension Unspecified essential hypertension Fever, unspecified documented in this encounter Additional Health Concerns Infection Onset Date Last Indicated Resolved Time Respiratory Rule-Out 05/26/2024 05/26/2024 025 3:08 PM EST Influenza 05/26/2024 05/26/2024 06/19/2024 7:04 PM EDT documented as of this encounter Care Teams Group Dynamics Instructor Relationship Specialty Start Date End Date Maty Darnell MD [address] [place] PCP - General Internal Medicine 10/24/19 documented as of this encounter
--- OUTSIDE RECORDS SUMMARY | 2024-07-21 17:32 | XMS_ITS | Encounter Summary ---
Author Organization [facility] Address [address] [place] [phone] Care Team Providers Care Toppiece Cutter Name Role Phone Maty Darnell MD Primary Care Provider Encounter Details Date Type Department Care Team (Late st Contact Info) Description 05/26/2024 Lab Requisition [facility] - Main Lab [address] [place] [address] Herminio Lee MD [address] [place] [address] Acute cough; Fever, unspecified Social [...] Procedure Name Priority Date/Time Associated Diagnosis Comments [id number], RSV, FLU A AND B QUALITATIVE RT-PCR, LOCAL REFERENCE LAB Routine 05/26/2024 7:00 AM EST Acute cough Fever, unspecified documented in this encounter Results * (ABNORMAL) [id number], RSV, Influenza A and B qualitative RT-PCR (05/26/2024 7:00 AM EST) SARS COV-2 Not Detected Not Detected LAB MOLECULAR DIAGNOSTICS METHOD 05/26/2024 3:08 PM EST [email or web address] Comment: Disclaimer: The manner in which this information is used to guide patient care is the responsibility of the healthcare provider. Testing was performed using the [employer] m SARS-CoV-2 test. This test has [...] for Healthcare Providers can be found at: https://www.fda.gov/media/023660/download Fact sheet for Patients can be found at: https://www.fda.gov/media/202190/download Influenza A PCR Detected(A ) Not Detected LAB MOLECULAR DIAGNOSTICS METHOD 05/26/2024 3:08 PM [facility] Comment:This patient is posi tive for influenza A. If the patient is admitted, please order the Respiratory Virus Panel PCR (Epic ID: [id number]) so our lab can subtype the influenza [...] MICROBIOLOGY - GENERAL O RDERABLES Final Result [facility] [address] [place] [address], documented in this encounter Visit Diagnoses Diagnosis Acute cough Fever, unspecified documented in this encounter Additional Health Concerns Infection Onset Date Last Indicated Resolved Time Respiratory Rule-Out 05/26/2024 05/26/2024 025 3:08 PM EST Influenza 05/26/2024 05/26/2024 06/19/2024 7:04 PM EDT documented as of this encounter Care Teams Toppiece Cutter Relationship Specialty Start Date End Date Maty Darnell MD [address] [place] [address] Dr [address] ANNEL Arguello PCP - General Internal Medicine 10/24/19 documented as of this encounter
--- OUTSIDE RECORDS SUMMARY | 2024-07-21 17:32 | XMS_ITS | Encounter Summary ---
Author Organization [employer] Address [address] [facility] 7t [place] [address] Care Team Providers Care Roll Cleaner Name Role Phone Rick Arcos MD Primary Care Prov ider Reason for Visit * Reason Onset Date Comments Medication Question 07/14/2024 Encounter Details Date Type Department Care Team ([facility] st Contact Info) Description 07/14/2024 Telephone [facility] MEDICINE [address] [place] [address] Rick Arcos MD [address] [place], [place] [phone] Medication Question Social History Tobacco Use Types [...] is not getting medication. Contact pt at [phone] documented in this encounter Plan of Treatment Upcoming Encounters Date Type Department Care Team ([facility] st Contact Info) Description 07/28/2024 9:45 AM EDT Office Visit [facility] MED & PEDS [address] [place] [address] Rikc Arcos MD [address] [place] [address] documented as of this encounter Visit Diagnoses Not on filedocumented in this encounter Care Teams Roll Cleaner Relationship Specialty Start Date End Date Rick Arcos MD [address] [place] [address] PCP - General Internal Medicine 05/28/24 Rodrick Arguello 06/09/24 documented as of this encounter
--- OUTSIDE RECORDS SUMMARY | 2024-07-21 17:32 | XMS_ITS | Clinical Summary ---
Author Organization [facility] Address [address] [place] [address] Care Team Providers Care Tree Worker Name Role Phone Maty Darnell MD Primary Care Provider [phone] Allergies No known active allergies Medications Medication [...] Advance Directives For more information, please contact: [phone] Latest Code Status on File Code Status [...] in the following way:. . Care Teams Tree Worker Relationship Specialty Start Date End Date Maty Darnell MD [address] [place] [address] [address] [place] [address] PCP - General Internal Medicine 10/24/19
--- OUTSIDE RECORDS SUMMARY | 2024-07-21 17:32 | XMS_ITS | Encounter Summary ---
Author Organization [facility] Address [address] [place] [id number] Care Team Providers Care Vacuum Applicator Operator Name Role Phone Maty Darnell MD Primary Care Provider Encounter Details Date Type Department Care Team (Late st Contact Info) Description 06/01/2024 Lab Requisition [facility] - Main Lab [address] [place] [address] Herminio Lee MD [address] [place] [address] Shortness of breath Social History Tobacco Use [...] LAB CHEMISTRY METHOD 06/01/2024 12:30 PM EST [facility] Potassium 4.4 3.5 - 5.5 mmol/L LAB CHEMISTRY METHOD 06/01/2024 12:30 PM [facility] Chloride 107 96 - 110 mmol/L LAB CHEMISTRY METHOD 06/01/2024 12:30 PM [facility] CO2 25 21 - 32 mmol/L LAB CHEMISTRY METHOD 06/01/2024 12:30 PM [facility] Anion Gap 9 3 - 11 LAB CHEMISTRY METHOD 06/01/2024 12:30 PM [facility] Glucose 79 70 - 100 mg/dL LAB CHEMISTRY METHOD 06/01/2024 12:30 PM [facility] BUN 18 5 - 25 mg/dL LAB CHEMISTRY METHOD 06/01/2024 12:30 PM [facility] Creatinine 1.16 0.70 - 1.30 mg/dL LAB CHEMISTRY METHOD 06/01/2024 12:30 PM [facility] LAB eGFR 69 >=60 mL/min/1. 73m2 LAB CHEMISTRY METHOD 06/01/2024 12:30 PM [facility] Comment:Calculation based on the??Chronic Kidney Disease Epidemiology Collaboration (CKD-EPI) equation refit??without adjustment for race. BUN/Creatinine Ratio 15.5 LAB CHEMISTRY METHOD 06/01/2024 12:30 PM [facility] Calcium 8.7 8.5 - 10.5 mg/dL LAB CHEMISTRY METHOD 06/01/2024 12:30 PM [facility] Blood Venous blood specimen / Unknown Venipuncture / Unknown 06/01/2024 10:03 AM EST 06/01/2024 11:00 AM EST us Herminio Lee MD LAB BLOOD ORDERABLES Final R esult [facility] [address] [place] [address], * (ABNORMAL) Complete blood count (06/01/2024 10:03 AM EST) WBC 8.8 4.8 - 10.8 K/mcL LAB HEMETOLOGY METHOD 06/01/2024 1:47 PM [facility] RBC 4.30(L) 4.50 - 5.50 M/mcL LAB HEMETOLOGY METHOD 06/01/2024 1:47 PM [facility] Hemoglobin 12.6(L) 13.5 - 17.5 g/dL LAB HEMETOLOGY METHOD 06/01/2024 1:47 PM [facility] Hematocrit 40.6(L) 42.0 - 54.0 % LAB HEMETOLOGY METHOD 06/01/2024 1:47 PM [facility] MCV 94.9 79.0 - 98.0 FL LAB HEMETOLOGY METHOD 06/01/2024 1:47 PM [facility] MCH 29.4 27.0 - 32.0 pcg LAB HEMETOLOGY METHOD 06/01/2024 1:47 PM [facility] MCHC 31.0(L) 32.0 - 37.0 g/dL LAB HEMETOLOGY METHOD 06/01/2024 1:47 PM [facility] RDW 15.2(H) 11.0 - 15.0 % LAB HEMETOLOGY METHOD 06/01/2024 1:47 PM [facility] Platelets 282 130 - 400 K/mcL LAB HEMETOLOGY METHOD 06/01/2024 1:47 PM [facility] MPV 10.6 7.0 - 11.0 FL LAB HEMETOLOGY METHOD 06/01/2024 1:47 PM [facility] NRBC 0.0 <1.0 % LAB HEMETOLOGY METHOD 06/01/2024 1:47 PM [facility] NRBC Absolute 0.00 <0.10 K/mcL LAB HEMETOLOGY METHOD 06/01/2024 1:47 PM [facility] Blood Venous blood specimen / Unknown Venipuncture / Unknown 06/01/2024 10:03 AM EST 06/01/2024 11:00 AM EST us Herminio Lee MD LAB BLOOD ORDERABLES Final R esult [facility] ([facility] [address] [place] [address], documented in this encounter Visit Diagnoses Diagnosis Shortness of breath documented in this encounter Additional Health Concerns Infection Onset Date Last Indicated Resolved Time Influenza 05/26/2024 05/26/2024 06/19/2024 7:04 PM EDT documented as of this encounter Care Teams Vacuum Applicator Operator Relationship Specialty Start Date End Date Maty Darnell MD [address] [place] [address] [address] [place], [place] PCP - General Internal Medicine 10/24/19 documented as of this encounter
--- OUTSIDE RECORDS SUMMARY | 2024-07-21 17:32 | XMS_ITS | Encounter Summary ---
Author Organization [employer] Address [address] [place] [address] 7 [place] [address] Care Team Providers Care Electrical & Instrumentation Supervisor Name Role Phone Rick Arcos MD Primary Care Prov ider Reason for Visit * Reason Onset Date Comments Verbal order 07/21/2024 Encounter Details Date Type Department Care Team ([facility] Contact Info) Description 07/21/2024 Telephone [facility] MED & PEDS [address] [place], [place] [phone] Rick Arcos MD [address] [place] [address] Verbal order Social History Tobacco Use Types Packs/Day [...] Telephone Encounter - Cristina Hanley RN - 07/21/2024 10:00 AM EDT Verbal order given to Sofia for OT. * Telephone Encounter - Allison Whitaker - 07/21/2024 9:41 AM EDT Tc from Sofia with [facility] requesting verbal order for occupational therapy once a week for2 weeks Contact Sofia at [phone] documented in this encounter Plan of Treatment Upcoming Encounters Date Type Department Care Team ([facility] st Contact Info) Description 07/28/2024 9:45 AM EDT Office Visit [facility] MED & PEDS [address] [place] [address] Rick Arcos MD [address] [place] [address] documented as of this encounter Visit Diagnoses Not on filedocumented in this encounter Care Teams Electrical & Instrumentation Supervisor Relationship Specialty Start Date End Date Rick Arcos MD [address] [place] [address] PCP - General Internal Medicine 05/28/24 Rodrick Arguello 06/09/24 documented as of this encounter
--- OUTSIDE RECORDS SUMMARY | 2024-07-21 17:32 | XMS_ITS | Clinical Summary ---
Author Organization [employer] Address [address] [facility] 7[address] [place] [address] Care Team Providers Care Display Department Manager Name Role Phone Rick Arcos MD Primary Care Prov ider Allergies Active Allergy Reactions Criticality Noted Date Comments Cefazolin Rash Low 03/08/2024 Morphine Unknown 10/16/2023 Medications ARIPiprazole (Abilify) 5 MG tablet Take 1 [...] capsule by mouth Once per day. Active acetaminophen (Tylenol) 325 MG capsule Take [...] Once per day. 90 tablet 3 05/22/19 25 Active apixaban (Eliquis) 2.5 MG tablet Take 2 tablets (5 mg) by mouth 2 times daily. 360 tablet 3 05/22/19 Active atorvastatin (Lipitor) 40 MG tablet Take 1 tablet (40 mg) by mouth Once per day. 90 tablet 3 05/22/19 Active cyclobenzaprin e (Flexeril) 10 MG tabletIndicati ons:Muscle spasm Take 1 tablet (10 mg) by mouth every 12 (twelve) hours. 60 tablet 05/22/19 25 Active digoxin (Lanoxin) 250 MCG tab;et Take 1 tablet (250 mcg) by mouth Once per day. 30 tablet 1 05/22/19 Active omeprazole (PriLOSEC) [address] capsule Take 1 capsule (40 mg) by mouth before breakfast. Do not crush or chew. 90 capsule 3 05/22/19 Active potassium chloride CR (Klor-Con M20) 20 MEQ ER tablet Take 1 tablet (20 mEq) by mouth Once per day. 90 tablet 05/22/19 Active spironolactone (Aldactone) 50 MG tablet [...] per day. 90 capsule 3 05/22/19 Active vilazodone (Viibryd) 20 MG tablet Take 2 tablets (40 mg) by mouth with evening meal. 7 tablet 3 05/22/19 Active zolpidem (Ambien) 10 MG tablet Take 1 tablet (10 mg) by mouth if needed at bedtime for sleep. 30 tablet 05/28/19 25 Active senna (Senokot) 8.6 MG tablet TAKE TWO TABLETS ONCE DAILY 60 tablet 1 07/21/19 Active albuterol 108 (90 Base) MCG/ACT inhaler 06/01/19 25 Active dilTIAZem CD (Cardizem CD) 120 MG 24 hr capsule Take 1 capsule by mouth Once per day. 07/14/19 25 Active gabapentin (Neurontin) 600 MG tablet Take 1 tablet by mouth 3 times daily. 07/14/19 25 Active hydrocortisone 2.5 % cream Use as directed 01/30/20 Active hydrOXYzine HCl (Atarax) 25 MG tablet Take 1 tablet by mouth every 8 (eight) hours if needed. 01/09/20 Active ipratropium-al buterol (Duo-Neb) 0.5-2.5 mg/3 mL nebulizer solution Take 3 mL by nebulization. 05/29/19 25 Active nystatin (Mycostatin) cream Apply 1 Application. topically if needed. 01/25/20 Active nystatin-triam cinolone (Mycolog II) cream Apply 1 Application. topically 2 times daily. 04/28/19 25 Active permethrin (Elimite) 5 % cream Apply 1 Application. topically 1 (one) time. 01/08/20 Active QUEtiapine (SEROquel) 25 MG tablet Take 1 tablet by mouth 2 times daily. 07/29/19 Active triamcinolone (Kenalog) 0.1 % cream Apply topically. 01/15/20 Active oxyCODONE (Roxicodone) 5 MG immediate release tablet Take 1 tablet by mouth 6 times daily as needed OR take 2 tablets by mouth every morning and 1 tablet three times daily as directed 07/17/19 25 Active metoprolol succinate XL (Toprol-XL) 50 MG 24 hr tablet Take 3 tablets by mouth 2 times daily. 05/18/19 25 Active METOPROLOL SUCCINATE PO Take 1 tablet by mouth Once per day. 50mg 3 tablet BID 025 Discontinued(M ed list cleanup (will not trigger notification to Pharmacy)) metoprolol tartrate (Lopressor) 100 MG tablet Take 100 mg by mouth 2 times daily. 02/20/20 24 025 Discontinued(M ed list cleanup (will not trigger notification to Pharmacy)) dilTIAZem XR (Dilacor XR) 120 MG 24 hr capsule Take 1 capsule (120 mg) by mouth Once per day. 180mg daily 30 capsule 1 05/22/19 025 Discontinued(M ed list cleanup (will not trigger notification to Pharmacy)) gabapentin (Neurontin) 400 MG capsule Take 1 capsule (400 mg) by mouth 3 times daily. 90 capsule 1 05/22/19 025 Discontinued(M ed list cleanup (will not trigger notification to Pharmacy)) Sennosides 8.6 MG capsule Take 2 capsules (17.2 mg) by mouth Once per day. 60 capsule 1 05/22/19 025 Discontinued oxyCODONE (Oxy-IR) 5 MG immediate release capsuleIndicat ions:Other chronic pain Take 1 capsule (5 mg) by mouth every 6 (six) hours. 2 tablet in the morning for pain, 1 tablet tid 112 capsule 05/29/19 025 Discontinued(M ed list cleanup (will not trigger notification to Pharmacy)) DULoxetine (Cymbalta) [address] capsule Take 1 capsule by mouth Once per day. 12/14/19 025 Discontinued(M ed list cleanup (will not trigger notification to Pharmacy)) Active [...] AM EST): Patient lives on a senior care 3 years [facility] Pmhx: Afib, severe neuropathy, Pshx: exploratory laparotomy due to obstruction 2019, stomach bypass 1994, deviated septum, prostate 1990's, plantar fasciatis both feet, All:- Meds: as above Encounters Date Type Department Care Team Description 07/21/2024 Telephone [facility] MED & PEDS [address] [place] [address] Rick Arcos MD Nurse Triage 07/21/2024 Telephone [facility] MED & PEDS [address] [place] [address] Rick Arcos MD Verbal order 07/21/2024 Telephone [facility] MED & PEDS [address] [place] [address] Rick Arcos MD Durable Medical Equipment 07/20/2024 Refill [facility] MED & PEDS [address] [place] [address] Rick Arcos MD 07/17/2024 Telephone [facility] [address] [place] [address] Rick Arcso MD Verbal Order 07/15/2024 Telephone [facility] MED & PEDS [address] [place] [address] Rick Arcos MD Med Refill 07/15/2024 Telephone [facility] P[facility]S [address] [place] [address] Rick Arcos MD 07/15/2024 Telephone [facility] MED [facility] P[facility]S [address] [place] [address] Rick Arcos MD 07/15/2024 Telephone [facility] [address] [place] [address] Rick Arcos MD Nurse Triage 07/15/[address] [address] Rick Arcos MD Verbal Order 07/14/2024 Telephone [facility] MED & PEDS [address] [place] [address] Rick Arcos MD Med Refill 07/14/[address] [address] Rick Arcos MD Medication Question 07/14/[address] [address] Rick Arcos MD verbal order 07/10/2024 Patient Outreach [address] [address] Rick Arcos MD Transition Of Care (Tcm) (HDF scheduled) 06/24/[address] [address] Rick Arcos MD Appointment Request 06/19/[address] [address] Rick Arcos MD verbal order 06/19/[address] [address] Rick Arcos MD Nurse Triage 06/18/2024 Patient Outreach [facility] MED & PEDS [address] [place] [address] Rick Arcos MD Pre-visit Planning (SDOH will need to be completed in office. ) 06/10/2024 Telephone [facility] MED [facility] PEDS [address] [place] [address] Rick Arcos MD Record Request 06/09/[address] [address] Rick Arcos MD Care Coordination; Medication Question 06/05/[address] [address] Rick Arcos MD Verbal Orders 06/03/2024 Orders Only [facility] PEDS [address] [place] [address] Rick Arcos MD 06/03/2024 Telephone [facility] MED & PEDS [address] [place] [address] Rick Arcos MD Prior Authorization 05/29/2024 Refill [facility] PEDS [address] [place] [address] Barbara Velazquez, RN Other chronic pain 05/28/2024 Telephone [facility] [address] [place] [address] Barbara Velazquez, NIMESH 05/27/2024 Refill [facility] [address] [place] [address] Rick Arcos MD Other chronic pain (Primary Dx) 05/27/2024 Refill [facility] [address] [place] [address] Rick Arcos MD 05/22/2024 Orders Only [facility] MED [facility] PEDS [address] [place] [address] Rick Arcos MD Muscle spasm (Primary Dx) 05/11/2024 Telephone [facility] [address] [place] [address] Rick Arcos MD Medication Question 05/05/2024 10:45 AM EST Telemedicine [facility] [address] [place] [address] Rick Arcos MD Encounter for medical examination [...] present 05/05/2024 Travel from Last 3 Months Immunizations Name Administration Dates Next Due Influenza, IIV3, injectable 01/09/2016, 0 Pfizer Covid-19 Vaccine 12+ 08/10/2021, 1,07/21/2020 Pneumococcal Polysaccharide PPSV23 09/27/2005 Pneumococcal, Unspecified 02/23/2018 Family History Medical History Relation Name Comments [...] Description 07/28/2024 9:45 AM EDT Office Visit [facility]S [address] [place], [place] [phone] Rick Arcos MD [address] [place], [place] [phone] Health Maintenance Due Date Last Done Comments [...] - PCV) 02/23/2019 02/23/2018, 09/27/2005 COVID-19 Vaccine (2023-2 5 season) 2023 08/10/2021, 08/18/2020, 07/21/2020 Influenza [...] Processed 9 N/A 05/31/2024 1:24 AM EST [facility] (CLIA #:[id number]) Comment:An empty collection kit was received in the laboratory. The patient will be contacted to initiate a new sample collection. Stool specimen (specimen) Rectal contents / Unknown 05/30/2024 10:41 AM EST Rick Genao MD LAB MOLECULAR DIAG NOSTICS ORDERABLES Final Result [facility] (CLIA #:[id number]) [address] [place] [address], [place] [phone] from Last 3 Months Insurance [facility] STANDARD MEDICARE DENTAL-[facility] MEDICAID STAND ADULT Care Teams Display Department Manager Relationship Specialty Start Date End Date Rick Arcos MD [address] [place] [address] PCP - General Internal Medicine 05/28/24 [facility] 06/09/24
--- OUTSIDE RECORDS SUMMARY | 2024-07-21 17:32 | XMS_ITS | Clinical Summary ---
Author Organization [facility] Address [address] [place] [address] Care Team Providers Care Regional Coordinator Name Role Phone Unavailable Primary Care Provider [...]
--- OUTSIDE RECORDS SUMMARY | 2024-07-21 17:32 | XMS_ITS | Encounter Summary ---
Author Organization [employer] Address [address] [facility] 7t [place] [address] Care Team Providers Care Blade Balancer Name Role Phone Rick Arcos MD Primary Care Prov ider Reason for Visit * Reason Onset Date Comments Nurse Triage 07/15/2024 Encounter Details Date Type Department Care Team (Late st Contact Info) Description 07/15/2024 Telephone [facility] [address] [place] [address] Rick Acros MD [address] [place], [place] [phone] Nurse Triage Social History Tobacco Use Types [...] returned to patient who was discharged from [facility] on Saturday07/13/2024. Though documentation show Oxycodone was filled for 26 tabs on 07/10/24 patient was not allowed to take home medication upon discharge. Per patient it is the [facility] policy. Last Oxycodone taken at 10am on Saturday.Reports symptom of diarrhea and nausea as no medication available. Patient seeking refill for home use pending [facility] appt with PCP on 07/28/24. [...] caller accepted this outcome. Contact pt at [phone] Pt states that the symptoms that he is having are due to him not having his medication oxyCODONE (Oxy-IR) 5 MG immediate release capsule. documented in this encounter Plan of Treatment Upcoming Encounters Date Type Department Care Team (Late st Contact Info) Description 07/28/2024 9:45 AM EDT Office Visit [facility] MED & PEDS [address] [place] [address] Rick Arcos MD [address] [place] [address] documented as of this encounter Visit Diagnoses Not on filedocumented in this encounter Care Teams Blade Balancer Relationship Specialty Start Date End Date Rick Arcos MD [address] [place] [address] PCP - General Internal Medicine 05/28/24 Rodrick Arguello 06/09/24 documented as of this encounter
--- OUTSIDE RECORDS SUMMARY | 2024-07-21 17:32 | XMS_ITS | Encounter Summary ---
Author Organization [employer] Address [address] [facility] 7t [place] [address] Care Team Providers Care Entry Level Manager Name Role Phone Rick Arcos MD Primary Care Prov ider Reason for Visit * Reason Onset Date Comments Verbal Order 07/15/2024 Encounter Details Date Type Department Care Team (Late st Contact Info) Description 07/15/2024 Telephone [facility] MEDICINE [address] [place] [address] Rick Arcos MD [address] [place], [place] [phone] Verbal Order Social History Tobacco Use Types [...] Description 07/28/2024 9:45 AM EDT Office Visit [facility] MED & PEDS [address] [place] [address] Rick Arcos MD [address] [place] [address] documented as of this encounter Visit Diagnoses Not on filedocumented in this encounter Care Teams Entry Level Manager Relationship Specialty Start Date End Date Rick Arcos MD [address] [place] [address] PCP - General Internal Medicine 05/28/24 [facility] 06/09/24 documented as of this encounter
--- OUTSIDE RECORDS SUMMARY | 2024-07-21 17:32 | XMS_ITS | Encounter Summary ---
Author Organization [facility] Address [id number] [place] [address] Care Team Providers Care Slot Key Person Name Role Phone Maty Darnell MD Primary Care Provider [phone] Encounter Details Date Type Department Care Team (Late st Contact Info) Description 04/02/2024 Lab Requisition [facility] - Main Lab [address] [place] [address] Herminio Lee MD [address] [place] [address] Unspecified atrial fibrillation (CMS/HCC V24, CMS/HCC V28) Social History Tobacco Use Types Packs/Day Years [...] LAB CHEMISTRY METHOD 04/03/2024 10:04 AM EST [facility] Potassium 4.4 3.5 - 5.5 mmol/L LAB CHEMISTRY METHOD 04/03/2024 10:04 AM [facility] Comment:Hemolysis present Chloride 107 96 - 110 mmol/L LAB CHEMISTRY METHOD 04/03/2024 10:04 AM [facility] CO2 28 21 - 32 mmol/L LAB CHEMISTRY METHOD 04/03/2024 10:04 AM [facility] Anion Gap 4 3 - 11 LAB CHEMISTRY METHOD 04/03/2024 10:04 AM [facility] Glucose 85 70 - 100 mg/dL LAB CHEMISTRY METHOD 04/03/2024 10:04 AM [facility] BUN 18 5 - 25 mg/dL LAB CHEMISTRY METHOD 04/03/2024 10:04 AM [facility] Creatinine 1.03 0.70 - 1.30 mg/dL LAB CHEMISTRY METHOD 04/03/2024 10:04 AM [facility] eGFR 81 >=60 mL/min/1. 73m2 LAB CHEMISTRY METHOD 04/03/2024 10:04 AM [facility] Comment:Calculation based on the??Chronic Kidney Disease Epidemiology Collaboration (CKD-EPI) equation refit??without adjustment for race. BUN/Creatinine Ratio 17.5 LAB CHEMISTRY METHOD 04/03/2024 10:04 AM [facility] Calcium 8.7 8.5 - 10.5 mg/dL LAB CHEMISTRY METHOD 04/03/2024 10:04 AM [facility] AST (SGOT) 27 10 - 42 unit/L LAB CHEMISTRY METHOD 04/03/2024 10:04 AM [facility] Comment:Hemolysis present ALT (SGPT) 22 10 - 60 unit/L LAB CHEMISTRY METHOD 04/03/2024 10:04 AM [facility] Alkaline Phosphatase 96 42 - 121 unit/L LAB CHEMISTRY METHOD 04/03/2024 10:04 AM [facility] Total Protein 7.0 6.0 - 8.0 g/dL LAB CHEMISTRY METHOD 04/03/2024 10:04 AM [facility] Albumin 3.1(L) 3.2 - 5.0 g/dL LAB CHEMISTRY METHOD 04/03/2024 10:04 AM [facility] Total Bilirubin 0.3 0.0 - 1.4 mg/dL LAB CHEMISTRY METHOD 04/03/2024 10:04 AM [facility] Blood Venous blood specimen / Unknown Venipuncture / Unknown 04/03/2024 7:26 AM EST 04/03/2024 9:41 AM EST us Herminio Lee MD LAB BLOOD ORDERABLES Final R esult [facility] [address] [place] [address], * (ABNORMAL) Complete blood count (04/03/2024 7:26 AM EST) WBC 7.0 4.8 - 10.8 K/mcL LAB HEMETOLOGY METHOD 04/03/2024 9:49 AM [facility] RBC 4.00(L) 4.50 - 5.50 M/mcL LAB HEMETOLOGY METHOD 04/03/2024 9:49 AM [facility] Hemoglobin 12.2(L) 13.5 - 17.5 g/dL LAB HEMETOLOGY METHOD 04/03/2024 9:49 AM [facility] Hematocrit 40.3(L) 42.0 - 54.0 % LAB HEMETOLOGY METHOD 04/03/2024 9:49 AM [facility] MCV 100.0(H) 79.0 - 98.0 FL LAB HEMETOLOGY METHOD 04/03/2024 9:49 AM [facility] MCH 30.3 27.0 - 32.0 pcg LAB HEMETOLOGY METHOD 04/03/2024 9:49 AM EST [facility] MCHC 30.3(L) 32.0 - 37.0 g/dL LAB HEMETOLOGY METHOD 04/03/2024 9:49 AM [facility] RDW 15.3(H) 11.0 - 15.0 % LAB HEMETOLOGY METHOD 04/03/2024 9:49 AM EST [facility] Platelets 326 130 - 400 K/mcL LAB HEMETOLOGY METHOD 04/03/2024 9:49 AM [facility] MPV 10.2 7.0 - 11.0 FL LAB HEMETOLOGY METHOD 04/03/2024 9:49 AM [facility] NRBC 0.0 <1.0 % LAB HEMETOLOGY METHOD 04/03/2024 9:49 AM [facility] NRBC Absolute 0.00 <0.10 K/mcL LAB HEMETOLOGY METHOD 04/03/2024 9:49 AM [facility] Blood Venous blood specimen / Unknown Venipuncture / Unknown 04/03/2024 7:26 AM EST 04/03/2024 9:42 AM EST Herminio Lee MD LAB BLOOD ORDERABLES Final R esult [facility] [address] [place] [address], documented in this encounter Visit Diagnoses Diagnosis Unspecified atrial fibrillation (CMS/HCC V24, CMS/HCC V28) documented in this encounter Additional Health Concerns Infection Onset Date Last Indicated Resolved Time Respiratory Rule-Out 05/26/2024 05/26/2024 025 3:08 PM EST Influenza 05/26/2024 05/26/2024 06/19/2024 7:04 PM EDT documented as of this encounter Care Teams Slot Key Person Relationship Specialty Start Date End Date Maty Darnell MD [address] [place] [address] Dr [address] ANNEL Arguello PCP - General Internal Medicine 10/24/19 documented as of this encounter
--- OUTSIDE RECORDS SUMMARY | 2024-07-21 17:32 | XMS_ITS | Encounter Summary ---
Author Organization [facility] Address [address] [place] [address] 7 [place] [address] Care Team Providers Care Heavy Duty Custodian Name Role Phone Rick Arcos MD Primary Care Prov ider Encounter Details Date Type Department Care Team (Late Contact Info) Description 06/03/2024 Orders Only [facility] [address] [place] [address] Rick Arcos MD [address] [place] [address] Social History Tobacco Use Types Packs/Day Years [...] Description 07/28/2024 9:45 AM EDT Office Visit [facility] [address] [place] [address] Rick Arcos MD [address] [place], [place] [phone] documented as of this encounter Visit Diagnoses Not on filedocumented in this encounter Care Teams Heavy Duty Custodian Relationship Specialty Start Date End Date Rick Arcos MD [address] [place] [address] PCP - General Internal Medicine 05/28/24 Rodrick Arguello 06/09/24 documented as of this encounter
--- OUTSIDE RECORDS SUMMARY | 2024-07-21 17:32 | XMS_ITS | Encounter Summary ---
Author Organization [facility] Address [address] [place] [address] 7 [place] [address] Care Team Providers Care Lockstitch Front Maker Name Role Phone Rick Arcos MD Primary Care Prov ider Encounter Details Date Type Department Care Team (Late Contact Info) Description 07/15/2024 Telephone [facility] [address] [place] [address] Rick Arcos MD [address] [place] [address] Social History Tobacco Use Types Packs/Day Years [...] Description 07/28/2024 9:45 AM EDT Office Visit [facility] [address] [place] [address] Rick Arcos MD [address] [place], [place] [phone] documented as of this encounter Visit Diagnoses Not on filedocumented in this encounter Care Teams Lockstitch Front Maker Relationship Specialty Start Date End Date Rick Arcos MD [address] [place] [address] PCP - General Internal Medicine 05/28/24 Rodrick Arguello 06/09/24 documented as of this encounter
--- OUTSIDE RECORDS SUMMARY | 2024-07-21 17:32 | XMS_ITS | Clinical Summary ---
Author Organization [address] Address [address] [place] [address] Phone Care Team Providers Care Windows Systems Engineer Name Role Phone Maty Darnell MD Primary Care Provider [phone] Encounters Date Type Department Care Team Description 06/01/2024 Lab Requisition [facility] [address] [place] [phone] Herminio Lee MD Shortness of breath 05/26/2024 Lab Requisition [facility] [address] [place] [phone] Herminio Lee MD Acute cough; Fever, unspecified 05/25/2024 Lab Requisition [facility] [address] [place] [phone] Herminio Lee MD Essential (primary) hypertension; Fever, unspecified from Last 3 Months Medical History Medical History Date Comments A-fib (CMS/HCC V24, CMS/HCC V28) DX:A-fib (HCC) Hypertension DX:Hypertension HLD (hyperlipidemia) DX:HLD [...] season) 2023 08/10/2021, 08/18/2020, 07/21/2020 Influenza Vaccine (Season Ended) 2024 01/09/2016, 04/05/2010 Hypertension/CHF/CAD Annual BMP Blood Test 06/01/2025 06/01/2024, [...] 06/01/2024 10:03 AM EST Shortness of breath [id number], RSV, FLU A AND B QUALITATIVE RT-PCR, [...] K/mcL LAB HEMETOLOGY METHOD 06/01/2024 1:[address] [facility] RBC 4.30(L) 4.50 - 5.50 M/mcL LAB HEMETOLOGY METHOD 06/01/2024 1:[address] [facility] Hemoglobin 12.6(L) 13.5 - 17.5 g/dL LAB HEMETOLOGY METHOD 06/01/2024 1:[address] [facility] Hematocrit 40.6(L) 42.0 - 54.0 % LAB HEMETOLOGY METHOD 06/01/2024 1:[address] [facility] MCV 94.9 79.0 - 98.0 FL LAB HEMETOLOGY METHOD 06/01/2024 1:[address] [facility] MCH 29.4 27.0 - 32.0 pcg LAB HEMETOLOGY METHOD 06/01/2024 1:[address] [facility] MCHC 31.0(L) 32.0 - 37.0 g/dL LAB HEMETOLOGY METHOD 06/01/2024 1:[address] [facility] RDW 15.2(H) 11.0 - 15.0 % LAB HEMETOLOGY METHOD 06/01/2024 1:[address] [facility] Platelets 282 130 - 400 K/mcL LAB HEMETOLOGY METHOD 06/01/2024 1:[address] [facility] MPV 10.6 7.0 - 11.0 FL LAB HEMETOLOGY METHOD 06/01/2024 1:47 PM EST [facility] NRBC 0.0 <1.0 % LAB HEMETOLOGY METHOD 06/01/2024 1:[address] [facility] NRBC Absolute 0.00 <0.10 K/mcL LAB HEMETOLOGY METHOD 06/01/2024 1:[address] [facility] Blood Venous blood specimen / Unknown Venipuncture / Unknown 06/01/2024 10:03 AM EST 06/01/2024 11:00 AM EST Herminio Lee MD LAB BLOOD ORDERABLES Final R esult [facility] [address] [place] [address], * Basic metabolic panel (06/01/2024 10:03 AM EST) Only the most recent of2 resultswithin the time period is included. Sodium 141 133 - 145 mmol/L LAB CHEMISTRY METHOD 06/01/2024 12:[address] [facility] Potassium 4.4 3.5 - 5.5 mmol/L LAB CHEMISTRY METHOD 06/01/2024 12:[address] [facility] Chloride 107 96 - 110 mmol/L LAB CHEMISTRY METHOD 06/01/2024 12:[address] [facility] CO2 25 21 - 32 mmol/L LAB CHEMISTRY METHOD 06/01/2024 12:[address] [facility] Anion Gap 9 3 - 11 LAB CHEMISTRY METHOD 06/01/2024 12:[address] [facility] Glucose 79 70 - 100 mg/dL LAB CHEMISTRY METHOD 06/01/2024 12:[address] [facility] BUN 18 5 - 25 mg/dL LAB CHEMISTRY METHOD 06/01/2024 12:[address] [facility] Creatinine 1.16 0.70 - 1.30 mg/dL LAB CHEMISTRY METHOD 06/01/2024 12:[address] [facility] eGFR 69 >=60 mL/min/1. 73m2 LAB CHEMISTRY METHOD 06/01/2024 12:[address] [facility] Comment:Calculation based on the??Chronic Kidney Disease Epidemiology Collaboration (CKD-EPI) equation refit??without adjustment for race. BUN/Creatinine Ratio 15.5 LAB CHEMISTRY METHOD 06/01/2024 12:[address] [facility] Calcium 8.7 8.5 - 10.5 mg/dL LAB CHEMISTRY METHOD 06/01/2024 12:[address] [facility] Blood Venous blood specimen / Unknown Venipuncture / Unknown 06/01/2024 10:03 AM EST 06/01/2024 11:00 AM EST Herminio Lee MD LAB BLOOD ORDERABLES Final R esult [facility] [address] [place] [address], * (ABNORMAL) [id number], RSV, Influenza A and B qualitative RT-PCR (05/26/2024 7:00 AM EST) SARS COV-2 Not Detected Not Detected LAB MOLECULAR DIAGNOSTICS METHOD 05/26/2024 3:[address] [facility] Comment: Disclaimer: The manner in which this information is used to guide patient care is the responsibility of the healthcare provider. Testing was performed using the FraudMet[employer] SARS-CoV-2 test. This test has been authorized [...] for Healthcare Providers can be found at: https://www.fda.gov/media/134681/download Fact sheet for Patients can be found at: https://www.fda.gov/media/827788/download Influenza A PCR Detected(A ) Not Detected LAB MOLECULAR DIAGNOSTICS METHOD 05/26/2024 3:[address] [facility] Comment:This patient is posi tive for influenza A. If the patient is admitted, please order the Respiratory Virus Panel PCR (Epic ID: [id number]) so our lab can subtype the influenza A, per CDC recommendations. Influenza B PCR Not Detected Not Detected LAB MOLECULAR DIAGNOSTICS METHOD 05/26/2024 3:[address] [facility] RSV PCR Not Detected Not Detected LAB MOLECULAR DIAGNOSTICS METHOD 05/26/2024 3:[address] [facility] Swab Nasopharyngeal structure / Unknown Non-blood Collection / Unknown 05/26/2024 7:00 AM EST 05/26/2024 11:23 AM EST Herminio Lee MD LAB MICROBIOLOGY - GENERAL O RDERABLES Final Result [facility] [address] [place] [address], from Last 3 Months Insurance MEDICARE MEDICAID - [place] Care Teams Windows Systems Engineer Relationship Specialty Start Date End Date Maty Darnell MD [address] [place] [address] Dr [address] [place], [place] PCP - General Internal Medicine 10/24/19
--- OUTSIDE RECORDS SUMMARY | 2024-07-21 17:32 | XMS_ITS | Referral Summary ---
Author Organization [facility] Address [address] [place] [address] Care Team Providers Care Graphotype Operator Name Role Phone [facility] Primary Care Provider [phone] Allergies Active Allergy Reactions Criticality Noted Date [...] 2 days prior to admission. Was at [facility] prior to current presentation. Assessed by [...] 2 days prior to admission. Was at [facility] prior to current presentation. Assessed by [...] 2 days prior to admission. Was at [facility] prior to current presentation. Assessed by [...] 2 days prior to admission. Was at [facility] prior to current presentation. Assessed by [...] 2 days prior to admission. Was at [facility] prior to current presentation. Assessed by addiction psych this admission who noted patient not interested in MAT for AUD. He was monitored on CIWA which was discontinued on 02/24. - outpatient PCP and AA follow up Assessment & Plan (02/26/2024 6:00 PM EST): Patient reports drinking one quart of hard liquor daily, last drink 2 days prior to admission. Was at [facility] prior to current presentation. Assessed by addiction psych this admission who noted patient not interested in MAT for AUD. He was monitored on CIWA which was discontinued on 02/24. - outpatient PCP and AA follow up Assessment & Plan (02/25/2024 7:00 PM EST): Patient reports drinking one quart of hard liquor daily, last drink 2 days prior to admission. Was at [facility] prior to current presentation. Assessed by [...] chronic venous stasis. He was hospitalized at [facility] back in July 2023 and [...] chronic venous stasis. He was hospitalized at [facility] back in July 2023 and [...] chronic venous stasis. He was hospitalized at [facility] back in July 2023 and [...] chronic venous stasis. He was hospitalized at [facility] back in July 2023 and [...] the leg swelling. He was hospitalized at [facility] back in July 2023 and [...] the leg swelling. He was hospitalized at [facility] back in July 2023 and [...] the leg swelling. He was hospitalized at [facility] back in July 2023 and [...] (03/15/2024 10:34 AM EST): Patient presented from [facility] for evaluation of right lower extremity swelling and redness. He was initiated on clindamycin at [facility] but without improvement so sent to [facility] for evaluation. L. Duplex negative for [...] will need to clear while inpatient to half-way vs other housing Assessment & Plan (03/14/2024 5:17 PM EST): Patient presented from [facility] for evaluation of right lower extremity swelling and redness. He was initiated on clindamycin at [facility] but without improvement so sent to [facility] for evaluation. L. Duplex negative for [...] will need to clear while inpatient to half-way vs other housing Assessment & Plan (03/09/2024 7:28 PM EST): Was initiated on clindamycin at [facility] but without improvement so sent to [facility] for evaluation. L. Duplex negative for [...] PM EST): Was initiated on clindamycin at [facility] but without improvement so sent to [facility] for evaluation. L. Duplex negative for [...] Plan (03/07/2024 1:35 PM EST): Presents from [facility] for evaluation of right lower extremity cellulitis. Was initiated on clindamycin at [facility] but without improvement so sent to [facility] for evaluation. He was sent for [...] Plan (02/26/2024 6:00 PM EST): Presents from [facility] for evaluation of right lower extremity cellulitis. Was initiated on clindamycin at [facility] but without improvement so sent to [facility] for evaluation. He was sent for [...] Plan (02/25/2024 7:00 PM EST): Presents from [facility] for evaluation of right lower extremity cellulitis. Was initiated on clindamycin at [facility] but without improvement so sent to [facility] for evaluation. He was sent for [...] Date Smoking Tobacco: Never Smokeless Tobacco: Never [facility] Utilities Answer Date Recorded In [...] resistant organisms MRSA 02/22/2024 02/22/2024 Insurance MEDICARE [facility] [employer] Advance Directives Documents on File Type Date Recorded Patient Site Controller Expl anation Health Care Proxy 03/11/2024 2:04 PM 03-11 * Full Code (Latest Code Status on File) Date Activated Date Inactivated Comments 02/22/2024 3:34 PM 03/16/2024 6:28 PM Care Teams Graphotype Operator Relationship Specialty Start Date End Date [address] [address] PCP - General 02/22/24
--- OUTSIDE RECORDS SUMMARY | 2024-07-21 17:32 | XMS_ITS | Encounter Summary ---
Author Organization [facility] Address [address] [place] [address] Care Team Providers Care Plastic Cablemaking Machine Operator Name Role Phone Maty Darnell MD Primary Care Provider [phone] Encounter Details Date Type Department Care Team (Late st Contact Info) Description 03/26/2024 Lab Requisition [facility] - Main Lab [address] [facility] [place] [address] Herminio Lee MD [address] [place] [address] Cellulitis, unspecified; Unspecified atrial fibrillation (CMS/HCC V24, CMS/HCC V28); Other roasterman (current) drug therapy Social History Tobacco Use [...] Cellulitis, unspecified Unspecified atrial fibrillation (CMS/HCC) Other roasterman (current) drug therapy BASIC METABOLIC PANEL Routine 03/26/2024 8:15 AM EST Cellulitis, unspecified Unspecified atrial fibrillation (CMS/HCC) Other roasterman (current) drug therapy documented in this encounter Results * Basic metabolic panel (03/26/2024 8:15 AM EST) Sodium 140 133 - 145 mmol/L LAB CHEMISTRY METHOD 03/26/2024 1:05 PM [facility] Potassium 4.1 3.5 - 5.5 mmol/L LAB CHEMISTRY METHOD 03/26/2024 1:05 PM [facility] Chloride 103 96 - 110 mmol/L LAB CHEMISTRY METHOD 03/26/2024 1:05 PM [facility] CO2 30 21 - 32 mmol/L LAB CHEMISTRY METHOD 03/26/2024 1:05 PM [facility] Anion Gap 7 3 - 11 LAB CHEMISTRY METHOD 03/26/2024 1:05 PM [facility] Glucose 88 70 - 100 mg/dL LAB CHEMISTRY METHOD 03/26/2024 1:05 PM [facility] BUN 13 5 - 25 mg/dL LAB CHEMISTRY METHOD 03/26/2024 1:05 PM [facility] Creatinine 0.95 0.70 - 1.30 mg/dL LAB CHEMISTRY METHOD 03/26/2024 1:05 PM [facility] eGFR 89 >=60 mL/min/1. 73m2 LAB CHEMISTRY METHOD 03/26/2024 1:05 PM [facility] Comment:Calculation based on the??Chronic Kidney Disease Epidemiology Collaboration (CKD-EPI) equation refit??without adjustment for race. BUN/Creatinine Ratio 13.7 LAB CHEMISTRY METHOD 03/26/2024 1:05 PM [facility] Calcium 8.7 8.5 - 10.5 mg/dL LAB CHEMISTRY METHOD 03/26/2024 1:05 PM [facility] Blood Venous blood specimen / Unknown Venipuncture / Unknown 03/26/2024 8:15 AM EST 03/26/2024 11:31 AM EST us Herminio Lee MD LAB BLOOD ORDERABLES Final R esult [facility] [address] [place] [address], * (ABNORMAL) Complete blood count (03/26/2024 8:15 AM EST) [facility] Signature WBC 6.6 4.8 - 10.8 K/mcL LAB HEMETOLOGY METHOD 03/26/2024 12:[address] [facility] RBC 4.20(L) 4.50 - 5.50 M/mcL LAB HEMETOLOGY METHOD 03/26/2024 12:43 PM [facility] Hemoglobin 12.8(L) 13.5 - 17.5 g/dL LAB HEMETOLOGY METHOD 03/26/2024 12:43 PM [facility] Hematocrit 42.1 42.0 - 54.0 % LAB HEMETOLOGY METHOD 03/26/2024 12:43 PM [facility] MCV 101.0(H) 79.0 - 98.0 FL LAB HEMETOLOGY METHOD 03/26/2024 12:43 PM [facility] MCH 30.7 27.0 - 32.0 pcg LAB HEMETOLOGY METHOD 03/26/2024 12:43 PM [facility] MCHC 30.4(L) 32.0 - 37.0 g/dL LAB HEMETOLOGY METHOD 03/26/2024 12:43 PM [facility] RDW 15.3(H) 11.0 - 15.0 % LAB HEMETOLOGY METHOD 03/26/2024 12:43 PM [facility] Platelets 246 130 - 400 K/mcL LAB HEMETOLOGY METHOD 03/26/2024 12:43 PM [facility] MPV 10.5 7.0 - 11.0 FL LAB HEMETOLOGY METHOD 03/26/2024 12:43 PM [facility] NRBC 0.0 <1.0 % LAB HEMETOLOGY METHOD 03/26/2024 12:[address] [facility] NRBC Absolute 0.00 <0.10 K/mcL LAB HEMETOLOGY METHOD 03/26/2024 12:[address] [facility] Blood Venous blood specimen / Unknown Venipuncture / Unknown 03/26/2024 8:15 AM EST 03/26/2024 11:31 AM EST us Herminio Lee MD LAB BLOOD ORDERABLES Final R esult [facility] [address] [place] [address], documented in this encounter Visit Diagnoses Diagnosis Cellulitis, unspecified Unspecified atrial fibrillation (CMS/HCC V24, CMS/HCC V28) Other roasterman (current) drug therapy documented in this encounter Additional Health Concerns Infection Onset Date Last Indicated Resolved Time Respiratory Rule-Out 05/26/2024 05/26/2024 025 3:08 PM EST Influenza 05/26/2024 05/26/2024 06/19/2024 7:04 PM EDT documented as of this encounter Care Teams Plastic Cablemaking Machine Operator Relationship Specialty Start Date End Date Maty Darnell MD [address] [place] [address] Dr [address] [place] PCP - General Internal Medicine 10/24/19 documented as of this encounter
[2024-07-21] MEDS: Furosemide 40 MG/4 ML VIAL IVPUSH (18:11)
[2024-07-21 18:41] VITALS: BP 134/85; PULSE 89; RESP 18; TEMP 36.1; O2SAT 93
[2024-07-21 19:12] VITALS: BP 145/63; PULSE 98; RESP 18; TEMP 36.7; O2SAT 96
[2024-07-21] MEDS: Zolpidem Tartrate 5 MG TABLET 10 MG PO (21:45)
[2024-07-21] MEDS: Gabapentin 400 MG CAPSULE PO (21:45)
[2024-07-21] MEDS: Triamcinolone Acet 0.5 % Cream 15 GM TUBE 1 APPL TOPICAL (21:45)
[2024-07-21] MEDS: Atorvastatin Calcium 40 MG TABLET PO (21:45)
[2024-07-21] MEDS: Apixaban 2.5 MG TABLET PO (21:45)
[2024-07-22 03:11] VITALS: BP 133/84; PULSE 82; RESP 18; TEMP 37.1; O2SAT 98
[2024-07-22] MEDS: oxyCODONE HCl Immed Release 5 MG TABLET PO ×5 (03:27→23:32)
[2024-07-22] MEDS: vancomycin HCL 1,250 MG in 0.9 % Sodium Chloride 250 ML 166.67 MG IV (03:30)
[2024-07-22] MEDS: Omeprazole 20 MG CAPSULE.DR PO (05:02)
[2024-07-22 07:00] LABS: Hematocrit 40.8 % (42.0-52.0); Hemoglobin 12.4 g/dl (14.0-18.0); Mean Corpuscular HGB Conc 30.4 g/dl (31.0-36.0); Mean Corpuscular Hemoglobin 27.6 pg (27.0-33.0); Mean Corpuscular Volume 90.7 fL (80.0-98.0); Mean Platelet Volume 11.2 fL (9.4-12.4); Platelet Count 173 X10*3/uL (160-400); Red Cell Distribution Width 17.3 % (11.0-16.0); White Blood Count 6.4 X10*3/uL (4.8-10.8)
[2024-07-22 07:06] LABS: Anion Gap 11 (12-20); Blood Urea Nitrogen 16 mg/dL (9-16); Calcium 8.4 mg/dL (8.4-10.2); Carbon Dioxide 27 mmol/L (22-29); Chloride 107 mmol/L (96-108); Creatinine Clr Calc Pharmacy 120.8; Estimated Glomerular Filt Rate > 60; Glucose Random 102 mg/dL (60-115); Magnesium 2.6 mg/dL (1.6-2.6); Potassium 4.2 mmol/L (3.3-5.1); Sodium 141 mmol/L (135-145)
[2024-07-22 07:34] VITALS: BP 131/94; PULSE 81; RESP 16; TEMP 36.4; O2SAT 98
[2024-07-22] MEDS: Spironolactone 25 MG TABLET 50 MG PO (08:45)
[2024-07-22] MEDS: Furosemide 40 MG/4 ML VIAL IVPUSH ×2 (08:45→17:04)
[2024-07-22] MEDS: Gabapentin 400 MG CAPSULE PO ×3 (08:46→21:04)
[2024-07-22] MEDS: Digoxin 0.25 MG TABLET PO (08:46)
[2024-07-22] MEDS: dilTIAZem HCL CD 120 MG CAP.ER.DEG PO (08:46)
[2024-07-22] MEDS: allopurinoL 100 MG TABLET PO (08:46)
[2024-07-22] MEDS: Triamcinolone Acet 0.5 % Cream 15 GM TUBE 1 APPL TOPICAL ×2 (08:46→21:06)
[2024-07-22] MEDS: Tamsulosin HCL 0.4 MG CAPSULE PO (08:46)
[2024-07-22] MEDS: Apixaban 2.5 MG TABLET PO ×2 (08:46→21:04)
[2024-07-22] MEDS: 0.9 % Sodium Chloride Flush 3 ML SYRINGE IVFLUSH ×3 (08:46→21:11)
--- NOTE | 2024-07-22 08:51 | MHC.CM.PN ---
Addendum entered by Jannette Moreno RN 07/22/24 13:45: PT rec STR. Preferences 1) [facility] 2) [facility]. Referrals sent. Addendum entered by Jannette Moreno RN 07/22/24 09:04: This CM spoke w/ [facility] CM Anna [phone] ext [phone]. She states patient has not requested [employer] services. Will send RN to assess for additional service needs on dc. Original Note: IMM delivered. Patient lives at home alone. Denies use of any DME. Active w/ [facility]. Reports he is currently managing his ADL's but is still working w/ [facility] for [employer] [facility]. Message to liaison to follow up - awaiting response. Recent stay at [facility] for [facility]. Reports he was dc'd with VNA in place, but cannot recall name of VNA. Message to [facility] - awaiting response. PCP @ [facility] but would like to switch to an [facility] provider. Brochure provided - patient will call today to schedule appt. HCP on file and verified. DP: PT eval pending. Patient's goal is back to [facility] @ [facility] via BLS. CM will continue to follow.
[2024-07-22 11:05] VITALS: BP 131/94; PULSE 81; O2SAT 98
--- NOTE | 2024-07-22 12:23 | PHA.MEDREC ---
Addendum entered by Wily Torre [facility] 07/22/24 12:31: MED REC CHECKED BY [facility] Original Note: Pharmacy Consult ? Medication Reconciliation Pharmacy has completed the medication reconciliation. Spoke with patient and was informed that the patient has been in and out of nursing homes and has not had a PCP in a long time there for he stated he has not been keeping up with his meds that much but stated since his last discharge 06/22 there has not been any changed with any of them.
--- NOTE | 2024-07-22 14:22 | P.PNIM_ITS ---
Subjective Subjective Date of Service: 07/22/24 Interval History: seen and evaluated this morning feels little better improvement in erythema and swelling denies fever or chills Review of Systems Review of Systems: Yes all other systems are reviewed and are negative Physical Exam 2 Vital Signs: Vital Signs: Last Vital Signs Temp 97.5 F 07/22/24 07:34 Pulse 81 07/22/24 11:05 Resp 16 07/22/24 07:34 BP 131/94 H 07/22/24 11:05 Pulse Ox 98 07/22/24 11:05 O2 Del Method Room Air 07/22/24 07:34 BMI result Body Mass Index 41.6 Const: Other: Constitutional : Awake, interactive, not in distress Neck : Normal inspection, Supple Cardiovascular : RRR, no JVP, no lower extremity edema Respiratory : good bilateral air entry, no crackles, wheezes or rhonchi Gastrointestinal: soft, lax, Normal bowel sounds, Non tender Skin : Warm, Dry, LLE erythema and swelling noticed, tender to touch, warm with skin sloughing and small open wounds Neurological : Alert & oriented x3, No focal deficit Objective Data Active Medications Acetaminophen (Acetaminophen 325 Mg Tablet) 650 mg PO Q6H PRN PRN Reason: Pain, Mild 1-3,fever,headache Allopurinol (Allopurinol 100 Mg Tablet) 100 mg PO DAILY [facility] Last Admin: 07/22/24 08:46 Dose: 100 mg Documented By: BOB Apixaban (Apixaban 2.5 Mg Tablet) 2.5 mg PO BID [facility] Last Admin: 07/22/24 08:46 Dose: 2.5 mg Documented By: BOB Atorvastatin Calcium (Atorvastatin Calcium 40 Mg Tablet) 40 mg PO BEDTIME [facility] Last Admin: 07/21/24 21:45 Dose: 40 mg Documented By: DANIE Calcium Carbonate (Calcium Carbonate 750 Mg Tab.Chew) 750 mg PO Q4H PRN PRN Reason: Heartburn Digoxin (Digoxin 0.25 Mg Tablet) 0.25 mg PO DAILY [facility]; Protocol Last Admin: 07/22/24 08:46 Dose: 0.25 mg Documented By: BOB Diltiazem HCl (Diltiazem Hcl Cd 120 Mg Cap.Er.Deg) 120 mg PO DAILY [facility]; Protocol Last Admin: 07/22/24 08:46 Dose: 120 mg Documented By: BOB Furosemide (Furosemide 40 Mg/4 Ml Vial) 40 mg IVPUSH BID@0900,1800 [facility]; Protocol Last Admin: 07/22/24 08:45 Dose: 40 mg Documented By: BOB Gabapentin (Gabapentin 400 Mg Capsule) 400 mg PO TID [facility] Last Admin: 07/22/24 08:46 Dose: 400 mg Documented By: BOB Vancomycin HCl 1,250 mg/ (Sodium Chloride) 250 mls @ 166.667 mls/hr IV Q12H [facility] Last Infusion: 07/22/24 05:04 Dose: Infused Documented By: DANIE Magnesium Hydroxide (Milk Of Magnesia 30 Ml Oral.Susp) 30 ml PO DAILY PRN PRN Reason: Constipation Melatonin (Melatonin 3 Mg Tablet) 6 mg PO BEDTIME PRN PRN Reason: Insomnia Omeprazole (Omeprazole 20 Mg Capsule.Dr) 20 mg PO DAILY@0630 [facility] Last Admin: 07/22/24 05:02 Dose: 20 mg Documented By: DANIE Oxycodone HCl (Oxycodone Hcl Immed Release 5 Mg Tablet) 5 mg PO Q6H PRN PRN Reason: Pain, Severe (Pain Scale 7-10) Last Admin: 07/22/24 09:32 Dose: 5 mg Documented By: BOB Pharmacy Consult (Consult Rx Vancomycin Dosing) 1 each MISCELLANE DAILY PRN PRN Reason: Consult order Sodium Chloride (0.9 % Sodium Chloride Flush 3 Ml Syringe) 3 ml IVFLUSH QSHIFT [facility] Last Admin: 07/22/24 08:46 Dose: 3 ml Documented By: BOB Spironolactone (Spironolactone 25 Mg Tablet) 50 mg PO DAILY [facility]; Protocol Last Admin: 07/22/24 08:45 Dose: 50 mg Documented By: BOB Tamsulosin HCl (Tamsulosin Hcl 0.4 Mg Capsule) 0.4 mg PO DAILY [facility] Last Admin: 07/22/24 08:46 Dose: 0.4 mg Documented By: BOB Triamcinolone Acetonide (Triamcinolone Acet 0.5 % Cream 15 Gm Tube) 1 appl TOPICAL BID [facility]; Protocol Last Admin: 07/22/24 08:46 Dose: 1 appl Documented By: BOB Zolpidem Tartrate (Zolpidem Tartrate 5 Mg Tablet) 10 mg PO BEDTIME PRN PRN Reason: Insomnia Last Admin: 07/21/24 21:45 Dose: 10 mg Documented By: DANIE Labs 07/22/24 06:40 07/22/24 06:40 Labs: Laboratory Results - last 24 hr 07/21/24 07/21/24 07/22/24 14:36 16:11 06:40 MCV 88.7 90.7 MCH 27.9 27.6 MCHC 31.4 30.4 L RDW 17.2 H 17.3 H Plt Count 202 173 MPV 11.1 11.2 Immature Gran % (Auto) 0.7 H Neut % (Auto) 80.9 H Lymph % (Auto) 8.8 L [place] % (Auto) 8.9 Eos % (Auto) 0.2 Baso % (Auto) 0.5 Lymph # (Auto) 0.8 L [place] # (Auto) 0.8 Eos # (Auto) 0.0 Baso # (Auto) 0.0 Abs Immat Gran (auto) 0.06 H Absolute Neuts (auto) 7.0 Absolute Nucleated RBC 0.000 0.000 Nucleated RBC % (auto) 0.0 0.0 ESR 28 H Anion Gap 11 L 11 L Estim Creat Clear Calc 134.7 120.8 Estimated GFR > 60 > 60 Random Glucose 76 102 Calcium 8.8 8.4 Magnesium 2.6 Total Bilirubin 0.3 AST 28 ALT 37 Alkaline Phosphatase 85 C-Reactive Protein 0.67 H Total Protein 6.8 Albumin 3.4 L Urine Color Yellow Urine Appearance Clear Urine pH 8.5 Ur Specific [place] 1.015 Urine Protein Negative Urine Glucose (UA) Negative Urine Ketones Negative Urine Blood Negative Urine Nitrite Negative Ur Leukocyte Esterase Trace H Urine RBC 0-2 Urine WBC 0-5 Ur Squamous Epith Cells 0-2 Urine Bacteria None Seen Hyaline Casts 0-2 Assessment and Plan (1) Cellulitis of right lower extremity: Status: Acute (2) Morbid obesity: Status: Acute Plan 64M PMH chronic venous stasis right greater than left, paroxysmal AFib on Eliquis, chronic diastolic CHF, history of pulmonary embolism on Eliquis, hypertension, hyperlipidemia, chronic back pain with opiate dependence, mood disorder, morbid obese presented with right lower extremity erythema Acute recurrent right lower extremity cellulitis in the background of chronic venous stasis Continue vanc iv local Steroids and local compression will diurese with iv lasix follow Vanco trough LOW wrap apply steroid Chronic diastolic CHF Continue Aldactone and lasix Paroxysmal AFib diltiazem, Eliquis Morbid obesity Weight loss Chronic back pain Continue oxycodone BPH Flomax Gout Allopurinol History of PE on Eliquis Full Code patient with possible mrsa cellulitis about 50% of limb, needing iv abx, therefore expected to require overnight inpatient stay. Quality Stroke Does the patient have a stroke diagnosis?: No VTE Prior VTE?: Yes VTE Risk Level:: Medical - moderate - high VTE Device Contraindication: Treatment Not Indicated VTE Drug Contraindication: N/A - Med Ordered
[2024-07-22 15:06] VITALS: BP 121/75; PULSE 103; RESP 18; TEMP 36.3; O2SAT 97
[2024-07-22 15:36] LABS: Vancomycin Random 14.5 mcg/mL (15-20)
[2024-07-22] MEDS: vancomycin HCL 1,000 MG in 0.9 % Sodium Chloride 250 ML 270 MG IV (17:04)
[2024-07-22] MEDS: Acetaminophen 325 MG TABLET 650 MG PO ×2 (17:16→23:32)
[2024-07-22 19:11] VITALS: BP 119/72; PULSE 86; RESP 18; TEMP 36.7; O2SAT 96
[2024-07-22] MEDS: Atorvastatin Calcium 40 MG TABLET PO (21:04)
[2024-07-22] MEDS: Zolpidem Tartrate 5 MG TABLET 10 MG PO (21:05)
[2024-07-23 03:34] VITALS: BP 109/76; PULSE 87; RESP 18; TEMP 36.4; O2SAT 97
[2024-07-23] MEDS: Omeprazole 20 MG CAPSULE.DR PO (05:52)
[2024-07-23] MEDS: oxyCODONE HCl Immed Release 5 MG TABLET PO ×4 (05:55→16:16)
[2024-07-23] MEDS: Acetaminophen 325 MG TABLET 650 MG PO ×2 (05:55→11:59)
[2024-07-23] MEDS: vancomycin HCL 1,000 MG in 0.9 % Sodium Chloride 250 ML 270 MG IV (05:56)
[2024-07-23 06:27] LABS: MANUAL DIFF FLAG NO
[2024-07-23 06:43] LABS: Basophils Absolute Auto 0.1 X10*3/uL (0.0-0.2); Basophils Percent Auto 0.9 % (0-2); Eosinophils Absolute Auto 0.2 X10*3/uL (0.0-0.4); Eosinophils Percent Auto 2.2 % (0-4); Hematocrit 44.7 % (42.0-52.0); Hemoglobin 13.6 g/dl (14.0-18.0); Imm Gran Abs Auto 0.06 X10*3/uL (0.00-0.03); Imm Gran Pct Auto 0.9 % (0.0-0.4); Lymphocytes Absolute Auto 1.1 X10*3/uL (1.2-4.9); Lymphocytes Percent Auto 15.2 % (20-40); Mean Corpuscular HGB Conc 30.4 g/dl (31.0-36.0); Mean Corpuscular Hemoglobin 27.9 pg (27.0-33.0); Mean Corpuscular Volume 91.6 fL (80.0-98.0); Mean Platelet Volume 11.4 fL (9.4-12.4); Monocytes Absolute Auto 0.5 X10*3/uL (0.1-1.2); Monocytes Percent Auto 6.5 % (2-11); Neutrophils Absolute Auto 5.2 x10*3/uL (2.0-8.3); Neutrophils Percent Auto 74.3 % (45-73); Platelet Count 200 X10*3/uL (160-400); Red Blood Count 4.88 X10*6/uL (4.60-5.80); Red Cell Distribution Width 17.3 % (11.0-16.0)
[2024-07-23 07:01] LABS: Anion Gap 12 (12-20); Blood Urea Nitrogen 22 mg/dL (9-16); Calcium 8.9 mg/dL (8.4-10.2); Carbon Dioxide 31 mmol/L (22-29); Chloride 103 mmol/L (96-108); Creatinine Clr Calc Pharmacy 116.7; Estimated Glomerular Filt Rate > 60; Glucose Random 94 mg/dL (60-115); Potassium 4.1 mmol/L (3.3-5.1); Sodium 142 mmol/L (135-145)
[2024-07-23 07:02] LABS: Creatinine Clr Calc Pharmacy 116.7; Estimated Glomerular Filt Rate > 60
[2024-07-23 07:41] VITALS: BP 141/95; PULSE 77; RESP 16; TEMP 36; O2SAT 97
[2024-07-23] MEDS: Spironolactone 25 MG TABLET 50 MG PO (08:15)
[2024-07-23] MEDS: allopurinoL 100 MG TABLET PO (08:16)
[2024-07-23] MEDS: Furosemide 40 MG/4 ML VIAL IVPUSH (08:16)
[2024-07-23] MEDS: Apixaban 2.5 MG TABLET PO (08:16)
[2024-07-23] MEDS: dilTIAZem HCL CD 120 MG CAP.ER.DEG PO (08:16)
[2024-07-23] MEDS: Gabapentin 400 MG CAPSULE PO ×2 (08:16→14:26)
[2024-07-23] MEDS: Tamsulosin HCL 0.4 MG CAPSULE PO (08:16)
[2024-07-23] MEDS: Digoxin 0.25 MG TABLET PO (08:16)
[2024-07-23] MEDS: 0.9 % Sodium Chloride Flush 3 ML SYRINGE IVFLUSH ×2 (08:18→15:13)
[2024-07-23] MEDS: Triamcinolone Acet 0.5 % Cream 15 GM TUBE 1 APPL TOPICAL (08:19)
[2024-07-23 10:53] VITALS: PULSE 77; O2SAT 97
--- NOTE | 2024-07-23 12:38 | MHC.CM.PN ---
Addendum entered by Jannette Moreno RN 07/23/24 14:57: Correction - patient accepted bed at [facility]. Per MD medically cleared for dc. BLS transport scheduled for 4pm. Patient, RN and MD aware. Original Note: Patient accepted bed at [facility]. ? dc later today vs tomorrow. CM will continue to follow.
--- NOTE | 2024-07-23 14:27 | PM.DS ---
DS: Providers Provider Date of Service: 07/23/24 Date of admission: 07/21/24 15:53 Date of discharge: 07/23/24 Primary care physician: None Physician Consults: 07/23/24 09:26 Consult to Vascular Surgery Routine Consulting Provider: [facility] V[facility] Services Reason for consultation: RLE edema, ulcers, persistent pain, recurrent infection DS: Diagnosis Discharge Diagnosis (1) Cellulitis of right lower extremity: Status: Acute (2) Morbid obesity: Status: Acute (3) Cellulitis of leg, right: Status: Acute DS: Summary Hospital Course Hospital Course: Admission note HPI 64M PMH chronic venous stasis right greater than left, paroxysmal AFib on Eliquis, chronic diastolic CHF, history of pulmonary embolism on Eliquis, hypertension, hyperlipidemia, chronic back pain with opiate dependence, mood disorder, morbid obese presented with right lower extremity erythema. Patient has had multiple episodes of admissions for right lower extremity cellulitis, most recently June 2024 treated with Augmentin and doxycycline on discharge. Reports improvement, then came back to the ED 07/15/24 and can prescribed Augmentin and doxycycline at reports this time not improving so came back to the ED. Denies any fever or chills. Hospital course The patient was admitted for treatment of Acute recurrent right lower extremity cellulitis in the background of chronic venous stasis. Treated with IV Vancomycin, local Steroids and local compression along with diuresis with IV lasix with good response over the course of hospital stay. advised to continue with Doxycycline for 1 week upon discharge. continue cream and ryan wrap. Vascular sugery evaluated the patient and recommended outpatient follow up for further evaluation and treatment. For Chronic diastolic CHF will continue Aldactone and lasix For Paroxysmal AFib continue diltiazem, Eliquis For Morbid obesity he was advised Weight loss For Chronic back pain to continue PRN oxycodone Discharge plan Low sodium diet restrict water intake Take Torsemide as prescribed and Lasix as needed for edema Monitor weight at home Doxycycline for skin infection Apply cream for itching and irritation Follow with Vascular surgery as outpatient; Dr Galarza Time Attestation Discharge Coordination Time (in mins): 38 Quality: Safe Use of Opioids Does Pt have an Active Cancer Diagnosis on the Problem List?: No Quality: Stroke Does the patient have a stroke diagnosis?: No Physical Exam Vital Signs: Vital Signs: Last Vital Signs Temp 96.8 F 07/23/24 07:41 Pulse 77 07/23/24 10:53 Resp 16 07/23/24 07:41 BP 141/95 H 07/23/24 07:41 Pulse Ox 97 07/23/24 10:53 O2 Del Method Room Air 07/23/24 07:41 BMI result Body Mass Index 41.6 Const: Other: Constitutional : Awake, interactive, not in distress Neck : Normal inspection, Supple Cardiovascular : RRR, no JVP, no lower extremity edema Respiratory : good bilateral air entry, no crackles, wheezes or rhonchi Gastrointestinal: soft, lax, Normal bowel sounds, Non tender Skin : Warm, Dry, LLE erythema and swelling resolved, no tenderness, small open wounds , chronic changes related to stasis dermatitis Neurological : Alert & oriented x3, No focal deficit DS: Data Data Completed and Pending Completed studies during hospitalization [Text1]: Procedures Detoxification Services for Substance Abuse Treatment (04/19/22) Insertion of Infusion Device into Right Atrium, Percutaneous Approach (02/08/21) Repair Abdominal Wall, Open Approach (02/08/21) Respiratory Ventilation, 24-96 Consecutive Hours (02/08/21) Labs on day of discharge: Laboratory Results - last 24 hr 07/22/24 07/23/24 07/23/24 14:41 06:24 06:24 WBC 7.0 RBC 4.88 Hgb 13.6 L Hct 44.7 MCV 91.6 MCH 27.9 MCHC 30.4 L RDW 17.3 H Plt Count 200 MPV 11.4 Immature Gran % (Auto) 0.9 H Neut % (Auto) 74.3 H Lymph % (Auto) 15.2 L [place] % (Auto) 6.5 Eos % (Auto) 2.2 Baso % (Auto) 0.9 Lymph # (Auto) 1.1 L [place] # (Auto) 0.5 Eos # (Auto) 0.2 Baso # (Auto) 0.1 Abs Immat Gran (auto) 0.06 H Absolute Neuts (auto) 5.2 Absolute Nucleated RBC 0.000 Nucleated RBC % (auto) 0.0 Sodium 142 Potassium 4.1 Chloride 103 Carbon Dioxide 31 H Anion Gap 12 BUN 22 H Creatinine 0.90 0.90 Estim Creat Clear Calc 116.7 Estimated GFR Random Glucose Calcium Random Vancomycin 14.5 L 07/23/24 07/23/24 06:24 06:24 WBC RBC Hgb Hct MCV MCH MCHC RDW Plt Count MPV Immature Gran % (Auto) Neut % (Auto) Lymph % (Auto) [place] % (Auto) Eos % (Auto) Baso % (Auto) Lymph # (Auto) [place] # (Auto) Eos # (Auto) Baso # (Auto) Abs Immat Gran (auto) Absolute Neuts (auto) Absolute Nucleated RBC Nucleated RBC % (auto) Sodium Potassium Chloride Carbon Dioxide Anion Gap BUN Creatinine Estim Creat Clear Calc 116.7 Estimated GFR > 60 > 60 Random Glucose 94 Calcium 8.9 Random Vancomycin Preliminary micro results at discharge 07/21/24 14:58 Blood Culture - Preliminary Blood - Venous No growth after 24 hours. 07/21/24 14:36 Blood Culture - Preliminary Blood - Venous No growth after 24 hours. Imaging Chest x-ray: My impression: IMPRESSION: Unremarkable motion limited CT abdomen and pelvis as above. Discharge Plan Discharge Anticipated Discharge Date/Time: 07/23/24 14:17 Patient Disposition: [facility] Discharge Diagnosis: Right lower extremity cellulitis Referrals: Physician,None [Primary Care Provider] - 1 Week Discharge Medications: New triamcinolone acetonide 0.5 % Cream 1 appl topical BID Qty: 15 0RF Protocol: Apply to: Apply to: rle doxycycline monohydrate 100 mg capsule 100 mg PO BID Qty: 14 0RF Continued omeprazole 20 mg Capsule,Delayed Release(Dr/Ec) 20 mg PO DAILY@0630 diltiazem HCl 120 mg Capsule,Extended Release 24hr 120 mg PO DAILY atorvastatin 40 mg Tablet 40 mg PO BEDTIME sennosides [senna] 8.6 mg Tablet 8.6 mg PO BID PRN (Reason: Constipation) venlafaxine 37.5 mg Capsule,Extended Release 24hr 37.5 mg PO DAILY acetaminophen 325 mg Tablet 325 mg PO QID PRN (Reason: Pain) torsemide 20 mg Tablet 20 mg PO DAILY gabapentin 400 mg Capsule 400 mg PO TID allopurinol 100 mg Tablet 100 mg PO DAILY digoxin 250 mcg (0.25 mg) Tablet 250 mcg PO DAILY tamsulosin 0.4 mg Capsule 0.4 mg PO DAILY furosemide 80 mg Tablet 80 mg PO BID PRN (Reason: Edema) albuterol sulfate [Ventolin HFA] 90 mcg/actuation Hfa Aerosol Inhaler 2 puff INHALATION Q6H PRN (Reason: Shortness Of Breath Or Wheezing) spironolactone 50 mg Tablet 50 mg PO DAILY vilazodone 20 mg Tablet 20 mg PO DAILY Rx Instructions: must administer with a meal/food Eliquis 2.5 mg Tablet 2.5 mg PO BID potassium chloride 20 mEq Tablet Extended Release 20 meq PO DAILY zolpidem 10 mg Tablet 10 mg PO BEDTIME PRN (Reason: Sleep) Qty: 10 0RF oxycodone 5 mg Tablet 5 mg PO QID PRN (Reason: Pain) Qty: 20 0RF Discharge Orders: Discharge Order (Routine); Ordered 07/23/24 Ordered By: Wanda Saucedo Diet: Low salt diet Activity on Discharge: As tolerated Stand Alone Forms: Patient Portal Discharge page Print Language: Unable To Collect Care Plan Goals: Low sodium diet restrict water intake Take Torsemide as prescribed and Lasix as needed for edema Monitor weight at home Doxycycline for skin infection Apply cream for itching and irritation Follow with Vascular surgery as outpatient; Dr Galarza Health Concerns: Cellulitis Plan of Treatment: Antibiotics Assessment: as above Patient Instructions: Cellulitis (DC)
--- NOTE | 2024-07-23 14:38 | PM.CNGS ---
History of Present Illness Consult details Consult date: 07/23/24 Narrative: We were consulted on Bennie, for concerns of right lower extremity swelling, cellulitis, and wounds. He presented to the ER on 07/21 with concerns of his right lower extremity redness, ? cellulitis. He has a medical hx pertinent for Afib with RVR, DVT with PE appx 15y ago on Eliquis, AUD, diastolic HF, thoracic aortic aneurysm, depression, HTN, HLD, chronic back pain dependent on opioids, and GI surgeries 2y ago. He recently was in the ER, on 07/15, diagnosed with cellulitis, and discharged on PO Augmentin and Doxy. He states he felt a little better taking these but the redness and swelling continued. He was admitted for cellulitis and started on IV Vanco. He states that he started with this repetitive cycle of cellulitis appx 2y ago. He states he is getting frustrated because he states the redness gets worse, he gets blisters, they pop, heal over, and then the cycle begins again. He states he has been seen multiple times over the last couple of years for this and it has not gotten better, it has gotten worse. He states that he is getting throbbing from the mid-calf to the top of his foot. He does state that his right foot has no feeling and he has decreased ROM in that foot, making him unable to drive. He denies any injuries to the leg/foot. He states he is not a diabetic, does not smoke, and occasionally drinks alcohol. Review of Systems Constitutional: Constitutional: Reports as per HPI and Denies weakness ENT: Reports Normal hearing present and Denies dizziness Cardiovascular: Cardiovascular: Reports as per HPI, Denies chest pain, Denies chest pain at rest, Denies chest pain with activity, Denies dyspnea and Denies dyspnea on exertion Respiratory: Respiratory: Reports as per HPI, Denies cough, Denies dyspnea and Denies dyspnea on exertion Gastrointestinal: Gastrointestinal: Reports as per HPI, Denies abdominal pain, Denies nausea and Denies vomiting Musculoskeletal: Musculoskeletal: Denies numbness Integumentary/Breasts: Skin/Breast: Reports as per HPI, Denies erythema and Denies wounds Neurologic: Reports Normal hearing present, Denies dizziness, Denies numbness, Denies Sensory deficit (Neuro) and Denies weakness Psychiatric: Psychiatric: Reports no additional psychiatric complaints Endocrine: Endocrine: Reports no additional endocrine complaints [facility] Past Medical History Medical History Atrial fibrillation with RVR Chest pain Atrial fibrillation with RVR Sciatica ARIAN (acute kidney injury) Atrial fibrillation with RVR Alcohol withdrawal delirium Oral thrush Metabolic acidosis with increased anion gap and accumulation of organic acids Alcohol withdrawal Heart failure with left ventricular ejection fraction greater than or equal to 50 percent Incarcerated incisional hernia Atrial fibrillation with RVR Alcohol dependence Alcohol intoxication Thoracic aortic aneurysm Chronic atrial fibrillation Toenail deformity Dyslipidemia Anemia History of alcohol abuse Morbid obesity Insomnia Depression Pulmonary embolism Obesity Family History Family History Mother No problems noted. Father No problems noted. Family/Other Substance use disorder Surgical History Surgical History History of incisional hernia repair S/P cholecystectomy History of inguinal hernia repair Hx of gastric bypass Social History Social History Household Members: None Household Members Other:: lives with mother Housing: Apartment Do you presently have visiting nurse or other home services: No Unable to assess alcohol history related to: Unable to respond Alcohol intake: former Year quit: 2019 Comment: pt refusing alarms Patient Tobacco Use Status: Never used Tobacco Smoked in Last 30 Days: No e-Cigarette/Vaping Use: Never Used Patient Interested in Nicotine Replacement: No Patient Given Instructions on How to Stop Smoking: No Second Hand Smoke Exposure: No Use of substances other than those prescribed or required for medical reasons: No Substance Use Type: Other Currently Displaying Signs/Symptoms of Drug Intoxication Withdrawal: No Any prior treatment program specific to substance use: No Have you been hit, kicked, punched, or otherwise hurt by someone within the past year? If so, by whom?: No Do you feel safe in your current relationship?: No Current Relationship Is there a partner from a previous relationship who is making you feel unsafe now?: No Are you made to feel afraid or neglected: No Advance Directives: Yes Advance Directives on File: Yes Advance Directives Date on File: 03/13/21 Do you have a plan to hurt others: No Plan Recently lost weight without trying: No Eating poorly because of decreased appetite: No service: No Current occupational status: retired [employer] Allergies Allergy/AdvReac Type Severity Reaction Status Date / Time No Known Allergies Allergy Verified 07/21/24 14:07 Active Medications: Current Medications Acetaminophen (Acetaminophen 325 Mg Tablet) 650 mg PO Q6H [facility] Last Admin: 07/23/24 11:59 Dose: 650 mg Allopurinol (Allopurinol 100 Mg Tablet) 100 mg PO DAILY [facility] Last Admin: 07/23/24 08:16 Dose: 100 mg Apixaban (Apixaban 2.5 Mg Tablet) 2.5 mg PO BID [facility] Last Admin: 07/23/24 08:16 Dose: 2.5 mg Atorvastatin Calcium (Atorvastatin Calcium 40 Mg Tablet) 40 mg PO BEDTIME [facility] Last Admin: 07/22/24 21:04 Dose: 40 mg Calcium Carbonate (Calcium Carbonate 750 Mg Tab.Chew) 750 mg PO Q4H PRN PRN Reason: Heartburn Digoxin (Digoxin 0.25 Mg Tablet) 0.25 mg PO DAILY [facility]; Protocol Last Admin: 07/23/24 08:16 Dose: 0.25 mg Diltiazem HCl (Diltiazem Hcl Cd 120 Mg Cap.Er.Deg) 120 mg PO DAILY [facility]; Protocol Last Admin: 07/23/24 08:16 Dose: 120 mg Furosemide (Furosemide 40 Mg/4 Ml Vial) 40 mg IVPUSH BID@0900,1800 [facility]; Protocol Last Admin: 07/23/24 08:16 Dose: 40 mg Gabapentin (Gabapentin 400 Mg Capsule) 400 mg PO TID [facility] Last Admin: 07/23/24 14:26 Dose: 400 mg Vancomycin HCl 1,000 mg/ (Sodium Chloride) 270 mls @ 270 mls/hr IV Q12H [facility] Last Infusion: 07/23/24 07:10 Dose: Infused Magnesium Hydroxide (Milk Of Magnesia 30 Ml Oral.Susp) 30 ml PO DAILY PRN PRN Reason: Constipation Melatonin (Melatonin 3 Mg Tablet) 6 mg PO BEDTIME PRN PRN Reason: Insomnia Omeprazole (Omeprazole 20 Mg Capsule.Dr) 20 mg PO DAILY@0630 [facility] Last Admin: 07/23/24 05:52 Dose: 20 mg Oxycodone HCl (Oxycodone Hcl Immed Release 5 Mg Tablet) 5 mg PO RQ4H PRN PRN Reason: Pain, Severe (Pain Scale 7-10) Last Admin: 07/23/24 14:26 Dose: 5 mg Pharmacy Consult (Consult Rx Vancomycin Dosing) 1 each MISCELLANE DAILY PRN PRN Reason: Consult order Sodium Chloride (0.9 % Sodium Chloride Flush 3 Ml Syringe) 3 ml IVFLUSH QSHIFT [facility] Last Admin: 07/23/24 08:18 Dose: 3 ml Spironolactone (Spironolactone 25 Mg Tablet) 50 mg PO DAILY [facility]; Protocol Last Admin: 07/23/24 08:15 Dose: 50 mg Tamsulosin HCl (Tamsulosin Hcl 0.4 Mg Capsule) 0.4 mg PO DAILY [facility] Last Admin: 07/23/24 08:16 Dose: 0.4 mg Triamcinolone Acetonide (Triamcinolone Acet 0.5 % Cream 15 Gm Tube) 1 appl TOPICAL BID [facility]; Protocol Last Admin: 07/23/24 08:19 Dose: 1 appl Zolpidem Tartrate (Zolpidem Tartrate 5 Mg Tablet) 10 mg PO BEDTIME PRN PRN Reason: Insomnia Last Admin: 07/22/24 21:05 Dose: 10 mg Home Medications ?Medication ?Instructions ?Recorded ?Confirmed ?Last Taken ?Type acetaminophen 325 mg tablet 325 mg PO QID PRN Pain 06/19/24 07/22/24 Unknown History albuterol sulfate 90 mcg/actuation 2 puff inhalation Q6H PRN 06/19/24 07/22/24 Unknown History aerosol inhaler (Ventolin HFA) Shortness Of Breath Or Wheezing allopurinol 100 mg tablet 100 mg PO DAILY 06/19/24 07/22/24 Unknown History apixaban 2.5 mg tablet (Eliquis) 2.5 mg PO BID 06/19/24 07/22/24 Unknown History atorvastatin 40 mg tablet 40 mg PO BEDTIME 06/19/24 07/22/24 Unknown History digoxin 250 mcg (0.25 mg) tablet 250 mcg PO DAILY 06/19/24 07/22/24 Unknown History diltiazem HCl 120 mg 120 mg PO DAILY 06/19/24 07/22/24 Unknown History capsule,extended release 24 hr furosemide 80 mg tablet 80 mg PO BID PRN Edema 06/19/24 07/22/24 Unknown History gabapentin 400 mg capsule 400 mg PO TID 06/19/24 07/22/24 Unknown History omeprazole 20 mg capsule,delayed 20 mg PO DAILY@0630 06/19/24 07/22/24 Unknown History release potassium chloride 20 mEq 20 meq PO DAILY 06/19/24 07/22/24 Unknown History tablet,extended release sennosides 8.6 mg tablet (senna) 8.6 mg PO BID PRN Constipation 06/19/24 07/22/24 Unknown History spironolactone 50 mg tablet 50 mg PO DAILY 06/19/24 07/22/24 Unknown History tamsulosin 0.4 mg capsule 0.4 mg PO DAILY 06/19/24 07/22/24 Unknown History torsemide 20 mg tablet 20 mg PO DAILY 06/19/24 07/22/24 Unknown History venlafaxine 37.5 mg 37.5 mg PO DAILY 06/19/24 07/22/24 Unknown History capsule,extended release 24 hr vilazodone 20 mg tablet 20 mg PO DAILY 06/19/24 07/22/24 Unknown History Physical Exam Vital Signs: Vital Signs: Last Vital Signs Temp 96.8 F 07/23/24 07:41 Pulse 77 07/23/24 10:53 Resp 16 07/23/24 07:41 BP 141/95 H 07/23/24 07:41 Pulse Ox 97 07/23/24 10:53 O2 Del Method Room Air 07/23/24 07:41 BMI result Body Mass Index 41.6 Const: General: comfortable and no acute distress Orientation/consciousness: patient oriented x3 HEENT: Ears: hearing grossly normal bilaterally Resp: Effort & Inspection: normal respiratory effort and able to speak in complete sentences Auscultation: clear to auscultation bilaterally Cardio: Rate: regular rate Rhythm: regular rhythm Heart sounds: S1 normal heart sound present and S2 normal heart sound present Bruits: no abdominal aortic bruits, no carotid bruits, no femoral bruits and no renal bruits GI: Palpation (GI): No Abdominal aortic bruit present Neuro: General: patient oriented x3 Cranial nerves: Yes Normal hearing present Sensory Exam: No Sensory deficit (Neuro) Extrem: Other: Right lower extremity: +2 pitting edema noted, from the pretibial area to the toes. Erythematous discoloration noted from the pretibial area to the toes. Small blisters noted on the anterior aspect in the mid-calf area, flat in appearance, no weeping/bleeding/discharge noted. Palpable DP pulse noted. Foot warm to the touch. Left lower extremity: +1/2 pitting edema noted, from the mid-calf to the ankles. Erythematous discoloration noted from the mid-calf to the toes. No blisters/wounds noted. Palpable DP pulse. Results Labs 07/23/24 06:24 07/23/24 06:24 Labs: Abnormal lab results 07/22/24 07/23/24 Range/Units 14:41 06:24 Hgb 13.6 L (14.0-18.0) g/dl MCHC 30.4 L (31.0-36.0) g/dl RDW 17.3 H (11.0-16.0) % Immature Gran % (Auto) 0.9 H (0.0-0.4) % Neut % (Auto) 74.3 H (45-73) % Lymph % (Auto) 15.2 L (20-40) % Lymph # (Auto) 1.1 L (1.2-4.9) X10*3/uL Abs Immat Gran (auto) 0.06 H (0.00-0.03) X10*3/uL Carbon Dioxide 31 H (22-29) mmol/L BUN 22 H (9-16) mg/dL Random Vancomycin 14.5 L (15-20) mcg/mL Short CBC 07/23/24 Range/Units 06:24 WBC 7.0 (4.8-10.8) X10*3/uL Hgb 13.6 L (14.0-18.0) g/dl Hct 44.7 (42.0-52.0) % Plt Count 200 (160-400) X10*3/uL BMP 07/23/24 07/23/24 06:24 06:24 Sodium 142 Potassium 4.1 Chloride 103 Carbon Dioxide 31 H BUN 22 H Creatinine 0.90 0.90 Calcium 8.9 Urine 07/21/24 Range/Units 16:11 Urine Color Yellow Urine Appearance Clear Urine pH 8.5 (5.0-9.0) Ur Specific [place] 1.015 (1.005-1.025) Urine Protein Negative (Neg-Trace) mg/dL Urine Glucose (UA) Negative (Negative) mg/dL All other labs normal. Assessment and Plan (1) Cellulitis of right lower extremity: Status: Acute Plan We were consulted on Bennie for concerns of ongoing and worsening right lower extremity swelling and cellulitis with blistering. He states this has been going on for over 2y now, in a cyclic-type pattern. He presented to the ER 2d ago with ongoing concerns of cellulitis. He was admitted and started on IV Abx. He denies any injuries/wounds to the area. We recommend wrapping his legs daily with Alexandro or wearing compression socks to help with the swelling. We would like him to follow up with us outpatient for further evaluation. There is no acute vascular surgical intervention at this point. We will continue to monitor. If there are any questions or concerns, please do not hesitate to reach out to us. Procedures Date of Service Date of Service: 07/23/24
[2024-07-23 15:24] LABS: Vancomycin Random 15.5 mcg/mL (15-20)
--- NOTE | 2024-07-23 15:28 | HE.PHANOTE ---
Re: Sandro Good renal function, but declining. Trough returned at 15.5. Continue current dose of 1gm q12h with predicted AUC 475, predicted trough 14.6. Next trough 07/24 @1500.
[2024-07-23 15:40] VITALS: BP 146/84; PULSE 99; RESP 18; TEMP 36.4; O2SAT 96
== END 2024-07-23 16:33 | disposition skilled nursing facility (03) | DRG 603 ==
LOC: HO.ED 15:32 → HO.EDOVER 16:09 → HO.S3 17:20
PROVIDERS: Admitting Provider Internal Medicine; Emergency Provider Emergency Medicine; Visit Provider Student in an Organized Health Care Education/Training Program
DX: L03.115 Cellulitis of right lower limb (principal); I50.32 Chronic diastolic (congestive) heart failure; Z68.41 Body mass index [BMI] 40.0-44.9, adult; I11.0 Hypertensive heart disease with heart failure; F10.20 Alcohol dependence, uncomplicated; M10.9 Gout, unspecified; N40.0 Benign prostatic hyperplasia without lower urinary tract symptoms; E66.01 Morbid (severe) obesity due to excess calories; Z71.3 Dietary counseling and surveillance; G89.29 Other chronic pain; M54.9 Dorsalgia, unspecified; I87.8 Other specified disorders of veins; I48.0 Paroxysmal atrial fibrillation; Z98.84 Bariatric surgery status; Z86.711 Personal history of pulmonary embolism; Z79.01 Long term (current) use of anticoagulants; Z79.899 Other long term (current) drug therapy
CPT/HCPCS: 36415; 80048; 80053; 80202; 81001; 82565; 83735; 85025; 85027; 85652; 86140; 87040; 97110; 97116; 97162; 99285; J1940; J3370; J3371

== ENCOUNTER → 2024-07-21 14:12 | Outpatient (BNV) | payer MEDICARE, MEDICAID, SELFPAY | PROVIDERS: Emergency Provider Emergency Medicine; Visit Provider Internal Medicine | DX: L03.115 Cellulitis of right lower limb (principal); I87.2 Venous insufficiency (chronic) (peripheral) | CPT/HCPCS: 99223; 99232; 99239 ==

== ENCOUNTER → 2024-07-21 15:53 | Outpatient (BNV) | payer MEDICARE, MEDICAID, SELFPAY | PROVIDERS: Admitting Provider Internal Medicine; Emergency Provider Emergency Medicine; Visit Provider Physician Assistant Surgical | DX: L03.115 Cellulitis of right lower limb (principal) | CPT/HCPCS: 99222 ==

== ENCOUNTER 2024-08-04 17:32 | Outpatient (REF) | payer MEDICAID, SELFPAY ==
--- OUTSIDE RECORDS SUMMARY | 2024-08-04 18:43 | XMS_ITS | Clinical Summary ---
Author Organization [facility] Address [address] [place] [address] Care Team Providers Care Skate Maker Name Role Phone Maty Darnell MD Primary Care Provider [phone] Allergies No known active allergies Medications Medication [...] Advance Directives For more information, please contact: [phone] Latest Code Status on File Code Status [...] in the following way:. . Care Teams Skate Maker Relationship Specialty Start Date End Date Maty Darnell MD [address] [place] [address] [address] [place] [address] PCP - General Internal Medicine 10/24/19
--- OUTSIDE RECORDS SUMMARY | 2024-08-04 18:43 | XMS_ITS | Encounter Summary ---
Author Organization [employer] Address [address] [place] [address] [address] [place] [address] Care Team Providers Care Lcac Operator Name Role Phone Rick Arcos MD Primary Care Prov ider Encounter Details Date Type Department Care Team (Latest Contact Info) Description 11/14/2021 Abstract [facility] CONVERSIONS Dental, Provider, DDS Social History Tobacco [...] on file documented as of this encounter Visit Diagnoses Not on filedocumented in this encounter Care Teams Lcac Operator Relationship Specialty Start Date End Date Rick Arcos MD [address] [place] [address] PCP - General Internal Medicine 05/28/24 Rodrick Arguello 06/09/24 documented as of this encounter
--- OUTSIDE RECORDS SUMMARY | 2024-08-04 18:44 | XMS_ITS | Clinical Summary ---
Author Organization [employer] Address [address] [facility] [address] [place] [address] Care Team Providers Care Boiler Tube Blower Name Role Phone Rick Arcos MD Primary [...] 11:21 AM EST): Patient lives on a [facility] [address] years [facility] Pmhx: Afib, severe neuropathy, Pshx: exploratory laparotomy due to obstruction 2019, stomach bypass 1994, deviated septum, prostate 1990's, plantar fasciatis both feet, All:- Meds: as above Encounters Date Type Department Care Team Description 07/21/[address] [facility] [address] [place] [address] Rick Arcos MD Nurse Triage 07/21/[address] [facility] [address] [place] [address] Rick Arcos MD Verbal order 07/21/[address] [facility] [address] [place] [address] Rick Arcos MD Durable Medical Equipment 07/20/[address] [facility] [address] [place] [address] Rick Arcos MD 07/17/2024 Telephone [facility] [address] [place] [phone] Rick Arcos MD Verbal Order 07/15/[address] [facility] [address] [place] [address] Rick Arcos MD Med Refill 07/15/[address] [facility] [address] [place] [address] Rick Arcos MD 07/15/[address] [facility] [address] [place] [address] Rick Arcos MD 07/15/2024 Telephone [facility] [address] [place] [address] Rick Arcos MD Nurse Triage 07/15/[address] [address] Rick Arcos MD Verbal Order 07/14/[address] [facility] [address] [place] [address] Rick Arcos MD Med Refill 07/14/[address] [address] Rick Arcos MD Medication Question 07/14/[address] [address] Rick Arcos MD verbal order 07/10/2024 Patient Outreach [address] [address] Rick Arcos MD Transition Of Care (Tcm) (HDF scheduled) 06/24/[address] [address] Rick Arcos MD Appointment Request 06/19/[address] [address] Rick Arcos MD verbal order 06/19/[address] [address] Rick Arcos MD Nurse Triage 06/18/2024 Patient Outreach [facility] [address] [place] [address] Rick Arcos MD Pre-visit Planning (SDOH will need to be completed in office. ) 06/10/[address] [facility] [address] [place] [address] Rick Arcos MD Record Request 06/09/[address] [address] Rick Arcos MD Care Coordination; Medication Question 06/05/[address] [address] Rick Arcos MD Verbal Orders 06/03/2024 Orders Only [facility] [address] [place] [address] Rick Arcos MD 06/03/[address] [facility] [address] [place] [address] Rick Arcos MD Prior Authorization 05/29/[address] [facility] [address] [place] [address] Barbara Velazquez, RN Other chronic pain 05/28/2024 Telephone [facility] [address] [place] [address] Barbara Velazquez RN 05/27/2024 Refill [facility] [address] [place] [address] Rick Arcos MD Other chronic pain (Primary Dx) 05/27/2024 Refill [facility] [address] [place], [place] [id number] Rick Arcos MD 05/22/2024 Orders Only [facility] [address] [place], [place] [id number] Rick Arcos MD Muscle spasm (Primary Dx) 05/11/2024 Telephone [facility] [address] [place] [address] Rick Arcos MD Medication Question from Last 3 Months Immunizations Name Administration [...] 10 :20 AM EDT Plan of Treatment Health Maintenance [...] Processed 9 N/A 05/31/2024 1:24 AM EST [facility] (CLIA #:[id number]) Comment:An empty collection kit was received in the laboratory. The patient will be contacted to initiate a new sample collection. Stool specimen (specimen) Rectal contents / Unknown 05/30/2024 10:41 AM EST Rick Genao MD LAB MOLECULAR DIAG NOSTICS ORDERABLES Final Result [facility] (CLIA #:[id number]) [address] [place] [address], from Last 3 Months Insurance [facility] STANDARD MEDICARE [facility] STAND ADULT Care Teams Boiler Tube Blower Relationship Specialty Start Date End Date Rick Arcos MD [address] [place] [id number] PCP - General Internal Medicine 05/28/24 Rodrick Arguello 06/09/24
--- OUTSIDE RECORDS SUMMARY | 2024-08-04 18:44 | XMS_ITS | Clinical Summary ---
Author Organization [address] Address [address] [place] [address] Phone Care Team Providers Care Housekeeper/Custodian/Laundry Worker Name Role Phone Maty Darnell MD Primary Care Provider [phone] Encounters Date Type Department Care Team Description 06/01/2024 Lab Requisition [facility] [address] [place] [phone] Herminio Lee MD Shortness of breath 05/26/2024 Lab Requisition [facility] [address] [place] [phone] Herminio Lee MD Acute cough; Fever, unspecified 05/25/2024 Lab Requisition [facility] [address] [place] [phone] Herminio Lee MD Essential (primary) hypertension; Fever, [...] 06/01/2024 10:03 AM EST Shortness of breath [id number], RSV, FLU A AND B QUALITATIVE RT-PCR, [...] K/mcL LAB HEMETOLOGY METHOD 06/01/2024 1:47 PM [facility] RBC 4.30(L) 4.50 - 5.50 M/mcL LAB HEMETOLOGY METHOD 06/01/2024 1:47 PM [facility] Hemoglobin 12.6(L) 13.5 - 17.5 g/dL LAB HEMETOLOGY METHOD 06/01/2024 1:47 PM [facility] Hematocrit 40.6(L) 42.0 - 54.0 % LAB HEMETOLOGY METHOD 06/01/2024 1:47 PM [facility] MCV 94.9 79.0 - 98.0 FL LAB HEMETOLOGY METHOD 06/01/2024 1:47 PM [facility] MCH 29.4 27.0 - 32.0 pcg LAB HEMETOLOGY METHOD 06/01/2024 1:47 PM [facility] MCHC 31.0(L) 32.0 - 37.0 g/dL LAB HEMETOLOGY METHOD 06/01/2024 1:47 PM [facility] RDW 15.2(H) 11.0 - 15.0 % LAB HEMETOLOGY METHOD 06/01/2024 1:47 PM [facility] Platelets 282 130 - 400 K/mcL LAB HEMETOLOGY METHOD 06/01/2024 1:47 PM [facility] MPV 10.6 7.0 - 11.0 FL LAB HEMETOLOGY METHOD 06/01/2024 1:47 PM EST [facility] NRBC 0.0 <1.0 % LAB HEMETOLOGY METHOD 06/01/2024 1:47 PM [facility] NRBC Absolute 0.00 <0.10 K/mcL LAB HEMETOLOGY METHOD 06/01/2024 1:47 PM [facility] Blood Venous blood specimen / Unknown Venipuncture / Unknown 06/01/2024 10:03 AM EST 06/01/2024 11:00 AM EST Herminio Lee MD LAB BLOOD ORDERABLES Final R esult [facility] [address] [place] [address], * Basic metabolic panel (06/01/2024 10:03 AM EST) Only the most recent of2 resultswithin the time period is included. Sodium 141 133 - 145 mmol/L LAB CHEMISTRY METHOD 06/01/2024 12:30 PM [facility] Potassium 4.4 3.5 - 5.5 mmol/L LAB CHEMISTRY METHOD 06/01/2024 12:30 PM [facility] Chloride 107 96 - 110 mmol/L LAB CHEMISTRY METHOD 06/01/2024 12:30 PM [facility] CO2 25 21 - 32 mmol/L LAB CHEMISTRY METHOD 06/01/2024 12:30 PM [facility] Anion Gap 9 3 - 11 LAB CHEMISTRY METHOD 06/01/2024 12:30 PM [facility] Glucose 79 70 - 100 mg/dL LAB CHEMISTRY METHOD 06/01/2024 12:30 PM [facility] BUN 18 5 - 25 mg/dL LAB CHEMISTRY METHOD 06/01/2024 12:30 PM [facility] Creatinine 1.16 0.70 - 1.30 mg/dL LAB CHEMISTRY METHOD 06/01/2024 12:30 PM [facility] eGFR 69 >=60 mL/min/1. 73m2 LAB CHEMISTRY METHOD 06/01/2024 12:30 PM [facility] Comment:Calculation based on the??Chronic Kidney Disease Epidemiology Collaboration (CKD-EPI) equation refit??without adjustment for race. BUN/Creatinine Ratio 15.5 LAB CHEMISTRY METHOD 06/01/2024 12:30 PM [facility] Calcium 8.7 8.5 - 10.5 mg/dL LAB CHEMISTRY METHOD 06/01/2024 12:30 PM [facility] Blood Venous blood specimen / Unknown Venipuncture / Unknown 06/01/2024 10:03 AM EST 06/01/2024 11:00 AM EST Herminio Lee MD LAB BLOOD ORDERABLES Final R esult [facility] [address] [place] [address], * (ABNORMAL) [id number], RSV, Influenza A and B qualitative RT-PCR (05/26/2024 7:00 AM EST) SARS COV-2 Not Detected Not Detected LAB MOLECULAR DIAGNOSTICS METHOD 05/26/2024 3:08 PM [facility] Comment: Disclaimer: The manner in which this information is used to guide patient care is the responsibility of the healthcare provider. Testing was performed using the [employer] SARS-CoV-2 test. This test has been authorized [...] for Healthcare Providers can be found at: https://www.fda.gov/media/887471/download Fact sheet for Patients can be found at: https://www.fda.gov/media/871866/download Influenza A PCR Detected(A ) Not Detected LAB MOLECULAR DIAGNOSTICS METHOD 05/26/2024 3:08 PM [facility] Comment:This patient is posi tive for influenza A. If the patient is admitted, please order the Respiratory Virus Panel PCR (Epic ID: [id number]) so our lab can subtype the influenza A, per CDC recommendations. Influenza B PCR Not Detected Not Detected LAB MOLECULAR DIAGNOSTICS METHOD 05/26/2024 3:08 PM [facility] RSV PCR Not Detected Not Detected LAB MOLECULAR DIAGNOSTICS METHOD 05/26/2024 3:08 PM [facility] Swab Nasopharyngeal structure / Unknown Non-blood Collection / Unknown 05/26/2024 7:00 AM EST 05/26/2024 11:23 AM EST Herminio Lee MD LAB MICROBIOLOGY - GENERAL O RDERABLES Final Result [facility] [address] [place] [address], from Last 3 Months Insurance MEDICARE MEDICAID - [place] Care Teams Housekeeper/Custodian/Laundry Worker Relationship Specialty Start Date End Date Maty Darnell MD [address] [place] [address] Dr [address] [place], [place] PCP - General Internal Medicine 10/24/19
--- OUTSIDE RECORDS SUMMARY | 2024-08-04 18:44 | XMS_ITS | Encounter Summary ---
Author Organization [employer] Address [address] [place] [address] [place] [address] Care Team Providers Care Flooring Sales Manager Name Role Phone Rick Arcos MD Primary Care Prov ider Reason for Visit * Reason Onset Date Comments Med Refill 07/14/2024 Encounter Details Date Type Department Care Team ([facility] st Contact Info) Description 07/14/2024 Telephone [facility] [address] [place], [place] [phone] Rick Arcos MD [address] [place] [address] Med Refill Social History Tobacco Use Types [...] 20 MG tablet To be sent to: [facility] documented in this encounter Plan of Treatment Not on file documented as of this encounter Visit Diagnoses Not on filedocumented in this encounter Care Teams Flooring Sales Manager Relationship Specialty Start Date End Date Rick Arcos MD [address] [place] [address] PCP - General Internal Medicine 05/28/24 Rodrick Arguello 06/09/24 documented as of this encounter
--- OUTSIDE RECORDS SUMMARY | 2024-08-04 18:44 | XMS_ITS | Clinical Summary ---
Author Organization [facility] Address [address] [place] [address] Care Team Providers Care Quality Control Operator Name Role Phone Provider, Marlee MCKEE Primary Care Provider Un available Immunizations Immunization Administration Dates Next Due Influenza Inactivated/Split Preservative Free IM 04/05/2010 Social History Tobacco Use Types Packs/Day Years Used Date Smoking Tobacco: Never Assessed Sex and Gender Information Value Date Recorded Sex Assigned at Not on file Legal Sex Male 3:26 PM EDT Gender Identity Not on file Sexual [...] Done Comments Hepatitis C Virus Screening 1960 DTaP/Tdap/Td Vaccines (1 - Tdap) 1977 Pneumococcal [...] age to complete this topic Care Teams Quality Control Operator Relationship Specialty Start Date End Date Marlee Lipscomb MD PCP - General 07/16/13
--- OUTSIDE RECORDS SUMMARY | 2024-08-04 18:44 | XMS_ITS | Encounter Summary ---
Author Organization [employer] Address [address] [facility] 7t [place] [address] Care Team Providers Care Rollout Manager Name Role Phone Rick Arcos MD Primary Care Prov ider Reason for Visit * Reason Onset Date Comments Verbal Order 07/15/2024 Encounter Details Date Type Department Care Team (Late st Contact Info) Description 07/15/2024 Telephone [facility] [address] [place] [address] Rick Arcos MD [address] [place], [place] [phone] Verbal Order Social History Tobacco Use Types [...] on filedocumented in this encounter Care Teams Rollout Manager Relationship Specialty Start Date End Date Rick Arcos MD [address] [place] [address] PCP - General Internal Medicine 05/28/24 [employer]- Jos 06/09/24 documented as of this encounter
--- OUTSIDE RECORDS SUMMARY | 2024-08-04 18:44 | XMS_ITS | Encounter Summary ---
Author Organization [facility] Address [address] [place] [address] Care Team Providers Care Computerized Machine Fabric Cutter Name Role Phone Maty Darnell MD Primary Care Provider [phone] Encounter Details Date Type Department Care Team (Late st Contact Info) Description 03/26/[address] [facility] [address] [facility] [place] [address] Herminio Lee MD [address] [place], [place] [phone] Cellulitis, unspecified; Unspecified atrial fibrillation (CMS/HCC V24, CMS/HCC V28); Other terminal system operator (current) drug therapy Social History Tobacco Use [...] Cellulitis, unspecified Unspecified atrial fibrillation (CMS/HCC) Other terminal system operator (current) drug therapy BASIC METABOLIC PANEL Routine 03/26/2024 8:15 AM EST Cellulitis, unspecified Unspecified atrial fibrillation (CMS/HCC) Other terminal system operator (current) drug therapy documented in this encounter Results * Basic metabolic panel (03/26/2024 8:15 AM EST) Sodium 140 133 - 145 mmol/L LAB CHEMISTRY METHOD 03/26/2024 1:05 PM [facility] Potassium 4.1 3.5 - 5.5 mmol/L LAB CHEMISTRY METHOD 03/26/2024 1:05 PM [facility] Chloride 103 96 - 110 mmol/L LAB CHEMISTRY METHOD 03/26/2024 1:05 PM [facility] CO2 30 21 - 32 mmol/L LAB CHEMISTRY METHOD 03/26/2024 1:05 PM [facility] Anion Gap 7 3 - 11 LAB CHEMISTRY METHOD 03/26/2024 1:05 PM [facility] Glucose 88 70 - 100 mg/dL LAB CHEMISTRY METHOD 03/26/2024 1:05 PM [facility] BUN 13 5 - 25 mg/dL LAB CHEMISTRY METHOD 03/26/2024 1:05 PM [facility] Creatinine 0.95 0.70 - 1.30 mg/dL LAB CHEMISTRY METHOD 03/26/2024 1:05 PM [facility] eGFR 89 >=60 mL/min/1. 73m2 LAB CHEMISTRY METHOD 03/26/2024 1:05 PM [facility] Comment:Calculation based on the??Chronic Kidney Disease Epidemiology Collaboration (CKD-EPI) equation refit??without adjustment for race. BUN/Creatinine Ratio 13.7 LAB CHEMISTRY METHOD 03/26/2024 1:05 PM [facility] Calcium 8.7 8.5 - 10.5 mg/dL LAB CHEMISTRY METHOD 03/26/2024 1:05 PM [facility] Blood Venous blood specimen / Unknown Venipuncture / Unknown 03/26/2024 8:15 AM EST 03/26/2024 11:31 AM EST us Herminio Lee MD LAB BLOOD ORDERABLES Final R esult [facility] [address] [place] [address], * (ABNORMAL) Complete blood count (03/26/2024 8:15 AM EST) [facility] Signature WBC 6.6 4.8 - 10.8 K/mcL LAB HEMETOLOGY METHOD 03/26/2024 12:43 PM EST [facility] RBC 4.20(L) 4.50 - 5.50 M/mcL LAB HEMETOLOGY METHOD 03/26/2024 12:43 PM [facility] Hemoglobin 12.8(L) 13.5 - 17.5 g/dL LAB HEMETOLOGY METHOD 03/26/2024 12:43 PM [facility] Hematocrit 42.1 42.0 - 54.0 % LAB HEMETOLOGY METHOD 03/26/2024 12:43 PM [facility] MCV 101.0(H) 79.0 - 98.0 FL LAB HEMETOLOGY METHOD 03/26/2024 12:43 PM [facility] MCH 30.7 27.0 - 32.0 pcg LAB HEMETOLOGY METHOD 03/26/2024 12:43 PM [facility] MCHC 30.4(L) 32.0 - 37.0 g/dL LAB HEMETOLOGY METHOD 03/26/2024 12:43 PM [facility] RDW 15.3(H) 11.0 - 15.0 % LAB HEMETOLOGY METHOD 03/26/2024 12:43 PM [facility] Platelets 246 130 - 400 K/mcL LAB HEMETOLOGY METHOD 03/26/2024 12:43 PM [facility] MPV 10.5 7.0 - 11.0 FL LAB HEMETOLOGY METHOD 03/26/2024 12:43 PM [facility] NRBC 0.0 <1.0 % LAB HEMETOLOGY METHOD 03/26/2024 12:43 PM EST [facility] NRBC Absolute 0.00 <0.10 K/mcL LAB HEMETOLOGY METHOD 03/26/2024 12:43 PM EST [facility] Blood Venous blood specimen / Unknown Venipuncture / Unknown 03/26/2024 8:15 AM EST 03/26/2024 11:31 AM EST us Herminio Lee MD LAB BLOOD ORDERABLES Final R esult [facility] [address] [place] [address], documented in this encounter Visit Diagnoses Diagnosis Cellulitis, unspecified Unspecified atrial fibrillation (CMS/HCC V24, CMS/HCC V28) Other terminal system operator (current) drug therapy documented in this encounter Additional Health Concerns Infection Onset Date Last Indicated Resolved Time Respiratory Rule-Out 05/26/2024 05/26/2024 025 3:08 PM EST Influenza 05/26/2024 05/26/2024 06/19/2024 7:04 PM EDT documented as of this encounter Care Teams Computerized Machine Fabric Cutter Relationship Specialty Start Date End Date Maty Darnell MD [address] [place] [address] Dr [address] [place] PCP - General Internal Medicine 10/24/19 documented as of this encounter
--- OUTSIDE RECORDS SUMMARY | 2024-08-04 18:44 | XMS_ITS | Encounter Summary ---
Author Organization [employer] Address [address] [facility] 7t [place] [address] Care Team Providers Care Lobby Attendant Name Role Phone Rick Arcos MD Primary Care Prov ider Reason for Visit * Reason Onset Date Comments Appointment Request 06/24/2024 Encounter Details Date Type Department Care Team ([facility] st Contact Info) Description 06/24/2024 Telephone [facility] [address] [place] [address] Rick Arcos MD [address] [place], [place] [phone] Appointment Request Social History Tobacco Use Types [...] on filedocumented in this encounter Care Teams Lobby Attendant Relationship Specialty Start Date End Date Rick Arcos MD [address] [place] [address] PCP - General Internal Medicine 05/28/24 Rodrick Arguello 06/09/24 documented as of this encounter
--- OUTSIDE RECORDS SUMMARY | 2024-08-04 18:44 | XMS_ITS | Patient Health Record ---
Author Organization [facility] Address [address] [address] Support Name Relationship Address Phone HUNTER BAIRD [...] Problem Status W/U Status Risk Notes Problem [id number] Anxiety disorder, unspecified (F41.9) Active confirmed Problem Paroxysmal atrial fibrillation (720254364) Paroxysmal atrial fibrillation (I48.0) Active confirmed Problem 797124139 Chronic atrial fibrillation (I48.20) Active confirmed Problem Heart failure (38650025) Heart failure (I50.9) Active confirmed Problem 333759015 History of pulmonary embolism (Z86.711) Active confirmed Problem Morbid obesity (429039054) Morbid obesity (E66.01) Active confirmed Problem [id number] Acute on chronic heart failure with preserved ejection fraction (I50.33) Active confirmed Problem Chronic diastolic heart failure (134528622) Heart failure, diastolic, chronic (I50.32) Active confirmed Problem Depression (183903425) Depression (F32.9) Active confirmed Plan Of Treatment No Information Insurance Providers Payer Name Payer Address Payer Phone Subscriber Number Group Number Insured Name Patient Relationship to Insured Coverage Start Date Coverage End Date Medicare Of [place] [address] [place] [address] [id number] HUNTER BAIRD JR Self - patient is the insured [place] [address] [place] [phone] [id number] HUNTER BAIRD JR Self - patient is [...]
--- OUTSIDE RECORDS SUMMARY | 2024-08-04 18:44 | XMS_ITS | Clinical Summary ---
Author Organization [facility] Address [address] [place] [address] Care Team Providers Care Income Tax Expert Name Role Phone Bambi Machuca MD Primary Care Provider Social History Tobacco Use Types Packs/Day Years [...] age to complete [place] [address] Medicare Medicaid [place] Care Teams Income Tax Expert Relationship Specialty Start Date End Date Bambi Machuca MD [address] [place], [place] PCP - General Internal Medicine 04/24/22
--- OUTSIDE RECORDS SUMMARY | 2024-08-04 18:44 | XMS_ITS | Encounter Summary ---
Author Organization [email or web address] Address [address] [facility] 7t [place] [address] Care Team Providers Care Expenditure Requisition Clerk Name Role Phone Rick Arcos MD Primary Care Prov ider Reason for Visit * Reason Onset Date Comments Nurse Triage 07/15/2024 Encounter Details Date Type Department Care Team (Late st Contact Info) Description 07/15/2024 Telephone [facility] [address] [place] [address] Rick Arcos MD [address] [place], [place] [phone] Nurse Triage Social History Tobacco Use Types [...] returned to patient who was discharged from [facility] on Saturday07/13/2024. Though documentation show Oxycodone was filled for 26 tabs on 07/10/24 patient was not allowed to take home medication upon discharge. Per patient it is the [facility] policy. Last Oxycodone taken at 10am on Saturday.Reports symptom of diarrhea and nausea as no medication available. Patient seeking refill for home use pending [facility] appt with PCP on 07/28/24. Disposition reviewed [...] caller accepted this outcome. Contact pt at [phone] Pt states that the symptoms that he is having are due to him not having his medication oxyCODONE (Oxy-IR) 5 MG immediate release capsule. documented in this encounter Plan of Treatment Not on file documented as of this encounter Visit Diagnoses Not on filedocumented in this encounter Care Teams Expenditure Requisition Clerk Relationship Specialty Start Date End Date Rick Arcos MD [address] [place] [address] PCP - General Internal Medicine 05/28/24 [address] Jos 06/09/24 documented as of this encounter
--- OUTSIDE RECORDS SUMMARY | 2024-08-04 18:44 | XMS_ITS | Encounter Summary ---
Author Organization [facility] Address [address] [place] [address] Care Team Providers Care Mud Jack Operator Name Role Phone Maty Darnell MD Primary Care Provider Encounter Details Date Type Department Care Team (Late st Contact Info) Description 05/26/2024 Lab Requisition [facility] Main Lab [address] [place] [address] Herminio Lee MD [address] [place], [place] [phone] Acute cough; Fever, unspecified Social History Tobacco [...] Procedure Name Priority Date/Time Associated Diagnosis Comments [id number], RSV, FLU A AND B QUALITATIVE RT-PCR, LOCAL REFERENCE LAB Routine 05/26/2024 7:00 AM EST Acute cough Fever, unspecified documented in this encounter Results * (ABNORMAL) [id number], RSV, Influenza A and B qualitative RT-PCR (05/26/2024 7:00 AM EST) SARS COV-2 Not Detected Not Detected LAB MOLECULAR DIAGNOSTICS METHOD 05/26/2024 3:08 PM EST [facility] Comment: Disclaimer: The manner in which this information is used to guide patient care is the responsibility of the healthcare provider. Testing was performed using the [employer] Alinity m SARS-CoV-2 test. This test has [...] for Healthcare Providers can be found at: https://www.fda.gov/media/193120/download Fact sheet for Patients can be found at: https://www.fda.gov/media/739781/download Influenza A PCR Detected(A ) Not Detected LAB MOLECULAR DIAGNOSTICS METHOD 05/26/2024 3:08 PM [facility] Comment:This patient is posi tive for influenza A. If the patient is admitted, please order the Respiratory Virus Panel PCR (Epic ID: [id number]) so our lab can subtype the influenza [...] MICROBIOLOGY - GENERAL O RDERABLES Final Result [facility] [address] [place] [address], documented in this encounter Visit Diagnoses Diagnosis Acute cough Fever, unspecified documented in this encounter Additional Health Concerns Infection Onset Date Last Indicated Resolved Time Respiratory Rule-Out 05/26/2024 05/26/2024 025 3:08 PM EST Influenza 05/26/2024 05/26/2024 06/19/2024 7:04 PM EDT documented as of this encounter Care Teams Mud Jack Operator Relationship Specialty Start Date End Date Maty Darnell MD [address] [place] [address] Dr [address] ANNEL Arguello PCP - General Internal Medicine 10/24/19 documented as of this encounter
--- OUTSIDE RECORDS SUMMARY | 2024-08-04 18:44 | XMS_ITS | Encounter Summary ---
Author Organization [facility] Address [id number] [place] [phone] Care Team Providers Care General Clerk Name Role Phone Maty Darnell MD Primary Care Provider [phone] Encounter Details Date Type Department Care Team (Late st Contact Info) Description 05/25/2024 Lab Requisition [facility] - Main Lab [address] [place] [address] Herminio Lee MD [address] [place] [address] Essential (primary) hypertension; Fever, unspecified Social History [...] LAB CHEMISTRY METHOD 05/25/2024 11:48 AM EST [facility] Potassium 4.3 3.5 - 5.5 mmol/L LAB CHEMISTRY METHOD 05/25/2024 11:48 AM [facility] Chloride 101 96 - 110 mmol/L LAB CHEMISTRY METHOD 05/25/2024 11:48 AM [facility] CO2 24 21 - 32 mmol/L LAB CHEMISTRY METHOD 05/25/2024 11:48 AM [facility] Anion Gap 11 3 - 11 LAB CHEMISTRY METHOD 05/25/2024 11:48 AM [facility] Glucose 95 70 - 100 mg/dL LAB CHEMISTRY METHOD 05/25/2024 11:48 AM [facility] BUN 21 5 - 25 mg/dL LAB CHEMISTRY METHOD 05/25/2024 11:48 AM [facility] Creatinine 1.36(H) 0.70 - 1.30 mg/dL LAB CHEMISTRY METHOD 05/25/2024 11:48 AM [facility] eGFR 57(L) >=60 mL/min/1. 73m2 LAB CHEMISTRY METHOD 05/25/2024 11:48 AM [facility] LAB Comment:Calculation based on the??Chronic Kidney Disease Epidemiology Collaboration (CKD-EPI) equation refit??without adjustment for race. BUN/Creatinine Ratio 15.4 LAB CHEMISTRY METHOD 05/25/2024 11:48 AM [facility] Calcium 8.1(L) 8.5 - 10.5 mg/dL LAB CHEMISTRY METHOD 05/25/2024 11:48 AM [facility] Blood Venous blood specimen / Unknown Venipuncture / Unknown 05/25/2024 7:40 AM EST 05/25/2024 10:32 AM EST us Herminio Lee MD LAB BLOOD ORDERABLES Final R esult [facility] LAB [address] [place] [address], * (ABNORMAL) Complete blood count (05/25/2024 7:40 AM EST) [facility] WBC 7.4 4.8 - 10.8 K/mcL LAB HEMETOLOGY METHOD 05/25/2024 11:44 AM [facility] RBC 3.90(L) 4.50 - 5.50 M/mcL LAB HEMETOLOGY METHOD 05/25/2024 11:44 AM [facility] Hemoglobin 11.4(L) 13.5 - 17.5 g/dL LAB HEMETOLOGY METHOD 05/25/2024 11:44 AM [facility] Hematocrit 36.9(L) 42.0 - 54.0 % LAB HEMETOLOGY METHOD 05/25/2024 11:44 AM [facility] MCV 95.3 79.0 - 98.0 FL LAB HEMETOLOGY METHOD 05/25/2024 11:44 AM [facility] MCH 29.5 27.0 - 32.0 pcg LAB HEMETOLOGY METHOD 05/25/2024 11:44 AM [facility] MCHC 30.9(L) 32.0 - 37.0 g/dL LAB HEMETOLOGY METHOD 05/25/2024 11:44 AM [facility] RDW 15.0 11.0 - 15.0 % LAB HEMETOLOGY METHOD 05/25/2024 11:44 AM [facility] Platelets 164 130 - 400 K/mcL LAB HEMETOLOGY METHOD 05/25/2024 11:44 AM [facility] MPV 11.5(H) 7.0 - 11.0 FL LAB HEMETOLOGY METHOD 05/25/2024 11:44 AM [facility] NRBC 0.0 <1.0 % LAB HEMETOLOGY METHOD 05/25/2024 11:44 AM [facility] NRBC Absolute 0.00 <0.10 K/mcL LAB HEMETOLOGY METHOD 05/25/2024 11:44 AM EST [facility] LAB Blood Venous blood specimen / Unknown Venipuncture / Unknown 05/25/2024 7:40 AM EST 05/25/2024 10:32 AM EST us Herminio Lee MD LAB BLOOD ORDERABLES Final R esult [facility] LAB [address] [place] [address], documented in this encounter Visit Diagnoses Diagnosis Essential (primary) hypertension Unspecified essential hypertension Fever, unspecified documented in this encounter Additional Health Concerns Infection Onset Date Last Indicated Resolved Time Respiratory Rule-Out 05/26/2024 05/26/2024 025 3:08 PM EST Influenza 05/26/2024 05/26/2024 06/19/2024 7:04 PM EDT documented as of this encounter Care Teams General Clerk Relationship Specialty Start Date End Date Maty Darnell MD [address] [place] PCP - General Internal Medicine 10/24/19 documented as of this encounter
--- OUTSIDE RECORDS SUMMARY | 2024-08-04 18:44 | XMS_ITS | Encounter Summary ---
Author Organization [facility] Address [address] [place] [phone] Care Team Providers Care [employer] Open [employer] Administrator Name Role Phone Maty Darnell MD Primary Care Provider [phone] Encounter Details Date Type Department Care Team (Late st Contact Info) Description 04/02/2024 Lab Requisition [facility] - Main Lab [address] [place] [address] Herminio Lee MD [address] [place] [address] Unspecified atrial fibrillation (CMS/HCC V24, CMS/HCC V28) [...] CHEMISTRY METHOD 04/03/2024 10:04 AM EST [facility] LAB Potassium 4.4 3.5 - 5.5 mmol/L LAB CHEMISTRY METHOD 04/03/2024 10:04 AM [facility] Comment:Hemolysis present Chloride 107 96 - 110 mmol/L LAB CHEMISTRY METHOD 04/03/2024 10:04 AM [facility] CO2 28 21 - 32 mmol/L LAB CHEMISTRY METHOD 04/03/2024 10:04 AM [facility] Anion Gap 4 3 - 11 LAB CHEMISTRY METHOD 04/03/2024 10:04 AM [facility] Glucose 85 70 - 100 mg/dL LAB CHEMISTRY METHOD 04/03/2024 10:04 AM [facility] BUN 18 5 - 25 mg/dL LAB CHEMISTRY METHOD 04/03/2024 10:04 AM [facility] Creatinine 1.03 0.70 - 1.30 mg/dL LAB CHEMISTRY METHOD 04/03/2024 10:04 AM [facility] eGFR 81 >=60 mL/min/1. 73m2 LAB CHEMISTRY METHOD 04/03/2024 10:04 AM [facility] Comment:Calculation based on the??Chronic Kidney Disease Epidemiology Collaboration (CKD-EPI) equation refit??without adjustment for race. BUN/Creatinine Ratio 17.5 LAB CHEMISTRY METHOD 04/03/2024 10:04 AM [facility] Calcium 8.7 8.5 - 10.5 mg/dL LAB CHEMISTRY METHOD 04/03/2024 10:04 AM [facility] AST (SGOT) 27 10 - 42 unit/L LAB CHEMISTRY METHOD 04/03/2024 10:04 AM [facility] Comment:Hemolysis present ALT (SGPT) 22 10 - 60 unit/L LAB CHEMISTRY METHOD 04/03/2024 10:04 AM [facility] Alkaline Phosphatase 96 42 - 121 unit/L LAB CHEMISTRY METHOD 04/03/2024 10:04 AM [facility] Total Protein 7.0 6.0 - 8.0 g/dL LAB CHEMISTRY METHOD 04/03/2024 10:04 AM [facility] Albumin 3.1(L) 3.2 - 5.0 g/dL LAB CHEMISTRY METHOD 04/03/2024 10:04 AM [facility] Total Bilirubin 0.3 0.0 - 1.4 mg/dL LAB CHEMISTRY METHOD 04/03/2024 10:04 AM [facility] Blood Venous blood specimen / Unknown Venipuncture / Unknown 04/03/2024 7:26 AM EST 04/03/2024 9:41 AM EST us Herminio Lee MD LAB BLOOD ORDERABLES Final R esult [facility] [address] [place] [address], * (ABNORMAL) Complete blood count (04/03/2024 7:26 AM EST) WBC 7.0 4.8 - 10.8 K/mcL LAB HEMETOLOGY METHOD 04/03/2024 9:49 AM [facility] RBC 4.00(L) 4.50 - 5.50 M/mcL LAB HEMETOLOGY METHOD 04/03/2024 9:49 AM [facility] Hemoglobin 12.2(L) 13.5 - 17.5 g/dL LAB HEMETOLOGY METHOD 04/03/2024 9:49 AM [facility] Hematocrit 40.3(L) 42.0 - 54.0 % LAB HEMETOLOGY METHOD 04/03/2024 9:49 AM [facility] MCV 100.0(H) 79.0 - 98.0 FL LAB HEMETOLOGY METHOD 04/03/2024 9:49 AM [facility] MCH 30.3 27.0 - 32.0 pcg LAB HEMETOLOGY METHOD 04/03/2024 9:49 AM EST [facility] MCHC 30.3(L) 32.0 - 37.0 g/dL LAB HEMETOLOGY METHOD 04/03/2024 9:49 AM [facility] RDW 15.3(H) 11.0 - 15.0 % LAB HEMETOLOGY METHOD 04/03/2024 9:49 AM EST [facility] Platelets 326 130 - 400 K/mcL LAB HEMETOLOGY METHOD 04/03/2024 9:49 AM [facility] MPV 10.2 7.0 - 11.0 FL LAB HEMETOLOGY METHOD 04/03/2024 9:49 AM [facility] NRBC 0.0 <1.0 % LAB HEMETOLOGY METHOD 04/03/2024 9:49 AM [facility] NRBC Absolute 0.00 <0.10 K/mcL LAB HEMETOLOGY METHOD 04/03/2024 9:49 AM [facility] Blood Venous blood specimen / Unknown Venipuncture / Unknown 04/03/2024 7:26 AM EST 04/03/2024 9:42 AM EST Herminio Lee MD LAB BLOOD ORDERABLES Final R esult [facility] [address] [place] [address], documented in this encounter Visit Diagnoses Diagnosis Unspecified atrial fibrillation (CMS/HCC V24, CMS/HCC V28) documented in this encounter Additional Health Concerns Infection Onset Date Last Indicated Resolved Time Respiratory Rule-Out 05/26/2024 05/26/2024 025 3:08 PM EST Influenza 05/26/2024 05/26/2024 06/19/2024 7:04 PM EDT documented as of this encounter Care Teams [employer] Open [employer] Administrator Relationship Specialty Start Date End Date Maty Darnell MD [address] [place] [address] Dr [address] ANNEL Arguello PCP - General Internal Medicine 10/24/19 documented as of this encounter
--- OUTSIDE RECORDS SUMMARY | 2024-08-04 18:44 | XMS_ITS | Referral Summary ---
Author Organization [facility] Address [address] [place] [address] Care Team Providers Care Hay Sorter Name Role Phone [facility] Primary Care Provider [phone] Allergies Active Allergy Reactions Criticality Noted Date [...] 2 days prior to admission. Was at [facility] prior to current presentation. Assessed [...] 2 days prior to admission. Was at [facility] prior to current presentation. Assessed [...] 2 days prior to admission. Was at [facility] prior to current presentation. Assessed [...] 2 days prior to admission. Was at [facility] prior to current presentation. Assessed [...] 2 days prior to admission. Was at [facility] prior to current presentation. Assessed by addiction psych this admission who noted patient not interested in MAT for AUD. He was monitored on CIWA which was discontinued on 02/24. - outpatient PCP and AA follow up Assessment & Plan (02/26/2024 6:00 PM EST): Patient reports drinking one quart of hard liquor daily, last drink 2 days prior to admission. Was at [facility] prior to current presentation. Assessed by addiction psych this admission who noted patient not interested in MAT for AUD. He was monitored on CIWA which was discontinued on 02/24. - outpatient PCP and AA follow up Assessment & Plan (02/25/2024 7:00 PM EST): Patient reports drinking one quart of hard liquor daily, last drink 2 days prior to admission. Was at [facility] prior to current presentation. Assessed [...] chronic venous stasis. He was hospitalized at [facility] back in July 2023 and at that [...] chronic venous stasis. He was hospitalized at [facility] back in July 2023 and at that [...] chronic venous stasis. He was hospitalized at [facility] back in July 2023 and at that [...] chronic venous stasis. He was hospitalized at [facility] back in July 2023 and at that [...] the leg swelling. He was hospitalized at [facility] back in July 2023 and at that [...] the leg swelling. He was hospitalized at [facility] back in July 2023 and at that [...] the leg swelling. He was hospitalized at [facility] back in July 2023 and at that [...] (03/15/2024 10:34 AM EST): Patient presented from [facility] for evaluation of right lower extremity swelling and redness. He was initiated on clindamycin at [facility] but without improvement so sent to [facility] for evaluation. L. Duplex negative for DVT. [...] will need to clear while inpatient to correction vs other housing Assessment & Plan (03/14/2024 5:17 PM EST): Patient presented from [facility] for evaluation of right lower extremity swelling and redness. He was initiated on clindamycin at [facility] but without improvement so sent to [facility] for evaluation. L. Duplex negative for DVT. [...] will need to clear while inpatient to correction vs other housing Assessment & Plan (03/09/2024 7:28 PM EST): Was initiated on clindamycin at [facility] but without improvement so sent to [facility] for evaluation. L. Duplex negative for DVT. [...] PM EST): Was initiated on clindamycin at [facility] but without improvement so sent to [facility] for evaluation. L. Duplex negative for DVT. [...] Plan (03/07/2024 1:35 PM EST): Presents from [facility] for evaluation of right lower extremity cellulitis. Was initiated on clindamycin at [facility] but without improvement so sent to [facility] for evaluation. He was sent for further [...] Plan (02/26/2024 6:00 PM EST): Presents from [facility] for evaluation of right lower extremity cellulitis. Was initiated on clindamycin at [facility] but without improvement so sent to [facility] for evaluation. He was sent for further [...] Plan (02/25/2024 7:00 PM EST): Presents from [facility] for evaluation of right lower extremity cellulitis. Was initiated on clindamycin at [facility] but without improvement so sent to [facility] for evaluation. 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
--- OUTSIDE RECORDS SUMMARY | 2024-08-04 18:44 | XMS_ITS | Encounter Summary ---
Author Organization [employer] Address [address] [facility] [address] [place] [address] Care Team Providers Care Firer Powerhouse Name Role Phone Rick Arcos MD Primary Care Prov ider Reason for Visit * Reason Onset Date Comments Medication Question 07/14/2024 Encounter Details Date Type Department Care Team ([facility] st Contact Info) Description 07/14/2024 Telephone [facility] MEDICINE [address] [place] [address] Rick Arcos MD [address] [place], [place] [id number] Medication Question Social History Tobacco Use Types [...] is not getting medication. Contact pt at [phone] documented in this encounter Plan of Treatment Not on file documented as of this encounter Visit Diagnoses Not on filedocumented in this encounter Care Teams Firer Powerhouse Relationship Specialty Start Date End Date Rick Arcos MD [address] [place] [address] PCP - General Internal Medicine 05/28/24 [address] 06/09/24 documented as of this encounter
--- OUTSIDE RECORDS SUMMARY | 2024-08-04 18:44 | XMS_ITS | Encounter Summary ---
Author Organization [facility] Address [address] [place] [phone] Care Team Providers Care Office Rental Clerk Name Role Phone Maty Darnell MD Primary Care Provider [phone] Encounter Details Date Type Department Care Team (Late st Contact Info) Description 06/01/2024 Lab Requisition [facility] - Main Lab [address] [place] [address] Herminio Lee MD [address] [place] [address] Shortness of breath Social History Tobacco Use [...] LAB CHEMISTRY METHOD 06/01/2024 12:30 PM EST [facility] LAB Potassium 4.4 3.5 - 5.5 mmol/L LAB CHEMISTRY METHOD 06/01/2024 12:30 PM [facility] LAB Chloride 107 96 - 110 mmol/L LAB CHEMISTRY METHOD 06/01/2024 12:30 PM [facility] LAB CO2 25 21 - 32 mmol/L LAB CHEMISTRY METHOD 06/01/2024 12:30 PM [facility] LAB Anion Gap 9 3 - 11 LAB CHEMISTRY METHOD 06/01/2024 12:30 PM [facility] LAB Glucose 79 70 - 100 mg/dL LAB CHEMISTRY METHOD 06/01/2024 12:30 PM [facility] BUN 18 5 - 25 mg/dL LAB CHEMISTRY METHOD 06/01/2024 12:30 PM [facility] LAB Creatinine 1.16 0.70 - 1.30 mg/dL LAB CHEMISTRY METHOD 06/01/2024 12:30 PM [facility] LAB eGFR 69 >=60 mL/min/1. 73m2 LAB CHEMISTRY METHOD 06/01/2024 12:30 PM [facility] LAB Comment:Calculation based on the??Chronic Kidney Disease Epidemiology Collaboration (CKD-EPI) equation refit??without adjustment for race. BUN/Creatinine Ratio 15.5 LAB CHEMISTRY METHOD 06/01/2024 12:30 PM [facility] LAB Calcium 8.7 8.5 - 10.5 mg/dL LAB CHEMISTRY METHOD 06/01/2024 12:30 PM [facility] LAB Blood Venous blood specimen / Unknown Venipuncture / Unknown 06/01/2024 10:03 AM EST 06/01/2024 11:00 AM EST us Herminio Lee MD LAB BLOOD ORDERABLES Final R esult [facility] LAB [address] [place] [address], * (ABNORMAL) Complete blood count (06/01/2024 10:03 AM EST) WBC 8.8 4.8 - 10.8 K/mcL LAB HEMETOLOGY METHOD 06/01/2024 1:47 PM [facility] LAB RBC 4.30(L) 4.50 - 5.50 M/mcL LAB HEMETOLOGY METHOD 06/01/2024 1:47 PM [facility] Hemoglobin 12.6(L) 13.5 - 17.5 g/dL LAB HEMETOLOGY METHOD 06/01/2024 1:47 PM [facility] LAB Hematocrit 40.6(L) 42.0 - 54.0 % LAB HEMETOLOGY METHOD 06/01/2024 1:47 PM [facility] LAB MCV 94.9 79.0 - 98.0 FL LAB HEMETOLOGY METHOD 06/01/2024 1:47 PM [facility] LAB MCH 29.4 27.0 - 32.0 pcg LAB HEMETOLOGY METHOD 06/01/2024 1:47 PM [facility] LAB MCHC 31.0(L) 32.0 - 37.0 g/dL LAB HEMETOLOGY METHOD 06/01/2024 1:47 PM [facility] LAB RDW 15.2(H) 11.0 - 15.0 % LAB HEMETOLOGY METHOD 06/01/2024 1:47 PM [facility] Platelets 282 130 - 400 K/mcL LAB HEMETOLOGY METHOD 06/01/2024 1:47 PM [facility] MPV 10.6 7.0 - 11.0 FL LAB HEMETOLOGY METHOD 06/01/2024 1:47 PM [facility] NRBC 0.0 <1.0 % LAB HEMETOLOGY METHOD 06/01/2024 1:47 PM [facility] NRBC Absolute 0.00 <0.10 K/mcL LAB HEMETOLOGY METHOD 06/01/2024 1:47 PM [facility] LAB Blood Venous blood specimen / Unknown Venipuncture / Unknown 06/01/2024 10:03 AM EST 06/01/2024 11:00 AM EST us Herminio Lee MD LAB BLOOD ORDERABLES Final R esult [facility] [address] [place] [address], documented in this encounter Visit Diagnoses Diagnosis Shortness of breath documented in this encounter Additional Health Concerns Infection Onset Date Last Indicated Resolved Time Influenza 05/26/2024 05/26/2024 06/19/2024 7:04 PM EDT documented as of this encounter Care Teams Office Rental Clerk Relationship Specialty Start Date End Date Maty Darnell MD [address] [place] [address] Dr [address] [place], [place] PCP - General Internal Medicine 10/24/19 documented as of this encounter
--- OUTSIDE RECORDS SUMMARY | 2024-08-04 18:45 | XMS_ITS | Clinical Summary ---
Author Organization [facility] Address [address] [place] [address] Care Team Providers Care Manager Nc Name Role Phone [facility] Primary Care Provider [phone] Allergies Active Allergy Reactions Criticality Noted Date [...] 2 days prior to admission. Was at [facility] prior to current presentation. Assessed by [...] 2 days prior to admission. Was at [facility] prior to current presentation. Assessed by [...] 2 days prior to admission. Was at [facility] prior to current presentation. Assessed by [...] 2 days prior to admission. Was at [facility] prior to current presentation. Assessed by [...] 2 days prior to admission. Was at [facility] prior to current presentation. Assessed by addiction psych this admission who noted patient not interested in MAT for AUD. He was monitored on CIWA which was discontinued on 02/24. - outpatient PCP and AA follow up Assessment & Plan (02/26/2024 6:00 PM EST): Patient reports drinking one quart of hard liquor daily, last drink 2 days prior to admission. Was at [facility] prior to current presentation. Assessed by addiction psych this admission who noted patient not interested in MAT for AUD. He was monitored on CIWA which was discontinued on 02/24. - outpatient PCP and AA follow up Assessment & Plan (02/25/2024 7:00 PM EST): Patient reports drinking one quart of hard liquor daily, last drink 2 days prior to admission. Was at [facility] prior to current presentation. Assessed by [...] chronic venous stasis. He was hospitalized at [facility] back in July 2023 and at that [...] chronic venous stasis. He was hospitalized at [facility] back in July 2023 and at that [...] chronic venous stasis. He was hospitalized at [facility] back in July 2023 and at that [...] chronic venous stasis. He was hospitalized at [facility] back in July 2023 and at that [...] the leg swelling. He was hospitalized at [facility] back in July 2023 and at that [...] the leg swelling. He was hospitalized at [facility] back in July 2023 and at that [...] the leg swelling. He was hospitalized at [facility] back in July 2023 and at that [...] (03/15/2024 10:34 AM EST): Patient presented from [facility] for evaluation of right lower extremity swelling and redness. He was initiated on clindamycin at [facility] but without improvement so sent to [...] will need to clear while inpatient to skilled nursing vs other housing Assessment & Plan (03/14/2024 5:17 PM EST): Patient presented from [facility] for evaluation of right lower extremity swelling and redness. He was initiated on clindamycin at [facility] but without improvement so sent to [...] will need to clear while inpatient to skilled nursing vs other housing Assessment & Plan (03/09/2024 7:28 PM EST): Was initiated on clindamycin at [facility] but without improvement so sent to [...] PM EST): Was initiated on clindamycin at [facility] but without improvement so sent to [...] Plan (03/07/2024 1:35 PM EST): Presents from [facility] for evaluation of right lower extremity cellulitis. Was initiated on clindamycin at [facility] but without improvement so sent to [...] Plan (02/26/2024 6:00 PM EST): Presents from [facility] for evaluation of right lower extremity cellulitis. Was initiated on clindamycin at [facility] but without improvement so sent to [...] Plan (02/25/2024 7:00 PM EST): Presents from [facility] for evaluation of right lower extremity cellulitis. 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
--- OUTSIDE RECORDS SUMMARY | 2024-08-04 18:45 | XMS_ITS | Encounter Summary ---
Author Organization [employer] Address [address] [facility] 7t [place] [address] Care Team Providers Care Top And Seat Cover Fitter Name Role Phone Rick Arcos MD Primary Care Prov ider Reason for Visit * Reason Onset Date Comments Medication Question 05/11/2024 Encounter Details Date Type Department Care Team ([facility] st Contact Info) Description 05/11/2024 Telephone [facility] [address] [place] [address] Rick Arcos MD [address] [place], [place] [phone] Medication Question Social History Tobacco Use Types [...] to prescribe medications and send them to [facility] pharmacy . Pt states he gave provider a list of about 20 medications documented in this encounter Plan of Treatment Not on file documented as of this encounter Visit Diagnoses Not on filedocumented in this encounter Care Teams Top And Seat Cover Fitter Relationship Specialty Start Date End Date Rick Arcos MD [address] [place] [address] PCP - General Internal Medicine 05/28/24 Rodrick Arguello 06/09/24 documented as of this encounter
--- OUTSIDE RECORDS SUMMARY | 2024-08-04 18:45 | XMS_ITS | Encounter Summary ---
Author Organization [employer] Address [address] [place] [address] 7t [place] [address] Care Team Providers Care Asphalt Spreader Name Role Phone Rick Arcos MD Primary Care Prov ider Reason for Visit * Reason Onset Date Comments Hospital Follow-up 04/15/2024 Encounter Details Date Type Department Care Team ([facility] st Contact Info) Description 04/15/2024 Telephone [facility] MEDICINE [address] [place], [place] [phone] Barrington Morataya MD [address] [place] [address] Hospital Follow-up Social History Tobacco Use Types [...] from pt requesting a HDF appt. Hospital: [facility] Date of admission: 03/17/2024 Discharge date: 05/09/2024 Diagnosed: Discuss with pt. *Send message to [facility] Clinical Care Coordinators documented in this encounter Plan of Treatment Not on file documented as of this encounter Visit Diagnoses Not on filedocumented in this encounter Care Teams Asphalt Spreader Relationship Specialty Start Date End Date Rick Arcos MD [address] [place] [address] PCP - General Internal Medicine 05/28/24 [facility] 06/09/24 documented as of this encounter
--- OUTSIDE RECORDS SUMMARY | 2024-08-04 18:45 | XMS_ITS | Clinical Summary ---
Author Organization [facility] Address [address] [place] [address] Care Team Providers Care Discharge Specialist Name Role Phone Unavailable Primary Care Provider [...]
--- OUTSIDE RECORDS SUMMARY | 2024-08-04 18:45 | XMS_ITS | Encounter Summary ---
Author Organization [employer] Address [address] [facility] 7t [place] [address] Care Team Providers Care Car Rental Manager Name Role Phone Rick Arcos MD Primary Care Prov ider Encounter Details Date Type Department Care Team (Late st Contact Info) Description 06/03/2024 Orders Only [facility] MED & PEDS [address] [place] [address] Rick Arcos MD [address] [place] [address] Social History Tobacco Use Types Packs/Day Years [...] on filedocumented in this encounter Care Teams Car Rental Manager Relationship Specialty Start Date End Date Rick Arcos MD [address] [place] [address] PCP - General Internal Medicine 05/28/24 Rodrick Arguello 06/09/24 documented as of this encounter
--- OUTSIDE RECORDS SUMMARY | 2024-08-04 18:45 | XMS_ITS | Patient Health Record ---
Author Organization [facility] Address [address] [place] [address] Care Team Providers Care Coding Support Specialist Name Role Phone Francisco French Unavailable [phone] Allergies No Known Allergies Reason For Referral [...] Start Date Coverage End Date Medicare [facility] [address] [place] [address] [id number] Katlyn Bennie Self - patient is the insured Medical (General) History Medical History History ICD Code Angina Back,Hip,and Knee pain Heart disease Mumps Measles Chicken pox Joint implants/screws Surgical History Surgery Date(Month/Year) stomach surgery gall bladder tendon repair [facility]3 [facility]
--- OUTSIDE RECORDS SUMMARY | 2024-08-04 18:45 | XMS_ITS | Encounter Summary ---
Author Organization [employer] Address [address] [facility] 7t [place] [address] Care Team Providers Care Machine Driller Name Role Phone Rick Arcos MD Primary Care Prov ider Reason for Visit * Reason Onset Date Comments Appointment 08/22/2022 Encounter Details Date Type Department Care Team ([facility] st Contact Info) Description 08/22/2022 Telephone [facility]ULT DENTAL [address] [place], [place] [phone] Martín Dumont DDS [address] [place], [place] [phone] Appointment Social History Tobacco Use Types Packs/Day [...] on filedocumented in this encounter Care Teams Machine Driller Relationship Specialty Start Date End Date Rick Arcos MD [address] [place], [place] [id number] PCP - General Internal Medicine 05/28/24 Rodrick Arguello 06/09/24 documented as of this encounter
== END 2024-08-04 17:33 | disposition home or self-care (01) ==
LOC: HO.MMNH1L 17:32
PROVIDERS: Visit Provider Nurse Practitioner Family
DX: I10 Essential (primary) hypertension (principal); I48.0 Paroxysmal atrial fibrillation; L03.115 Cellulitis of right lower limb
CPT/HCPCS: 87633

== ENCOUNTER 2024-08-10 11:01 | Outpatient (AMB) | payer MEDICARE, SELFPAY ==
--- NOTE | 2024-08-10 11:03 | A.OFFVIS_ITS ---
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 He reports no tinea pedis. He says his leg remains always painful and red and was supposed to get Vascular test. [facility] Medical History Morbid obesity Atrial fibrillation with RVR Chest pain Atrial fibrillation with RVR Sciatica ARIAN (acute kidney injury) Atrial fibrillation with RVR Alcohol withdrawal delirium Oral thrush Metabolic acidosis with increased anion gap and accumulation of organic acids Alcohol withdrawal Heart failure with left ventricular ejection fraction greater than or equal to 50 percent Incarcerated incisional hernia Atrial fibrillation with RVR Alcohol dependence Alcohol intoxication Thoracic aortic aneurysm Chronic atrial fibrillation Toenail deformity Dyslipidemia Anemia History of alcohol abuse Morbid obesity Insomnia Depression Pulmonary embolism Obesity Surgical History History of incisional hernia repair S/P cholecystectomy History of inguinal hernia repair Hx of gastric bypass Family History Mother No problems noted. Father No problems noted. Family/Other Substance use disorder Social History Household Members: None Household Members Other:: lives with mother Housing: Apartment Do you presently have visiting nurse or other home services: No Unable to assess alcohol history related to: Unable to respond Alcohol intake: former Year quit: 2019 Comment: pt refusing alarms Patient Tobacco Use Status: Never used Tobacco e-Cigarette/Vaping Use: Never Used Second Hand Smoke Exposure: No Substance Use Type: Other Advance Directives Date on File: 03/13/21 service: No Current occupational status: retired Review of Systems Const All systems reviewed & are unremarkable except as noted in HPI and below Physical Exam Vital Signs: Last Vital Signs Pulse 88 08/10/24 11:17 Pulse Ox 95 08/10/24 11:17 Oxygen Delivery Method Room Air 08/10/24 11:17 Const Other: General: cooperative Orientation/consciousness: patient oriented x3 HEENT Head: Yes normal to inspection Mouth: Normal oral and palatal mucosa present Eyes General: appearance normal, both eyes and all related structures Pupils: Equal, round and reactive pupils present Resp Effort & Inspection: normal respiratory effort Cardio Rate: regular rate Rhythm: regular rhythm GI Palpation (GI): Soft to palpation and nontender General: Yes no CVA tenderness Back/Spine/Pelvis Back: no CVA tenderness Skin General skin exam: no rashes or lesions noted Neuro General: patient oriented x3 Cranial nerves: Yes CN's II-XII intact bilaterally and Yes Equal, round and reactive pupils present Extrem General: Yes normal to inspection Psych Appearance: grossly normal Assessment & Plan Assessment & Plan (1) Cellulitis: Comment: He has recurrent redness leg and vascular disease Code(s): L03.90 - Cellulitis, unspecified Category: Medical Qualifiers: Site of cellulitis: extremity Site of cellulitis of extremity: lower extremity Plan: Would try PCN V 250 bid ,one month and five refills. See in three to four months. Medications: New 2 penicillin V potassium 250 mg PO BID 30 days 60 tabs 5RF Coding Level of Care Code Est Pt Level 3 (52001) Diagnoses Cellulitis L03.90 Site of cellulitis: extremity Site of cellulitis of extremity: lower extremity
[2024-08-10 11:17] VITALS: PULSE 88; O2SAT 95
--- OUTSIDE RECORDS SUMMARY | 2024-08-10 12:42 | XMS_ITS | Clinical Summary ---
Author Organization [facility] Address [address] [place] [address] Care Team Providers Care Cook Cashier Food Prep Name Role Phone Maty Darnell MD Primary Care Provider [phone] Allergies No known active allergies Medications Medication [...] Advance Directives For more information, please contact: [phone] Latest Code Status on File Code Status [...] in the following way:. . Care Teams Cook Cashier Food Prep Relationship Specialty Start Date End Date Maty Darnell MD [address] [place] [address] [address] [place] [address] PCP - General Internal Medicine 10/24/19
--- OUTSIDE RECORDS SUMMARY | 2024-08-10 12:42 | XMS_ITS | Encounter Summary ---
Author Organization [facility] Address [address] [place] [address] Care Team Providers Care Continuous Improvement Engineer Name Role Phone Maty Darnell MD Primary Care Provider [phone] Encounter Details Date Type Department Care Team (Late st Contact Info) Description 05/25/2024 Lab Requisition [facility] Main Lab [address] [place] [address] Herminio Lee MD [address] [place] [address] Essential (primary) hypertension; Fever, unspecified Social History [...] LAB CHEMISTRY METHOD 05/25/2024 11:48 AM EST [facility] Potassium 4.3 3.5 - 5.5 mmol/L LAB CHEMISTRY METHOD 05/25/2024 11:48 AM [facility] Chloride 101 96 - 110 mmol/L LAB CHEMISTRY METHOD 05/25/2024 11:48 AM [facility] CO2 24 21 - 32 mmol/L LAB CHEMISTRY METHOD 05/25/2024 11:48 AM [facility] Anion Gap 11 3 - 11 LAB CHEMISTRY METHOD 05/25/2024 11:48 AM [facility] Glucose 95 70 - 100 mg/dL LAB CHEMISTRY METHOD 05/25/2024 11:48 AM [facility] BUN 21 5 - 25 mg/dL LAB CHEMISTRY METHOD 05/25/2024 11:48 AM [facility] Creatinine 1.36(H) 0.70 - 1.30 mg/dL LAB CHEMISTRY METHOD 05/25/2024 11:48 AM [facility] eGFR 57(L) >=60 mL/min/1. 73m2 LAB CHEMISTRY METHOD 05/25/2024 11:48 AM [facility] Comment:Calculation based on the??Chronic Kidney Disease Epidemiology Collaboration (CKD-EPI) equation refit??without adjustment for race. BUN/Creatinine Ratio 15.4 LAB CHEMISTRY METHOD 05/25/2024 11:48 AM [facility] Calcium 8.1(L) 8.5 - 10.5 mg/dL LAB CHEMISTRY METHOD 05/25/2024 11:48 AM [facility] Blood Venous blood specimen / Unknown Venipuncture / Unknown 05/25/2024 7:40 AM EST 05/25/2024 10:32 AM EST us Herminio Lee MD LAB BLOOD ORDERABLES Final R esult [facility] [address] [place] [address], * (ABNORMAL) Complete blood count (05/25/2024 7:40 AM EST) [facility] WBC 7.4 4.8 - 10.8 K/mcL LAB HEMETOLOGY METHOD 05/25/2024 11:44 AM [facility] RBC 3.90(L) 4.50 - 5.50 M/mcL LAB HEMETOLOGY METHOD 05/25/2024 11:44 AM [facility] Hemoglobin 11.4(L) 13.5 - 17.5 g/dL LAB HEMETOLOGY METHOD 05/25/2024 11:44 AM [facility] Hematocrit 36.9(L) 42.0 - 54.0 % LAB HEMETOLOGY METHOD 05/25/2024 11:44 AM [facility] MCV 95.3 79.0 - 98.0 FL LAB HEMETOLOGY METHOD 05/25/2024 11:44 AM [facility] MCH 29.5 27.0 - 32.0 pcg LAB HEMETOLOGY METHOD 05/25/2024 11:44 AM [facility] MCHC 30.9(L) 32.0 - 37.0 g/dL LAB HEMETOLOGY METHOD 05/25/2024 11:44 AM [facility] RDW 15.0 11.0 - 15.0 % LAB HEMETOLOGY METHOD 05/25/2024 11:44 AM [facility] Platelets 164 130 - 400 K/mcL LAB HEMETOLOGY METHOD 05/25/2024 11:44 AM [facility] MPV 11.5(H) 7.0 - 11.0 FL LAB HEMETOLOGY METHOD 05/25/2024 11:44 AM [facility] NRBC 0.0 <1.0 % LAB HEMETOLOGY METHOD 05/25/2024 11:44 AM [facility] NRBC Absolute 0.00 <0.10 K/mcL LAB HEMETOLOGY METHOD 05/25/2024 11:44 AM EST [facility] Blood Venous blood specimen / Unknown Venipuncture / Unknown 05/25/2024 7:40 AM EST 05/25/2024 10:32 AM EST us Herminio Lee MD LAB BLOOD ORDERABLES Final R esult [facility] [address] [place] [address], documented in this encounter Visit Diagnoses Diagnosis Essential (primary) hypertension Unspecified essential hypertension Fever, unspecified documented in this encounter Additional Health Concerns Infection Onset Date Last Indicated Resolved Time Respiratory Rule-Out 05/26/2024 05/26/2024 025 3:08 PM EST Influenza 05/26/2024 05/26/2024 06/19/2024 7:04 PM EDT documented as of this encounter Care Teams Continuous Improvement Engineer Relationship Specialty Start Date End Date Maty Darnell MD [address] [place] PCP - General Internal Medicine 10/24/19 documented as of this encounter
--- OUTSIDE RECORDS SUMMARY | 2024-08-10 12:42 | XMS_ITS | Clinical Summary ---
Author Organization [facility] Address [address] [address] Care Team Providers Care Production Roustabout Name Role Phone Bambi Machuca MD Primary Care Provider [phone] Social History Tobacco Use Types Packs/Day Years [...] age to complete [place] [address] Medicare Medicaid [place] Care Teams Production Roustabout Relationship Specialty Start Date End Date Bambi Machuca MD [address] [place], [place] PCP - General Internal Medicine 04/24/22
--- OUTSIDE RECORDS SUMMARY | 2024-08-10 12:42 | XMS_ITS | Encounter Summary ---
Author Organization [facility] Address [address] [place] [address] Care Team Providers Care Refrigerating Technician Name Role Phone Maty Darnell MD Primary Care Provider [phone] Encounter Details Date Type Department Care Team (Late st Contact Info) Description 03/26/2024 Lab Requisition [facility] - Main Lab [address] [facility] [place] [address] Herminio Lee MD [address] [place] [address] Cellulitis, unspecified; Unspecified atrial fibrillation (CMS/HCC V24, CMS/HCC V28); Other mcfp (current) drug therapy Social History Tobacco Use [...] Cellulitis, unspecified Unspecified atrial fibrillation (CMS/HCC) Other m[facility]p (current) drug therapy BASIC METABOLIC PANEL Routine 03/26/2024 8:15 AM EST Cellulitis, unspecified Unspecified atrial fibrillation (CMS/HCC) Other mcfp (current) drug therapy documented in this encounter [...] MD LAB BLOOD ORDERABLES Final R esult [facility] [address] [place] [address], * (ABNORMAL) Complete blood count (03/26/2024 8:15 AM EST) [facility] Signature WBC 6.6 4.8 - 10.8 K/mcL LAB HEMETOLOGY METHOD 03/26/2024 12:43 PM EST [facility] RBC 4.20(L) 4.50 - 5.50 [...] LAB HEMETOLOGY METHOD 03/26/2024 12:43 PM EST [facility] NRBC Absolute 0.00 <0.10 K/mcL LAB HEMETOLOGY METHOD 03/26/2024 12:43 PM EST [facility] Blood Venous blood specimen / Unknown Venipuncture / Unknown 03/26/2024 8:15 AM EST 03/26/2024 11:31 AM EST us Herminio Lee MD LAB BLOOD ORDERABLES Final R esult [facility] [address] [place] [address], documented in this encounter Visit Diagnoses Diagnosis Cellulitis, unspecified Unspecified atrial fibrillation (CMS/HCC V24, CMS/HCC V28) Other mcfp (current) drug therapy documented in this encounter Additional Health Concerns Infection Onset Date Last Indicated Resolved Time Respiratory Rule-Out 05/26/2024 05/26/2024 025 3:08 PM EST Influenza 05/26/2024 05/26/2024 06/19/2024 7:04 PM EDT documented as of this encounter Care Teams Refrigerating Technician Relationship Specialty Start Date End Date Maty Darnell MD [address] [place] [address] Dr [address] [place] PCP - General Internal Medicine 10/24/19 documented as of this encounter
--- OUTSIDE RECORDS SUMMARY | 2024-08-10 12:42 | XMS_ITS | Encounter Summary ---
Author Organization [employer] Address [address] [facility] 7t [place] [address] Care Team Providers Care Dye Winch Operator Name Role Phone Rick Arcos MD Primary Care Prov ider Reason for Visit * Reason Onset Date Comments Verbal Order 07/15/2024 Encounter Details Date Type Department Care Team (Late st Contact Info) Description 07/15/2024 Telephone [facility] [address] [place] [address] Rick Arcos MD [address] [place], [place] [phone] Verbal Order Social History Tobacco Use Types [...] on filedocumented in this encounter Care Teams Dye Winch Operator Relationship Specialty Start Date End Date Rick Arcos MD [address] [place] [address] PCP - General Internal Medicine 05/28/24 Caret[facility]- Jos 06/09/24 documented as of this encounter
--- OUTSIDE RECORDS SUMMARY | 2024-08-10 12:42 | XMS_ITS | Clinical Summary ---
Author Organization [facility] Address [address] [place] [address] Care Team Providers Care Software Tools Build Engineer Name Role Phone Provider, Marlee MCKEE Primary [...] age to complete this topic Care Teams Software Tools Build Engineer Relationship Specialty Start Date End Date Marlee Lipscomb MD PCP - General 07/16/13
--- OUTSIDE RECORDS SUMMARY | 2024-08-10 12:42 | XMS_ITS | Encounter Summary ---
Author Organization [employer] Address [address] [place] [address] [place] [address] Care Team Providers Care Lacquer Dipping Machine Operator Name Role Phone Rick Arcos MD Primary Care Prov ider Reason for Visit * Reason Onset Date Comments Med Refill 07/14/2024 Encounter Details Date Type Department Care Team ([facility] st Contact Info) Description 07/14/2024 Telephone [facility] MED & PEDS [address] [place], [place] [phone] Rick Arcos MD [address] [place] [address] Med Refill Social History Tobacco Use Types [...] 20 MG tablet To be sent to: [facility] documented in this encounter Plan of Treatment Not on file documented as of this encounter Visit Diagnoses Not on filedocumented in this encounter Care Teams Lacquer Dipping Machine Operator Relationship Specialty Start Date End Date Rick Arcos MD [address] [place] [address] PCP - General Internal Medicine 05/28/24 Rodrick Arguello 06/09/24 documented as of this encounter
--- OUTSIDE RECORDS SUMMARY | 2024-08-10 12:42 | XMS_ITS | Encounter Summary ---
Author Organization [employer] Address [address] [place] [address] 7t [place] [address] Care Team Providers Care Wellness Assistant Name Role Phone Rick Arcos MD Primary Care Prov ider Encounter Details Date Type Department Care Team (Latest Contact Info) Description 11/14/2021 Abstract [facility] CONVERSIONS Dental, Provider, DDS Social History Tobacco [...] on filedocumented in this encounter Care Teams Wellness Assistant Relationship Specialty Start Date End Date Rick Arcos MD [address] [place] [address] PCP - General Internal Medicine 05/28/24 Rodrick Arguello 06/09/24 documented as of this encounter
--- OUTSIDE RECORDS SUMMARY | 2024-08-10 12:42 | XMS_ITS | Encounter Summary ---
Author Organization [employer] Address [address] [facility] 7t [place] [address] Care Team Providers Care Milk Inspector Name Role Phone Rick Arcos MD Primary Care Prov ider Reason for Visit * Reason Onset Date Comments Nurse Triage 07/15/2024 Encounter Details Date Type Department Care Team (Late st Contact Info) Description 07/15/2024 Telephone [facility] [address] [place] [address] Rick Arcos MD [address] [place], [place] [phone] Nurse Triage Social History Tobacco Use Types [...] returned to patient who was discharged from [place] on Saturday07/13/2024. Though documentation show Oxycodone was filled for 26 tabs on 07/10/24 patient was not allowed to take home medication upon discharge. Per patient it is the [facility] policy. Last Oxycodone taken at 10am on Saturday.Reports symptom of diarrhea and nausea as no medication available. Patient seeking refill for home use pending [facility] appt with PCP on 07/28/24. Disposition reviewed [...] caller accepted this outcome. Contact pt at [phone] Pt states that the symptoms that he is having are due to him not having his medication oxyCODONE (Oxy-IR) 5 MG immediate release capsule. documented in this encounter Plan of Treatment Not on file documented as of this encounter Visit Diagnoses Not on filedocumented in this encounter Care Teams Milk Inspector Relationship Specialty Start Date End Date Rick Arcos MD [address] [place] [address] PCP - General Internal Medicine 05/28/24 [address] 06/09/24 documented as of this encounter
--- OUTSIDE RECORDS SUMMARY | 2024-08-10 12:42 | XMS_ITS | Encounter Summary ---
Author Organization [facility] Address [address] [place] [address] Care Team Providers Care Dog Daycare Provider Name Role Phone Maty Darnell MD Primary Care Provider [phone] Encounter Details Date Type Department Care Team (Late st Contact Info) Description 06/01/2024 Lab Requisition [facility] - Main Lab [address] [place] [address] Herminio Lee MD [address] [place] [address] Shortness of breath Social History Tobacco Use [...] LAB CHEMISTRY METHOD 06/01/2024 12:30 PM EST [facility] Potassium 4.4 3.5 - 5.5 mmol/L LAB CHEMISTRY METHOD 06/01/2024 12:30 PM [facility] Chloride 107 96 - 110 mmol/L LAB CHEMISTRY METHOD 06/01/2024 12:30 PM [facility] CO2 25 21 - 32 mmol/L LAB CHEMISTRY METHOD 06/01/2024 12:30 PM [facility] Anion Gap 9 3 - 11 LAB CHEMISTRY METHOD 06/01/2024 12:30 PM [facility] Glucose 79 70 - 100 mg/dL LAB CHEMISTRY METHOD 06/01/2024 12:30 PM [facility] BUN 18 5 - 25 mg/dL LAB CHEMISTRY METHOD 06/01/2024 12:30 PM [facility] Creatinine 1.16 0.70 - 1.30 mg/dL LAB CHEMISTRY METHOD 06/01/2024 12:30 PM [facility] eGFR 69 >=60 mL/min/1. 73m2 LAB CHEMISTRY METHOD 06/01/2024 12:30 PM [facility] Comment:Calculation based on the??Chronic Kidney Disease Epidemiology Collaboration (CKD-EPI) equation refit??without adjustment for race. BUN/Creatinine Ratio 15.5 LAB CHEMISTRY METHOD 06/01/2024 12:30 PM [facility] Calcium 8.7 8.5 - 10.5 mg/dL LAB CHEMISTRY METHOD 06/01/2024 12:30 PM [facility] Blood Venous blood specimen / Unknown Venipuncture / Unknown 06/01/2024 10:03 AM EST 06/01/2024 11:00 AM EST us Herminio Lee MD LAB BLOOD ORDERABLES Final R esult [facility] [address] [place] [address], * (ABNORMAL) Complete blood count (06/01/2024 10:03 AM EST) WBC 8.8 4.8 - 10.8 K/mcL LAB HEMETOLOGY METHOD 06/01/2024 1:47 PM [facility] RBC 4.30(L) 4.50 - 5.50 M/mcL LAB HEMETOLOGY METHOD 06/01/2024 1:47 PM [facility] Hemoglobin 12.6(L) 13.5 - 17.5 g/dL LAB HEMETOLOGY METHOD 06/01/2024 1:47 PM [facility] Hematocrit 40.6(L) 42.0 - 54.0 % LAB HEMETOLOGY METHOD 06/01/2024 1:47 PM [facility] MCV 94.9 79.0 - 98.0 FL LAB HEMETOLOGY METHOD 06/01/2024 1:47 PM [facility] MCH 29.4 27.0 - 32.0 pcg LAB HEMETOLOGY METHOD 06/01/2024 1:47 PM [facility] MCHC 31.0(L) 32.0 - 37.0 g/dL LAB HEMETOLOGY METHOD 06/01/2024 1:47 PM [facility] RDW 15.2(H) 11.0 - 15.0 % LAB HEMETOLOGY METHOD 06/01/2024 1:47 PM [facility] Platelets 282 130 - 400 K/mcL LAB HEMETOLOGY METHOD 06/01/2024 1:47 PM [facility] MPV 10.6 7.0 - 11.0 FL LAB HEMETOLOGY METHOD 06/01/2024 1:47 PM [facility] NRBC 0.0 <1.0 % LAB HEMETOLOGY METHOD 06/01/2024 1:47 PM [facility] NRBC Absolute 0.00 <0.10 K/mcL LAB HEMETOLOGY METHOD 06/01/2024 1:47 PM [facility] Blood Venous blood specimen / Unknown Venipuncture / Unknown 06/01/2024 10:03 AM EST 06/01/2024 11:00 AM EST us Herminio Lee MD LAB BLOOD ORDERABLES Final R esult [facility] [address] [place] [address], documented in this encounter Visit Diagnoses Diagnosis Shortness of breath documented in this encounter Additional Health Concerns Infection Onset Date Last Indicated Resolved Time Influenza 05/26/2024 05/26/2024 06/19/2024 7:04 PM EDT documented as of this encounter Care Teams Dog Daycare Provider Relationship Specialty Start Date End Date Maty Darnell MD [address] [place] [address] [address] [place], [place] PCP - General Internal Medicine 10/24/19 documented as of this encounter
--- OUTSIDE RECORDS SUMMARY | 2024-08-10 12:42 | XMS_ITS | Clinical Summary ---
Author Organization [address] Address [address] [place] [address] Phone Care Team Providers Care Gill Tender Name Role Phone Maty Darnell MD Primary Care Provider [phone] Encounters Date Type Department Care Team Description 06/01/2024 Lab Requisition [facility] [address] [place] [phone] Herminio Lee MD Shortness of breath 05/26/2024 Lab Requisition [facility] [address] [place] [phone] Herminio Lee MD Acute cough; Fever, unspecified 05/25/2024 Lab Requisition [facility] [address] [place] [phone] Herminio Lee MD Essential (primary) hypertension; Fever, [...] 06/01/2024 10:03 AM EST Shortness of breath [id number], RSV, FLU A AND B QUALITATIVE RT-PCR, [...] K/mcL LAB HEMETOLOGY METHOD 06/01/2024 1:47 PM [facility] RBC 4.30(L) 4.50 - 5.50 M/mcL LAB HEMETOLOGY METHOD 06/01/2024 1:47 PM [facility] Hemoglobin 12.6(L) 13.5 - 17.5 g/dL LAB HEMETOLOGY METHOD 06/01/2024 1:47 PM [facility] Hematocrit 40.6(L) 42.0 - 54.0 % LAB HEMETOLOGY METHOD 06/01/2024 1:47 PM [facility] MCV 94.9 79.0 - 98.0 FL LAB HEMETOLOGY METHOD 06/01/2024 1:47 PM [facility] MCH 29.4 27.0 - 32.0 pcg LAB HEMETOLOGY METHOD 06/01/2024 1:47 PM [facility] MCHC 31.0(L) 32.0 - 37.0 g/dL LAB HEMETOLOGY METHOD 06/01/2024 1:47 PM [facility] RDW 15.2(H) 11.0 - 15.0 % LAB HEMETOLOGY METHOD 06/01/2024 1:47 PM [facility] Platelets 282 130 - 400 K/mcL LAB HEMETOLOGY METHOD 06/01/2024 1:47 PM [facility] MPV 10.6 7.0 - 11.0 FL LAB HEMETOLOGY METHOD 06/01/2024 1:[address] [facility] NRBC 0.0 <1.0 % LAB HEMETOLOGY METHOD 06/01/2024 1:47 PM [facility] NRBC Absolute 0.00 <0.10 K/mcL LAB HEMETOLOGY METHOD 06/01/2024 1:47 PM [facility] Blood Venous blood specimen / Unknown Venipuncture / Unknown 06/01/2024 10:03 AM EST 06/01/2024 11:00 AM EST Herminio Lee MD LAB BLOOD ORDERABLES Final R esult [facility] [address] [place] [address], * Basic metabolic panel (06/01/2024 10:03 AM EST) Only the most recent of2 resultswithin the time period is included. Sodium 141 133 - 145 mmol/L LAB CHEMISTRY METHOD 06/01/2024 12:30 PM [facility] Potassium 4.4 3.5 - 5.5 mmol/L LAB CHEMISTRY METHOD 06/01/2024 12:30 PM [facility] Chloride 107 96 - 110 mmol/L LAB CHEMISTRY METHOD 06/01/2024 12:30 PM [facility] CO2 25 21 - 32 mmol/L LAB CHEMISTRY METHOD 06/01/2024 12:30 PM [facility] Anion Gap 9 3 - 11 LAB CHEMISTRY METHOD 06/01/2024 12:30 PM [facility] Glucose 79 70 - 100 mg/dL LAB CHEMISTRY METHOD 06/01/2024 12:30 PM [facility] BUN 18 5 - 25 mg/dL LAB CHEMISTRY METHOD 06/01/2024 12:30 PM [facility] Creatinine 1.16 0.70 - 1.30 mg/dL LAB CHEMISTRY METHOD 06/01/2024 12:30 PM [facility] eGFR 69 >=60 mL/min/1. 73m2 LAB CHEMISTRY METHOD 06/01/2024 12:30 PM [facility] Comment:Calculation based on the??Chronic Kidney Disease Epidemiology Collaboration (CKD-EPI) equation refit??without adjustment for race. BUN/Creatinine Ratio 15.5 LAB CHEMISTRY METHOD 06/01/2024 12:30 PM [facility] Calcium 8.7 8.5 - 10.5 mg/dL LAB CHEMISTRY METHOD 06/01/2024 12:30 PM [facility] Blood Venous blood specimen / Unknown Venipuncture / Unknown 06/01/2024 10:03 AM EST 06/01/2024 11:00 AM EST Herminio Lee MD LAB BLOOD ORDERABLES Final R esult [facility] [address] [place] [address], * (ABNORMAL) [id number], RSV, Influenza A and B qualitative RT-PCR (05/26/2024 7:00 AM EST) SARS COV-2 Not Detected Not Detected LAB MOLECULAR DIAGNOSTICS METHOD 05/26/2024 3:08 PM [facility] Comment: Disclaimer: The manner in which this information is used to guide patient care is the responsibility of the healthcare provider. Testing was performed using the Monitor My Meds SARS-CoV-2 test. This test has been authorized [...] for Healthcare Providers can be found at: https://www.fda.gov/media/244643/download Fact sheet for Patients can be found at: https://www.fda.gov/media/990105/download Influenza A PCR Detected(A ) Not Detected LAB MOLECULAR DIAGNOSTICS METHOD 05/26/2024 3:08 PM [facility] Comment:This patient is posi tive for influenza A. If the patient is admitted, please order the Respiratory Virus Panel PCR (Epic ID: [id number]) so our lab can subtype the influenza A, per CDC recommendations. Influenza B PCR Not Detected Not Detected LAB MOLECULAR DIAGNOSTICS METHOD 05/26/2024 3:08 PM [facility] RSV PCR Not Detected Not Detected LAB MOLECULAR DIAGNOSTICS METHOD 05/26/2024 3:08 PM [facility] Swab Nasopharyngeal structure / Unknown Non-blood Collection / Unknown 05/26/2024 7:00 AM EST 05/26/2024 11:23 AM EST Herminio Lee MD LAB MICROBIOLOGY - GENERAL O RDERABLES Final Result [facility] [address] [place] [address], from Last 3 Months Insurance MEDICARE MEDICAID - [place] Care Teams Gill Tender Relationship Specialty Start Date End Date Maty Darnell MD [address] [place] [address] Dr [address] [place], [place] PCP - General Internal Medicine 10/24/19
--- OUTSIDE RECORDS SUMMARY | 2024-08-10 12:42 | XMS_ITS | Referral Summary ---
Author Organization [facility] Address [address] [place] [address] Care Team Providers Care Application Security Consultant Name Role Phone [facility] Primary Care Provider [phone] Allergies Active Allergy Reactions Criticality Noted Date [...] 2 days prior to admission. Was at [facility] prior to current presentation. Assessed by [...] 2 days prior to admission. Was at [facility] prior to current presentation. Assessed by [...] 2 days prior to admission. Was at [facility] prior to current presentation. Assessed by [...] 2 days prior to admission. Was at [facility] prior to current presentation. Assessed by [...] 2 days prior to admission. Was at [facility] prior to current presentation. Assessed by addiction psych this admission who noted patient not interested in MAT for AUD. He was monitored on CIWA which was discontinued on 02/24. - outpatient PCP and AA follow up Assessment & Plan (02/26/2024 6:00 PM EST): Patient reports drinking one quart of hard liquor daily, last drink 2 days prior to admission. Was at [facility] prior to current presentation. Assessed by addiction psych this admission who noted patient not interested in MAT for AUD. He was monitored on CIWA which was discontinued on 02/24. - outpatient PCP and AA follow up Assessment & Plan (02/25/2024 7:00 PM EST): Patient reports drinking one quart of hard liquor daily, last drink 2 days prior to admission. Was at [facility] prior to current presentation. Assessed by [...] chronic venous stasis. He was hospitalized at [facility] back in July 2023 and [...] chronic venous stasis. He was hospitalized at [facility] back in July 2023 and [...] chronic venous stasis. He was hospitalized at [facility] back in July 2023 and [...] chronic venous stasis. He was hospitalized at [facility] back in July 2023 and [...] the leg swelling. He was hospitalized at [facility] back in July 2023 and [...] the leg swelling. He was hospitalized at [facility] back in July 2023 and [...] the leg swelling. He was hospitalized at [facility] back in July 2023 and [...] (03/15/2024 10:34 AM EST): Patient presented from [facility] for evaluation of right lower extremity swelling and redness. He was initiated on clindamycin at [facility] but without improvement so sent to [facility] for evaluation. L. Duplex negative for [...] will need to clear while inpatient to nursing home vs other housing Assessment & Plan (03/14/2024 5:17 PM EST): Patient presented from [facility] for evaluation of right lower extremity swelling and redness. He was initiated on clindamycin at [facility] but without improvement so sent to [facility] for evaluation. L. Duplex negative for [...] will need to clear while inpatient to nursing home vs other housing Assessment & Plan (03/09/2024 7:28 PM EST): Was initiated on clindamycin at [facility] but without improvement so sent to [facility] for evaluation. L. Duplex negative for [...] PM EST): Was initiated on clindamycin at [facility] but without improvement so sent to [facility] for evaluation. L. Duplex negative for [...] Plan (03/07/2024 1:35 PM EST): Presents from [facility] for evaluation of right lower extremity cellulitis. Was initiated on clindamycin at [facility] but without improvement so sent to [facility] for evaluation. He was sent for [...] Plan (02/26/2024 6:00 PM EST): Presents from [facility] for evaluation of right lower extremity cellulitis. Was initiated on clindamycin at [facility] but without improvement so sent to [facility] for evaluation. He was sent for [...] Plan (02/25/2024 7:00 PM EST): Presents from [facility] for evaluation of right lower extremity cellulitis. Was initiated on clindamycin at [facility] but without improvement so sent to [facility] for evaluation. He was sent for [...] Date Smoking Tobacco: Never Smokeless Tobacco: Never [facility] Utilities Answer Date Recorded In the [...] 02/22/2024 02/22/2024 Insurance MEDICARE [facility] [employer] Advance Directives Documents on File Type Date Recorded Patient Doll Wig Hackler Expl anation Health Care Proxy 03/11/2024 2:04 PM 03-11 * Full Code (Latest Code Status on File) Date Activated Date Inactivated Comments 02/22/2024 3:34 PM 03/16/2024 6:28 PM Care Teams Application Security Consultant Relationship Specialty Start Date End Date [address] [address] PCP - General 02/22/24
--- OUTSIDE RECORDS SUMMARY | 2024-08-10 12:42 | XMS_ITS | Encounter Summary ---
Author Organization [facility] Address [address] [place] [phone] Care Team Providers Care Loss Prevention Guard Name Role Phone Maty Darnell MD Primary Care Provider [phone] Encounter Details Date Type Department Care Team (Late st Contact Info) Description 04/02/2024 Lab Requisition [facility] - Main Lab [address] [place] [address] Herminio Lee MD [address] [place] [address] Unspecified atrial fibrillation (CMS/HCC V24, CMS/HCC V28) [...] CHEMISTRY METHOD 04/03/2024 10:04 AM EST [facility] Potassium 4.4 3.5 [...] esult [facility] [address] [place] [address], * (ABNORMAL) Complete blood count (04/03/2024 7:26 AM EST) WBC 7.0 4.8 - 10.8 K/mcL LAB HEMETOLOGY METHOD 04/03/2024 9:49 AM [facility] RBC 4.00(L) 4.50 - 5.50 M/mcL LAB HEMETOLOGY METHOD 04/03/2024 9:49 AM [facility] Hemoglobin 12.2(L) 13.5 - 17.5 g/dL LAB HEMETOLOGY METHOD 04/03/2024 9:49 AM [facility] Hematocrit 40.3(L) 42.0 - 54.0 % LAB HEMETOLOGY METHOD 04/03/2024 9:49 AM [facility] MCV 100.0(H) 79.0 - 98.0 FL LAB HEMETOLOGY METHOD 04/03/2024 9:49 AM [facility] MCH 30.3 27.0 - 32.0 pcg LAB HEMETOLOGY METHOD 04/03/2024 9:49 AM EST [facility] MCHC 30.3(L) 32.0 - 37.0 g/dL LAB HEMETOLOGY METHOD 04/03/2024 9:49 AM [facility] RDW 15.3(H) 11.0 - 15.0 % LAB HEMETOLOGY METHOD 04/03/2024 9:49 AM EST [facility] Platelets 326 130 - 400 K/mcL LAB HEMETOLOGY METHOD 04/03/2024 9:49 AM [facility] MPV 10.2 7.0 - 11.0 FL LAB HEMETOLOGY METHOD 04/03/2024 9:49 AM [facility] NRBC 0.0 <1.0 % LAB HEMETOLOGY METHOD 04/03/2024 9:49 AM [facility] NRBC Absolute 0.00 <0.10 K/mcL LAB HEMETOLOGY METHOD 04/03/2024 9:49 AM [facility] Blood Venous blood specimen / Unknown Venipuncture / Unknown 04/03/2024 7:26 AM EST 04/03/2024 9:42 AM EST Herminio Lee MD LAB BLOOD ORDERABLES Final R esult [facility] [address] [place] [address], documented in this encounter Visit Diagnoses Diagnosis Unspecified atrial fibrillation (CMS/HCC V24, CMS/HCC V28) documented in this encounter Additional Health Concerns Infection Onset Date Last Indicated Resolved Time Respiratory Rule-Out 05/26/2024 05/26/2024 025 3:08 PM EST Influenza 05/26/2024 05/26/2024 06/19/2024 7:04 PM EDT documented as of this encounter Care Teams Loss Prevention Guard Relationship Specialty Start Date End Date Maty Darnell MD [address] [place] [address] Dr [address] ANNEL Arguello PCP - General Internal Medicine 10/24/19 documented as of this encounter
--- OUTSIDE RECORDS SUMMARY | 2024-08-10 12:42 | XMS_ITS | Clinical Summary ---
Author Organization [facility] Address [address] [place] [address] Care Team Providers Care Drilling Field Professional Name Role Phone [facility] Primary Care Provider [phone] Allergies Active Allergy Reactions Criticality Noted Date [...] 2 days prior to admission. Was at [facility] prior to current presentation. Assessed by addiction [...] 2 days prior to admission. Was at [facility] prior to current presentation. Assessed by addiction [...] 2 days prior to admission. Was at [facility] prior to current presentation. Assessed by addiction [...] 2 days prior to admission. Was at [facility] prior to current presentation. Assessed by addiction [...] 2 days prior to admission. Was at [facility] prior to current presentation. Assessed by addiction psych this admission who noted patient not interested in MAT for AUD. He was monitored on CIWA which was discontinued on 02/24. - outpatient PCP and AA follow up Assessment & Plan (02/26/2024 6:00 PM EST): Patient reports drinking one quart of hard liquor daily, last drink 2 days prior to admission. Was at [facility] prior to current presentation. Assessed by addiction psych this admission who noted patient not interested in MAT for AUD. He was monitored on CIWA which was discontinued on 02/24. - outpatient PCP and AA follow up Assessment & Plan (02/25/2024 7:00 PM EST): Patient reports drinking one quart of hard liquor daily, last drink 2 days prior to admission. Was at [facility] prior to current presentation. Assessed by addiction [...] (03/15/2024 10:34 AM EST): Patient presented from [facility] for evaluation of right lower extremity swelling and redness. He was initiated on clindamycin at [facility] but without improvement so sent to [facility] for evaluation. L. Duplex negative for DVT. [...] will need to clear while inpatient to custodial vs other housing Assessment & Plan (03/14/2024 5:17 PM EST): Patient presented from [facility] for evaluation of right lower extremity swelling and redness. He was initiated on clindamycin at [facility] but without improvement so sent to [facility] for evaluation. L. Duplex negative for DVT. [...] will need to clear while inpatient to custodial vs other housing Assessment & Plan (03/09/2024 7:28 PM EST): Was initiated on clindamycin at [facility] but without improvement so sent to [facility] for evaluation. L. Duplex negative for DVT. [...] PM EST): Was initiated on clindamycin at [facility] but without improvement so sent to [facility] for evaluation. L. Duplex negative for DVT. [...] Plan (03/07/2024 1:35 PM EST): Presents from [facility] for evaluation of right lower extremity cellulitis. Was initiated on clindamycin at [facility] but without improvement so sent to [facility] for evaluation. He was sent for further [...] Plan (02/26/2024 6:00 PM EST): Presents from [facility] for evaluation of right lower extremity cellulitis. Was initiated on clindamycin at [facility] but without improvement so sent to [facility] for evaluation. He was sent for further [...] Plan (02/25/2024 7:00 PM EST): Presents from [facility] for evaluation of right lower extremity cellulitis. Was initiated on clindamycin at [facility] but without improvement so sent to [facility] for evaluation. He was sent for further [...] Date Smoking Tobacco: Never Smokeless Tobacco: Never [facility] Utilities Answer Date Recorded In the past [...] resistant organisms MRSA 02/22/2024 02/22/2024 Insurance MEDICARE [facility] [employer] Advance Directives Documents on File Type Date Recorded Patient Sound Installation Worker Expl anation Health Care Proxy 03/11/2024 2:04 PM 03-11 * Full Code (Latest Code Status on File) Date Activated Date Inactivated Comments 02/22/2024 3:34 PM 03/16/2024 6:28 PM Care Teams Drilling Field Professional Relationship Specialty Start Date End Date [address] [address] PCP - General 02/22/24
--- OUTSIDE RECORDS SUMMARY | 2024-08-10 12:42 | XMS_ITS | Encounter Summary ---
Author Organization [employer] Address [address] [facility] 7t [place] [address] Care Team Providers Care Senior Procurement Manager Name Role Phone Rick Arcos MD Primary Care Prov ider Reason for Visit * Reason Onset Date Comments Appointment Request 06/24/2024 Encounter Details Date Type Department Care Team ([facility] st Contact Info) Description 06/24/[address] [facility] [address] [place] [address] Rick Arcos MD [address] [place], [place] [phone] Appointment Request Social History Tobacco Use Types [...] on filedocumented in this encounter Care Teams Senior Procurement Manager Relationship Specialty Start Date End Date Rick Arcos MD [address] [place] [address] PCP - General Internal Medicine 05/28/24 Rodrick Arguello 06/09/24 documented as of this encounter
--- OUTSIDE RECORDS SUMMARY | 2024-08-10 12:42 | XMS_ITS | Encounter Summary ---
Author Organization [facility] Address [address] [place] [id number] Care Team Providers Care Gardening Manager Name Role Phone Maty Darnell MD Primary Care Provider [phone] Encounter Details Date Type Department Care Team (Late st Contact Info) Description 05/26/2024 Lab Requisition [facility] - Main Lab [address] [place] [address] Herminio Lee MD [address] [place] [address] Acute cough; Fever, unspecified Social [...] Procedure Name Priority Date/Time Associated Diagnosis Comments [id number], RSV, FLU A AND B QUALITATIVE RT-PCR, LOCAL REFERENCE LAB Routine 05/26/2024 7:00 AM EST Acute cough Fever, unspecified documented in this encounter Results * (ABNORMAL) [id number], RSV, Influenza A and B qualitative RT-PCR (05/26/2024 7:00 AM EST) SARS COV-2 Not Detected Not Detected LAB MOLECULAR DIAGNOSTICS METHOD 05/26/2024 3:08 PM EST [facility] Comment: Disclaimer: The manner in which this information is used to guide patient care is the responsibility of the healthcare provider. Testing was performed using the Fio Alinity m SARS-CoV-2 test. This test has [...] for Healthcare Providers can be found at: https://www.fda.gov/media/244830/download Fact sheet for Patients can be found at: https://www.fda.gov/media/232795/download Influenza A PCR Detected(A ) Not Detected LAB MOLECULAR DIAGNOSTICS METHOD 05/26/2024 3:08 PM [facility] Comment:This patient is posi tive for influenza A. If the patient is admitted, please order the Respiratory Virus Panel PCR (Epic ID: [id number]) so our lab can subtype the influenza [...] MICROBIOLOGY - GENERAL O RDERABLES Final Result [facility] [address] [place] [address], documented in this encounter Visit Diagnoses Diagnosis Acute cough Fever, unspecified documented in this encounter Additional Health Concerns Infection Onset Date Last Indicated Resolved Time Respiratory Rule-Out 05/26/2024 05/26/2024 025 3:08 PM EST Influenza 05/26/2024 05/26/2024 06/19/2024 7:04 PM EDT documented as of this encounter Care Teams Gardening Manager Relationship Specialty Start Date End Date Maty Darnell MD [address] [place] [address] Dr [address] ANNEL Arguello PCP - General Internal Medicine 10/24/19 documented as of this encounter
--- OUTSIDE RECORDS SUMMARY | 2024-08-10 12:42 | XMS_ITS | Clinical Summary ---
Author Organization [employer] Address [address] [facility] 7[address] [place] [address] Care Team Providers Care Music Specialist Name Role Phone Rick Arcos MD [...] 11:21 AM EST): Patient lives on a retirement 3 years [facility] Pmhx: Afib, severe neuropathy, Pshx: exploratory laparotomy due to obstruction 2019, stomach bypass 1994, deviated septum, prostate 1990's, plantar fasciatis both feet, All:- Meds: as above Encounters Date Type Department Care Team Description 07/21/2024 Telephone [facility] [address] [place] [address] Rick Arcos MD Nurse Triage 07/21/2024 Telephone [facility] [address] [place] [address] Rick Arcos MD Verbal order 07/21/2024 Telephone [facility] [address] [place] [address] Rick Arcos MD Durable Medical Equipment 07/20/2024 Refill [facility] [address] [place] [address] Rick Arcos MD 07/17/2024 Telephone [facility] [address] [place] [address] Rick Arcos MD Verbal Order 07/15/2024 Telephone [facility] [address] [place] [address] Rick Arcos MD Med Refill 07/15/2024 Telephone [facility] [address] [place] [address] Rick Arcos MD 07/15/2024 Telephone [facility] [address] [place] [address] Rick Arcos MD 07/15/2024 Telephone [facility] [address] [place] [address] Rick Arcos MD Nurse Triage 07/15/[address] [address] Rick Arcos MD Verbal Order 07/14/2024 Telephone [facility] [address] [place] [address] Rick Arcos MD Med Refill 07/14/[address] [address] Rick Arcos MD Medication Question 07/14/[address] [address] Rick Arcos MD verbal order 07/10/2024 Patient Outreach [address] [address] Rick Arcos MD Transition Of Care (Tcm) (HDF scheduled) 06/24/[address] [address] Rick Arcos MD Appointment Request 06/19/[address] [address] Rick Arcos MD verbal order 06/19/[address] [address] Rick Arcos MD Nurse Triage 06/18/2024 Patient Outreach [facility] [address] [place] [address] Rick Arcos MD Pre-visit Planning (SDOH will need to be completed in office. ) 06/10/2024 Telephone [facility] [address] [place] [address] Rick Arcos MD Record Request 06/09/[address] [address] Rick Arcos MD Care Coordination; Medication Question 06/05/[address] [address] Rick Arcos MD Verbal Orders 06/03/2024 Orders Only [facility] [address] [place] [address] Rick Arcos MD 06/03/2024 Telephone [facility] [address] [place] [address] Rick Arcos MD Prior Authorization 05/29/2024 Refill [facility] [address] [place] [address] Barbara Velazquez, RN Other chronic pain 05/28/2024 Telephone [facility] [address] [place] [address] Barbara Velazquez RN 05/27/2024 Refill [facility] [address] [place] [address] Rick Arcos MD Other chronic pain (Primary Dx) 05/27/2024 Refill [facility] [address] [place] [address] Rick Arcos MD 05/22/2024 Orders Only [facility] [address] [place] [address] Rick Arcos MD Muscle spasm (Primary Dx) from Last 3 Months Immunizations Name Administration [...] Processed 9 N/A 05/31/2024 1:24 AM EST [facility] (CLIA #:[id number]) Comment:An empty collection kit was received in the laboratory. The patient will be contacted to initiate a new sample collection. Stool specimen (specimen) Rectal contents / Unknown 05/30/2024 10:41 AM EST Rick Genao MD LAB MOLECULAR DIAG NOSTICS ORDERABLES Final Result [facility] (CLIA #:[id number]) [address] [place] [address], from Last 3 Months Insurance [facility] STANDARD MEDICARE [place] STAND ADULT Care Teams Music Specialist Relationship Specialty Start Date End Date Rick Arcos MD [address] [place] [phone] PCP - General Internal Medicine 05/28/24 Rodrick Arguello 06/09/24
--- OUTSIDE RECORDS SUMMARY | 2024-08-10 12:42 | XMS_ITS | Encounter Summary ---
Author Organization [employer] Address [address] [facility] 7t [place] [address] Care Team Providers Care Deputy Probation Officer Name Role Phone Rick Arcos MD Primary Care Prov ider Reason for Visit * Reason Onset Date Comments Medication Question 07/14/2024 Encounter Details Date Type Department Care Team ([facility] st Contact Info) Description 07/14/2024 Telephone [facility] [address] [place] [address] Rick Arcos MD [address] [place], [place] [phone] Medication Question Social History Tobacco Use Types [...] is not getting medication. Contact pt at [phone] documented in this encounter Plan of Treatment Not on file documented as of this encounter Visit Diagnoses Not on filedocumented in this encounter Care Teams Deputy Probation Officer Relationship Specialty Start Date End Date Rick Arcos MD [address] [place] [phone] PCP - General Internal Medicine 05/28/24 [address] Jos 06/09/24 documented as of this encounter
--- OUTSIDE RECORDS SUMMARY | 2024-08-10 12:43 | XMS_ITS | Encounter Summary ---
Author Organization [employer] Address [address] [facility] 7t [place] [address] Care Team Providers Care Phlebotomy Tech Name Role Phone Rick Arcos MD Primary Care Prov ider Encounter Details Date Type Department Care Team (Late st Contact Info) Description 06/03/2024 Orders Only [facility] [address] [place] [address] Rick Arcos MD [address] [place] [address] Social History Tobacco Use Types Packs/Day Years [...] on filedocumented in this encounter Care Teams Phlebotomy Tech Relationship Specialty Start Date End Date Rick Arcos MD [address] [place] [address] PCP - General Internal Medicine 05/28/24 Rodrick Arguello 06/09/24 documented as of this encounter
--- OUTSIDE RECORDS SUMMARY | 2024-08-10 12:43 | XMS_ITS | Encounter Summary ---
Author Organization [employer] Address [address] [facility] 7t [place] [address] Care Team Providers Care Marble Machine Tender Name Role Phone Rick Arcos MD Primary Care Prov ider Reason for Visit * Reason Onset Date Comments Appointment 08/22/2022 Encounter Details Date Type Department Care Team ([facility] st Contact Info) Description 08/22/2022 Telephone [facility] [address] [place], [place] [phone] Martín Dumont DDS [address] [place], [place] [phone] Appointment Social History Tobacco Use Types Packs/Day [...] on filedocumented in this encounter Care Teams Marble Machine Tender Relationship Specialty Start Date End Date Rick Arcos MD [address] [place], [place] [phone] PCP - General Internal Medicine 05/28/24 Rodrick Arguello 06/09/24 documented as of this encounter
--- OUTSIDE RECORDS SUMMARY | 2024-08-10 12:43 | XMS_ITS | Encounter Summary ---
Author Organization [employer] Address [address] [place] [address] 7t [place] [address] Care Team Providers Care Vice President Of Operations Name Role Phone Rick rAcos MD Primary Care Prov ider Reason for Visit * Reason Onset Date Comments Hospital Follow-up 04/15/2024 Encounter Details Date Type Department Care Team ([facility] st Contact Info) Description 04/15/2024 Telephone [facility] [address] [place], [place] [phone] Barrington Morataya MD [address] [place] [address] Hospital Follow-up Social History Tobacco Use Types [...] from pt requesting a HDF appt. Hospital: [facility] Date of admission: 03/17/2024 Discharge date: 05/09/2024 Diagnosed: Discuss with pt. *Send message to [facility] Clinical Care Coordinators documented in this encounter Plan of Treatment Not on file documented as of this encounter Visit Diagnoses Not on filedocumented in this encounter Care Teams Vice President Of Operations Relationship Specialty Start Date End Date Rick Arcos MD [address] [place] [address] PCP - General Internal Medicine 05/28/24 [facility] 06/09/24 documented as of this encounter
--- OUTSIDE RECORDS SUMMARY | 2024-08-10 12:43 | XMS_ITS | Encounter Summary ---
Author Organization [employer] Address [address] [facility] 7t [place] [address] Care Team Providers Care Enterprise Software Developer Name Role Phone Rick Arcos MD Primary Care Prov ider Reason for Visit * Reason Onset Date Comments Medication Question 05/11/2024 Encounter Details Date Type Department Care Team ([facility] st Contact Info) Description 05/11/2024 Telephone [facility] [address] [place] [address] Rick Arcos MD [address] [place], [place] [phone] Medication Question Social History Tobacco Use Types [...] to prescribe medications and send them to [facility] pharmacy . Pt states he gave provider a list of about 20 medications documented in this encounter Plan of Treatment Not on file documented as of this encounter Visit Diagnoses Not on filedocumented in this encounter Care Teams Enterprise Software Developer Relationship Specialty Start Date End Date Rick Arcos MD [address] [place] [address] PCP - General Internal Medicine 05/28/24 Rodrick Arguello 06/09/24 documented as of this encounter
--- OUTSIDE RECORDS SUMMARY | 2024-08-10 12:43 | XMS_ITS | Clinical Summary ---
Author Organization [facility] Address [address] [place] [address] Care Team Providers Care Lidar Scientist Name Role Phone Unavailable Primary Care Provider [...]
== END 2024-08-10 11:56 | disposition home or self-care (01) ==
LOC: HO.HID 11:01
PROVIDERS: Visit Provider Internal Medicine
DX: L03.90 Cellulitis, unspecified (principal)
CPT/HCPCS: 99213

== ENCOUNTER → 2024-08-10 11:01 | Outpatient (BNVA) | payer MEDICARE, OTHER, SELFPAY | PROVIDERS: Visit Provider Internal Medicine | DX: L03.115 Cellulitis of right lower limb (principal) | CPT/HCPCS: 99212 ==

== ENCOUNTER 2024-08-11 13:02 | Outpatient (AMB) | payer MEDICARE, SELFPAY ==
--- NOTE | 2024-08-11 13:03 | MHC.OFFVIS ---
Vital Signs 08/11/24 13:04 Height 6 ft Weight 307 lb BMI 41.6 BP 135/86 Blood Pressure Location Lt brachial Position Sitting Intake Visit Reasons: [facility] Follow up non healing wounds Intake Note: Pt presents to the office today for a new patient visit [facility] follow up non healing wounds. Pt states his right leg is worse and more painful than his left. Pt states both legs have discoloration from below the knees to his toes. Allergies No Known Allergies Allergy (Verified 08/11/24 13:06) HPI [facility] Follow up non healing wounds: Details: Bennie is presenting today as a follow up to nonhealing wounds. He was recently admitted for nonhealing wounds of the right lower extremity. He states the wounds have since healed but he continues with stabbing and burning pain in his right lower extremity and foot. He states his leg is constantly aching. He is upset because there have been recent changes to his Oxy, from q4h to q8h; he states that the pain gets worse every 3 hours and q8h is not enough. He states he is also taking Tylenol with the Oxy. He is also on Gabapentin q8h. He has no new concerns today in regards to his legs. [facility] Medical History Morbid obesity Atrial fibrillation with RVR Chest pain Atrial fibrillation with RVR Sciatica ARIAN (acute kidney injury) Atrial fibrillation with RVR Alcohol withdrawal delirium Oral thrush Metabolic acidosis with increased anion gap and accumulation of organic acids Alcohol withdrawal Heart failure with left ventricular ejection fraction greater than or equal to 50 percent Incarcerated incisional hernia Atrial fibrillation with RVR Alcohol dependence Alcohol intoxication Thoracic aortic aneurysm Chronic atrial fibrillation Toenail deformity Dyslipidemia Anemia History of alcohol abuse Morbid obesity Insomnia Depression Pulmonary embolism Obesity Surgical History History of incisional hernia repair S/P cholecystectomy History of inguinal hernia repair Hx of gastric bypass Family History Mother No problems noted. Father No problems noted. Family/Other Substance use disorder Social History Household Members: None Household Members Other:: lives with mother Housing: Apartment Do you presently have visiting nurse or other home services: No Unable to assess alcohol history related to: Unable to respond Alcohol intake: former Year quit: 2019 Comment: pt refusing alarms Patient Tobacco Use Status: Never used Tobacco e-Cigarette/Vaping Use: Never Used Second Hand Smoke Exposure: No Substance Use Type: Other Advance Directives Date on File: 03/13/21 service: No Current occupational status: retired Review of Systems Const Reports as per HPI and Denies weakness ENT Reports Normal hearing present and Denies dizziness Card Reports as per HPI, Denies chest pain, Denies chest pain at rest, Denies chest pain with activity, Denies dyspnea and Denies dyspnea on exertion Resp Reports as per HPI, Denies cough, Denies dyspnea and Denies dyspnea on exertion GI Reports as per HPI, Denies abdominal pain, Denies nausea and Denies vomiting Musc Denies numbness Skin/Breast Reports as per HPI, Denies erythema and Denies wounds Neuro Reports Normal hearing present, Denies dizziness, Denies numbness, Denies Sensory deficit (Neuro) and Denies weakness Psych Reports no additional complaints Endo Reports no additional complaints Physical Exam Vital Signs: Last Vital Signs BP 135/86 08/11/24 13:04 BMI result Body Mass Index 41.6 Const General: healthy appearing and no acute distress Orientation/consciousness: patient oriented x3 HEENT Head: Yes normal to inspection Ears: hearing grossly normal bilaterally Mouth: Normal oral and palatal mucosa present Resp Effort & Inspection: normal respiratory effort and able to speak in complete sentences Auscultation: clear to auscultation bilaterally Cardio Jugular venous distension: no JVD Rate: regular rate Rhythm: regular rhythm Heart sounds: S1 normal heart sound present and S2 normal heart sound present Bruits: no abdominal aortic bruits, no carotid bruits, no femoral bruits and no renal bruits Peripheral pulses: Peripheral pulses 2+ throughout GI Inspection: Yes normal to inspection Palpation (GI): No Abdominal aortic bruit present Skin General skin exam: no rashes or lesions noted Wounds: no wounds Hair: normal Neuro General: patient oriented x3 Cranial nerves: Yes Normal hearing present Cognition (Neuro): normal cognition Gait exam (Neuro): Normal gait present Motor exam (neuro): 5/5 motor strength present throughout Sensory Exam: No Sensory deficit (Neuro) Extrem Other: Right lower extremity: +2 pitting edema noted, from the pretibial area to the toes. Erythematous discoloration/hemosiderin staining noted from the pretibial area to the toes. No wounds, blisters, or weeping noted. Palpable DP pulse noted. Foot warm to the touch. Left lower extremity: +1 pitting edema noted, from the mid-calf to the ankles. Erythematous discoloration/hemosiderin staining noted from the mid-calf to the toes. No blisters/wounds noted. Palpable DP pulse. General: Yes normal to inspection, Yes full ROM, Yes capillary refill normal and Yes normal gait Assessment & Plan Assessment & Plan (1) Venous stasis dermatitis of both lower extremities: Code(s): I87.2 - Venous insufficiency (chronic) (peripheral) Category: Medical Plan: Bennie is presenting today for a hospital follow up s/p cellulitis. He has an extensive hx of hospitalizations/SNF stays for ongoing bilateral lower extremity weeping/wounds. The wounds have healed and there are no new wounds/weeping noted. He does continue with discoloration and +2 pitting edema. He has not been wearing compression socks. He is upset about being discharged home soon with little services at home. We discussed to start taking more Tylenol and decreasing the Oxy; he states he has been on it for >3y. I discussed with him that it is used for acute pain and he will need to talk to the provider about adding another medication/increasing his Gabapentin dosage possibly. I discussed with the pt to follow up with us in 1m. We discussed that if he has any concerns prior to his follow up, to reach back out to us. Thank you for allowing us to participate in the patient's care. If there are any questions or concerns, please do not hesitate to reach out to us. Coding Level of Care Code Est Pt Level 3 (05467) Diagnoses Venous stasis dermatitis of both lower extremities I87.2
[2024-08-11 13:04] VITALS: BP 135/86; BMI 41.6
--- OUTSIDE RECORDS SUMMARY | 2024-08-11 14:18 | XMS_ITS | Clinical Summary ---
Author Organization [employer] Address [address] [facility] [address] [place] [address] Care Team Providers Care Jeep Mechanic Name Role Phone Rick Arcos MD [...] 2 times daily. 360 tablet 3 05/22/19 25 Active atorvastatin (Lipitor) 40 MG tablet Take 1 tablet (40 mg) by mouth Once per day. 90 tablet 3 05/22/19 25 Active cyclobenzaprin e (Flexeril) 10 MG tabletIndicati [...] by mouth 2 times daily. 180 tablet 05/22/19 25 Active venlafaxine XR (Effexor XR) 37.5 MG 24 hr capsule Take 1 capsule (37.5 mg) by mouth Once per day. 90 capsule 05/22/19 25 Active vilazodone (Viibryd) 20 MG [...] albuterol 108 (90 Base) MCG/ACT inhaler 06/01/19 Active dilTIAZem CD (Cardizem CD) 120 MG 24 hr capsule Take 1 capsule by mouth Once per day. 07/14/19 Active gabapentin (Neurontin) 600 MG tablet Take 1 tablet by mouth 3 times daily. 07/14/19 Active hydrocortisone 2.5 % cream Use as directed 01/30/20 Active hydrOXYzine HCl (Atarax) 25 MG tablet Take 1 tablet by mouth every 8 (eight) hours if needed. 01/09/20 Active ipratropium-al buterol (Duo-Neb) 0.5-2.5 mg/3 mL nebulizer solution Take 3 mL by nebulization. 05/29/19 Active nystatin (Mycostatin) cream Apply 1 Application. [...] 11:21 AM EST): Patient lives on a detention 3 years [facility] Pmhx: Afib, severe neuropathy, Pshx: exploratory laparotomy due to obstruction 2019, stomach bypass 1994, deviated septum, prostate 1990's, plantar fasciatis both feet, All:- Meds: as above Encounters Date Type Department Care Team Description 07/21/2024 Telephone [facility] [address] [place] [address] Rick Arcos MD Nurse Triage 07/21/2024 Telephone [facility] [address] [place] [address] Rick Arcos MD Verbal order 07/21/2024 Telephone [facility] [address] [place] [address] Rick Arcos MD Durable Medical Equipment 07/20/2024 Refill [facility] [address] [place] [address] Rick Arcos MD 07/17/2024 Telephone [facility] MEDICINE [address] [place] [address] Rick Arcos MD Verbal Order 07/15/2024 Telephone [facility] [address] [place] [address] Rick Arcos MD Med Refill 07/15/2024 Telephone [facility] [address] [place] [address] Rick Arcos MD 07/15/2024 Telephone [facility] [address] [place] [address] Rick Arcos MD 07/15/2024 Telephone [facility] [address] [place] [address] Rick Arcos MD Nurse Triage 07/15/2024 Telephone [facility] [address] [place] [address] Rick Arcos MD Verbal Order 07/14/2024 Telephone [facility] [address] [place] [address] Rick Arcos MD Med Refill 07/14/2024 Telephone [facility] [address] [place] [address] Rick Arcos MD Medication Question 07/14/[address] [address] Rick Arcos MD verbal order 07/10/2024 Patient Outreach [address] [address] Rick Arcos MD Transition Of Care (Tcm) (HDF scheduled) 06/24/[address] [address] Rick Arcos MD Appointment Request 06/19/[address] [address] Rick Arcos MD verbal order 06/19/[address] [address] Rick Arcos MD Nurse Triage 06/18/2024 Patient Outreach [facility] [address] [place] [address] Rick Arcos MD Pre-visit Planning (SDOH will need to be completed in office. ) 06/10/2024 Telephone [facility] [address] [place] [address] Rick Arcos MD Record Request 06/09/[address] [address] Rick Arcos MD Care Coordination; Medication Question 06/05/[address] [address] Rick Arcos MD Verbal Orders 06/03/2024 Orders Only [facility] [address] [place] [address] Rick Arcos MD 06/03/2024 Telephone [facility] [address] [place] [address] Rick Arcos MD Prior Authorization 05/29/2024 Refill [facility] [address] [place] [address] Barbara Velazquez RN Other chronic pain 05/28/2024 Telephone [facility] [address] [place] [address] Barbara Velazquez RN 05/27/2024 Refill [facility] [address] [place] [address] Rick Arcos MD Other chronic pain (Primary Dx) 05/27/2024 Refill [facility] [address] [place] [address] Rick Arcos MD 05/22/2024 Orders Only [facility] [address] [place] [address] Rick Arcos MD Muscle spasm (Primary Dx) [...] Processed 9 N/A 05/31/2024 1:24 AM EST [facility] (CLIA #:[id number]) Comment:An empty collection kit was received in the laboratory. The patient will be contacted to initiate a new sample collection. Stool specimen (specimen) Rectal contents / Unknown 05/30/2024 10:41 AM EST Rick Genao MD LAB MOLECULAR DIAG NOSTICS ORDERABLES Final Result [facility] (CLIA #:[id number]) [address] [place] [address], from Last 3 Months Insurance [facility] STANDARD MEDIC[place] [address] [place] [id number] [place] STAND ADULT Care Teams Jeep Mechanic Relationship Specialty Start Date End Date Rick Arcos MD [address] [place] [id number] PCP - General Internal Medicine 05/28/24 Rodrick Arguello 06/09/24
--- OUTSIDE RECORDS SUMMARY | 2024-08-11 14:18 | XMS_ITS | Clinical Summary ---
Author Organization [address] Address [address] [place] [address] Phone Care Team Providers Care Hand Shoe Cutter Name Role Phone Maty Darnell MD Primary Care Provider [phone] Encounters Date Type Department Care Team Description 06/01/2024 Lab Requisition [facility] Lab [address] [place] [phone] Herminio Lee MD Shortness of breath 05/26/2024 Lab Requisition [facility] Lab [address] [place] [phone] Herminio Lee MD Acute cough; Fever, unspecified 05/25/2024 Lab Requisition [facility] Lab [address] [place] [phone] Herminio Lee MD Essential (primary) hypertension; Fever, [...] 06/01/2024 10:03 AM EST Shortness of breath [id number], RSV, FLU A AND B QUALITATIVE RT-PCR, [...] K/mcL LAB HEMETOLOGY METHOD 06/01/2024 1:47 PM [facility] RBC 4.30(L) 4.50 - 5.50 M/mcL LAB HEMETOLOGY METHOD 06/01/2024 1:47 PM [facility] Hemoglobin 12.6(L) 13.5 - 17.5 g/dL LAB HEMETOLOGY METHOD 06/01/2024 1:47 PM [facility] Hematocrit 40.6(L) 42.0 - 54.0 % LAB HEMETOLOGY METHOD 06/01/2024 1:47 PM [facility] MCV 94.9 79.0 - 98.0 FL LAB HEMETOLOGY METHOD 06/01/2024 1:47 PM [facility] MCH 29.4 27.0 - 32.0 pcg LAB HEMETOLOGY METHOD 06/01/2024 1:47 PM [facility] MCHC 31.0(L) 32.0 - 37.0 g/dL LAB HEMETOLOGY METHOD 06/01/2024 1:47 PM [facility] RDW 15.2(H) 11.0 - 15.0 % LAB HEMETOLOGY METHOD 06/01/2024 1:47 PM [facility] Platelets 282 130 - 400 K/mcL LAB HEMETOLOGY METHOD 06/01/2024 1:47 PM [facility] MPV 10.6 7.0 - 11.0 FL LAB HEMETOLOGY METHOD 06/01/2024 1:47 PM EST [facility] NRBC 0.0 <1.0 % LAB HEMETOLOGY METHOD 06/01/2024 1:47 PM [facility] NRBC Absolute 0.00 <0.10 K/mcL LAB HEMETOLOGY METHOD 06/01/2024 1:47 PM [facility] Blood Venous blood specimen / Unknown Venipuncture / Unknown 06/01/2024 10:03 AM EST 06/01/2024 11:00 AM EST Herminio Lee MD LAB BLOOD ORDERABLES Final R esult [facility] [address] [place] [address], * Basic metabolic panel (06/01/2024 10:03 AM EST) Only the most recent of2 resultswithin the time period is included. Sodium 141 133 - 145 mmol/L LAB CHEMISTRY METHOD 06/01/2024 12:30 PM [facility] Potassium 4.4 3.5 - 5.5 mmol/L LAB CHEMISTRY METHOD 06/01/2024 12:30 PM [facility] Chloride 107 96 - 110 mmol/L LAB CHEMISTRY METHOD 06/01/2024 12:30 PM [facility] CO2 25 21 - 32 mmol/L LAB CHEMISTRY METHOD 06/01/2024 12:30 PM [facility] Anion Gap 9 3 - 11 LAB CHEMISTRY METHOD 06/01/2024 12:30 PM [facility] Glucose 79 70 - 100 mg/dL LAB CHEMISTRY METHOD 06/01/2024 12:30 PM [facility] BUN 18 5 - 25 mg/dL LAB CHEMISTRY METHOD 06/01/2024 12:30 PM [facility] Creatinine 1.16 0.70 - 1.30 mg/dL LAB CHEMISTRY METHOD 06/01/2024 12:30 PM [facility] eGFR 69 >=60 mL/min/1. 73m2 LAB CHEMISTRY METHOD 06/01/2024 12:30 PM [facility] Comment:Calculation based on the??Chronic Kidney Disease Epidemiology Collaboration (CKD-EPI) equation refit??without adjustment for race. BUN/Creatinine Ratio 15.5 LAB CHEMISTRY METHOD 06/01/2024 12:30 PM [facility] Calcium 8.7 8.5 - 10.5 mg/dL LAB CHEMISTRY METHOD 06/01/2024 12:30 PM [facility] Blood Venous blood specimen / Unknown Venipuncture / Unknown 06/01/2024 10:03 AM EST 06/01/2024 11:00 AM EST Herminio Lee MD LAB BLOOD ORDERABLES Final R esult [facility] [address] [place] [address], * (ABNORMAL) [id number], RSV, Influenza A and B qualitative RT-PCR (05/26/2024 7:00 AM EST) SARS COV-2 Not Detected Not Detected LAB MOLECULAR DIAGNOSTICS METHOD 05/26/2024 3:08 PM [facility] Comment: Disclaimer: The manner in which this information is used to guide patient care is the responsibility of the healthcare provider. Testing was performed using the [employer] SARS-CoV-2 test. This test has been authorized [...] for Healthcare Providers can be found at: https://www.fda.gov/media/581265/download Fact sheet for Patients can be found at: https://www.fda.gov/media/359330/download Influenza A PCR Detected(A ) Not Detected LAB MOLECULAR DIAGNOSTICS METHOD 05/26/2024 3:08 PM [facility] Comment:This patient is posi tive for influenza A. If the patient is admitted, please order the Respiratory Virus Panel PCR (Epic ID: [id number]) so our lab can subtype the influenza A, per CDC recommendations. Influenza B PCR Not Detected Not Detected LAB MOLECULAR DIAGNOSTICS METHOD 05/26/2024 3:08 PM [facility] RSV PCR Not Detected Not Detected LAB MOLECULAR DIAGNOSTICS METHOD 05/26/2024 3:08 PM [facility] Swab Nasopharyngeal structure / Unknown Non-blood Collection / Unknown 05/26/2024 7:00 AM EST 05/26/2024 11:23 AM EST Herminio Lee MD LAB MICROBIOLOGY - GENERAL O RDERABLES Final Result [facility] [address] [place] [address], from Last 3 Months Insurance MEDICARE MEDICAID - [place] Care Teams Hand Shoe Cutter Relationship Specialty Start Date End Date Maty Darnell MD [address] [place] [address] Dr [address] [place], [place] PCP - General Internal Medicine 10/24/19
--- OUTSIDE RECORDS SUMMARY | 2024-08-11 14:18 | XMS_ITS | Encounter Summary ---
Author Organization [facility] Address [address] [place] [phone] Care Team Providers Care Raw Stock Machine Loader Name Role Phone Maty Darnell MD Primary Care Provider [phone] Encounter Details Date Type Department Care Team (Late st Contact Info) Description 03/26/2024 Lab Requisition [facility] Lab [address] [facility] [place] [address] Herminio Lee MD [address] [place] [address] Cellulitis, unspecified; Unspecified atrial fibrillation (CMS/HCC V24, CMS/HCC V28); Other usp (current) drug therapy Social History Tobacco Use [...] Cellulitis, unspecified Unspecified atrial fibrillation (CMS/HCC) Other usp (current) drug therapy BASIC METABOLIC PANEL Routine 03/26/2024 8:15 AM EST Cellulitis, unspecified Unspecified atrial fibrillation (CMS/HCC) Other usp (current) drug therapy documented in this encounter Results * Basic metabolic panel (03/26/2024 8:15 AM EST) Sodium 140 133 - 145 mmol/L LAB CHEMISTRY METHOD 03/26/2024 1:05 PM [facility] Potassium 4.1 3.5 - 5.5 mmol/L LAB CHEMISTRY METHOD 03/26/2024 1:05 PM [facility] Chloride 103 96 - 110 mmol/L LAB CHEMISTRY METHOD 03/26/2024 1:05 PM [facility] CO2 30 21 - 32 mmol/L LAB CHEMISTRY METHOD 03/26/2024 1:05 PM [facility] Anion Gap 7 3 - 11 LAB CHEMISTRY METHOD 03/26/2024 1:05 PM [facility] Glucose 88 70 - 100 mg/dL LAB CHEMISTRY METHOD 03/26/2024 1:05 PM [facility] BUN 13 5 - 25 mg/dL LAB CHEMISTRY METHOD 03/26/2024 1:05 PM [facility] Creatinine 0.95 0.70 - 1.30 mg/dL LAB CHEMISTRY METHOD 03/26/2024 1:05 PM [facility] eGFR 89 >=60 mL/min/1. 73m2 LAB CHEMISTRY METHOD 03/26/2024 1:05 PM [facility] Comment:Calculation based on the??Chronic Kidney Disease Epidemiology Collaboration (CKD-EPI) equation refit??without adjustment for race. BUN/Creatinine Ratio 13.7 LAB CHEMISTRY METHOD 03/26/2024 1:05 PM [facility] Calcium 8.7 8.5 - 10.5 mg/dL LAB CHEMISTRY METHOD 03/26/2024 1:05 PM [facility] Blood Venous blood specimen / Unknown Venipuncture / Unknown 03/26/2024 8:15 AM EST 03/26/2024 11:31 AM EST us Herminio Lee MD LAB BLOOD ORDERABLES Final R esult [facility] [address] [place] [address], * (ABNORMAL) Complete blood count (03/26/2024 8:15 AM EST) [facility] Signature WBC 6.6 4.8 - 10.8 K/mcL LAB HEMETOLOGY METHOD 03/26/2024 12:43 PM EST [facility] RBC 4.20(L) 4.50 - 5.50 M/mcL LAB HEMETOLOGY METHOD 03/26/2024 12:43 PM [facility] Hemoglobin 12.8(L) 13.5 - 17.5 g/dL LAB HEMETOLOGY METHOD 03/26/2024 12:43 PM [facility] Hematocrit 42.1 42.0 - 54.0 % LAB HEMETOLOGY METHOD 03/26/2024 12:43 PM [facility] MCV 101.0(H) 79.0 - 98.0 FL LAB HEMETOLOGY METHOD 03/26/2024 12:43 PM [facility] MCH 30.7 27.0 - 32.0 pcg LAB HEMETOLOGY METHOD 03/26/2024 12:43 PM [facility] MCHC 30.4(L) 32.0 - 37.0 g/dL LAB HEMETOLOGY METHOD 03/26/2024 12:43 PM [facility] RDW 15.3(H) 11.0 - 15.0 % LAB HEMETOLOGY METHOD 03/26/2024 12:43 PM [facility] Platelets 246 130 - 400 K/mcL LAB HEMETOLOGY METHOD 03/26/2024 12:43 PM [facility] MPV 10.5 7.0 - 11.0 FL LAB HEMETOLOGY METHOD 03/26/2024 12:43 PM [facility] NRBC 0.0 <1.0 % LAB HEMETOLOGY METHOD 03/26/2024 12:43 PM EST [facility] NRBC Absolute 0.00 <0.10 K/mcL LAB HEMETOLOGY METHOD 03/26/2024 12:43 PM EST [facility] Blood Venous blood specimen / Unknown Venipuncture / Unknown 03/26/2024 8:15 AM EST 03/26/2024 11:31 AM EST us Herminio Lee MD LAB BLOOD ORDERABLES Final R esult [facility] [address] [place] [address], documented in this encounter Visit Diagnoses Diagnosis Cellulitis, unspecified Unspecified atrial fibrillation (CMS/HCC V24, CMS/HCC V28) Other usp (current) drug therapy documented in this encounter Additional Health Concerns Infection Onset Date Last Indicated Resolved Time Respiratory Rule-Out 05/26/2024 05/26/2024 025 3:08 PM EST Influenza 05/26/2024 05/26/2024 06/19/2024 7:04 PM EDT documented as of this encounter Care Teams Raw Stock Machine Loader Relationship Specialty Start Date End Date Maty Darnell MD [address] [place] [address] [address] [place] PCP - General Internal Medicine 10/24/19 documented as of this encounter
--- OUTSIDE RECORDS SUMMARY | 2024-08-11 14:18 | XMS_ITS | Clinical Summary ---
Author Organization [facility] Address [address] [place] [address] Care Team Providers Care Clip Riveter Name Role Phone Provider, Marlee MCKEE Primary [...] age to complete this topic Care Teams Clip Riveter Relationship Specialty Start Date End Date Marlee Lipscomb MD PCP - General 07/16/13
--- OUTSIDE RECORDS SUMMARY | 2024-08-11 14:18 | XMS_ITS | Encounter Summary ---
Author Organization [employer] Address [address] [facility] 7 [place] [address] Care Team Providers Care Mechanical Engineering Officer Name Role Phone Rick Arcos MD Primary Care Prov ider Reason for Visit * Reason Onset Date Comments Medication Question 07/14/2024 Encounter Details Date Type Department Care Team ([facility] st Contact Info) Description 07/14/2024 Telephone [facility] [address] [place] [address] Rick Arcos MD [address] [place] [address] Medication Question Social History Tobacco Use Types [...] is not getting medication. Contact pt at [phone] documented in this encounter Plan of Treatment Not on file documented as of this encounter Visit Diagnoses Not on filedocumented in this encounter Care Teams Mechanical Engineering Officer Relationship Specialty Start Date End Date Rick Arcos MD [address] [place] [address] PCP - General Internal Medicine [facility] documented as of this encounter
--- OUTSIDE RECORDS SUMMARY | 2024-08-11 14:18 | XMS_ITS | Clinical Summary ---
Author Organization [facility] Address [address] [place] [address] Care Team Providers Care Mechanical Maintenance Supervisor Name Role Phone Maty Darnell MD Primary Care Provider [phone] Allergies No known active allergies Medications Medication [...] Advance Directives For more information, please contact: [phone] Latest Code Status on File Code Status [...] in the following way:. . Care Teams Mechanical Maintenance Supervisor Relationship Specialty Start Date End Date Maty Darnell MD [address] [place] [address] [address] [place] [address] PCP - General Internal Medicine 10/24/19
--- OUTSIDE RECORDS SUMMARY | 2024-08-11 14:18 | XMS_ITS | Encounter Summary ---
Author Organization [facility] Address [address] [place] [address] Care Team Providers Care Air Brake Tester Name Role Phone Maty Darnell MD Primary Care Provider [phone] Encounter Details Date Type Department Care Team (Late st Contact Info) Description 04/02/2024 Lab Requisition [facility] - Main Lab [address] [place] [address] Herminio Lee MD [address] [place] [address] Unspecified atrial fibrillation (CMS/HCC V24, CMS/HCC V28) [...] mmol/L LAB CHEMISTRY METHOD 04/03/2024 10:04 AM [facility] Comment:Hemolysis present Chloride 107 96 - 110 mmol/L LAB CHEMISTRY METHOD 04/03/2024 10:04 AM [facility] CO2 28 21 - 32 mmol/L LAB CHEMISTRY METHOD 04/03/2024 10:04 AM [facility] Anion Gap 4 3 - 11 LAB CHEMISTRY METHOD 04/03/2024 10:04 AM [facility] Glucose 85 70 - 100 mg/dL LAB CHEMISTRY METHOD 04/03/2024 10:04 AM [facility] BUN 18 5 - 25 mg/dL LAB CHEMISTRY METHOD 04/03/2024 10:04 AM [facility] Creatinine 1.03 0.70 - 1.30 mg/dL LAB CHEMISTRY METHOD 04/03/2024 10:04 AM [facility] eGFR 81 >=60 mL/min/1. 73m2 LAB CHEMISTRY METHOD 04/03/2024 10:04 AM [facility] Comment:Calculation based on the??Chronic Kidney Disease Epidemiology Collaboration (CKD-EPI) equation refit??without adjustment for race. BUN/Creatinine Ratio 17.5 LAB CHEMISTRY METHOD 04/03/2024 10:04 AM [facility] Calcium 8.7 8.5 - 10.5 mg/dL LAB CHEMISTRY METHOD 04/03/2024 10:04 AM [facility] AST (SGOT) 27 10 - 42 unit/L LAB CHEMISTRY METHOD 04/03/2024 10:04 AM [facility] Comment:Hemolysis present ALT (SGPT) 22 10 - 60 unit/L LAB CHEMISTRY METHOD 04/03/2024 10:04 AM [facility] Alkaline Phosphatase 96 42 - 121 unit/L LAB CHEMISTRY METHOD 04/03/2024 10:04 AM [facility] Total Protein 7.0 6.0 - 8.0 g/dL LAB CHEMISTRY METHOD 04/03/2024 10:04 AM [facility] Albumin 3.1(L) 3.2 - 5.0 g/dL LAB CHEMISTRY METHOD 04/03/2024 10:04 AM [facility] Total Bilirubin 0.3 0.0 - 1.4 mg/dL LAB CHEMISTRY METHOD 04/03/2024 10:04 AM [facility] Blood Venous blood specimen / Unknown Venipuncture / Unknown 04/03/2024 7:26 AM EST 04/03/2024 9:41 AM EST us Herminio Lee MD LAB BLOOD ORDERABLES Final R esult [facility] [address] [place] [address], * (ABNORMAL) Complete blood count (04/03/2024 7:26 AM EST) WBC 7.0 4.8 - 10.8 K/mcL LAB HEMETOLOGY METHOD 04/03/2024 9:49 AM [facility] RBC 4.00(L) 4.50 - 5.50 M/mcL LAB HEMETOLOGY METHOD 04/03/2024 9:49 AM [facility] Hemoglobin 12.2(L) 13.5 - 17.5 g/dL LAB HEMETOLOGY METHOD 04/03/2024 9:49 AM [facility] Hematocrit 40.3(L) 42.0 - 54.0 % LAB HEMETOLOGY METHOD 04/03/2024 9:49 AM [facility] MCV 100.0(H) 79.0 - 98.0 FL LAB HEMETOLOGY METHOD 04/03/2024 9:49 AM [facility] MCH 30.3 27.0 - 32.0 pcg LAB HEMETOLOGY METHOD 04/03/2024 9:49 AM EST [facility] MCHC 30.3(L) 32.0 - 37.0 g/dL LAB HEMETOLOGY METHOD 04/03/2024 9:49 AM [facility] RDW 15.3(H) 11.0 - 15.0 % LAB HEMETOLOGY METHOD 04/03/2024 9:49 AM EST [facility] Platelets 326 130 - 400 K/mcL LAB HEMETOLOGY METHOD 04/03/2024 9:49 AM [facility] MPV 10.2 7.0 - 11.0 FL LAB HEMETOLOGY METHOD 04/03/2024 9:49 AM [facility] NRBC 0.0 <1.0 % LAB HEMETOLOGY METHOD 04/03/2024 9:49 AM [facility] NRBC Absolute 0.00 <0.10 K/mcL LAB HEMETOLOGY METHOD 04/03/2024 9:49 AM [facility] Blood Venous blood specimen / Unknown Venipuncture / Unknown 04/03/2024 7:26 AM EST 04/03/2024 9:42 AM EST Herminio Lee MD LAB BLOOD ORDERABLES Final R esult [facility] [address] [place] [address], documented in this encounter Visit Diagnoses Diagnosis Unspecified atrial fibrillation (CMS/HCC V24, CMS/HCC V28) documented in this encounter Additional Health Concerns Infection Onset Date Last Indicated Resolved Time Respiratory Rule-Out 05/26/2024 05/26/2024 025 3:08 PM EST Influenza 05/26/2024 05/26/2024 06/19/2024 7:04 PM EDT documented as of this encounter Care Teams Air Brake Tester Relationship Specialty Start Date End Date Maty Darnell MD [address] [place] [address] Dr [address] ANNEL Arguello PCP - General Internal Medicine 10/24/19 documented as of this encounter
--- OUTSIDE RECORDS SUMMARY | 2024-08-11 14:18 | XMS_ITS | Encounter Summary ---
Author Organization [employer] Address [address] [place] [address] [place] [address] Care Team Providers Care Jewelry Repairer Name Role Phone Rick Arcos MD Primary Care Prov ider Reason for Visit * Reason Onset Date Comments Med Refill 07/14/2024 Encounter Details Date Type Department Care Team ([facility] st Contact Info) Description 07/14/2024 Telephone [facility] [address] [place], [place] [phone] Rick Arcos MD [address] [place] [address] Med Refill Social History Tobacco Use Types [...] 20 MG tablet To be sent to: [facility] documented in this encounter Plan of Treatment Not on file documented as of this encounter Visit Diagnoses Not on filedocumented in this encounter Care Teams Jewelry Repairer Relationship Specialty Start Date End Date Rick Arcos MD [address] [place] [address] PCP - General Internal Medicine 05/28/24 Rodrick Arguello 06/09/24 documented as of this encounter
--- OUTSIDE RECORDS SUMMARY | 2024-08-11 14:18 | XMS_ITS | Encounter Summary ---
Author Organization [facility] Address [address] [place] [phone] Care Team Providers Care Computational Linguist Name Role Phone Maty Darnell MD Primary Care Provider [phone] Encounter Details Date Type Department Care Team (Late st Contact Info) Description 06/01/2024 Lab Requisition [facility] - Main Lab [address] [place] [address] Herminio Lee MD [address] [place] [address] Shortness of breath Social History Tobacco Use [...] LAB CHEMISTRY METHOD 06/01/2024 12:30 PM EST [facility] Potassium 4.4 [...] esult [facility] [address] [place] [address], * (ABNORMAL) Complete blood count (06/01/2024 10:03 [...] 06/01/2024 1:47 PM [facility] NRBC 0.0 <1.0 % LAB HEMETOLOGY METHOD 06/01/2024 1:47 PM [facility] NRBC Absolute 0.00 <0.10 K/mcL LAB HEMETOLOGY METHOD 06/01/2024 1:47 PM [facility] Blood Venous blood specimen / Unknown Venipuncture / Unknown 06/01/2024 10:03 AM EST 06/01/2024 11:00 AM EST us Herminio Lee MD LAB BLOOD ORDERABLES Final R esult [facility] ([facility] [address] [place] [address], documented in this encounter Visit Diagnoses Diagnosis Shortness of breath documented in this encounter Additional Health Concerns Infection Onset Date Last Indicated Resolved Time Influenza 05/26/2024 05/26/2024 06/19/2024 7:04 PM EDT documented as of this encounter Care Teams Computational Linguist Relationship Specialty Start Date End Date Maty Darnell MD [address] [place] [address] Dr [address] [place], [place] PCP - General Internal Medicine 10/24/19 documented as of this encounter
--- OUTSIDE RECORDS SUMMARY | 2024-08-11 14:18 | XMS_ITS | Encounter Summary ---
Author Organization [email or web address] Address [address] [facility] [address] [place] [address] Care Team Providers Care Manager Primary Name Role Phone Rick Arcos MD Primary Care Prov ider Encounter Details Date Type Department Care Team (Latest Contact Info) Description 11/14/2021 Abstract [facility] CONVERSIONS Dental, Provider, DDS Social History [...] on filedocumented in this encounter Care Teams Manager Primary Relationship Specialty Start Date End Date Rick Arcos MD [address] [place] [address] PCP - General Internal Medicine 05/28/24 [address] [facility] 06/09/24 documented as of this encounter
--- OUTSIDE RECORDS SUMMARY | 2024-08-11 14:18 | XMS_ITS | Encounter Summary ---
Author Organization [facility] Address [address] [place] [address] Care Team Providers Care Screen And Cyclone Repairer Name Role Phone Maty Darnell MD Primary Care Provider [phone] Encounter Details Date Type Department Care Team (Late st Contact Info) Description 05/26/2024 Lab Requisition [facility] - Main Lab [address] [place] [address] Herminio Lee MD [address] [place] [address] Acute cough; Fever, unspecified Social [...] Procedure Name Priority Date/Time Associated Diagnosis Comments [id number], RSV, FLU A AND B QUALITATIVE RT-PCR, LOCAL REFERENCE LAB Routine 05/26/2024 7:00 AM EST Acute cough Fever, unspecified documented in this encounter Results * (ABNORMAL) [id number], RSV, Influenza A and B qualitative RT-PCR (05/26/2024 7:00 AM EST) SARS COV-2 Not Detected Not Detected LAB MOLECULAR DIAGNOSTICS METHOD 05/26/2024 3:08 PM EST [facility]) [facility] Comment: Disclaimer: The manner in which this information is used to guide patient care is the responsibility of the healthcare provider. Testing was performed using the [employer] m SARS-CoV-2 test. This test has [...] for Healthcare Providers can be found at: https://www.fda.gov/media/076703/download Fact sheet for Patients can be found at: https://www.fda.gov/media/019938/download Influenza A PCR Detected(A ) Not Detected LAB MOLECULAR DIAGNOSTICS METHOD 05/26/2024 3:08 PM [facility] Comment:This patient is posi tive for influenza A. If the patient is admitted, please order the Respiratory Virus Panel PCR (Epic ID: [id number]) so our lab can subtype the influenza [...] MICROBIOLOGY - GENERAL O RDERABLES Final Result [facility] [address] [place] [address], documented in this encounter Visit Diagnoses Diagnosis Acute cough Fever, unspecified documented in this encounter Additional Health Concerns Infection Onset Date Last Indicated Resolved Time Respiratory Rule-Out 05/26/2024 05/26/2024 025 3:08 PM EST Influenza 05/26/2024 05/26/2024 06/19/2024 7:04 PM EDT documented as of this encounter Care Teams Screen And Cyclone Repairer Relationship Specialty Start Date End Date Maty Darnell MD [address] [place] [address] Dr [address] ANNEL Arguello PCP - General Internal Medicine 10/24/19 documented as of this encounter
--- OUTSIDE RECORDS SUMMARY | 2024-08-11 14:18 | XMS_ITS | Encounter Summary ---
Author Organization [employer] Address [address] [facility] [address] [place] [address] Care Team Providers Care Early Childhood Name Role Phone Rick Arcos MD Primary Care Prov ider Reason for Visit * Reason Onset Date Comments Nurse Triage 07/15/2024 Encounter Details Date Type Department Care Team (Late st Contact Info) Description 07/15/2024 Telephone [facility] [address] [place] [address] Rick Arcos MD [address] [place], [place] [phone] Nurse Triage Social History Tobacco Use Types [...] Miscellaneous Notes * Telephone Encounter - Lanie GIULIA Jackson - 07/15/2024 10:59 AM EDT Triage call returned to patient who was discharged from [facility] on Saturday07/13/2024. Though documentation show Oxycodone was filled for 26 tabs on 07/10/24 patient was not allowed to take home medication upon discharge. Per patient it is the [facility] policy. Last Oxycodone taken at 10am on Saturday.Reports symptom of diarrhea and nausea as no medication available. Patient seeking refill for home use pending F appt with PCP on 07/28/24. Disposition reviewed [...] caller accepted this outcome. Contact pt at [phone] Pt states that the symptoms that he is having are due to him not having his medication oxyCODONE (Oxy-IR) 5 MG immediate release capsule. documented in this encounter Plan of Treatment Not on file documented as of this encounter Visit Diagnoses Not on filedocumented in this encounter Care Teams Early Childhood Relationship Specialty Start Date End Date Rick Arcos MD [address] [place] [address] PCP - General Internal Medicine 05/28/24 Rodrick Arguello 06/09/24 documented as of this encounter
--- OUTSIDE RECORDS SUMMARY | 2024-08-11 14:18 | XMS_ITS | Encounter Summary ---
Author Organization [employer] Address [address] [facility] 7[address] [place] [address] Care Team Providers Care Waiver Analyst Name Role Phone Rick Arcos MD Primary Care Prov ider Reason for Visit * Reason Onset Date Comments Verbal Order 07/15/2024 Encounter Details Date Type Department Care Team (Late st Contact Info) Description 07/15/2024 Telephone [facility] [address] [place] [address] Rick Arcos MD [address] [place] [address] Verbal Order Social History Tobacco Use Types [...] on filedocumented in this encounter Care Teams Waiver Analyst Relationship Specialty Start Date End Date Rick Arcos MD [address] [place] [address] PCP - General Internal Medicine 05/28/24 [facility] 06/09/24 documented as of this encounter
--- OUTSIDE RECORDS SUMMARY | 2024-08-11 14:18 | XMS_ITS | Clinical Summary ---
Author Organization [facility] Address [address] [address] Care Team Providers Care Regional Branch Manager Name Role Phone Bambi Machuca MD Primary [...] patient's age to complete this topic Insurance Medicare Medicaid [place] Medicare Medicaid [place] Care Teams Regional Branch Manager Relationship Specialty Start Date End Date Bambi Machuca MD [address] [facility] [address] [place], [place] PCP - General Internal Medicine 04/24/22
--- OUTSIDE RECORDS SUMMARY | 2024-08-11 14:18 | XMS_ITS | Referral Summary ---
Author Organization [facility] Address [address] [place] [address] Care Team Providers Care Business Librarian Name Role Phone [facility] Primary Care Provider [phone] Allergies Active Allergy Reactions Criticality Noted Date [...] 2 days prior to admission. Was at [facility] prior to current presentation. Assessed by [...] 2 days prior to admission. Was at [facility] prior to current presentation. Assessed by [...] 2 days prior to admission. Was at [facility] prior to current presentation. Assessed by [...] 2 days prior to admission. Was at [facility] prior to current presentation. Assessed by [...] 2 days prior to admission. Was at [facility] prior to current presentation. Assessed by addiction psych this admission who noted patient not interested in MAT for AUD. He was monitored on CIWA which was discontinued on 02/24. - outpatient PCP and AA follow up Assessment & Plan (02/26/2024 6:00 PM EST): Patient reports drinking one quart of hard liquor daily, last drink 2 days prior to admission. Was at [facility] prior to current presentation. Assessed by addiction psych this admission who noted patient not interested in MAT for AUD. He was monitored on CIWA which was discontinued on 02/24. - outpatient PCP and AA follow up Assessment & Plan (02/25/2024 7:00 PM EST): Patient reports drinking one quart of hard liquor daily, last drink 2 days prior to admission. Was at [facility] prior to current presentation. Assessed by [...] chronic venous stasis. He was hospitalized at [facility] back in July 2023 and at [...] chronic venous stasis. He was hospitalized at [facility] back in July 2023 and at [...] chronic venous stasis. He was hospitalized at [facility] back in July 2023 and at [...] chronic venous stasis. He was hospitalized at [facility] back in July 2023 and at [...] the leg swelling. He was hospitalized at [facility] back in July 2023 and at [...] the leg swelling. He was hospitalized at [facility] back in July 2023 and at [...] the leg swelling. He was hospitalized at [facility] back in July 2023 and at [...] (03/15/2024 10:34 AM EST): Patient presented from [facility] for evaluation of right lower extremity swelling and redness. He was initiated on clindamycin at [facility] but without improvement so sent to [facility] for evaluation. L. Duplex negative [...] (03/14/2024 5:17 PM EST): Patient presented from [facility] for evaluation of right lower extremity swelling and redness. He was initiated on clindamycin at [facility] but without improvement so sent to [facility] for evaluation. L. Duplex negative [...] PM EST): Was initiated on clindamycin at [facility] but without improvement so sent to [facility] for evaluation. L. Duplex negative [...] PM EST): Was initiated on clindamycin at [facility] but without improvement so sent to [facility] for evaluation. L. Duplex negative [...] Plan (03/07/2024 1:35 PM EST): Presents from [facility] for evaluation of right lower extremity cellulitis. Was initiated on clindamycin at [facility] but without improvement so sent to [facility] for evaluation. He was sent [...] Plan (02/26/2024 6:00 PM EST): Presents from [facility] for evaluation of right lower extremity cellulitis. Was initiated on clindamycin at [facility] but without improvement so sent to [facility] for evaluation. He was sent [...] Plan (02/25/2024 7:00 PM EST): Presents from [facility] for evaluation of right lower extremity cellulitis. Was initiated on clindamycin at [facility] but without improvement so sent to [facility] for evaluation. He was sent [...] Date Smoking Tobacco: Never Smokeless Tobacco: Never [facility] Utilities Answer Date Recorded In the [...] resistant organisms MRSA 02/22/2024 02/22/2024 Insurance MEDICARE [facility] [employer] Advance Directives Documents on File Type Date Recorded Patient Inseam Trimmer Expl anation Health Care Proxy 03/11/2024 2:04 PM 03-11 * Full Code (Latest Code Status on File) Date Activated Date Inactivated Comments 02/22/2024 3:34 PM 03/16/2024 6:28 PM Care Teams Business Librarian Relationship Specialty Start Date End Date [address] [address] PCP - General 02/22/24
--- OUTSIDE RECORDS SUMMARY | 2024-08-11 14:18 | XMS_ITS | Encounter Summary ---
Author Organization [facility] Address [address] [place] [id number] Care Team Providers Care Maintenance Mechanic Elevators Name Role Phone Maty Darnell MD Primary Care Provider [phone] Encounter Details Date Type Department Care Team (Late st Contact Info) Description 05/25/2024 Lab Requisition [facility] - Main Lab [address] [place] [address] Herminio Lee MD [address] [place] [address] Essential (primary) hypertension; Fever, unspecified Social History [...] LAB CHEMISTRY METHOD 05/25/2024 11:48 AM EST [facility] Potassium 4.3 3.5 - 5.5 mmol/L LAB CHEMISTRY METHOD 05/25/2024 11:48 AM [facility] Chloride 101 96 - 110 mmol/L LAB CHEMISTRY METHOD 05/25/2024 11:48 AM [facility] CO2 24 21 - 32 mmol/L LAB CHEMISTRY METHOD 05/25/2024 11:48 AM [facility] Anion Gap 11 3 - 11 LAB CHEMISTRY METHOD 05/25/2024 11:48 AM [facility] Glucose 95 70 - 100 mg/dL LAB CHEMISTRY METHOD 05/25/2024 11:48 AM [facility] BUN 21 5 - 25 mg/dL LAB CHEMISTRY METHOD 05/25/2024 11:48 AM [facility] Creatinine 1.36(H) 0.70 - 1.30 mg/dL LAB CHEMISTRY METHOD 05/25/2024 11:48 AM [facility] eGFR 57(L) >=60 mL/min/1. 73m2 LAB CHEMISTRY METHOD 05/25/2024 11:48 AM [facility] Comment:Calculation based on the??Chronic Kidney Disease Epidemiology Collaboration (CKD-EPI) equation refit??without adjustment for race. BUN/Creatinine Ratio 15.4 LAB CHEMISTRY METHOD 05/25/2024 11:48 AM [facility] Calcium 8.1(L) 8.5 - 10.5 mg/dL LAB CHEMISTRY METHOD 05/25/2024 11:48 AM [facility] Blood Venous blood specimen / Unknown Venipuncture / Unknown 05/25/2024 7:40 AM EST 05/25/2024 10:32 AM EST us Herminio Lee MD LAB BLOOD ORDERABLES Final R esult [facility] [address] [place] [address], * (ABNORMAL) Complete blood count (05/25/2024 7:40 AM EST) [facility] WBC 7.4 4.8 - 10.8 K/mcL LAB HEMETOLOGY METHOD 05/25/2024 11:44 AM [facility] RBC 3.90(L) 4.50 - 5.50 M/mcL LAB HEMETOLOGY METHOD 05/25/2024 11:44 AM [facility] Hemoglobin 11.4(L) 13.5 - 17.5 g/dL LAB HEMETOLOGY METHOD 05/25/2024 11:44 AM [facility] Hematocrit 36.9(L) 42.0 - 54.0 % LAB HEMETOLOGY METHOD 05/25/2024 11:44 AM [facility] MCV 95.3 79.0 - 98.0 FL LAB HEMETOLOGY METHOD 05/25/2024 11:44 AM [facility] MCH 29.5 27.0 - 32.0 pcg LAB HEMETOLOGY METHOD 05/25/2024 11:44 AM [facility] MCHC 30.9(L) 32.0 - 37.0 g/dL LAB HEMETOLOGY METHOD 05/25/2024 11:44 AM [facility] RDW 15.0 11.0 - 15.0 % LAB HEMETOLOGY METHOD 05/25/2024 11:44 AM [facility] Platelets 164 130 - 400 K/mcL LAB HEMETOLOGY METHOD 05/25/2024 11:44 AM [facility] MPV 11.5(H) 7.0 - 11.0 FL LAB HEMETOLOGY METHOD 05/25/2024 11:44 AM [facility] NRBC 0.0 <1.0 % LAB HEMETOLOGY METHOD 05/25/2024 11:44 AM [facility] NRBC Absolute 0.00 <0.10 K/mcL LAB HEMETOLOGY METHOD 05/25/2024 11:44 AM EST [facility] Blood Venous blood specimen / Unknown Venipuncture / Unknown 05/25/2024 7:40 AM EST 05/25/2024 10:32 AM EST us Herminio Lee MD LAB BLOOD ORDERABLES Final R esult [facility] [address] [place] [address], documented in this encounter Visit Diagnoses Diagnosis Essential (primary) hypertension Unspecified essential hypertension Fever, unspecified documented in this encounter Additional Health Concerns Infection Onset Date Last Indicated Resolved Time Respiratory Rule-Out 05/26/2024 05/26/2024 025 3:08 PM EST Influenza 05/26/2024 05/26/2024 06/19/2024 7:04 PM EDT documented as of this encounter Care Teams Maintenance Mechanic Elevators Relationship Specialty Start Date End Date Maty Darnell MD [address] [place] PCP - General Internal Medicine 10/24/19 documented as of this encounter
--- OUTSIDE RECORDS SUMMARY | 2024-08-11 14:19 | XMS_ITS | Encounter Summary ---
Author Organization [employer] Address [address] [facility] [address] [place] [address] Care Team Providers Care Inflated Ball Molder Name Role Phone Rick Arcos MD Primary Care Prov ider Reason for Visit * Reason Onset Date Comments Hospital Follow-up 04/15/2024 Encounter Details Date Type Department Care Team ([facility] st Contact Info) Description 04/15/2024 Telephone [facility] MEDICINE [address] [place], [place] [phone] Barrington Morataya MD [address] [place], [place] [phone] Hospital Follow-up Social History Tobacco Use Types [...] from pt requesting a HDF appt. Hospital: [facility] Date of admission: 03/17/2024 Discharge date: 05/09/2024 Diagnosed: Discuss with pt. *Send message to [facility] Clinical Care Coordinators documented in this encounter Plan of Treatment Not on file documented as of this encounter Visit Diagnoses Not on filedocumented in this encounter Care Teams Inflated Ball Molder Relationship Specialty Start Date End Date Rick Arcos MD [address] [place] [id number] PCP - General Internal Medicine 05/28/24 [address] 06/09/24 documented as of this encounter
--- OUTSIDE RECORDS SUMMARY | 2024-08-11 14:19 | XMS_ITS | Encounter Summary ---
Author Organization [employer] Address [address] [facility] [address] [place] [address] Care Team Providers Care Professor Of Surgery Name Role Phone Rick Arcos MD Primary Care Prov ider Reason for Visit * Reason Onset Date Comments Appointment Request 06/24/2024 Encounter Details Date Type Department Care Team ([facility] st Contact Info) Description 06/24/2024 Telephone [facility] MEDICINE [address] [place] [address] Rick Arcos MD [address] [place], [place] [phone] Appointment Request Social History Tobacco Use Types [...] [place]. Next available appt for September, pt hasmario w. Medications. documented in this encounter Plan of Treatment Not on file documented as of this encounter Visit Diagnoses Not on filedocumented in this encounter Care Teams Professor Of Surgery Relationship Specialty Start Date End Date Rick Arcos MD [address] [place] [id number] PCP - General Internal Medicine 05/28/24 Rodrick Arguello 06/09/24 documented as of this encounter
--- OUTSIDE RECORDS SUMMARY | 2024-08-11 14:19 | XMS_ITS | Clinical Summary ---
Author Organization [facility] Address [address] [place] [address] Care Team Providers Care Tar And Ammonia Pump Operator Name Role Phone [facility] Primary Care Provider [phone] Allergies Active Allergy Reactions Criticality Noted Date [...] 2 days prior to admission. Was at [facility] prior to current presentation. Assessed by [...] 2 days prior to admission. Was at [facility] prior to current presentation. Assessed by [...] 2 days prior to admission. Was at [facility] prior to current presentation. Assessed by [...] 2 days prior to admission. Was at [facility] prior to current presentation. Assessed by [...] 2 days prior to admission. Was at [facility] prior to current presentation. Assessed by addiction psych this admission who noted patient not interested in MAT for AUD. He was monitored on CIWA which was discontinued on 02/24. - outpatient PCP and AA follow up Assessment & Plan (02/26/2024 6:00 PM EST): Patient reports drinking one quart of hard liquor daily, last drink 2 days prior to admission. Was at [facility] prior to current presentation. Assessed by addiction psych this admission who noted patient not interested in MAT for AUD. He was monitored on CIWA which was discontinued on 02/24. - outpatient PCP and AA follow up Assessment & Plan (02/25/2024 7:00 PM EST): Patient reports drinking one quart of hard liquor daily, last drink 2 days prior to admission. Was at [facility] prior to current presentation. Assessed by [...] chronic venous stasis. He was hospitalized at [facility] back in July 2023 and at [...] chronic venous stasis. He was hospitalized at [facility] back in July 2023 and at [...] chronic venous stasis. He was hospitalized at [facility] back in July 2023 and at [...] chronic venous stasis. He was hospitalized at [facility] back in July 2023 and at [...] the leg swelling. He was hospitalized at [facility] back in July 2023 and at [...] the leg swelling. He was hospitalized at [facility] back in July 2023 and at [...] the leg swelling. He was hospitalized at [facility] back in July 2023 and at [...] (03/15/2024 10:34 AM EST): Patient presented from [facility] for evaluation of right lower extremity swelling and redness. He was initiated on clindamycin at [facility] but without improvement so sent to [facility] for evaluation. L. Duplex negative for [...] will need to clear while inpatient to detention vs other housing Assessment & Plan (03/14/2024 5:17 PM EST): Patient presented from [facility] for evaluation of right lower extremity swelling and redness. He was initiated on clindamycin at [facility] but without improvement so sent to [facility] for evaluation. L. Duplex negative for [...] will need to clear while inpatient to detention vs other housing Assessment & Plan (03/09/2024 7:28 PM EST): Was initiated on clindamycin at [facility] but without improvement so sent to [facility] for evaluation. L. Duplex negative for [...] PM EST): Was initiated on clindamycin at [facility] but without improvement so sent to [facility] for evaluation. L. Duplex negative for [...] Plan (03/07/2024 1:35 PM EST): Presents from [facility] for evaluation of right lower extremity cellulitis. Was initiated on clindamycin at [facility] but without improvement so sent to [facility] for evaluation. He was sent for [...] Plan (02/26/2024 6:00 PM EST): Presents from [facility] for evaluation of right lower extremity cellulitis. Was initiated on clindamycin at [facility] but without improvement so sent to [facility] for evaluation. He was sent for [...] Plan (02/25/2024 7:00 PM EST): Presents from [facility] for evaluation of right lower extremity cellulitis. Was initiated on clindamycin at [facility] but without improvement so sent to [facility] for evaluation. He was sent for [...] Date Smoking Tobacco: Never Smokeless Tobacco: Never [facility] Utilities Answer Date Recorded In [...] resistant organisms MRSA 02/22/2024 02/22/2024 Insurance MEDICARE [facility] [employer] Advance Directives Documents on File Type Date Recorded Patient [employer] Expl anation Health Care Proxy 03/11/2024 2:04 PM 03-11 * Full Code (Latest Code Status on File) Date Activated Date Inactivated Comments 02/22/2024 3:34 PM 03/16/2024 6:28 PM Care Teams Tar And Ammonia Pump Operator Relationship Specialty Start Date End Date [address] [id number] PCP - General 02/22/24
--- OUTSIDE RECORDS SUMMARY | 2024-08-11 14:19 | XMS_ITS | Encounter Summary ---
Author Organization [employer] Address [address] [facility] 7[address] h [address] [place] [phone] Care Team Providers Care Dental Coordinator Name Role Phone Rick Arcos MD Primary Care Prov ider Encounter Details Date Type Department Care Team (Late st Contact Info) Description 06/03/2024 Orders Only [facility] MED [facility] PEDS [address] [place], [place] [phone] Rick Arcos MD [address] [place] [address] Social History Tobacco Use Types Packs/Day Years [...] on filedocumented in this encounter Care Teams Dental Coordinator Relationship Specialty Start Date End Date Rick Arcos MD [address] [place] [address] PCP - General Internal Medicine 05/28/24 Rodrick Arguello 06/09/24 documented as of this encounter
--- OUTSIDE RECORDS SUMMARY | 2024-08-11 14:19 | XMS_ITS | Encounter Summary ---
Author Organization [employer] Address [address] [facility] [address] [place] [address] Care Team Providers Care Apartment Hotel Manager Name Role Phone Rick Arcos MD Primary Care Prov ider Reason for Visit * Reason Onset Date Comments Medication Question 05/11/2024 Encounter Details Date Type Department Care Team ([facility] st Contact Info) Description 05/11/2024 Telephone [facility] [address] [place] [address] Rick Arcos MD [address] [place], [place] [phone] Medication Question Social History Tobacco Use Types [...] to prescribe medications and send them to [facility] pharmacy . Pt states he gave provider a list of about 20 medications documented in this encounter Plan of Treatment Not on file documented as of this encounter Visit Diagnoses Not on filedocumented in this encounter Care Teams Apartment Hotel Manager Relationship Specialty Start Date End Date Rick Arcos MD [address] [place] [id number] PCP - General Internal Medicine 05/28/24 Rodrick Arguello 06/09/24 documented as of this encounter
--- OUTSIDE RECORDS SUMMARY | 2024-08-11 14:19 | XMS_ITS | Clinical Summary ---
Author Organization [facility] Address [address] [place] [address] Care Team Providers Care Creative Arts Therapist Name Role Phone Unavailable Primary Care Provider [...]
--- OUTSIDE RECORDS SUMMARY | 2024-08-11 14:19 | XMS_ITS | Encounter Summary ---
Author Organization [employer] Address [address] [facility] [address] [place] [address] Care Team Providers Care Science Editor Name Role Phone Rick Arcos MD Primary Care Prov ider Reason for Visit * Reason Onset Date Comments Appointment 08/22/2022 Encounter Details Date Type Department Care Team ([facility] st Contact Info) Description 08/22/2022 Telephone [facility] [address] [place], [place] [phone] Martín Dumont DDS [address] [place], [place] [phone] Appointment Social History Tobacco Use Types Packs/Day [...] on filedocumented in this encounter Care Teams Science Editor Relationship Specialty Start Date End Date Rick Arcos MD [address] [place], [place] [phone] PCP - General Internal Medicine 05/28/24 Rodrick Arguello 06/09/24 documented as of this encounter
== END 2024-08-11 13:32 | disposition home or self-care (01) ==
LOC: HO.HVS 13:03
PROVIDERS: Visit Provider Physician Assistant Surgical
DX: I87.2 Venous insufficiency (chronic) (peripheral) (principal)
CPT/HCPCS: 99213

== ENCOUNTER → 2024-08-11 13:02 | Outpatient (BNVA) | payer MEDICARE, SELFPAY | PROVIDERS: Visit Provider Physician Assistant Surgical | DX: I87.2 Venous insufficiency (chronic) (peripheral) (principal) | CPT/HCPCS: 99212 ==

== ENCOUNTER 2024-09-04 14:50 | Outpatient (REF) | payer MEDICARE, SELFPAY ==
--- OUTSIDE RECORDS SUMMARY | 2024-09-04 14:52 | XMS_ITS | Clinical Summary ---
Author Organization [facility] Address [address] [place] [address] Care Team Providers Care Lime Trimmer Name Role Phone Maty Darnell MD Primary Care Provider Allergies No known active allergies Medications Medication [...] Advance Directives For more information, please contact: [phone] Latest Code Status on File Code Status [...] in the following way:. . Care Teams Lime Trimmer Relationship Specialty Start Date End Date Maty Darnell MD [address] [place] [address] [address] [place] [phone] PCP - General Internal Medicine 10/24/19
[2024-09-04 15:57] LABS: Adenovirus PCR Not Detected (Not Detect.); Bordetella parapertussis PCR Not Detected (Not Detect.); Bordetella pertussis PCR Not Detected (Not Detect.); Chlamydia pneumoniae PCR Not Detected (Not Detect.); Coronavirus 229E PCR Not Detected (Not Detect.); Coronavirus HKU1 PCR Not Detected (Not Detect.); Coronavirus NL63 PCR Not Detected (Not Detect.); Coronavirus OC43 PCR Not Detected (Not Detect.); Human metapneumovirus PCR Not Detected (Not Detect.); Influenza A PCR Not Detected (Not Detect.); Influenza B PCR Not Detected (Not Detect.); Mycoplasma pneumoniae PCR Not Detected (Not Detect.); Parainfluenza 1 PCR Not Detected (Not Detect.); Parainfluenza 2 PCR Not Detected (Not Detect.); Parainfluenza 3 PCR Not Detected (Not Detect.); Parainfluenza 4 PCR Not Detected (Not Detect.); RSV PCR Not Detected (Not Detect.); Rhino/Enterovirus PCR Not Detected (Not Detect.)
[2024-09-04 16:18] LABS: Influenza A H1 PCR Not Detected (Not Detect.); Influenza A H1-2009 PCR Not Detected (Not Detect.); Influenza A H3 PCR Not Detected (Not Detect.); SARS-CoV-2 PCR Not Detected (Not Detect.)
== END 2024-09-04 14:51 | disposition home or self-care (01) ==
LOC: HO.MMNH1L 14:50
PROVIDERS: Visit Provider Nurse Practitioner Family
DX: L03.115 Cellulitis of right lower limb (principal); M54.59 Other low back pain
CPT/HCPCS: 87633

== ENCOUNTER 2024-09-09 09:27 | Emergency (ER) | payer MEDICARE, MEDICAID, SELFPAY ==
[2024-09-09] VITALS (7 sets, daily range): BP systolic 91–200; BP diastolic 46–100; PULSE 86–112; RESP 16; TEMP 36.3–37; O2SAT 95–96; BMI 42.5
--- NOTE | ~2024-09-09 | XR_ITS ---
EXAMINATION: XR ANKLE, LEFT CLINICAL INFORMATION: Fall, pain COMPARISON: None available. TECHNIQUE: AP, lateral, and mortise views of the left ankle. FINDINGS: There is moderate lateral malleolar soft tissue swelling. The ankle mortise and subtalar joints are normal. There is no visible acute fracture or dislocation seen. There is a small calcaneal heel enthesophyte. XR/XR ankle LT min 3V IMPRESSION: Small calcaneal heel enthesophyte. No visible acute fracture or dislocation. Moderate lateral malleolar soft tissue swelling. Electronically signed by: Tadeo Cheney MD 09/09/2024 10:12 AM EDT
--- NOTE | 2024-09-09 09:59 | ED.FALL ---
HPI - Fall General Chief Complaint: Fall Stated Complaint: L ANKLE PAIN S/P FALL @ 6AM PER EMS Time Seen by Provider: 09/09/24 09:27 Source: EMS Mode of arrival: EMS Limitations: no limitations History of Present Illness ED Provider: HPI Narrative: 64-year-old male with multiple medical problems, he does have neuropathy, presenting with almost slipping did not fall, twisted his left ankle, states not able to bear weight, EMS reported that he was weight-bearing, he lives in the apartment and needs to walks 10 steps to go up to his place, does have VNA. Lives by himself, states was reasonable and rehab for neuropathy. No trauma to the head reported. No other injuries Related Data Home Medications ?Medication ?Instructions ?Recorded ?Confirmed acetaminophen 325 mg tablet 325 mg PO QID PRN Pain 06/19/24 09/09/24 albuterol sulfate 90 mcg/actuation 2 puff inhalation Q6H PRN 06/19/24 09/09/24 aerosol inhaler (Ventolin HFA) Shortness Of Breath Or Wheezing allopurinol 100 mg tablet 100 mg PO DAILY 06/19/24 09/09/24 apixaban 2.5 mg tablet (Eliquis) 2.5 mg PO BID 06/19/24 09/09/24 atorvastatin 40 mg tablet 40 mg PO BEDTIME 06/19/24 09/09/24 digoxin 250 mcg (0.25 mg) tablet 250 mcg PO DAILY 06/19/24 09/09/24 diltiazem HCl 120 mg 120 mg PO DAILY 06/19/24 09/09/24 capsule,extended release 24 hr tamsulosin 0.4 mg capsule 0.4 mg PO DAILY 06/19/24 09/09/24 vilazodone 20 mg tablet 20 mg PO DAILY 06/19/24 09/09/24 duloxetine 30 mg capsule,delayed 30 mg PO BID 09/09/24 09/09/24 release furosemide 80 mg tablet 80 mg PO BID 09/09/24 09/09/24 gabapentin 800 mg tablet 800 mg PO TID 09/09/24 09/09/24 omeprazole 20 mg capsule,delayed 20 mg PO DAILY 09/09/24 09/09/24 release penicillin V potassium 250 mg 250 mg PO BID 09/09/24 09/09/24 tablet potassium chloride 20 mEq 20 meq PO DAILY 09/09/24 09/09/24 tablet,extended release spironolactone 50 mg tablet 50 mg PO DAILY 09/09/24 09/09/24 Previous Rx's ?Medication ?Instructions ?Recorded oxycodone 5 mg tablet 5 mg PO QID PRN Pain #20 tabs 07/23/24 zolpidem 10 mg tablet 10 mg PO BEDTIME PRN Sleep #10 tabs 07/23/24 oxycodone 5 mg tablet 5 mg PO Q8H PRN severe pain (scale 09/10/24 score 7-10) #9 tabs Allergies Allergy/AdvReac Type Severity Reaction Status Date / Time No Known Allergies Allergy Verified 09/09/24 09:41 Review of Systems Constitutional: Constitutional: Reports as per [facility] Past Medical History Medical History Morbid obesity Atrial fibrillation with RVR Chest pain Atrial fibrillation with RVR Sciatica ARIAN (acute kidney injury) Atrial fibrillation with RVR Alcohol withdrawal delirium Oral thrush Metabolic acidosis with increased anion gap and accumulation of organic acids Alcohol withdrawal Heart failure with left ventricular ejection fraction greater than or equal to 50 percent Incarcerated incisional hernia Atrial fibrillation with RVR Alcohol dependence Alcohol intoxication Thoracic aortic aneurysm Chronic atrial fibrillation Toenail deformity Dyslipidemia Anemia History of alcohol abuse Morbid obesity Insomnia Depression Pulmonary embolism Obesity Surgical History History of incisional hernia repair S/P cholecystectomy History of inguinal hernia repair Hx of gastric bypass Family History Family History Mother No problems noted. Father No problems noted. Family/Other Substance use disorder Social History Social History Household Members: None Household Members Other:: lives with mother Housing: Apartment Do you presently have visiting nurse or other home services: No Unable to assess alcohol history related to: Unable to respond Alcohol intake: former Year quit: 2019 Comment: pt refusing alarms Patient Tobacco Use Status: Never used Tobacco e-Cigarette/Vaping Use: Never Used Second Hand Smoke Exposure: No Substance Use Type: Other Advance Directives Date on File: 03/13/21 service: No Current occupational status: retired Physical Exam Vital Signs: Vital Signs: Last Vital Signs Temp 97.1 F 09/10/24 13:49 Pulse 83 09/10/24 13:49 Resp 16 09/10/24 13:49 BP 107/68 09/10/24 13:49 Pulse Ox 96 09/10/24 13:49 O2 Del Method Room Air 09/10/24 13:49 BMI result Body Mass Index 42.5 Const: Other: Chronically ill-appearing, overweight No facial trauma, no head trauma Cardiopulmonary examination unremarkable, no stridor no wheezing, radial pulses +2 bilaterally Abdomen obese nontender nondistended Peripheral vascular changes bilateral lower extremities, slight swelling over the left ankle both medial and lateral along deltoid and lateral ligaments as well, distal pulses intact, I do not see any open wounds. Course Course Course Narrative: Time: 15:09 Date: 09/09/24 Provider: Brianne Werner PA-C Patient in physician observation for case management needs secondary to fx of left ankle. Complaint of pain, pain protocol to be placed. VS stable. Patient is pending placement at facility/pending PT/CM eval. Will continue to monitor. Reevaluation(s) Reevaluation #1: Physician observation discontinued at this time. Patient has been accepted to [facility] for short-term rehab. Paper prescription provided for oxycodone. X-ray reviewed, no fracture noted. Encouraged Tylenol and Motrin and conservative management of ankle sprain. Vital signs are stable patient does not require admission to the hospital at this time and can be safely discharged to acute rehab. Time: 11:21 Medications Administered Discontinued Medications Generic Name Dose Route Start Last Admin Trade Name Angel PRN Reason Stop Dose Admin Acetaminophen 650 mg 09/09/24 15:09 09/10/24 07:56 Acetaminophen 325 Mg Tablet PO 650 mg Q6H PRN Administration mild to moderate pain 1-6 Allopurinol 100 mg 09/09/24 20:30 09/10/24 07:54 Allopurinol 100 Mg Tablet PO 100 mg DAILY MARILEE Administration Apixaban 2.5 mg 09/09/24 21:00 09/10/24 07:53 Apixaban 2.5 Mg Tablet PO 2.5 mg BID MARILEE Administration Atorvastatin Calcium 40 mg 09/09/24 21:00 09/09/24 20:33 Atorvastatin Calcium 40 Mg Tablet PO 40 mg BEDTIME MARILEE Administration Digoxin 0.25 mg 09/09/24 20:30 09/10/24 07:53 Digoxin 0.25 Mg Tablet PO 0.25 mg DAILY MARILEE Administration Protocol Diltiazem HCl 120 mg 09/09/24 20:30 09/10/24 07:54 Diltiazem Hcl Cd 120 Mg Cap.Er.Deg PO 120 mg DAILY MARILEE Administration Protocol Duloxetine HCl 30 mg 09/09/24 21:00 09/10/24 07:54 Duloxetine Hcl 30 Mg Capsule. PO 30 mg BID MARILEE Administration Furosemide 80 mg 09/10/24 08:00 09/10/24 07:53 Furosemide 40 Mg Tablet PO 80 mg BIDWM MARILEE Administration Protocol Gabapentin 800 mg 09/09/24 21:00 09/10/24 07:55 Gabapentin 400 Mg Capsule PO 800 mg TID MARILEE Administration Hydrocortisone 1 appl 09/10/24 09:25 09/10/24 10:17 Hydrocortisone 1 % Ointment 28.35 Gm Tube TOPICAL 1 appl BID MARILEE Administration Protocol Omeprazole 20 mg 09/09/24 20:30 09/10/24 06:01 Omeprazole 20 Mg Capsule. PO 20 mg DAILY@0630 MARILEE Administration Oxycodone HCl 10 mg 09/09/24 09:56 09/09/24 10:04 Oxycodone Hcl Immed Release 5 Mg Tablet PO 09/09/24 09:57 10 mg ONCE ONE Administration Oxycodone HCl 10 mg 09/09/24 15:11 09/10/24 10:17 Oxycodone Hcl Immed Release 5 Mg Tablet PO 10 mg Q6H PRN Administration severe pain Penicillin V Potassium 250 mg 09/09/24 21:00 09/10/24 07:54 Penicillin V Potassium 250 Mg Tablet PO 250 mg BID MARILEE Administration Potassium Chloride 20 meq 09/09/24 20:30 09/10/24 07:55 Potassium Chloride Er 20 Meq Tab.Er.Prt PO 20 meq DAILY MARILEE Administration Spironolactone 50 mg 09/09/24 20:30 09/10/24 07:53 Spironolactone 25 Mg Tablet PO 50 mg DAILY MARILEE Administration Protocol Tamsulosin HCl 0.4 mg 09/09/24 20:30 09/10/24 07:54 Tamsulosin Hcl 0.4 Mg Capsule PO 0.4 mg DAILY MARILEE Administration Vilazodone HCl 20 mg 09/09/24 20:30 09/10/24 07:52 Vilazodone Hcl 20 Mg Tablet PO 20 mg DAILY MARILEE Administration Medical Decision Making Medical Decision Making [facility] Narrative: Presenting with twisting injury sprain versus fracture, regardless I feel that he may need to be evaluated for rehab placement, no other trauma noted, did not feel further imaging such as head or neck CTs indicated. 11:32 no fracture on the x-ray, ambulatory trial in the boot. Patient wishes to be full code if he has to be staying for case management PT evaluation 15:42 we will be on monitor overnight. Lab Data Labs: Lab Results 09/09/24 Range/Units 12:30 Influenza Type A (PCR) NEGATIVE (Negative) Influenza Type B (PCR) NEGATIVE (Negative) RSV RNA Qual (PCR) NEGATIVE (Negative) SARS-CoV-2 RNA (RT-PCR) NEGATIVE (Negative) Radiology Impression Discussion of test interpretation with radiology: I have reviewed the radiologist's reading. Radiologist Impression: No fracture Discharge Plan Discharge Clinical Impression: Adult failure to thrive, Injury of ankle, left Patient Disposition: Xfer Inpatient Rehab Fac Transfer Details: [facility] Instructions: Ankle Sprain (DC) Additional Instructions: Your x-ray did not show any broken bones. Rest your ankle and elevate your foot when possible. Recommend LOW wrap for support and compression. Use ice several times per day for the next 48 hours. You may bear weight as tolerated. If pain is too severe, use crutches until better. Take Motrin and/or Tylenol as needed for pain. Take the prescribed oxycodone as needed for severe pain only. it is preferred you stick with only tylenol and motrin. Follow up with your doctor as needed. XR/XR ankle LT min 3V IMPRESSION: Small calcaneal heel enthesophyte. No visible acute fracture or dislocation. Moderate lateral malleolar soft tissue swelling. Prescriptions: New oxycodone 5 mg tablet 5 mg PO Q8H PRN (Reason: severe pain (scale score 7-10)) Qty: 9 0RF Rx Instructions: Partial Fill upon patient request. No Action diltiazem HCl 120 mg Capsule,Extended Release 24hr 120 mg PO DAILY atorvastatin 40 mg Tablet 40 mg PO BEDTIME acetaminophen 325 mg Tablet 325 mg PO QID PRN (Reason: Pain) allopurinol 100 mg Tablet 100 mg PO DAILY digoxin 250 mcg (0.25 mg) Tablet 250 mcg PO DAILY tamsulosin 0.4 mg Capsule 0.4 mg PO DAILY albuterol sulfate [Ventolin HFA] 90 mcg/actuation Hfa Aerosol Inhaler 2 puff INHALATION Q6H PRN (Reason: Shortness Of Breath Or Wheezing) vilazodone 20 mg Tablet 20 mg PO DAILY Rx Instructions: must administer with a meal/food Eliquis 2.5 mg Tablet 2.5 mg PO BID zolpidem 10 mg Tablet 10 mg PO BEDTIME PRN (Reason: Sleep) Qty: 10 0RF oxycodone 5 mg Tablet 5 mg PO QID PRN (Reason: Pain) Qty: 20 0RF penicillin V potassium 250 mg tablet 250 mg PO BID Rx Instructions: for 30 days gabapentin 800 mg tablet 800 mg PO TID furosemide 80 mg tablet 80 mg PO BID duloxetine 30 mg capsule,delayed release(DR/EC) 30 mg PO BID omeprazole 20 mg Capsule,Delayed Release(Dr/Ec) 20 mg PO DAILY spironolactone 50 mg Tablet 50 mg PO DAILY potassium chloride 20 mEq Tablet Extended Release 20 meq PO DAILY Referrals: [facility] [Outside] Referral Note: [address] [place] [address] Shelbie Gaines PA-C [Primary Care Provider] - 09/24/24 Referral Note: CALL FOR APPT TIME Leanne Garcia MD [Physician] - 09/18/24 Referral Note: CALL FOR APPT TIME Juvencio Steiner FNP-C [Nurse Practitioner] - 03/23/25 Referral Note: CALL FOR APPT TIME Interventions: ED Discharge Assessment Last Done: 09/10/24 13:49 Discharge Date/Time: 09/10/24 13:51 Print Language: Luxembourgish
[2024-09-09] MEDS: oxyCODONE HCl Immed Release 5 MG TABLET 10 MG PO ×3 (10:04→22:00)
--- OUTSIDE RECORDS SUMMARY | 2024-09-09 10:41 | XMS_ITS | Clinical Summary ---
Author Organization [facility] Address [address] [place] [address] Care Team Providers Care Customer Operations Associate Name Role Phone Maty Darnell MD Primary Care Provider [phone] Allergies No known active allergies Medications Medication [...] Advance Directives For more information, please contact: [phone] Latest Code Status on File Code Status [...] in the following way:. . Care Teams Customer Operations Associate Relationship Specialty Start Date End Date Maty Darnell MD [address] [place] [address] [address] [place] [id number] PCP - General Internal Medicine 10/24/19
[2024-09-09 13:27] LABS: Influenza A PCR NEGATIVE (Negative); Influenza B PCR NEGATIVE (Negative); Resp Syncy Virus RNA Qual PCR NEGATIVE (Negative); SARS COV2 PCR INHOUSE NEGATIVE (Negative)
--- NOTE | 2024-09-09 13:48 | PC.NURSE ---
verbal nurse to nurse given to NIMESH Zavala
--- NOTE | 2024-09-09 14:59 | PC.NURSE ---
approx 1 hr spent working on updating med list. med rec completed w pt - pt is a poor historian w limited ability to recall meds. pt reports that he has a list of meds at home but is unable to get anyone to bring in meds. medications and recent fills reviewed with pt. per pt, no longer taking: omeprazole, potassium, spironolactone, triamcinolone oint. pt reports that he is taking oxycodone q6hr but it is unclear last year who is prescribing, has fills from multiple Urgent Care and ED providers in the past. also reports increase in gabapentin to 800mg TID w no prescriber.
--- NOTE | 2024-09-09 15:24 | MHC.EDTECH ---
pt ambulated to bedside commode independently for urine output
--- NOTE | 2024-09-09 15:39 | MHC.CM.ED ---
Addendum entered by Chantal Mckinney 09/09/24 15:51: Has a new patient appointment scheduled with Shelbie Jefferson on 09/24 at 4pm. Original Note: Received case management consult Dr Capone. Patient came to the ER after a fall. Work up indicated left ankle sprain. Physical therapy eval completed. Short term rehab is recommended. Patient was d/c'd from [facility] on 09/07 with Kary VAZQUEZ. Return referral made to [facility]. Waiting to hear if [facility] is able to offer a bed. Continue to monitor for d/c needs.
--- NOTE | 2024-09-09 15:51 | PHA.MEDREC ---
Pharmacy Consult ? Medication Reconciliation Pharmacy has reviewed the medication reconciliation completed by Sally. RN reporting patient is a poor historian. Per PDMP, patient has been regularly getting oxycodone 5 mg Q6H. I contacted [facility] pharmacy who reports patient gets medications in blister packs. Pharmacist reported that all medications were filled in August including - omeprazole, KCl and Spironolactone in which patient reported were stopped to RN. She reported that torsemide was discontinued on 07/27 and venlafaxine was discontinue on 08/21. Medication list has been updated past on recent findings. Kerry Farris, PharmD
--- NOTE | 2024-09-09 17:41 | PC.NURSE ---
Pt transferred from ED to Overflow bed 1. Pt a/ox3, speaking in full sentences, respirations even and unlabored, no increased wob/sob noted, denies cp/sob/n/v/d. Walking boot noted to left ankle- cms intact. Pt able to stand and pivot to commode with assistance. Able to reposition self in bed/make needs known. Pt requesting 10mg Oxycodone for pain- PA [facility] made aware, prn pain medications ordered. Pt upright in bed eating dinner tray independently. Med rec done by NIMESH Zavala d/t multiple medication fills at multiple pharmacies- PA aware. Call ortiz within reach, all needs met at this time.
[2024-09-09] MEDS: Spironolactone 25 MG TABLET 50 MG PO (20:33)
[2024-09-09] MEDS: Atorvastatin Calcium 40 MG TABLET PO (20:33)
[2024-09-09] MEDS: Potassium Chloride ER 20 MEQ TAB.ER.PRT PO (20:33)
[2024-09-09] MEDS: Apixaban 2.5 MG TABLET PO (20:33)
[2024-09-09] MEDS: Tamsulosin HCL 0.4 MG CAPSULE PO (20:33)
[2024-09-09] MEDS: Omeprazole 20 MG CAPSULE.DR PO (20:33)
[2024-09-09] MEDS: allopurinoL 100 MG TABLET PO (20:33)
[2024-09-09] MEDS: DULoxetine HCl 30 MG CAPSULE.DR PO (20:34)
[2024-09-09] MEDS: Digoxin 0.25 MG TABLET PO (21:16)
[2024-09-09] MEDS: Vilazodone HCL 20 MG TABLET PO (21:17)
[2024-09-09] MEDS: Penicillin V Potassium 250 MG TABLET PO (21:17)
[2024-09-09] MEDS: dilTIAZem HCL CD 120 MG CAP.ER.DEG PO (21:17)
[2024-09-09] MEDS: Gabapentin 400 MG CAPSULE 800 MG PO (21:17)
--- NOTE | 2024-09-09 23:42 | MHC.EDTECH ---
This pct assumed care of Patient at 2300 ,Patient was supervised unto bedside Commode ,void and back to bed ,fresh cecy tay given .All safety measure in Place .
[2024-09-10] MEDS: oxyCODONE HCl Immed Release 5 MG TABLET 10 MG PO ×2 (03:57→10:17)
[2024-09-10 04:48] VITALS: BP 127/84; PULSE 72; RESP 16; TEMP 36.8; O2SAT 97
[2024-09-10] MEDS: Omeprazole 20 MG CAPSULE.DR PO (06:01)
[2024-09-10] MEDS: Vilazodone HCL 20 MG TABLET PO (07:52)
[2024-09-10 07:53] VITALS: BP 127/84
[2024-09-10] MEDS: Spironolactone 25 MG TABLET 50 MG PO (07:53)
[2024-09-10] MEDS: Apixaban 2.5 MG TABLET PO (07:53)
[2024-09-10] MEDS: Digoxin 0.25 MG TABLET PO (07:53)
[2024-09-10] MEDS: Furosemide 40 MG TABLET 80 MG PO (07:53)
[2024-09-10 07:54] VITALS: BP 127/84; PULSE 72
[2024-09-10] MEDS: Tamsulosin HCL 0.4 MG CAPSULE PO (07:54)
[2024-09-10] MEDS: allopurinoL 100 MG TABLET PO (07:54)
[2024-09-10] MEDS: DULoxetine HCl 30 MG CAPSULE.DR PO (07:54)
[2024-09-10] MEDS: Penicillin V Potassium 250 MG TABLET PO (07:54)
[2024-09-10] MEDS: dilTIAZem HCL CD 120 MG CAP.ER.DEG PO (07:54)
[2024-09-10] MEDS: Potassium Chloride ER 20 MEQ TAB.ER.PRT PO (07:55)
[2024-09-10] MEDS: Gabapentin 400 MG CAPSULE 800 MG PO (07:55)
[2024-09-10] MEDS: Acetaminophen 325 MG TABLET 650 MG PO (07:56)
--- NOTE | 2024-09-10 09:57 | MHC.CM.ED ---
Patient remains in ER overflow. No bed offers at this time. Still waiting to hear from [facility] about bed availability. Continue to monitor for d/c needs.
[2024-09-10] MEDS: Hydrocortisone 1 % Ointment 28.35 GM TUBE 1 APPL TOPICAL (10:17)
--- NOTE | 2024-09-10 10:18 | PC.NURSE ---
pt c/o 11/15 lle pain, pt medicated with oxycodone per order, additionally pt states the tylenol did help his headache with the pain down to 05/18.
--- NOTE | 2024-09-10 11:35 | PC.NURSE ---
[facility] report this nurse called [facility] to give report as required- per case mangement [facility]. Upon calling- Haley who answered stated she had nobody coming to their facility by that name. She made a few additional calls and found that the patient was going to the [facility]. This nurse then called the [place] building was transferred to Megan who took a full report, after giving report Megan stated that she did not have that name in her system and she needed to put me on hold to call somebody to figure out where the patient was going to go. Upon coming back to the phone the nurse stated that she in fact was getting the patient to her unit. This nurse did notify our leather case finisher Chantal of this situation.
--- NOTE | 2024-09-10 12:08 | MHC.CM.ED ---
[facility] is the only facility that is able to offer a bed. Met with patient. Patient accepts bed. Harper CASTRO booked for 130pm. Med [facility] with chart. Patient, Dang BEAVERS and Saskia WALDEN. Continue to monitor for d/c needs.
[2024-09-10 13:23] VITALS: BP 107/68; PULSE 83; RESP 16; TEMP 36.2; O2SAT 96
[2024-09-10 13:49] VITALS: BP 107/68; PULSE 83; RESP 16; TEMP 36.2; O2SAT 96
== END 2024-09-10 13:51 ==
PROVIDERS: Emergency Provider Emergency Medicine
DX: S99.912A Unspecified injury of left ankle, initial encounter (principal); X58.XXXA Exposure to other specified factors, initial encounter; Y93.9 Activity, unspecified; Y92.9 Unspecified place or not applicable; Y99.9 Unspecified external cause status; R62.7 Adult failure to thrive; M25.572 Pain in left ankle and joints of left foot; Z03.818 Encounter for observation for suspected exposure to other biological agents ruled out
CPT/HCPCS: 0241U; 73610; 97162; 99285

== ENCOUNTER → 2024-09-09 09:50 | Outpatient (BNV) | payer MEDICARE, MEDICAID, SELFPAY | PROVIDERS: Emergency Provider Emergency Medicine; Visit Provider Radiology Diagnostic Radiology | DX: M70.872 Other soft tissue disorders related to use, overuse and pressure, left ankle and foot (principal) | CPT/HCPCS: 73610 ==

== ENCOUNTER 2024-09-30 11:18 | Outpatient (AMB) | payer MEDICARE, MEDICAID, SELFPAY ==
--- NOTE | 2024-09-30 11:28 | MHC.PC.OV ---
Vital Signs 09/30/24 11:30 Height 5 ft 8.9 in Weight 314 lb 9.594 oz BMI 46.6 BP 132/88 Blood Pressure Location Lt brachial Position Sitting Pulse 101 H Pulse Source Pulse Oximeter Temp 97 F Temp Source Temporal Artery Scan Pulse Oximetry (%) 99 Oxygen Delivery Method Room Air Intake Visit Reasons: establish [facility] 09/30 Intake Note: Patient is a new patient here to establish care for Afib, Hernia, GI blockage, Neuropathy, Siulatis of both legs, Chronic pain in right leg . Transferring care from unknown. Medical records have not been requested and have received. Pastoral Ministries Professor Required: No Advanced Manufacturing Technician: Not Required per policy Accompanied by: Self / Same As Patient Allergies No Known Allergies Allergy (Verified 09/30/24 12:05) Medication List - Last Reconciled 09/30/24 by Shlebie Gaines PA-C acetaminophen 325 mg PO QID PRN albuterol sulfate 90 mcg/actuation (Ventolin HFA) 2 puffs inhalation Q6H PRN allopurinol 100 mg PO DAILY apixaban (Eliquis) 2.5 mg PO BID atorvastatin 40 mg PO BEDTIME digoxin 250 mcg PO DAILY diltiazem HCl CD 120 mg PO DAILY duloxetine 30 mg PO BID furosemide 40 mg PO BID gabapentin 400 mg PO TID omeprazole 20 mg PO DAILY oxycodone 10 mg PO Q6H PRN penicillin V potassium 250 mg PO BID potassium chloride ER 20 mEq PO DAILY spironolactone 25 mg PO DAILY tamsulosin 0.4 mg PO DAILY vilazodone 20 mg PO DAILY zolpidem 10 mg PO BEDTIME PRN Tobacco use date assessed: 09/30/24 Fall risk assessment: 1 Fall in past year Last assessed Fall Risk: 09/30/24 Dental Screening Dental Screen Date: 09/30/24 Did you have a dental visit in the last 12 months?: No Did you have a dental problem in the last 6 months where you did not have access to dental care?: No Was dental information given to patient?: Patient has dentist (Dentures) HPI establish [facility]/ [facility] 09/30 HPI Details 64-year-old male with past medical history of depression, anemia, neuropathy, thoracic aortic aneurysm, encephalopathy, chronic atrial fibrillation coming to the office for the 1st time. He has an extensive history of hospitalization/SNF stays for ongoing bilateral lower extremity weeping/wounds. In review of the notes, patient was recently seen in [facility] 09/2024 for ankle pain x-ray was negative, weightbear as tolerated and patient was discharged home. Patient was seen by vascular surgery 08/2024 no new wounds noted on exam did have discoloration with 2+ pitting edema. He was advised to decrease his oxycodone and follow up in 1 month with the vascular surgeon. He was seen by infectious disease 08/2024 given penicillin and advised to follow up in 4 months. Presenting for management of multiple chronic conditions and follow-up care after recent hospitalization. The patient reports peripheral neuropathy in the right foot, causing significant pain and discomfort. The patient has a history of atrial fibrillation, a chronic condition prevalent in his family. The patient has chronic cellulitis and erysipelas, currently managed with penicillin, with recent exacerbations noted. The patient is on duloxetine and vilazodone for depression and chronic pain management. The patient experiences chronic pain primarily in the legs, managed with oxycodone, and is seeking alternative pain management options. The patient has venous stasis dermatitis, characterized by discoloration and thickening of the skin due to chronic leg swelling. [facility] Medical History (Updated 10/01/24 @ 08:15 by Shelbie Gaines PA-C) Morbid obesity Atrial fibrillation with RVR Chest pain Atrial fibrillation with RVR Sciatica ARIAN (acute kidney injury) Atrial fibrillation with RVR Alcohol withdrawal delirium Oral thrush Metabolic acidosis with increased anion gap and accumulation of organic acids Alcohol withdrawal Heart failure with left ventricular ejection fraction greater than or equal to 50 percent Incarcerated incisional hernia Atrial fibrillation with RVR Alcohol dependence Alcohol intoxication Thoracic aortic aneurysm Chronic atrial fibrillation Toenail deformity Dyslipidemia Anemia History of alcohol abuse Morbid obesity Insomnia Depression Pulmonary embolism Obesity Surgical History History of incisional hernia repair S/P cholecystectomy History of inguinal hernia repair Hx of gastric bypass Family History Mother No problems noted. Father No problems noted. Family/Other Substance use disorder Social History Household Members: None Household Members Other:: lives with mother Housing: Apartment Do you presently have visiting nurse or other home services: No Unable to assess alcohol history related to: Unable to respond Alcohol intake: former Year quit: 2019 Comment: pt refusing alarms Patient Tobacco Use Status: Never used Tobacco e-Cigarette/Vaping Use: Never Used Second Hand Smoke Exposure: No Substance Use Type: Other Advance Directives Date on File: 03/13/21 service: No Current occupational status: retired Cognitive needs: No Hearing needs: No Vision needs: Yes (Glasses) Questionnaire PHQ-9 Over the last 2 weeks, how often have you been bothered by any of the following problems? 1. Little interest or pleasure in doing things: not at all 2. Feeling down, depressed, or hopeless: not at all 3. Trouble falling or staying asleep, or sleeping too much: not at all 4. Feeling tired or having little energy: not at all 5. Poor appetite or overeating: not at all 6. Feeling bad about yourself - or that you are a failure or have let yourself or your family down: not at all 7. Trouble concentrating on things, such as reading the newspaper or watching television: not at all 8. Moving or speaking so slowly that other people could have noticed. Or the opposite - being so fidgety or restless that you have been moving around a lot more than usual: not at all 9. Thoughts that you would be better off or of hurting yourself in some way: not at all Total score: 0 Depression Screening Interpretation: Negative Depression Screening Done: Yes 39860 - PHQ-9 Billing: Yes Source: Developed by Drs. Ilia Velez, Rosetta Celaya, Tani Feng and colleagues, with an educational pia from [employer] software. Thrive Questionnaire Date Thrive assessed: 09/28/24 I am a: Patient What is your living situation today?: I have a steady place to live Within the past 12 months, did the food you bought not last and you didn't have the money to get more?: Sometimes True Within the past 12 months, did you worry whether your food would run out before you got money to buy more?: Sometimes True Do you have trouble paying for medicines?: No Do you have trouble getting transportation to medical appointments?: Yes Do you have trouble paying your heating and electricity bill?: No Do you have trouble taking care of your child, family member or friend?: No Do you have trouble with day-to-day activities such as bathing, preparing meals, shopping, managing finances, etc.?: Yes Are you currently unemployed and looking for a job?: No Are you interested in more education?: No Currently or been in a relationship where the following occur: No concerns reported THRIVE Score: 3 AUDIT C Alcohol Use Questionnaire (AUDIT-C) 1. How often do you have a drink containing alcohol?: 2-4 times a month 2. How many drinks containing alcohol do you have on a typical day when you are drinking?: 3 or 4 3. How often do you have six or more drinks on one occasion?: Never Total Score: 3 CEFERINO-7 AMB Questionnaire CEFERINO-7 Date CEFERINO - 7 assessed: 09/30/24 Feeling nervous, anxious, or on edge: 1 = Several days Not being able to stop or control worryin = Several days Worrying too much about different things: 1 = Several days Trouble relaxin = Several days Being so restless that it is hard to sit still: 0 = Not at all Becoming easily annoyed or irritable: 0 = Not at all Feeling afraid as if something awful might happen: 0 = Not at all Total CEFERINO-7 score (0-4 normal; 5-9 mild; 10-14 moderate; 15-21 severe): 4 Source: Developed by Drs. Ilia Velez, Rosetta Celaya, Tani Feng and colleagues, with an educational pia from [employer] software. CEFERINO-7 Assessment Billing CEFERINO-7 Assessment Tool: CEFERINO-7 Assessment 57335 Review of Systems Const Denies body aches, Denies chills, Denies fever(s), Denies headache(s) and Denies poor appetite Eyes Reports no additional complaints ENT Denies dysphagia, Denies dizziness, Denies headache(s) and Denies odynophagia Card Denies chest pain, Denies syncope, Denies edema, Denies irregular heart rhythm, Denies lightheadedness and Denies dyspnea Resp Denies cough and Denies dyspnea GI Denies abdominal pain, Denies constipation, Denies dysphagia, Denies diarrhea, Denies nausea, Denies odynophagia and Denies vomiting Reports no additional complaints Musc Reports no additional complaints and Denies abnormal gait Skin/Breast Reports system reviewed and no additional complaints, except as documented Neuro Denies abnormal gait, Denies dizziness, Denies syncope and Denies headache(s) Psych Reports no additional complaints Physical exam (Primary Care) Vital Signs: Last Vital Signs Temp 97 F 09/30/24 11:30 Pulse 101 H 09/30/24 11:30 BP 132/88 09/30/24 11:30 Pulse Ox 99 09/30/24 11:30 Oxygen Delivery Method Room Air 09/30/24 11:30 BMI result Body Mass Index 46.6 Tobacco/Smoking Status: Tobacco use Status Tobacco use date assessed 09/30/24 09/30/24 11:36 Patient Tobacco Use Status Never used Tobacco 09/30/24 11:36 e-Cigarette/Vaping Use Never Used 09/30/24 11:36 PHQ-9: PHQ-9 Score PHQ-9: Total score 0 10/01/24 08:05 Depression Screening Interpretation: Negative Thrive Assessment: Date of Thrive Assessment Date Thrive assessed 09/28/24 09/30/24 11:36 Currently or been in a relationship where the following occur: No concerns reported Const General: cooperative, healthy appearing, comfortable and no acute distress Orientation/consciousness: patient oriented x3 HENMT Head: Yes normocephalic Ears: hearing grossly normal bilaterally General nose exam: Normal external nose present Eyes General: appearance normal, both eyes and all related structures Conjunctivae: conjunctivae normal Neck Neck: Yes full ROM and Yes no lymphadenopathy Resp Effort & Inspection: normal respiratory effort Auscultation: clear to auscultation bilaterally, no crackles, no rales, no rhonchi and no wheezes Cardio Rate: regular rate Rhythm: regular rhythm Skin Other: Venous stasis dermatitis of bilateral lower extremities with discoloration and skin thickening General skin exam: no rashes or lesions noted Neuro General: patient oriented x3 Gait exam (Neuro): Normal gait present Extrem Other: Erythema to the anterior aspect of the left lower extremity. No significant swelling or tenderness to the bilateral lower extremities. Intact pulses, strength, sensation in bilateral lower extremities General: Yes normal to inspection, Yes full ROM and No edema Psych Affect: normal affect Attitude: cooperative Insight: Good insight present (Psych) Judgement: Good judgement present (Psych) Coding Level of Care Code New Pt Level 4 (31740) Diagnoses Cellulitis L03.90 Site of cellulitis: extremity Site of cellulitis of extremity: lower extremity Chronic atrial fibrillation I48.20 Thoracic aortic aneurysm I71.2 Venous stasis dermatitis of both lower extremities I87.2 Depression F32.9 GERD (gastroesophageal reflux disease) K21.9 Injury of ankle, left S99.912A Encounter type: initial encounter BPH (benign prostatic hyperplasia) N40.0 Primary insomnia F51.01 Insomnia type: primary Hypercholesterolemia E78.00 Bilateral leg pain M79.604; M79.605 Additional Codes CEFERINO-7 Assessment Billing - CEFERINO-7 Assessment Tool: CEFERINO-7 Assessment 13183 ([id number]) PHQ-9 - 88978 - PHQ-9 Billing: Yes ([id number]) Assessment & Plan Assessment & Plan (1) Cellulitis: Comment: He has recurrent redness leg and vascular disease Code(s): L03.90 - Cellulitis, unspecified Category: Medical Qualifiers: Site of cellulitis: extremity Site of cellulitis of extremity: lower extremity Plan: Patient currently being treated for cellulitis of the right lower extremity. On exam today his left lower extremity has new redness, warmth in the anterior aspect of the lower extremity. No calf pain, swelling or warmth and low suspicion for DVT at this time and is also on anticoagulation with Eliquis. I consulted with also evaluated this patient and determined to be cellulitis plan to treat with doxycycline twice daily for 7 days. I contacted his Infectious Disease Dr. Garcia who was okay with this plan in his aware the patient has breakthroughs cellulitis while on the penicillin. (2) Chronic atrial fibrillation: Code(s): I48.20 - Chronic atrial fibrillation, unspecified Category: Medical Plan: Patient having history of chronic AFib currently on full oral anticoagulation with the apixaban, treated with digoxin and diltiazem as prescribed by SNF. Plan to obtain Cardiology consult and referral was placed today (3) Thoracic aortic aneurysm: Code(s): I71.2 - Thoracic aortic aneurysm, without rupture Category: Medical Plan: Patient having a history of thoracic aortic aneurysm plan to obtain Cardiology and vascular consult and consider repeat echocardiogram. (4) Venous stasis dermatitis of both lower extremities: Code(s): I87.2 - Venous insufficiency (chronic) (peripheral) Category: Medical Plan: Patient having chronic venous stasis dermatitis of bilateral lower extremities with recurrent cellulitis. Plan to refer to vascular surgery for further evaluation and treatment (5) Depression: Code(s): F32.9 - Major depressive disorder, single episode, unspecified Category: Medical Plan: Patient having history of depression which has managed well with duloxetine and vilazodone. Declining counselor at this time (6) GERD (gastroesophageal reflux disease): Code(s): K21.9 - Gastro-esophageal reflux disease without esophagitis Category: Medical Plan: Avoid trigger foods such as citrus, tomato products, soda, caffeine, spicy foods and other foods that may be irritating to your stomach. Avoid laying flat 3-4 hours after eating and elevate the head of the bed 30 degrees to prevent acid from moving into the esophagus. Patient denies any symptoms at this time and would like to discontinue his omeprazole. No history of GI bleed or ulcers, discontinue at this time. I did however reviewed red flag symptoms and when to present for re-evaluation (7) Injury of ankle, left: Code(s): S99.912A - Unspecified injury of left ankle, initial encounter Category: Medical Qualifiers: Encounter type: initial encounter Qualified Code(s): S99.912A - Unspecified injury of left ankle, initial encounter Plan: Patient having twisting injury of the left ankle and is currently wearing a boot. I did discuss with the patient he should periodically removed with the boot and stretch the ankle to prevent stiffness. He is working on establishing VNA services at this time and referral was placed for physical therapy in home. (8) BPH (benign prostatic hyperplasia): Code(s): N40.0 - Benign prostatic hyperplasia without lower urinary tract symptoms Category: Medical Plan: Patient is on tamsulosin for BPH plan to obtain repeat PSA and consider referral to Urology. (9) Insomnia: Code(s): G47.00 - Insomnia, unspecified Category: Medical Qualifiers: Insomnia type: primary Qualified Code(s): F51.01 - Primary insomnia Plan: Patient is on Ambien with good benefit her insomnia. (10) Hypercholesterolemia: Code(s): E78.00 - Pure hypercholesterolemia, unspecified Category: Medical Plan: Avoid foods that are high in cholesterol such as red meat, fried foods, eggs and baked goods. Triglyceride goal of less than 150 and LDL goal of less than 100. Continue on atorvastatin 40 (11) Bilateral leg pain: Code(s): M79.604 - Pain in right leg; M79.605 - Pain in left leg Category: Medical Plan: Patient having chronic bilateral lower leg pain currently managed with gabapentin and oxycodone. I did discuss with the patient oxycodone is not a medication that we typically use for long-term treatment of chronic pain. Plan to have patient see pain management and fill out drug contract at next visit. Plan The patient will continue with penicillin for chronic cellulitis and erysipelas, and doxycycline will be added to address the current exacerbation. A referral to infectious disease will be made to ensure comprehensive management of these conditions. The patient's atrial fibrillation requires urgent cardiology follow-up to optimize management and prevent complications. Additionally, the patient's chronic pain, primarily in the legs, will be addressed by referring him to pain management to explore safer and more effective treatment options. The patient's medication regimen will be reviewed to potentially reduce the number of medications, particularly those that may no longer be necessary or beneficial. Blood pressure monitoring will continue, given the history of atrial fibrillation, and a referral to cardiology has been made to ensure appropriate management. Follow-up appointments will be scheduled to monitor the patient's progress and adjust the treatment plan as needed. This note was constructed using voice recognition software. While every effort has been made to ensure accuracy and signal intelligence/electronic warfare, still areas may have been included sometimes these areas may affect the content or meeting of the given symptoms. Total time spent caring for the patient today was 45 minutes. This includes time spent before the visit reviewing the chart, time spent during the visit, and time spent after the visit and documentation. Patient was informed and verbally consented to the use of an ambient scribe for clinic note documentation during this visit. Orders: Orders Vitamin D 25-OH Total 09/30/24 I87.2 - Venous insufficiency (chronic) (peripheral), Z00.00 - Encounter for general adult medical examination without abnormal findings Free T4 (Free Thyroxine) 09/30/24 I87.2 - Venous insufficiency (chronic) (peripheral), Z00.00 - Encounter for general adult medical examination without abnormal findings Lipid Panel 09/30/24 E78.00 - Pure hypercholesterolemia, unspecified Vitamin B12 and Folate 09/30/24 I87.2 - Venous insufficiency (chronic) (peripheral), Z13.21 - Encounter for screening for nutritional disorder TSH reflex Free T4 09/30/24 I87.2 - Venous insufficiency (chronic) (peripheral), Z00.00 - Encounter for general adult medical examination without abnormal findings PSA, Ultra Sensitive Today N40.0 - Benign prostatic hyperplasia without lower urinary tract symptoms, Z00.00 - Encounter for general adult medical examination without abnormal findings Referrals [facility] Referral S99.912A - Unspecified injury of left ankle, initial encounter Cardiology Referral I48.20 - Chronic atrial fibrillation, unspecified, I71.2 - Thoracic aortic aneurysm, without rupture Pain Management Referral I87.2 - Venous insufficiency (chronic) (peripheral), M79.604 - Pain in right leg, M79.605 - Pain in left leg Vascular Surgery Referral I71.2 - Thoracic aortic aneurysm, without rupture, I87.2 - Venous insufficiency (chronic) (peripheral) Medications: New oxycodone 10 mg PO Q6H 56 tabs 0RF pain 14 days ammonium lactate 12% (AmLactin) 1 appl topical DAILY 225 grams 1RF doxycycline hyclate 100 mg PO BID 14 caps 0RF 7 days oxycodone 10 mg PO Q6H 30 days PRN 120 tabs 0RF pain Refilled zolpidem 10 mg PO BEDTIME PRN 30 tabs 0RF Sleep
[2024-09-30 11:30] VITALS: BP 132/88; PULSE 101; TEMP 36.1; O2SAT 99; BMI 46.6
--- OUTSIDE RECORDS SUMMARY | 2024-09-30 13:26 | XMS_ITS | Clinical Summary ---
Author Organization [facility] Address [address] [place] [address] Care Team Providers Care Educational Administrator Name Role Phone Maty Darnell MD Primary Care Provider [phone] Allergies No known active allergies Medications Medication [...] 76 11/23/2019 9:19 AM EDT Temperature 36.7 C (98.1 F) 11/23/2019 9:19 AM EDT Respiratory Rate 19 11/23/2019 9:19 AM EDT [...] of 1 - PCV) 2023 Influenza Vaccine (Season Ended) 2024 04/05/20 10 RSV Adult > 60+ Yrs or Pregn ant (1 - 1-dose 75+ series) 2033 Hepatitis B Vaccines Aged Out No long er eligible based on patient's age to complete this topic RSV Ped < 20 months Aged Out No longe r eligible based on patient's age to complete this topic Advance Directives For more information, please contact: [phone] Latest Code Status on File Code Status [...] in the following way:. . Care Teams Educational Administrator Relationship Specialty Start Date End Date Maty Darnell MD [address] [place] [address] [address] [place] [id number] PCP - General Internal Medicine 10/24/19
== END 2024-09-30 12:44 | disposition home or self-care (01) ==
DX: L03.90 Cellulitis, unspecified (principal); I48.20 Chronic atrial fibrillation, unspecified; I71.20 Thoracic aortic aneurysm, without rupture, unspecified; I87.2 Venous insufficiency (chronic) (peripheral); F32.9 Major depressive disorder, single episode, unspecified; K21.9 Gastro-esophageal reflux disease without esophagitis; S99.912A Unspecified injury of left ankle, initial encounter; N40.0 Benign prostatic hyperplasia without lower urinary tract symptoms; F51.01 Primary insomnia; E78.00 Pure hypercholesterolemia, unspecified; M79.604 Pain in right leg; M79.605 Pain in left leg

== ENCOUNTER → 2024-09-30 11:18 | Outpatient (BNVA) | payer MEDICARE, MEDICAID, SELFPAY | DX: L03.90 Cellulitis, unspecified (principal); I48.20 Chronic atrial fibrillation, unspecified; I71.20 Thoracic aortic aneurysm, without rupture, unspecified; I87.2 Venous insufficiency (chronic) (peripheral); F32.9 Major depressive disorder, single episode, unspecified; K21.9 Gastro-esophageal reflux disease without esophagitis; F51.01 Primary insomnia; E78.00 Pure hypercholesterolemia, unspecified; M79.604 Pain in right leg; M79.605 Pain in left leg; S99.912D Unspecified injury of left ankle, subsequent encounter | CPT/HCPCS: 96127; 99202 ==

== ENCOUNTER 2024-10-05 06:03 | Emergency (ER) | payer MEDICARE, MEDICAID, SELFPAY ==
[2024-10-05 06:07] VITALS: BP 148/94; PULSE 80; O2SAT 97
[2024-10-05 06:08] VITALS: BP 108/50; PULSE 89; RESP 20; TEMP 36.8; O2SAT 96; BMI 42.0
--- NOTE | 2024-10-05 07:06 | ED_ITS ---
HPI - Extremity Problem General Chief complaint: Extremity Injury, Lower Stated complaint: leg pain/ swelling, hx: neuropathy & cellulitis Time Seen by Provider: 10/05/24 07:02 Source: patient, EMS and old records reviewed Mode of arrival: EMS Limitations: no limitations History of Present Illness ED Provider: CHELSEA HPI Narrative: 64 yo male with PMH of leg pain, BPH, chronic afib on eliquis, anemia, depression, cellulitis, venous stasis dermatitis of both legs who just left rehab on saturday for FTT. He notes since then he has pain in both legs and he was told on saturday by his PCP that his legs are infected again - on saturday he started on doxy and PCN but came in due to the pain. He states he gets his oxycodone Rx from his PCP. He notes he wants to go back to rehab otherwise his legs get infected. I had a long talk that today they are not infected either they never were or he responded to the abx. Other than pain no systemic symptoms. MD Complaint: extremity pain Onset (ago): month(s) Pain Consistency: intermittent Location: left, right and lower extremity Quality: aching and constant Radiation: none Relieving factors: immobilization Exacerbating factors: weight bearing and walking Associated symptoms: denies other symptoms Context: other Related Data Home Medications ?Medication ?Instructions ?Recorded ?Confirmed acetaminophen 325 mg tablet 325 mg PO QID PRN Pain 10/05/24 allopurinol 100 mg tablet 100 mg PO DAILY 06/19/24 apixaban 2.5 mg tablet (Eliquis) 2.5 mg PO BID 5 10/05/24 atorvastatin 40 mg tablet 40 mg PO BEDTIME 06/19/24 digoxin 250 mcg (0.25 mg) tablet 250 mcg PO DAILY 06/0610/05/24 diltiazem HCl 120 mg 120 mg PO DAILY 06/19/24 capsule,extended release 24 hr tamsulosin 0.4 mg capsule 0.4 mg PO DAILY 06/19/24 vilazodone 20 mg tablet 20 mg PO DAILY 06/19/2409/08 duloxetine 30 mg capsule,delayed 30 mg PO BID 09/09/24 10/05/24 release penicillin V potassium 250 mg 250 mg PO BID 09/09/24 0 10/05/24 tablet potassium chloride 20 mEq 20 meq PO DAILY 09/09/24 tablet,extended release furosemide 80 mg tablet 80 mg PO BID 09/30/24 gabapentin 800 mg tablet 800 mg PO TID 09/30/2410/05 spironolactone 50 mg tablet 50 mg PO DAILY 09/30/24 oxycodone 5 mg tablet 5 mg PO Q6H PRN Pain 5 10/05/24 Previous Rx's ?Medication ?Instructions ?Recorded ammonium lactate 12 % lotion 1 appl topical DAILY #225 grams 09/30/24 (AmLactin) doxycycline hyclate 100 mg capsule 100 mg PO BID 7 day s #14 caps 09/30/24 zolpidem 10 mg tablet 10 mg PO BEDTIME PRN Sleep # 30 tabs 09/30/24 oxycodone 10 mg tablet 10 mg PO QID pain #12 tabs 0 10/15/24 Allergies Allergy/AdvReac Type Severity Reaction Status Date / Time No Known Allergies Allergy Verified 10/05/24 06:16 Review of Systems 2 Review of Systems: Constitutional : No Fever, No Chills ENT/Mouth : No sore throat, No Rhinorrhea Eyes: No Eye Pain, No Swelling, No Redness Cardiovascular : No Chest Pain, No SOB Respiratory : No Cough, No Sputum Gastrointestinal : No Nausea, No Vomiting, No Diarrhea, No abdominal Pain Genitourinary : No Dysuria, No Hematuria Musculoskeletal : No joint pain, No Myalgias, No Joint Swelling Skin : No Skin Lesions, positive skin rash Neuro : No Weakness, No Numbness, No Headache Psych : No Anxiety, No Depression Heme/Lymph: No Bruising, No Bleeding,No Lymphadenopathy Endocrine : No Polyuria, No Polydipsia All other systems reviewed and are negative [facility] Past Medical History Attestation statement: The following information was validated with the patient. Source: old records reviewed Medical History Morbid obesity Atrial fibrillation with RVR Chest pain Atrial fibrillation with RVR Sciatica ARIAN (acute kidney injury) Atrial fibrillation with RVR Alcohol withdrawal delirium Oral thrush Metabolic acidosis with increased anion gap and accumulation of organic acids Alcohol withdrawal Heart failure with left ventricular ejection fraction greater than or equal to 50 percent Incarcerated incisional hernia Atrial fibrillation with RVR Alcohol dependence Alcohol intoxication Thoracic aortic aneurysm Chronic atrial fibrillation Toenail deformity Dyslipidemia Anemia History of alcohol abuse Morbid obesity Insomnia Depression Pulmonary embolism Obesity Surgical History History of incisional hernia repair S/P cholecystectomy History of inguinal hernia repair Hx of gastric bypass Family History Family History Mother No problems noted. Father No problems noted. Family/Other Substance use disorder Social History Social History Household Members: None Household Members Other:: lives with mother Housing: Apartment Do you presently have visiting nurse or other home services: No Unable to assess alcohol history related to: Unable to respond Alcohol intake: former Year quit: 2020 Comment: pt refusing alarms Patient Tobacco Use Status: Never used Tobacco e-Cigarette/Vaping Use: Never Used Second Hand Smoke Exposure: No Substance Use Type: Other Advance Directives Date on File: 03/13/21 service: No Current occupational status: retired Cognitive needs: No Hearing needs: No Vision needs: Yes (Glasses) Physical Exam 2 Vital Signs: Vital Signs: Last Vital Signs Temp 97.9 F 10/15/24 14:00 Pulse 85 10/15/24 14:00 Resp 16 10/15/24 14:00 BP 124/82 10/15/24 14:00 Pulse Ox 96 10/15/24 14:00 O2 Del Method Room Air 10/15/24 14:00 BMI result Body Mass Index 42.0 Appearance: Alert. Oriented X3. No acute distress. Up and walking around no issues or signs of unsteady gait Eyes: Pupils equal, round and reactive to light. ENT: Pharynx normal. Neck: Normal inspection. Neck supple. CVS: Normal heart rate and rhythm. Pulses normal. Respiratory: No respiratory distress. Breath sounds normal. Abdomen: Soft and nontender. Skin: Skin warm and dry. Normal skin color. Normal skin turgor. Extremities: No lower extremity edema. No calf ttp he has chronic darkened areas of both legs but no warmth, redness, abscess noted, pulses intact Neuro: Oriented X 3. No motor deficit. No sensory deficit. CN2-12 intact Course Reevaluation(s) Reevaluation #1: The patient continues to ask for additional doses of oxycodone. His medications were modified earlier, I have added and p.r.n. Tylenol, he already has a PRN 5 mg oxycodone. Reevaluation #2: Patient again is asking for more pain medication, I am ordering a 1 time dose of 5 mg oxycodone Reevaluation #3: Time: 10:30AM Date: 10/06/24 Provider: IRAM Lassiter Patient in physician observation for case management needs. No acute events reported overnight.? No current issues or complaints. VS stable. pending PT/CM dispo. Will continue to monitor. Additional Reevaluation(s): 12:36 AM 10/07/2024 (Chucky WALDEN): Patient reporting his pain is uncontrolled, patient advises he receives 10 mg oxycodone q.6 hours at home, currently ordered for 5 mg. The patient's dispensed report was reviewed and confirms patient received 10 mg oxycodone q.6 hours for pain p.r.n. at home. Patient's orders updated to 10 mg q.6 hours PRN. 4:13 AM 10/07/2024 (Chucky WALDEN): Patient was reassessed by this provider due to concerns expressed regarding worsening redness of the bilateral lower extremities, upon reassessment the patient's lower extremities appear similar to picture in patient's chart, no significant change. There is no induration, overlying warmth, or other evidence of developing infection. No indication for antibiotics at this time. Patient was reassured. L 10/07/2024 1009 Violet Varela PA-C ---> Observation continues. Case management continues to follow. Time: 08:10 Date: 10/08/24 Provider: IRAM Torres Patient in physician observation for case management needs. No acute events reported overnight.? No current issues or complaints. VS stable. Patient is pending PT/CM eval. Will continue to monitor. Time: 13:20 Date: 10/09/24 Provider: IRAM Torres Patient has expressed concerns for increasing redness to his right lower extremity. He tells me he has concern for cellulitis. I did evaluate patient at bedside. Compared to photos in charge, there is no significant change. No overlying warmth or induration. I do not have concern for infection. I attempted to reassure patient, marked area with skin pen to monitor. No indication for antibiotics at this time. I was also informed that he was endorsing myalgias x2 days. Same this is how he felt the last time he had COVID. He denies any other symptoms including fever, chills, sore throat, cough. he has been up and ambulating throughout the day. staying hydrated. It appears that patient has not had blood work in over a month. I did order screening labs and viral swabs. CBC does not demonstrate leukocytosis. H and H around baseline. Chemistry without acute electrolyte abnormality requiring intervention. Renal function around baseline. CK WNL. No concern for rhabdo. Negative COVID, flu, RSV. Patient remains in physician observation for case management needs. No acute events reported overnight.? VS stable. Per PT, patient is requesting short-term rehab. He is pending placement at facility via case management. Will continue to monitor. Time: 08:05 Date: 10/10/24 Provider: IRAM Torres Patient in physician observation for case management needs. No acute events reported overnight.? No current issues or complaints. VS stable. Patient is pending placement at facility. Will continue to monitor. Time: 08:16 Date: 10/11/24 Provider: IRAM Torres Patient in physician observation for case management needs. No acute events reported overnight.? No current issues or complaints. VS stable. Patient is pending placement at facility. Will continue to monitor. 10/11/24 1115 IRAM Torres patient requesting hemorrhoid cream. Hydrocortisone rectal cream ordered. Time: 15:29 Date: 10/12/24 Provider: IRAM Lassiter Patient in physician observation for case management needs. No acute events reported overnight.? No current issues or complaints. VS stable. Patient is pending placement at facility. Will continue to monitor. 10/13/2024 0826 Violet Varela PA-C ---> Observation continues. Case management continues to follow the patient. 10/14/24 1407 SHAE John: Physician observation continued, no overnight events reported by nursing. Case management following for disposition to facility. 10/15/24 [id number] SHAE John: Per Chantal from , patient will be discharged to [facility] at 1730 today. Rehab expected to be less than 30 days. Observation care revealed that patient does not meet medical necessity for hospitalization. Final disposition discussed with patient. The patient completed observation care at 1730 on 10/15/2024. Medications Administered Discontinued Medications Generic Name Dose Route Start Last Admin Trade Name Angel PRN Reason Stop Dose Admin Acetaminophen 650 mg 10/05/24 10:15 10/15/24 15:44 Acetaminophen 325 Mg Tablet PO 650 mg Q6H MARILEE Administration Allopurinol 100 mg 10/06/24 09:00 10/15/24 08:26 Allopurinol 100 Mg Tablet PO 100 mg DAILY MARILEE Administration Apixaban 2.5 mg 10/05/24 21:00 10/15/24 08:33 Apixaban 2.5 Mg Tablet PO 2.5 mg BID MARILEE Administration Atorvastatin Calcium 40 mg 10/05/24 21:00 10/14/24 20:07 Atorvastatin Calcium 40 Mg Tablet PO 40 mg BEDTIME MARILEE Administration Digoxin 0.25 mg 10/06/24 09:00 10/15/24 08:32 Digoxin 0.25 Mg Tablet PO 0.25 mg DAILY MARILEE Administration Protocol Diltiazem HCl 120 mg 10/06/24 09:00 10/15/24 08:32 Diltiazem Hcl Cd 120 Mg Cap.Er.Deg PO 120 mg DAILY MARILEE Administration Protocol Doxycycline Monohydrate 100 mg 10/05/24 09:00 10/06/24 20:10 Doxycycline Monohydrate 100 Mg Capsule PO 10/06/24 21:00 100 mg BID MARILEE Administration Duloxetine HCl 30 mg 10/05/24 21:00 10/15/24 08:27 Duloxetine Hcl 30 Mg Capsule.Dr PO 30 mg BID MARILEE Administration Furosemide 80 mg 10/05/24 21:00 10/15/24 08:33 Furosemide 40 Mg Tablet PO 80 mg BID MARILEE Administration Protocol Gabapentin 800 mg 10/05/24 21:00 10/12/24 10:13 Gabapentin 400 Mg Capsule PO Not Given TID MARILEE Gabapentin 800 mg 10/12/24 10:00 10/15/24 15:45 Gabapentin 400 Mg Capsule PO 800 mg TID@1000,1600,2200 MARILEE Administration Hydrocortisone 1 appl 10/11/24 11:13 10/11/24 12:12 Hydrocortisone 2.5 % Rectal Cr 30 Gm Tube WI 10/11/24 11:14 1 appl ONCE ONE Administration Lactic Acid 1 appl 10/06/24 09:00 10/15/24 08:33 Ammonium Lactate 12 % Lotion 226 Gm Bottle TOPICAL 1 appl DAILY MARILEE Administration Protocol Oxycodone HCl 10 mg 10/05/24 07:22 10/05/24 13:16 Oxycodone Hcl Immed Release 5 Mg Tablet PO 10 mg Q6H PRN Administration Pain, Moderate(Pain Scale 4-6) Oxycodone HCl 5 mg 10/05/24 16:13 10/07/24 00:57 Oxycodone Hcl Immed Release 5 Mg Tablet PO 5 mg Q6H PRN Administration Pain, Moderate(Pain Scale 4-6) Oxycodone HCl 5 mg 10/05/24 23:24 10/05/24 23:41 Oxycodone Hcl Immed Release 5 Mg Tablet PO 10/05/24 23:25 5 mg ONCE ONE Administration Oxycodone HCl 10 mg 10/07/24 00:31 10/11/24 22:19 Oxycodone Hcl Immed Release 5 Mg Tablet PO 10 mg Q6H PRN Administration severe pain Oxycodone HCl 10 mg 10/12/24 05:07 10/12/24 05:13 Oxycodone Hcl Immed Release 5 Mg Tablet PO 10 mg Q6H PRN Administration Pain, Severe (Pain Scale 7-10) Oxycodone HCl 10 mg 10/12/24 09:00 10/12/24 10:14 Oxycodone Hcl Immed Release 5 Mg Tablet PO Not Given Q6H MARILEE Oxycodone HCl 10 mg 10/12/24 10:00 10/15/24 15:45 Oxycodone Hcl Immed Release 5 Mg Tablet PO 10 mg QID@0400,1000,1600,2200 MARILEE Administration Penicillin V Potassium 250 mg 10/05/24 09:00 10/06/24 09:15 Penicillin V Potassium 250 Mg Tablet PO 10/06/24 09:00 250 mg BID MARILEE Administration Potassium Chloride 20 meq 10/06/24 09:00 10/15/24 08:36 Potassium Chloride Er 20 Meq Tab.Er.Prt PO 20 meq DAILY MARILEE Administration Spironolactone 50 mg 10/06/24 09:00 10/15/24 08:27 Spironolactone 25 Mg Tablet PO 50 mg DAILY MARILEE Administration Protocol Tamsulosin HCl 0.4 mg 10/06/24 09:00 10/15/24 08:27 Tamsulosin Hcl 0.4 Mg Capsule PO 0.4 mg DAILY MARILEE Administration Vilazodone HCl 20 mg 10/06/24 09:00 10/15/24 08:32 Vilazodone Hcl 20 Mg Tablet PO 20 mg DAILY MARILEE Administration Zolpidem Tartrate 10 mg 10/05/24 16:10 10/09/24 20:25 Zolpidem Tartrate 5 Mg Tablet PO 10 mg BEDTIME PRN Administration Sleep Zolpidem Tartrate 10 mg 10/10/24 20:35 10/14/24 20:06 Zolpidem Tartrate 5 Mg Tablet PO 10 mg BEDTIME PRN Administration Insomnia Medical Decision Making Medical Decision Making MDM Narrative: 64 yo male with PMH of leg pain, BPH, chronic afib on eliquis, anemia, depression, cellulitis, venous stasis dermatitis now here with worsening leg pain but no signs of infection there is no redness, warmth, fluctuance. He has normal pulses. He is asking for pain medications for his chronic leg pain. At this time he wants rehab - will resume his medications and refer to PT/CM. Differential Diagnosis Differential Diagnoses: The differential diagnosis associated with the presentation includes FTT, venous stasis dermatitis, opiate dependence Admission/Observation Consideration of admission/observation: Escalation of care including admission/observation considered physician observation started at 737am pending PT/CM Consult Healthcare Provider Management of the patient was discussed with: Jewelry [employer]ater Lab Data 10/09/24 12:27 10/09/24 12:27 Labs: Lab Results 10/05/24 10/09/24 Range/Units 11:05 12:27 WBC 9.0 (4.8-10.8) X10*3/uL RBC 4.77 (4.60-5.80) X10*6/uL Hgb 13.5 L (14.0-18.0) g/dl Hct 42.3 (42.0-52.0) % MCV 88.7 (80.0-98.0) fL MCH 28.3 (27.0-33.0) pg MCHC 31.9 (31.0-36.0) g/dl RDW 16.9 H (11.0-16.0) % Plt Count 214 (160-400) X10*3/uL MPV 10.4 (9.4-12.4) fL Immature Gran % (Auto) 0.3 (0.0-0.4) % Neut % (Auto) 79.4 H (45-73) % Lymph % (Auto) 9.8 L (20-40) % [place] % (Auto) 7.4 (2-11) % Eos % (Auto) 2.3 (0-4) % Baso % (Auto) 0.8 (0-2) % Lymph # (Auto) 0.9 L (1.2-4.9) X10*3/uL [place] # (Auto) 0.7 (0.1-1.2) X10*3/uL Eos # (Auto) 0.2 (0.0-0.4) X10*3/uL Baso # (Auto) 0.1 (0.0-0.2) X10*3/uL Abs Immat Gran (auto) 0.03 (0.00-0.03) X10*3/uL Absolute Neuts (auto) 7.1 (2.0-8.3) x10*3/uL Absolute Nucleated RBC 0.000 (0.0-0.012) X10*3/uL Nucleated RBC % (auto) 0.0 (0.0-0.2) /100WBC Sodium 139 (135-145) mmol/L Potassium 4.1 (3.3-5.1) mmol/L Chloride 100 (96-108) mmol/L Carbon Dioxide 31 H (22-29) mmol/L Anion Gap 12 (12-20) BUN 18 H (9-16) mg/dL Creatinine 0.97 (0.5-1.4) mg/dL Estim Creat Clear Calc 108.9 Estimated GFR > 60 Random Glucose 109 (60-115) mg/dL Calcium 8.9 (8.4-10.2) mg/dL Total Creatine Kinase 52 (38-174) U/L Influenza Type A (PCR) NEGATIVE (Negative) Influenza Type B (PCR) NEGATIVE (Negative) RSV RNA Qual (PCR) NEGATIVE (Negative) SARS-CoV-2 RNA (RT-PCR) NEGATIVE (Negative) Independent Historian Clinical information obtained from an independent historian. History obtained from or confirmed by: EMS External Record Review External record reviewed: Inpatient record and Outpatient record Social Determinants Patient?s care significantly limited by Social Determinants of Health including: Problems related to primary support group Discharge Plan Discharge Clinical Impression: Venous stasis dermatitis of both lower extremities Patient Disposition: [facility] Transfer Details: to [facility] Instructions: Venous Insufficiency (DC) Prescriptions: New oxycodone 10 mg tablet 10 mg PO QID Qty: 12 0RF Rx Instructions: Partial Fill upon patient request. No Action oxycodone 5 mg Tablet 5 mg PO Q6H PRN (Reason: Pain) diltiazem HCl 120 mg Capsule,Extended Release 24hr 120 mg PO DAILY atorvastatin 40 mg Tablet 40 mg PO BEDTIME acetaminophen 325 mg Tablet 325 mg PO QID PRN (Reason: Pain) allopurinol 100 mg Tablet 100 mg PO DAILY digoxin 250 mcg (0.25 mg) Tablet 250 mcg PO DAILY tamsulosin 0.4 mg Capsule 0.4 mg PO DAILY vilazodone 20 mg Tablet 20 mg PO DAILY Rx Instructions: must administer with a meal/food Eliquis 2.5 mg Tablet 2.5 mg PO BID penicillin V potassium 250 mg tablet 250 mg PO BID Rx Instructions: for 30 days duloxetine 30 mg capsule,delayed release(DR/EC) 30 mg PO BID potassium chloride 20 mEq Tablet Extended Release 20 meq PO DAILY furosemide 80 mg tablet 80 mg PO BID gabapentin 800 mg tablet 800 mg PO TID spironolactone 50 mg tablet 50 mg PO DAILY ammonium lactate [AmLactin] 12 % lotion 1 appl topical DAILY Qty: 225 1RF doxycycline hyclate 100 mg capsule 100 mg PO BID 7 Days Qty: 14 0RF zolpidem 10 mg tablet 10 mg PO BEDTIME PRN (Reason: Sleep) Qty: 30 0RF Referrals: [facility] [Outside] - 2 weeks Discharge Date/Time: 10/15/24 17:48 Print Language: Eritrean
[2024-10-05] MEDS: oxyCODONE HCl Immed Release 5 MG TABLET 10 MG PO ×2 (07:48→13:16)
--- NOTE | 2024-10-05 08:14 | PC.NURSE ---
resumed care of pt at 0700, pt found to be pacing in room, standing in doorway, asking staff multiple times for pain medication. Pt redirected multiple times, pt provided emotional support at this time. This RN was able to bring in patient PO medications and PRN medications at this time. Pt is awaiting PT/CM eval. he has been in and out of rehabs recently stating they keep DC'ing him and or he hates all these places . Pt provided call ortiz at this time, all safety measures in place.
--- NOTE | 2024-10-05 10:47 | PC.NURSE ---
Pt calm, cooperative. A+Ox4 and ambulatory. Pt c/o 11/15 pain in bilat legs, ongoing. Some scabbing and swelling noted to bilateral legs. RR even and unlabored, denies SOB or chest pain.
[2024-10-05 12:01] LABS: Resp Syncy Virus RNA Qual PCR NEGATIVE (Negative); SARS COV2 PCR INHOUSE NEGATIVE (Negative)
--- NOTE | 2024-10-05 13:47 | MHC.CM.ED ---
Addendum entered by Chantal Mckinney 10/05/24 14:29: MDS completed. Sent to [facility]. Waiting for [facility] Level before patient can transfer to facility. Original Note: Received case management consult from Dr Ramsay. Patient came to the ER d/t leg pain. Patient is well known to due to multiple ER visits requiring STR. Patient was at [facility] from 09/10-09/30. Patient returned home. Established care with PCP on 09/30 and came to ER 10/05. Patient requesting referral to [facility]. Referral made [facility] does not have any beds available. Referral broadcasted in [employer]. [facility] is only facility able to offer a bed at this time. Patient was presented with options of going home with A vs [facility] for STR. Patient will go to [facility]. Waiting for d/c time from [facility]. Continue to monitor for d/c needs.
[2024-10-05 13:52] VITALS: BP 95/67; PULSE 82; TEMP 36.4; O2SAT 96
--- NOTE | 2024-10-05 14:41 | PHA.MEDREC ---
Pharmacy Consult ? Medication Reconciliation Pharmacy has completed the medication reconciliation. Utilized discharge list from admission earlier this month to confirm with pharmacy claims.
--- NOTE | 2024-10-05 19:39 | PC.NURSE ---
Report received and care assumed at 1900. Just now the pt approached the nurses stating reporting that he is sore and was requesting additional pain medication as he reports he was previously told he was due next at 1930. Patient is reporting 8/10 pain at this time and there are no current PRN orders that are appropriate for that pain level. Pt made aware and reports that he was previous dosed with the medication x2, RN attempted to explain to the patient how the medication currently ordered was not able to be given for that pain level and that an outreach would be made to the current KATHY on. This RN sent a tiger message to the ER KATHY requesting additional orders and/or an order adjustment that meets the patient's reported pain. The pt was up to and from the restroom with steady gait and without assistance required, he is inquiring about his evening medications. he offers no other complaints at this time and is well appearing otherwise
[2024-10-05 20:28] VITALS: BP 141/83
[2024-10-05 20:30] VITALS: BP 141/83; PULSE 68; RESP 18; TEMP 36.9; O2SAT 97
[2024-10-05] MEDS: oxyCODONE HCl Immed Release 5 MG TABLET PO ×2 (20:38→23:41)
--- NOTE | 2024-10-05 23:21 | PC.NURSE ---
Pt up to and from restroom, stopping at the nurses station frequently for snacks and to inquire on the possibility of him receiving additional pain medication as the medication is not doing anything to assist with his pain. Pt most recently requested to know who the provider is that is on as he wants to have his legs looked at... RN outreached ER KATHY and new orders to be obtained
[2024-10-06] MEDS: oxyCODONE HCl Immed Release 5 MG TABLET PO ×4 (02:39→21:52)
[2024-10-06 06:00] VITALS: BP 114/78; PULSE 78; RESP 20; TEMP 36.3; O2SAT 97
--- NOTE | 2024-10-06 06:34 | PC.NURSE ---
Pt up to nurses station once again requesting that he be seen by a provider for his bilateral lower extremity pain. States he wants to speak with someone regarding his pain and the pain medication that was adjusted earlier in the shift yesterday. RN attempted to make patient aware that there was nothing identified within the chart to support or explain the change in dose. He is otherwise well appearing, has been up all night, frequently to and from the bathroo to manage his toileting needs and given snacks per request.
[2024-10-06] MEDS: dilTIAZem HCL CD 120 MG CAP.ER.DEG PO (09:15)
[2024-10-06] MEDS: Potassium Chloride ER 20 MEQ TAB.ER.PRT PO (09:18)
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
--- NOTE | 2024-10-06 14:01 | MHC.CM.ED ---
[facility] reviewing Medicaid Questionnaire. Patient will need to be aware that placement is LTC and will need to sign his monthly check over. Patient is aware and agreeable. Waitin to hear if they can officially accept patient. Continue to monitor for d/c needs.
[2024-10-06 14:39] VITALS: BP 120/81; PULSE 110; TEMP 37.1; O2SAT 96
[2024-10-06 20:44] VITALS: BP 129/76; PULSE 93; RESP 18; TEMP 36.2; O2SAT 97
[2024-10-07] MEDS: oxyCODONE HCl Immed Release 5 MG TABLET PO (00:57)
[2024-10-07] MEDS: oxyCODONE HCl Immed Release 5 MG TABLET 10 MG PO ×4 (03:50→20:27)
[2024-10-07 03:56] VITALS: BP 120/77; PULSE 89; RESP 17; TEMP 36.1; O2SAT 95
[2024-10-07 04:40] VITALS: RESP 15
[2024-10-07 06:00] VITALS: RESP 16
--- NOTE | 2024-10-07 08:49 | MHC.CM.ED ---
Addendum entered by Chantal Mckinney 10/07/24 13:30: Patient and Madhuri from [facility] Financial Counselors called [facility]. Patient needs SP-1 form from [facility] and a closer letter from [employer]. Madhrui has reached out to [facility]. Patient is reaching out to [employer]. [facility] made aware. Original Note: Received notification patient's [facility] is now inactive. [facility] financial counseling made aware and assisting patient will getting MH reinstated. Patient will remain in ER until this can be accomplished. Patient is unable to safely return home at this time. There are 11 stairs to get into his basement apartment. Continue to monitor for d/c needs.
[2024-10-07 10:01] VITALS: BP 118/84; PULSE 80
[2024-10-07] MEDS: dilTIAZem HCL CD 120 MG CAP.ER.DEG PO (10:01)
[2024-10-07] MEDS: Potassium Chloride ER 20 MEQ TAB.ER.PRT PO (10:02)
[2024-10-07 14:00] VITALS: BP 106/68; PULSE 97; RESP 20; TEMP 36.5; O2SAT 95
[2024-10-07 20:12] VITALS: BP 127/76; PULSE 89; RESP 16; TEMP 36.5; O2SAT 98
[2024-10-08 03:22] VITALS: BP 135/73; PULSE 94; RESP 18; TEMP 36.2; O2SAT 98
[2024-10-08] MEDS: oxyCODONE HCl Immed Release 5 MG TABLET 10 MG PO ×4 (03:22→21:46)
[2024-10-08 09:05] VITALS: BP 123/72; PULSE 80; RESP 16; TEMP 36.4; O2SAT 95
[2024-10-08] MEDS: Ammonium Lactate 12 % Lotion 226 GM BOTTLE 1 APPL TOPICAL (09:08)
[2024-10-08] MEDS: Potassium Chloride ER 20 MEQ TAB.ER.PRT PO (09:08)
[2024-10-08] MEDS: dilTIAZem HCL CD 120 MG CAP.ER.DEG PO (09:09)
[2024-10-08 11:35] VITALS: BP 99/60; PULSE 109; RESP 16; TEMP 36.3; O2SAT 95
--- NOTE | 2024-10-08 11:37 | PC.NURSE ---
Late documentation of prn pain medication administered 09/07/24 @ 1600 performed
--- NOTE | 2024-10-08 16:36 | MHC.EDTECH ---
Pt ambulated to and from bathroom unassisted with out visable limp or gait disturbance.
[2024-10-08 19:51] VITALS: BP 110/53; PULSE 91; TEMP 36.6; O2SAT 94
[2024-10-08 19:59] VITALS: BP 110/53
--- NOTE | 2024-10-08 20:26 | MHC.CM.ED ---
Cm spoke with patient at the request of the Charge Nurse regarding his continues use of [employer]. CM requested that patient have family/friends bring him food instead of [employer]. [employer] requires ED staff to collect his food in the waiting room. CM also spoke to patient about being unable to store his food safely in the emergency room. Pt states he will not order from [employer] again, but complains that he is not being given enough food. Also complaining about being moved from overflow into the noisy main ED. States he will probably be moved back in the middle of the night. Pt is upset about the problems with his MH and hopes it gets cleared up soon. States he has tried to fix it, but he has been unable. He is appreciative of the help from Financial services. CM and nursing staff have noted patient ambulating to bathroom independently. Pt continues to state he cannot go home, as he cannot navigate the 10 stairs into his basement apartment. CM will follow for safe discharge plan.
[2024-10-09] VITALS (7 sets, daily range): BP systolic 97–126; BP diastolic 40–79; PULSE 76–90; RESP 16–18; TEMP 36.5–37.2; O2SAT 95–99
[2024-10-09] MEDS: oxyCODONE HCl Immed Release 5 MG TABLET 10 MG PO ×4 (03:46→22:12)
--- NOTE | 2024-10-09 07:18 | PC.NURSE ---
Assumed care of this pt, sleeping at this time, resp even unlaboured.
[2024-10-09] MEDS: dilTIAZem HCL CD 120 MG CAP.ER.DEG PO (09:48)
[2024-10-09] MEDS: Potassium Chloride ER 20 MEQ TAB.ER.PRT PO (09:51)
[2024-10-09] MEDS: Ammonium Lactate 12 % Lotion 226 GM BOTTLE 1 APPL TOPICAL (09:52)
[2024-10-09 12:32] LABS: MANUAL DIFF FLAG NO
[2024-10-09 12:33] LABS: Hematocrit 42.3 % (42.0-52.0); Hemoglobin 13.5 g/dl (14.0-18.0); Imm Gran Abs Auto 0.03 X10*3/uL (0.00-0.03); Imm Gran Pct Auto 0.3 % (0.0-0.4); Lymphocytes Absolute Auto 0.9 X10*3/uL (1.2-4.9); Mean Corpuscular HGB Conc 31.9 g/dl (31.0-36.0); Mean Corpuscular Hemoglobin 28.3 pg (27.0-33.0); Mean Corpuscular Volume 88.7 fL (80.0-98.0); NRBC Abs Auto 0.000 X10*3/uL (0.0-0.012); NRBC Pct Auto 0.0 /100WBC (0.0-0.2); Platelet Count 214 X10*3/uL (160-400); Red Blood Count 4.77 X10*6/uL (4.60-5.80); White Blood Count 9.0 X10*3/uL (4.8-10.8)
[2024-10-09 13:00] LABS: Anion Gap 12 (12-20); Blood Urea Nitrogen 18 mg/dL (9-16); Calcium 8.9 mg/dL (8.4-10.2); Carbon Dioxide 31 mmol/L (22-29); Chloride 100 mmol/L (96-108); Creatinine Clr Calc Pharmacy 108.9; Estimated Glomerular Filt Rate > 60; Potassium 4.1 mmol/L (3.3-5.1); Sodium 139 mmol/L (135-145)
--- NOTE | 2024-10-09 15:40 | MHC.EDTECH ---
pt ambulated around the entire unit unassisted. pt also used bathroom independently before returning to his room.
[2024-10-10] MEDS: oxyCODONE HCl Immed Release 5 MG TABLET 10 MG PO ×4 (04:24→23:26)
[2024-10-10 06:27] VITALS: BP 128/83; PULSE 84; RESP 16; TEMP 36.7; O2SAT 97
--- NOTE | 2024-10-10 08:02 | MHC.EDTECH ---
Patient offered to be given a shower in pod but patient refused saying he would wash up in the bathroom
[2024-10-10 08:19] VITALS: BP 128/83; PULSE 84
[2024-10-10] MEDS: dilTIAZem HCL CD 120 MG CAP.ER.DEG PO (08:19)
[2024-10-10 08:20] VITALS: BP 128/83
[2024-10-10] MEDS: Potassium Chloride ER 20 MEQ TAB.ER.PRT PO (08:21)
[2024-10-10] MEDS: Ammonium Lactate 12 % Lotion 226 GM BOTTLE 1 APPL TOPICAL (08:21)
--- NOTE | 2024-10-10 10:49 | MHC.EDTECH ---
Patient bed linen changed
[2024-10-10 14:14] VITALS: BP 118/69; PULSE 73; RESP 16; TEMP 36.6; O2SAT 96
--- NOTE | 2024-10-10 20:02 | PC.NURSE ---
This telegraphic typewriter operator assumed care of this Pt at 1900. Pt A&Ox3, ambulating independent with to steady gait.
[2024-10-10 20:23] VITALS: BP 123/85; PULSE 68; RESP 20; O2SAT 96
--- NOTE | 2024-10-11 03:22 | PC.NURSE ---
Pt awake, ambulating around ED, states walking makes leg pain better. Bilateral lower leg redness noted.
[2024-10-11] MEDS: oxyCODONE HCl Immed Release 5 MG TABLET 10 MG PO ×4 (05:19→22:19)
[2024-10-11 05:22] VITALS: BP 138/89; PULSE 94; RESP 18; O2SAT 95
[2024-10-11 10:25] VITALS: BP 122/81; PULSE 82; RESP 16; TEMP 36.4; O2SAT 95
[2024-10-11] MEDS: Potassium Chloride ER 20 MEQ TAB.ER.PRT PO (10:27)
[2024-10-11] MEDS: dilTIAZem HCL CD 120 MG CAP.ER.DEG PO (10:27)
[2024-10-11] MEDS: Ammonium Lactate 12 % Lotion 226 GM BOTTLE 1 APPL TOPICAL (10:31)
[2024-10-11] MEDS: Hydrocortisone 2.5 % Rectal Cr 30 GM TUBE 1 APPL PR (12:12)
--- NOTE | 2024-10-11 13:53 | MHC.CM.ED ---
Pt boarding in ED awaiting completion of financials for placement to SNF. Pt able to ambulate without assist and continues to complain of pain in his bilateral legs. Referrals have been made: [facility] is following. ED CM to follow
[2024-10-11 14:07] VITALS: BP 128/80; PULSE 81; RESP 16; TEMP 36.8; O2SAT 96
[2024-10-11 19:10] VITALS: BP 130/79; PULSE 81; RESP 18; TEMP 36.4; O2SAT 97
[2024-10-11 20:23] VITALS: BP 130/82
--- NOTE | 2024-10-11 20:25 | PC.NURSE ---
pt medicated per mar, tolerated whole well with water. vss
--- NOTE | 2024-10-12 04:44 | PC.NURSE ---
pt requesting oxycodone and Tylenol. Provider advised of new oxycodone order needed. Pt advised awaiting new orders.
[2024-10-12] MEDS: oxyCODONE HCl Immed Release 5 MG TABLET 10 MG PO ×4 (05:13→21:43)
--- NOTE | 2024-10-12 05:32 | PC.NURSE ---
pt medicated per MAR
[2024-10-12 05:51] VITALS: BP 130/67; PULSE 88; RESP 16; TEMP 36.6; O2SAT 95
--- NOTE | 2024-10-12 07:46 | PC.NURSE ---
Accepted care of pt to Overflow room. Pt A&O X4 ambulating in room independently. Pt states he is Awaiting his [employer] bkfst. NAD No complaints at this time.
--- NOTE | 2024-10-12 09:02 | PC.NURSE ---
Pt requestingall meds as scheduled athome. 4a, 10am 4pm etc. Including oxy. Provider aware and new order received for scheduled oxy and OK to give at 10 am today - provider aware pt had at 515am today. Pt requesting toget back onregular schedule for meds.
--- NOTE | 2024-10-12 09:51 | MHC.CM.ED ---
Patient remains in ER overflow. Waiting for [facility] to be active [facility] Madhuri from [facility] Financial Counselors have been working with patient. 1 notice of bank account being closed received. Waiting for 1 from [employer]. He will be mailed to the patient's home. Patient's landlord will bring it in. [facility] still requesting d/c form from [facility]. T/W spoke with [facility] to obtain form. Continue to monitor for d/c needs.
[2024-10-12] MEDS: Potassium Chloride ER 20 MEQ TAB.ER.PRT PO (10:01)
[2024-10-12] MEDS: dilTIAZem HCL CD 120 MG CAP.ER.DEG PO (10:02)
[2024-10-12] MEDS: Ammonium Lactate 12 % Lotion 226 GM BOTTLE 1 APPL TOPICAL (10:07)
[2024-10-12 14:00] VITALS: BP 123/86; PULSE 84; RESP 18; TEMP 36.8; O2SAT 97
[2024-10-12 20:29] VITALS: BP 112/86; PULSE 97; RESP 18; TEMP 36.6; O2SAT 96
[2024-10-12 22:58] VITALS: BP 136/67; PULSE 82; RESP 16; TEMP 36.7; O2SAT 95
[2024-10-13] VITALS (8 sets, daily range): BP systolic 113–136; BP diastolic 70–88; PULSE 56–101; RESP 16–20; TEMP 36.5–37.1; O2SAT 95–97
[2024-10-13] MEDS: oxyCODONE HCl Immed Release 5 MG TABLET 10 MG PO ×4 (03:54→22:11)
--- NOTE | 2024-10-13 05:45 | PC.NURSE ---
pt is alert and oriented and independent in room. continent of both urine and stool. states last BM 10/12. accepted all pills, tolerated whole with water. makes needs known. belongings and call ortiz in reach. plan of care ongoing
[2024-10-13] MEDS: Potassium Chloride ER 20 MEQ TAB.ER.PRT PO (09:41)
[2024-10-13] MEDS: Ammonium Lactate 12 % Lotion 226 GM BOTTLE 1 APPL TOPICAL (11:28)
--- NOTE | 2024-10-13 15:26 | MHC.EDTECH ---
Pt ambulating to bathroom independently, no needs stated at this time
[2024-10-14] MEDS: oxyCODONE HCl Immed Release 5 MG TABLET 10 MG PO ×4 (04:03→22:02)
[2024-10-14 06:00] VITALS: BP 133/85; PULSE 85; RESP 16; TEMP 36.8; O2SAT 94
--- NOTE | 2024-10-14 07:49 | MHC.EDTECH ---
pt refusing breakfast tray.
--- NOTE | 2024-10-14 09:21 | PC.NURSE ---
pt refusing his meds at this time, stated he might take them later
[2024-10-14] MEDS: Ammonium Lactate 12 % Lotion 226 GM BOTTLE 1 APPL TOPICAL (09:49)
[2024-10-14] MEDS: Potassium Chloride ER 20 MEQ TAB.ER.PRT PO (09:49)
[2024-10-14] MEDS: dilTIAZem HCL CD 120 MG CAP.ER.DEG PO (09:49)
--- NOTE | 2024-10-14 11:12 | MHC.EDTECH ---
patient walked toand from bathroom. Patient became agitated when asked to take a shower, States he took bed bath and his sheets dont need to be changed.
--- NOTE | 2024-10-14 13:01 | MHC.EDTECH ---
patient ambulated to and from bathroom with no apparent distress. also ambulated to desk to get another cup of coffee
--- NOTE | 2024-10-14 13:47 | MHC.EDTECH ---
patient ambulated to the bathroom, took a partial shower (bed bath ?) ambulated back to room no apparent signs of distress. Patient currently watching TV and talking on phone.
[2024-10-14 14:30] VITALS: BP 126/76; PULSE 74; RESP 18; TEMP 36.9; O2SAT 94
--- NOTE | 2024-10-14 16:30 | MHC.EDTECH ---
Patient refused shower but total bed changed and patient changed shorts
--- NOTE | 2024-10-14 16:50 | MHC.EDTECH ---
Dinner tray given to patient
[2024-10-14 18:47] VITALS: BP 116/81; PULSE 97; RESP 16; TEMP 36.6; O2SAT 96
[2024-10-14 20:07] VITALS: BP 113/68
[2024-10-14 22:00] VITALS: BP 140/85; PULSE 110; RESP 18; TEMP 36.8; O2SAT 93
[2024-10-15] MEDS: oxyCODONE HCl Immed Release 5 MG TABLET 10 MG PO ×3 (04:08→15:45)
[2024-10-15 06:00] VITALS: BP 106/57; PULSE 89; RESP 18; TEMP 37.2; O2SAT 95
[2024-10-15 08:27] VITALS: BP 127/77
[2024-10-15 08:32] VITALS: BP 127/77; PULSE 96
[2024-10-15] MEDS: dilTIAZem HCL CD 120 MG CAP.ER.DEG PO (08:32)
[2024-10-15 08:33] VITALS: BP 127/77
[2024-10-15] MEDS: Ammonium Lactate 12 % Lotion 226 GM BOTTLE 1 APPL TOPICAL (08:33)
[2024-10-15] MEDS: Potassium Chloride ER 20 MEQ TAB.ER.PRT PO (08:36)
--- NOTE | 2024-10-15 12:58 | PC.NURSE ---
Pt resting quietly in room; awaiting dispo; no complaints at this time
--- NOTE | 2024-10-15 13:57 | MHC.CM.ED ---
Patient remains in ER overflow. All necessary documents have been provided to financial counselors and submitted to [employer]. [facility] is still following. Continue to monitor for d/c needs.
[2024-10-15 14:00] VITALS: BP 124/82; PULSE 85; RESP 16; TEMP 36.6; O2SAT 96
--- NOTE | 2024-10-15 14:15 | MHC.CM.ED ---
Received notification [facility] can accept patient as [facility] pending. Harper CASTRO booked for 530pm. Med [facility] with chart. Patient, Sis RN and Jannette KAUFMAN aware. Valerei at [facility] made aware. Continue to monitor for d/c needs.
== END 2024-10-15 17:48 ==
PROVIDERS: Physician Assistant Medical; Emergency Provider Emergency Medicine
DX: I83.12 Varicose veins of left lower extremity with inflammation (principal); I83.11 Varicose veins of right lower extremity with inflammation; M79.605 Pain in left leg; M79.604 Pain in right leg; M79.18 Myalgia, other site; Z03.818 Encounter for observation for suspected exposure to other biological agents ruled out; E78.5 Hyperlipidemia, unspecified; I48.20 Chronic atrial fibrillation, unspecified; E66.9 Obesity, unspecified; Z68.41 Body mass index [BMI] 40.0-44.9, adult; Z86.711 Personal history of pulmonary embolism; Z79.01 Long term (current) use of anticoagulants
CPT/HCPCS: 0241U; 36415; 80048; 82550; 85025; 97162; 99285

== ENCOUNTER 2024-10-29 01:14 | Emergency (ER) | payer MEDICARE, SELFPAY ==
[2024-10-29 01:31] VITALS: BP 174/102; PULSE 98; O2SAT 99; BMI 43.0
--- OUTSIDE RECORDS SUMMARY | 2024-10-29 01:31 | XMS_ITS | Clinical Summary ---
Author Organization [facility] Address [address] [place] [address] Care Team Providers Care Academic Affairs Director Name Role Phone Maty Darnell MD Primary Care Provider [phone] Allergies No known active allergies Medications Medication [...] 1 - PCV) 2023 Influenza Vaccine (#1) 2024 04/05/2010 RSV Adult > 60+ Yrs or Pregn ant (1 - 1-dose 75+ series) 2033 Hepatitis B Vaccines Aged Out No long er eligible based on patient's age to complete this topic RSV Ped < 20 months Aged Out No longe r eligible based on patient's age to complete this topic Advance Directives For more information, please contact: [phone] Latest Code Status on File Code Status [...] in the following way:. . Care Teams Academic Affairs Director Relationship Specialty Start Date End Date Maty Darnell MD [address] [place] [address] [address] [place] [address] PCP - General Internal Medicine 10/24/19
--- OUTSIDE RECORDS SUMMARY | 2024-10-29 01:31 | XMS_ITS | Clinical Summary ---
Author Organization [facility] Address [address] [place] [id number] Care Team Providers Care Hat Designer Name Role Phone Bambi Machuca MD Primary Care Provider [phone] Social History Tobacco Use Types Packs/Day Years [...] 2007 Pneumococcal Vaccine: 50+ Ye ars (1 of 1 - PCV) 2008 Influenza Vaccine (#1) 2024 Hepatitis B Vaccine Aged Out No longe r eligible based on patient's age to complete this [place] [address] Medicare Medicaid [place] Care Teams Hat Designer Relationship Specialty Start Date End Date Bambi Machuca MD [address] [place], [place] PCP - General Internal Medicine 04/24/22
--- OUTSIDE RECORDS SUMMARY | 2024-10-29 01:31 | XMS_ITS | Clinical Summary ---
Author Organization [facility] Address [address] [place] [id number] Care Team Providers Care Transliterator Name Role Phone Provider, Marlee MCKEE Primary [...] 84 08/11/2010 3:49 PM EDT Temperature 36.9 C (98.5 F) 08/07/2010 11:40 AM EDT Respiratory Rate 16 08/11/2010 3:49 PM EDT [...] age to complete this topic Care Teams Transliterator Relationship Specialty Start Date End Date Marlee Lipscomb MD PCP - General 07/16/13
--- OUTSIDE RECORDS SUMMARY | 2024-10-29 01:31 | XMS_ITS | Clinical Summary ---
Author Organization [facility] Address [address] [place] [address] Care Team Providers Care Academic Support Specialist Name Role Phone Unavailable Primary Care [...]
--- OUTSIDE RECORDS SUMMARY | 2024-10-29 01:31 | XMS_ITS | Encounter Summary ---
Author Organization [employer] [facility] [facility] Address [address] [facility] 7t h Floor [place] [id number] Care Team Providers Care Tooth Cutter Spur Name Role Phone Rick Arcos MD Primary Care Prov ider Encounter Details Date Type Department Care Team (Latest Contact Info) Description 11/14/2021 Abstract [facility] CONVERSIONS Dental, Provider, DDS Social [...] Care Team (Late st Contact Info) Description 11/10/2024 2:45 PM EDT Office Visit [facility] MED & PEDS [address] [place] [address] Rick Arcos MD [address] [place] [address] documented as of this encounter Visit Diagnoses Not on filedocumented in this encounter Care Teams Tooth Cutter Spur Relationship Specialty Start Date End Date Rick Arcos MD [address] [place] [address] PCP - General Internal Medicine 05/28/24 Rodrick Arguello 06/09/24 documented as of this encounter
--- OUTSIDE RECORDS SUMMARY | 2024-10-29 01:31 | XMS_ITS | Encounter Summary ---
Author Organization [facility] Address [address] [place] [address] Care Team Providers Care Cab Worker Name Role Phone Maty Darnell MD Primary Care Provider [phone] Encounter Details Date Type Department Care Team (Late st Contact Info) Description 10/16/2024 Lab Requisition [facility] - Main Lab [address] [place] [address] Kandy Christina MD [address] [id number] Venous insufficiency (chronic) (peripheral) Social History Tobacco Use Types Packs/Day Years [...] Associated Diagnosis Comments COMPLETE BLOOD COUNT Routine 10/16/2024 5:58 AM EDT Venous insufficiency (chronic) (peripheral) COMPREHENSIVE METABOLIC PANEL Routine 10/16/2024 5:58 AM EDT Venous insufficiency (chronic) (peripheral) documented in this encounter Results * (ABNORMAL) Comprehensive metabolic panel (10/16/2024 5:58 AM EDT) Sodium 139 133 - 145 mmol/L LAB CHEMISTRY METHOD 10/16/2024 11:40 AM EDT [facility] Potassium 3.5 3.5 - 5.5 mmol/L LAB CHEMISTRY METHOD 10/16/2024 11:40 AM [facility] Chloride 103 96 - 110 mmol/L LAB CHEMISTRY METHOD 10/16/2024 11:40 AM [facility] CO2 29 21 - 32 mmol/L LAB CHEMISTRY METHOD 10/16/2024 11:40 AM [facility] Anion Gap 7 3 - 11 LAB CHEMISTRY METHOD 10/16/2024 11:40 AM [facility] Glucose 100 70 - 100 mg/dL LAB CHEMISTRY METHOD 10/16/2024 11:40 AM [facility] BUN 21 5 - 25 mg/dL LAB CHEMISTRY METHOD 10/16/2024 11:40 AM [facility] Creatinine 1.03 0.70 - 1.30 mg/dL LAB CHEMISTRY METHOD 10/16/2024 11:40 AM [facility] eGFR 80 >=60 mL/min/1. 73m2 LAB CHEMISTRY METHOD 10/16/2024 11:40 AM [facility] Comment:Calculation based on the Chronic Kidney Disease Epidemiology Collaboration (CKD-EPI) equation refit without adjustment for race. BUN/Creatinine Ratio 20.4 LAB CHEMISTRY METHOD 10/16/2024 11:40 AM [facility] Calcium 8.8 8.5 - 10.5 mg/dL LAB CHEMISTRY METHOD 10/16/2024 11:40 AM [facility] AST (SGOT) 28 10 - 42 unit/L LAB CHEMISTRY METHOD 10/16/2024 11:40 AM [facility] ALT (SGPT) 40 10 - 60 unit/L LAB CHEMISTRY METHOD 10/16/2024 11:40 AM [facility] Alkaline Phosphatase 100 42 - 121 unit/L LAB CHEMISTRY METHOD 10/16/2024 11:40 AM [facility] Total Protein 6.4 6.0 - 8.0 g/dL LAB CHEMISTRY METHOD 10/16/2024 11:[address] [facility] Albumin 3.0(L) 3.2 - 5.0 g/dL LAB CHEMISTRY METHOD 10/16/2024 11:[address] [facility] Total Bilirubin 0.4 0.0 - 1.4 mg/dL LAB CHEMISTRY METHOD 10/16/2024 11:[address] [facility] Blood Venous blood specimen / Unknown Venipuncture / Unknown 10/16/2024 5:58 AM EDT 10/16/2024 10:43 AM EDT us Kandy Christina MD LAB BLOOD ORDERABLES Fin al Result [facility] [address] [place] [address], * (ABNORMAL) Complete blood count (10/16/2024 5:58 AM EDT) WBC 9.8 4.8 - 10.8 K/mcL LAB HEMETOLOGY METHOD 10/16/2024 11:07 AM [facility] RBC 4.60 4.50 - 5.50 M/mcL LAB HEMETOLOGY METHOD 10/16/2024 11:07 AM [facility] Hemoglobin 12.8(L) 13.5 - 17.5 g/dL LAB HEMETOLOGY METHOD 10/16/2024 11:07 AM [facility] Hematocrit 43.3 42.0 - 54.0 % LAB HEMETOLOGY METHOD 10/16/2024 11:07 AM [facility] MCV 93.5 79.0 - 98.0 FL LAB HEMETOLOGY METHOD 10/16/2024 11:07 AM [facility] MCH 27.6 27.0 - 32.0 pcg LAB HEMETOLOGY METHOD 10/16/2024 11:[address] [facility] MCHC 29.6(L) 32.0 - 37.0 g/dL LAB HEMETOLOGY METHOD 10/16/2024 11:[address] [facility] RDW 17.0(H) 11.0 - 15.0 % LAB HEMETOLOGY METHOD 10/16/2024 11:[address] [facility] Platelets 266 130 - 400 K/mcL LAB HEMETOLOGY METHOD 10/16/2024 11:[address] [facility] MPV 10.7 7.0 - 11.0 FL LAB HEMETOLOGY METHOD 10/16/2024 11:[address] [facility] NRBC 0.0 <1.0 % LAB HEMETOLOGY METHOD 10/16/2024 11:[address] [facility] NRBC Absolute 0.00 <0.10 K/mcL LAB HEMETOLOGY METHOD 10/16/2024 11:[address] [facility] Blood Venous blood specimen / Unknown Venipuncture / Unknown 10/16/2024 5:58 AM EDT 10/16/2024 10:43 AM EDT us Kandy Christina MD LAB BLOOD ORDERABLES Fin al Result [facility] [address] [place] [address], documented in this encounter Visit Diagnoses Diagnosis Venous insufficiency (chronic) (peripheral) Unspecified venous (peripheral) insufficiency documented in this encounter Care Teams Cab Worker Relationship Specialty Start Date End Date Maty Darnell MD [address] [place] [address] Dr Maximo Arguello [place] PCP - General Internal Medicine 10/24/19 documented as of this encounter
--- OUTSIDE RECORDS SUMMARY | 2024-10-29 01:31 | XMS_ITS | Referral Summary ---
Author Organization [facility] Address [address] [place] [address] Care Team Providers Care Radar Systems Engineer Name Role Phone [facility] Primary Care Provider [phone] Allergies Active Allergy Reactions Criticality Noted Date [...] 2 days prior to admission. Was at [facility] prior to current presentation. Assessed [...] 2 days prior to admission. Was at [facility] prior to current presentation. Assessed [...] 2 days prior to admission. Was at [facility] prior to current presentation. Assessed [...] 2 days prior to admission. Was at [facility] prior to current presentation. Assessed [...] 2 days prior to admission. Was at [facility] prior to current presentation. Assessed by addiction psych this admission who noted patient not interested in MAT for AUD. He was monitored on CIWA which was discontinued on 02/24. - outpatient PCP and AA follow up Assessment & Plan (02/26/2024 6:00 PM EST): Patient reports drinking one quart of hard liquor daily, last drink 2 days prior to admission. Was at [facility] prior to current presentation. Assessed by addiction psych this admission who noted patient not interested in MAT for AUD. He was monitored on CIWA which was discontinued on 02/24. - outpatient PCP and AA follow up Assessment & Plan (02/25/2024 7:00 PM EST): Patient reports drinking one quart of hard liquor daily, last drink 2 days prior to admission. Was at [facility] prior to current presentation. Assessed [...] chronic venous stasis. He was hospitalized at [facility] back in July 2023 and at that [...] chronic venous stasis. He was hospitalized at [facility] back in July 2023 and at that [...] chronic venous stasis. He was hospitalized at [facility] back in July 2023 and at that [...] chronic venous stasis. He was hospitalized at [facility] back in July 2023 and at that [...] the leg swelling. He was hospitalized at [facility] back in July 2023 and at that [...] the leg swelling. He was hospitalized at [facility] back in July 2023 and at that [...] the leg swelling. He was hospitalized at [facility] back in July 2023 and at that [...] (03/15/2024 10:34 AM EST): Patient presented from [facility] for evaluation of right lower extremity swelling and redness. He was initiated on clindamycin at [facility] but without improvement so sent to [facility] for evaluation. L. Duplex negative for [...] will need to clear while inpatient to fpc vs other housing Assessment & Plan (03/14/2024 5:17 PM EST): Patient presented from [facility] for evaluation of right lower extremity swelling and redness. He was initiated on clindamycin at [facility] but without improvement so sent to [facility] for evaluation. L. Duplex negative for [...] will need to clear while inpatient to [facility] vs other housing Assessment & Plan (03/09/2024 7:28 PM EST): Was initiated on clindamycin at [facility] but without improvement so sent to [facility] for evaluation. L. Duplex negative for [...] PM EST): Was initiated on clindamycin at [facility] but without improvement so sent to [facility] for evaluation. L. Duplex negative for [...] Plan (03/07/2024 1:35 PM EST): Presents from [facility] for evaluation of right lower extremity cellulitis. Was initiated on clindamycin at [facility] but without improvement so sent to [facility] for evaluation. He was sent for [...] Plan (02/26/2024 6:00 PM EST): Presents from [facility] for evaluation of right lower extremity cellulitis. Was initiated on clindamycin at [facility] but without improvement so sent to [facility] for evaluation. He was sent for [...] Plan (02/25/2024 7:00 PM EST): Presents from [facility] for evaluation of right lower extremity cellulitis. Was initiated on clindamycin at [facility] but without improvement so sent to [facility] for evaluation. He was sent for [...] Date Smoking Tobacco: Never Smokeless Tobacco: Never [facility] Utilities Answer Date Recorded In the past [...] 87 03/16/2024 9:28 AM EST Temperature 36.4 C (97.5 F) 03/16/2024 9:28 AM EST Respiratory Rate 18 03/16/2024 9:28 AM EST [...] resistant organisms MRSA 02/22/2024 02/22/2024 Insurance MEDICARE [facility] [employer] Advance Directives Documents on File Type Date Recorded Patient Entertainment Production Professional Expl [facility] Health Care Proxy 03/11/2024 2:04 PM 03-11 * Full Code (Latest Code Status on File) Date Activated Date Inactivated Comments 02/22/2024 3:34 PM 03/16/2024 6:28 PM Care Teams Radar Systems Engineer Relationship Specialty Start Date End Date [address] [address] PCP - General 02/22/24
[2024-10-29 03:30] VITALS: BP 142/77; PULSE 95; RESP 16; TEMP 36.5; O2SAT 97
[2024-10-29 04:32] LABS: Hematocrit 42.8 % (42.0-52.0); Hemoglobin 13.6 g/dl (14.0-18.0); Imm Gran Abs Auto 0.05 X10*3/uL (0.00-0.03); Imm Gran Pct Auto 0.5 % (0.0-0.4); Lymphocytes Absolute Auto 0.7 X10*3/uL (1.2-4.9); MANUAL DIFF FLAG NO; Mean Corpuscular HGB Conc 31.8 g/dl (31.0-36.0); Mean Corpuscular Hemoglobin 28.3 pg (27.0-33.0); Mean Corpuscular Volume 89.2 fL (80.0-98.0); NRBC Abs Auto 0.000 X10*3/uL (0.0-0.012); NRBC Pct Auto 0.0 /100WBC (0.0-0.2); Platelet Count 236 X10*3/uL (160-400); Red Blood Count 4.80 X10*6/uL (4.60-5.80); White Blood Count 9.1 X10*3/uL (4.8-10.8)
--- NOTE | 2024-10-29 04:44 | PC.NURSE ---
ambulated twice to bathroom steadily without assist
[2024-10-29 04:47] LABS: Alanine Aminotransferase 36 U/L (0-40); Albumin Level 3.8 g/dL (3.5-5.0); Alkaline Phosphatase 102 U/L (39-117); Anion Gap 15 (12-20); Aspartate Amino Transferase 43 U/L (5-37); Blood Urea Nitrogen 13 mg/dL (9-16); Calcium 9.0 mg/dL (8.4-10.2); Carbon Dioxide 25 mmol/L (22-29); Chloride 103 mmol/L (96-108); Creatinine Clr Calc Pharmacy 118.7; Estimated Glomerular Filt Rate > 60; Potassium 3.9 mmol/L (3.3-5.1); Sodium 139 mmol/L (135-145); Total Protein 7.3 g/dL (6.5-8.0)
[2024-10-29 04:52] LABS: B Type Natriuretic Peptide 67 pg/mL (<100)
[2024-10-29] MEDS: oxyCODONE HCl Immed Release 5 MG TABLET 10 MG PO (05:12)
[2024-10-29 06:04] VITALS: BP 119/61; PULSE 85; TEMP 36.9; O2SAT 97
--- NOTE | 2024-10-29 06:41 | ED.SKABFB ---
HPI - Skin/Abscess/Foreign Bdy General Chief complaint: Skin/Abscess/Foreign Body Stated complaint: Right leg infection Time Seen by Provider: 10/29/24 06:40 Source: patient and EMS Mode of arrival: ambulatory Limitations: no limitations History of Present Illness ED Provider: Dr. Kristen Choi HPI narrative: Patient comes in the emergency room complaining of lower extremity discoloration and redness. Patient states that he was recently treated with p.o. antibiotics. Patient denies fever chills Related Data Home Medications ?Medication ?Instructions ?Recorded ?Confirmed acetaminophen 325 mg tablet 325 mg PO QID PRN Pain 06/19/24 10/05/24 allopurinol 100 mg tablet 100 mg PO DAILY 06/19/24 10/05/24 apixaban 2.5 mg tablet (Eliquis) 2.5 mg PO BID 06/19/24 10/05/24 atorvastatin 40 mg tablet 40 mg PO BEDTIME 06/19/24 10/05/24 digoxin 250 mcg (0.25 mg) tablet 250 mcg PO DAILY 06/19/24 10/05/24 diltiazem HCl 120 mg 120 mg PO DAILY 06/19/24 10/05/24 capsule,extended release 24 hr tamsulosin 0.4 mg capsule 0.4 mg PO DAILY 06/19/24 10/05/24 vilazodone 20 mg tablet 20 mg PO DAILY 06/19/24 10/05/24 duloxetine 30 mg capsule,delayed 30 mg PO BID 09/09/24 10/05/24 release penicillin V potassium 250 mg 250 mg PO BID 09/09/24 10/05/24 tablet potassium chloride 20 mEq 20 meq PO DAILY 09/09/24 10/05/24 tablet,extended release furosemide 80 mg tablet 80 mg PO BID 09/30/24 10/05/24 gabapentin 800 mg tablet 800 mg PO TID 09/30/24 10/05/24 spironolactone 50 mg tablet 50 mg PO DAILY 09/30/24 10/05/24 oxycodone 5 mg tablet 5 mg PO Q6H PRN Pain 10/05/24 10/05/24 Previous Rx's ?Medication ?Instructions ?Recorded ammonium lactate 12 % lotion 1 appl topical DAILY #225 grams 09/30/24 (AmLactin) doxycycline hyclate 100 mg capsule 100 mg PO BID 7 days #14 caps 09/30/24 zolpidem 10 mg tablet 10 mg PO BEDTIME PRN Sleep #30 tabs 09/30/24 oxycodone 10 mg tablet 10 mg PO QID pain #12 tabs 10/15/24 cephalexin 500 mg capsule 500 mg PO Q12H #14 caps 10/29/24 oxycodone 5 mg tablet 5 mg PO BID PRN pain #8 tabs 10/29/24 Allergies Allergy/AdvReac Type Severity Reaction Status Date / Time No Known Allergies Allergy Verified 10/29/24 01:32 Review of Systems Review of Systems: Constitutional : No Weight loss, No Fever, No Chills, No Night Sweats, No Fatigue, No Malaise ENT/Mouth : No Hearing loss, No Ear Pain, No Nasal Congestion, No Sinus Pain, No Hoarseness, No sore throat, No Rhinorrhea, No Swallowing Difficulty Eyes: No Eye Pain, No Swelling, No Redness, No Foreign Body, No Discharge, No Vision Changes Cardiovascular : No Chest Pain, No SOB, No Dyspnea on Exertion, No Orthopnea, No Edema, No Palpitations Respiratory : No Cough, No Sputum, No Wheezing, No Smoke Exposure, No Dyspnea Gastrointestinal : No Nausea, No Vomiting, No Diarrhea, No Constipation, No abdominal Pain, No Hematochezia, No Melena Genitourinary : no irregular bleeding, No Dysuria, No Urinary Frequency, No Hematuria, No Urinary Incontinence, No Urgency, No Flank Pain, No Urinary Flow Changes, No Hesitancy Musculoskeletal : No joint pain, No Myalgias, No Joint Swelling Skin : Patient complaining of skin erythema Neuro : No Weakness, No Numbness, No Paresthesias, No Loss of Consciousness, No Dizziness, No Headache Psych : No Anxiety/Panic, No Depression, No SI/HI/AH/VH, No Social Issues, Heme/Lymph: No Bruising, No Bleeding,No Lymphadenopathy Endocrine : No Polyuria, No Polydipsia, No Temperature Intolerance [facility] Past Medical History Medical History Morbid obesity Atrial fibrillation with RVR Chest pain Atrial fibrillation with RVR Sciatica ARIAN (acute kidney injury) Atrial fibrillation with RVR Alcohol withdrawal delirium Oral thrush Metabolic acidosis with increased anion gap and accumulation of organic acids Alcohol withdrawal Heart failure with left ventricular ejection fraction greater than or equal to 50 percent Incarcerated incisional hernia Atrial fibrillation with RVR Alcohol dependence Alcohol intoxication Thoracic aortic aneurysm Chronic atrial fibrillation Toenail deformity Dyslipidemia Anemia History of alcohol abuse Morbid obesity Insomnia Depression Pulmonary embolism Obesity Surgical History History of incisional hernia repair S/P cholecystectomy History of inguinal hernia repair Hx of gastric bypass Family History Family History Mother No problems noted. Father No problems noted. Family/Other Substance use disorder Social History Social History Household Members: None Household Members Other:: lives with mother Housing: Apartment Do you presently have visiting nurse or other home services: No Unable to assess alcohol history related to: Unable to respond Alcohol intake: former Year quit: 2019 Comment: pt refusing alarms Patient Tobacco Use Status: Never used Tobacco Smoked in Last 30 Days: No e-Cigarette/Vaping Use: Never Used Second Hand Smoke Exposure: No Use of substances other than those prescribed or required for medical reasons: No Substance Use Type: Other Advance Directives: Yes Advance Directives on File: Yes Advance Directives Date on File: 03/13/21 Do you have a plan to hurt others: No Plan service: No Current occupational status: retired Cognitive needs: No Hearing needs: No Vision needs: Yes (Glasses) Physical Exam Exam: Exam: Appearance: Alert. Oriented X3. No acute distress. Well-appearing Eyes: Pupils equal, round and reactive to light. ENT: Pharynx normal. Neck: Normal inspection. Neck supple. No lymph nodes noted. No crepitus CVS: Normal heart rate and rhythm. Pulses normal. Normal S1 and S2 Respiratory: No respiratory distress. Breath sounds normal. No Wheezing. No rales Abdomen: Soft and nontender. No rigidity. No distention. Skin: Skin warm and dry. Normal skin color. Normal skin turgor. Extremities: No lower extremity edema. No Lacerations. No Rash, patient's lower extremities, patient has chronic venous stasis, very slight erythema Neuro: Oriented X 3. No motor deficit. No sensory deficit. Moving all extremities. No slurred speech. CN 2 through 12 grossly intact Psych: calm, cooperative, normal affect Vital Signs: Vital Signs: Last Vital Signs Temp 98.4 F 10/29/24 06:04 Pulse 85 10/29/24 06:04 Resp 16 10/29/24 03:30 BP 119/61 10/29/24 06:04 Pulse Ox 97 10/29/24 06:04 O2 Del Method Room Air 10/29/24 06:04 BMI result Body Mass Index 43.0 Medications Administered Discontinued Medications Generic Name Dose Route Start Last Admin Trade Name Freq PRN Reason Stop Dose Admin Oxycodone HCl 10 mg 10/29/24 05:08 10/29/24 05:12 Oxycodone Hcl Immed Release 5 Mg Tablet PO 10/29/24 05:09 10 mg ONCE ONE Administration Medical Decision Making Medical Decision Making [facility] Narrative: My interpretation of labs: No significant abnormality in patient's hematology, white blood cell count is normal. Chemistry within normal limits Patient was given a dose of cephalexin and patient is requesting more oxycodone for home. Differential Diagnosis Differential Diagnoses: The differential diagnosis associated with the presentation includes (Chronic venous stasis, cellulitis) Lab Data [facility] Lab Attestation statement: I reviewed the patient's lab results. 10/29/24 04:28 10/29/24 04:28 Labs: Lab Results 10/29/24 Range/Units 04:28 WBC 9.1 (4.8-10.8) X10*3/uL RBC 4.80 (4.60-5.80) X10*6/uL Hgb 13.6 L (14.0-18.0) g/dl Hct 42.8 (42.0-52.0) % MCV 89.2 (80.0-98.0) fL MCH 28.3 (27.0-33.0) pg MCHC 31.8 (31.0-36.0) g/dl RDW 16.7 H (11.0-16.0) % Plt Count 236 (160-400) X10*3/uL MPV 10.3 (9.4-12.4) fL Immature Gran % (Auto) 0.5 H (0.0-0.4) % Neut % (Auto) 83.8 H (45-73) % Lymph % (Auto) 8.1 L (20-40) % [place] % (Auto) 6.3 (2-11) % Eos % (Auto) 0.4 (0-4) % Baso % (Auto) 0.9 (0-2) % Lymph # (Auto) 0.7 L (1.2-4.9) X10*3/uL [place] # (Auto) 0.6 (0.1-1.2) X10*3/uL Eos # (Auto) 0.0 (0.0-0.4) X10*3/uL Baso # (Auto) 0.1 (0.0-0.2) X10*3/uL Abs Immat Gran (auto) 0.05 H (0.00-0.03) X10*3/uL Absolute Neuts (auto) 7.7 (2.0-8.3) x10*3/uL Absolute Nucleated RBC 0.000 (0.0-0.012) X10*3/uL Nucleated RBC % (auto) 0.0 (0.0-0.2) /100WBC Sodium 139 (135-145) mmol/L Potassium 3.9 (3.3-5.1) mmol/L Chloride 103 (96-108) mmol/L Carbon Dioxide 25 (22-29) mmol/L Anion Gap 15 (12-20) BUN 13 (9-16) mg/dL Creatinine 0.85 (0.5-1.4) mg/dL Estim Creat Clear Calc 118.7 Estimated GFR > 60 Random Glucose 97 (60-115) mg/dL Calcium 9.0 (8.4-10.2) mg/dL Total Bilirubin 0.7 (0.0-1.0) mg/dL AST 43 H (5-37) U/L ALT 36 (0-40) U/L Alkaline Phosphatase 102 (39-117) U/L B-Natriuretic Peptide 67 (<100) pg/mL Total Protein 7.3 (6.5-8.0) g/dL Albumin 3.8 (3.5-5.0) g/dL Discharge Plan Discharge Clinical Impression: Venous stasis dermatitis of both lower extremities, Cellulitis Patient Disposition: Home, Self-Care Instructions: Cellulitis (ED), Venous Insufficiency (DC) Additional Instructions: Please follow-up with your primary care physician tomorrow. If you have any worsening or new symptoms, please return to the emergency room or call 911 Prescriptions: New cephalexin 500 mg capsule 500 mg PO Q12H Qty: 14 0RF oxycodone 5 mg tablet 5 mg PO BID PRN (Reason: pain) Qty: 8 0RF Rx Instructions: Partial Fill upon patient request. No Action oxycodone 5 mg Tablet 5 mg PO Q6H PRN (Reason: Pain) oxycodone 10 mg tablet 10 mg PO QID Qty: 12 0RF Rx Instructions: Partial Fill upon patient request. diltiazem HCl 120 mg Capsule,Extended Release 24hr 120 mg PO DAILY atorvastatin 40 mg Tablet 40 mg PO BEDTIME acetaminophen 325 mg Tablet 325 mg PO QID PRN (Reason: Pain) allopurinol 100 mg Tablet 100 mg PO DAILY digoxin 250 mcg (0.25 mg) Tablet 250 mcg PO DAILY tamsulosin 0.4 mg Capsule 0.4 mg PO DAILY vilazodone 20 mg Tablet 20 mg PO DAILY Rx Instructions: must administer with a meal/food Eliquis 2.5 mg Tablet 2.5 mg PO BID penicillin V potassium 250 mg tablet 250 mg PO BID Rx Instructions: for 30 days duloxetine 30 mg capsule,delayed release(DR/EC) 30 mg PO BID potassium chloride 20 mEq Tablet Extended Release 20 meq PO DAILY furosemide 80 mg tablet 80 mg PO BID gabapentin 800 mg tablet 800 mg PO TID spironolactone 50 mg tablet 50 mg PO DAILY ammonium lactate [AmLactin] 12 % lotion 1 appl topical DAILY Qty: 225 1RF doxycycline hyclate 100 mg capsule 100 mg PO BID 7 Days Qty: 14 0RF zolpidem 10 mg tablet 10 mg PO BEDTIME PRN (Reason: Sleep) Qty: 30 0RF Print Language: Paraguayan
[2024-10-29 07:00] VITALS: BP 119/61; PULSE 85; RESP 16; TEMP 36.9; O2SAT 97
[2024-10-29 07:51] VITALS: BP 119/61; PULSE 85; RESP 16; TEMP 36.9; O2SAT 97
== END 2024-10-29 07:54 | disposition home or self-care (01) ==
PROVIDERS: Physician Assistant; Emergency Provider Emergency Medicine
DX: I87.2 Venous insufficiency (chronic) (peripheral) (principal); L03.116 Cellulitis of left lower limb; L03.115 Cellulitis of right lower limb
CPT/HCPCS: 36415; 80053; 83880; 85025; 99283; 99284

== ENCOUNTER 2024-11-20 06:28 | Emergency (ER) | payer MEDICARE, SELFPAY ==
[2024-11-20 06:41] VITALS: BP 147/79; PULSE 90; RESP 20; TEMP 36.6; O2SAT 96; BMI 41.1
--- OUTSIDE RECORDS SUMMARY | 2024-11-20 06:51 | XMS_ITS | Encounter Summary ---
Author Organization [facility] Address [address] [place] [address] Care Team Providers Care Equipment Records Supervisor Name Role Phone Maty Darnell MD Primary Care Provider [phone] Encounter Details Date Type Department Care Team (Late st Contact Info) Description 10/16/2024 Lab Requisition [facility] - Main Lab [address] [place] [address] Kandy Christina MD [address] [phone] Venous insufficiency (chronic) (peripheral) Social History Tobacco [...] LAB CHEMISTRY METHOD 10/16/2024 11:40 AM EDT [facility] Potassium 3.5 3.5 - 5.5 mmol/L LAB CHEMISTRY METHOD 10/16/2024 11:40 AM [facility] Chloride 103 96 - 110 mmol/L LAB CHEMISTRY METHOD 10/16/2024 11:40 AM [facility] CO2 29 21 - 32 mmol/L LAB CHEMISTRY METHOD 10/16/2024 11:40 AM [facility] Anion Gap 7 3 - 11 LAB CHEMISTRY METHOD 10/16/2024 11:40 AM [facility] Glucose 100 70 - 100 mg/dL LAB CHEMISTRY METHOD 10/16/2024 11:40 AM [facility] BUN 21 5 - 25 mg/dL LAB CHEMISTRY METHOD 10/16/2024 11:40 AM [facility] Creatinine 1.03 0.70 - 1.30 mg/dL LAB CHEMISTRY METHOD 10/16/2024 11:40 AM [facility] eGFR 80 >=60 mL/min/1. 73m2 LAB CHEMISTRY METHOD 10/16/2024 11:40 AM [facility] Comment:Calculation based on the Chronic Kidney Disease Epidemiology Collaboration (CKD-EPI) equation refit without adjustment for race. BUN/Creatinine Ratio 20.4 LAB CHEMISTRY METHOD 10/16/2024 11:40 AM [facility] Calcium 8.8 8.5 - 10.5 mg/dL LAB CHEMISTRY METHOD 10/16/2024 11:40 AM [facility] AST (SGOT) 28 10 - 42 unit/L LAB CHEMISTRY METHOD 10/16/2024 11:40 AM [facility] ALT (SGPT) 40 10 - 60 unit/L LAB CHEMISTRY METHOD 10/16/2024 11:40 AM [facility] Alkaline Phosphatase 100 42 - 121 unit/L LAB CHEMISTRY METHOD 10/16/2024 11:40 AM [facility] Total Protein 6.4 6.0 - 8.0 g/dL LAB CHEMISTRY METHOD 10/16/2024 11:40 AM EDT [facility] Albumin 3.0(L) 3.2 - 5.0 g/dL LAB CHEMISTRY METHOD 10/16/2024 11:40 AM EDT [facility] Total Bilirubin 0.4 0.0 - 1.4 mg/dL LAB CHEMISTRY METHOD 10/16/2024 11:40 AM EDT [facility] Blood Venous blood specimen / Unknown Venipuncture / Unknown 10/16/2024 5:58 AM EDT 10/16/2024 10:43 AM EDT us Kandy Christina MD LAB BLOOD ORDERABLES Fin al Result [facility] [address] [place] [address], * (ABNORMAL) Complete blood count (10/16/2024 5:58 AM EDT) WBC 9.8 4.8 - 10.8 K/mcL LAB HEMETOLOGY METHOD 10/16/2024 11:07 AM [facility] RBC 4.60 4.50 - 5.50 M/mcL LAB HEMETOLOGY METHOD 10/16/2024 11:07 AM [facility] Hemoglobin 12.8(L) 13.5 - 17.5 g/dL LAB HEMETOLOGY METHOD 10/16/2024 11:07 AM [facility] Hematocrit 43.3 42.0 - 54.0 % LAB HEMETOLOGY METHOD 10/16/2024 11:07 AM [facility] MCV 93.5 79.0 - 98.0 FL LAB HEMETOLOGY METHOD 10/16/2024 11:07 AM [facility] MCH 27.6 27.0 - 32.0 pcg LAB HEMETOLOGY METHOD 10/16/2024 11:07 AM EDT [facility] MCHC 29.6(L) 32.0 - 37.0 g/dL LAB HEMETOLOGY METHOD 10/16/2024 11:07 AM EDT [facility] RDW 17.0(H) 11.0 - 15.0 % LAB HEMETOLOGY METHOD 10/16/2024 11:07 AM EDT [facility] Platelets 266 130 - 400 K/mcL LAB HEMETOLOGY METHOD 10/16/2024 11:07 AM EDT [facility] MPV 10.7 7.0 - 11.0 FL LAB HEMETOLOGY METHOD 10/16/2024 11:07 AM EDT [facility] NRBC 0.0 <1.0 % LAB HEMETOLOGY METHOD 10/16/2024 11:07 AM EDT [facility] NRBC Absolute 0.00 <0.10 K/mcL LAB HEMETOLOGY METHOD 10/16/2024 11:07 AM EDT [facility] Blood Venous blood specimen / Unknown Venipuncture / Unknown 10/16/2024 5:58 AM EDT 10/16/2024 10:43 AM EDT us Kandy Christina MD LAB BLOOD ORDERABLES Fin al Result [facility] [address] [place] [address], documented in this encounter Visit Diagnoses Diagnosis Venous insufficiency (chronic) (peripheral) Unspecified venous (peripheral) insufficiency documented in this encounter Care Teams Equipment Records Supervisor Relationship Specialty Start Date End Date Maty Darnell MD [address] [place] [address] Dr Maximo Arguello [place] PCP - General Internal Medicine 10/24/19 documented as of this encounter
--- OUTSIDE RECORDS SUMMARY | 2024-11-20 06:51 | XMS_ITS | Clinical Summary ---
Author Organization [facility] Address [address] [place] [id number] Care Team Providers Care Wheat Shipper Name Role Phone Unavailable Primary Care Provider [...]
--- OUTSIDE RECORDS SUMMARY | 2024-11-20 06:51 | XMS_ITS | Clinical Summary ---
Author Organization [facility] Facility Address [address] [address] Care Team Providers Care Channel Opener Name Role Phone Bambi Machuca MD Primary Care Provider [phone] Social History Tobacco Use Types Packs/Day Years [...] age to complete [place] [address] Medicare Medicaid [place] Medicare [place] Care Teams Channel Opener Relationship Specialty Start Date End Date Bambi Machuca MD [address] [place], [place] PCP - General Internal Medicine 04/24/22
--- OUTSIDE RECORDS SUMMARY | 2024-11-20 06:51 | XMS_ITS | Clinical Summary ---
Author Organization [facility] Address [address] [facility] [address] [place] [address] Phone Care Team Providers Care Adjunct Professor Of Voice Name Role Phone Pcp, Unknown Primary Care Provider Unavailabl e Allergies Active Allergy Reactions Criticality Noted Date Comments Codeine Unknown 03/19/2011 Opioids - Morphine Analogues Unknown 011 Medications No known medications Active Problems No known active problems Encounters Date Type Department Care Team Description 11/04/2024 6:53 AM EDT - 11/04/2024 11:59 PM EDT Hospital Encounter [facility] Laboratory [address] [place] [address] Cyrus Carnes MD Discharge Disposition: Home or Self Care 11/04/2024 Transcribe Orders [facility] Specimen Processing [address] [place] [address] Cyrus Carnes MD Congestive heart failure, unspecified HF chronicity, unspecified heart failure type (Primary Dx) from Last 3 Months Social History Tobacco Use Types Packs/Day Years Used Date Smoking Tobacco: Never Assessed Alcohol Use Standard Drinks/Week Comments Not Currently 0 (1 standard drink = 0.6 oz pur e alcohol) Education Answer Date Recorded Are you interested in more education? Not on adriel e 08/04/2022 Are you concerned about learning? Not on file 08/04/2022 No 08/04/2022 No 08/04/2022 Digital Access Answer Date Recorded No 09/02/2022 No 09/02/2022 No 09/02/2022 Reliable internet access at home? Not on file 09/02/2022 Device with a working camera? Not on file Sex and Gender Information Value Date Recorded Sex Assigned at Male 12/25/2021 12:27 AM EDT Legal Sex Male 11:42 AM EST Gender Identity Male 12/25/2021 12:27 AM EDT Sexual Orientation Choose not to disclose 2021 12:27 AM EDT Last Filed Vital Signs Vital Sign Reading Time Taken Comments Blood Pressure 126/85 12/25/2021 2:07 AM EDT Pulse 60 12/25/2021 2:07 AM EDT Temperature 36.6 C (97.9 F) 12/25/2021 2:07 AM EDT Respiratory Rate 16 12/25/2021 2:07 AM EDT Oxygen Saturation 96% 12/25/2021 2:07 AM EDT Inhaled Oxygen Concentration - - Weight 137 kg (302 lb) 12/25/2021 12:27 AM EDT Height 175.3 cm (5' 9 ) 12/25/2021 12:25 AM EDT Body Mass Index 44.6 12/25/2021 12:25 AM EDT Plan of Treatment Health Maintenance Due Date Last Done Comments LIPID PANEL 1958 DEPRESSION SCREENING 1970 SMOKING Hx and SMOKELESS TOBACCO SCREENING 1971 HEPATITIS C SCREENING 1976 COLOGUARD 2003 COLONOSCOPY 2003 FIT TEST 2003 SIGMOIDOSCOPY 2003 VIRTUAL COLONOSCOPY 2003 ZOSTER VACCINES (1 of 2) 2008 RSV VACCINE (1 - Risk 60-74 years 1-dose series) 2018 PNEUMOCOCCAL VACCINES (50+ years) (2 of 2 - PCV) 02/13/2019 02/13/2018, 09/27/2005 COLORECTAL CANCER SCREENING 05/25/2022 FOBT 05/25/2022 05/25/2021 COVID-19 VACCINE (4 - 2023-2 5 season) 2023 02/28/2021, 08/18/2020, 07/21/2020 Adult Td,Tdap Booster 07/11/2025 07/12/2015 SCREENING FOR DIABETES 11/05/2027 11/04/2024 HEPATITIS A VACCINES Aged Out No long er eligible based on patient's age to complete this topic HIB VACCINES Aged Out No longer eligi ble based on patient's age to complete this topic MENINGOCOCCAL VACCINES (ACWY) Aged Out No longer eligible based on patient's age to complete this topic MENINGOCOCCAL VACCINES (B) Aged Out N o longer eligible based on patient's age to complete this topic Medical Devices Not on file Procedures Procedure Name Priority Date/Time Associated Diagnosis Comments CBC AND DIFFERENTIAL Routine 11/04/2024 5:10 AM EDT Congestive heart failure, unspecified HF chronicity, unspecified heart failure type COMPREHENSIVE METABOLIC PANEL Routine 11/04/2024 5:10 AM EDT Congestive heart failure, unspecified HF chronicity, unspecified heart failure type FECAL OCCULT BLOOD, MULTIPLE Routine 05/25/2021 11:30 AM EST Anemia, unspecified type from Last 3 Months or Most Recently Relevant to Health Maintenance Results * (ABNORMAL) Comprehensive metabolic panel (11/04/2024 5:10 AM EDT) SODIUM 138 133 - 146 mmol/L [facility] POTASSIUM 3.9 3.3 - 5.1 mmol/L [facility] CHLORIDE 98 96 - 108 mmol/L [facility] CO2 28 21 - 35 mmol/L [facility] BUN 17 6 - 19 mg/dL [facility] CREATININE 0.90 0.5 - 1.5 mg/dL [facility] GLUCOSE 104(H) 70 - 99 mg/dL [facility] ALBUMIN 3.7(L) 3.9 - 4.8 g/dL [facility] TOTAL PROTEIN 6.7 6.5 - 8.0 g/dL [facility] CALCIUM 8.9 8.4 - 10.3 mg/dL [facility] ALKALINE PHOSPHATASE 96 39 - 117 U/L [facility] TOTAL BILIRUBIN 0.4 0.0 - 1.2 mg/dL [facility] AST 27 0 - 37 U/L [facility] ALT 29 0 - 40 U/L [facility] GLOBULIN 3.0 1 - 4.8 g/dL [facility] EGFR 94 >59 mL/min/1.7 3m2 [facility] Comment:Estimated glomerular filtration rate calculated using the CKD-EPI refit equation. ANION GAP 16 10 - 20 mmol/L [facility] Blood 11/04/2024 5:10 AM EDT 11/04/2024 6:57 AM EDT us Cyrus Carnes MD LAB BLOOD ORDERABLES Final Resul t [facility] [address] [place] [address] * (ABNORMAL) CBC and differential (11/04/2024 5:10 AM EDT) WBC 7.59 4.00 - 11.00 K/uL [facility] RBC 5.09 4.50 - 5.90 M/uL [facility] HGB 14.2 13.5 - 17.5 g/dL [facility] HCT 46.8 41.0 - 53.0 % [facility] PLT 234 150 - 450 K/uL [facility] MCV 91.9 80.0 - 100.0 fL [facility] MCH 27.9 27.0 - 31.0 pg [facility] MCHC 30.3(L) 32.0 - 36.0 g/dL [facility] RDW 16.5(H) 11.5 - 14.5 % [facility] MPV 11.1 8.4 - 12.0 fL [facility] NRBC 0.00 0.00 /100 WBCs [facility] ABSOLUTE NRBC 0.00 0.00 K/uL [facility] DIFF METHOD Auto [facility] NEUTS 77.6(H) 48.0 - 76.0 % [facility] LYMPHS 11.2(L) 18.0 - 41.0 % [facility] MONOS 7.4 4.0 - 11.0 % [facility] EOS 2.5 0.0 - 5.0 % [facility] BASOS 0.9 0.0 - 1.5 % [facility] Granulocytes, immature (%) 0.4 0.0 - 0.9 % [facility] ABSOLUTE NEUTS 5.89 1.92 - 7.60 K/uL [facility] ABSOLUTE LYMPHS 0.85 0.72 - 4.10 K/uL [facility] ABSOLUTE MONOS 0.56 0.16 - 1.10 K/uL [facility] ABSOLUTE EOS 0.19 0.00 - 0.50 K/uL [facility] ABSOLUTE BASOS 0.07 0.00 - 0.15 K/uL [facility] Granulocytes, immature 0.03 0.00 - 0.09 K/uL [facility] Blood 11/04/2024 5:10 AM EDT 11/04/2024 6:57 AM EDT us Cyrus Carnes MD LAB BLOOD ORDERABLES Final Resul t Performing Organization Address City/[facility]/ZIP Co de Phone Number [address] [address] * Fecal occult blood, multiple (05/25/2021 11:30 AM EST) FECAL OCC BLD 1 DATE ,722 [facility] Occult bld, stool, #1 Negative Negative [facility] Stool (Stool) 05/25/2021 11: 30 AM EST 05/25/2021 5:06 PM EST us Iesha WALDEN BODY FLUIDS AND STOOLS OR DERABLES Final Result Performing Organization Address [facility]/ZIP Co de Phone Number [address] [address] from Last 3 Months or Most Recently Relevant to Health Maintenance Insurance [facility] MEDICARE PART A & B [facility] B Member Subscriber Plan / Payer ( fective 2008-Present) Name:Bennie Potts Member ID:[id number] Relation to Subscriber:Self Name:Bennie Potts Subscriber ID:[id number] Payer ID:[id number] Group ID:Not on file Type:Medicare Address: [facility] [address] [place] [address] [facility] A & B Member Subscriber Plan / Payer (Ef fective 2008-Present) Name:Bennie Potts Member ID:[id number] Relation to Subscriber:Self Name:Bennie Potts Subscriber ID:[id number] Payer ID:[id number] Group ID:Not on file Type:Medicare Address: [place] [address] [facility] B Member Subscriber Plan / Payer ( fective 2008-Present) Name:PottsBennie Member ID:[id number] Relation to Subscriber:Self Name:PottsBennie Subscriber ID:[id number] Payer ID:[id number] Group ID:Not on file Type:Medicare Address: [place] [address] [facility] A & B [facility] MEDICARE PART A & B [facility] & B [facility] MEDICARE PART A & B [facility] MEDICARE PART A & B Advance Directives For more information, please contact: [phone] (9AM - 5PM [facility], Saturday-Saturday) Documents on File Type Date Recorded Patient Station Repairer Laila RUBIO 12/26/2021 12:42 PM Care Teams Adjunct Professor Of Voice Relationship Specialty Start Date End Date Pcp, Unknown PCP - General 05/01/13 Additional Source Comments The information contained in this document represents components of the legal health record. It is not the complete legal health record.[facility]
--- OUTSIDE RECORDS SUMMARY | 2024-11-20 06:51 | XMS_ITS | Clinical Summary ---
Author Organization [facility] Address [address] [place] [address] Care Team Providers Care Quickbooks Bookkeeper Name Role Phone Provider, Marlee MCKEE Primary [...] age to complete this topic Care Teams Quickbooks Bookkeeper Relationship Specialty Start Date End Date Marlee Lipscomb MD PCP - General 07/16/13
--- OUTSIDE RECORDS SUMMARY | 2024-11-20 06:51 | XMS_ITS | Clinical Summary ---
Author Organization [facility] Address [address] [place] [address] Care Team Providers Care Stock Saw Operator Name Role Phone [facility] Primary Care Provider [phone] Allergies Active Allergy Reactions Criticality Noted Date [...] 2 days prior to admission. Was at [facility] prior to current presentation. Assessed by addiction [...] 2 days prior to admission. Was at [facility] prior to current presentation. Assessed by addiction [...] 2 days prior to admission. Was at [facility] prior to current presentation. Assessed by addiction [...] 2 days prior to admission. Was at [facility] prior to current presentation. Assessed by addiction [...] 2 days prior to admission. Was at [facility] prior to current presentation. Assessed by addiction psych this admission who noted patient not interested in MAT for AUD. He was monitored on CIWA which was discontinued on 02/24. - outpatient PCP and AA follow up Assessment & Plan (02/26/2024 6:00 PM EST): Patient reports drinking one quart of hard liquor daily, last drink 2 days prior to admission. Was at [facility] prior to current presentation. Assessed by addiction psych this admission who noted patient not interested in MAT for AUD. He was monitored on CIWA which was discontinued on 02/24. - outpatient PCP and AA follow up Assessment & Plan (02/25/2024 7:00 PM EST): Patient reports drinking one quart of hard liquor daily, last drink 2 days prior to admission. Was at [facility] prior to current presentation. Assessed by addiction [...] chronic venous stasis. He was hospitalized at [facility] back in July 2023 and [...] chronic venous stasis. He was hospitalized at [facility] back in July 2023 and [...] chronic venous stasis. He was hospitalized at [facility] back in July 2023 and [...] chronic venous stasis. He was hospitalized at [facility] back in July 2023 and [...] the leg swelling. He was hospitalized at [facility] back in July 2023 and [...] the leg swelling. He was hospitalized at [facility] back in July 2023 and [...] the leg swelling. He was hospitalized at [facility] back in July 2023 and [...] (03/15/2024 10:34 AM EST): Patient presented from [facility] for evaluation of right lower extremity swelling and redness. He was initiated on clindamycin at [facility] but without improvement so sent to [facility] for evaluation. L. Duplex negative [...] (03/14/2024 5:17 PM EST): Patient presented from [facility] for evaluation of right lower extremity swelling and redness. He was initiated on clindamycin at [facility] but without improvement so sent to [facility] for evaluation. L. Duplex negative [...] PM EST): Was initiated on clindamycin at [facility] but without improvement so sent to [facility] for evaluation. L. Duplex negative [...] PM EST): Was initiated on clindamycin at [facility] but without improvement so sent to [facility] for evaluation. L. Duplex negative [...] Plan (03/07/2024 1:35 PM EST): Presents from [facility] for evaluation of right lower extremity cellulitis. Was initiated on clindamycin at [facility] but without improvement so sent to [facility] for evaluation. He was sent [...] Plan (02/26/2024 6:00 PM EST): Presents from [facility] for evaluation of right lower extremity cellulitis. Was initiated on clindamycin at [facility] but without improvement so sent to [facility] for evaluation. He was sent [...] Plan (02/25/2024 7:00 PM EST): Presents from [facility] for evaluation of right lower extremity cellulitis. Was initiated on clindamycin at [facility] but without improvement so sent to [facility] for evaluation. He was sent [...] Date Smoking Tobacco: Never Smokeless Tobacco: Never [facility] Utilities Answer Date Recorded In [...] of Health Annual Screening 04/08/2024 Influenza Vaccine (#1) 2024 04/05/2010 Hepatitis B Vaccines Aged Out No long er eligible based on patient's age to complete this topic Additional Health Concerns Infection Onset Date Last Indicated Multidrug resistant organisms MRSA 02/22/2024 02/22/2024 Insurance MEDICARE [facility] [employer] Advance Directives Documents on File Type Date Recorded Patient Lathe Operator Contact Lens Expl anation Health Care Proxy 03/11/2024 2:04 PM 03-11 * Full Code (Latest Code Status on File) Date Activated Date Inactivated Comments 02/22/2024 3:34 PM 03/16/2024 6:28 PM Care Teams Stock Saw Operator Relationship Specialty Start Date End Date [address] [address] PCP - General 02/22/24
--- OUTSIDE RECORDS SUMMARY | 2024-11-20 06:51 | XMS_ITS | Encounter Summary ---
Author Organization [employer] Address [address] [facility] [address] [place] [address] Care Team Providers Care Records Supervisor Name Role Phone Rick Arcos MD Primary Care Prov ider Encounter Details Date Type Department Care Team (Latest Contact Info) Description 11/14/2021 Abstract [facility] Dental, Provider, DDS Social History [...] on filedocumented in this encounter Care Teams Records Supervisor Relationship Specialty Start Date End Date Rick Arcos MD [address] [place] [address] PCP - General Internal Medicine 05/28/24 [address] 06/09/24 documented as of this encounter
--- OUTSIDE RECORDS SUMMARY | 2024-11-20 06:51 | XMS_ITS | Clinical Summary ---
Author Organization [facility] Address [address] [place] [address] Care Team Providers Care Material Planning Analyst Name Role Phone Maty Danrell MD Primary Care Provider [phone] Allergies No known active allergies Medications Medication [...] Advance Directives For more information, please contact: [phone] Latest Code Status on File Code Status [...] in the following way:. . Care Teams Material Planning Analyst Relationship Specialty Start Date End Date Maty Darnell MD [address] [place] [address] [address] [place] [address] PCP - General Internal Medicine 10/24/19
--- NOTE | 2024-11-20 07:39 | ED.GENADULT ---
HPI - General Adult General Chief complaint: Extremity Problem Stated complaint: cellulitis Time Seen by Provider: 11/20/24 07:01 Source: patient Mode of arrival: ambulatory Limitations: no limitations History of Present Illness ED Provider: HPI narrative: 64-year-old male is presenting with recurrent venous stasis dermatitis, stubbing his right great toe, initially went to [facility] in [place] came to [facility] because he waited at [facility] for 12 hours, recently was a short-term rehab, at the end of October of this year finished a course of antibiotics. No fevers or chills reported, he states he takes pain medications for neuropathy throughout the day and is not able to take care of himself. Related Data Home Medications ?Medication ?Instructions ?Recorded ?Confirmed acetaminophen 325 mg tablet 325 mg PO QID PRN Pain 06/19/24 11/20/24 allopurinol 100 mg tablet 100 mg PO DAILY 06/19/24 11/20/24 apixaban 2.5 mg tablet (Eliquis) 2.5 mg PO BID 06/19/24 11/20/24 atorvastatin 40 mg tablet 40 mg PO BEDTIME 06/19/24 11/20/24 digoxin 250 mcg (0.25 mg) tablet 250 mcg PO DAILY 06/19/24 11/20/24 diltiazem HCl 120 mg 120 mg PO DAILY 06/19/24 11/20/24 capsule,extended release 24 hr tamsulosin 0.4 mg capsule 0.4 mg PO DAILY 06/19/24 11/20/24 vilazodone 20 mg tablet 20 mg PO DAILY 06/19/24 11/20/24 duloxetine 30 mg capsule,delayed 30 mg PO BID 09/09/24 11/20/24 release potassium chloride 20 mEq 20 meq PO DAILY 09/09/24 11/20/24 tablet,extended release furosemide 80 mg tablet 80 mg PO BID 09/30/24 11/20/24 gabapentin 800 mg tablet 800 mg PO TID 09/30/24 11/20/24 spironolactone 50 mg tablet 50 mg PO DAILY 09/30/24 11/20/24 oxycodone 5 mg tablet 10 mg PO Q4H PRN Pain 10/05/24 11/20/24 hydrocortisone 2.5 % topical cream 1 appl UT DAILY PRN Hemorrhoids 11/20/24 11/20/24 with perineal applicator venlafaxine 37.5 mg 37.5 mg PO DAILY 11/20/24 11/20/24 tablet,extended release 24 hr Previous Rx's ?Medication ?Instructions ?Recorded zolpidem 10 mg tablet 10 mg PO BEDTIME PRN Sleep #30 tabs 09/30/24 Allergies Allergy/AdvReac Type Severity Reaction Status Date / Time No Known Allergies Allergy Verified 11/20/24 06:44 Review of Systems Constitutional: Constitutional: Reports as per [facility] Past Medical History Medical History Morbid obesity Atrial fibrillation with RVR Chest pain Atrial fibrillation with RVR Sciatica ARIAN (acute kidney injury) Atrial fibrillation with RVR Alcohol withdrawal delirium Oral thrush Metabolic acidosis with increased anion gap and accumulation of organic acids Alcohol withdrawal Heart failure with left ventricular ejection fraction greater than or equal to 50 percent Incarcerated incisional hernia Atrial fibrillation with RVR Alcohol dependence Alcohol intoxication Thoracic aortic aneurysm Chronic atrial fibrillation Toenail deformity Dyslipidemia Anemia History of alcohol abuse Morbid obesity Insomnia Depression Pulmonary embolism Obesity Surgical History History of incisional hernia repair S/P cholecystectomy History of inguinal hernia repair Hx of gastric bypass Family History Family History Mother No problems noted. Father No problems noted. Family/Other Substance use disorder Social History Social History Household Members: None Household Members Other:: lives with mother Housing: Apartment Do you presently have visiting nurse or other home services: No Unable to assess alcohol history related to: Unable to respond Alcohol intake: former Year quit: 2019 Comment: pt refusing alarms Patient Tobacco Use Status: Never used Tobacco e-Cigarette/Vaping Use: Never Used Second Hand Smoke Exposure: No Substance Use Type: Other Advance Directives: Yes Advance Directives on File: Yes Advance Directives Date on File: 03/13/21 service: No Current occupational status: retired Cognitive needs: No Hearing needs: No Vision needs: Yes (Glasses) Physical Exam ED Vital Signs: Vital Signs - 24 hr 11/20/24 06:41 11/20/24 08:00 11/20/24 10:00 Temperature 97.8 F 98.2 F 97.2 F Pulse Rate 90 100 86 Respiratory Rate 20 19 18 Blood Pressure 147/79 H 136/70 127/70 Pulse Oximetry 96 99 96 Oxygen Delivery Method Room Air Room Air Room Air 11/20/24 14:00 Temperature 97.9 F Pulse Rate 99 Respiratory Rate 17 Blood Pressure 131/80 Pulse Oximetry 96 Oxygen Delivery Method Room Air BMI result Body Mass Index 41.1 Const Other: Gen: ?Appears older than stated age HEENT: PERRLA, EOMI, MMM, CV: RRR, no obvious murmurs appreciated Resp: ?No wheezing rales rhonchi no stridor moving air well Abd: ?Bowel sounds are present, no tenderness no rebound no rigidity MSK: Full range of motion in both hips, both knees, both ankles distal pulses intact Skin: Venous stasis bilateral lower extremities, on the right side feel areas of excoriation, there is really no evidence for underlying cellulitis, distal pulses intact bilaterally, and poor quality of nails with stop nail and some bleeding around his right great toe. Neuro: ?Alert and oriented x3, moving upper and lower extremities symmetrically, no obvious facial asymmetry noted Course Reevaluation(s) Reevaluation #1: Patient will be going to [facility] for [facility]. I agree with this plan Medications Administered Generic Name Dose Route Start Last Admin Trade Name Freq PRN Reason Stop Dose Admin Allopurinol 100 mg 11/20/24 12:00 11/20/24 12:35 Allopurinol 100 Mg Tablet PO 100 mg DAILY MARILEE Administration Apixaban 2.5 mg 11/20/24 12:00 11/20/24 12:34 Apixaban 2.5 Mg Tablet PO 2.5 mg BID MARILEE Administration Digoxin 0.25 mg 11/20/24 12:00 11/20/24 12:35 Digoxin 0.25 Mg Tablet PO 0.25 mg DAILY MARILEE Administration Protocol Diltiazem HCl 120 mg 11/20/24 12:00 11/20/24 12:35 Diltiazem Hcl Cd 120 Mg Cap.Er.Deg PO 120 mg DAILY MARILEE Administration Protocol Duloxetine HCl 30 mg 11/20/24 12:00 11/20/24 12:35 Duloxetine Hcl 30 Mg Capsule.Dr PO 30 mg BID MARILEE Administration Furosemide 80 mg 11/20/24 12:00 11/20/24 12:34 Furosemide 40 Mg Tablet PO 80 mg BID MARILEE Administration Protocol Gabapentin 800 mg 11/20/24 15:00 11/20/24 15:34 Gabapentin 400 Mg Capsule PO 800 mg TID MARILEE Administration Hydrocortisone 1 appl 11/20/24 11:55 11/20/24 12:17 Hydrocortisone 2.5 % Rectal Cr 30 Gm Tube UT 1 appl DAILY PRN Administration Hemorrhoids Oxycodone HCl 10 mg 11/20/24 07:39 11/20/24 14:11 Oxycodone Hcl Immed Release 5 Mg Tablet PO 10 mg Q6H PRN Administration Pain, Moderate(Pain Scale 4-6) Potassium Chloride 20 meq 11/20/24 12:00 11/20/24 12:34 Potassium Chloride Er 20 Meq Tab.Er.Prt PO 20 meq DAILY MARILEE Administration Discontinued Medications Generic Name Dose Route Start Last Admin Trade Name Freq PRN Reason Stop Dose Admin Pramoxine HCl 1 appl 11/20/24 11:36 11/20/24 12:18 Pramoxine Hcl 1 % Rectal Foam 15 Gm UT 11/20/24 11:37 1 appl ONCE ONE Administration Medical Decision Making Medical Decision Making MDM Narrative: There was no evidence for cellulitis, DVT, arterial insufficiency, septic joint either ankle or knee, patient has obvious stasis dermatitis bilaterally, he states he is wearing his compression stockings however based on exam I doubt that, he does not have significant swelling and there was no evidence for infection such as cellulitis, he will likely also developed blisters that is slightly bleed, and he either stops his toes or scratches his legs but there were a few areas of dry blood. He essentially told me he is not able to provide care for himself at home I will get case management involved, he is on pain medications at home, I will prescribe his oxycodone and PT evaluation case management. Differential Diagnosis Differential Diagnoses: The differential diagnosis associated with the presentation includes (See above) Admission/Observation Consideration of admission/observation: Escalation of care including admission/observation considered 2022 Emergency Medicine Coding Guide from [employer] on 11/20/2024 All calculations should be rechecked by clinician prior to use RESULT SUMMARY: 4 Estimated Level of Service Problems: Moderate (4) Risk: High (5) Data: Moderate (4) NARRATIVE MDM: This patient's problem complexity is Moderate as patient: with chronic illness(es) with exacerbation/progression/side effects of treatment. This patient's risk is High due to: overall presentation requiring evaluation for a potentially High-risk process. This patient's data complexity is Moderate due to: -discussion of management/testing with external professional INPUTS: Number and Complexity ?> 3 = 4: chronic illness with exacerbation (c) Risk level ?> 4 = High Tests ordered ?> 1 = 1 Tests results reviewed (excluding labs) ?> 0 = 0 Prior external notes reviewed ?> 0 = 0 Assessment requiring and independent historian ?> 0 = No Independent interpretation of tests ?> 0 = No Discussed management/test interpretation w/external professional ?> 1 = Yes Lab Data 11/20/24 07:59 11/20/24 07:59 Labs: Lab Results 11/20/24 11/20/24 Range/Units 07:59 09:53 WBC 9.3 (4.8-10.8) X10*3/uL RBC 4.55 L (4.60-5.80) X10*6/uL Hgb 12.9 L (14.0-18.0) g/dl Hct 39.8 L (42.0-52.0) % MCV 87.5 (80.0-98.0) fL MCH 28.4 (27.0-33.0) pg MCHC 32.4 (31.0-36.0) g/dl RDW 16.7 H (11.0-16.0) % Plt Count 228 (160-400) X10*3/uL MPV 10.1 (9.4-12.4) fL Immature Gran % (Auto) 0.9 H (0.0-0.4) % Neut % (Auto) 81.5 H (45-73) % Lymph % (Auto) 8.5 L (20-40) % Nicholas % (Auto) 7.2 (2-11) % Eos % (Auto) 1.3 (0-4) % Baso % (Auto) 0.6 (0-2) % Lymph # (Auto) 0.8 L (1.2-4.9) X10*3/uL Nicholas # (Auto) 0.7 (0.1-1.2) X10*3/uL Eos # (Auto) 0.1 (0.0-0.4) X10*3/uL Baso # (Auto) 0.1 (0.0-0.2) X10*3/uL Abs Immat Gran (auto) 0.08 H (0.00-0.03) X10*3/uL Absolute Neuts (auto) 7.5 (2.0-8.3) x10*3/uL Absolute Nucleated RBC 0.000 (0.0-0.012) X10*3/uL Nucleated RBC % (auto) 0.0 (0.0-0.2) /100WBC Sodium 138 (135-145) mmol/L Potassium 4.4 (3.3-5.1) mmol/L Chloride 104 (96-108) mmol/L Carbon Dioxide 24 (22-29) mmol/L Anion Gap 14 (12-20) BUN 13 (9-16) mg/dL Creatinine 0.74 (0.5-1.4) mg/dL Estim Creat Clear Calc 141.0 Estimated GFR > 60 Random Glucose 101 (60-115) mg/dL Calcium 8.7 (8.4-10.2) mg/dL Total Bilirubin 0.5 (0.0-1.0) mg/dL AST 43 H (5-37) U/L ALT 30 (0-40) U/L Alkaline Phosphatase 99 (39-117) U/L Total Protein 7.1 (6.5-8.0) g/dL Albumin 3.8 (3.5-5.0) g/dL Influenza Type A (PCR) NEGATIVE (Negative) Influenza Type B (PCR) NEGATIVE (Negative) RSV RNA Qual (PCR) NEGATIVE (Negative) SARS-CoV-2 RNA (RT-PCR) NEGATIVE (Negative) Discharge Plan Discharge Clinical Impression: Abdominal pain Patient Disposition: Xfer SNF Transfer Details: [facility] Instructions: Abdominal Pain (ED) Additional Instructions: Take your medications as prescribed. If you were prescribed antibiotics today, it is important that you take your medication to their entirety, do not skip any doses, do not finish them early. Follow-up with your primary care provider this week. Return to the emergency department with new or worsening symptoms. Such as fevers, chills, chest pain, shortness of breath, nausea, vomiting, dizziness, headache, vision changes, lethargy In case of emergency call 911 Prescriptions: No Action oxycodone 5 mg Tablet 10 mg PO Q4H PRN (Reason: Pain) hydrocortisone 2.5 % Cream With Perineal Applicator 1 appl UT DAILY PRN (Reason: Hemorrhoids) venlafaxine 37.5 mg tablet extended release 24hr 37.5 mg PO DAILY diltiazem HCl 120 mg Capsule,Extended Release 24hr 120 mg PO DAILY atorvastatin 40 mg Tablet 40 mg PO BEDTIME acetaminophen 325 mg Tablet 325 mg PO QID PRN (Reason: Pain) allopurinol 100 mg Tablet 100 mg PO DAILY digoxin 250 mcg (0.25 mg) Tablet 250 mcg PO DAILY tamsulosin 0.4 mg Capsule 0.4 mg PO DAILY vilazodone 20 mg Tablet 20 mg PO DAILY Rx Instructions: must administer with a meal/food Eliquis 2.5 mg Tablet 2.5 mg PO BID duloxetine 30 mg capsule,delayed release(DR/EC) 30 mg PO BID potassium chloride 20 mEq Tablet Extended Release 20 meq PO DAILY furosemide 80 mg tablet 80 mg PO BID gabapentin 800 mg tablet 800 mg PO TID spironolactone 50 mg tablet 50 mg PO DAILY zolpidem 10 mg tablet 10 mg PO BEDTIME PRN (Reason: Sleep) Qty: 30 0RF Referrals: [facility] [Outside] Referral Note: [address] [place] [id number] Print Language: Rwandan
[2024-11-20 08:00] VITALS: BP 136/70; PULSE 100; RESP 19; TEMP 36.8; O2SAT 99
[2024-11-20 08:03] LABS: MANUAL DIFF FLAG NO
[2024-11-20 08:05] LABS: Hematocrit 39.8 % (42.0-52.0); Hemoglobin 12.9 g/dl (14.0-18.0); Imm Gran Abs Auto 0.08 X10*3/uL (0.00-0.03); Imm Gran Pct Auto 0.9 % (0.0-0.4); Lymphocytes Absolute Auto 0.8 X10*3/uL (1.2-4.9); Mean Corpuscular HGB Conc 32.4 g/dl (31.0-36.0); Mean Corpuscular Hemoglobin 28.4 pg (27.0-33.0); Mean Corpuscular Volume 87.5 fL (80.0-98.0); NRBC Abs Auto 0.000 X10*3/uL (0.0-0.012); NRBC Pct Auto 0.0 /100WBC (0.0-0.2); Platelet Count 228 X10*3/uL (160-400); Red Blood Count 4.55 X10*6/uL (4.60-5.80); White Blood Count 9.3 X10*3/uL (4.8-10.8)
[2024-11-20] MEDS: oxyCODONE HCl Immed Release 5 MG TABLET 10 MG PO ×2 (08:06→14:11)
[2024-11-20 08:17] LABS: Alanine Aminotransferase 30 U/L (0-40); Albumin Level 3.8 g/dL (3.5-5.0); Alkaline Phosphatase 99 U/L (39-117); Anion Gap 14 (12-20); Aspartate Amino Transferase 43 U/L (5-37); Blood Urea Nitrogen 13 mg/dL (9-16); Calcium 8.7 mg/dL (8.4-10.2); Carbon Dioxide 24 mmol/L (22-29); Chloride 104 mmol/L (96-108); Creatinine Clr Calc Pharmacy 141.0; Estimated Glomerular Filt Rate > 60; Potassium 4.4 mmol/L (3.3-5.1); Sodium 138 mmol/L (135-145); Total Protein 7.1 g/dL (6.5-8.0)
[2024-11-20 10:00] VITALS: BP 127/70; PULSE 86; RESP 18; TEMP 36.2; O2SAT 96
--- NOTE | 2024-11-20 10:09 | PC.NURSE ---
pt brought to overflow bed 6- report obtained from sylvain, patient a&ox3, ambulatory with stby assist, vss, rr equal/non labored, rle pink/slightly warm to touch, pharmacy called to have med req completed as patient was argumentative with this nurse while attempting to complete med req- pt stating he takes meds differently than listed by pharmacy. he is also requesting lotion for hemorrhoids. call ortiz within reach, plan of care ongoing
[2024-11-20 10:41] LABS: Resp Syncy Virus RNA Qual PCR NEGATIVE (Negative); SARS COV2 PCR INHOUSE NEGATIVE (Negative)
--- NOTE | 2024-11-20 11:00 | PC.NURSE ---
pt requesting additional pain meds, provider notified, no new orders at this time
--- NOTE | 2024-11-20 11:50 | PHA.MEDREC ---
Pharmacy Consult ? Medication Reconciliation Pharmacy has completed the medication reconciliation.Spoke to patient at bedside, he knew all his meds and confirmed them verbally.
[2024-11-20] MEDS: Hydrocortisone 2.5 % Rectal Cr 30 GM TUBE 1 APPL PR (12:17)
[2024-11-20] MEDS: Pramoxine HCl 1 % Rectal Foam 15 GM 1 APPL PR (12:18)
[2024-11-20] MEDS: Potassium Chloride ER 20 MEQ TAB.ER.PRT PO (12:34)
[2024-11-20] MEDS: dilTIAZem HCL CD 120 MG CAP.ER.DEG PO (12:35)
[2024-11-20 14:00] VITALS: BP 131/80; PULSE 99; RESP 17; TEMP 36.6; O2SAT 96
--- NOTE | 2024-11-20 14:50 | MHC.CM.ED ---
Received case management consult from Dr Wolf. Patient is well known to due to freq ER visits. Patient lives alone, ambulates independently and had no services prior to coming to the ER. In October, [facility] [employer] submitted [employer] application for patient. [employer] is still not active. PCP verified as Shelbie Gaines. Copy of HCP verified to be on file. Patient was inpatient at [facility] 10/30-11/03. Was d/c'd to [facility] [place] on 11/03 and was d/c'd home on 11/13. Physical therapy eval completed. Referral broadcasted in [employer]. [facility] is able to offer a bed. Patient accepts. [facility] booked for 4pm. Med [facility] with chart. Patient, Dang BEAVERS and Page WALDEN aware. Continue to monitor for d/c needs.
--- NOTE | 2024-11-20 15:06 | PC.NURSE ---
this nurse has attempted to call report to demetrius- no answer at the facility, I will attempt again
--- NOTE | 2024-11-20 15:16 | PC.NURSE ---
antonieta landon [place] this nurse again tried to call and got no person to answer, there was a recording that stated the number you have dialed is not answering, please try later then it hangs up. This nurse messaged field nurse case manager Chantal who is going to try and get a number from their liaison to call report. Will attempt again once that number is obtained.
--- NOTE | 2024-11-20 16:11 | PC.NURSE ---
antonieta landon [place] this nurse again attempted the number available to give nurse to nurse report, there was no answer. still awaiting an alternative number from case management which has not been obtained yet as she is waiting to hear back from the facility liasin.
--- NOTE | 2024-11-20 16:48 | PC.NURSE ---
EMS crew from [facility] at nurses station attempted to call facility from their personal phone as well and there was no answer. notified director Ashtyn who has not responded to the tiger text- called spoke with charge nurse Delbert who stated to allow the patient to discharge and to write notes describing the difficulty which has already been done multiple times. EMS crew aware to tell accepting nurse to call us for report.
[2024-11-20 16:53] VITALS: BP 128/83; PULSE 96; RESP 18; TEMP 36.8; O2SAT 97
== END 2024-11-20 16:54 | disposition skilled nursing facility (03) ==
PROVIDERS: Emergency Provider Emergency Medicine
DX: L03.031 Cellulitis of right toe (principal); R10.2 Pelvic and perineal pain; R26.2 Difficulty in walking, not elsewhere classified; Z03.818 Encounter for observation for suspected exposure to other biological agents ruled out; Z79.899 Other long term (current) drug therapy
CPT/HCPCS: 36415; 80053; 85025; 87637; 97162; 99284

== ENCOUNTER 2025-03-14 18:37 | Emergency (ER) | payer MEDICARE, MEDICAID, SELFPAY ==
--- NOTE | ~2025-03-14 | XR_ITS ---
CLINICAL HISTORY: pain, fall 2 view right shoulder Comparison: None provided Findings: Surgical anchors are present at the proximal humerus. Bones intact. No dislocations. Mild degenerative changes are present at the AC joint. No erosions. No radiopaque foreign body. IMPRESSION: No acute right shoulder findings. This document has been electronically signed by: Long Epstein MD on 03/20/2025 10:57:51
--- NOTE | ~2025-03-14 | XR_ITS ---
CLINICAL HISTORY: fall 3 views lumbar spine Comparison: CT/SR - CT ABDOMEN PELVIS W IV CON - 07/16/24 00:30 EDT Findings: There is mild anterolisthesis of L4 on L5, otherwise alignment is within normal limits. No acute fractures or dislocation. Multilevel degenerative changes are present with intervertebral disc height loss and facet arthropathy. Visualized soft tissues demonstrate a nonobstructive bowel-gas pattern. IMPRESSION: No acute lumbar spine findings. This document has been electronically signed by: Long Epstein MD on 03/20/2025 06:22:06
--- NOTE | ~2025-03-14 | US_ITS ---
CLINICAL HISTORY: leg pain Venous duplex ultrasound right lower extremity Comparison: US/SR - US LOWER EXTREMITY VEINS LIMITED FOLLOW UP RIGHT - 03/30/22 10:09 EST Findings: The visualized deep veins are fully compressible with normal Doppler color flow and spectral tracings. No popliteal cyst. IMPRESSION: Negative for right lower extremity deep vein thrombosis. This document has been electronically signed by: Valentin Pollard MD on 03/15/2025 03:52:21
--- NOTE | ~2025-03-14 | CT_ITS ---
EXAMINATION: CT HEAD WITHOUT CONTRAST CLINICAL INFORMATION: fall last evening, unwitnessed, now more forgetful COMPARISON: August 13, 2022. TECHNIQUE: Contiguous axial imaging was performed from the skull base to vertex without intravenous administration of contrast. This CT examination was performed using dose optimization techniques as appropriate, variously including the following: *Automated exposure control *Adjustment of mA and/or kV according to patient size (this includes techniques or standardized protocols for targeted exams where dose is matched to indication/reason for exam; i.e. extremities or head) *Use of iterative reconstruction technique DLP: 1005 mGy-cm FINDINGS: No acute cortical disruption in the bony calvarium. No acute intracranial hemorrhage, mass effect, shift, hydrocephalus or herniation. Lunsford-white matter differentiation is normal. Prominence of the extra-axial CSF spaces cerebral sulci and ventricles. Prominence of the extra-axial CSF spaces along the hemicranial convexities measuring less than 5 mm in maximal thickness similar since prior exam. Posterior cranial fossa contents demonstrated no mass effect or acute hemorrhage. Normal position of the cerebellar tonsils. Focal calcification in the basilar artery, similar since prior exam. Calcified plaques in the cavernous supracavernous segments both ICAs. Sellar/suprasellar region demonstrated no gross masses. No air-fluid levels in the paranasal sinuses. Small retention cyst, left maxillary sinus. Tympanic cavities are well aerated. Poor pneumatization of the mastoids. CT/CT head/brain wo IV con IMPRESSION: No acute fracture, bony calvarium. No acute intracranial hemorrhage. Mild cerebral atrophy. Probable bilateral hygromas, hemicranial convexities. Atherosclerosis disease, intracranial.. Electronically signed by: Gerald Franco MD 03/22/2025 08:17 AM EDU
[2025-03-14 18:54] VITALS: BP 114/61; PULSE 76; RESP 20; TEMP 36.6; O2SAT 95; BMI 43.8
[2025-03-14 18:58] VITALS: BP 129/87; PULSE 84; O2SAT 96
--- NOTE | 2025-03-14 18:59 | ECG_ITS ---
Test Reason : CP Blood Pressure : */* mmHG Vent. Rate : 78 BPM Atrial Rate : * BPM P-R Int : * ms QRS Dur : 156 ms QT Int : 400 ms P-R-T Axes : * -23 -13 degrees QTcB Int : 456 ms Atrial fibrillation Right bundle branch block Minimal voltage criteria for LVH, may be normal variant ( R in aVL ) Abnormal ECG When compared with ECG of 12-Aug-2022 21:28, Vent. rate has decreased by 39 bpm T wave inversion now evident in Anterior leads Referred By: Generic ED Physician Electronically Signed By: JASWANT PAYNE MD
--- OUTSIDE RECORDS SUMMARY | 2025-03-14 19:29 | XMS_ITS | Encounter Summary ---
Author Organization [facility] Address [address] [place] [id number] Phone Care Team Providers Care School Attendance Secretary Name Role Phone Pcp, Unknown Primary Care Provider Unavailabl e Encounter Details Date Type Department Care Team (Late st Contact Info) Description 12/25/2021 Procedure Pass [facility], Ct Scan - [facility] [address] [place] [address] Social History Tobacco Use Types Packs/Day Years [...] not to disclose 2021 12:27 AM EDT documented as of this encounter Functional Status * Calculated C-SSRS Risk Score (Lifetime/Recent) Answer Date of Assessment Author No Risk Indicated 12/25/2021 12:27 AM EDT Catarina Wright RN * [place] Suicide Severity Rating Scale (Screener/Recent Self-Report) Question Answer Date of Assessment Author 1. Wish to be (Past 1 Month) No 022 12:27 AM EDT Catarina Wright, RN 2. Non-Specific Active Suici lyubov Thoughts (Past 1 Month) No 12/25/2021 12:27 AM EDT Doug Wright RN 6. Suicidal Behavior (Lifetime) No 09/19/202 2 12:27 AM EDT Catarina Wright RN documented as of this encounter Plan of Treatment Not on file documented as of this encounter Visit Diagnoses Not on filedocumented in this encounter Care Teams School Attendance Secretary Relationship Specialty Start Date End Date Pcp, Unknown PCP - General 05/01/13 documented as of this encounter Additional Source Comments The information contained in this document represents components of the legal health record. It is not the complete legal health record.[facility]
--- OUTSIDE RECORDS SUMMARY | 2025-03-14 19:29 | XMS_ITS | Clinical Summary ---
Author Organization [facility] Prior to 09/05/24 Address [address] [place] [address] Care Team Providers Care Glaciologist Name Role Phone Maty Darnell MD Primary Care Provider [phone] Allergies No known active allergies Medications Medication [...] Advance Directives For more information, please contact: [phone] Latest Code Status on File Code Status [...] in the following way:. . Care Teams Glaciologist Relationship Specialty Start Date End Date Maty Darnell MD [address] [place] [address] [address] [place] [id number] PCP - General Internal Medicine 10/24/19
--- OUTSIDE RECORDS SUMMARY | 2025-03-14 19:29 | XMS_ITS | Clinical Summary ---
Author Organization [facility] Address [address] [facility] [address] [place] [address] Phone Care Team Providers Care Rn [facility] Name Role Phone Pcp, Unknown Primary Care Provider Unavailabl e Allergies Active Allergy Reactions Criticality Noted Date Comments Codeine Unknown 03/19/2011 Opioids - Morphine Analogues Unknown 011 Medications No known medications Active Problems No known active problems Encounters Date Type Department Care Team Description 02/22/2025 3:56 PM EST - 02/22/2025 11:59 PM EST Hospital Encounter [facility] [address] [place] [id number] Cyrus Carnes MD Discharge Disposition: Home or Self Care 02/22/2025 Lab Requisition [facility] [address] [place] [id number] Cyrus Carnes MD Illness, unspecified 02/10/2025 3:04 PM EST - 02/10/2025 11:59 PM EST Hospital Encounter [facility] [address] [place] [address] Cyrus Carnes MD Discharge Disposition: Home or Self Care 02/10/2025 Lab Requisition [facility] [address] [place] [address] Cyrus Carnes MD Hyperlipidemia, unspecified; Venous insufficiency (chronic) (peripheral) 02/05/2025 7:34 AM EDT - 02/05/2025 11:59 PM EDT Hospital Encounter [facility] [address] [place] [address] Cyrus Carnes MD Discharge Disposition: Home or Self Care 01/27/2025 9:48 AM EDT - 01/27/2025 11:59 PM EDT Hospital Encounter [facility] [address] [place] [address] Cyrus Carnes MD Discharge Disposition: Home or Self Care 01/23/2025 2:56 PM EDT - 01/23/2025 7:58 PM EDT Emergency [facility] Emergency [address] [place] [address] Ana Young MD Discharge Disposition: Rehab Facility 01/19/2025 10:43 AM EDT - 01/19/2025 11:59 PM EDT Hospital Encounter [facility] Laboratory [address] [place] [address] Cyrus Carnes MD Discharge Disposition: Home or Self Care 01/19/2025 Transcribe Orders [facility] Specimen Processing [address] [place] [address] Cyrus Carnes MD Atrial fibrillation, unspecified type (Primary Dx) 12/21/2024 6:38 AM EDT - 12/21/2024 11:59 PM EDT Hospital Encounter [facility] Laboratory [address] [place] [address] Cyrus Carnes MD Discharge Disposition: Home or Self Care 12/21/2024 Transcribe Orders [facility] [address] [place] [address] Cyrus Carnes MD Essential hypertension, malignant (Primary Dx); Muscle weakness (generalized); Peripheral venous insufficiency; Hyperlipidemia, unspecified hyperlipidemia type 12/15/2024 9:02 AM EDT - 12/15/2024 11:59 PM EDT Hospital Encounter [facility] Laboratory [address] [place] [address] Cyrus Carnes MD Discharge Disposition: Home or Self Care from Last 3 Months Social History Tobacco [...] with a working camera? Not on file Intimate Partner Violence Answer Date R ecorded Are you denied basic needs s uch as food, clothing, or medical care? No 01/23/2025 In the past 12 months have y ou been in a relationship with a person who hurts, threatens, or tries to control you? No 01/23/2025 Are you denied basic needs s uch as food, clothing, or medical care? No 01/23/2025 In the past 12 months have y ou been in a relationship with a person who hurts, threatens, or tries to control you? No 01/23/2025 Sex and Gender Information Value Date Recorded Sex Assigned at Male 12/25/2021 12:27 AM EDT Legal Sex Male 11:42 AM EST Gender Identity Male 12/25/2021 12:27 AM EDT Sexual Orientation Choose not to disclose 2021 12:27 AM EDT Last Filed Vital Signs Vital Sign Reading Time Taken Comments Blood Pressure 146/78 01/23/2025 7:38 PM EDT Pulse 95 01/23/2025 7:38 PM EDT Temperature 36.2 C (97.2 F) 01/23/2025 7:38 PM EDT Respiratory Rate 18 01/23/2025 7:38 PM EDT Oxygen Saturation 96% 01/23/2025 7:38 PM EDT Inhaled Oxygen Concentration - - Weight 137 kg (302 lb) 12/25/2021 12:27 AM EDT Height 175.3 cm (5' 9 ) 12/25/2021 12:25 AM EDT Body Mass Index 44.6 12/25/2021 12:25 AM EDT Plan of Treatment Health Maintenance Due Date Last Done Comments BLOOD PRESSURE 1958 DEPRESSION SCREENING 1970 SMOKING Hx and SMOKELESS TOBACCO SCREENING 1971 HEPATITIS C SCREENING 1976 COLOGUARD 2003 COLONOSCOPY 2003 FIT TEST 2003 SIGMOIDOSCOPY 2003 VIRTUAL COLONOSCOPY 2003 RSV VACCINE (1 - Risk 50-74 years 1-dose series) 2008 ZOSTER VACCINES (1 of 2) 2008 PNEUMOCOCCAL VACCINES (50+ years) (2 of 2 - PCV) 02/13/2019 02/13/2018, 09/27/2005 COLORECTAL CANCER SCREENING 05/25/2022 FOBT 05/25/2022 05/25/2021 INFLUENZA VACCINE (#1) 2024 8, 01/09/2016 COVID-19 VACCINE ( - 2024-2 6 season) 2024 02/28/2021, 08/18/2020, 07/21/2020 Adult Td,Tdap Booster 07/11/2025 07/12/2015 LIPID PANEL 09/11/2029 09/11/2024, 07/28/2022 HEPATITIS A VACCINES Aged Out No long [...] Procedure Name Priority Date/Time Associated Diagnosis Comments COMPREHENSIVE METABOLIC PANEL (CMP) Today 02/22/2025 8:00 AM EST Illness, unspecified CBC AND DIFFERENTIAL Today 02/10/2025 10:00 AM EST Hyperlipidemia, unspecified Venous insufficiency (chronic) (peripheral) BASIC METABOLIC PANEL (BMP) Today 02/10/2025 10:00 AM EST Hyperlipidemia, unspecified Venous insufficiency (chronic) (peripheral) CBC AND DIFFERENTIAL Today 02/10/2025 10:00 AM EST Hyperlipidemia, unspecified Venous insufficiency (chronic) (peripheral) CBC AND DIFFERENTIAL Routine 02/05/2025 5:32 AM EDT Congestive heart failure, unspecified HF chronicity, unspecified heart failure type BASIC METABOLIC PANEL (BMP) Routine 02/05/2025 5:32 AM EDT Congestive heart failure, unspecified HF chronicity, unspecified heart failure type NT-PROBNP Routine 02/05/2025 5:32 AM EDT Congestive heart failure, unspecified HF chronicity, unspecified heart failure type DIGOXIN LEVEL Routine 02/05/2025 5:32 AM EDT Congestive heart failure, unspecified HF chronicity, unspecified heart failure type CBC AND DIFFERENTIAL Routine 01/27/2025 6:50 AM EDT Leukocytosis, unspecified type TOXICOLOGY SCREEN, URINE STAT 01/23/2025 4:30 PM EDT ETHANOL, BLOOD STAT 01/23/2025 4:05 PM EDT MAGNESIUM STAT 01/23/2025 4:05 PM EDT LFTS (HEPATIC PANEL) STAT 01/23/2025 4:05 PM EDT BASIC METABOLIC PANEL (BMP) STAT 01/23/2025 4:05 PM EDT CBC AND DIFFERENTIAL STAT 01/23/2025 4:05 PM EDT CBC AND DIFFERENTIAL Routine 01/19/2025 8:10 AM EDT Atrial fibrillation, unspecified type COMPREHENSIVE METABOLIC PANEL (CMP) Routine 01/19/2025 8:10 AM EDT Atrial fibrillation, unspecified type HEMOGLOBIN A1C Routine 01/19/2025 8:10 AM EDT Atrial fibrillation, unspecified type THYROID STIMULATING HORMONE (TSH) Routine 01/19/2025 8:10 AM EDT Atrial fibrillation, unspecified type CBC AND DIFFERENTIAL Routine 12/21/2024 6:00 AM EDT Essential hypertension, malignant Muscle weakness (generalized) Peripheral venous insufficiency Hyperlipidemia, unspecified hyperlipidemia type BASIC METABOLIC PANEL (BMP) Routine 12/21/2024 6:00 AM EDT Essential hypertension, malignant Muscle weakness (generalized) Peripheral venous insufficiency Hyperlipidemia, unspecified hyperlipidemia type CBC AND DIFFERENTIAL Routine 12/15/2024 7:23 AM EDT Peripheral venous insufficiency Hyperlipidemia, unspecified hyperlipidemia type Atrial fibrillation, unspecified type Muscle weakness (generalized) BASIC METABOLIC PANEL (BMP) Routine 12/15/2024 7:23 AM EDT Peripheral venous insufficiency Hyperlipidemia, unspecified hyperlipidemia type Atrial fibrillation, unspecified type Muscle weakness (generalized) FECAL OCCULT BLOOD, MULTIPLE Routine 05/25/2021 11:30 AM EST Anemia, unspecified type from Last 3 Months or Most Recently Relevant to Health Maintenance Results * (ABNORMAL) Comprehensive Metabolic Panel (CMP) (02/22/2025 8:00 AM EST) Only the most recent of2 resultswithin the time period is included. Sodium 140 136 - 145 mmol/L 02/22/2025 12:13 PM [facility] Potassium 4.4 3.4 - 5.1 mmol/L 02/22/2025 12:13 PM [facility] Chloride 105 98 - 107 mmol/L 02/22/2025 12:13 PM [facility] CO2 25 20 - 31 mmol/L 02/22/2025 12:13 PM [facility] Anion Gap 10 3 - 17 mmol/L 02/22/2025 12:13 PM [facility] BUN 27(H) 6 - 23 mg/dL 02/22/2025 12:13 PM [facility] Creatinine 0.80 0.60 - 1.30 mg/dL 02/22/2025 12:13 PM [facility] eGFR 98 >59 mL/min/1.7 3m2 02/22/2025 12:13 PM [facility] Comment:Estimated glomerular filtration rate calculated using the CKD-EPI refit equation. Glucose 92 70 - 99 mg/dL 02/22/2025 12:13 PM [facility] Calcium 8.7 8.5 - 10.5 mg/dL 02/22/2025 12:13 PM [facility] AST 17 <40 U/L 02/22/2025 12:13 PM [facility] ALT 21 <50 U/L 02/22/2025 12:13 PM [facility] Alkaline Phosphatase 103 40 - 130 U/L 02/22/2025 12:13 PM [facility] Bilirubin, Total 0.3 0.0 - 1.2 mg/dL 02/22/2025 12:13 PM [facility] Total Protein 6.7 6.4 - 8.3 g/dL 02/22/2025 12:13 PM [facility] Albumin 3.8 3.5 - 5.2 g/dL 02/22/2025 12:13 PM [facility] Globulin 2.9 1.9 - 4.1 g/dL 02/22/2025 12:13 PM [facility] Blood (Blood) 02/22/2025 8:0 0 AM EST 02/22/2025 9:11 AM EST us Cyrus Carnes MD LAB BLOOD BKR ORDERABLES Final R esult [facility] [address] [place] [address] * (ABNORMAL) CBC and Differential (02/10/2025 10:00 AM EST) WBC 7.13 4.00 - 11.00 K/uL 02/10/2025 12:20 PM [facility] RBC 4.25(L) 4.50 - 5.90 M/uL 02/10/2025 12:20 PM [facility] Hemoglobin 11.8(L) 13.5 - 17.5 g/dL 02/10/2025 12:20 PM [facility] Hematocrit 39.1(L) 41.0 - 53.0 % 02/10/2025 12:20 PM [facility] MCV 92.0 80.0 - 100.0 fL 02/10/2025 12:20 PM [facility] MCH 27.8 27.0 - 31.0 pg 02/10/2025 12:20 PM [facility] MCHC 30.2(L) 32.0 - 36.0 g/dL 02/10/2025 12:20 PM [facility] MPV 10.9 8.4 - 12.0 fL 02/10/2025 12:20 PM [facility] RDW-CV 18.4(H) 11.5 - 14.5 % 02/10/2025 12:20 PM [facility] PLT 213 150 - 450 K/uL 02/10/2025 12:20 PM [facility] Neutrophils 79.1 % 02/10/2025 12:20 PM [facility] Lymphocytes 10.9 % 02/10/2025 12:20 PM [facility] Monocytes 7.2 % 02/10/2025 12:20 PM [facility] Eosinophils 1.5 % 02/10/2025 12:20 PM [facility] Basophils 0.7 % 02/10/2025 12:20 PM [facility] Imm Grans 0.6 % 02/10/2025 12:20 PM [facility] NRBC 0.0 <=0.0 /100 WBCs 02/10/2025 12:20 PM [facility] Absolute Neutrophils 5.64 1.92 - 7.60 K/uL 02/10/2025 12:20 PM [facility] Absolute Lymphocytes 0.78 0.72 - 4.10 K/uL 02/10/2025 12:20 PM [facility] Absolute Monocytes 0.51 0.16 - 1.10 K/uL 02/10/2025 12:20 PM [facility] Absolute Eosinophils 0.11 0.00 - 0.50 K/uL 02/10/2025 12:20 PM [facility] Absolute Basophils 0.05 0.00 - 0.15 K/uL 02/10/2025 12:20 PM [facility] Absolute Imm Grans 0.04 0.00 - 0.09 K/uL 02/10/2025 12:20 PM [facility] Absolute NRBC 0.00 <=0.00 K cells/uL 02/10/2025 12:20 PM [facility] Absolute Neutrophils 5.64 1.92 - 7.60 K/uL 02/10/2025 12:20 PM [facility] Comment:Automated cell count . Manual ANC may differ if performed. Diff Type Auto 02/10/2025 12:20 PM [facility] Blood (Blood) 02/10/2025 10: 00 AM EST 02/10/2025 11:23 AM EST us Cyrus Carnes MD LAB BLOOD BKR ORDERABLES Final R esult [address] [address] * (ABNORMAL) Basic Metabolic Panel (BMP) (02/10/2025 10:00 AM EST) Only the most recent of5 resultswithin the time period is included. Sodium 140 136 - 145 mmol/L 02/10/2025 1:38 PM [facility] Potassium 3.8 3.4 - 5.1 mmol/L 02/10/2025 1:38 PM [facility] Comment:NOTE: Specimen hemol yzed. Results may be falsely increased. Chloride 100 98 - 107 mmol/L 02/10/2025 1:38 PM [facility] CO2 26 20 - 31 mmol/L 02/10/2025 1:38 PM [facility] Anion Gap 14 3 - 17 mmol/L 02/10/2025 1:38 PM [facility] BUN 17 6 - 23 mg/dL 02/10/2025 1:38 PM [facility] Creatinine 1.10 0.60 - 1.30 mg/dL 02/10/2025 1:38 PM [facility] eGFR 74 >59 mL/min/1.7 3m2 02/10/2025 1:38 PM [facility] Comment:Estimated glomerular filtration rate calculated using the CKD-EPI refit equation. Glucose 113(H) 70 - 99 mg/dL 02/10/2025 1:38 PM [facility] Calcium 8.3(L) 8.5 - 10.5 mg/dL 02/10/2025 1:38 PM EST [facility] Blood (Blood) 02/10/2025 10: 00 AM EST 02/10/2025 11:23 AM EST us Cyrus Carnes MD LAB BLOOD BKR ORDERABLES Final R esult [address] [address] * (ABNORMAL) CBC and differential (02/05/2025 5:32 AM EDT) Only the most recent of6 resultswithin the time period is included. WBC 9.70 4.00 - 11.00 K/uL [facility] RBC 4.75 4.50 - 5.90 M/uL [facility] HGB 13.0(L) 13.5 - 17.5 g/dL [facility] HCT 43.5 41.0 - 53.0 % [facility] PLT 229 150 - 450 K/uL [facility] MCV 91.6 80.0 - 100.0 fL [facility] MCH 27.4 27.0 - 31.0 pg [facility] MCHC 29.9(L) 32.0 - 36.0 g/dL [facility] RDW 18.8(H) 11.5 - 14.5 % [facility] MPV 10.5 8.4 - 12.0 fL [facility] NRBC 0.00 0.00 /100 WBCs [facility] ABSOLUTE NRBC 0.00 0.00 K/uL [facility] DIFF METHOD Auto [facility] NEUTS 81.0(H) 48.0 - 76.0 % [facility] LYMPHS 8.0(L) 18.0 - 41.0 % [facility] MONOS 9.3 4.0 - 11.0 % [facility] EOS 0.5 0.0 - 5.0 % [facility] BASOS 0.7 0.0 - 1.5 % [facility] Granulocytes, immature (%) 0.5 0.0 - 0.9 % [facility] ABSOLUTE NEUTS 7.85(H) 1.92 - 7.60 K/uL [facility] ABSOLUTE LYMPHS 0.78 0.72 - 4.10 K/uL [facility] ABSOLUTE MONOS 0.90 0.16 - 1.10 K/uL [facility] ABSOLUTE EOS 0.05 0.00 - 0.50 K/uL [facility] ABSOLUTE BASOS 0.07 0.00 - 0.15 K/uL [facility] Granulocytes, immature 0.05 0.00 - 0.09 K/uL [facility] Blood 02/05/2025 5:32 AM EDT 02/05/2025 8:26 AM EDT us Cyrus Carnes MD LAB BLOOD BKR ORDERABLES Final R esult Performing Organization Address [facility]/ZIP Co de Phone Number [address] [address] * (ABNORMAL) NT-proBNP (02/05/2025 5:32 AM EDT) NT-PROBNP 226(H) 0 - 125 pg/mL [facility] Blood 02/05/2025 5:32 AM EDT 02/05/2025 8:26 AM EDT us Cyrus Carnes MD LAB BLOOD BKR ORDERABLES Final R esult Performing Organization Address City/[facility]/ZIP Co de Phone Number [address] [address] * Digoxin level (02/05/2025 5:32 AM EDT) DIGOXIN 1.2 0.9 - 2.0 ng/mL [facility] Blood 02/05/2025 5:32 AM EDT 02/05/2025 8:26 AM EDT us Cyrus Carnes MD LAB BLOOD BKR ORDERABLES Final R esult Performing Organization Address City/[facility]/ZIP Co de Phone Number [address] [address] * (ABNORMAL) Toxicology screen, urine (01/23/2025 4:30 PM EDT) URINE CANNABINOIDS NONE DETECTED NONE DETECTED [facility] Comment:Cutoff: 50 ng/mL URINE COCAINE METAB NONE DETECTED NONE DETECTED [facility] Comment:Cutoff: 300 ng/mL URINE AMPHETAMINES NONE DETECTED NONE DETECTED [facility] Comment:Cutoff: 1000 ng/mL URINE METHADONE NONE DETECTED NONE DETECTED [facility] Comment:Cutoff: 300 ng/mL URINE OPIATES NONE DETECTED NONE DETECTED [facility] Comment:Cutoff: 300 ng/mL URINE PHENCYCLIDINE NONE DETECTED NONE DETECTED [facility] Comment:Cutoff: 25 ng/mL URINE OXYCODONE Positive(A) NONE DETECTED [facility] Comment:Cutoff: 300 ng/mL URINE BARBITURATES NONE DETECTED NONE DETECTED [facility] Comment:Cutoff: 200 ng/mL URINE BENZODIAZEPINE NONE DETECTED NONE DETECTED [facility] Comment:Cutoff: 200 ng/mL URINE BUPRENORPHINE NONE DETECTED NONE DETECTED [facility] Comment:Cutoff: 5 ng/mL Fentanyl, urine NONE DETECTED NONE DETECTED [facility] Comment: Cutoff: 5 ng/mL INTERPRETATION FOR TOXICOLOGY PANEL: These results are unconfirmed and should be used for Medical Treatment purposes only. Urine (Urine) 01/23/2025 4:3 0 PM EDT 01/23/2025 4:40 PM EDT Edenilson Shane PA-C LAB URINE ORDERABLES Final Re sult [address] [address] * (ABNORMAL) Ethanol, blood (01/23/2025 4:05 PM EDT) ETHANOL 88(H) <10 mg/dL [facility] Blood 01/23/2025 4:05 PM EDT 01/23/2025 4:08 PM EDT Edenilson S Shane PA-C LAB BLOOD BKR ORDERABLES Marjorie l Result Performing Organization Address City/[facility]/ZIP Co de Phone Number [address] [address] * LFTs (hepatic panel) (01/23/2025 4:05 PM EDT) ALKALINE PHOSPHATASE 108 39 - 117 U/L [facility] TOTAL BILIRUBIN 0.4 0.0 - 1.2 mg/dL [facility] DIRECT BILIRUBIN 0.2 0.0 - 0.2 mg/dL [facility] Bilirubin (Indirect) 0.2 0 - 1.5 mg/dL [facility] AST 36 0 - 37 U/L [facility] ALT 32 0 - 40 U/L [facility] TOTAL PROTEIN 7.8 6.5 - 8.0 g/dL [facility] ALBUMIN 3.9 3.9 - 4.8 g/dL [facility] GLOBULIN 3.9 1 - 4.8 g/dL [facility] A/G Ratio 1.00 1.00 - 4.80 RATIO [facility] Blood 01/23/2025 4:05 PM EDT 01/23/2025 4:08 PM EDT Edenilson Shane PA-C LAB BLOOD BKR ORDERABLES Marjorie l Result Performing Organization Address [facility] Co de Phone Number [address] [address] * (ABNORMAL) Magnesium (01/23/2025 4:05 PM EDT) MAGNESIUM 2.7(H) 1.6 - 2.6 mg/dL [facility] Blood 01/23/2025 4:05 PM EDT 01/23/2025 4:08 PM EDT Edenilson Shane PA-C LAB BLOOD BKR ORDERABLES Marjorie l Result Performing Organization Address City/[facility]/ZIP Co de Phone Number [address] [address] * (ABNORMAL) TSH (01/19/2025 8:10 AM EDT) TSH 5.71(H) 0.27 - 4.20 uIU/mL [facility] Blood 01/19/2025 8:10 AM EDT 01/19/2025 11:18 AM EDT us Cyrus Carnes MD LAB BLOOD BKR ORDERABLES Final R esult Performing Organization Address [facility]/ZIP Co de Phone Number [address] [address] * (ABNORMAL) Hemoglobin A1c (01/19/2025 8:10 AM EDT) HEMOGLOBIN A1C 5.9(H) 4.3 - 5.8 % [facility] Blood 01/19/2025 8:10 AM EDT 01/19/2025 11:18 AM EDT us Cyrus Carnes MD LAB BLOOD BKR ORDERABLES Final R esult Performing Organization Address [facility] Co de Phone Number [address] [address] * Fecal occult blood, multiple (05/25/2021 11:30 AM EST) FECAL OCC BLD 1 DATE 21,722 [facility] Occult bld, stool, #1 Negative Negative [facility] Stool (Stool) 05/25/2021 11: 30 AM EST 05/25/2021 5:06 PM EST us Iesha WALDEN BODY FLUIDS AND STOOLS OR DERABLES Final Result Performing Organization Address [facility] Co de Phone Number [address] [address] from Last 3 Months or Most Recently Relevant to Health Maintenance Insurance MEDICARE PART A & [place] B [employer] MED[employer] [place] A & [place] B [facility] PART [facility] & [facility] & B [facility] PART A & [place] A & B 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 It is not the complete legal health record.[facility]
--- OUTSIDE RECORDS SUMMARY | 2025-03-14 19:30 | XMS_ITS | Encounter Summary ---
Author Organization [facility] Address [address] [place] [address] Care Team Providers Care Data Modeling Specialist Name Role Phone Maty Darnell MD Primary Care Provider [phone] Encounter Details Date Type Department Care Team (Late st Contact Info) Description 06/01/2024 Lab Requisition [facility] - Main Lab [address] [place] [address] Herminio Lee MD [address] [place] [address] Shortness of breath Social History Tobacco Use [...] LAB CHEMISTRY METHOD 06/01/2024 12:30 PM EST [facility] LAB Potassium 4.4 3.5 - 5.5 mmol/L LAB CHEMISTRY METHOD 06/01/2024 12:30 PM [facility] Chloride 107 96 - 110 mmol/L LAB CHEMISTRY METHOD 06/01/2024 12:30 PM [facility] CO2 25 21 - 32 mmol/L LAB CHEMISTRY METHOD 06/01/2024 12:30 PM [facility] LAB Anion Gap 9 3 - 11 LAB CHEMISTRY METHOD 06/01/2024 12:30 PM [facility] Glucose 79 70 - 100 mg/dL LAB CHEMISTRY METHOD 06/01/2024 12:30 PM [facility] BUN 18 5 - 25 mg/dL LAB CHEMISTRY METHOD 06/01/2024 12:30 PM [facility] Creatinine 1.16 0.70 - 1.30 mg/dL LAB CHEMISTRY METHOD 06/01/2024 12:30 PM [facility] LAB eGFR 69 >=60 mL/min/1. 73m2 LAB CHEMISTRY METHOD 06/01/2024 12:30 PM [facility] Comment:Calculation based on the Chronic Kidney Disease Epidemiology Collaboration (CKD-EPI) equation refit without adjustment for race. BUN/Creatinine Ratio 15.5 LAB CHEMISTRY METHOD 06/01/2024 12:30 PM [facility] Calcium 8.7 8.5 - 10.5 mg/dL LAB CHEMISTRY METHOD 06/01/2024 12:30 PM [facility] Blood Venous blood specimen / Unknown Venipuncture / Unknown 06/01/2024 10:03 AM EST 06/01/2024 11:00 AM EST us Herminio Lee MD LAB BLOOD ORDERABLES Final R esult [facility] [address] [place] [address], * (ABNORMAL) Complete blood count (06/01/2024 10:03 AM EST) WBC 8.8 4.8 - 10.8 K/mcL LAB HEMETOLOGY METHOD 06/01/2024 1:47 PM [facility] RBC 4.30(L) 4.50 - 5.50 M/mcL LAB HEMETOLOGY METHOD 06/01/2024 1:47 PM [facility] Hemoglobin 12.6(L) 13.5 - 17.5 g/dL LAB HEMETOLOGY METHOD 06/01/2024 1:47 PM [facility] LAB Hematocrit 40.6(L) 42.0 - 54.0 % LAB HEMETOLOGY METHOD 06/01/2024 1:47 PM [facility] MCV 94.9 79.0 - 98.0 FL LAB HEMETOLOGY METHOD 06/01/2024 1:47 PM [facility] MCH 29.4 27.0 - 32.0 pcg LAB HEMETOLOGY METHOD 06/01/2024 1:47 PM [facility] MCHC 31.0(L) 32.0 - 37.0 g/dL LAB HEMETOLOGY METHOD 06/01/2024 1:47 PM [facility] RDW 15.2(H) 11.0 - 15.0 % LAB HEMETOLOGY METHOD 06/01/2024 1:47 PM [facility] Platelets 282 130 - 400 K/mcL LAB HEMETOLOGY METHOD 06/01/2024 1:47 PM [facility] MPV 10.6 7.0 - 11.0 FL LAB HEMETOLOGY METHOD 06/01/2024 1:47 PM [facility] NRBC 0.0 <1.0 % LAB HEMETOLOGY METHOD 06/01/2024 1:47 PM [facility] NRBC Absolute 0.00 <0.10 K/mcL LAB HEMETOLOGY METHOD 06/01/2024 1:47 PM [facility] Blood Venous blood specimen / Unknown Venipuncture / Unknown 06/01/2024 10:03 AM EST 06/01/2024 11:00 AM EST us Herminio Lee MD LAB BLOOD ORDERABLES Final R esult [facility] [address] [place] [address], documented in this encounter Visit Diagnoses Diagnosis Shortness of breath documented in this encounter Additional Health Concerns Infection Onset Date Last Indicated Resolved Time Influenza 05/26/2024 05/26/2024 06/19/2024 7:04 PM EDT documented as of this encounter Care Teams Data Modeling Specialist Relationship Specialty Start Date End Date Maty Darnell MD [address] [place] [address] Dr [address] [place], [place] PCP - General Internal Medicine 10/24/19 documented as of this encounter
--- OUTSIDE RECORDS SUMMARY | 2025-03-14 19:30 | XMS_ITS | Encounter Summary ---
Author Organization [facility] [employer] Address [address] 7[address] [place] [address] Care Team Providers Care Cost Accountant Name Role Phone Rick Arcos MD Primary Care Prov ider Reason for Visit * Reason Onset Date Comments Hospital Follow-up 04/15/2024 Encounter Details Date Type Department Care Team ([facility] st Contact Info) Description 04/15/2024 Telephone [facility] [address] [place], [place] [phone] Barrington Morataya MD [address] [place], [place] [phone] Hospital Follow-up Social History Tobacco Use Types [...] from pt requesting a HDF appt. Hospital: [facility] Date of admission: 03/17/2024 Discharge date: 05/09/2024 Diagnosed: Discuss with pt. *Send message to [place] Clinical Care Coordinators documented in this encounter Plan of Treatment Not on file documented as of this encounter Visit Diagnoses Not on filedocumented in this encounter Care Teams Cost Accountant Relationship Specialty Start Date End Date Rick Arcos MD [address] [place] [address] PCP - General Internal Medicine 05/28/24 [address] 06/09/24 documented as of this encounter
--- OUTSIDE RECORDS SUMMARY | 2025-03-14 19:30 | XMS_ITS | Encounter Summary ---
Author Organization [facility] Address [address] [place] [address] Phone Care Team Providers Care Pit Hand Name Role Phone Pcp, Unknown Primary Care Provider Unavailabl e Encounter Details Date Type Department Care Team (Late st Contact Info) Description 12/25/2021 Procedure Pass [facility], Ct Scan - [facility] [address] [place] [address] Social History Tobacco Use Types Packs/Day Years [...] 12:27 AM EDT Catarina Wright RN * [place] Suicide Severity Rating Scale (Screener/Recent Self-Report) Question [...] on filedocumented in this encounter Care Teams Pit Hand Relationship Specialty Start Date End Date Pcp, Unknown PCP - General 05/01/13 documented as of this encounter Additional Source Comments The information contained in this document represents components of the legal health record. It is not the complete legal health record.[facility]
--- OUTSIDE RECORDS SUMMARY | 2025-03-14 19:30 | XMS_ITS | Encounter Summary ---
Author Organization [facility] Address [address] [place] [address] Phone Care Team Providers Care Internal Combustion Engineer Name Role Phone Pcp, Unknown Primary Care Provider Unavailabl e Encounter Details Date Type Department Care Team (Late st Contact Info) Description 04/10/2021 Transcribe Orders [facility] Specimen Processing [address] [place] [address] Cyrus Carnes MD [address] [facility] [place] [address] [email or web address] Encounter for routine adult health examination without abnormal findings Social History Tobacco Use Types Packs/Day Years [...] Name Priority Date/Time Associated Diagnosis Comments CBC Routine 04/10/2021 5:49 AM EST Encounter for routine adult health examination without abnormal findings BASIC METABOLIC PANEL (BMP) Routine 04/10/2021 5:49 AM EST Encounter for routine adult health examination without abnormal findings documented in this encounter Results * Basic metabolic panel (04/10/2021 5:49 AM EST) SODIUM 142 133 - 146 mmol/L [facility] CHLORIDE 104 96 - 108 mmol/L [facility] POTASSIUM 4.0 3.3 - 5.1 mmol/L [facility] CO2 27 21 - 35 mmol/L [facility] BUN 7 6 - 19 mg/dL [facility] CREATININE 0.80 0.5 - 1.5 mg/dL [facility] GLUCOSE 85 70 - 99 mg/dL [facility] CALCIUM 8.9 8.4 - 10.3 mg/dL [facility] EGFR 100 >59 mL/min/1.7 3m2 [facility] Comment:Estimated glomerular filtration rate calculated using the CKD-EPI refit equation. ANION GAP 15 10 - 20 mmol/L [facility] Blood 04/10/2021 5:49 AM EST 04/10/2021 8:24 AM EST us Cyrus Carnes MD LAB BLOOD BKR ORDERABLES Final R esult [facility] [address] [place] [address] * (ABNORMAL) CBC (04/10/2021 5:49 AM EST) WBC 8.64 4.00 - 11.00 K/uL [facility] RBC 4.41 3.90 - 5.69 M/uL [facility] HGB 12.8 12.4 - 17.3 g/dL [facility] HCT 41.9 37.0 - 51.0 % [facility] PLT 221 140 - 430 K/uL [facility] MCV 95.0 78.0 - 97.0 fL [facility] MCH 29.0 25.0 - 33.0 pg [facility] MCHC 30.5(L) 32.0 - 36.0 g/dL [facility] RDW 20.4(H) 11.0 - 15.0 % [facility] MPV 11.4 8.4 - 12.8 fl [facility] NRBC 0.00 0 /100 WBCs [facility] ABSOLUTE NRBC 0.00 0 K/uL [facility] Blood 04/10/2021 5:49 AM EST 04/10/2021 8:24 AM EST us Cyrus Carnes MD LAB BLOOD BKR ORDERABLES Final R esult Performing Organization Address City/State/[facility] Co de Phone Number [facility] [address] [place] [address] documented in this encounter Visit Diagnoses Diagnosis Encounter for routine adult health examination without abnormal findings documented in this encounter Additional Health Concerns Infection Onset Date Last Indicated Resolved Time COVID-19 04/26/2021 04/26/2021 05/17/2021 1:24 AM EST documented as of this encounter Care Teams Internal Combustion Engineer Relationship Specialty Start Date End Date Pcp, Unknown PCP - General 05/01/13 documented as of this encounter Additional Source Comments The information contained in this document represents components of the legal health record. It is not the complete legal health record.[facility]
--- OUTSIDE RECORDS SUMMARY | 2025-03-14 19:30 | XMS_ITS | Encounter Summary ---
Author Organization [facility] Address [address] [place] [address] Care Team Providers Care Key Account Executive Name Role Phone Maty Darnell MD Primary Care Provider Encounter Details Date Type Department Care Team (Late st Contact Info) Description 05/25/2024 Lab Requisition [facility] - Main Lab [address] [place] [address] Herminio Lee MD [address] [place] [address] Essential (primary) hypertension; Fever, unspecified Social History [...] LAB CHEMISTRY METHOD 05/25/2024 11:48 AM EST [facility] Potassium 4.3 3.5 - 5.5 mmol/L LAB CHEMISTRY METHOD 05/25/2024 11:48 AM [facility] Chloride 101 96 - 110 mmol/L LAB CHEMISTRY METHOD 05/25/2024 11:48 AM [facility] CO2 24 21 - 32 mmol/L LAB CHEMISTRY METHOD 05/25/2024 11:48 AM [facility] Anion Gap 11 3 - 11 LAB CHEMISTRY METHOD 05/25/2024 11:48 AM [facility] Glucose 95 70 - 100 mg/dL LAB CHEMISTRY METHOD 05/25/2024 11:48 AM [facility] BUN 21 5 - 25 mg/dL LAB CHEMISTRY METHOD 05/25/2024 11:48 AM [facility] Creatinine 1.36(H) 0.70 - 1.30 mg/dL LAB CHEMISTRY METHOD 05/25/2024 11:48 AM [facility] eGFR 57(L) >=60 mL/min/1. 73m2 LAB CHEMISTRY METHOD 05/25/2024 11:48 AM [facility] Comment:Calculation based on the Chronic Kidney Disease Epidemiology Collaboration (CKD-EPI) equation refit without adjustment for race. BUN/Creatinine Ratio 15.4 LAB CHEMISTRY METHOD 05/25/2024 11:48 AM [facility] Calcium 8.1(L) 8.5 - 10.5 mg/dL LAB CHEMISTRY METHOD 05/25/2024 11:48 AM [facility] Blood Venous blood specimen / Unknown Venipuncture / Unknown 05/25/2024 7:40 AM EST 05/25/2024 10:32 AM EST us Herminio Lee MD LAB BLOOD ORDERABLES Final R esult [facility] [address] [place] [address], * (ABNORMAL) Complete blood count (05/25/2024 7:40 AM EST) [facility] WBC 7.4 4.8 - 10.8 K/mcL LAB HEMETOLOGY METHOD 05/25/2024 11:44 AM [facility] RBC 3.90(L) 4.50 - 5.50 M/mcL LAB HEMETOLOGY METHOD 05/25/2024 11:44 AM [facility] Hemoglobin 11.4(L) 13.5 - 17.5 g/dL LAB HEMETOLOGY METHOD 05/25/2024 11:44 AM [facility] Hematocrit 36.9(L) 42.0 - 54.0 % LAB HEMETOLOGY METHOD 05/25/2024 11:44 AM [facility] MCV 95.3 79.0 - 98.0 FL LAB HEMETOLOGY METHOD 05/25/2024 11:44 AM [facility] MCH 29.5 27.0 - 32.0 pcg LAB HEMETOLOGY METHOD 05/25/2024 11:44 AM [facility] MCHC 30.9(L) 32.0 - 37.0 g/dL LAB HEMETOLOGY METHOD 05/25/2024 11:44 AM [facility] RDW 15.0 11.0 - 15.0 % LAB HEMETOLOGY METHOD 05/25/2024 11:44 AM [facility] Platelets 164 130 - 400 K/mcL LAB HEMETOLOGY METHOD 05/25/2024 11:44 AM [facility] MPV 11.5(H) 7.0 - 11.0 FL LAB HEMETOLOGY METHOD 05/25/2024 11:44 AM [facility] NRBC 0.0 <1.0 % LAB HEMETOLOGY METHOD 05/25/2024 11:44 AM [facility] NRBC Absolute 0.00 <0.10 K/mcL LAB HEMETOLOGY METHOD 05/25/2024 11:44 AM EST [facility] Blood Venous blood specimen / Unknown Venipuncture / Unknown 05/25/2024 7:40 AM EST 05/25/2024 10:32 AM EST us Herminio Lee MD LAB BLOOD ORDERABLES Final R esult [facility] [address] [place] [address], documented in this encounter Visit Diagnoses Diagnosis Essential (primary) hypertension Unspecified essential hypertension Fever, unspecified documented in this encounter Additional Health Concerns Infection Onset Date Last Indicated Resolved Time Respiratory Rule-Out 05/26/2024 05/26/2024 025 3:08 PM EST Influenza 05/26/2024 05/26/2024 06/19/2024 7:04 PM EDT documented as of this encounter Care Teams Key Account Executive Relationship Specialty Start Date End Date Maty Darnell MD [address] [place] PCP - General Internal Medicine 10/24/19 documented as of this encounter
--- OUTSIDE RECORDS SUMMARY | 2025-03-14 19:30 | XMS_ITS | Encounter Summary ---
Author Organization [facility] Address [address] [place] [address] Care Team Providers Care Applications Support Engineer Name Role Phone Maty Darnell MD Primary Care Provider [phone] Encounter Details Date Type Department Care Team (Late st Contact Info) Description 10/16/2024 Lab Requisition [facility] - Main Lab [address] [place] [address] Kandy Christina MD [address] [phone] Venous insufficiency (chronic) (peripheral) Social History Tobacco [...] LAB CHEMISTRY METHOD 10/16/2024 11:40 AM EDT [facility] Potassium 3.5 3.5 - 5.5 mmol/L LAB CHEMISTRY METHOD 10/16/2024 11:40 AM [facility] Chloride 103 96 - 110 mmol/L LAB CHEMISTRY METHOD 10/16/2024 11:40 AM [facility] CO2 29 21 - 32 mmol/L LAB CHEMISTRY METHOD 10/16/2024 11:40 AM [facility] Anion Gap 7 3 - 11 LAB CHEMISTRY METHOD 10/16/2024 11:40 AM [facility] Glucose 100 70 - 100 mg/dL LAB CHEMISTRY METHOD 10/16/2024 11:40 AM [facility] BUN 21 5 - 25 mg/dL LAB CHEMISTRY METHOD 10/16/2024 11:40 AM [facility] Creatinine 1.03 0.70 - 1.30 mg/dL LAB CHEMISTRY METHOD 10/16/2024 11:40 AM [facility] LAB eGFR 80 >=60 mL/min/1. 73m2 LAB CHEMISTRY METHOD 10/16/2024 11:40 AM [facility] Comment:Calculation based on the Chronic Kidney Disease Epidemiology Collaboration (CKD-EPI) equation refit without adjustment for race. BUN/Creatinine Ratio 20.4 LAB CHEMISTRY METHOD 10/16/2024 11:40 AM [facility] Calcium 8.8 8.5 - 10.5 mg/dL LAB CHEMISTRY METHOD 10/16/2024 11:40 AM [facility] AST (SGOT) 28 10 - 42 unit/L LAB CHEMISTRY METHOD 10/16/2024 11:40 AM [facility] ALT (SGPT) 40 10 - 60 unit/L LAB CHEMISTRY METHOD 10/16/2024 11:40 AM [facility] Alkaline Phosphatase 100 42 - 121 unit/L LAB CHEMISTRY METHOD 10/16/2024 11:40 AM [facility] Total Protein 6.4 6.0 - 8.0 g/dL LAB CHEMISTRY METHOD 10/16/2024 11:40 AM EDT [facility] Albumin 3.0(L) 3.2 - 5.0 g/dL LAB CHEMISTRY METHOD 10/16/2024 11:40 AM EDT [facility] Total Bilirubin 0.4 0.0 - 1.4 mg/dL LAB CHEMISTRY METHOD 10/16/2024 11:40 AM EDT [facility] Blood Venous blood specimen / Unknown Venipuncture / Unknown 10/16/2024 5:58 AM EDT 10/16/2024 10:43 AM EDT us Kandy Christina MD LAB BLOOD ORDERABLES Fin al Result [facility] [address] [place] [address], * (ABNORMAL) Complete blood count (10/16/2024 5:58 AM EDT) WBC 9.8 4.8 - 10.8 K/mcL LAB HEMETOLOGY METHOD 10/16/2024 11:07 AM [facility] RBC 4.60 4.50 - 5.50 M/mcL LAB HEMETOLOGY METHOD 10/16/2024 11:07 AM [facility] Hemoglobin 12.8(L) 13.5 - 17.5 g/dL LAB HEMETOLOGY METHOD 10/16/2024 11:07 AM [facility] Hematocrit 43.3 42.0 - 54.0 % LAB HEMETOLOGY METHOD 10/16/2024 11:07 AM [facility] MCV 93.5 79.0 - 98.0 FL LAB HEMETOLOGY METHOD 10/16/2024 11:07 AM [facility] MCH 27.6 27.0 - 32.0 pcg LAB HEMETOLOGY METHOD 10/16/2024 11:07 AM EDT [facility] MCHC 29.6(L) 32.0 - 37.0 g/dL LAB HEMETOLOGY METHOD 10/16/2024 11:07 AM EDT [facility] RDW 17.0(H) 11.0 - 15.0 % LAB HEMETOLOGY METHOD 10/16/2024 11:07 AM EDT [facility] Platelets 266 130 - 400 K/mcL LAB HEMETOLOGY METHOD 10/16/2024 11:07 AM EDT [facility] MPV 10.7 7.0 - 11.0 FL LAB HEMETOLOGY METHOD 10/16/2024 11:07 AM EDT [facility] NRBC 0.0 <1.0 % LAB HEMETOLOGY METHOD 10/16/2024 11:07 AM EDT [facility] NRBC Absolute 0.00 <0.10 K/mcL LAB HEMETOLOGY METHOD 10/16/2024 11:07 AM EDT [facility] Blood Venous blood specimen / Unknown Venipuncture / Unknown 10/16/2024 5:58 AM EDT 10/16/2024 10:43 AM EDT us Kandy Christina MD LAB BLOOD ORDERABLES Fin al Result [facility] [address] [place] [address], documented in this encounter Visit Diagnoses Diagnosis Venous insufficiency (chronic) (peripheral) Unspecified venous (peripheral) insufficiency documented in this encounter Care Teams Applications Support Engineer Relationship Specialty Start Date End Date Maty Darnell MD [address] [place] [address] Dr Maximo Arguello [place] PCP - General Internal Medicine 10/24/19 documented as of this encounter
--- OUTSIDE RECORDS SUMMARY | 2025-03-14 19:30 | XMS_ITS | Encounter Summary ---
Author Organization [facility] Address [address] [place] [address] Care Team Providers Care Home Economics Extension Worker Name Role Phone Maty Darnell MD Primary Care Provider Encounter Details Date Type Department Care Team (Late st Contact Info) Description 05/26/2024 Lab Requisition [facility] - Main Lab [address] [place] [address] Herminio Lee MD [address] [place] [address] Acute cough; Fever, unspecified Social History Tobacco [...] Procedure Name Priority Date/Time Associated Diagnosis Comments [id number], RSV, FLU A AND B QUALITATIVE RT-PCR, LOCAL REFERENCE LAB Routine 05/26/2024 7:00 AM EST Acute cough Fever, unspecified documented in this encounter Results * (ABNORMAL) [id number], RSV, Influenza A and B qualitative RT-PCR (05/26/2024 7:00 AM EST) SARS COV-2 Not Detected Not Detected LAB MOLECULAR DIAGNOSTICS METHOD 05/26/2024 3:08 PM EST [facility]) [facility] Comment: Disclaimer: The manner in which this information is used to guide patient care is the responsibility of the healthcare provider. Testing was performed using the [employer] m SARS-CoV-2 test. This test has [...] for Healthcare Providers can be found at: https://www.fda.gov/media/128570/download Fact sheet for Patients can be found at: https://www.fda.gov/media/849118/download Influenza A PCR Detected(A ) Not Detected LAB MOLECULAR DIAGNOSTICS METHOD 05/26/2024 3:08 PM [facility] Comment:This patient is posi tive for influenza A. If the patient is admitted, please order the Respiratory Virus Panel PCR (Epic ID: [id number]) so our lab can subtype the influenza A, per CDC recommendations. Influenza B PCR Not Detected Not Detected LAB MOLECULAR DIAGNOSTICS METHOD 05/26/2024 3:08 PM [facility] RSV PCR Not Detected Not Detected LAB MOLECULAR DIAGNOSTICS METHOD 05/26/2024 3:08 PM [facility] Swab Nasopharyngeal structure / Unknown Non-blood Collection / Unknown 05/26/2024 7:00 AM EST 05/26/2024 11:23 AM EST us Herminio Lee MD LAB MICROBIOLOGY - GENERAL O RDERABLES Final Result [facility] [address] [place] [address], documented in this encounter Visit Diagnoses Diagnosis Acute cough Fever, unspecified documented in this encounter Additional Health Concerns Infection Onset Date Last Indicated Resolved Time Respiratory Rule-Out 05/26/2024 05/26/202405/26/2 025 3:08 PM EST Influenza 05/26/2024 05/26/2024 06/19/2024 7:04 PM EDT documented as of this encounter Care Teams Home Economics Extension Worker Relationship Specialty Start Date End Date Maty Darnell MD [address] [place] [address] [address] [place] Arguello PCP - General Internal Medicine 10/24/19 documented as of this encounter
--- OUTSIDE RECORDS SUMMARY | 2025-03-14 19:30 | XMS_ITS | Encounter Summary ---
Author Organization [employer] Address [address] 7 [place] [address] Care Team Providers Care Fur Dry Cleaner Name Role Phone Rick Arcos MD Primary Care Prov ider Reason for Visit * Reason Onset Date Comments Appointment 08/22/2022 Encounter Details Date Type Department Care Team ([facility] st Contact Info) Description 08/22/2022 Telephone [facility] [address] [place], [place] [phone] Martín Dumont DDS [address] [place], [place] [phone] Appointment Social History Tobacco Use Types Packs/Day [...] on filedocumented in this encounter Care Teams Fur Dry Cleaner Relationship Specialty Start Date End Date Rick Arcos MD [address] [place], [place] [phone] PCP - General Internal Medicine 05/28/24 Rodrick Arguello 06/09/24 documented as of this encounter
--- OUTSIDE RECORDS SUMMARY | 2025-03-14 19:30 | XMS_ITS | Clinical Summary ---
Author Organization [facility] Address [address] [place] [address] Care Team Providers Care Cardiology Physician Name Role Phone Unavailable Primary Care Provider [...]
--- OUTSIDE RECORDS SUMMARY | 2025-03-14 19:30 | XMS_ITS | Encounter Summary ---
Author Organization [facility] Address [address] [place] [address] Care Team Providers Care Caster Investment Casting Name Role Phone Maty Darnell MD Primary Care Provider [phone] Encounter Details Date Type Department Care Team (Late st Contact Info) Description 04/02/2024 Lab Requisition [facility] - Main Lab [address] [place] [address] Herminio Lee MD [address] [place] [address] Unspecified atrial fibrillation (CMS/HCC V24, CMS/HCC V28) [...] LAB CHEMISTRY METHOD 04/03/2024 10:04 AM EST [facility] Potassium 4.4 3.5 - 5.5 mmol/L LAB CHEMISTRY METHOD 04/03/2024 10:[address] [facility] Comment:Hemolysis present Chloride 107 96 - 110 mmol/L LAB CHEMISTRY METHOD 04/03/2024 10:[address] [facility] CO2 28 21 - 32 mmol/L LAB CHEMISTRY METHOD 04/03/2024 10:[address] [facility] Anion Gap 4 3 - 11 LAB CHEMISTRY METHOD 04/03/2024 10:[address] [facility] Glucose 85 70 - 100 mg/dL LAB CHEMISTRY METHOD 04/03/2024 10:[address] [facility] BUN 18 5 - 25 mg/dL LAB CHEMISTRY METHOD 04/03/2024 10:[address] [facility] Creatinine 1.03 0.70 - 1.30 mg/dL LAB CHEMISTRY METHOD 04/03/2024 10:[address] [facility] eGFR 81 >=60 mL/min/1. 73m2 LAB CHEMISTRY METHOD 04/03/2024 10:[address] [facility] Comment:Calculation based on the Chronic Kidney Disease Epidemiology Collaboration (CKD-EPI) equation refit without adjustment for race. BUN/Creatinine Ratio 17.5 LAB CHEMISTRY METHOD 04/03/2024 10:[address] [facility] Calcium 8.7 8.5 - 10.5 mg/dL LAB CHEMISTRY METHOD 04/03/2024 10:[address] [facility] AST (SGOT) 27 10 - 42 unit/L LAB CHEMISTRY METHOD 04/03/2024 10:[address] [facility] Comment:Hemolysis present ALT (SGPT) 22 10 - 60 unit/L LAB CHEMISTRY METHOD 04/03/2024 10:[address] [facility] Alkaline Phosphatase 96 42 - 121 unit/L LAB CHEMISTRY METHOD 04/03/2024 10:[address] [facility] Total Protein 7.0 6.0 - 8.0 g/dL LAB CHEMISTRY METHOD 04/03/2024 10:[address] [facility] Albumin 3.1(L) 3.2 - 5.0 g/dL LAB CHEMISTRY METHOD 04/03/2024 10:[address] [facility] Total Bilirubin 0.3 0.0 - 1.4 mg/dL LAB CHEMISTRY METHOD 04/03/2024 10:[address] [facility] Blood Venous blood specimen / Unknown Venipuncture / Unknown 04/03/2024 7:26 AM EST 04/03/2024 9:41 AM EST us Herminio Lee MD LAB BLOOD ORDERABLES Final R esult [facility] [address] [place] [address], * (ABNORMAL) Complete blood count (04/03/2024 7:26 AM EST) WBC 7.0 4.8 - 10.8 K/mcL LAB HEMETOLOGY METHOD 04/03/2024 9:[address] [facility] RBC 4.00(L) 4.50 - 5.50 M/[facility] LAB HEMETOLOGY METHOD 04/03/2024 9:[address] [facility] Hemoglobin 12.2(L) 13.5 - 17.5 g/dL LAB HEMETOLOGY METHOD 04/03/2024 9:[address] [facility] Hematocrit 40.3(L) 42.0 - 54.0 % LAB HEMETOLOGY METHOD 04/03/2024 9:[address] [facility] MCV 100.0(H) 79.0 - 98.0 FL LAB HEMETOLOGY METHOD 04/03/2024 9:[address] [facility] MCH 30.3 27.0 - 32.0 pcg LAB HEMETOLOGY METHOD 04/03/2024 9:49 AM EST [facility] MCHC 30.3(L) 32.0 - 37.0 g/dL LAB HEMETOLOGY METHOD 04/03/2024 9:[address] [facility] RDW 15.3(H) 11.0 - 15.0 % LAB HEMETOLOGY METHOD 04/03/2024 9:49 AM EST [facility] Platelets 326 130 - 400 K/mcL LAB HEMETOLOGY METHOD 04/03/2024 9:[address] [facility] MPV 10.2 7.0 - 11.0 FL LAB HEMETOLOGY METHOD 04/03/2024 9:[address] [facility] NRBC 0.0 <1.0 % LAB HEMETOLOGY METHOD 04/03/2024 9:[address] [facility] NRBC Absolute 0.00 <0.10 K/mcL LAB HEMETOLOGY METHOD 04/03/2024 9:[address] [facility] Blood Venous blood specimen / Unknown Venipuncture / Unknown 04/03/2024 7:26 AM EST 04/03/2024 9:42 AM EST us Herminio Lee MD LAB BLOOD ORDERABLES Final R esult [facility] [address] [place] [address], documented in this encounter Visit Diagnoses Diagnosis Unspecified atrial fibrillation (CMS/HCC V24, CMS/HCC V28) documented in this encounter Additional Health Concerns Infection Onset Date Last Indicated Resolved Time Respiratory Rule-Out 05/26/2024 05/26/2024 025 3:08 PM EST Influenza 05/26/2024 05/26/2024 06/19/2024 7:04 PM EDT documented as of this encounter Care Teams Caster Investment Casting Relationship Specialty Start Date End Date Maty Darnell MD [address] [place] [address] Dr [address] ANNEL Arguello PCP - General Internal Medicine 10/24/19 documented as of this encounter
--- OUTSIDE RECORDS SUMMARY | 2025-03-14 19:30 | XMS_ITS | Encounter Summary ---
Author Organization [facility] Address [email or web address] [place] [address] Phone Care Team Providers Care Director Of Manufacturing Name Role Phone Pcp, Unknown Primary Care Provider Unavailabl e Encounter Details Date Type Department Care Team ([facility] st Contact Info) Description 02/22/2025 Lab Requisition [facility] Lab Main [address] [place] [address] Cyrus Carnes MD [address] [facility] [place] [address] [email or web address] Illness, unspecified Social History Tobacco Use Types Packs/Day [...] Today 02/22/2025 8:00 AM EST Illness, unspecified documented in this encounter Results * (ABNORMAL) Comprehensive Metabolic Panel (CMP) (02/22/2025 8:00 AM EST) Sodium 140 136 - 145 mmol/L 02/22/2025 12:13 PM [facility] Potassium 4.4 3.4 - 5.1 mmol/L 02/22/2025 12:13 PM [facility] Chloride 105 98 - 107 mmol/L 02/22/2025 12:13 PM [facility] CO2 25 20 - 31 mmol/L 02/22/2025 12:13 PM [facility] Anion Gap 10 3 - 17 mmol/L 02/22/2025 12:13 PM [facility] BUN 27(H) 6 - 23 mg/dL 02/22/2025 12:13 PM [facility] Creatinine 0.80 0.60 - 1.30 mg/dL 02/22/2025 12:13 PM [facility] eGFR 98 >59 mL/min/1.7 3m2 02/22/2025 12:13 PM [facility] Comment:Estimated glomerular filtration rate calculated using the CKD-EPI refit equation. Glucose 92 70 - 99 mg/dL 02/22/2025 12:13 PM [facility] Calcium 8.7 8.5 - 10.5 mg/dL 02/22/2025 12:13 PM [facility] AST 17 <40 U/L 02/22/2025 12:13 PM [facility] ALT 21 <50 U/L 02/22/2025 12:13 PM [facility] Alkaline Phosphatase 103 40 - 130 U/L 02/22/2025 12:13 PM [facility] Bilirubin, Total 0.3 0.0 - 1.2 mg/dL 02/22/2025 12:13 PM [facility] Total Protein 6.7 6.4 - 8.3 g/dL 02/22/2025 12:13 PM [facility] Albumin 3.8 3.5 - 5.2 g/dL 02/22/2025 12:13 PM [facility] Globulin 2.9 1.9 - 4.1 g/dL 02/22/2025 12:13 PM [facility] Blood (Blood) 02/22/2025 8:0 0 AM EST 02/22/2025 9:11 AM EST us Cyrus Carnes MD LAB BLOOD BKR ORDERABLES Final R esult [facility] [address] [place] [address] documented in this encounter Visit Diagnoses Diagnosis Illness, unspecified documented in this encounter Care Teams Director Of Manufacturing Relationship Specialty Start Date End Date Pcp, Unknown PCP - General 05/01/13 documented as of this encounter Additional Source Comments The information contained in this document represents components of the legal health record. It is not the complete legal health record.[facility]
--- OUTSIDE RECORDS SUMMARY | 2025-03-14 19:30 | XMS_ITS | Encounter Summary ---
Author Organization [facility] Address [address] [place] [address] Phone Care Team Providers Care Conventions Reservationist Name Role Phone Pcp, Unknown Primary Care Provider Unavailabl e Encounter Details Date Type Department Care Team (Late st Contact Info) Description 02/10/2025 Lab Requisition [facility] Lab Main [address] [place] [address] Cyrus Carnes MD [address] [facility], [address] [place] [address] [email or web address] Hyperlipidemia, unspecified; Venous insufficiency (chronic) (peripheral) Social History Tobacco [...] Date/Time Associated Diagnosis Comments CBC AND DIFFERENTIAL Today 02/10/2025 10:00 AM EST Hyperlipidemia, unspecified Venous insufficiency (chronic) (peripheral) CBC AND DIFFERENTIAL Today 02/10/2025 10:00 AM EST Hyperlipidemia, unspecified Venous insufficiency (chronic) (peripheral) BASIC METABOLIC PANEL (BMP) Today 02/10/2025 10:00 AM EST Hyperlipidemia, unspecified Venous insufficiency (chronic) (peripheral) documented in this encounter Results * (ABNORMAL) CBC and Differential (02/10/2025 10:00 AM EST) WBC 7.13 4.00 - 11.00 K/uL 02/10/2025 12:20 PM [facility] RBC 4.25(L) 4.50 - 5.90 M/uL 02/10/2025 12:20 PM [facility] Hemoglobin 11.8(L) 13.5 - 17.5 g/dL 02/10/2025 12:20 PM [facility] Hematocrit 39.1(L) 41.0 - 53.0 % 02/10/2025 12:20 PM [facility] MCV 92.0 80.0 - 100.0 fL 02/10/2025 12:20 PM [facility] MCH 27.8 27.0 - 31.0 pg 02/10/2025 12:20 PM [facility] MCHC 30.2(L) 32.0 - 36.0 g/dL 02/10/2025 12:20 PM [facility] MPV 10.9 8.4 - 12.0 fL 02/10/2025 12:20 PM [facility] RDW-CV 18.4(H) 11.5 - 14.5 % 02/10/2025 12:20 PM [facility] PLT 213 150 - 450 K/uL 02/10/2025 12:20 PM [facility] Neutrophils 79.1 % 02/10/2025 12:20 PM [facility] Lymphocytes 10.9 % 02/10/2025 12:20 PM [facility] Monocytes 7.2 % 02/10/2025 12:20 PM [facility] Eosinophils 1.5 % 02/10/2025 12:20 PM [facility] Basophils 0.7 % 02/10/2025 12:20 PM [facility] Imm Grans 0.6 % 02/10/2025 12:20 PM [facility] NRBC 0.0 <=0.0 /100 WBCs 02/10/2025 12:20 PM [facility] Absolute Neutrophils 5.64 1.92 - 7.60 K/uL 02/10/2025 12:20 PM [facility] Absolute Lymphocytes 0.78 0.72 - 4.10 K/uL 02/10/2025 12:20 PM [facility] Absolute Monocytes 0.51 0.16 - 1.10 K/uL 02/10/2025 12:20 PM [facility] Absolute Eosinophils 0.11 0.00 - 0.50 K/uL 02/10/2025 12:20 PM [facility] Absolute Basophils 0.05 0.00 - 0.15 K/uL 02/10/2025 12:20 PM [facility] Absolute Imm Grans 0.04 0.00 - 0.09 K/uL 02/10/2025 12:20 PM [facility] Absolute NRBC 0.00 <=0.00 K cells/uL 02/10/2025 12:20 PM [facility] Absolute Neutrophils 5.64 1.92 - 7.60 K/uL 02/10/2025 12:20 PM [facility] Comment:Automated cell count . Manual ANC may differ if performed. Diff Type Auto 02/10/2025 12:20 PM [facility] Blood (Blood) 02/10/2025 10: 00 AM EST 02/10/2025 11:23 AM EST us Cyrus Carnes MD LAB BLOOD BKR ORDERABLES Final R esult [facility] [address] [place] [address] * (ABNORMAL) Basic Metabolic Panel (BMP) (02/10/2025 10:00 AM EST) Sodium 140 136 - 145 mmol/L 02/10/2025 1:38 PM [facility] Potassium 3.8 3.4 - 5.1 mmol/L 02/10/2025 1:38 PM [facility] Comment:NOTE: Specimen hemol yzed. Results may be falsely increased. Chloride 100 98 - 107 mmol/L 02/10/2025 1:38 PM [facility] CO2 26 20 - 31 mmol/L 02/10/2025 1:38 PM [facility] Anion Gap 14 3 - 17 mmol/L 02/10/2025 1:38 PM [facility] BUN 17 6 - 23 mg/dL 02/10/2025 1:38 PM [facility] Creatinine 1.10 0.60 - 1.30 mg/dL 02/10/2025 1:38 PM [facility] eGFR 74 >59 mL/min/1.7 3m2 02/10/2025 1:38 PM [facility] Comment:Estimated glomerular filtration rate calculated using the CKD-EPI refit equation. Glucose 113(H) 70 - 99 mg/dL 02/10/2025 1:38 PM [facility] Calcium 8.3(L) 8.5 - 10.5 mg/dL 02/10/2025 1:38 PM [facility] Blood (Blood) 02/10/2025 10: 00 AM EST 02/10/2025 11:23 AM EST us Cyrus Carnes MD LAB BLOOD BKR ORDERABLES Final R esult [address] [address] documented in this encounter Visit Diagnoses Diagnosis Hyperlipidemia, unspecified Venous insufficiency (chronic) (peripheral) Unspecified venous (peripheral) insufficiency documented in this encounter Care Teams Conventions Reservationist Relationship Specialty Start Date End Date Pcp, Unknown PCP - General 05/01/13 documented as of this encounter Additional Source Comments The information contained in this document represents components of the legal health record. It is not the complete legal health record.[facility]
--- OUTSIDE RECORDS SUMMARY | 2025-03-14 19:30 | XMS_ITS | Encounter Summary ---
Author Organization [facility] Address [address] [place] [address] Care Team Providers Care Parcel Post Clerk Name Role Phone Maty Darnell MD Primary Care Provider [phone] Encounter Details Date Type Department Care Team (Late st Contact Info) Description 03/26/2024 Lab Requisition [facility] - Main Lab [address] [facility] [place] [address] Herminio Lee MD [address] [place] [address] Cellulitis, unspecified; Unspecified atrial fibrillation (CMS/HCC V24, CMS/HCC V28); Other correction (current) drug therapy Social History Tobacco Use [...] unspecified Unspecified atrial fibrillation (CMS/HCC) Other terminal superintendent (current) drug therapy BASIC METABOLIC PANEL Routine 03/26/2024 8:15 AM EST Cellulitis, unspecified Unspecified atrial fibrillation (CMS/HCC) Other terminal superintendent (current) drug therapy documented in this encounter Results * Basic metabolic panel (03/26/2024 8:15 AM EST) Sodium 140 133 - 145 mmol/L LAB CHEMISTRY METHOD 03/26/2024 1:05 PM [facility] Potassium 4.1 3.5 - 5.5 mmol/L LAB CHEMISTRY METHOD 03/26/2024 1:05 PM [facility] Chloride 103 96 - 110 mmol/L LAB CHEMISTRY METHOD 03/26/2024 1:05 PM [facility] CO2 30 21 - 32 mmol/L LAB CHEMISTRY METHOD 03/26/2024 1:05 PM [facility] Anion Gap 7 3 - 11 LAB CHEMISTRY METHOD 03/26/2024 1:05 PM [facility] Glucose 88 70 - 100 mg/dL LAB CHEMISTRY METHOD 03/26/2024 1:05 PM [facility] BUN 13 5 - 25 mg/dL LAB CHEMISTRY METHOD 03/26/2024 1:05 PM [facility] Creatinine 0.95 0.70 - 1.30 mg/dL LAB CHEMISTRY METHOD 03/26/2024 1:05 PM [facility] eGFR 89 >=60 mL/min/1. 73m2 LAB CHEMISTRY METHOD 03/26/2024 1:05 PM [facility] Comment:Calculation based on the Chronic Kidney Disease Epidemiology Collaboration (CKD-EPI) equation refit without adjustment for race. BUN/Creatinine Ratio 13.7 LAB CHEMISTRY METHOD 03/26/2024 1:05 PM [facility] Calcium 8.7 8.5 - 10.5 mg/dL LAB CHEMISTRY METHOD 03/26/2024 1:05 PM [facility] Blood Venous blood specimen / Unknown Venipuncture / Unknown 03/26/2024 8:15 AM EST 03/26/2024 11:31 AM EST us Herminio Lee MD LAB BLOOD ORDERABLES Final R esult [facility] [address] [place] [address], * (ABNORMAL) Complete blood count (03/26/2024 8:15 AM EST) [facility] WBC 6.6 4.8 - 10.8 K/mcL LAB HEMETOLOGY METHOD 03/26/2024 12:43 PM EST [facility] RBC 4.20(L) 4.50 - 5.50 M/mcL LAB HEMETOLOGY METHOD 03/26/2024 12:43 PM [facility] Hemoglobin 12.8(L) 13.5 - 17.5 g/dL LAB HEMETOLOGY METHOD 03/26/2024 12:43 PM [facility] Hematocrit 42.1 42.0 - 54.0 % LAB HEMETOLOGY METHOD 03/26/2024 12:43 PM [facility] MCV 101.0(H) 79.0 - 98.0 FL LAB HEMETOLOGY METHOD 03/26/2024 12:43 PM [facility] MCH 30.7 27.0 - 32.0 pcg LAB HEMETOLOGY METHOD 03/26/2024 12:43 PM [facility] MCHC 30.4(L) 32.0 - 37.0 g/dL LAB HEMETOLOGY METHOD 03/26/2024 12:43 PM [facility] RDW 15.3(H) 11.0 - 15.0 % LAB HEMETOLOGY METHOD 03/26/2024 12:43 PM [facility] Platelets 246 130 - 400 K/mcL LAB HEMETOLOGY METHOD 03/26/2024 12:43 PM [facility] MPV 10.5 7.0 - 11.0 FL LAB HEMETOLOGY METHOD 03/26/2024 12:43 PM [facility] NRBC 0.0 <1.0 % LAB HEMETOLOGY METHOD 03/26/2024 12:43 PM EST [facility] NRBC Absolute 0.00 <0.10 K/mcL LAB HEMETOLOGY METHOD 03/26/2024 12:43 PM EST [facility] Blood Venous blood specimen / Unknown Venipuncture / Unknown 03/26/2024 8:15 AM EST 03/26/2024 11:31 AM EST us Herminio Lee MD LAB BLOOD ORDERABLES Final R esult [facility]) [facility] [address] [place] [address], documented in this encounter Visit Diagnoses Diagnosis Cellulitis, unspecified Unspecified atrial fibrillation (CMS/HCC V24, CMS/HCC V28) Other terminal superintendent (current) drug therapy documented in this encounter Additional Health Concerns Infection Onset Date Last Indicated Resolved Time Respiratory Rule-Out 05/26/2024 05/26/2024 025 3:08 PM EST Influenza 05/26/2024 05/26/2024 06/19/2024 7:04 PM EDT documented as of this encounter Care Teams Parcel Post Clerk Relationship Specialty Start Date End Date Maty Darnell MD [address] [place] [address] [address] ANNEL Arguello PCP - General Internal Medicine 10/24/19 documented as of this encounter
--- OUTSIDE RECORDS SUMMARY | 2025-03-14 19:30 | XMS_ITS | Clinical Summary ---
Author Organization [facility] Address [address] [facility] [address] [place] [address] Care Team Providers Care Fabricator Special Items Name Role Phone Rick Arcos MD Primary [...] Once per day. 30 tablet 1 5 Active omeprazole (PriLOSEC) [address] capsule Take 1 capsule (40 mg) by mouth before breakfast. Do not crush or chew. 90 capsule 3 5 05/22/19 Active spironolactone (Aldactone) 50 MG tablet Take 1 tablet (50 mg) by mouth Once per day. 90 tablet 5 Active tamsulosin (Flomax) 0.4 MG 24 hr capsule Take 1 capsule (0.4 mg) by mouth Once per day. 90 capsule 3 5 05/22/19 Active torsemide (Demadex) 20 MG tablet Take 1 tablet (20 mg) by mouth 2 times daily. 180 tablet 3 5 05/22/19 Active venlafaxine XR (Effexor XR) 37.5 MG 24 hr capsule Take 1 capsule (37.5 mg) by mouth Once per day. 90 capsule 3 5 05/22/19 Active vilazodone (Viibryd) 20 MG tablet Take 2 tablets (40 mg) by mouth with evening meal. 7 tablet 3 5 Active zolpidem (Ambien) 10 MG tablet Take 1 tablet (10 mg) by mouth if needed at bedtime for sleep. 30 tablet 5 Active senna (Senokot) 8.6 MG tablet TAKE TWO TABLETS ONCE DAILY 60 tablet 1 5 Active albuterol 108 (90 Base) MCG/ACT inhaler 5 Active dilTIAZem CD (Cardizem CD) 120 MG 24 hr capsule Take 1 capsule by mouth Once per day. 5 Active gabapentin (Neurontin) 600 MG tablet Take 1 tablet by mouth 3 times daily. 5 Active hydrocortisone 2.5 % cream Use as directed 4 Active hydrOXYzine HCl (Atarax) 25 MG tablet Take 1 tablet by mouth every 8 (eight) hours if needed. 4 Active ipratropium-albu terol (Duo-Neb) 0.5-2.5 mg/3 mL nebulizer solution Take 3 mL by nebulization. 5 Active nystatin (Mycostatin) cream Apply 1 Application. topically if needed. 4 Active nystatin-triamci nolone (Mycolog II) cream Apply 1 Application. topically 2 times daily. 5 Active permethrin (Elimite) 5 % cream Apply 1 Application. topically 1 (one) time. 4 Active QUEtiapine (SEROquel) 25 MG tablet Take 1 tablet by mouth 2 times daily. 4 Active triamcinolone (Kenalog) 0.1 % cream Apply topically. 4 Active oxyCODONE (Roxicodone) 5 MG immediate release tablet Take 1 tablet by mouth 6 times daily as needed OR take 2 tablets by mouth every morning and 1 tablet three times daily as directed 5 Active metoprolol succinate XL (Toprol-XL) 50 MG 24 hr tablet Take 3 tablets by mouth 2 times daily. 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 ([facility]/HCC) 05/14/2024 Mood disorder 05/14/2024 Atrial fibrillation, chronic ([facility]) Alcohol dependence in remission ([facility]) 2024 Secondary hypercoagulable state 05/14/2024 BMI 40.0-44.9, adult ([facility]) 05/14/2024 Alcoholic hepatitis, unspecified whether ascites present 05/14/2024 Encounter for medical examination to establish c are 05/05/2024 Assessment & Plan (05/05/2024 11:21 AM EST): Patient lives on a snf 3 years [facility] Pmhx: Afib, severe neuropathy, Pshx: exploratory laparotomy due to obstruction 2019, stomach bypass 1994, deviated septum, prostate 1989', plantar fasciatis both feet, All:- Meds: as above Immunizations Immunization Administration Dates Next Due Influenza, IIV3, injectable 01/09/2016, 0 Pfizer Covid-19 Vaccine 12+ 08/10/2021,,07/21/2020 Pneumococcal Polysaccharide PPSV23 09/27/2005 Pneumococcal, Unspecified 02/23/2018 [...] of 2 - Risk 2-dose series) 1977 RSV Patients and Patients Aged 60 years or older (1 - Risk 50-74 years 1-dose series) 2008 Zoster Vaccines (1 of 2) 2008 Hepatitis B Vaccines (1 of 3 - Risk 3-dose series) 2018 Pneumococcal Vaccine: 50+ Years (2 of 2 - PCV) 02/23/2019 02/23/2018, 09/27/2005 COVID-19 Vaccine (4 - 2024-2 6 season) 2024 08/10/2021, 08/18/2020, 07/21/2020 Influenza Vaccine (#1) 2024 6, 04/05/2010 Tobacco Screening 05/14/2025 05/14/2024 HIB [...] patient's age to complete this topic Insurance [facility] STANDARD MEDICARE [place] STAND AD[place] Care Teams Fabricator Special Items Relationship Specialty Start Date End Date Rick Arcos MD [address] [place] [id number] PCP - General Internal Medicine 05/28/24 Rodrick Arguello 06/09/24
--- OUTSIDE RECORDS SUMMARY | 2025-03-14 19:30 | XMS_ITS | Clinical Summary ---
Author Organization [address] Address [address] [place] [address] Phone Care Team Providers Care Materials Handling Equipment Operator Name Role Phone Maty Darnell MD Primary Care Provider [phone] Medical History Medical History Date Comments A-fib [...] Date Last Done Comments Colorectal Cancer Screening: Colonoscopy 1958 DTaP,Tdap,and Td Vaccines (1 - Tdap) 1977 Hepatitis A Vaccines (1 of 2 - Risk 2-dose series) 1977 RSV Immunization Adult Patients (1 - Risk 50-74 years 1-dose series) 2008 Zoster Vaccines (1 of 2) 2008 Hepatitis B Vaccines (1 of 3 - Risk 3-dose series) 2018 Pneumococcal Vaccine: 50+ Years (2 of 2 - PCV) 02/23/2019 02/23/2018, 09/27/2005 Hepatitis C Screening 03/11/2022 Medicare Annual Wellness Visit 03/11/2022 Social Influencers of Health Screening 03/11/2022 Falls Risk Assessment 2023 Depression Screening 04/08/2024 COVID-19 Vaccine ( season) 2024 08/10/2021, 08/18/2020, 07/21/2020 Influenza Vaccine (#1) 2024 01/09/2016, 2009 Hypertension/CHF/CAD Annual BMP Blood Test 10/16/2025 10/16/2024, 09/11/2024, 06/01/2024, Additional history exists Cholesterol Screening (Lipid Panel) 09/11/2029 09/11/2024 HIB Vaccines Aged Out No longer eligi [...] Date/Time Associated Diagnosis Comments COMPREHENSIVE METABOLIC PANEL Routine 10/16/2024 5:58 AM EDT Venous insufficiency (chronic) (peripheral) LIPID PANEL WITH REFLEX TO DIRECT LDL Routine 09/11/2024 7:06 AM EDT Unspecified atrial fibrillation (CMS/HCC V24, CMS/HCC V28) Acute kidney failure, unspecified (CMS/HCC V24) Obesity, unspecified from Last 3 Months or Most Recently Relevant to Health Maintenance Results * (ABNORMAL) Comprehensive metabolic panel (10/16/2024 5:58 AM EDT) Sodium 139 133 - 145 mmol/L LAB CHEMISTRY METHOD 10/16/2024 11:40 AM EDT [facility] Potassium 3.5 3.5 - 5.5 mmol/L LAB CHEMISTRY METHOD 10/16/2024 11:40 AM [facility] Chloride 103 96 - 110 mmol/L LAB CHEMISTRY METHOD 10/16/2024 11:40 AM [facility] CO2 29 21 - 32 mmol/L LAB CHEMISTRY METHOD 10/16/2024 11:40 AM [facility] Anion Gap 7 3 - 11 LAB CHEMISTRY METHOD 10/16/2024 11:40 AM [facility] Glucose 100 70 - 100 mg/dL LAB CHEMISTRY METHOD 10/16/2024 11:40 AM [facility] BUN 21 5 - 25 mg/dL LAB CHEMISTRY METHOD 10/16/2024 11:40 AM [facility] Creatinine 1.03 0.70 - 1.30 mg/dL LAB CHEMISTRY METHOD 10/16/2024 11:40 AM [facility] eGFR 80 >=60 mL/min/1. 73m2 LAB CHEMISTRY METHOD 10/16/2024 11:40 AM [facility] Comment:Calculation based on the Chronic Kidney Disease Epidemiology Collaboration (CKD-EPI) equation refit without adjustment for race. BUN/Creatinine Ratio 20.4 LAB CHEMISTRY METHOD 10/16/2024 11:40 AM [facility] Calcium 8.8 8.5 - 10.5 mg/dL LAB CHEMISTRY METHOD 10/16/2024 11:40 AM [facility] AST (SGOT) 28 10 - 42 unit/L LAB CHEMISTRY METHOD 10/16/2024 11:40 AM [facility] ALT (SGPT) 40 10 - 60 unit/L LAB CHEMISTRY METHOD 10/16/2024 11:40 AM [facility] Alkaline Phosphatase 100 42 - 121 unit/L LAB CHEMISTRY METHOD 10/16/2024 11:40 AM [facility] Total Protein 6.4 6.0 - 8.0 g/dL LAB CHEMISTRY METHOD 10/16/2024 11:40 AM EDT [facility] Albumin 3.0(L) 3.2 - 5.0 g/dL LAB CHEMISTRY METHOD 10/16/2024 11:40 AM T [facility] Total Bilirubin 0.4 0.0 - 1.4 mg/dL LAB CHEMISTRY METHOD 10/16/2024 11:40 AM [facility] Blood Venous blood specimen / Unknown Venipuncture / Unknown 10/16/2024 5:58 AM EDT 10/16/2024 10:43 AM EDT us Kandy Christina MD LAB BLOOD ORDERABLES Fin al Result [facility] [address] [place] [address], [place] [phone] * (ABNORMAL) Lipid panel with reflex to direct LDL (09/11/2024 7:06 AM EDT) Cholesterol 132 0 - 200 mg/dL LAB CHEMISTRY METHOD 09/11/2024 11:10 AM [facility] Triglycerides 123 0 - 150 mg/dL LAB CHEMISTRY METHOD 09/11/2024 11:10 AM [facility] HDL 29(L) >=40 mg/dL LAB CHEMISTRY METHOD 09/11/2024 11:10 AM [facility] LDL Calculated 78 0 - 100 mg/dL LAB CHEMISTRY METHOD 09/11/2024 11:10 AM [facility] VLDL Cholesterol Jean Marie 24.6 mg/dL LAB CHEMISTRY METHOD 09/11/2024 11:10 AM [facility] Non HDL Chol. (LDL+VLDL) 103 <145 mg/dL LAB CHEMISTRY METHOD 09/11/2024 11:10 AM [facility] Chol/HDL Ratio 4.6(H) 0.0 - 4.4 LAB CHEMISTRY METHOD 09/11/2024 11:10 AM [facility] Blood Venous blood specimen / Unknown Venipuncture / Unknown 09/11/2024 7:06 AM EDT 09/11/2024 8:41 AM EDT us Alonso Mckoy MD LAB BLOOD ORDERABLES Final Resu lt [facility] ([facility]) [facility] [address] [place] [address], from Last 3 Months or Most Recently Relevant to Health Maintenance Insurance MEDICARE MEDICAID - [place] Care Teams Materials Handling Equipment Operator Relationship Specialty Start Date End Date Maty Darnell MD [address] [place] [address] [address] [place] PCP - General Internal Medicine 10/24/19
--- OUTSIDE RECORDS SUMMARY | 2025-03-14 19:30 | XMS_ITS | Encounter Summary ---
Author Organization [facility] Address [address] [place] [address] Care Team Providers Care Oyster Planter Name Role Phone Maty Darnell MD Primary Care Provider [phone] Encounter Details Date Type Department Care Team (Late st Contact Info) Description 10/19/[address] [facility] - Main Lab [address] [facility] [place] [address] Kandy Christina MD [address] [phone] Unspecified systolic (congestive) heart failure (CMS/HCC V24, CMS/HCC V28) Social History Tobacco [...] Procedure Name Priority Date/Time Associated Diagnosis Comments DIGOXIN LEVEL Routine 10/19/2024 6:09 AM EDT Unspecified systolic (congestive) heart failure (CMS/HCC V24, CMS/HCC V28) documented in this encounter Results * Digoxin level (10/19/2024 6:09 AM EDT) Digoxin Lvl 0.8 0.5 - 2.0 ng/mL LAB CHEMISTRY METHOD 10/19/2024 3:11 PM EDT [facility] Blood Venous blood specimen / Unknown Venipuncture / Unknown 10/19/2024 6:09 AM EDT 10/19/2024 10:38 AM EDT us Kandy Christina MD LAB BLOOD ORDERABLES Fin al Result [facility] ([facility]) [facility] [address] [place] [address], documented in this encounter Visit Diagnoses Diagnosis Unspecified systolic (congestive) heart failure (CMS/HCC V24, CMS/HCC V28) documented in this encounter Care Teams Oyster Planter Relationship Specialty Start Date End Date Maty Darnell MD [address] [place] [address] [address] [place] PCP - General Internal Medicine 10/24/19 documented as of this encounter
--- OUTSIDE RECORDS SUMMARY | 2025-03-14 19:30 | XMS_ITS | Clinical Summary ---
Author Organization [facility] Address [address] [place] [address] Care Team Providers Care Manager Advanced Name Role Phone Provider, Marlee MCKEE Primary [...] Health Maintenance Due Date Last Done Comments Advance Care Planning 1960 Hepatitis C Virus Screening 1960 DTaP/Tdap/Td Vaccines (1 - Tdap) 1977 Pneumococcal Vaccines 50+ (1 of 1 - PCV) 2008 Zoster (Shingles) Vaccine (1 of 2) 2008 COVID-19 Vaccine ( - 2023-2 5 season) 2024 RSV Vaccine 50 years and old er and Patients (1 - 1-dose 75+ series) 2033 Hepatitis B Vaccines Aged Out No long er eligible based on patient's age to complete this topic Care Teams Manager Advanced Relationship Specialty Start Date End Date Marlee Lipscomb MD PCP - General 07/16/13
--- OUTSIDE RECORDS SUMMARY | 2025-03-14 19:30 | XMS_ITS | Encounter Summary ---
Author Organization [facility] Address [address] [place] [address] Phone Care Team Providers Care Engineering Programmer Name Role Phone Pcp, Unknown Primary Care Provider Unavailabl e Encounter Details Date Type Department Care Team (Late st Contact Info) Description 12/25/2021 Procedure Pass [facility], Ct Scan - [facility] [address] [place] [address] Social History Tobacco Use Types Packs/Day Years [...] 12:27 AM EDT Catarina Wright RN * [place] Suicide Severity Rating Scale (Screener/Recent Self-Report) Question [...] on filedocumented in this encounter Care Teams Engineering Programmer Relationship Specialty Start Date End Date Pcp, Unknown PCP - General 05/01/13 documented as of this encounter Additional Source Comments The information contained in this document represents components of the legal health record. It is not the complete legal health record.[facility]
--- OUTSIDE RECORDS SUMMARY | 2025-03-14 19:30 | XMS_ITS | Encounter Summary ---
Author Organization [employer] Address [address] [facility] 7t [place] [address] Care Team Providers Care Special Education Educational Assistant Name Role Phone Rick Arcos MD Primary Care Prov ider Encounter Details Date Type Department Care Team (Latest Contact Info) Description 11/14/2021 Abstract [facility] CONVERSIONS Dental, Provider, DDS Social History Tobacco [...] on filedocumented in this encounter Care Teams Special Education Educational Assistant Relationship Specialty Start Date End Date Rick Arcos MD [address] [place] [address] PCP - General Internal Medicine 05/28/24 [address] 06/09/24 documented as of this encounter
--- OUTSIDE RECORDS SUMMARY | 2025-03-14 19:30 | XMS_ITS | Encounter Summary ---
Author Organization [facility] Address [address] [place] [address] Care Team Providers Care Banquet Line Cook Name Role Phone Maty Darnell MD Primary Care Provider [phone] Encounter Details Date Type Department Care Team (Late st Contact Info) Description 09/11/2024 Lab Requisition [facility] - Main Lab [address] [facility] [place] [address] Alonso Mckoy MD [address] [place] [address] Unspecified atrial fibrillation (CMS/HCC V24, CMS/HCC V28); Acute kidney failure, unspecified (CMS/HCC V24); Obesity, unspecified Social History Tobacco Use Types Packs/Day [...] Procedure Name Priority Date/Time Associated Diagnosis Comments LIPID PANEL WITH REFLEX TO DIRECT LDL Routine 09/11/2024 7:06 AM EDT Unspecified atrial fibrillation (CMS/HCC V24, CMS/HCC V28) Acute kidney failure, unspecified (CMS/HCC V24) Obesity, unspecified CBC WITH AUTO DIFFERENTIAL Routine 09/11/2024 7:06 AM EDT Unspecified atrial fibrillation (CMS/HCC V24, CMS/HCC V28) Acute kidney failure, unspecified (CMS/HCC V24) Obesity, unspecified CBC AND DIFFERENTIAL Routine 09/11/2024 7:06 AM EDT Unspecified atrial fibrillation (CMS/HCC V24, CMS/HCC V28) Acute kidney failure, unspecified ([facility]/HCC V24) Obesity, unspecified DIGOXIN LEVEL Routine 09/11/2024 7:06 AM EDT Unspecified atrial fibrillation ([facility]/HCC V24, [facility]/HCC V28) Acute kidney failure, unspecified ([facility]/HCC V24) Obesity, unspecified COMPREHENSIVE METABOLIC PANEL Routine 09/11/2024 7:06 AM EDT Unspecified atrial fibrillation (CMS/HCC V24, CMS/HCC V28) Acute kidney failure, unspecified ([facility]/HCC V24) Obesity, unspecified documented in this encounter Results * (ABNORMAL) CBC auto differential (09/11/2024 7:06 AM EDT) [facility] WBC 7.8 4.8 - 10.8 K/mcL LAB HEMETOLOGY METHOD 09/11/2024 9:56 AM [facility] RBC 4.50 4.50 - 5.50 M/mcL LAB HEMETOLOGY METHOD 09/11/2024 9:56 AM [facility] Hemoglobin 12.9(L) 13.5 - 17.5 g/dL LAB HEMETOLOGY METHOD 09/11/2024 9:56 AM [facility] Hematocrit 41.8(L) 42.0 - 54.0 % LAB HEMETOLOGY METHOD 09/11/2024 9:56 AM [facility] MCV 93.5 79.0 - 98.0 FL LAB HEMETOLOGY METHOD 09/11/2024 9:56 AM [facility] MCH 28.9 27.0 - 32.0 pcg LAB HEMETOLOGY METHOD 09/11/2024 9:56 AM [facility] MCHC 30.9(L) 32.0 - 37.0 g/dL LAB HEMETOLOGY METHOD 09/11/2024 9:56 AM [facility] RDW 17.8(H) 11.0 - 15.0 % LAB HEMETOLOGY METHOD 09/11/2024 9:56 AM [facility] Platelets 214 130 - 400 K/mcL LAB HEMETOLOGY METHOD 09/11/2024 9:56 AM [facility] MPV 10.7 7.0 - 11.0 FL LAB HEMETOLOGY METHOD 09/11/2024 9:56 AM [facility] NRBC 0.0 <1.0 % LAB HEMETOLOGY METHOD 09/11/2024 9:56 AM [facility] NRBC Absolute 0.00 <0.10 K/mcL LAB HEMETOLOGY METHOD 09/11/2024 9:56 AM [facility] Neutrophils Relative 78.8 % LAB HEMETOLOGY METHOD 09/11/2024 9:56 AM [facility] Lymphocytes Relative 11.0 % LAB HEMETOLOGY METHOD 09/11/2024 9:56 AM [facility] Monocytes Relative 7.4 % LAB HEMETOLOGY METHOD 09/11/2024 9:56 AM [facility] Eosinophils Relative 1.0 % LAB HEMETOLOGY METHOD 09/11/2024 9:56 AM [facility] Basophils Relative 0.9 % LAB HEMETOLOGY METHOD 09/11/2024 9:56 AM [facility] Immature Granulocytes Relative 0.9 % LAB HEMETOLOGY METHOD 09/11/2024 9:56 AM [facility] Neutrophils Absolute 6.16 1.50 - 7.00 K/mcL LAB HEMETOLOGY METHOD 09/11/2024 9:56 AM [facility] Lymphocytes Absolute 0.86(L) 1.00 - 5.00 K/[facility] LAB HEMETOLOGY METHOD 09/11/2024 9:56 AM EDT [facility] Monocytes Absolute 0.58 0.20 - 1.00 K/[facility] LAB HEMETOLOGY METHOD 09/11/2024 9:56 AM EDT [facility] Eosinophils Absolute 0.08 0.00 - 0.50 K/[facility] LAB HEMETOLOGY METHOD 09/11/2024 9:56 AM EDT [facility] Basophils Absolute 0.07 0.00 - 0.20 K/[facility] LAB HEMETOLOGY METHOD 09/11/2024 9:56 AM EDT [facility] Immature Granulocytes Absolute 0.07(H) 0.00 - 0.03 K/[facility] LAB HEMETOLOGY METHOD 09/11/2024 9:56 AM EDT [facility] Blood Venous blood specimen / Unknown Venipuncture / Unknown 09/11/2024 7:06 AM EDT 09/11/2024 8:41 AM EDT us Alonso Mckoy MD LAB BLOOD ORDERABLES Final Resu lt Performing Organization Address City/[facility]/ZIP Co de Phone Number [facility] [address] [place] [address], * Digoxin level (09/11/2024 7:06 AM EDT) Digoxin Lvl 0.8 0.5 - 2.0 ng/mL LAB CHEMISTRY METHOD 09/11/2024 11:10 AM EDT [facility] Blood Venous blood specimen / Unknown Venipuncture / Unknown 09/11/2024 7:06 AM EDT 09/11/2024 8:41 AM EDT us Alonso Mckoy MD LAB BLOOD ORDERABLES Final Resu lt [facility] [address] [place] [address], [place] [phone] * (ABNORMAL) Lipid panel with reflex to direct LDL (09/11/2024 7:06 AM EDT) Cholesterol 132 0 - 200 mg/dL LAB CHEMISTRY METHOD 09/11/2024 11:10 AM EDT [facility] Triglycerides 123 0 - 150 mg/dL LAB CHEMISTRY METHOD 09/11/2024 11:10 AM EDT [facility] HDL 29(L) >=40 mg/dL LAB CHEMISTRY METHOD 09/11/2024 11:10 AM EDT [facility] LDL Calculated 78 0 - 100 mg/dL LAB CHEMISTRY METHOD 09/11/2024 11:10 AM EDT [facility] VLDL Cholesterol Jean Marie 24.6 mg/dL LAB CHEMISTRY METHOD 09/11/2024 11:10 AM EDT [facility] Non HDL Chol. (LDL+VLDL) 103 <145 mg/dL LAB CHEMISTRY METHOD 09/11/2024 11:10 AM EDT [facility] Chol/HDL Ratio 4.6(H) 0.0 - 4.4 LAB CHEMISTRY METHOD 09/11/2024 11:10 AM T [facility] Blood Venous blood specimen / Unknown Venipuncture / Unknown 09/11/2024 7:06 AM EDT 09/11/2024 8:41 AM EDT us Alonso Mckoy MD LAB BLOOD ORDERABLES Final Resu lt [facility] [address] [place] [address], [place] [phone] * (ABNORMAL) Comprehensive metabolic panel (09/11/2024 7:06 AM EDT) Sodium 140 133 - 145 mmol/L LAB CHEMISTRY METHOD 09/11/2024 11:11 AM [facility] Potassium 3.8 3.5 - 5.5 mmol/L LAB CHEMISTRY METHOD 09/11/2024 11:11 AM [facility] Chloride 103 96 - 110 mmol/L LAB CHEMISTRY METHOD 09/11/2024 11:11 AM [facility] CO2 28 21 - 32 mmol/L LAB CHEMISTRY METHOD 09/11/2024 11:11 AM [facility] Anion Gap 9 3 - 11 LAB CHEMISTRY METHOD 09/11/2024 11:11 AM [facility] Glucose 84 70 - 100 mg/dL LAB CHEMISTRY METHOD 09/11/2024 11:11 AM [facility] BUN 12 5 - 25 mg/dL LAB CHEMISTRY METHOD 09/11/2024 11:11 AM [facility] Creatinine 0.93 0.70 - 1.30 mg/dL LAB CHEMISTRY METHOD 09/11/2024 11:11 AM [facility] eGFR 91 >=60 mL/min/1. 73m2 LAB CHEMISTRY METHOD 09/11/2024 11:11 AM [facility] Comment:Calculation based on the Chronic Kidney Disease Epidemiology Collaboration (CKD-EPI) equation refit without adjustment for race. BUN/Creatinine Ratio 12.9 LAB CHEMISTRY METHOD 09/11/2024 11:11 AM [facility] Calcium 8.2(L) 8.5 - 10.5 mg/dL LAB CHEMISTRY METHOD 09/11/2024 11:11 AM [facility] AST (SGOT) 45(H) 10 - 42 unit/L LAB CHEMISTRY METHOD 09/11/2024 11:11 AM [facility] ALT (SGPT) 44 10 - 60 unit/L LAB CHEMISTRY METHOD 09/11/2024 11:11 AM [facility] Alkaline Phosphatase 99 42 - 121 unit/L LAB CHEMISTRY METHOD 09/11/2024 11:11 AM EDT [facility] Total Protein 6.5 6.0 - 8.0 g/dL LAB CHEMISTRY METHOD 09/11/2024 11:11 AM EDT [facility] Albumin 2.9(L) 3.2 - 5.0 g/dL LAB CHEMISTRY METHOD 09/11/2024 11:11 AM EDT [facility] Total Bilirubin 0.5 0.0 - 1.4 mg/dL LAB CHEMISTRY METHOD 09/11/2024 11:11 AM EDT [facility] Blood Venous blood specimen / Unknown Venipuncture / Unknown 09/11/2024 7:06 AM EDT 09/11/2024 8:41 AM EDT us Alonso Mckoy MD LAB BLOOD ORDERABLES Final Resu lt [facility] [address] [place] [address], documented in this encounter Visit Diagnoses Diagnosis Unspecified atrial fibrillation (CMS/HCC V24, CMS/HCC V28) Acute kidney failure, unspecified (CMS/HCC V24) Acute kidney failure, unspecified Obesity, unspecified documented in this encounter Care Teams Banquet Line Cook Relationship Specialty Start Date End Date Maty Darnell MD [address] [place] [address] Dr [address] [place], [place] PCP - General Internal Medicine 10/24/19 documented as of this encounter
--- OUTSIDE RECORDS SUMMARY | 2025-03-14 19:30 | XMS_ITS | Encounter Summary ---
Author Organization [employer] Address [address] [facility] 7 [place] [address] Care Team Providers Care Recreation Worker Name Role Phone Rick Arcos MD Primary Care Prov ider Reason for Visit * Reason Onset Date Comments Medication Question 07/14/2024 Encounter Details Date Type Department Care Team ([facility] st Contact Info) Description 07/14/2024 Telephone [facility] [address] [place] [address] Rick Arcos MD [address] [place] [address] Medication Question Social History Tobacco Use Types [...] is not getting medication. Contact pt at [phone] documented in this encounter Plan of Treatment Not on file documented as of this encounter Visit Diagnoses Not on filedocumented in this encounter Care Teams Recreation Worker Relationship Specialty Start Date End Date Rick Arcos MD [address] [place] [id number] PCP - General Internal Medicine 05[facility]28[facility]24 [facility] documented as of this encounter
--- OUTSIDE RECORDS SUMMARY | 2025-03-14 19:30 | XMS_ITS | Encounter Summary ---
Author Organization [employer] Address [address] [facility] 7t [place] [address] Care Team Providers Care Green Material Value Added Assessor Name Role Phone Rick Arcos MD Primary Care Prov ider Reason for Visit * Reason Onset Date Comments Nurse Triage 07/15/2024 Encounter Details Date Type Department Care Team (Late st Contact Info) Description 07/15/2024 Telephone [facility] [address] [place] [address] Rick Arcos MD [address] [place], [place] [phone] Nurse Triage Social History Tobacco Use Types [...] returned to patient who was discharged from [facility] on Saturday07/13/2024. Though documentation show Oxycodone was [...] caller accepted this outcome. Contact pt at [phone] Pt states that the symptoms that he is having are due to him not having his medication oxyCODONE (Oxy-IR) 5 MG immediate release capsule. documented in this encounter Plan of Treatment Not on file documented as of this encounter Visit Diagnoses Not on filedocumented in this encounter Care Teams Green Material Value Added Assessor Relationship Specialty Start Date End Date Rick Arcos MD [address] [place] [address] PCP - General Internal Medicine 05/28/24 Rodrick Arguello 06/09/24 documented as of this encounter
--- OUTSIDE RECORDS SUMMARY | 2025-03-14 19:30 | XMS_ITS | Data Portability ---
Author Organization [facility], Main Office Address [address] [facility] [facility], [address] [place] [address] Care Team Providers Care Locker Room Clerk Name Role Phone MATTHEW REECE Primary Care Provider JASWANT PAYNE OTHER [facility] OTHER Assessment No assessment recorded. Plan of Treatment Reminders Order Date Submit Date Provider Last Modified By Organization Details Last Modified Time Details Appointments None record ed. Lab None record ed. Referral None record ed. Procedures None record ed. Surgeries None record ed. Imaging None record ed. Medication Orders None record ed. Patient TargetsNo targets recorded. Patient Instructions Encounter Date Encounter Id Patient Instructions Last Modified By Organization Details Last Modified Time 01/16/2022 [id number] [email or web address] Not available 01/21/2022 13:45:42 Reason for Referral None Reported. Problems Name Problem SNOMED Code Status Onset Date Resolution Date Notes Provider Name and Address Organization Details Recorded Time Persistent atrial fibrillati on 636843990 Active 2020 on Eliquis; Hx RVR REINIER TAYLOR PA-C [address] [facility], [address], [place], [address], [facility] 16:09:21 Alcohol dependence 15930042 Active 2020 REINIER TAYLOR PA-C [address] [facility], [address], [place], [address], [facility] 16:09:41 Alcoholic hepatitis 892914708 Active 2020 REINIER TAYLOR PA-C [address] [facility], [address], [place], [address], [facility] 16:09:57 Candidiasi s of mouth 86207470 Active 2020 REINIER TAYLOR PA-C [address], [address], [place], [place], [address], [facility] 16:10:12 Major depressive disorder 210298173 Active 2020 REINIER TAYLOR PA-C [address], [address], [place], [address], [facility] 16:10:30 Insomnia co-occurre nt and due to medical condition 962024336235 05 Active 2020 REINIER TAYLOR PA-C [address], [address], [place], [address], [facility] 16:11:00 Chronic sciatica 888813268 Active 2020 REINIERSA TAYLOR PA-C [address], [address], [place], [address], [facility] 16:14:51 Anemia 769091581 Active 2020 REINIER TAYLOR PA-C [address], [address], [place], [address], [facility] 16:15:03 Dyslipidem ia 831430519 Active 2020 REINIER TAYLOR, PA-C [address], [address], [place], [address], [facility] 16:15:10 Chronic diastolic heart failure 534366238 Active 2020 REINIER TAYLOR PA-C [address], [address], [place], [address], [facility] 16:15:30 Pulmonary embolism 80188351 Active 2020 details unclear; on Eliquis anyway for A-Fib REINIER TAYLOR, PA-C [address], [address], [place], [address], [facility] 16:16:14 Hypertensi ve disorder 79600000 Active 2020 Tori yang [place] - [facility] 10:19:26 Anxiety 41323408 Active 2020 Tori Petrangel o null, [facility] 1 10:20:09 Aneurysm of thoracic aorta 981452673 Active 2020 Tori Petrangel o null, [facility] 1 10:20:27 Gastroesop hageal reflux disease 925789378 Active 2020 Tori Petrangel o null, [facility] 1 10:21:17 Constipati on 05330879 Active 2020 Tori Petrangel o null, [facility] 1 10:22:49 SARS-CoV-2 Active 2021 Tori Petrangel o null, [facility] 2 16:22:46 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 2024 AKeyanaBruce Velazquez [address] [facility], [address], [place], [address], [facility] 5 12:25:54 Asthenia 80820807 Active 2024 AKeyanaBruce gabeKerline [address] [facility], [address], [place], [address], [facility] 5 12:25:56 Gout 46864129 Active 2024 AKeyanaBruce Velazquez [address] [facility], [address], [place], [address], [facility] 5 12:25:57 Benign prostatic hyperplasi a 851658779 Active 2024 AEveline Velazquez [address] [facility], [address], [place], [address], [facility] 5 12:25:59 Chronic pain syndrome 323161044 Active 2024 AEveline Velazquez [address] [facility], [address], [place], [address], [facility] 5 12:26:01 History of fall 219095880 Active 2024 Stephanie Velazquez [address] [facility], [address], [place], [address], [facility] 12:27:09 Problem Notes None recorded. Medical Equipment None Reported. Allergies No known drug allergies Medications Not known to be on any medication Vitals Date Recorded Body height Systolic And Diastolic Provider Name and Address Organization Details Last Updated DateTime 12/27/2021 175.26 cm 122/68 mm[Hg] REINIER TAYLOR PA-C [address] [facility], [address], [place], [address], [facility] 01/14/2022 18:58:08 Date Recorded Body height Systolic And Diastolic Provider Name and Address Organization Details Last Updated DateTime 12/28/2021 175.26 cm 122/68 mm[Hg] REINIER TAYLOR PA-C [address] [facility], [address], [place], [address], [facility] 01/14/2022 20:35:49 Date Recorded Body height Body temperature Systolic And Diastolic Provider Name and Address Organization Details Last Updated DateTime 01/08/2022 175.26 cm 97.5 [degF] 122/74 mm[Hg] REINIER TAYLOR PA-C [address] [place] [address], [address], [place], [address], [facility] 01/20/2022 18:33:31 Date Recorded Body height Systolic And Diastolic Provider Name and Address Organization Details Last Updated DateTime 01/16/2022 175.26 cm 130/64 mm[Hg] REINIER TAYLOR PA-C [address] [place] [address], [address], [place], [address], [facility] 01/21/2022 13:41:53 Social History Question Answer Notes LastModified by Organizat ion Details LastModified Time Tobacco Smoking Status Never Smoker REINIER TAYLOR PA-C [address] [facility], [address], [place], [address], [facility] 03/13/2021 16:37:25 Do You Have An Advance Directive? Yes Information not available 11/04/2024 What Is Your Code Status? Full Code Information not available 11/04/2024 Legal Guardian? No [email or web address] Informati on not available 03/13/2021 What Was The Date Of Your Most Recent Tobacco Screening? 11/04/2024 Information not available 11/04/2024 Do You Have An Out Of Hospital DNR? No [email or web address] Information not available 03/13/2021 Have You Ever Been Counseled For Unhealthy Alcohol Use? Yes [email or web address] Information not available 03/13/2021 Has Tobacco Cessation Counseling Been Provided? No N/A [email or web address] Information not available 03/13/2021 Sex: Unknown Functional Status Question Answer Note LastModified by Organizat ion Details LastModified Time Do you use any illicit or recreational drugs? No Information not available 11/04/2024 Do you or have you ever used any other forms of tobacco or nicotine? No Information not available 03/13/2021 What is your level of alcohol consumption? None Information not available 11/04/2024 Mental Status None recorded. Family History Relationship Description Onset Age of this Age Resolved Age Notes LastModified by Organization Details LastModified Time Father Coronary arterioscler osis [email or web address] Not available 2020 16:36:26 Mother Coronary arterioscler osis [email or web address] Not available 2020 16:36:26 Medical History No medical history recorded. Immunizations Vaccine Type Date Status Note Provider Nam e and Address Organization Details Recorded Time pneumococcal, unspecified formulation 02/23/2018 completed REINIER TAYLOR PA-C [address], [place], [address], [facility] 05/29/2021 09:27:58 COVID-19, mRNA, LNP-S, PF, 30 mcg/0.3 mL dose 07/21/2020 completed REINIER TAYLOR PA-C [address] , [address], [place], [address], [facility] 05/29/2021 09:28:12 COVID-19, mRNA, LNP-S, PF, 30 mcg/0.3 mL dose 08/18/2020 completed REINIER TAYLOR PA-C [address], [place], [address], [facility] 05/29/2021 09:28:16 COVID-19, mRNA, LNP-S, PF, 30 mcg/0.3 mL dose 08/10/2021 completed REINIER TAYLOR PA-C [address] [facility], [address], [place], [address], [facility] 08/11/2021 12:48:54 Past Encounters Encounter ID Performer Location Encounter Start Date Encounter Closed Date Diagnosis/Indication Diagnosis SNOMED-CT Code Diagnosis ICD10 Code Diagnosis IMO Codes Diagnosis Note [id number] REINIER TAYLOR PA-C [facility] on [address] [place] [address] 03/13/2021 09:50:43 03/17/2021 10:23:36 Persistent atrial fibrillation 549175226 I48.19 rate-contr olledon full anticoagul ation with EliquisRec ommended for Cards f/u 1-[address] Jaswant Payne -clarify if this is necessary or perfunctor y - may be able to defer until after d/cMonitor and f/u prn Pulmonary embolism 53352 003 I26.99 Details unkOn full anticoagul ation with Eliquis Chronic sciatica 7273479 01 M54.30 Schedule Flexeril 5 mg po q 8 hContinue prn APAP - don't want to schedule at this point since recent transamini tisAdd lidocaine 4% patch daily to low backPT/OT Chronic di astolic heart failure 717467995 I50.32 Compensate dDoes not appear to be on any diureticsM onitor clinically Candidiasis of mouth 797 68884 B37.0 Exam negFinish Nytatin oral suspension Anemia 195993212 D64.9 Follow CBC Alcoholic hepatitis 2358 43420 K70.10 Trend LFTsRecent Hep panel negative Alcohol dependence 49193 003 F10.20 On campral 666 mg po tidSubstan ce use d/o counseling Dyslipidemia 051570212 E 78.5 Statin Insomnia c o-occurrent and due to medical condition 4845758567 9105 G47.01 f/u prn Major depr essive disorder 079138593 F32.9 No SI/HI/AH/V HContinue meds-Abili fy appears to be adjunctive consider psych consult Irreducibl e incisional hernia 032753223 K43.0 s/p repairInci melissa healing wellDoes not need f/u with surg per pt Altered mental status 41 7060734 R41.82 Does not present as confused as described last eveningDid not want to participat e in cognitive assessment due to painWill f/u again tomorrowDe pression seems adequately managed so pseudodeme ntia less likelycons ider psych consult [id number] REINIER TAYLOR PA-C [facility] on [address] [place] [address] 03/14/2021 16:14:28 03/17/2021 10:50:39 Insomnia co-occurrent and due to medical condition 4649995964 9105 G47.01 Spoke with [facility], [address] in [facility] [phone] at request of pt. Per the pharmacy associate, pt had a prescripti on for Ambien, which was canceled by Tricia Grimm, Psych [facility], on 02/09/21. Pt was not aware it was canceled; however, after further discussion , he agreed it's possible that she canceled it because of his EtOH use. Prior trial of Trazodone, which caused a hangover feeling the following mornings. Open to a trial of Melatonin. Start Melatonin 3 mg po qhs; may repeat x 1 if needed-Mon itor and titrate to effect Pt will work with staff to reach out to Tricia Grimm-if she is agreeable to resume Ambien, then it shall be ordered here; however, if she is not willing to continue to prescribe it when he returns to the community, it will not be ordered here and pt expressed understand ing about this Alcoholic hepatitis 2358 46661 K70.10 LFTs improvedRe cent Hep panel negative Chronic sciatica 5620964 01 M54.30 Confirmed with pt's pharmacy that he has not had any Rx for oxycodoneN o changes at this timeMonito r and f/u prn [id number] Allegra Peterson MD [facility] on [address] [place] [address] 03/16/2021 15:03:51 03/23/2021 08:44:39 Alcoholic hepatitis 914531593 K70.10 LFTs improving, but still out of range.Will likely continue to improve as long as pt remains sober.Kasia leonardo LFTs. Chronic sciatica 1582621 01 M54.30 Continue PT/OT as above.Cont inue APAP 650 mg q 4 hrs prn.Monito r sxs.Consid er CT scan if not improving. Persistent atrial fibrillation 902250930 I48.19 Rate well controlled on metoprolol 100 mg BID and diltiazem 360 mg qd.Continu e Eliquis 5 mg BID for AC.Monitor HR and bleeding risk.F/U with cardio (Dr. Jaswant Payne ) as planned. Pulmonary embolism 92601 003 I26.99 In hx, but no details available. Continue Eliquis as above.Kasia leonardo for sxs. Chronic di astolic heart failure 082039155 I50.32 Appears euvolemic. Continue metoprolol 100 mg BID.Monito r resp. status, fluid status, wts and labs. Anemia 192084811 D64.89 Stable.Mon itor labs. Alcohol dependence 89917 003 F10.20 Continue acamprosat e 666 mg TID.Contin eu to encourage abstinence and use of support system/contreras tings. Dyslipidemia 978257627 E 78.49 Continue atorvastat in 40 mg qd.Monitor labs as outpt. Major depr essive disorder 038304238 F33.1 Mood more anxious than depressed currently. Continue Viibryd 20 mg qd, venlafaxin e 150 mg qd, and aripiprazo le 5 mg qd.Monitor mood.Psych consult prn. Irreducibl e incisional hernia 600534276 K43.0 s/p repair in 02/2021.In cision healing wellMonito r healing. Altered mental status 41 0763242 R41.82 Does not present as confused as described last eveningDid not want to participat e in cognitive assessment due to painWill f/u again tomorrowDe pression seems adequately managed so pseudodeme ntia less likelycons ider psych consult Insomnia 344012829 G47.0 9 Continues to have trouble sleeping. Says 3 mg melatonin not helping at all. Doesn't seem to understand why he can't have ambien. Reexplaine d that outpt. rxer had d/c'd it and recommende d it not be restarted. Will increase melatonin to 6 mg qhs, with extra 3 mg prn if no effect.Mon itor sleep patterns. Asthenia 23369090 R53.1 Very deconditio marcela.Needs PT/OT for strengthen ing, balance, gait training, safety and function.C ontinue fall precaution s.Monitor for safety. [id number] AMA MOORE [facility] on [address] [place] [address] 03/20/2021 14:12:22 03/22/2021 13:01:10 Insomnia co-occurrent and due to medical condition 6401072115 9105 G47.01 Spoke with [facility], [address] in [facility] at request of pt. Per the pharmacy associate, pt had a prescripti on for Ambien, which was canceled by Tricia Grimm, Psych [facility] [facility], on 02/09/21. Pt was not aware it was canceled; however, after further discussion , he agreed it's possible that she canceled it because of his EtOH use. Prior trial of Trazodone, which caused a hangover feeling the following mornings. Open to a trial of Melatonin. Start Melatonin 3 mg po qhs; may repeat x 1 if needed - now increased to 10mg qhs-Monito r and titrate to effect - may go up to 12mg Pt will work with staff to reach out to Tricia Grimm-if she is agreeable to resume Ambien, then it shall be ordered here; however, if she is not willing to continue to prescribe it when he returns to the community, it will not be ordered here and pt expressed understand ing about this ambien found in pt's room today, he reports he did take a few . Alcoholic hepatitis 2358 97601 K70.10 LFTs improvedRe cent Hep panel negativemo nitor labs prnmonitor for s/s Chronic sciatica 0409684 01 M54.30 Confirmed with pt's pharmacy that he has not had any Rx for oxycodone - pt reports he was getting in the hospitalfl exeril 5mg q8hr - pt was on 10mg in the hospital - increasing to 10mg Q8 and monitor for effectwith increased sciatica painmonito r for pain control Persistent atrial fibrillation 600296926 I48.19 eliquis 5mg bidRecomme nded for Cards f/u 1-[address] Jaswant Payne - pt had f/u today with rec's as follows... -continue current tx plan-semia nnual BMP-echo in 1 year-offic e visit in 1 yearmonito r ratemonito r labs prnmonitor for s/s of active bleeding Pulmonary embolism 53097 003 I26.99 eliquis 5mg bidmonitor for s/smonitor resp status Chronic di astolic heart failure 632163288 I50.32 monitor CP statusweek ly weight Anemia 105129637 D64.9 monitor labs prnmonitor for s/s of acitve bleeding Alcohol dependence 89385 003 F10.20 campral 666 mg po tidSubstan ce use d/o counseling encourage cessation Dyslipidemia 970508583 E 78.5 atorvastat in 40mg qhsmonitor labs prn Major depr essive disorder 289285060 F32.9 No SI/HI/AH/V Hvilazodon e 20mg dailyvenla faxine 150mg daily-Abil howard 5mg dailymonit or mood and behaviorps [facility] prn Irreducibl e incisional hernia 110410611 K43.0 s/p repairInci melissa healing wellDoes not need f/u with surg per ptmonitor sitemonito r for s/s [id number] REINIER TAYLOR PA-C [facility] on [address] [place] [address] 03/22/2021 10:34:54 03/28/2021 11:19:40 Persistent atrial fibrillation 417295235 I48.19 rate-contr olledon full anticoagul ation with Eliquiscar ds f/u 1 year Chronic sciatica 1270100 01 M54.30 needs ongoing PT/OTOpiat e analgesia is not recommende d Chronic di astolic heart failure 229310321 I50.32 Compensate dMonitor clinically [id number] AMA MOORE [facility] on [address] [place] [address] 03/29/2021 09:45:42 04/03/2021 13:16:55 Persistent atrial fibrillation 944031747 I48.19 found to be in afib with RVRcardize m 180mg dailymetop rolol 100mg bideliquis 5mg bidmonitor ratemonito r labs prn Hypertensive disorder 38 064135 I10 cardizem 180mg dailymetop rolol 100mg bidmonitor bps and need to adjust meds prn Dyslipidemia 088895921 E 78.49 atorvastat in 40mg qhsmonitor labs prn Chronic di astolic heart failure 228555691 I50.32 monitor CP statusmoni tor vsmonitor labs prn Pulmonary embolism 78012 003 I26.99 hx ofeliquis 5mg bidmonitor resp status Anemia 067652535 D64.89 hx ofmonitor labs prnmonitor for s/s of bleeding Major depr essive disorder 481365975 F33.1 vilazodone 20mg dailyabili fy 5mg dailyvenla faxine 150mg dailymelat onin 10mg qhsmonitor mood and behaviorps ych prn Anxiety 71384467 F41.9 monitor mood and behaviorps ych prn Aneurysm o f thoracic aorta 820038177 I71.2 hx ofmonitor outpt Alcohol dependence 28035 003 F10.20 acamprosat e 666mg TIDcontinu e to encourge cessation Chronic sciatica 7205181 01 M54.30 lidocaine patch daily in am off in pmAPAP 650mg Q6hr prnoxycodo ne 5mg Q6hr prn x 3 dayspredni sone 20mg daily until 04/03flexe ril 10mg tidmonitor for pain control Gastroesop hageal reflux disease 803923545 K21.9 omeprazole 20mg dailymonit or for GI s/s Constipation 70455762 K5 9.00 senna 2 tabs qhscolace 100mg daily prn Dry skin 83399306 L85.3 very dry skin on bilat feetmoistu rize dailymonit or for open areas [id number] Phyllis Harper MD [facility] on [address] [place] [address] 03/31/2021 07:03:05 04/03/2021 14:05:39 Alcohol dependence 08515340 F10.20 acamprosat e 666 mg tidsocial service for support, offer AA, other interdisci plinary resources for sobrietywi monitor Chronic sciatica 8873182 01 M54.30 cyclobenza dontrell 10 mg tidoxycodo ne 4 mg q6h prnAPAP 650 mg q6h prnprednis one 20 mg daily through 04/03/21wi ll monitorPT/ OT prn Dyslipidemia 981142781 E 78.49 atorvastat in 40 mg dailyuwill monitor Gastroesop hageal reflux disease 345545954 K21.9 omeprazole 20 mg dailywill monitor Hypertensive disorder 38 203873 I10 diltiazem ER 180 mg dailymetop rolol 100 mg bidwill monitor Persistent atrial fibrillation 524106631 I48.19 diltiazem ER 180 mg daily for rate controlmet oprolol 100 mg bid for rate controlapi xaban 5 mg bidwill monitor Mixed anxi ety and depressive disorder 184245262 F41.8 aripiprazo le 5 mg dailyvanla faxine ER 150 mg dailyvilaz odone 20 mg dailywill monitor Chronic di astolic heart failure 667060842 I50.32 metoprolol 100 mg bidfu cardiology [id number] REINIER TAYLOR PA-C [facility] on [address] [place] [address] 04/04/2021 14:26:19 04/06/2021 14:20:35 Chronic sciatica 571449143 M54.30 Add oxycodone IR 5 mg po q 8 h prn pain, NTE 2 doses per day-no script for this and may not take remaining balance if applicable upon discharge- pt understand s and agrees to this-scrip t for oxycodone IR 5 mg #30 given to nursePT/OT No other med changes at this time Insomnia c o-occurrent and due to medical condition 4307460163 9105 G47.01 Lunesta 3 mg po qhs confirmed; however, this med requires a Prior Auth, which can be done by his community prescriber -as such, will start Ambien 10 mg po qhs while here and then pt will resume his Lunesta 3 mg po qhs on discharge- no script for this and may not take remaining balance if applicable upon discharge- pt understand s and agrees to this-scrip t for Ambien 10 mg #10 with 5 refills given to nurse Weight loss 70935585 R63 .4 Some degree of weight loss is desirable in this patientBio chemically euthyroid on labs last admitMonit or weightsRD also following Persistent atrial fibrillation 586093135 I48.19 rate-contr olledon full anticoagul ation with Eliquisout patient f/u with cards 03/2022 as previously recommende d Chronic di astolic heart failure 469383413 I50.32 Compensate dMonitor clinically Weights overall down [id number] REINIER TAYLOR PA-C [facility] on [address] [place] [address] 04/06/2021 17:38:39 04/14/2021 09:31:35 Altered mental status 771455796 R41.82 decrease Ambien from 10 mg to 5 mg po qhs and hold if sedated-sc ript for 5 mg #15 with 5 refills given to nurse [id number] REINIER TAYLOR PA-C [facility] on [address] [place] [address] 04/21/2021 12:01:12 04/25/2021 14:17:03 Chronic low back pain 108211463 M54.50 Rolling walker and shower chair with back Recurrent falls 37049419 2 R29.6 Rolling walker and shower chair with back [id number] AMA MOORE [facility] [address] [place] [address] 04/26/2021 13:40:14 05/03/2021 11:22:55 Edema 930635618 R60.9 pt with increased edema to RLETEDS on in am off in pmmonitor for redness, swelling, or warmthecou rage elevation throughout the daymonitor labs prnencoura ge low salt diet [id number] AMA MOORE [facility] on [address] [place] [address] 04/27/2021 11:11:54 05/02/2021 13:16:35 SARS-CoV-2 044379706 U07.1 pt tested + this amwith cough, body aches, and HAadding remdesivir 200mg IV on day one and 100mg IV on day 2 and 3monitor vs closelymon itor labs prnmonitor resp status [id number] REINIER TAYLOR PA-C [facility] on [address] [place] [address] 04/28/2021 17:39:42 05/02/2021 13:33:28 COVID-19 234680105 U07.1 Remdesivir Supportive care-add prn Robitussin Precaution s per facility protocolFo [facility] clinically Anemia 452710820 D64.9 H&H overall downMeds include EliquisChe ck stool guaiac x 3Repeat CBC with typical anemia w/u [id number] REINIER TAYLOR PA-C [facility] on [address] [place] [address] 05/01/2021 14:50:35 05/03/2021 11:51:58 Weight loss 85732866 R63.4 DesirableB iochemical ly euthyroid on labs last admitMonit or weightsRD also following COVID-19 606533058 U07.1 Completing remdesivir Clinically improvedSu pportive carePrecau tions per facility protocolFo [facility] clinically Persistent atrial fibrillation 261371791 I48.19 rate-contr olledon full anticoagul ation with EliquisMon itor and f/u prn [id number] AMA MOORE [facility] on [address] [place] [address] 05/15/2021 08:47:23 06/01/2021 12:48:22 Edema of lower extremity 071116425 R60.0 RLE - worsening over the last few week - now from foot to kneeorderi ng venous US to rule out DVTdo not massage extremitym onitor for s/s of DVTno warmth or rednesssaf ety precaution s as pt is having decrease ROM to right knee [id number] AMA MOORE [facility] on [address] [place] [address] 05/17/2021 10:25:35 06/01/2021 14:05:14 Edema of lower extremity 768381340 R60.0 RLE - worsening over the last few week - now from foot to kneeorderi ng venous US to rule out DVT - no DVT or tobin's cystTEDS - on in am off at [facility] - may also use low wraps for gentle compressio n from toes to kneeadding lasix 10mg daily x 3 days and monitor edemamonit or for s/s of DVTno warmth or rednesssaf ety precaution s as pt is having decrease ROM to right knee Increased frequency of urination 164844300 R35.0 recentlypt reporots had been on finasterid e and flomax - will trial flomax 0.4mg qhs and monitor effectPVRs Qshift x 3 day and record in PCCmonitor for further urinary s/s SARS-CoV-2 114045396 U07 .1 pt tx with 3 days course of remdesivir pt continues with cough for which he feels is bronchitis . He reports having this in the past and is requesting albuterola lbuterol added Saturday, pt unaware that med was prn despite conversati on but checked, med here, and nsg aware he would like a dosemonito r resp statusmoni tor for sequela [id number] AMA MOORE [facility] on [address] [place] [address] 05/24/2021 09:04:42 06/02/2021 09:57:49 Edema of lower extremity 507651750 R60.0 RLE continues over the last few weeks, better with elevation and TEDS/low wraps - pt reports having a hard time using the bike today d/t legs being so taut d/t edemaorder ing venous US to rule out DVT - no DVT or tobin's cystTEDS - on in am off at [facility] - may also use low wraps for gentle compressio n from toes to kneeadding lasix 10mg daily x 3 days and monitor edema - edema now worse, adding lasix 10mg po daily in [facility] tomorrow - watch bun/cr and K+ with addition of lasix Increased frequency of urination 607821888 R35.0 pt reporots had been on finasterid e and flomax - will trial flomax 0.4mg qhs and monitor effect - pt reports better but still voiding much throughout the day - increasing flomax to 0.8mg QHSPVRs Qshift x 3 day and record in PCC - PVR's okmonitor for further urinary s/s [id number] Phyllis Harper MD [facility] on [address] [place] [address] [phone] 3 05/26/2021 08:45:45 06/02/2021 10:37:52 Chronic diastolic heart failure 573281419 I50.32 metoprolol 100 mg bidfu cardiology Alcohol dependence 85935 003 F10.20 acamprosat e 666 mg tidsocial service for support, offer AA, other interdisci plinary resources for sobrietywi monitor Chronic sciatica 4039028 01 M54.30 oxycodone 5 mg q12h prnLidocai ne patch to lower back dailyAPAP 650 mg q6h prnwill monitorPT/ OT prn Dyslipidemia 772337410 E 78.49 atorvastat in 40 mg dailywill monitor Hypertensive disorder 38 310142 I10 diltiazem ER 180 mg dailymetop rolol 100 mg bidwill monitor Persistent atrial fibrillation 146499966 I48.19 diltiazem ER 180 mg daily for rate controlmet oprolol 100 mg bid for rate controlapi xaban 5 mg bidwill monitor Primary insomnia 0267921 F51.01 zolpidem 5 mg at hswill monitor Benign pro static hyperplasia without outflow obstruction 769630508 N40.0 tamsulosin 0.4 mg at hswill monitor Peripheral edema 6259653 00 R60.0 suspect peripheral venous insufficie ncyUS neg for DVT or Tobin's cystwill check CXR since subjective sense of shortness of breathcont in Teds stockingsl ow dose furosemide will monitor [id number] REINIER TAYLOR PA-C [facility] on [address] [place] [phone] 3 05/29/2021 09:25:24 06/02/2021 11:05:05 Acute on chronic diastolic heart failure 127091364 I50.33 Although CXR unimpressi ve, pt has had significan t weight gain as well as orthopneaL asix 40 mg po x 1 extra dose today then increase daily Lasix from 10 mg to 40 mgBMP, Mg 1 weekDaily weights x 1 week then weekly weightsCon tinue TEDsManage A-fib as may have persistent tachycardi a, which would contribute to CHF (see below) Anemia 749843123 D64.9 First stool guaiac negative; review rest when availableB 12 boderline low -- will replete 1000 mcg po dailyH&H improved but still overall downFollow CBC Persistent atrial fibrillation 085041396 I48.19 Tachycardi c this am but has yet to receive meds-will request BP and HR bid x 1 week then bid once per week-may need to impove rate-contr olon full anticoagul ation with EliquisMon itor and f/u prn Edema of l ower extremity 774923308 R60.0 BilateralP rior u/s neg DVT-low index of suspicion since on full anticoagul ation with EliquisAdj usting Lasix as aboveConti nue TEDsNo evidence of cellulitis Continue oxycodone IR 5 mg po q 8 h but d/c the NTE 2 doses/24 h [id number] REINIER TAYLOR PA-C [facility] [address] [place] [phone] 3 05/30/2021 17:03:52 06/13/2021 15:42:17 Acute on chronic diastolic heart failure 351859256 I50.33 Improved with increased LasixFollo w clinically Has labs next week [id number] REINIER TAYLOR PA-C [facility] on [address] [place] [address] [phone] 3 05/31/2021 15:37:37 06/13/2021 16:00:00 Acute on chronic diastolic heart failure 514800118 I50.33 Lasix 40 mg po x 1 extra dose today then increase from 40 mg po daily to 40 mg po bid starting 06/01Labs in place for 06/05Re-or lola daily weights and bid BP/HRCheck 2-D echoFollow clincally [id number] REINIER TAYLOR PA-C [facility] on [address] [place] [address] [phone] 3 06/05/2021 14:42:08 06/14/2021 14:00:24 Edema of lower extremity 730864672 R60.0 Repeat RLE venous u/s-low index of suspicion for DVT since on full anticoagul ation with Eliquis but worsening asymmetric edema is concerning Acute on c hronic diastolic heart failure 317389874 I50.33 Weights continue to increaseCa rdiopulmon priscila symptoms are worse againLasix 80 mg po x 1 extra dose today then increase Lasix from 40 mg po bid to 80 mg po bid-Follow renal function, divalents, and Mg-Mg level remains therapeuti c and at least 2-normal renal function on today's labs despite diuresis indicate pt has more fluid to giveClarif y status of echoFollow weights and follow clinically Benign pro static hyperplasia without outflow obstruction 806700367 N40.0 Flomax recently added and increased due to increased frequency of urination in the context of hx BPH with prior Proscar and FlomaxUrin priscila frequency and volume reflect diuresisd/ c FlomaxFoll ow-up prn Insomnia c o-occurrent and due to medical condition 2468557382 9105 G47.01 Appreciate rec from pharm; however, med has already been reduced by 50% since admit, he has been tolerating it, and will not be receiving it upon discharge since he has a Lunesta script waiting for him at his pharmacy. No indication to further reduce dose at this time. Pt is being monitored. [id number] REINIER TAYLOR PA-C [facility] on [address] [place] [address] [phone] 3 06/06/2021 16:13:20 06/14/2021 14:57:01 Acute on chronic diastolic heart failure 556692174 I50.33 Weights overall up but no weight yet since increased Lasix-if weights continue to increase, pulmonary symptoms worsen, and/or edema worsens, would add chlorthali done rather than further increase Lasix-woul d need to aggressive ly monitor K and MgPt feeling better and edema improvedCl arify status of echo Edema of l ower extremity 321639486 R60.0 improved on increased LasixPreli m RLE venous u/s report neg DVT-contin ue EliquisFol low clinically [id number] REINIER TAYLOR PA-C [facility] on [address] [place] [phone] 3 06/08/2021 11:23:35 06/14/2021 15:14:58 Acute on chronic diastolic heart failure 588227386 I50.33 Currently compensate d and improvedRe nal function and Mg ok on diureticsF ollow clinically and follow labs [id number] REINIER TAYLOR PA-C [facility] on [address] [place] [phone] 3 06/12/2021 12:39:05 06/14/2021 15:48:45 Acute on chronic diastolic heart failure 677534156 I50.33 WorseSTAT labs: CBCD, CMP, TSH, Troponin T HS Gen5, Mg, Nt-ProBNPA dd chlorthali done 50 mg po x 1 then 25 mg po daily-BMP, Mg on 06/15-need to closely monitor K and Mg on chlorthali doneBP, HR, RR bidDaily weightsCla rify status of echoFollow clinically Persistent atrial fibrillation 368090878 I48.19 Remains in A-fib on exam-rate- controlled on auscultati onon full anticoagul ation with EliquisMon itor and f/u prn [id number] REINIER TAYLOR PA-C [facility] on [address] [place] [address] [phone] 3 06/13/2021 09:57:20 06/20/2021 15:18:07 Acute on chronic diastolic heart failure 370254168 I50.33 Unchanged but should be starting chlorthali done today-need to aggressive ly monitor K and Mg on chlorthali done since potent depleterLa bs from yesterday reassuring Continues to have intermitte nt tachycardi a-diastoli c dysfunctio n may not be able to tolerate rate-may need to improved rate controlFol low clinically [id number] REINIER TAYLOR PA-C [facility] on [address] [place] [address] [phone] 3 06/16/2021 12:09:18 06/27/2021 15:41:11 Acute on chronic diastolic heart failure 307953067 I50.33 Chlorthali done 25 mg po x 1 extra dose today to make the 50 mg loading dose he missedRe-r equest daily weights and that they be entered in PCCContinu e Lasix 80 mg po bidFollow divalents and Mg Persistent atrial fibrillation 175272552 I48.19 Remains in A-fib on exam-rate- controlled on auscultati on although usually hovers at upper limit of normal, bordering on tachycardi a-med compliant- consider increasing Cardizemon full anticoagul ation with EliquisMon itor and f/u prn [id number] REINIER TAYLOR PA-C [facility] on [address] [place] [address] [phone] 3 06/22/2021 10:16:22 06/28/2021 09:44:03 Acute on chronic diastolic heart failure 936095008 I50.33 Clinically improved with addition of chlorthali doneChange admin time of Lasix from 0900 and 1700 to 0600 and 1400Stable renal function despite Lasix and chlorthali done suggests he still has more fluid to giveK and Mg have been ok despite addition of chlorthali doneDAILY WEIGHTS and enter results in PCCCBCD, BMP, Mg on 06/26/21Co nsider referral back to [facility] Persistent atrial fibrillation 996240227 I48.19 Change admin time of Lopressor from 0900 and 1700 to 0900 and 2100 to maximize coverageIn crease Cardizem CD from 360 mg po daily to max dose of 420 mg po daily-may need split-dose for more consistent rate control Has been on Effexor since prior to the tachycardi a so will continue for now but might benefit from alternativ e agentBP and HR bid Improved rate-contr ol should also help with CHF management on full anticoagul ation with Eliquis Consider referral back to cards Monitor and f/u prn Edema of l ower extremity 006951120 R60.0 Improved with addition of chlorthali doneRLE venous u/s neg for DVT x 2Remains on full anticoagul ation with EliquisFol low clinically Chronic anemia 049326056 D64.9 Stool guaiac x 3 were negativeCo nsider PPI, which was added when H&H dropped significan tlyH&H improved Chronic cough 47409528 R 05.3 Continue prn cough syrupleave PPI on for now as may be manifestat ion of GERDcontro l CHF as may also be manifestat ion of that as well [id number] REINIER TAYLOR PA-C [facility] on [address] [place] [address] [phone] 3 06/23/2021 15:53:22 06/30/2021 09:47:41 Chronic diastolic heart failure 698522949 I50.32 ImprovedWe ight downFollow divalents, renal function, and MgFollow clinically [id number] REINIER TAYLOR PA-C [facility] on [address] [place] [address] [phone] 3 06/27/2021 10:27:59 07/04/2021 16:05:42 Chronic diastolic heart failure 372381832 I50.32 Edema improvedWe ights overall downTachyc ardia improvedK down, Mg, BUN/Cr tending up on chlorthali doneNot sure that dyspnea is exclusivel y related to CHF Drug-induc ed hypokalemia 434540764 E87.6 Critically low K today but Mg okStart KCl 40 mEq po tid today then once daily going forwardMon itor divalents and Mg Tachycardia 9520031 R00. 0 Improved on increased Cardizem without significan t reduction in BPMonitor and f/u prn Dyspnea 428605669 R06.00 Multifacto rial-Chron ic HFpEF, now on agressive diuresis-H x PE, on full anticoagul ation with Eliquis and recent neg RLE venous u/s x 2-Prob SIRIA given obesity-RR T consult for possible in-house sleep study [id number] AMA Dasilva [facility] on [address] [place] [address] [phone] 3 07/03/2021 11:32:17 07/07/2021 10:53:48 Chronic diastolic heart failure 463872425 I50.32 compensate dWeight down 8.6 lbs from 06/30 to 311 today 07/03chlort halidone 25 mg qdlasix 80 mg bidKCL as below Drug-induc ed hypokalemia 836203419 E87.6 low K today at 2.8 but Mg ok at 2.2increas e KCl 40 mEq to 1 bid and recheck BMP on 07/04 and 07/06 Pain in right foot 87490 01770 67004 M79.671 suspect pain due to increased edemacheck cbc with diff on 07/04 due to erythema notedmonit or for worsening sxs [id number] REINIER T[facility]LOR [facility] [address] [place] [address] [phone] 3 07/04/2021 09:52:41 07/07/2021 11:23:50 Acute on chronic diastolic heart failure 995332885 I50.33 Improved and weights overall downNo change to current medsdecrea se weights to q M-W-F Drug-induc ed hypokalemia 786048878 E87.6 specimen today slightly hemolyzed, so true K may be even lowerIncre ase KCl from 40 mEq po bid to tidAlready has BMP scheduled for 07/06Add Mg level for 07/06 labs Persistent atrial fibrillation 989327172 I48.19 Apical HRs only for accuracy-i f continues to be on higher end, consider adding Dig as does not seem BPs consistent ly have room for increasing B-karolina and already on max dose Cardizem on full anticoagul ation with Eliquis Consider referral back to cards Monitor and f/u prn Dyspnea 554705864 R06.00 Spoke with [employer] about possible in-house sleep study. She will assess the patient and make recommenda tions for further testing. [id number] REINIER TAYLOR PA-C [facility] on [address] [place] [address] [phone] 3 07/06/2021 11:14:24 07/11/2021 10:12:44 Weight gain 2143104 R63.5 re-weigh pt Drug-induc ed hypokalemia 643789622 E87.6 Therapeuti c KMg therapeuti cCBCD, BMP, Mg on 07/17/21 [id number] REINIER TAYLOR PA-C [facility] on [address] [place] [address] [phone] 3 07/07/2021 15:09:13 07/13/2021 15:21:43 Acute on chronic diastolic heart failure 615599451 I50.33 Weights up despite aggressive diuresisWo rsening orthopnea and DOEchlorth alidone 25 mg po x 1 extra dose today then increase daily dose from 25 to 50 mgCBCD, BMP Mg on Saturday-K and Mg ok although may worsen on increased chlorthali doneContin ue Lasix 80 mg po bidContinu e thrice weekly weightsFol low clinically [id number] REINIER TAYLOR PA-C [facility] on [address] [place] [address] [phone] 3 07/10/2021 14:46:21 07/13/2021 15:41:47 Persistent atrial fibrillation 497759365 I48.19 with mild/mod RVRHRs remain elevated or upper end of normalBPs too soft to increase LopressorS tart Dig 125 mcg po daily to target rate-contr ol, as tachycardi a likely contributi ng to dyspnea in this patient with HFpEF-hold for HR <55-this is a conservati ve dose-not loading first since hemodynami saida stable-madeline ck level next weekFollow clinically on full anticoagul ation with EliquisMon itor and f/u prn [id number] REINIER TAYLOR PA-C [facility] on [address] [place] [address] [phone] 3 07/13/2021 13:45:36 07/17/2021 15:52:01 Acute on chronic diastolic heart failure 756312444 I50.33 Weights overall down since chlorthali done increasedC linically betterRena l function and divalents ok; Mg okNo changes needed in meds todayMonit or and f/u prn Edema of l ower extremity 533575732 R60.0 Improved with increased chlorthali doneRLE venous u/s neg for DVT x 2Remains on full anticoagul ation with EliquisCon tinue TEDsFollow clinically Drug-induc ed hypokalemia 764011478 E87.6 Technicall y therapeuti c K although at bottom of reference rangeMg therapeuti cContinue KCl 40 mEq po tidCBCD, BMP, Mg on 07/17/21 Persistent atrial fibrillation 041045082 I48.19 with mild RVR, slightly improved with addition of DigHas Dig level next week - expect it will be subtherape utic based on dosing relative to overall sizeon full anticoagul ation with EliquisMon itor and f/u prn [id number] REINIER TAYLOR PA-C [facility] on [address] [place] [address] [phone] 3 07/17/2021 09:44:05 07/20/2021 13:08:11 Edema of lower extremity 226256974 R60.0 d/c RLE venous u/s -- has already had 2 negative tests and remains on full anticoagul ation with Eliquis so low index of suspicion for VTENo evidence of cellulitis -d/c doxycyclin e and probioticU se the LOW wraps to BLE that were ordered last monthIncre ased participat ion in PT/OT mobilizing fluid; previously very sedentary Acute on c hronic diastolic heart failure 499225692 I50.33 Weights up again-not sure how much of this is CHF vs excessive caloric intakeLung s are clearOrtho pnea probably multifacto rial-waiti ng on results of sleep study-impr ove rate-contr olno change in diuretics for nowFollow clinically Consider referral back to cards Drug-induc ed hypokalemia 528326747 E87.6 KCl 40 mEq po x 1 extra dose todayBMP on han e admin time of KCl from 0900, 1300, 1700 to 0900, 1400, 2000Mg remained therapeuti cIf unable to achieve therapeuti c K, may need to change to alternativ e diuretic although the chlorthali done has been effective Persistent atrial fibrillation 967282285 I48.19 Dig level subtherape utic and HRs remain 80sIncreas e Dig from 125 to 250 mcg po q 1700-check level 1 week Chronic pain syndrome 37 7451536 G89.4 Adjust oxycodone IR from 5 mg po q 8 to q 6 h prn pain but NTE 3 doses per day-script for oxycodone IR 5 mg #90 no refills given to nurseConti nue PT/OT [id number] REINIER TAYLOR PA-C [facility] on [address] [place] [address] [phone] 3 07/19/2021 10:40:02 07/21/2021 15:39:52 Drug-induced hypokalemia 921625742 E87.6 K remains subtherape utic despite aggressive repletionK Cl 40 mEq po x 1 extra dose todayMg has been okWas not an issue until chlorthali done added (Dig prob also has worsened this since it also competes for potassium receptors) Will d/c chlorthali doneStart Aldactone, which is potassium- sparing, 50 mg po dailyConti nue KCl 40 mEq po tid x 24 hours then d/c KClRepeat BMP and Mg on SatFoll divalents and renal function Acute on c hronic diastolic heart failure 123973294 I50.33 Clinically improvedWe ights remain erraticFin ally getting LOW wraps instead of TEDsAdjust ing diuretics as aboveConsi lola referral back to [facility] Orthopnea 66343364 R06.0 1 Multifacto rialsleep study pendInterm ittent DOESchedul e PFTs-pt reports having had them done a very long time ago-does not recall where or what the results were-f/u when results are availableC onsider pulm consult Persistent atrial fibrillation 089390547 I48.19 Dig increased earlier this week due to subtherape utic levelHRs overall improvedd/ c Apical HR bidAdjust hold order for Dig to be apical HR <55d/c bid BP-change to bid once per week for now Hyponatremia 56765288 E8 7.1 MildSome fluctuatio nLikely secondary to diureticsF ollow divalents [id number] REINIER TAYLOR PA-C [facility] on [address] [place] [address] [phone] 3 07/20/2021 14:52:58 07/24/2021 16:37:43 Obstructive sleep apnea syndrome 78350452 G47.33 CPAPRRT also followingd /c PFTs for now [id number] REINIER TAYLOR PA-C [facility] on [address] [place] [address] [phone] 3 07/21/2021 13:25:40 07/27/2021 14:43:26 Obstructive sleep apnea syndrome 11887026 G47.33 Tolerated CPAP last night-mt mmended pt also use with daytime napsExpect daytime sleepiness to improveFol low clinically [employer] also following Edema of l ower extremity 138081078 R60.0 Improved today but has been variableCo ntinue Lasix and Chlorthali doneMonito r and f/u prn Chronic di astolic heart failure 556820963 I50.32 Weights continue to increaseBr eathing and edema better todayConti nue Lasix and AldactoneF ollow clinically Drug-induc ed hypokalemia 809072016 E87.6 K on low-end of normalFini shed KCl 40 mEq po tid 24 hours after starting Aldactone- anticipate K will improve on potassium- sparing diureticMg remains ok [id number] REINIER TAYLOR PA-C [facility] on [address] [place] [address] [phone] 3 07/24/2021 10:44:52 07/27/2021 14:58:48 Chronic diastolic heart failure 228076221 I50.32 Weights still upEdema worseNorma l renal function -- continues to suggest there is more fluid to giveContin ue Lasix 80 mg po bidIncreas e spironolac tone to 75 mg po dailyFollo w clinically ad follow labs Drug-induc ed hypokalemia 097363792 E87.6 K lower despite change from chlorthali done to spironolac toneKCl 40 mEq po bid todayIncre asing spironolac tone as above, which should helpFollow divalentsM g remains ok Longstandi ng persistent atrial fibrillation 297879097 I48.11 Rates improved on increased Dig although level remains subtherape uticLBW 151.06 at 3.4-5.1 mcg/kg/dos e = 233-349.5 mcg daily of Dig if calculated weight-bas ed-current ly on 250 mcg-no change for now since rates improved and since also changed from K-wasting to K-sparing diuretic, which will be increased today and which may further increase Dig levelsRepe at level 1 weeks Obstructiv e sleep apnea syndrome 14907000 G47.33 Tolerating CPAPRRT also following [id number] REINIER TAYLOR PA-C [facility] on [address] [place] [address] [phone] 3 07/25/2021 14:51:52 07/28/2021 11:24:37 Dyspnea 345654357 R06.00 Despite his complaints , he has been exercising in the rehab gym-at this point, some of the dyspnea may be solely atttributa ble to obesit and deconditio ningAldact one increase effective todayNo change in meds at this timeFollow clinically Edema of l ower extremity 670702326 R60.0 Aldactone increased effective todayMay reflect fluid mobilizati on from recent exerciseCo ntinue Lasix, Aldactone, and LOW wrapsNo evidence of cellulitis Monitor amd f/u prn [id number] Phyllis Harper MD [facility] on [address] [place] [address] [phone] 3 07/26/2021 07:17:34 07/28/2021 14:49:33 Chronic diastolic heart failure 888771584 I50.32 metoprolol 100 mg biddigoxin 0.25 mg dailyspiro nolactone 75 mg dailyfuros emidefu cardiology Chronic sciatica 9256717 01 M54.30 oxycodone 5 mg q12h prnLidocai ne patch to lower back dailycyclo benzaprine 10 mg tidAPAP 650 mg q6h prnwill monitorPT/ OT prn Alcohol dependence 77377 003 F10.20 acamprosat e 666 mg tidsocial service for support, offer AA, other interdisci plinary resources for sobrietywi monitor Persistent atrial fibrillation 496127497 I48.19 diltiazem ER 420 mg daily for rate control - consider tapermetop rolol 100 mg bid for rate controldig oxin 0.25 mg dailyapixa ban 5 mg bidwill monitor Gastroesop hageal reflux disease 975201544 K21.9 omeprazole 20 mg dailywill monitor Hypertensive disorder 38 557306 I10 diltiazem ER 420 mg daily - consider taper due to possible effect on peripheral edemametop rolol 100 mg bidwill monitor Mixed anxi ety and depressive disorder 549505274 F41.8 aripiprazo le 5 mg dailyvenla faxine ER 150 mg dailyvilaz odone 20 mg dailyzolpi dem 5 mg at hs for insomniawi ll monitor Peripheral edema 1656803 00 R60.0 suspect peripheral venous insufficie ncycontinu e LOW wrapsfuros emide 80 mg bidspirono lactone 75 mg dailyconsi lola taper diltiazem which can worsen peripheral edemawill monitor [id number] REINIER TAYLOR PA-C [facility] on [address] [place] [address] [phone] 3 07/27/2021 10:48:52 08/01/2021 16:32:33 Weight gain 7125524 R63.5 Confirmed on re-weighAl dactone increased- could further increase vs change to alternativ e diuretic such as metolazone -had done well with chlorthali done but required more than KCl 40 mEq po tidNo changes todayFollo w clinically Drug-induc ed hypokalemia 647029133 E87.6 Resolved off chlorthali done and on spironolac toneFollow divalents [id number] REINIER TAYLOR PA-C [facility] on [address] [place] [address] [phone] 3 07/28/2021 13:25:04 08/01/2021 17:12:56 Weight gain 1541985 R63.5 Unclear why pt has gained 15 lbs in ~1 weekOnly complaint is orthopnea and LE edemaExam benign other than for LE edema, which is chronicall y asymmetric HR controlled Not on any nutritiona l supplement sBiochemic ally euthyroid as of last month's labsCBCD, BMP, Mg, Dig level on SaturdayCon ider increasing Aldactone vs change to metolazone now that K has been correctedI ncrease weights back to daily Obstructiv e sleep apnea syndrome [id number] G47.33 CPAPRRT also following Drug-induc ed hypokalemia 587882109 E87.6 Resolved off chlorthali done and on spironolac toneFollow divalents Persistent atrial fibrillation 624653274 I48.19 Rate improved with DigConside r taper Ca++ karolina due to edemaDig level full anticoagul ation with Eliquis [id number] REINIER TAYLOR PA-C [facility] on [address] [place] [phone] 3 07/31/2021 11:56:01 08/02/2021 13:05:37 Weight gain 7084658 R63.5 Weight now down 5 lbs since 3 days agoOnly complaint is orthopnea and LE edemaExam benign other than for LE edema, which is chronicall y asymmetric HR still could be improvedNo t on any nutritiona l supplement sBiochemic ally euthyroid as of last month's labsDaily weights Edema of l ower extremity 412706774 R60.0 Chronicall y asymmetric with R >LNo evidence of cellulitis -Doxy d/c'd last eveningU/S d/c'd last evening since 2 prior neg and on Eliquis so very low index of suspicion for DVTEdema improves with leg elevation and LOW wraps-bone ge LOW wraps to thigh-high , wear at all times-may remove for hygiene and when participat ing in rehabEdema likely reflects 3rd spacing from fluid overload as well as fluid mobilizati on from exerciseCo nsider taper Cardizem since can cause peripheral edema but still need better rate controlCon tinue Lasix 80 mg po bidIncreas e Aldactone to 100 mg po daily-acshelly sousa this is a relatively weak diuretic-i f no significan t improvemen t at 100 mg, will d/c Aldactone and use metolazone , especially now that hypokalemi a has resolvedFo llow clinically Chronic di astolic heart failure 959123891 I50.32 Weights improved as noted aboveEdema variable and influenced by leg elevation and compressio nOnly pulmonary complaint is persistent orthopnea (see below)Give n that his renal function remains surprising ly normal despite aggressive diuresis, he is likely still hypervolem ic Orthopnea 47680305 R06.0 1 Multifacto rial-CHF-O SA-Obesity -Possible anxiety Increasing Aldactone as aboveConti nue CPAPContin ue sleeping with HOB elevated Persistent atrial fibrillation 438482709 I48.19 Rate consistent ly under 100 since Dig added and increased but remain mostly 80s-90sNee d better rate control given diastolic dysfunctio nDig level remains subtherape utic despite concomitan t Aldactone- has not missed any doses-may increase with increased Aldactone- Continue 250 mcg po daily-repe at Dig level 1 weekContin ue Cardizem CD 420 mg po daily for now although would be ideal to taper due to edema and to minimize polypharma cyRemains on full anticoagul ation with Eliquis Drug-induc ed hypokalemia 506040903 E87.6 Resolved off chlorthali done and on spironolac toneFollow divalentsM g remains therapeuti c [id number] REINIER TAYLOR PA-C [facility] on [address] [place] [address] 08/01/2021 11:05:25 08/07/2021 12:52:34 Edema of lower extremity 889592517 R60.0 Chronicall y asymmetric with R >LImproved with thigh-high LOW wraps and elevationW eight down but still overall up-reliabi lity and validity of scales is of great concern-nu rsing roofing plant supervisor awareConti nue:- Lasix 80 mg po bid-Aldact one 100 mg po daily-cons ider change to metolazone Acute on c hronic diastolic heart failure 986856790 I50.33 Intermitte ntly decompensa scott to some degreeCurr ently compensate dWeights down but overall upNormal kidney function indicates he most certainly has room for additional diuresis-c onsider change Aldactone to metolazone Follow weights although they are probably not reliableFo llow clinically Has labs pend Saturday-div alents, Mg, and renal function have been ok [id number] REINIER TAYLOR PA-C [facility] on [address] [place] [address] [phone] 3 08/02/2021 09:34:53 08/07/2021 13:21:42 Edema of lower extremity 049967483 R60.0 Chronicall y asymmetric with R >LWeight up but likely not valid given previously irregular results without clinical correlatio n Acute on c hronic diastolic heart failure 350746506 I50.33 Clinically compensate dNot sure weight gain is validConti nue Lasix and Aldactone [id number] REINIER TAYLOR PA-C [facility] on [address] [place] [address] [phone] 3 08/03/2021 14:56:50 08/07/2021 13:38:51 Acute on chronic diastolic heart failure 315200249 I50.33 Clinically compensate dWeight is doubtfully valid-cons ider decreasing weights to just once weekly since they don't correlate clinically Continue Lasix and Aldactone Pain in ri ght lower limb 562011440 M79.604 d/c prn oxycodones chedule oxycodone IR 5 mg po q 0900, 1300, 1700, hsPt in agreement with plan Persistent atrial fibrillation 065772959 I48.19 Rate-contr olled despite subtherape utic Dig levelRemai ns on full anticoagul ation with Eliquis [id number] REINIER TAYLOR PA-C [facility] on [address] [place] [address] [phone] 3 08/04/2021 10:20:01 08/08/2021 08:24:04 Chronic diastolic heart failure 586735528 I50.32 Clinically improvedd/ c daily weights since they don't seem valid or reliable and don't correlate clinically Consider changing Lopressor 100 mg po bid to Toprol XL200 mg po dailyFollo w clinically Persistent atrial fibrillation 815426494 I48.19 Rate-contr olled despite subtherape utic Dig level-has Dig level pend SaturdayRem ins on full anticoagul ation with Eliquis [id number] REINIER TAYLOR PA-C [facility] on [address] [place] [address] [phone] 3 08/07/2021 09:58:23 08/10/2021 13:23:51 Chronic diastolic heart failure 194864401 I50.32 Compensate dClinicall y betterNo change in medsClarif y status of labs ordered for today as they do not appear to have been drawn Edema of l ower extremity 027508981 R60.0 Chronicall y asymmetric with R >LImproved . Diuretics as above Persistent atrial fibrillation 040448099 I48.19 Rate-contr olledRemai ns on full anticoagul ation with Eliquis [id number] REINIER TAYLOR PA-C [facility] on [address] [place] [address] [phone] 3 08/09/2021 09:16:32 08/14/2021 15:07:05 Chronic diastolic heart failure 091935284 I50.32 Compensate dClinicall y betterK normal on AldactoneM g historical ly therapeuti cHR controlled Edema of l ower extremity 059521629 R60.0 Chronicall y asymmetric with R >L Persistent atrial fibrillation 743601920 I48.19 Rate-contr olled and overall improved with addition of Dig-ok that level is slightly subtherape uticRemain s on full anticoagul ation with Eliquis [id number] REINIER TAYLOR PA-C [facility] on [address] [place] [address] [phone] 3 08/11/2021 09:35:10 08/14/2021 15:34:38 Edema of lower extremity 950247664 R60.0 Chronicall y asymmetric with R >LImproved Worse overnight likely due to inability to elevate yesterday and less compressio n time from LOW wrapsNo cardiopulm onary concernsMo nitor and f/u prn [id number] REINIER TAYLOR PA-C [facility] on [address] [place] [address] [phone] 3 08/14/2021 13:14:25 08/16/2021 13:58:57 Edema of lower extremity 532225965 R60.0 Chronicall y asymmetric with R >LImproved LOW wrapsNo cardiopulm onary concerns and no evidence of infectionM onitor and f/u prn Pain in ri ght lower limb 733787074 M79.604 Controlled on scheduled oxycodone. Pain yesterday related to missed doses while on LOANo changes needed Longstandi ng persistent atrial fibrillation 455161647 I48.11 Tachy today during vitals but not on exam-HR needs to be apical to be reliableRe lance on Dig, dilt, and Eliquisf/u prn [id number] REINIER TAYLOR PA-C [facility] on [address] [place] [address] [phone] 3 08/17/2021 16:18:24 08/21/2021 12:47:15 Edema of lower extremity 833972783 R60.0 Chronicall y asymmetric with R >LRLE much worse todayMetol azone 2.5 mg po daily-star t when available- goal will be to have this just thrice weeklyCont inue Aldactone 100 mg po q am and Lasix 80 mg po bid-depend ing on K and Mg levels, may be able to taper Aldactone- worst case scenario, low-dose Aldactone would be continued for its K-sparing properties if hypokalemi a becomes a big issue again.CBCD , BMP, Mg on SaturdayNo cardiopulm onary concerns and no evidence of infectionC onsider tapering Ca++ blockerMon itor and f/u prn Chronic di astolic heart failure 786661248 I50.32 Compensate dClinicall y betterK normal on AldactoneM g historical ly therapeuti cHR controlled Persistent atrial fibrillation 399412021 I48.19 Rate-contr olled and overall improved with addition of Dig-ok that level is slightly subtherape uticRemain s on full anticoagul ation with EliquisCon dispatch coordinator taper Ca++ karolina due to edema [id number] Phyllis Harper MD [facility] on [address] [place] [address] [phone] 3 08/18/2021 06:54:02 08/21/2021 13:09:32 Chronic diastolic heart failure 104157643 I50.32 metoprolol 100 mg biddigoxin 0.25 mg dailyspiro nolactone 100 mg dailymetol azone 2.5 mg daily - follow electrolyt es/fluid balance closely and consider taperfuros emide 80 mg bidfu cardiology Chronic sciatica 6488740 01 M54.30 oxycodone 5 mg qidLidocai ne patch to lower back dailycyclo benzaprine 10 mg tidAPAP 650 mg q6h prnwill monitorPT/ OT prn Persistent atrial fibrillation 968129473 I48.19 diltiazem ER 420 mg daily for rate control - consider tapermetop rolol 100 mg bid for rate controldig oxin 0.25 mg dailyapixa ban 5 mg bidwill monitor Alcohol dependence 78392 003 F10.20 acamprosat e 666 mg tidsocial service for support, offer AA, other interdisci plinary resources for sobrietywi ll monitor Mixed anxi ety and depressive disorder 579158275 F41.8 aripiprazo le 5 mg dailyvenla faxine ER 150 mg dailyvilaz odone 20 mg dailyzolpi dem 5 mg at hs for insomniawi ll monitor Hyperlipidemia 25943681 E78.49 atorvastat in 40 mg dailywill monitor Peripheral edema 4054001 00 R60.0 suspect peripheral venous insufficie ncyACE wrapsfuros emide 80 mg bidspirono lactone 100 mg dailyconsi lola taper diltiazem which can worsen peripheral edemametol azone 2.5 mg daily -will watch electrolyt es and fluid statusenco urage lower salt dietwill monitor [id number] REINIER TAYLOR PA-C [facility] on [address] [place] [address] [phone] 3 08/21/2021 10:16:08 08/23/2021 14:10:03 Edema of lower extremity 267049937 R60.0 Chronicall y asymmetric with R >LSignific antly improvedHa s labs pend for tomorrowGo al is to taper Aldactone although may need to keep low dose depending on KConsider taper Ca++ karolina Insomnia c o-occurrent and due to medical condition [id number] 9105 G47.01 Lengthy discussion with pt Fall on sa me level from slipping, tripping or stumbling 430297914 W01.0XXA Post-fall neuro and nursing assessment s per facility protocolNo evidence of injury at this timeMonito r and f/u prn [id number] REINIER TAYLOR PA-C [facility] on [address] [place] [address] [phone] 3 08/22/2021 14:13:39 08/28/2021 14:33:14 Edema of lower extremity 112990060 R60.0 Chronicall y asymmetric with R >LSignific antly improvedDe crease metolazone to 2.5 mg po q M-W-FConti nue Lasix 80 mg po bid and Aldactone 100 mg po dailyDecre ase Cardizem CD from 420 mg po daily 360 mg po daily-tape r as HR allows Drug-induc ed hypokalemia 632457349 E87.6 K low since metolazone added-decr easing as aboveKCl 40 mEq po bid todayBMP Mg remains therapeuti c [id number] REINIER TAYLOR PA-C [facility] on [address] [place] [address] [phone] 3 08/24/2021 11:24:34 08/30/2021 10:33:09 Edema of lower extremity 571043675 R60.0 Chronicall y asymmetric with R >LSignific antly improvedd/ c Aldactone 100 mg po q amStart Aldactone 75 mg po bid to offset hypokalemi a fro metolazone Continue Lasix 80 mg po bidContinu e metolazone 2.5 mg po q M-W-FTrial decrease Cardizem CD from 420 to 360 mg po dailyFollo w clinically Drug-induc ed hypokalemia 763127277 E87.6 KCl 40 mEq po tid today, bid on 08/25, and daily on 08/26 and 08/27BMP, Mg, Dig level on 08/28 Chronic di astolic heart failure 433589161 I50.32 Compensate dDiuretics as above Persistent atrial fibrillation 775371997 I48.19 rate-contr olled on Dig and Cardizem [id number] REINIER TAYLOR PA-C [facility] on [address] [place] [address] [phone] 3 08/29/2021 10:39:03 09/05/2021 15:06:13 Edema of lower extremity 320484385 R60.0 Chronicall y asymmetric with R >LContinue s to improveDec rease metolazone from 2.5 mg po q -- to 2.5 mg po q W and SatDecreas e Cardizem CD from 360 mg to 300 mg po dailyBMP Saturday, 09/01 Drug-induc ed hypokalemia 601634018 E87.6 KCl 40 mEq po bid then 40 mEq po once daily starting 08/30/21 Persistent atrial fibrillation 125565874 I48.19 Rate-contr olledDig therapeuti cToleratin g Ca++ karolina taperDecre ase Cardizem as aboveRemai ns on full anticoagul ation with Eliquis [id number] REINIER TAYLOR PA-C [facility] on [address] [place] [address] [phone] 3 08/30/2021 18:48:49 09/05/2021 15:18:57 Edema of lower extremity 042895128 R60.0 Chronicall y asymmetric with R >LContinue s to improveAnt icipate will further improve as Ca++ karolina is taperedGoa l is to d/c metolazone , which should also resolve hypokalemi a and then KCl can be d/c'dOrtho pnea when silent in bed probably related to obesity and some degree of anxiety since talking while flat creates a distractio n-doubtful ly related to CHFFollow clinically [id number] REINIER TAYLOR PA-C [facility] on [address] [place] [address] [phone] 3 09/01/2021 14:26:09 09/06/2021 09:45:38 Edema of lower extremity 368541747 R60.0 Chronicall y asymmetric with R >LContinue s to improveAnt icipate will further improve as Ca++ karolina is tapered Follow clinically Drug-induc ed hypokalemia 120986578 E87.6 ResolvedDe crease KCl from 40 mEq po daily to 20 mEq po dailyBMP 09/07 [id number] REINIER TAYLOR PA-C [facility] on [address] [place] [address] [phone] 3 09/06/2021 20:11:57 09/12/2021 09:07:53 Edema of lower extremity 702365081 R60.0 Chronicall y asymmetric with R >LWorse since metolazone decreasedW ill give metolazone 2.5 mg po x 1 extra dose today then resume -W- scheduleWe ight overall down and lungs clearFollo w clinically Persistent atrial fibrillation 755404380 I48.19 HR seems to be creeping up a little on decreased Cardizem-n o changes in meds for now-Dig level therapeuti c on last checkRemai ns on full anticoagul ation with Eliquis [id number] REINIER TAYLOR PA-C [facility] on [address] [place] [address] [phone] 3 09/07/2021 12:31:46 09/14/2021 14:45:49 Edema of lower extremity 221911667 R60.0 Chronicall y asymmetric with R >LImproved with restoratio n of previous metolazone dose Drug-induc ed hypokalemia 651006275 E87.6 Therapeuti c K despite decreased KClMay worsen now that metolazone back to thrice weeklyFoll labs [id number] REINIER TAYLOR PA-C [facility] on [address] [place] [address] [phone] 3 09/19/2021 14:02:59 09/25/2021 16:14:35 Edema of lower extremity 476369426 R60.0 Chronicall y asymmetric with R >LNearly resolvedHo ld on further taper of Ca++ karolina since HRs have crept up a littleNo evidence of cellulitis Consider change LOW wraps to prn since edema nearly resolvedCo nsider increasing Aldactone in order to d/c metolazone , which would likely allow for d/c KCld/c Na restrictio n on dietMonito r and f/u prn Chronic di astolic heart failure 242302404 I50.32 Compensate d without evidence of volume overload on examSee plan for edema above Persistent atrial fibrillation 667732736 I48.19 HR seems to be creeping up a little on decreased Cardizem-n o changes in meds for now-Dig level therapeuti c on last checkBPs really don't have room to increase B-blockerR emains on full anticoagul ation with EliquisMon itor and f/u prn Orthopnea 38264847 R06.0 1 Most likely secondary to obesity-de creased chest expansion from effect of abdomen when more supineCont inue sleeping with HOB elevatedEn courage compliance with CPAP as he previously reported feeling better when he was first using it. Obstructiv e sleep apnea syndrome 04898923 G47.33 Encourage compliance with CPAPRRT also following [id number] REINIER TAYLOR PA-C [facility] on [address] [place] [address] [phone] 3 09/26/2021 13:32:56 10/04/2021 15:08:32 Edema of lower extremity 846920499 R60.0 Chronicall y asymmetric with R >LMostly resolvedHo ld on further taper of Ca++ karolina since HRs on higher end of range and he has previously demonstrat ed intoleranc e to tachycardi aNo evidence of cellulitis Consider increasing Aldactone in order to d/c metolazone , which would likely allow for d/c KClK therapeuti cMg previously therapeuti cMonitor and f/u prn Drug-induc ed hyponatremia 044007444 E87.1 Serum Na acceptable -may need to adjust diuretics Drug-induc ed hypokalemia 247881773 E87.6 Remains therapeuti c on KCl although at low end of range-cont inue KClFollow divalents Azotemia 168939945 R79.8 9 Reflects somewhat aggressive diuresisMa y be able to trial reduction in diuretics at some point in the future [id number] REINIER TAYLOR PA-C [facility] on [address] [place] [address] [phone] 3 09/27/2021 20:11:22 10/04/2021 15:20:31 Drug-induced hyponatremia 785924570 E87.1 Na down furtherRep eat BMP next week-if still hyponatrem ic, will need to adjust diuretics [id number] REINIER TAYLOR PA-C [facility] on [address] [place] [address] [phone] 3 10/03/2021 14:08:46 10/10/2021 20:06:42 Drug-induced hyponatremia 819773349 E87.1 WorseTrial decrease Lasix from 80 mg po bid to 60 mg po bidContinu e Aldactone 75 mg po bidContinu e metolazone 2.5 mg po q --FRepea t BMP with Mg 1 weekFollow clinically [id number] REINIER TAYLOR PA-C [facility] on [address] [place] [phone] 3 10/11/2021 11:22:51 10/17/2021 10:37:53 Drug-induced hyponatremia 017569399 E87.1 See if can add serum osm to labs drawn; otherwise, draw SaturdayUo , Dov, UCrBMP SaturdayLasi x recently reduced but continues with Aldactone and metolazone as well Chronic di astolic heart failure 649386170 I50.32 Compensate d without evidence of volume overload on examWeight overall downLasix recently decreased but still worsening NaFollow clinically Persistent atrial fibrillation 246305794 I48.19 Still borderline tachy at times-no change to Ca++ karolina-Di g level therapeuti c on last checkBPs really don't have room to increase B-blockerR emains on full anticoagul ation with EliquisMon itor and f/u prn Edema of l ower extremity 749412510 R60.0 Chronicall y asymmetric with R >LMostly resolvedHo ld on further taper of Ca++ karolina since borderline tachycardi c and he has previously demonstrat ed intoleranc e to elevated HRsNo evidence of cellulitis Continue diureticsE ncourage compliance with LOW wrapsMg previously therapeuti cMonitor and f/u prn Obstructiv e sleep apnea syndrome 67035249 G47.33 Encourage compliance with CPAPRRT also following Venous sta sis ulcer with edema of right lower leg [id number] 2447940 L97.919 No evidence of infectionL ocal care as recommende d by infection prevention nurseConsi lola Vit C and ZincWound SLIDE DEVELOPER to see next weekMoitor and f/u prn [id number] REINIER TAYLOR PA[facility]C [facility] on [address] [place] [address] [phone] 3 10/13/2021 14:38:39 10/26/2021 08:59:02 Chronic hyponatremia 81147108 E87.1 Likely diuretic-i nduced, moderate-D ecrease Lasix again-from 60 mg po bid to 40 mg po bidBMP understand s we may need to implement a fluid restrictio n- Fresca is better than beer. Edema of l ower extremity 268377159 R60.0 Chronicall y asymmetric with R >LMostly resolvedHo ld on further taper of Ca++ karolina since borderline tachycardi c and he has previously demonstrat ed intoleranc e to elevated HRsNo evidence of cellulitis Adjusting diuretics as aboveEncou rage compliance with LOW wrapsMonit or and f/u prn [id number] REINIER TAYLOR PA[facility]C [facility] on [address] [place] [address] [phone] 3 10/17/2021 13:43:31 10/26/2021 09:50:35 Drug-induced hyponatremia 223091270 E87.1 Hypovolemi c hyponatrem Hafsa negligibly improvedTo lerating reduced LasixWill continue to try to taper diuretics [id number] REINIER TAYLOR PA-C [facility] on [address] [place] [address] [phone] 3 10/20/2021 17:56:16 10/31/2021 11:13:25 Edema of lower extremity 420733245 R60.0 tolerating decreased LasixMonit or and f/u prn Drug-induc ed hyponatremia 131296453 E87.1 Wasn't an issue until metolazone was introduced , which is a thiazide diureticCo uld increase spironolac tone (max 200 mg/d) to manage edema and allow for d/c KCl and taper of metolazone Follow divalents [id number] REINIER TAYLOR PA[facility]C [facility] on [address] [place] [address] [phone] 3 10/23/2021 16:53:21 10/31/2021 11:48:43 Edema of lower extremity 970480564 R60.0 Chronicall y asymmetric with R >LWorse on decreased Lasix-will give Lasix 40 mg po x 1 extra dose today then increase back to 60 mg po bidFollow clinically Drug-induc ed hyponatremia 064450944 E87.1 Has BMP pend again this weekWill increase KCl from 20 mEq po daily to 40 mEq since has room based on prior serum K-increase d KCl should also help improve hyponatrem ia although still may need fluid restrictio n Serous bulla of skin 846 338243 R23.8 Protect while intactWoun d SLIDE DEVELOPER following -- should be rounding tomorrowMo nitor area for cellulitis [id number] REINIER TAYLOR PA-C [facility] on [address] [place] [address] [phone] 3 10/26/2021 14:04:26 11/07/2021 13:14:20 Edema of lower extremity 211871437 R60.0 Chronicall y asymmetric with R >LImproved with restoratio n of previous Lasix dose although was on 80 mg po bid at one pointFollo w clinically Drug-induc ed hyponatremia 061660295 E87.1 Await labs [id number] RIENIER TAYLOR PA-C [facility] on [address] [place] [address] [phone] 3 10/27/2021 14:11:35 11/08/2021 16:16:19 Serous bulla of skin 394188927 R23.8 Has since burstNo evidence of infectionW ound SLIDE DEVELOPER also followingF ollow clinically [id number] REINIER TAYOLR PA-C [facility] on [address] [place] [address] [phone] 3 11/02/2021 16:34:05 11/15/2021 10:11:08 Edema of lower extremity 206467028 R60.0 Chronicall y asymmetric with R >LImproved and essentiall y back to baselineNo evidence of cellulitis Drug-induc ed hyponatremia 802465883 E87.1 Clarify status of previously ordered labs [id number] REINIER TAYLOR PA-C [facility] on [address] [place] [address] [phone] 3 11/09/2021 17:55:29 11/20/2021 14:26:11 Drug-induced hyponatremia 323507866 E87.1 Improved with increased KMonitor and f/u prn Edema of l ower extremity 688681013 R60.0 Chronicall y asymmetric with R >LImproved and essentiall y back to baselineNo evidence of cellulitis Drug-induc ed hypokalemia 782861603 E87.6 Therapeuti c and tolerated recent increase in supplement Follow divalents [id number] REINIER TAYLOR PA[facility]C [facility] on [address] [place] [address] [phone] 3 11/17/2021 13:16:22 11/28/2021 15:58:00 Edema of lower extremity 359396407 R60.0 Chronicall y asymmetric with R >LBack to baselineNo evidence of cellulitis Drug-induc ed hyponatremia 694474080 E87.1 Improved with increased KMonitor and f/u prn Acute nont raumatic kidney injury 5703857791 32564 N17.9 Trial decrease Lasix from 60 mg po bid to 60 mg po bid alternatin g with 40 mg po bid - start 11/19Hold Lasix 11/18U/A for completene ssRepeat labs 1 week [id number] REINIER TAYLOR PA-C [facility] on [address] [place] [address] [phone] 3 11/23/2021 14:59:16 12/13/2021 10:47:18 Malaise 228606372 R53.81 non-specif iclabs okU/A negFollow clinically Edema of l ower extremity [id number] R60.0 Chronicall y asymmetric with R >LBack to baselineNo evidence of cellulitis Drug-induc ed hyponatremia 675173820 E87.1 Continues to improve with increased KMonitor and f/u prn Drug-induc ed hypokalemia 905590383 E87.6 Still therapeuti c but trending upMay need to adjust dosingFoll ow divalents Acute nont raumatic kidney injury [id number] 57545 N17.9 Lasix held then decreasedU /A negRemains on metolazone and spironolac toneBUN slightly improved but Cr slightly upFollow labs [id number] REINIER TAYLOR PA-C [facility] [address] [place] [address] [phone] 3 11/24/2021 16:14:31 12/13/2021 11:00:15 Malaise [id number] R53.81 Resolvedf/ u prn [id number] REINIER TAYLOR PA-C [facility] on [address] [place] [address] [phone] 3 12/05/2021 10:43:50 12/18/2021 16:06:42 Edema of lower extremity 017329229 R60.0 Chronicall y asymmetric with R >LBack to baselineNo evidence of cellulitis Increase RLE dressing changes to bid due to increased drainage-w ound SLIDE DEVELOPER following Drug-induc ed hyponatremia 503388126 E87.1 near-jim l with increased KFollow divalentsM onitor and f/u prn Always hungry 540788226 R63.8 RD consult Drug-induc ed hypokalemia 968124188 E87.6 Therapeuti cPrior Mg okFollow labs Persistent atrial fibrillation 372172263 I48.19 Overall rate-contr olledRemai ns on full anticoagul ation with EliquisMon itor and f/u prn [id number] Phyllis Harper MD [facility] on [address] [place] [address] [phone] 3 12/08/2021 08:32:14 12/13/2021 13:52:30 Chronic diastolic heart failure 498047236 I50.32 metoprolol 100 mg biddigoxin 0.25 mg dailyspiro nolactone 75 mg bidmetolaz one 2.5 mg daily on M, W, Ffurosemid e 40 mg bid alternatin g with 60 mg bidfu cardiology Persistent atrial fibrillation 257921888 I48.19 diltiazem ER 300 mg daily for rate controlmet oprolol 100 mg bid for rate controldig oxin 0.25 mg dailyapixa ban 5 mg bidwill monitor Dyslipidemia 580302204 E 78.49 atorvastat in 40 mg dailywill monitor Mixed anxi ety and depressive disorder 730843958 F41.8 aripiprazo le 2.5 mg dailyvenla faxine ER 150 mg dailyvilaz odone 20 mg dailyzolpi dem 5 mg at hs for insomniawi ll monitor Hypertensive disorder 38 385567 I10 diltiazem ER 300 mg dailyfuros emide 40 mg bid alternate with 60 mg bidmetolaz one 2.5 mg daily on M, W, Fspironola ctone 75 mg bidmetopro lol 100 mg bidwill monitor Gastroesop hageal reflux disease 753016720 K21.9 omeprazole 20 mg dailywill monitor Chronic pain 58237823 G8 9.29 cyclobenza dontrell 10 mg tidoxycodo ne 5 mg qidAPAP 650 mg q6h prnPT/OT prnwill monitor Alcohol dependence 45331 003 F10.20 acamprosat e 666 mg tidsocial service for support, offer AA, other interdisci plinary resources for continued sobrietywi monitor [id number] REINIER TAYLOR PA-C [facility] on [address] [place] [address] [phone] 3 12/19/2021 16:37:35 01/08/2022 15:40:56 Edema of lower extremity 318367938 R60.0 Chronicall y asymmetric with R >LBack to baselineNo pulm sxContinue current diuretic regimenf/u prn Drug-induc ed hyponatremia 209977306 E87.1 ResolvedCr up a tadFollow divalents and renal function [id number] REINIER TAYLOR PA-C [facility] on [address] [place] [address] [phone] 3 12/25/2021 15:38:11 01/16/2022 10:57:47 Contusion of face 552749027 S00.83XS diagnostic s non-acutee ducated pt that ecchymosis will likely spread caudally given Eliquisexa m otherwise benignf/u prn Fall on sa me level from slipping, tripping or stumbling 105914870 W01.0XXA Post-fall neuro and nursing assessment s per facility protocolPT /OT prn [id number] REINIER TAYLOR PA-C [facility] on [address] [place] [address] [phone] 3 12/27/2021 11:01:30 01/17/2022 16:00:45 Painful mouth 399012991 K13.79 s/p extraction scontinue oxycodone IR 5 mg po qid scheduledA dd oxycodone IR 5 mg po q 8 h prn severe mouth pain x 1 week-ok to give anytime relative to scheduled dosescript for oxycodone IR 5 mg #90 no refills given to nurseAugme ntin as recommende d by dentist-be nefits of treatment outweigh risks of no-treatme nt in this patientFol low clinically [id number] REINIER TAYLOR PA-C [facility] on [address] [place] [address] [phone] 3 12/28/2021 16:06:44 01/16/2022 11:51:33 Cellulitis of right lower limb [id number] 5211813 L03.115 Already on Augmentin- benefits of abx outweigh risks of non-treatm ent in this patientFol low clinically [id number] REINIER TAYLOR PA-C [facility] on [address] [place] [address] [phone] 3 01/08/2022 17:06:50 01/23/2022 08:51:50 Painful mouth 818537167 K13.79 renew prn oxycodone for 5 daysf/u prn [id number] REINIER TAYLOR PA-C [facility] on [address] [place] [address] [phone] 3 01/16/2022 16:29:08 01/22/2022 16:18:31 Painful mouth 192745267 K13.79 prn oxycodone will not be extended since time from extraction s at this point should not require opiate analgesia Altered mental status 41 4295919 R41.82 Room search for suspicion of contraband Comprehens rebecca utox including methadone, bup, and fentanyl-s hould only be positive for oxycodoneH old sedating meds if sedatedFol low clinically [id number] Hank[facility]Valer[facility] [address] [place] [address] 11/04/2024 09:50:28 11/05/2024 20:27:51 Cellulitis of lower leg 629241337 L03.119 46648032 treated inpt with yeceniao and che s doppler neg for DVTID felt more like chronic venous insufficie ncy vs cellulitis no surgical interventi on at this timemonito r labs Persistent atrial fibrillation 419532032 I48.19 rate controlled with diltiazem 120mg qdcontinue eliquis 2.5mg BID, digoxin 0.25mg qdmonitor rate Major depr essive disorder 841987846 F33.1 Continue duloxetine 20mg qd, venlafaxin e XR 37.5mg qd, vilazodone 20mg qd, zolpidem 10mg qhsmonitor mood and consult if needed Alcohol dependence 35577 003 F10.20 continue to encourage abstinence Hypertensive disorder 38 141563 I10 Continue lasix 80mg qd, spironolac tone 50mg qdmonitor BP and labs Chronic di astolic heart failure 183012985 I50.32 euvolemic on examContin ue lasix 80mg qd, spironolac tone 50mg qd, potassium chloride 20meq qdmonitor fluid and respirator y status, labs and weights Dyslipidemia 171505187 E 78.49 Continue atorvastat in 40mg qhsmonitor lipids annually Gastroesop hageal reflux disease 878530044 K21.9 Continue omeprazole 20mg qdmonitor sxs History of pulmonary embolus 395655774 Z86.847 6185775 maintained on eliquis 2.5mg BID for afib Anemia 029878020 D64.9 stable on recent labsmonito r labs Continuous opioid dependence 206084259 F11.20 26044154 maintained on chronic opiates Chronic pain syndrome 37 4588833 G89.4 68406 continue oxycodone 10mg q4h PRN (takes 10mg q6h PRN at home) gabapentin 600mg q8h prn Benign pro static hyperplasia 515214379 N40.0 07961878 Continue flomax 0.4mg qhsupdate urology with concerns Gout 03765435 M10.9 597542322 no acute sxsContinu e allopurino l 100mg qdmonitor for flares Asthenia 84784993 R53.1 41420 Admit to services PT/OT for strengthen ing, balance, gait training, safety and function.C ontinue fall precaution s.Monitor for safety. 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 Health Concerns Section Related Observation LastModified by Organization Detai ls LastModified Time None Recorded Concern Status LastModified by Organization Details LastModified Time None Recorded Advance Directives Directive Y: Payers Insurance Date Sequence Insurance Name Policy Number Policy Joel Covered Member ID Joel Member ID Guarantor Name 11/04/2024 1 [place] [employer] Bennie Potts Jr [id number] Bennie Potts Jr 11/30/2024 2 [place] [facility]ie X Katlyn Guardado [id number] Bennie X Katlyn Jr 11/04/2024 2 [place] Bennie X Katlyn Guardado [id number] Bennie X Katlyn Guardado Notes Date Note Type Note Provider Name and Address Organization Details Recorded Time 12/27/2021 text/html ROS as noted in the HPI Pt seen today for acute rounding visit for post-dental extraction pain. Approached by pt who reported the aforementioned. Says the dentist gave him a rx for Percocet but he told the nurse he didn't need to fill it since he's already on oxycodone. Is requesting a brief course of prn oxycodone to target the acute pain. On Augmentin per dentist. PMHx reviewed Meds reviewed REINIER TAYLOR PA-C [address] , [address], [place], [address], [employer] 01/14/2022 19:04:31 12/28/2021 text/html ROS as noted in the HPI Pt seen today for acute rounding visit for RLE cellulitis. Asked to see pt for the above. Was seen this am by wound SLIDE DEVELOPER for RLE open area from site of prior bulla. Concerned that leg cellulitic. Happens to be on Augmentin post dental extractions. No significant RLE pain. No f/c/s. PMHx reviewed Meds reviewed REINIER TAYLOR PA-C [address] , [address], [place], [address], [facility] 01/14/2022 20:42:37 01/08/2022 text/html ROS as noted in the HPI Pt seen for acute rounding visit today for f/u dental infection. Pt with recent dental extractions and associated infection. Tx Augmentin. Would like prn oxycodone extended due to severe pain. Had brief course prn oxycodone last week for same reason. PMHx reviewed Meds reviewed REINIER TAYLOR PA-C [address] [facility], [address], [place], [address], [facility] [employer] 01/21/2022 13:41:28 01/16/2022 text/html ROS as noted in the HPI Pt seen for acute rounding visit today for mouth pain and AMS. Approached by pt who is requesting another extension of prn oxycodone due to mouth pain s/p dental extractions. Has already had 2 rounds of prn oxycodone in addition to his scheduled doses. Has completed an extended course of Augmentin that was rx by his dentist. Staff report pe has seemed very lethargic today, slurring words, and nodding off. Had gone out to breakfast this am with a friend. When observed standing against wall and nearly falling forward and asked if he was ok, he said, Yeah. I was just stretching. PMx reviewed Meds reviewed REINIER TAYLOR PA-C [address] [facility], [address], [place], [address], [employer] 01/21/2022 13:46:57 11/04/2024 text/html 64-year-old male presents for initial intake visit with past medical history significant for anxiety, depression, hypertension, hyperlipidemia, atrial fibrillation on Eliquis, chronic back pain on opiate analgesics, CHF, recurrent lower extremity swelling He presented to [facility] with right leg pain and concern for infection. Has had recurrent Right lower extremity swelling with skin discoloration and a few ulcers for the last 3 years. He developed worsening symptoms and leg pain a few days ago and started on keflex and doxycycline with no improvement. He was started on IV antibiotics vancomycin and Zosyn. ID was consulted, per ID recommendations less likely cellulitis more likely chronic venous insufficiency. Patient remained afebrile no leukocytosis currently for any signs of infection. Antibiotics were discontinued and surgery was consulted. Per vascular surgery no acute intervention follow-up outpatient for chronic venous insufficiency changes. He was evaluated by therapy with recs for rehab and discharged to [place] on 11/03/24 for STR/PT/OT MOL FULL CODE signed 11/03/24MORSE 45 Patient was discharged on oxycodone 5mg q8h but tells me that he takes 10mg q4h. Per ED note, appears he was taking 10mg q6h outpatient, will need to confirm. Okay with temporary increase but will confirm with PCP Cresencio is [address] [facility], [address], [place], [address], [facility] 11/04/2024 12:27:30
--- OUTSIDE RECORDS SUMMARY | 2025-03-14 19:30 | XMS_ITS | Encounter Summary ---
Author Organization [facility] Address [address] [place] [address] Phone Care Team Providers Care Food Service Representative Name Role Phone Pcp, Unknown Primary Care Provider Unavailabl e Encounter Details Date Type Department Care Team (Late st Contact Info) Description 04/03/[address] [facility] [address] [place] [address] Cyrus Carnes MD [address] [facility] [address] [place] [address] [email or web address] Diagnosis unknown (Primary Dx) Social History Tobacco Use Types [...] on file documented as of this encounter Results * (ABNORMAL) Basic metabolic panel (04/03/2021 6:03 AM EST) SODIUM 142 133 - 146 mmol/L [facility] CHLORIDE 103 96 - 108 mmol/L [facility] POTASSIUM 3.6 3.3 - 5.1 mmol/L [facility] CO2 22 21 - 35 mmol/L [facility] BUN 13 6 - 19 mg/dL [facility] CREATININE 1.00 0.5 - 1.5 mg/dL [facility] GLUCOSE 86 70 - 99 mg/dL [facility] CALCIUM 8.7 8.4 - 10.3 mg/dL [facility] EGFR 85 >59 mL/min/1.7 3m2 [facility] Comment:Estimated glomerular filtration rate calculated using the CKD-EPI refit equation. ANION GAP 21(H) 10 - 20 mmol/L [facility] Blood 04/03/2021 6:03 AM EST 04/03/2021 8:46 AM EST us Cyrus Carnes MD LAB BLOOD BKR ORDERABLES Final R esult Performing Organization Address City/[facility] Co de Phone Number [address] [address] * (ABNORMAL) CBC (04/03/2021 6:03 AM EST) WBC 6.21 4.00 - 11.00 K/uL [facility] RBC 4.26 3.90 - 5.69 M/uL [facility] HGB 12.3(L) 12.4 - 17.3 g/dL [facility] HCT 39.5 37.0 - 51.0 % [facility] PLT 213 140 - 430 K/uL [facility] MCV 92.7 78.0 - 97.0 fL [facility] MCH 28.9 25.0 - 33.0 pg [facility] MCHC 31.1(L) 32.0 - 36.0 g/dL [facility] RDW 21.1(H) 11.0 - 15.0 % [facility] MPV 11.0 8.4 - 12.8 fl [facility] NRBC 0.00 0 /100 WBCs [facility] ABSOLUTE NRBC 0.00 0 K/uL [facility] Blood 04/03/2021 6:03 AM EST 04/03/2021 8:46 AM EST us Cyrus Carnes MD LAB BLOOD BKR ORDERABLES Final R esult [facility] [address] [place] [address] documented in this encounter Visit Diagnoses Diagnosis Diagnosis unknown- Primary documented in this encounter Additional Health Concerns Infection Onset Date Last Indicated Resolved Time COVID-19 04/26/2021 04/26/2021 05/17/2021 1:24 AM EST documented as of this encounter Care Teams Food Service Representative Relationship Specialty Start Date End Date Pcp, Unknown PCP - General 05/01/13 documented as of this encounter Additional Source Comments The information contained in this document represents components of the legal health record. It is not the complete legal health record.[facility]
--- OUTSIDE RECORDS SUMMARY | 2025-03-14 19:30 | XMS_ITS | Encounter Summary ---
Author Organization [employer] Address [address] [place] [address] Care Team Providers Care Force Variation Equipment Tender Name Role Phone Rick Arcos MD Primary Care Prov ider Reason for Visit * Reason Onset Date Comments Appointment Request 06/24/2024 Encounter Details Date Type Department Care Team ([facility] st Contact Info) Description 06/24/2024 Telephone [facility] MEDICINE [address] [place] [address] Rick Arcos MD [address] [place], [place] [phone] Appointment Request Social History Tobacco Use Types [...] on filedocumented in this encounter Care Teams Force Variation Equipment Tender Relationship Specialty Start Date End Date Rick Arcos MD [address] [place] [address] PCP - General Internal Medicine 05/28/24 Rodrick Arguello 06/09/24 documented as of this encounter
--- OUTSIDE RECORDS SUMMARY | 2025-03-14 19:30 | XMS_ITS | Encounter Summary ---
Author Organization [employer] Address [address] [facility] [address] [place] [phone] Care Team Providers Care Developer Analyst Name Role Phone Rick Arcos MD Primary Care Prov ider Encounter Details Date Type Department Care Team (Late st Contact Info) Description 06/03/2024 Orders Only [facility]S [address] [place], [place] [phone] Rick Arcos MD [address] [place] [address] Social History Tobacco Use Types Packs/Day Years [...] on filedocumented in this encounter Care Teams Developer Analyst Relationship Specialty Start Date End Date Rick Arcos MD [address] [place] [address] PCP - General Internal Medicine 05/28/24 Rodrick Arguello 06/09/24 documented as of this encounter
--- OUTSIDE RECORDS SUMMARY | 2025-03-14 19:30 | XMS_ITS | Encounter Summary ---
Author Organization [employer] Address [address] [facility] [address] [place] [address] Care Team Providers Care Varnish Maker Helper Name Role Phone Rick Arcos MD Primary Care Prov ider Reason for Visit * Reason Onset Date Comments Verbal Order 07/15/2024 Encounter Details Date Type Department Care Team (Late st Contact Info) Description 07/15/2024 Telephone [facility] MEDICINE [address] [place] [address] Rick Arcos MD [address] [place] [address] Verbal Order Social History Tobacco Use Types [...] on filedocumented in this encounter Care Teams Varnish Maker Helper Relationship Specialty Start Date End Date Rick Arcos MD [address] [place] [address] PCP - General Internal Medicine 05[facility]28[facility]24 [facility] documented as of this encounter
--- OUTSIDE RECORDS SUMMARY | 2025-03-14 19:30 | XMS_ITS | Clinical Summary ---
Author Organization [facility] Address [address] [place] [address] Care Team Providers Care Valve Liner Rubber Name Role Phone [facility] Primary Care Provider [phone] Allergies Active Allergy Reactions Criticality Noted Date [...] 2 days prior to admission. Was at [facility] prior to current presentation. Assessed [...] 2 days prior to admission. Was at [facility] prior to current presentation. Assessed [...] 2 days prior to admission. Was at [facility] prior to current presentation. Assessed [...] 2 days prior to admission. Was at [facility] prior to current presentation. Assessed [...] 2 days prior to admission. Was at [facility] prior to current presentation. Assessed by addiction psych this admission who noted patient not interested in MAT for AUD. He was monitored on CIWA which was discontinued on 02/24. - outpatient PCP and AA follow up Assessment & Plan (02/26/2024 6:00 PM EST): Patient reports drinking one quart of hard liquor daily, last drink 2 days prior to admission. Was at [facility] prior to current presentation. Assessed by addiction psych this admission who noted patient not interested in MAT for AUD. He was monitored on CIWA which was discontinued on 02/24. - outpatient PCP and AA follow up Assessment & Plan (02/25/2024 7:00 PM EST): Patient reports drinking one quart of hard liquor daily, last drink 2 days prior to admission. Was at [facility] prior to current presentation. Assessed [...] He was hospitalized at [facility]] back in July 2023 and at that [...] He was hospitalized at [facility]] back in July 2023 and at that [...] He was hospitalized at [facility] back in July 2023 and at that [...] He was hospitalized at [facility] back in July 2023 and at that [...] He was hospitalized at [facility] back in July 2023 and at that [...] He was hospitalized at [facility]] back in July 2023 and at that [...] He was hospitalized at [facility]] back in July 2023 and at that [...] (03/15/2024 10:34 AM EST): Patient presented from [facility] for evaluation of right lower extremity swelling and redness. He was initiated on clindamycin at [facility] but without improvement so sent to [facility] for evaluation. L. Duplex negative [...] (03/14/2024 5:17 PM EST): Patient presented from [facility] for evaluation of right lower extremity swelling and redness. He was initiated on clindamycin at [facility] but without improvement so sent to [facility] for evaluation. L. Duplex negative [...] PM EST): Was initiated on clindamycin at [facility] but without improvement so sent to [facility] for evaluation. L. Duplex negative [...] PM EST): Was initiated on clindamycin at [facility] but without improvement so sent to [facility] for evaluation. L. Duplex negative [...] Plan (03/07/2024 1:35 PM EST): Presents from [facility] for evaluation of right lower extremity cellulitis. Was initiated on clindamycin at [facility] but without improvement so sent to [facility] for evaluation. He was sent [...] Plan (02/26/2024 6:00 PM EST): Presents from [facility] for evaluation of right lower extremity cellulitis. Was initiated on clindamycin at [facility] but without improvement so sent to [facility] for evaluation. He was sent [...] Plan (02/25/2024 7:00 PM EST): Presents from [facility] for evaluation of right lower extremity cellulitis. Was initiated on clindamycin at [facility] but without improvement so sent to [facility] for evaluation. He was sent [...] Date Smoking Tobacco: Never Smokeless Tobacco: Never [facility] Utilities Answer Date Recorded In the [...] DTaP,Tdap,and Td Vaccines (1 - Tdap) 1980 RSV Vaccine (60+ years old and patients) (1 - Risk 50-74 years 1-dose series) 2008 Zoster Vaccines (1 of 2) 2008 Alcohol/Substance Use Screening 04/08/2024 Depression Screening and Follow-Up 04/08/2024 Fall Risk Screening 04/08/2024 Health Care Proxy Review 04/08/2024 Social Drivers of Health Annual Screening 04/08/2024 Influenza Vaccine (#1) 2024 04/05/2010 COVID-19 Vaccine ( season) 2024 08/10/2021, 08/18/2020, 07/21/2020 Diabetes Screening Discontinued 03/16/2024, 1 05/15/2023, 03/13/2024, Additional history exists Hepatitis B Vaccines Aged Out No long er eligible based on patient's age to complete this topic Procedures * Due to [place] state law, this organization might not be sharing negative HIV tests. Procedure Name Priority Date/Time Associated Diagnosis Comments BASIC METABOLIC PANEL Routine 03/16/2024 6:41 AM EST from Last 3 Months or Most Recently Relevant to Health Maintenance Results * Due to [place] state law, this organization might not be sharing negative HIV tests. * (ABNORMAL) Basic metabolic panel (03/16/2024 6:41 AM EST) NA 141 135 - 145 mmol/L 03/16/2024 8:17 AM [facility] K 3.8 3.5 - 5.3 mmol/L 03/16/2024 8:17 AM [facility] Cl 104 98 - 107 mmol/L 03/16/2024 8:17 AM [facility] CO2 26 22 - 32 mmol/L 03/16/2024 8:17 AM [facility] BUN 24(H) 7 - 23 mg/dL 03/16/2024 8:17 AM [facility] Creatinine 1.10 0.60 - 1.30 mg/dL 03/16/2024 8:17 AM [facility] Glucose 81 65 - 99 mg/dL 03/16/2024 8:17 AM [facility] Calcium 8.6 8.6 - 10.5 mg/dL 03/16/2024 8:17 AM [facility] Anion Gap 11 5 - 15 03/16/2024 8:17 AM [facility] eGFR 74 >=60 mL/min/1. 73m2 03/16/2024 8:17 AM [facility] Comment:The estimated glomer ular filtration rate (eGFR) is calculated using a new formula developed by the NKF-ASN task force to eliminate race-based correction factors. The new formula uses serum/plasma creatinine, age, and gender to determine eGFR. A value below 60mls/min might indicate kidney disease and will be flagged. For additional information, see Monika hood al, Am J Kidney Dis. 2021;79(2):268- 288, A Unifying Approach for GFR estimation: Recommendations of the NKF-ASN Task Force on Reassessing the Inclusion of Race in Diagnosing Kidney Disease . Blood Structure of peripheral vein / Unknown Venipuncture / Unknown 03/16/2024 6:41 AM EST 03/16/2024 7:30 AM EST us Sridhar Hood DO LAB BLOOD ORDERABLES Marjorie kemp Result [facility] [address] [place] [address], [place] from Last 3 Months or Most Recently Relevant to Health Maintenance Additional Health Concerns Infection Onset Date Last Indicated Multidrug resistant organisms MRSA 02/22/2024 02/22/2024 Insurance MEDICARE [facility] [employer] Advance Directives Documents on File Type Date Recorded Patient Veneer Stacker Expl [facility] Proxy 03/11/2024 2:04 PM 03-11 * Full Code (Latest Code Status on File) Date Activated Date Inactivated Comments 02/22/2024 3:34 PM 03/16/2024 6:28 PM Care Teams Valve Liner Rubber Relationship Specialty Start Date End Date [address] [address] PCP - General 02/22/24
[2025-03-14 19:57] VITALS: BP 114/61; PULSE 76; RESP 20; TEMP 36.6; O2SAT 95
[2025-03-14 20:38] LABS: MANUAL DIFF FLAG NO
[2025-03-14 20:39] LABS: Hematocrit 39.8 % (42.0-52.0); Hemoglobin 12.2 g/dl (14.0-18.0); Imm Gran Abs Auto 0.06 X10*3/uL (0.00-0.03); Imm Gran Pct Auto 0.8 % (0.0-0.4); Lymphocytes Absolute Auto 1.0 X10*3/uL (1.2-4.9); Mean Corpuscular HGB Conc 30.7 g/dl (31.0-36.0); Mean Corpuscular Hemoglobin 27.8 pg (27.0-33.0); Mean Corpuscular Volume 90.7 fL (80.0-98.0); NRBC Abs Auto 0.000 X10*3/uL (0.0-0.012); NRBC Pct Auto 0.0 /100WBC (0.0-0.2); Platelet Count 287 X10*3/uL (160-400); Red Blood Count 4.39 X10*6/uL (4.60-5.80); White Blood Count 7.6 X10*3/uL (4.8-10.8)
[2025-03-14 20:40] LABS: Appearance Urine Clear; Glucose Urine UA Negative (Negative); PH 5.5 (5.0-9.0); Specific Gravity - Urine 1.010 (1.005-1.025); UMIC TRIGGER UACC YES
[2025-03-14 20:43] LABS: UACC Culture Trigger YES
[2025-03-14 20:55] LABS: Alanine Aminotransferase 39 U/L (0-40); Albumin Level 3.9 g/dL (3.5-5.0); Alkaline Phosphatase 125 U/L (39-117); Anion Gap 16 (12-20); Aspartate Amino Transferase 46 U/L (5-37); Blood Urea Nitrogen 8 mg/dL (9-16); Calcium 9.0 mg/dL (8.4-10.2); Carbon Dioxide 22 mmol/L (22-29); Chloride 102 mmol/L (96-108); Creatinine Clr Calc Pharmacy 135.1; Estimated Glomerular Filt Rate > 60; Potassium 4.5 mmol/L (3.3-5.1); Sodium 135 mmol/L (135-145); Total Protein 7.2 g/dL (6.5-8.0)
[2025-03-14 21:58] VITALS: BP 100/56; PULSE 74; RESP 16; TEMP 36.4; O2SAT 96
--- NOTE | 2025-03-15 00:01 | ED.GENADULT ---
HPI - General Adult General Chief complaint: General Medical Stated complaint: SOB, ETOH, Afib baseline, R bundle branch block Time Seen by Provider: 03/14/25 21:38 History of Present Illness HPI narrative: patient is a 64-year-old male presented today with having multitude of pain have a history of chronic venous stasis to the lower extremities. Complaining that the swelling to the right lower extremities getting worse. There is no fever no chills. Also pain to the chest. Pain to the right shoulder. Some shortness of breath some coughing. Patient is from home. Positive generalized malaise. Related Data Home Medications ?Medication ?Instructions ?Recorded ?Confirmed acetaminophen 325 mg tablet 325 mg PO QID PRN Pain 06/19/24 03/15/25 allopurinol 100 mg tablet 100 mg PO DAILY 06/19/24 11/20/24 apixaban 2.5 mg tablet (Eliquis) 2.5 mg PO BID 06/19/24 03/15/25 atorvastatin 40 mg tablet 40 mg PO BEDTIME 06/19/24 03/15/25 digoxin 250 mcg (0.25 mg) tablet 250 mcg PO DAILY 06/19/24 03/15/25 diltiazem HCl 120 mg 120 mg PO DAILY 06/19/24 03/15/25 capsule,extended release 24 hr tamsulosin 0.4 mg capsule 0.4 mg PO DAILY 06/19/24 03/15/25 vilazodone 20 mg tablet 20 mg PO DAILY 06/19/24 11/20/24 duloxetine 30 mg capsule,delayed 30 mg PO BID 09/09/24 03/15/25 release potassium chloride 20 mEq 20 meq PO DAILY 09/09/24 03/15/25 tablet,extended release furosemide 80 mg tablet 80 mg PO BID 09/30/24 03/15/25 gabapentin 800 mg tablet 800 mg PO TID 09/30/24 03/15/25 spironolactone 50 mg tablet 50 mg PO DAILY 09/30/24 03/15/25 oxycodone 5 mg tablet 10 mg PO Q4H PRN Pain 10/05/24 03/15/25 hydrocortisone 2.5 % topical cream 1 appl PA DAILY PRN Hemorrhoids 11/20/24 03/15/25 with perineal applicator venlafaxine 37.5 mg 37.5 mg PO DAILY 11/20/24 03/15/25 tablet,extended release 24 hr Previous Rx's ?Medication ?Instructions ?Recorded zolpidem 10 mg tablet 10 mg PO BEDTIME PRN Sleep #30 tabs 09/30/24 oxycodone 5 mg tablet 10 mg (2 x 5 mg) PO Q4H PRN severe 03/19/25 pain (scale score 7-10) #18 tabs Allergies Allergy/AdvReac Type Severity Reaction Status Date / Time No Known Allergies Allergy Verified 03/14/25 18:56 [facility] Past Medical History Medical History Morbid obesity Atrial fibrillation with RVR Chest pain Atrial fibrillation with RVR Sciatica ARIAN (acute kidney injury) Atrial fibrillation with RVR Alcohol withdrawal delirium Oral thrush Metabolic acidosis with increased anion gap and accumulation of organic acids Alcohol withdrawal Heart failure with left ventricular ejection fraction greater than or equal to 50 percent Incarcerated incisional hernia Atrial fibrillation with RVR Alcohol dependence Alcohol intoxication Thoracic aortic aneurysm Chronic atrial fibrillation Toenail deformity Dyslipidemia Anemia History of alcohol abuse Morbid obesity Insomnia Depression Pulmonary embolism Obesity Surgical History History of incisional hernia repair S/P cholecystectomy History of inguinal hernia repair Hx of gastric bypass Family History Family History Mother No problems noted. Father No problems noted. Family/Other Substance use disorder Social History Social History Household Members: None Household Members Other:: lives with mother Housing: Apartment Do you presently have visiting nurse or other home services: No Alcohol intake: current Alcohol intake frequency: a few times a week Alcohol type: beer Comment: pt refusing alarms Patient Tobacco Use Status: Never used Tobacco e-Cigarette/Vaping Use: Never Used Second Hand Smoke Exposure: No Substance Use Type: Other Advance Directives Date on File: 03/13/21 service: No Current occupational status: retired Cognitive needs: No Hearing needs: No Vision needs: Yes (Glasses) Physical Exam ED Vital Signs: Vital Signs - 24 hr 03/22/25 10:45 03/22/25 12:45 03/22/25 14:00 Temperature 97.8 F 99.1 F Pulse Rate 97 121 H Respiratory Rate 21 H Blood Pressure 165/74 H 126/97 H Pulse Oximetry 97 Oxygen Delivery Method Room Air 03/22/25 17:25 03/22/25 17:29 03/22/25 17:30 Temperature Pulse Rate 111 H 111 H Respiratory Rate 18 Blood Pressure 115/69 115/69 115/69 Pulse Oximetry 100 Oxygen Delivery Method Room Air 03/23/25 00:15 03/23/25 04:13 03/23/25 08:48 Temperature 97.7 F 98.1 F 97.6 F Pulse Rate 98 86 84 Respiratory Rate 18 18 18 Blood Pressure 133/74 117/72 Pulse Oximetry 94 99 95 Oxygen Delivery Method Room Air Room Air Room Air BMI result Body Mass Index 43.8 Course Course Course Narrative: n105/18/2024 1037 Violet Varela PA-C ----> Observation continues. Case management continues to follow. 03/18/2025 0855 Violet Varela PA-C ----> Observation continues. Case management continues to follow. 03/18/25 12:20 SHAE John: Urine culture positive for E coli susceptible to Macrobid, ertapenem, gentamicin. Will start patient on Macrobid. 2:47 PM 03/18/2025 (Jannette John NP): Patient complaining of sore throat and swollen lymph nodes, requesting evaluation. Mild erythema noted to posterior oropharynx, no edema or exudate, uvula midline. No significant anterior cervical lymphadenopathy. Will check strep and viral panel. 4:08 PM 03/18/2025 (Jannette John NP): Strep and viral panel negative. 8:37 AM 03/19/2025 (Jannette John NP): Physician observation continued, no overnight events reported by nursing. Vital signs stable. Notified by CM that bed at [facility] rehab has been rescinded. Patient to remain on physician observation. Time: 16:22 Date: 03/19/25 Provider: IRAM Rios Patient in physician observation for case management needs. No acute events reported.? No current issues or complaints. VS stable. Patient is pending placement at facility/pending PT/CM eval. Will continue to monitor. Time: 01:24 Date: 03/20/25 Provider: IRAM Rios Patient in physician observation for case management needs. No acute events reported overnight.? No current issues or complaints. VS stable. Patient is pending placement at facility/pending PT/CM eval. Will continue to monitor. 10:55 p.m. on March 19, the patient apparently slipped while getting up from bed, he landed on the left side, there was no head strike no loss consciousness, the patient has no pain. He is ambulatory at baseline, he has been refusing his bed alarm per nursing. 4:54 a.m., I am getting a call from nursing staff in overflow, the patient is now complaining of back pain, pain in the low back, there was no obvious sign of trauma on exam, adding an x-ray, he had oxycodone that has scheduled, he is asking for Tylenol we will order now Time: 1051 Date: 03/20/25 Provider: Karey Howell APRN Patient in physician observation for case management needs. No acute events reported overnight.? No current issues or complaints. VS stable. Patient is pending placement at facility/pending PT/CM eval. Will continue to monitor. patient reports pain in the right shoulder after a fall yesterday so will order x-ray. Nursing reports that last night he was found with several pills in his bed and they believe that he may have been holding on some of his pills and taking them later. He is mildly forgetful this morning. There was no reports of head strike with this injury last night however I will obtain a CT of the head. There is no focal neurological findings on exam. Will continue to monitor It is 12:07 a.m., the patient is requesting his Ambien. I see the note from during the day, the patient has been holding his pills, multiple pills were found in his bed, he was mildly forgetful this morning, he did sustain a fall yesterday, no injury sustained, his Ambien was discontinued. I will give him melatonin only 03/21/25 IRAM Espitia Physician observation continued. Uneventful night. Vital signs stable. No complaints from nursing overnight. Med reconciliation reviewed and done. Pending disposition. Will continue to monitor. Mandeep Young It is 836 p.m., I am coming into shift as the overflow provider, the patient is again continuing to ask for his Ambien, I am declining and adding melatonin. He is also complaining of a sore throat, adding on a viral panel I ended up giving him his dose of Ambien, he is requesting to speak with the 1 of the providers, I will do so. His viral panel was negative. Time: 15:30 Date: 03/22/25 Provider: Lisa Naranjo PA-C Nursing contact me and me that the patient is feeling nauseous this morning, with multiple episodes of diarrhea. We will repeat CBC, CMP and viral serology. - repeat labs without leukocytosis, resolving anemia, mild transaminitis with an AST of 38, ALT of 46, and alkaline phos a trace of 119 however this looks to be around patient's baseline and alkaline phosphatase has improved. - when I went down to reassess the patient, he is concerned that his oxycodone dose is wrong. Patient states that he takes 10 mg oxycodone q.i.d.. I have gone through the chart, and verified with pharmacy that this doses accurate. Patient was given 10 mg dose of oxycodone. - we will continue to monitor as we await bed search for STR needs. Nina Young PA-C it is now 10:00 p.m. on March 22, I am now the case management provider. The patient can use to complain about his pain regimen and his sleep regimen. The Ambien was discontinued, I did give him a dose last night. Again, the patient was found to be keeping pills in his bed, they are now watching him physically take his medication at the time of administration. 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 In regard to his oxycodone and was ordered incorrectly, I corrected it. This is also a chronic medication that he has been on for an indefinite period of time. Nina Young PA-C, it is 12:24 a.m., on March 23, the patient now is requesting anxiety medication, he is not prescribed anxiety medication for acute anxiety, ordering melatonin and hydroxyzine, he has already received his Ambien and his scheduled oxycodone Time: 09:04 Date: 03/23/25 Provider: IRAM Lassiter Physician observation ended at 09:04AM. Patient will be discharged to [facility] in [place] via BLS at 10:00AM this morning. Medications Administered Discontinued Medications Generic Name Dose Route Start Last Admin Trade Name Freq PRN Reason Stop Dose Admin Acetaminophen 975 mg 03/15/25 21:00 03/23/25 08:11 Acetaminophen 325 Mg Tablet PO 975 mg TID MARILEE Administration Acetaminophen 975 mg 03/20/25 04:58 03/20/25 06:10 Acetaminophen 325 Mg Tablet PO 03/20/25 04:59 975 mg ONCE ONE Administration Apixaban 2.5 mg 03/15/25 21:00 03/23/25 09:14 Apixaban 2.5 Mg Tablet PO 2.5 mg BID MARILEE Administration Atorvastatin Calcium 40 mg 03/15/25 21:00 03/22/25 19:42 Atorvastatin Calcium 40 Mg Tablet PO Not Given BEDTIME MARILEE Cephalexin HCl 500 mg 03/15/25 09:00 03/18/25 08:03 Cephalexin 500 Mg Capsule PO 03/21/25 21:01 500 mg TID MARILEE Administration Digoxin 0.25 mg 03/15/25 18:00 03/23/25 09:11 Digoxin 0.25 Mg Tablet PO 0.25 mg DAILY MARILEE Administration Protocol Diltiazem HCl 120 mg 03/15/25 18:00 03/23/25 09:12 Diltiazem Hcl Cd 120 Mg Cap.Er.Deg PO 120 mg DAILY MARILEE Administration Protocol Duloxetine HCl 30 mg 03/15/25 21:00 03/23/25 09:15 Duloxetine Hcl 30 Mg Capsule.Dr PO 30 mg BID MARILEE Administration Furosemide 80 mg 03/15/25 21:00 03/23/25 09:11 Furosemide 40 Mg Tablet PO Not Given BID MARILEE Protocol Gabapentin 800 mg 03/15/25 21:00 03/23/25 09:14 Gabapentin 400 Mg Capsule PO 800 mg TID MARILEE Administration Guaifenesin/Codeine Phosphate 10 ml 03/21/25 23:18 03/22/25 00:12 Guaifen/Codeine Sf 200/20/10ml 10 Ml Liquid PO 10 ml Q6H PRN Administration Cough Hydroxyzine HCl 50 mg 03/23/25 00:23 03/23/25 02:00 Hydroxyzine Hcl 50 Mg Tablet PO 03/23/25 00:24 Not Given ONCE ONE Ceftriaxone Sodium 1 gm/ 50 mls @ 100 mls/hr 03/15/25 00:03 03/15/25 02:07 Sodium Chloride IV 03/15/25 00:32 Infused ONCE ONE Infusion Sodium Chloride 1,000 mls @ 999 mls/hr 03/15/25 00:15 03/15/25 02:33 Ns IV 03/15/25 01:15 Infused .Q1H1M MARILEE Infusion Lorazepam 1 mg 03/16/25 01:25 03/16/25 01:33 Lorazepam 1 Mg Tablet PO 03/16/25 01:26 1 mg ONCE ONE Administration Lorazepam 1 mg 03/17/25 05:23 03/17/25 06:04 Lorazepam 1 Mg Tablet PO 03/17/25 05:24 1 mg ONCE ONE Administration Melatonin 9 mg 03/21/25 00:09 03/21/25 00:15 Melatonin 3 Mg Tablet PO 03/21/25 00:10 9 mg ONCE ONE Administration Melatonin 9 mg 03/21/25 20:34 03/21/25 22:36 Melatonin 3 Mg Tablet PO 03/21/25 20:35 Not Given ONCE ONE Melatonin 9 mg 03/23/25 00:23 03/23/25 02:00 Melatonin 3 Mg Tablet PO 03/23/25 00:24 Not Given ONCE ONE Nitrofurantoin Macrocrystals 100 mg 03/18/25 12:30 03/22/25 19:38 Nitrofurantoin Monohyd/M-Cryst 100 Mg Capsule PO 03/22/25 21:01 100 mg BID MARILEE Administration Ondansetron HCl 4 mg 03/22/25 12:36 03/22/25 13:02 Ondansetron Odt 4 Mg Tab.Rapdis TRANSLINGU 03/22/25 12:37 4 mg ONCE ONE Administration Oxycodone HCl 10 mg 03/15/25 01:05 03/15/25 01:09 Oxycodone Hcl Immed Release 5 Mg Tablet PO 03/15/25 01:06 10 mg ONCE ONE Administration Oxycodone HCl 10 mg 03/15/25 07:40 03/17/25 04:39 Oxycodone Hcl Immed Release 5 Mg Tablet PO 10 mg Q6H PRN Administration severe pain Oxycodone HCl 10 mg 03/17/25 10:29 03/22/25 06:30 Oxycodone Hcl Immed Release 5 Mg Tablet PO 10 mg Q4H PRN Administration Pain, Severe (Pain Scale 7-10) Oxycodone HCl 5 mg 03/22/25 14:14 03/22/25 14:30 Oxycodone Hcl Immed Release 5 Mg Tablet PO 03/22/25 14:15 5 mg ONCE ONE Administration Oxycodone HCl 10 mg 03/22/25 21:00 03/22/25 19:37 Oxycodone Hcl Immed Release 5 Mg Tablet PO 10 mg QID MARILEE Administration Oxycodone HCl 10 mg 03/22/25 22:01 03/23/25 08:08 Oxycodone Hcl Immed Release 5 Mg Tablet PO 10 mg Q4H PRN Administration Pain, Moderate(Pain Scale 4-6) Potassium Chloride 20 meq 03/15/25 18:00 03/23/25 09:16 Potassium Chloride Er 20 Meq Tab.Er.Prt PO Not Given DAILY MARILEE Spironolactone 50 mg 03/15/25 18:00 03/23/25 09:13 Spironolactone 25 Mg Tablet PO 50 mg DAILY MARILEE Administration Protocol Tamsulosin HCl 0.4 mg 03/15/25 18:00 03/23/25 09:13 Tamsulosin Hcl 0.4 Mg Capsule PO 0.4 mg DAILY MARILEE Administration Trazodone HCl 50 mg 03/16/25 04:20 03/16/25 04:36 Trazodone Hcl 50 Mg Tablet PO 03/16/25 04:21 50 mg ONCE ONE Administration Venlafaxine HCl 37.5 mg 03/15/25 18:15 03/23/25 09:14 Venlafaxine Hcl Er 37.5 Mg Cap.Er.24h PO 37.5 mg DAILY MARILEE Administration Zolpidem Tartrate 10 mg 03/15/25 17:59 03/19/25 20:51 Zolpidem Tartrate 5 Mg Tablet PO 10 mg BEDTIME PRN Administration Sleep Zolpidem Tartrate 10 mg 03/21/25 23:18 03/22/25 00:12 Zolpidem Tartrate 5 Mg Tablet PO 03/21/25 23:19 10 mg ONCE ONE Administration Zolpidem Tartrate 10 mg 03/22/25 22:15 03/22/25 22:08 Zolpidem Tartrate 5 Mg Tablet PO 10 mg BEDTIME MARILEE Administration Medical Decision Making Medical Decision Making [facility] Narrative: 64M PMH chronic venous stasis right greater than left, paroxysmal AFib on Eliquis, chronic diastolic CHF, history of pulmonary embolism on Eliquis, hypertension, hyperlipidemia, chronic back pain with opiate dependence, mood disorder, morbid obese presented with right lower extremity erythema. He presents today after getting evicted from his house. Patient complaining of nonspecific shoulder pain but he can move his shoulder with good range of motion. He is complaining of redness to the legs. The leg appears normal temperature to me. There is chronic venous stasis noted bilaterally. Distal pulses are intact sensation intact I doubt patient has cellulitis. Patient's white count is normal. Lactate is pending. Patient will get a set of t troponin. My interpretation patient's EKG showed a sinus pattern there is a right bundle-branch block. Grossly it is unchanged from previous EKG. Patient's alcohol right now is 38. Not intoxicated. hemoglobin is 12.2 this is approximately baseline for patient. Urine did show 2+ leukocyte esterase with greater than 50 WBCs. Cultures obtained lactate was ordered a dose of Rocephin was given. Will monitor carefully. patient's lactate is normal. White count is normal. No signs of severe sepsis. Patient got evicted from his apartment. Has no place to live. Will get care team and physical therapy to evaluate patient as he feels he can not take care of himself. Currently in stable condition. Differential Diagnosis Differential Diagnoses: The differential diagnosis associated with the presentation includes UTI, cellulitis, ACS, DVT, chronic venous stasis Admission/Observation Consideration of admission/observation: Escalation of care including admission/observation considered Consult Healthcare Provider Management of the patient was discussed with: Incident Response Consultant ( Case management and physical therapy) Lab Data [facility] Lab Attestation statement: I reviewed the patient's lab results. 03/22/25 16:26 03/22/25 16:26 Labs: Lab Results 03/14/25 03/14/25 03/15/25 Range/Units 20:30 20:31 00:41 WBC 7.6 (4.8-10.8) X10*3/uL RBC 4.39 L (4.60-5.80) X10*6/uL Hgb 12.2 L (14.0-18.0) g/dl Hct 39.8 L (42.0-52.0) % MCV 90.7 (80.0-98.0) fL MCH 27.8 (27.0-33.0) pg MCHC 30.7 L (31.0-36.0) g/dl RDW 18.2 H (11.0-16.0) % Plt Count 287 D (160-400) X10*3/uL MPV 10.0 (9.4-12.4) fL Immature Gran % (Auto) 0.8 H (0.0-0.4) % Neut % (Auto) 74.7 H (45-73) % Lymph % (Auto) 12.9 L (20-40) % Sunflower % (Auto) 8.3 (2-11) % Eos % (Auto) 2.1 (0-4) % Baso % (Auto) 1.2 (0-2) % Lymph # (Auto) 1.0 L (1.2-4.9) X10*3/uL Sunflower # (Auto) 0.6 (0.1-1.2) X10*3/uL Eos # (Auto) 0.2 (0.0-0.4) X10*3/uL Baso # (Auto) 0.1 (0.0-0.2) X10*3/uL Abs Immat Gran (auto) 0.06 H (0.00-0.03) X10*3/uL Absolute Neuts (auto) 5.7 (2.0-8.3) x10*3/uL Absolute Nucleated RBC 0.000 (0.0-0.012) X10*3/uL Nucleated RBC % (auto) 0.0 (0.0-0.2) /100WBC Smear Tech's Comments PT 13.3 (11.2-13.5) SEC INR 1.1 (0.9-1.1) Sodium 135 (135-145) mmol/L Potassium 4.5 (3.3-5.1) mmol/L Chloride 102 (96-108) mmol/L Carbon Dioxide 22 (22-29) mmol/L Anion Gap 16 (12-20) BUN 8 L (9-16) mg/dL Creatinine 0.80 (0.5-1.4) mg/dL Estim Creat Clear Calc 135.1 Estimated GFR > 60 Random Glucose 96 (60-115) mg/dL Lactic Acid 1.6 (0.5-2.0) mmol/L Calcium 9.0 (8.4-10.2) mg/dL Total Bilirubin 0.5 (0.0-1.0) mg/dL AST 46 H (5-37) U/L ALT 39 (0-40) U/L Alkaline Phosphatase 125 H (39-117) U/L Troponin I High Sens 21.3 D (<3.5-35.0) ng/L NT-Pro-B Natriuret Pep 273.0 (<300) pg/mL Total Protein 7.2 (6.5-8.0) g/dL Albumin 3.9 (3.5-5.0) g/dL Urine Color Yellow Urine Appearance Clear Urine pH 5.5 (5.0-9.0) Ur Specific Angie 1.010 (1.005-1.025) Urine Protein Negative (Neg-Trace) mg/dL Urine Glucose (UA) Negative (Negative) mg/dL Urine Ketones Negative (Negative) mg/dL Urine Blood Trace H (Negative) Urine Nitrite Negative (Negative) Ur Leukocyte Esterase Moderate (2+) H (Negative) Urine RBC 0-2 (0-2) /HPF Urine WBC >50 H (0-5) /HPF Ur Squamous Epith Cells 0-2 (0-2) /HPF Urine Bacteria Trace (None Seen) Hyaline Casts 0-2 (0-2) /LPF Ethyl Alcohol 38 mg/dL Influenza Type A (PCR) (Negative) Influenza Type B (PCR) (Negative) RSV RNA Qual (PCR) (Negative) SARS-CoV-2 RNA (RT-PCR) (Negative) S. pyogenes GrpA ELISA (Negative) 03/18/25 03/21/25 03/22/25 Range/Units 15:00 22:56 16:26 WBC 10.0 (4.8-10.8) X10*3/uL RBC 4.69 (4.60-5.80) X10*6/uL Hgb 13.0 L (14.0-18.0) g/dl Hct 43.3 (42.0-52.0) % MCV 92.3 (80.0-98.0) fL MCH 27.7 (27.0-33.0) pg MCHC 30.0 L (31.0-36.0) g/dl RDW 17.7 H (11.0-16.0) % Plt Count 191 D (160-400) X10*3/uL MPV 11.2 (9.4-12.4) fL Immature Gran % (Auto) 0.8 H (0.0-0.4) % Neut % (Auto) 92.5 H (45-73) % Lymph % (Auto) 2.3 L (20-40) % Sunflower % (Auto) 3.8 (2-11) % Eos % (Auto) 0.3 (0-4) % Baso % (Auto) 0.3 (0-2) % Lymph # (Auto) 0.2 L (1.2-4.9) X10*3/uL Sunflower # (Auto) 0.4 (0.1-1.2) X10*3/uL Eos # (Auto) 0.0 (0.0-0.4) X10*3/uL Baso # (Auto) 0.0 (0.0-0.2) X10*3/uL Abs Immat Gran (auto) 0.08 H (0.00-0.03) X10*3/uL Absolute Neuts (auto) 9.3 H (2.0-8.3) x10*3/uL Absolute Nucleated RBC 0.000 (0.0-0.012) X10*3/uL Nucleated RBC % (auto) 0.0 (0.0-0.2) /100WBC Smear Tech's Comments VERIFIED PT (11.2-13.5) SEC INR (0.9-1.1) Sodium 137 (135-145) mmol/L Potassium 4.3 (3.3-5.1) mmol/L Chloride 108 (96-108) mmol/L Carbon Dioxide 21 L (22-29) mmol/L Anion Gap 12 (12-20) BUN 17 H (9-16) mg/dL Creatinine 0.86 (0.5-1.4) mg/dL Estim Creat Clear Calc 125.6 Estimated GFR > 60 Random Glucose 83 (60-115) mg/dL Lactic Acid (0.5-2.0) mmol/L Calcium 8.7 (8.4-10.2) mg/dL Total Bilirubin 0.7 (0.0-1.0) mg/dL AST 38 H (5-37) U/L ALT 46 H (0-40) U/L Alkaline Phosphatase 119 H (39-117) U/L Troponin I High Sens (<3.5-35.0) ng/L NT-Pro-B Natriuret Pep (<300) pg/mL Total Protein 7.6 (6.5-8.0) g/dL Albumin 4.1 (3.5-5.0) g/dL Urine Color Urine Appearance Urine pH (5.0-9.0) Ur Specific Angie (1.005-1.025) Urine Protein (Neg-Trace) mg/dL Urine Glucose (UA) (Negative) mg/dL Urine Ketones (Negative) mg/dL Urine Blood (Negative) Urine Nitrite (Negative) Ur Leukocyte Esterase (Negative) Urine RBC (0-2) /HPF Urine WBC (0-5) /HPF Ur Squamous Epith Cells (0-2) /HPF Urine Bacteria (None Seen) Hyaline Casts (0-2) /LPF Ethyl Alcohol mg/dL Influenza Type A (PCR) NEGATIVE NEGATIVE NEGATIVE (Negative) Influenza Type B (PCR) NEGATIVE NEGATIVE NEGATIVE (Negative) RSV RNA Qual (PCR) NEGATIVE NEGATIVE NEGATIVE (Negative) SARS-CoV-2 RNA (RT-PCR) NEGATIVE NEGATIVE NEGATIVE (Negative) S. pyogenes GrpA ELISA Negative (Negative) External Record Review External record reviewed: Inpatient record Social Determinants Patient?s care significantly limited by Social Determinants of Health including: Inadequate housing, Low income, Problems related to primary support group and Unemployment Discharge Plan Discharge Clinical Impression: Venous stasis dermatitis of both lower extremities, Bilateral lower extremity pain, Neuropathy involving both lower extremities, Morbid obesity with BMI of 40.0-44.9, adult, RBBB (right bundle branch block), Afib, Non compliance w medication regimen, Alcohol use disorder, UTI (urinary tract infection) Patient Disposition: Xfer Inpatient Rehab Fac Transfer Details: TO: [facility], DR VAZQUEZ ACCEPTING Additional Instructions: you did not meet medical necessity for hospital admission. Please continue all at-home medications as prescribed. Follow-up with your primary care physician. If any new or worsening symptoms occur including but not limited to severe chest pain, shortness of breath, increased weakness, please seek emergent care. Prescriptions: New oxycodone 5 mg tablet 10 mg PO Q4H PRN (Reason: severe pain (scale score 7-10)) Qty: 18 0RF Rx Instructions: Partial Fill upon patient request. No Action oxycodone 5 mg Tablet 10 mg PO Q4H PRN (Reason: Pain) hydrocortisone 2.5 % Cream With Perineal Applicator 1 appl PA DAILY PRN (Reason: Hemorrhoids) venlafaxine 37.5 mg tablet extended release 24hr 37.5 mg PO DAILY diltiazem HCl 120 mg Capsule,Extended Release 24hr 120 mg PO DAILY atorvastatin 40 mg Tablet 40 mg PO BEDTIME acetaminophen 325 mg Tablet 325 mg PO QID PRN (Reason: Pain) allopurinol 100 mg Tablet 100 mg PO DAILY digoxin 250 mcg (0.25 mg) Tablet 250 mcg PO DAILY tamsulosin 0.4 mg Capsule 0.4 mg PO DAILY vilazodone 20 mg Tablet 20 mg PO DAILY Rx Instructions: must administer with a meal/food Eliquis 2.5 mg Tablet 2.5 mg PO BID duloxetine 30 mg capsule,delayed release(DR/EC) 30 mg PO BID potassium chloride 20 mEq Tablet Extended Release 20 meq PO DAILY furosemide 80 mg tablet 80 mg PO BID gabapentin 800 mg tablet 800 mg PO TID spironolactone 50 mg tablet 50 mg PO DAILY zolpidem 10 mg tablet 10 mg PO BEDTIME PRN (Reason: Sleep) Qty: 30 0RF Referrals: [facility] [Outside] Juvencio Steiner FNP-C [Primary Care Provider, Internal Medicine] Interventions: ED Discharge Assessment Last Done: 03/23/25 10:13 Discharge Date/Time: 03/23/25 10:41 Print Language: Marshallese
[2025-03-15 01:02] LABS: INTERNATIONAL NORM RATIO 1.1 (0.9-1.1); Prothrombin Time 13.3 SEC (11.2-13.5)
[2025-03-15 01:06] LABS: NT Pro B Type Natriuretic Pept 273.0 pg/mL (<300); Troponin-I High Sensitivity 21.3 ng/L (<3.5-35.0)
[2025-03-15] MEDS: oxyCODONE HCl Immed Release 5 MG TABLET 10 MG PO ×4 (01:09→20:13)
[2025-03-15 01:55] VITALS: BP 111/68; PULSE 83; RESP 18; TEMP 36.5; O2SAT 98
[2025-03-15 09:02] VITALS: BP 100/44; PULSE 77; RESP 12; TEMP 36.6; O2SAT 96
--- NOTE | 2025-03-15 09:10 | PC.NURSE ---
Assumed care of patient at 0645. Moved into hospital bed. Patient up ambulatory. Oral antibiotics administered. Awaiting CM evaluation.
[2025-03-15 10:20] VITALS: BP 100/44; PULSE 77; O2SAT 96
--- NOTE | 2025-03-15 11:06 | MHC.CM.ED ---
Addendum entered by Josie Davis RN 03/15/25 11:32: SNF REFERRALS PLACED. PATIENT STATES THAT ABOUT A WEEK AGO HE WAS DC FROM [place] AT [facility]. HE IS AWARE OF POTENTIAL BARRIER TO BED OFFER BEING THAT HE STATES THAT HE IS CURRENTLY EVICTED. CM FOLLOWING Original Note: PT IS CURRENTLY IN ROOM WITH PATIENT PERFORMING ASSESSMENT OF NEEDS. PATIENT IS AWARE THAT CM WILL RE-VISIT ONCE RECOMMENDATIONS ARE MADE.
[2025-03-15 14:11] VITALS: BP 127/78; PULSE 82; RESP 18; TEMP 36.7; O2SAT 98
--- NOTE | 2025-03-15 14:39 | PHA.MEDREC ---
Pharmacy Consult ? Medication Reconciliation Pharmacy has completed the medication reconciliation. Spoke with pt to confirm medications. Pt is a poor historian, but could answer questions when prompted. Pt could not answer if he started vilazodone and allopurinol.
--- NOTE | 2025-03-15 14:59 | MHC.CM.ED ---
Addendum entered by Josie Davis RN 03/15/25 15:32: PT EVAL UPLOADED. [facility] IS ONLY FACILITY WILL TO CONTINUE TO FOLLOW CASE MANAGEMENT AWAITING RESPONSE Original Note: MARGARITA YEPEZ, AND [facility] REVIEWING FOR BED OFFER. CM FOLLOWING.
[2025-03-15] MEDS: Potassium Chloride ER 20 MEQ TAB.ER.PRT PO (18:13)
[2025-03-15 18:14] VITALS: BP 119/89; PULSE 73
[2025-03-15] MEDS: dilTIAZem HCL CD 120 MG CAP.ER.DEG PO (18:14)
[2025-03-15] MEDS: Venlafaxine HCl ER 37.5 MG CAP.ER.24H PO (18:16)
[2025-03-15 19:20] VITALS: BP 123/72; PULSE 84; RESP 16; TEMP 36.6
--- NOTE | 2025-03-15 20:43 | PC.NURSE ---
Assumed care of pt, presents with weakness/swelling in the lower extremeities, Hx of chronic venous stasis, US was negative for DVT's, aaox4, NAD, VSS, PT is homeless, and pending bed search
[2025-03-16] VITALS (7 sets, daily range): BP systolic 107–136; BP diastolic 55–79; PULSE 60–106; RESP 16–18; TEMP 36.1–36.7; O2SAT 98–99
[2025-03-16] MEDS: oxyCODONE HCl Immed Release 5 MG TABLET 10 MG PO ×4 (04:13→22:35)
[2025-03-16] MEDS: Potassium Chloride ER 20 MEQ TAB.ER.PRT PO (08:59)
[2025-03-16] MEDS: Venlafaxine HCl ER 37.5 MG CAP.ER.24H PO (09:25)
[2025-03-16] MEDS: dilTIAZem HCL CD 120 MG CAP.ER.DEG PO (09:28)
--- NOTE | 2025-03-16 11:08 | PC.NURSE ---
Assumed care of this pt. Currently resting, in NAD. Preoccupied with rx for oxycodone which he states he is typically prescribed q6 and not q4h. Also endorsing ongoing dry cough, recently recovered from RSV. States he has been using albuterol inh at home and omitted this when speaking with pharmacy. LS clear throughout, SPO2 WNL. Will dicuss with provider. Pt calm, cooperative, a&ox4, able to make needs known.
--- NOTE | 2025-03-16 22:37 | MHC.CM.ED ---
CM met with patient to discuss discharge planning. Pt a bit of a poor historian. States he was living in an illegal basement apartment and could no longer traverse the stairs, so the agency owner felt it best for him to move. He denies being evicted. Prior to that, he was at [facility] from 11/20-03/10. For the past 4 days, he was staying with a friend, but he cannot return there. Pt admits to being an alcoholic. States he spends the day drinking beers. 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 He has been taking oxycodone for 3 years as scheduled. He fells he cannot care for himself. PT recommends STR. Pt is agreeable to STR with possible transition to LTC. Pt has standard. No bed referrals. Will place additional referrals.
[2025-03-17] MEDS: oxyCODONE HCl Immed Release 5 MG TABLET 10 MG PO ×4 (04:39→18:39)
[2025-03-17 06:11] VITALS: BP 146/82; PULSE 83; RESP 16; TEMP 36.1; O2SAT 97
[2025-03-17] MEDS: Venlafaxine HCl ER 37.5 MG CAP.ER.24H PO (08:51)
[2025-03-17] MEDS: dilTIAZem HCL CD 120 MG CAP.ER.DEG PO (08:52)
[2025-03-17] MEDS: Potassium Chloride ER 20 MEQ TAB.ER.PRT PO (08:52)
--- NOTE | 2025-03-17 12:55 | MHC.CM.ED ---
Patient remains in ER overflow. No bed offers within 25 miles. Referral broadcasted within 50 miles. Continue to monitor for d/c needs.
[2025-03-17 13:48] VITALS: BP 136/69; PULSE 70; RESP 16; TEMP 36.9; O2SAT 93
--- NOTE | 2025-03-17 15:10 | PC.NURSE ---
assumed care of patient. no c/o at this, sitting in recliner with call ortiz within reach
[2025-03-17 20:27] VITALS: BP 145/84; PULSE 82; RESP 16; TEMP 36.6; O2SAT 95
[2025-03-18] VITALS (7 sets, daily range): BP systolic 115–127; BP diastolic 52–74; PULSE 68–84; RESP 16–18; TEMP 36.1–36.6; O2SAT 94–96
[2025-03-18] MEDS: oxyCODONE HCl Immed Release 5 MG TABLET 10 MG PO ×5 (01:43→20:08)
--- NOTE | 2025-03-18 04:03 | PC.NURSE ---
* late entry* RN assumed care at 2300; pt is asleep. bed alarm on, bed in lowest level. call ortiz within reach. Will continue to monitor.
[2025-03-18] MEDS: Potassium Chloride ER 20 MEQ TAB.ER.PRT PO (08:03)
[2025-03-18] MEDS: Venlafaxine HCl ER 37.5 MG CAP.ER.24H PO (08:07)
[2025-03-18] MEDS: dilTIAZem HCL CD 120 MG CAP.ER.DEG PO (08:07)
--- NOTE | 2025-03-18 09:31 | MHC.CM.ED ---
Addendum entered by Chantal Mckinney 03/18/25 13:42: Patient will need [facility] PASRR Level 2. Level 1 already submitted by T/W. Addendum entered by Chantal Mckinney 03/18/25 12:33: [facility] in [place] is only facility willing to offer a bed at this time. Patient aware and agreeable. Original Note: Patient remains in ER overflow. The following facilities are still reviewing: [facility], [facility], [facility], [facility], [facility], [facility], [facility], [facility], [facility] and [facility]. Continue to monitor for d/c needs.
--- NOTE | 2025-03-18 14:24 | PC.NURSE ---
Late Entry: Care of Pt assumed at change of shift (0700.) Pt rests quietly for the majority of the day. Pt observed on his phone and watching TV. Medicated per MAR and PRN meds given as Pt requests. Pt reports sore throat and requests to see provider---ED provider at bedside for eval. Awaiting new orders. A&Ox3, VSS Pt feeds and ambulates independently and is able to make his needs known. Bilat lower extremities present with erythema--Pt being treated for cellulitis. Macrobid initiated today. Pt advised u/a showed leukocytes and he admits to difficulty urinating. Compression therapy ordered. Equipment for this intervention not available on unit at this time. Administration aware and working to rectify this situation. CM reports Pt will proceed to [facility] tomorrow morning.
[2025-03-18 15:18] LABS: Strep A Nucleic Acid Negative (Negative)
[2025-03-18 15:48] LABS: Resp Syncy Virus RNA Qual PCR NEGATIVE (Negative); SARS COV2 PCR INHOUSE NEGATIVE (Negative)
--- NOTE | 2025-03-18 19:27 | PC.NURSE ---
This RN assumed pt care @ 1900 Pt a&ox4, no signs of distress. Pt sitting up in bed on cell phone. Pt ambulates independently with a steady gait to restroom and back into bed. Plan of care ongoing.
--- NOTE | 2025-03-18 20:15 | PC.NURSE ---
Pt requesteing oxycodone. Pt reporting 8/10 pain. Meds administered per jun Rogelio not in pyxis, med requested Pt refused lasix and also requested ambien Plan of care ongoing.
--- NOTE | 2025-03-18 20:30 | PC.NURSE ---
Meds not in pxyis requested from pharmacy Plan of care ongoing.
--- NOTE | 2025-03-18 21:18 | PC.NURSE ---
Meds rec'd from pharmacy Pt medicated per jun Plan of care ongoing.
--- NOTE | 2025-03-18 22:13 | PC.NURSE ---
Pt ambulates to restroom and back to room/bed with a steady gait Plan of care ongoing.
--- NOTE | 2025-03-18 23:10 | PC.NURSE ---
Pt ambulates to restroom and back to room. Pt requested and given ice Plan of care ongoing.
[2025-03-19] MEDS: oxyCODONE HCl Immed Release 5 MG TABLET 10 MG PO ×6 (00:27→22:36)
--- NOTE | 2025-03-19 00:32 | PC.NURSE ---
pt medicated per JUN for pain per request
--- NOTE | 2025-03-19 06:09 | PC.NURSE ---
pt ambulating to bathroom with steady gait.
[2025-03-19 06:51] VITALS: BP 123/72; PULSE 75; RESP 16; TEMP 36.6; O2SAT 97
[2025-03-19] MEDS: Venlafaxine HCl ER 37.5 MG CAP.ER.24H PO (08:23)
[2025-03-19] MEDS: dilTIAZem HCL CD 120 MG CAP.ER.DEG PO (08:23)
[2025-03-19] MEDS: Potassium Chloride ER 20 MEQ TAB.ER.PRT PO (08:24)
--- NOTE | 2025-03-19 10:55 | MHC.CM.PN ---
[facility] HAS RESCINDED BED OFFER, PROVIDER UPDATED AND CM CONTINUES TO SEEK BED OFFER ELSEWHERE. REFERRALS OUT AND UPDATED
[2025-03-19 20:44] VITALS: BP 134/69; PULSE 83; RESP 21; TEMP 36.6; O2SAT 97
--- NOTE | 2025-03-19 21:33 | PC.NURSE ---
pt was to be d/c today however this was an issue with his placement.Pts 2100 cymbalta was not in pyxis and pt did not want RN to reach out to pharmacy & wait for med- pt wanted to rest.
--- NOTE | 2025-03-19 21:35 | MHC.CM.ED ---
Addendum entered by Glo Queen 03/19/25 21:37: Provider aware Original Note: [facility] has offered a bed. Requesting MDS MDS completed. ACP closed. Expect discharge 03/22 pending MDS approval.
--- NOTE | 2025-03-19 22:58 | PC.NURSE ---
pt had an unwitnessed fall- denies head strike. denies any pain. pt is usually ambulatory at baseline. declines bed alarm. Bed alarm now on- MD aware & RN carpenter supervisor aware.
[2025-03-20 04:00] VITALS: BP 170/89; PULSE 76; RESP 18
[2025-03-20] MEDS: oxyCODONE HCl Immed Release 5 MG TABLET 10 MG PO ×5 (04:24→21:37)
--- NOTE | 2025-03-20 04:31 | PC.NURSE ---
Patient states he does not remember what happened last night when he fell, he stated, but remembers he fell. Camera sitter placed in room for safety, as patient does not ring for assist, but stands on his own, alarming the bed. VMT room called to make aware camera 19 placed in patient room. Telesitter patient form faxed to T staff per their request.
[2025-03-20 06:00] VITALS: BP 145/86; PULSE 67; RESP 18; TEMP 37.1; O2SAT 98
[2025-03-20] MEDS: Potassium Chloride ER 20 MEQ TAB.ER.PRT PO (08:38)
--- NOTE | 2025-03-20 08:59 | PC.NURSE ---
Pt refusing bed alarm/ambulating with walker. 1 assist out of bed, camera in place for safety. Pt frequently educated on need to call for assistance when getting up d/t fall risk. Pt continues to get oob on own despite multiple attempts at educating. Yellow non-slip socks on patient, bed locked in lowest position. Call ortiz within reach, all needs met at this time.
--- NOTE | 2025-03-20 11:06 | PC.NURSE ---
Addendum entered by Deepika Moreno RN 03/20/25 15:04: Late Entry This RN attempted to medicate pt again- pt refused additional medications. Pt educated on need for medications. Meds returned in pyxis. DIETARY AIDE aware Original Note: Pt noted this morning to be significantly forgetful with poor short-term memory, repeatedly asking the same questions. Pt is also excessively drowsy, frequently falling asleep during conversation and requiring repeated verbal stimulation to remain awake. Per report from night RN, home medications were found in pt belongings, including prescribed sleep medication. Medications were removed from pt room and secured by pharmacy per protocol. SHAE Eden notified of pts forgetfulness and somnolence. This RN attempted to administer scheduled morning medications; however, pt was unable to remain awake and appropriately participate, therefore medications were held for patient safety. Will give remainder of medications when patient is more alert and able to safely swallow medications. Pt remains on fall precautions with camera at bedside for safety due to repeated attempts to get out of bed and ambulate without assistance. Call ortiz within reach, all needs met at this time.
--- NOTE | 2025-03-20 12:57 | MHC.CM.ED ---
Patient remains in ER overflow. MDS send to [facility]. [facility] also made aware of facility change. Anticipate patient will not transfer before Saturday. Continue to monitor for d/c needs.
[2025-03-20 13:41] VITALS: BP 131/71; PULSE 78; RESP 18; TEMP 36; O2SAT 98
--- NOTE | 2025-03-20 19:30 | PC.NURSE ---
Assumed care of pt, presented to the ED on 03/14/2025 for right lower extremity pain that was getting worse, pt ambulates with a steady to and from restroom, pt was found with medication in the room, which was locked up with pharmacy, pt had a unwitnessed fall yesterday, no head-strike, denies pain from fall, aaox4, nad, pt pending LTC place on Saturday03/22/2025
[2025-03-20 19:50] VITALS: BP 137/65; PULSE 100; RESP 16; TEMP 36.7; O2SAT 96
[2025-03-21] MEDS: oxyCODONE HCl Immed Release 5 MG TABLET 10 MG PO ×6 (01:49→22:14)
[2025-03-21 06:25] VITALS: BP 91/56; PULSE 85; RESP 16; TEMP 36.4
[2025-03-21 08:20] VITALS: BP 139/89; PULSE 95; RESP 18; TEMP 36.3; O2SAT 98
[2025-03-21] MEDS: Potassium Chloride ER 20 MEQ TAB.ER.PRT PO (08:25)
[2025-03-21] MEDS: dilTIAZem HCL CD 120 MG CAP.ER.DEG PO (08:26)
[2025-03-21] MEDS: Venlafaxine HCl ER 37.5 MG CAP.ER.24H PO (09:21)
[2025-03-21 14:00] VITALS: BP 97/54; PULSE 79; RESP 18; TEMP 36.1; O2SAT 95
[2025-03-21 18:00] VITALS: BP 123/78; PULSE 90
--- NOTE | 2025-03-21 19:49 | PC.NURSE ---
RN assumed care at 1900; pt stated to RN that his legs feel weaker. Pt refusing urinal, commode or walker to ambulate to the bathroom. pt has camera in the room. Bed alarm on.
--- NOTE | 2025-03-21 21:36 | MHC.EVENTN ---
Patient refusing safety alarms and safety protocols RN aware.
[2025-03-21 21:37] VITALS: BP 126/71; PULSE 93; RESP 18; TEMP 36.4; O2SAT 96
--- NOTE | 2025-03-21 22:05 | PC.NURSE ---
pt is requesting his ambien- states he hasn't been able to sleep since they d/c'd. pt states hes been on it for 20+ years. c/o of sore throat and cough. RN informed MD hernandez. put orders in for melatonin and sars swab. RN informed pt that ambien was not ordered. Pt is extremely upset, stating melatonin does nothing for me I haven't slept. I've been taking ambien for 20+ years. I want pharmacy to bring my medications. I want to speak to a doctor now! RN informed .
[2025-03-21 23:42] LABS: Resp Syncy Virus RNA Qual PCR NEGATIVE (Negative); SARS COV2 PCR INHOUSE NEGATIVE (Negative)
[2025-03-22] VITALS (8 sets, daily range): BP systolic 90–165; BP diastolic 57–97; PULSE 77–121; RESP 18–21; TEMP 36.6–37.3; O2SAT 97–100
[2025-03-22] MEDS: guaiFEN/Codeine SF 200/20/10ML 10 ML LIQUID PO (00:12)
[2025-03-22] MEDS: oxyCODONE HCl Immed Release 5 MG TABLET 10 MG PO ×3 (02:10→19:37)
--- NOTE | 2025-03-22 09:29 | PC.NURSE ---
Assumed care of patient at 0645, Pt alert and oriented x 4, calm and cooperative with care. on room air, unlabored breathing, camera at bedside for safety. Pt refusing bed alarms. Ambulating steady to bathroom. C/O nausea, refusing PO medications at this time, refusing nausea medication.
--- NOTE | 2025-03-22 12:20 | MHC.EDTECH ---
pt ambulatory to the bathroom, had diarrhea all over the toilet and floor, RN aware
--- NOTE | 2025-03-22 12:39 | HO.WOUND ---
Over Flow Rounding completed 64yr old male present in [facility] / OverFlow area - See ED notes for detailed history.? Inpatient Skin Integrity Maintenance Rounding. Patient agreeable to assessment and skin assessment. Brief chart review completed.? Of note while at bedside patient continued to c/o diffuse all over pain - direct care nurse aware provider notified pending orders. Patient was agreeable to skin assessment. Bilateral Elbows assessed to be intact and no PI noted. Bilateral heels are noted for intact blanchbale tissue with significant thickened tissue and dry heels no PI noted. Bilateral lower legs are noted for venous dermatitis. They are intact with some scattered dry stable scabs to the left blackburn area - no topical interventions needed at this time. The patient report he has had venous wounds in the past but denies concerns for his skin at this time. The coccyx and buttock were assessed - no injury noted - tissue remain intact and no s/s of MASD at this time. Patient appears to move easy and well with in bed. No topical recommendations needed at this time. Should the patient become less active and immobile would recommend SIPP activation and Preventative measures to be employed. Patient remains on hospital bed not stretcher at this time.
[2025-03-22] MEDS: oxyCODONE HCl Immed Release 5 MG TABLET PO (14:30)
[2025-03-22 16:35] LABS: Lymphocytes Absolute Auto 0.2 X10*3/uL (1.2-4.9); NRBC Abs Auto 0.000 X10*3/uL (0.0-0.012); NRBC Pct Auto 0.0 /100WBC (0.0-0.2); PLT CLUMP 1; SCAN SMEAR FLAG 1
[2025-03-22 16:37] LABS: Hematocrit 43.3 % (42.0-52.0); Hemoglobin 13.0 g/dl (14.0-18.0); Imm Gran Abs Auto 0.08 X10*3/uL (0.00-0.03); Imm Gran Pct Auto 0.8 % (0.0-0.4); MANUAL DIFF FLAG SCAN; Mean Corpuscular HGB Conc 30.0 g/dl (31.0-36.0); Mean Corpuscular Hemoglobin 27.7 pg (27.0-33.0); Mean Corpuscular Volume 92.3 fL (80.0-98.0); Red Blood Count 4.69 X10*6/uL (4.60-5.80)
[2025-03-22 16:50] LABS: Alanine Aminotransferase 46 U/L (0-40); Albumin Level 4.1 g/dL (3.5-5.0); Alkaline Phosphatase 119 U/L (39-117); Anion Gap 12 (12-20); Aspartate Amino Transferase 38 U/L (5-37); Blood Urea Nitrogen 17 mg/dL (9-16); Calcium 8.7 mg/dL (8.4-10.2); Carbon Dioxide 21 mmol/L (22-29); Chloride 108 mmol/L (96-108); Creatinine Clr Calc Pharmacy 125.6; Estimated Glomerular Filt Rate > 60; Potassium 4.3 mmol/L (3.3-5.1); Sodium 137 mmol/L (135-145); Total Protein 7.6 g/dL (6.5-8.0)
[2025-03-22 16:56] LABS: Platelet Count 191 X10*3/uL (160-400); White Blood Count 10.0 X10*3/uL (4.8-10.8)
[2025-03-22 17:18] LABS: Resp Syncy Virus RNA Qual PCR NEGATIVE (Negative); SARS COV2 PCR INHOUSE NEGATIVE (Negative)
[2025-03-22] MEDS: dilTIAZem HCL CD 120 MG CAP.ER.DEG PO (17:29)
[2025-03-22] MEDS: Venlafaxine HCl ER 37.5 MG CAP.ER.24H PO (17:29)
--- NOTE | 2025-03-22 23:30 | PC.NURSE ---
Assumed care of pt, report received from NIMESH Coleman, Pt presented initially for right leg and back pain with hx of cellulitis, pt was placement pending in [place]. PT aaox4, nad, ambulatory to restroom with steady gait,
[2025-03-23] MEDS: oxyCODONE HCl Immed Release 5 MG TABLET 10 MG PO ×3 (00:03→08:08)
[2025-03-23 00:15] VITALS: PULSE 98; RESP 18; TEMP 36.5; O2SAT 94
[2025-03-23 04:13] VITALS: BP 133/74; PULSE 86; RESP 18; TEMP 36.7; O2SAT 99
--- NOTE | 2025-03-23 08:17 | PC.NURSE ---
Pt ambulated to and from BR without assist, steady on feet. VSS NAD No complaints-asking for oxy and tylenol- given.
[2025-03-23 08:48] VITALS: BP 117/72; PULSE 84; RESP 18; TEMP 36.4; O2SAT 95
[2025-03-23 09:12] VITALS: BP 117/72; PULSE 84
[2025-03-23] MEDS: dilTIAZem HCL CD 120 MG CAP.ER.DEG PO (09:12)
[2025-03-23 09:13] VITALS: BP 117/72
[2025-03-23] MEDS: Venlafaxine HCl ER 37.5 MG CAP.ER.24H PO (09:14)
--- NOTE | 2025-03-23 09:51 | PC.NURSE ---
Report called to Khai at facility- Pt's meds returned.
--- NOTE | 2025-03-23 10:12 | PC.NURSE ---
EMS here for tx.
[2025-03-23 10:13] VITALS: BP 117/72; PULSE 84; RESP 16; TEMP 36.4
== END 2025-03-23 10:41 ==
PROVIDERS: Emergency Medicine Emergency Medical Services; Physician Assistant Medical; Registered Nurse Emergency; Emergency Provider Emergency Medicine
DX: I87.2 Venous insufficiency (chronic) (peripheral) (principal); M79.662 Pain in left lower leg; M79.661 Pain in right lower leg; G62.9 Polyneuropathy, unspecified; E66.01 Morbid (severe) obesity due to excess calories; Z68.41 Body mass index [BMI] 40.0-44.9, adult; N39.0 Urinary tract infection, site not specified; I48.91 Unspecified atrial fibrillation; I45.10 Unspecified right bundle-branch block; M25.511 Pain in right shoulder; M54.50 Low back pain, unspecified; Z91.81 History of falling; R06.02 Shortness of breath; R07.9 Chest pain, unspecified; J02.9 Acute pharyngitis, unspecified; R05.9 Cough, unspecified; F10.20 Alcohol dependence, uncomplicated; Y90.1 Blood alcohol level of 20-39 mg/100 ml; E78.00 Pure hypercholesterolemia, unspecified; K21.9 Gastro-esophageal reflux disease without esophagitis; Z91.148 Patient's other noncompliance with medication regimen for other reason; Z03.818 Encounter for observation for suspected exposure to other biological agents ruled out
CPT/HCPCS: 36415; 70450; 72100; 73030; 80053; 80307; 81001; 83605; 83880; 84484; 85025; 85610; 87040; 87086; 87088; 87186; 87637; 87651; 93005; 93971; 96361; 96365; 97162; 99285; J0696

== ENCOUNTER → 2025-03-14 18:59 | Outpatient (BNV) | payer MEDICARE, MEDICAID, SELFPAY | PROVIDERS: Emergency Provider Emergency Medicine; Visit Provider Internal Medicine Cardiovascular Disease | DX: I48.91 Unspecified atrial fibrillation (principal); I45.10 Unspecified right bundle-branch block | CPT/HCPCS: 93010 ==

== ENCOUNTER → 2025-03-15 | Outpatient (BNV) | payer MEDICARE, MEDICAID, SELFPAY | PROVIDERS: Emergency Provider Emergency Medicine; Visit Provider Radiology Diagnostic Radiology | DX: M79.661 Pain in right lower leg (principal) | CPT/HCPCS: 93971 ==

== ENCOUNTER → 2025-03-20 04:58 | Outpatient (BNV) | payer MEDICARE, MEDICAID, SELFPAY | PROVIDERS: Emergency Provider Emergency Medicine; Visit Provider Radiology Vascular & Interventional Radiology | DX: Z04.3 Encounter for examination and observation following other accident (principal); I67.2 Cerebral atherosclerosis; G31.9 Degenerative disease of nervous system, unspecified | CPT/HCPCS: 70450 ==